=== PATIENT | female | born 1950 | race Caucasian/White ===

== ENCOUNTER → 2017-07-31 14:55 | Outpatient (CLI) | payer MEDICARE, OTHER, SELFPAY ==
[2017-07-31 15:51] LABS: Absolute Lymphocyte Count 1.14 X10^3/ul (0.83-4.51); Absolute Neutrophil Count 1.9 X10^3/uL (2.0-7.7); Basophil# 0.01 X10^3/uL; Basophil% 0.3 % (0-1); Eosinophil# 0.09 X10^3/uL; Eosinophils% 2.6 % (0-5); Hematocrit 37.8 % (37-47); Hemoglobin 11.8 g/dl (12.0-15.0); Immature Platelet Fraction 3.1 % (1.0-7.9); Lymphocyte # 1.14 X10^3/ul (4.0); Lymphocyte % 33.5 % (19-41); Mean Corp Hgb Conc 31.2 g/gl (32-36); Mean Corpuscular Hgb 26.2 pg (27.0-32.0); Mean Corpuscular Volume 83.8 fL (81-99); Mean Platelet Vol. 10.5 fl (6.2-12.0); Monocyte# 0.28 X10^3/uL; Monocyte% 8.2 % (0-10); Neutrophil # 1.88 X10^3/uL (2.7-7.7); Neutrophil % 55.4 % (47-70); Platelet Count 173 K/mm3 (150-450); RBC Distribution Width CV 14.1 % (11.6-14.6); RBC Distribution Width SD 43.4 fl (35.1-43.9); RET-HE 26.1 pg (30-35); Red Blood Count 4.51 M/mm3 (4.2-5.4); Reticulocyte Count 1.19 % (0.5-1.5); White Blood Count 3.4 K/mm3 (4.4-11.0)
[2017-07-31 15:57] LABS: POSITIVE COUNT NO; POSITIVE DIFFERENTIAL NO; POSITIVE MORPHOLOGY NO
[2017-07-31 16:16] LABS: Ferritin 13 ng/mL (8-252); Iron 48 ug/dL (50-170)
[2017-08-01 10:00] LABS: Vitamin B12 308 pg/mL (211-911)
== END ==
PROVIDERS: Family Provider Family Medicine; PCP Family Medicine; Visit Provider Family Medicine
DX: D64.9 Anemia, unspecified (principal)
CPT/HCPCS: 36415; 82607; 82728; 82746; 83540; 85025; 85045

== ENCOUNTER → 2017-12-01 08:52 | Outpatient (CLI) | payer MEDICARE, OTHER, SELFPAY ==
[2017-12-01 10:39] LABS: Erythrocyte Sedimentation Rate 24 mm/hr (0-30)
[2017-12-01 10:41] LABS: Absolute Lymphocyte Count 1.07 X10^3/ul (0.83-4.51); Absolute Neutrophil Count 2.1 X10^3/uL (2.0-7.7); Basophil# 0.02 X10^3/uL; Basophil% 0.6 % (0-1); Eosinophils% 2.8 % (0-5); Hematocrit 37.9 % (37-47); Hemoglobin 11.9 g/dl (12.0-15.0); Lymphocyte # 1.07 X10^3/ul (4.0); Lymphocyte % 29.7 % (19-41); Mean Corp Hgb Conc 31.4 g/gl (32-36); Mean Corpuscular Hgb 27.1 pg (27.0-32.0); Mean Corpuscular Volume 86.3 fL (81-99); Mean Platelet Vol. 10.8 fl (6.2-12.0); Monocyte# 0.29 X10^3/uL; Monocyte% 8.1 % (0-10); Neutrophil # 2.12 X10^3/uL (2.7-7.7); Neutrophil % 58.8 % (47-70); Platelet Count 199 K/mm3 (150-450); RBC Distribution Width CV 13.3 % (11.6-14.6); RBC Distribution Width SD 42.1 fl (35.1-43.9); Red Blood Count 4.39 M/mm3 (4.2-5.4); White Blood Count 3.6 K/mm3 (4.4-11.0)
[2017-12-01 10:47] LABS: Vitamin D,25 Hydroxy 20.8 ng/mL (29.95-100.01)
[2017-12-01 10:49] LABS: POSITIVE DIFFERENTIAL NO; POSITIVE MORPHOLOGY NO
[2017-12-01 11:06] LABS: ALB/GLOB Ratio 0.8 RATIO (0.9-2.4); AST(SGOT) 18 U/L (15-37); Alanine Aminotransfer ALT/SGPT 21 U/L (13-56); Albumin, Serum 3.2 g/dL (3.2-5.0); Alkaline Phosphatase 92 U/L (45-117); Anion Gap 12 (5-15); BUN 14 mg/dL (7-18); BUN/Creat Ratio 13.9 RATIO (10-20); Calcium,Total 8.9 mg/dL (8.5-10.1); Chloride 105 mmol/L (98-107); Creatinine, Serum 1.01 mg/dL (0.55-1.02); EST Glomerular Filtration Rate 58 mL/min (>60); Est Glom Filt Rate - Afr Amer 71 mL/min (>60); Glucose 89 mg/dL (74-106); Potassium 4.1 mmol/L (3.5-5.1); Protein, Total 7.2 g/dL (6.4-8.2); Sodium Level 143 mmol/L (136-145); Thyroid Stim Hormone (TSH) 2.22 uIU/mL (0.358-3.74)
== END ==
PROVIDERS: Family Provider Family Medicine; PCP Family Medicine; Visit Provider Family Medicine
DX: M06.9 Rheumatoid arthritis, unspecified (principal); Z13.29 Encounter for screening for other suspected endocrine disorder
CPT/HCPCS: 36415; 80053; 82306; 84443; 85025; 85652; 86431

== ENCOUNTER 2018-07-04 11:16 | Emergency (ER) | payer MEDICARE, OTHER, SELFPAY ==
[2018-07-04 11:17] VITALS: BP 161/84; PULSE 53; RESP 16; TEMP 36.8; O2SAT 99; BMI 34.0
--- NOTE | 2018-07-04 11:30 | RAD_ITS ---
STUDY: X-RAY CHEST REASON FOR EXAM: Female, 68 years old. Cough. TECHNIQUE: PA and lateral views of the chest. COMPARISON: PA and lateral chest x-ray March 31, 2017. FINDINGS: Focal, transverse oriented subsegmental atelectasis or scarring seen in the anterior right midlung. The lungs are otherwise clear and expanded. There is no demonstrated pleural abnormality. Normal size heart. Normal mediastinum and genaro. Normal visualized pulmonary arteries. There is stable atherosclerotic calcification of the aortic arch. There are stable multilevel degenerative changes of the visualized thoracic spine. 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 There is no demonstrated abnormality of the visualized soft tissue structures of the upper abdomen. RAD/Chest PA and Lateral IMPRESSION: Minor subsegmental atelectasis or scarring in the anterior right midlung. No pneumonic infiltrate or CHF. Electronically Signed: Eben Recio MD at 12:40 EDT , Service support ,
--- NOTE | 2018-07-04 11:30 | EKG12_ITS ---
Test Reason : COUGH Blood Pressure : / mmHG Vent. Rate : 051 BPM Atrial Rate : 051 BPM P-R Int : 138 ms QRS Dur : 084 ms QT Int : 448 ms P-R-T Axes : 050 060 058 degrees QTc Int : 412 ms Sinus bradycardia Otherwise normal ECG Confirmed by COSME BERRIOS, KAMILLE ([id number]), image editor GRACE COHN ([id number]) on 07/06/2018 11:24:28 AM Referred By: MISAEL Confirmed By:KAMILLE AGUIAR MD
--- NOTE | 2018-07-04 11:33 | ED.VISSUMM ---
- ER Visit Summary Date of Service: 07/04/18 Chief Complaint: Cough and shortness of breath History of Present Illness: The patient is a 68 F who was seen in urgent care 2 days ago. 5 days ago she had developed fever up to 104. She had some slight congestion so was given a course of Augmentin for sinus infection. Her fever has improved. Patient states she still has significant congestion, now worse in her chest with some chest heaviness. She has nonproductive cough. Physical Examination: Blood pressure is 161/84, temperature 98.2, heart rate 53, respiratory rate 16, pulse ox 99% on room air. Patient sitting upright in bed no acute distress. She speaking full sentences. Head neck examination was TMs to be clear bilaterally. Posterior pharynx is unremarkable. She does have bilateral anterior cervical lymphadenopathy. Heart is regular rate and rhythm. Lungs sounds are diminished throughout. She has end expiratory wheezes on the right. Abdomen is soft and nontender. Test Results: Two-view chest x-ray shows minor subsegmental atelectasis or scarring in the anterior right midlung. There is no evidence of acute infiltrate or CHF. EKG is sinus bradycardia 51 bpm. Emergency Department Course and Treatment: Patient received a cycle of aerosols along with p.o. prednisone. On repeat evaluation she does feel slightly improved. On repeat auscultation she does have improved air movement. Patient will continue her course of antibiotics. We will add Mucinex and steroids. She will continue her MDI at home. Treatment Plan: [] Disposition: Discharge Impression: 1. Bronchitis 2. COPD This note was generated with [employer] dictation software. It may contain incorrect words, spelling, and punctuation that were not noted in review of the chart prior to signing ED Disposition - Plan for ED Patient: Referrals: Jd Lozano MD [Primary Care Provider] -
[2018-07-04] MEDS: Albuterol 2.5 MG/3 ML VIAL.NEB. INHALATION ×2 (11:48)
[2018-07-04] MEDS: Ipratropium/Albuterol Sulfate 3 ML AMPUL.NEB INHALATION (11:48)
[2018-07-04 12:15] VITALS: PULSE 58; RESP 18
[2018-07-04] MEDS: predniSONE 20 MG Tablet 60 MG PO (12:23)
--- NOTE | 2018-07-04 13:03 | ED.DEP ---
ED Disposition - Plan for ED Patient: Disposition: Home or Assisted Living Instructions: ED Upper Resp Infec Abx Tx Prescriptions: Prednisone 10 mg PO UD #33 tablet Guaifenesin [Mucinex] 1,200 mg PO BID PRN #10 tbmp.12hr PRN Reason: Congestion Referrals: Jd Lozano MD [Primary Care Provider] - 1 Week
[2018-07-04 13:08] VITALS: PULSE 66; RESP 17; O2SAT 96
--- NOTE | 2018-07-04 13:08 | ED.RN ---
DISCHARGE INSTRUCTIONS GIVEN TO AND REVIEWED WITH PATIENT, PATIENT DENIES QUESTIONS OR CONCERNS AND VOICES UNDERSTANDING OF DISCHARGE INSTRUCTIONS. PT AMBULATES OUT OF ROOM WITHOUT DIFFICULTY.
== END 2018-07-04 13:09 | disposition home or self-care (01) ==
PROVIDERS: Emergency Provider Emergency Medicine; Family Provider Family Medicine; PCP Family Medicine
DX: J44.9 Chronic obstructive pulmonary disease, unspecified (principal); J20.9 Acute bronchitis, unspecified; I47.1 Supraventricular tachycardia; K21.9 Gastro-esophageal reflux disease without esophagitis; Z79.899 Other long term (current) drug therapy
CPT/HCPCS: 71046; 93005; 94640; 99283

== ENCOUNTER 2019-02-26 23:22 | Emergency (ER) | payer MEDICARE, OTHER, SELFPAY ==
[2018-10-27 09:34] VITALS: BMI 34.0
[2019-02-26 23:23] VITALS: BP 128/61; PULSE 67; RESP 24; TEMP 36.7; O2SAT 96; BMI 34.1
[2019-02-26 23:39] VITALS: TEMP 36.7; O2SAT 96
--- NOTE | 2019-02-26 23:44 | RAD_ITS ---
STUDY: X-RAY CHEST REASON FOR EXAM: Female, 69 years old. Cough getting worse with shortness of breath. TECHNIQUE: Single AP portable view of the chest. COMPARISON: 07/04/2018. FINDINGS: The lungs are clear and expanded. There is no demonstrated pleural abnormality. Normal size heart. Normal mediastinum and genaro. Normal visualized pulmonary arteries. There is atherosclerotic calcification of the aortic arch with tortuosity. There are diffuse degenerative changes of the visualized thoracic spine. There is degenerative osteoarthritis of the bilateral shoulders. There is no demonstrated abnormality of the visualized soft tissue structures of the upper abdomen. RAD/Chest 1 View (Portable) IMPRESSION: No acute cardiopulmonary disease. Electronically Signed: Shireen Neil MD at 0:29 EST , Service support ,
[2019-02-26 23:54] LABS: Absolute Lymphocyte Count 1.88 X10^3/uL (0.83-4.51); Absolute Neutrophil Count 3.5 X10^3/uL (2.0-7.7); Basophil# 0.05 X10^3/uL; Basophil% 0.8 % (0-1); Eosinophil# 0.15 X10^3/uL; Eosinophils% 2.5 % (0-5); Hematocrit 38.4 % (37-47); Hemoglobin 12.4 g/dL (12.0-15.0); Lymphocyte # 1.88 X10^3/ul (4.0); Lymphocyte % 31.2 % (19-41); Mean Corp Hgb Conc 32.3 g/dL (32-36); Mean Corpuscular Hgb 28.4 pg (27.0-32.0); Mean Corpuscular Volume 87.9 fL (81-99); Mean Platelet Vol. 10.9 fl (6.2-12.0); Monocyte# 0.42 X10^3/uL; NRBC Flagged by Analyzer 0 % (0-5); Neutrophil # 3.49 X10^3/uL (2.7-7.7); Platelet Count 232 K/mm3 (150-450); RBC Distribution Width CV 13.1 % (11.6-14.6); RBC Distribution Width SD 41.9 fl (35.1-43.9); Red Blood Count 4.37 M/mm3 (4.2-5.4)
[2019-02-27 00:02] LABS: Anion Gap 6 (5-15); BUN 17 mg/dL (7-18); BUN/Creat Ratio 17.1 RATIO (10-20); Calcium,Total 8.8 mg/dL (8.5-10.1); Chloride 108 mmol/L (98-107); EST Glomerular Filtration Rate 59 mL/min (>60); Est Glom Filt Rate - Afr Amer 72 mL/min (>60); Estimated Creatinine Clearance 57.05 ml/min; Glucose 122 mg/dL (74-106); Potassium 3.8 mmol/L (3.5-5.1); Sodium Level 141 mmol/L (136-145)
[2019-02-27 00:49] VITALS: O2SAT 92
[2019-02-27 00:50] VITALS: BP 140/106; PULSE 67; RESP 16; O2SAT 97
--- NOTE | 2019-02-27 00:50 | ED.DEP ---
ED Disposition - Plan for ED Patient: Instructions: BRONCHITIS, No Antibiotic (Adult) Prescriptions: Benzonatate [Tessalon Perle] 200 mg PO TID PRN PRN #20 capsule PRN Reason: Cough Referrals: Jd Lozano MD [Primary Care Provider] -
--- NOTE | 2019-02-27 00:52 | ED.DCSUM_ITS ---
- ER Visit Summary Date of Service: 02/27/19 Chief Complaint: Cough History of Present Illness: The patient is a 69 F presenting with cough, URI symptoms. She states this has been ongoing for the past 1.5 weeks. She initially went to urgent care and was advised this is likely viral. She followed up with her primary care physician on Friday. She was put on Augmentin for sinusitis. She states she had mild diarrhea which has improved. She states tonight she was coughing so hard she had posttussive emesis. She denies chest pain. Denies fever. Denies other complaints. Physical Examination: Vitals are stable. Patient is afebrile. Alert no acute distress. HEENT exam is unremarkable. Neck is supple. Lungs are clear and equal bilaterally. Heart is regular rate and rhythm. Abdomen is soft nontender nondistended. Extremities are unremarkable. Skin is warm and dry. No focal neurologic deficit. Remainder of exam is unremarkable. Emergency Department Course and Treatment: CBC, chemistries unremarkable. Infl uenza negative. Chest x-ray shows no acute cardiopulmonary disease. With ambulation her pulse ox remains 97% on room air. Patient is given prescription for Tessalon Perles. She is advised to follow-up with her primary care physician as scheduled. Advised return to ED for worsening complaints. Disposition: Discharge home Impression: Bronchitis This note was generated with [employer] dictation software. It may contain incorrect words, spelling, and punctuation that were not noted in review of the chart prior to signing ED Disposition - Plan for ED Patient: Instructions: BRONCHITIS, No Antibiotic (Adult) Prescriptions: Benzonatate [Tessalon Perle] 200 mg PO TID PRN PRN #20 cap PRN Reason: Cough Prescription Printed Referrals: Jd Lozano MD [Primary Care Provider] -
== END 2019-02-27 01:03 | disposition home or self-care (01) ==
LOC: ED 23:51
PROVIDERS: Emergency Provider Emergency Medicine; Family Provider Family Medicine; PCP Family Medicine
DX: J40 Bronchitis, not specified as acute or chronic (principal); M06.9 Rheumatoid arthritis, unspecified; K21.9 Gastro-esophageal reflux disease without esophagitis; Z87.891 Personal history of nicotine dependence; Z86.73 Personal history of transient ischemic attack (TIA), and cerebral infarction without residual deficits
CPT/HCPCS: 71045; 80048; 85025; 87804; 99283; A4216

== ENCOUNTER → 2019-10-06 | Outpatient (CLI) | payer MEDICARE, OTHER, SELFPAY ==
[2019-10-06 10:42] LABS: Absolute Lymphocyte Count 1.09 X10^3/uL (0.83-4.51); Absolute Neutrophil Count 2.5 X10^3/uL (2.0-7.7); Basophil# 0.03 X10^3/uL; Basophil% 0.7 % (0-1); Eosinophil# 0.08 X10^3/uL; Eosinophils% 1.9 % (0-5); Hematocrit 37.8 % (37-47); Hemoglobin 11.6 g/dL (12.0-15.0); Lymphocyte # 1.09 X10^3/ul (4.0); Lymphocyte % 26.1 % (19-41); Mean Corp Hgb Conc 30.7 g/dL (32-36); Mean Corpuscular Hgb 27.4 pg (27.0-32.0); Mean Corpuscular Volume 89.2 fL (81-99); Mean Platelet Vol. 10.8 fl (6.2-12.0); Monocyte# 0.43 X10^3/uL; Monocyte% 10.3 % (0-10); NRBC Flagged by Analyzer 0 % (0-5); Neutrophil # 2.53 X10^3/uL (2.7-7.7); Neutrophil % 60.8 % (47-70); Platelet Count 193 K/mm3 (150-450); RBC Distribution Width CV 13.2 % (11.6-14.6); RBC Distribution Width SD 42.7 fl (35.1-43.9); Red Blood Count 4.24 M/mm3 (4.2-5.4); White Blood Count 4.2 K/mm3 (4.4-11.0)
[2019-10-06 10:45] LABS: Erythrocyte Sedimentation Rate 13 mm/hr (0-30)
[2019-10-06 10:55] LABS: AST(SGOT) 19 U/L (15-37); Alanine Aminotransfer ALT/SGPT 21 U/L (13-56); Albumin, Serum 3.2 g/dL (3.2-5.0); BUN 14 mg/dL (7-18); CRP < 2.90 mg/L (0.0-3.0); Creatinine, Serum 0.82 mg/dL (0.55-1.02); EST Glomerular Filtration Rate 74 mL/min (>60); Est Glom Filt Rate - Afr Amer 89 mL/min (>60); Uric Acid 6.7 mg/dL (2.6-6.0)
[2019-10-08 00:46] LABS: ANTINUCLEAR ANTIBODIES DIRECT Negative (Negative)
[2019-10-08 04:13] LABS: CCP IgG Antibodies 7 units (0-19)
== END | disposition home or self-care (01) ==
LOC: MTLAB 09:00
PROVIDERS: PCP Family Medicine; Referring Provider Internal Medicine Rheumatology; Visit Provider Internal Medicine Rheumatology
DX: M06.00 Rheumatoid arthritis without rheumatoid factor, unspecified site (principal); M15.0 Primary generalized (osteo)arthritis
CPT/HCPCS: 36415; 82040; 82565; 84450; 84460; 84520; 84550; 85025; 85652; 86038; 86140; 86200; 86431

== ENCOUNTER 2019-10-14 08:30 | Outpatient (RCR) | payer MEDICARE, OTHER, SELFPAY ==
--- NOTE | 2019-09-14 10:15 | HP.PTEVAL ---
Patient's Visit Information KIKO QUINN is a 69 year old F referred to Physical Therapy by Dr. Jd Lozano MD with a diagnosis of L POST SHLD PAIN. Date of Evaluation: 09/14/19 Physical Therapist: Monika Olea PT, Cert MDT - Visit Plan Frequency: 2-3x /Week Duration: 4-6 Weeks Plan: NO TRACTION. LEFT SCAPULAR/CERVICAL REGION US AND STM. POSTURE CORRECTION/STRENGTHENING, INSTRUCTION IN APPROPRIATE BODY MECHANICS AND ACTIVITY MODIFICATIONS. MARTHA UE ROM, STRETCHING AND STRENGTHENING. HEP INSTRUCTION TOLERATED: REP RET IN SITTING. REP RET IN LYING. SCAP SQUEEZES. DEEP NECK FLEXOR LIFT. PRONE W'S. UE WALL SLIDES. PRONE ROWS. UE TBAND WALL WALKS. ANTERIOR/MIDDLE SCALENE STRETCH. UPPER TRAP STRETCH. LEVATOR SCAPULAE STRETCH. CHEST/PEC MAJOR AND MINOR STRETCH - Subjective Diagnosis: L POST SHLD PAIN, L AC JT TENDERNESS, H/O RA, NO TRAUMA. 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 GOING BACK FRIDAY FOR ONE DAY A WEEK TO SEE HOW IT GOES. LIKES TO KNIT. Disability: NO. Present symptoms: PAIN UNDER THE SHOULDER BLADE ON THE LEFT. PATIENT DENIES LEFT UE NUMBNESS AND TINGLING. Present since: STARTED ABOUT A WEEK AGO. Pain Scale: Worst - 6/10 Least - 0/10. Currently: 0/10. Commenced as a result of: WOKE UP WITH IT Friday09/05/19. Symptoms at onset: LEFT SHOULDER BLADE. AT ONSET THE PAIN WAS SO BAD IT TOOK HER BREATH AWAY. Worse: LYING ON LEFT SIDE. Better: CHANGE OF POSITION. Disturbed sleep: YES. Previous history/Previous treatment: UNREMARKABLE. This episode: UNREMARKABLE. Dizziness: NO. Tinnitis: NO. Nausea: NO. Shortness of Breath: NO. Difficulty Swollowing: NO. Gait: NORMAL. RA. USES CANE NEEDED. NO NEW CHANGES TO GAIT. Accidents: NO. Unexplained weight loss: NO. Imaging: NO. PMH/Recent major surgery: RA, IRREGULAR HEART BEAT, ACID REFLUX - Objective Sitting Posture/Standing Posture: POOR. FH, RS'S, INCREASED KYPHOSIS. Active Correction of posture: NE. Other Observations: INDEP GAIT INTO PT WITHOUT ANY ASSISTIVE DEVICES. PATIENT IS PLEASANT AND COOPERATIVE TO WORK WITH. Motor deficit: MARTHA UE'S GROSSLY 5/5 WITH MMT'ING EXCEPT MARTHA SCAPULAR MUSCULATURE 4-/5. RIGHT HANDED WITH MARTHA INSURANCE LOSS CONTROL SURVEYOR STRENGTH 25 LBS. Sensory deficit: MARTHA UE LIGHT TOUCH SENSATION INTACT AND SYMMETRICAL. ROM deficit: MARTHA UE'S WFL. Reflexes: NT. Dural Signs: NEGATIVE MARTHA UE'S. Cervical Mvmt Loss: Flex: NIL. Pro: NIL. Ext: MOD. Ret: ABHI. RSB: NIL. LSB: NIL. R Rot: NIL. L Rot: MIN. Postural strength: POOR. Palpation: NO ACUTE TENDERNESS WITH PALPATION OF MARTHA SHOULDER, UPPER BACK OR CERVICAL REGIONS TODAY BUT SHE REPORTS IT REALLY HURT WHEN DR. LOZANO PALPATED HER SHOULDER BLADE FRIDAY. OTHER: GENTLE SEATED CERVICAL DISTRACTION TESTING - NO EFFECT. 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 PLANS TO TRY TO RETURN TO WORK FRIDAY. TREATMENT: NEUROMUSCULAR REEDUCATION - RETRAINING OF MVMT AND POSTURE FOR SITTING, LYING AND STANDING ACTIVITIES. - Goals Goal 1:: DECREASE C/O LEFT SCAPULAR PAIN Goal Time Frame: 4-6 Weeks Goal 2:: IMPROVE SLEEP FUNCTION Goal Time Frame: 4-6 Weeks Goal 3:: INSTRUCT IN PROPHYLAXIS Goal Time Frame: 4-6 Weeks - Rehabilitation Potential Rehabilitation Potential: Good - Anticipated Interventions Patient/Client Instruction: Educate patient on: Condition, Plan of Care, Risk Factors, Benefits of Fitness Program For the Purpose of:: To improve self management Therapeutic Exercise to Include: Strength training, Body mechanics, Postural training, In an aquatic setting, Scapular Strength/Stabilization For the Purpose of:: To decrease pain, To increase ROM, To improve muscle performance and motor function, To increase tolerance to activity/condition/position, To improve ability of physical actions for home/community/work/leisure Manual Therapy Techniques to Include: Soft tissue mobilization For the Purpose of:: To decrease pain, To improve nutrient delivery to tissue Cryotherapy (ice pack, ice massage): Yes Thermo therapy (hot pack): Yes Ultrasound (thermal/non thermal): Yes For the Purpose of:: To decrease pain, To improve nutrient delivery to tissue Thank you for the opportunity to evaluate your patient. For Medicare and Medicare HMO plans, please review the plan of care and approve it. It will need to be FAXED BACK to us at [phone] for Medicare purposes. For Medicare only, by signing this I certify the plan of care. Please let me know if there are questions or concerns regarding this plan of care. Physician Signature: Date:
--- NOTE | 2019-10-14 08:59 | HP.PTDCSUM ---
It has been my pleasure to treat KIKO QUINN referred by Dr. Jd Lozano MD, with the diagnosis of L POST SHLD PAIN for a total of 9 visit(s). Discharge Date: 10/14/19 Please see the following information for a summary of their discharge status. Subjective: PATIENT REPORTS SHE IS STILL DOING GOOD. NO PAIN. DOING THE HOME EX'S BUT DOES NOT HAVE A PLACE TO LIE DOWN TO DO NEW EX'S GIVEN LAST VISIT. ABLE TO SLEEP ON LEFT SIDE NOW. % Improvement: 100 Objective/Function: PATIENT WAS SEEN TODAY FOR RE-ASSESSMENT OF PROGRESS TOWARD THE SET PT GOALS AND THE NEED FOR FURTHER PHYSICAL THERAPY VS READINESS FOR DISCHARGE. UPON EXAM TODAY ALL PT GOALS HAVE BEEN MET AND PATIENT IS INDEP WITH A HEP. MODIFICATIONS TAUGHT OF NEW EX'S WITH THEM BEING PERFORMED IN STANDING WITH YELLOW TBAND. Goal 1:: DECREASE C/O LEFT SCAPULAR PAIN Goal Progress: Goal Met Goal 2:: IMPROVE SLEEP FUNCTION Goal Progress: Goal Met Goal 3:: INSTRUCT IN PROPHYLAXIS Goal Progress: Goal Met Plan: D/C. PATIENT AGREEABLE. If there are questions or concerns regarding this patient's physical therapy, please feel free to call me at [phone]. Thank you for the referral of this patient. Sincerely, Monika Olea, PT, Cert MDT
== END 2019-10-14 19:00 | disposition home or self-care (01) ==
LOC: PT 08:30
PROVIDERS: PCP Family Medicine; Referring Provider Family Medicine; Visit Provider Family Medicine
DX: M25.512 Pain in left shoulder (principal); M06.9 Rheumatoid arthritis, unspecified
CPT/HCPCS: 97110; 97112; 97162; 97164; 97530

== ENCOUNTER → 2019-11-08 08:40 | Outpatient (CLI) | payer MEDICARE, OTHER, SELFPAY ==
[2019-11-02 09:58] VITALS: BMI 34.2
[2019-11-08 09:57] LABS: Absolute Neutrophil Count 4.2 X10^3/uL (2.0-7.7); Basophil# 0.04 X10^3/uL; Basophil% 0.7 % (0-1); Eosinophil# 0.07 X10^3/uL; Eosinophils% 1.2 % (0-5); Hematocrit 36.6 % (37-47); Hemoglobin 11.2 g/dL (12.0-15.0); Lymphocyte % 15.5 % (19-41); Mean Corp Hgb Conc 30.6 g/dL (32-36); Mean Corpuscular Hgb 27.3 pg (27.0-32.0); Mean Corpuscular Volume 89.1 fL (81-99); Mean Platelet Vol. 10.9 fl (6.2-12.0); Monocyte# 0.62 X10^3/uL; Monocyte% 10.7 % (0-10); NRBC Flagged by Analyzer 0 % (0-5); Neutrophil # 4.17 X10^3/uL (2.7-7.7); Neutrophil % 71.6 % (47-70); Platelet Count 195 K/mm3 (150-450); RBC Distribution Width CV 13.4 % (11.6-14.6); RBC Distribution Width SD 43.7 fl (35.1-43.9); Red Blood Count 4.11 M/mm3 (4.2-5.4); White Blood Count 5.8 K/mm3 (4.4-11.0)
[2019-11-08 10:25] LABS: ALB/GLOB Ratio 0.8 RATIO (0.9-2.4); AST(SGOT) 15 U/L (15-37); Alanine Aminotransfer ALT/SGPT 18 U/L (13-56); Albumin, Serum 3.2 g/dL (3.2-5.0); Alkaline Phosphatase 104 U/L (45-117); Anion Gap 3 (5-15); BUN 16 mg/dL (7-18); BUN/Creat Ratio 17.5 RATIO (10-20); Calcium,Total 8.9 mg/dL (8.5-10.1); Chloride 109 mmol/L (98-107); Creatinine, Serum 0.92 mg/dL (0.55-1.02); EST Glomerular Filtration Rate 65 mL/min (>60); Est Glom Filt Rate - Afr Amer 79 mL/min (>60); Glucose 92 mg/dL (74-106); Lipase 59 U/L (73-393); Potassium 3.9 mmol/L (3.5-5.1); Protein, Total 7.2 g/dL (6.4-8.2); Sodium Level 140 mmol/L (136-145)
== END ==
PROVIDERS: PCP Family Medicine; Referring Provider Family Medicine; Visit Provider Family Medicine
DX: R10.11 Right upper quadrant pain (principal)
CPT/HCPCS: 36415; 80053; 83690; 85025; 86140

== ENCOUNTER → 2019-11-10 10:36 | Outpatient (CLI) | payer MEDICARE, OTHER, SELFPAY ==
[2019-11-02 09:58] VITALS: BMI 34.2
--- NOTE | 2019-11-10 10:39 | US_ITS ---
We are attempting to reach an attending provider to discuss findings. An addendum with communication details will be sent when the communication is complete. STUDY: ABDOMINAL ULTRASOUND - RIGHT UPPER QUADRANT REASON FOR VISIT: Female, 69 years old right upper quadrant pain. TECHNIQUE: Ultrasound evaluation of the right upper quadrant was performed with real-time and static lofton-scale imaging. TECHNICAL QUALITY: Adequate. COMPARISON: None. FINDINGS: Liver: The liver measures 14.8 cm. There is normal echogenicity of the liver. The bile ducts are within normal limits. There is hepatic color flow. The direction of portal flow is hepatopetal. There is no demonstrated mass lesion. Gallbladder: Normal distended gallbladder. The gallbladder wall measures 3 mm. There is a positive sonographic Alvarado''s sign. There is no pericholecystic fluid. There are multiple echogenic structures within the gallbladder, consistent with multiple gallstones. Common Bile Duct (C.B.D.): The common bile duct measures 6 mm. No visualized filling defects. Pancreas: Normal size of the head, body and tail of the pancreas. There is normal echogenicity of the pancreas. There is no demonstrated pancreatic mass or cyst. Right Kidney: Normal size of the right kidney. The right kidney measures 10.4 cm. Normal renal cortex. The right cortex measures 1.4 cm. There is no demonstrated renal mass or cyst. There is no right hydronephrosis. US/Abdomen Limited IMPRESSION: 1. Gallstones with positive sonographic Alvarado''s sign. The findings suggest acute cholecystitis. 2. Otherwise normal right upper quadrant abdominal ultrasound. Electronically Signed: Dat Small DO at 16:28 EDT Tel [phone], Service support ,
== END ==
PROVIDERS: PCP Family Medicine; Referring Provider Family Medicine; Visit Provider Family Medicine
DX: R10.11 Right upper quadrant pain (principal)
CPT/HCPCS: 76705

== ENCOUNTER 2019-11-10 17:30 | Emergency (ER) | payer MEDICARE, OTHER, SELFPAY ==
[2019-11-02 09:58] VITALS: BMI 34.2
[2019-11-10 17:32] VITALS: BP 177/78; PULSE 60; RESP 16; TEMP 36.6; O2SAT 98; BMI 34.5
--- NOTE | 2019-11-10 17:56 | ED.VIS.GEN ---
History of Present Illness Chief Complaint: Abn Labs Detail of Chief Complaint: Abnormal ultrasound Onset: - - Patient with no GI symptoms or food intolerance Context: - - Unknown Quality: Denies any pain or food intolerance Location: Reported pain during ultrasound of right upper quadrant Current Severity: No symptoms Maximum Severity: Not applicable Worsened by: Not applicable Relieved by: Not applicable Associated Symptoms: None Narrative: Patient is an elderly woman with an outpatient ultrasound that revealed cholelithiasis. Radiologist put in the impression suspect acute cholecystitis because she had a sonographic Alvarado sign. Patient denies any intolerance to greasy or fried foods. She denies nausea or vomiting. She does have history of GERD. She denies cardiac respiratory symptoms. She denies fever chills. She denies dark-colored urine or turning yellow. Patient did have outpatient labs. White count and differential are normal. Liver enzymes and lipase are normal. Prior similar symptoms: No Recent Illness/Hospitalization: No - Past Medical History (1) Paroxysmal supraventricular tachycardia Status: Chronic Comment: RFA 03/2003 (2) GERD (gastroesophageal reflux disease) Status: Acute Past Medical History - Allergies and Home Meds Allergies/Adverse Reactions: Allergies doxycycline Adverse Reaction (Verified 11/10/19 17:32) PT UNSURE OF REACTION Primary Care Physician: Jd Lozano MD [Primary Care Provider] - Prior records reviewed: Yes Surgical History: - - Breast biopsy bilaterally, bilateral tubal ligation, left knee arthroscopic surgery, left foot surgery. Lives: Spouse/ Significant Other Smoking Status: Former smoker Alcohol: None Drugs: None Review of Systems General: Denies: Chills, Fever, Malaise, Subjective, Sweats ENT: Denies: Rhinorrhea, Sore throat Cardiovascular: Denies: Chest pain, Palpitations Respiratory: Denies: Dyspnea, Cough, Dyspnea on exertion Gastrointestinal: Denies: Abdominal pain, Nausea, Vomiting, Diarrhea, Melena, Hematochezia Genitourinary: Denies: Dysuria, Hematuria, Frequency Musculoskeletal: Denies: Myalgias, Arthralgias, Neck pain, Back pain, Swelling, Extremity Pain, -, - Skin: Denies: Rash, Wounds Hematologic: Denies: Easy bruising Allergy: Denies: Uticaria Physical Exam Vital Signs/Narrative: Vital Signs Temp Pulse Resp BP Pulse Ox 11/10/19 17:32 97.9 F 60 16 177/78 H 98 Inital Vital Signs reviewed: Yes General: Well nourished, Well developed, Obese, No Acute Distress Head: Normocephalic, Atraumatic Eyes: Perrl, EOMI. Negative for: Pale conjunctiva, Scleral icterus ENT: Moist mucous membranes, No rhinorrhea, TM's clear Neck: Supple, Nontender, No lymphadenopathy, No JVD Cardiovascular: Regular rate, Regular rhythm, No murmurs, Normal S1, Normal S2 Respiratory: No distress, CTA bilaterally, Chest nontender Abdomen: Soft, Nontender, Nondistended, Normal bowel sounds, No masses Back: Nontender, Normal Inspection Extremities: Nontender, No edema Skin: Normal color, No rash Neurological: Alert, Oriented x3, Cranial nerves II-XII grossly intact, Normal Strength, Normal Sensation Psychological: Normal affect, Normal Mood Diagnostic/Tx/Re-eval - Medical Decision Making Patient with evidence of cholelithiasis. There is no pericholecystic fluid. Laboratory values are normal. On my examination patient does not have clinical Alvarado sign. She denies intolerance to greasy or fried foods. Will refer patient to Dr. Mervin Lu for outpatient follow-up. The ultrasound report was read in its entire tear. In the body of the note there is no mention of acute cholecystitis. This conclusion was drawn because patient had a sonographic Alvarado sign. ED Disposition - Plan for ED Patient: Disposition: Home or Assisted Living Diagnosis: Cholelithiasis Instructions: Gallstones Referrals: Jd Lozano MD [Primary Care Provider] - Mervin Lu MD [STAFF PHYSICIAN] - 1-2 Weeks Additional Instructions: We will refer to Dr. Mrevin Lu who is on-call for general surgery.
== END 2019-11-10 18:47 | disposition home or self-care (01) ==
LOC: ED 18:11
PROVIDERS: Emergency Provider Emergency Medicine; PCP Family Medicine
DX: K80.20 Calculus of gallbladder without cholecystitis without obstruction (principal); E66.9 Obesity, unspecified; R10.11 Right upper quadrant pain; Z87.891 Personal history of nicotine dependence
CPT/HCPCS: 76705; 99282

== ENCOUNTER 2019-11-25 10:42 | Day surgery (SDC) | payer MEDICARE, OTHER, SELFPAY ==
[2019-11-16 15:02] VITALS: BMI 34.5
[2019-11-25 10:56] VITALS: BP 170/74; PULSE 59; RESP 16; TEMP 36.5; O2SAT 100
[2019-11-25] MEDS: Lidocaine Jelly 2% 20 ML Syringe (URO-JET) 20 APPLIC (11:20)
== END 2019-11-25 11:20 | disposition home or self-care (01) ==
LOC: EN 10:44
PROVIDERS: PCP Family Medicine; Referring Provider Surgery; Visit Provider Surgery
PROC: F00ZJWZ Instrumental Swallowing and Oral Function Assessment using Swallowing Equipment (ICD-10-PCS; CPT 43235; principal; 2019-11-25 10:55)
DX: K21.9 Gastro-esophageal reflux disease without esophagitis (principal); Z11.59 Encounter for screening for other viral diseases; K80.10 Calculus of gallbladder with chronic cholecystitis without obstruction; Z87.891 Personal history of nicotine dependence; J44.9 Chronic obstructive pulmonary disease, unspecified; D50.9 Iron deficiency anemia, unspecified; E66.9 Obesity, unspecified; Z79.899 Other long term (current) drug therapy
CPT/HCPCS: 91010; 87635; 94799; U0003

== ENCOUNTER → 2019-12-22 07:19 | Outpatient (CLI) | payer MEDICARE, OTHER, SELFPAY ==
[2019-11-16 15:02] VITALS: BMI 34.5
--- NOTE | 2019-12-22 07:22 | BI_ITS ---
MAMMOGRAPHY - BILATERAL SCREENING REASON FOR EXAM: Female, 69 years old. Routine annual screening examination. PERTINENT HISTORY: Mother with breast cancer. Remote right stereotactic and bilateral excisional breast biopsies. TECHNIQUE: Digital bilateral breast verito (3D mammographic acquisition) in the CC and MLO projections. 2-D mediolateral oblique (MLO) and craniocaudad (CC) views of both breasts were obtained. CAD: Full Field Digital Mammography with Computer Added Detection was performed. COMPARISON: Comparison is made with prior examination dated 01/26/2016 and 03/25/2013. FINDINGS: Breast Composition: There are scattered areas of fibroglandular density. There are no dominant masses or suspicious calcifications. Stable benign-appearing bilateral axillary lymph nodes. No other significant abnormalities are identified. There has been no significant change since the prior study. BI/SCREEN MAMM (CAD) W/VERITO BILAT IMPRESSION: Stable bilateral screening mammogram. Yearly follow-up mammogram recommended. (A) ASSESSMENT CATEGORY: BIRADS Category 2: Benign. A letter regarding these results will be sent to the patient by the facility within 30 days. Approximately 10% of breast cancers are not detected by mammography. A normal mammogram should not delay biopsy of a clinically suspicious abnormality. [id number] Electronically Signed: Craig Lindo, at 8:43 EDT , Service support ,
== END ==
PROVIDERS: PCP Family Medicine; Referring Provider Family Medicine; Visit Provider Family Medicine
DX: Z12.31 Encounter for screening mammogram for malignant neoplasm of breast (principal)
CPT/HCPCS: 77063; 77067

== ENCOUNTER → 2020-04-03 08:39 | Outpatient (CLI) | payer MEDICARE, OTHER, SELFPAY ==
[2019-11-16 15:02] VITALS: BMI 34.5
[2020-04-03 09:52] LABS: Absolute Lymphocyte Count 1.14 X10^3/uL (0.83-4.51); Absolute Neutrophil Count 1.9 X10^3/uL (2.0-7.7); Basophil# 0.04 X10^3/uL; Basophil% 1.1 % (0-1); Eosinophil# 0.09 X10^3/uL; Eosinophils% 2.6 % (0-5); Hematocrit 38.2 % (37-47); Hemoglobin 11.6 g/dL (12.0-15.0); Lymphocyte # 1.14 X10^3/ul (4.0); Lymphocyte % 32.5 % (19-41); Mean Corp Hgb Conc 30.4 g/dL (32-36); Mean Corpuscular Hgb 26.3 pg (27.0-32.0); Mean Corpuscular Volume 86.6 fL (81-99); Mean Platelet Vol. 10.9 fl (6.2-12.0); Monocyte% 8.5 % (0-10); NRBC Flagged by Analyzer 0 % (0-5); Neutrophil # 1.93 X10^3/uL (2.7-7.7); Platelet Count 205 K/mm3 (150-450); RBC Distribution Width CV 13.7 % (11.6-14.6); RBC Distribution Width SD 43.2 fl (35.1-43.9); Red Blood Count 4.41 M/mm3 (4.2-5.4); White Blood Count 3.5 K/mm3 (4.4-11.0)
[2020-04-03 10:09] LABS: Vitamin D,25 Hydroxy 14.5 ng/mL
[2020-04-03 10:43] LABS: ALB/GLOB Ratio 0.8 RATIO (0.9-2.4); AST(SGOT) 17 U/L (15-37); Alanine Aminotransfer ALT/SGPT 20 U/L (13-56); Albumin, Serum 3.1 g/dL (3.2-5.0); Alkaline Phosphatase 82 U/L (45-117); Anion Gap 6 (5-15); BUN 16 mg/dL (7-18); BUN/Creat Ratio 16.9 RATIO (10-20); CRP < 2.90 mg/L (0.0-3.0); Calcium,Total 8.9 mg/dL (8.5-10.1); Chloride 108 mmol/L (98-107); Creatinine, Serum 0.95 mg/dL (0.55-1.02); EST Glomerular Filtration Rate 62 mL/min (>60); Est Glom Filt Rate - Afr Amer 76 mL/min (>60); Globulin 3.7 g/dL (2.2-4.2); Glucose 92 mg/dL (74-106); Protein, Total 6.8 g/dL (6.4-8.2); Sodium Level 140 mmol/L (136-145)
== END ==
PROVIDERS: PCP Family Medicine; Referring Provider Family Medicine; Visit Provider Family Medicine
DX: M06.9 Rheumatoid arthritis, unspecified (principal); K21.9 Gastro-esophageal reflux disease without esophagitis; E55.9 Vitamin D deficiency, unspecified
CPT/HCPCS: 36415; 80053; 82306; 83970; 85025; 86140

== ENCOUNTER → 2020-05-24 17:52 | Outpatient (CLI) | payer MEDICARE, OTHER, SELFPAY ==
[2019-11-16 15:02] VITALS: BMI 34.5
== END ==
PROVIDERS: PCP Family Medicine; Referring Provider Family Medicine; Visit Provider Family Medicine
DX: Z20.822 Contact with and (suspected) exposure to COVID-19 (principal)
CPT/HCPCS: 87635; U0005; U0003

== ENCOUNTER → 2020-05-31 10:10 | Outpatient (CLI) | payer MEDICARE, OTHER, SELFPAY ==
[2019-11-16 15:02] VITALS: BMI 34.5
[2020-06-01 07:33] LABS: SARS-COV-2 TOTAL ABS Nonreactive (Nonreactive)
== END ==
PROVIDERS: Family Medicine; PCP Family Medicine; Visit Provider Family Medicine
DX: Z20.822 Contact with and (suspected) exposure to COVID-19 (principal)
CPT/HCPCS: 36415; 86769

== ENCOUNTER 2020-07-30 11:58 | Emergency (ER) | payer MEDICARE, OTHER, SELFPAY ==
[2019-11-16 15:02] VITALS: BMI 34.5
[2020-07-30 12:00] VITALS: BP 157/81; PULSE 57; RESP 16; TEMP 36.4; O2SAT 100; BMI 35.4
[2020-07-30] MEDS: fentaNYL 100 MCG/2 ML Ampul 50 MCG IM (12:43)
[2020-07-30] MEDS: Ondansetron ODT 4 MG Tablet PO (12:43)
--- NOTE | 2020-07-30 12:47 | RAD_ITS ---
STUDY: X-RAY - LEFT KNEE REASON FOR EXAM: Female, 70 years old patient with left-sided knee pain after injury. TECHNIQUE: 4 view(s) of the knee. COMPARISON: Radiographs of the left knee dated 11/20/2010. FINDINGS: There is demineralization of the visualized distal femur. Normal visualized proximal tibia and fibula. Normal proximal tibiofibular articulation. There is no demonstrated fracture. There is mild degenerative arthrosis of the medial femorotibial compartment. There is moderate degenerative arthrosis of the lateral femorotibial compartment with moderate joint space narrowing. There is mild degenerative arthrosis of the patellofemoral articulation. There is a moderate volume joint effusion. There is soft tissue swelling. RAD/Knee 4 or More Views IMPRESSION: Moderately severe degenerative arthropathy of left knee with moderate joint effusion and soft tissue swelling. Electronically Signed: Norma Landeros MD at 13:09 EDT , Service support ,
--- NOTE | 2020-07-30 13:42 | ED.VISSUMM ---
- ER Visit Summary Date of Service: 07/30/20 Chief Complaint: Left knee pain History of Present Illness: The patient is a [address] Jd Lozano. She reports that she has left knee pain that she saw Dr. Lozano for on July 19. She was placed on a Medrol Dosepak and finished that July 25. She reports that she had stopped her meloxicam during the Medrol Dosepak and started again yesterday. However, her pain is much worse today. Patient reports that constant throbbing pain is sharp with movement. Is 10 out of 10 at worst and 1 out of 10 currently. Worsened by movement. Unrelieved by her meloxicam. She denies any numbness or weakness. She does report she had similar symptoms previously. Review of systems: General: No fever, chills, cold sweats. Cardiovascular: No chest pain, palpitations. Respiratory: No cough, shortness of breath, dyspnea on exertion. Gastrointestinal: No abdominal pain, nausea, vomiting, diarrhea, melena, or hematochezia. Genitourinary: No dysuria, frequency, hematuria. Skin: No rash. Neuro: No headache, numbness, weakness. Physical Examination: Vitals: Stable. Afebrile. General: Well-nourished and well-developed. Head: Normocephalic atraumatic. Neck: Supple, no lymphadenopathy. No JVD. Nontender. Cardiovascular: Regular rate and rhythm. No murmurs. Respiratory: No respiratory distress. Clear to auscultation bilaterally. Abdominal: Soft, nontender, nondistended, normal bowel sounds. No guarding, rebound, or peritoneal signs. Back: Nontender. Extremities: Moderate tenderness palpation to the medial side of her knee. There is a mild joint effusion. However, there is no overlying erythema or warmth to suggest a septic joint. She has no pain with short arc movements. She has pain, but no ligamentous instability with anterior/posterior drawer and medial/lateral stress. She is neuro vas intact distal to this with 1+ dorsalis pedis pulse.. Skin: Normal color, no rash. Neurologic: Alert and oriented ?3. Cranial nerves II through XII are intact. Normal strength and sensation. Psych: Normal affect. Test Results: Clinical Impression(s) from Imaging Studies Knee X-Ray 07/30/20 12:47 IMPRESSION: Moderately severe degenerative arthropathy of left knee with moderate joint effusion and soft tissue swelling. Electronically Signed: Norma Landeros MD at 13:09 EDT , Service support , Emergency Department Course and Treatment: Patient given a dose of fentanyl IM and Zofran p.o. I had a prolonged discussion of the possibility of doing a therapeutic arthrocentesis. However, she does have a history of rheumatoid arthritis and is on Plaquenil. I do not think that this is the best course of action in the emergency department. Treatment Plan: Patient be discharged prescription for Percocet and senna. Instructed to follow-up with Dr. Alan Henderson or Dr. Byron Landeros, both of whom she is seen previously for knee problems in 3 to 5 days for another exam. Return to the emergency department for any worsening symptoms. Disposition: To home in improved and stable condition. Impression: One. Left knee pain. 2. Rheumatoid arthritis on Plaquenil. This note was generated with [employer] dictation software. It may contain incorrect words, spelling, and punctuation that were not noted in review of the chart prior to signing ED Disposition - Plan for ED Patient: Disposition: Home or Assisted Living Instructions: ED Knee Pain of Uncertain Cause Prescriptions: Oxycodone HCl/Acetaminophen [Percocet 5/325] 1 tablet PO Q6H PRN PRN 3 Days #12 tab PRN Reason: Pain Prescription Printed Sennosides [Senna] 8.6 mg PO QHS #10 tablet Prescription Printed Referrals: Haider Estrada DO [STAFF PHYSICIAN] - 3-5 Days
[2020-07-30] MEDS: oxyCODONE 5 MG Tablet PO (14:04)
[2020-07-30 14:12] VITALS: BP 148/78; PULSE 98; RESP 18; O2SAT 95
== END 2020-07-30 14:14 | disposition home or self-care (01) ==
LOC: ED 13:05
PROVIDERS: Emergency Provider Emergency Medicine; PCP Family Medicine
DX: M25.562 Pain in left knee (principal); M06.9 Rheumatoid arthritis, unspecified; Z79.899 Other long term (current) drug therapy
CPT/HCPCS: 73564; 96372; 99283

== ENCOUNTER → 2021-04-02 08:35 | Outpatient (CLI) | payer MEDICARE, OTHER, SELFPAY ==
[2021-04-02 10:08] LABS: Erythrocyte Sedimentation Rate 24 mm/hr (0-30)
[2021-04-02 10:10] LABS: Absolute Lymphocyte Count 0.88 X10^3/uL (0.83-4.51); Basophil# 0.04 X10^3/uL; Basophil% 1.2 % (0-1); Eosinophil# 0.09 X10^3/uL; Eosinophils% 2.7 % (0-5); Hematocrit 36.8 % (37-47); Hemoglobin 11.1 g/dL (12.0-15.0); Lymphocyte # 0.88 X10^3/ul (0.83-4.51); Lymphocyte % 26.6 % (19-41); Mean Corp Hgb Conc 30.2 g/dL (32-36); Mean Corpuscular Hgb 25.2 pg (27.0-32.0); Mean Corpuscular Volume 83.4 fL (81-99); Mean Platelet Vol. 11.5 fl (6.2-12.0); Monocyte# 0.33 X10^3/uL; NRBC Flagged by Analyzer 0 % (0-5); Neutrophil # 1.96 X10^3/uL (2.7-7.7); Neutrophil % 59.2 % (47-70); Platelet Count 217 K/mm3 (150-450); RBC Distribution Width CV 14.1 % (11.6-14.6); Red Blood Count 4.41 M/mm3 (4.2-5.4); White Blood Count 3.3 K/mm3 (4.4-11.0)
[2021-04-02 10:17] LABS: ALB/GLOB Ratio 0.7 RATIO (0.9-2.4); AST(SGOT) 21 U/L (15-37); Alanine Aminotransfer ALT/SGPT 19 U/L (13-56); Albumin, Serum 2.9 g/dL (3.2-5.0); Alkaline Phosphatase 90 U/L (45-117); Anion Gap 5 (5-15); BUN 16 mg/dL (7-18); BUN/Creat Ratio 16.7 RATIO (10-20); Calcium,Total 9.1 mg/dL (8.5-10.1); Chloride 109 mmol/L (98-107); Creatinine, Serum 0.96 mg/dL (0.55-1.02); EST Glomerular Filtration Rate 61 mL/min (>60); Est Glom Filt Rate - Afr Amer 74 mL/min (>60); Glucose 109 mg/dL (74-106); Potassium 3.6 mmol/L (3.5-5.1); Protein, Total 6.9 g/dL (6.4-8.2); Sodium Level 142 mmol/L (136-145); Uric Acid 5.4 mg/dL (2.6-6.0)
[2021-04-02 10:26] LABS: PTHIN 88.5 pg/mL (18.4-80.1)
== END ==
PROVIDERS: PCP Family Medicine; Visit Provider Family Medicine
DX: M06.9 Rheumatoid arthritis, unspecified (principal)
CPT/HCPCS: 36415; 80053; 83970; 84550; 85025; 85652; 86140

== ENCOUNTER 2021-05-29 15:30 | Outpatient (CLI) | payer MEDICARE, OTHER, SELFPAY ==
[2021-05-29 17:58] LABS: Absolute Lymphocyte Count 1.26 X10^3/uL (0.83-4.51); Absolute Neutrophil Count 4.1 X10^3/uL (2.0-7.7); Basophil# 0.05 X10^3/uL; Basophil% 0.8 % (0-1); Eosinophils% 3.1 % (0-5); Hematocrit 38.7 % (37-47); Hemoglobin 11.9 g/dL (12.0-15.0); Lymphocyte # 1.26 X10^3/ul (0.83-4.51); Lymphocyte % 19.4 % (19-41); Mean Corp Hgb Conc 30.7 g/dL (32-36); Mean Corpuscular Volume 84.7 fL (81-99); Mean Platelet Vol. 11.1 fl (6.2-12.0); Monocyte# 0.84 X10^3/uL; Monocyte% 12.9 % (0-10); NRBC Flagged by Analyzer 0 % (0-5); Neutrophil # 4.13 X10^3/uL (2.7-7.7); Neutrophil % 63.5 % (47-70); Platelet Count 268 K/mm3 (150-450); RBC Distribution Width CV 14.5 % (11.6-14.6); RBC Distribution Width SD 44.5 fl (35.1-43.9); Red Blood Count 4.57 M/mm3 (4.2-5.4); White Blood Count 6.5 K/mm3 (4.4-11.0)
[2021-05-29 18:18] LABS: ALB/GLOB Ratio 0.8 RATIO (0.9-2.4); AST(SGOT) 18 U/L (15-37); Alanine Aminotransfer ALT/SGPT 20 U/L (13-56); Albumin, Serum 3.1 g/dL (3.2-5.0); Alkaline Phosphatase 83 U/L (45-117); Anion Gap 4 (5-15); BUN 20 mg/dL (7-18); BUN/Creat Ratio 19.4 RATIO (10-20); Calcium,Total 9.1 mg/dL (8.5-10.1); Chloride 107 mmol/L (98-107); Creatinine, Serum 1.03 mg/dL (0.55-1.02); EST Glomerular Filtration Rate 56 mL/min (>60); Est Glom Filt Rate - Afr Amer 68 mL/min (>60); Globulin 4.1 g/dL (2.2-4.2); Glucose 97 mg/dL (74-106); Potassium 4.3 mmol/L (3.5-5.1); Protein, Total 7.2 g/dL (6.4-8.2); Sodium Level 138 mmol/L (136-145); Uric Acid 5.6 mg/dL (2.6-6.0)
== END 2021-05-29 23:59 | disposition home or self-care (01) ==
LOC: MFPLAB 15:33
PROVIDERS: PCP Family Medicine; Referring Provider Family Medicine; Visit Provider Family Medicine
DX: M06.9 Rheumatoid arthritis, unspecified (principal); M10.9 Gout, unspecified
CPT/HCPCS: 36415; 80053; 84550; 85025

== ENCOUNTER 2021-06-21 11:38 | Outpatient (CLI) | payer MEDICARE, OTHER, SELFPAY ==
--- NOTE | 2021-06-21 11:42 | RAD_ITS ---
EXAM: XR Chest, 2 Views CLINICAL INDICATION: 71 years old, Female; COUGH TECHNIQUE: Frontal and lateral views of the chest. This report was created using [employer] report generation technology. COMPARISON: XR Chest dated 02/26/2019 FINDINGS: Lungs and pleural spaces: Mild bibasilar infiltrates or atelectasis. No pneumothorax. No effusion. Heart: Unremarkable. Cardiac silhouette not enlarged. Mediastinum: Central airways and mediastinal contour are unremarkable. Bones/joints: Unremarkable. Soft tissues: Unremarkable. Vasculature: Calcified aorta. RAD/Chest PA and Lateral IMPRESSION: Mild bibasilar infiltrates or atelectasis. Electronically Signed: Andrew Hassan MD at 23:42 EST ,
== END 2021-06-21 23:59 | disposition home or self-care (01) ==
LOC: MTRAD 11:40
PROVIDERS: PCP Family Medicine; Referring Provider Nurse Practitioner Family; Visit Provider Nurse Practitioner Family
DX: R05.9 Cough, unspecified (principal)
CPT/HCPCS: 71046

== ENCOUNTER 2021-06-29 12:36 | Outpatient (CLI) | payer MEDICARE, OTHER, SELFPAY ==
--- NOTE | 2021-06-29 12:43 | RAD_ITS ---
STUDY: X-RAY CHEST REASON FOR EXAM: Female, 71 years old. COUGH PAIN prior bibasilar rales now with L posterior upper rales TECHNIQUE: XR Chest 2 Views COMPARISON: 06.21.21 FINDINGS: There is no demonstrated pleural abnormality. Normal size heart. Normal mediastinum and genaro. Normal visualized pulmonary arteries. There is atherosclerotic calcification of the aortic arch with tortuosity. There are diffuse degenerative changes of the visualized thoracic spine. There is degenerative osteoarthritis of the bilateral shoulders. There is no demonstrated abnormality of the visualized soft tissue structures of the upper abdomen. RAD/Chest PA and Lateral IMPRESSION: There are no acute findings. Electronically Signed: Tyler Peng MD at 16:57 EDT ,
== END 2021-06-29 23:59 | disposition home or self-care (01) ==
LOC: MTRAD 12:37
PROVIDERS: PCP Family Medicine; Referring Provider Family Medicine; Visit Provider Family Medicine
DX: J20.9 Acute bronchitis, unspecified (principal)
CPT/HCPCS: 71046

== ENCOUNTER 2021-07-04 09:06 | Outpatient (CLI) | payer MEDICARE, OTHER, SELFPAY | END 2021-07-04 23:59 | disposition home or self-care (01) | LOC: LABSPEC 09:16 | PROVIDERS: PCP Family Medicine; Referring Provider Family Medicine; Visit Provider Family Medicine | DX: R05.3 Chronic cough (principal) | CPT/HCPCS: 87015; 87070; 87077; 87116; 87186; 87205; 87206 ==

== ENCOUNTER 2021-07-05 09:11 | Outpatient (CLI) | payer MEDICARE, OTHER, SELFPAY | END 2021-07-05 23:59 | disposition home or self-care (01) | LOC: MFPLAB 09:12 | PROVIDERS: PCP Family Medicine; Referring Provider Family Medicine; Visit Provider Family Medicine | DX: J40 Bronchitis, not specified as acute or chronic (principal); M06.9 Rheumatoid arthritis, unspecified; R05.3 Chronic cough | CPT/HCPCS: 87015; 87070; 87116; 87205; 87206 ==

== ENCOUNTER 2021-07-06 10:29 | Outpatient (CLI) | payer MEDICARE, OTHER, SELFPAY | END 2021-07-06 23:59 | disposition home or self-care (01) | LOC: LABSPEC 10:30 | PROVIDERS: PCP Family Medicine; Referring Provider Family Medicine; Visit Provider Family Medicine | DX: J40 Bronchitis, not specified as acute or chronic (principal); M06.9 Rheumatoid arthritis, unspecified; R05.3 Chronic cough | CPT/HCPCS: 87015; 87070; 87116; 87205; 87206 ==

== ENCOUNTER 2021-07-11 06:45 | Outpatient (CLI) | payer MEDICARE, OTHER, SELFPAY ==
--- NOTE | 2021-07-11 06:46 | CT_ITS ---
EXAM: CT CHEST WITHOUT INTRAVENOUS CONTRAST CLINICAL INDICATION: chronic cough. initial improvement and now worsening wheezing TECHNIQUE: Helically acquired images were obtained of the chest without intravenous contrast. DLP: 585.91 mGy-cm and CTDI: 16.[address] exam was performed using one or more of the following dose reduction techniques: automated exposure control, adjustment of the mA and/or kV according to patient size, and/or use of iterative reconstruction technique. This report was created using [employer] report generation technology. COMPARISON: Chest radiographs of 06/29/2021. FINDINGS: LUNGS AND PLEURAL SPACES: Minimal biapical pleural scarring. No pleural effusion. At the right apex is a 5.5 x 3.2 mm ovoid circumscribed noncalcified nodule. No spiculated pulmonary mass lesions are identified. No patchy pneumonia. Minimal bilateral peribronchial cuffing is present indicating bronchial wall inflammation. HEART: Mild coronary artery calcification is present. Heart size is normal. No pericardial effusion. MEDIASTINUM: Small hiatal hernia is noted, measuring 3.3 cm in diameter. Normal-sized mediastinal lymph nodes are present. No mediastinal adenopathy is noted. Esophagus is unremarkable. THYROID: Unremarkable. No thyroid lesions. BONES/JOINTS: Mid to lower thoracic degenerative spurring. No acute fracture identified. No suspicious lytic or blastic abnormality. VASCULATURE: Thoracic aorta is mildly calcific and is normal in caliber. No aneurysm or intimal calcification displacement. INTRAPERITONEAL SPACE: Gallbladder is elongated measuring 9 x 3.5 cm in diameter. A large calcified stone is seen within the gallbladder neck, with additional tiny stones in the dependent portion of the gallbladder. No gallbladder wall thickening or pericholecystic stranding is noted. Visualized liver, spleen, adrenal glands and renal upper poles are unremarkable. Pancreas is atrophic/fatty. No pneumoperitoneum is noted. CT/Chest without Contrast IMPRESSION: Minimal peribronchial cuffing, consistent with bronchitis. No pneumonia. Small hiatal hernia. Cholelithiasis. 5.5 x 3.2 mm circumscribed noncalcified nodule in the right apex; current guidelines indicate that no follow-up is required for a low risk nodule of this small size, which most likely represents a noncalcified granuloma. Electronically Signed: Cabrera Barber MD at 8:15 EDT ,
== END 2021-07-11 23:59 | disposition home or self-care (01) ==
LOC: CT 06:45
PROVIDERS: PCP Family Medicine; Visit Provider Family Medicine
DX: R05.3 Chronic cough (principal); M06.9 Rheumatoid arthritis, unspecified; J40 Bronchitis, not specified as acute or chronic
CPT/HCPCS: 71250

== ENCOUNTER → 2021-10-19 | Outpatient (CLI) | payer MEDICARE, OTHER, SELFPAY ==
[2021-10-19 15:08] LABS: Absolute Lymphocyte Count 1.05 X10^3/uL (0.83-4.51); Absolute Neutrophil Count 3.5 X10^3/uL (2.0-7.7); Basophil# 0.03 X10^3/uL; Basophil% 0.6 % (0-1); Eosinophil# 0.05 X10^3/uL; Hematocrit 37.7 % (37-47); Hemoglobin 10.9 g/dL (12.0-15.0); Lymphocyte # 1.05 X10^3/ul (0.83-4.51); Lymphocyte % 20.8 % (19-41); Mean Corp Hgb Conc 28.9 g/dL (32-36); Mean Corpuscular Hgb 24.4 pg (27.0-32.0); Mean Corpuscular Volume 84.3 fL (81-99); Monocyte# 0.41 X10^3/uL; Monocyte% 8.1 % (0-10); NRBC Flagged by Analyzer 0 % (0-5); Neutrophil % 69.3 % (47-70); Platelet Count 217 K/mm3 (150-450); RBC Distribution Width CV 14.6 % (11.6-14.6); RBC Distribution Width SD 44.4 fl (35.1-43.9); Red Blood Count 4.47 M/mm3 (4.2-5.4); White Blood Count 5.1 K/mm3 (4.4-11.0)
[2021-10-19 15:21] LABS: Erythrocyte Sedimentation Rate 34 mm/hr (0-30)
[2021-10-19 16:14] LABS: Rheumatoid Factor > 600.0 IU/mL (<15); Uric Acid 5.3 mg/dL (2.6-6.0)
[2021-10-25 17:14] LABS: CCP IgG Antibodies 5 units (0-19)
== END | disposition home or self-care (01) ==
LOC: MFPLAB 11:42
PROVIDERS: PCP Family Medicine; Visit Provider Family Medicine
DX: M25.50 Pain in unspecified joint (principal); M06.9 Rheumatoid arthritis, unspecified
CPT/HCPCS: 36415; 84550; 85025; 85652; 86140; 86200; 86431

== ENCOUNTER → 2021-11-08 | Outpatient (CLI) | payer MEDICARE, OTHER, SELFPAY ==
--- NOTE | 2021-11-08 12:38 | BI_ITS ---
MAMMOGRAPHY - BILATERAL SCREENING REASON FOR EXAM: Female, 71 years old. Routine annual screening examination. PERTINENT HISTORY: Mother with breast cancer. Prior right stereotactic breast biopsy and bilateral excisional breast biopsies. TECHNIQUE: Digital bilateral breast verito (3D mammographic acquisition) in the CC and MLO projections. 2-D mediolateral oblique (MLO) and craniocaudad (CC) views of both breasts were obtained. CAD: Full Field Digital Mammography with Computer Added Detection was performed. COMPARISON: Comparison is made with prior study dated 12/22/2019 and 01/26/2016. FINDINGS: Breast Composition: There are scattered areas of fibroglandular density. There are no dominant masses or suspicious calcifications. Stable small benign appearing bilateral axillary lymph nodes. No other significant abnormalities are identified. There has been no significant change since the prior study. BI/SCRN MAMM (CAD)W/VERITO BILAT IMPRESSION: Stable bilateral screening mammogram. Yearly follow-up mammogram recommended. (A) ASSESSMENT CATEGORY: BIRADS Category 2: Benign. A letter regarding these results will be sent to the patient by the facility within 30 days. Approximately 10% of breast cancers are not detected by mammography. A normal mammogram should not delay biopsy of a clinically suspicious abnormality. [id number] Electronically Signed: Craig Lindo MD at 13:21 EDT ,
== END | disposition home or self-care (01) ==
LOC: OPBI 12:37
PROVIDERS: PCP Family Medicine; Visit Provider Family Medicine
DX: Z12.31 Encounter for screening mammogram for malignant neoplasm of breast (principal)
CPT/HCPCS: 77063; 77067

== ENCOUNTER → 2021-11-27 | Outpatient (CLI) | payer MEDICARE, OTHER, SELFPAY ==
--- NOTE | 2021-11-27 07:40 | ECHOD_ITS ---
Reason For Study: HTN Procedure This was a 2D Doppler, Color Flow transthoracic echocardiogram. Exam performed in department. Left Ventricle Normal LV size. Left ventricular systolic function is normal. The estimated ejection fraction is 60 %. Stage 3 diastolic dysfunction. No regional wall motion abnormalities noted. Right Ventricle Normal RV size. Normal systolic function. Atria Normal left atrium. Normal right atrium. Bubble contrast study negative for right to left interatrial shunt. Mitral Valve There is mild mitral annular calcification. Tricuspid Valve Normal tricuspid valve. Aortic Valve Normal aortic valve. Pulmonic Valve Normal pulmonic valve. Great Vessels Normal aortic root. The pulmonary artery is normal size. Normal inferior vena cava. Pericardium/Pleural No pericardial effusion. Medication 22 gauge I.V. with prn adaptor inserted into right arm. Performed a rapid injection of agitated mix of 9 cc saline and 1cc air to assess for atrial septal defect. MMode/2D Measurements & Calculations LVIDd: 5.4 cm IVSd: 0.82 cm Ao root diam: 3.4 cm LVIDs: 2.9 cm LVPWd: 0.80 cm FS: 47.0 % LAV(MOD-bp): 85.0 ml LVAd ap4: 30.0 cm2 SV(MOD-sp4): 62.0 ml LAV(MOD-bp) Indexed: 39.2 ml/m2 LVLd ap4: 7.9 cm LAV(MOD-sp2): 89.8 ml EDV(MOD-sp4): 91.3 ml LAV(MOD-sp4): 75.4 ml EDV(sp4-el): 96.7 ml LVAs ap4: 14.9 cm2 LVLs ap4: 6.2 cm ESV(MOD-sp4): 29.3 ml ESV(sp4-el): 30.1 ml EF(MOD-sp4): 67.9 % EF(sp4-el): 68.8 % SV(sp4-el): 66.5 ml LA A4 area: 23.6 cm2 LA dimension(2D): 4.2 cm RA A4 area: 23.9 cm2 Time Measurements MV dec time: 0.18 sec Doppler Measurements & Calculations MV E max ion: 114.5 cm/sec Lat Peak E' Ion: 13.4 cm/sec Med Peak E' Ion: 6.5 cm/sec MV A max ion: 39.2 cm/sec E/E' lat: 8.6 E/E' med: 17.6 MV E/A: 2.9 MV V2 max: 132.8 cm/sec MV dec slope: 637.0 cm/sec2 Ao V2 max: 175.4 cm/sec MV max P.1 mmHg Ao max P.3 mmHg MV V2 mean: 46.3 cm/sec Ao V2 mean: 109.0 cm/sec MV mean P.3 mmHg Ao mean P.6 mmHg MV V2 VTI: 40.9 cm Ao V2 VTI: 40.7 cm LV V1 max: 133.4 cm/sec MR max ion: 499.9 cm/sec PA V2 max: 117.2 cm/sec LV V1 max P.1 mmHg MR max P.0 mmHg LV V1 mean P.3 mmHg LV V1 mean: 84.6 cm/sec LV V1 VTI: 32.2 cm ECHO/Echo Complete Interpretation Summary Normal LV size. Left ventricular systolic function is normal. The estimated ejection fraction is 60 %. Bubble contrast study negative for right to left interatrial shunt. Stage 3 diastolic dysfunction. Ordering Physician: Mario Taveras Referring Physician: Jd Lozano MD Performed By: Tanika Alexander RCS
== END | disposition home or self-care (01) ==
LOC: CVS 07:39
PROVIDERS: PCP Family Medicine; Visit Provider Internal Medicine Cardiovascular Disease
DX: I10 Essential (primary) hypertension (principal); I47.1 Supraventricular tachycardia
CPT/HCPCS: 93306

== ENCOUNTER → 2022-01-01 | Outpatient (CLI) | payer MEDICARE, OTHER, SELFPAY ==
[2022-01-01 15:17] LABS: Absolute Lymphocyte Count 0.77 X10^3/uL (0.83-4.51); Absolute Neutrophil Count 5.4 X10^3/uL (2.0-7.7); Basophil# 0.02 X10^3/uL; Basophil% 0.3 % (0-1); Eosinophil# 0.04 X10^3/uL; Eosinophils% 0.6 % (0-5); Hematocrit 37.7 % (37-47); Hemoglobin 11.1 g/dL (12.0-15.0); Lymphocyte # 0.77 X10^3/ul (0.83-4.51); Lymphocyte % 11.5 % (19-41); Mean Corp Hgb Conc 29.4 g/dL (32-36); Mean Corpuscular Hgb 24.5 pg (27.0-32.0); Mean Corpuscular Volume 83.2 fL (81-99); Mean Platelet Vol. 11.2 fl (6.2-12.0); Monocyte# 0.44 X10^3/uL; Monocyte% 6.6 % (0-10); NRBC Flagged by Analyzer 0 % (0-5); Neutrophil # 5.38 X10^3/uL (2.7-7.7); Neutrophil % 80.6 % (47-70); Platelet Count 202 K/mm3 (150-450); RBC Distribution Width CV 15.9 % (11.6-14.6); RBC Distribution Width SD 48.2 fl (35.1-43.9); Red Blood Count 4.53 M/mm3 (4.2-5.4); White Blood Count 6.7 K/mm3 (4.4-11.0)
[2022-01-01 15:41] LABS: ALB/GLOB Ratio 0.8 RATIO (0.9-2.4); AST(SGOT) 17 U/L (15-37); Alanine Aminotransfer ALT/SGPT 21 U/L (13-56); Albumin, Serum 3.1 g/dL (3.2-5.0); Alkaline Phosphatase 74 U/L (45-117); Anion Gap 9 (5-15); BUN 16 mg/dL (7-18); BUN/Creat Ratio 15.2 RATIO (10-20); Calcium,Total 9.1 mg/dL (8.5-10.1); Chloride 105 mmol/L (98-107); Creatinine, Serum 1.05 mg/dL (0.55-1.02); EST Glomerular Filtration Rate 55 mL/min (>60); Est Glom Filt Rate - Afr Amer 67 mL/min (>60); Glucose 101 mg/dL (74-106); Potassium 3.8 mmol/L (3.5-5.1); Protein, Total 7.1 g/dL (6.4-8.2); Sodium Level 139 mmol/L (136-145)
[2022-01-02 08:48] LABS: Hepatitis B Surface Antibody Non-Reactive; Hepatitis B Surface Antigen Non-Reactive (Nonreactive); Hepatitis C Antibody Non-Reactive (Nonreactive)
[2022-01-04 14:09] LABS: QNTFERON TB Mitogen Value 7.96 IU/mL (.); QNTFERON TB Nil Value 0 IU/mL (.); QNTFERON TB1+ Ag Value 0.01 IU/mL (.); QNTFERON TB2+ Ag Value 0 IU/mL (.)
[2022-01-04 15:15] LABS: G6PD Quant Test 327 (127-427); QNTIFERON TB Positive Criteria Negative (Negative)
[2022-01-04 19:30] LABS: ANTINUCLEAR ANTIBODIES DIRECT Negative (Negative)
== END | disposition home or self-care (01) ==
LOC: MTLAB 11:36
PROVIDERS: PCP Family Medicine; Referring Provider Internal Medicine Rheumatology; Visit Provider Internal Medicine Rheumatology
DX: M05.79 Rheumatoid arthritis with rheumatoid factor of multiple sites without organ or systems involvement (principal); K21.9 Gastro-esophageal reflux disease without esophagitis; M47.897 Other spondylosis, lumbosacral region
CPT/HCPCS: 36415; 80053; 82955; 85025; 86038; 86480; 86706; 86803; 87340

== ENCOUNTER → 2022-02-26 | Outpatient (CLI) | payer MEDICARE, OTHER, SELFPAY ==
[2022-02-26 09:53] LABS: Absolute Lymphocyte Count 1.61 X10^3/uL (0.83-4.51); Absolute Neutrophil Count 2.3 X10^3/uL (2.0-7.7); Basophil# 0.04 X10^3/uL; Basophil% 0.9 % (0-1); Eosinophil# 0.04 X10^3/uL; Eosinophils% 0.9 % (0-5); Hemoglobin 11.3 g/dL (12.0-15.0); Lymphocyte # 1.61 X10^3/ul (0.83-4.51); Lymphocyte % 35.2 % (19-41); Mean Corp Hgb Conc 29.7 g/dL (32-36); Mean Corpuscular Hgb 25.4 pg (27.0-32.0); Mean Corpuscular Volume 85.4 fL (81-99); Mean Platelet Vol. 10.8 fl (6.2-12.0); Monocyte# 0.54 X10^3/uL; Monocyte% 11.8 % (0-10); NRBC Flagged by Analyzer 0 % (0-5); Neutrophil # 2.33 X10^3/uL (2.7-7.7); Neutrophil % 50.8 % (47-70); Platelet Count 239 K/mm3 (150-450); RBC Distribution Width CV 14.5 % (11.6-14.6); Red Blood Count 4.45 M/mm3 (4.2-5.4); White Blood Count 4.6 K/mm3 (4.4-11.0)
[2022-02-26 10:14] LABS: ALB/GLOB Ratio 0.8 RATIO (0.9-2.4); AST(SGOT) 17 U/L (15-37); Alanine Aminotransfer ALT/SGPT 20 U/L (13-56); Alkaline Phosphatase 55 U/L (45-117); Anion Gap 7 (5-15); BUN 16 mg/dL (7-18); BUN/Creat Ratio 16.9 RATIO (10-20); Calcium,Total 8.8 mg/dL (8.5-10.1); Chloride 107 mmol/L (98-107); Creatinine, Serum 0.94 mg/dL (0.55-1.02); EST Glomerular Filtration Rate 62 mL/min (>60); Est Glom Filt Rate - Afr Amer 75 mL/min (>60); Globulin 3.8 g/dL (2.2-4.2); Glucose 94 mg/dL (74-106); Magnesium 2.3 mg/dL (1.6-2.6); Phosphorus 2.9 mg/dL (2.5-4.9); Potassium 3.4 mmol/L (3.5-5.1); Protein, Total 6.8 g/dL (6.4-8.2); Sodium Level 140 mmol/L (136-145); Uric Acid 4.8 mg/dL (2.6-6.0)
[2022-02-26 10:21] LABS: PTHIN 71.9 pg/mL (18.4-80.1)
[2022-02-26 10:24] LABS: Vitamin D,25 Hydroxy 15.8 ng/mL
== END | disposition home or self-care (01) ==
LOC: MFPLAB 08:56
PROVIDERS: PCP Family Medicine; Referring Provider Family Medicine; Visit Provider Family Medicine
DX: N18.31 Chronic kidney disease, stage 3a (principal); M05.79 Rheumatoid arthritis with rheumatoid factor of multiple sites without organ or systems involvement; Z79.899 Other long term (current) drug therapy
CPT/HCPCS: 80053; 82306; 83735; 83970; 84100; 84550; 85025

== ENCOUNTER → 2022-04-22 | Outpatient (CLI) | payer MEDICARE, OTHER, SELFPAY ==
[2022-04-22 12:06] LABS: Absolute Lymphocyte Count 1.48 X10^3/uL (0.83-4.51); Absolute Neutrophil Count 2.9 X10^3/uL (2.0-7.7); Basophil# 0.03 X10^3/uL; Basophil% 0.6 % (0-1); Eosinophil# 0.07 X10^3/uL; Eosinophils% 1.4 % (0-5); Hematocrit 37.5 % (37-47); Hemoglobin 11.4 g/dL (12.0-15.0); Lymphocyte # 1.48 X10^3/ul (0.83-4.51); Mean Corp Hgb Conc 30.4 g/dL (32-36); Mean Corpuscular Hgb 25.7 pg (27.0-32.0); Mean Corpuscular Volume 84.5 fL (81-99); Mean Platelet Vol. 10.8 fl (6.2-12.0); Monocyte# 0.45 X10^3/uL; Monocyte% 9.1 % (0-10); NRBC Flagged by Analyzer 0 % (0-5); Neutrophil # 2.89 X10^3/uL (2.7-7.7); Neutrophil % 58.5 % (47-70); Platelet Count 238 K/mm3 (150-450); RBC Distribution Width CV 14.1 % (11.6-14.6); RBC Distribution Width SD 43.3 fl (35.1-43.9); Red Blood Count 4.44 M/mm3 (4.2-5.4); White Blood Count 4.9 K/mm3 (4.4-11.0)
[2022-04-22 12:57] LABS: AST(SGOT) 15 U/L (15-37); Alanine Aminotransfer ALT/SGPT 18 U/L (13-56); Albumin, Serum 3.3 g/dL (3.2-5.0); Alkaline Phosphatase 63 U/L (45-117); Anion Gap 7 (5-15); BUN 15 mg/dL (7-18); BUN/Creat Ratio 14.7 RATIO (10-20); Calcium,Total 9.1 mg/dL (8.5-10.1); Chloride 105 mmol/L (98-107); Creatinine, Serum 1.02 mg/dL (0.55-1.02); EST Glomerular Filtration Rate 57 mL/min (>60); Est Glom Filt Rate - Afr Amer 69 mL/min (>60); Globulin 3.3 g/dL (2.2-4.2); Glucose 96 mg/dL (74-106); Potassium 4.1 mmol/L (3.5-5.1); Protein, Total 6.6 g/dL (6.4-8.2); Sodium Level 140 mmol/L (136-145)
== END | disposition home or self-care (01) ==
PROVIDERS: PCP Family Medicine; Referring Provider Internal Medicine Rheumatology; Visit Provider Internal Medicine Rheumatology
DX: M05.79 Rheumatoid arthritis with rheumatoid factor of multiple sites without organ or systems involvement (principal); Z79.899 Other long term (current) drug therapy
CPT/HCPCS: 36415; 80053; 85025

== ENCOUNTER → 2022-06-04 | Outpatient (CLI) | payer MEDICARE, OTHER, SELFPAY ==
--- NOTE | 2022-06-04 09:56 | BD_ITS ---
STUDY: DUAL ENERGY X-RAY ABSORPTIOMETRY / DXA REASON FOR EXAM: Female, 72 years old. [id number] TECHNIQUE: Bone Mineral Density (BMD) measurements of lumbar spine and bilateral hips were obtained. COMPARISON: None. FINDINGS: Lumbar Spine (L1-L4): g/cm2 (0.784) / T-score (-2.7) / Z-score (-0.5) Findings are suggestive of osteoporosis with a high fracture risk. Left Femur Total: g/cm2 (0.818) / T-score (-1.0) / Z-score (0.5) Left Femoral Neck: g/cm2 (0.659) / T-score (-1.7) / Z-score (0.1) Right Femur Total: g/cm2 (0.855) / T-score (-0.7) / Z-score (0.8) Right Femoral Neck: g/cm2 (0.698) / T-score (-1.4) / Z-score (0.5) BD/Dexa Bone Density Study IMPRESSION: The patient is considered osteopenic as outlined below according to World Fernando Organization (WHO) criteria with a moderate fracture risk. Reference Information: The T-score is the number of standard deviations above or below the standard which is normal for young adults at their peak bone mineral density. The World Health Organization (WHO) interprets the T-scores as follows: Above -1 Normal bone density Between -1 and -2.5 Osteopenia Equal to / or below -2.5 Osteoporosis As a practical clinical guideline, osteopenia may be graded as follows: Mild -1 through -1.5 Moderate -1.6 through -2.0 Severe -2.1 through -2.4 The Z-score is the number of standard deviations above or below age-matched controls. A Z-score of less than -1.5 would be considered abnormal. References: 1. NIH Osteoporosis and Related Bone Diseases www osteo.org 2. International Society for Clinical Densitometry www iscd.org 3. National Osteoporosis Foundation www nof.org Electronically Signed: Craig Lindo MD at 9:24 EST ,
== END | disposition home or self-care (01) ==
LOC: OPBD 09:48
PROVIDERS: PCP Family Medicine; Visit Provider Nurse Practitioner Family
DX: Z13.820 Encounter for screening for osteoporosis (principal); M81.0 Age-related osteoporosis without current pathological fracture
CPT/HCPCS: 77080

== ENCOUNTER → 2022-06-12 | Outpatient (CLI) | payer MEDICARE, OTHER, SELFPAY ==
[2022-06-12 12:33] LABS: Absolute Lymphocyte Count 1.38 X10^3/uL (0.83-4.51); Absolute Neutrophil Count 2.9 X10^3/uL (2.0-7.7); Basophil# 0.04 X10^3/uL; Basophil% 0.8 % (0-1); Eosinophil# 0.03 X10^3/uL; Eosinophils% 0.6 % (0-5); Hematocrit 38.4 % (37-47); Hemoglobin 11.3 g/dL (12.0-15.0); Lymphocyte # 1.38 X10^3/ul (0.83-4.51); Lymphocyte % 28.5 % (19-41); Mean Corp Hgb Conc 29.4 g/dL (32-36); Mean Corpuscular Hgb 25.3 pg (27.0-32.0); Mean Corpuscular Volume 86.1 fL (81-99); Mean Platelet Vol. 11.4 fl (6.2-12.0); Monocyte# 0.53 X10^3/uL; Monocyte% 10.9 % (0-10); NRBC Flagged by Analyzer 0 % (0-5); Neutrophil # 2.85 X10^3/uL (2.7-7.7); Neutrophil % 58.8 % (47-70); Platelet Count 219 K/mm3 (150-450); RBC Distribution Width CV 14.6 % (11.6-14.6); RBC Distribution Width SD 45.8 fl (35.1-43.9); Red Blood Count 4.46 M/mm3 (4.2-5.4); White Blood Count 4.9 K/mm3 (4.4-11.0)
[2022-06-12 12:52] LABS: ALB/GLOB Ratio 0.8 RATIO (0.9-2.4); AST(SGOT) 15 U/L (15-37); Alanine Aminotransfer ALT/SGPT 14 U/L (13-56); Albumin, Serum 3.2 g/dL (3.2-5.0); Alkaline Phosphatase 67 U/L (45-117); Anion Gap 7 (5-15); BUN 16 mg/dL (7-18); BUN/Creat Ratio 16.8 RATIO (10-20); Calcium,Total 9.3 mg/dL (8.5-10.1); Chloride 110 mmol/L (98-107); Creatinine, Serum 0.95 mg/dL (0.55-1.02); EST Glomerular Filtration Rate 62 mL/min (>60); Est Glom Filt Rate - Afr Amer 75 mL/min (>60); Globulin 3.9 g/dL (2.2-4.2); Glucose 111 mg/dL (74-106); Potassium 3.8 mmol/L (3.5-5.1); Protein, Total 7.1 g/dL (6.4-8.2); Sodium Level 141 mmol/L (136-145)
== END | disposition home or self-care (01) ==
LOC: MTLAB 09:40
PROVIDERS: PCP Family Medicine; Referring Provider Internal Medicine Rheumatology; Visit Provider Internal Medicine Rheumatology
DX: M05.79 Rheumatoid arthritis with rheumatoid factor of multiple sites without organ or systems involvement (principal); I47.1 Supraventricular tachycardia; Z79.899 Other long term (current) drug therapy; K21.9 Gastro-esophageal reflux disease without esophagitis; M47.897 Other spondylosis, lumbosacral region; I10 Essential (primary) hypertension
CPT/HCPCS: 36415; 80053; 85025

== ENCOUNTER → 2022-08-22 | Outpatient (CLI) | payer MEDICARE, OTHER, SELFPAY ==
[2022-08-22 10:42] LABS: ALB/GLOB Ratio 0.8 RATIO (0.9-2.4); AST(SGOT) 12 U/L (15-37); Alanine Aminotransfer ALT/SGPT 16 U/L (13-56); Albumin, Serum 2.9 g/dL (3.2-5.0); Alkaline Phosphatase 67 U/L (45-117); Anion Gap 8 (5-15); BUN 17 mg/dL (7-18); BUN/Creat Ratio 20.9 RATIO (10-20); CRP 8.73 mg/L (0.0-3.0); Calcium,Total 8.7 mg/dL (8.5-10.1); Chloride 111 mmol/L (98-107); Creatinine, Serum 0.81 mg/dL (0.55-1.02); EST Glomerular Filtration Rate 74 mL/min (>60); Est Glom Filt Rate - Afr Amer 89 mL/min (>60); Globulin 3.8 g/dL (2.2-4.2); Glucose 92 mg/dL (74-106); Potassium 3.3 mmol/L (3.5-5.1); Protein, Total 6.7 g/dL (6.4-8.2); Sodium Level 144 mmol/L (136-145)
[2022-08-22 10:50] LABS: Erythrocyte Sedimentation Rate 25 mm/hr (0-30)
[2022-08-22 10:52] LABS: Absolute Lymphocyte Count 2.37 X10^3/uL (0.83-4.51); Absolute Neutrophil Count 3.6 X10^3/uL (2.0-7.7); Basophil# 0.03 X10^3/uL; Basophil% 0.5 % (0-1); Eosinophil# 0.02 X10^3/uL; Eosinophils% 0.3 % (0-5); Hematocrit 35.7 % (37-47); Hemoglobin 10.3 g/dL (12.0-15.0); Lymphocyte # 2.37 X10^3/ul (0.83-4.51); Lymphocyte % 35.7 % (19-41); Mean Corp Hgb Conc 28.9 g/dL (32-36); Mean Corpuscular Hgb 25.6 pg (27.0-32.0); Mean Corpuscular Volume 88.6 fL (81-99); Monocyte# 0.63 X10^3/uL; Monocyte% 9.5 % (0-10); NRBC Flagged by Analyzer 0 % (0-5); Neutrophil # 3.55 X10^3/uL (2.7-7.7); Neutrophil % 53.5 % (47-70); Platelet Count 233 K/mm3 (150-450); RBC Distribution Width CV 14.6 % (11.6-14.6); RBC Distribution Width SD 46.8 fl (35.1-43.9); Red Blood Count 4.03 M/mm3 (4.2-5.4); White Blood Count 6.6 K/mm3 (4.4-11.0)
[2022-08-22 17:44] LABS: Magnesium 2.1 mg/dL (1.6-2.6)
== END | disposition home or self-care (01) ==
PROVIDERS: PCP Family Medicine; Visit Provider Family Medicine
DX: M06.9 Rheumatoid arthritis, unspecified (principal)
CPT/HCPCS: 36415; 80053; 83735; 84550; 85025; 85652; 86140

== ENCOUNTER → 2022-09-05 | Outpatient (CLI) | payer MEDICARE, OTHER, SELFPAY ==
[2022-09-05 10:03] LABS: Absolute Lymphocyte Count 1.04 X10^3/uL (0.83-4.51); Absolute Neutrophil Count 2.4 X10^3/uL (2.0-7.7); Basophil# 0.03 X10^3/uL; Basophil% 0.8 % (0-1); Eosinophil# 0.03 X10^3/uL; Eosinophils% 0.8 % (0-5); Hematocrit 34.8 % (37-47); Hemoglobin 10.4 g/dL (12.0-15.0); Lymphocyte # 1.04 X10^3/ul (0.83-4.51); Lymphocyte % 26.1 % (19-41); Mean Corp Hgb Conc 29.9 g/dL (32-36); Monocyte# 0.46 X10^3/uL; Monocyte% 11.5 % (0-10); NRBC Flagged by Analyzer 0 % (0-5); Neutrophil # 2.42 X10^3/uL (2.7-7.7); Neutrophil % 60.5 % (47-70); Platelet Count 205 K/mm3 (150-450); RBC Distribution Width CV 14.6 % (11.6-14.6); RBC Distribution Width SD 46.7 fl (35.1-43.9)
[2022-09-05 10:27] LABS: ALB/GLOB Ratio 0.7 RATIO (0.9-2.4); AST(SGOT) 14 U/L (15-37); Alanine Aminotransfer ALT/SGPT 16 U/L (13-56); Albumin, Serum 2.9 g/dL (3.2-5.0); Alkaline Phosphatase 69 U/L (45-117); Anion Gap 6 (5-15); BUN 12 mg/dL (7-18); BUN/Creat Ratio 14.3 RATIO (10-20); Calcium,Total 9.1 mg/dL (8.5-10.1); Chloride 109 mmol/L (98-107); Creatinine, Serum 0.84 mg/dL (0.55-1.02); EST Glomerular Filtration Rate 71 mL/min (>60); Est Glom Filt Rate - Afr Amer 86 mL/min (>60); Globulin 3.9 g/dL (2.2-4.2); Glucose 109 mg/dL (74-106); Potassium 3.9 mmol/L (3.5-5.1); Protein, Total 6.8 g/dL (6.4-8.2); Sodium Level 141 mmol/L (136-145)
== END | disposition home or self-care (01) ==
LOC: MTLAB 09:00
PROVIDERS: PCP Family Medicine; Referring Provider Internal Medicine Rheumatology; Visit Provider Internal Medicine Rheumatology
DX: M05.70 Rheumatoid arthritis with rheumatoid factor of unspecified site without organ or systems involvement (principal); Z79.899 Other long term (current) drug therapy
CPT/HCPCS: 36415; 80053; 85025

== ENCOUNTER → 2022-10-03 | Outpatient (CLI) | payer MEDICARE, OTHER, SELFPAY ==
[2022-10-03 10:22] LABS: Absolute Lymphocyte Count 2.36 X10^3/uL (0.83-4.51); Absolute Neutrophil Count 3.2 X10^3/uL (2.0-7.7); Basophil# 0.02 X10^3/uL; Basophil% 0.3 % (0-1); Eosinophil# 0.02 X10^3/uL; Eosinophils% 0.3 % (0-5); Hematocrit 36.7 % (37-47); Lymphocyte # 2.36 X10^3/ul (0.83-4.51); Lymphocyte % 38.1 % (19-41); Mean Corpuscular Hgb 26.2 pg (27.0-32.0); Mean Corpuscular Volume 87.4 fL (81-99); Mean Platelet Vol. 9.6 fl (6.2-12.0); Monocyte# 0.54 X10^3/uL; Monocyte% 8.7 % (0-10); NRBC Flagged by Analyzer 0 % (0-5); Neutrophil # 3.22 X10^3/uL (2.7-7.7); Neutrophil % 52.1 % (47-70); POSITIVE MORPHOLOGY YES; Platelet Count 232 K/mm3 (150-450); RBC Distribution Width CV 15.6 % (11.6-14.6); RBC Distribution Width SD 47.7 fl (35.1-43.9); White Blood Count 6.2 K/mm3 (4.4-11.0)
[2022-10-03 10:24] LABS: Differential Indicated SCAN CRITERIA MET
[2022-10-03 10:48] LABS: ALB/GLOB Ratio 0.8 RATIO (0.9-2.4); AST(SGOT) 11 U/L (15-37); Alanine Aminotransfer ALT/SGPT 14 U/L (13-56); Alkaline Phosphatase 63 U/L (45-117); Anion Gap 8 (5-15); BUN 14 mg/dL (7-18); BUN/Creat Ratio 16.9 RATIO (10-20); Calcium,Total 9.2 mg/dL (8.5-10.1); Chloride 108 mmol/L (98-107); Creatinine, Serum 0.83 mg/dL (0.55-1.02); EST Glomerular Filtration Rate 72 mL/min (>60); Est Glom Filt Rate - Afr Amer 88 mL/min (>60); Globulin 3.9 g/dL (2.2-4.2); Glucose 88 mg/dL (74-106); Potassium 3.3 mmol/L (3.5-5.1); Protein, Total 6.9 g/dL (6.4-8.2); Sodium Level 141 mmol/L (136-145)
== END | disposition home or self-care (01) ==
LOC: MTLAB 08:59
PROVIDERS: PCP Family Medicine; Referring Provider Internal Medicine Rheumatology; Visit Provider Internal Medicine Rheumatology
DX: M05.70 Rheumatoid arthritis with rheumatoid factor of unspecified site without organ or systems involvement (principal); M18.0 Bilateral primary osteoarthritis of first carpometacarpal joints; Z79.899 Other long term (current) drug therapy
CPT/HCPCS: 36415; 80053; 85025

== ENCOUNTER → 2022-11-11 | Outpatient (CLI) | payer MEDICARE, OTHER, SELFPAY ==
--- NOTE | 2022-11-11 08:15 | BI_ITS ---
MAMMOGRAPHY - BILATERAL SCREENING REASON FOR EXAM: Female, 72 years old. Routine annual screening examination. PERTINENT HISTORY: Mother with breast cancer. Prior right stereotactic breast biopsy and bilateral excisional breast biopsies. TECHNIQUE: Digital bilateral breast verito (3D mammographic acquisition) in the CC and MLO projections. 2-D mediolateral oblique (MLO) and craniocaudad (CC) views of both breasts were obtained. CAD: Full Field Digital Mammography with Computer Added Detection was performed. COMPARISON: Comparison is made with prior study dated November 08, 2021 and December 22, 2019. FINDINGS: Breast Composition: There are scattered areas of fibroglandular density. There are no dominant masses or suspicious calcifications. Stable small benign-appearing bilateral axillary lymph nodes. No other significant abnormalities are identified. There has been no significant change since the prior study. BI/SCRN MAMM (CAD)W/VERITO BILAT IMPRESSION: Stable bilateral screening mammogram. Yearly follow-up mammogram recommended. (A) ASSESSMENT CATEGORY: BIRADS Category 2: Benign. A letter regarding these results will be sent to the patient by the facility within 30 days. Approximately 10% of breast cancers are not detected by mammography. A normal mammogram should not delay biopsy of a clinically suspicious abnormality. [id number] Electronically Signed: Craig Lindo MD at 9:58 EDT ,
== END | disposition home or self-care (01) ==
LOC: OPBI 08:14
PROVIDERS: PCP Family Medicine; Referring Provider Nurse Practitioner Family; Visit Provider Nurse Practitioner Family
DX: Z12.31 Encounter for screening mammogram for malignant neoplasm of breast (principal)
CPT/HCPCS: 77063; 77067

== ENCOUNTER → 2022-12-13 | Outpatient (CLI) | payer MEDICARE, OTHER, SELFPAY ==
[2022-12-13 10:07] LABS: Absolute Lymphocyte Count 1.17 X10^3/uL (0.83-4.51); Absolute Neutrophil Count 2.3 X10^3/uL (2.0-7.7); Basophil# 0.03 X10^3/uL; Basophil% 0.8 % (0-1); Eosinophil# 0.08 X10^3/uL; Hematocrit 38.8 % (37-47); Hemoglobin 11.5 g/dL (12.0-15.0); Lymphocyte # 1.17 X10^3/ul (0.83-4.51); Lymphocyte % 29.3 % (19-41); Mean Corp Hgb Conc 29.6 g/dL (32-36); Mean Corpuscular Hgb 26.7 pg (27.0-32.0); Mean Corpuscular Volume 90.2 fL (81-99); Mean Platelet Vol. 10.6 fl (6.2-12.0); Monocyte# 0.43 X10^3/uL; Monocyte% 10.8 % (0-10); NRBC Flagged by Analyzer 0 % (0-5); Neutrophil # 2.27 X10^3/uL (2.7-7.7); Neutrophil % 56.8 % (47-70); Platelet Count 199 K/mm3 (150-450); RBC Distribution Width CV 15.8 % (11.6-14.6); RBC Distribution Width SD 51.7 fl (35.1-43.9)
[2022-12-13 11:04] LABS: ALB/GLOB Ratio 0.9 RATIO (0.9-2.4); AST(SGOT) 15 U/L (15-37); Alanine Aminotransfer ALT/SGPT 15 U/L (13-56); Albumin, Serum 3.2 g/dL (3.2-5.0); Alkaline Phosphatase 71 U/L (45-117); Anion Gap 7 (5-15); BUN 9 mg/dL (7-18); BUN/Creat Ratio 9.7 RATIO (10-20); Chloride 108 mmol/L (98-107); Creatinine, Serum 0.92 mg/dL (0.55-1.02); EST Glomerular Filtration Rate 64 mL/min (>60); Est Glom Filt Rate - Afr Amer 77 mL/min (>60); Globulin 3.6 g/dL (2.2-4.2); Glucose 99 mg/dL (74-106); Potassium 3.7 mmol/L (3.5-5.1); Protein, Total 6.8 g/dL (6.4-8.2); Sodium Level 141 mmol/L (136-145)
== END | disposition home or self-care (01) ==
LOC: MTLAB 08:25
PROVIDERS: PCP Family Medicine; Referring Provider Internal Medicine Rheumatology; Visit Provider Internal Medicine Rheumatology
DX: M05.79 Rheumatoid arthritis with rheumatoid factor of multiple sites without organ or systems involvement (principal); Z79.899 Other long term (current) drug therapy
CPT/HCPCS: 36415; 80053; 85025

== ENCOUNTER → 2023-02-12 | Outpatient (CLI) | payer MEDICARE, OTHER, SELFPAY ==
[2023-02-12 12:49] LABS: Absolute Lymphocyte Count 0.93 X10^3/uL (0.83-4.51); Absolute Neutrophil Count 2.8 X10^3/uL (2.0-7.7); Basophil# 0.03 X10^3/uL; Basophil% 0.7 % (0-1); Eosinophil# 0.08 X10^3/uL; Eosinophils% 1.8 % (0-5); Hematocrit 37.2 % (37-47); Hemoglobin 10.9 g/dL (12.0-15.0); Lymphocyte # 0.93 X10^3/ul (0.83-4.51); Lymphocyte % 21.1 % (19-41); Mean Corp Hgb Conc 29.3 g/dL (32-36); Mean Corpuscular Volume 92.3 fL (81-99); Mean Platelet Vol. 11.3 fl (6.2-12.0); Monocyte# 0.51 X10^3/uL; Monocyte% 11.6 % (0-10); NRBC Flagged by Analyzer 0 % (0-5); Neutrophil # 2.83 X10^3/uL (2.7-7.7); Neutrophil % 64.3 % (47-70); Platelet Count 203 K/mm3 (150-450); RBC Distribution Width CV 15.5 % (11.6-14.6); RBC Distribution Width SD 51.5 fl (35.1-43.9); Red Blood Count 4.03 M/mm3 (4.2-5.4); White Blood Count 4.4 K/mm3 (4.4-11.0)
[2023-02-12 13:09] LABS: ALB/GLOB Ratio 0.9 RATIO (0.9-2.4); AST(SGOT) 18 U/L (15-37); Alanine Aminotransfer ALT/SGPT 19 U/L (13-56); Albumin, Serum 3.2 g/dL (3.2-5.0); Alkaline Phosphatase 73 U/L (45-117); Anion Gap 7 (5-15); BUN 14 mg/dL (7-18); BUN/Creat Ratio 14.8 RATIO (10-20); Calcium,Total 9.1 mg/dL (8.5-10.1); Chloride 109 mmol/L (98-107); Creatinine, Serum 0.95 mg/dL (0.55-1.02); EST Glomerular Filtration Rate 62 mL/min (>60); Est Glom Filt Rate - Afr Amer 75 mL/min (>60); Globulin 3.7 g/dL (2.2-4.2); Glucose 110 mg/dL (74-106); Potassium 3.9 mmol/L (3.5-5.1); Protein, Total 6.9 g/dL (6.4-8.2); Sodium Level 140 mmol/L (136-145)
== END | disposition home or self-care (01) ==
PROVIDERS: PCP Family Medicine; Referring Provider Internal Medicine Rheumatology; Visit Provider Internal Medicine Rheumatology
DX: M05.79 Rheumatoid arthritis with rheumatoid factor of multiple sites without organ or systems involvement (principal); M18.0 Bilateral primary osteoarthritis of first carpometacarpal joints; Z79.899 Other long term (current) drug therapy
CPT/HCPCS: 36415; 80053; 85025

== ENCOUNTER → 2023-04-21 | Outpatient (CLI) | payer MEDICARE, OTHER, SELFPAY ==
[2023-04-21 12:32] LABS: Absolute Lymphocyte Count 0.93 X10^3/uL (0.83-4.51); Absolute Neutrophil Count 5.1 X10^3/uL (2.0-7.7); Basophil# 0.03 X10^3/uL; Basophil% 0.4 % (0-1); Eosinophils% 1.4 % (0-5); Hematocrit 38.8 % (37-47); Hemoglobin 11.9 g/dL (12.0-15.0); Lymphocyte # 0.93 X10^3/ul (0.83-4.51); Lymphocyte % 13.4 % (19-41); Mean Corp Hgb Conc 30.7 g/dL (32-36); Mean Corpuscular Hgb 27.9 pg (27.0-32.0); Mean Corpuscular Volume 90.9 fL (81-99); Mean Platelet Vol. 10.9 fl (6.2-12.0); Monocyte# 0.75 X10^3/uL; Monocyte% 10.8 % (0-10); NRBC Flagged by Analyzer 0 % (0-5); Neutrophil # 5.11 X10^3/uL (2.7-7.7); Neutrophil % 73.7 % (47-70); Platelet Count 203 K/mm3 (150-450); RBC Distribution Width CV 15.5 % (11.6-14.6); RBC Distribution Width SD 49.5 fl (35.1-43.9); Red Blood Count 4.27 M/mm3 (4.2-5.4); White Blood Count 6.9 K/mm3 (4.4-11.0)
[2023-04-21 13:32] LABS: ALB/GLOB Ratio 0.8 RATIO (0.9-2.4); AST(SGOT) 16 U/L (15-37); Alanine Aminotransfer ALT/SGPT 19 U/L (13-56); Albumin, Serum 3.3 g/dL (3.2-5.0); Alkaline Phosphatase 79 U/L (45-117); Anion Gap 6 (5-15); BUN 15 mg/dL (7-18); Chloride 109 mmol/L (98-107); Creatinine, Serum 0.94 mg/dL (0.55-1.02); EST Glomerular Filtration Rate 63 mL/min (>60); Est Glom Filt Rate - Afr Amer 76 mL/min (>60); Glucose 104 mg/dL (74-106); Potassium 3.8 mmol/L (3.5-5.1); Protein, Total 7.3 g/dL (6.4-8.2); Sodium Level 139 mmol/L (136-145)
== END | disposition home or self-care (01) ==
LOC: MTLAB 09:47
PROVIDERS: PCP Family Medicine; Referring Provider Internal Medicine Rheumatology; Visit Provider Internal Medicine Rheumatology
DX: M05.79 Rheumatoid arthritis with rheumatoid factor of multiple sites without organ or systems involvement (principal); Z79.899 Other long term (current) drug therapy
CPT/HCPCS: 36415; 80053; 85025

== ENCOUNTER 2023-05-31 14:53 | Emergency (ER) | payer MEDICARE, OTHER, SELFPAY ==
[2023-05-31 14:54] VITALS: BP 162/75; PULSE 68; RESP 16; TEMP 35.8; O2SAT 100; BMI 35.9
--- NOTE | 2023-05-31 15:07 | RAD_ITS ---
STUDY: X-RAY - LEFT ANKLE REASON FOR EXAM: Female, 73 years old. injury TECHNIQUE: 3 view(s) of the ankle. COMPARISON: None. FINDINGS: Nondisplaced fracture through the base of the medial malleolus. Fracture through the distal neck of the fibula with mild lateral displacement. Mild shift of the talus laterally. Possible nondisplaced fracture of the posterior margin of the tibial metaphysis. Normal visualized talus and calcaneus. The visualized subtalar, talonavicular, calcaneocuboid and tarsal articulations are normal. The soft tissue structures are unremarkable. RAD/Ankle min 3 Views IMPRESSION: Fractures of the distal fibula and the medial malleolus with mild lateral displacement and shift of the talus. Electronically Signed: Rolando Castañeda MD at 15:57 EST ,
[2023-05-31] MEDS: HYDROcodone Bitartrate/Apap 5/325 Tablet PO (15:10)
--- NOTE | 2023-05-31 15:10 | RAD_ITS ---
STUDY: X-RAY - LEFT KNEE REASON FOR EXAM: Female, 73 years old. injury TECHNIQUE: 3 view(s) of the knee. COMPARISON: None. FINDINGS: Normal visualized distal femur. There is lateral tibial plateau fracture involving the articular surface which is mildly depressed. Otherwise normal visualized proximal tibia and fibula. Normal proximal tibiofibular articulation. There is mild degenerative arthrosis of the medial femorotibial compartment. There is mild degenerative arthrosis of the lateral femorotibial compartment. Normal patellofemoral articulation. There is a moderate volume joint effusion. The soft tissue structures are unremarkable. RAD/Knee 3 Views IMPRESSION: Lateral tibial plateau fracture involving the articular surface which is mildly depressed. Electronically Signed: Rolando Castañeda MD at 16:02 EST ,
--- NOTE | 2023-05-31 15:26 | EDS_ITS ---
HPI <TATIANA Beckett - Last Filed: 05/31/23 17:33> History of Present Illness Chief Complaint: Fall Narrative Narrative: Patient presenting today due to a fall that occurred this afternoon. She reports that she was mopping her floors when she accidentally slipped and twisted her left knee and injured her left ankle. She was unable to put much pressure onto her left lower extremity but was able to get herself up. She did not hit her head, there was no loss of consciousness, she denies any other injury. PFSH <TATIANA Beckett - Last Filed: 05/31/23 17:33> [facility] Medical History Cholelithiasis with chronic cholecystitis COPD (chronic obstructive pulmonary disease) GERD (gastroesophageal reflux disease) Iron deficiency anemia Obesity (BMI 30-39.9) Paroxysmal supraventricular tachycardia Transient ischemic attack Home Medications hydroxychloroquine 200 mg tablet 200 mg PO BIDCM 09/18/13 [History Last Taken 09/17/13 20:00] pantoprazole 40 mg tablet,delayed release 40 mg PO DAILY 02/26/19 [History Last Taken Unknown] famotidine 20 mg tablet 20 mg PO BID 11/08/21 [History Last Taken Unknown] blood pressure monitor #1 ea 11/08/22 [Rx Last Taken Unknown] folic acid 1 mg tablet 2 mg PO DAILY 11/08/22 [History Last Taken Unknown] leucovorin calcium 15 mg tablet 15 mg PO QWEEK 11/08/22 [History Last Taken Unknown] methotrexate (PF) 7.5 mg/0.15 mL subcutaneous auto-injector 7.5 mg subcut QWEEK 11/08/22 [History Last Taken Unknown] prednisone 2.5 mg tablet 2.5 mg PO DAILY 11/08/22 [History Last Taken Unknown] sulfasalazine 500 mg tablet 1 g PO BID 11/08/22 [History Last Taken Unknown] metoprolol tartrate 50 mg tablet See Rx Instructions .Route .COMPLEX #180 tabs 04/09/23 [Rx Last Taken Unknown] hydrocodone-acetaminophen 5-325mg 5mg-325mg 1 tab PO Q4H PRN PRN Pain 3 days #12 TABLETS 05/31/23 [Rx Last Taken Unknown] Allergy/AdvReac Type Severity Reaction Status Date / Time doxycycline AdvReac PT UNSURE Verified 11/08/22 08:36 OF REACTION Family History Mother Breast cancer Surgical History H/O tubal ligation History of breast lump removal History of foot surgery History of knee surgery History of radiofrequency ablation procedure for cardiac arrhythmia (03/2003) Social History Smoking Status: Former smoker ROS <TATIANA Beckett - Last Filed: 05/31/23 17:33> ROS ED Constitutional Constitutional ED: Denies chills or fever(s) Cardiovascular Cardiovascular: Denies chest pain Respiratory/Chest Respiratory/Chest: Denies cough or dyspnea Gastrointestinal Gastrointestinal: Denies abdominal pain, nausea or vomiting Genitourinary Genitourinary ED: Denies dysuria, hematuria or urinary urgency Musculoskeletal Musculoskeletal: Reports arthralgias; Denies back pain or neck pain Integumentary Denies rash Neurologic Neurologic: Denies paresthesias or weakness EXAM <TATIANA Beckett - Last Filed: 05/31/23 17:33> Physical Exam Const Vital Signs: 05/31/23 14:54 05/31/23 14:54 05/31/23 16:53 Temperature 96.5 F L Temperature Source Temporal Pulse Rate 68 60 Respiratory Rate 16 Blood Pressure 162/75 H 147/59 H Blood Pressure Mean 104 88 Pulse Ox 100 100 Oxygen Delivery Method Room Air Room Air Room Air 05/31/23 17:47 Temperature 98 F Temperature Source Pulse Rate 60 Respiratory Rate 16 Blood Pressure 141/59 H Blood Pressure Mean 86 Pulse Ox 95 Oxygen Delivery Method Positive well nourished, well developed and no apparent distress General Appearance ED: well developed HEENT Reports normocephalic and head/scalp atraumatic Mouth ED: Yes moist mucous membranes normal Eyes PERRL and EOMs intact bilaterally Neck full ROM and supple Chest Wall inspection of chest normal Resp normal respiratory effort and clear to auscultation bilaterally Cardio regular rate and regular rhythm GI soft to palpation, non-tender, non-distended and no masses Back/Spine normal ROM and normal to inspection Extremity Extremity Narrative: Swelling to the inferior aspect of the left knee, extensor mechanism intact. Tenderness and edema to both the left lateral and medial malleolus. Left DP pulse 2+, good capillary refill, sensation intact. Neuro oriented x3, CN's II-XII intact bilaterally, moves all extremities, no focal motor deficits and no sensory deficits noted Sensorium / Orientation: awake and alert Psych mental status grossly normal and thought process normal Skin no rashes or lesions noted and no wounds <Dr. Yazan Brito DO - Last Filed: 05/31/23 18:45> Physical Exam Const Vital Signs: 05/31/23 14:54 05/31/23 14:54 05/31/23 16:53 Temperature 96.5 F L Temperature Source Temporal Pulse Rate 68 60 Respiratory Rate 16 Blood Pressure 162/75 H 147/59 H Blood Pressure Mean 104 88 Pulse Ox 100 100 Oxygen Delivery Method Room Air Room Air Room Air 05/31/23 17:47 Temperature 98 F Temperature Source Pulse Rate 60 Respiratory Rate 16 Blood Pressure 141/59 H Blood Pressure Mean 86 Pulse Ox 95 Oxygen Delivery Method Extremity Extremity Narrative: Swelling to the inferior aspect of the left knee, extensor mechanism intact. Tenderness and edema to both the left lateral and medial malleolus. Left DP pulse 2+, good capillary refill, sensation intact. Neuro Neuro Narrative: Intact sensation L1-S1 dermatomal distributions. Intact 5/5 strength in hip flexion (T12-L3). Knee extension (L2-L4). Ankle dorsiflexion (L4-L5). Ankle plantar flexion (S1). Great toe extension (L5). 2+ patellar and Achilles DTRs. [facility] <TATIANA Beckett - Last Filed: 05/31/23 17:33> [facility] Narrative Medical decision making narrative: Patient presenting today due to a mechanical fall that occurred this afternoon. She reports pain to her left knee and ankle, worse in the ankle. She did not hit her head. X-ray of the left ankle and knee obtained to rule out fracture. Left ankle shows fractures of the distal fibula and medial malleolus. X-ray of the knee shows a fracture to the lateral tibial plateau. I did consult Dr. Mary who recommends splinting the left ankle and placing patient in a knee immobilizer, crutches, and following up in the office. I did discuss discharge with the patient and she does feel comfortable going home. She reports that she does have a rollator that she can use to get around with. She was given analgesia here and will be given a prescription for [place]. RICE instructions discussed she will be discharged in stable condition. She is comfortable with plan. Radiography X-Ray: Read by ED Physician and Read by Radiologist Diagnostic Testing: Clinical Impression(s) from Imaging Studies Ankle X-Ray 05/31/23 15:07 IMPRESSION: Fractures of the distal fibula and the medial malleolus with mild lateral displacement and shift of the talus. Electronically Signed: Rolando Castañeda MD at 15:57 EST , Knee X-Ray 05/31/23 15:10 IMPRESSION: Lateral tibial plateau fracture involving the articular surface which is mildly depressed. Electronically Signed: Rolando Castañeda MD at 16:02 EST , <Dr. Yazan Brito, DO - Last Filed: 05/31/23 18:45> [facility] Narrative Medical decision making narrative: Patient presenting today due to a mechanical fall that occurred this afternoon. She reports pain to her left knee and ankle, worse in the ankle. She did not hit her head. X-ray of the left ankle and knee obtained to rule out fracture. Left ankle shows fractures of the distal fibula and medial malleolus. X-ray of the knee shows a fracture to the lateral tibial plateau. I did consult Dr. Mary who recommends splinting the left ankle and placing patient in a knee immobilizer, crutches, and following up in the office. Patient was neurovascular tact prior to and after splinting. I did discuss discharge with the patient and she does feel comfortable going home. She reports that she does have a rollator that she can use to get around with. She was given analgesia here and will be given a prescription for [place]. RICE instructions discussed she will be discharged in stable condition. She is comfortable with plan. Radiography Diagnostic Testing: Clinical Impression(s) from Imaging Studies Ankle X-Ray 05/31/23 15:07 IMPRESSION: Fractures of the distal fibula and the medial malleolus with mild lateral displacement and shift of the talus. Electronically Signed: Rolando Castañeda MD at 15:57 EST , Knee X-Ray 05/31/23 15:10 IMPRESSION: Lateral tibial plateau fracture involving the articular surface which is mildly depressed. Electronically Signed: Rolando Castañeda MD at 16:02 EST , Procedures <TATIANA Beckett - Last Filed: 05/31/23 17:33> Lower Extremity Splints Lower Extremity Splint: Orthoglass and Knee Immobilizer Splint Fabrication: Pre-fabricated Location: Left Discharge Plan Triage Chief Complaint: Fall ED Midlevel Provider: Eveline Wilkinson ED Provider: Yazan Brito Dx/Rx/DC Orders Clinical Impression: Bimalleolar fracture of left ankle, Fall, Knee fracture, left Instructions: ED Ankle Fracture, ED Fracture, Knee Prescriptions: New hydrocodone-acetaminophen 5-325 mg tablet 1 tab PO Q4H PRN PRN (Reason: Pain) 3 Days Qty: 12 0RF No Action famotidine 20 mg tablet 20 mg PO BID sulfasalazine 500 mg tablet 1 g PO BID Rx Instructions: give with food (meal/snack) leucovorin calcium 15 mg tablet 15 mg PO QWEEK prednisone 2.5 mg tablet 2.5 mg PO DAILY folic acid 1 mg tablet 2 mg PO DAILY methotrexate (PF) 7.5 mg/0.15 mL auto-injector 7.5 mg subcut QWEEK (DME) blood pressure monitor Kit See Rx Instructions .Route Qty: 1 0RF Rx Instructions: As directed hydroxychloroquine 200 MG tablet 200 mg PO BIDCM Patient Comments: mental health pantoprazole 40 MG tablet,delayed release (DR/EC) 40 mg PO DAILY metoprolol tartrate 50 mg tablet See Rx Instructions .ROUTE .COMPLEX Qty: 180 3RF Dose Instruction: TAKE 1 TABLET TWICE A DAY Rx Instructions: TAKE 1 TABLET TWICE A DAY Primary Care Provider: Jd Lozano Referrals: Jd Lozano MD [Primary Care Provider] - Shamar Mary MD [Med Staff - Active Staff] - 5-7 Days Activity Restrictions/Additional Instructions: Ice your ankle for 15 to 20 minutes at a time several times a day for the next few days. Follow-up with orthopedics. Disposition Disposition: Home, Self Care Discharge Date/Time: 05/31/23 17:48
--- OUTSIDE RECORDS SUMMARY | 2023-05-31 15:57 | XMS RPT_ITS | CCD ---
Author Name Unknown Address [address] [place] [address] Organization [facility] Care Team Providers Care [place] Filler Name Role Phone Sarahy VALDIVIA, Nicole A Unavailable Unavailable Blake, Ellie Y Unavailable MD Nitin, Mario Crump Unavailable SKIP Mehta, Kelly Zhong Unavailable Unavailabhijit Weathers RN, Nicole A Unavailable Unavailable Sarahy VALDIVIA, Nicole A Unavailable Unavailable SKIP Mehta, Kelly Zhong Unavailable Unavailabl e Blake Ellie Y Unavailable Lozano, Ellie Y Unavailable Lozano, Ellie Y Unavailable Eric Lozano MD Primary Care Provider Eric Lozano MD Primary Care Provider Eric Lozano MD Primary Care Provider Eric Lozano MD Primary Care Provider [phone] ERIC LOZANO Primary Care Unavailable BLAKE, A Primary Care Unavailable MARS RUSSO Referring Unavailable BLAKE, A Primary Care Unavailable ALBERT HENDRICKS Attending Unavailable MARS RUSSO Referring Unavailable LOZANO, A Primary Care Unavailable ALBERT HENDRICKS Referring Unavailable LOZANO, A Primary Care Unavailable LOZANO, A Primary Care Unavailable LOZANO, A Primary Care Unavailable LOZANO, A Primary Care Unavailable LOZANO, A Primary Care Unavailable EVERTON MANCINI Referring Unavailable LOZANO, A Primary Care Unavailable Allergies Allergy Classification Reported Allergen(s) Allergy Type Date of Onset Reaction(s) Facility (13 sources) Doxycycline; Translations: [DOXYCYCLINE] Drug Allergy 2 Unknown [facility] (12 sources) environmental [Other] Propensity to adverse reactions 7 [facility] Work Phone: (11 sources) Amoxicillin / Clavulanate; Translations: [AMOXICILLIN-POT CLAVULANATE] Drug Allergy 6 GI Upset [facility] (1 source) OTHER; Translations: [OTHER] Propensity to adverse reactions (disorder) 7 [facility] Medications Current Medications Medication Drug Class(es) Dates Sig (Normalized) Sig (Original) amoxicillin 875 mg / clavulanate 125 mg oral tablet (1 source) Penicillin-class Antibacterial Start: 09-14-2021 End: 09-24-2021 take 1 tablet by mouth twice daily amoxicillin-clav ulanic acid (AUGMENTIN) 875-125 mg per tablet Take 1 tablet by mouth twice daily for 10 days. 20 tablet 0 09/14/2021 09/24/2021 Active Completed/Discontinued Medications Medication Drug Class(es) Dates Sig (Normalized) Sig (Original) acetaminophen 325 mg / HYDROcodone bitartrate 5 mg oral tablet (12 sources) Opioid Agonist Start: 10-16-2016 End: 10-16-2016 HYDROCODONE-ACETAM INOPHEN 5-325 MG TABS as directed HYDROCODONE-ACETAM INOPHEN [id number] Mario Taveras MD [id number] 200 actuat albuterol 0.09 mg/actuat metered dose inhaler (20 sources) beta2-Adrenergic Agonist Start: 09-14-2021 take 2 puff(s) by inhalation every six hours as needed for wheezing albuterol HFA (PROVENTIL HFA, VENTOLIN HFA) 90 mcg/actuation inhaler Inhale 2 Puffs as instructed every 6 hours as needed for wheezing/shortness of breath. 1 Each 0 09/14/2021 Active Problems Active Problems Problem Classification Problem Date Documented Date Episodic/Chronic Acquired foot deformities (12 sources) Acquired hallux malleus; Translations: [Other hammer toe(s) (acquired), unspecified foot] Onset: 05-26-2007 05-26-2007 Chronic Cardiac dysrhythmias (20 sources) Supraventricular tachycardia; Translations: [Paroxysmal supraventricular tachycardia] Onset: 10-29-2010 10-29-2010 Chronic Diseases of mouth; excluding dental (1 source) Finding of salivary apparatus; Translations: [Other diseases of salivary glands] Episodic Diseases of white blood cells (20 sources) Neutropenia; Translations: [Neutropenia] Onset: 11-22-2014 11-22-2014 Chronic Fracture of lower limb (4 sources) Closed fracture proximal phalanx, toe ; Translations: [Nondisplaced fracture of proximal phalanx of right lesser toe(s), initial encounter for closed fracture] Onset: 02-11-2023 01-29-2023 Episodic Immunizations and screening for infectious disease (1 source) Suspected disease caused by 2019-nCoV; Translations: [Suspected COVID-19 virus infection] Episodic Other injuries and conditions due to external causes (1 source) Injury of toe of right foot; Translations: [Unspecified injury of right foot, initial encounter] 01-29-2023 Episodic Other lower respiratory disease (3 sources) Cough; Translations: [Cough] Episodic Other lower respiratory disease (1 source) Lower respiratory tract infection; Translations: [Unspecified acute lower respiratory infection] 12-23-2022 Episodic Other nutritional; endocrine; and metabolic disorders (8 sources) Body mass index (BMI) 34.0-34.9, adult; Translations: [Body mass index (BMI) 34.0-34.9, adult] Onset: 10-16-2016 10-16-2016 Chronic Other upper respiratory disease (12 sources) Chronic rhinitis; Translations: [Chronic rhinitis] Onset: 06-22-2007 06-22-2007 Chronic Other upper respiratory infections (1 source) Chronic sinusitis; Translations: [Chronic sinusitis, unspecified] Chronic Other upper respiratory infections (1 source) Acute upper respiratory infection; Translations: [Acute upper respiratory infection, unspecified] Episodic Rheumatoid arthritis and related disease (12 sources) Rheumatoid arthritis, unspecified; Translations: [Rheumatoid arthritis] Onset: 07-22-2006 06-22-2007 Chronic Substance-related disorders (12 sources) Tobacco user; Translations: [Nicotine dependence, unspecified, uncomplicated] Onset: 06-22-2007 06-30-2007 Chronic Unclassified (5 sources) Preoperative cardiovascular examination ; Translations: [Encounter for preprocedural cardiovascular examination] Onset: 10-11-2016 10-11-2016 Unclassified (1 source) Acute cough; Translations: [Acute cough] Onset: 09-26-2022 Viral infection (1 source) Viral disease; Translations: [Viral infection, unspecified] Episodic Past or Other Problems Problem Classification Problem Date Documented Date Episodic/Chronic Cardiac dysrhythmias (12 sources) Palpitations; Translations: [Palpitations] Onset: 06-22-2007 06-22-2007 Episodic Deficiency and other anemia (20 sources) Anemia; Translations: [Iron deficiency anemia] Onset: 05-09-2014 Resolved: 10-16-2016 05-09-2014 Episodic Deficiency and other anemia (4 sources) Iron deficiency anemia; Translations: [Iron deficiency anemia, unspecified] Onset: 07-25-2015 07-25-2015 Episodic Fluid and electrolyte disorders (10 sources) Hypokalemia; Translations: [Hypokalemia] Onset: 10-29-2010 10-29-2010 Episodic Other circulatory disease (10 sources) Electrocardiogram abnormal; Translations: [Abnormal electrocardiogram [ECG] [EKG]] Onset: 10-29-2010 10-29-2010 Episodic Other connective tissue disease (12 sources) Calcaneal spur; Translations: [Calcaneal spur, unspecified foot] Onset: 07-22-2006 07-22-2006 Episodic Skin and subcutaneous tissue infections (12 sources) Disorder of nail; Translations: [Cellulitis of unspecified toe] Onset: 04-17-2007 04-17-2007 Episodic Unclassified (10 sources) Family history of malignant neoplasm of breast; Translations: [Family history of malignant neoplasm of breast] 05-09-2014 Episodic Unclassified (10 sources) Screening for malignant neoplasm of breast ; Translations: [Encounter for other screening for malignant neoplasm of breast] Onset: 01-22-2016 Resolved: 10-16-2016 01-22-2016 Results Test Name Value Interpretation Reference Range Facil ity Vital Signs Date Time Vital Sign Value Performing Clinician Facility 01-29-2023 12:21-0400 Body temperature 98.2 [degF] Mars Russo APRN.CNP Work Phone: [facility] 01-29-2023 12:21-0400 Body weight 103.15 kg Mars Russo APRN.CNP Work Phone: [facility] 01-29-2023 12:21-0400 Diastolic blood pressure 76 mm[Hg] Mars Karan GAMBLING DEALER.HYDROELECTRIC MACHINERY MECHANIC Work Phone: [facility] 01-29-2023 12:21-0400 Heart rate 66 /min Mars Karan GAMBLING DEALER.HYDROELECTRIC MACHINERY MECHANIC Work Phone: [facility] 01-29-2023 12:21-0400 Respiratory rate 16 /min Mars Karan GAMBLING DEALER.HYDROELECTRIC MACHINERY MECHANIC Work Phone: [facility] 01-29-2023 12:21-0400 SaO2% (BldA) [Mass fraction] 96 % Mars Karan GAMBLING DEALER.HYDROELECTRIC MACHINERY MECHANIC Work Phone: [facility] 01-29-2023 12:21-0400 Systolic blood pressure 122 mm[Hg] Mars Karan GAMBLING DEALER.HYDROELECTRIC MACHINERY MECHANIC Work Phone: [facility] 12-23-2022 10:38-0400 Body temperature 97.2 [degF] Mars Karan GAMBLING DEALER.HYDROELECTRIC MACHINERY MECHANIC Work Phone: [facility] 12-23-2022 10:38-0400 Body weight 102.6 kg Mars Karan GAMBLING DEALER.HYDROELECTRIC MACHINERY MECHANIC Work Phone: [facility] 12-23-2022 10:38-0400 Diastolic blood pressure 68 mm[Hg] Mars Karan GAMBLING DEALER.HYDROELECTRIC MACHINERY MECHANIC Work Phone: [facility] 12-23-2022 10:38-0400 Heart rate 85 /min Mars Karan GAMBLING DEALER.HYDROELECTRIC MACHINERY MECHANIC Work Phone: [facility] 12-23-2022 10:38-0400 Respiratory rate 21 /min Mars Karan GAMBLING DEALER.HYDROELECTRIC MACHINERY MECHANIC Work Phone: [facility] 12-23-2022 10:38-0400 SaO2% (BldA) [Mass fraction] 97 % Mars Karan GAMBLING DEALER.HYDROELECTRIC MACHINERY MECHANIC Work Phone: [facility] 12-23-2022 10:38-0400 Systolic blood pressure 150 mm[Hg] Mars Karan GAMBLING DEALER.HYDROELECTRIC MACHINERY MECHANIC Work Phone: [facility] 09-26-2022 08:50-0400 Body temperature 99.39 [degF] Everton [facility] GAMBLING DEALER.HYDROELECTRIC MACHINERY MECHANIC Work Phone: [facility] 09-26-2022 08:50-0400 Body weight 102.97 kg Everton Greene[facility] GAMBLING DEALER.HYDROELECTRIC MACHINERY MECHANIC Work Phone: [facility] 09-26-2022 08:50-0400 Diastolic blood pressure 88 mm[Hg] Everton [facility] GAMBLING DEALER.HYDROELECTRIC MACHINERY MECHANIC Work Phone: [facility] 09-26-2022 08:50-0400 Heart rate 76 /min Everton [facility] GAMBLING DEALER.HYDROELECTRIC MACHINERY MECHANIC Work Phone: [facility] 09-26-2022 08:50-0400 Respiratory rate 18 /min Everton Greeney[facility] GAMBLING DEALER.HYDROELECTRIC MACHINERY MECHANIC Work Phone: [facility] 09-26-2022 08:50-0400 SaO2% (BldA) [Mass fraction] 96 % Everton Greene[facility] GAMBLING DEALER.HYDROELECTRIC MACHINERY MECHANIC Work Phone: [facility] 09-26-2022 08:50-0400 Systolic blood pressure 134 mm[Hg] Everton [facility] GAMBLING DEALER.HYDROELECTRIC MACHINERY MECHANIC Work Phone: [facility] 08-15-2022 18:20-0400 Body temperature 98.1 [degF] Mars Karan GAMBLING DEALER.HYDROELECTRIC MACHINERY MECHANIC Work Phone: [facility] 08-15-2022 18:20-0400 Body weight 108.14 kg Mars Russo GAMBLING DEALER.HYDROELECTRIC MACHINERY MECHANIC Work Phone: [facility] 08-15-2022 18:20-0400 Diastolic blood pressure 74 mm[Hg] Mars Karan GAMBLING DEALER.HYDROELECTRIC MACHINERY MECHANIC Work Phone: [facility] 08-15-2022 18:20-0400 Heart rate 63 /min Mars Russo GAMBLING DEALER.HYDROELECTRIC MACHINERY MECHANIC Work Phone: [facility] 08-15-2022 18:20-0400 Respiratory rate 16 /min Mars Russo GAMBLING DEALER.HYDROELECTRIC MACHINERY MECHANIC Work Phone: [facility] 05-04-2023 18:20-0400 SaO2% (BldA) [Mass fraction] 97 % Mars Russo GAMBLING DEALER.HYDROELECTRIC MACHINERY MECHANIC Work Phone: [facility] 08-15-2022 18:20-0400 Systolic blood pressure 130 mm[Hg] Mars Russo GAMBLING DEALER.HYDROELECTRIC MACHINERY MECHANIC Work Phone: [facility] 04-13-2022 08:32-0500 Body temperature 98.49 [degF] Mars Russo GAMBLING DEALER.HYDROELECTRIC MACHINERY MECHANIC Work Phone: [facility] 04-13-2022 08:32-0500 Body weight 107.05 kg Mars Russo GAMBLING DEALER.HYDROELECTRIC MACHINERY MECHANIC Work Phone: [facility] 04-13-2022 08:32-0500 Diastolic blood pressure 68 mm[Hg] Mars Russo GAMBLING DEALER.HYDROELECTRIC MACHINERY MECHANIC Work Phone: [facility] 04-13-2022 08:32-0500 Heart rate 88 /min Mars Russo GAMBLING DEALER.HYDROELECTRIC MACHINERY MECHANIC Work Phone: [facility] 04-13-2022 08:32-0500 Respiratory rate 18 /min Mars Russo GAMBLING DEALER.HYDROELECTRIC MACHINERY MECHANIC Work Phone: [facility] 04-13-2022 08:32-0500 SaO2% (BldA) [Mass fraction] 99 % Mars Russo GAMBLING DEALER.HYDROELECTRIC MACHINERY MECHANIC Work Phone: [facility] 04-13-2022 08:32-0500 Systolic blood pressure 122 mm[Hg] Mars Russo GAMBLING DEALER.HYDROELECTRIC MACHINERY MECHANIC Work Phone: [facility] 03-14-2022 09:52-0500 Body temperature 100 [degF] Anny Roach GAMBLING DEALER.HYDROELECTRIC MACHINERY MECHANIC Work Phone: [facility] 03-14-2022 09:52-0500 Body weight 106.69 kg Anny Roach GAMBLING DEALER.HYDROELECTRIC MACHINERY MECHANIC Work Phone: [facility] 03-14-2022 09:52-0500 Diastolic blood pressure 86 mm[Hg] Anny Roach GAMBLING DEALER.HYDROELECTRIC MACHINERY MECHANIC Work Phone: [facility] 03-14-2022 09:52-0500 Heart rate 74 /min Anny Roach APRN.HYDROELECTRIC MACHINERY MECHANIC Work Phone: [facility] 03-14-2022 09:52-0500 Respiratory rate 18 /min Anny Roach APRN.HYDROELECTRIC MACHINERY MECHANIC Work Phone: [facility] 03-14-2022 09:52-0500 SaO2% (BldA) [Mass fraction] 97 % Anny Roach APRN.HYDROELECTRIC MACHINERY MECHANIC Work Phone: [facility] 03-14-2022 09:52-0500 Systolic blood pressure 142 mm[Hg] Anny Roach APRN.HYDROELECTRIC MACHINERY MECHANIC Work Phone: [facility] 09-14-2021 10:05-0400 Body temperature 99 [degF] Anny Roach APRN.HYDROELECTRIC MACHINERY MECHANIC Work Phone: [facility] 09-14-2021 10:05-0400 Body weight 107.78 kg Anny Roach APRN.HYDROELECTRIC MACHINERY MECHANIC Work Phone: [facility] 09-14-2021 10:05-0400 Diastolic blood pressure 94 mm[Hg] Anny Roach APRN.HYDROELECTRIC MACHINERY MECHANIC Work Phone: [facility] 09-14-2021 10:05-0400 Heart rate 85 /min Anny Roach APRN.HYDROELECTRIC MACHINERY MECHANIC Work Phone: [facility] 09-14-2021 10:05-0400 Respiratory rate 22 /min Anny Roach APRN.HYDROELECTRIC MACHINERY MECHANIC Work Phone: [facility] 09-14-2021 10:05-0400 SaO2% (BldA) [Mass fraction] 97 % Anny Roach APRN.HYDROELECTRIC MACHINERY MECHANIC Work Phone: [facility] 09-14-2021 10:05-0400 Systolic blood pressure 168 mm[Hg] Anny Roach APRN.HYDROELECTRIC MACHINERY MECHANIC Work Phone: [facility] 09-07-2021 10:22-0400 Body temperature 98.29 [degF] Anny Roach APRN.HYDROELECTRIC MACHINERY MECHANIC Work Phone: [facility] 09-07-2021 10:22-0400 Body weight 110.68 kg Anny Roach APRN.HYDROELECTRIC MACHINERY MECHANIC Work Phone: [facility] 09-07-2021 10:22-0400 Diastolic blood pressure 82 mm[Hg] Anny Roach APRN.HYDROELECTRIC MACHINERY MECHANIC Work Phone: [facility] 09-07-2021 10:22-0400 Heart rate 82 /min Anny Roach APRN.HYDROELECTRIC MACHINERY MECHANIC Work Phone: [facility] 09-07-2021 10:22-0400 Respiratory rate 24 /min Anny Roach APRN.HYDROELECTRIC MACHINERY MECHANIC Work Phone: [facility] 09-07-2021 10:22-0400 SaO2% (BldA) [Mass fraction] 93 % Anny Roach APRN.HYDROELECTRIC MACHINERY MECHANIC Work Phone: [facility] 09-07-2021 10:22-0400 Systolic blood pressure 152 mm[Hg] Anny Roach APRN.HYDROELECTRIC MACHINERY MECHANIC Work Phone: [facility] 10-16-2016 15:12-0400 Heart rate 48 /min [facility] Work Phone: 10-16-2016 14:46-0400 BMI (Body Mass Index) 34.85 kg/m2 [facility] Work Phone: 10-16-2016 14:46-0400 BP Diastolic 60 mm[Hg] [facility] Work Phone: 10-16-2016 14:46-0400 BP Systolic 122 mm[Hg] [facility] Work Phone: 10-16-2016 14:46-0400 Height 175.26 cm [facility] Work Phone: 10-16-2016 14:46-0400 Pulse (Heart Rate) 52 /min [facility] Work Phone: 10-16-2016 14:46-0400 Respiratory Rate 18 /min [facility] Work Phone: 10-16-2016 14:46-0400 Weight 107.05 kg Ellie Lozano [facility] Work Phone: 01-22-2016 10:56-0400 BMI (Body Mass Index) 36.5 kg/m2 Nicole Weathers RN [facility] Work Phone: 01-22-2016 10:56-0400 Body Temperature 98 [degF] Nicole Weathers RN [facility] Work Phone: 01-22-2016 10:56-0400 BP Diastolic 75 mm[Hg] Nicole Weathers RN [facility] Work Phone: 01-22-2016 10:56-0400 BP Systolic 131 mm[Hg] Nicole Weathers RN [facility] Work Phone: 01-22-2016 10:56-0400 BSA (Body Surface Area) 2.26 m2 Nicole Weathers RN [facility] Work Phone: 01-22-2016 10:56-0400 Height 175.26 cm Nicole Weathers RN [facility] Work Phone: 01-22-2016 10:56-0400 Pulse (Heart Rate) 68 /min Nicole Weathers RN [facility] Work Phone: 01-22-2016 10:56-0400 Pulse Oximetry 95 % Nicole Weathers RN [facility] Work Phone: 01-22-2016 10:56-0400 Respiratory Rate 18 /min Nicole Weathers RN [facility] Work Phone: 01-22-2016 10:56-0400 Weight 112.36 kg Nicole Weathers RN [facility] Work Phone: 01-22-2016 10:56-0400 Weight 112.13 kg Nicole Weathers RN [facility] Work Phone: 07-25-2015 11:17-0400 Body Temperature 98.01 [degF] Nicole Weathers RN [facility] Work Phone: 05-09-2014 13:39-0500 Height 175.26 cm Nicole Weathers RN [facility] Work Phone: Encounters Encounter Date Encounter Type Care Provider Facility Start: 02-25-2023 End: 02-25-2023 ambulatory ALBERT HENDRICKS Facility:[facility] Start: 02-25-2023 End: 02-25-2023 Subsequent hospital visit by physician [facility] Work Phone: Radiology Procedures Date Procedure Procedure Detail Performing Clinician Start: 01-29-2023 Radex toe minimum 2 views Mars Russo APRN.CNP Work Phone: Start: 10-16-2016 End: 10-16-2016 Dietary management education, guidance, and counseling Ellie Lozano Start: 10-11-2016 Preoperative cardiovascular examination Pre-op cardiovascular exam Kelly Mehta RN Start: 01-22-2016 End: 10-16-2016 Screening for malignant neoplasm of breast Screening for breast cancer Kelly Mehta RN Start: 10-23-2015 End: 10-23-2015 *CMP Complete Metabolic Panel Ana Hackett Work Phone: Start: 10-23-2015 End: 10-23-2015 Ferritin Perezstuart Zhong Alacarlita Work Phone: Start: 10-23-2015 End: 10-23-2015 Iron Ana Hackett Work Phone: Start: 10-23-2015 End: 10-23-2015 Iron binding capacity [Mass/volume] in Serum or Plasma Ana Hackett Work Phone: Start: 10-23-2015 End: 10-23-2015 Lactate dehydrogenase (LDH) Ana Zhong Alacarlita Work Phone: Start: 10-23-2015 End: 10-23-2015 Urate Ana Zhong Alacarlita Work Phone: Start: 06-27-2015 End: 06-27-2015 *CMP Complete Metabolic Panel Ana Hackett Work Phone: Start: 06-27-2015 End: 06-28-2015 Cobalamins (Vitamin B12) Ana Hackett Work Phone: Start: 06-27-2015 End: 06-27-2015 Ferritin Ana Hackett Work Phone: Start: 06-27-2015 End: 06-27-2015 Iron Ana Hackett Work Phone: Start: 06-27-2015 End: 06-27-2015 Iron binding capacity [Mass/volume] in Serum or Plasma Ana Hackett Work Phone: Start: 06-27-2015 End: 06-27-2015 Lactate dehydrogenase (LDH) Ana Hackett Work Phone: Start: 06-27-2015 End: 06-27-2015 Urate Ana Hackett Work Phone: Start: 01-03-2015 End: 01-03-2015 *CBC with Differential Ana Hackett Work Phone: Start: 11-15-2014 End: 11-16-2014 *CMP Complete Metabolic Panel Ana Hackett Work Phone: Start: 11-15-2014 End: 11-16-2014 Ferritin Ana Hackett Work Phone: Start: 11-15-2014 End: 11-16-2014 Lactate dehydrogenase (LDH) Ana Hackett Work Phone: Start: 11-15-2014 End: 11-16-2014 Urate Ana Hackett Work Phone: Start: 08-15-2014 End: 11-08-2014 *CBC with Differential Ana Hackett Work Phone: Start: 08-15-2014 End: 08-15-2014 *CMP Complete Metabolic Panel Ana Hackett Work Phone: Start: 08-15-2014 End: 11-08-2014 *MISC - Miscellaneous Lab Test #1 Ana Hackett Work Phone: Start: 08-15-2014 End: 08-16-2014 Cobalamins (Vitamin B12) Ana Hackett Work Phone: Start: 08-15-2014 End: 08-15-2014 Ferritin Ana Hackett Work Phone: Start: 08-15-2014 End: 08-18-2014 Haptoglobin Ana Hackett Work Phone: Start: 08-15-2014 End: 08-15-2014 Iron Ana Hackett Work Phone: Start: 08-15-2014 End: 08-15-2014 Iron binding capacity [Mass/volume] in Serum or Plasma Ana Hackett Work Phone: Start: 08-15-2014 End: 08-15-2014 Lactate dehydrogenase (LDH) Ana Hackett Work Phone: Start: 08-15-2014 End: 08-15-2014 Urate Ana Hackett Work Phone: Start: 06-29-2007 Mammography Anny Roach APRN.HYDROELECTRIC MACHINERY MECHANIC Work Phone: Start: 06-26-2007 Lipid 1996 panel - Serum or Plasma Mars Russo APRN.HYDROELECTRIC MACHINERY MECHANIC Work Phone: Plan of Treatment Date Care Activity Detail Author Start: 11-17-2024 Urine microalbumin profile DTaP,Tdap,Td Vaccine (2 - Td or Tdap) [facility] Start: 12-13-[address] [facility] Start: 09-26-2022 End: 10-10-2022 Influenza virus A and B RNA and SARS-CoV-2 (COVID-19) N gene panel - Respiratory specimen by JANA with probe detection [facility] Work Phone: Immunizations Immunization Date Immunization Notes Care Provider Fa cilistephan 03-01-2019 influenza virus vacc ine, unspecified formulation Mars Russo APRN.HYDROELECTRIC MACHINERY MECHANIC Work Phone: [facility] Payers Date Payer Category Payer Medicare MEDICARE MEDICAR E A AND B [id number] 2017-Present [phone] [address] [address] [place] [address] Medicare [id number] 2017 Medicare MEDICARE MEDICAR E A AND B [id number] 2017-Present [phone] [place] [address] Medicare [id number] 2017 Medicare [id number] 2017 Medicare [id number] 2017 Private Health Insurance HUMANA HUMANA MEDICARE SUPPLEMENT [id number] 2017-Present [phone] [address] [address] [place] [address] Indemnity [id number] 2017 Private Health Insurance HUMANA HUMANA MEDICARE SUPPLEMENT [id number] 2017-Present [phone] [address] [address] [place] [address] Indemnity [id number] Social History Date Type Detail Facility Tobacco smoking stat us MTIS Smokes tobacco daily [facility] End: 04-14-2012 History of tobacco use Cigarette Smoker [facility] Start: 09-07-2021 End: 02-11-2023 Alcohol intake Current non-drinker of alcohol (finding) [facility] Start: 1950 Sex Assigned At Not on file [facility] Start: 09-14-2021 End: 02-11-2023 Tobacco smoking status NHIS Ex-smoker [facility] Start: 09-14-2021 End: 02-11-2023 Cigarettes smoked current (pack per day) - Reported 1 [facility] Start: 09-14-2021 End: 02-11-2023 Tobacco use and exposure Smokeless tobacco non-user [facility] Start: 09-14-2021 End: 03-14-2022 Tobacco Comment d/c 2009 [facility] Start: 09-04-2021 End: 03-14-2022 Exposure to SARS-CoV-2 (event) Not sure [facility] Work Phone: End: 04-14-2012 History of tobacco use Current smoker [facility] Start: 12-23-2022 End: 02-11-2023 Tobacco use panel [facility] National Score (1-10 0), lower number is lower risk Not on file [facility] Clinical Notes 07-15-2007 to 02-25-2023 Shawna Florence RT(R) - 02/25/2023 9:40 AM ESTPatient InstructionsAlbert Hendricks - 02/11/2023 9:03 AM EDShanti Briones LPN - 02/11/2023 8:43 AM EDTPatient InstructionsPatient Instructions Note Date & Type Note Facility 02-25-2023 Note HNO ID: [id number] Author: Shawna Florence RT(R) Service: ? Author Type: Technologist Type: Progress Notes Filed: 02/25/2023 11:07 AM Note Text: Radiology Service Progress Note PATIENT NAME: Ariella Godfrey DATE OF SERVICE: February 25, 2023 TIME: 11:07 AM PATIENT IDENTITY VERIFICATION COMPLETED USING TWO (2) IDENTIFIERS: Name and Date of confirmed by patient verbally. FALL SCREENING: Has the patient had 2 falls in the last year or 1 fall with injury or currently using an Ambulatory Assistive Device (Walker, Cane, Wheelchair, Crutches, etc.)? No PATIENT GENDER DATA: Female. status: : No status: NO. PATIENT RELEVANT IMPLANT DATA REVIEWED: Not Applicable RADIOLOGY DEPARTMENT: General X-ray: Exam(s) Completed: Lower Extremity X-Ray(s): Toes, Right, 2ND DIGIT PERIPHERAL IV DATA: Not applicable SIGNED BY: RT Romario(Fabrice) February 25, 2023 11:07 AM [facility] 02-25-2023 History of Presen t illness Narrative Radiology Service Progress Note PATIENT NAME: Ariella Godfrey DATE OF SERVICE: February 25, 2023 TIME: 11:07 AM PATIENT IDENTITY VERIFICATION COMPLETED USING TWO (2) IDENTIFIERS: Name and Date of confirmed by patient verbally. FALL SCREENING: Has the patient had 2 falls in the last year or 1 fall with injury or currently using an Ambulatory Assistive Device (Walker, Cane, Wheelchair, Crutches, etc.)? No PATIENT GENDER DATA: Female. status: : No status: NO. PATIENT RELEVANT IMPLANT DATA REVIEWED: Not Applicable RADIOLOGY DEPARTMENT: General X-ray: Exam(s) Completed: Lower Extremity X-Ray(s): Toes, Right, 2ND DIGIT PERIPHERAL IV DATA: Not applicable SIGNED BY: RT Romario(R) February 25, 2023 11:07 AM documented in this encounter [facility] 02-11-2023 Note HNO ID: [id number] Author: Albert Hendricks Service: ? Author Type: Physician Type: Progress Notes Filed: 02/11/2023 9:12 AM Note Text: Consultation requested by Dr. Russo for an opinion regarding right 2nd toe fracture. My final recommendations will be communicated back to the requesting physician by way of shared Medical record or letter to requesting physician via US mail. Initial Podiatric Office Visit: Chief Complaint: This 73 year old female who presents with chief complaint:fracture of right 2nd toe HPI Patient presents to clinic for evaluation of right 2nd toe She broke her right 2nd toe 3 weeks ago when she stubbed her toe She states she waited a week to present to urgent care. She presented to urgent care because the toe was sollen She is wearing surgical shoe at home but when she is out and about, she wears sneakers She takes tylenol for the pain. PAIN EVALUATION 02/11/2023 0844 Pain Level: 6 Pain Location: Toe Description: Burning Duration Amount of Time: 3 Duration Units: Weeks Frequency: Continuous Intervention/Comfort measure: Reposition;Relaxation;Medicatio n No results found for: HBA1C PCP: Eric Lozano MD PAST MEDICAL HISTORY Diagnosis Date Esophageal reflux Mitral valve disorders(424.0) Other premature beats Rheumatoid arthritis(714.0) Current Outpatient Medications Medication Sig famotidine (PEPCID) 20 mg tablet potassium chloride in water 10 mEq/100 mL Inject 10 mEq intravenously one time only. pantoprazole sodium (PANTOPRAZOLE ORAL) Take by mouth. folic acid 1 mg tablet Take 1 mg by mouth two times a day. methotrexate, PF, 25 mg/mL soln Inject 1/2 milliliter(s) Subcutaneous once a week, single use vials, use and discard benzonatate (TESSALON PERLES) 100 mg capsule Take 1 capsule by mouth three times daily as needed for cough. sulfaSALAzine EC (AZULFIDINE EN) 500 mg EC tablet predniSONE (DELTASONE) 10 mg tablet 2.5 mg. albuterol HFA (PROVENTIL HFA, VENTOLIN HFA) 90 mcg/actuation inhaler Inhale 2 Puffs as instructed every 6 hours as needed for wheezing/shortness of breath. fexofenadine hcl(PILLO 180 MG TAB) Take one(1) tablet daily. BUDESONIDE 32 MCG/ACTUATION NASAL SPRAY once spray each nostril once daily prn LOPRESSOR 100 MG TAB Take one(1) tablet twice daily. PLAQUENIL 200 MG TAB Take one(1) tablet twice daily. No current facility-administered medications for this visit. ALLERGIES Allergen Reactions Amoxicillin-Pot Cla* GI Upset Doxycycline Unknown Makes her very ill when she takes it Environmental [Othe* perfumes, pollen, scent in detergent all cause rhinitis PAST SURGICAL HISTORY Procedure Laterality Date LIG/TRNSXJ FLP TUBE ABDL/VAG APPR UNI/BI 1976 Tubal ligation PAST SURGICAL HISTORY OF bilateral lumpectomies- benign PAST SURGICAL HISTORY OF 07/22/2007 Left plantar fascitomy and left 5th hammertoe correction FAMILY HISTORY Problem Relation Age of Onset Breast Cancer Mother None Father father unknown Social History Tobacco Use Smoking status: Former Packs/day: 1.00 Years: 30.00 Additional pack years: 0.00 Total pack years: 30.00 Types: Cigarettes Quit date: 2012 Years since quittin.8 Smokeless tobacco: Never Tobacco comments: d/c 2009 Substance Use Topics Alcohol use: No Drug use: No REVIEW OF SYSTEMS GENERAL: Negative for Malaise, significant weight loss, fever RESPIRATORY: Negative for cough, wheezing and shortness of breath CARDIOVASCULAR: Negative for chest pain, leg swelling and palpitations GI: Negative for abdominal discomfort, blood in stools or black stools and change in bowel habits : Negative for dysuria, frequency and incontinence MUSCULOSKELETAL: Negative for joint pain or swelling, back pain, and muscle pain. SKIN: Negative for lesions, rash, and itching. HEMATOLOGY/LYMPHOLOGY Negative for prolonged bleeding, bruising easily, and swollen nodes. ENDOCRINE: Negative for cold or heat intolerance, polyuria, polydipsia and goiter. NEURO: negative Physical Exam: Constitutional: Pt is a well developed 73 year old female who is alert, oriented and cooperative Eyes: Following during examination. No redness or drainage. Respiratory: RR normal and nonlabored. Even breathing. No evidence of distress or shortness of breath. Psychology: Patient is engaged during conversation. Normal affect and mood. Does not appear depressed or anxious during encounter. Vascular: Dorsalis pedis and posterior tibial pulses palpable as b/l Capillary Fill time < 5 seconds to digits 1-5 b/l Skin temperature warm to warm proximal to distal b/l Hair growth present to digits Neurological: intact light touch/epicritic sensation b/l intact protective sensation no significant neurological deficits Dermatological: Nails 1-5 b/l appear normal. Webspaces clean and dry 1-4 b/l. Skin appears well hydrated and supple. good color, t (more content not included)... [facility] 02-11-2023 Note HNO ID: [id number] Author: Shanti Lozano LPN Service: ? Author Type: LICENSED NURSE Type: Progress Notes Filed: 02/11/2023 9:12 AM Note Text: AMB ROOMING INTAKE FLOWSHEET DATA Pain Pain Level: 6 Pain Location: Toe Description: Burning Duration Amount of Time: 3 Duration Units: Weeks Frequency: Continuous Intervention/Comfort measure: Reposition, Relaxation, Medication Patient presents with: Right Foot - New, Pain, Fracture, Swelling Shanti Lozano LPN [facility] 02-11-2023 Instructions Albert Hendricks - 02/11/2023 9:08 AM EDT You have fracture of right 2nd toe. Continue with post-op shoe (surgical) or firm sole sneaker Repeat xrays in 2 weeks documented in this encounter [facility] 02-11-2023 History of Presen t illness Narrative Consultation requested by Dr. Russo for an opinion regarding right 2nd toe fracture. My final recommendations will be communicated back to the requesting physician by way of shared Medical record or letter to requesting physician via [place] mail. Initial Podiatric Office Visit: Chief Complaint: This 73 year old female who presents with chief complaint:fracture of right 2nd toe HPI Patient presents to clinic for evaluation of right 2nd toe She broke her right 2nd toe 3 weeks ago when she stubbed her toe She states she waited a week to present to urgent care. She presented to urgent care because the toe was sollen She is wearing surgical shoe at home but when she is out and about, she wears sneakers She takes tylenol for the pain. PAIN EVALUATION 02/11/2023 0844 Pain Level: 6 Pain Location: Toe Description: Burning Duration Amount of Time: 3 Duration Units: Weeks Frequency: Continuous Intervention/Comfort measure: Reposition;Relaxation;Medicatio n No results found for: HBA1C PCP: Eric Lozano MD PAST MEDICAL HISTORY Diagnosis Date Esophageal reflux Mitral valve disorders(424.0) Other premature beats Rheumatoid arthritis(714.0) Current Outpatient Medications Medication Sig famotidine (PEPCID) 20 mg tablet potassium chloride in water 10 mEq/100 mL Inject 10 mEq intravenously one time only. pantoprazole sodium (PANTOPRAZOLE ORAL) Take by mouth. folic acid 1 mg tablet Take 1 mg by mouth two times a day. methotrexate, PF, 25 mg/mL soln Inject 1/2 milliliter(s) Subcutaneous once a week, single use vials, use and discard benzonatate (TESSALON PERLES) 100 mg capsule Take 1 capsule by mouth three times daily as needed for cough. sulfaSALAzine EC (AZULFIDINE EN) 500 mg EC tablet predniSONE (DELTASONE) 10 mg tablet 2.5 mg. albuterol HFA (PROVENTIL HFA, VENTOLIN HFA) 90 mcg/actuation inhaler Inhale 2 Puffs as instructed every 6 hours as needed for wheezing/shortness of breath. fexofenadine hcl(PILLO 180 MG TAB) Take one(1) tablet daily. BUDESONIDE 32 MCG/ACTUATION NASAL SPRAY once spray each nostril once daily prn LOPRESSOR 100 MG TAB Take one(1) tablet twice daily. PLAQUENIL 200 MG TAB Take one(1) tablet twice daily. No current facility-administered medications for this visit. ALLERGIES Allergen Reactions Amoxicillin-Pot Cla* GI Upset Doxycycline Unknown Makes her very ill when she takes it Environmental [Othe* perfumes, pollen, scent in detergent all cause rhinitis PAST SURGICAL HISTORY Procedure Laterality Date LIG/TRNSXJ FLP TUBE ABDL/VAG APPR UNI/BI 1976 Tubal ligation PAST SURGICAL HISTORY OF bilateral lumpectomies- benign PAST SURGICAL HISTORY OF 07/22/2007 Left plantar fascitomy and left 5th hammertoe correction FAMILY HISTORY Problem Relation Age of Onset Breast Cancer Mother None Father father unknown Social History Tobacco Use Smoking status: Former Packs/day: 1.00 Years: 30.00 Additional pack years: 0.00 Total pack years: 30.00 Types: Cigarettes Quit date: 2012 Years since quittin. Smokeless tobacco: Never Tobacco comments: d/c 2009 Substance Use Topics Alcohol use: No Drug use: No REVIEW OF SYSTEMS GENERAL: Negative for Malaise, significant weight loss, fever RESPIRATORY: Negative for cough, wheezing and shortness of breath CARDIOVASCULAR: Negative for chest pain, leg swelling and palpitations GI: Negative for abdominal discomfort, blood in stools or black stools and change in bowel habits : Negative for dysuria, frequency and incontinence MUSCULOSKELETAL: Negative for joint pain or swelling, back pain, and muscle pain. SKIN: Negative for lesions, rash, and itching. HEMATOLOGY/LYMPHOLOGY Negative for prolonged bleeding, bruising easily, and swollen nodes. ENDOCRINE: Negative for cold or heat intolerance, polyuria, polydipsia and goiter. NEURO: negative Physical Exam: Constitutional: Pt is a well developed 73 year old female who is alert, oriented and cooperative Eyes: Following during examination. No redness or drainage. Respiratory: RR normal and nonlabored. Even breathing. No evidence of distress or shortness of breath. Psychology: Patient is engaged during conversation. Normal affect and mood. Does not appear depressed or anxious during encounter. Vascular: Dorsalis pedis and posterior tibial pulses palpable as b/l Capillary Fill time < 5 seconds to digits 1-5 b/l Skin temperature warm to warm proximal to distal b/l Hair growth present to digits Neurological: intact light touch/epicritic sensation b/l intact protective sensation no significant neurological deficits Dermatological: Nails 1-5 b/l appear normal. Webspaces clean and dry 1-4 b/l. Skin appears well hydrated and supple. good color, texture, turgor. No open lesions present. No callosities present. Musculoskeletal/Orthopaedic: Patient has pain to palpation of right 2nd toe Foot type is neutral structurally Right 2nd toe is swollen Radiographs: 3 views right foot reviewed February 11, 2023: I have personally reviewed and interpreted these XR myself: nondisplaced fracture of right 2nd toe proximal phalanx and compression fracture of dipj ASSESSMENT: (S92.615A) Closed nondisplaced fracture of proximal phalanx of lesser toe of right foot, initial encounter PLAN: 1. History and physical examination performed. 2. XR reviewed with patient and interpreted today 3. Discussed fracture of right 2nd toe. Continue with post-op shoe or firm sole sneaker 4. Repeat xrays in 2 weeks Albert Hendricks DPM Podiatry [address] [facility] [address] Dept: [phone] Dept AMB ROOMING INTAKE FLOWSHEET DATA Pain Pain Level: 6 Pain Location: Toe Description: Burning Duration Amount of Time: 3 Duration Units: Weeks Frequency: Continuous Intervention/Comfort measure: Reposition, Relaxation, Medication Patient presents with: Right Foot - New, Pain, Fracture, Swelling Shanti Lozano LPN \ documented in this encounter [facility] 01-29-2023 Note HNO ID: [id number] Author: Mars Russo APRN.HYDROELECTRIC MACHINERY MECHANIC Service: ? Author Type: Nurse Practitioner Type: Progress Notes Filed: 01/29/2023 1:19 PM Note Text: Subjective HPI HPI Ariella Godfrey is a 73 year old female who presents today for CC of right second toe pain after kicking door 1 week ago. Has tried pepe taping toe. Symptoms are worsened by nothing. Denies diabetes. .Patient presents with: Toe Pain (Toe): Right toe pain x1 week PAST MEDICAL HISTORY Diagnosis Date Esophageal reflux Mitral valve disorders(424.0) Other premature beats Rheumatoid arthritis(714.0) PAST SURGICAL HISTORY Procedure Laterality Date LIG/TRNSXJ FLP TUBE ABDL/VAG APPR UNI/BI 1976 Tubal ligation PAST SURGICAL HISTORY OF bilateral lumpectomies- benign PAST SURGICAL HISTORY OF 07/22/2007 Left plantar fascitomy and left 5th hammertoe correction ALLERGIES Amoxicillin-Pot Clavulanate, Doxycycline, and Environmental [Other] MEDICATIONS methotrexate, PF, 25 mg/mL soln Inject 1/2 milliliter(s) Subcutaneous once a week, single use vials, use and discard benzonatate (TESSALON PERLES) 100 mg capsule Take 1 capsule by mouth three times daily as needed for cough. sulfaSALAzine EC (AZULFIDINE EN) 500 mg EC tablet predniSONE (DELTASONE) 10 mg tablet TAKE 1 TABLET BY MOUTH EVERY DAY NEEDED. Take for 3 - 5 days with a flare. albuterol HFA (PROVENTIL HFA, VENTOLIN HFA) 90 mcg/actuation inhaler Inhale 2 Puffs as instructed every 6 hours as needed for wheezing/shortness of breath. fexofenadine hcl(PILLO 180 MG TAB) Take one(1) tablet daily. BUDESONIDE 32 MCG/ACTUATION NASAL SPRAY once spray each nostril once daily prn PRILOSEC 20 MG CAP Take one(1) capsule twice daily. LOPRESSOR 100 MG TAB Take one(1) tablet twice daily. PLAQUENIL 200 MG TAB Take one(1) tablet twice daily. FAMILY HISTORY Problem Relation Age of Onset Breast Cancer Mother None Father father unknown Social History Tobacco Use Smoking status: Former Packs/day: 1.00 Years: 30.00 Additional pack years: 0.00 Total pack years: 30.00 Types: Cigarettes Smokeless tobacco: Never Tobacco comments: d/c 2009 Substance Use Topics Alcohol use: No Drug use: No ROS Objective Blood pressure 122/76, pulse 66, temperature 36.8 ?C (98.2 ?F), resp. rate 16, weight 103.1 kg (227 lb 6.4 oz), SpO2 96 %. Physical Exam Constitutional: General: She is not in acute distress. Appearance: She is not toxic-appearing or diaphoretic. HENT: Head: Normocephalic and atraumatic. Pulmonary: Effort: Pulmonary effort is normal. No accessory muscle usage or respiratory distress. Musculoskeletal: Feet: Neurological: Mental Status: She is alert and oriented to person, place, and time. ASSESSMENT/PLAN: 1. Closed nondisplaced fracture of proximal phalanx of lesser toe of right foot, initial encounter - ICD9: 826.0, ICD10: S92.514A (primary diagnosis) Post op shoe provided Pain relief/otc Will schedule follow up with podiatry Follow up for worsening symptoms. - CONSULT TO PODIATRY 2. Toe injury, right, initial encounter - ICD9: 959.7, ICD10: S99.921A - XR TOE AP/LAT/OBL RIGHT IMPRESSION: Proximal and distal phalanx fractures in the second digit. Dictated by : MD Mars MUSTAFA APRN.HYDROELECTRIC MACHINERY MECHANIC [facility] 01-29-2023 Note HNO ID: [id number] Author: Sherice Ramos RT(R) Service: Radiology Author Type: Technologist Type: Progress Notes Filed: 01/29/2023 12:48 PM Note Text: Radiology Service Progress Note PATIENT NAME: Ariella Godfrey DATE OF SERVICE: January 29, 2023 TIME: 12:34 PM PATIENT IDENTITY VERIFICATION COMPLETED USING TWO (2) IDENTIFIERS: Name and Date of confirmed by patient verbally. FALL SCREENING: Has the patient had 2 falls in the last year or 1 fall with injury or currently using an Ambulatory Assistive Device (Walker, Cane, Wheelchair, Crutches, etc.)? No PATIENT GENDER DATA: Female. status: : No status: NO. PATIENT RELEVANT IMPLANT DATA REVIEWED: Not Applicable RADIOLOGY DEPARTMENT: General X-ray: Exam(s) Completed: Lower Extremity X-Ray(s): Toes, Right PERIPHERAL IV DATA: Not applicable SIGNED BY: RT Jesus(R) January 29, 2023 12:34 PM [facility] 01-29-2023 Instructions Mars Russo APRN.HYDROELECTRIC MACHINERY MECHANIC - 01/29/2023 1:12 PM EDT ASSESSMENT/PLAN: 1. Closed nondisplaced fracture of proximal phalanx of lesser toe of right foot, initial encounter - ICD9: 826.0, ICD10: S92.514A (primary diagnosis) Post op shoe provided Pain relief/otc Will schedule follow up with podiatry Follow up for worsening symptoms. - CONSULT TO PODIATRY documented in this encounter [facility] 01-29-2023 History of Presen t illness Narrative Images from the original note were not included. Subjective HPI HPI Ariella Godfrey is a 73 year old female who presents today for CC of right second toe pain after kicking door 1 week ago. Has tried pepe taping toe. Symptoms are worsened by nothing. Denies diabetes. .Patient presents with: Toe Pain (Toe): Right toe pain x1 week PAST MEDICAL HISTORY Diagnosis Date Esophageal reflux Mitral valve disorders(424.0) Other premature beats Rheumatoid arthritis(714.0) PAST SURGICAL HISTORY Procedure Laterality Date LIG/TRNSXJ FLP TUBE ABDL/VAG APPR UNI/BI 1976 Tubal ligation PAST SURGICAL HISTORY OF bilateral lumpectomies- benign PAST SURGICAL HISTORY OF 07/22/2007 Left plantar fascitomy and left 5th hammertoe correction ALLERGIES Amoxicillin-Pot Clavulanate, Doxycycline, and Environmental [Other] MEDICATIONS methotrexate, PF, 25 mg/mL soln Inject 1/2 milliliter(s) Subcutaneous once a week, single use vials, use and discard benzonatate (TESSALON PERLES) 100 mg capsule Take 1 capsule by mouth three times daily as needed for cough. sulfaSALAzine EC (AZULFIDINE EN) 500 mg EC tablet predniSONE (DELTASONE) 10 mg tablet TAKE 1 TABLET BY MOUTH EVERY DAY NEEDED. Take for 3 - 5 days with a flare. albuterol HFA (PROVENTIL HFA, VENTOLIN HFA) 90 mcg/actuation inhaler Inhale 2 Puffs as instructed every 6 hours as needed for wheezing/shortness of breath. fexofenadine hcl(PILLO 180 MG TAB) Take one(1) tablet daily. BUDESONIDE 32 MCG/ACTUATION NASAL SPRAY once spray each nostril once daily prn PRILOSEC 20 MG CAP Take one(1) capsule twice daily. LOPRESSOR 100 MG TAB Take one(1) tablet twice daily. PLAQUENIL 200 MG TAB Take one(1) tablet twice daily. FAMILY HISTORY Problem Relation Age of Onset Breast Cancer Mother None Father father unknown Social History Tobacco Use Smoking status: Former Packs/day: 1.00 Years: 30.00 Additional pack years: 0.00 Total pack years: 30.00 Types: Cigarettes Smokeless tobacco: Never Tobacco comments: d/c 2009 Substance Use Topics Alcohol use: No Drug use: No ROS Objective Blood pressure 122/76, pulse 66, temperature 36.8 C (98.2 F), resp. rate 16, weight 103.1 kg (227 lb 6.4 oz), SpO2 96 %. Physical Exam Constitutional: General: She is not in acute distress. Appearance: She is not toxic-appearing or diaphoretic. HENT: Head: Normocephalic and atraumatic. Pulmonary: Effort: Pulmonary effort is normal. No accessory muscle usage or respiratory distress. Musculoskeletal: Feet: Neurological: Mental Status: She is alert and oriented to person, place, and time. ASSESSMENT/PLAN: 1. Closed nondisplaced fracture of proximal phalanx of lesser toe of right foot, initial encounter - ICD9: 826.0, ICD10: S92.514A (primary diagnosis) Post op shoe provided Pain relief/otc Will schedule follow up with podiatry Follow up for worsening symptoms. - CONSULT TO PODIATRY 2. Toe injury, right, initial encounter - ICD9: 959.7, ICD10: S99.921A - XR TOE AP/LAT/OBL RIGHT IMPRESSION: Proximal and distal phalanx fractures in the second digit. Dictated by : MD Mars MUSTAFA APRN.HYDROELECTRIC MACHINERY MECHANIC documented in this encounter [facility] 12-23-2022 Note HNO ID: [id number] Author: Mars Russo APRN.JARED Service: ? Author Type: Nurse Practitioner Type: Progress Notes Filed: 12/23/2022 11:06 AM Note Text: Subjective HPI HPI Ariella Godfrey is a 72 year old female who presents today for CC of productive cough, congestion. This started 1 week ago. Has tried otc medication and inhalers for relief. Symptoms are worsened by nothing. Risk factors smoked for many years, reports hx of copd. .Patient presents with: Cough: X 1 week PAST MEDICAL HISTORY Diagnosis Date Esophageal reflux Mitral valve disorders(424.0) Other premature beats Rheumatoid arthritis(714.0) PAST SURGICAL HISTORY Procedure Laterality Date LIG/TRNSXJ FLP TUBE ABDL/VAG APPR UNI/BI 1976 Tubal ligation PAST SURGICAL HISTORY OF bilateral lumpectomies- benign PAST SURGICAL HISTORY OF 07/22/2007 Left plantar fascitomy and left 5th hammertoe correction ALLERGIES Amoxicillin-Pot Clavulanate, Doxycycline, and Environmental [Other] MEDICATIONS methotrexate, PF, 25 mg/mL soln Inject 1/2 milliliter(s) Subcutaneous once a week, single use vials, use and discard sulfaSALAzine EC (AZULFIDINE EN) 500 mg EC tablet predniSONE (DELTASONE) 10 mg tablet TAKE 1 TABLET BY MOUTH EVERY DAY NEEDED. Take for 3 - 5 days with a flare. albuterol HFA (PROVENTIL HFA, VENTOLIN HFA) 90 mcg/actuation inhaler Inhale 2 Puffs as instructed every 6 hours as needed for wheezing/shortness of breath. fexofenadine hcl(PILLO 180 MG TAB) Take one(1) tablet daily. BUDESONIDE 32 MCG/ACTUATION NASAL SPRAY once spray each nostril once daily prn PRILOSEC 20 MG CAP Take one(1) capsule twice daily. LOPRESSOR 100 MG TAB Take one(1) tablet twice daily. PLAQUENIL 200 MG TAB Take one(1) tablet twice daily. predniSONE (DELTASONE) 20 mg tablet Take 2 tablets by mouth once daily for 5 days. azithromycin (ZITHROMAX Z-FERDINAND) 250 mg tablet Take 2 tablets day one, then, 1 tablet daily until gone. benzonatate (TESSALON PERLES) 100 mg capsule Take 1 capsule by mouth three times daily as needed for cough. (Patient not taking: Reported on 12/23/2022) FAMILY HISTORY Problem Relation Age of Onset Breast Cancer Mother None Father father unknown Social History Tobacco Use Smoking status: Former Packs/day: 1.00 Years: 30.00 Additional pack years: 0.00 Total pack years: 30.00 Types: Cigarettes Smokeless tobacco: Never Tobacco comments: d/c 2009 Substance Use Topics Alcohol use: No Drug use: No Review of Systems Constitutional: Negative for fever. HENT: Positive for congestion. Negative for ear pain, nosebleeds and sore throat. Respiratory: Positive for cough and sputum production. Negative for shortness of breath and wheezing. Cardiovascular: Negative for chest pain. Musculoskeletal: Negative for neck pain. Skin: Negative for itching and rash. Objective Blood pressure 150/68, pulse 85, temperature 36.2 ?C (97.2 ?F), resp. rate 21, weight 102.6 kg (226 lb 3.2 oz), SpO2 97 %. Bp rechecked manual by provider 130/80. Physical Exam Constitutional: General: She is not in acute distress. Appearance: She is not toxic-appearing or diaphoretic. HENT: Head: Normocephalic and atraumatic. Cardiovascular: Rate and Rhythm: Normal rate and regular rhythm. Heart sounds: Normal heart sounds, S1 normal and S2 normal. Pulmonary: Effort: Pulmonary effort is normal. Breath sounds: Wheezing (scattered bilat) and rhonchi (scattered bilat) present. No decreased breath sounds or rales. Lymphadenopathy: Cervical: No cervical adenopathy. Right cervical: No superficial cervical adenopathy. Left cervical: No superficial cervical adenopathy. Neurological: Mental Status: She is alert and oriented to person, place, and time. Gait: Gait is intact. ASSESSMENT/PLAN: 1. Lower resp. tract infection - ICD9: 519.8, ICD10: J22 - Discussed supportive care, - Limit exposure to smoke and other inhaled irritants - Discussed possible red flags and when to seek medical attention - Follow up in 3-5 days or sooner if no better or worse -If you experience chest pain/shortness of breath go to ER Agrees to plan Declines avs - PREDNISONE 20 MG TABLET - AZITHROMYCIN 250 MG TABLET Mars Russo APRN.JARED [facility] 12-23-2022 History of Presen t illness Narrative Subjective HPI HPI Ariella Godfrey is a 72 year old female who presents today for CC of productive cough, congestion. This started 1 week ago. Has tried otc medication and inhalers for relief. Symptoms are worsened by nothing. Risk factors smoked for many years, reports hx of copd. .Patient presents with: Cough: X 1 week PAST MEDICAL HISTORY Diagnosis Date Esophageal reflux Mitral valve disorders(424.0) Other premature beats Rheumatoid arthritis(714.0) PAST SURGICAL HISTORY Procedure Laterality Date LIG/TRNSXJ FLP TUBE ABDL/VAG APPR UNI/BI 1976 Tubal ligation PAST SURGICAL HISTORY OF bilateral lumpectomies- benign PAST SURGICAL HISTORY OF 07/22/2007 Left plantar fascitomy and left 5th hammertoe correction ALLERGIES Amoxicillin-Pot Clavulanate, Doxycycline, and Environmental [Other] MEDICATIONS methotrexate, PF, 25 mg/mL soln Inject 1/2 milliliter(s) Subcutaneous once a week, single use vials, use and discard sulfaSALAzine EC (AZULFIDINE EN) 500 mg EC tablet predniSONE (DELTASONE) 10 mg tablet TAKE 1 TABLET BY MOUTH EVERY DAY NEEDED. Take for 3 - 5 days with a flare. albuterol HFA (PROVENTIL HFA, VENTOLIN HFA) 90 mcg/actuation inhaler Inhale 2 Puffs as instructed every 6 hours as needed for wheezing/shortness of breath. fexofenadine hcl(PILLO 180 MG TAB) Take one(1) tablet daily. BUDESONIDE 32 MCG/ACTUATION NASAL SPRAY once spray each nostril once daily prn PRILOSEC 20 MG CAP Take one(1) capsule twice daily. LOPRESSOR 100 MG TAB Take one(1) tablet twice daily. PLAQUENIL 200 MG TAB Take one(1) tablet twice daily. predniSONE (DELTASONE) 20 mg tablet Take 2 tablets by mouth once daily for 5 days. azithromycin (ZITHROMAX Z-FERDINAND) 250 mg tablet Take 2 tablets day one, then, 1 tablet daily until gone. benzonatate (TESSALON PERLES) 100 mg capsule Take 1 capsule by mouth three times daily as needed for cough. (Patient not taking: Reported on 12/23/2022) FAMILY HISTORY Problem Relation Age of Onset Breast Cancer Mother None Father father unknown Social History Tobacco Use Smoking status: Former Packs/day: 1.00 Years: 30.00 Additional pack years: 0.00 Total pack years: 30.00 Types: Cigarettes Smokeless tobacco: Never Tobacco comments: d/c 2009 Substance Use Topics Alcohol use: No Drug use: No Review of Systems Constitutional: Negative for fever. HENT: Positive for congestion. Negative for ear pain, nosebleeds and sore throat. Respiratory: Positive for cough and sputum production. Negative for shortness of breath and wheezing. Cardiovascular: Negative for chest pain. Musculoskeletal: Negative for neck pain. Skin: Negative for itching and rash. Objective Blood pressure 150/68, pulse 85, temperature 36.2 C (97.2 F), resp. rate 21, weight 102.6 kg (226 lb 3.2 oz), SpO2 97 %. Bp rechecked manual by provider 130/80. Physical Exam Constitutional: General: She is not in acute distress. Appearance: She is not toxic-appearing or diaphoretic. HENT: Head: Normocephalic and atraumatic. Cardiovascular: Rate and Rhythm: Normal rate and regular rhythm. Heart sounds: Normal heart sounds, S1 normal and S2 normal. Pulmonary: Effort: Pulmonary effort is normal. Breath sounds: Wheezing (scattered bilat) and rhonchi (scattered bilat) present. No decreased breath sounds or rales. Lymphadenopathy: Cervical: No cervical adenopathy. Right cervical: No superficial cervical adenopathy. Left cervical: No superficial cervical adenopathy. Neurological: Mental Status: She is alert and oriented to person, place, and time. Gait: Gait is intact. ASSESSMENT/PLAN: 1. Lower resp. tract infection - ICD9: 519.8, ICD10: J22 - Discussed supportive care, - Limit exposure to smoke and other inhaled irritants - Discussed possible red flags and when to seek medical attention - Follow up in 3-5 days or sooner if no better or worse -If you experience chest pain/shortness of breath go to ER Agrees to plan Declines avs - PREDNISONE 20 MG TABLET - AZITHROMYCIN 250 MG TABLET Mars Russo APRN.JARED documented in this encounter [facility] 09-26-2022 Miscellaneous Notes Pt was notified of the results. Pt verbalized understanding. Homa Bhat MA Negative for COVID and flu please notify thank you documented in this encounter [facility] 09-26-2022 Note HNO ID: [id number] Author: RT Ange(R) Service: ? Author Type: Technologist Type: Progress Notes Filed: 09/26/2022 9:25 AM Note Text: Radiology Service Progress Note PATIENT NAME: Ariella Godfrey DATE OF SERVICE: September 26, 2022 TIME: 9:25 AM PATIENT IDENTITY VERIFICATION COMPLETED USING TWO (2) IDENTIFIERS: Name and Date of confirmed by patient verbally. FALL SCREENING: Has the patient had 2 falls in the last year or 1 fall with injury or currently using an Ambulatory Assistive Device (Walker, Cane, Wheelchair, Crutches, etc.)? No PATIENT GENDER DATA: Female. status: : No status: NO. PATIENT RELEVANT IMPLANT DATA REVIEWED: Not Applicable RADIOLOGY DEPARTMENT: General X-ray: Exam(s) Completed: Chest X-Ray PERIPHERAL IV DATA: Not applicable SIGNED BY: RT Ange(R) September 26, 2022 9:25 AM [facility] 09-26-2022 Note HNO ID: [id number] Author: Everton Mancini APRN.JARED Service: ? Author Type: Nurse Practitioner Type: Progress Notes Filed: 09/26/2022 9:43 AM Note Text: Subjective HPI Nontoxic-appearing female presents urgent care chief complaint chest congestion cough headache nasal congestion fatigue low-grade temperature. Duration of symptoms 2 days. Associated symptoms listed above. No OTC medication use today. 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 Most bothersome symptom today is cough fatigue. Denies any high fever productive cough chest pain shortness of breath pleuritic pain hemoptysis nausea vomiting abdominal pain change in bowel or bladder habits. Past medical history prescription medication use and allergies reviewed. .Patient presents with: Cough: Pt reported chest congestion, fever, x2 days. PAST MEDICAL HISTORY Diagnosis Date Esophageal reflux Mitral valve disorders(424.0) Other premature beats Rheumatoid arthritis(714.0) PAST SURGICAL HISTORY Procedure Laterality Date LIG/TRNSXJ FLP TUBE ABDL/VAG APPR UNI/BI 1976 Tubal ligation PAST SURGICAL HISTORY OF bilateral lumpectomies- benign PAST SURGICAL HISTORY OF 07/22/2007 Left plantar fascitomy and left 5th hammertoe correction ALLERGIES Amoxicillin-Pot Clavulanate, Doxycycline, and Environmental [Other] MEDICATIONS methotrexate, PF, 25 mg/mL soln Inject 1/2 milliliter(s) Subcutaneous once a week, single use vials, use and discard sulfaSALAzine EC (AZULFIDINE EN) 500 mg EC tablet predniSONE (DELTASONE) 10 mg tablet TAKE 1 TABLET BY MOUTH EVERY DAY NEEDED. Take for 3 - 5 days with a flare. albuterol HFA (PROVENTIL HFA, VENTOLIN HFA) 90 mcg/actuation inhaler Inhale 2 Puffs as instructed every 6 hours as needed for wheezing/shortness of breath. fexofenadine hcl(PILLO 180 MG TAB) Take one(1) tablet daily. BUDESONIDE 32 MCG/ACTUATION NASAL SPRAY once spray each nostril once daily prn PRILOSEC 20 MG CAP Take one(1) capsule twice daily. LOPRESSOR 100 MG TAB Take one(1) tablet twice daily. PLAQUENIL 200 MG TAB Take one(1) tablet twice daily. benzonatate (TESSALON PERLES) 100 mg capsule Take 2 capsules by mouth three times daily as needed for cough. (Patient not taking: Reported on 09/26/2022) FAMILY HISTORY Problem Relation Age of Onset Breast Cancer Mother None Father father unknown Social History Tobacco Use Smoking status: Former Packs/day: 1.00 Years: 30.00 Pack years: 30.00 Types: Cigarettes Smokeless tobacco: Never Tobacco comments: d/c 2009 Substance Use Topics Alcohol use: No Drug use: No BP 134/88 Pulse 76 Temp 37.4 ?C (99.4 ?F) (Tympanic) Resp 18 Wt 103 kg (227 lb) SpO2 96% Review of Systems Constitutional: Positive for chills, fever and malaise/fatigue. HENT: Positive for congestion and sore throat. Negative for ear discharge, ear pain and sinus pain. Eyes: Negative for blurred vision, pain, discharge and redness. Respiratory: Positive for cough. Negative for hemoptysis, sputum production, shortness of breath, wheezing and stridor. Cardiovascular: Negative for chest pain. Gastrointestinal: Negative for abdominal pain, diarrhea, nausea and vomiting. Musculoskeletal: Positive for myalgias. Skin: Negative for itching and rash. Neurological: Positive for headaches. Negative for dizziness. Objective Physical Exam Constitutional: General: She is not in acute distress. Appearance: She is not diaphoretic. HENT: Head: Normocephalic. Nose: Congestion present. Mouth/Throat: Mouth: Mucous membranes are moist. Pharynx: Oropharynx is clear. No oropharyngeal exudate or posterior oropharyngeal erythema. Eyes: Conjunctiva/sclera: Conjunctivae normal. Pupils: Pupils are equal, round, and reactive to light. Cardiovascular: Rate and Rhythm: Normal rate and regular rhythm. Heart sounds: Normal heart sounds. Pulmonary: Effort: Pulmonary effort is normal. No tachypnea, accessory muscle usage or respiratory distress. Breath sounds: No stridor. Wheezing present. No rhonchi or rales. Abdominal: Palpations: Abdomen is soft. Tenderness: There is no abdominal tenderness. There is no guarding or rebound. Musculoskeletal: Cervical back: Normal range of motion and neck supple. No rigidity or tenderness. Lymphadenopathy: Cervical: No cervical adenopathy. Skin: General: Skin is warm and dry. Neurological: Mental Status: She is alert and oriented to person, place, and time. ASSESSMENT/PLAN: 1. Acute cough - ICD9: 786.2, ICD10: R05.1 (primary diagnosis) - XR CHEST 2V FRONTAL/LAT - COVID WITH FLUA+B, ROUTINE 2. Viral illness - ICD9: 079.99, ICD10: B34.9 - COVID WITH FLUA+B, ROUTINE 3. Suspected COVID-19 virus infection - ICD9: V01.79, ICD10: Z20.822 - COVID WITH FLUA+B, ROUTINE IMPRESSION: No acute radiographic abnormality. No evidence of pneumonia noted on x-rays (more content not included)... [facility] 09-26-2022 Instructions Everton Mancini APRN.[facility] - 09/26/2022 9:04 AM EDT How to Manage Common Symptoms Associated with COVID for Adults Fever- Fever is a temperature over 100.4 F and can occur when the body is fighting an infection. To help treat a fever: Drink plenty of fluids and stay well hydrated. Eat small amounts of easy to digest food. Rest. Your body needs rest to recover, but getting up and moving around the house frequently is a good idea. You should try to continue doing your normal daily activities (bathing, toileting, grooming, cooking), though you will probably feel tired, and need to rest often. Avoid any heavy activity or exercise, as this will increase your body temperature. Dress in light clothing and stay covered in a light sheet. Keep the room temperature cool. Take a slightly warm (not cold or cool) bath, or apply damp washcloths to the forehead and wrists. Cough- Cough is a common symptom associated with COVID and can be bothersome. To help treat a cough: Stay well hydrated. Try warm water or tea with lemon and/or honey to help soothe the cough. Use a humidifier to add moisture to the air. Try a product with menthol, like a cough drop or a rub for your chest such as Vicks, which can help reduce cough. Try cough drops. Avoid smoking and other strong odors or perfumes. Try breathing exercises to keep your lungs open and clear. Take a big deep breath through your nose and hold for 5 seconds before slowly releasing. Repeat frequently, while you are awake. Congestion- Runny nose or nasal congestion can occur with COVID. Treatment can help relieve symptoms: Try OTC nasal saline spray, or nasal saline rinse to relieve mucus congestion. Nasal strips can help keep nasal passages open, to increase airflow. Elevating your head with an extra pillow in bed can help reduce congestion. Using a humidifier can increase moisture in the air, and make breathing easier. Sore Throat- Another common symptom with COVID, can be managed at home by: Stay well hydrated. Gargle with salt water - mix teaspoon salt with 1 cup of warm water and gargle. This helps to loosen mucus in the back of the throat and may reduce discomfort. Try ice chips, popsicles or lozenges to soothe the throat. Nausea/Vomiting/Diarrhea- These are common symptoms, and staying hydrated is most important. If you are nauseous or vomiting, start with small sips of water every 10-15 minutes and increase as tolerated. You can try sucking an ice cube too. If tolerating, you can try pedialyte or Gatorade, or flat sprite or raciel-linda. Start slowly and increase as you are able to. Instead of meals, try smaller, more frequent snacks. Try eating bland foods like crackers, toast, rice, and applesauce. Avoid spicy, greasy or fried foods and dairy containing foods. Even if you aren't feeling hungry due to lack of smell or taste, it is important to try to take in some food when you are able. After drinking and eating, rest in an upright position for up to two hours as needed to help decrease nauseous feelings. Try closing your eyes, avoid moving and watching TV. Avoid strong odors that can make you feel more nauseated. When to seek emergency medical attention Look for emergency warning signs for COVID-19. If having any of these symptoms, seek emergency medical care immediately: Trouble breathing Persistent pain or pressure in the chest New confusion Inability to wake or stay awake Bluish lips or face *This list is not all possible symptoms. Please call your medical provider for any other symptoms that are severe or concerning to you. documented in this encounter [facility] 09-26-2022 History of Presen t illness Narrative Subjective HPI Nontoxic-appearing female presents urgent care chief complaint chest congestion cough headache nasal congestion fatigue low-grade temperature. Duration of symptoms 2 days. Associated symptoms listed above. No OTC medication use today. 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 Most bothersome symptom today is cough fatigue. Denies any high fever productive cough chest pain shortness of breath pleuritic pain hemoptysis nausea vomiting abdominal pain change in bowel or bladder habits. Past medical history prescription medication use and allergies reviewed. .Patient presents with: Cough: Pt reported chest congestion, fever, x2 days. PAST MEDICAL HISTORY Diagnosis Date Esophageal reflux Mitral valve disorders(424.0) Other premature beats Rheumatoid arthritis(714.0) PAST SURGICAL HISTORY Procedure Laterality Date LIG/TRNSXJ FLP TUBE ABDL/VAG APPR UNI/BI 1976 Tubal ligation PAST SURGICAL HISTORY OF bilateral lumpectomies- benign PAST SURGICAL HISTORY OF 07/22/2007 Left plantar fascitomy and left 5th hammertoe correction ALLERGIES Amoxicillin-Pot Clavulanate, Doxycycline, and Environmental [Other] MEDICATIONS methotrexate, PF, 25 mg/mL soln Inject 1/2 milliliter(s) Subcutaneous once a week, single use vials, use and discard sulfaSALAzine EC (AZULFIDINE EN) 500 mg EC tablet predniSONE (DELTASONE) 10 mg tablet TAKE 1 TABLET BY MOUTH EVERY DAY NEEDED. Take for 3 - 5 days with a flare. albuterol HFA (PROVENTIL HFA, VENTOLIN HFA) 90 mcg/actuation inhaler Inhale 2 Puffs as instructed every 6 hours as needed for wheezing/shortness of breath. fexofenadine hcl(PILLO 180 MG TAB) Take one(1) tablet daily. BUDESONIDE 32 MCG/ACTUATION NASAL SPRAY once spray each nostril once daily prn PRILOSEC 20 MG CAP Take one(1) capsule twice daily. LOPRESSOR 100 MG TAB Take one(1) tablet twice daily. PLAQUENIL 200 MG TAB Take one(1) tablet twice daily. benzonatate (TESSALON PERLES) 100 mg capsule Take 2 capsules by mouth three times daily as needed for cough. (Patient not taking: Reported on 09/26/2022) FAMILY HISTORY Problem Relation Age of Onset Breast Cancer Mother None Father father unknown Social History Tobacco Use Smoking status: Former Packs/day: 1.00 Years: 30.00 Pack years: 30.00 Types: Cigarettes Smokeless tobacco: Never Tobacco comments: d/c 2009 Substance Use Topics Alcohol use: No Drug use: No BP 134/88 Pulse 76 Temp 37.4 C (99.4 F) (Tympanic) Resp 18 Wt 103 kg (227 lb) SpO2 96% Review of Systems Constitutional: Positive for chills, fever and malaise/fatigue. HENT: Positive for congestion and sore throat. Negative for ear discharge, ear pain and sinus pain. Eyes: Negative for blurred vision, pain, discharge and redness. Respiratory: Positive for cough. Negative for hemoptysis, sputum production, shortness of breath, wheezing and stridor. Cardiovascular: Negative for chest pain. Gastrointestinal: Negative for abdominal pain, diarrhea, nausea and vomiting. Musculoskeletal: Positive for myalgias. Skin: Negative for itching and rash. Neurological: Positive for headaches. Negative for dizziness. Objective Physical Exam Constitutional: General: She is not in acute distress. Appearance: She is not diaphoretic. HENT: Head: Normocephalic. Nose: Congestion present. Mouth/Throat: Mouth: Mucous membranes are moist. Pharynx: Oropharynx is clear. No oropharyngeal exudate or posterior oropharyngeal erythema. Eyes: Conjunctiva/sclera: Conjunctivae normal. Pupils: Pupils are equal, round, and reactive to light. Cardiovascular: Rate and Rhythm: Normal rate and regular rhythm. Heart sounds: Normal heart sounds. Pulmonary: Effort: Pulmonary effort is normal. No tachypnea, accessory muscle usage or respiratory distress. Breath sounds: No stridor. Wheezing present. No rhonchi or rales. Abdominal: Palpations: Abdomen is soft. Tenderness: There is no abdominal tenderness. There is no guarding or rebound. Musculoskeletal: Cervical back: Normal range of motion and neck supple. No rigidity or tenderness. Lymphadenopathy: Cervical: No cervical adenopathy. Skin: General: Skin is warm and dry. Neurological: Mental Status: She is alert and oriented to person, place, and time. ASSESSMENT/PLAN: 1. Acute cough - ICD9: 786.2, ICD10: R05.1 (primary diagnosis) - XR CHEST 2V FRONTAL/LAT - COVID WITH FLUA+B, ROUTINE 2. Viral illness - ICD9: 079.99, ICD10: B34.9 - COVID WITH FLUA+B, ROUTINE 3. Suspected COVID-19 virus infection - ICD9: V01.79, ICD10: Z20.822 - COVID WITH FLUA+B, ROUTINE IMPRESSION: No acute radiographic abnormality. No evidence of pneumonia noted on x-rays. Treat as viral bronchitis. Prednisone burst provided. Patient will contact rheumatology to inform them of prednisone burst and if she needs to hold methotrexate during this illness. We will test for COVID-19 and influenza at today's visit. We discussed antiviral medications. Patient would like to discuss medications if positive. Red flags prompt reevaluation discussed. Follow-up with PCP 2 to 3 days reevaluation. Patient was educated on supportive therapies. Patient was instructed to immediately proceed to emergency room for any new, worsening, or symptoms lasting longer than anticipated. The patient's clinical presentation is otherwise unremarkable at this time. Based on exam and clinical finding, the patient is stable for discharge. Plan of care was discussed with patient. Patient verbalizes understanding and agrees to plan of care. This note was generated using [employer] software. It may contain errors in wording, punctuation, or spelling. Everton Mancini APRN.JARED documented in this encounter [facility] 08-15-2022 Note HNO ID: [id number] Author: Mars Russo APRN.JARED Service: ? Author Type: Nurse Practitioner Type: Progress Notes Filed: 08/15/2022 7:17 PM Note Text: Subjective HPI HPI Ariella Godfrey is a 72 year old female who presents today for CC of right jaw pain/swelling. This started 1 day ago. Has tried otc medication for relief. Symptoms are worsened by opening/closing jaw. Denies gum pain, wears dentures. Denies st, fever, ear pain. .Patient presents with: Pain: Pt reported (RT) jaw swelling, ear pain, x1 day. PAST MEDICAL HISTORY Diagnosis Date Esophageal reflux Mitral valve disorders(424.0) Other premature beats Rheumatoid arthritis(714.0) PAST SURGICAL HISTORY Procedure Laterality Date LIG/TRNSXJ FLP TUBE ABDL/VAG APPR UNI/BI 1976 Tubal ligation PAST SURGICAL HISTORY OF bilateral lumpectomies- benign PAST SURGICAL HISTORY OF 07/22/2007 Left plantar fascitomy and left 5th hammertoe correction ALLERGIES Amoxicillin-Pot Clavulanate, Doxycycline, and Environmental [Other] MEDICATIONS sulfaSALAzine EC (AZULFIDINE EN) 500 mg EC tablet predniSONE (DELTASONE) 10 mg tablet TAKE 1 TABLET BY MOUTH EVERY DAY NEEDED. Take for 3 - 5 days with a flare. albuterol HFA (PROVENTIL HFA, VENTOLIN HFA) 90 mcg/actuation inhaler Inhale 2 Puffs as instructed every 6 hours as needed for wheezing/shortness of breath. benzonatate (TESSALON PERLES) 100 mg capsule Take 2 capsules by mouth three times daily as needed for cough. fexofenadine hcl(PILLO 180 MG TAB) Take one(1) tablet daily. BUDESONIDE 32 MCG/ACTUATION NASAL SPRAY once spray each nostril once daily prn PRILOSEC 20 MG CAP Take one(1) capsule twice daily. LOPRESSOR 100 MG TAB Take one(1) tablet twice daily. PLAQUENIL 200 MG TAB Take one(1) tablet twice daily. cephALEXin (KEFLEX) 500 mg capsule Take 1 capsule by mouth three times daily for 7 days. predniSONE (DELTASONE) 20 mg tablet Take 2 tablets by mouth once daily for 5 days. FAMILY HISTORY Problem Relation Age of Onset Breast Cancer Mother None Father father unknown Social History Tobacco Use Smoking status: Former Packs/day: 1.00 Years: 30.00 Pack years: 30.00 Types: Cigarettes Smokeless tobacco: Never Tobacco comments: d/c 2009 Substance Use Topics Alcohol use: No Drug use: No ROS Objective Blood pressure 130/74, pulse 63, temperature 36.7 ?C (98.1 ?F), temperature source Tympanic, resp. rate 16, weight 108.1 kg (238 lb 6.4 oz), SpO2 97 %. Physical Exam Constitutional: General: She is not in acute distress. Appearance: She is not toxic-appearing or diaphoretic. HENT: Head: Normocephalic and atraumatic. Right Ear: Hearing, tympanic membrane, ear canal and external ear normal. Left Ear: Hearing, tympanic membrane, ear canal and external ear normal. Nose: Nose normal. Mouth/Throat: Pharynx: Uvula midline. No pharyngeal swelling, oropharyngeal exudate, posterior oropharyngeal erythema or uvula swelling. Eyes: General: Lids are normal. No scleral icterus. Right eye: No discharge. Left eye: No discharge. Conjunctiva/sclera: Conjunctivae normal. Pupils: Pupils are equal, round, and reactive to light. Neck: Trachea: Trachea normal. Cardiovascular: Rate and Rhythm: Normal rate and regular rhythm. Heart sounds: Normal heart sounds. Pulmonary: Effort: Pulmonary effort is normal. Breath sounds: Normal breath sounds. Musculoskeletal: Cervical back: Normal range of motion and neck supple. Lymphadenopathy: Cervical: No cervical adenopathy. Right cervical: No superficial cervical adenopathy. Left cervical: No superficial cervical adenopathy. Skin: Findings: No rash. Neurological: Mental Status: She is alert and oriented to person, place, and time. ASSESSMENT/PLAN: 1. 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 Subjective HPI HPI Ariella Godfrey is a 72 year old female who presents today for CC of right jaw pain/swelling. This started 1 day ago. Has tried otc medication for relief. Symptoms are worsened by opening/closing jaw. Denies gum pain, wears dentures. Denies st, fever, ear pain. .Patient presents with: Pain: Pt reported (RT) jaw swelling, ear pain, x1 day. PAST MEDICAL HISTORY Diagnosis Date Esophageal reflux Mitral valve disorders(424.0) Other premature beats Rheumatoid arthritis(714.0) PAST SURGICAL HISTORY Procedure Laterality Date LIG/TRNSXJ FLP TUBE ABDL/VAG APPR UNI/BI 1976 Tubal ligation PAST SURGICAL HISTORY OF bilateral lumpectomies- benign PAST SURGICAL HISTORY OF 07/22/2007 Left plantar fascitomy and left 5th hammertoe correction ALLERGIES Amoxicillin-Pot Clavulanate, Doxycycline, and Environmental [Other] MEDICATIONS sulfaSALAzine EC (AZULFIDINE EN) 500 mg EC tablet predniSONE (DELTASONE) 10 mg tablet TAKE 1 TABLET BY MOUTH EVERY DAY NEEDED. Take for 3 - 5 days with a flare. albuterol HFA (PROVENTIL HFA, VENTOLIN HFA) 90 mcg/actuation inhaler Inhale 2 Puffs as instructed every 6 hours as needed for wheezing/shortness of breath. benzonatate (TESSALON PERLES) 100 mg capsule Take 2 capsules by mouth three times daily as needed for cough. fexofenadine hcl(PILLO 180 MG TAB) Take one(1) tablet daily. BUDESONIDE 32 MCG/ACTUATION NASAL SPRAY once spray each nostril once daily prn PRILOSEC 20 MG CAP Take one(1) capsule twice daily. LOPRESSOR 100 MG TAB Take one(1) tablet twice daily. PLAQUENIL 200 MG TAB Take one(1) tablet twice daily. cephALEXin (KEFLEX) 500 mg capsule Take 1 capsule by mouth three times daily for 7 days. predniSONE (DELTASONE) 20 mg tablet Take 2 tablets by mouth once daily for 5 days. FAMILY HISTORY Problem Relation Age of Onset Breast Cancer Mother None Father father unknown Social History Tobacco Use Smoking status: Former Packs/day: 1.00 Years: 30.00 Pack years: 30.00 Types: Cigarettes Smokeless tobacco: Never Tobacco comments: d/c 2009 Substance Use Topics Alcohol use: No Drug use: No ROS Objective Blood pressure 130/74, pulse 63, temperature 36.7 C (98.1 F), temperature source Tympanic, resp. rate 16, weight 108.1 kg (238 lb 6.4 oz), SpO2 97 %. Physical Exam Constitutional: General: She is not in acute distress. Appearance: She is not toxic-appearing or diaphoretic. HENT: Head: Normocephalic and atraumatic. Right Ear: Hearing, tympanic membrane, ear canal and external ear normal. Left Ear: Hearing, tympanic membrane, ear canal and external ear normal. Nose: Nose normal. Mouth/Throat: Pharynx: Uvula midline. No pharyngeal swelling, oropharyngeal exudate, posterior oropharyngeal erythema or uvula swelling. Eyes: General: Lids are normal. No scleral icterus. Right eye: No discharge. Left eye: No discharge. Conjunctiva/sclera: Conjunctivae normal. Pupils: Pupils are equal, round, and reactive to light. Neck: Trachea: Trachea normal. Cardiovascular: Rate and Rhythm: Normal rate and regular rhythm. Heart sounds: Normal heart sounds. Pulmonary: Effort: Pulmonary effort is normal. Breath sounds: Normal breath sounds. Musculoskeletal: Cervical back: Normal range of motion and neck supple. Lymphadenopathy: Cervical: No cervical adenopathy. Right cervical: No superficial cervical adenopathy. Left cervical: No superficial cervical adenopathy. Skin: Findings: No rash. Neurological: Mental Status: She is alert and oriented to person, place, and time. ASSESSMENT/PLAN: 1. Pain in salivary gland region - ICD9: 527.8, ICD10: K11.8 Sialadentitis/parotitis vs tmj -use medication as prescribed -follow up if symptoms persist, worsen, change-with pcp next week - CEPHALEXIN 500 MG CAPSULE - PREDNISONE 20 MG TABLET Mars Russo APRN.JARED documented in this encounter [facility] 04-13-2022 Note HNO ID: [id number] Author: Mars Russo APRN.CNP Service: ? Author Type: Nurse Practitioner Type: Progress Notes Filed: 04/13/2022 8:56 AM Note Text: Subjective HPI HPI Ariella Godfrey is a 72 year old female who presents today for CC of cough, sinus pressure. This started 1 week ago/worsening past few days. Has tried otc medication for relief. Symptoms are worsened by nothing. Risk factors recent covid/improved then sick with this. Nonsmoker. Denies hx asthma/copd. .Patient presents with: Cough: productive, nasal congestion x 1 week PAST MEDICAL HISTORY Diagnosis Date Esophageal reflux Mitral valve disorders(424.0) Other premature beats Rheumatoid arthritis(714.0) PAST SURGICAL HISTORY Procedure Laterality Date LIG/TRNSXJ FLP TUBE ABDL/VAG APPR UNI/BI 1976 Tubal ligation PAST SURGICAL HISTORY OF bilateral lumpectomies- benign PAST SURGICAL HISTORY OF 07/22/2007 Left plantar fascitomy and left 5th hammertoe correction ALLERGIES Amoxicillin-Pot Clavulanate, Doxycycline, and Environmental [Other] MEDICATIONS predniSONE (DELTASONE) 10 mg tablet TAKE 1 TABLET BY MOUTH EVERY DAY NEEDED. Take for 3 - 5 days with a flare. albuterol HFA (PROVENTIL HFA, VENTOLIN HFA) 90 mcg/actuation inhaler Inhale 2 Puffs as instructed every 6 hours as needed for wheezing/shortness of breath. benzonatate (TESSALON PERLES) 100 mg capsule Take 2 capsules by mouth three times daily as needed for cough. fexofenadine hcl(PILLO 180 MG TAB) Take one(1) tablet daily. BUDESONIDE 32 MCG/ACTUATION NASAL SPRAY once spray each nostril once daily prn PRILOSEC 20 MG CAP Take one(1) capsule twice daily. LOPRESSOR 100 MG TAB Take one(1) tablet twice daily. PLAQUENIL 200 MG TAB Take one(1) tablet twice daily. azithromycin (ZITHROMAX Z-FERDINAND) 250 mg tablet Take 2 tablets day one, then, 1 tablet daily until gone. FAMILY HISTORY Problem Relation Age of Onset Breast Cancer Mother None Father father unknown Social History Tobacco Use Smoking status: Former Packs/day: 1.00 Years: 30.00 Pack years: 30.00 Types: Cigarettes Smokeless tobacco: Never Tobacco comments: d/c 2009 Substance Use Topics Alcohol use: No Drug use: No Review of Systems Constitutional: Negative for fever. HENT: Positive for congestion. Negative for ear discharge, ear pain, nosebleeds and sore throat. Respiratory: Positive for cough and sputum production. Negative for shortness of breath and wheezing. Cardiovascular: Negative for chest pain. Gastrointestinal: Negative for diarrhea and vomiting. Musculoskeletal: Negative for neck pain. Skin: Negative for itching and rash. Objective Blood pressure 122/68, pulse 88, temperature 36.9 ?C (98.5 ?F), resp. rate 18, weight 107 kg (236 lb), SpO2 99 %. Physical Exam Constitutional: General: She is not in acute distress. Appearance: She is not toxic-appearing or diaphoretic. HENT: Head: Normocephalic and atraumatic. Nose: Right Sinus: Maxillary sinus tenderness present. Left Sinus: Maxillary sinus tenderness present. Cardiovascular: Rate and Rhythm: Normal rate and regular rhythm. Heart sounds: Normal heart sounds, S1 normal and S2 normal. Pulmonary: Effort: Pulmonary effort is normal. Breath sounds: Normal breath sounds. No decreased breath sounds, wheezing, rhonchi or rales. Neurological: Mental Status: She is alert and oriented to person, place, and time. Gait: Gait is intact. ASSESSMENT/PLAN: 1. Sinobronchitis - ICD9: 473.9, 490, ICD10: J32.9, J40 - Will begin treatment with as per antibiotic as written, see orders - Supportive care with plenty of fluids, rest, and analgesia prn. - Follow up in 3-5 days if symptoms persist or worsen. --If you experience chest pain/shortness of breath go to ER - AZITHROMYCIN 250 MG TABLET Mars Russo APRN.JARED [facility] 04-13-2022 Instructions Mars Russo APRN.CNP - 04/13/2022 8:55 AM EST ASSESSMENT/PLAN: 1. Sinobronchitis - ICD9: 473.9, 490, ICD10: J32.9, J40 - Will begin treatment with as per antibiotic as written, see orders - Supportive care with plenty of fluids, rest, and analgesia prn. - Follow up in 3-5 days if symptoms persist or worsen. --If you experience chest pain/shortness of breath go to ER documented in this encounter [facility] 04-13-2022 History of Presen t illness Narrative Subjective HPI HPI Ariella Godfrey is a 72 year old female who presents today for CC of cough, sinus pressure. This started 1 week ago/worsening past few days. Has tried otc medication for relief. Symptoms are worsened by nothing. Risk factors recent covid/improved then sick with this. Nonsmoker. Denies hx asthma/copd. .Patient presents with: Cough: productive, nasal congestion x 1 week PAST MEDICAL HISTORY Diagnosis Date Esophageal reflux Mitral valve disorders(424.0) Other premature beats Rheumatoid arthritis(714.0) PAST SURGICAL HISTORY Procedure Laterality Date LIG/TRNSXJ FLP TUBE ABDL/VAG APPR UNI/BI 1976 Tubal ligation PAST SURGICAL HISTORY OF bilateral lumpectomies- benign PAST SURGICAL HISTORY OF 07/22/2007 Left plantar fascitomy and left 5th hammertoe correction ALLERGIES Amoxicillin-Pot Clavulanate, Doxycycline, and Environmental [Other] MEDICATIONS predniSONE (DELTASONE) 10 mg tablet TAKE 1 TABLET BY MOUTH EVERY DAY NEEDED. Take for 3 - 5 days with a flare. albuterol HFA (PROVENTIL HFA, VENTOLIN HFA) 90 mcg/actuation inhaler Inhale 2 Puffs as instructed every 6 hours as needed for wheezing/shortness of breath. benzonatate (TESSALON PERLES) 100 mg capsule Take 2 capsules by mouth three times daily as needed for cough. fexofenadine hcl(PILLO 180 MG TAB) Take one(1) tablet daily. BUDESONIDE 32 MCG/ACTUATION NASAL SPRAY once spray each nostril once daily prn PRILOSEC 20 MG CAP Take one(1) capsule twice daily. LOPRESSOR 100 MG TAB Take one(1) tablet twice daily. PLAQUENIL 200 MG TAB Take one(1) tablet twice daily. azithromycin (ZITHROMAX Z-FERDINAND) 250 mg tablet Take 2 tablets day one, then, 1 tablet daily until gone. FAMILY HISTORY Problem Relation Age of Onset Breast Cancer Mother None Father father unknown Social History Tobacco Use Smoking status: Former Packs/day: 1.00 Years: 30.00 Pack years: 30.00 Types: Cigarettes Smokeless tobacco: Never Tobacco comments: d/c 2009 Substance Use Topics Alcohol use: No Drug use: No Review of Systems Constitutional: Negative for fever. HENT: Positive for congestion. Negative for ear discharge, ear pain, nosebleeds and sore throat. Respiratory: Positive for cough and sputum production. Negative for shortness of breath and wheezing. Cardiovascular: Negative for chest pain. Gastrointestinal: Negative for diarrhea and vomiting. Musculoskeletal: Negative for neck pain. Skin: Negative for itching and rash. Objective Blood pressure 122/68, pulse 88, temperature 36.9 C (98.5 F), resp. rate 18, weight 107 kg (236 lb), SpO2 99 %. Physical Exam Constitutional: General: She is not in acute distress. Appearance: She is not toxic-appearing or diaphoretic. HENT: Head: Normocephalic and atraumatic. Nose: Right Sinus: Maxillary sinus tenderness present. Left Sinus: Maxillary sinus tenderness present. Cardiovascular: Rate and Rhythm: Normal rate and regular rhythm. Heart sounds: Normal heart sounds, S1 normal and S2 normal. Pulmonary: Effort: Pulmonary effort is normal. Breath sounds: Normal breath sounds. No decreased breath sounds, wheezing, rhonchi or rales. Neurological: Mental Status: She is alert and oriented to person, place, and time. Gait: Gait is intact. ASSESSMENT/PLAN: 1. Sinobronchitis - ICD9: 473.9, 490, ICD10: J32.9, J40 - Will begin treatment with as per antibiotic as written, see orders - Supportive care with plenty of fluids, rest, and analgesia prn. - Follow up in 3-5 days if symptoms persist or worsen. --If you experience chest pain/shortness of breath go to ER - AZITHROMYCIN 250 MG TABLET Mars Russo APRN.JARED documented in this encounter [facility] 03-15-2022 Miscellaneous Notes Patient notified of results and provider's instructions. Patient verbalizes understanding. Aide Acuna RN Please call and let patient know she was positive for COVID. She needs to quarantine for 5 days from first day of symptoms. On day 6 if feeling better and no fever may break quarantine but needs to wear a mask for another 5 days. She is in the window for oral antiviral treatment if she would like to follow-up with her PCP for this. This needs to be started within the first 5 days of symptoms. documented in this encounter [facility] 03-14-2022 Influenza virus A and B RNA and SARS-CoV-2 (COVID-19) N gene panel JANA+probe (Resp) COVID 19 RESULT: SARS-CoV-2 (Agent of COVID-19) Detected by RT-PCR or equivalent method. rodrigo [id number] ([place])_EUA This test was developed and its performance characteristics determined by [facility]'s [facility] [place]. This test has been authorized by FDA under an Emergency Use Authorization (EUA). This test has been validated in accordance with the FDA's Guidance Document Policy for Diagnostics Testing in Laboratories Certified to Perform High Complexity Testing under CLIA prior to Emergency use Authorization for Coronavirus Disease 2019 during the Public Health Emergency issued on June 12, 2019. Test performed by [facility], [facility] [place], [address] [place] [address]. INFLUENZA A PCR: Negative for Influenza A by RT-PCR INFLUENZA B PCR: Negative for Influenza B by RT-PCR [facility] documented as of this encounter (statuses as of 09/07/2021) [facility] History of Past illness Narrative* Problem Noted Date Resolved Date Abnormality of gait 07/15/2007 07/15/2007 documented as of this encounter (statuses as of 09/14/2021) [facility] History of Past illness Narrative* Problem Noted Date Resolved Date Abnormality of gait 07/15/2007 07/15/2007 documented as of this encounter (statuses as of 03/14/2022) [facility] History of Past illness Narrative* Problem Noted Date Resolved Date Abnormality of gait 07/15/2007 07/15/2007 documented as of this encounter (statuses as of 03/15/2022) [address]02-2008 History of Past illness Narrative* Problem Noted Date Resolved Date Abnormality of gait 07/15/2007 07/15/2007 documented as of this encounter (statuses as of 04/18/2022) [address]2008 History of Past illness Narrative* Problem Noted Date Resolved Date Abnormality of gait 07/15/2007 07/15/2007 documented as of this encounter (statuses as of 08/16/2022) [address] History of Past illness Narrative* Problem Noted Date Resolved Date Abnormality of gait 07/15/2007 07/15/2007 documented as of this encounter (statuses as of 09/26/2022) [address] History of Past illness Narrative* Problem Noted Date Resolved Date Abnormality of gait 07/15/2007 07/15/2007 documented as of this encounter (statuses as of 09/27/2022) [address] History of Past illness Narrative* Problem Noted Date Diagnosed Date Resolved Date Abnormality of gait 07/15/2007 07/15/19 08 documented as of this encounter (statuses as of 12/23/2022) [address]2008 History of Past illness Narrative* Problem Noted Date Diagnosed Date Resolved Date Abnormality of gait 07/15/2007 07/15/19 08 documented as of this encounter (statuses as of 01/29/2023) [address] History of Past illness Narrative* Problem Noted Date Diagnosed Date Resolved Date Abnormality of gait 07/15/2007 07/15/19 08 documented as of this encounter (statuses as of 02/11/2023) [address] History of Past illness Narrative* Problem Noted Date Diagnosed Date Resolved Date Abnormality of gait 07/15/2007 07/15/19 08 documented as of this encounter (statuses as of 02/26/2023) [facility]- [facility] Diagnosis URI, acute- Primary Acute upper respiratory infections of unspecified site [facility] Diagnosis Sinobronchitis- Primary Unspecified sinusitis (chronic) [facility] Diagnosis Pain in salivary gland region- Primary documented in this encounter [facility]* Diagnosis Acute cough- Primary Viral illness Unspecified viral infection, in conditions classified elsewhere and of unspecified site Suspected COVID-19 virus infection documented in this encounter [facility] note* Diagnosis Lower resp. tract infection- Primary Other diseases of respiratory system, not elsewhere classified documented in this encounter [facility] note* Diagnosis Closed nondisplaced fracture of proximal phalanx of lesser toe of right foot, initial encounter- Primary Toe injury, right, initial encounter documented in this encounter [facility] note* Diagnosis Closed nondisplaced fracture of proximal phalanx of lesser toe of right foot, initial encounter documented in this encounter [facility] note* Diagnosis Closed nondisplaced fracture of proximal phalanx of lesser toe of right foot, initial encounter documented in this encounter [facility] for referral (narrative)* Diagnostic Procedure Only (Routine) - Pending Review Specialty Diagnoses / Procedures Referred By Quentin guerrero Referred To Contact XR IMAGING Diagnoses Closed nondisplaced fracture of proximal phalanx of lesser toe of right foot, initial encounter Procedures XR TOE AP/LAT/OBL RIGHT RADEX TOE MINIMUM 2 VIEWS Albert Hendricks [address] [place] [address] [place] [address] Referral ID Status Reason Start Date Expiration Date Visits Requested Visits Authorized [id number] Pending Review Auto-Generat ed Referral 3 03/12/2024 1 1 [facility] for visit Narrative* Diagnostic Procedure Only (Routine) - Closed Specialty Diagnoses / Procedures Referred By Contac t Referred To Contact XR IMAGING Diagnoses Closed nondisplaced fracture of proximal phalanx of lesser toe of right foot, initial encounter Procedures XR TOE AP/LAT/OBL RIGHT RADEX TOE MINIMUM 2 VIEWS Albert Hendricks [address] [place] [address] [place] [address] Referral ID Status Reason Start Date Expiration Date V isits Requested Visits Authorized [id number] Closed Auto-Generate d Referral 02/11/2023 03/12/2024 1 1 [facility] Health Concerns Infection Onset Date Last Indicated Resolved Time COVID-19 Rule-Out 03/14/2022 03/14/2022 Infection Onset Date Last Indicated Resolved Time COVID-19 Confirmed 03/14/2022 03/14/2022 Infection Onset Date Last Indicated Resolved Time COVID-19 Rule-Out 09/26/2022 09/26/2022 Infection Onset Date Last Indicated Resolved Time COVID-19 Rule-Out 09/26/2022 09/26/2022 09/26/2022 6:36 PM EDT Reason for Referral Specialty Diagnoses / Procedures Referred By Quentin t Referred To Contact Podiatry Diagnoses Closed nondisplaced fracture of proximal phalanx of lesser toe of right foot, initial encounter Procedures CONSULT TO PODIATRY OFFICE/OUTPATIENT [facility] MDM 60-74 MINUTES Mars Russo APRN.HYDROELECTRIC MACHINERY MECHANIC [address] [place] [address] Referral ID Status Reason Start Date Expiration Date Visits Requested Visits Authorized [id number] Authorized PCP Requested Referral 3 01/29/2024 1 1 Specialty Diagnoses / Procedures Referred By Quentin guerrero Referred To Contact XR IMAGING Diagnoses Toe injury, right, initial encounter Procedures XR TOE AP/LAT/OBL RIGHT RADEX TOE MINIMUM 2 VIEWS Mars Russo APRN.HYDROELECTRIC MACHINERY MECHANIC [address] [place] [address] [place] [address] Referral ID Status Reason Start Date Expiration Date V isits Requested Visits Authorized [id number] Closed Auto-Generate d Referral 01/29/2023 02/28/2024 1 1 Summary Purpose Family History No Family History Records Found Advance Directives No Advanced Directives Records Found Additional Source Comments Source Comments (unrecognize d section and content) In the event this informatio n is protected by the Federal Confidentiality of Alcohol and Drug Abuse Patient Records regulations: The Federal rules restrict any use of the information to criminally investigate or prosecute any alcohol or drug abuse patient.[facility] the event this information is protected by the Federal Confidentiality of Alcohol and Drug Abuse Patient Records regulations: The Federal rules restrict any use of the information to criminally investigate or prosecute any alcohol or drug abuse patient.[facility] the event this information is protected by the Federal Confidentiality of Alcohol and Drug Abuse Patient Records regulations: The Federal rules restrict any use of the information to criminally investigate or prosecute any alcohol or drug abuse patient.[facility] the event this information is protected by the Federal Confidentiality of Alcohol and Drug Abuse Patient Records regulations: The Federal rules restrict any use of the information to criminally investigate or prosecute any alcohol or drug abuse patient.[facility] the event this information is protected by the Federal Confidentiality of Alcohol and Drug Abuse Patient Records regulations: The Federal rules restrict any use of the information to criminally investigate or prosecute any alcohol or drug abuse patient.[facility] the event this information is protected by the Federal Confidentiality of Alcohol and Drug Abuse Patient Records regulations: The Federal rules restrict any use of the information to criminally investigate or prosecute any alcohol or drug abuse patient.[facility] the event this information is protected by the Federal Confidentiality of Alcohol and Drug Abuse Patient Records regulations: The Federal rules restrict any use of the information to criminally investigate or prosecute any alcohol or drug abuse patient.[facility] the event this information is protected by the Federal Confidentiality of Alcohol and Drug Abuse Patient Records regulations: The Federal rules restrict any use of the information to criminally investigate or prosecute any alcohol or drug abuse patient.[facility] the event this information is protected by the Federal Confidentiality of Alcohol and Drug Abuse Patient Records regulations: The Federal rules restrict any use of the information to criminally investigate or prosecute any alcohol or drug abuse patient.[facility] the event this information is protected by the Federal Confidentiality of Alcohol and Drug Abuse Patient Records regulations: The Federal rules restrict any use of the information to criminally investigate or prosecute any alcohol or drug abuse patient.[facility] the event this information is protected by the Federal Confidentiality of Alcohol and Drug Abuse Patient Records regulations: The Federal rules restrict any use of the information to criminally investigate or prosecute any alcohol or drug abuse patient.[facility] the event this information is protected by the Federal Confidentiality of Alcohol and Drug Abuse Patient Records regulations: The Federal rules restrict any use of the information to criminally investigate or prosecute any alcohol or drug abuse patient.[facility] Reason for Visit (unrecogniz ed section and content) Reason Comments Cough Pt reported SOB w/ c oughing, denied chest pain, nasal congestion Reason Comments Nasal Congestion Chest congestion, fe zuleika, cough, x1 day. Reason Comments Results Reason Comments Cough productive, nasal co ngestion x 1 week Reason Comments Pain Pt reported (RT) jaw swelling, ear pain, x1 day. Reason Comments Cough Pt reported chest co ngestion, fever, x2 days. Reason Comments Cough X 1 week Reason Comments Toe Pain (Toe) Right toe pain x1 we ek Reason Comments New Pain Fracture Swelling Specialty Diagnoses / Procedures Referred By Quentin t Referred To Contact Podiatry Diagnoses Closed nondisplaced fracture of proximal phalanx of lesser toe of right foot, initial encounter Procedures CONSULT TO PODIATRY OFFICE/OUTPATIENT [facility] 60-74 MINUTES Mars Russo APRN.[employer]IC [address] [place] [address] Referral ID Status Reason Start Date Expiration Date V isits Requested Visits Authorized [id number] Closed PCP Requested Referral 01/29/2023 01/29/2024 1 1 Care Teams (unrecognized sec tion and content) [employer]isqueak Filler Relationship Specialty Start Date End Date Eric Lozano MD [address] [place] [address] [phone] PCP - General Family Practice 12/22/20 Antisqueak Filler Relationship Specialty Start Date End Date Eric Lozano MD [address] [place] [id number] PCP - General Family Medicine 12/22/20 Antisqueak Filler Relationship Specialty Start Date End Date Eric Lozano MD [address] [place] [id number] PCP - General Family Medicine 12/22/20 Antisqueak Filler Relationship Specialty Start Date End Date Eric Lozano MD [address] [place] [id number] PCP - General Family Medicine 12/22/20 Antisqueak Filler Relationship Specialty Start Date End Date Eric Lozano MD [address] [place] [id number] PCP - General Family Medicine 12/22/20 Antisqueak Filler Relationship Specialty Start Date End Date Eric Lozano MD [address] [facility] [place] [address] PCP - General Family Medicine 12/22/20 Antisqueak Filler Relationship Specialty Start Date End Date Eric Lozano MD [address] [place] [address] PCP - General Family Medicine 12/22/20 Antisqueak Filler Relationship Specialty Start Date End Date Eric Lozano MD [address] [place] [address] PCP - General Family Medicine 12/22/20 Antisqueak Filler Relationship Specialty Start Date End Date Eric Lozano MD [address] [place] [address] PCP - General Family Medicine 12/22/20 Antisqueak Filler Relationship Specialty Start Date End Date Eric Lozano MD [address] [facility] [place] [address] PCP - General Family Medicine 12/22/20 Antisqueak Filler Relationship Specialty Start Date End Date Eric Lozano MD [address] [place] [place] [address] PCP - General Family Medicine 12/22/20 INFORMATION SOURCE (unrecogn ized section and content) FOR RECORDS PERTAINING TO PATIENTS WHO ARE OR HAVE BEEN ENROLLED IN A CHEMICAL DEPENDENCY/SUBSTANCEABUSE PROGRAM, SOME INFORMATION MAY BE OMITTED. This clinical summary was aggregated from multiple sources. Caution should be exercised in using it in the provision of clinical care. This summary normalizes information from multiple sources, and as a consequence, information in this document may materially change the coding, format and clinical context of patient data. In addition, data may be omitted in some cases. CLINICAL DECISIONS SHOULD BE BASED ON THE PRIMARY CLINICAL RECORDS. [facility] [employer] [facility]. provides no warranty or guarantee of the accuracy or completeness of information in this document.
[2023-05-31 16:53] VITALS: BP 147/59; PULSE 60; O2SAT 100
[2023-05-31 17:47] VITALS: BP 141/59; PULSE 60; RESP 16; TEMP 36.6; O2SAT 95
== END 2023-05-31 17:48 | disposition home or self-care (01) ==
PROVIDERS: Emergency Provider Emergency Medicine; PCP Family Medicine; Visit Provider Emergency Medicine
DX: S82.842A Displaced bimalleolar fracture of left lower leg, initial encounter for closed fracture (principal); J44.9 Chronic obstructive pulmonary disease, unspecified; S82.002A Unspecified fracture of left patella, initial encounter for closed fracture; W19.XXXA Unspecified fall, initial encounter; Z87.891 Personal history of nicotine dependence
CPT/HCPCS: 29505; 73562; 73610; 99284

== ENCOUNTER → 2023-06-05 | Outpatient (CLI) | payer MEDICARE, OTHER, SELFPAY ==
--- NOTE | 2023-06-05 11:35 | CT_ITS ---
CT LEFT LOWER EXTREMITY WITH 3-D IMAGING CLINICAL INDICATION: Patient had a fall 3 days ago. TECHNIQUE: Axial CT images of the LEFT lower extremity was performed IV contrast material. Coronal and sagittal reformats were provided. RADIATION DOSAGE (If Supplied By Facility): CTDIvol = ( 15.35 ) mGy, DLP = ( 761.25 ) mGycm COMPARISON: No relevant prior comparison study available FINDINGS: Bones: Degenerative changes of the medial and lateral aspects of the knee joint with degenerative spur formation. There is evidence of a nondisplaced fracture of the lateral tibial plateau. There is evidence of a 1 mm depression of the lateral malleolus. Soft Tissues: Moderate to large size joint effusion. Soft tissue swelling. CT/Extremity Lower without Contra IMPRESSION: Nondisplaced fracture of the lateral tibial plateau with a 1 mm depression of the articular surface. Moderate to large sized joint effusion. Degenerative changes of the medial lateral compartments of knee joint. Electronically Signed: Craig Lindo MD at 12:35 EST ,
--- NOTE | 2023-06-05 11:36 | CT_ITS ---
CT LEFT LOWER EXTREMITY WITH 3-D IMAGING CLINICAL INDICATION: ANKLE FX following a fall. TECHNIQUE: Axial CT images of the LEFT lower extremity was performed without IV contrast material. Coronal and sagittal reformats as well as 3D reformats were provided. RADIATION DOSAGE (If Supplied By Facility): CTDIvol = ( 15.35 ) mGy, DLP = ( 761.25 ) mGycm COMPARISON: No relevant prior comparison study available FINDINGS: Bones: Nondisplaced avulsion fracture of the medial malleolus. Nondisplaced transverse fracture of the lateral malleolus. The ankle mortise is symmetrical. Avulsion fracture of the posterior tibial malleolus. Soft Tissues: Diffuse soft tissue swelling. CT/Extremity Lower without Contra IMPRESSION: Nondisplaced trimalleolar fracture with 2 soft tissue swelling. The ankle mortise is symmetrical. Electronically Signed: Craig Lindo MD at 12:39 EST ,
--- OUTSIDE RECORDS SUMMARY | 2023-06-05 12:04 | XMS RPT_ITS | CCD ---
Author Name Unknown Address [address] [place] [address] Organization [facility] Care Team Providers Care Senior Dot Net Developer Name Role Phone Sarahy VALDIVIA, Nicole A [...] Primary Care Unavailable MARS RUSSO Referring Unavailable LOZANO, A Primary Care Unavailable ALBERT HENDRICKS Attending [...] Doxycycline; Translations: [DOXYCYCLINE] Drug Allergy 2 Unknown [facility] (12 sources) environmental [Other] Propensity to adverse reactions 7 [facility] Work Phone: (11 sources) Amoxicillin / Clavulanate; Translations: [AMOXICILLIN-POT CLAVULANATE] Drug Allergy 6 GI Upset [facility] (1 source) OTHER; Translations: [OTHER] Propensity to adverse reactions (disorder) 7 [facility] Main [place] [facility] Medications Current Medications Medication Drug Class(es) [...] 5-325 MG TABS as directed HYDROCODONE-ACETAM INOPHEN [id number] Mario Taveras MD [id number] 200 actuat albuterol 0.09 mg/actuat metered dose [...] 98.2 [degF] Mars Russo APRN.CNP Work Phone: [facility] 01-29-2023 12:21-0400 Body weight 103.15 kg Mars Russo APRN.CNP Work Phone: [facility] 01-29-2023 12:21-0400 Diastolic blood pressure 76 mm[Hg] Mars Karan DONOR SUPPORT TECHNICIAN.ASSOCIATE MEDICAL DIRECTOR Work Phone: [facility] 01-29-2023 12:21-0400 Heart rate 66 /min Mars Karan DONOR SUPPORT TECHNICIAN.ASSOCIATE MEDICAL DIRECTOR Work Phone: [facility] 01-29-2023 12:21-0400 Respiratory rate 16 /min Mars Karan DONOR SUPPORT TECHNICIAN.ASSOCIATE MEDICAL DIRECTOR Work Phone: [facility] 01-29-2023 12:21-0400 SaO2% (BldA) [Mass fraction] 96 % Mars Karan DONOR SUPPORT TECHNICIAN.ASSOCIATE MEDICAL DIRECTOR Work Phone: [facility] 01-29-2023 12:21-0400 Systolic blood pressure 122 mm[Hg] Mars Karan DONOR SUPPORT TECHNICIAN.ASSOCIATE MEDICAL DIRECTOR Work Phone: [facility] 12-23-2022 10:38-0400 Body temperature 97.2 [degF] Mars Karan DONOR SUPPORT TECHNICIAN.ASSOCIATE MEDICAL DIRECTOR Work Phone: [facility] 12-23-2022 10:38-0400 Body weight 102.6 kg Mars Karan DONOR SUPPORT TECHNICIAN.ASSOCIATE MEDICAL DIRECTOR Work Phone: [facility] 12-23-2022 10:38-0400 Diastolic blood pressure 68 mm[Hg] Mars Karan DONOR SUPPORT TECHNICIAN.ASSOCIATE MEDICAL DIRECTOR Work Phone: [facility] 12-23-2022 10:38-0400 Heart rate 85 /min Mars Karan DONOR SUPPORT TECHNICIAN.ASSOCIATE MEDICAL DIRECTOR Work Phone: [facility] 12-23-2022 10:38-0400 Respiratory rate 21 /min Mars Karan DONOR SUPPORT TECHNICIAN.ASSOCIATE MEDICAL DIRECTOR Work Phone: [facility] 12-23-2022 10:38-0400 SaO2% (BldA) [Mass fraction] 97 % Mars Karan DONOR SUPPORT TECHNICIAN.ASSOCIATE MEDICAL DIRECTOR Work Phone: [facility] 12-23-2022 10:38-0400 Systolic blood pressure 150 mm[Hg] Mars Karan DONOR SUPPORT TECHNICIAN.ASSOCIATE MEDICAL DIRECTOR Work Phone: [facility] 09-26-2022 08:50-0400 Body temperature 99.39 [degF] [facility] DONOR SUPPORT TECHNICIAN.ASSOCIATE MEDICAL DIRECTOR Work Phone: [facility] 09-26-2022 08:50-0400 Body weight 102.97 kg [facility] DONOR SUPPORT TECHNICIAN.ASSOCIATE MEDICAL DIRECTOR Work Phone: [facility] 09-26-2022 08:50-0400 Diastolic blood pressure 88 mm[Hg] [facility] DONOR SUPPORT TECHNICIAN.ASSOCIATE MEDICAL DIRECTOR Work Phone: [facility] 09-26-2022 08:50-0400 Heart rate 76 /min [facility] DONOR SUPPORT TECHNICIAN.ASSOCIATE MEDICAL DIRECTOR Work Phone: [facility] 09-26-2022 08:50-0400 Respiratory rate 18 /min [facility] DONOR SUPPORT TECHNICIAN.ASSOCIATE MEDICAL DIRECTOR Work Phone: [facility] 09-26-2022 08:50-0400 SaO2% (BldA) [Mass fraction] 96 % [facility] DONOR SUPPORT TECHNICIAN.ASSOCIATE MEDICAL DIRECTOR Work Phone: [facility] 09-26-2022 08:50-0400 Systolic blood pressure 134 mm[Hg] [facility] DONOR SUPPORT TECHNICIAN.ASSOCIATE MEDICAL DIRECTOR Work Phone: [facility] 08-15-2022 18:20-0400 Body temperature 98.1 [degF] Mars Karan DONOR SUPPORT TECHNICIAN.ASSOCIATE MEDICAL DIRECTOR Work Phone: [facility] 08-15-2022 18:20-0400 Body weight 108.14 kg Mars Russo DONOR SUPPORT TECHNICIAN.ASSOCIATE MEDICAL DIRECTOR Work Phone: [facility] 08-15-2022 18:20-0400 Diastolic blood pressure 74 mm[Hg] Mars Karan DONOR SUPPORT TECHNICIAN.ASSOCIATE MEDICAL DIRECTOR Work Phone: [facility] 08-15-2022 18:20-0400 Heart rate 63 /min Mars Russo DONOR SUPPORT TECHNICIAN.ASSOCIATE MEDICAL DIRECTOR Work Phone: [facility] 08-15-2022 18:20-0400 Respiratory rate 16 /min Mars Russo DONOR SUPPORT TECHNICIAN.ASSOCIATE MEDICAL DIRECTOR Work Phone: [facility] 05-04-2023 18:20-0400 SaO2% (BldA) [Mass fraction] 97 % Mars Russo DONOR SUPPORT TECHNICIAN.ASSOCIATE MEDICAL DIRECTOR Work Phone: [facility] 08-15-2022 18:20-0400 Systolic blood pressure 130 mm[Hg] Mars Russo DONOR SUPPORT TECHNICIAN.ASSOCIATE MEDICAL DIRECTOR Work Phone: [facility] 04-13-2022 08:32-0500 Body temperature 98.49 [degF] Mars Russo DONOR SUPPORT TECHNICIAN.ASSOCIATE MEDICAL DIRECTOR Work Phone: [facility] 04-13-2022 08:32-0500 Body weight 107.05 kg Mars Russo DONOR SUPPORT TECHNICIAN.ASSOCIATE MEDICAL DIRECTOR Work Phone: [facility] 04-13-2022 08:32-0500 Diastolic blood pressure 68 mm[Hg] Mars Russo DONOR SUPPORT TECHNICIAN.ASSOCIATE MEDICAL DIRECTOR Work Phone: [facility] 04-13-2022 08:32-0500 Heart rate 88 /min Mars Russo DONOR SUPPORT TECHNICIAN.ASSOCIATE MEDICAL DIRECTOR Work Phone: [facility] 04-13-2022 08:32-0500 Respiratory rate 18 /min Mars Russo DONOR SUPPORT TECHNICIAN.ASSOCIATE MEDICAL DIRECTOR Work Phone: [facility] 04-13-2022 08:32-0500 SaO2% (BldA) [Mass fraction] 99 % Mars Russo DONOR SUPPORT TECHNICIAN.ASSOCIATE MEDICAL DIRECTOR Work Phone: [facility] 04-13-2022 08:32-0500 Systolic blood pressure 122 mm[Hg] Mars Russo DONOR SUPPORT TECHNICIAN.ASSOCIATE MEDICAL DIRECTOR Work Phone: [facility] 03-14-2022 09:52-0500 Body temperature 100 [degF] Anny Roach DONOR SUPPORT TECHNICIAN.ASSOCIATE MEDICAL DIRECTOR Work Phone: [facility] 03-14-2022 09:52-0500 Body weight 106.69 kg Anny Roach DONOR SUPPORT TECHNICIAN.ASSOCIATE MEDICAL DIRECTOR Work Phone: [facility] 03-14-2022 09:52-0500 Diastolic blood pressure 86 mm[Hg] Anny Roach DONOR SUPPORT TECHNICIAN.ASSOCIATE MEDICAL DIRECTOR Work Phone: [facility] 03-14-2022 09:52-0500 Heart rate 74 /min Anny Roach APRN.ASSOCIATE MEDICAL DIRECTOR Work Phone: [facility] 03-14-2022 09:52-0500 Respiratory rate 18 /min Anny Roach APRN.ASSOCIATE MEDICAL DIRECTOR Work Phone: [facility] 03-14-2022 09:52-0500 SaO2% (BldA) [Mass fraction] 97 % Anny Roach APRN.ASSOCIATE MEDICAL DIRECTOR Work Phone: [facility] 03-14-2022 09:52-0500 Systolic blood pressure 142 mm[Hg] Anny Roach APRN.ASSOCIATE MEDICAL DIRECTOR Work Phone: [facility] 09-14-2021 10:05-0400 Body temperature 99 [degF] Anny Roach APRN.ASSOCIATE MEDICAL DIRECTOR Work Phone: [facility] 09-14-2021 10:05-0400 Body weight 107.78 kg Anny Roach APRN.ASSOCIATE MEDICAL DIRECTOR Work Phone: [facility] 09-14-2021 10:05-0400 Diastolic blood pressure 94 mm[Hg] Anny Roach APRN.ASSOCIATE MEDICAL DIRECTOR Work Phone: [facility] 09-14-2021 10:05-0400 Heart rate 85 /min Anny Roach APRN.ASSOCIATE MEDICAL DIRECTOR Work Phone: [facility] 09-14-2021 10:05-0400 Respiratory rate 22 /min Anny Roach APRN.ASSOCIATE MEDICAL DIRECTOR Work Phone: [facility] 09-14-2021 10:05-0400 SaO2% (BldA) [Mass fraction] 97 % Anny Roach APRN.ASSOCIATE MEDICAL DIRECTOR Work Phone: [facility] 09-14-2021 10:05-0400 Systolic blood pressure 168 mm[Hg] Anny Roach APRN.ASSOCIATE MEDICAL DIRECTOR Work Phone: [facility] 09-07-2021 10:22-0400 Body temperature 98.29 [degF] Anny Roach APRN.ASSOCIATE MEDICAL DIRECTOR Work Phone: [facility] 09-07-2021 10:22-0400 Body weight 110.68 kg Anny Roach APRN.ASSOCIATE MEDICAL DIRECTOR Work Phone: [facility] 09-07-2021 10:22-0400 Diastolic blood pressure 82 mm[Hg] Anny Roach APRN.ASSOCIATE MEDICAL DIRECTOR Work Phone: [facility] 09-07-2021 10:22-0400 Heart rate 82 /min Anny Roach APRN.ASSOCIATE MEDICAL DIRECTOR Work Phone: [facility] 09-07-2021 10:22-0400 Respiratory rate 24 /min Anny Roach APRN.ASSOCIATE MEDICAL DIRECTOR Work Phone: [facility] 09-07-2021 10:22-0400 SaO2% (BldA) [Mass fraction] 93 % Anny Roach APRN.ASSOCIATE MEDICAL DIRECTOR Work Phone: [facility] 09-07-2021 10:22-0400 Systolic blood pressure 152 mm[Hg] Anny Roach APRN.ASSOCIATE MEDICAL DIRECTOR Work Phone: [facility] 10-16-2016 15:12-0400 Heart rate 48 /min [facility] Work Phone: 10-16-2016 14:46-0400 BMI (Body Mass Index) 34.85 kg/m2 [facility] Work Phone: 10-16-2016 14:46-0400 [...] Body Temperature 98 [degF] Nicole Weathers RN [facility] Work Phone: 01-22-2016 10:56-0400 BP Diastolic 75 mm[Hg] Nicole Weathers RN [facility] Work Phone: 01-22-2016 10:56-0400 BP Systolic 131 mm[Hg] Nicole Weathers RN [facility] Work Phone: 01-22-2016 10:56-0400 BSA (Body Surface Area) 2.26 m2 Nicole Weathers RN [facility] Work Phone: 01-22-2016 10:56-0400 Height 175.26 cm Nicole Weathers RN [facility] Work Phone: 01-22-2016 10:56-0400 Pulse (Heart Rate) 68 /min Nicole Weathers RN [facility] Work Phone: 01-22-2016 10:56-0400 Pulse Oximetry 95 % Nicole Weathers RN [facility] Work Phone: 01-22-2016 10:56-0400 Respiratory Rate 18 /min Nicole Weathers RN [facility] Work Phone: 01-22-2016 10:56-0400 Weight 112.36 kg Nicole Weathers RN [facility] Work Phone: 01-22-2016 10:56-0400 Weight 112.13 kg Nicole Weathers RN [facility] Work Phone: 07-25-2015 11:17-0400 Body Temperature 98.01 [degF] Nicole Weathers RN [facility] Work Phone: 05-09-2014 13:39-0500 Height 175.26 cm Nicole Weathers RN [facility] Work Phone: Encounters Encounter Date Encounter Type Care Provider Facility Start: 02-25-2023 End: 02-25-2023 ambulatory ALBERT HENDRICKS Facility:[facility] Start: 02-25-2023 End: 02-25-2023 Subsequent hospital visit by physician Xr [facility] Work Phone: Radiology Procedures Date Procedure [...] Work Phone: Start: 06-29-2007 Mammography Anny Roach APRN.ASSOCIATE MEDICAL DIRECTOR Work Phone: Start: 06-26-2007 Lipid 1996 panel - Serum or Plasma Mars Russo APRN.ASSOCIATE MEDICAL DIRECTOR Work Phone: Plan of Treatment Date Care Activity Detail Author Start: 11-17-2024 Urine microalbumin profile DTaP,Tdap,Td Vaccine (2 - Td or Tdap) [facility] Start: 12-13-2022 Influenza vaccination C [facility] Start: 09-26-2022 End: 10-10-2022 Influenza virus A and B RNA and SARS-CoV-2 (COVID-19) N gene panel - Respiratory specimen by JANA with probe detection [facility] Work Phone: Immunizations Immunization Date Immunization Notes Care Provider Fa cilistephan 03-01-2019 influenza virus vacc ine, unspecified formulation Mars Russo APRN.ASSOCIATE MEDICAL DIRECTOR Work Phone: [facility] Payers Date Payer Category Payer Medicare MEDICARE MEDICAR E A AND B [id number] 2017-Present [phone] [address] [address] [place] [address] Medicare [id number] 2017 Medicare MEDICARE MEDICAR E A AND B [id number] 2017-Present [phone] [place] [address] Medicare [id number] 2017 Medicare [id number] 2017 Medicare [id number] 2017 Private Health Insurance HUMANA HUMANA MEDICARE SUPPLEMENT [id number] 2017-Present [phone] [address] [address] [place] [address] Indemnity [id number] 2017 Private Health Insurance HUMANA HUMANA MEDICARE SUPPLEMENT [id number] 2017-Present [phone] [address] [address] [place] [address] Indemnity [id number] Social History Date Type Detail Facility Tobacco smoking stat us MOIS Smokes tobacco daily [facility] End: 04-14-2012 History of tobacco use Cigarette Smoker [facility] Start: 09-07-2021 End: 02-11-2023 Alcohol intake Current non-drinker of alcohol (finding) [facility] Start: 1950 Sex Assigned At Not on file C [facility] Start: 09-14-2021 End: 02-11-2023 Tobacco smoking status NHIS Ex-smoker [facility] Start: 09-14-2021 End: 02-11-2023 Cigarettes smoked current (pack per day) - Reported 1 [facility] Start: 09-14-2021 End: 02-11-2023 Tobacco use and exposure Smokeless tobacco non-user [facility] Start: 09-14-2021 End: 03-14-2022 Tobacco Comment d/c 2009 [facility] Start: 09-04-2021 End: 03-14-2022 Exposure to SARS-CoV-2 (event) Not sure [facility] Work Phone: End: 04-14-2012 History of tobacco use Current smoker [facility] Start: 12-23-2022 End: 02-11-2023 Tobacco use panel [facility] National Score (1-10 0), lower number is lower risk Not on file [facility] Clinical Notes 07-15-2007 to 02-25-2023 Shawna Florence RT(R) - 02/25/2023 9:40 AM ESTPatient InstructionsAblert Hendricks - 02/11/2023 9:03 AM EDShanti Briones LPN - 02/11/2023 8:43 AM EDTPatient InstructionsPatient Instructions Note Date & Type Note Facility 02-25-2023 Note HNO ID: [id number] Author: Shawna Florence RT(R) Service: ? Author [...] RT Romario(Fabrice) February 25, 2023 11:07 AM [facility] 02-25-2023 History of Presen t illness Narrative [...] 2023 11:07 AM documented in this encounter [facility] 02-11-2023 Note HNO ID: [id number] Author: Albert Hendricks Service: ? Author Type: [...] good color, t (more content not included)... [facility] 02-11-2023 Note HNO ID: [id number] Author: Shanti Lozano LPN Service: ? Author Type: LICENSED NURSE Type: Progress Notes Filed: 02/11/2023 9:12 AM Note Text: AMB ROOMING INTAKE FLOWSHEET DATA Pain Pain Level: 6 Pain Location: Toe Description: Burning Duration Amount of Time: 3 Duration Units: Weeks Frequency: Continuous Intervention/Comfort measure: Reposition, Relaxation, Medication Patient presents with: Right Foot - New, Pain, Fracture, Swelling Shanti Lozano LPN [facility] 02-11-2023 Instructions Albert Hendricks - 02/11/2023 9:08 AM EDT You have fracture of right 2nd toe. Continue with post-op shoe (surgical) or firm sole sneaker Repeat xrays in 2 weeks documented in this encounter [facility] 02-11-2023 History of Presen t illness Narrative [...] phalanx and compression fracture of dipj ASSESSMENT: (S92.546A) Closed nondisplaced fracture of proximal phalanx of lesser toe of right foot, initial encounter PLAN: 1. History and physical examination performed. 2. XR reviewed with patient and interpreted today 3. Discussed fracture of right 2nd toe. Continue with post-op shoe or firm sole sneaker 4. Repeat xrays in 2 weeks Albert Hendricks DPM Podiatry [address] [facility] [address] Dept: [phone] Dept AMB ROOMING INTAKE FLOWSHEET DATA Pain Pain Level: 6 Pain Location: Toe Description: Burning Duration Amount of Time: 3 Duration Units: Weeks Frequency: Continuous Intervention/Comfort measure: Reposition, Relaxation, Medication Patient presents with: Right Foot - New, Pain, Fracture, Swelling Shanti Lozano LPN \ documented in this encounter [facility] 01-29-2023 Note HNO ID: [id number] Author: Mars Russo APRN.ASSOCIATE MEDICAL DIRECTOR Service: ? Author Type: Nurse Practitioner Type: [...] digit. Dictated by : MD Mars MUSTAFA APRN.ASSOCIATE MEDICAL DIRECTOR [facility] 01-29-2023 Note HNO ID: [id number] Author: Sherice Ramos RT(R) Service: Radiology Author [...] RT Jesus(R) January 29, 2023 12:34 PM [facility] 01-29-2023 Instructions Mars Russo APRN.ASSOCIATE MEDICAL DIRECTOR - 01/29/2023 1:12 PM EDT ASSESSMENT/PLAN: 1. Closed nondisplaced fracture of proximal phalanx of lesser toe of right foot, initial encounter - ICD9: 826.0, ICD10: S92.514A (primary diagnosis) Post op shoe provided Pain relief/otc Will schedule follow up with podiatry Follow up for worsening symptoms. - CONSULT TO PODIATRY documented in this encounter [facility] 01-29-2023 History of Presen t illness Narrative [...] digit. Dictated by : MD Mars MUSTAFA APRN.ASSOCIATE MEDICAL DIRECTOR documented in this encounter [facility] 12-23-2022 Note HNO ID: [id number] Author: Mars Russo APRN.JARED Service: ? Author [...] AZITHROMYCIN 250 MG TABLET Mars Russo APRN.JARED [facility] 12-23-2022 History of Presen t illness Narrative [...] Mars Russo APRN.JARED documented in this encounter [facility] 09-26-2022 Miscellaneous Notes Pt was notified of the results. Pt verbalized understanding. Homa Bhat MA Negative for COVID and flu please notify thank you documented in this encounter [facility] 09-26-2022 Note HNO ID: [id number] Author: RT Ange(R) Service: ? Author Type: [...] RT Ange(R) September 26, 2022 9:25 AM [facility] 09-26-2022 Note HNO ID: [id number] Author: Everton Mancini APRN.JARED Service: ? Author [...] noted on x-rays (more content not included)... [facility] 09-26-2022 Instructions Everton Mancini APRN.[facility] - 09/26/2022 9:04 AM EDT How [...] concerning to you. documented in this encounter [facility] 09-26-2022 History of Presen t illness Narrative [...] of care. This note was generated using [employer] software. It may contain errors in wording, punctuation, or spelling. Everton Mancini APRN.JARED documented in this encounter [facility] 08-15-2022 Note HNO ID: [id number] Author: Mars Russo APRN.JARED Service: ? Author [...] - PREDNISONE 20 MG TABLET Mars Russo APRN.ASSOCIATE MEDICAL DIRECTOR [facility] 08-15-2022 History of Presen t illness Narrative [...] Mars Russo APRN.JARED documented in this encounter [facility] 04-13-2022 Note HNO ID: [id number] Author: Mars Russo APRN.CNP Service: ? Author [...] AZITHROMYCIN 250 MG TABLET Mars Russo APRN.JARED [facility] 04-13-2022 Instructions Mars Russo APRN.CNP - 04/13/2022 [...] go to ER documented in this encounter [facility] 04-13-2022 History of Presen t illness Narrative [...] Mars Russo APRN.JARED documented in this encounter [facility] 03-15-2022 Miscellaneous Notes Patient notified of results [...] days of symptoms. documented in this encounter [facility] 03-14-2022 Influenza virus A and B RNA and SARS-CoV-2 (COVID-19) N gene panel JANA+probe (Resp) COVID 19 RESULT: SARS-CoV-2 (Agent of COVID-19) Detected by RT-PCR or equivalent method. rodrigo [id number]_[employer] ([place])_EUA This test was developed and its performance characteristics determined by [facility]'s [facility] [place]. This test has been authorized by FDA under an Emergency Use Authorization (EUA). This test has been validated in accordance with the FDA's Guidance Document Policy for Diagnostics Testing in Laboratories Certified to Perform High Complexity Testing under CLIA prior to Emergency use Authorization for Coronavirus Disease 2019 during the Public Health Emergency issued on June 12, 2019. Test performed by [facility], [facility] [place], [address] [place] [address]. INFLUENZA A PCR: Negative for Influenza A by RT-PCR INFLUENZA B PCR: Negative for Influenza B by RT-PCR [facility] documented as of this encounter (statuses as of 09/07/2021) [facility] History of Past illness Narrative* Problem Noted Date Resolved Date Abnormality of gait 07/15/2007 07/15/2007 documented as of this encounter (statuses as of 09/14/2021) [facility] History of Past illness Narrative* Problem Noted Date Resolved Date Abnormality of gait 07/15/2007 07/15/2007 documented as of this encounter (statuses as of 03/14/2022) [facility] History of Past illness Narrative* Problem Noted Date Resolved Date Abnormality of gait 07/15/2007 07/15/2007 documented as of this encounter (statuses as of 03/15/2022) [address] History of Past illness Narrative* Problem Noted Date Resolved Date Abnormality of gait 07/15/2007 07/15/2007 documented as of this encounter (statuses as of 04/18/2022) [address] History of Past illness Narrative* Problem Noted Date Resolved Date Abnormality of gait 07/15/2007 07/15/2007 documented as of this encounter (statuses as of 08/16/2022) [address] History of Past illness Narrative* Problem Noted Date Resolved Date Abnormality of gait 07/15/2007 07/15/2007 documented as of this encounter (statuses as of 09/26/2022) [address] History of Past illness Narrative* Problem Noted Date Resolved Date Abnormality of gait 07/15/2007 07/15/2007 documented as of this encounter (statuses as of 09/27/2022) [address] History of Past illness Narrative* Problem Noted Date Diagnosed Date Resolved Date Abnormality of gait 07/15/2007 07/15/19 08 documented as of this encounter (statuses as of 12/23/2022) [address] History of Past illness Narrative* Problem Noted Date Diagnosed Date Resolved Date Abnormality of gait 07/15/2007 07/15/19 08 documented as of this encounter (statuses as of 01/29/2023) [address] History of Past illness Narrative* Problem Noted Date Diagnosed Date Resolved Date Abnormality of gait 07/15/2007 07/15/19 08 documented as of this encounter (statuses as of 02/11/2023) [address] History of Past illness Narrative* Problem Noted Date Diagnosed Date Resolved Date Abnormality of gait 07/15/2007 07/15/19 08 documented as of this encounter (statuses as of 02/26/2023) [facility]- [facility]- [facility] Diagnosis URI, acute- Primary Acute upper respiratory infections of unspecified site [facility] Diagnosis Sinobronchitis- Primary Unspecified sinusitis (chronic) [facility] Diagnosis Pain in salivary gland region- Primary documented in this encounter [facility]* Diagnosis Acute cough- Primary Viral illness Unspecified viral infection, in conditions classified elsewhere and of unspecified site Suspected COVID-19 virus infection documented in this encounter [facility] note* Diagnosis Lower resp. tract infection- Primary Other diseases of respiratory system, not elsewhere classified documented in this encounter [facility] note* Diagnosis Closed nondisplaced fracture of proximal phalanx of lesser toe of right foot, initial encounter- Primary Toe injury, right, initial encounter documented in this encounter [facility] note* Diagnosis Closed nondisplaced fracture of proximal phalanx of lesser toe of right foot, initial encounter documented in this encounter [facility] note* Diagnosis Closed nondisplaced fracture of proximal phalanx of lesser toe of right foot, initial encounter documented in this encounter [facility] for referral (narrative)* Diagnostic Procedure Only (Routine) - Pending Review Specialty Diagnoses / Procedures Referred By Quentin guerrero Referred To Contact XR IMAGING Diagnoses Closed nondisplaced fracture of proximal phalanx of lesser toe of right foot, initial encounter Procedures XR TOE AP/LAT/OBL RIGHT RADEX TOE MINIMUM 2 VIEWS Albert Hendricks [address] [place] [address] [id number] [id number] Referral ID Status Reason Start Date Expiration Date Visits Requested Visits Authorized [id number] Pending Review Auto-Generat ed Referral 3 03/12/2024 1 1 [facility] for visit Narrative* Diagnostic Procedure Only (Routine) - Closed Specialty Diagnoses / Procedures Referred By Contac t Referred To Contact XR IMAGING Diagnoses Closed nondisplaced fracture of proximal phalanx of lesser toe of right foot, initial encounter Procedures XR TOE AP/LAT/OBL RIGHT RADEX TOE MINIMUM 2 VIEWS Albert Hendricks [address] [place] [address] [place] [id number] Referral ID Status Reason Start Date Expiration Date V isits Requested Visits Authorized [id number] Closed Auto-Generate d Referral 02/11/2023 03/12/2024 1 1 [facility] Health Concerns Infection Onset Date Last Indicated [...] initial encounter Procedures CONSULT TO PODIATRY OFFICE/OUTPATIENT [facility] MDM 60-74 MINUTES Mars Russo APRN.ASSOCIATE MEDICAL DIRECTOR [address] [place] [address] Referral ID Status Reason Start Date Expiration Date Visits Requested Visits Authorized [id number] Authorized PCP Requested Referral 3 01/29/2024 1 1 Specialty Diagnoses / Procedures Referred By Quentin guerrero Referred To Contact XR IMAGING Diagnoses Toe injury, right, initial encounter Procedures XR TOE AP/LAT/OBL RIGHT RADEX TOE MINIMUM 2 VIEWS Mars Russo APRN.ASSOCIATE MEDICAL DIRECTOR [address] [place] [address] [place] [id number] Referral ID Status Reason Start Date Expiration Date V isits Requested Visits Authorized [id number] Closed Auto-Generate d Referral 01/29/2023 02/28/2024 1 [...] or prosecute any alcohol or drug abuse patient.[facility] the event this information is protected by the Federal Confidentiality of Alcohol and Drug Abuse Patient Records regulations: The Federal rules restrict any use of the information to criminally investigate or prosecute any alcohol or drug abuse patient.[facility] the event this information is protected by the Federal Confidentiality of Alcohol and Drug Abuse Patient Records regulations: The Federal rules restrict any use of the information to criminally investigate or prosecute any alcohol or drug abuse patient.[facility] the event this information is protected by the Federal Confidentiality of Alcohol and Drug Abuse Patient Records regulations: The Federal rules restrict any use of the information to criminally investigate or prosecute any alcohol or drug abuse patient.[facility] the event this information is protected by the Federal Confidentiality of Alcohol and Drug Abuse Patient Records regulations: The Federal rules restrict any use of the information to criminally investigate or prosecute any alcohol or drug abuse patient.[facility] the event this information is protected by the Federal Confidentiality of Alcohol and Drug Abuse Patient Records regulations: The Federal rules restrict any use of the information to criminally investigate or prosecute any alcohol or drug abuse patient.[facility] the event this information is protected by the Federal Confidentiality of Alcohol and Drug Abuse Patient Records regulations: The Federal rules restrict any use of the information to criminally investigate or prosecute any alcohol or drug abuse patient.[facility] the event this information is protected by the Federal Confidentiality of Alcohol and Drug Abuse Patient Records regulations: The Federal rules restrict any use of the information to criminally investigate or prosecute any alcohol or drug abuse patient.[facility] the event this information is protected by the Federal Confidentiality of Alcohol and Drug Abuse Patient Records regulations: The Federal rules restrict any use of the information to criminally investigate or prosecute any alcohol or drug abuse patient.[facility] the event this information is protected by the Federal Confidentiality of Alcohol and Drug Abuse Patient Records regulations: The Federal rules restrict any use of the information to criminally investigate or prosecute any alcohol or drug abuse patient.[facility] the event this information is protected by the Federal Confidentiality of Alcohol and Drug Abuse Patient Records regulations: The Federal rules restrict any use of the information to criminally investigate or prosecute any alcohol or drug abuse patient.[facility] System[facility] the event this information is protected by the Federal Confidentiality of Alcohol and Drug Abuse Patient Records regulations: The Federal rules restrict any use of the information to criminally investigate or prosecute any alcohol or drug abuse patient.[facility] Reason for Visit (unrecogniz ed section and [...] initial encounter Procedures CONSULT TO PODIATRY OFFICE/OUTPATIENT [facility] 60-74 MINUTES Mars Russo APRN.ASSOCIATE MEDICAL DIRECTOR [address] [place] [address] Referral ID Status Reason Start Date Expiration Date V isits Requested Visits Authorized [id number] Closed PCP Requested Referral 01/29/2023 01/29/2024 1 1 Care Teams (unrecognized sec tion and content) Senior Dot Net Developer Relationship Specialty Start Date End Date Eric Lozano MD [address] [place] [address] [phone] PCP - General Family Practice 12/22/20 Senior Dot Net Developer Relationship Specialty Start Date End Date Eric Lozano MD [address] [place] [id number] PCP - General Family Medicine 12/22/20 Senior Dot Net Developer Relationship Specialty Start Date End Date Eric Lozano MD [address] [place] [address] [id number] PCP - General Family Medicine 12/22/20 Senior Dot Net Developer Relationship Specialty Start Date End Date Eric Lozano MD [address] [place] [address] [id number] PCP - General Family Medicine 12/22/20 Senior Dot Net Developer Relationship Specialty Start Date End Date Eric Lozano MD [address] [place] [address] [id number] PCP - General Family Medicine 12/22/20 Senior Dot Net Developer Relationship Specialty Start Date End Date Eric Lozano MD [address] [facility] [place] [address] PCP - General Family Medicine 12/22/20 Senior Dot Net Developer Relationship Specialty Start Date End Date Eric Lozano MD [address] [place] [address] PCP - General Family Medicine 12/22/20 Senior Dot Net Developer Relationship Specialty Start Date End Date Eric Lozano MD [address] [place] [address] PCP - General Family Medicine 12/22/20 Senior Dot Net Developer Relationship Specialty Start Date End Date Eric Lozano MD [address] [place] [address] PCP - General Family Medicine 12/22/20 Senior Dot Net Developer Relationship Specialty Start Date End Date Eric Lozano MD [address] [facility] [place] [address] PCP - General Family Medicine 12/22/20 Senior Dot Net Developer Relationship Specialty Start Date End Date Eric Lozano MD [address] [facility] [place] [address] PCP - General Family Medicine 12/22/20 INFORMATION [...] BE BASED ON THE PRIMARY CLINICAL RECORDS. [facility] [employer] [facility]. provides no warranty or guarantee of the accuracy or completeness of information in this document.
== END | disposition home or self-care (01) ==
LOC: CT 11:33
PROVIDERS: PCP Family Medicine; Referring Provider Physician Assistant; Visit Provider Physician Assistant
DX: S82.125A Nondisplaced fracture of lateral condyle of left tibia, initial encounter for closed fracture (principal); S82.842A Displaced bimalleolar fracture of left lower leg, initial encounter for closed fracture
CPT/HCPCS: 73700

== ENCOUNTER 2023-07-28 11:36 | Inpatient (IN) | payer MEDICARE, OTHER, SELFPAY ==
[2023-07-28] VITALS (11 sets, daily range): BP systolic 107–126; BP diastolic 65–96; PULSE 69–113; RESP 16–24; TEMP 36–37.5; O2SAT 95–98; BMI 34.3; BMI 31.7
--- NOTE | 2023-07-28 11:54 | CT_ITS ---
STUDY: CTA CHEST REASON FOR EXAM: Female, 73 years old. Pulmonary embolus RADIATION DOSAGE (If Supplied By Facility): CTDIvol = ( 12.43 ) mGy, DLP = ( 467.45 ) mGycm TECHNIQUE: The examination was performed with the intravenous administration of IV 100mL Isovue-370. Post-processing of the angiographic images was performed, with multiplanar reformation and 3D reconstruction. Individualized dose optimization techniques were used for this CT. COMPARISON: None. FINDINGS: Multiple intraluminal filling defects seen in the distal portions of the left and right main pulmonary arteries as well as multiple branches involving the intermediate pulmonary arteries and smaller vessels in both lower lobes. This is in keeping with multiple pulmonary emboli. There is atherosclerotic calcification of the aortic arch with tortuosity. There is no demonstrated aortic dissection. Mild coronary artery calcification. Normal mediastinum. Normal hilar regions. Normal visualized trachea and bronchi. Stable 5.1 mm noncalcified nodule in the right lung apex. Hyperinflation. Mild degree of emphysematous changes. Normal pleura. Normal chest wall structures. There are degenerative changes of thoracic spine. Gallstones. Sludge is seen within the gallbladder lumen. Atrophy of the pancreas. Small hiatal hernia. CT/CTA Chest W/WO Contrast IMPRESSION: Diffuse bilateral emboli with thrombus in the distal portion of both the right and left main pulmonary arteries. Stable 5.1 mm well-defined nodule in the lateral right lung apex. Gallstone Electronically Signed: Craig Lindo MD at 13:15 EDT ,
--- NOTE | 2023-07-28 11:59 | ED.VIS.DYS ---
HPI History of Present Illness Chief Complaint: Shortness of Breath Informant: patient Onset/Context/Timing Onset: Yesterday Context: gradual Timing: Continuous Quality: Positive for Dyspnea on exertion Worsened by: Exertion Relieved by: - (Laying with a fan blowing on her) Associated Symptoms cough and sweats; Negative for rhinorrhea, post nasal drip, ear pain, fever, sore throat, chills, clear sputum, white sputum, yellow sputum or green sputum Chest Pain: Positive for Tightness Narrative Narrative: Patient presents with shortness of breath that has been getting worse since yesterday. Patient states it is gradually getting worse. Patient states it is constant. Patient states it is worse with any exertion. Patient states it is better when she is able to lay with a fan blowing on her. Patient admits to a mild cough. Patient admits to some tightness in her chest. Patient states it is over the substernal area. Patient states she did break out into a sweat. Patient also admits to some nausea and vomiting. Patient recently had a fracture of her left ankle. Patient did not have surgery for this but has been immobilized from this. PE Risk Factors: Positive for Recent immobilization; Negative for Cancer, Prior DVT or PE, Recent surgery or Recent travel [facility] Medical History Cholelithiasis with chronic cholecystitis COPD (chronic obstructive pulmonary disease) GERD (gastroesophageal reflux disease) Iron deficiency anemia Obesity (BMI 30-39.9) Paroxysmal supraventricular tachycardia Transient ischemic attack Home Medications hydroxychloroquine 200 mg tablet 200 mg PO BIDCM 09/18/13 [History Last Taken 09/17/13 20:00] pantoprazole 40 mg tablet,delayed release 40 mg PO DAILY 02/26/19 [History Last Taken 07/28/23] famotidine 20 mg tablet 20 mg PO BID 11/08/21 [History Last Taken 07/28/23] blood pressure monitor #1 ea 11/08/22 [Rx Last Taken Unknown] leucovorin calcium 15 mg tablet 15 mg PO QWEEK 11/08/22 [History Last Taken 07/24/23] prednisone 2.5 mg tablet 2.5 mg PO DAILY 11/08/22 [History Last Taken 07/28/23] metoprolol tartrate 50 mg tablet See Rx Instructions .Route .COMPLEX #180 tabs 04/09/23 [Rx Last Taken 07/28/23] methotrexate sodium 25 mg/mL injection solution 18.75 mg subcut QWEEK 07/28/23 [History Last Taken 07/23/23] sulfasalazine 500 mg tablet,delayed release 1,000 mg PO BID 07/28/23 [History Last Taken 07/28/23] tramadol 50 mg tablet 50 - 100 mg PO Q6H PRN PRN pain 07/28/23 [History Last Taken Unknown] Allergy/AdvReac Type Severity Reaction Status Date / Time doxycycline AdvReac PT UNSURE Verified 07/28/23 11:36 OF REACTION Family History Mother Breast cancer Surgical History H/O tubal ligation History of breast lump removal History of foot surgery History of knee surgery History of radiofrequency ablation procedure for cardiac arrhythmia (03/2003) Social History Smoking Status: Former smoker ROS ROS ED Constitutional Constitutional ED: Denies chills or fever(s) Eyes Eyes: Denies blurry vision or change in vision ENT ENT ED: Denies rhinorrhea or sore throat Cardiovascular Cardiovascular: Reports chest pain; Denies palpitations Respiratory/Chest Respiratory/Chest: Reports cough and dyspnea Gastrointestinal Gastrointestinal: Reports nausea and vomiting Genitourinary Genitourinary ED: Denies dysuria or hematuria Musculoskeletal Musculoskeletal: Denies back pain or neck pain Integumentary Denies abscess or rash Neurologic Neurologic: Denies headache(s) or weakness Allergic/Immunologic Allergic/Immunologic ED: Denies mouth swelling or urticaria EXAM Physical Exam Const Vital Signs: 07/28/23 11:37 07/28/23 11:55 07/28/23 12:36 Temperature 96.8 F L Temperature Source Temporal Pulse Rate 113 H Respiratory Rate 24 H Respiratory Effort Normal Non-Labored Respiratory Depth Normal Respiratory Pattern Normal Blood Pressure 107/96 H Blood Pressure Mean 99 Pulse Ox 97 95 Oxygen Delivery Method Room Air Room Air Room Air 07/28/23 13:36 Temperature 97.3 F L Temperature Source Oral Pulse Rate 77 Respiratory Rate 23 H Respiratory Effort Respiratory Depth Respiratory Pattern Blood Pressure 109/65 Blood Pressure Mean 79 Pulse Ox 98 Oxygen Delivery Method Room Air Positive well nourished, well developed and obese General Appearance ED: well developed and NAD Nutritional Appearance: obese HEENT Reports moist mucous membranes Neck supple and no JVD Resp normal respiratory effort and clear to auscultation bilaterally Cardio regular rhythm Rate: tachycardic GI non-tender and non-distended Palpation: soft Extremity Extremity Narrative: There is a long leg brace in place over the left lower extremity will Neuro oriented x3, CN's II-XII intact bilaterally and no sensory deficits noted Kelsey Coma Scale: document GCS findings Spontaneous Obeys Commands Oriented 15 Sensorium / Orientation: alert Motor Exam: strength 5/5 throughout Psych mental status grossly normal MDM MDM MDM Narrative Medical decision making narrative: Differential diagnosis includes pulmonary embolism, cardiac dysrhythmia, cardiac ischemia, electrolyte abnormality, pneumonia, pneumothorax, and viral illness. CTA of the chest will be obtained to assess for pulmonary embolism and pneumonia. CBC will be obtained to assess for leukocytosis and anemia. Basic metabolic profile will be obtained to assess for electrolyte abnormality and renal function. High-sensitivity troponin will be obtained to assess for cardiac ischemia. Lab Data Attestation: I reviewed the patient's lab results. Lab results narrative: CBC was reviewed and was within normal limits. Basic metabolic profile was reviewed. Creatinine was slightly elevated at 1.03. The remainder is within normal limits. High-sensitivity troponin was reviewed and was elevated at 1595. Labs: Laboratory Results - last 24 hr 07/28/23 12:10 WBC 9.6 RBC 4.40 Hgb 12.3 Hct 39.0 MCV 88.6 MCH 28.0 MCHC 31.5 L RDW Std Deviation 47.7 H RDW Coeff of Samson 14.9 H Plt Count 185 MPV 10.3 Immature Gran % (Auto) 0.600 Neut % (Auto) 77.4 H Lymph % (Auto) 13.0 L [place] % (Auto) 8.3 Eos % (Auto) 0.1 Baso % (Auto) 0.6 Absolute Neuts (auto) 7.4 Absolute Lymphs (auto) 1.24 Nucleated RBC % 0 Sodium 137 Potassium 4.0 Chloride 102 Carbon Dioxide 25.0 Anion Gap 10 BUN 13 Creatinine 1.03 H Estim Creat Clear Calc 62.75 Est GFR (MDRD) Af Amer 68 Est GFR (MDRD) Non-Af 56 L BUN/Creatinine Ratio 12.6 Glucose 140 H Calcium 9.4 Troponin I High Sens 1595 H* Radiography Diagnostic Testing: Clinical Impression(s) from Imaging Studies Chest CTA 07/28/23 11:54 IMPRESSION: Diffuse bilateral emboli with thrombus in the distal portion of both the right and left main pulmonary arteries. Stable 5.1 mm well-defined nodule in the lateral right lung apex. Gallstone Electronically Signed: Craig Lindo MD at 13:15 EDT , CTA of the chest was obtained. There are bilateral pulmonary emboli noted. There is no evidence of right heart strain. This was interpreted by the radiologist and was also independently reviewed by myself. EKG Initial EKG: Attestation: I personally reviewed and interpreted this EKG as follows: Interpretation: Sinus Rhythm (79) and Non-Specific ST Changes Comments: EKG was obtained. On my independent interpretation, it showed a normal sinus rhythm with a rate of 79. [place] interval, QRS interval, and QTc intervals were all normal. [place] was normal. There are nonspecific ST-T wave changes. Prior EKG tracings: available for review Prior: Unchanged (06/15/2019) Management Discussion w/another healthcare provider: Hospitalist Treatment and Re-Evaluation :: Patient was given aspirin here. Patient was advised of her findings. Patient was advised of the need for hospitalization. Case was discussed with the hospitalist. Patient was started on heparin drip. Patient will be admitted to the hospital. Patient understood and was agreeable with the plan. All questions were answered. Case was also discussed with Dr. Byron Landeros who is covering for Dr. Mary. He stated that there is no need to consult orthopedics while the patient is in the hospital. He will have the patient follow-up as an outpatient with Dr. Mary. Discharge Plan Dx/Rx/DC Orders Clinical Impression: Bilateral pulmonary embolism, Elevated troponin, Obesity (BMI 30-39.9) Disposition Disposition: Acute Care Hospital [facility]
--- NOTE | 2023-07-28 12:00 | EKG12_ITS ---
Test Reason : SOB Blood Pressure : / mmHG Vent. Rate : 079 BPM Atrial Rate : 079 BPM P-R Int : 146 ms QRS Dur : 086 ms QT Int : 396 ms P-R-T Axes : 027 074 062 degrees QTc Int : 454 ms Normal sinus rhythm Nonspecific ST abnormality Abnormal ECG Confirmed by COSME BERRIOS, KAMILLE ([id number]), newspaper editor KAIDEN CALIXTO ([id number]) on 07/29/2023 8:22:30 AM Referred By: Confirmed By:KAMILLE AGUIAR MD
[2023-07-28] MEDS: Aspirin 81 MG TAB.CHEW 324 MG PO (12:04)
[2023-07-28] MEDS: 0.9% Normal Saline (1000mL) 1,000 ML 1000 ML IV (12:10)
[2023-07-28 12:19] LABS: Absolute Lymphocyte Count 1.24 X10^3/uL (0.83-4.51); Absolute Neutrophil Count 7.4 X10^3/uL (2.0-7.7); Basophil# 0.06 X10^3/uL; Basophil% 0.6 % (0-1); Eosinophil# 0.01 X10^3/uL; Eosinophils% 0.1 % (0-5); Hemoglobin 12.3 g/dL (12.0-15.0); Lymphocyte # 1.24 X10^3/ul (0.83-4.51); Mean Corp Hgb Conc 31.5 g/dL (32-36); Mean Corpuscular Volume 88.6 fL (81-99); Mean Platelet Vol. 10.3 fl (6.2-12.0); Monocyte# 0.79 X10^3/uL; Monocyte% 8.3 % (0-10); NRBC Flagged by Analyzer 0 % (0-5); Neutrophil # 7.39 X10^3/uL (2.7-7.7); Neutrophil % 77.4 % (47-70); Platelet Count 185 K/mm3 (150-450); RBC Distribution Width CV 14.9 % (11.6-14.6); RBC Distribution Width SD 47.7 fl (35.1-43.9); White Blood Count 9.6 K/mm3 (4.4-11.0)
[2023-07-28 12:41] LABS: Anion Gap 10 (5-15); BUN 13 mg/dL (7-18); BUN/Creat Ratio 12.6 RATIO (10-20); Calcium,Total 9.4 mg/dL (8.5-10.1); Chloride 102 mmol/L (98-107); Creatinine, Serum 1.03 mg/dL (0.55-1.02); EST Glomerular Filtration Rate 56 mL/min (>60); Est Glom Filt Rate - Afr Amer 68 mL/min (>60); Estimated Creatinine Clearance 62.75 ml/min; Glucose 140 mg/dL (74-106); Sodium Level 137 mmol/L (136-145); Troponin-I HS 1595 pg/mL (3.0-54.0)
--- NOTE | 2023-07-28 13:43 | PCM.HP.STD ---
HPI - General General Date of Admission: 07/28/23 Date of Service: 07/28/23 Chief Complaint: Dyspnea, chest tightness. HPI Narrative The patient is a 73 y/o F w/ PMHx: Chart reported Hx Schizophrenia/Anxiety and Depression, Rheumatoid arthritis, HTN, COPD, GERD, Chronic anemia/Fe deficiency anemia, Hx TIA, Obesity, PSVT s/p RFA, Former tobacco use who presents to the [facility] ED on 07/28/23 with history of dyspnea, worse with exertion with associated cough and mild diaphoresis improved if she is resting and laying especially with a fan blowing on her which been worsening over the last 48 hours noted to be constant with also concurrent mild chest tightness primarily over the substernal area with nausea and occasional emesis however she does report recent left lower extremity ankle and knee fracture with no specific surgery but she has been immobilized prompting eventual ED evaluation. Workup in the ED included T96.8, heart rate 113, BP 107/96, respiratory rate 24, 97% on room air, CBC with WBC 9.6, human 12.3, platelets 185 without marked shift, BMP with BUN/creatinine 13/1.03, GFR 56, glucose 140, initial troponin 1595, CTPA with diffuse bilateral emboli with thrombus in the distal portion of both the right and left main pulmonary arteries, stable 5.1 mm well-defined nodule in the lateral right lung apex, gallstone present, EKG with sinus rhythm with no acute evidence of ischemia. In the ED patient ministered full-strength aspirin therapy 324 mg p.o. x 1 and normal saline at 1000 mL x 1 and started on heparin drip. [facility] Medical History (Updated 07/28/23 @ 18:[address] Sophia Wang MD) Anxiety and depression COPD (chronic obstructive pulmonary disease) Former smoker GERD (gastroesophageal reflux disease) Iron deficiency anemia Obesity (BMI 30-39.9) Paroxysmal supraventricular tachycardia Pulmonary embolism Rheumatoid arthritis Schizophrenia Transient ischemic attack Home Medications hydroxychloroquine 200 mg tablet 200 mg PO BIDCM 09/18/13 [History Last Taken 09/17/13 20:00] pantoprazole 40 mg tablet,delayed release 40 mg PO DAILY 02/26/19 [History Last Taken 07/28/23] famotidine 20 mg tablet 20 mg PO BID 11/08/21 [History Last Taken 07/28/23] blood pressure monitor #1 ea 11/08/22 [Rx Last Taken Unknown] leucovorin calcium 15 mg tablet 15 mg PO QWEEK counteract the methotrexate 11/08/22 [History Last Taken 07/24/23] prednisone 2.5 mg tablet 2.5 mg PO DAILY 11/08/22 [History Last Taken 07/28/23] metoprolol tartrate 50 mg tablet See Rx Instructions .Route .COMPLEX #180 tabs 04/09/23 [Rx Last Taken 07/28/23] methotrexate sodium 25 mg/mL injection solution 18.75 mg subcut QWEEK arthritis 07/28/23 [History Last Taken 07/23/23] sulfasalazine 500 mg tablet,delayed release 1,000 mg PO BID 07/28/23 [History Last Taken 07/28/23] tramadol 50 mg tablet 50 - 100 mg PO Q6H PRN PRN pain 07/28/23 [History Last Taken Unknown] Allergy/AdvReac Type Severity Reaction Status Date / Time doxycycline AdvReac PT UNSURE Verified 07/28/23 11:36 OF REACTION Family History Mother Breast cancer other (Patient does not know her paternal family history nor her father.) Surgical History H/O tubal ligation History of breast lump removal History of foot surgery History of knee surgery History of radiofrequency ablation procedure for cardiac arrhythmia (03/2003) Social History (Updated 07/28/23 @ 18:[address] Sophia Wang MD) household members: none Smoking Status: Former smoker how long ago did patient quit smoking: Quit 15 yrs prior, smoked 2 ppd since 22 yrs old until quit. alcohol intake: never substance use type: does not use ROS ROS Narrative Admission Review of Systems: CONSTITUTIONAL: No weight loss, fever, chills, + weakness or fatigue. HEENT: Eyes: No visual loss, blurred vision, double vision or yellow sclerae. Ears, Nose, Throat: No hearing loss, sneezing, congestion, runny nose or sore throat. SKIN: No rash or itching, lesions, wounds. CARDIOVASCULAR: + Chest tightness, discomfort primarily pleuritic worse with deep inspiratory effort. No palpitations, edema, orthopnea, syncopal events. RESPIRATORY: + Dyspnea with occasional cough not markedly productive. No wheezing, hemoptysis. GASTROINTESTINAL: + anorexia, nausea, vomiting. No diarrhea, abdominal pain, melena, BRBPR. GENITOURINARY: No dysuria, frequency, urgency or retention. NEUROLOGICAL: No headache, dizziness, syncope, paralysis, ataxia, numbness or tingling in the extremities, focal weakness, change in bowel or bladder control, seizure. MUSCULOSKELETAL: + muscle, back pain, joint pain or stiffness. HEMATOLOGIC: No anemia, bleeding or bruising. LYMPHATICS: No enlarged nodes. No history of splenectomy. PSYCHIATRIC: + Chart reported history of schizophrenia/anxiety and depression. ENDOCRINOLOGIC: No reports of sweating, cold or heat intolerance. No polyuria or polydipsia. ALLERGIES: No history of asthma, hives, eczema or rhinitis. Vital Signs Vital Signs Vital Signs: 07/28/23 11:37 07/28/23 11:55 Temperature 96.8 F L Temperature Source Temporal Pulse Rate 113 H Respiratory Rate 24 H Blood Pressure 107/96 H Blood Pressure Mean 99 Pulse Ox 97 95 Oxygen Delivery Method Room Air Room Air Weight Weight: 226 lb Body Mass Index (BMI) 34.3 Physical Exam Narrative Physical Examination: General: Awake, alert, oriented x 3 and cooperative, seated upright in the ED bed, fatigued otherwise no acute distress. Skin: Normal color, normal turgor, no icterus, no cyanosis. HEENT: AT/NC, EOMI, PERRLA, mildly dry MM, no carotid bruits or JVD noted. Lungs: Mildly diminished, mildly decreased effort with shallow breathing but not severe no evidence of any distress, no rales, ronchi or wheezing. Heart: Improved, regular rate and rhythm; no gallop, rub audible. Abdomen: Soft, obese, NTTP, ND, normal BS, no HSM. Extremities: No cyanosis, no clubbing, status post left lower extremity ankle as well as knee fracture and bracing with swelling evident. Neurological: Patient awake, alert, oriented as noted, cognitive function intact; pupils equally reactive to light and accommodation, cranial nerves II-XII grossly normal, moving all 4 extremities except expected limited left lower extremity movement given brace with recent fall with left knee/tibial plateau and ankle fracture, no focal deficits, strength moderately to severely globally decreased. Psychiatric: Affect appears fatigued otherwise normal, no acute evidence of depressive or anxiety feelings. Results Lab / Micro Data 07/28/23 12:10 07/28/23 12:10 Labs: Laboratory Results - last 24 hr 07/28/23 12:10: WBC 9.6, RBC 4.40, Hgb 12.3, Hct 39.0, MCV 88.6, MCH 28.0, MCHC 31.5 L, RDW Std Deviation 47.7 H, RDW Coeff of Samson 14.9 H, Plt Count 185, MPV 10.3, Immature Gran % (Auto) 0.600, Neut % (Auto) 77.4 H, Lymph % (Auto) 13.0 L, [place] % (Auto) 8.3, Eos % (Auto) 0.1, Baso % (Auto) 0.6, Absolute Neuts (auto) 7.4, Absolute Lymphs (auto) 1.24, Nucleated RBC % 0, Sodium 137, Potassium 4.0, Chloride 102, Carbon Dioxide 25.0, Anion Gap 10, BUN 13, Creatinine 1.03 H, Estim Creat Clear Calc 62.75, Est GFR (MDRD) Af Amer 68, Est GFR (MDRD) Non-Af 56 L, BUN/Creatinine Ratio 12.6, Glucose 140 H, Calcium 9.4, Troponin I High Sens 1595 H* Imaging Radiology Impression Chest CTA 07/28/23 11:54 IMPRESSION: Diffuse bilateral emboli with thrombus in the distal portion of both the right and left main pulmonary arteries. Stable 5.1 mm well-defined nodule in the lateral right lung apex. Gallstone Electronically Signed: Craig Lindo MD at 13:15 EDT , Assessment & Plan Assessment/Plan (1) Bilateral pulmonary embolism: PLAN: Plan The patient is a 73 y/o F w/ PMHx: Chart reported Hx Schizophrenia/Anxiety and Depression, Rheumatoid arthritis, HTN, COPD, GERD, Chronic anemia/Fe deficiency anemia, Hx TIA, Obesity, PSVT s/p RFA, Former tobacco use who presents to the [facility] ED on 07/28/23 with history of dyspnea, worse with exertion with associated cough and mild diaphoresis improved if she is resting and laying especially with a fan blowing on her which been worsening over the last 48 hours noted to be constant with also concurrent mild chest tightness primarily over the substernal area with nausea and occasional emesis however she does report recent left lower extremity ankle and knee fracture with no specific surgery but she has been immobilized prompting eventual ED evaluation. #1. Dyspnea, chest pain secondary to Acute Bilateral Pulmonary Embolism with Elevated Troponin (suspect secondary to Acute BL PE but notably elevated, demand associated): EKG without acute findings, CTPA with diffuse bilateral emboli with thrombus in the distal portion of both the right and left main pulmonary arteries, stable 5.1 mm well-defined nodule in the lateral right lung apex, gallstone present, troponin 1595. Recent significant immobilization with left ankle and knee fracture. Will admit to PCU, maintain on cardiac telemetry. Will obtain ECHO and BNP, continue to cycle cardiac enzymes given significant elevation. Will maintain on aspirin therapy, magnesium level requested, FLP in AM. Will continue therapeutic heparin pending troponin series and if further rises low threshold to involve cardiology to be cautious. If enzymes trend downward, may then consider oral NOAC transition if appropriate. #2. Recent mechanical fall with left lower extremity ankle and knee fracture: History of mechanical fall with unfortunately left ankle and left knee fracture, following with Dr. Mary, will continue nonweightbearing status, continue brace except at night when sleeping and encourage continued follow-up outpatient as previously arranged noted 08/21/2023. Dr. Mary has been updated about patient current presentation. #3. Chronic COPD: Will maintain on oxygen with wean as tolerated to room air if needed, continue ATC budesonide therapy, PRN albuterol, HOB, IS parameters. #4. Hypertension: Continue home regimen including metoprolol, PRN hydralazine. #5. Rheumatoid arthritis: We will continue patient home leucovorin, sulfasalazine, low-dose chronic prednisone as well as hydroxychloroquine home regimen. Patient is also on methotrexate injections. Encourage continued outpatient follow-up with rheumatology as previously arranged. #6. Chronic anemia/iron deficiency anemia: Admission hemoglobin 12.3, MCV 88.6, baseline hemoglobin primarily 10-11, will continue to trend, per current list not on iron supplementation but clarifying. #7. Obesity: Weight loss and lifestyle changes encouraged. #8. History of TIA: Will continue asa, HTN regimen, no on statin, FLP in AM as noted. #9. Former tobacco use: Encourage continued tobacco cessation. #10. GERD: Continue patient on PPI. #11. Chart reported history of schizophrenia/anxiety and depression: Patient is not on any psychiatric medications and reported no psychiatric history during initial assessments, will need to clarify further but very appropriate during evaluation. #12. DVT prophylaxis: Will continue heparin drip as noted. #13. CODE status: Patient HCPOA and living will not in place but she notes if she cannot make medical decisions her daughter Samantha would be her medical decision-maker. Discussed CODE status at length including difference between FULL code, DNR-CCA and DNR-CC status. Following discussions about the differences in these status, requested Full Code status. Advanced Care Planning Face to Face Time: 16 minutes. Charges/Coding Visit Charges Inpatient E&M: 01837 Init Hosp L3 Procedures Hospitalists Procedures: 60726 Advncd Care Plan 30 Min
[2023-07-28] MEDS: Heparin Injection (Vial) 5,000 UNIT/ML VIAL 7500 UNIT IV (14:55)
[2023-07-28] MEDS: HEPARIN/D5w 25,000 UNITS 25,000 UNITS/250 ML IV.SOLN. 14 UNITS CONT INF ×2 (14:55→16:06)
[2023-07-28 15:06] LABS: International Normalized Ratio 1.2; Prothrombin Time (Protime)PT. 14.9 SECONDS (11.7-14.9)
[2023-07-28 15:07] LABS: Partial Thromboplast Time 25.2 Seconds (24.1-36.2)
--- NOTE | 2023-07-28 15:25 | ECHOCS_ITS ---
Reason For Study: Dyspnea/SOB Procedure This was a 2D Doppler, Color Flow transthoracic echocardiogram. The study was technically difficult. Contrast injection was performed. Exam performed portable in patient room. Left Ventricle Normal LV size. D shaped septum in systole and diastole. Left ventricular systolic function is normal. The left ventricular ejection fraction is 55 %. Stage 1 diastolic dysfunction. No regional wall motion abnormalities noted. Right Ventricle Moderately dilated right ventricle. Mild global right ventricular systolic dysfunction. Atria Normal left atrium. Normal right atrium. Mitral Valve There is mild mitral annular calcification. Tricuspid Valve Normal tricuspid valve. Mild (1+) tricuspid valve insufficiency. Pulmonary artery systolic pressure is 44 mmHg. Aortic Valve Trisinus/trileaflet aortic valve. Pulmonic Valve The pulmonic valve is not well visualized. Great Vessels Normal aortic root. The pulmonary artery is normal size. Inferior vena cava collapse with respiration. Pericardium/Pleural No pericardial effusion. Medication Diluted definity 2ml given slow IV push to enhance endocardial definition. MMode/2D Measurements & Calculations LVIDd: 3.8 cm IVSd: 0.95 cm Ao root diam: 3.4 cm LVIDs: 2.5 cm LVPWd: 0.81 cm LA dimension: 3.3 cm RVDd: 4.5 cm FS: 32.7 % LAV(MOD-bp): 55.2 ml LA A4 area: 20.2 cm2 RA A4 area: 21.9 cm2 LAV(MOD-bp) Indexed: 25.6 ml/m2 LAV(MOD-sp2): 51.9 ml LAV(MOD-sp4): 55.3 ml TAPSE: 1.4 cm Time Measurements MV dec time: 0.19 sec Doppler Measurements & Calculations MV E max ion: 61.5 cm/sec Lat Peak E' Ion: 10.2 cm/sec Med Peak E' Ion: 6.1 cm/sec MV A max ion: 84.3 cm/sec E/E' lat: 6.0 E/E' med: 10.2 MV E/A: 0.73 MV V2 max: 100.1 cm/sec MV P1/2t max ion: 71.7 cm/sec Ao V2 max: 136.4 cm/sec MV max P.0 mmHg MV P1/2t: 66.9 msec Ao max P.5 mmHg MV V2 mean: 47.5 cm/sec MV dec slope: 314.0 cm/sec2 MV mean P.1 mmHg MVA(P1/2t): 3.3 cm2 MV V2 VTI: 20.1 cm LV V1 max: 119.8 cm/sec PA V2 max: 63.1 cm/sec TR max ion: 311.0 cm/sec LV V1 max P.7 mmHg TR max P.7 mmHg ECHO/Echo Complete W/ Contrast Interpretation Summary Normal LV size. Left ventricular systolic function is normal. D shaped septum in systole and diastole. The left ventricular ejection fraction is 55 %. Moderately dilated right ventricle. Stage 1 diastolic dysfunction. Pulmonary artery systolic pressure is 44 mmHg. Contrast injection was performed. Ordering Physician: oSphia Wang Referring Physician: Jd Lozano MD Performed By: Deon Rea RCS
[2023-07-28 15:35] LABS: Magnesium 2.1 mg/dL (1.6-2.6)
[2023-07-28 16:02] LABS: BNP,B-Type NATRIURETIC PEPTIDE 662.9 pg/mL (0-100)
[2023-07-28] MEDS: Hydroxychloroquine 200 MG Tablet PO (16:47)
[2023-07-28 17:09] LABS: Troponin-I HS 1480 pg/mL (3.0-54.0)
[2023-07-28 18:49] LABS: Troponin-I HS 1170 pg/mL (3.0-54.0)
[2023-07-28] MEDS: Budesonide Respules 0.5 MG/2 ML AMPUL.NEB. INHALATION (19:59)
[2023-07-28] MEDS: Metoprolol Tartrate 50 MG Tablet PO (20:41)
[2023-07-28] MEDS: sulfaSALAzine 500 MG Tablet 1000 MG PO (20:42)
[2023-07-28] MEDS: Famotidine 20 MG Tablet PO (20:42)
[2023-07-28] MEDS: Acetaminophen 325 MG Tablet 650 MG PO (23:06)
[2023-07-29] VITALS (9 sets, daily range): BP systolic 113–128; BP diastolic 61–77; PULSE 73–92; RESP 16–18; TEMP 36.6–36.8; O2SAT 94–99; BMI 32.6
[2023-07-29 06:31] LABS: Absolute Lymphocyte Count 1.34 X10^3/uL (0.83-4.51); Absolute Neutrophil Count 6.9 X10^3/uL (2.0-7.7); Basophil# 0.04 X10^3/uL; Basophil% 0.4 % (0-1); Eosinophil# 0.02 X10^3/uL; Eosinophils% 0.2 % (0-5); Hematocrit 37.6 % (37-47); Hemoglobin 11.3 g/dL (12.0-15.0); Lymphocyte # 1.34 X10^3/ul (0.83-4.51); Lymphocyte % 14.5 % (19-41); Mean Corp Hgb Conc 30.1 g/dL (32-36); Mean Corpuscular Volume 89.7 fL (81-99); Monocyte# 0.86 X10^3/uL; Monocyte% 9.3 % (0-10); NRBC Flagged by Analyzer 0 % (0-5); Neutrophil # 6.88 X10^3/uL (2.7-7.7); Neutrophil % 74.8 % (47-70); Platelet Count 183 K/mm3 (150-450); RBC Distribution Width SD 48.6 fl (35.1-43.9); Red Blood Count 4.19 M/mm3 (4.2-5.4); White Blood Count 9.2 K/mm3 (4.4-11.0)
[2023-07-29 07:00] LABS: ALB/GLOB Ratio 0.7 RATIO (0.9-2.4); AST(SGOT) 19 U/L (15-37); Alanine Aminotransfer ALT/SGPT 10 U/L (13-56); Albumin, Serum 2.8 g/dL (3.2-5.0); Alkaline Phosphatase 55 U/L (45-117); Anion Gap 8 (5-15); BUN 13 mg/dL (7-18); BUN/Creat Ratio 14.5 RATIO (10-20); Calcium,Total 8.8 mg/dL (8.5-10.1); Chloride 105 mmol/L (98-107); Cholesterol 161 mg/dL (200); EST Glomerular Filtration Rate 66 mL/min (>60); Est Glom Filt Rate - Afr Amer 80 mL/min (>60); Globulin 4.3 g/dL (2.2-4.2); Glucose 106 mg/dL (74-106); High Density Lipoprotein 57 mg/dL; Potassium 3.6 mmol/L (3.5-5.1); Protein, Total 7.1 g/dL (6.4-8.2); Sodium Level 136 mmol/L (136-145); Triglycerides 94 mg/dL; Very Low Density Lipoprotein 19 mg/dL (5-40)
[2023-07-29 07:07] LABS: Partial Thromboplast Time 48.7 Seconds (24.1-36.2)
[2023-07-29] MEDS: Budesonide Respules 0.5 MG/2 ML AMPUL.NEB. INHALATION ×2 (07:07→19:14)
[2023-07-29] MEDS: Heparin Injection (Vial) 5,000 UNIT/ML VIAL IV ×3 (07:37→22:20)
[2023-07-29] MEDS: 0.9% Saline Lock 10 ML Syringe IV ×2 (07:39→22:21)
--- NOTE | 2023-07-29 07:53 | VDLE_ITS ---
Reason For Study: Pulmonary Embolism RIGHT LEFT GSV is normal. GSV is normal. CFV is compressible, spontaneous, phasic, CFV is compressible, spontaneous, competent, competent and demonstrates normal and demonstrates pulsatile venous flow. augmentation. Acute deep vein thrombosis is noted in the FV is compressible, spontaneous, phasic, FV. It is dilated and NONCOMPRESSIBLE. competent and demonstrates normal Acute deep vein thrombosis is noted in the augmentation. POP V. It is dilated and NONCOMPRESSIBLE. POP V is compressible, spontaneous, phasic, Acute deep vein thrombosis is noted in the competent and demonstrates normal Gastrocnemius V. It is dilated and augmentation. NONCOMPRESSIBLE. T/P Trunk is compressible. Acute deep vein thrombosis is noted in the PTV is compressible. T/P Trunk. It is dilated and NONCOMPRESSIBLE. RT PerV is compressible. Acute deep vein thrombosis is noted in the Procedure PTV. It is dilated and NONCOMPRESSIBLE. This is a venous duplex using B-mode, color Acute deep vein thrombosis is noted in the flow and spectral Doppler. Per V. It is dilated and NONCOMPRESSIBLE. Exam performed portable in patient room. The exam was diagnostic. A preliminary report was called and/or faxed to [facility]. VL/Venous Duplex US - Wing Extrem Interpretation Summary Acute deep vein thrombosis is noted in the left femoral vein, popliteal vein, g astrocnemius vein, tibioperoneal trunk vein, posterior tibial vein, peroneal vein. Deep veins of the right lower extremity are patent and compressible segmentally . There is no evidence of right lower extremity deep vein thrombosis. The bilateral great sap henous veins appear patent and compressible segmentally. Ordering Physician: Dmitry Griggs Referring Physician: Jd Lozano MD Performed By: Garrick Lobo RVT
[2023-07-29] MEDS: predniSONE 5 MG Tablet 2.5 MG PO (09:41)
[2023-07-29] MEDS: Pantoprazole Sodium 40 MG Tablet PO (09:41)
[2023-07-29] MEDS: Metoprolol Tartrate 50 MG Tablet PO ×2 (09:41→20:44)
[2023-07-29] MEDS: Aspirin 81 MG TAB.CHEW PO (09:41)
[2023-07-29] MEDS: Famotidine 20 MG Tablet PO ×2 (09:41→20:44)
[2023-07-29] MEDS: sulfaSALAzine 500 MG Tablet 1000 MG PO ×2 (09:42→20:43)
[2023-07-29] MEDS: Acetaminophen 325 MG Tablet 650 MG PO ×3 (09:48→20:43)
[2023-07-29] MEDS: Ensure Plus High Protein 120 ML LIQUID PO (09:55)
--- NOTE | 2023-07-29 11:30 | CASEMGMT ---
RN?CM?NURSING TECH?CM?to room to meet with patient for initial transition planning/care coordination?assessment.?RN?CM?introduced self and role at [facility].? Pt voices understanding and consents to?assessment?at this time.? Pt resting in bed in no distress at this time.?Sister, Mara, @ bedside and pt agreeable to her being present during assessment. Pt is A/O at this time and answers all questions appropriately.?? Care providers, pharmacy, and demographics verified/updated at this time. PCP: Dr Lozano Specialists: Dr Taveras-cardiology, Dr Velasco- for RA, Dr Mary-ortho Preferred Pharmacy: [facility], [place] Insurance: [employer] Prescription Benefit:?yes. Pt to discharge home on an anti-coag and made aware she will be provided w/30-day free trial card @ discharge. LNOK: DaughterSamantha. Son, Mazin Living Arrangements: Lives w/grandson, his sig other (Paulina), and their 2 children in one-story home w/basement and ramp entrance. Pt is indep w/ADL's. Kanchan and Paulina do most of the home mgnt tasks since pt had recent injury/NWB to LLE. Transportation:?Family DME: ?States has the following DME:?crutches (does not use), rollator, LLE immobilizer, W/C available but does not use. ? Pt states no need for further DME at this time.? HHC/SNF: No hx of either. Pt states she has been going to [facility] for OP therapy and wishes to resume this @ discharge. Pt wishes to return home and states has no concerns with going home at time of discharge.??CM?to follow for home oxygen needs and any further discharge planning/needs.? Pt voices no further concerns/needs at this time.? Advised pt to ask for?CM?if any further questions/concerns/needs arise.? Voices understanding. PLAN:??Home. Pt to be provided w/30-day free trial card @ discharge for anti-coag. Osvaldo ALMAGUERN?RN?CM
[2023-07-29] MEDS: HEPARIN/D5w 25,000 UNITS 25,000 UNITS/250 ML IV.SOLN. 12 UNITS CONT INF (12:07)
[2023-07-29] MEDS: Hydroxychloroquine 200 MG Tablet PO ×2 (12:08→18:07)
--- NOTE | 2023-07-29 12:59 | CHAPLAIN ---
Type of Pastoral Visit _x__ Initial Visit ___ Follow-up Visit ___ On-call Visit ___ General Patient Visit ___ Spiritual Assessment ___ Family Conference ___ Bereavement ___ Rapid Response ___ Code Blue ___ Other (describe below) Pastoral Care Referral From _x__ Patient ___ Family ___ Nurse ___ Physician ___ Collar Stay Fuser Tender ___ Oil Distributor ___ Other (describe below) Sacrament/Intervention ___ Active listening ___ Anointing ___ Scientologist ___ Bereavement ___ Communion ___ [place] exploration ___ ___ Life review ___ Prayer ___ Reconciliation ___ Sacrament of Sick _x__ Supportive presence ___ Wedding ___ Other (describe below) Pastoral Comments patient reports that she is doing fine and just waiting for test results; pt expects to be discharged yet today; a family member or friend is with pt in the room; pt declines need of support
--- NOTE | 2023-07-29 13:22 | PN.HOSP_ITS ---
Reason for Visit Reason for Visit: Diagnoses Other pulmonary embolism without acute cor pulmonale (07/28/23) Objective Data Objective Data Vital Signs: Vital Signs Temp Pulse Resp BP Pulse Ox O2 Del Method 98.2 F 92 18 113/77 94 Room Air 07/29/23 09:32 07/29/23 09:41 07/29/23 09:32 07/29/23 09:41 07/29/23 09:32 07/29/23 09:32 Oxygen Delivery Method Room Air Weight: 97.5 kg Body Mass Index (BMI) 32.6 Intake & Output: Intake and Output for Last 24 Hours 07/27/23 07/28/23 07/29/23 23:59 23:59 23:59 Intake Total 1917.70 / 191.70 367.07 / 367.07 Balance 191.70 / 1916.70 367.07 / 367.07 Lab / Micro Data 07/29/23 05:40 07/29/23 05:40 Labs: Laboratory Results - last 24 hr 07/28/23 12:10: Magnesium 2.1, B-Natriuretic Peptide 662.9 H 07/28/23 14:30: PT 14.9, INR 1.2, APTT 25.2 07/28/23 16:01: Troponin I High Sens 1480 H* 07/28/23 18:17: Troponin I High Sens 1170 H* 07/28/23 20:13: APTT 174.0 H* 07/29/23 05:40: WBC 9.2, RBC 4.19 L, Hgb 11.3 L, Hct 37.6, MCV 89.7, MCH 27.0, MCHC 30.1 L, RDW Std Deviation 48.6 H, RDW Coeff of Samson 15.0 H, Plt Count 183, MPV 11.0, Immature Gran % (Auto) 0.800, Neut % (Auto) 74.8 H, Lymph % (Auto) 14.5 L, [place] % (Auto) 9.3, Eos % (Auto) 0.2, Baso % (Auto) 0.4, Absolute Neuts (auto) 6.9, Absolute Lymphs (auto) 1.34, Nucleated RBC % 0, APTT 48.7 H, Sodium 136, Potassium 3.6, Chloride 105, Carbon Dioxide 23.0, Anion Gap 8, BUN 13, Creatinine 0.90, Estim Creat Clear Calc 70.00, Est GFR (MDRD) Af Amer 80, Est GF R (MDRD) Non-Af 66, BUN/Creatinine Ratio 14.5, Glucose 106, Calcium 8.8, Total Bilirubin 0.40, AST 19, ALT 10 L, Alkaline Phosphatase 55, Total Protein 7.1, Albumin 2.8 L, Globulin 4.3 H, Albumin/Globulin Ratio 0.7 L, Triglycerides 94, Cholesterol 161, LDL Cholesterol 85, VLDL Cholesterol 19, HDL Cholesterol 57 Radiography Diagnostic Testing: Radiology Impression Chest CTA 07/28/23 11:54 IMPRESSION: Diffuse bilateral emboli with thrombus in the distal portion of both the right and left main pulmonary arteries. Stable 5.1 mm well-defined nodule in the lateral right lung apex. Gallstone Electronically Signed: Craig Lindo MD at 13:15 EDT ,
[2023-07-29 13:55] LABS: Partial Thromboplast Time 53.6 Seconds (24.1-36.2)
--- NOTE | 2023-07-29 15:13 | DS.PCM_ITS ---
Providers Date of Admission: 07/28/23 Primary Care Physician: Dr. Jd Lozano MD Reason For Visit: DYSPNEA, BL PE, ELEVATED TROP Diagnosis Discharge Diagnosis (1) Bilateral pulmonary embolism: Status: Acute Code(s): I26.99 - Other pulmonary embolism without acute cor pulmonale Medications at Discharge Home Medications hydroxychloroquine 200 mg tablet 200 mg PO BIDCM 09/18/13 pantoprazole 40 mg tablet,delayed release 40 mg PO DAILY 02/26/19 famotidine 20 mg tablet 20 mg PO BID 11/08/21 blood pressure monitor #1 ea 11/08/22 leucovorin calcium 15 mg tablet 15 mg PO QWEEK counteract the methotrexate 11/08/22 prednisone 2.5 mg tablet 2.5 mg PO DAILY 11/08/22 metoprolol tartrate 50 mg tablet See Rx Instructions .Route .COMPLEX #180 tabs 04/09/23 methotrexate sodium 25 mg/mL injection solution 18.75 mg subcut QWEEK arthritis 07/28/23 sulfasalazine 500 mg tablet,delayed release 1,000 mg PO BID 07/28/23 tramadol 50 mg tablet 50 - 100 mg PO Q6H PRN PRN pain 07/28/23 Weight / BMI Weight Weight: 97.5 kg Body Mass Index (BMI) 32.6 ABG / Lab / Microbiology Data 07/29/23 05:40 07/29/23 05:40 Laboratory: Laboratory Results - last 24 hr 07/28/23 12:10: Magnesium 2.1, B-Natriuretic Peptide 662.9 H 07/28/23 16:01: Troponin I High Sens 1480 H* 07/28/23 18:17: Troponin I High Sens 1170 H* 07/28/23 20:13: APTT 174.0 H* 07/29/23 05:40: WBC 9.2, RBC 4.19 L, Hgb 11.3 L, Hct 37.6, MCV 89.7, MCH 27.0, MCHC 30.1 L, RDW Std Deviation 48.6 H, RDW Coeff of Samson 15.0 H, Plt Count 183, MPV 11.0, Immature Gran % (Auto) 0.800, Neut % (Auto) 74.8 H, Lymph % (Auto) 14.5 L, [place] % (Auto) 9.3, Eos % (Auto) 0.2, Baso % (Auto) 0.4, Absolute Neuts (auto) 6.9, Absolute Lymphs (auto) 1.34, Nucleated RBC % 0, APTT 48.7 H, Sodium 136, Potassium 3.6, Chloride 105, Carbon Dioxide 23.0, Anion Gap 8, BUN 13, Creatinine 0.90, Estim Creat Clear Calc 70.00, Est GFR (MDRD) Af Amer 80, Est GF R (MDRD) Non-Af 66, BUN/Creatinine Ratio 14.5, Glucose 106, Calcium 8.8, Total Bilirubin 0.40, AST 19, ALT 10 L, Alkaline Phosphatase 55, Total Protein 7.1, Albumin 2.8 L, Globulin 4.3 H, Albumin/Globulin Ratio 0.7 L, Triglycerides 94, Cholesterol 161, LDL Cholesterol 85, VLDL Cholesterol 19, HDL Cholesterol 57 07/29/23 13:36: APTT 53.6 H Radiography Diagnostic Testing: Radiology Impression Echocardiogram 07/28/23 15:25 Interpretation Summary Normal LV size. Left ventricular systolic function is normal. D shaped septum in systole and diastole. The left ventricular ejection fraction is 55 %. Moderately dilated right ventricle. Stage 1 diastolic dysfunction. Pulmonary artery systolic pressure is 44 mmHg. Contrast injection was performed. Ordering Physician: Sophia Wang Referring Physician: Jd Lozano MD Performed By: Deon Rea RCS Discharge Plan Admission Admit Date/Time: 07/28/23 13:53 Attending Provider: Dmitry Griggs Primary Care Provider: Jd Lozano Consulting Providers: Sophia Wang Discharge Orders/Prescriptions Prescriptions: No Action famotidine 20 mg tablet 20 mg PO BID leucovorin calcium 15 mg tablet 15 mg PO QWEEK Rx Instructions: Pt takes every prednisone 2.5 mg tablet 2.5 mg PO DAILY (DME) blood pressure monitor Kit See Rx Instructions .Route Qty: 1 0RF Rx Instructions: As directed hydroxychloroquine 200 MG tablet 200 mg PO BIDCM Patient Comments: mental health pantoprazole 40 MG tablet,delayed release (DR/EC) 40 mg PO DAILY sulfasalazine 500 mg tablet,delayed release (DR/EC) 1,000 mg PO BID methotrexate sodium 25 mg/mL solution 18.75 mg subcut QWEEK Rx Instructions: Pt takes every Friday tramadol 50 mg tablet 50 - 100 mg PO Q6H PRN PRN (Reason: pain) metoprolol tartrate 50 mg tablet See Rx Instructions .ROUTE .COMPLEX Qty: 180 3RF Dose Instruction: TAKE 1 TABLET TWICE A DAY Rx Instructions: TAKE 1 TABLET TWICE A DAY Referrals / Follow Up: Jd Lozano MD [Primary Care Provider] -
--- NOTE | 2023-07-29 15:56 | PCM.PN.HOSP ---
Reason for Visit Reason for Visit: Diagnoses Other pulmonary embolism without acute cor pulmonale (07/28/23) Subjective Subjective Patient was admitted yesterday afternoon for bilateral PE suspected secondary to DVT from immobility after recent left ankle fracture. No acute events overnight. Seen at bedside this morning. She was sitting up comfortably in bed, conversing normally, in no acute distress. Breathing comfortably on room air at rest. Has large left leg brace in place. States that she has had the brace in place now for about 8 weeks, has had fairly minimal activity over that time frame. She had not gotten out of bed to work with therapy yet when I saw her this morning. She denied any chest pain or SOB at rest. Denied any fevers/chills. No other acute concerns. Saw patient this afternoon after TTE and LE duplex US results had returned. Patient unfortunately has a significant left leg clot burden from the femoral vein down most of the leg. She also has a moderately dilated RV, though EF is normal. She did some activity w/ therapy early this afternoon and did have SOB w/ exertion. She denies any left leg pain at rest. Was going to be seen by vascular surgery later this afternoon for further recs and she was in agreement with this. Objective Data Objective Data Vital Signs: Vital Signs Temp Pulse Resp BP Pulse Ox O2 Del Method O2 Flow Rate 97.9 F 73 16 113/73 95 Room Air 0 07/29/23 15:16 07/29/23 15:16 07/29/23 15:16 07/29/23 15:16 07/29/23 15:20 07/29/23 15:16 07/29/23 15:20 Oxygen Flow Rate (L/min) [ 0 AMBULATING on Room Air] Oxygen Flow Rate (L/min) [At 0 REST on Room Air] Oxygen Delivery Method Room Air Weight: 97.5 kg Body Mass Index (BMI) 32.6 Intake & Output: Intake and Output for Last 24 Hours 07/27/23 07/28/23 07/29/23 23:59 23:59 23:59 Intake Total 1916.70 / 1916.70 393.67 / 393.67 Balance 1916.70 / 1916.70 393.67 / 393.67 Lab / Micro Data 07/29/23 05:40 07/29/23 05:40 Labs: Laboratory Results - last 24 hr 07/28/23 12:10: B-Natriuretic Peptide 662.9 H 07/28/23 16:01: Troponin I High Sens 1480 H* 07/28/23 18:17: Troponin I High Sens 1170 H* 07/28/23 20:13: APTT 174.0 H* 07/29/23 05:40: WBC 9.2, RBC 4.19 L, Hgb 11.3 L, Hct 37.6, MCV 89.7, MCH 27.0, MCHC 30.1 L, RDW Std Deviation 48.6 H, RDW Coeff of Samson 15.0 H, Plt Count 183, MPV 11.0, Immature Gran % (Auto) 0.800, Neut % (Auto) 74.8 H, Lymph % (Auto) 14.5 L, [place] % (Auto) 9.3, Eos % (Auto) 0.2, Baso % (Auto) 0.4, Absolute Neuts (auto) 6.9, Absolute Lymphs (auto) 1.34, Nucleated RBC % 0, APTT 48.7 H, Sodium 136, Potassium 3.6, Chloride 105, Carbon Dioxide 23.0, Anion Gap 8, BUN 13, Creatinine 0.90, Estim Creat Clear Calc 70.00, Est GFR (MDRD) Af Amer 80, Est GFR (MDRD) Non-Af 66, BUN/Creatinine Ratio 14.5, Glucose 106, Calcium 8.8, Total Bilirubin 0.40, AST 19, ALT 10 L, Alkaline Phosphatase 55, Total Protein 7.1, Albumin 2.8 L, Globulin 4.3 H, Albumin/Globulin Ratio 0.7 L, Triglycerides 94, Cholesterol 161, LDL Cholesterol 85, VLDL Cholesterol 19, HDL Cholesterol 57 07/29/23 13:36: APTT 53.6 H Radiography Diagnostic Testing: Radiology Impression Echocardiogram 07/28/23 15:25 Interpretation Summary Normal LV size. Left ventricular systolic function is normal. D shaped septum in systole and diastole. The left ventricular ejection fraction is 55 %. Moderately dilated right ventricle. Stage 1 diastolic dysfunction. Pulmonary artery systolic pressure is 44 mmHg. Contrast injection was performed. Ordering Physician: Sophia Wang Referring Physician: Jd Lozano MD Performed By: Deon Rea RCS Venous Doppler Study 07/29/23 07:53 Interpretation Summary Acute deep vein thrombosis is noted in the left femoral vein, popliteal vein, gastrocnemius vein, tibioperoneal trunk vein, posterior tibial vein, peroneal vein. Deep veins of the right lower extremity are patent and compressible segmentally. There is no evidence of right lower extremity deep vein thrombosis. The bilateral great saphenous veins appear patent and compressible segmentally. Ordering Physician: Dmitry Griggs Referring Physician: Jd Lozano MD Performed By: Garrick Lobo, T Physical Exam Const alert, oriented x3 and no apparent distress Constitutional Narrative: Pleasant, obese, sitting up comfortably in bed, no acute distress. General Appearance: cooperative and comfortable HEENT normocephalic, head/scalp atraumatic, hearing grossly normal bilaterally, nasal mucous membranes and turbinates normal and moist oral mucous membranes Eyes PERRL, EOMs intact bilaterally and conjunctivae normal Neck full ROM Chest inspection of chest normal Resp normal respiratory effort, normal air movement, no use of accessory muscles and clear to auscultation bilaterally Cardio regular rate, regular rhythm, no murmurs and peripheral pulses 2+ throughout GI normal to inspection, nondistended, normoactive bowel sounds, soft to palpation, non-tender and non-distended Back/Spine normal ROM Extremity Extremity Narrative: Large left leg brace in place. No overt left leg abnormalities on gross visual exam, no significant swelling or erythema noted. Skin no rashes or lesions noted Neuro no focal motor deficits and no sensory deficits noted Speech: speech normal Psych mental status grossly normal Assessment & Plan Assessment/Plan (1) Acute deep vein thrombosis (DVT) of left lower extremity: (2) Bilateral pulmonary embolism: PLAN: Plan Patient is a 73 year old female who presented to [facility] on 07/28/2023 with shortness of breath on exertion. 1. Bilateral PE, intermediate risk; large acute LLE DVT Presented w/ worse IVORY. PE/DVT presumed secondary to immobility after recent ankle fracture as noted below. CTA chest diffuse b/l emboli w/ thrombus in distal portion of both right and left main pulmonary arteries. TTE 07/28 showed EF 55%, moderately dilated RV, mild global RV systolic dysfunction, PASP 44 mmHg. LE duplex US showed acute DVT from left femoral vein all the way down to posterior tibial and peroneal veins. Troponin elevated to 1500 on admit, negative delta on 2nd and 3rd troponins. Has been hemodynamically stable on RA at rest since admit. - Vascular surgery following. Cardiology and pulmonology also aware of patient case. Venous phase CTAP and IVC duplex ordered to evalaute if patient may be a candidate for catheter directed lysis (CDL) of PE while inpatient and for LE venogram w/ thrombectomy for DVT which would happen in outpatient setting. Appreciate further recs. Continue heparin drip for now. PT/OT/CM following. 2. Recent left ankle/knee fracture - Follows outpatient w/ Dr. Mary w/ Orthopedics. Occurred after mechanical fall on 05/31/23. Has been nonweightbearing since then, has large leg brace in place. Continue to wear brace during day, okay to remove at night. No ortho needs while inpatient, has next OP follow up visit on 08/20. Chronic medical conditions: - COPD: Stable. Not on home O2. Continue home inhalers. - HTN: Continue home lopressor. - RA: Stable. Continue home meds. - Chronic anemia: At baseline of 11-12, stable. - Obesity: BMI 32 on admit. Complicates hospital course, care and prognosis. - H/o TIA: Continue home aspirin. - Former tobacco use: Continued cessation encouraged. - GERD: Continue home PPI. DVT ppx: Heparin drip Code status: Full code, verified Expected disposition: TBD Total clinical time spent by myself addressing the patient's medical issues, reviewing all the data, and collaborating with patient's care team: 35 minutes. Charges/Coding Visit Charges Inpatient E&M: 51510 Subs Hosp L2
--- NOTE | 2023-07-29 17:09 | CT_ITS ---
INDICATION: concern for iliac/IVC thrombus -- Venous phase EXAMINATION: CT ABDOMEN AND PELVIS WITH CONTRAST - CT Abdomen And Pelvis W/ Contrast Injection TECHNIQUE: Helically acquired images were obtained of the abdomen and pelvis following IV contrast. A radiation dose optimization technique was used for this scan. IV Contrast dosage and agent: 100 cc [id number] Oral contrast: None. COMPARISON: CTA chest 07/28/2023 FINDINGS: LOWER CHEST: Lung bases are clear. Small hiatal hernia. LIVER: Homogeneous. No focal mass. GALLBLADDER AND BILIARY TREE: Calcified gallstones. No gallbladder distension or wall edema. No intra- or extrahepatic biliary ductal dilation. PANCREAS: No focal cystic or solid mass. SPLEEN: Normal size without focal cystic or solid mass. ADRENAL GLANDS: No nodules. KIDNEYS AND URETERS: Normal renal size and position. No hydronephrosis. PERITONEUM: No ascites or free air. BOWEL: Normal appendix. No stomach or bowel distension. No focal inflammatory change. LYMPH NODES: No enlarged mesenteric or retroperitoneal lymph nodes. VESSELS: Aorta is non-dilated. No gross filling defects in the common iliac veins or IVC, suboptimal enhancement. URINARY BLADDER: Unremarkable. REPRODUCTIVE ORGANS: No pelvic masses. ABDOMINAL WALL: No discrete abdominal or pelvic wall hernia. BONES: No acute or aggressive abnormality. CT/Abdomen/Pelvis WITH Contrast IMPRESSION: No acute findings in the abdomen or pelvis. Cholelithiasis. No gross filling defects in the IVC or iliac veins, overall suboptimal enhancement. Electronically Signed: Morgan Ya MD at 19:27 EDT ,
--- NOTE | 2023-07-29 17:09 | AAVD_ITS ---
Reason For Study: HX LLE DVT Inferior Vena Cava Proximal inferior vena cava measures 1.82 x 1.58 cm. in the cross-sectional axis. Proximal inferior vena cava measures 2.06 cm. in the longitudinal axis. Mid inferior vena cava measures 1.65 x 1.56 cm. in the cross-sectional axis. Mid inferior vena cava measures 1.70 cm. in the longitudinal axis. Distal inferior vena cava measures 1.42 x 1.49 cm. in the cross-sectional axis. Distal inferior vena cava measures 1.71 cm. in the longitudinal axis. The inferior vena cava has spontaneous, phasic flow throughout. Left Common Iliac Vein Left common iliac vein measures 0.97 x 1.07 cm. in the cross-sectional axis. Left common iliac vein measures 1.08 cm. in the longitudinal axis. The left common iliac vein has spontaneous, phasic flow throughout. Right Common Iliac Vein Right common iliac vein measures 0.90 x 0.86 cm. in the cross-sectional axis. Right common iliac vein measures 1.04 cm. in the longitudinal axis. The right common iliac vein has spontaneous, phasic flow throughout. Procedure Aorta IVC Iliac vasculature or bypass grafts 87804. The exam was diagnostic. Exam performed in department. VL/Abd Aortic/IVC Duplex scan Interpretation Summary Patent inferior vena cava and bilateral iliac veins with no evidence of thrombu s. Ordering Physician: Glenna Dave Referring Physician: Jd Lozano MD Performed By: Garrick Lobo RVT and Student
--- NOTE | 2023-07-29 17:15 | CON.PCM.SX_ITS ---
Assessment & Plan Assessment/Plan (1) Bilateral pulmonary embolism: (2) Acute deep vein thrombosis (DVT) of left lower extremity: PLAN: Plan With respect to PE, will discuss results and findings with pulmonary to evaluate for candidacy for CDL. With pulsatile flow in the L CFV, have concern for more proximal thrombus. Will obtain venous phase CT A/P and IVC duplex to evaluate. Pending these results, she may be a candidate for lower extremity venogram with thrombectomy which would be coordinated on an outpatient basis. She will have to be NPO prior to IVC duplex. HPI Consult Data Date of Consult: 07/29/23 HPI Narrative HPI Narrative: KIKO QUINN, is a 73 F who presents with bilateral PE and extensive LLE DVT. Yesterday, she became very SOB and felt some chest pressure which led her to present to the ER. She reports she had not noticed any significant increased swelling or pain in her LLE. Initial troponin was 1595, repeat 1170. BNP was 662.9. She was 95% on RA in the ER. Her pulse was 113. CTA revealed bilateral PE. She was initiated on heparin and admitted for further management. Echo today showed moderately dilated RV and pulmonary systolic pressure 44mmHg. Venous duplex today showed DVT up to the level of the femoral vein and pulsatile flow noted in the CFV. She did have a slip and fall which led to a L knee and ankle fracture in May. She has been in an immobilizer and NWB since then. She has at least 3 more weeks of NWB. She reports today she is feeling better than yesterday with less chest discomfort and no SOB at rest. She does still feel SOB with talking at length and with activity though it is a bit better than yesterday. As she is NWB, she has been sitting on her rollator and pushing herself with her R leg to get around. [facility] Medical History (Updated 07/29/23 @ 17:42 by TATIANA Saab) Anxiety and depression COPD (chronic obstructive pulmonary disease) Former smoker GERD (gastroesophageal reflux disease) Iron deficiency anemia Obesity (BMI 30-39.9) Paroxysmal supraventricular tachycardia Pulmonary embolism Rheumatoid arthritis Schizophrenia Transient ischemic attack Home Medications hydroxychloroquine 200 mg tablet 200 mg PO BIDCM 09/18/13 [History Last Taken 09/17/13 20:00] pantoprazole 40 mg tablet,delayed release 40 mg PO DAILY 02/26/19 [History Last Taken 07/28/23] famotidine 20 mg tablet 20 mg PO BID 11/08/21 [History Last Taken 07/28/23] blood pressure monitor #1 ea 11/08/22 [Rx Last Taken Unknown] leucovorin calcium 15 mg tablet 15 mg PO QWEEK counteract the methotrexate 11/08/22 [History Last Taken 07/24/23] prednisone 2.5 mg tablet 2.5 mg PO DAILY 11/08/22 [History Last Taken 07/28/23] metoprolol tartrate 50 mg tablet See Rx Instructions .Route .COMPLEX #180 tabs 04/09/23 [Rx Last Taken 07/28/23] methotrexate sodium 25 mg/mL injection solution 18.75 mg subcut QWEEK arthritis 07/28/23 [History Last Taken 07/23/23] sulfasalazine 500 mg tablet,delayed release 1,000 mg PO BID 07/28/23 [History Last Taken 07/28/23] tramadol 50 mg tablet 50 - 100 mg PO Q6H PRN PRN pain 07/28/23 [History Last Taken Unknown] Allergy/AdvReac Type Severity Reaction Status Date / Time doxycycline AdvReac PT UNSURE Verified 07/28/23 11:36 OF REACTION Family History Mother Breast cancer Family History other Surgical History H/O tubal ligation History of breast lump removal History of foot surgery History of knee surgery History of radiofrequency ablation procedure for cardiac arrhythmia (03/2003) Social History (Updated 07/28/23 @ 18:[address] Sophia Wang MD) household members: none Smoking Status: Former smoker how long ago did patient quit smoking: Quit 15 yrs prior, smoked 2 ppd since 22 yrs old until quit. alcohol intake: never substance use type: does not use Physical Exam Const alert and oriented x3 General Appearance: cooperative HEENT normocephalic and head/scalp atraumatic Eyes EOMs intact bilaterally General Eye: normal appearance of both eyes Neck General: normal visual inspection Resp no retractions and clear to auscultation bilaterally Resp Narrative: mild shortness of breath noted with conversation Cardio Rate: regular rate Rhythm: regular rhythm Extremity Extremity Narrative: LLE with immobilizer in place, mild edema. No erythema, warmth, excessive tenderness. Neuro CN's II-XII intact bilaterally Speech: speech normal Psych mental status grossly normal Appearance: grossly normal Attitude: calm and engaged Activity / Motor Behavior: appropriate eye contact Speech: normal speech Mood & Affect: euthymic mood Lab / Micro Data 07/29/23 05:40 07/29/23 05:40 Labs: Laboratory Results - last 24 hr 07/28/23 18:17: Troponin I High Sens 1170 H* 07/28/23 20:13: APTT 174.0 H* 07/29/23 05:40: WBC 9.2, RBC 4.19 L, Hgb 11.3 L, Hct 37.6, MCV 89.7, MCH 27.0, MCHC 30.1 L, RDW Std Deviation 48.6 H, RDW Coeff of Samson 15.0 H, Plt Count 183, MPV 11.0, Immature Gran % (Auto) 0.800, Neut % (Auto) 74.8 H, Lymph % (Auto) 14.5 L, [place] % (Auto) 9.3, Eos % (Auto) 0.2, Baso % (Auto) 0.4, Absolute Neuts (auto) 6.9, Absolute Lymphs (auto) 1.34, Nucleated RBC % 0, APTT 48.7 H, Sodium 136, Potassium 3.6, Chloride 105, Carbon Dioxide 23.0, Anion Gap 8, BUN 13, Creatinine 0.90, Estim Creat Clear Calc 70.00, Est GFR (MDRD) Af Amer 80, Est GFR (MDRD) Non-Af 66, BUN/Creatinine Ratio 14.5, Glucose 106, Calcium 8.8, Total Bilirubin 0.40, AST 19, ALT 10 L, Alkaline Phosphatase 55, Total Protein 7.1, Albumin 2.8 L, Globulin 4.3 H, Albumin/Globulin Ratio 0.7 L, Triglycerides 94, Cholesterol 161, LDL Cholesterol 85, VLDL Cholesterol 19, HDL Cholesterol 57 07/29/23 13:36: APTT 53.6 H Imaging Radiology Impression Echocardiogram 07/28/23 15:25 Interpretation Summary Normal LV size. Left ventricular systolic function is normal. D shaped septum in systole and diastole. The left ventricular ejection fraction is 55 %. Moderately dilated right ventricle. Stage 1 diastolic dysfunction. Pulmonary artery systolic pressure is 44 mmHg. Contrast injection was performed. Ordering Physician: Sophia Wang Referring Physician: Jd Lozano MD Performed By: Deon Rea RCS Venous Doppler Study 07/29/23 07:53 Interpretation Summary Acute deep vein thrombosis is noted in the left femoral vein, popliteal vein, gastrocnemius vein, tibioperoneal trunk vein, posterior tibial vein, peroneal vein. Deep veins of the right lower extremity are patent and compressible segmentally. There is no evidence of right lower extremity deep vein thrombosis. The bilateral great saphenous veins appear patent and compressible segmentally. Ordering Physician: Dmitry Griggs Referring Physician: Jd Lozano MD Performed By: Garrick Lobo RVT
[2023-07-29 20:52] LABS: Partial Thromboplast Time 38.4 Seconds (24.1-36.2)
[2023-07-30] VITALS (9 sets, daily range): BP systolic 116–143; BP diastolic 62–72; PULSE 74–87; RESP 14–18; TEMP 36.6–36.9; O2SAT 94–98; BMI 31.8
[2023-07-30 05:23] LABS: Partial Thromboplast Time 107.1 Seconds (24.1-36.2)
[2023-07-30] MEDS: Budesonide Respules 0.5 MG/2 ML AMPUL.NEB. INHALATION ×2 (06:55→19:15)
[2023-07-30] MEDS: HEPARIN/D5w 25,000 UNITS 25,000 UNITS/250 ML IV.SOLN. 12 UNITS CONT INF (08:00)
--- NOTE | 2023-07-30 08:12 | EX.PCM.CONCC ---
Assessment & Plan Assessment/Plan (1) Bilateral pulmonary embolism: (2) Acute deep vein thrombosis (DVT) of left lower extremity: PLAN: Plan RECOMMENDATIONS: 1. Continue heparin infusion, with plans to transition to oral anticoagulation regimen when feasible. 2. Ambulate patient as tolerated. IMPRESSIONS: 1. Bilateral pulmonary emboli Most likely provoked by recent immobility in the setting of ankle fracture. She has remained clinically stable on a heparin infusion. The patient is not hypoxemic, nor is she endorsing any significant dyspnea. At this time, I do not see an overt indication to proceed with pulmonary thrombectomy, given the patient's clinical stability. 2. Recent left ankle/knee fracture Continue outpatient orthopedic follow-up as scheduled. The patient will need to remain anticoagulated while she remains immobilized, for at least a period of 3 months. 3. History of COPD/rheumatoid arthritis/anemia/tobacco dependency, in remission/obesity Complicates care, management, recovery and prognosis. Continue home medications as indicated. This note was generated with [employer] dictation software. It may contain incorrect words, spelling, and punctuation that were not noted in checking the note before signing. HPI Consult Data Date of Consult: 07/30/23 HPI Narrative Reason for Consultation: Pulmonary emboli HPI Narrative: The patient is a 73-year-old female, with a history as outlined below, who presented to the emergency department on July 27 with shortness of breath. The patient has an apparent history of rheumatoid arthritis, COPD, anxiety and depression. The patient had no prior history of VTE. The patient did sustain a recent left lower extremity ankle and knee fracture resulting in immobilization. On presentation to the emergency department, the patient was noted to be afebrile and hemodynamically stable. She was mildly tachycardic tachypneic, but otherwise maintaining appropriate oxygen saturations on room air. The patient did have an elevated troponin at 1595 with a BNP of 662. CTA chest demonstrated bilateral pulmonary emboli. Subsequent lower extremity Doppler study demonstrated left-sided DVT. The patient surface echocardiogram demonstrated normal LV size and function with an ejection fraction of 55% and stage I diastolic dysfunction. The RV was moderately dilated with mild global RV systolic dysfunction and pulmonary artery systolic pressure of 44 mmHg. The patient was admitted to the hospital and placed on a heparin infusion. She was subsequently evaluated by vascular surgery for possible lower extremity thrombectomy. At the present time, the patient does not endorse any significant shortness of breath. She is not hypoxemic and is maintaining appropriate oxygen saturations on room air. [facility] Medical History (Updated 07/29/23 @ 17:42 by TATIANA Saab) Anxiety and depression COPD (chronic obstructive pulmonary disease) Former smoker GERD (gastroesophageal reflux disease) Iron deficiency anemia Obesity (BMI 30-39.9) Paroxysmal supraventricular tachycardia Pulmonary embolism Rheumatoid arthritis Schizophrenia Transient ischemic attack Home Medications hydroxychloroquine 200 mg tablet 200 mg PO BIDCM 09/18/13 [History Last Taken 09/17/13 20:00] pantoprazole 40 mg tablet,delayed release 40 mg PO DAILY 02/26/19 [History Last Taken 07/28/23] famotidine 20 mg tablet 20 mg PO BID 11/08/21 [History Last Taken 07/28/23] blood pressure monitor #1 ea 11/08/22 [Rx Last Taken Unknown] leucovorin calcium 15 mg tablet 15 mg PO QWEEK counteract the methotrexate 11/08/22 [History Last Taken 07/24/23] prednisone 2.5 mg tablet 2.5 mg PO DAILY 11/08/22 [History Last Taken 07/28/23] metoprolol tartrate 50 mg tablet See Rx Instructions .Route .COMPLEX #180 tabs 04/09/23 [Rx Last Taken 07/28/23] methotrexate sodium 25 mg/mL injection solution 18.75 mg subcut QWEEK arthritis 07/28/23 [History Last Taken 07/23/23] sulfasalazine 500 mg tablet,delayed release 1,000 mg PO BID 07/28/23 [History Last Taken 07/28/23] tramadol 50 mg tablet 50 - 100 mg PO Q6H PRN PRN pain 07/28/23 [History Last Taken Unknown] Allergy/AdvReac Type Severity Reaction Status Date / Time doxycycline AdvReac PT UNSURE Verified 07/28/23 11:36 OF REACTION Family History Mother Breast cancer Family History other Surgical History H/O tubal ligation History of breast lump removal History of foot surgery History of knee surgery History of radiofrequency ablation procedure for cardiac arrhythmia (03/2003) Social History (Updated 07/28/23 @ 18:[address] Sophia Wang MD) household members: none Smoking Status: Former smoker how long ago did patient quit smoking: Quit 15 yrs prior, smoked 2 ppd since 22 yrs old until quit. alcohol intake: never substance use type: does not use ROS ROS Narrative 10 systems were reviewed with pertinent positives as noted in the HPI above. Physical Exam Const alert and no apparent distress Constitutional Narrative: Obese. Resting comfortably in bed. General Appearance: cooperative HEENT normocephalic, head/scalp atraumatic and moist oral mucous membranes Eyes PERRL and EOMs intact bilaterally Neck supple General: trachea midline Chest inspection of chest normal Resp normal respiratory effort Auscultation: Negative for rales, rhonchi or wheezes Cardio regular rate and regular rhythm GI normal to inspection, nondistended, normoactive bowel sounds Extremity Extremity Narrative: Left lower extremity immobilizer brace in place General Extremity: Negative for clubbing Neuro CN's II-XII intact bilaterally, moves all extremities and no focal motor deficits Psych cooperative and affect normal Lab / Micro Data 07/29/23 05:40 07/29/23 05:40 Labs: Laboratory Results - last 24 hr 07/29/23 13:36: APTT 53.6 H 07/29/23 20:28: APTT 38.4 H 07/30/23 04:42: APTT 107.1 H* Imaging Radiology Impression Echocardiogram 07/28/23 15:25 Interpretation Summary Normal LV size. Left ventricular systolic function is normal. D shaped septum in systole and diastole. The left ventricular ejection fraction is 55 %. Moderately dilated right ventricle. Stage 1 diastolic dysfunction. Pulmonary artery systolic pressure is 44 mmHg. Contrast injection was performed. Ordering Physician: Sophia Wang Referring Physician: Jd Lozano MD Performed By: Deon Rea RCS Venous Doppler Study 07/29/23 07:53 Interpretation Summary Acute deep vein thrombosis is noted in the left femoral vein, popliteal vein, gastrocnemius vein, tibioperoneal trunk vein, posterior tibial vein, peroneal vein. Deep veins of the right lower extremity are patent and compressible segmentally. There is no evidence of right lower extremity deep vein thrombosis. The bilateral great saphenous veins appear patent and compressible segmentally. Ordering Physician: Dmitry Griggs Referring Physician: Jd Lozano MD Performed By: Garrick Lobo, T Abdomen/Pelvis CT 07/29/23 17:09 IMPRESSION: No acute findings in the abdomen or pelvis. Cholelithiasis. No gross filling defects in the IVC or iliac veins, overall suboptimal enhancement. Electronically Signed: Morgan Ya MD at 19:27 EDT , Charges/Coding Visit Charges Inpatient E&M: 99940 Init Hosp L3
[2023-07-30] MEDS: traMADol 50 MG Tablet 100 MG PO ×2 (09:15→21:35)
[2023-07-30] MEDS: guaiFENesin 10 ML UDC (200MG/10ML) 20 ML PO (09:16)
[2023-07-30] MEDS: Famotidine 20 MG Tablet PO ×2 (09:16→21:34)
[2023-07-30] MEDS: Pantoprazole Sodium 40 MG Tablet PO (09:16)
[2023-07-30] MEDS: Metoprolol Tartrate 50 MG Tablet PO ×2 (09:16→21:35)
[2023-07-30] MEDS: Hydroxychloroquine 200 MG Tablet PO ×2 (09:16→17:51)
[2023-07-30] MEDS: Aspirin 81 MG TAB.CHEW PO (09:17)
[2023-07-30] MEDS: predniSONE 5 MG Tablet 2.5 MG PO (09:17)
[2023-07-30] MEDS: sulfaSALAzine 500 MG Tablet 1000 MG PO ×2 (09:17→21:34)
[2023-07-30] MEDS: Ondansetron 4 MG/2 ML Vial IV (10:23)
[2023-07-30] MEDS: Acetaminophen 325 MG Tablet 650 MG PO ×2 (10:57→17:51)
[2023-07-30 13:35] LABS: Partial Thromboplast Time 51.6 Seconds (24.1-36.2)
--- NOTE | 2023-07-30 14:44 | PCM.PN.HOSP ---
Reason for Visit Reason for Visit: Diagnoses Other pulmonary embolism without acute cor pulmonale (07/28/23) Acute embolism and thrombosis of unspecified deep veins of left lower extremity (07/28/23) Subjective Subjective No acute events overnight. Patient seen at bedside this morning, family member present. Sitting up fairly comfortably in bed, conversing normally, in no acute distress. Appears similar to previous days. Patient had the abdominal aorta ultrasound study done this morning prior to our encounter, tolerated this without issue. However, patient did have episode of nausea with vomiting when trying to eat breakfast this morning. She denied feeling nauseous currently. Denies any recent nausea or vomiting prior to that episode. She otherwise feels similar today to previous days. Has not gotten out of bed yet with therapy today. No other acute concerns. Objective Data Objective Data Vital Signs: Vital Signs Temp Pulse Resp BP Pulse Ox O2 Del Method O2 Flow Rate 98.5 F 84 18 143/64 H 98 Room Air 0 07/30/23 07:57 07/30/23 09:16 07/30/23 07:57 07/30/23 09:16 07/30/23 07:57 07/30/23 07:57 07/29/23 15:20 Oxygen Flow Rate (L/min) [ 0 AMBULATING on Room Air] Oxygen Flow Rate (L/min) [At 0 REST on Room Air] Oxygen Delivery Method Room Air Weight: 94.9 kg Body Mass Index (BMI) 31.8 Intake & Output: Intake and Output for Last 24 Hours 07/28/23 07/29/23 07/30/23 23:59 23:59 23:59 Intake Total 1916.70 / 1916.70 2048.54 / 8.54 112.30 / 112.30 Output Total 100 / 100 0 / 0 Balance 1916.70 / 1916.70 1948.54 / 1948.54 112.30 / 112.30 Lab / Micro Data 07/29/23 05:40 07/29/23 05:40 Labs: Laboratory Results - last 24 hr 07/29/23 20:28: APTT 38.4 H 07/30/23 04:42: APTT 107.1 H* 07/30/23 13:12: APTT 51.6 H Radiography Diagnostic Testing: Radiology Impression Venous Doppler Study 07/29/23 07:53 Interpretation Summary Acute deep vein thrombosis is noted in the left femoral vein, popliteal vein, gastrocnemius vein, tibioperoneal trunk vein, posterior tibial vein, peroneal vein. Deep veins of the right lower extremity are patent and compressible segmentally. There is no evidence of right lower extremity deep vein thrombosis. The bilateral great saphenous veins appear patent and compressible segmentally. Ordering Physician: Dmitry Griggs Referring Physician: Jd Lozano MD Performed By: Garrick Lobo RVT Abdomen/Pelvis CT 07/29/23 17:09 IMPRESSION: No acute findings in the abdomen or pelvis. Cholelithiasis. No gross filling defects in the IVC or iliac veins, overall suboptimal enhancement. Electronically Signed: Morgan Ya MD at 19:27 EDT , Aorta Iliac Vascular Ultrasound 07/29/23 17:09 Interpretation Summary Patent inferior vena cava and bilateral iliac veins with no evidence of thrombus. Ordering Physician: Glenna Dave Referring Physician: Jd Lozano MD Performed By: Garrick Lobo RVT and Student Physical Exam Const alert, oriented x3 and no apparent distress Constitutional Narrative: Pleasant, obese, sitting up comfortably in bed, no acute distress. General Appearance: cooperative and comfortable HEENT normocephalic, head/scalp atraumatic, hearing grossly normal bilaterally, nasal mucous membranes and turbinates normal and moist oral mucous membranes Eyes PERRL, EOMs intact bilaterally and conjunctivae normal Neck full ROM Chest inspection of chest normal Resp normal respiratory effort, normal air movement, no use of accessory muscles and clear to auscultation bilaterally Cardio regular rate, regular rhythm, no murmurs and peripheral pulses 2+ throughout GI normal to inspection, nondistended, normoactive bowel sounds, soft to palpation, non-tender and non-distended Back/Spine normal ROM Extremity Extremity Narrative: Large left leg brace in place. No overt left leg abnormalities on gross visual exam, no significant swelling or erythema noted. Skin no rashes or lesions noted Neuro no focal motor deficits and no sensory deficits noted Speech: speech normal Psych mental status grossly normal Assessment & Plan Assessment/Plan (1) Acute deep vein thrombosis (DVT) of left lower extremity: (2) Bilateral pulmonary embolism: PLAN: Plan Patient is a 73 year old female who presented to [facility] on 07/28/2023 with shortness of breath on exertion. 1. Bilateral PE, intermediate risk; large acute LLE DVT Presented w/ worse IVORY. PE/DVT presumed secondary to immobility after recent ankle fracture as noted below. CTA chest diffuse b/l emboli w/ thrombus in distal portion of both right and left main pulmonary arteries. TTE 07/28 showed EF 55%, moderately dilated RV, mild global RV systolic dysfunction, PASP 44 mmHg. LE duplex US showed acute DVT from left femoral vein all the way down to posterior tibial and peroneal veins. Troponin elevated to 1500 on admit, negative delta on 2nd and 3rd troponins. Has been hemodynamically stable on RA at rest since admit. Venous phase CTAP on 07/28 with no gross filling defects in the IVC or iliac veins. Abdominal aorta ultrasound on 07/29 with patent IVC and bilateral iliac veins. ? Vascular surgery and pulmonology following. Patient will not need catheter directed lysis (CDL) of PE. Per vascular surgery, will see patient in the office shortly after discharge and potentially bring back in 2 to 3 weeks for possible venogram. Will transition to [facility] on evening of 07/29. Plan for O2 ambulatory test tomorrow morning to see if patient will need supplemental oxygen on discharge. Hopeful for discharge home tomorrow. PT/OT/CM following, likely no therapy needs on discharge. 2. Recent left ankle/knee fracture - Follows outpatient w/ Dr. Mary w/ Orthopedics. Occurred after mechanical fall on 05/31/23. Has been nonweightbearing since then, has large leg brace in place. Continue to wear brace during day, okay to remove at night. No ortho needs while inpatient, has next OP follow up visit on 08/20. Chronic medical conditions: - COPD: Stable. Not on home O2. Continue home inhalers. - HTN: Continue home lopressor. - RA: Stable. Continue home meds. - Chronic anemia: At baseline of 11-12, stable. - Obesity: BMI 32 on admit. Complicates hospital course, care and prognosis. - H/o TIA: Continue home aspirin. - Former tobacco use: Continued cessation encouraged. - GERD: Continue home PPI. DVT ppx: Eliquis Code status: Full code, verified Expected disposition: Home, 1 to 2 days Total clinical time spent by myself addressing the patient's medical issues, reviewing all the data, and collaborating with patient's care team: 35 minutes. Charges/Coding Visit Charges Inpatient E&M: 99899 Subs Hosp L2
--- NOTE | 2023-07-30 17:37 | PN.SURG_ITS ---
Subjective Subjective Patient is seen resting comfortably in bed with family member at bedside. She says her SOB is improving, it is much better than it was when she first arrived at the hospital. Her CT and and IVC duplex were both negative for evidence of more proximal thrombus. Objective Data Objective Data Vital Signs: Vital Signs Temp Pulse Resp BP Pulse Ox O2 Del Method O2 Flow Rate 98.5 F 83 16 119/72 98 Room Air 0 07/30/23 17:22 07/30/23 17:22 07/30/23 17:22 07/30/23 17:22 07/30/23 17:22 07/30/23 17:22 07/29/23 15:20 Oxygen Flow Rate (L/min) [ 0 AMBULATING on Room Air] Oxygen Flow Rate (L/min) [At 0 REST on Room Air] Oxygen Delivery Method Room Air Weight: 209 lb 3.499 oz Body Mass Index (BMI) 31.8 Intake & Output: Intake and Output for Last 24 Hours 07/28/23 07/29/23 07/30/23 23:59 23:59 23:59 Intake Total 1917.70 / 1917.70 2048.54 / 2048.54 112.30 / 112.30 Output Total 100 / 100 0 / 0 Balance 1917.70 / 1917.70 1948.54 / 1948.54 112.30 / 112.30 Lab / Micro Data 07/29/23 05:40 07/29/23 05:40 Labs: Laboratory Results - last 24 hr 07/29/23 20:28: APTT 38.4 H 07/30/23 04:42: APTT 107.1 H* 07/30/23 13:12: APTT 51.6 H Radiography Diagnostic Testing: Radiology Impression Abdomen/Pelvis CT 07/29/23 17:09 IMPRESSION: No acute findings in the abdomen or pelvis. Cholelithiasis. No gross filling defects in the IVC or iliac veins, overall suboptimal enhancement. Electronically Signed: Morgan Ya MD at 19:27 EDT , Aorta Iliac Vascular Ultrasound 07/29/23 17:09 Interpretation Summary Patent inferior vena cava and bilateral iliac veins with no evidence of thrombus. Ordering Physician: Glenna Dave Referring Physician: Jd Lozano MD Performed By: Garrick Lobo RVT and Student Physical Exam Const alert and oriented x3 General Appearance: cooperative HEENT normocephalic and head/scalp atraumatic Eyes EOMs intact bilaterally General Eye: normal appearance of both eyes Neck General: normal visual inspection Resp normal respiratory effort, no retractions and clear to auscultation bilaterally Cardio Rate: regular rate Rhythm: regular rhythm Extremity Extremity Narrative: LLE with immobilizer in place, mild edema. No erythema, warmth, excessive tenderness. Neuro CN's II-XII intact bilaterally Speech: speech normal Psych mental status grossly normal Appearance: grossly normal Attitude: calm and engaged Activity / Motor Behavior: appropriate eye contact Speech: normal speech Mood & Affect: euthymic mood Assessment & Plan Assessment/Plan (1) Bilateral pulmonary embolism: (2) Acute deep vein thrombosis (DVT) of left lower extremity: PLAN: Plan For PE, plan is to continue with anticoagulation alone as her symptoms continue to improve. She is transitioning to Eliquis this evening. Regarding her LLE DVT, will plan to repeat a venous duplex and have her f/u in the office as an outpatient in 1-2 weeks for ongoing management and potential ve nogram/thrombectomy if indicated.
[2023-07-30] MEDS: Heparin Injection (Vial) 5,000 UNIT/ML VIAL IV (17:53)
[2023-07-30] MEDS: APIXABAN 5 MG TABLET 10 MG PO (21:35)
[2023-07-30] MEDS: 0.9% Saline Lock 10 ML Syringe IV (22:04)
[2023-07-31 00:31] LABS: Partial Thromboplast Time 37.9 Seconds (24.1-36.2)
[2023-07-31] MEDS: Acetaminophen 325 MG Tablet 650 MG PO ×2 (03:14→08:51)
[2023-07-31 03:20] VITALS: BP 121/71; PULSE 75; RESP 18; TEMP 36.7; O2SAT 97
[2023-07-31 05:21] VITALS: BMI 32.1
[2023-07-31 07:18] VITALS: PULSE 75; RESP 15; O2SAT 98
[2023-07-31] MEDS: Budesonide Respules 0.5 MG/2 ML AMPUL.NEB. INHALATION (07:18)
[2023-07-31 08:27] LABS: Hematocrit 32.4 % (37-47); Hemoglobin 9.9 g/dL (12.0-15.0); Mean Corp Hgb Conc 30.6 g/dL (32-36); Mean Corpuscular Hgb 27.3 pg (27.0-32.0); Mean Corpuscular Volume 89.5 fL (81-99); Platelet Count 201 K/mm3 (150-450); RBC Distribution Width CV 14.8 % (11.6-14.6); RBC Distribution Width SD 47.8 fl (35.1-43.9); Red Blood Count 3.62 M/mm3 (4.2-5.4); White Blood Count 8.1 K/mm3 (4.4-11.0)
[2023-07-31 08:48] VITALS: BP 117/57; PULSE 76; RESP 16; TEMP 36.6; O2SAT 99
[2023-07-31] MEDS: Senna/Docusate Sodium 1 Tablet 2 TABLET PO (08:52)
[2023-07-31] MEDS: Pantoprazole Sodium 40 MG Tablet PO (08:55)
[2023-07-31] MEDS: Aspirin 81 MG TAB.CHEW PO (08:55)
[2023-07-31] MEDS: Hydroxychloroquine 200 MG Tablet PO (08:56)
[2023-07-31] MEDS: predniSONE 5 MG Tablet 2.5 MG PO (08:56)
[2023-07-31 09:08] LABS: Anion Gap 7 (5-15); BUN 13 mg/dL (7-18); BUN/Creat Ratio 17.5 RATIO (10-20); Calcium,Total 8.6 mg/dL (8.5-10.1); Chloride 105 mmol/L (98-107); Creatinine, Serum 0.74 mg/dL (0.55-1.02); EST Glomerular Filtration Rate 82 mL/min (>60); Est Glom Filt Rate - Afr Amer 99 mL/min (>60); Estimated Creatinine Clearance 78.06 ml/min; Glucose 95 mg/dL (74-106); Potassium 3.8 mmol/L (3.5-5.1); Sodium Level 134 mmol/L (136-145)
[2023-07-31 10:53] VITALS: BP 117/57; PULSE 77
[2023-07-31] MEDS: Famotidine 20 MG Tablet PO (10:53)
[2023-07-31] MEDS: sulfaSALAzine 500 MG Tablet 1000 MG PO (10:53)
[2023-07-31] MEDS: Metoprolol Tartrate 50 MG Tablet PO (10:53)
[2023-07-31] MEDS: APIXABAN 5 MG TABLET 10 MG PO (10:54)
[2023-07-31] MEDS: leucovorin 15 MG Tablet PO (10:54)
--- NOTE | 2023-07-31 11:12 | DCINST_ITS ---
Discharge Instructions Diet Discharge Diet: No restrictions Follow Up Care Test Results: Test results from this visit will be discussed in further detail at your follow- up appointment, if applicable. Discharge Plan Admission Admit Date/Time: 07/28/23 13:53 Primary Reason for Your Visit: shortness of breath, cough Attending Provider: Dmitry Griggs Primary Care Provider: Jd Lozano Consulting Providers: Sophia Wang; Jd Olmos Discharge Orders/Prescriptions Prescriptions: New Eliquis 5 mg tablet 5 mg PO BID 30 Days Qty: 72 0RF Rx Instructions: Please take 10 mg (2 tablets) twice daily for 6 days (through 08/05), then take 5 mg (1 tablet) twice daily going forward. Continued famotidine 20 mg tablet 20 mg PO BID leucovorin calcium 15 mg tablet 15 mg PO QWEEK Rx Instructions: Pt takes every prednisone 2.5 mg tablet 2.5 mg PO DAILY (DME) blood pressure monitor Kit See Rx Instructions .Route Qty: 1 0RF Rx Instructions: As directed hydroxychloroquine 200 MG tablet 200 mg PO BIDCM Patient Comments: mental health pantoprazole 40 MG tablet,delayed release (DR/EC) 40 mg PO DAILY sulfasalazine 500 mg tablet,delayed release (DR/EC) 1,000 mg PO BID methotrexate sodium 25 mg/mL solution 18.75 mg subcut QWEEK Rx Instructions: Pt takes every Friday tramadol 50 mg tablet 50 - 100 mg PO Q6H PRN PRN (Reason: pain) metoprolol tartrate 50 mg tablet See Rx Instructions .ROUTE .COMPLEX Qty: 180 3RF Dose Instruction: TAKE 1 TABLET TWICE A DAY Rx Instructions: TAKE 1 TABLET TWICE A DAY Referrals / Follow Up: Jd Lozano MD [Primary Care Provider] - Disposition Disposition (needs filled in before D/C Order can be placed): Home, Self Care
--- NOTE | 2023-07-31 11:15 | DS.PCM_ITS ---
Providers Date of Admission: 07/28/23 Date of Discharge: 07/31/23 Primary Care Physician: Dr. Jd Lozano MD Consultations 07/29/23 15:55 Consult: Vascular Surgery Routine Consulting Provider: Jd Olmos Reason for Consult: extensive DVT w/ PE, HD stable on room air at rest EMERGENT Consult: No Notified: Yes Date Notified: 07/29/23 Time Notified: 15:55 Method of Notification: Text 07/29/23 17:04 Consult: Integrated Circuits Inspector / Pulmonary Medicine Routine Consulting Provider: Intensivists/Pulmonary Med Reason for Consult: PE EMERGENT Consult: No Notified: Yes Date Notified: 07/29/23 Time Notified: 17:04 Method of Notification: Verbal Reason For Visit: DYSPNEA, BL PE, ELEVATED TROP Diagnosis Discharge Diagnosis (1) Bilateral pulmonary embolism: Status: Acute Code(s): I26.99 - Other pulmonary embolism without acute cor pulmonale (2) Acute deep vein thrombosis (DVT) of left lower extremity: Status: Acute Code(s): I82.402 - Acute embolism and thrombosis of unspecified deep veins of left lower extremity Medications at Discharge Home Medications hydroxychloroquine 200 mg tablet 200 mg PO BIDCM 09/18/13 pantoprazole 40 mg tablet,delayed release 40 mg PO DAILY 02/26/19 famotidine 20 mg tablet 20 mg PO BID 11/08/21 blood pressure monitor #1 ea 11/08/22 leucovorin calcium 15 mg tablet 15 mg PO QWEEK counteract the methotrexate 11/08/22 prednisone 2.5 mg tablet 2.5 mg PO DAILY 11/08/22 metoprolol tartrate 50 mg tablet See Rx Instructions .Route .COMPLEX #180 tabs 04/09/23 methotrexate sodium 25 mg/mL injection solution 18.75 mg subcut QWEEK arthritis 07/28/23 sulfasalazine 500 mg tablet,delayed release 1,000 mg PO BID 07/28/23 tramadol 50 mg tablet 50 - 100 mg PO Q6H PRN PRN pain 07/28/23 apixaban 5 mg tablet (Eliquis) 5 mg PO BID 30 days #72 tabs 07/31/23 Hospital Course Operations None Procedures EKG, Transthoracic echo and - (CTA chest, venous Doppler study, CT abdomen pelvis, aorta iliac vascular ultrasound, abdominal aorta ultrasound) Summary of Care Provided Minutes Spent on Discharge: 35 Hospital Course: Patient is a 73 year old female who presented to [facility] on 07/28/2023 with shortness of breath on exertion. Hospital course as noted below. Discharged home with no therapy needs in stable condition on 07/30. 1. Bilateral PE, intermediate risk; large acute LLE DVT Presented w/ worse IVORY. PE/DVT presumed secondary to immobility after recent ankle fracture as noted below. CTA chest diffuse b/l emboli w/ thrombus in distal portion of both right and left main pulmonary arteries. TTE 07/28 showed EF 55%, moderately dilated RV, mild global RV systolic dysfunction, PASP 44 mmHg. LE duplex US showed acute DVT from left femoral vein all the way down to posterior tibial and peroneal veins. Troponin elevated to 1500 on admit, negative delta on 2nd and 3rd troponins. Has been hemodynamically stable on RA at rest since admit. Venous phase CTAP on 07/28 with no gross filling defects in the IVC or iliac veins. Abdominal aorta ultrasound on 07/29 with patent IVC and bilateral iliac veins. ? Vascular surgery and pulmonology followed. Patient did not need catheter directed lysis (CDL) of PE. Per vascular surgery, will see patient in the office shortly after discharge and potentially bring back in 2 to 3 weeks for possible venogram. Treated with heparin drip initially, transitioned to Eliquis at DVT dosing on 07/29. Patient did not need oxygen on discharge. Discharged on Eliquis, will complete 7 days of Eliquis 10 mg twice daily 07/05 then transition to 5 mg twice daily going forward. Will need at least 3 months of anticoagulation therapy. PT/OT/CM followed, no therapy needs on discharge. 2. Recent left ankle/knee fracture - Follows outpatient w/ Dr. Mary w/ Orthopedics. Occurred after mechanical fall on 05/31/23. Has been nonweightbearing since then, has large leg brace in place. Continue to wear brace during day, okay to remove at night. No ortho needs while inpatient, has next OP follow up visit on 08/20. Chronic medical conditions: - COPD: Stable. Not on home O2. Continue home inhalers. - HTN: Continue home lopressor. - RA: Stable. Continue home meds. - Chronic anemia: At baseline of 11-12, stable. - Obesity: BMI 32 on admit. Complicated hospital course, care and prognosis. - H/o TIA: Continue home aspirin. - Former tobacco use: Continued cessation encouraged. - GERD: Continue home PPI. Total clinical time spent by myself addressing the patient's medical issues, reviewing all the data, and collaborating with patient's care team: 35 minutes. Physical Exam Const alert, oriented x3 and no apparent distress Constitutional Narrative: Pleasant, obese, sitting up comfortably in bed, no acute distress. General Appearance: cooperative and comfortable HEENT normocephalic, head/scalp atraumatic, hearing grossly normal bilaterally, nasal mucous membranes and turbinates normal and moist oral mucous membranes Eyes PERRL, EOMs intact bilaterally and conjunctivae normal Neck full ROM Chest inspection of chest normal Resp normal respiratory effort, normal air movement, no use of accessory muscles and clear to auscultation bilaterally Cardio regular rate, regular rhythm, no murmurs and peripheral pulses 2+ throughout GI normal to inspection, nondistended, normoactive bowel sounds, soft to palpation, non-tender and non-distended Back/Spine normal ROM Extremity Extremity Narrative: Large left leg brace in place. No overt left leg abnormalities on gross visual exam, no significant swelling or erythema noted. Skin no rashes or lesions noted Neuro no focal motor deficits and no sensory deficits noted Speech: speech normal Psych mental status grossly normal Weight / BMI Weight Weight: 95.8 kg Body Mass Index (BMI) 32.1 ABG / Lab / Microbiology Data 07/31/23 06:45 07/31/23 06:45 Laboratory: Laboratory Results - last 24 hr 07/30/23 13:12: APTT 51.6 H 07/30/23 23:59: APTT 37.9 H 07/31/23 06:45: WBC 8.1, RBC 3.62 L, Hgb 9.9 L, Hct 32.4 L, MCV 89.5, MCH 27.3, MCHC 30.6 L, RDW Std Deviation 47.8 H, RDW Coeff of Samson 14.8 H, Plt Count 201, MPV 11.0, Sodium 134 L, Potassium 3.8, Chloride 105, Carbon Dioxide 22.0, Anion Gap 7, BUN 13, Creatinine 0.74, Estim Creat Clear Calc 78.06, Est GFR (MDRD) Af Amer 99, Est GFR (MDRD) Non-Af 82, BUN/Creatinine Ratio 17.5, Glucose 95, Calcium 8.6 Radiography Diagnostic Testing: Radiology Impression Aorta Iliac Vascular Ultrasound 07/29/23 17:09 Interpretation Summary Patent inferior vena cava and bilateral iliac veins with no evidence of thrombus. Ordering Physician: Glenna Dave Referring Physician: Jd Lozano MD Performed By: Garrick Lobo RVT and Student D/C Instructions Discharge Diet: No restrictions Meaningful Use Info Meaningful Use Meaningful Use Diagnoses (Choose all that apply): None applicable Ischemic Stroke Statin Dosing Therapy Reference: STATIN DOSE THERAPY REFERENCE: * Patients > 75 years receive moderate or high dose statin therapy. * Patients 75 years or YOUNGER should receive HIGH intensity statin dose unless contraindicated. You will be required to document reason for non-treatment if statin daily dose does not meet guidelines. HIGH DOSE STATIN THERAPY DAILY Atorvastatin > than or = to 40 mg Rosuvastatin > than or = to 20 mg Amlodipine + Atorvastatin > than or = to 2.5/40 mg Ezetimibe + Simvastatin 10/80 mg Simvastatin 80mg Discharge Plan Admission Admit Date/Time: 07/28/23 13:53 Primary Reason for Your Visit: shortness of breath, cough Attending Provider: Dmitry Griggs Primary Care Provider: Jd Lozano Consulting Providers: Sophia Wang; Jd Olmos Discharge Orders/Prescriptions Prescriptions: New Eliquis 5 mg tablet 5 mg PO BID 30 Days Qty: 72 0RF Rx Instructions: Please take 10 mg (2 tablets) twice daily for 6 days (through 08/05), then take 5 mg (1 tablet) twice daily going forward. Continued famotidine 20 mg tablet 20 mg PO BID leucovorin calcium 15 mg tablet 15 mg PO QWEEK Rx Instructions: Pt takes every prednisone 2.5 mg tablet 2.5 mg PO DAILY (DME) blood pressure monitor Kit See Rx Instructions .Route Qty: 1 0RF Rx Instructions: As directed hydroxychloroquine 200 MG tablet 200 mg PO BIDCM Patient Comments: mental health pantoprazole 40 MG tablet,delayed release (DR/EC) 40 mg PO DAILY sulfasalazine 500 mg tablet,delayed release (DR/EC) 1,000 mg PO BID methotrexate sodium 25 mg/mL solution 18.75 mg subcut QWEEK Rx Instructions: Pt takes every Friday tramadol 50 mg tablet 50 - 100 mg PO Q6H PRN PRN (Reason: pain) metoprolol tartrate 50 mg tablet See Rx Instructions .ROUTE .COMPLEX Qty: 180 3RF Dose Instruction: TAKE 1 TABLET TWICE A DAY Rx Instructions: TAKE 1 TABLET TWICE A DAY Referrals / Follow Up: Jd Lozano MD [Primary Care Provider] - (Please call the office to schedule an appt. ) Disposition Disposition (needs filled in before D/C Order can be placed): Home, Self Care Charges/Coding Visit Charges Inpatient E&M: 84748 Disch Hosp >30min
--- NOTE | 2023-07-31 12:30 | CASEMGMT ---
Patient has order for discharge. Patient discharging on Eliquis, SKIP VIVAS called [facility] retail pharmacy to inquire about copay. Cost is $173.24 and Eliquis 30 free trial card applied. RN CM updated patient regarding copay and savings card applied. RN CM discuss needs at discharge. Patient denies needs or help at discharge. Patient denies needs or help at discharge.
--- NOTE | 2023-07-31 14:37 | PHA.DC_ITS ---
Pharmacy [facility] has performed discharge medication reconciliation and counseling for this patient. The patient's discharge medication list was reviewed for discrepancies and discrepancies were resolved. The patient was counseled on the following discharge medications and changes in medications for homegoing were reviewed. 1. ELIQUIS The Reason for Use, instructions for use, and potential side effects were reviewed for all new medications. The patient's questions regarding all of their medications were answered. The patient was able to verbally demonstrate an understanding of their discharge medications. Medications at Discharge Home Medications hydroxychloroquine 200 mg tablet 200 mg PO BIDCM 09/18/13 pantoprazole 40 mg tablet,delayed release 40 mg PO DAILY 02/26/19 famotidine 20 mg tablet 20 mg PO BID 11/08/21 blood pressure monitor #1 ea 11/08/22 leucovorin calcium 15 mg tablet 15 mg PO QWEEK counteract the methotrexate 11/08/22 prednisone 2.5 mg tablet 2.5 mg PO DAILY 11/08/22 metoprolol tartrate 50 mg tablet See Rx Instructions .Route .COMPLEX #180 tabs 04/09/23 methotrexate sodium 25 mg/mL injection solution 18.75 mg subcut QWEEK arthritis 07/28/23 sulfasalazine 500 mg tablet,delayed release 1,000 mg PO BID 07/28/23 tramadol 50 mg tablet 50 - 100 mg PO Q6H PRN PRN pain 07/28/23 apixaban 5 mg tablet (Eliquis) 5 mg PO BID 30 days #72 tabs 07/31/23
[2023-07-31 14:42] VITALS: BP 150/62; PULSE 84; RESP 12; TEMP 36.6; O2SAT 98
== END 2023-07-31 14:50 | disposition home or self-care (01) | DRG 175 ==
LOC: ED 13:42 → PCU 14:38
PROVIDERS: Admitting Provider Family Medicine; Emergency Provider Emergency Medicine; PCP Family Medicine; Visit Provider Hospitalist
DX: I26.09 Other pulmonary embolism with acute cor pulmonale (principal); I24.89 Other forms of acute ischemic heart disease; I82.412 Acute embolism and thrombosis of left femoral vein; I82.442 Acute embolism and thrombosis of left tibial vein; I82.452 Acute embolism and thrombosis of left peroneal vein; J44.9 Chronic obstructive pulmonary disease, unspecified; M06.9 Rheumatoid arthritis, unspecified; D50.9 Iron deficiency anemia, unspecified; I10 Essential (primary) hypertension; K21.9 Gastro-esophageal reflux disease without esophagitis; W19.XXXD Unspecified fall, subsequent encounter; E66.9 Obesity, unspecified; S82.002D Unspecified fracture of left patella, subsequent encounter for closed fracture with routine healing; S82.892D Other fracture of left lower leg, subsequent encounter for closed fracture with routine healing; Z79.899 Other long term (current) drug therapy; Z86.73 Personal history of transient ischemic attack (TIA), and cerebral infarction without residual deficits; Z87.891 Personal history of nicotine dependence; Z68.34 Body mass index [BMI] 34.0-34.9, adult
CPT/HCPCS: 36415; 71275; 74177; 80048; 80053; 80061; 83735; 83880; 84484; 85025; 85027; 85610; 85730; 93005; 93306; 93970; 93978; 94640; 94668; 97110; 97161; 97802; 99285; J7030; Q9957; Q9967; A4216; C8929; J2405

== ENCOUNTER → 2023-08-12 | Outpatient (CLI) | payer MEDICARE, OTHER, SELFPAY ==
--- NOTE | 2023-08-12 09:50 | VDLE_ITS ---
Reason For Study: LLE SWELLING Procedure LEFT This is a venous duplex using B-mode, color GSV is normal. flow and spectral Doppler. CFV is compressible, spontaneous, phasic, Exam performed in department. competent, and demonstrates normal The study was technically difficult. augmentation. A preliminary report was called and/or faxed FV, T/P TRUNK, POP V, ARE PARTIALLY to Glenna SIMPSON @ [phone]. COMPRESSIBLE. PTV/PERV NONCOPRESSIBLE & difficult to visualize. VL/Venous Duplex US, Unilateral Interpretation Summary Subacute deep vein thrombosis is noted in the left femoral vein, popliteal vein , tibioperoneal trunk vein. Acute deep vein thrombosis noted in the left posterior tibial vein, peroneal ve in. Poorly visualized. Ordering Physician: Glenna Dave Referring Physician: Jd Lozano Performed By: Melody Ridley, RDCS, RVT
== END | disposition home or self-care (01) ==
LOC: CVS 09:49
PROVIDERS: PCP Family Medicine; Referring Provider Physician Assistant; Visit Provider Physician Assistant
DX: I82.402 Acute embolism and thrombosis of unspecified deep veins of left lower extremity (principal); M79.89 Other specified soft tissue disorders
CPT/HCPCS: 93971

== ENCOUNTER → 2023-08-14 | Outpatient (CLI) | payer MEDICARE, OTHER, SELFPAY ==
[2023-08-14 13:45] LABS: Absolute Neutrophil Count 3.9 X10^3/uL (2.0-7.7); Basophil# 0.05 X10^3/uL; Eosinophil# 0.02 X10^3/uL; Eosinophils% 0.4 % (0-5); Hematocrit 37.5 % (37-47); Hemoglobin 11.3 g/dL (12.0-15.0); Lymphocyte % 13.5 % (19-41); Mean Corp Hgb Conc 30.1 g/dL (32-36); Mean Corpuscular Volume 89.5 fL (81-99); Mean Platelet Vol. 10.5 fl (6.2-12.0); Monocyte# 0.46 X10^3/uL; Monocyte% 8.9 % (0-10); NRBC Flagged by Analyzer 0 % (0-5); Neutrophil # 3.94 X10^3/uL (2.7-7.7); Platelet Count 285 K/mm3 (150-450); RBC Distribution Width SD 48.7 fl (35.1-43.9); Red Blood Count 4.19 M/mm3 (4.2-5.4); White Blood Count 5.2 K/mm3 (4.4-11.0)
[2023-08-14 14:11] LABS: ALB/GLOB Ratio 0.6 RATIO (0.9-2.4); AST(SGOT) 16 U/L (15-37); Alanine Aminotransfer ALT/SGPT 11 U/L (13-56); Albumin, Serum 2.8 g/dL (3.2-5.0); Alkaline Phosphatase 66 U/L (45-117); Anion Gap 5 (5-15); BUN 12 mg/dL (7-18); BUN/Creat Ratio 12.9 RATIO (10-20); Calcium,Total 9.5 mg/dL (8.5-10.1); Chloride 103 mmol/L (98-107); Creatinine, Serum 0.93 mg/dL (0.55-1.02); EST Glomerular Filtration Rate 63 mL/min (>60); Est Glom Filt Rate - Afr Amer 77 mL/min (>60); Globulin 4.6 g/dL (2.2-4.2); Glucose 105 mg/dL (74-106); Potassium 4.1 mmol/L (3.5-5.1); Protein, Total 7.4 g/dL (6.4-8.2); Sodium Level 134 mmol/L (136-145)
== END | disposition home or self-care (01) ==
LOC: LAB 12:16
PROVIDERS: PCP Family Medicine; Referring Provider Internal Medicine Rheumatology; Visit Provider Internal Medicine Rheumatology
DX: M05.79 Rheumatoid arthritis with rheumatoid factor of multiple sites without organ or systems involvement (principal); M18.0 Bilateral primary osteoarthritis of first carpometacarpal joints; M47.897 Other spondylosis, lumbosacral region; I47.10 Supraventricular tachycardia, unspecified; I10 Essential (primary) hypertension; K21.9 Gastro-esophageal reflux disease without esophagitis; Z79.899 Other long term (current) drug therapy
CPT/HCPCS: 36415; 80053; 85025

== ENCOUNTER 2023-09-06 09:11 | Emergency (ER) | payer MEDICARE, OTHER, SELFPAY ==
[2023-09-06 09:12] VITALS: BP 130/60; PULSE 60; RESP 18; TEMP 36.4; O2SAT 100
[2023-09-06 09:42] VITALS: O2SAT 95
--- NOTE | 2023-09-06 09:42 | EKG12_ITS ---
Test Reason : SOB Blood Pressure : / mmHG Vent. Rate : 059 BPM Atrial Rate : 059 BPM P-R Int : 160 ms QRS Dur : 074 ms QT Int : 380 ms P-R-T Axes : 046 056 030 degrees QTc Int : 376 ms Sinus bradycardia with Premature supraventricular complexes Nonspecific ST and T wave abnormality Abnormal ECG Confirmed by Haider Parson ([id number]), art editor KAIDEN CALIXTO ([id number]) on 09/08/2023 8:16:14 AM Referred By: Confirmed By:Haider Parson
--- NOTE | 2023-09-06 09:42 | CT_ITS ---
We are attempting to reach an attending provider to discuss findings. An addendum with communication details will be sent when the communication is complete. STUDY: CTA CHEST REASON FOR EXAM: Female, 73 years old. Right sided pleuritic CP with PE hx RADIATION DOSAGE (If Supplied By Facility): CTDIvol = ( 12.42 ) mGy, DLP = ( 416.30 ) mGycm TECHNIQUE: The examination was performed with the intravenous administration of IV 100mL Isovue-370. Post-processing of the angiographic images was performed, with multiplanar reformation and 3D reconstruction. Individualized dose optimization techniques were used for this CT. COMPARISON: July 28, 2023 FINDINGS: Normal enhancement of the main pulmonary artery and right and left pulmonary arteries. There are small defects involving third and fourth order branches of left pulmonary arteries consistent with pulmonary embolism. There is atherosclerotic calcification of the aortic arch with tortuosity. There is no demonstrated aortic dissection. There are calcifications of the coronary arteries. The right ventricle to the left ventricle ratio is 0.9. Normal mediastinum. Normal hilar regions. Normal visualized trachea and bronchi. The lungs are well expanded. There is stable 0.5 cm benign-appearing right upper lobe nodule. There is mild left upper lobe atelectasis. Normal pleura. Normal chest wall structures. There are degenerative changes of thoracic spine. There is increased kyphosis of the thoracic spine. There is a solitary gallstone. CT/CTA Chest W/WO Contrast IMPRESSION: Abnormal CTA chest examination, with left pulmonary embolism, improved compared to the prior exam. Electronically Signed: Bryan Tucker MD at 11:18 EDT ,
--- NOTE | 2023-09-06 09:43 | EDS_ITS ---
HPI History of Present Illness Chief Complaint: Shortness of Breath Detail of Chief Complaint: Right lung pain. Informant: patient Onset/Context/Timing Onset: Today and Yesterday Context: gradual Timing: Continuous Current Severity: Mild Maximum Severity: Mild Worsened by: other (Deep breathing.) Relieved by: Nothing Associated Symptoms Negative for cough Chest Pain: Positive for Sharp, Stabbing and - (Right-sided worse with deep breathing. 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 Was hospitalized in mid July here. She has been on Eliquis 5 mg twice daily. States last time today has had right-sided pleuritic chest pain. No significant shortness of breath. No hemoptysis. No leg swelling that is new. PE Risk Factors: Positive for Prior DVT or PE and Recent immobilization; Negative for Cancer, OCP + Smoking + > 35, Recent surgery or Recent travel Prior similar symptoms: Yes Recent Illness/Hospitalization: Yes [facility] Medical History Anxiety and depression Schizophrenia Rheumatoid arthritis Former smoker Pulmonary embolism Transient ischemic attack Paroxysmal supraventricular tachycardia Iron deficiency anemia Obesity (BMI 30-39.9) GERD (gastroesophageal reflux disease) COPD (chronic obstructive pulmonary disease) Home Medications ?Medication ?Instructions ?Recorded ?Last Taken ?Type hydroxychloroquine 200 mg tablet 200 mg PO BIDCM 09/18/13 09/17/13 20:00 History pantoprazole 40 mg tablet,delayed 40 mg PO DAILY 02/26/19 07/28/23 History release famotidine 20 mg tablet 20 mg PO BID 11/08/21 07/28/23 History blood pressure monitor #1 ea 11/08/22 Unknown Rx leucovorin calcium 15 mg tablet 15 mg PO QWEEK counteract the 11/08/22 07/24/23 History methotrexate prednisone 2.5 mg tablet 2.5 mg PO DAILY 11/08/22 07/28/23 History metoprolol tartrate 50 mg tablet See Rx Instructions .Route 04/09/23 07/28/23 Rx .COMPLEX #180 tabs methotrexate sodium 25 mg/mL 18.75 mg subcut QWEEK arthritis 07/28/23 07/23/23 History injection solution sulfasalazine 500 mg 1,000 mg PO BID 07/28/23 07/28/23 History tablet,delayed release tramadol 50 mg tablet 50 - 100 mg PO Q6H PRN PRN pain 07/28/23 Unknown History apixaban 5 mg tablet (Eliquis) 5 mg PO BID 30 days #60 tabs 08/12/23 Unknown Rx Allergy/AdvReac Type Severity Reaction Status Date / Time doxycycline AdvReac PT UNSURE Verified 09/06/23 09:14 OF REACTION Family History Mother Breast cancer Surgical History History of radiofrequency ablation procedure for cardiac arrhythmia (03/2003) H/O tubal ligation History of knee surgery History of breast lump removal History of foot surgery Social History household members: none Smoking Status: Former smoker how long ago did patient quit smoking: Quit 15 yrs prior, smoked 2 ppd since 22 yrs old until quit. alcohol intake: never substance use type: does not use ROS ROS ED ROS Narrative Right-sided chest pain. Worse with deep inspiration. Review of Systems ROS Unobtainable: Denies due to encephalopathy Constitutional Constitutional ED: Denies chills or fever(s) Eyes Eyes: Denies blurry vision ENT ENT ED: Denies ear pain Cardiovascular Cardiovascular: Reports chest pain; Denies palpitations Respiratory/Chest Respiratory/Chest: Denies cough Gastrointestinal Gastrointestinal: Denies abdominal pain Genitourinary Genitourinary ED: Denies dysuria or hematuria Musculoskeletal Musculoskeletal: Denies arthralgias Integumentary Denies abscess or Abrasions Neurologic Neurologic: Denies headache(s) Psychiatric Psychiatric: Denies anxiety or depression Endocrine Endocrinology: Denies cold intolerance Hematologic/Lymphatic Hematologic/Lymphatic: Denies easy bleeding, easy bruising or lymphadenopathy Allergic/Immunologic Allergic/Immunologic ED: Denies mouth swelling, tongue swelling, urticaria or other EXAM Physical Exam Narrative Exam Narrative: 73-year-old female no acute distress vital signs stable afebrile. Pulse ox 100% on room air no hypoxia. HEENT exam unremarkable. Neck nontender. No JVD. Lungs clear to auscultation bilaterally. Heart regular rhythm rate about 60 no murmur. Chest wall and ribs nontender. Abdomen soft nontender. Back nontender. Moving all 4 extremities. 5 of 5 umbrella finisher strength. Dorsi planta rflexion intact. Calves are nontender without edema or cords. Equal symmetrical radial pulses. Neurologically she is awake and alert no focal motor deficits. Const Vital Signs: 09/06/23 09:12 09/06/23 09:42 09/06/23 09:42 Temperature 97.6 F L Temperature Source Temporal Pulse Rate 60 Respiratory Rate 18 Respiratory Effort Normal Non-Labored Respiratory Depth Normal Respiratory Pattern Normal Blood Pressure 130/60 H Blood Pressure Mean 83 Pulse Ox 100 95 Oxygen Delivery Method Room Air Room Air Room Air 09/06/23 10:11 09/06/23 10:35 Temperature 97.8 F Temperature Source Temporal Pulse Rate 60 60 Respiratory Rate 14 21 H Respiratory Effort Respiratory Depth Respiratory Pattern Blood Pressure 134/68 H 134/68 H Blood Pressure Mean 90 90 Pulse Ox 100 100 Oxygen Delivery Method Room Air Positive well nourished and well developed; Negative for cachectic, contractures or unkempt General Appearance ED: well developed and NAD; Negative for unkempt, cachectic, contractures or pallor Nutritional Appearance: Negative for cachectic HEENT Reports moist mucous membranes; Denies dry mucous membranes atraumatic; Negative for trauma or tenderness Mouth ED: No dry mucous membranes Mouth: No dry mucous membranes Eyes PERRL and EOMs intact bilaterally General Eye ED: Negative for pale conjunctiva or scleral icterus Neck no lymphadenopathy, supple, no meningeal signs and no JVD General: Negative for tenderness Lymph Lymphatic: Negative for other Chest Wall Chest: Negative for other Resp normal respiratory effort and clear to auscultation bilaterally Effort and Inspection: Negative for pain with movement Auscultation: Negative for rales, rhonchi, wheezes or diminished lung sounds Cardio regular rate, regular rhythm, S1 normal heart sound, S2 normal heart sound and no murmurs Rate: Negative for bradycardia or tachycardic Rhythm: Negative for abnormal rhythm GI non-tender, non-distended and no masses Inspection: Negative for other Auscultation: normoactive bowel sounds Palpation: soft; Negative for tender, guarding or rebound tenderness present Back/Spine no CVA tenderness and normal to inspection General Back: Negative for CVA tenderness or tenderness Extremity normal to inspection General Extremety ED: Negative for edema or tenderness General Extremity: Negative for edema Neuro oriented x3 and CN's II-XII intact bilaterally Sensorium / Orientation: alert, oriented to person and oriented to time; Negative for orientation impaired, confused, lethargic or stuporous Motor Exam: strength 5/5 throughout Psych mental status grossly normal Appearance: Negative for unkempt Attitude: No agitated and No other Mood & Affect: Negative for depressed, anxious or tearful Thought Process: normal thought process Skin no wounds and skin turgor normal General Skin Exam: Negative for jaundice or pallor Lesions: no lesions Rashes: no rashes Trauma: Negative for abrasion or laceration MDM MDM MDM Narrative Medical decision making narrative: 73-year-old female prior history of DVT and PE 1 month ago brought on by leg fractures and immobilization. Currently on Eliquis. Today having right-sided pleuritic chest pain. CAT scan labs are pending. Not reproducible. I do not feel this is cardiac. Repeat exam patient doing well. We went over her test results and CAT scan results. She does have reproducible parasternal pain on the right this may be musculoskeletal. She be discharged home. Continue taking her Eliquis. Tylenol for pain. History & Record Review Discussion w/independent historian: Patient Additional record(s) reviewed:: Prior inpatient record, Prior outpatient record, Prior ED visit and Prior labs Lab Data Attestation: I reviewed the patient's lab results. Lab results narrative: CBC showed a white count of 7.5. H&H 11.1 and 37.2. Platelet count 248 consistent with prior. Electrolytes show gap 6. Normal BUN and creatinine. Glucose 111. CT of the chest per radiology shows left-sided clot but no new or changed right- sided clots. These most likely are residual clots from the prior on the left. Patient is already on Eliquis. She will be discharged home. Labs: Laboratory Results - last 24 hr 09/06/23 09:50 WBC 7.5 RBC 4.11 L Hgb 11.1 L Hct 37.2 MCV 90.5 MCH 27.0 MCHC 29.8 L RDW Std Deviation 51.8 H RDW Coeff of Samson 15.9 H Plt Count 248 MPV 9.9 Immature Gran % (Auto) 0.500 Neut % (Auto) 77.7 H Lymph % (Auto) 11.3 L Rapides % (Auto) 9.5 Eos % (Auto) 0.5 Baso % (Auto) 0.5 Absolute Neuts (auto) 5.8 Absolute Lymphs (auto) 0.85 Nucleated RBC % 0 Sodium 137 Potassium 4.6 Chloride 106 Carbon Dioxide 25.0 Anion Gap 6 BUN 11 Creatinine 0.96 Est GFR (MDRD) Af Amer 73 Est GFR (MDRD) Non-Af 61 BUN/Creatinine Ratio 11.4 Glucose 111 H Calcium 9.8 Radiography Diagnostic Testing: Clinical Impression(s) from Imaging Studies Chest CTA 09/06/23 09:42 IMPRESSION: Abnormal CTA chest examination, with left pulmonary embolism, improved compared to the prior exam. Electronically Signed: Bryan Tucker MD at 11:18 EDT , ADDENDUM: 09/06/23 1134 IMPRESSION: Abnormal CTA chest examination, with left pulmonary embolism, improved compared to the prior exam. N.B. : The above Results were Read Back by Bryan Tucker MD to Dale Durant MD, and understanding confirmed on 09/06/2023 11:27:30 (ET). Electronically Signed: Bryan Tucker MD at 11:18 EDT , Rhythm Strip Rhythm Strip: Sinus Rhythm Rate: 59 Ectopy: None EKG Initial EKG: Interpretation: Sinus Rhythm and No Acute Injury Pattern Comments: Normal sinus rhythm rate of 59 no acute signs of FL or ischemia. Discharge Plan Triage Chief Complaint: Shortness of Breath ED Provider: Dale Durant Dx/Rx/DC Orders Clinical Impression: Chest pain, Acute chest wall pain, Hx pulmonary embolism, Chronic anticoagulation Instructions: ED Chest Pain, Uncertain Cause Prescriptions: No Action famotidine 20 mg tablet 20 mg PO BID leucovorin calcium 15 mg tablet 15 mg PO QWEEK Rx Instructions: Pt takes every prednisone 2.5 mg tablet 2.5 mg PO DAILY (DME) blood pressure monitor Kit See Rx Instructions .Route Qty: 1 0RF Rx Instructions: As directed Eliquis 5 mg tablet 5 mg PO BID 30 Days Qty: 60 5RF hydroxychloroquine 200 MG tablet 200 mg PO BIDCM Patient Comments: mental health pantoprazole 40 MG tablet,delayed release (DR/EC) 40 mg PO DAILY sulfasalazine 500 mg tablet,delayed release (DR/EC) 1,000 mg PO BID methotrexate sodium 25 mg/mL solution 18.75 mg subcut QWEEK Rx Instructions: Pt takes every Friday tramadol 50 mg tablet 50 - 100 mg PO Q6H PRN PRN (Reason: pain) metoprolol tartrate 50 mg tablet See Rx Instructions .ROUTE .COMPLEX Qty: 180 3RF Dose Instruction: TAKE 1 TABLET TWICE A DAY Rx Instructions: TAKE 1 TABLET TWICE A DAY Primary Care Provider: Jd Lozano Referrals: Jd Lozano MD [Primary Care Provider] - As Needed Activity Restrictions/Additional Instructions: Tylenol for pain. Follow-up with your doctor as needed. This may be chest wall pain. Ice to your right chest wall. They saw old blood clots on the left but no new or changed on the right. Continue your anticoagulation medication as prescribed. Print Language: Yakut Disposition Disposition: Home, Self Care
[2023-09-06 10:04] LABS: Absolute Lymphocyte Count 0.85 X10^3/uL (0.83-4.51); Absolute Neutrophil Count 5.8 X10^3/uL (2.0-7.7); Basophil# 0.04 X10^3/uL; Basophil% 0.5 % (0-1); Eosinophil# 0.04 X10^3/uL; Eosinophils% 0.5 % (0-5); Hematocrit 37.2 % (37-47); Hemoglobin 11.1 g/dL (12.0-15.0); Lymphocyte # 0.85 X10^3/ul (0.83-4.51); Lymphocyte % 11.3 % (19-41); Mean Corp Hgb Conc 29.8 g/dL (32-36); Mean Corpuscular Volume 90.5 fL (81-99); Mean Platelet Vol. 9.9 fl (6.2-12.0); Monocyte# 0.71 X10^3/uL; Monocyte% 9.5 % (0-10); NRBC Flagged by Analyzer 0 % (0-5); Neutrophil # 5.83 X10^3/uL (2.7-7.7); Neutrophil % 77.7 % (47-70); Platelet Count 248 K/mm3 (150-450); RBC Distribution Width CV 15.9 % (11.6-14.6); RBC Distribution Width SD 51.8 fl (35.1-43.9); Red Blood Count 4.11 M/mm3 (4.2-5.4); White Blood Count 7.5 K/mm3 (4.4-11.0)
[2023-09-06 10:11] VITALS: BP 134/68; PULSE 60; RESP 14; O2SAT 100
[2023-09-06 10:11] LABS: Anion Gap 6 (5-15); BUN 11 mg/dL (7-18); BUN/Creat Ratio 11.4 RATIO (10-20); Calcium,Total 9.8 mg/dL (8.5-10.1); Chloride 106 mmol/L (98-107); Creatinine, Serum 0.96 mg/dL (0.55-1.02); EST Glomerular Filtration Rate 61 mL/min (>60); Est Glom Filt Rate - Afr Amer 73 mL/min (>60); Glucose 111 mg/dL (74-106); Potassium 4.6 mmol/L (3.5-5.1); Sodium Level 137 mmol/L (136-145)
[2023-09-06 10:35] VITALS: BP 134/68; PULSE 60; RESP 21; TEMP 36.6; O2SAT 100
[2023-09-06 11:58] VITALS: BP 136/74; PULSE 67; RESP 18; TEMP 36.6; O2SAT 100
== END 2023-09-06 11:59 | disposition home or self-care (01) ==
PROVIDERS: Emergency Provider Emergency Medicine; PCP Family Medicine; Visit Provider Emergency Medicine
DX: R07.89 Other chest pain (principal); J44.9 Chronic obstructive pulmonary disease, unspecified; Z86.711 Personal history of pulmonary embolism; Z79.01 Long term (current) use of anticoagulants; Z87.891 Personal history of nicotine dependence; Z86.718 Personal history of other venous thrombosis and embolism; Z86.73 Personal history of transient ischemic attack (TIA), and cerebral infarction without residual deficits
CPT/HCPCS: 71275; 80048; 85025; 93005; 99283; Q9967; A4216

== ENCOUNTER → 2023-10-27 | Outpatient (CLI) | payer MEDICARE, OTHER, SELFPAY ==
[2023-10-27 12:04] LABS: Absolute Lymphocyte Count 1.53 X10^3/uL (0.83-4.51); Absolute Neutrophil Count 3.3 X10^3/uL (2.0-7.7); Basophil# 0.06 X10^3/uL; Basophil% 1.1 % (0-1); Eosinophil# 0.06 X10^3/uL; Eosinophils% 1.1 % (0-5); Hematocrit 34.5 % (37-47); Hemoglobin 10.2 g/dL (12.0-15.0); Lymphocyte # 1.53 X10^3/ul (0.83-4.51); Lymphocyte % 27.9 % (19-41); Mean Corp Hgb Conc 29.6 g/dL (32-36); Mean Corpuscular Hgb 27.5 pg (27.0-32.0); Monocyte# 0.51 X10^3/uL; Monocyte% 9.3 % (0-10); NRBC Flagged by Analyzer 0 % (0-5); Neutrophil # 3.31 X10^3/uL (2.7-7.7); Neutrophil % 60.2 % (47-70); Platelet Count 265 K/mm3 (150-450); RBC Distribution Width CV 15.9 % (11.6-14.6); RBC Distribution Width SD 52.8 fl (35.1-43.9); Red Blood Count 3.71 M/mm3 (4.2-5.4); White Blood Count 5.5 K/mm3 (4.4-11.0)
[2023-10-27 12:29] LABS: Vitamin B12 261 pg/mL (211-911)
[2023-10-27 13:23] LABS: Ferritin 31 ng/mL (8-252); Free T3 2.6 pg/mL (2.18-3.98); T4 Free Direct 1.15 ng/dL (0.76-1.46); Thyroid Stim Hormone (TSH) 3.44 uIU/mL (0.358-3.74)
[2023-10-28 12:09] LABS: PROEL- Alpha-1 Globulin 0.3 g/dL (0.0-0.4); PROEL- Alpha-2 Globulin 0.9 g/dL (0.4-1.0); PROEL- Beta Globulin 0.9 g/dL (0.7-1.3); PROEL- Gamma Globulin 1.1 g/dL (0.4-1.8); PROEL- Globulin, Total 3.1 g/dL (2.2-3.9); PROEL- TOTAL PROTEIN 6.1 g/dL (6.0-8.5); PROEL-M-Spike Not Observed g/dL (Not Observed)
== END | disposition home or self-care (01) ==
LOC: MTLAB 09:05
PROVIDERS: PCP Family Medicine; Referring Provider Family Medicine; Visit Provider Family Medicine
DX: M06.9 Rheumatoid arthritis, unspecified (principal); D64.9 Anemia, unspecified; R63.4 Abnormal weight loss
CPT/HCPCS: 36415; 82607; 82728; 82746; 84165; 84439; 84443; 84481; 85025; 86140; 86431

== ENCOUNTER → 2023-11-12 | Outpatient (CLI) | payer MEDICARE, OTHER, SELFPAY ==
[2023-11-12 10:17] LABS: Absolute Lymphocyte Count 1.37 X10^3/uL (0.83-4.51); Basophil# 0.03 X10^3/uL; Basophil% 0.6 % (0-1); Eosinophil# 0.09 X10^3/uL; Eosinophils% 1.8 % (0-5); Hematocrit 34.2 % (37-47); Hemoglobin 10.2 g/dL (12.0-15.0); Lymphocyte # 1.37 X10^3/ul (0.83-4.51); Lymphocyte % 26.8 % (19-41); Mean Corp Hgb Conc 29.8 g/dL (32-36); Mean Corpuscular Hgb 27.3 pg (27.0-32.0); Mean Corpuscular Volume 91.4 fL (81-99); Mean Platelet Vol. 10.4 fl (6.2-12.0); Monocyte# 0.58 X10^3/uL; Monocyte% 11.3 % (0-10); NRBC Flagged by Analyzer 0 % (0-5); Neutrophil # 3.03 X10^3/uL (2.7-7.7); Neutrophil % 59.1 % (47-70); Platelet Count 255 K/mm3 (150-450); RBC Distribution Width CV 16.2 % (11.6-14.6); Red Blood Count 3.74 M/mm3 (4.2-5.4); White Blood Count 5.1 K/mm3 (4.4-11.0)
[2023-11-12 10:40] LABS: ALB/GLOB Ratio 0.7 RATIO (0.9-2.4); AST(SGOT) 15 U/L (15-37); Alanine Aminotransfer ALT/SGPT 14 U/L (13-56); Albumin, Serum 2.8 g/dL (3.2-5.0); Alkaline Phosphatase 75 U/L (45-117); Anion Gap 5 (5-15); BUN 14 mg/dL (7-18); BUN/Creat Ratio 16.8 RATIO (10-20); Calcium,Total 8.9 mg/dL (8.5-10.1); Chloride 110 mmol/L (98-107); Creatinine, Serum 0.83 mg/dL (0.55-1.02); EST Glomerular Filtration Rate 72 mL/min (>60); Est Glom Filt Rate - Afr Amer 87 mL/min (>60); Globulin 3.8 g/dL (2.2-4.2); Glucose 93 mg/dL (74-106); Potassium 3.9 mmol/L (3.5-5.1); Protein, Total 6.6 g/dL (6.4-8.2); Sodium Level 140 mmol/L (136-145)
== END | disposition home or self-care (01) ==
LOC: MTLAB 08:59
PROVIDERS: PCP Family Medicine; Referring Provider Internal Medicine Rheumatology; Visit Provider Internal Medicine Rheumatology
DX: M05.79 Rheumatoid arthritis with rheumatoid factor of multiple sites without organ or systems involvement (principal); M18.0 Bilateral primary osteoarthritis of first carpometacarpal joints; M47.897 Other spondylosis, lumbosacral region; I47.10 Supraventricular tachycardia, unspecified; I10 Essential (primary) hypertension; K21.9 Gastro-esophageal reflux disease without esophagitis; Z79.899 Other long term (current) drug therapy
CPT/HCPCS: 36415; 80053; 85025

== ENCOUNTER → 2023-11-18 | Outpatient (CLI) | payer MEDICARE, OTHER, SELFPAY ==
--- NOTE | 2023-11-18 13:47 | CT_ITS ---
STUDY: CT CHEST WITH CONTRAST REASON FOR EXAM: Female, 73 years old. New restrosternal nodule RADIATION DOSAGE (If Supplied By Facility): CTDIvol = ( 13.01 ) mGy, DLP = ( 483.80 ) mGycm TECHNIQUE: Transaxial imaging was performed following intravenous administration of IV 100mL Isovue-370. Individualized dose optimization techniques were used for this CT. COMPARISON: Comparison is made with prior examination dated July 11, 2021 and September 06, 2023.. FINDINGS: CHEST Stable small benign-appearing bilateral axillary lymph nodes. Stable apical scarring bilaterally. 4 mm noncalcified nodule in the right lung apex. This has decreased in size as compared to prior study. There is no demonstrated pleural abnormality. There are calcifications of the coronary arteries. There are small lymph nodes within the mediastinum, which are normal in size and morphology most compatible with reactive lymph hyperplasia. Normal hilar regions. Normal unenhanced pulmonary arteries. Normal aorta arch and descending thoracic aorta. There are multi-level degenerative changes of the thoracic spine. Small hiatal hernia. Gallstones. CT/Chest WITH Contrast IMPRESSION: Essentially stable examination. Electronically Signed: Craig Lindo MD at 13:26 EDT ,
== END | disposition home or self-care (01) ==
LOC: CT 13:46
PROVIDERS: PCP Family Medicine; Referring Provider Family Medicine; Visit Provider Family Medicine
DX: R93.89 Abnormal findings on diagnostic imaging of other specified body structures (principal)
CPT/HCPCS: 71260; Q9967

== ENCOUNTER → 2024-02-03 | Outpatient (CLI) | payer MEDICARE, OTHER, SELFPAY ==
[2024-02-03 10:03] LABS: Absolute Lymphocyte Count 1.05 X10^3/uL (0.83-4.51); Absolute Neutrophil Count 3.5 X10^3/uL (2.0-7.7); Basophil# 0.02 X10^3/uL; Basophil% 0.4 % (0-1); Eosinophil# 0.09 X10^3/uL; Eosinophils% 1.7 % (0-5); Hemoglobin 10.5 g/dL (12.0-15.0); Lymphocyte # 1.05 X10^3/ul (0.83-4.51); Mean Corpuscular Hgb 27.2 pg (27.0-32.0); Mean Corpuscular Volume 90.7 fL (81-99); Mean Platelet Vol. 10.4 fl (6.2-12.0); Monocyte# 0.54 X10^3/uL; Monocyte% 10.3 % (0-10); NRBC Flagged by Analyzer 0 % (0-5); Neutrophil # 3.54 X10^3/uL (2.7-7.7); Neutrophil % 67.4 % (47-70); Platelet Count 220 K/mm3 (150-450); RBC Distribution Width CV 15.4 % (11.6-14.6); RBC Distribution Width SD 50.1 fl (35.1-43.9); Red Blood Count 3.86 M/mm3 (4.2-5.4); White Blood Count 5.3 K/mm3 (4.4-11.0)
[2024-02-03 10:25] LABS: ALB/GLOB Ratio 0.8 RATIO (0.9-2.4); AST(SGOT) 16 U/L (15-37); Alanine Aminotransfer ALT/SGPT 12 U/L (13-56); Albumin, Serum 3.1 g/dL (3.2-5.0); Alkaline Phosphatase 83 U/L (45-117); Anion Gap 5 (5-15); BUN 13 mg/dL (7-18); BUN/Creat Ratio 15.6 RATIO (10-20); Calcium,Total 9.2 mg/dL (8.5-10.1); Chloride 110 mmol/L (98-107); Creatinine, Serum 0.84 mg/dL (0.55-1.02); EST Glomerular Filtration Rate 71 mL/min (>60); Est Glom Filt Rate - Afr Amer 86 mL/min (>60); Globulin 3.8 g/dL (2.2-4.2); Glucose 99 mg/dL (74-106); Potassium 3.8 mmol/L (3.5-5.1); Protein, Total 6.9 g/dL (6.4-8.2); Sodium Level 141 mmol/L (136-145)
== END | disposition home or self-care (01) ==
LOC: MTLAB 08:50
PROVIDERS: PCP Family Medicine; Referring Provider Internal Medicine Rheumatology; Visit Provider Internal Medicine Rheumatology
DX: M05.79 Rheumatoid arthritis with rheumatoid factor of multiple sites without organ or systems involvement (principal); M18.0 Bilateral primary osteoarthritis of first carpometacarpal joints; Z79.899 Other long term (current) drug therapy
CPT/HCPCS: 36415; 80053; 85025

== ENCOUNTER → 2024-02-06 | Outpatient (CLI) | payer MEDICARE, OTHER, SELFPAY ==
--- NOTE | 2024-02-06 09:48 | VDLE_ITS ---
Reason For Study: HX DVT RIGHT LEFT CFV is compressible, spontaneous, phasic, GSV is normal. competent and demonstrates normal CFV is compressible, spontaneous, phasic, augmentation. competent, and demonstrates normal Procedure augmentation. This is a venous duplex using B-mode, color FV is compressible, spontaneous, phasic, flow and spectral Doppler. competent and demonstrates normal Exam performed in department. augmentation. The exam was diagnostic. POP V is compressible, spontaneous, phasic, Compare to study from 08/12/2023. competent and demonstrates normal augmentation. T/P Trunk is compressible. PTV is compressible. LT PerV is compressible. VL/Venous Duplex US, Unilateral Interpretation Summary Deep veins of the left lower extremity are patent and compressible segmentally. There is no evidence of left lower extremity deep vein thrombosis. The left great saphenous vein yasmany ears patent and compressible segmentally. Ordering Physician: Glenna Dave Referring Physician: Jd Lozano MD Performed By: Garrick Lobo RVT
--- OUTSIDE RECORDS SUMMARY | 2024-02-06 10:12 | XMS RPT_ITS | CCD ---
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 Name Role Phone Sarahy RN, Nicole Hurd Unavailable Unavailable Aldair Lozanoia Y Unavailable MD Nitin, Mario S Unavailable SKIP Mehta, Kelly Zhong Unavailable Unavailabl ivan Weathers RN, Nicole Hurd Unavailable Unavailable Sarahy VALDIVIA, Nicole Hurd Unavailable Unavailable SKIP Mehta, Kelly Zhong Unavailable Unavailabl Ellie Gonzalez Y Unavailable Aldair Lozanoia Y Unavailable Maren Lozanoricia Y Unavailable Eric Lozano MD Primary Care Provider [phone] Eric Lozano MD Primary Care Provider Eric Lozano MD Primary Care Provider Eric Lozano MD Primary Care Provider Eric Lozano MD Primary Care Provider ERIC LOZANO Primary Care Unavailable YANDEL A Primary Care Unavailable MARS RUSSO Referring Unavailable YANDEL, A Primary Care Unavailable YANDEL, A Primary Care Unavailable KATHARINE VALENCIA Referring Unavailable YANDEL, A Primary Care Unavailable YANDEL A Primary Care Unavailable ALBERT HENDRICKS Referring Unavailable YANDEL, A Primary Care Unavailable MARS RUSSO Referring Unavailable ALBERT HENDRICKS Attending Unavailable Allergies Allergy Classification Reported Allergen(s) Allergy Type Date of Onset Reaction(s) Facility Amoxicillin / Clavulanate (1 source) Amoxicillin / Clavulanate Drug Allergy 6 GI Upset [facility] Doxycycline (1 source) Doxycycline Drug Allergy 2 Unknown [facility] (17 sources) Doxycycline; Translations: [DOXYCYCLINE] Drug Allergy 2 Unknown [facility] (12 sources) environmental [Other] Propensity to adverse reactions 7 [facility] Work Phone: (14 sources) Amoxicillin / Clavulanate; Translations: [AMOXICILLIN-POT CLAVULANATE] Drug Allergy 6 GI Upset [facility] (1 source) OTHER; Translations: [OTHER] Propensity to adverse reactions (disorder) 7 [facility] Repository Medications Current Medications Medication Drug Class(es) Dates Sig (Normalized) Sig (Original) [id number] actuat albuterol 0.09 mg/actuat metered dose inhaler (20 sources) beta2-Adrenergic Agonist Start: 10-13-2023 take 2 puff(s) by inhalation every four hours as needed for wheezing albuterol HFA (PROVENTIL HFA, VENTOLIN HFA) 90 mcg/actuation inhaler Inhale 2 Puffs as instructed every 4 hours as needed for wheezing/shortnes s of breath. 8 g 0 10/13/2023 Active Start: 09-14-2021 take 2 puff(s) by in halation every six hours as needed for wheezing albuterol HFA (PROVENTIL HFA, VENTOLIN HFA) 90 mcg/actuation inhaler Inhale 2 Puffs as instructed every 6 hours as needed for wheezing/shortness of breath. 1 Each 09/14/2021 Active Start: 10-16-2016 End: 10-16-2016 PROAIR HFA 108 (90 Base) MCG /ACT AERS as direceted ALBUTEROL SULFATE [id number] Mario Taveras MD Start: 10-16-2016 End: 10-16-2016 PROAIR HFA 108 (90 Base) MCG /ACT AERS as direceted ALBUTEROL SULFATE [id number] Mario Taveras MD Start: 10-16-2016 PROAIR HFA 108 (90 Base) MCG/ACT AERS as direceted ALBUTEROL SULFATE [id number] Kelly Mehta RN Comment on above: Inhale 2 Puffs as in structed every 6 hours as needed for wheezing/shortness of breath. amoxicillin 875 mg / clavulanate 125 mg oral tablet (1 source) Penicillin-class Antibacterial Start: End: take 1 tablet by mouth twice daily amoxicillin-clavula yvonne acid (AUGMENTIN) 875-125 mg per tablet Take 1 tablet by mouth twice daily for 10 days. 20 tablet 0 09/14/2021 09/24/2021 Active Comment on above: Take 1 tablet by [facility] twice daily for 10 days. apixaban 5 mg oral tablet (2 sources) Factor Xa Inhibitor Start: ELIQUIS 5 mg tab(s) 09/27/2023 Active azithromycin 250 mg oral tablet (3 sources) Macrolide Antimicrobial Start: End: azithromycin (ZITHROMAX Z-FERDINAND) 250 mg tablet Take 2 tablets day one, then, 1 tablet daily until gone. 6 tablet 0 10/13/2023 10/18/2023 Active Start: 12-23-2022 End: 12-28-2022 azithromycin (ZITHROMAX Z-PA K) 250 mg tablet Indications: Lower resp. tract infection Take 2 tablets day one, then, 1 tablet daily until gone. 6 tablet 0 12/23/2022 12/28/2022 Active Start: 04-13-2022 End: 04-18-2022 azithromycin (ZITHROMAX Z-PA K) 250 mg tablet Indications: Sinobronchitis Take 2 tablets day one, then, 1 tablet daily until gone. 6 tablet 0 04/13/2022 04/18/2022 Active Comment on above: Take 2 tablets day o ne, then, 1 tablet daily until gone. benzonatate 100 mg oral capsule (17 sources) Non-narcotic Antitussive Start: take 1 capsule by mouth every eight hours as needed benzonatate (TESSALON PERLES) 100 mg capsule Take 1 capsule by mouth three times daily as needed for cough. 12 capsule 09/26/2022 Active Start: 06-16-2021 End: 09-26-2022 take 2 capsules by mouth three times daily as needed for cough benzonatate (TESSALON PERLES) 100 mg capsule Indications: Sinobronchitis Take 2 capsules by mouth three times daily as needed for cough. 60 capsule 0 06/16/2021 09/26/2022 Discontinued (Course of therapy completed) Comment on above: Take 2 capsules by m outh three times daily as needed for cough. Take 1 capsule by mo ut three times daily as needed for cough. budesonide 0.032 mg/actuat metered dose nasal spray (18 sources) Corticosteroid Start: 03-20-2007 BUDESONIDE 32 MCG/ACTUATION NASAL SPRAY once spray each nostril once daily prn 0 03/20/2007 Active Start: 03-20-2007 BUDESONIDE 32 MCG/ACTUATION NASAL SPRAY once spray each nostril once daily prn 0 03/20/2007 Active Comment on above: once spray each nost ril once daily prn cephalexin 500 mg oral capsule (1 source) Cephalosporin Antibacterial Start: End: take 1 capsule by mouth three times daily cephALEXin (KEFLEX) 500 mg capsule Indications: Pain in salivary gland region Take 1 capsule by mouth three times daily for 7 days. 21 capsule 0 08/15/2022 08/22/2022 Active Comment on above: Take 1 capsule by mo [facility] three times daily for 7 days. famotidine 20 mg oral tablet (4 sources) Histamine-2 Receptor Antagonist Start: 023 famotidine (PEPCID) 20 mg tablet 01/27/2023 Active fexofenadine hydrochloride 180 mg oral tablet (18 sources) Histamine-1 Receptor Antagonist Start: fexofenadine hcl(PILLO 180 MG TAB) Take one(1) tablet daily. 0 03/20/2007 Active Comment on above: Take one(1) tablet d aily. folic acid 1 mg oral tablet (4 sources) take 1 tablet by mouth twice daily folic acid 1 mg tablet Take 1 mg by mouth two times a day. Active Comment on above: Take 1 mg by mouth t wo times a day. hydroxychloroquine sulfate 200 mg oral tablet (20 sources) Antirheumatic Agent Start: PLAQUENIL 200 MG TAB Take one(1) tablet twice daily. 0 07/22/2006 Active Comment on above: Take one(1) tablet t wice daily. Inhalational Spacing Device (2 sources) Start: 024 End: 024 Inhalational Spacing Device 1 Device one time only for 1 dose. 1 Each 0 10/13/2023 10/13/2023 Active Start: 09-14-2021 End: 09-14-2021 Inhalational Spacing Device 1 Device one time only for 1 dose. 1 Each 0 09/14/2021 09/14/2021 Active Comment on above: 1 Device one time on ly for 1 dose. 8 ml methotrexate 25 mg/ml injection (10 sources) Folate Analog Metabolic Inhibitor Start: 023 inject 0.5 mL by subcutaneous injection every week methotrexate, PF, 25 mg/mL soln Inject 1/2 milliliter(s) Subcutaneous once a week, single use vials, use and discard 09/10/2022 Active Comment on above: Inject 1/2 millilite r(s) Subcutaneous once a week, single use vials, use and discard metoprolol tartrate 100 mg oral tablet (20 sources) beta-Adrenergic Rigo Start: 007 End: 017 LOPRESSOR 100 MG TAB Take one(1) tablet twice daily. 0 07/22/2006 Active Comment on above: Take one(1) tablet t wice daily. pantoprazole (4 sources) Proton Pump Inhibitor pantoprazole sodium (PANTOPRAZOLE ORAL) Take by mouth. Active pantoprazole sod ium (PANTOPRAZOLE ORAL) Take by mouth. 0 Active Comment on above: Take by mouth. 100 ml potassium chloride 0.1 meq/ml injection (4 sources) potassium chlori de in water 10 mEq/100 mL Inject 10 mEq intravenously one time only. Active Comment on above: Inject 10 mEq intrav enously one time only. predniSONE 10 mg oral tablet (20 sources) Start: 10-13-2023 predniSONE (DELTASONE) 10 mg tablet Take 4 tabs daily for 3 days, then 2 tabs daily for 3 days, then 1 tab daily for 3 days with food. 21 tablet 0 10/13/2023 Active Start: 12-23-2022 End: 12-28-2022 take 2 tablets by mouth once daily predniSONE (DELTASONE) 20 mg tablet Indications: Lower resp. tract infection Take 2 tablets by mouth once daily for 5 days. 10 tablet 0 12/23/2022 12/28/2022 Active Start: 09-26-2022 End: 10-01-2022 take 4 tablets by mouth once daily predniSONE (DELTASONE) 10 mg tablet Take 4 tablets by mouth once daily for 5 days. 20 tablet 0 09/26/2022 10/01/2022 Active Start: 08-15-2022 End: 08-20-2022 take 2 tablets by mouth once daily predniSONE (DELTASONE) 20 mg tablet Indications: Pain in salivary gland region Take 2 tablets by mouth once daily for 5 days. 10 tablet 0 08/15/2022 08/20/2022 Active Start: 03-05-2022 predniSONE (DE LTASONE) 10 mg tablet 2.5 mg. 03/05/2022 Active Start: 03-05-2022 take 1 tablet by lilly once daily as needed predniSONE (DELTASONE) 10 mg tablet TAKE 1 TABLET BY MOUTH EVERY DAY NEEDED. Take for 3 - 5 days with a flare. 0 03/05/2022 Active Start: 09-14-2021 End: 09-19-2021 take 2 tablets by mouth once daily at mealtime predniSONE (DELTASONE) 20 mg tablet Take 2 tablets by mouth once daily for 5 days. Take daily with food. 10 tablet 0 09/14/2021 09/19/2021 Active Start: 05-30-2021 End: 09-14-2021 predniSONE (DELTASONE) 5 mg tablet TAKE 2 TABLETS TWICE DAILY for 4 days then take 2 tablets in the am and 1 tablet pm for 4 days then take 1 tablet TWICE DAILY for 4 days then TAKE 1 TABLET am and 1/2 tablet pm for 4 days then TAKE 1 TABLET am for 10 days then take 1/2 tablet am for 10 days 0 05/30/2021 09/14/2021 Discontinued Comment on above: TAKE 2 TABLETS TWICE DAILY for 4 days then take 2 tablets in the am and 1 tablet pm for 4 days then take 1 tablet TWICE DAILY for 4 days then TAKE 1 TABLET am and 1/2 tablet pm for 4 days then TAKE 1 TABLET am for 10 days then take 1/2 tablet am for 10 days Take 2 tablets by mo [facility] once daily for 5 days. Take daily with food. TAKE 1 TABLET BY LILLY EVERY DAY NEEDED. Take for 3 - 5 days with a flare. Take 2 tablets by mo [facility] once daily for 5 days. Take 4 tablets by [facility] once daily for 5 days. 2.5 mg. sulfaSALAzine 500 mg delayed release oral tablet (11 sources) Aminosalicylate Start: 06-19-2022 sulfaSALAzine EC (AZULFIDINE EN) 500 mg EC tablet 06/19/2022 Active Completed/Discontinued Medications Medication Drug Class(es) Dates Sig (Normalized) Sig (Original) acetaminophen 325 mg / HYDROcodone bitartrate 5 mg oral tablet (12 sources) Opioid Agonist Start: 10-16-2016 End: 10-16-2016 HYDROCODONE-ACETA MINOPHEN 5-325 MG TABS as directed HYDROCODONE-ACETA MINOPHEN [id number] Mario Taveras MD aspirin 81 mg delayed release oral tablet (20 sources) Nonsteroidal Anti-inflammatory Drug Start: 10-10-2016 End: 10-16-2016 take 1 tablet by mouth once daily ASPIRIN EC 81 MG TBEC One tablet by mouth daily ASPIRIN [id number] Nicole Weathers RN take 1 tablet by mouth once abraham y ASPIRIN 81 MG ORAL TABS One tablet by mouth daily ASPIRIN [id number] Vianey Reece LPN take 1 tablet by mouth once abraham y ASPIRIN 81 MG ORAL TABS One tablet by mouth daily ASPIRIN [id number] Vianey Reece LPN celecoxib 200 mg oral capsule (5 sources) Nonsteroidal Anti-inflammatory Drug Start: 10-16-2016 take 1 tablet by mouth once daily CELEBREX 200 MG CAPS One tablet by mouth daily CELECOXIB [id number] Mario Taveras MD cetirizine hydrochloride 10 mg oral tablet (20 sources) Histamine-1 Receptor Antagonist Start: 10-29-2010 End: 05-09-2014 take 1 tablet by mouth once daily ZYRTEC ALLERGY 10 MG TABS One tablet by mouth daily CETIRIZINE HCL [id number] Yara Narvaez ferrous gluconate (20 sources) End: 11-22-2014 take 1 tablet by mouth once daily IRON 240 (27 Fe) MG TABS One tablet by mouth daily FERROUS GLUCONATE [id number] Ana Hackett take 1 tablet by mouth once abraham y IRON 240 (27 Fe) MG TABS One tablet by mouth daily FERROUS GLUCONATE [id number] Vianey Reece LPN hydrOXYzine hydrochloride 25 mg oral tablet (5 sources) Antihistamine Start: 10-16-2016 HYDROXYZINE HC L 25 MG TABS (Atarax) As needed HYDROXYZINE HCL [id number] Mario Taveras MD ipratropium bromide 0.021 mg/actuat nasal spray (7 sources) Anticholinergic Start: 10-16-2016 IPRATROPIUM BR OMIDE 0.03 % SOLN Nasal spray as directed IPRATROPIUM BROMIDE [id number] Kelly Mehta RN LACTOBACILLUS CAPS (6 sources) Start: 10-16-2016 End: 10-16-2016 take 1 tablet by mouth once daily ACIDOPHILUS CAPS One tablet by mouth daily LACTOBACILLUS CAPS [id number] Mario Taveras MD Start: 10-16-2016 take 1 tablet by lilly th once daily ACIDOPHILUS CAPS One tablet by mouth daily LACTOBACILLUS CAPS [id number] Kelly Mehta RN LACTOBACILLUS CAPS (6 sources) Start: 10-16-2016 End: 10-16-2016 take 1 tablet by mouth once daily ACIDOPHILUS CAPS One tablet by mouth daily LACTOBACILLUS CAPS [id number] Mario Taveras MD Start: 10-16-2016 take 1 tablet by lilly th once daily ACIDOPHILUS CAPS One tablet by mouth daily LACTOBACILLUS CAPS [id number] Kelly Mehta RN LORazepam 0.5 mg oral tablet (20 sources) Benzodiazepine Start: 10-29-2010 End: 05-09-2014 take 1 tablet by mouth every six hours as needed LORAZEPAM 0.5 MG TABS 1 tablet by mouth Q6H as needed LORAZEPAM [id number] Yara Narvaez MOMETASONE FUROATE (20 sources) Corticosteroid Start: 10-29-2010 End: 05-09-2014 NASONEX 50 MCG/ACT SUSP Take as directed MOMETASONE FUROATE [id number] Vianey Reece LPN Start: 10-29-2010 End: 05-09-2014 NASONEX 50 MCG/ACT SUSP Take as directed MOMETASONE FUROATE [id number] Vianey Reece COOK RESTAURANT Start: 10-29-2010 NASONEX 50 MCG /ACT SUSP Take as directed MOMETASONE FUROATE [id number] Yara Narvaez omeprazole 20 mg delayed release oral capsule (20 sources) Proton Pump Inhibitor Start: 07-22-2006 End: 02-11-2023 PRILOSEC 20 MG CAP Take one(1) capsule twice daily. 0 07/22/2006 02/11/2023 Discontinued Comment on above: Take one(1) capsule twice daily. [id number] (16 sources) End: 10-16-2016 take 1 tablet by mouth once daily PRE- FORMULA TABS One tablet by mouth daily. [id number] Kelly Mehta RN take 1 tablet by mouth once abraham y PRE-CARSON FORMULA TABS One tablet by mouth daily. [id number] Sherice Gomez take 1 tablet by mouth once abraham y PRE- FORMULA TABS One tablet by mouth daily. [id number] Ana Hackett [id number] (11 sources) End: 10-16-2016 take 1 tablet by mouth once daily PRE- FORMULA TABS One tablet by mouth daily. [id number] Kelly Mehta RN take 1 tablet by mouth once abraham y PRE-CARSON FORMULA TABS One tablet by mouth daily. [id number] Sherice Gomez take 1 tablet by mouth once abraham y PRE-CARSON FORMULA TABS One tablet by mouth daily. [id number] Ana Hackett raNITIdine 300 mg oral capsule (15 sources) Histamine-2 Receptor Antagonist Start: 10-29-2010 End: 10-16-2016 take 1 tablet by mouth at bedtime RANITIDINE HCL 300 MG CAPS One tablet by mouth at bedtime RANITIDINE HCL [id number] Mario Taveras MD simvastatin 40 mg oral tablet (20 sources) HMG-CoA Reductase Inhibitor End: 11-22-2014 take 1 tablet by mouth once daily SIMVASTATIN 40 MG TABS One tablet by mouth daily SIMVASTATIN [id number] Ana Hackett traMADol hydrochloride 50 mg oral tablet (5 sources) Opioid Agonist Start: 10-16-2016 take 1 tablet by mouth twice daily as needed TRAMADOL HCL 50 MG TABS One tablet by mouth twice daily as needed TRAMADOL HCL [id number] Mario Taveras MD UMECLIDINIUM-VILANTE ROL (12 sources) Anticholinergic, beta2-Adrenergic Agonist Start: 10-16-2016 End: 10-16-2016 ANORO ELLIPTA 62.5-25 MCG/INH AEPB as direceted UMECLIDINIUM-HOLLAND NTEROL [id number] Mario Taveras MD Start: 10-16-2016 End: 10-16-2016 ANORO ELLIPTA 62.5-25 MCG/IN H AEPB as direceted UMECLIDINIUM-VILANTEROL [id number] Kelly Mehta RN Start: 10-16-2016 ANORO ELLIPTA 62.5-25 MCG/INH AEPB as direceted UMECLIDINIUM-VILANTEROL [id number] Kelly Mehta RN Problems Active Problems Problem Classification Problem Date Documented Date Episodic/Chronic Acquired foot deformities (18 sources) Acquired hallux malleus; Translations: [Other hammer toe(s) (acquired), unspecified foot] Onset: 05-26-2007 05-26-2007 Chronic Cardiac dysrhythmias (20 sources) Supraventricular tachycardia; Translations: [Paroxysmal supraventricular tachycardia] Onset: 10-29-2010 10-29-2010 Chronic Diseases of mouth; excluding dental (1 source) Finding of salivary apparatus; Translations: [Other diseases of salivary glands] Episodic Diseases of white blood cells (20 sources) Neutropenia; Translations: [Neutropenia] Onset: 11-22-2014 11-22-2014 Chronic Immunizations and screening for infectious disease (1 source) Suspected disease caused by 2019-nCoV; Translations: [Suspected COVID-19 virus infection] Episodic Other injuries and conditions due to external causes (1 source) Injury of toe of right foot; Translations: [Unspecified injury of right foot, initial encounter] 01-29-2023 Episodic Other injuries and conditions due to external causes (1 source) Injury of toe of left foot; Translations: [Unspecified injury of left foot, initial encounter] 05-18-2021 Episodic Other lower respiratory disease (6 sources) Cough; Translations: [Cough] Episodic Other lower respiratory disease (1 source) Lower respiratory tract infection; Translations: [Unspecified acute lower respiratory infection] 12-23-2022 Episodic Other nutritional; endocrine; and metabolic disorders (8 sources) Body mass index (BMI) 34.0-34.9, adult; Translations: [Body mass index (BMI) 34.0-34.9, adult] Onset: 10-16-2016 10-16-2016 Chronic Other upper respiratory disease (18 sources) Chronic rhinitis; Translations: [Chronic rhinitis] Onset: 06-22-2007 06-22-2007 Chronic Other upper respiratory infections (1 source) Chronic sinusitis; Translations: [Chronic sinusitis, unspecified] Chronic Other upper respiratory infections (3 sources) Acute upper respiratory infection; Translations: [Acute upper respiratory infection, unspecified] Episodic Rheumatoid arthritis and related disease (18 sources) Rheumatoid arthritis, unspecified; Translations: [Rheumatoid arthritis] Onset: 07-22-2006 06-22-2007 Chronic Substance-related disorders (18 sources) Tobacco user; Translations: [Nicotine dependence, unspecified, uncomplicated] Onset: 06-22-2007 06-30-2007 Chronic Unclassified (5 sources) Preoperative cardiovascular examination ; Translations: [Encounter for preprocedural cardiovascular examination] Onset: 10-11-2016 10-11-2016 Unclassified (1 source) Acute cough; Translations: [Acute cough] Onset: 10-13-2023 Viral infection (1 source) Viral disease; Translations: [Viral infection, unspecified] Episodic Past or Other Problems Problem Classification Problem Date Documented Date Episodic/Chronic Cardiac dysrhythmias (18 sources) Palpitations; Translations: [Palpitations] Onset: 06-22-2007 06-22-2007 Episodic Deficiency and other anemia (20 sources) Anemia; Translations: [Iron deficiency anemia] Onset: 05-09-2014 Resolved: 10-16-2016 05-09-2014 Episodic Deficiency and other anemia (4 sources) Iron deficiency anemia; Translations: [Iron deficiency anemia, unspecified] Onset: 07-25-2015 07-25-2015 Episodic Fluid and electrolyte disorders (10 sources) Hypokalemia; Translations: [Hypokalemia] Onset: 10-29-2010 10-29-2010 Episodic Fracture of lower limb (4 sources) Closed fracture proximal phalanx, toe ; Translations: [Nondisplaced fracture of proximal phalanx of right lesser toe(s), initial encounter for closed fracture] Onset: 02-25-2023 01-29-2023 Episodic Other circulatory disease (10 sources) Electrocardiogram abnormal; Translations: [Abnormal electrocardiogram [ECG] [EKG]] Onset: 10-29-2010 10-29-2010 Episodic Other connective tissue disease (18 sources) Calcaneal spur; Translations: [Calcaneal spur, unspecified foot] Onset: 07-22-2006 07-22-2006 Episodic Other nervous system disorders (6 sources) Abnormal gait; Translations: [Unspecified abnormalities of gait and mobility] Onset: 07-15-2007 Resolved: 07-15-2007 07-15-2007 Episodic Skin and subcutaneous tissue infections (18 sources) Disorder of nail; Translations: [Cellulitis of [...] Results Test Name Value Interpretation Reference Range Facility [facility] 10-13-2023 CNOV Office Visit (UCWSTR ) PATRIZIA GODFREY ([id number]) 1950 F Date Time Provider Department 10/13/23 9:15 AM KATHARINE VALENCIA During your visit today, we recorded the following information about you: Temperature Pulse Respiration Blood pressure 98.5 degrees 96/minute 20/minute 128/80 Weight 89.2 kg Katharine Valencia APRN.CNP 10/13/2023 10:11 AM Signed This note was created using [employer]. Subjective Ariella Godfrey is a 73 year old female. 73 year old female with PMH GERD, PE and DVT (one month ago and on Eliquis) presents for illness. Acute onset 3 days ago +cough +productive green sputum +chest congestion +nasal congestion Cough keeping her up at night. +fatigue Denies fever or chills. Denies eye, ear or nose throat She used an old inhaler Used Robitussin Former tobacco smoker, citing 12 hours ago States that her PE and DVT was approximately one month ago, citing she had a procedure on her knee. 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 Denies hemoptysis Denies dyspnea. Denies CP. The history is provided by the patient. No speech language assistant was used. Cough This is a new problem. The current episode started more than 2 days ago. The problem occurs constantly. The problem has been gradually worsening. The cough is Productive of sputum. There has been no fever. Associated symptoms include ear congestion, headaches, rhinorrhea, shortness of breath and wheezing. Pertinent negatives include no chest pain, no chills, no sweats, no weight loss, no ear pain, no sore throat, no myalgias and no eye redness. Treatments tried: see HPI. The treatment provided no relief. She is not a smoker (quit 12 years ago). Her past medical history does not include bronchitis, pneumonia, bronchiectasis, COPD, emphysema or asthma. PAST MEDICAL HISTORY Diagnosis Date Esophageal reflux Mitral valve disorders(424.0) Other premature beats Rheumatoid arthritis(714.0) PAST SURGICAL HISTORY Procedure Laterality Date LIG/TRNSXJ FLP TUBE ABDL/VAG APPR UNI/BI 1976 Tubal ligation PAST SURGICAL HISTORY OF bilateral lumpectomies- benign PAST SURGICAL HISTORY OF 07/22/2007 Left plantar fascitomy and left 5th hammertoe correction ALLERGIES Amoxicillin-Pot Clavulanate and Doxycycline MEDICATIONS ELIQUIS 5 mg tab(s) famotidine (PEPCID) 20 mg tablet potassium chloride [...] one, then, 1 tablet daily until gone. albuterol HFA (PROVENTIL HFA, VENTOLIN HFA) 90 mcg/actuation inhaler Inhale 2 Puffs as instructed every 4 hours as needed for wheezing/shortness of breath. Inhalational Spacing Device 1 Device one time only for 1 dose. predniSONE (DELTASONE) 10 mg tablet Take 4 tabs daily for 3 days, then 2 tabs daily for 3 days, then 1 tab daily for 3 days with food. benzonatate (TESSALON PERLES) 100 mg capsule Take 1 capsule by mouth three times daily as needed for cough. (Patient not taking: Reported on 10/13/2023) FAMILY HISTORY Problem Relation Age of Onset Breast Cancer Mother None Father father unknown Social History Tobacco Use Smoking status: Former Packs/day: 1.00 Years: 30.00 Additional pack years: 0.00 Total pack years: 30.00 Types: Cigarettes Quit date: 2012 Years since quittin.5 Smokeless tobacco: Never Tobacco comments: d/c 2009 Substance Use Topics Alcohol use: No Drug use: No Review of Systems Constitutional: Positive for fatigue. Negative for activity change, appetite change, chills and weight loss. HENT: Positive for congestion and rhinorrhea. Negative for ear pain and sore throat. Eyes: Negative for discharge, redness and itching. Respiratory: Positive for cough, shortness of breath and wheezing. Negative for apnea, choking and chest tightness. Cardiovascular: Negative for chest pain. Gastrointestinal: Negative for abdominal pain, diarrhea and vomiting. Musculoskeletal: Negative for back pain and my (more content not included)... Normal [facility] XR CHEST 2V FRONTAL/LATon XR CHEST 2V FRONTAL/LAT * * *Final Report* * * DATE OF EXAM: Oct 13 2023 9:46AM WOX 5291 - XR CHEST 2V FRONTAL/LAT / PROCEDURE REASON: Acute cough * * * * Physician Interpretation * * * * EXAMINATION: CHEST RADIOGRAPH (2 VIEW FRONTAL and LATERAL) CLINICAL HISTORY: Acute cough MQ: XC2_6 EXAM DATE/TIME: 10/13/2023 9:46 AM COMPARISON: Chest x-ray on 09/26/2022 RESULT: Lines, tubes, and devices: None. Lungs and pleura: Interval increase in size of nodular opacity in the inferior retrosternal space, seen on lateral view. No consolidation. No lung mass. No pleural effusion. No pneumothorax. Cardiomediastinal silhouette: Normal cardiomediastinal silhouette. Bones and soft tissues: The spine shows degenerative changes. IMPRESSION: Interval increase in size of nodular opacity in the inferior retrosternal space. A dedicated CT chest study may be obtained for further evaluation. Photograph Enlarger: LISA Transcribe Date/Time: Oct 13 2023 9:49A Dictated by : PATSY LEVY MD This examination was interpreted and the report reviewed and electronically signed by: PATSY LEVY MD on Oct 13 2023 9:51AM EST [id number] N Normal [facility] XR Chest PA and Lateralon IMPRESSION: Interval increase in size of nodular opacity in the inferior retrosternal space. A dedicated CT chest study may be obtained for further evaluation. Photograph Enlarger: LISA Transcribe Date/Time: Oct 13 2023 9:49A Dictated by : PATSY LEVY MD This examination was interpreted and the report reviewed and electronically signed by: PATSY LEVY MD on Oct 13 2023 9:51AM [facility] DIVISION OF RADIOLOGY * * *Final Report* * * DATE OF EXAM: Oct 13 2023 9:46AM WOX 5291 - XR CHEST 2V FRONTAL/LAT / PROCEDURE REASON: Acute cough * * * * Physician Interpretation * * * * EXAMINATION: CHEST RADIOGRAPH (2 VIEW FRONTAL & LATERAL) CLINICAL HISTORY: Acute cough MQ: XC2_6 EXAM DATE/TIME: 10/13/2023 9:46 AM COMPARISON: Chest x-ray on 09/26/2022 RESULT: Lines, tubes, and devices: None. Lungs and pleura: Interval increase in size of nodular opacity in the inferior retrosternal space, seen on lateral view. No consolidation. No lung mass. No pleural effusion. No pneumothorax. Cardiomediastinal silhouette: Normal cardiomediastinal silhouette. Bones and soft tissues: The spine shows degenerative changes. DIVISION OF RADIOLOGY Provider, [facility] - 10/13/2023 * * *Final Report* * * DATE OF EXAM: Oct 13 2023 9:46AM WOX 5291 - XR CHEST 2V FRONTAL/LAT / PROCEDURE REASON: Acute cough * * * * Physician Interpretation * * * * EXAMINATION: CHEST RADIOGRAPH (2 VIEW FRONTAL & LATERAL) CLINICAL HISTORY: Acute cough MQ: XC2_6 EXAM DATE/TIME: 10/13/2023 9:46 AM COMPARISON: Chest x-ray on 09/26/2022 RESULT: Lines, tubes, and devices: None. Lungs and pleura: Interval increase in size of nodular opacity in the inferior retrosternal space, seen on lateral view. No consolidation. No lung mass. No pleural effusion. No pneumothorax. Cardiomediastinal silhouette: Normal cardiomediastinal silhouette. Bones and soft tissues: The spine shows degenerative changes. IMPRESSION IMPRESSION: Interval increase in size of nodular opacity in the inferior retrosternal space. A dedicated CT chest study may be obtained for further evaluation. Photograph Enlarger: PSCB Transcribe Date/Time: Oct 13 2023 9:49A Dictated by : PATSY LEVY MD This examination was interpreted and the report reviewed and electronically signed by: PATSY LEVY MD on Oct 13 2023 9:51AM EST [facility] Radiology Study observation (narrative) [facility] XR Chest PA and LateralOrder ed By: Ccf Provider on 10-13-2023 [facility] XR TOE 3V AP/LAT/OBL RTon XR TOE 3V AP/LAT/OBL RT * * *Final Report* * * DATE OF EXAM: Feb 25 2023 10:11AM WRX 5269 - XR TOE 3V AP/LAT/OBL RT / PROCEDURE REASON: Closed nondisplaced fracture of proximal phalanx of lesser toe of right foot, in * * * * Physician Interpretation * * * * EXAMINATION: XR TOE 3V AP/LAT/OBL RT CLINICAL HISTORY: Follow-up right second toe fracture Technique: XR TOE 3V AP/LAT/OBL RT -- RIGHT with 3 views on 4 images Comparison: X-ray right toes 01/29/2023 RESULT: Unchanged alignment of an oblique fracture of the proximal phalanx of the right second toe. Callus formation is present. Again noted is an avulsion fracture along the dorsal base of the right second toe distal phalanx. No dislocation. Joint spaces are maintained. IMPRESSION: Unchanged alignment of a healing undisplaced fracture of the proximal phalanx of the right second toe. Again noted is an avulsion fracture of the dorsal base of the distal phalanx of the right second toe. Photograph Enlarger: PSCB Transcribe Date/Time: Feb 26 2023 4:54P Dictated by : VASQUEZ BESS MD This examination was interpreted and the report reviewed and electronically signed by: VASQUEZ BESS MD on Feb 26 2023 4:55PM EST [id number] N Normal [facility] CNOVon 02-11-2023 CNOV Office Visit (PODIWS ) KAIPATRIZIA ([id number]) 1950 F Date Time Provider Department 02/11/23 8:45 AM [facility]BERT [facility]ENDRIC[facility] During your visit today, we recorded the following information about you: Shanti Lozano LPN 02/11/2023 9:12 AM Signed AMB ROOMING INTAKE FLOWSHEET DATA Pain Pain Level: 6 Pain Location: Toe Description: Burning Duration Amount of Time: 3 Duration Units: Weeks Frequency: Continuous Intervention/Comfort measure: Reposition, Relaxation, Medication Patient presents with: Right Foot - New, Pain, Fracture, Swelling FUENTES Baker Matthew 02/11/2023 9:12 AM Signed Consultation requested by Dr. Russo for an [...] Duration Units: Weeks Frequency: Continuous Intervention/Comfort measure: Reposition;Relaxation ;Medication No results found for: HBA1C PCP: Eric [...] quittin.8 Smokeless tobacco: Never Tobacco comments: d/c 2010 Substance Use Topics Alcohol use: No Drug [...] or shortness of breath. Psychology: Patient is enga (more content not included)... Normal [facility] CNOVon 01-29-2023 CNOV Office Visit (UCWSTR ) PATRIZIA GODFREY Ivan ([id number]) 1950 F Date Time Provider Department 01/29/23 12:15 PM MARS RUSSO [facility] During your visit today, we recorded the following information about you: Temperature Pulse Respiration Blood pressure 98.2 degrees 66/minute 16/minute 122/76 Weight 103.1 kg Mars Russo APRN.CHIEF NURSING OFFICER 01/29/2023 1:19 PM Signed Subjective HPI HPI Ariella oGdfrey is a 73 year old female who [...] digit. Dictated by : MD Mars MUSTAFA APRN.CNP King, Jonathan, APRN.CNP 01/29/2023 1:12 PM Signed ASSESSMENT/PLAN: 1. Closed nondisplaced fracture of proximal phalanx of lesser toe of right foot, initial encounter - ICD9: 826.0, ICD10: S92.514A (primary diagnosis) Post op shoe provided Pain relief/otc Will schedule follow up with podiatry Follow up for worsening symptoms. - CONSULT TO PODIATRY Allergies As of Date: 01/29/2023 Noted Allergy Reaction AMOXICILLIN-POT CLAVULANATE 04/04/2016 8 - GI Upset DOXYCYCLINE 05/18/2021 16 - Unknown Comments: Makes her very ill when she takes it environmental [Other] 07/22/2006 Comments: perfumes, pollen, scent in detergent all cause rhinitis Date Reviewed: 01/29/2023 Reviewed by: Tmaia Gallego - Fully Assessed Reason for Visit: Toe Pain (Toe) [761] Cmt: Right toe pain x1 week Primary Visit Diagnosis:Closed nondisplaced fracture of proximal phalanx of lesser toe of right foot, initial encounter [S92.514A] Other Visit Diagnosis:Toe injury, right, initial encounter [S99.921A] Order(s):XR TOE AP/LAT/OBL RIGHT [[id number]] Order #: [id number]. #:[id number] CONSULT TO PODIATRY [9034] Order #: [id number]: 1 FUTURE Prescriptions as of 01/29/2023 - methotrexate, PF, 25 mg/mL soln Inject 1/2 milliliter(s) Subcutaneous once a week, single use vials, use and discard - benzonatat (more content not included)... Normal [facility] XR TOE 3V AP/LAT/OBL RTon XR TOE 3V AP/LAT/OBL RT * * *Final Report* * * DATE OF EXAM: Jan 29 2023 12:47PM WOX 5269 - XR TOE 3V AP/LAT/OBL RT / PROCEDURE REASON: Toe injury, right, initial encounter * * * * Physician Interpretation * * * * EXAM TITLE: XR TOE 3V AP/LAT/OBL RT EXAM DATE/TIME: 01/29/2023 12:47 PM COMPARISON: None CLINICAL INDICATION/HISTORY: Injury. TECHNIQUE: AP, lateral and oblique views of the second digit of the right foot are presented. FINDINGS: Nondisplaced oblique fracture seen in the proximal phalanx. Also noted is avulsion fracture along the dorsal aspect of the base of the distal phalanx, seen on lateral view. The joint spaces are well preserved. The mineralization of the bones is normal. There is soft tissue swelling. IMPRESSION: Proximal and distal phalanx fractures in the second digit. Photograph Enlarger: PSCB Transcribe Date/Time: Jan 29 2023 12:49P Dictated by : PATSY LEVY MD This examination was interpreted and the report reviewed and electronically signed by: PATSY LEVY MD on Jan 29 2023 12:53PM EST [id number] N Normal [facility] XR TOE AP/LAT/OBL RIGHTon [facility] XR Toes - right 3 Viewson IMPRESSION: Proximal and distal phalanx fractures in the second digit. Photograph Enlarger: ProBinder Transcribe Date/Time: Jan 29 2023 12:49P Dictated by : PATSY LEVY MD This examination was interpreted and the report reviewed and electronically signed by: PATSY LEVY MD on Jan 29 2023 12:53PM [facility] DIVISION OF RADIOLOGY * * *Final Report* * * DATE OF EXAM: Jan 29 2023 12:47PM WOX 5269 - XR TOE 3V AP/LAT/OBL RT / PROCEDURE REASON: Toe injury, right, initial encounter * * * * Physician Interpretation * * * * EXAM TITLE: XR TOE 3V AP/LAT/OBL RT EXAM DATE/TIME: 01/29/2023 12:47 PM COMPARISON: None CLINICAL INDICATION/HISTORY: Injury. TECHNIQUE: AP, lateral and oblique views of the second digit of the right foot are presented. FINDINGS: Nondisplaced oblique fracture seen in the proximal phalanx. Also noted is avulsion fracture along the dorsal aspect of the base of the distal phalanx, seen on lateral view. The joint spaces are well preserved. The mineralization of the bones is normal. There is soft tissue swelling. DIVISION OF RADIOLOGY Provider, Sh[facility] shukla [place] - 01/29/2023 * * *Final Report* * * DATE OF EXAM: Jan 29 2023 12:47PM WOX 5269 - XR TOE 3V AP/LAT/OBL RT / PROCEDURE REASON: Toe injury, right, initial encounter * * * * Physician Interpretation * * * * EXAM TITLE: XR TOE 3V AP/LAT/OBL RT EXAM DATE/TIME: 01/29/2023 12:47 PM COMPARISON: None CLINICAL INDICATION/HISTORY: Injury. TECHNIQUE: AP, lateral and oblique views of the second digit of the right foot are presented. FINDINGS: Nondisplaced oblique fracture seen in the proximal phalanx. Also noted is avulsion fracture along the dorsal aspect of the base of the distal phalanx, seen on lateral view. The joint spaces are well preserved. The mineralization of the bones is normal. There is soft tissue swelling. IMPRESSION IMPRESSION: Proximal and distal phalanx fractures in the second digit. Photograph Enlarger: PSCB Transcribe Date/Time: Jan 29 2023 12:49P Dictated by : PATSY LEVY MD This examination was interpreted and the report reviewed and electronically signed by: PATSY LEVY MD on Jan 29 2023 12:53PM EST [facility] Radiology Study observation (narrative) [facility] XR Toes - right 3 ViewsOrder ed By: Ccf Provider on 01-29-2023 [facility] CNOVon 12-23-2022 CNOV Office Visit (UCWSTR ) PATRIZIA GODFRYE ([id number]) 1950 F Date Time Provider Department 12/23/22 10:30 AM MARS RUSSO [facility] During your visit today, we recorded the following information about you: Temperature Pulse Respiration Blood pressure 97.2 degrees 85/minute 21/minute 150/68 Weight 102.6 kg Mars Russo APRN.JARED 12/23/2022 11:06 AM Signed Subjective HPI HPI Ariella Godfrey is a [...] - AZITHROMYCIN 250 MG TABLET Mars Russo APRN.CHIEF NURSING OFFICER Allergies As of Date: 12/23/2022 Noted Allergy Reaction AMOXICILLIN-POT CLAVULANATE 04/04/2016 8 - GI Upset DOXYCYCLINE 05/18/2021 16 - Unknown Comments: Makes her very ill when she takes it environmental [Other] 07/22/2006 Comments: perfumes, pollen, scent in detergent all cause rhinitis Date Reviewed: 12/23/2022 Reviewed by: Mars Russo APRN.CHIEF NURSING OFFICER - Fully Assessed (more content not included)... Normal [facility] XR CHEST 2V FRONTAL/LATon [facility] XR Chest PA and Lateralon IMPRESSION: No acute radiographic abnormality. Photograph Enlarger: PSCB Transcribe Date/Time: Sep 26 2022 9:28A Dictated by : VASQUEZ BESS MD This examination was interpreted and the report reviewed and electronically signed by: VASQUEZ BESS MD on Sep 26 2022 9:32AM [facility] DIVISION OF RADIOLOGY * * *Final Report* * * DATE OF EXAM: Sep 26 2022 9:23AM WOX 5291 - XR CHEST 2V FRONTAL/LAT / PROCEDURE REASON: Acute cough * * * * Physician Interpretation * * * * EXAMINATION: CHEST RADIOGRAPH (2 VIEW FRONTAL & LATERAL) CLINICAL HISTORY: Acute cough MQ: XC2_6 EXAM DATE/TIME: 09/26/2022 9:23 AM COMPARISON: Chest x-ray 12/22/2020 RESULT: Lines, tubes, and devices: None. Lungs and pleura: No consolidation. No lung mass. No pleural effusion. No pneumothorax. Cardiomediastinal silhouette: Normal cardiomediastinal silhouette. 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 DIVISION OF RADIOLOGY [facility] 09/26/2022 * * *Final Report* * * DATE OF EXAM: Sep 26 2022 9:23AM WOX 5291 - XR CHEST 2V FRONTAL/LAT / PROCEDURE REASON: Acute cough * * * * Physician Interpretation * * * * EXAMINATION: CHEST RADIOGRAPH (2 VIEW FRONTAL & LATERAL) CLINICAL HISTORY: Acute cough MQ: XC2_6 EXAM DATE/TIME: 09/26/2022 9:23 AM COMPARISON: Chest x-ray 12/22/2020 RESULT: Lines, tubes, and devices: None. Lungs and pleura: No consolidation. No lung mass. No pleural effusion. No pneumothorax. Cardiomediastinal silhouette: Normal cardiomediastinal silhouette. 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 IMPRESSION IMPRESSION: No acute radiographic abnormality. Photograph Enlarger: [facility] Transcribe Date/Time: Sep 26 2022 9:28A Dictated by : VASQUEZ BESS MD This examination was interpreted and the report reviewed and electronically signed by: VASQUEZ BESS MD on Sep 26 2022 9:32AM EST [facility] Radiology Study observation (narrative) [facility] XR Chest PA and LateralOrder ed By: Ccf Provider on 09-26-2022 [facility] XR Toes - left 3 Viewson IMPRESSION: No Acute Fracture. Photograph Enlarger: [facility] Transcribe Date/Time: May 18 2021 4:25P Dictated by : ZA YAN MD This examination was interpreted and the report reviewed and electronically signed by: ZA YAN MD on May 18 2021 4:26PM EST DIVISION OF RADIOLOGY * * *Final Report* * * DATE OF EXAM: May 18 2021 4:23PM WOX 5268 - XR TOE 3V AP/LAT/OBL LT / PROCEDURE REASON: Toe injury, left, initial encounter * * * * Physician Interpretation * * * * EXAMINATION: XR TOE 3V AP/LAT/OBL LT HISTORY: stubbed her left 2nd toe a week ago but did not bother her until yestereday, turned red and sore. Toe injury, left, initial encounter.. TECHNIQUE: XR TOE 3V AP/LAT/OBL LT Laterality: LEFT Number of different views (projections): 3 M: XB_1 COMPARISON: There are no prior studies for comparison. RESULT: 3 views of the left second toe show no acute osseous, articular or soft tissue abnormality. Joint spaces are preserved. No erosive or bony destructive changes. DIVISION OF RADIOLOGY Provider, [facility] José shukla [place] - 05/18/2021 * * *Final Report* * * DATE OF EXAM: May 18 2021 4:23PM WOX 5268 - XR TOE 3V AP/LAT/OBL LT / PROCEDURE REASON: Toe injury, left, initial encounter * * * * Physician Interpretation * * * * EXAMINATION: XR TOE 3V AP/LAT/OBL LT HISTORY: stubbed her left 2nd toe a week ago but did not bother her until yestereday, turned red and sore. Toe injury, left, initial encounter.. TECHNIQUE: XR TOE 3V AP/LAT/OBL LT Laterality: LEFT Number of different views (projections): 3 M: XB_1 COMPARISON: There are no prior studies for comparison. RESULT: 3 views of the left second toe show no acute osseous, articular or soft tissue abnormality. Joint spaces are preserved. No erosive or bony destructive changes. IMPRESSION IMPRESSION: No Acute Fracture. Photograph Enlarger: ProBinder Transcribe Date/Time: May 18 2021 4:25P Dictated by : ZA YAN MD This examination was interpreted and the report reviewed and electronically signed by: ZA YAN MD on May 18 2021 4:26PM [facility] Radiology Study observation (narrative) [facility] XR Toes - left 3 ViewsOrdere d By: Cc Provider on 05-18-2021 [facility] XR Chest PA and Lateralon IMPRESSION: No acute radiographic abnormality. Photograph Enlarger: ProBinder Transcribe Date/Time: Dec 22 2020 11:25A Dictated by : VASQUEZ BESS MD This examination was interpreted and the report reviewed and electronically signed by: VASQUEZ BESS MD on Dec 22 2020 11:27AM [facility] DIVISION OF RADIOLOGY * * *Final Report* * * DATE OF EXAM: Dec 22 2020 11:10AM WOX 5291 - XR CHEST 2V FRONTAL/LAT / PROCEDURE REASON: URI, acute * * * * Physician Interpretation * * * * EXAMINATION: CHEST RADIOGRAPH (2 VIEW FRONTAL & LATERAL) CLINICAL HISTORY: URI, acute MQ: XC2_6 EXAM DATE/TIME: 12/22/2020 11:10 AM COMPARISON: No relevant prior studies available. RESULT: Lines, tubes, and devices: None. Lungs and pleura: No consolidation. No lung mass. No pleural effusion. No pneumothorax. Cardiomediastinal silhouette: Normal cardiomediastinal silhouette. 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 RESULT: Lines, tubes, and devices: None. Lungs and pleura: No consolidation. No lung mass. No pleural effusion. No pneumothorax. Cardiomediastinal silhouette: Normal cardiomediastinal silhouette. 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 Left ventricular Ejection fraction 55 % Invalid Interpretation Code [employer] Work Phone: [phone] Office Visiton 10-16-2016 Dietary management education, guidance, and counseling (procedure) yes Invalid Interpretation Code [employer] Work Phone: [phone] Documentation of current medications (procedure) Done Invalid Interpretation Code [employer] Work Phone: [phone] Fall risk assessment No Invalid Interpretation Code [employer] Work Phone: [phone] Protein mass conc Done [employer] Work Phone: [phone] Replaced Document: Tam Love CG Observationson 10-16-2016 EKG QRS axis 37 deg [employer] Work Phone: [phone] electrocardiogram interpretation Marked sinus Bradycardia BORDERLINE RHYTHM Invalid Interpretation Code [employer] Work Phone: [phone] GE use only - for [employer] import when terms are not otherwise specified 419 ms Invalid Interpretation Code [employer] Work Phone: Interpretation Marked sinus Bradycardia BORDERLINE RHYTHM [employer] Work Phone: [phone] P [place] 46 deg [employer] Work Phone: [phone] P wave axis, electrocardiogram 46 deg Invalid Interpretation Code [employer] Work Phone: [phone] OR Interval 146 ms [employer] Work Phone: [phone] OR interval, electrocardiogram 146 ms Invalid Interpretation Code [employer] Work Phone: [phone] Pulse (Heart Rate) 48 /min Invalid Interpretation Code [employer] Work Phone: [phone] QRS axis, electrocardiogram 37 deg Invalid Interpretation Code [employer] Work Phone: [phone] QRS Duration 90 ms [employer] Work Phone: [phone] QRS duration, electrocardiogram 90 ms Invalid Interpretation Code [employer] Work Phone: [phone] QT Interval new path ms [employer] Work Phone: [phone] QT interval, electrocardiogram new path ms Invalid Interpretation Code [employer] Work Phone: [phone] QTc Olivares 419 ms [employer] Work Phone: [phone] T [place] 57 deg [employer] Work Phone: [phone] T wave axis, electrocardiogram 57 deg Invalid Interpretation Code [employer] Work Phone: [phone] 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 See lab report for original value. [employer] Work Phone: [phone] free Juncal/Lambda ratio 1.23 Invalid Interpretation Code 0.26-1.65 [employer] Work Phone: [phone] kappa free light chains 2.72 mg/dL High Units converted. See lab report for original value. [employer] Work Phone: [phone] 00 KAPPA/LAMBDA % 1.23 0.26-1.65 [employer] Work Phone: FR LAMBDA LT CH 2.215 mg/dL Units converted. See lab report for original value. [employer] Work Phone: [phone] free Lambda light chain 2.215 mg/dL Invalid Interpretation Code Units converted. See lab report for original value. [employer] Work Phone: [phone] Lab Report: Protein Electrop h, Son 01-24-2016 Globulin . Invalid Interpretation Code [employer] Work Phone: [phone] lab comments Comment Invalid Interpretation Code . [employer] Work Phone: [phone] M-SPIKE . [employer] Work Phone: [phone] NOTE: Comment . [employer] Work Phone: [phone] Protein mass conc Comment . [employer] Phone: [phone] serum protein electrophoresis, interpretation/commen t Comment Invalid Interpretation Code . [employer] Work Phone: [phone] Albumin 3.3 g/dL Invalid Interpretation Code 2.9-4.4 [employer] Phone: [phone] Albumin/Globulin Ratio 1.0 (?) Invalid Interpretation Code 0.7-1.7 [employer] Phone: [phone] ALPHA-1 GLOBUL 0.2 g/dL 0.0-0.4 [employer] Phone: [phone] ALPHA-2 GLOBUL 0.7 g/dL 0.4-1.0 [employer] Phone: [phone] BETA GLOBULIN 1.2 g/dL 0.7-1.3 [employer] Work Phone: [phone] GAMMA GLOBULIN 1.0 g/dL 0.4-1.8 [employer] Work Phone: [phone] Globulin 3.2 g/dL Invalid Interpretation Code 2.2-3.9 [employer] Phone: [phone] Globulin 1.0 g/dL Invalid Interpretation Code 0.4-1.8 [employer] Phone: [phone] Globulin 1.2 g/dL Invalid Interpretation Code 0.7-1.3 [employer] Work Phone: [phone] Globulin 0.7 g/dL Invalid Interpretation Code 0.4-1.0 [employer] Work Phone: [phone] Globulin 0.2 g/dL Invalid Interpretation Code 0.0-0.4 [employer] Work Phone: [phone] Globulin mass conc (S) 3.2 g/dL 2.2-3.9 [employer] Work Phone: [phone] Protein 6.5 g/dL Invalid Interpretation Code 6.0-8.5 [employer] Work Phone: [phone] Office Visit: 6 mo f/u (DEEPIKA/ neutropenia) PHQ9 Completeon 01-22-2016 Adolescent depression screening assessment Adolescent depression screening assessment Invalid Interpretation Code [employer] Phone: [phone] Adult depression screening assessment Adult depression screening assessment Invalid Interpretation Code [employer] Phone: [phone] Documentation of current medications (procedure) Done Invalid Interpretation Code [facility] Phone: [phone] PHQ-9 quick depression assessment panel [Reported.PHQ] Adult depression screening assessment [facility] Phone: [phone] Protein mass conc Done [facility] Phone: [phone] Tobacco smoking status NHIS Former smoker [employer] Work Phone: [phone] Tobacco use CPHS Former smoker Invalid Interpretation Code [facility] Phone: [phone] Lab Report: CBC W/Diff, Auto - EPLAB Onlyon 01-18-2016 Basophils/100 leukocytes 1.7 % High 0-1 [employer] Work Phone: [phone] Basophils/100 WBC (Bld) 1.7 % High 0-1 [employer] Work Phone: [phone] Eosinophils/100 leukocytes 2.0 % Invalid Interpretation Code 0-5 [employer] Work Phone: [phone] Eosinophils/100 WBC (Bld) 2.0 % 0-5 [facility] Phone: [phone] Erythrocytes (RBC) 4.39 10*6/uL Invalid Interpretation Code 4.2-5.4 [employer] Work Phone: [phone] Hematocrit (HCT) 39.7 % Invalid Interpretation Code 37-47 [facility] Work Phone: [phone] Hematocrit Volume Fraction (Bld) 39.7 % 37-47 [facility] Work Phone: [phone] Hemoglobin (HGB) 12.7 g/dL Invalid Interpretation Code 12.0-15.0 [facility] Work Phone: [phone] Lymphocytes/100 leukocytes 32.1 % Invalid Interpretation Code 19-41 [facility] Work Phone: [phone] Lymphocytes/100 WBC (Bld) 32.1 % 19-41 [facility] Work Phone: [phone] MCH 29.0 pg Invalid Interpretation Code 27.0-32.0 [facility] Work Phone: [phone] MCH Entitic mass (RBC) 29.0 pg 27.0-32.0 [facility] Work Phone: [phone] MCHC 32.0 g/dL Invalid Interpretation Code 32-36 [facility] Work Phone: [phone] MCHC mass conc (RBC) 32.0 g/dL 32-[address] [facility] Work Phone: [phone] MCV 90.4 fL Invalid Interpretation Code 81-99 [facility] Work Phone: [phone] MCV Entitic volume (RBC) 90.4 fL 81-99 [facility] Work Phone: [phone] Monocytes/100 leukocytes 10.2 % High 0-10 [facility] Work [phone] Monocytes/100 WBC (Bld) 10.2 % High 0-10 [facility] Work Phone: [phone] Neutrophils/100 leukocytes 54.0 % Invalid Interpretation Code 47-70 [facility] Work [phone] Neutrophils/100 WBC (Bld) 54.0 % 47-70 [facility] Work Phone: [phone] Platelets 150 10*3/mm3 Invalid Interpretation Code 150-450 [facility] Work Phone: [phone] Platelets #/vol (Bld) 150 10*3/mm3 150-450 [facility] Work Phone: [phone] RBC #/vol (Bld) 4.39 10*6/uL 4.2-5.4 [facility] Work Phone: [phone] WBC #/vol (Bld) 3.4 10*3/uL Low 4.4-11.0 [employer] Work Phone: [phone] WBC (Leukocytes) 3.4 10*3/uL Low 4.4-11.0 [facility] Work Phone: [phone] Erythrocyte distribution width Ratio (RBC) 12.3 % 11.6-14.6 [employer] Work Phone: [phone] Lymphocytes 1.08 X10 3/UL Invalid Interpretation Code 0.83-4.51 [employer] Work Phone: [phone] Lymphocytes #/vol (Bld) 1.08 X10 3/UL 0.83-4.51 [employer] Work Phone: [phone] neutrophil count, blood 1.8 X10 3/UL Low 2.0-7.7 [employer] Work Phone: [phone] Neutrophils #/vol (Bld) 1.8 X10 3/UL Low 2.0-7.7 [employer] Work Phone: [phone] Platelet mean volume Entitic volume (Bld) 7.9 fL 6.2-12.0 [employer] Work Phone: [phone] PMV by Daniel 7.9 fL Invalid Interpretation Code 6.2-12.0 [employer] Work Phone: [phone] RDW-CA 12.3 % Invalid Interpretation Code 11.6-14.6 [employer] Work Phone: [phone] Lab Report: [facility] 01-18-2016 Alanine aminotransferase (ALT) 26 U/L Invalid Interpretation Code 12-78 [employer] Work Phone: [phone] Albumin 3.2 g/dL Low 3.4-5.0 [employer] Work Phone: [phone] Albumin/Globulin Ratio 0.9 {ratio} Invalid Interpretation Code 0.9-2.4 [facility] Work Phone: [phone] Alkaline phosphatase (ALP) 81 U/L Invalid Interpretation Code 50-136 [facility] Work Phone: [phone] ALP enzyme act/vol (Bld) 81 U/L 50-136 [facility] Work Phone: [phone] Anion gap 5 mmol/L Invalid Interpretation Code 5-15 [facility] Work Phone: [phone] Anion gap molar conc 5 mmol/L 5-[address] [facility] Work Phone: [phone] Aspartate aminotransferase (AST) 22 U/L Invalid Interpretation Code 15-37 [facility] Work Phone: [phone] Bilirubin (total) 0.50 mg/dL Invalid Interpretation Code 0.20-1.00 [employer] Work Phone: [phone] BUN/Creatinine Ratio 10.9 RATIO Invalid Interpretation Code 10-20 [facility] Work Phone: [phone] Calcium 8.5 mg/dL Invalid Interpretation Code 8.5-10.1 [employer] Work Phone: [phone] Chloride 105 mmol/L Invalid Interpretation Code 98-107 [facility] Work Phone: [phone] CO2 30.0 mmol/L Invalid Interpretation Code 21.0-32.0 [employer] Work Phone: [phone] CO2 ppres (BldV) 30.0 mmol/L 21.0-32.0 [facility] Work Phone: [phone] Creatinine 1.01 mg/dL Invalid Interpretation Code 0.55-1.20 [employer] Work Phone: [phone] eGFR (non-black) 71 mL/min/{1.73_m2} Invalid Interpretation Code >60 [employer] Work Phone: [phone] eGFR (non-black) 59 mL/min/{1.73_m2} Low >60 [employer] Work Phone: [phone] EST GFR - AA 71 mL/min >60 [employer] Work Phone: [phone] Globulin 3.7 g/dL High 2.3-3.5 [employer] Work Phone: [phone] Globulin mass conc (S) 3.7 g/dL High 2.3-3.5 [employer] Work Phone: [phone] Glucose 109 mg/dL Invalid Interpretation Code 70-110 [employer] Work Phone: [phone] Glucose mass conc 109 mg/dL 70-110 [employer] Work Phone: [phone] Potassium 4.1 mmol/L Invalid Interpretation Code 3.5-5.1 [employer] Work Phone: [phone] Protein 6.9 g/dL Invalid Interpretation Code 6.4-8.2 [employer] Work Phone: [phone] Sodium 140 mmol/L Invalid Interpretation Code 136-145 [employer] Work Phone: [phone] Urea nitrogen 11 mg/dL Invalid Interpretation Code 7-18 [employer] Work Phone: [phone] Lab Report: Ferritinon 01-17 Ferritin 14 ng/mL Invalid Interpretation Code 8-252 [employer] Work Phone: [phone] Lab Report: Ironon 6 Iron 77 ug/dL Invalid Interpretation Code 50-170 [employer] Work Phone: [phone] Lab Report: Iron Binding Cap acity,Totalon 01-18-2016 iron binding capacity, total 439 ug/dL Invalid Interpretation Code 250-450 [employer] Work Phone: [phone] Lab Report: LDHon 01-18-2016 lactate dehydrogenase - serum 252 U/L High 84-246 [employer] Work Phone: [phone] LDH 252 U/L High 84-246 [employer] Work Phone: [phone]) Lab Report: Uric Acidon Urate 5.4 mg/dL Invalid Interpretation Code 2.6-6.0 [employer] Work Phone: [phone] Office Visiton 07-25-2015 Protein mass conc yes [employer] Work Phone: [phone] Smoking cessation education (procedure) yes Invalid Interpretation Code [employer] Work Phone: Lab Report: Vitamin B12on Cobalamin (Vitamin B12) mass conc 286 pg/mL 211-911 [employer] Work Phone: [phone] vitamin b12, serum 286 pg/mL Invalid Interpretation Code 911 [employer] Work Phone: [phone]) Lab Report: Folates, (Folic Acid)on 06-27-2015 Folate 6.40 ng/mL Invalid Interpretation Code 3.1-17.5 [employer] Work Phone: [phone] Lab Report: CBC W/Diff, Auto matedon 01-03-2015 Erythrocyte distribution width Ratio (RBC) 41.3 fL 35.1-43.9 [employer] Work Phone: [phone] Immature granulocytes #/vol (Bld) 0.000 % 0.0-0.9 [employer] Work Phone: [phone] immature granulocytes, percentage of total cells, blood 0.000 % Invalid Interpretation Code 0.0-0.9 [employer] Work Phone: [phone] red blood cell distribution width, size density 41.3 fL Invalid Interpretation Code 35.1-43.9 [employer] Work Phone: [phone]) Lab Report: CBC W/Diff, Auto - EPLAB Onlyon 11-15-2014 Absolute Neut 1.9 X10 3/UL Low 2.0-7.7 [employer] Work Phone: [phone] Absolute Neutrophil count 1.9 X10 3/UL Low 2.0-7.7 [employer] Work Phone: [phone] Lab Report: LDHon 11-15-2014 Lactate dehydrogenase (LDH) 205 U/L Invalid Interpretation Code 84-246 [employer] Work Phone: [phone]) Lab Report: Haptoglobinon Haptoglobin 108 mg/dL Invalid Interpretation Code 34-200 [employer] Work Phone: [phone] Lab Report: Juncal Lambda Lt Chn Ser. Mon.on 05-15-2014 GE use only - for LinkLogic import when terms are not otherwise specified . Invalid Interpretation Code [employer] Work Phone: [phone] K/L GRAPH . [facility] Work Phone: [phone] Replaced Document: (P) Eryth ropoietinon 05-14-2014 ERYTHROP [id number] 18.2 m[iU]/mL 2.6-18.5 [facility] Work Phone: [phone] erythropoietin, serum 18.2 m[iU]/mL Invalid Interpretation Code 2.6-18.5 [facility] Work Phone: [phone] Replaced Document: (P) EMILY + Protein Elect, Serumon 05-14-2014 IgG 990 mg/dL Invalid Interpretation Code 700-1600 [facility] Work Phone: [phone]) Lab Report: Bilirubin, Direc ton 05-10-2014 Bilirubin (direct) 0.09 mg/dL Invalid Interpretation Code 0.00-0.30 [facility] Work Phone: [phone] Lab Report: Retic Panelon Reticulocytes/100 erythrocytes 1.47 % Invalid Interpretation Code 0.5-1.5 [facility] Work Phone: [phone] Reticulocytes/100 RBC (Bld) 1.47 % 0.5-1.5 [facility] Work Phone: [phone]) Lab Report: Thyroid Stim Hor chauncey (TSH)on 05-10-2014 Thyroid stimulating hormone (TSH) 2.52 u[iU]/mL Invalid Interpretation Code 0.358-3.74 [facility] Work Phone: [phone]) Office Visit: 6 mo f/u (DEEPIKA/ neutropenia) PHQ9 Completeon 01-13-2014 Breast Mammogram screening Normal Bilateral Invalid Interpretation Code [facility] Work Phone: [phone]) Office Visit: 6 mo f/u (DEEPIKA/ neutropenia) PHQ9 Completeon 01-12-2013 Colonoscopy (procedure) Colonoscopy (procedure) Invalid Interpretation Code [facility] Work Phone: [phone] Protein mass conc Colonoscopy (procedure) [facility] Work Phone: [phone] Vital Signs Date Time Vital Sign Value Performing Clinician Facility 10-13-2023 09:21-0400 Body temperature 98.49 [degF] Katharine Valencia DIRECTOR OF GOLF.CHIEF NURSING OFFICER Work Phone: [facility] 10-13-2023 09:21-0400 Body weight 89.2 kg Katharine Valencia DIRECTOR OF GOLF.CHIEF NURSING OFFICER Work Phone: [facility] 10-13-2023 09:21-0400 Diastolic blood pressure 80 mm[Hg] Katharine Valencia DIRECTOR OF GOLF.CHIEF NURSING OFFICER Work Phone: [facility] 10-13-2023 09:21-0400 Heart rate 96 /min Katharine Valencia DIRECTOR OF GOLF.CHIEF NURSING OFFICER Work Phone: [facility] 10-13-2023 09:21-0400 Respiratory rate 20 /min Katharine Valencia DIRECTOR OF GOLF.CHIEF NURSING OFFICER Work Phone: [facility] 10-13-2023 09:21-0400 SaO2% (BldA) [Mass fraction] 99 % Katharine Valencia DIRECTOR OF GOLF.CHIEF NURSING OFFICER Work Phone: [facility] 10-13-2023 09:21-0400 Systolic blood pressure 128 mm[Hg] Katharine Valencia DIRECTOR OF GOLF.CHIEF NURSING OFFICER Work Phone: [facility] 01-29-2023 12:21-0400 Body temperature 98.2 [degF] Mars Karan DIRECTOR OF GOLF.CHIEF NURSING OFFICER Work Phone: [facility] 01-29-2023 12:21-0400 Body weight 103.15 kg Mars Karan DIRECTOR OF GOLF.CHIEF NURSING OFFICER Work Phone: [facility] 01-29-2023 12:21-0400 Diastolic blood pressure 76 mm[Hg] Mars Karan DIRECTOR OF GOLF.CHIEF NURSING OFFICER Work Phone: [facility] 01-29-2023 12:21-0400 Heart rate 66 /min Mars Karan DIRECTOR OF GOLF.CHIEF NURSING OFFICER Work Phone: [facility] 01-29-2023 12:21-0400 Respiratory rate 16 /min Mars Karan DIRECTOR OF GOLF.CHIEF NURSING OFFICER Work Phone: [facility] 01-29-2023 12:21-0400 SaO2% (BldA) [Mass fraction] 96 % Mars Karan DIRECTOR OF GOLF.CHIEF NURSING OFFICER Work Phone: [facility] 01-29-2023 12:21-0400 Systolic blood pressure 122 mm[Hg] Mars Karan DIRECTOR OF GOLF.CHIEF NURSING OFFICER Work Phone: [facility] 12-23-2022 10:38-0400 Body temperature 97.2 [degF] Marsluac Russo DIRECTOR OF GOLF.CHIEF NURSING OFFICER Work Phone: [facility] 12-23-2022 10:38-0400 Body weight 102.6 kg Mars Russo DIRECTOR OF GOLF.CHIEF NURSING OFFICER Work Phone: [facility] 12-23-2022 10:38-0400 Diastolic blood pressure 68 mm[Hg] Mars Karan DIRECTOR OF GOLF.CHIEF NURSING OFFICER Work Phone: [facility] 12-23-2022 10:38-0400 Heart rate 85 /min Mars Russo DIRECTOR OF GOLF.CHIEF NURSING OFFICER Work Phone: [facility] 12-23-2022 10:38-0400 Respiratory rate 21 /min Mars Russo DIRECTOR OF GOLF.CHIEF NURSING OFFICER Work Phone: [facility] 12-23-2022 10:38-0400 SaO2% (BldA) [Mass fraction] 97 % Mars Russo DIRECTOR OF GOLF.CHIEF NURSING OFFICER Work Phone: [facility] 12-23-2022 10:38-0400 Systolic blood pressure 150 mm[Hg] Mars Karan DIRECTOR OF GOLF.CHIEF NURSING OFFICER Work Phone: [facility] 09-26-2022 08:50-0400 Body temperature 99.39 [degF] Faisal Mancini DIRECTOR OF GOLF.CHIEF NURSING OFFICER Work Phone: [facility] 09-26-2022 08:50-0400 Body weight 102.97 kg Faisalflorencio Mancini DIRECTOR OF GOLF.CHIEF NURSING OFFICER Work Phone: [facility] 09-26-2022 08:50-0400 Diastolic blood pressure 88 mm[Hg] Faisal Viniciuslebury DIRECTOR OF GOLF.CHIEF NURSING OFFICER Work Phone: [facility] 09-26-2022 08:50-0400 Heart rate 76 /min Faisal Mancini DIRECTOR OF GOLF.CHIEF NURSING OFFICER Work Phone: [facility] 09-26-2022 08:50-0400 Respiratory rate 18 /min Faisal Pendlebury DIRECTOR OF GOLF.CHIEF NURSING OFFICER Work Phone: [facility] 09-26-2022 08:50-0400 SaO2% (BldA) [Mass fraction] 96 % Faisal Pendlebury DIRECTOR OF GOLF.CHIEF NURSING OFFICER Work Phone: [facility] 09-26-2022 08:50-0400 Systolic blood pressure 134 mm[Hg] Faisal Pendlebury DIRECTOR OF GOLF.CHIEF NURSING OFFICER Work Phone: [facility] 08-15-2022 18:20-0400 Body temperature 98.1 [degF] Mars Karan DIRECTOR OF GOLF.CHIEF NURSING OFFICER Work Phone: [facility] 08-15-2022 18:20-0400 Body weight 108.14 kg Marsluca Russo DIRECTOR OF GOLF.CHIEF NURSING OFFICER Work Phone: [facility] 08-15-2022 18:20-0400 Diastolic blood pressure 74 mm[Hg] Mars Karan DIRECTOR OF GOLF.CHIEF NURSING OFFICER Work Phone: [facility] 08-15-2022 18:20-0400 Heart rate 63 /min Mars Karan DIRECTOR OF GOLF.CHIEF NURSING OFFICER Work Phone: [facility] 08-15-2022 18:20-0400 Respiratory rate 16 /min Mars Karan DIRECTOR OF GOLF.CHIEF NURSING OFFICER Work Phone: [facility] 08-15-2022 18:20-0400 SaO2% (BldA) [Mass fraction] 97 % Mars Karan DIRECTOR OF GOLF.CHIEF NURSING OFFICER Work Phone: [facility] 08-15-2022 18:20-0400 Systolic blood pressure 130 mm[Hg] Mars Karan DIRECTOR OF GOLF.CHIEF NURSING OFFICER Work Phone: [facility] 04-13-2022 08:32-0500 Body temperature 98.49 [degF] Mars Karan DIRECTOR OF GOLF.CHIEF NURSING OFFICER Work Phone: [facility] 04-13-2022 08:32-0500 Body weight 107.05 kg Mars Karan DIRECTOR OF GOLF.CHIEF NURSING OFFICER Work Phone: [facility] 04-13-2022 08:32-0500 Diastolic blood pressure 68 mm[Hg] Mars Russo DIRECTOR OF GOLF.CHIEF NURSING OFFICER Work Phone: [facility] 04-13-2022 08:32-0500 Heart rate 88 /min Mars Russo DIRECTOR OF GOLF.CHIEF NURSING OFFICER Work Phone: [facility] 04-13-2022 08:32-0500 Respiratory rate 18 /min Mars Russo DIRECTOR OF GOLF.CHIEF NURSING OFFICER Work Phone: [facility] 04-13-2022 08:32-0500 SaO2% (BldA) [Mass fraction] 99 % Mars Russo APRN.CHIEF NURSING OFFICER Work Phone: [facility] 04-13-2022 08:32-0500 Systolic blood pressure 122 mm[Hg] Mars Russo DIRECTOR OF GOLF.CHIEF NURSING OFFICER Work Phone: [facility] 03-14-2022 09:52-0500 Body temperature 100 [degF] Anny Roach APRN.CHIEF NURSING OFFICER Work Phone: [facility] 03-14-2022 09:52-0500 Body weight 106.69 kg Anny Roach APRN.CHIEF NURSING OFFICER Work Phone: [facility] 03-14-2022 09:52-0500 Diastolic blood pressure 86 mm[Hg] Anny Roach APRN.CHIEF NURSING OFFICER Work Phone: [facility] 03-14-2022 09:52-0500 Heart rate 74 /min Anny Roach APRN.CHIEF NURSING OFFICER Work Phone: [facility] 03-14-2022 09:52-0500 Respiratory rate 18 /min Anny Roach APRN.CHIEF NURSING OFFICER Work Phone: [facility] 03-14-2022 09:52-0500 SaO2% (BldA) [Mass fraction] 97 % Anny Roach APRN.CHIEF NURSING OFFICER Work Phone: [facility] 03-14-2022 09:52-0500 Systolic blood pressure 142 mm[Hg] Anny Roach APRN.CHIEF NURSING OFFICER Work Phone: [facility] 09-14-2021 10:05-0400 Body temperature 99 [degF] Anny Roach APRN.CHIEF NURSING OFFICER Work Phone: [facility] 09-14-2021 10:05-0400 Body weight 107.78 kg Anny Roach APRN.CHIEF NURSING OFFICER Work Phone: [facility] 09-14-2021 10:05-0400 Diastolic blood pressure 94 mm[Hg] Anny Roach APRN.CHIEF NURSING OFFICER Work Phone: [facility] 09-14-2021 10:05-0400 Heart rate 85 /min Anny Roach APRN.CHIEF NURSING OFFICER Work Phone: [facility] 09-14-2021 10:05-0400 Respiratory rate 22 /min Anny Roach APRN.CHIEF NURSING OFFICER Work Phone: [facility] 09-14-2021 10:05-0400 SaO2% (BldA) [Mass fraction] 97 % Anny Roach APRN.CHIEF NURSING OFFICER Work Phone: [facility] 09-14-2021 10:05-0400 Systolic blood pressure 168 mm[Hg] Anny Roach APRN.CHIEF NURSING OFFICER Work Phone: [facility] 09-07-2021 10:22-0400 Body temperature 98.29 [degF] Anny Roach APRN.CHIEF NURSING OFFICER Work Phone: [facility] 09-07-2021 10:22-0400 Body weight 110.68 kg Anny Roach APRN.CHIEF NURSING OFFICER Work Phone: [facility] 09-07-2021 10:22-0400 Diastolic blood pressure 82 mm[Hg] Anny Roach APRN.CHIEF NURSING OFFICER Work Phone: [facility] 09-07-2021 10:22-0400 Heart rate 82 /min Anny Roach APRN.CHIEF NURSING OFFICER Work Phone: [facility] 09-07-2021 10:22-0400 Respiratory rate 24 /min Anny Roach APRN.CHIEF NURSING OFFICER Work Phone: [facility] 09-07-2021 10:22-0400 SaO2% (BldA) [Mass fraction] 93 % Anny Roach APRN.CHIEF NURSING OFFICER Work Phone: [facility] 09-07-2021 10:22-0400 Systolic blood pressure 152 mm[Hg] Anny Roach APRN.CHIEF NURSING OFFICER Work Phone: [facility] 10-16-2016 15:12-0400 Heart rate 48 /min [facility] Work Phone: 10-16-2016 14:46-0400 BMI (Body Mass Index) 34.85 kg/m2 [facility] Work Phone: 10-16-2016 14:46-0400 BP Diastolic 60 mm[Hg] Ellie Lozano [facility] Work Phone: 10-16-2016 14:46-0400 BP Systolic 122 mm[Hg] [facility] Work Phone: 10-16-2016 14:46-0400 Height 175.26 cm [facility] Work Phone: 10-16-2016 14:46-0400 Pulse (Heart Rate) 52 /min [facility] Work Phone: 10-16-2016 14:46-0400 Respiratory Rate 18 /min [facility] Work Phone: 10-16-2016 14:46-0400 Weight 107.05 kg [facility] Work Phone: 01-22-2016 10:56-0400 BMI (Body Mass Index) 36.5 kg/m2 [facility] Work Phone: 01-22-2016 10:56-0400 Body Temperature 98 [degF] Nicole Weathers RN [facility] Work Phone: 01-22-2016 10:56-0400 BP Diastolic 75 mm[Hg] Nicole Weathers RN [facility] Work Phone: 01-22-2016 10:56-0400 BP Systolic 131 mm[Hg] Nicole Weathers RN [facility] Work Phone: 01-22-2016 10:56-0400 BSA (Body Surface Area) 2.26 m2 Nicole Weathers RN [facility] Work Phone: 01-22-2016 10:56-0400 Height 175.26 cm Nicole Weathers RN [facility] Work Phone: 01-22-2016 10:56-0400 Pulse (Heart Rate) 68 /min Nicole Weathers RN [facility] Work Phone: 01-22-2016 10:56-0400 Pulse Oximetry 95 % Nicole Weathers RN [facility] Work Phone: 01-22-2016 10:56-0400 Respiratory Rate 18 /min Nicole Weathers RN [facility] Work Phone: 01-22-2016 10:56-0400 Weight 112.36 kg Nicole Weathers RN [facility] Work Phone: 01-22-2016 10:56-0400 Weight 112.13 kg Nicole Weathers RN [facility] Work Phone: 07-25-2015 11:17-0400 Body Temperature 98.01 [degF] Nicole Weathers RN [facility] Work Phone: 05-09-2014 13:39-0500 Height 175.26 cm Nicole Weathers RN [facility] Work Phone: Encounters Encounter Date Encounter Type Care Provider Facility Start: 10-13-2023 End: 10-13-2023 Subsequent hospital visit by physician Olamide [facility] Work Phone: Radiology Comment on above: Acute cough [R05.1] Start: 10-13-2023 End: 10-13-2023 ambulatory ERIC LOZANO Facility:[facility] Start: 10-13-2023 End: 10-13-2023 Patient encounter procedure Katharine Valencia DIRECTOR OF GOLF.CHIEF NURSING OFFICER Work Phone: [facility] Comment on above: Acute cough (Primary Dx); URI, acute Start: 02-25-2023 End: 02-25-2023 ambulatory [facility] Facility:[facility] Start: 02-25-2023 End: 02-25-2023 Subsequent hospital visit by physician Olamide [facility] Work Phone: Radiology Comment on above: Closed nondisplaced fracture of proximal phalanx of lesser toe of right foot, initial encounter [S92.514A] Start: 02-11-2023 End: 02-11-2023 ambulatory [facility] Facility:[facility] Start: 02-11-2023 End: 02-11-2023 Patient encounter procedure Albert Hendricks Work Phone: Podiatry Comment on above: Closed nondisplaced fracture of proximal phalanx of lesser toe of right foot, initial encounter Start: 01-29-2023 End: 01-29-2023 Subsequent hospital visit by physician Olamide [facility] Work Phone: Radiology Comment on above: Toe injury, right, i nitial encounter [S99.921A] Start: 01-29-2023 End: 01-29-2023 ambulatory [facility] Facility:[facility] Start: 01-29-2023 End: 01-29-2023 Patient encounter procedure Mars Russo APRN.CNP Work Phone: [facility] Comment on above: Closed nondisplaced fracture of proximal phalanx of lesser toe of right foot, initial encounter (Primary Dx); Toe injury, right, initial encounter Start: 12-23-2022 End: 12-23-2022 [facility] Facility:[facility] Start: 12-23-2022 End: 12-23-2022 Patient encounter procedure Mars Russo APRN.CNP Work Phone: [facility] Comment on above: Lower resp. tract in fection (Primary Dx) Start: 09-26-2022 Telephone encounter Anny Roach APRN.CNP Work Phone: [facility] Comment on above: Results Start: 09-26-2022 End: 09-26-2022 Subsequent hospital visit by physician Olamide [facility] Work Phone: Radiology Comment on above: Acute cough [R05.1] Start: 09-26-2022 End: 09-26-2022 Office outpatient visit 25 minutes Faisal Colvinaleksandar BAKER.CHIEF NURSING OFFICER Work Phone: [facility] Comment on above: Acute cough (Primary Dx); Viral illness; Suspected COVID-19 virus infection Start: 08-15-2022 End: 08-15-2022 Patient encounter procedure Mars Russo APRN.CHIEF NURSING OFFICER Work Phone: [facility] Comment on above: Pain in salivary gla nd region (Primary Dx) Start: 04-13-2022 End: 04-13-2022 Patient encounter procedure Mars Russo APRN.CHIEF NURSING OFFICER Work Phone: [facility] Comment on above: Sinobronchitis (Prim vickie Dx) Start: 03-15-2022 Telephone encounter Daria moe PA-C Work Phone: [facility] Comment on above: Results Start: 03-14-2022 End: 03-14-2022 Patient encounter procedure Anny Roach APRN.CHIEF NURSING OFFICER Work Phone: [facility] Comment on above: URI, acute (Primary Dx) Start: 09-14-2021 End: 09-14-2021 Patient encounter procedure Anny Roach APRN.CHIEF NURSING OFFICER Work Phone: [facility] Comment on above: Cough (Primary Dx) Start: 09-07-2021 End: 09-07-2021 Patient encounter procedure Anny Roach APRN.CHIEF NURSING OFFICER Work Phone: [facility] Comment on above: Cough (Primary Dx) Start: 05-18-2021 End: 05-18-2021 Subsequent hospital visit by physician Olamide [facility] Work Phone: Radiology Comment on above: Toe injury, left, in itial encounter [S99.922A] Start: 12-22-2020 End: 12-22-2020 Subsequent hospital visit by physician Xr [facility] Susie Work Phone: Radiology Comment on above: URI, acute [J06.9] Procedures Date Procedure Procedure Detail Performing Clinician Start: 10-13-2023 Radiologic exam chest 2 views Katharine Valencia DIRECTOR OF GOLF.CHIEF NURSING OFFICER Work Phone: Start: 01-29-2023 Radex toe minimum 2 views Mars Russo DIRECTOR OF GOLF.CHIEF NURSING OFFICER Work Phone: Start: 09-26-2022 Radiologic exam chest 2 views Faisalflorencio Mancini DIRECTOR OF GOLF.CHIEF NURSING OFFICER Work Phone: Start: 05-18-2021 Radex toe minimum 2 views Vianey Hyde DIRECTOR OF GOLF.CHIEF NURSING OFFICER Work Phone: Start: 12-22-2020 Radiologic exam chest 2 views Katharine Gerard DIRECTOR OF GOLF.CHIEF NURSING OFFICER Work Phone: Start: 10-16-2016 End: 10-16-2016 Dietary management education, guidance, and counseling Ellie Lozano Start: 10-11-2016 Preoperative cardiovascular examination Pre-op cardiovascular exam Kelly Mehta RN Start: 01-22-2016 End: 10-16-2016 Screening for malignant neoplasm of breast Screening for breast cancer Kelly Mehta RN Start: 10-23-2015 End: 10-23-2015 *CMP Complete Metabolic Panel Ana Hackett Work Phone: Start: 10-23-2015 End: 10-23-2015 Ferritin Ana Hackett Work Phone: Start: 10-23-2015 End: 10-23-2015 Iron Ana Zhong Alacarlita Work Phone: Start: 10-23-2015 End: 10-23-2015 Iron binding capacity [Mass/volume] in Serum or Plasma Ana Hackett Work Phone: Start: 10-23-2015 End: 10-23-2015 Lactate dehydrogenase (LDH) Ana Hackett Work Phone: Start: 10-23-2015 End: 10-23-2015 Urate Perezstuart Hackett Work Phone: Start: 06-27-2015 End: 06-27-2015 *CMP Complete Metabolic Panel Perez Carlita Alam Work Phone: Start: 06-27-2015 End: 06-28-2015 Cobalamins (Vitamin B12) Ana Zhong Alam Work Phone: Start: 06-27-2015 End: 06-27-2015 Ferritin Ana Zhong Alam Work Phone: Start: 06-27-2015 End: 06-27-2015 Iron Ana Zhong Alam Work Phone: Start: 06-27-2015 End: 06-27-2015 Iron binding capacity [Mass/volume] in Serum or Plasma Ana Zhong Alam Work Phone: Start: 06-27-2015 End: 06-27-2015 Lactate dehydrogenase (LDH) Ana Zhong Alam Work Phone: Start: 06-27-2015 End: 06-27-2015 Urate Ana Zhong Alam Work Phone: Start: 01-03-2015 End: 01-03-2015 *CBC with Differential Perez Carlita Alam Work Phone: Start: 11-15-2014 End: 11-16-2014 *CMP Complete Metabolic Panel Perez Carlita Alam Work Phone: Start: 11-15-2014 End: 11-16-2014 Ferritin Ana Zhong Alam Work Phone: Start: 11-15-2014 End: 11-16-2014 Lactate dehydrogenase (LDH) Ana Zhong Alam Work Phone: Start: 11-15-2014 End: 11-16-2014 Urate Perez Carlita Alam Work Phone: Start: 08-15-2014 End: 11-08-2014 *CBC with Differential Perez M Alam Work Phone: Start: 08-15-2014 End: 08-15-2014 *CMP Complete Metabolic Panel Perez M Alam Work Phone: Start: 08-15-2014 End: 11-08-2014 *MISC [...] Work Phone: Start: 06-29-2007 Mammography Anny Roach APRN.CHIEF NURSING OFFICER Work Phone: Start: 06-26-2007 Lipid 1996 panel - Serum or Plasma Mars Russo APRN.CHIEF NURSING OFFICER Work Phone: Plan of Treatment Date Care Activity Detail Author Start: 06-16-2025 Screening for malign ant neoplasm of colon [facility] Start: 11-17-2024 Urine microalbumin profile DTa P,Tdap,Td Vaccine (2 - Td or Tdap) [facility] Start: 12-14-2023 Influenza vaccination Influenza Vacc ine (#1) [facility] Start: 04-14-2023 Advance Directive Discussion Advance Directive Discussion [facility] Start: 04-14-2023 Behavioral Health Screening Behavioral Health Screening [facility] Start: 12-13-2022 Influenza vaccination [facility] Start: 09-26-2022 End: 10-10-2022 Influenza virus A and B RNA and SARS-CoV-2 (COVID-19) N gene panel - Respiratory specimen by JANA with probe detection [facility] Work Phone: Comment on above: Expected: 09/26/2022 , Expires: 10/10/2022 Start: 04-14-2022 ADVANCE DIRECTIVE DISCUSSION ADVANCE DIRECTIVE DISCUSSION [facility] Start: 04-14-2022 DEPRESSION ASSESSMENT DEPRESSION ASS ESSMENT [facility] Start: 03-14-2022 End: 03-28-2022 Influenza virus A and B RNA and SARS-CoV-2 (COVID-19) N gene panel - Respiratory specimen by JANA with probe detection [facility] Work Phone: Comment on above: Expected: 03/14/2022 , Expires: 03/28/2022 Start: 12-13-2021 Influenza vaccination C [facility] Start: 04-14-2021 ADVANCE DIRECTIVE DISCUSSION ADVANCE DIRECTIVE DISCUSSION [facility] Start: 04-14-2021 DEPRESSION ASSESSMENT DEPRESSION ASS ESSMENT [facility] Start: 05-08-2018 Pneumococcal Vaccine : 65+ (3 - PPSV23 or PCV20) Pneumococcal Vaccine: 65+ (3 - PPSV23 or PCV20) [facility] Start: 01-23-2018 Pneumococcal Vaccine : 65+ (3 of 3 - PPSV23 or PCV20) Pneumococcal Vaccine: 65+ (3 of 3 - PPSV23 or PCV20) [facility] Start: 10-10-2017 End: 10-10-2017 Appointment Appointment [facility] Work Phone: Start: 01-20-2017 BONE DENSITY BONE DENSITY [facility] Start: 01-20-2017 Bone Density Screening Bone Density Screening [facility] Start: 01-20-2017 Screening for osteoporosis Bone Dens ity Screening [facility] Start: 10-16-2016 End: 10-16-2016 Appointment Appointment [facility] Work Phone: Start: 10-16-2016 End: 10-31-2016 Echocardiography Echocardiogram (complete) [facility] Work Phone: Start: 10-16-2016 End: 10-16-2016 Follow Up Appt 1 year Follow Up Appt 1 year [facility] Work Phone: Start: 10-16-2016 End: 10-16-2016 MMM MMM [facility] Work Phone: Start: 07-15-2016 End: 01-22-2016 *CBC w/Diff - oncology ONLY *CBC w/Diff - oncology ONLY [facility] Work Phone: Start: 07-15-2016 End: 01-22-2016 *CMP Complete Metabolic Panel *CMP Complete Metabolic Panel [facility] Work Phone: Start: 07-15-2016 End: 01-22-2016 *MISC - Miscellaneous Lab Test #1 *MISC - Miscellaneous Lab Test #1 [facility] Work Phone: Start: 07-15-2016 End: 01-22-2016 Cobalamins (Vitamin B12) *B-12 [facility] Work Phone: Start: 07-15-2016 End: 01-22-2016 Ferritin *Ferritin [facility] Work Phone: Start: 07-15-2016 End: 01-22-2016 Iron and Iron binding capacity panel - Serum or Plasma *IBC Iron & Total Iron Binding Capacity [facility] Work Phone: Start: 04-22-2016 End: 01-22-2016 *CBC w/Diff - oncology ONLY *CBC w/Diff - oncology ONLY [facility] Work Phone: Start: 01-22-2016 End: 07-25-2015 *CBC with Differential *CBC with Differential [facility] Work Phone: Start: 01-22-2016 End: 07-25-2015 *CMP Complete Metabolic Panel *CMP Complete Metabolic Panel [facility] Work Phone: Start: 01-22-2016 End: 01-22-2016 Echo exam of abdomen US Abdomen, limited [facility] Work Phone: Start: 01-22-2016 End: 07-25-2015 Ferritin *Ferritin [facility] Work Phone: Start: 01-22-2016 End: 07-25-2015 Iron *Iron [employer] Work Phone: Start: 01-22-2016 End: 07-25-2015 Iron binding capacity [Mass/volume] in Serum or Plasma *TIBC [employer] Work Phone: Start: 01-22-2016 End: 07-25-2015 Lactate dehydrogenase (LDH) *LDH -LDH (Lactate Dehydrogenase) [facility] Work Phone: Start: 01-22-2016 End: 01-22-2016 Mammogram, both breasts Mammogram, Diagnostic, both breasts [facility] Work Phone: Start: 01-22-2016 End: 01-22-2016 Mammogram, screening Mammogram, Screening, both breasts [employer] Work Phone: Start: 01-22-2016 End: 07-25-2015 Urate *Uric Acid Blood [employer] Work Phone: Start: 10-23-2015 End: 07-25-2015 *CBC with Differential *CBC with Differential [employer] Work Phone: Start: 10-23-2015 End: 10-23-2015 *CMP Complete Metabolic Panel *CMP Complete Metabolic Panel [employer] Work Phone: Start: 10-23-2015 End: 10-23-2015 Ferritin *Ferritin [employer] Work Phone: Start: 10-23-2015 End: 10-23-2015 Iron *Iron [employer] Work Phone: Start: 10-23-2015 End: 10-23-2015 Iron binding capacity [Mass/volume] in Serum or Plasma *TIBC [employer] Work Phone: Start: 10-23-2015 End: 10-23-2015 Lactate dehydrogenase (LDH) *LDH -LDH (Lactate Dehydrogenase) [facility] Work Phone: Start: 10-23-2015 End: 10-23-2015 Urate *Uric Acid Blood [employer] Work Phone: Start: 06-27-2015 End: 03-28-2015 *CBC with Differential *CBC with Differential [facility] Work Phone: Start: 06-27-2015 End: 06-27-2015 *CMP Complete Metabolic Panel *CMP Complete Metabolic Panel [facility] Work Phone: Start: 06-27-2015 End: 06-28-2015 Cobalamins (Vitamin B12) *B-12 [facility] Work Phone: Start: 06-27-2015 End: 06-27-2015 Ferritin *Ferritin [facility] Work Phone: Start: 06-27-2015 End: 03-28-2015 Folate *FOLS Folates-Folic Acid, Serum [facility] Work Phone: Start: 06-27-2015 End: 06-27-2015 Iron *Iron [facility] Work Phone: Start: 06-27-2015 End: 06-27-2015 Iron binding capacity [Mass/volume] in Serum or Plasma *TIBC [facility] Work Phone: Start: 06-27-2015 End: 06-27-2015 Lactate dehydrogenase (LDH) *LDH -LDH (Lactate Dehydrogenase) [facility] Work Phone: Start: 06-27-2015 End: 06-27-2015 Urate *Uric Acid Blood [facility] Work Phone: Start: 03-28-2015 End: 11-22-2014 *CBC with Differential *CBC with Differential [facility] Work Phone: Start: 02-14-2015 End: 11-22-2014 *CBC with Differential *CBC with Differential [facility] Work Phone: Start: 01-03-2015 End: 01-03-2015 *CBC with Differential *CBC with Differential [facility] Work Phone: Start: 11-15-2014 End: 11-08-2014 *CBC with Differential *CBC with Differential [facility] Work Phone: Start: 11-15-2014 End: 11-16-2014 *CMP Complete Metabolic Panel *CMP Complete Metabolic Panel [facility] Work Phone: Start: 11-15-2014 End: 11-16-2014 Ferritin *Ferritin [facility] Work Phone: Start: 11-15-2014 End: 11-16-2014 Lactate dehydrogenase (LDH) *LDH -LDH (Lactate Dehydrogenase) [facility] Work Phone: Start: 11-15-2014 End: 11-16-2014 Urate *Uric Acid Blood [facility] Work Phone: Start: 08-15-2014 End: 11-08-2014 *CBC with Differential *CBC with Differential [facility] Work Phone: Start: 08-15-2014 End: 08-15-2014 *CMP Complete Metabolic Panel *CMP Complete Metabolic Panel [facility] Work Phone: Start: 08-15-2014 End: 11-08-2014 *MISC - Miscellaneous Lab Test #1 *MISC - Miscellaneous Lab Test #1 [facility] Work Phone: Start: 08-15-2014 End: 08-16-2014 Cobalamins (Vitamin B12) *B-12 [facility] Work Phone: Start: 08-15-2014 End: 08-15-2014 Ferritin *Ferritin [facility] Work Phone: Start: 08-15-2014 End: 08-18-2014 Haptoglobin *HAP Haptoglobin [facility] Work Phone: Start: 08-15-2014 End: 08-15-2014 Iron *Iron [facility] Work Phone: Start: 08-15-2014 End: 08-15-2014 Iron binding capacity [Mass/volume] in Serum or Plasma *TIBC [facility] Work Phone: Start: 08-15-2014 End: 08-15-2014 Lactate dehydrogenase (LDH) *LDH -LDH (Lactate Dehydrogenase) [facility] Work Phone: Start: 08-15-2014 End: 08-15-2014 Urate *Uric Acid Blood [facility] Work Phone: Start: 06-25-2012 Lipid 1996 panel - S mona or Plasma Lipid Screening [facility] Start: 06-25-2012 Lipid panel Lipid Screening [facility] Start: 06-25-2012 LIPID SCREEN LIPID SCREEN [facility] Start: 2012 RSV Vaccine (1 - 1-d ose 60+ series) RSV Vaccine (1 - 1-dose 60+ series) [facility] Start: 2012 RSV Vaccine (1 - Ris k 60-74 years 1-dose series) RSV Vaccine (1 - Risk 60-74 years 1-dose series) [facility] Start: 06-25-2010 DIABETES SCREEN DIABETES SCREEN [facility] Start: 06-25-2010 Diabetes Screening Diabetes Screenin g [facility] Start: 06-28-2008 Mammography [facility] Start: 06-28-2008 Screening for malign ant neoplasm of breast Mammogram Screening [facility] Start: 01-20-2002 Influenza vaccination LUNG CANCER [facility] Start: 01-20-2002 Screening for malign ant neoplasm of lung Lung Cancer Screening [facility] Start: 01-20-2002 SHINGRIX VACCINE (1 of 2) VILLAR GRIX VACCINE (1 of 2) [facility] Start: 01-20-1997 COLOGUARD (FIT-DNA) COLOGUARD (FIT-D NA) [facility] Start: 01-20-1997 Colonoscopy COLONOSCOPY [facility] Start: 01-20-1997 COLORECTAL CANCER SCREENING COLORECTAL CANCER SCREENING [facility] Start: 01-20-[address] COLONOGRAPHY [facility] Start: 01-20-1997 FECAL OCCULT BLOOD FECAL OCCULT BLOO D [facility] Start: 01-20-1997 Screening for malign ant neoplasm of colon [facility] Start: 01-20-1997 SIGMOIDOSCOPY SIGMOIDOSCOPY [facility] Start: 01-20-1971 SHINGRIX VACCINE (1 of 2) VILLAR GRIX VACCINE (1 of 2) [facility] Start: 01-20-1971 Urine microalbumin profile DTAP,TDAP ,TD (1 - Tdap) [facility] Start: 01-20-1970 Anxiety Screening Anxiety Screening [facility] Start: 01-20-1970 Depression Screening Depression Scre ening [facility] Start: 01-20-1970 HEPATITIS C SCREENING HEPATITIS C [facility] Start: 01-20-1970 Hepatitis C screening Hepatitis C Sc juan [facility] Start: 1964 Adult depression scr eening assessment DEPRESSION SCREENING [facility] Start: 01-20-1963 Screening for malign ant neoplasm of cervix Cervical Cancer Screening [facility] Start: 01-20-1958 PNEUMOCOCCAL: 65+ (1 - PCV) PNEUMOCOCCAL: 65+ (1 - PCV) [facility] Start: 01-20-1957 COVID-19 VACCINE (#1) COVID-19 VACCI NE (#1) [facility] Start: 1952 COVID-19 VACCINE (#1) COVID-19 VACCI NE (#1) [facility] End: 03-12-2024 XR TOE AP/LAT/OBL RIGHT XR TOE AP/LAT/OBL RIGHT Radiology Routine Closed nondisplaced fracture of proximal phalanx of lesser toe of right foot, initial encounter 1 Occurrences starting 02/11/2023 until 03/12/2024 [facility] Work Phone: Comment on above: 1 Occurrences starti ng 02/11/2023 until 03/12/2024 XR TOE AP/LAT/OBL RIGHT XR TOE A P/LAT/OBL RIGHT Radiology Routine Closed nondisplaced fracture of proximal phalanx of lesser toe of right foot, initial encounter 02/25/2023 10:13 AM EST [facility] Work Phone: [facility] Immunizations Immunization Date Immunization Notes Care Provider Kody padilla 03-01-2019 influenza virus vacc ine, unspecified formulation Mars Russo APRN.CNP Work Phone: [facility] Payers Date Payer Category Payer Medicare MEDICARE MEDICAR E A AND B [id number] 2017-Present [phone] [place] [address] Medicare [id number] 2017 Medicare MEDICARE MEDICAR E A AND B [id number] 2017-Present [phone] [place] [address] Medicare [id number] 2017 Private Health Insurance HUMANA HUMANA MEDICARE SUPPLEMENT [id number] 2017-Present [phone] [address] [address] [place] [address] Indemnity [id number] 2017 Private Health Insurance HUMANA HUMANA MEDICARE SUPPLEMENT [id number] 2017-Present [phone] [address] [address] [place] [address] Indemnity [id number] 2017 Medicare [id number] 2017 Medicare [id number] Social History Date Type Detail Facility Start: 12-22-2020 [facility] Start: 04-14-1982 End: 04-14-2012 History of tobacco use Cigarette Smoker [facility] Start: 12-22-2020 End: 09-07-2021 Alcohol intake Current non-drinker of alcohol (finding) [facility] Start: 1950 Sex Assigned At Not on file C [facility] Start: 09-14-2021 End: 03-14-2022 Tobacco smoking status [facility] Ex-smoker [facility] Start: 12-22-2020 End: 09-14-2021 Cigarettes smoked current (pack per day) - Reported 1 [facility] Start: 12-22-2020 End: 09-14-2021 Tobacco use and exposure Smokeless tobacco non-user [facility] Start: 09-14-2021 End: 03-14-2022 Tobacco Comment d/c 2009 [facility] Start: 11-22-2020 End: 03-14-2022 Exposure to SARS-CoV-2 (event) Not sure [facility] Work Phone: Start: 04-14-1982 End: 04-14-2012 History of tobacco use Current smoker [facility] Start: 12-22-2020 End: 12-23-2022 Tobacco use panel [facility] National Score (1-10 0), lower number is lower risk Not on file [facility] Clinical Notes 07-15-2007 to 10-13-2023 Beto Adams RT(R) - 10/13/2023 9:40 AM Katharine Dumas APRN.CHIEF NURSING OFFICER - 10/13/2023 9:32 AM Shawna Swenson RT(R) - 02/25/2023 9:40 AM ESTPatient InstructionsPatient Instructions Note Date & Type Note Facility 10-13-2023 History of Presen t illness Narrative Radiology Service Progress Note PATIENT NAME: Ariella Godfrey DATE OF SERVICE: October 13, 2023 TIME: 9:40 AM PATIENT IDENTITY VERIFICATION COMPLETED USING TWO (2) IDENTIFIERS: Name and Date of confirmed by patient verbally. FALL SCREENING: Has the patient had 2 falls in the last year or 1 fall with injury or currently using an Ambulatory Assistive Device (Walker, Cane, Wheelchair, Crutches, etc.)? No PATIENT GENDER DATA: Female. status: : No status: NO. PATIENT RELEVANT IMPLANT DATA REVIEWED: Yes PATIENT PRESENTS WITH AN IMPLANTABLE OR ATTACHED STATEMENT SERVICES REPRESENTATIVE: No RADIOLOGY DEPARTMENT: General X-ray: Exam(s) Completed: Chest X-Ray PERIPHERAL IV DATA: Not applicable SIGNED BY: RT Maximino(Fabrice) October 13, 2023 9:40 AM documented in this encounter [facility] 10-13-2023 Note HNO ID: [id number] Author: BETO ADAMS RT(R) Service: Radiology Author Type: Technologist Type: Progress Notes Filed: 10/13/2023 09:47 Note Text: Radiology Service Progress Note PATIENT NAME: Ariella Godfrey DATE OF SERVICE: October 13, 2023 TIME: 9:40 AM PATIENT IDENTITY VERIFICATION COMPLETED USING TWO (2) IDENTIFIERS: Name and Date of confirmed by patient verbally. FALL SCREENING: Has the patient had 2 falls in the last year or 1 fall with injury or currently using an Ambulatory Assistive Device (Walker, Cane, Wheelchair, Crutches, etc.)? No PATIENT GENDER DATA: Female. status: : No status: NO. PATIENT RELEVANT IMPLANT DATA REVIEWED: Yes PATIENT PRESENTS WITH AN IMPLANTABLE OR ATTACHED STATEMENT SERVICES REPRESENTATIVE: No RADIOLOGY DEPARTMENT: General X-ray: Exam(s) Completed: Chest X-Ray PERIPHERAL IV DATA: Not applicable SIGNED BY: RT Maximino(R) October 13, 2023 9:40 AM [facility] 10-13-2023 Note HNO ID: [id number] Author: KATHARINE VALENCIA APRN.CHIEF NURSING OFFICER Service: ? Author Type: Nurse Practitioner Type: Progress Notes Filed: 10/13/2023 10:11 Note Text: This note was created using [employer]. Subjective Ariella Godfrey is a 73 year old female. 73 year old female with PMH GERD, PE and DVT (one month ago and on Eliquis) presents for illness. Acute onset 3 days ago +cough +productive green sputum +chest congestion +nasal congestion Cough keeping her up at night. +fatigue Denies fever or chills. Denies eye, ear or nose throat She used an old inhaler Used Robitussin Former tobacco smoker, citing 12 hours ago States that her PE and DVT was approximately one month ago, citing she had a procedure on her knee. 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 Denies hemoptysis Denies dyspnea. Denies CP. The history is provided by the patient. No speech language assistant was used. Cough This is a new problem. The current episode started more than 2 days ago. The problem occurs constantly. The problem has been gradually worsening. The cough is Productive of sputum. There has been no fever. Associated symptoms include ear congestion, headaches, rhinorrhea, shortness of breath and wheezing. Pertinent negatives include no chest pain, no chills, no sweats, no weight loss, no ear pain, no sore throat, no myalgias and no eye redness. Treatments tried: see HPI. The treatment provided no relief. She is not a smoker (quit 12 years ago). Her past medical history does not include bronchitis, pneumonia, bronchiectasis, COPD, emphysema or asthma. PAST MEDICAL HISTORY Diagnosis Date Esophageal reflux Mitral valve disorders(424.0) Other premature beats Rheumatoid arthritis(714.0) PAST SURGICAL HISTORY Procedure Laterality Date LIG/TRNSXJ FLP TUBE ABDL/VAG APPR UNI/BI 1976 Tubal ligation PAST SURGICAL HISTORY OF bilateral lumpectomies- benign PAST SURGICAL HISTORY OF 07/22/2007 Left plantar fascitomy and left 5th hammertoe correction ALLERGIES Amoxicillin-Pot Clavulanate and Doxycycline MEDICATIONS ELIQUIS 5 mg tab(s) famotidine (PEPCID) 20 mg tablet potassium chloride [...] one, then, 1 tablet daily until gone. albuterol HFA (PROVENTIL HFA, VENTOLIN HFA) 90 mcg/actuation inhaler Inhale 2 Puffs as instructed every 4 hours as needed for wheezing/shortness of breath. Inhalational Spacing Device 1 Device one time only for 1 dose. predniSONE (DELTASONE) 10 mg tablet Take 4 tabs daily for 3 days, then 2 tabs daily for 3 days, then 1 tab daily for 3 days with food. benzonatate (TESSALON PERLES) 100 mg capsule Take 1 capsule by mouth three times daily as needed for cough. (Patient not taking: Reported on 10/13/2023) FAMILY HISTORY Problem Relation Age of Onset Breast Cancer Mother None Father father unknown Social History Tobacco Use Smoking status: Former Packs/day: 1.00 Years: 30.00 Additional pack years: 0.00 Total pack years: 30.00 Types: Cigarettes Quit date: 2012 Years since quittin.5 Smokeless tobacco: Never Tobacco comments: d/c 2009 Substance Use Topics Alcohol use: No Drug use: No Review of Systems Constitutional: Positive for fatigue. Negative for activity change, appetite change, chills and weight loss. HENT: Positive for congestion and rhinorrhea. Negative for ear pain and sore throat. Eyes: Negative for discharge, redness and itching. Respiratory: Positive for cough, shortness of breath and wheezing. Negative for apnea, choking and chest tightness. Cardiovascular: Negative for chest pain. Gastrointestinal: Negative for abdominal pain, diarrhea and vomiting. Musculoskeletal: Negative for back pain and myalgias. Skin: Negative for color change, pallor, rash and wound. Allergic/Immunologic: Negative for environmental allergies, food allergies and immunocompromised state. Neurological: Positive for headaches. Negative for dizziness, facial asymmetry, light-headedness and numbness. Hematol (more content not included)... [facility] 10-13-2023 History of Presen t illness Narrative This note was created using [employer]. Subjective Ariella Godfrey is a 73 year old female. 73 year old female with PMH GERD, PE and DVT (one month ago and on Eliquis) presents for illness. Acute onset 3 days ago +cough +productive green sputum +chest congestion +nasal congestion Cough keeping her up at night. +fatigue Denies fever or chills. Denies eye, ear or nose throat She used an old inhaler Used Robitussin Former tobacco smoker, citing 12 hours ago States that her PE and DVT was approximately one month ago, citing she had a procedure on her knee. 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 Denies hemoptysis Denies dyspnea. Denies CP. The history is provided by the patient. No speech language assistant was used. Cough This is a new problem. The current episode started more than 2 days ago. The problem occurs constantly. The problem has been gradually worsening. The cough is Productive of sputum. There has been no fever. Associated symptoms include ear congestion, headaches, rhinorrhea, shortness of breath and wheezing. Pertinent negatives include no chest pain, no chills, no sweats, no weight loss, no ear pain, no sore throat, no myalgias and no eye redness. Treatments tried: see HPI. The treatment provided no relief. She is not a smoker (quit 12 years ago). Her past medical history does not include bronchitis, pneumonia, bronchiectasis, COPD, emphysema or asthma. PAST MEDICAL HISTORY Diagnosis Date Esophageal reflux Mitral valve disorders(424.0) Other premature beats Rheumatoid arthritis(714.0) PAST SURGICAL HISTORY Procedure Laterality Date LIG/TRNSXJ FLP TUBE ABDL/VAG APPR UNI/BI 1976 Tubal ligation PAST SURGICAL HISTORY OF bilateral lumpectomies- benign PAST SURGICAL HISTORY OF 07/22/2007 Left plantar fascitomy and left 5th hammertoe correction ALLERGIES Amoxicillin-Pot Clavulanate and Doxycycline MEDICATIONS ELIQUIS 5 mg tab(s) famotidine (PEPCID) 20 mg tablet potassium chloride [...] one, then, 1 tablet daily until gone. albuterol HFA (PROVENTIL HFA, VENTOLIN HFA) 90 mcg/actuation inhaler Inhale 2 Puffs as instructed every 4 hours as needed for wheezing/shortness of breath. Inhalational Spacing Device 1 Device one time only for 1 dose. predniSONE (DELTASONE) 10 mg tablet Take 4 tabs daily for 3 days, then 2 tabs daily for 3 days, then 1 tab daily for 3 days with food. benzonatate (TESSALON PERLES) 100 mg capsule Take 1 capsule by mouth three times daily as needed for cough. (Patient not taking: Reported on 10/13/2023) FAMILY HISTORY Problem Relation Age of Onset Breast Cancer Mother None Father father unknown Social History Tobacco Use Smoking status: Former Packs/day: 1.00 Years: 30.00 Additional pack years: 0.00 Total pack years: 30.00 Types: Cigarettes Quit date: 2012 Years since quittin.5 Smokeless tobacco: Never Tobacco comments: d/c 2009 Substance Use Topics Alcohol use: No Drug use: No Review of Systems Constitutional: Positive for fatigue. Negative for activity change, appetite change, chills and weight loss. HENT: Positive for congestion and rhinorrhea. Negative for ear pain and sore throat. Eyes: Negative for discharge, redness and itching. Respiratory: Positive for cough, shortness of breath and wheezing. Negative for apnea, choking and chest tightness. Cardiovascular: Negative for chest pain. Gastrointestinal: Negative for abdominal pain, diarrhea and vomiting. Musculoskeletal: Negative for back pain and myalgias. Skin: Negative for color change, pallor, rash and wound. Allergic/Immunologic: Negative for environmental allergies, food allergies and immunocompromised state. Neurological: Positive for headaches. Negative for dizziness, facial asymmetry, light-headedness and numbness. Hematological: Negative for adenopathy. Does not bruise/bleed easily. Psychiatric/Behavioral: Negative for agitation and behavioral problems. Objective BP 128/80 Pulse 96 Temp 36.9 C (98.5 F) Resp 20 Wt 89.2 kg (196 lb 10.4 oz) SpO2 99% Physical Exam Vitals and nursing note reviewed. Constitutional: General: She is not in acute distress. Appearance: Normal appearance. She is normal weight. She is not ill-appearing, toxic-appearing or diaphoretic. Comments: Elderly appearing, but non toxic HENT: Head: Normocephalic and atraumatic. Right Ear: Ear canal and external ear normal. Left Ear: Ear canal and external ear normal. Nose: Congestion present. No rhinorrhea. Mouth/Throat: Mouth: Mucous membranes are moist. Pharynx: No oropharyngeal exudate or posterior oropharyngeal erythema. Eyes: General: Right eye: No discharge. Left eye: No discharge. Extraocular Movements: Extraocular movements intact. Conjunctiva/sclera: Conjunctivae normal. Pupils: Pupils are equal, round, and reactive to light. Cardiovascular: Rate and Rhythm: Normal rate and regular rhythm. Pulses: Normal pulses. Heart sounds: Normal heart sounds. No murmur heard. No friction rub. Pulmonary: Effort: Pulmonary effort is normal. No respiratory distress. Breath sounds: No stridor. Wheezing (exp wheezes noted bilateral upper anterior. No flail chest. No retractions.) present. No rhonchi or rales. Chest: Chest wall: No tenderness. Abdominal: General: Abdomen is flat. There is no distension. Palpations: Abdomen is soft. There is no mass. Tenderness: There is no abdominal tenderness. There is no right CVA tenderness, left CVA tenderness, guarding or rebound. Hernia: No hernia is present. Musculoskeletal: General: No swelling, tenderness, deformity or signs of injury. Normal range of motion. Cervical back: Normal range of motion and neck supple. No rigidity. Right lower leg: No edema. Left lower leg: No edema. Lymphadenopathy: Cervical: Cervical adenopathy present. Skin: General: Skin is warm and dry. Capillary Refill: Capillary refill takes less than 2 seconds. Coloration: Skin is not jaundiced or pale. Findings: No bruising, erythema, lesion or rash. Neurological: General: No focal deficit present. Mental Status: She is alert and oriented to person, place, and time. Cranial Nerves: No cranial nerve deficit. Sensory: No sensory deficit. Motor: No weakness. Coordination: Coordination normal. Gait: Gait normal. Psychiatric: Mood and Affect: Mood normal. Behavior: Behavior normal. Thought Content: Thought content normal. Judgment: Judgment normal. Assessment and Plan ASSESSMENT/PLAN: 1. Acute cough - ICD9: 786.2, ICD10: R05.1 (primary diagnosis) X 3 days - XR CHEST 2V FRONTAL/LAT-Interval increase in size of nodular opacity in the inferior retrosternal space. A dedicated CT chest study may be obtained for further evaluation. 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 Denies hemoptysis Denies dyspnea. Denies CP. Endorses history of being provided albuterol, But denies dx asthma or COPD ?? With history of tobacco usage RX Zithromax (allergy to PCN and Doxy) RX Prednisone taper RX Albuterol 2. URI, acute - ICD9: 465.9, ICD10: J06.9 - Symptomatic treatment with prn analgesia - Supportive care with fluids and rest - The patient may also use warm salt water gargles, throat lozenges and/or OTC throat spray as needed and nasal saline gtts and suction prn. - Follow up in 3-5 days if symptoms persist or sooner if worsening of symptoms Katharine Valencia APRN.CHIEF NURSING OFFICER documented in this encounter [facility] 02-25-2023 History of Presen t illness [...] RT Romario(Fabrice) February 25, 2023 11:07 AM documented in this encounter [facility] 02-25-2023 Note HNO ID: [id number] Author: Shawna Florence RT(R) Service: ? Author [...] RT Romario(R) February 25, 2023 11:07 AM [facility] 02-11-2023 Instructions Albert Hendricks - 02/11/2023 9:08 AM EDT You have fracture of right 2nd toe. Continue with post-op shoe (surgical) or firm sole sneaker Repeat xrays in 2 weeks documented in this encounter [facility] 02-11-2023 Note HNO ID: [id number] Author: Albert Hendricks Service: ? Author Type: [...] Duration Units: Weeks Frequency: Continuous Intervention/Comfort measure: Reposition;Relaxation;Medication No results found for: HBA1C PCP: Eric [...] quittin.8 Smokeless tobacco: Never Tobacco comments: d/c 2010 Substance Use Topics Alcohol use: No Drug [...] good color, t (more content not included)... [facility] 02-11-2023 History of Presen t illness Narrative [...] Duration Units: Weeks Frequency: Continuous Intervention/Comfort measure: Reposition;Relaxation;Medication No results found for: HBA1C PCP: Eric [...] phalanx and compression fracture of dipj ASSESSMENT: (S92.514A) Closed nondisplaced fracture of proximal phalanx of lesser toe of right foot, initial encounter PLAN: 1. History and physical examination performed. 2. XR reviewed with patient and interpreted today 3. Discussed fracture of right 2nd toe. Continue with post-op shoe or firm sole sneaker 4. Repeat xrays in 2 weeks Albert Hendricks DPM Podiatry [address] [facility] [address] Dept: [phone] Dept AMB ROOMING INTAKE FLOWSHEET DATA Pain Pain Level: 6 Pain Location: Toe Description: Burning Duration Amount of Time: 3 Duration Units: Weeks Frequency: Continuous Intervention/Comfort measure: Reposition, Relaxation, Medication Patient presents with: Right Foot - New, Pain, Fracture, Swelling Shanti Lozano LPN \ documented in this encounter [facility] 02-11-2023 Note HNO ID: [id number] Author: Shanti Lozano LPN Service: ? Author Type: LICENSED NURSE Type: Progress Notes Filed: 02/11/2023 9:12 AM Note Text: AMB ROOMING INTAKE FLOWSHEET DATA Pain Pain Level: 6 Pain Location: Toe Description: Burning Duration Amount of Time: 3 Duration Units: Weeks Frequency: Continuous Intervention/Comfort measure: Reposition, Relaxation, Medication Patient presents with: Right Foot - New, Pain, Fracture, Swelling Shanti Lozano LPN [facility] 01-29-2023 Instructions Mars Russo APRN.JARED - 01/29/2023 1:12 PM EDT ASSESSMENT/PLAN: 1. Closed nondisplaced fracture of proximal phalanx of lesser toe of right foot, initial encounter - ICD9: 826.0, ICD10: S92.514A (primary diagnosis) Post op shoe provided Pain relief/otc Will schedule follow up with podiatry Follow up for worsening symptoms. - CONSULT TO PODIATRY documented in this encounter [facility] 01-29-2023 Note HNO ID: [id number] Author: Mars Russo APRN.CNP Service: ? Author [...] digit. Dictated by : MD Mars MUSTAFA APRN.[facility] 01-29-2023 History of Presen t illness Narrative [...] digit. Dictated by : MD Mars MUSTAFA APRN.CHIEF NURSING OFFICER documented in this encounter [facility] 01-29-2023 History of Presen t illness Narrative Radiology [...] IV DATA: Not applicable SIGNED BY: RT Jesus(Fabrice) January 29, 2023 12:34 PM documented in this encounter [facility] 01-29-2023 Note HNO ID: [id number] Author: Sherice Ramos RT(R) Service: Radiology Author [...] PERIPHERAL IV DATA: Not applicable SIGNED BY: Sherice Ramos, RT(R) January 29, 2023 12:34 PM [facility] 12-23-2022 Note HNO ID: [id number] Author: Mars Russo APRN.CHIEF NURSING OFFICER Service: ? Author Type: Nurse Practitioner Type: [...] Cigarettes Smokeless tobacco: Never Tobacco comments: d/c 2010 Substance Use Topics Alcohol use: No Drug [...] - AZITHROMYCIN 250 MG TABLET Mars Russo APRN.CHIEF NURSING OFFICER [facility] 12-23-2022 History of Presen t illness Narrative [...] Mars Russo APRN.JARED documented in this encounter [facility] 09-26-2022 Miscellaneous Notes Pt was notified of the results. Pt verbalized understanding. Homa Bhat MA Negative for COVID and flu please notify thank you documented in this encounter [facility] 09-26-2022 Instructions Faisal Mancini APRN.CNP - 09/26/2022 9:04 AM EDT How to [...] concerning to you. documented in this encounter [facility] 09-26-2022 History of Presen t illness Narrative [...] of care. This note was generated using [email or web address] software. It may contain errors in wording, punctuation, or spelling. Faisal Mancini APRN.JARED documented in this encounter [facility] 08-15-2022 History of Presen t illness [...] Mars Russo APRN.JARED documented in this encounter [facility] 04-13-2022 Instructions Mars Russo APRN.CNP - [...] go to ER documented in this encounter [facility] 04-13-2022 History of Presen t illness Narrative [...] Mars Russo APRN.JARED documented in this encounter [facility] 03-15-2022 Miscellaneous Notes Patient notified of results [...] days of symptoms. documented in this encounter [facility] 03-14-2022 History of Presen t illness Narrative CC: Patient presents with: Nasal Congestion: Chest congestion, fever, cough, x1 day. HPI: Ariella Godfrey is a 72 year old female who presents to the office with complaint of chest congestion, cough, nonproductive, and fever for the past day. Symptoms are staying the same. Associated symptoms includes cough. Denies nausea, vomiting , and diarrhea. Treatments tried include nothing so far. with no relief of symptoms. Sick contacts: unknown. History of asthma, frequent episodes of bronchitis, chronic bronchitis, bronchiectasis or COPD: No Smoker: No Seasonal/environmental allergies: No The ROS is otherwise negative. The patient's pmh, medications, allergies, and past visits are reviewed. PHYSICAL EXAM: BP 142/86 Pulse 74 Temp 37.8 C (100 F) Resp 18 Wt 106.7 kg (235 lb 3.2 oz) SpO2 97% General appearance: alert, cooperative, pleasant, in no acute distress Head: Normocephalic Eyes: EOM's intact, conjunctiva pink and moist, no icterus, sclera white, non-injected Ears: Right ear: External ear/canal- Normal, TM - clear with good landmarks. Left ear: External ear/canal- Normal, TM - clear with good landmarks Oropharynx:moist without lesions, No erythema, exudates or tonsillar hypertrophy. Heart: Negative. RRR without obvious murmur, gallop, or rubs. No ectopy. Lungs: clear to auscultation, without rales or wheeze, good air exchange PAST MEDICAL HISTORY Diagnosis Date Esophageal reflux [...] Topics Alcohol use: No Drug use: No ASSESSMENT/PLAN: 1. URI, acute - ICD9: 465.9, ICD10: J06.9 - COVID WITH FLUA+B, ROUTINE Prescription instructions reviewed with patient as applicable. Potential red flag symptoms discussed with the patient. Reviewed appropriate action plan to take if red flag symptoms occur. Patient agreeable to treatment plan. Anny Roach APRN.JARED documented in this encounter [facility] 09-14-2021 History of Presen t illness Narrative CC: Patient presents with: Cough: Pt reported SOB w/ coughing, denied chest pain, nasal congestion HPI: Ariella Godfrey is a 71 year old female who presents to the office with complaint of chest congestion and cough, nonproductive for 10 days. Symptoms are worsening Associated symptoms includes cough. Denies fever, nausea, vomiting and diarrhea. Treatments tried include nothing so far. with no relief of symptoms. Sick contacts: unknown. History of asthma, frequent episodes of bronchitis, chronic bronchitis, bronchiectasis or COPD: No Smoker: No Seasonal/environmental allergies: No The ROS is otherwise negative. The patient's pmh, medications, allergies, and past visits are reviewed. PHYSICAL EXAM: BP 168/94 Pulse 85 Temp 37.2 C (99 F) Resp 22 Wt 107.8 kg (237 lb 9.6 oz) SpO2 97% General appearance: alert, cooperative, pleasant, in no acute distress Head: Normocephalic Eyes: EOM's intact, conjunctiva pink and moist, no icterus, sclera white, non-injected Heart: Negative. RRR without obvious murmur, gallop, or rubs. No ectopy. 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 amoxicillin-clavulanic acid (AUGMENTIN) 875-125 mg per tablet Take 1 tablet by mouth twice daily for 10 days. albuterol HFA (PROVENTIL HFA, VENTOLIN HFA) 90 mcg/actuation inhaler Inhale 2 Puffs as instructed every 6 hours as needed for wheezing/shortness of breath. Inhalational Spacing Device 1 Device one time only for 1 dose. predniSONE (DELTASONE) 20 mg tablet Take 2 tablets by mouth once daily for 5 days. Take daily with food. FAMILY HISTORY Problem Relation Age of Onset Breast Cancer Mother None Father father unknown Social History Tobacco Use Smoking status: Former Smoker Packs/day: 1.00 Years: 30.00 Pack years: 30.00 Types: Cigarettes Smokeless tobacco: Never Used Tobacco comment: d/c 2009 Substance Use Topics Alcohol use: No Drug use: No ASSESSMENT/PLAN: 1. Cough - ICD9: 786.2, ICD10: R05.9 Augmentin bid for 10 days, Albuterol PRN, prednisone daily for 5 days. Prescription instructions reviewed with patient as applicable. Potential red flag symptoms discussed with the patient. Reviewed appropriate action plan to take if red flag symptoms occur. Patient agreeable to treatment plan. Anny Roach APRN.JARED documented in this encounter [facility] 09-07-2021 History of Presen t illness Narrative CC: Patient presents with: Cough: wheezing, congestion x this AM said she woke up 2 hours ago sick. Denies viral swabs at this time. HPI: Ariella Godfrey is a 71 year old female who presents to the office with complaint of chest congestion, cough, nonproductive and wheezing since this morning. Symptoms are staying the same. Associated symptoms includes cough. Denies fever, nausea, vomiting and diarrhea. Treatments tried include nothing so far. with no relief of symptoms. Sick contacts: unknown. History of asthma, frequent episodes of bronchitis, chronic bronchitis, bronchiectasis or COPD: No Smoker: No Seasonal/environmental allergies: No The ROS is otherwise negative. The patient's pmh, medications, allergies, and past visits are reviewed. PHYSICAL EXAM: BP 152/82 Pulse 82 Temp 36.8 C (98.3 F) Resp 24 Wt 110.7 kg (244 lb) SpO2 93% General appearance: alert, cooperative, pleasant, in no acute distress Head: Normocephalic Eyes: EOM's intact, conjunctiva pink and moist, no icterus, sclera white, non-injected Heart: Negative. RRR without obvious murmur, gallop, or rubs. No ectopy. Lungs: clear to auscultation, without rales or wheeze, good air exchange PAST MEDICAL HISTORY Diagnosis Date Esophageal reflux Mitral valve disorders(424.0) Other premature beats Rheumatoid arthritis(714.0) PAST SURGICAL HISTORY Procedure Laterality Date LIG/TRNSXJ FLP TUBE ABDL/VAG APPR UNI/BI 1976 Tubal ligation PAST SURGICAL HISTORY OF bilateral lumpectomies- benign PAST SURGICAL HISTORY OF 07/22/2007 Left plantar fascitomy and left 5th hammertoe correction ALLERGIES Doxycycline and Environmental [Other] MEDICATIONS benzonatate (TESSALON PERLES) 100 mg capsule Take [...] Take one(1) tablet twice daily. predniSONE (DELTASONE) 5 mg tablet TAKE 2 TABLETS TWICE DAILY for 4 days then take 2 tablets in the am and 1 tablet pm for 4 days then take 1 tablet TWICE DAILY for 4 days then TAKE 1 TABLET am and 1/2 tablet pm for 4 days then TAKE 1 TABLET am for 10 days then take 1/2 tablet am for 10 days FAMILY HISTORY Problem Relation Age of Onset Breast Cancer Mother None Father father unknown Social History Tobacco Use Smoking status: Current Every Day Smoker Packs/day: 1.00 Years: 30.00 Pack years: 30.00 Types: Cigarettes Smokeless tobacco: Never Used Substance Use Topics Alcohol use: No Drug use: No ASSESSMENT/PLAN: 1. Cough - ICD9: 786.2, ICD10: R05.9 At this time instructed to use over the counter medication for supportive therapy. Follow up in 8-10 days if symptoms are worsening or sooner if she develops any shortness of breath. Potential red flag symptoms discussed with the patient. Reviewed appropriate action plan to take if red flag symptoms occur. Patient agreeable to treatment plan. Anny Roach APRN.JARED documented in this encounter [facility] 05-18-2021 History of Presen t illness Narrative Radiology Service Progress Note PATIENT NAME: Ariella Godfrey DATE OF SERVICE: May 18, 2021 TIME: 4:14 PM PATIENT IDENTITY VERIFICATION COMPLETED USING TWO [...] X-ray: Exam(s) Completed: Lower Extremity X-Ray(s): Toes, Left PERIPHERAL IV DATA: Not applicable SIGNED BY: RT Jesus(R) May 18, 2021 4:14 PM documented in this encounter [facility] 12-22-2020 History of Presen t illness Narrative Radiology Service Progress Note PATIENT NAME: Ariella Godfrey DATE OF SERVICE: December 22, 2020 TIME: 10:57 AM PATIENT IDENTITY VERIFICATION COMPLETED USING TWO [...] IV DATA: Not applicable SIGNED BY: RT Tino(R) December 22, 2020 10:57 AM documented in this encounter [facility] 07-15-2007 History of Past i llness Narrative Problem Noted Date Resolved Date Abnormality of gait 07/15/2007 07/15/2007 documented as of this encounter (statuses as of 09/07/2021) [facility] History of Past illness Narrative* Problem Noted Date Resolved Date Abnormality of gait 07/15/2007 07/15/2007 documented as of this encounter (statuses as of 09/14/2021) [facility] History of Past illness Narrative* Problem Noted Date Resolved Date Abnormality of gait 07/15/2007 07/15/2007 documented as of this encounter (statuses as of 03/14/2022) [facility] History of Past illness Narrative* Problem Noted Date Resolved Date Abnormality of gait 07/15/2007 07/15/2007 documented as of this encounter (statuses as of 03/15/2022) [facility] History of Past illness Narrative* Problem Noted Date Resolved Date Abnormality of gait 07/15/2007 07/15/2007 documented as of this encounter (statuses as of 04/18/2022) [facility] History of Past illness Narrative* Problem Noted Date Resolved Date Abnormality of gait 07/15/2007 07/15/2007 documented as of this encounter (statuses as of 08/16/2022) [facility] History of Past illness Narrative* Problem Noted Date Resolved Date Abnormality of gait 07/15/2007 07/15/2007 documented as of this encounter (statuses as of 09/26/2022) [facility] History of Past illness Narrative* Problem Noted Date Resolved Date Abnormality of gait 07/15/2007 07/15/2007 documented as of this encounter (statuses as of 09/27/2022) [facility] History of Past illness Narrative* Problem Noted Date Diagnosed Date Resolved Date Abnormality of gait 07/15/2007 07/15/19 08 documented as of this encounter (statuses as of 12/23/2022) [address]02-2008 History of Past illness Narrative* Problem Noted Date Diagnosed Date Resolved Date Abnormality of gait 07/15/2007 07/15/19 08 documented as of this encounter (statuses as of 01/29/2023) [address]-2008 History of Past illness Narrative* Problem Noted Date Diagnosed Date Resolved Date Abnormality of gait 07/15/2007 07/15/19 08 documented as of this encounter (statuses as of 02/11/2023) [facility] History of Past illness Narrative* Problem Noted Date Diagnosed Date Resolved Date Abnormality of gait 07/15/2007 07/15/19 08 documented as of this encounter (statuses as of 02/26/2023) [facility] note* Diagnosis Cough- Primary [facility] [place] [facility] Diagnosis Cough- Primary [facility] [place] [facility]* Diagnosis URI, acute- Primary Acute upper respiratory infections of unspecified site documented in this encounter [facility] note* Diagnosis Sinobronchitis- Primary Unspecified sinusitis (chronic) documented in this encounter [facility] note* Diagnosis Pain in salivary gland region- Primary documented in this encounter [facility] note* Diagnosis Acute cough- Primary Viral illness Unspecified viral infection, in conditions classified elsewhere and of unspecified site Suspected COVID-19 virus infection documented in this encounter [facility] note* Diagnosis Lower resp. tract infection- Primary Other diseases of respiratory system, not elsewhere classified documented in this encounter [facility] note* Diagnosis Closed nondisplaced fracture of proximal phalanx of lesser toe of right foot, initial encounter- Primary Toe injury, right, initial encounter documented in this encounter [facility] note* Diagnosis Closed nondisplaced fracture of proximal phalanx of lesser toe of right foot, initial encounter documented [facility] this [facility] [place] [facility]* Diagnosis Closed nondisplaced fracture of proximal phalanx of lesser toe of right foot, initial encounter documented in this encounter [facility] [place] [facility]* Diagnosis Acute cough- Primary URI, acute Acute upper respiratory infections of unspecified site Acute cough documented in this encounter [facility] note* Diagnosis Acute cough documented in this encounter [facility] [place] [facility]* Diagnosis Acute cough documented in this encounter [facility] [place] [facility]* Diagnosis Toe injury, left, initial encounter documented in this encounter [facility] [place] [facility]* Diagnosis URI, acute Acute upper respiratory infections of unspecified site documented in this encounter [facility] for referral (narrative)* Diagnostic Procedure Only (Routine) - Pending Review Specialty Diagnoses / Procedures Referred By Contac t Referred To Contact XR IMAGING Diagnoses Closed nondisplaced fracture of proximal phalanx of lesser toe of right foot, initial encounter Procedures XR TOE AP/LAT/OBL RIGHT RADEX TOE MINIMUM 2 VIEWS Albert Hendricks [address] [place] [address] [place] [address] Referral ID Status Reason Start Date Expiration Date Visits Requested Visits Authorized [id number] Pending Review Auto-Generat ed Referral 03/12/2024 1 1 [facility] for referral (narrative)* Diagnostic Procedure Only (Urgent) - Closed Specialty Diagnoses / Procedures Referred By Contac t Referred To Contact XR IMAGING Diagnoses Toe injury, left, initial encounter Procedures XR TOE AP/LAT/OBL LEFT RADEX TOE MINIMUM 2 VIEWS Vianey Chamberlain APRN.CHIEF NURSING OFFICER [address] [place] [address] [place] [address] Referral ID Status Reason Start Date Expiration Date V isits Requested Visits Authorized [id number] Closed Auto-Generate d Referral 05/18/2021 06/17/2022 1 1 [facility] for visit Narrative* Diagnostic Procedure Only (Routine) - Closed Specialty Diagnoses / Procedures Referred By Contac t Referred To Contact XR IMAGING Diagnoses Closed nondisplaced fracture of proximal phalanx of lesser toe of right foot, initial encounter Procedures XR TOE AP/LAT/OBL RIGHT RADEX TOE MINIMUM 2 VIEWS Albert Hendricks [address] [place] [address] [place] [address] Referral ID Status Reason Start Date Expiration Date V isits Requested Visits Authorized [id number] Closed Auto-Generate d Referral 02/11/2023 03/12/2024 1 1 [facility] for visit Narrative* Diagnostic Procedure Only (Urgent) - Closed Specialty Diagnoses / Procedures Referred By Contac t Referred To Contact XR IMAGING Diagnoses Toe injury, right, initial encounter Procedures XR TOE AP/LAT/OBL RIGHT RADEX TOE MINIMUM 2 VIEWS Mars Russo APRN.CHIEF NURSING OFFICER [address] [place] [address] [place] [address] Referral ID Status Reason Start Date Expiration Date V isits Requested Visits Authorized [id number] Closed Auto-Generate d Referral 01/29/2023 02/28/2024 1 [facility] Diagnostic Procedure Only (Urgent) - Closed Specialty Diagnoses / Procedures Referred By Contac t Referred To Contact XR IMAGING Diagnoses Toe injury, left, initial encounter Procedures XR TOE AP/LAT/OBL LEFT RADEX TOE MINIMUM 2 VIEWS Vianey Chamberlain, OLIVIA.CHIEF NURSING OFFICER [address] [place] [address] [place] [address] Referral ID Status Reason Start Date Expiration Date V isits Requested Visits Authorized [id number] Closed Auto-Generate d Referral 05/18/2021 06/17/2022 1 1 [facility] Concerns Infection Onset Date Last Indicated Resolved Time COVID-19 Rule-Out 03/14/2022 03/14/2022 Infection Onset Date Last Indicated Resolved Time COVID-19 Confirmed 03/14/2022 03/14/2022 Infection Onset Date Last Indicated Resolved Time COVID-19 Rule-Out 09/26/2022 09/26/2022 Infection Onset Date Last Indicated Resolved Time COVID-19 Rule-Out 09/26/2022 09/26/2022 09/26/2022 6:36 PM EDT Reason for Referral Specialty Diagnoses / Procedures Referred By Contac t Referred To Contact Podiatry Diagnoses Closed nondisplaced fracture of proximal phalanx of lesser toe of right foot, initial encounter Procedures CONSULT TO PODIATRY OFFICE/OUTPATIENT [facility] 60-74 MINUTES Mars Russo, OLIVIA.CHIEF NURSING OFFICER [address] [place] [address] Referral ID Status Reason Start Date Expiration Date Visits Requested Visits Authorized [id number] Authorized PCP Requested Referral 01/29/2024 1 1 Specialty Diagnoses / Procedures Referred By Contac t Referred To Contact XR IMAGING Diagnoses Toe injury, right, initial encounter Procedures XR TOE AP/LAT/OBL RIGHT RADEX TOE MINIMUM 2 VIEWS Mars Russo APRN.CHIEF NURSING OFFICER [address] [facility] [address] [place] [address] Referral ID Status Reason Start Date Expiration Date V isits Requested Visits Authorized [id number] Closed Auto-Generate d Referral 01/29/2023 02/28/2024 1 [...] or prosecute any alcohol or drug abuse patient.[facility] the event this information is protected by the Federal Confidentiality of Alcohol and Drug Abuse Patient Records regulations: The Federal rules restrict any use of the information to criminally investigate or prosecute any alcohol or drug abuse patient.[facility] the event this information is protected by the Federal Confidentiality of Alcohol and Drug Abuse Patient Records regulations: The Federal rules restrict any use of the information to criminally investigate or prosecute any alcohol or drug abuse patient.[facility] the event this information is protected by the Federal Confidentiality of Alcohol and Drug Abuse Patient Records regulations: The Federal rules restrict any use of the information to criminally investigate or prosecute any alcohol or drug abuse patient.[facility] the event this information is protected by the Federal Confidentiality of Alcohol and Drug Abuse Patient Records regulations: The Federal rules restrict any use of the information to criminally investigate or prosecute any alcohol or drug abuse patient.[facility] the event this information is protected by the Federal Confidentiality of Alcohol and Drug Abuse Patient Records regulations: The Federal rules restrict any use of the information to criminally investigate or prosecute any alcohol or drug abuse patient.[facility] the event this information is protected by the Federal Confidentiality of Alcohol and Drug Abuse Patient Records regulations: The Federal rules restrict any use of the information to criminally investigate or prosecute any alcohol or drug abuse patient.[facility] the event this information is protected by the Federal Confidentiality of Alcohol and Drug Abuse Patient Records regulations: The Federal rules restrict any use of the information to criminally investigate or prosecute any alcohol or drug abuse patient.[facility] the event this information is protected by the Federal Confidentiality of Alcohol and Drug Abuse Patient Records regulations: The Federal rules restrict any use of the information to criminally investigate or prosecute any alcohol or drug abuse patient.[facility] the event this information is protected by the Federal Confidentiality of Alcohol and Drug Abuse Patient Records regulations: The Federal rules restrict any use of the information to criminally investigate or prosecute any alcohol or drug abuse patient.[facility] the event this information is protected by the Federal Confidentiality of Alcohol and Drug Abuse Patient Records regulations: The Federal rules restrict any use of the information to criminally investigate or prosecute any alcohol or drug abuse patient.[facility] the event this information is protected by the Federal Confidentiality of Alcohol and Drug Abuse Patient Records regulations: The Federal rules restrict any use of the information to criminally investigate or prosecute any alcohol or drug abuse patient.[facility] the event this information is protected by the Federal Confidentiality of Alcohol and Drug Abuse Patient Records regulations: The Federal rules restrict any use of the information to criminally investigate or prosecute any alcohol or drug abuse patient.[facility] the event this information is protected by the Federal Confidentiality of Alcohol and Drug Abuse Patient Records regulations: The Federal rules restrict any use of the information to criminally investigate or prosecute any alcohol or drug abuse patient.[facility] the event this information is protected by the Federal Confidentiality of Alcohol and Drug Abuse Patient Records regulations: The Federal rules restrict any use of the information to criminally investigate or prosecute any alcohol or drug abuse patient.[facility] the event this information is protected by the Federal Confidentiality of Alcohol and Drug Abuse Patient Records regulations: The Federal rules restrict any use of the information to criminally investigate or prosecute any alcohol or drug abuse patient.[facility] the event this information is protected by the Federal Confidentiality of Alcohol and Drug Abuse Patient Records regulations: The Federal rules restrict any use of the information to criminally investigate or prosecute any alcohol or drug abuse patient.[facility] the event this information is protected by the Federal Confidentiality of Alcohol and Drug Abuse Patient Records regulations: The Federal rules restrict any use of the information to criminally investigate or prosecute any alcohol or drug abuse patient.[facility] Reason for Visit (unrecogniz ed section and content) Reason Comments Cough wheezing, congestion x this AM Reason Comments Cough Pt reported SOB w/ [...] Referred By Quentin guerrero Referred To Contact Podiatry Diagnoses Closed nondisplaced fracture of proximal phalanx of lesser toe of right foot, initial encounter Procedures CONSULT TO PODIATRY OFFICE/OUTPATIENT NEW HIGH MDM 60-74 MINUTES Mars Russo APRN.CHIEF NURSING OFFICER [address] [facility] [place] [address] Referral ID Status Reason Start Date Expiration Date V isits Requested Visits Authorized [id number] Closed PCP Requested Referral 01/29/2023 01/29/2024 1 1 Reason Comments Chest Congestion cough x 3 days Care Teams (unrecognized sec tion and content) Steam 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 Relationship Specialty Start Date End Date Eric Lozano MD [address] [place] [id number] PCP - General Family Practice 12/22/20 Steam Shovel Operator Relationship Specialty Start Date End Date Eric Lozano MD [address] [place] [address] [id number] PCP - General Family Practice 12/22/20 Steam Shovel Operator Relationship Specialty Start Date End Date Eric Lozano MD [address] [place] [address] [id number] PCP - General Family Medicine 12/22/20 Steam Shovel Operator Relationship Specialty Start Date End Date Eric Lozano MD [address], [place] [phone] PCP - General Family Medicine 12/22/20 Steam Shovel Operator Relationship Specialty Start Date End Date Eric Lozano MD [address] [place] [address] PCP - General Family Medicine 12/22/20 Steam Shovel Operator Relationship Specialty Start Date End Date Eric Lozano MD [address] [place] [address] PCP - General Family Medicine 12/22/20 Steam Shovel Operator Relationship Specialty Start Date End Date Eric Lozano MD [address] [place] [address] PCP - General Family Medicine 12/22/20 Steam Shovel Operator Relationship Specialty Start Date End Date Eric Lozano MD [address] [place] [address] PCP - General Family Medicine 12/22/20 Steam Shovel Operator Relationship Specialty Start Date End Date Eric Lozano MD [address] [place] [address] PCP - General Family Medicine 12/22/20 Steam Shovel Operator Relationship Specialty Start Date End Date Eric Lozano MD [address] [place] [address] PCP - General Family Medicine 12/22/20 Steam Shovel Operator Relationship Specialty Start Date End Date Eric Lozano MD [address] [place] [address] PCP - General Family Medicine 12/22/20 Steam Shovel Operator Relationship Specialty Start Date End Date Eric Lozano MD [address] [place] [address] PCP - General Family Medicine 12/22/20 Steam Shovel Operator Relationship Specialty Start Date End Date Eric Lozano MD [address] [place] [address] PCP - [facility] 12/22/20 Steam Shovel Operator Relationship Specialty Start Date End Date Eric Lozano MD [address] [place] [address] PCP - [facility] 12/22/20 Steam Shovel Operator Relationship Specialty Start Date End Date Eric Lozano MD [address] [place] [address] PCP - [facility] 12/22/20 Steam Shovel Operator Relationship Specialty Start Date End Date Eric Lozano MD [address] [place] [address] PCP - [facility] 12/22/20 Steam Shovel Operator Relationship Specialty Start Date End Date Eric Lozano MD [address] [facility] [address] PCP - [facility] 12/22/20 Steam Shovel Operator Relationship Specialty Start Date End Date Eric Lozano MD [address] [facility] [place] [place] [address] PCP - [facility] 12/22/20 INFORMATION SOURCE (unrecogn ized section and content) DATE CREATED AUTHOR 10/13/2023 [facility] FOR RECORDS PERTAINING TO PATIENTS WHO ARE [...] BE BASED ON THE PRIMARY CLINICAL RECORDS. [facility] provides no warranty or guarantee of the accuracy or completeness of information in this document.
== END | disposition home or self-care (01) ==
LOC: CVS 09:48
PROVIDERS: PCP Family Medicine; Referring Provider Physician Assistant; Visit Provider Physician Assistant
DX: M79.89 Other specified soft tissue disorders (principal)
CPT/HCPCS: 93971

== ENCOUNTER 2024-03-31 07:34 | Observation (INO) | payer MEDICARE, OTHER, SELFPAY ==
[2024-03-31] VITALS (15 sets, daily range): BP systolic 129–161; BP diastolic 54–117; PULSE 56–90; RESP 16–20; TEMP 36.6–37.1; O2SAT 91–100; BMI 31.1; BMI 30.4
--- NOTE | 2024-03-31 07:36 | ED.VIS.DYS ---
HPI History of Present Illness Chief Complaint: Cough PFSH PFS Medical History Anxiety and depression Schizophrenia Rheumatoid arthritis Former smoker Pulmonary embolism Transient ischemic attack Paroxysmal supraventricular tachycardia Iron deficiency anemia Obesity (BMI 30-39.9) GERD (gastroesophageal reflux disease) COPD (chronic obstructive pulmonary disease) Home Medications ?Medication ?Instructions ?Recorded ?Last Taken ?Type hydroxychloroquine 200 mg tablet 200 mg PO BIDCM 09/18/13 09/17/13 20:00 History pantoprazole 40 mg tablet,delayed 40 mg PO DAILY 02/26/19 07/28/23 History release famotidine 20 mg tablet 20 mg PO BID 11/08/21 07/28/23 History blood pressure monitor #1 ea 11/08/22 Unknown Rx leucovorin calcium 15 mg tablet 15 mg PO QWEEK counteract the 11/08/22 07/24/23 History methotrexate prednisone 2.5 mg tablet 2.5 mg PO DAILY 11/08/22 07/28/23 History metoprolol tartrate 50 mg tablet See Rx Instructions .Route 04/09/23 07/28/23 Rx .COMPLEX #180 tabs methotrexate sodium 25 mg/mL 18.75 mg subcut QWEEK arthritis 07/28/23 07/23/23 History injection solution sulfasalazine 500 mg 1,000 mg PO BID 07/28/23 07/28/23 History tablet,delayed release tramadol 50 mg tablet 50 - 100 mg PO Q6H PRN PRN pain 07/28/23 Unknown History mecobalamin (vitamin B12) 5,000 3,000 mcg PO QDAY 01/06/24 Unknown History mcg chewable tablet potassium citrate 10 mEq (1,080 10 meq PO BID 03/31/24 Unknown History mg) tablet,extended release Allergy/AdvReac Type Severity Reaction Status Date / Time doxycycline AdvReac PT UNSURE Verified 03/31/24 07:35 OF REACTION Family History Mother Breast cancer Surgical History History of radiofrequency ablation procedure for cardiac arrhythmia (03/2003) H/O tubal ligation History of knee surgery History of breast lump removal History of foot surgery Social History household members: none Smoking Status: Former smoker how long ago did patient quit smoking: Quit 15 yrs prior, smoked 2 ppd since 22 yrs old until quit. alcohol intake: never substance use type: does not use EXAM Physical Exam Const Vital Signs: 03/31/24 07:35 03/31/24 08:07 03/31/24 08:43 Temperature 98.5 F 98.1 F Temperature Source Oral Oral Pulse Rate 90 56 L Respiratory Rate 20 H 18 Respiratory Effort Normal Respiratory Depth Normal Respiratory Pattern Tachypnea Blood Pressure 146/117 H 141/54 H Blood Pressure Mean 126 83 Pulse Ox 100 99 Oxygen Delivery Method Room Air Room Air 03/31/24 09:00 03/31/24 10:00 Temperature 98.4 F 97.9 F Temperature Source Oral Oral Pulse Rate 57 L 64 Respiratory Rate 16 18 Respiratory Effort Respiratory Depth Respiratory Pattern Blood Pressure 134/81 H 129/69 H Blood Pressure Mean 98 89 Pulse Ox 91 Oxygen Delivery Method Room Air Room Air MDM MDM MDM Narrative Medical decision making narrative: HISTORY OF PRESENT ILLNESS: 74-year-old female presents with cough. Notes cough has been ongoing for last several days. No sick contacts and grandchildren. Is unsure of what her sick contacts were infected bite. States transient lightheadedness specifically with standing. Notes she is on prednisone and azithromycin. Denies bleeding diathesis. Denies vomiting or diarrhea. Denies chest pain or shortness of breath. Denies leg swelling. Denies focal numbness weakness or loss of sensation. REVIEW OF SYSTEMS: Pertinent positives: Cough, lightheadedness Pertinent negatives: Chest pain, shortness of breath PHYSICAL EXAM: Nursing triage notes reviewed, Vital signs reviewed Constitutional: please see mdm HENT: MMM Eyes: Pupils equal round and reactive to light, Extraocular muscles intact Neck: No stridor, no JVD, full neck ROM Lungs: Clear to auscultation, coarse breath sounds. No increased work of breathing, no conversational dyspnea, no accessory muscle use, no nasal flaring. No respiratory distress noted Heart: Regular rate and rhythm, No murmurs, No rubs and No gallops, 2+ distal pulses (radial, femoral, posterior tibial) in all extremities Abdomen: Soft, there is no tenderness, rigidity, rebound or guarding, no obvious peritoneal signs, no palpable pulsatile abdominal masses, no auscultated abdominal bruit : No CVAT Extremities: No edema Neuro: Alert and oriented x3, neuro exam at baseline, cranial nerves II through XII are intact. No pain with extraocular muscle movement. There is negative test of skew. 5 of 5 strength in upper and lower extremities in flexion extension. Intact sensation to light touch in upper and lower extremity dermatomes. No truncal or extremity ataxia. No dysdiadochokinesia. Normal gait. 2+ reflexes in upper and lower extremities. No meningeal signs. Negative Babinski. NIH of 0. Skin: No rash or lesions noted MEDICAL DECISION MAKING: Chief Complaint: Cough External records reviewed: Reviewed prior imaging of the chest from November. Factors affecting care: Schizophrenia, PE Social determinants of health: History mental health disorder History obtained from others: none Consults: internal medicine (Dr. Peace) MDM Narrative: The patient was hemodynamically stable, afebrile and nontoxic-appearing. Exam with coarse breath sounds. No obvious focal consolidation. No hypoxia, no fever. No increased work of breathing or conversational dyspnea noted. I considered the following differential diagnosis: Pneumonia, COVID, RSV, flu, anemia, dehydration, electrolyte disturbance, ACS, arrhythmia I considered posterior circulation CVA given complaint of dizziness the patient had no nystagmus, extremity, truncal ataxia, focal neurologic deficit. NIH was 0. Evalose patient for posterior circulation CVA at this time Initially treated the patient with Tessalon Perles to control cough as a broad lab and imaging workup was obtained to further elucidate etiology the patient complaints specifically ruling out the after mentioned life-limiting etiologies. Given report of lightheadedness I did obtain labs focused on diagnosing cardiopulmonary, metabolic or hematologic abnormalities. ALL IMAGES (IF OBTAINED) HAVE BEEN PERSONALLY REVIEWED AND INTERPRETED BY MYSELF. EKG with normal sinus rhythm rate of 63, normal axis, normal intervals, QTc 395, no STEMI, no signs of right heart strain CBC with no leukocytosis, noted mild anemia that is improved from baseline, no thrombocytopenia noted Chest x-ray was read, reviewed, and interpreted personally by myself showed no evidence of focal infiltrate or heart failure. Radiologist agrees my interpretation. High-sensitivity troponin is negative, no evidence of myocardial ischemia CMP with mild hypokalemia otherwise no significant electrolyte abnormalities, no signs of endorgan hypoperfusion or metabolic acidosis with a normal anion gap and bicarb respectively, no acute kidney injury. No sign of hepatobiliary pathology or obstruction COVID flu RSV were negative While ambulating the patient displayed significant hypoxia dropping down to 75%. Given exertional hypoxia I was concerned the patient is not safe to go home. She is admitted under Dr. Peace to [facility]. The patient and/or family, caregivers express understanding. The patient and/or family, caregivers agrees with the plan. Shared decision making: I will have a discussion with the patient and or visitors regarding risk/benefits of further testing or admission. They will be made aware of of the risk/benefits inherent in this decision they will be given the opportunity to voice understanding. Total critical care time today provided was at least 0 minutes. This excludes separately billable procedures. Critical care time (if documented) is secondary to the patient having high probability of clinically significant/life threatening deterioration in the patient's condition which required my urgent intervention. Impression: 1. Cough 2. Lightheadedness 3. Hypoxia 4. History of COPD Dispo: Discharge home This note was generated with [employer] dictation software. It may contain incorrect words, spelling, and punctuation that were not noted in review of the chart prior to signing. Lab Data Labs: Laboratory Results - last 24 hr 03/31/24 08:01 WBC 6.2 RBC 4.16 L Hgb 11.2 L Hct 36.1 L MCV 86.8 MCH 26.9 L MCHC 31.0 L RDW Std Deviation 48.0 H RDW Coeff of Samson 15.4 H Plt Count 272 MPV 10.2 Sodium 141 Potassium 3.2 L Chloride 110 H Carbon Dioxide 27.0 Anion Gap 4 L BUN 12 Creatinine 0.86 Estim Creat Clear Calc 70.56 Est GFR (MDRD) Af Amer 83 Est GFR (MDRD) Non-Af 69 BUN/Creatinine Ratio 13.9 Glucose 107 H Calcium 9.3 Total Bilirubin 0.20 AST 14 L ALT 14 Alkaline Phosphatase 81 Troponin I High Sens 14 Total Protein 7.6 Albumin 3.1 L Globulin 4.5 H Albumin/Globulin Ratio 0.7 L Radiography Diagnostic Testing: Clinical Impression(s) from Imaging Studies Chest X-Ray 03/31/24 08:10 IMPRESSION: Hyperinflation. Mild increased markings at the lung bases suggestive of linear scarring. Electronically Signed: Craig Lindo MD at 8:30 EST , Chest CTA 03/31/24 09:14 IMPRESSION: No evidence of pulmonary embolism. Hyperinflation and mild emphysematous changes. Solitary gallstone. Small hiatal hernia. Electronically Signed: Craig Lindo MD at 9:54 EST , Discharge Plan Disposition Disposition: Acute Care Hospital [facility] Discharge Date/Time: 03/31/24 11:00
--- NOTE | 2024-03-31 07:47 | EKG12_ITS ---
Test Reason : Blood Pressure : */* mmHG Vent. Rate : 63 BPM Atrial Rate : 63 BPM P-R Int : 176 ms QRS Dur : 84 ms QT Int : 386 ms P-R-T Axes : 43 76 63 degrees QTcB Int : 395 ms Sinus rhythm with Premature atrial complexes Nonspecific ST and T wave abnormality Abnormal ECG Confirmed by COSME BERRIOS, KAMILLE ([id number]), offline editor GRACE COHN ([id number]) on 04/01/2024 10:57:52 AM Referred By: Alisha Confirmed By: KAMILLE AGUIAR MD
[2024-03-31] MEDS: Benzonatate 100 MG Capsule PO (08:03)
[2024-03-31 08:09] LABS: Hematocrit 36.1 % (37-47); Hemoglobin 11.2 g/dL (12.0-15.0); Mean Corpuscular Hgb 26.9 pg (27.0-32.0); Mean Corpuscular Volume 86.8 fL (81-99); Mean Platelet Vol. 10.2 fl (6.2-12.0); Platelet Count 272 K/mm3 (150-450); RBC Distribution Width CV 15.4 % (11.6-14.6); Red Blood Count 4.16 M/mm3 (4.2-5.4); White Blood Count 6.2 K/mm3 (4.4-11.0)
--- NOTE | 2024-03-31 08:10 | RAD_ITS ---
STUDY: X-RAY CHEST REASON FOR EXAM: Female, 74 years old. Cough and dizziness. TECHNIQUE: PA and lateral views of the chest. COMPARISON: Comparison is made with prior study dated June 29, 2021. FINDINGS: Hyperinflation. Mild increase markings at the lung bases suggest some mild scarring. There is no demonstrated pleural abnormality. Normal size heart. Normal mediastinum and genaro. Normal visualized pulmonary arteries. There is atherosclerotic calcification of the aortic arch with tortuosity. There are degenerative changes of the visualized thoracic spine. Normal visualized ribs, clavicles, and shoulders. There is no demonstrated abnormality of the visualized soft tissue structures of the upper abdomen. RAD/Chest PA and Lateral IMPRESSION: Hyperinflation. Mild increased markings at the lung bases suggestive of linear scarring. Electronically Signed: Craig Lindo MD at 8:30 EST ,
[2024-03-31 08:30] LABS: ALB/GLOB Ratio 0.7 RATIO (0.9-2.4); AST(SGOT) 14 U/L (15-37); Alanine Aminotransfer ALT/SGPT 14 U/L (13-56); Albumin, Serum 3.1 g/dL (3.2-5.0); Alkaline Phosphatase 81 U/L (45-117); Anion Gap 4 (5-15); BUN 12 mg/dL (7-18); BUN/Creat Ratio 13.9 RATIO (10-20); Calcium,Total 9.3 mg/dL (8.5-10.1); Chloride 110 mmol/L (98-107); Creatinine, Serum 0.86 mg/dL (0.55-1.02); EST Glomerular Filtration Rate 69 mL/min (>60); Est Glom Filt Rate - Afr Amer 83 mL/min (>60); Estimated Creatinine Clearance 70.56 ml/min; Globulin 4.5 g/dL (2.2-4.2); Glucose 107 mg/dL (74-106); Potassium 3.2 mmol/L (3.5-5.1); Protein, Total 7.6 g/dL (6.4-8.2); Sodium Level 141 mmol/L (136-145); Troponin-I HS 14 pg/mL (3.0-54.0)
[2024-03-31] MEDS: Potassium Chloride Oral Soln 20 MEQ/15 ML UDC 40 MEQ PO (08:55)
--- NOTE | 2024-03-31 09:14 | CT_ITS ---
STUDY: CTA CHEST WITH CONTRAST REASON FOR EXAM: Female, 74 years old. Cough, hypoxia r/o PNA, PE RADIATION DOSAGE (If Supplied By Facility): CTDIvol = ( 11.22 ) mGy, DLP = ( 443.14 ) mGycm TECHNIQUE: The examination was performed with the intravenous administration of IV 100mL Isovue-370. Post-processing of the angiographic images was performed, with multiplanar reformation and 3D reconstruction. Individualized dose optimization techniques were used for this CT. COMPARISON: Comparison is made with prior study dated September 06, 2023. FINDINGS: CTA Chest Normal enhancement of the main pulmonary artery and right and left pulmonary arteries. Normal enhancement of the bilateral peripheral pulmonary arteries. There is no demonstrated pulmonary embolism. There is atherosclerotic calcification of the aortic arch with tortuosity. There is no demonstrated aortic dissection. There are calcifications of the coronary arteries. Normal mediastinum. Normal hilar regions. Normal visualized trachea and bronchi. The lungs are hyper expanded, with flattening of the hemidiaphragms. Mild degree of emphysematous changes. Normal pleura. Normal chest wall structures. There are degenerative changes of thoracic spine. Solitary gallstone. CT/CTA Chest W/WO Contrast IMPRESSION: No evidence of pulmonary embolism. Hyperinflation and mild emphysematous changes. Solitary gallstone. Small hiatal hernia. Electronically Signed: Craig Lindo MD at 9:54 EST ,
[2024-03-31] MEDS: Ipratropium/Albuterol Sulfate 3 ML AMPUL.NEB INHALATION ×4 (10:47→23:39)
[2024-03-31] MEDS: predniSONE 20 MG Tablet 40 MG PO (11:57)
--- NOTE | 2024-03-31 14:34 | PCM.HP.STD ---
HPI - General General Date of Admission: 03/31/24 Date of Service: 03/31/24 Chief Complaint: Shortness of breath HPI Narrative KIKO QUINN, is a 74 F who presents with shortness of breath. Over the past week, patient has been feeling more short of breath. Seen in urgent care and was started on azithromycin and prednisone but continued to get worse. States that when she exerts herself she feels dizzy and lightheaded and be ready to pass out. So she was not getting better she presented to the emergency room where she underwent a workup that was unremarkable. But when they walked her she drop her sats down into the 70s. X-ray was concerning for COPD but she has never been formally diagnosed with that. She is history of a remote smoking [facility] Medical History Anxiety and depression Schizophrenia Rheumatoid arthritis Former smoker Pulmonary embolism Transient ischemic attack Paroxysmal supraventricular tachycardia Iron deficiency anemia Obesity (BMI 30-39.9) GERD (gastroesophageal reflux disease) COPD (chronic obstructive pulmonary disease) Home Medications ?Medication ?Instructions ?Recorded ?Last Taken ?Type hydroxychloroquine 200 mg tablet 200 mg PO BIDCM 09/18/13 09/17/13 20:00 History pantoprazole 40 mg tablet,delayed 40 mg PO DAILY 02/26/19 07/28/23 History release famotidine 20 mg tablet 20 mg PO BID 11/08/21 07/28/23 History blood pressure monitor #1 ea 11/08/22 Unknown Rx leucovorin calcium 15 mg tablet 15 mg PO QWEEK counteract the 11/08/22 07/24/23 History methotrexate prednisone 2.5 mg tablet 2.5 mg PO DAILY 11/08/22 07/28/23 History metoprolol tartrate 50 mg tablet See Rx Instructions .Route 04/09/23 07/28/23 Rx .COMPLEX #180 tabs methotrexate sodium 25 mg/mL 18.75 mg subcut QWEEK arthritis 07/28/23 07/23/23 History injection solution sulfasalazine 500 mg 1,000 mg PO BID 07/28/23 07/28/23 History tablet,delayed release tramadol 50 mg tablet 50 - 100 mg PO Q6H PRN PRN pain 07/28/23 Unknown History mecobalamin (vitamin B12) 5,000 3,000 mcg PO QDAY 01/06/24 Unknown History mcg chewable tablet potassium citrate 10 mEq (1,080 10 meq PO BID 03/31/24 Unknown History mg) tablet,extended release Allergy/AdvReac Type Severity Reaction Status Date / Time doxycycline AdvReac PT UNSURE Verified 03/31/24 07:35 OF REACTION Family History Mother Breast cancer Surgical History History of radiofrequency ablation procedure for cardiac arrhythmia (03/2003) H/O tubal ligation History of knee surgery History of breast lump removal History of foot surgery Social History household members: none Smoking Status: Former smoker how long ago did patient quit smoking: Quit 15 yrs prior, smoked 2 ppd since 22 yrs old until quit. alcohol intake: never substance use type: does not use ROS ROS Narrative Has been coughing up some greenish type phlegm. No fever or chills. Sinus congestion. Sore throat. All review of systems were negative except as mentioned above in the history of present illness and the other review of systems. Vital Signs Vital Signs Vital Signs: 03/31/24 07:35 03/31/24 08:07 03/31/24 08:43 Temperature 36.9 C 36.7 C Temperature Source Oral Oral Pulse Rate 90 56 L Respiratory Rate 20 H 18 Respiratory Effort Normal Respiratory Depth Normal Respiratory Pattern Tachypnea Blood Pressure 146/117 H 141/54 H Blood Pressure Mean 126 83 Pulse Ox 100 99 Oxygen Delivery Method Room Air Room Air 03/31/24 09:00 03/31/24 10:00 03/31/24 10:50 Temperature 36.9 C 36.6 C Temperature Source Oral Oral Pulse Rate 57 L 64 64 Respiratory Rate 16 18 16 Respiratory Effort Respiratory Depth Respiratory Pattern Normal Blood Pressure 134/81 H 129/69 H Blood Pressure Mean 98 89 Pulse Ox 91 Oxygen Delivery Method Room Air Room Air 03/31/24 10:59 03/31/24 11:26 03/31/24 14:02 Temperature 36.6 C 36.7 C Temperature Source Oral Pulse Rate 69 56 L 69 Respiratory Rate 18 20 H 16 Respiratory Effort Respiratory Depth Respiratory Pattern Normal Blood Pressure 161/58 H 147/56 H Blood Pressure Mean 92 86 Pulse Ox 95 98 Oxygen Delivery Method Room Air 03/31/24 14:02 Temperature Temperature Source Pulse Rate Respiratory Rate Respiratory Effort Respiratory Depth Respiratory Pattern Blood Pressure Blood Pressure Mean Pulse Ox 98 Oxygen Delivery Method Room Air Weight Weight: 91 kg Body Mass Index (BMI) 30.4 Physical Exam Narrative - Physical Exam General: Alert, Oriented x3, Cooperative HEENT: Atraumatic, PERRLA, EOMI, Normocephalic Oral: Moist Mucosa, No Gingival or Mucosal Lesions/ Ulcerations Neck: Supple, No JVD, Negative Carotid Bruits Lungs: Bilateral wheezes. Cardiovascular: Regular rate, Normal S1, Normal S2, No murmurs Abdomen: Bowel Sounds Present, Soft, Non Tender, Non-Distended, No Hepato-splenomegaly Extremities: No clubbing, No cyanosis, No edema, Capillary Refill Less than 3 Seconds Skin: No rashes, No breakdown Musculoskeletal: No Tenderness to Palpation of Joints or Extremities Neurological: Neuro grossly intact. Moves all extremities Psych/Mental Status: Normal Affect, Appropriate Results Lab / Micro Data Attestation: I reviewed the patient's lab results. 03/31/24 08:01 03/31/24 08:01 Labs: Laboratory Results - last 24 hr 03/31/24 08:01: WBC 6.2, RBC 4.16 L, Hgb 11.2 L, Hct 36.1 L, MCV 86.8, MCH 26.9 L, MCHC 31.0 L, RDW Std Deviation 48.0 H, RDW Coeff of Samson 15.4 H, Plt Count 272, MPV 10.2, Sodium 141, Potassium 3.2 L, Chloride 110 H, Carbon Dioxide 27.0, Anion Gap 4 L, BUN 12, Creatinine 0.86, Estim Creat Clear Calc 70.56, Est GFR (MDRD) Af Amer 83, Est GFR (MDRD) Non-Af 69, BUN/Creatinine Ratio 13.9, Glucose 107 H, Calcium 9.3, Total Bilirubin 0.20, AST 14 L, ALT 14, Alkaline Phosphatase 81, Troponin I High Sens 14, Total Protein 7.6, Albumin 3.1 L, Globulin 4.5 H, Albumin/Globulin Ratio 0.7 L Micro: Microbiology 03/31/24 08:01 Mucosa - Nose SARS-CoV-2, Influenza & RSV (PCR) - Final Imaging Radiology Impression Chest X-Ray 03/31/24 08:10 IMPRESSION: Hyperinflation. Mild increased markings at the lung bases suggestive of linear scarring. Electronically Signed: Craig Lindo MD at 8:30 EST , Chest CTA 03/31/24 09:14 IMPRESSION: No evidence of pulmonary embolism. Hyperinflation and mild emphysematous changes. Solitary gallstone. Small hiatal hernia. Electronically Signed: Craig Lindo MD at 9:54 EST , Assessment & Plan Assessment/Plan (1) COPD exacerbation: PLAN: Suspected. Patient never been formally diagnosed with asthma nor COPD but does have a remote history of smoking. Patient does have hyperinflated airways on her chest x-ray. Will start her on prednisone as well as continue with bronchodilators. Check an oxygen evaluation in the morning. If patient does well then she can likely be discharged to home with or without oxygen. Other possibilities regards to her hypoxia could be possible rheumatoid lung disease. Do recommend pulmonary follow-up for evaluation of possible COPD but also to see if she has any other lung diseases. PLAN: Plan Rheumatoid arthritis: Hold methotrexate and leucovorin. CODE STATUS: Addressed with patient. Patient wishes to be full code. Charges/Coding Visit Charges Inpatient E&M: 16707 Init Hosp L2
[2024-03-31] MEDS: Hydroxychloroquine 200 MG Tablet PO (17:17)
[2024-03-31] MEDS: POTASSIUM CITRATE 10 MEQ TABLET.ER PO (17:18)
[2024-03-31] MEDS: sulfaSALAzine 500 MG Tablet 1000 MG PO (17:18)
[2024-03-31] MEDS: Metoprolol Tartrate 50 MG Tablet PO (21:23)
[2024-03-31] MEDS: Famotidine 20 MG Tablet PO (21:23)
[2024-04-01] VITALS (9 sets, daily range): BP systolic 126–140; BP diastolic 55–71; PULSE 66–89; RESP 15–20; TEMP 36.5–37; O2SAT 97–100
[2024-04-01] MEDS: Ipratropium/Albuterol Sulfate 3 ML AMPUL.NEB INHALATION ×4 (03:23→14:33)
[2024-04-01] MEDS: Hydroxychloroquine 200 MG Tablet PO (10:01)
[2024-04-01] MEDS: Pantoprazole Sodium 40 MG Tablet PO (10:01)
[2024-04-01] MEDS: Metoprolol Tartrate 50 MG Tablet PO (10:01)
[2024-04-01] MEDS: sulfaSALAzine 500 MG Tablet 1000 MG PO (10:01)
[2024-04-01] MEDS: predniSONE 20 MG Tablet 40 MG PO (10:02)
[2024-04-01] MEDS: Famotidine 20 MG Tablet PO (10:02)
[2024-04-01] MEDS: POTASSIUM CITRATE 10 MEQ TABLET.ER PO (10:02)
--- NOTE | 2024-04-01 11:52 | CASEMGMT ---
Met with patient to complete GIBSON form. GIBSON form explained to patient who voiced understanding and signed form. Original form placed in pt?s chart. Pt declined copy. Nicole Powers, Discharge Planning Asst
--- NOTE | 2024-04-01 14:30 | PCM.DC.SUM ---
Providers Date of Admission: 03/31/24 Primary Care Physician: Dr. Jd Lozano MD Reason For Visit: COPD EXACERBATION Diagnosis Discharge Diagnosis (1) COPD exacerbation: Status: Chronic Code(s): J44.1 - Chronic obstructive pulmonary disease with (acute) exacerbation Medications at Discharge Home Medications hydroxychloroquine 200 mg tablet 200 mg PO BIDCM 09/18/13 pantoprazole 40 mg tablet,delayed release 40 mg PO DAILY 02/26/19 famotidine 20 mg tablet 20 mg PO BID 11/08/21 blood pressure monitor #1 ea 11/08/22 leucovorin calcium 15 mg tablet 15 mg PO QWEEK counteract the methotrexate 11/08/22 prednisone 2.5 mg tablet 2.5 mg PO DAILY 11/08/22 metoprolol tartrate 50 mg tablet See Rx Instructions .Route .COMPLEX #180 tabs 04/09/23 methotrexate sodium 25 mg/mL injection solution 18.75 mg subcut QWEEK arthritis 07/28/23 sulfasalazine 500 mg tablet,delayed release 1,000 mg PO BID 07/28/23 tramadol 50 mg tablet 50 - 100 mg PO Q6H PRN PRN pain 07/28/23 mecobalamin (vitamin B12) 5,000 mcg chewable tablet 3,000 mcg PO QDAY 01/06/24 potassium citrate 10 mEq (1,080 mg) tablet,extended release 10 meq PO BID 03/31/24 prednisone 10 mg tablet 10 mg PO DAILY #30 tabs 04/01/24 Hospital Course Procedures EKG and - (Chest x-ray/CTA chest) Summary of Care Provided Minutes Spent on Discharge: 37 Hospital Course: Mrs. Godfrey is a 74-year-old white female who presented to the emergency department at [facility] on 03/31/2024 with a chief complaint of shortness of breath. Patient reported over the past week she has been having cough and feeling more short of breath. Initially she noticed it with exertion and became more at rest. She was seen in urgent care and started on azithromycin and prednisone but continue to get worse so she presented to the emergency department. She reported that she got lightheaded and dizzy with exertion and felt like she was ready to pass out. Since she was not improving on her prednisone and azithromycin she came in for further workup. Overall her workup was fairly unremarkable but when they ambulated her her sats dropped into the 70s on room air. The patient does report a history of smoking and quit 12 years ago. She has no formal diagnosis of COPD however. Vital signs on presentation showed a temperature of 36.9, heart rate 90, respiratory 20, blood pressure 146/117, pulse ox was 100% on room air at rest and 70% with exertion. EKG was sinus rhythm with PACs and nonspecific ST-T wave changes. CBC was overtly unremarkable other than chronic normocytic anemia that was stable compared to previous. She had no leukocytosis. Chemistry panel showed mild hypokalemia with potassium of 3.2 which was replaced but was otherwise unremarkable. Liver function was normal. Chest x-ray showed hyperinflation with mild increased markings at the bases suggestive of scarring. CTA of the chest was performed and showed hyperinflation with no evidence of PE, emphysematous changes, solitary gallstone and a small hiatal hernia. Upon my review of the CT it also appears that she has some bronchiectasis. COVID/flu/RSV was negative. The patient was admitted and placed on scheduled nebulizers, oral steroids and aggressive pulmonary toilet with I-S and Acapella. By the a.m. of 04/01/2024 she stated she was feeling much better. At rest on room air she was 97% and with ambulation she was 99% on room air. Her lung sounds have cleared and she was feeling well enough to go home. She will be sent home with a prednisone taper. She can discontinue the azithromycin as I suspect this is likely viral with no infiltrate being noted on her CT. She was able to be discharged home in stable condition with a prednisone taper on 04/01/2024. I have asked that she follow-up with pulmonary medicine and call to set up appointment at their availability. There is no urgency to this follow-up however she would benefit from outpatient PFTs when she is medically stable. I have also asked that she follow-up with her primary care physician in one week. Discharge diagnoses: Acute exacerbation of COPD-resolving Exertional hypoxia-resolved Chronic normocytic anemia Hypokalemia Rheumatoid arthritis GERD Chronic pain Physical Exam Const alert, oriented x3, no apparent distress, no limitations, healthy appearing and well nourished; Negative for average body habitus Constitutional Narrative: Well-appearing, older, white female, obese, sitting up in bed, watching television, appears comfortable, nontoxic General Appearance: cooperative, comfortable, well kempt and well developed Exam Limitations: no limitations Nutritional Appearance: obese HEENT normocephalic, head/scalp atraumatic, hearing grossly normal bilaterally and moist oral mucous membranes HEENT Narrative: Mallampati 2, no thrush, dentures in place Eyes EOMs intact bilaterally Eyes Narrative: No scleral icterus Neck no lymphadenopathy and supple Neck Narrative: Trachea midline, no thyroid enlargement Resp normal respiratory effort, no retractions, no use of accessory muscles and clear to auscultation bilaterally Resp Narrative: Diminished but clear Auscultation: rales, rhonchi and wheezes Cardio regular rate, regular rhythm, S1 normal heart sound, S2 normal heart sound, no murmurs, no rub, no gallops and no clicks GI normal to inspection, nondistended, normoactive bowel sounds, soft to palpation and non-tender Extremity no clubbing, cyanosis or edema Extremity Narrative: Pedal pulses are 2+ Skin skin turgor normal, no jaundice, no petechiae and no mottling Neuro oriented x3, moves all extremities and no focal motor deficits Speech: speech normal Psych affect normal Psych Narrative: Interacts appropriately, eye contact is good, very pleasant Weight / BMI Weight Weight: 91 kg Body Mass Index (BMI) 30.4 ABG / Lab / Microbiology Data 03/31/24 08:01 03/31/24 08:01 Microbiology: Microbiology 03/31/24 08:01 Mucosa - Nose SARS-CoV-2, Influenza & RSV (PCR) - Final D/C Instructions Discharge Diet: No restrictions Discharge Activity: Return to Normal Activity DC O2, CPAP, BIPAP Needs RN Home O2 Qualification: Home O2 Qualification: Is the patient on home oxygen No 04/01/24 11:38 Home O2 Qualification: AT REST 1- Pulse Ox at rest 97 04/01/24 11:38 Home O2 Qualification: WITH AMBULATION 1- Pulse Ox with ambulation 99 04/01/24 11:38 1- Oxygen Flow Rate with 0 04/01/24 11:38 ambulation Home O2 Discharge instructions: No Meaningful Use Info Meaningful Use Meaningful Use Diagnoses (Choose all that apply): None applicable Ischemic Stroke Statin Dosing Therapy Reference: STATIN DOSE THERAPY REFERENCE: * Patients > 75 years receive moderate or high dose statin therapy. * Patients 75 years or YOUNGER should receive HIGH intensity statin dose unless contraindicated. You will be required to document reason for non-treatment if statin daily dose does not meet guidelines. HIGH DOSE STATIN THERAPY DAILY Atorvastatin > than or = to 40 mg Rosuvastatin > than or = to 20 mg Amlodipine + Atorvastatin > than or = to 2.5/40 mg Ezetimibe + Simvastatin 10/80 mg Simvastatin 80mg Discharge Plan Admission Admit Date/Time: 03/31/24 10:32 Primary Reason for Your Visit: Shortness of breath Attending Provider: Sheri Lamb Primary Care Provider: Jd Lozano Consulting Providers: Jd Peace Instructions Additional Instructions / Restrictions: 1. Please complete your prednisone taper as prescribed and hold your home 2.5 mg prednisone dosing until your taper is completed then restart this dose. 2. Please continue to use your incentive spirometer and Acapella after discharge for about 7 days 3-5 times daily while you are awake 3. Please call Dr. Wheeler as noted below to set up an appointment to be seen as an outpatient for your lungs as I do suspect you may have some underlying lung disease and need some outpatient testing. There is no urgency to this. Discharge Orders/Prescriptions Prescriptions: New prednisone 10 mg tablet 10 mg PO DAILY Qty: 30 0RF Rx Instructions: 4 tablets x 3 days, 3 tablets x 3 days, 2 tablets x 3 days, 1 tablet x 3 days then stop Continued famotidine 20 mg tablet 20 mg PO BID leucovorin calcium 15 mg tablet 15 mg PO QWEEK Rx Instructions: Pt takes every (DME) blood pressure monitor Kit See Rx Instructions .Route Qty: 1 0RF Rx Instructions: As directed mecobalamin (vitamin B12) 5,000 mcg tablet,chewable 3,000 mcg PO QDAY Patient Comments: takes sometimes hydroxychloroquine 200 MG tablet 200 mg PO BIDCM Patient Comments: mental health pantoprazole 40 MG tablet,delayed release (DR/EC) 40 mg PO DAILY sulfasalazine 500 mg tablet,delayed release (DR/EC) 1,000 mg PO BID methotrexate sodium 25 mg/mL solution 18.75 mg subcut QWEEK Rx Instructions: Pt takes every Friday tramadol 50 mg tablet 50 - 100 mg PO Q6H PRN PRN (Reason: pain) potassium citrate 10 mEq (1,080 mg) tablet extended release 10 meq PO BID Patient Comments: takes sometimes metoprolol tartrate 50 mg tablet See Rx Instructions .ROUTE .COMPLEX Qty: 180 3RF Dose Instruction: TAKE 1 TABLET TWICE A DAY Rx Instructions: TAKE 1 TABLET TWICE A DAY Held prednisone 2.5 mg tablet 2.5 mg PO DAILY Hold Instructions: Restart once your prednisone taper is completed Referrals / Follow Up: Amanuel Wheeler DO [Med Staff - Active Staff] - See Referral Note (Call and set up an appointment to be seen at the physicians first availability) Jd Lozano MD [Primary Care Provider] - Within 2 Weeks Disposition Disposition (needs filled in before D/C Order can be placed): Home, Self Care Charges/Coding Visit Charges Inpatient E&M: 74688 Disch Hosp >30min
--- NOTE | 2024-04-01 15:30 | CASEMGMT ---
Patient has order for discharge. RN CM in to discuss needs at discharge. Patient did not qualify for home oxygen at discharge. Patient denies needs or help at discharge. Patient had no further questions or concerns.
== END 2024-04-01 14:34 | disposition home or self-care (01) ==
LOC: ED 07:54 → PCU 10:54
PROVIDERS: Emergency Provider Emergency Medicine; PCP Family Medicine; Visit Provider Internal Medicine
DX: J44.1 Chronic obstructive pulmonary disease with (acute) exacerbation (principal); M06.9 Rheumatoid arthritis, unspecified; F20.9 Schizophrenia, unspecified; J47.9 Bronchiectasis, uncomplicated; E87.6 Hypokalemia; Z79.52 Long term (current) use of systemic steroids; Z87.891 Personal history of nicotine dependence; G89.29 Other chronic pain; K21.9 Gastro-esophageal reflux disease without esophagitis; Z79.899 Other long term (current) drug therapy
CPT/HCPCS: 71046; 71275; 80053; 84484; 85027; 87631; 93005; 94640; 99221; 99252; 99285; Q9967; A4216; G0378; G0463

== ENCOUNTER → 2024-03-31 | Outpatient (CLI) | payer MEDICARE, OTHER, SELFPAY ==
--- NOTE | 2024-03-31 09:44 | CT_ITS ---
STUDY: LOW DOSE CT LUNG CANCER SCREENING REASON FOR EXAM: Female, 74 years old. SCREENING RADIATION DOSAGE (If Supplied By Facility): CTDIvol = ( 3.02 ) mGy, DLP = ( 101.94 ) mGycm TECHNIQUE: No contrast was administered. Low dose technique was utilized (average mAS-38 and kVp 120). 1.25 mm axial source images with a slice interval of 1.25-mm were reconstructed in lung windows. 2.5 mm axial source images with a slice interval of 2.5-mm were reconstructed in lung windows. 5.0 mm axial source images with a slice interval of 5.0-mm were reconstructed in soft tissue windows. COMPARISON: Comparison is made with prior study dated November 18, 2023. NODULES: Stable 4 mm noncalcified nodule in the right lung apex. Emphysema: Mild degree of emphysematous changes. Stable scarring in the upper lobes. Endobronchial lesion: Unremarkable Aorta: Atherosclerotic plaque formation of the aortic arch. CORONARY ARTERIES: Coronary artery calcification is seen. Heart: Unremarkable Pulmonary artery: Unremarkable Mediastinal nodes: Small mediastinal lymph nodes. Other chest and abdominal findings: CT/Low Dose CT Lung Screening IMPRESSION: Lung-RADS category 2 - Continue annual screening with LDCT in 12 months. IMPORTANT NOTES FOR USE: ACR Lung-RADS Version 1.1 Assessment Categories Release Date: 2018 Category: Coded 0-4 bases on nodule(s) with highest degree of suspicion. Negative screen is defined as categories 1 and 2; a positive screen is defined as categories 3 and 4. Category 3 and 4A nodules that are unchanged on interval CT should be coded as category 2, and individuals returned to screening in 12 months. Category 4X: Category 3 or 4 nodules with additional imaging findings that increase the suspicion of lung cancer, such as spiculation, GGN that doubles in size in 1 year, enlarged lymph notes, etc. Category Modifiers: S (significant finding unrelated to lung cancer) Electronically Signed: Craig Lindo MD at 15:15 EST ,
== END | disposition home or self-care (01) ==
PROVIDERS: PCP Family Medicine; Referring Provider Nurse Practitioner Family; Visit Provider Nurse Practitioner Family
DX: Z12.2 Encounter for screening for malignant neoplasm of respiratory organs (principal); F17.210 Nicotine dependence, cigarettes, uncomplicated
CPT/HCPCS: 71271

== ENCOUNTER → 2024-04-28 | Outpatient (CLI) | payer MEDICARE, OTHER, SELFPAY ==
[2024-04-28 10:07] LABS: Absolute Lymphocyte Count 1.38 X10^3/uL (0.83-4.51); Absolute Neutrophil Count 2.1 X10^3/uL (2.0-7.7); Basophil# 0.03 X10^3/uL; Basophil% 0.7 % (0-1); Eosinophil# 0.07 X10^3/uL; Eosinophils% 1.7 % (0-5); Hematocrit 37.4 % (37-47); Hemoglobin 11.2 g/dL (12.0-15.0); Lymphocyte # 1.38 X10^3/ul (0.83-4.51); Lymphocyte % 33.3 % (19-41); Mean Corp Hgb Conc 29.9 g/dL (32-36); Mean Corpuscular Hgb 26.5 pg (27.0-32.0); Mean Corpuscular Volume 88.4 fL (81-99); Mean Platelet Vol. 10.3 fl (6.2-12.0); Monocyte# 0.56 X10^3/uL; Monocyte% 13.5 % (0-10); NRBC Flagged by Analyzer 0 % (0-5); Neutrophil % 50.6 % (47-70); Platelet Count 219 K/mm3 (150-450); RBC Distribution Width CV 15.8 % (11.6-14.6); RBC Distribution Width SD 50.3 fl (35.1-43.9); Red Blood Count 4.23 M/mm3 (4.2-5.4); White Blood Count 4.2 K/mm3 (4.4-11.0)
[2024-04-28 10:48] LABS: ALB/GLOB Ratio 0.8 RATIO (0.9-2.4); AST(SGOT) 19 U/L (15-37); Alanine Aminotransfer ALT/SGPT 14 U/L (13-56); Albumin, Serum 3.2 g/dL (3.2-5.0); Alkaline Phosphatase 81 U/L (45-117); Anion Gap 6 (5-15); BUN 9 mg/dL (7-18); BUN/Creat Ratio 9.6 RATIO (10-20); Calcium,Total 9.9 mg/dL (8.5-10.1); Chloride 110 mmol/L (98-107); Creatinine, Serum 0.93 mg/dL (0.55-1.02); EST Glomerular Filtration Rate 63 mL/min (>60); Est Glom Filt Rate - Afr Amer 76 mL/min (>60); Globulin 3.8 g/dL (2.2-4.2); Glucose 107 mg/dL (74-106); Sodium Level 142 mmol/L (136-145)
== END | disposition home or self-care (01) ==
LOC: MTLAB 08:47
PROVIDERS: PCP Family Medicine; Referring Provider Internal Medicine Rheumatology; Visit Provider Internal Medicine Rheumatology
DX: M05.79 Rheumatoid arthritis with rheumatoid factor of multiple sites without organ or systems involvement (principal); Z79.899 Other long term (current) drug therapy
CPT/HCPCS: 36415; 80053; 85025

== ENCOUNTER 2024-06-28 09:05 | Emergency (ER) | payer MEDICARE, OTHER, SELFPAY ==
[2024-06-28 09:06] VITALS: BP 195/65; PULSE 61; RESP 15; TEMP 36.2; O2SAT 100; BMI 31.9
--- NOTE | 2024-06-28 09:18 | RAD_ITS ---
PROCEDURE: CHEST PA AND LATERAL (RADCXR), 06/28/2024 REASON FOR EXAM: COUGH TECHNIQUE: PA and lateral views of the chest were obtained. COMPARISON: 06/22/2024 FINDINGS: Heart: Unremarkable. Mediastinum: Atherosclerosis. Grossly Lungs/pleura: No focal consolidation. Similar mild chronic interstitial prominence, possibly technical and related to chest wall attenuation or perhaps related to mild emphysema. No effusion or visible pneumothorax. Known small nodule better seen previously. Bones: Suspect demineralization. Multilevel spondylosis.. Degenerative changes of the right shoulder. Lines and support devices: None. RAD/Chest PA and Lateral IMPRESSION: 1. Suspect mild emphysema without convincing or visible acute cardiopulmonary f indings. If unexplained symptoms persist, consider CT. 2. Additional description as above. Reading Location: [id number]
--- NOTE | 2024-06-28 09:49 | EKG12_ITS ---
Test Reason : GENERAL Blood Pressure : */* mmHG Vent. Rate : 54 BPM Atrial Rate : 54 BPM P-R Int : 158 ms QRS Dur : 82 ms QT Int : 406 ms P-R-T Axes : 18 65 23 degrees QTcB Int : 385 ms Sinus bradycardia with occasional Premature ventricular complexes Nonspecific ST and T wave abnormality Abnormal ECG Confirmed by COSME BERRIOS, KAMILLE ([id number]), rewrite editor KAIDEN CALIXTO ([id number]) on 06/29/2024 8:15:20 AM Referred By: Confirmed By: KAMILLE AGUIAR MD
[2024-06-28] MEDS: Ipratropium/Albuterol Sulfate 3 ML AMPUL.NEB INHALATION (10:01)
[2024-06-28 10:02] VITALS: PULSE 69; RESP 18
[2024-06-28 10:14] LABS: Absolute Lymphocyte Count 1.85 X10^3/uL (0.83-4.51); Absolute Neutrophil Count 7.1 X10^3/uL (2.0-7.7); Basophil# 0.06 X10^3/uL; Basophil% 0.6 % (0-1); Eosinophil# 0.07 X10^3/uL; Eosinophils% 0.7 % (0-5); Hemoglobin 10.8 g/dL (12.0-15.0); Lymphocyte # 1.85 X10^3/ul (0.83-4.51); Lymphocyte % 18.4 % (19-41); Mean Corpuscular Volume 86.7 fL (81-99); Mean Platelet Vol. 10.1 fl (6.2-12.0); Monocyte# 0.91 X10^3/uL; NRBC Flagged by Analyzer 0 % (0-5); Neutrophil # 7.11 X10^3/uL (2.7-7.7); Neutrophil % 70.5 % (47-70); Platelet Count 241 K/mm3 (150-450); RBC Distribution Width CV 15.9 % (11.6-14.6); RBC Distribution Width SD 50.1 fl (35.1-43.9); Red Blood Count 4.15 M/mm3 (4.2-5.4); White Blood Count 10.1 K/mm3 (4.4-11.0)
--- NOTE | 2024-06-28 10:40 | ED.VIS.DYS ---
HPI History of Present Illness Chief Complaint: Cold Sx Informant: patient Narrative Narrative: Patient 74-year-old female with history of COPD, proximal SVT and PE (after a leg injury) as well as arthritis on methotrexate and hydroxychloroquine presenting for continued cough and not feeling better. Patient states she was diagnosed with influenza A 1 week ago. She had a chest x-ray that time which was negative for pneumonia. She was prescribed promethazine and prednisone as well as cefdinir (has 1 day left). She notes 3 weeks ago she was at urgent care and diagnosed with a viral bronchitis and a week later was seen again for some type of sinus infection and placed on a course of Augmentin. She feels that yesterday her cough was little better and her sputum was clear but then today it turned back to green. She still feels short of breath. She is not sure if she is worsening or just not getting better. She is unsure if she has had fever. She came in for further evaluation. She denies any swelling of her legs. Denies any chest pain. States that she does have chest wall pain from all the coughing. Has an inhaler at home she does not find particularly helpful. Does not wear home O2. Continues to have nasal congestion. No other complaints or concerns reported at this time. [facility] Medical History Anxiety and depression Schizophrenia Rheumatoid arthritis Former smoker Pulmonary embolism Transient ischemic attack Paroxysmal supraventricular tachycardia Iron deficiency anemia Obesity (BMI 30-39.9) GERD (gastroesophageal reflux disease) COPD (chronic obstructive pulmonary disease) Home Medications ?Medication ?Instructions ?Recorded ?Last Taken ?Type hydroxychloroquine 200 mg tablet 200 mg PO BIDCM 09/18/13 09/17/13 20:00 History pantoprazole 40 mg tablet,delayed 40 mg PO DAILY 02/26/19 07/28/23 History release famotidine 20 mg tablet 20 mg PO BID 11/08/21 07/28/23 History blood pressure monitor #1 ea 11/08/22 Unknown Rx leucovorin calcium 15 mg tablet 15 mg PO QWEEK counteract the 11/08/22 07/24/23 History methotrexate prednisone 2.5 mg tablet 2.5 mg PO DAILY 11/08/22 07/28/23 History Held on 04/01/24. Instructions: Restart once your prednisone taper is completed methotrexate sodium 25 mg/mL 18.75 mg subcut QWEEK arthritis 07/28/23 07/23/23 History injection solution sulfasalazine 500 mg 1,000 mg PO BID 07/28/23 07/28/23 History tablet,delayed release tramadol 50 mg tablet 50 - 100 mg PO Q6H PRN PRN pain 07/28/23 Unknown History mecobalamin (vitamin B12) 5,000 3,000 mcg PO QDAY 01/06/24 Unknown History mcg chewable tablet potassium citrate 10 mEq (1,080 10 meq PO BID 03/31/24 Unknown History mg) tablet,extended release prednisone 10 mg tablet 10 mg PO DAILY #30 tabs 04/01/24 Unknown Rx metoprolol tartrate 50 mg tablet See Rx Instructions .Route 05/14/24 Unknown Rx .COMPLEX #180 tabs codeine 10 mg-guaifenesin 100 mg/5 5 ml PO Q6H PRN cough #118 mL 06/28/24 Unknown Rx mL oral liquid (Guaifenesin AC) Allergy/AdvReac Type Severity Reaction Status Date / Time doxycycline AdvReac PT UNSURE Verified 06/28/24 09:08 OF REACTION Family History Mother Breast cancer Surgical History History of radiofrequency ablation procedure for cardiac arrhythmia (03/2003) H/O tubal ligation History of knee surgery History of breast lump removal History of foot surgery Social History household members: none Smoking Status: Former smoker how long ago did patient quit smoking: Quit 15 yrs prior, smoked 2 ppd since 22 yrs old until quit. alcohol intake: never substance use type: does not use ROS ROS ED Constitutional Constitutional ED: Denies chills or fever(s) ENT ENT ED: Reports rhinorrhea and other Details: congestion ; Denies sore throat Cardiovascular Cardiovascular: Denies chest pain Respiratory/Chest Respiratory/Chest: Reports cough, dyspnea and sputum Gastrointestinal Gastrointestinal: Reports nausea; Denies abdominal pain or vomiting Musculoskeletal Musculoskeletal: Denies arthralgias or myalgias Neurologic Neurologic: Reports weakness Hematologic/Lymphatic Hematologic/Lymphatic: Denies easy bleeding or easy bruising EXAM Physical Exam Const Vital Signs: 06/28/24 09:06 06/28/24 09:26 06/28/24 10:02 Temperature 97.2 F L Temperature Source Temporal Pulse Rate 61 69 Respiratory Rate 15 18 Respiratory Effort Short of Breath Respiratory Pattern Normal Blood Pressure 195/65 H Blood Pressure Mean 108 Pulse Ox 100 Oxygen Delivery Method Room Air 06/28/24 11:05 Temperature Temperature Source Pulse Rate 58 L Respiratory Rate 19 H Respiratory Effort Respiratory Pattern Blood Pressure Blood Pressure Mean Pulse Ox 94 Oxygen Delivery Method Room Air Positive well nourished and well developed General Appearance ED: well developed and NAD; Negative for pallor HEENT Reports TM's clear and moist mucous membranes HEENT Narrative: Normal nasal mucosa, slight congestion present Tympanic Membrane ED: Yes TM's clear Eyes PERRL Neck supple and no JVD Resp normal respiratory effort Resp Narrative: Intermittent bronchial cough on exam Auscultation: wheezes expiratory wheezes (Right lower lobe) and diminished lung sounds bilateral lower Cardio regular rate, regular rhythm and no murmurs GI non-tender and non-distended Extremity normal to inspection General Extremety ED: Negative for edema or tenderness General Extremity: Negative for edema Neuro oriented x3 Sensorium / Orientation: alert Motor Exam: Negative for general weakness Psych mental status grossly normal Skin no wounds General Skin Exam: Negative for jaundice or pallor MDM MDM MDM Narrative Medical decision making narrative: Patient evaluated for ongoing cough and shortness of breath in the setting of influenza A. She is diagnosed last week. She is afebrile. She does have a bronchial cough but overall nontoxic/well-appearing. Vital sign significantly significant for hypertension. Chest x-ray obtained to ensure she is not developed secondary pneumonia or other acute process including normal thorax or pleural effusion. Chest x-ray viewed by myself as well as radiology does not show any acute process. She has a normal white blood cell count. Hemoglobin mildly low at 10.8 but this appears chronic for the patient. Is at her baseline. BMP shows mild hypokalemia with a potassium of 3.2. Will give a dose of potassium replacement emergency room. Patient is given a DuoNeb with improvement of her symptoms. She has improvement of her basiar breath sounds. Is ambulated and goes down to 93% but overall does well. Generally she requires admission from hypoxia standpoint. I suspect this is postviral bronchitis associate with her recent influenza. Given that she is already on antibiotics and steroids I do not think she requires further medicine for this. Will be given a prescription for Robitussin AC for further cough suppression and to help with her symptoms. Counseled to stop taking her promethazine (which was prescribed for cough) if she takes Robitussin AC. She has Tessalon Perles but does not feel like they are helpful. Is encouraged to follow-up with her primary care doctor to see if she can get a nebulizer for home prescription. Given return precautions. I counseled on the typical time course of cough associated with influenza/viral illness and bronchitis. Discharged home in stable condition. Lab Data Attestation: I reviewed the patient's lab results. Labs: Laboratory Results - last 24 hr 06/28/24 10:00 WBC 10.1 RBC 4.15 L Hgb 10.8 L Hct 36.0 L MCV 86.7 MCH 26.0 L MCHC 30.0 L RDW Std Deviation 50.1 H RDW Coeff of Samson 15.9 H Plt Count 241 MPV 10.1 Immature Gran % (Auto) 0.800 Neut % (Auto) 70.5 H Lymph % (Auto) 18.4 L [place] % (Auto) 9.0 Eos % (Auto) 0.7 Baso % (Auto) 0.6 Absolute Neuts (auto) 7.1 Absolute Lymphs (auto) 1.85 Nucleated RBC % 0 Sodium 143 Potassium 3.2 L Chloride 108 Carbon Dioxide 22.8 Anion Gap 12 BUN 8 Creatinine 0.81 Estim Creat Clear Calc 75.76 Est GFR (MDRD) Non-Af 77 BUN/Creatinine Ratio 9.6 L Glucose 98 Calcium 8.6 Radiography Chest X-Ray - ED: 2 View, Read by ED Physician, Read by Radiologist, No Acute Disease and Chronic Changes Diagnostic Testing: Clinical Impression(s) from Imaging Studies Chest X-Ray 06/28/24 09:18 IMPRESSION: 1. Suspect mild emphysema without convincing or visible acute cardiopulmonary findings. If unexplained symptoms persist, consider CT. 2. Additional description as above. Reading Location: [facility] Rhythm Strip Rhythm Strip: Sinus Rhythm Rate: 54 Ectopy: PVC(s) EKG Initial EKG: Attestation: I personally reviewed and interpreted this EKG as follows: Comments: Sinus bradycardia with occasional PVCs rate of 54 bpm Normal axis Normal intervals Nonspecific T wave changes no acute ischemic pattern Prior EKG tracings: available for review Prior: Unchanged Discharge Plan Triage Chief Complaint: Cold Sx ED Provider: Gladis Moralez Dx/Rx/DC Orders Clinical Impression: Influenza A, Hypokalemia, Cough Instructions: ED Influenza (Adult), ED Hypokalemia Prescriptions: New codeine-guaifenesin [Guaifenesin AC] 10-100 mg/5 mL liquid 5 ml PO Q6H PRN (Reason: cough) Qty: 118 0RF No Action famotidine 20 mg tablet 20 mg PO BID leucovorin calcium 15 mg tablet 15 mg PO QWEEK Rx Instructions: Pt takes every prednisone 2.5 mg tablet 2.5 mg PO DAILY (DME) blood pressure monitor Kit See Rx Instructions .Route Qty: 1 0RF Rx Instructions: As directed mecobalamin (vitamin B12) 5,000 mcg tablet,chewable 3,000 mcg PO QDAY Patient Comments: takes sometimes hydroxychloroquine 200 MG tablet 200 mg PO BIDCM Patient Comments: mental health pantoprazole 40 MG tablet,delayed release (DR/EC) 40 mg PO DAILY sulfasalazine 500 mg tablet,delayed release (DR/EC) 1,000 mg PO BID methotrexate sodium 25 mg/mL solution 18.75 mg subcut QWEEK Rx Instructions: Pt takes every Friday tramadol 50 mg tablet 50 - 100 mg PO Q6H PRN PRN (Reason: pain) potassium citrate 10 mEq (1,080 mg) tablet extended release 10 meq PO BID Patient Comments: takes sometimes prednisone 10 mg tablet 10 mg PO DAILY Qty: 30 0RF Rx Instructions: 4 tablets x 3 days, 3 tablets x 3 days, 2 tablets x 3 days, 1 tablet x 3 days then stop metoprolol tartrate 50 mg tablet See Rx Instructions .ROUTE .COMPLEX Qty: 180 3RF Dose Instruction: TAKE 1 TABLET TWICE A DAY Rx Instructions: TAKE 1 TABLET TWICE A DAY Primary Care Provider: Jd Lozano Referrals: Jd Lozano MD [Primary Care Provider] - Activity Restrictions/Additional Instructions: Your lab work is overall very reassuring. Your chest x-ray does not show an acute pneumonia. Please stop the promethazine cough medicine while taking the new prescribed cough medicine as this can cause dangerous sedation. Continue antibiotics and steroids. Your potassium was mildly low and you were given a potassium pill in the ER. Please follow-up with your primary care doctor. I suspect you are developing bronchitis associated with your recent influenza and likely will continue to cough for the next 2 weeks. Please discuss to the primary care doctor prescription for nebulizer. Continue to use your albuterol inhaler 1 to 2 puffs every 4-6 hours as needed for cough or chest tightness Print Language: Spanish
[2024-06-28 11:05] VITALS: PULSE 58; RESP 19; O2SAT 94
[2024-06-28 11:20] VITALS: O2SAT 93
[2024-06-28 11:27] LABS: Anion Gap 12 (5-15); Calcium,Total 8.6 mg/dL (7.6-11.0); Carbon Dioxide 22.8 mmol/L (21.0-32.0); Chloride 108 mmol/L (98-108); Creatinine, Serum 0.81 mg/dL (0.70-1.20); EST Glomerular Filtration Rate 77 (>60); Estimated Creatinine Clearance 75.76 ml/min (50-250); Glucose 98 mg/dL (70-99); Potassium 3.2 mmol/L (3.3-5.1); Sodium Level 143 mmol/L (133-145)
[2024-06-28 11:40] LABS: BUN 8 mg/dL (4-19); BUN/Creat Ratio 9.6 RATIO (10-20)
[2024-06-28] MEDS: Potassium Chloride Oral Tablet 20 MEQ PO (12:25)
== END 2024-06-28 12:43 | disposition home or self-care (01) ==
PROVIDERS: Emergency Provider Emergency Medicine; PCP Family Medicine; Visit Provider Emergency Medicine
DX: J10.1 Influenza due to other identified influenza virus with other respiratory manifestations (principal); J44.9 Chronic obstructive pulmonary disease, unspecified; E87.6 Hypokalemia; Z86.711 Personal history of pulmonary embolism; Z86.73 Personal history of transient ischemic attack (TIA), and cerebral infarction without residual deficits; Z87.891 Personal history of nicotine dependence
CPT/HCPCS: 71046; 80048; 85025; 93005; 94640; 99283; A4216

== ENCOUNTER → 2024-07-21 | Outpatient (CLI) | payer MEDICARE, OTHER, SELFPAY ==
[2024-07-21 10:24] LABS: Absolute Lymphocyte Count 1.92 X10^3/uL (0.83-4.51); Basophil# 0.04 X10^3/uL; Basophil% 0.7 % (0-1); Eosinophil# 0.09 X10^3/uL; Eosinophils% 1.6 % (0-5); Hemoglobin 10.9 g/dL (12.0-15.0); Lymphocyte # 1.92 X10^3/ul (0.83-4.51); Lymphocyte % 34.1 % (19-41); Mean Corp Hgb Conc 29.5 g/dL (32-36); Mean Corpuscular Volume 88.1 fL (81-99); Monocyte# 0.53 X10^3/uL; Monocyte% 9.4 % (0-10); NRBC Flagged by Analyzer 0 % (0-5); Neutrophil # 3.03 X10^3/uL (2.7-7.7); Neutrophil % 53.8 % (47-70); Platelet Count 266 K/mm3 (150-450); RBC Distribution Width CV 16.3 % (11.6-14.6); RBC Distribution Width SD 51.4 fl (35.1-43.9); White Blood Count 5.6 K/mm3 (4.4-11.0)
[2024-07-21 10:55] LABS: ALB/GLOB Ratio 1.1 RATIO (0.9-2.4); AST(SGOT) 20 U/L (<=31); Alanine Aminotransfer ALT/SGPT 13 U/L (<=34); Albumin, Serum 3.7 g/dL (3.4-4.8); Alkaline Phosphatase 88 U/L (35-104); Anion Gap 11 (5-15); BUN 13 mg/dL (4-19); BUN/Creat Ratio 14.2 RATIO (10-20); Calcium,Total 9.2 mg/dL (7.6-11.0); Carbon Dioxide 23.2 mmol/L (21.0-32.0); Chloride 107 mmol/L (98-108); EST Glomerular Filtration Rate 68 (>60); Globulin 3.4 g/dL (2.2-4.2); Glucose 117 mg/dL (70-99); Potassium 3.7 mmol/L (3.3-5.1); Protein, Total 7.1 g/dL (5.9-8.4); Sodium Level 141 mmol/L (133-145); Total Bilirubin 0.21 mg/dL (0.00-1.30)
== END | disposition home or self-care (01) ==
LOC: MTLAB 09:20
PROVIDERS: PCP Family Medicine; Referring Provider Internal Medicine Rheumatology; Visit Provider Internal Medicine Rheumatology
DX: M05.79 Rheumatoid arthritis with rheumatoid factor of multiple sites without organ or systems involvement (principal); Z79.899 Other long term (current) drug therapy
CPT/HCPCS: 36415; 80053; 85025

== ENCOUNTER → 2024-10-12 | Outpatient (CLI) | payer MEDICARE, OTHER, SELFPAY ==
[2024-10-12 15:53] LABS: Hematocrit 36.3 % (37-47); Hemoglobin 10.6 g/dL (12.0-15.0); Immature Granulocytes Count 0.030 X10^3/uL (0.0-0.0); Mean Corp Hgb Conc 29.2 g/dL (32-36); Mean Corpuscular Volume 86.6 fL (81-99); Mean Platelet Vol. 10.2 fl (6.2-12.0); NRBC Flagged by Analyzer 0 % (0-5); Platelet Count 294 K/mm3 (150-450); RBC Distribution Width CV 17.0 % (11.6-14.6); RBC Distribution Width SD 52.5 fl (35.1-43.9); Red Blood Count 4.19 M/mm3 (4.2-5.4); White Blood Count 7.1 K/mm3 (4.4-11.0)
[2024-10-12 16:48] LABS: AST(SGOT) 21 U/L (<=31); Alanine Aminotransfer ALT/SGPT 9 U/L (<=34); Albumin, Serum 3.9 g/dL (3.4-4.8); Alkaline Phosphatase 80 U/L (35-104); Anion Gap 12 (5-15); BUN 12 mg/dL (4-19); BUN/Creat Ratio 14.2 RATIO (10-20); Calcium,Total 9.5 mg/dL (7.6-11.0); Carbon Dioxide 21.7 mmol/L (21.0-32.0); Chloride 106 mmol/L (98-108); Globulin 3.3 g/dL (2.2-4.2); Glucose 124 mg/dL (70-99); Potassium 4.4 mmol/L (3.3-5.1)
--- OUTSIDE RECORDS SUMMARY | 2024-10-12 22:27 | XMS RPT_ITS | CCD ---
Author Organization [facility] CliniSyid Care Team Providers Care Technical Systems Architect Name Role Phone Sarahy VALDIVIA, Nicole Hurd Unavailable Unavailable Ellie Lozano Unavailable MD Nitin, Mario Crump Unavailable Janine, RN, Kelly Zhong Unavailable Unavailabhijit Weathers RN, Nicole Hurd Unavailable Unavailable Sarahy VALDIVIA, Nicole Hurd Unavailable Unavailable SKIP Mehta, Kelly Zhong Unavailable UnavailEllie Smith Unavailable Ellie Lozano Unavailable Ellie Lozano Unavailable Eric Lozano MD Primary Care Provider Dr. Eric Lozano Primary Care Provider Dr. Eric Lozano Referring Provider Dr. Mario Taveras Attending Provider Dr. Eric Lozano Primary Care Provider Dr. Eric Lozano Referring Provider Dr. Mario Taveras Attending Provider Eric Lozano MD Primary Care Provider Eric Lozano MD Primary Care Provider Dr. Eric Lozano Primary Care Provider Dr. Eric Lozano Referring Provider Kev CALDERON, AHSAN Rodriguez Attending Provider Eric Lozano MD Primary Care Provider Dr. Eric Lozano Primary Care Provider Dr. Eric Lozano Referring Provider Kev CALDERON, FORENSIC INVESTIGATORToanC Jennifer Attending Provider Dr. Eric Lzoano Primary Care Provider Dr. Eric Olmos Attending Provider Dr. Mario Taveras Attending Provider Dr. Eric West Emergency Provider Dr. Sophia Wang Admit Provider Dr. Sophia Wang Other Provider Dr. Dmitry Griggs Attending Provider Dr. Dmitry Griggs Other Provider Dr. Eric Olmos Other Provider Dr. Giovani Mesa Other Provider Dr. Donell Ray Other Provider Dr. Amanuel Wheeler Other Provider Dr. Cleveland Barr Other Provider Dr. Elian Garibay Other Provider Dr. Paulina Castellanos Other Provider Dr. Harmeet Murcia Other Provider Dr. Tana Aguilar Other Provider Dr. Lachelle Miller Other Provider Unavailable Dr. Ld Otero Other Provider Dr. Anurag Garrett Other Provider Dr. Keyshawn Moses Other Provider Dr. Jorje Cooley Other Provider Dr. Candelario Temple Other Provider Dr. Amanuel Wheeler Attending Provider Dr. Dmitry Griggs Referring Provider [phone] TATIANA Dave Referring Provider Dr. Eric Lozano Referring Provider [phone] TATIANA Dave Attending Provider Blake BERRIOS, Eric Hurd Primary Care Provider [phone] CLJAMEL, MIRA Referring Unavailable LOZANO, A Primary Care Unavailable LOZANO, A Primary Care Unavailable LOZANO, A Primary Care Unavailable ANNIE KATHARINE Referring Unavailable LOZANO, A Primary Care Unavailable LOZANO, A Primary Care Unavailable LOZANO, A Primary Care Unavailable Blake BERRIOS, Dr. Miles Primary Care Provider Stanley FORENSIC INVESTIGATOR-C, Yudy Attending Provider Stanley FORENSIC INVESTIGATOR-C, Yudy Referring Provider Dr. Yazan Brito DO Emergency Provider Nata GEORGE, Dr. Miles Admit Provider Nata GEORGE, Dr. Miles Other Provider Dr. Sheri Lamb DO Attending Provider Dr. Eric Peace DO Attending Provider Adonis GEORGE, Dr. Wade Other Provider Rod BERRIOS, Dr. Aly Attending Provider Rod BERRIOS, Dr. Aly Referring Provider Nitin BERRIOS, Dr. Martin Attending Provider Dr. Gladis Moralez DO Emergency Provider Dr. Gladis Moralez DO Attending Provider Jopperi, Consulting Unavailable Jopperi, Admitting Unavailable Lozano, Primary Care Unavailable Jopperi, Attending Unavailable Sheri Lamb Attending Unavailable Sheri Lamb Consulting Unavailable Sheeba Velasco Referring Unavailable Sheeba Velasco Attending Unavailable Lozano, Primary Care Unavailable Lozano, Primary Care Unavailable Lozano, Referring Unavailable Lozano, Attending Unavailable Stanley FORENSIC INVESTIGATOR, Yudy Attending Unavailable Loazno, Primary Care Unavailable Stanley FORENSIC INVESTIGATOR, Yudy Referring Unavailable Lozano, Primary Care Unavailable Glenna Dave Attending Unavailable Glenna Dave Referring Unavailable Amarilis, Attending Unavailable Lozano, Primary Care Unavailable Dave, Glenna Referring Unavailable Woodbine, Attending Unavailable Lozano, Primary Care Unavailable Dave, Glenna Referring Unavailable Vellanki, Sheeba Attending Unavailable Vellanki, Sheeba Referring Unavailable Lozano, Primary Care Unavailable Lozano, Primary Care Unavailable Dave, Glenna Referring Unavailable Dave, Glenna Attending Unavailable Vellanki, Sheeba Referring Unavailable Vellanki, Sheeba Attending Unavailable Lozano, Primary Care Unavailable Jopperi, Admitting Unavailable Lozano, Primary Care Unavailable Sheri Lamb Attending Unavailable Jopperi, Consulting Unavailable Stanley FORENSIC INVESTIGATOR, Yudy Attending Unavailable Lozano, Primary Care Unavailable Stanley FORENSIC INVESTIGATOR, Yudy Referring Unavailable Gladis Moralez Attending Unavailable Lozano, Primary Care Unavailable Lozano, Primary Care Unavailable Dale Durant Attending Unavailable Vellanki, Sheeba Attending Unavailable Vellanki, Sheeba Referring Unavailable Lozano, Primary Care Unavailable Lozano, Primary Care Unavailable Mario Taveras Attending Unavailable Lozano, Primary Care Unavailable Lozano, Referring Unavailable Lozano, Attending Unavailable Vellanki, Sheeba Attending Unavailable Vellanki, Sheeba Referring Unavailable Lozano, Primary Care Unavailable Lozano, Primary Care Unavailable Lozano, Referring Unavailable Dave, Glenna Attending Unavailable Lozano, Primary Care Unavailable Lozano, Referring Unavailable Dave, Glenna Attending Unavailable Lozano, Erci Primary Care Unavailable Nitin Mario Attending Unavailable Lozano, Primary Care Unavailable Lozano, Referring Unavailable Kev FORENSIC INVESTIGATOR, Jennifer Attending Unavailable Amarilis, Attending Unavailable Dmitry Griggs Referring Unavailable Lozano, Primary Care Unavailable Amarilis, Attending Unavailable Lozano, Primary Care Unavailable Dave, Glenna Referring Unavailable Allergies Allergy Classification Reported Allergen(s) Allergy Type Date of Onset Reaction(s) Facility Amoxicillin / Clavulanate (1 source) Amoxicillin / Clavulanate Drug Allergy 6 GI Upset [facility] Doxycycline (1 source) Doxycycline Drug Allergy 2 Unknown [facility] (20 sources) Doxycycline; Translations: [DOXYCYCLINE] Drug Allergy 1 Unknown [facility] (12 sources) environmental [Other] Propensity to adverse reactions 7 [facility] Work Phone: (17 sources) Amoxicillin / Clavulanate; Translations: [AMOXICILLIN-POT CLAVULANATE] Drug Allergy 6 GI Upset [facility] (1 source) OTHER; Translations: [OTHER] Propensity to adverse reactions (disorder) 7 [facility] Repository (1 source) Doxycycline Drug Allergy 5 [facility] Repository Medications Current Medications Medication Drug Class(es) Dates Sig (Normalized) Sig (Original) [id number] 200 actuat albuterol 0.09 mg/actuat metered dose inhaler (20 sources) beta2-Adrenergic Agonist Start: 03-29-2024 take 2 puff(s) by inhalation every four hours as needed for wheezing albuterol HFA (PROVENTIL HFA, VENTOLIN HFA) 90 mcg/actuation inhaler Indications: Bronchopneumonia Inhale 2 Puffs as instructed every 4 hours as needed for wheezing/shortness of breath. 1 Each 03/29/2024 Active Start: 10-13-2023 take 2 puff(s) by in halation every four hours as needed for wheezing albuterol HFA (PROVENTIL HFA, VENTOLIN HFA) 90 mcg/actuation inhaler Inhale 2 Puffs as instructed every 4 hours as needed for wheezing/shortness of breath. 8 g 10/13/2023 Active Start: 09-14-2021 take 2 puff(s) by in halation every six hours as needed for wheezing albuterol HFA (PROVENTIL HFA, VENTOLIN HFA) 90 mcg/actuation inhaler Inhale 2 Puffs as instructed every 6 hours as needed for wheezing/shortness of breath. 1 Each 09/14/2021 Active Start: 10-16-2016 End: 10-16-2016 PROAIR HFA 108 (90 Base) MCG /ACT AERS as direceted ALBUTEROL SULFATE [id number] Mario Taveras MD Start: 10-16-2016 End: 10-16-2016 PROAIR HFA 108 (90 Base) MCG /ACT AERS as direceted ALBUTEROL SULFATE [id number] Mario Taveras MD Start: 07-05-2017 PROAIR HFA 108 (90 Base) MCG/ACT AERS as direceted ALBUTEROL SULFATE [id number] Kelly Mehta RN Comment on above: Inhale 2 Puffs as in structed every 6 hours as needed for wheezing/shortness of breath. amoxicillin 875 mg / clavulanate 125 mg oral tablet (2 sources) Penicillin-class Antibacterial Start: 06-06-19 End: 06-14-19 take 1 tablet by mouth twice daily amoxicillin-clavu lanate potassium (AUGMENTIN) 875-125 mg per tablet Indications: Bacterial sinusitis Take 1 tablet by mouth two times a day for 7 days. 14 tablet 06/06/2024 06/13/2024 Active Start: 09-14-2021 End: 09-24-2021 take 1 tablet by mouth twice daily amoxicillin-clavulanic acid (AUGMENTIN) 875-125 mg per tablet Take 1 tablet by mouth twice daily for 10 days. 20 tablet 0 09/14/2021 09/24/2021 Active Comment on above: Take 1 tablet by [facility] twice daily for 10 days. azithromycin 250 mg oral tablet (6 sources) Macrolide Antimicrobial Start: 03-29-2024 azithromycin (ZITHROMAX Z-FERDINAND) 250 mg tablet Indications: Bronchopneumonia Take 2 tablets (500 mg) by mouth on day 1, then take 1 tablet (250 mg) by mouth for 4 days. 6 tablet 03/29/2024 Active Start: 10-13-2023 End: 10-18-2023 azithromycin (ZITHROMAX Z-PA K) 250 mg tablet Take 2 tablets day [...] ne, then, 1 tablet daily until gone. Blood Pressure Monitor (9 sources) Start: 11-08-2022 Blood Pressure Monitor Active 0 .Route 1 November 07, 2022 11:00pm As directed Start: 11-08-2022 Blood Pressure Monitor Active 0 .Route November 08, 2022 12:00am As directed Blood Pressure Monitor kit (2 sources) Start: 11-08-2022 Blood Pressure Monitor kit Active 0 .Route November 08, 2022 12:00am As directed budesonide 0.032 mg/actuat metered dose nasal spray (20 sources) Corticosteroid Start: 03-20-2007 BUDESONIDE 32 MCG/ACTUATION NASAL SPRAY once spray each nostril once daily prn 0 03/20/2007 Active Start: 03-20-2007 BUDESONIDE 32 MCG/ACTUATION NASAL SPRAY once spray each nostril once daily prn 0 03/20/2007 Active Comment on above: once spray each nost ril once daily prn cephalexin 500 mg oral capsule (1 source) Cephalosporin Antibacterial Start: 3 End: 3 take 1 capsule by mouth three times daily cephALEXin (KEFLEX) 500 mg capsule Indications: Pain in salivary gland region Take 1 capsule by mouth three times daily for 7 days. 21 capsule 0 08/15/2022 08/22/2022 Active Comment on above: Take 1 capsule by [facility] three times daily for 7 days. codeine phosphate 2 mg/ml / guaiFENesin 20 mg/ml oral solution (2 sources) Opioid Agonist Start: 5 take 1 mL by mouth every six hours as needed for cough Codeine-Guaifenesi n (Guaifenesin Ac) 10-100 mg/5 mL liquid Active 5 mL PO EVERY 6 HOURS as needed for cough 118 June 28, 2024 12:00am famotidine 20 mg oral tablet (20 sources) Histamine-2 Receptor Antagonist Start: 2 take 1 tablet by mouth twice daily Famotidine 20 mg tablet Active 20 mg PO TWICE A DAY November 08, 2021 12:00am Start: 11-02-2019 End: 11-16-2019 take 1 tablet by mouth twice daily as needed Famotidine 20 mg tablet Discontinued 20 mg PO TWICE A DAY as needed November 02, 2019 12:00am November 16, 2019 3:03pm fexofenadine hydrochloride 180 mg oral tablet (20 sources) Histamine-1 Receptor Antagonist Start: 03-20-2007 fexofenadine hcl(PILLO 180 MG TAB) Take one(1) tablet daily. 0 03/20/2007 Active Comment on above: Take one(1) tablet d aily. hydroxychloroquine sulfate 200 mg oral tablet (20 sources) Antirheumatic Agent Start: 07-22-2006 take 1 tablet by mouth twice daily at mealtime Hydroxychloroquine 200 MG tablet Active 200 mg PO TWICE DAILY WITH MEALS September 18, 2013 12:00am Comment on above: Take one(1) tablet t wice daily. Inhalational Spacing Device (2 sources) Start: 10-13-2023 End: 10-13-2023 Inhalational Spacing Device 1 Device one time only for 1 dose. 1 Each 0 10/13/2023 10/13/2023 Active Start: 09-14-2021 End: 09-14-2021 Inhalational Spacing Device 1 Device one time only for 1 dose. 1 Each 0 09/14/2021 09/14/2021 Active Comment on above: 1 Device one time on ly for 1 dose. leucovorin 15 mg oral tablet (11 sources) Folate Analog Start: 3 take 1 tablet by mouth every week Leucovorin Calcium 15 mg tablet Active 15 mg PO EVERY WEEK November 08, 2022 12:00am Pt takes every mecobalamin (2 sources) Start: 4 Mecobalamin (Vitamin B12) 5,000 mcg tablet,chewable Active 3000 ug PO daily January 06, 2024 12:00am methotrexate 25 mg/ml injectable solution (20 sources) Folate Analog Metabolic Inhibitor Start: 4 Methotrexate Sodium 25 mg/mL solution Active 18.75 mg SC EVERY WEEK July 28, 2023 12:00am Pt takes every Friday Start: 07-28-2023 Methotrexate S odium Active 18.75 MG SC EVERY WEEK July 28, 2023 12:00am Pt takes every Friday Start: 11-08-2022 End: 07-28-2023 Methotrexate (Pf) 7.5 mg/0.1 5 mL auto-injector Discontinued 7.5 mg SC EVERY WEEK November 08, 2022 12:00am July 28, 2023 11:42am Start: 09-10-2022 inject 0.5 mL by sub cutaneous injection every week methotrexate, PF, 25 mg/mL soln Inject 1/2 milliliter(s) Subcutaneous once a week, single use vials, use and discard 09/10/2022 Active Comment on above: Inject 1/2 millilite r(s) Subcutaneous once a week, single use vials, use and discard pantoprazole 40 mg delayed release oral tablet (20 sources) Proton Pump Inhibitor Start: 02-27-20 take 1 tablet by mouth once daily Pantoprazole 40 MG tablet,delayed release (DR/EC) Active 40 mg PO DAILY February 26, 2019 1:00am pantoprazole sod ium (PANTOPRAZOLE ORAL) Take by mouth. Active pantoprazole sod ium (PANTOPRAZOLE ORAL) Take by mouth. 0 Active Comment on above: Take by mouth. 100 ml potassium chloride 0.1 meq/ml injection (7 sources) potassium chlori de in water 10 mEq/100 mL Inject 10 mEq intravenously one time only. Active Comment on above: Inject 10 mEq intrav enously one time only. potassium citrate 10 meq extended release oral tablet (2 sources) Start: 4 take 1 tablet by mouth twice daily Potassium Citrate 10 mEq (1,080 mg) tablet extended release Active 10 meq PO TWICE A DAY March 31, 2024 1:00am predniSONE 20 mg oral tablet (20 sources) Start: 5 End: 5 take 1 tablet by mouth twice daily predniSONE (DELTASONE) 20 mg tablet Indications: Viral bronchitis Take 1 tablet by mouth two times a day for 5 days. 10 tablet 05/26/2024 05/31/2024 Active Start: 10-13-2023 End: 05-26-2024 Prednisone 10 mg tablet Acti ve 10 mg PO DAILY April 01, 2024 1:00am 4 tablets x 3 days, 3 tablets x 3 days, 2 tablets x 3 days, 1 tablet x 3 days then stop Start: 12-23-2022 End: 12-28-2022 take 2 tablets by mouth once daily predniSONE (DELTASONE) 20 mg tablet Indications: Lower resp. tract infection Take 2 tablets by mouth once daily for 5 days. 10 tablet 0 12/23/2022 12/28/2022 Active Start: 11-08-2022 take 1 tablet by [facility] once daily Prednisone 2.5 mg tablet Active 2.5 mg PO DAILY November 08, 2022 12:00am On Hold: Restart once your prednisone taper is completed Start: 09-26-2022 End: 10-01-2022 take 4 tablets [...] tablet 0 08/15/2022 08/20/2022 Active Start: 03-05-2022 End: 05-26-2024 predniSONE (DELTASONE) 10 mg tablet 2.5 mg. 03/05/2022 05/26/2024 Discontinued (Course of therapy completed) Start: 03-05-2022 take 1 tablet by [facility] once daily as needed predniSONE (DELTASONE) 10 [...] for 10 days 0 05/30/2021 09/14/2021 Discontinued Start: 07-04-2018 End: 10-27-2018 take 4 tablets by mouth once daily, then take 3 tablets by mouth once daily, then take 2 tablets by mouth once daily, then take 1 tablet by mouth once daily, then take 1 tablet by mouth every other day Prednisone 10 MG tablet Discontinued 10 mg PO DIRECTED July 04, 2018 12:00am October 27, 2018 11:04am Take 4 tablets daily for 3 days, then 3 daily for 3 days, then 2 daily for 3 days, then 1 a day for 3 days then 1 QOD for 3 doses. Comment on above: TAKE 2 TABLETS TWICE [...] for 10 days Take 2 tablets by [facility] once daily for 5 days. Take daily with food. TAKE 1 TABLET BY [facility] EVERY DAY NEEDED. Take for 3 - 5 days with a flare. Take 2 tablets by [facility] once daily for 5 days. Take 4 tablets by [facility] once daily for 5 days. 2.5 mg. sulfaSALAzine 500 mg delayed release oral tablet (20 sources) Aminosalicylate Start: take 2 tablets by mouth twice daily Sulfasalazine 500 mg tablet,delayed release (DR/EC) Active 1000 mg PO TWICE A DAY July 28, 2023 12:00am Start: 07-28-2023 take 1000 mg by [facility] twice daily Sulfasalazine Active 1000 MG PO TWICE A DAY July 28, 2023 12:00am Start: 11-08-2022 End: 07-28-2023 take 1 tablet by mouth twice daily at mealtime Sulfasalazine 500 mg tablet Discontinued 1 g PO TWICE A DAY November 08, 2022 12:00am July 28, 2023 11:42am give with food (meal/snack) Start: 11-08-2022 End: 07-28-2023 take 1 g by mouth twice daily at mealtime Sulfasalazine Discontinued 1 GM PO TWICE A DAY November 08, 2022 12:00am July 28, 2023 11:42am give with food (meal/snack) Start: 06-19-2022 sulfaSALAzine EC (AZULFIDINE EN) 500 mg EC tablet 06/19/2022 Active traMADol hydrochloride 50 mg oral tablet (11 sources) Opioid Agonist Start: 07-28-2023 take 50-100 mg by mouth every six hours as needed for pain Tramadol 50 mg tablet Active 50 - 100 mg PO EVERY 6 HOURS NEEDED as needed for pain July 28, 2023 12:00am Start: 10-16-2016 take 1 tablet by [facility] twice daily as needed TRAMADOL HCL 50 MG TABS One tablet by mouth twice daily as needed TRAMADOL HCL [id number] Mario Taveras MD Completed/Discontinued Medications Medication Drug Class(es) Dates Sig (Normalized) Sig (Original) acetaminophen 325 mg / HYDROcodone bitartrate 5 mg oral tablet (20 sources) Opioid Agonist Start: 05-31-2023 End: 07-28-2023 Hydrocodone-Acetami nophen 5-325 mg tablet Discontinued 1 {tbl} PO EVERY 4 HOURS NEEDED as needed for Pain 12 May 31, 2023 July 28, 2023 1:53pm Start: 05-31-2023 End: 07-28-2023 take 1 tablet by mouth every four hours as needed Hydrocodone-Acetaminophen Discontinued 1 TABLET PO EVERY 4 HOURS NEEDED 12 May 31, 2023 July 28, 2023 1:53pm Start: 10-16-2016 End: 10-16-2016 HYDROCODONE-ACETAMINOPHEN 5- 325 MG TABS as directed HYDROCODONE-ACETAMINOPHEN [id number] Mario Taveras MD acetaminophen 325 mg / oxyCODONE hydrochloride 5 mg oral tablet (20 sources) Opioid Agonist Start: 07-30-2020 End: 08-02-2020 Oxycodone-Acetaminophen 1 TABLET tablet Discontinued 1 {tbl} PO EVERY 6 HOURS NEEDED as needed for Pain 12 July 30, 2020 August 01, 2020 12:00am August 02, 2020 12:02am Start: 07-30-2020 End: 08-02-2020 take 1 tablet by mouth every six hours as needed Oxycodone-Acetaminophen Discontinued 1 TABLET PO EVERY 6 HOURS NEEDED 12 July 30, 2020 August 02, 2020 12:02am amLODIPine 5 mg oral tablet (20 sources) Dihydropyridine Calcium Channel Rigo Start: 10-27-2018 End: 10-27-2018 take 1 tablet by mouth once daily Amlodipine 5 mg tablet Discontinued 5 mg PO DAILY 90 October 27, 2018 12:00am October 27, 2018 11:25am apixaban 5 mg oral tablet (14 sources) Factor Xa Inhibitor Start: 08-12-2023 End: 03-31-2024 take 1 tablet by mouth twice daily Apixaban (Eliquis) 5 mg tablet Discontinued 5 mg PO TWICE A DAY 60 August 12, 2023 4:13pm March 31, 2024 9:57am Start: 07-31-2023 End: 08-12-2023 Apixaban (Eliquis) 5 mg tabl et Discontinued 5 mg PO TWICE A DAY 72 July 31, 2023 12:00am August 12, 2023 4:14pm Please take 10 mg (2 tablets) twice daily for 6 days (through 08/05), then take 5 mg (1 tablet) twice daily going forward. aspirin 81 mg delayed release oral tablet (20 sources) Nonsteroidal Anti-inflammatory Drug Start: 10-10-2016 End: 10-16-2016 take 1 tablet by mouth once daily ASPIRIN EC 81 MG TBEC One tablet by mouth daily ASPIRIN [id number] Nicole Weathers RN take 1 tablet by mouth once abraham y ASPIRIN 81 MG ORAL TABS One tablet by mouth daily ASPIRIN [id number] Vianey Chevy SAMPLE TAILOR take 1 tablet by mouth once abraham y ASPIRIN 81 MG ORAL TABS One tablet by mouth daily ASPIRIN [id number] Vianey Chevy SAMPLE TAILOR benzonatate 100 mg oral capsule (20 sources) Non-narcotic Antitussive Start: 09-26-2022 End: 06-02-2024 take 1 capsule by mouth every eight hours as needed benzonatate (TESSALON PERLES) 100 mg capsule Take 1 capsule by mouth three times daily as needed for cough. 12 capsule 09/26/2022 05/26/2024 Discontinued (Course of therapy completed) Start: 06-16-2021 End: 09-26-2022 take 2 capsules by mouth three times daily as needed for cough benzonatate (TESSALON PERLES) 100 mg capsule Indications: Sinobronchitis Take 2 capsules by mouth three times daily as needed for cough. 60 capsule 0 06/16/2021 09/26/2022 Discontinued (Course of therapy completed) Start: 02-27-2019 End: 11-02-2019 take 2 capsules by mouth three times daily as needed for cough Benzonatate 100 MG capsule Discontinued 200 mg PO 3 TIMES DAILY NEEDED as needed for Cough February 27, 2019 1:00am November 02, 2019 10:08am Start: 02-26-2019 End: 11-02-2019 take 200 mg by mouth three times daily as needed Benzonatate Discontinued 200 MG PO 3 TIMES DAILY NEEDED February 27, 2019 1:00am November 02, 2019 10:08am Start: 02-26-2019 End: 11-02-2019 Benzonatate 100 MG capsule Discontinued 1 NMA PO NEEDED as needed for Cough February 26, 2019 1:00am November 02, 2019 10:08am Start: 02-26-2019 End: 11-02-2019 Benzonatate Discontinued 1 C AP PO NEEDED February 26, 2019 1:00am November 02, 2019 10:08am Comment on above: Take 2 capsules by m [facility] three times daily as needed for cough. Take 1 capsule by mo [facility] three times daily as needed for cough. celecoxib 200 mg oral capsule (5 sources) Nonsteroidal Anti-inflammatory Drug Start: 10-17-19 17 take 1 tablet by mouth once daily CELEBREX 200 MG CAPS One tablet by mouth daily CELECOXIB [id number] Mario Taveras MD cetirizine hydrochloride 10 mg oral tablet (20 sources) Histamine-1 Receptor Antagonist Start: 10-30-19 11 End: 05-09-19 15 take 1 tablet by mouth once daily ZYRTEC ALLERGY 10 MG TABS One tablet by mouth daily CETIRIZINE HCL [id number] Yara Narvaez diclofenac sodium 75 mg delayed release oral tablet (20 sources) Nonsteroidal Anti-inflammatory Drug Start: 10-24-19 18 End: 10-28-19 19 take 1 tablet by mouth twice daily Diclofenac Sodium 75 mg tablet,delayed release (DR/EC) Discontinued 75 mg PO TWICE A DAY October 23, 2017 12:00am October 27, 2018 11:06am etodolac 400 mg oral tablet (20 sources) Nonsteroidal Anti-inflammatory Drug Start: 11-16-19 20 End: 07-28-20 22 take 1 tablet by mouth twice daily Etodolac 400 mg tablet Discontinued 400 mg PO TWICE A DAY November 16, 2019 12:00am November 08, 2021 9:15am ferrous gluconate (20 sources) End: 11-23-19 take 1 tablet by mouth once daily IRON 240 (27 Fe) MG TABS One tablet by mouth daily FERROUS GLUCONATE [id number] Ana Hackett take 1 tablet by mouth once abraham y IRON 240 (27 Fe) MG TABS One tablet by mouth daily FERROUS GLUCONATE [id number] Vianey Reece SAMPLE TAILOR folic acid 1 mg oral tablet (18 sources) Start: 11-08-2022 End: 07-28-2023 take 2 tablets by mouth once daily Folic Acid 1 mg tablet Discontinued 2 mg PO DAILY November 08, 2022 12:00am July 28, 2023 1:53pm Start: 11-08-2022 End: 07-28-2023 take 2 mg by mouth once daily Folic Acid Discontinued 2 MG PO DAILY November 08, 2022 12:00am July 28, 2023 1:53pm take 1 tablet by [facility] twice daily folic acid 1 mg tablet Take 1 mg by mouth two times a day. Active Comment on above: Take 1 mg by mouth t wo times a day. hydrOXYzine hydrochloride 25 mg oral tablet (20 sources) Antihistamine Start: 11-16-19 End: 11-09-19 take 1 tablet by mouth twice daily as needed Hydroxyzine Hcl 25 mg tablet Discontinued 25 mg PO TWICE A DAY as needed November 16, 2019 12:00am November 08, 2021 9:15am Start: 10-16-2016 HYDROXYZINE HC L 25 MG TABS (Atarax) As needed HYDROXYZINE HCL [id number] Mario Taveras MD ipratropium bromide 0.021 mg/actuat nasal spray (7 sources) Anticholinergic Start: 10-16-2016 IPRATROPIUM BR OMIDE 0.03 % SOLN Nasal spray as directed IPRATROPIUM BROMIDE [id number] Kelly Mehta RN LACTOBACILLUS CAPS (6 sources) Start: 10-16-2016 End: 10-16-2016 take 1 tablet by mouth once daily ACIDOPHILUS CAPS One tablet by mouth daily LACTOBACILLUS CAPS [id number] Mario Taveras MD Start: 10-16-2016 take 1 tablet by [facility] once daily ACIDOPHILUS CAPS One tablet by mouth daily LACTOBACILLUS CAPS [id number] Kelly Mehta RN LACTOBACILLUS CAPS (6 sources) Start: 10-16-2016 End: 10-16-2016 take 1 tablet by mouth once daily ACIDOPHILUS CAPS One tablet by mouth daily LACTOBACILLUS CAPS [id number] Mario Taveras MD Start: 10-16-2016 take 1 tablet by vent[place] th once daily ACIDOPHILUS CAPS One tablet by mouth daily LACTOBACILLUS CAPS [id number] Kelly Mehta RN levoFLOXacin 500 mg oral tablet (20 sources) Quinolone Antimicrobial Start: 06-04-2016 End: 10-23-2017 take 1 tablet by mouth once daily Levofloxacin 500 MG tablet Discontinued 500 mg PO DAILY June 04, 2016 1:00am October 23, 2017 9:57am LORazepam 0.5 mg oral tablet (20 sources) Benzodiazepine Start: 10-29-2010 End: 05-09-2014 take 1 tablet by mouth every six hours as needed LORAZEPAM 0.5 MG TABS 1 tablet by mouth Q6H as needed LORAZEPAM [id number] Yarajorge Narvaez metoprolol tartrate 50 mg oral tablet (20 sources) beta-Adrenergic Rigo Start: 05-02-2022 End: 05-14-2024 Metoprolol Tartrate 50 mg tablet Discontinued 0 .ROUTE .COMPLEX 180 April 05, 2024 11:14am May 14, 2024 4:39pm TAKE 1 TABLET TWICE A DAY Start: 11-02-2019 End: 11-08-2021 take 1 tablet by mouth twice daily Metoprolol Tartrate 50 mg tablet Discontinued 50 mg PO TWICE A DAY 180 December 19, 2020 11:36am November 08, 2021 9:14am Start: 10-27-2018 End: 11-02-2019 Metoprolol Tartrate 100 mg t ablet Discontinued 50 mg PO TWICE A DAY 90 October 27, 2018 11:26am November 02, 2019 10:04am Start: 10-27-2018 End: 11-02-2019 take 50 mg by mouth twice daily Metoprolol Tartrate Di scontinued 50 MG PO TWICE A DAY 90 October 27, 2018 11:26am November 02, 2019 10:04am Start: 07-22-2006 End: 10-27-2018 take 1 tablet by mouth twice daily Metoprolol Tartrate 100 MG tablet Discontinued 100 mg PO TWICE A DAY September 18, 2013 12:00am October 27, 2018 11:16am Comment on above: Take one(1) tablet t wice daily. miSOPROStol 0.1 mg oral tablet (20 sources) Prostaglandin E1 Analog Start: 11-16-19 End: 11-09-19 take 1 tablet by mouth twice daily Misoprostol 100 mcg tablet Discontinued 100 ug PO TWICE A DAY November 16, 2019 12:00am November 08, 2022 8:43am MOMETASONE FUROATE (20 sources) Corticosteroid Start: 10-30-19 11 End: 05-09-19 15 NASONEX 50 MCG/ACT SUSP Take as directed MOMETASONE FUROATE [id number] Vianey Urbane SAMPLE TAILOR Start: 10-29-2010 End: 05-09-2014 NASONEX 50 MCG/ACT SUSP Take as directed MOMETASONE FUROATE [id number] Vianey Luceroispie SAMPLE TAILOR Start: 10-29-2010 NASONEX 50 MCG /ACT SUSP Take as directed MOMETASONE FUROATE [id number] Yara Narvaez nabumetone 750 mg oral tablet (20 sources) Nonsteroidal Anti-inflammatory Drug Start: 11-02-2019 End: 11-16-2019 take 1 tablet by mouth twice daily Nabumetone 750 mg tablet Discontinued 750 mg PO TWICE A DAY November 02, 2019 12:00am November 16, 2019 3:04pm omeprazole 10 mg delayed release oral capsule (20 sources) Proton Pump Inhibitor Start: 09-18-2013 End: 10-23-2017 take 2 capsules by mouth twice daily Omeprazole 10 MG capsule Discontinued 20 mg PO TWICE A DAY September 18, 2013 12:00am October 23, 2017 9:57am Start: 09-18-2013 End: 10-23-2017 take 20 mg by mouth twice daily Omeprazole Discontinued 20 MG PO TWICE A DAY September 18, 2013 12:00am October 23, 2017 9:57am Start: 07-22-2006 End: 02-11-2023 PRILOSEC 20 MG CAP Take one( 1) capsule twice daily. 0 07/22/2006 02/11/2023 Discontinued Comment on above: Take one(1) capsule twice daily. [id number]-[id number]-FA (16 sources) End: 10-16-2016 take 1 tablet by mouth once daily PRE- FORMULA TABS One tablet by mouth daily. [id number] [id number] Kelly Mehta RN take 1 tablet by mouth once abraham y PRE-CARSON FORMULA TABS One tablet by mouth daily. [id number]-[id number]-KL-FA [id number] Marcelo Gomez take 1 tablet by mouth once abraham y PRE- FORMULA TABS One tablet by mouth daily. [id number]-FA [id number] Ana Hackett [id number]-[id number]-FD-FA (11 sources) End: 10-16-2016 take 1 tablet by mouth once daily PRE-CARSON FORMULA TABS One tablet by mouth daily. [id number] Kelly Mehta RN take 1 tablet by mouth once abraham y PRE- FORMULA TABS One tablet by mouth daily. BIGVAFAR-VJU-MH-FA [id number] Marcelo Gomez take 1 tablet by mouth once abraham y PRE-CARSON FORMULA TABS One tablet by mouth daily. [id number]-CVM-[id number]-FA [id number] Ana Hackett raNITIdine 150 mg oral tablet (20 sources) Histamine-2 Receptor Antagonist Start: 09-18-2013 End: 11-02-2019 take 2 tablets by mouth at bedtime Ranitidine Hcl 150 MG tablet Discontinued 300 mg PO AT BEDTIME September 18, 2013 12:00am November 02, 2019 10:04am Start: 09-18-2013 End: 11-02-2019 take 300 mg by mouth at bedtime Ranitidine Hcl Discont inued 300 MG PO AT BEDTIME September 18, 2013 12:00am November 02, 2019 10:04am Start: 09-18-2013 End: 11-02-2019 take 300 mg by mouth at bedtime Ranitidine Hcl Discont inued 300 MG PO AT BEDTIME September 17, 2013 11:00pm November 02, 2019 9:04am Start: 10-29-2010 End: 10-16-2016 take 1 tablet by mouth at bedtime RANITIDINE HCL 300 MG CAPS One tablet by mouth at bedtime RANITIDINE HCL [id number] Mario Taveras MD Sennosides (Senna) 8.6 MG tablet (20 sources) Start: 07-30-2020 End: 11-01-2020 take 1 tablet by mouth at bedtime Sennosides (Senna) 8.6 MG tablet Discontinued 8.6 MG PO AT BEDTIME July 30, 2020 1:43pm November 01, 2020 8:59am Start: 07-30-2020 End: 11-01-2020 take 1 tablet by mouth at bedtime Sennosides (Senna) 8.6 MG tablet Discontinued 8.6 mg PO AT BEDTIME July 30, 2020 12:00am November 01, 2020 8:59am Start: 07-30-2020 End: 11-01-2020 take 1 tablet by mouth at bedtime Sennosides (Senna) 8.6 MG tablet Discontinued 8.6 MG PO AT BEDTIME July 29, 2020 11:00pm November 01, 2020 7:59am Start: 07-30-2020 End: 11-01-2020 take 1 tablet by mouth at bedtime Sennosides (Senna) 8.6 MG tablet Discontinued 8.6 MG PO AT BEDTIME July 30, 2020 12:00am November 01, 2020 8:59am simvastatin 40 mg oral tablet (20 sources) HMG-CoA Reductase Inhibitor End: 11-22-2014 take 1 tablet by mouth once daily SIMVASTATIN 40 MG TABS One tablet by mouth daily SIMVASTATIN [id number] Ana Hackett UMECLIDINIUM-VILANT TRISTAN (12 sources) Anticholinergic, beta2-Adrenergic Agonist Start: 10-16-2016 End: 10-16-2016 ANORO ELLIPTA 62.5-25 MCG/INH AEPB as direceted UMECLIDINIUM-VILAN TEROL [id number] Mario Taveras MD Start: 10-16-2016 End: 10-16-2016 ANORO ELLIPTA 62.5-25 MCG/IN H AEPB as direceted UMECLIDINIUM-VILANTEROL [id number] Kelly Mehta RN Start: 10-16-2016 ANORO ELLIPTA 62.5-25 MCG/INH AEPB as direceted UMECLIDINIUM-VILANTEROL [id number] Kelly Mehta RN Problems Active Problems Problem Classification Problem Date Documented Date Episodic/Chronic Acquired foot deformities (20 sources) Acquired hallux malleus; Translations: [Other hammer toe(s) (acquired), unspecified foot] Onset: 05-26-2007 05-26-2007 Chronic Acute bronchitis (1 source) Viral bronchitis; Translations: [Acute bronchitis due to other specified organisms] 05-26-2024 Episodic Biliary tract disease (20 sources) Calculus of gallbladder with cholecystitis; Translations: [Calculus of gallbladder with chronic cholecystitis without obstruction] 11-07-2021 Episodic Cardiac dysrhythmias (20 sources) Supraventricular tachycardia; Translations: [Paroxysmal supraventricular tachycardia] Onset: 10-29-2010 10-29-2010 Chronic Comment on above: RFA 03/2003 Chronic obstructive pulmonary disease and bronchiectasis (6 sources) Acute exacerbation of chronic obstructive airways disease; Translations: [Chronic obstructive pulmonary disease with (acute) exacerbation] Onset: 04-01-2024 04-09-2024 Chronic Diseases of mouth; excluding dental (1 source) Finding of salivary apparatus; Translations: [Other diseases of salivary glands] Episodic Diseases of white blood cells (20 sources) Neutropenia; Translations: [Neutropenia] Onset: 11-22-2014 11-22-2014 Chronic E Codes: Fall (8 sources) Fall; Translations: [Unspecified fall, initial encounter] 05-31-2023 Episodic Esophageal disorders (20 sources) Gastroesophageal reflux disease; Translations: [Gastro-esophageal reflux disease without esophagitis] 11-07-2021 Chronic Essential hypertension (20 sources) Essential hypertension; Translations: [Essential (primary) hypertension] Chronic Fluid and electrolyte disorders (12 sources) Hypokalemia; Translations: [Hypokalemia] Onset: 10-29-2010 10-29-2010 Episodic Fracture of lower limb (3 sources) Closed fracture proximal phalanx, toe ; Translations: [Nondisplaced fracture of proximal phalanx of right lesser toe(s), initial encounter for closed fracture] 01-29-2023 Episodic Fracture of lower limb (14 sources) Bimalleolar fracture of ankle ; Translations: [Displaced bimalleolar fracture of left lower leg, initial encounter for closed fracture] 05-31-2023 Episodic Immunizations and screening for infectious disease (1 source) Suspected disease caused by 2019-nCoV; Translations: [Suspected COVID-19 virus infection] Episodic Influenza (2 sources) Influenza due to Influenza A virus; Translations: [Influenza due to other identified influenza virus with other respiratory manifestations] 06-28-2024 Episodic Nonspecific chest pain (4 sources) Chest wall pain; Translations: [Other chest pain] 09-14-2023 Episodic Other aftercare (2 sources) Long-term current use of anticoagulant; Translations: [detention (current) use of anticoagulants] 09-14-2023 Episodic Other injuries and conditions due to external causes (1 source) Injury of toe of right foot; Translations: [Unspecified injury of right foot, initial encounter] 01-29-2023 Episodic Other injuries and conditions due to external causes (1 source) Injury of toe of left foot; Translations: [Unspecified injury of left foot, initial encounter] 05-18-2021 Episodic Other injuries and conditions due to external causes (2 sources) Other, multiple and ill-defined fractures of lower limb, closed; Translations: [Fracture of left knee region] 06-08-2023 Episodic Other lower respiratory disease (8 sources) Cough; Translations: [Cough] Episodic Other lower respiratory disease (1 source) Lower respiratory tract infection; Translations: [Unspecified acute lower respiratory infection] 12-23-2022 Episodic Other lower respiratory disease (1 source) Cough; Translations: [Acute cough] 05-26-2024 Episodic Other lower respiratory disease (1 source) Shortness of breath; Translations: [Shortness of breath] Onset: 05-02-2024 Episodic Other nutritional; endocrine; and metabolic disorders (8 sources) Body mass index (BMI) 34.0-34.9, adult; Translations: [Body mass index (BMI) 34.0-34.9, adult] Onset: 10-16-2016 10-16-2016 Chronic Other nutritional; endocrine; and metabolic disorders (19 sources) Obesity; Translations: [Obesity, unspecified] 11-07-2021 Chronic Other nutritional; endocrine; and metabolic disorders (2 sources) Obesity, unspecified; Translations: [Obesity, unspecified] 07-28-2023 Chronic Other screening for suspected conditions (not mental disorders or infectious disease) (1 source) Abnormal findings on diagnostic imaging of other specified body structures; Translations: [Abnormal findings on diagnostic imaging of other specified body structures] Onset: 12-18-2023 Chronic Other upper respiratory disease (20 sources) Chronic rhinitis; Translations: [Chronic rhinitis] Onset: 06-22-2007 06-22-2007 Chronic Other upper respiratory infections (2 sources) Chronic sinusitis; Translations: [Chronic sinusitis, unspecified] Chronic Other upper respiratory infections (3 sources) Acute upper respiratory infection; Translations: [Acute upper respiratory infection, unspecified] Episodic Pneumonia (except that caused by tuberculosis or sexually transmitted disease) (20 sources) Pneumonia; Translations: [Pneumonia, unspecified organism] 06-05-2016 Episodic Pulmonary heart disease (14 sources) Pulmonary embolism; Translations: [Other pulmonary embolism without acute cor pulmonale] 07-28-2023 Episodic Rheumatoid arthritis and related disease (20 sources) Rheumatoid arthritis, unspecified; Translations: [Rheumatoid arthritis] Onset: 07-22-2006 06-22-2007 Chronic Substance-related disorders (20 sources) Tobacco user; Translations: [Nicotine dependence, unspecified, uncomplicated] Onset: 06-22-2007 06-30-2007 Chronic Unclassified (5 sources) Preoperative cardiovascular examination ; Translations: [Encounter for preprocedural cardiovascular examination] Onset: 10-11-2016 10-11-2016 Unclassified (1 source) Acute cough; Translations: [Acute cough] Onset: 10-13-2023 Unclassified (2 sources) Call and set up an appointment to be seen at the physicians first availability Unclassified (1 source) Cough, unspecified; Translations: [Cough, unspecified] Onset: 07-06-2024 Viral infection (1 source) Viral disease; Translations: [Viral infection, unspecified] Episodic Past or Other Problems Problem Classification Problem Date Documented Da te Episodic/Chronic Cardiac dysrhythmias (20 sources) Palpitations; Translations: [Palpitations] Onset: 8 06-22-2007 Episodic Deficiency and other anemia (20 sources) Anemia; Translations: [Iron deficiency anemia] Onset: 5 Resolved: 7 05-09-2014 Episodic Deficiency and other anemia (4 sources) Iron deficiency anemia; Translations: [Iron deficiency anemia, unspecified] Onset: 6 07-25-2015 Episodic Other circulatory disease (10 sources) Electrocardiogram abnormal; Translations: [Abnormal electrocardiogram [ECG] [EKG]] Onset: 1 10-29-2010 Episodic Other connective tissue disease (20 sources) Calcaneal spur; Translations: [Calcaneal spur, unspecified foot] Onset: 7 07-22-2006 Episodic Other connective tissue disease (1 source) Other specified soft tissue disorders; Translations: [Other specified soft tissue disorders] Onset: 4 Episodic Other nervous system disorders (9 sources) Abnormal gait; Translations: [Unspecified abnormalities of gait and mobility] Onset: 8 Resolved: 8 07-15-2007 Episodic Other screening for suspected conditions (not mental disorders or infectious disease) (12 sources) Raised cardiac enzyme or marker; Translations: [Other specified abnormal findings of blood chemistry] Onset: 4 07-28-2023 Episodic Phlebitis; thrombophlebitis and thromboembolism (11 sources) Acute deep vein thrombosis of lower limb; Translations: [Acute embolism and thrombosis of unspecified deep veins of left lower extremity] Onset: 4 07-29-2023 Episodic Screening and history of mental health and substance abuse codes (1 source) Personal history of nicotine dependence; Translations: [Personal history of nicotine dependence] Onset: 4 Episodic Skin and subcutaneous tissue infections (20 sources) Disorder of nail; Translations: [Cellulitis of unspecified toe] Onset: 8 04-17-2007 Episodic Unclassified (10 sources) Family history of malignant neoplasm of breast; Translations: [Family history of malignant neoplasm of breast] 05-09-2014 Episodic Unclassified (10 sources) Screening for malignant neoplasm of breast ; Translations: [Encounter for other screening for malignant neoplasm of breast] Onset: 6 Resolved: 7 01-22-2016 Results Test Name Value Interpretation Reference Range Facility Absolute neutrophil countOrd ered By: Sheeba Velasco on 07-21-2024 Neutrophils (Bld) [#/Vol] 3.0 10*3/uL 2.0-7.7 [facility] Anion gap in Serum or Plasma Ordered By: Sheeba Velasco on 07-21-2024 Anion gap [Moles/Vol] 11 mmol/L - [facility] BUN/creatinine ratioOrdered By: Sheebalucie Vleasco on 07-21-2024 Urea nitrogen/Creatinine [Mass ratio] 14.2 mg/mg - [facility] Basophil percentageOrdered B y: Sheeba Velasco on 07-21-2024 Basophils/100 WBC (Bld) 0.7 % 0-1 [facility] Bilirubin, totalOrdered By: Sheeba Velasco on 07-21-2024 Bilirubin [Mass/Vol] 0.21 mg/dL 0.00-1.30 [facility] CBC W/Diff, Automatedon Absolute Lymph 1.92 X10 3/uL Normal 0.83-4.51 [facility] Comment on above: Performed By: #### L 100.0500, L500.2500 #### [facility] [address] [place], [address] Absolute Neut 3.0 X10 3/uL Normal 2.0-7.7 [facility] Comment on above: Performed By: #### L 100.0500, L500.2500 #### [facility] [address] [place], [address] Basophils/100 WBC (Bld) 0.7 % Normal 0-1 [facility] Comment on above: Performed By: #### L 100.0500, L500.2500 #### [facility] [address] [place], [address] Eosinophils/100 WBC (Bld) 1.6 % Normal 0-5 [facility] Comment on above: Performed By: #### L 100.0500, L500.2500 #### [facility] [address] [place], [address] Erythrocyte distribution width (RBC) [Ratio] 16.3 % High 11.6-14.6 [facility] Comment on above: Performed By: #### L 100.0500, L500.2500 #### [facility] [address] [place], [address] Hematocrit (Bld) [Volume fraction] 37.0 % Normal 37-47 [facility] Comment on above: Performed By: #### L 100.0500, L500.2500 #### [facility] [address] [place], [address] Hemoglobin (Bld) [Mass/Vol] 10.9 g/dL Low 12.0-15.0 [facility] Comment on above: Performed By: #### L 100.0500, L500.2500 #### [facility] [address] [place], [address] IG% 0.400 Normal 0.0-0.9 [facility] Comment on above: Result Comment: IG% - Immature Granulocytes (promyelocytes, myelocytes and metamyelocytes) > 1% indicates that a LEFT SHIFT is Present. Performed By: #### L 100.0500, L500.2500 #### [facility] [address] [place], [address] Lymphocytes/100 WBC (Bld) 34.1 % Normal 19-41 [facility] Comment on above: Performed By: #### L 100.0500, L500.2500 #### [facility] [address] [place], [address] MCH (RBC) [Entitic mass] 26.0 pg Low 27.0-32.0 [facility] Comment on above: Performed By: #### L 100.0500, L500.2500 #### [facility] [address] [place], [address] MCHC (RBC) [Mass/Vol] 29.5 g/dL Low 32-36 [facility] Comment on above: Performed By: #### L 100.0500, L500.2500 #### [facility] [address] [place], [address] MCV (RBC) [Entitic vol] 88.1 fL Normal 81-99 [facility] Comment on above: Performed By: #### L 100.0500, L500.2500 #### [facility] [address] [place], [address] Monocytes/100 WBC (Bld) 9.4 % Normal 0-10 [facility] Comment on above: Performed By: #### L 100.0500, L500.2500 #### [facility] [address] [place], [address] Neutrophils/100 WBC (Bld) 53.8 % Normal 47-70 [facility] Comment on above: Performed By: #### L 100.0500, L500.2500 #### [facility] [address] [place], [address] Nucleated RBC (Bld) [#/Vol] 0 10*3/uL Normal 0-5 [facility] Comment on above: Performed By: #### L 100.0500, L500.2500 #### [facility] [address] [place], [address] Platelet mean volume (Bld) [Entitic vol] 10.0 fL Normal 6.2-12.0 [facility] Comment on above: Performed By: #### L 100.0500, L500.2500 #### [facility] [address] [place], [address] Platelets (Bld) [#/Vol] 266 10*3/uL Normal 150-450 [facility] Comment on above: Performed By: #### L 100.0500, L500.2500 #### [facility] [address] [place], [address] RBC (Bld) [#/Vol] 4.20 10*6/uL Normal 4.2-5.4 [facility] Comment on above: Performed By: #### L 100.0500, L500.2500 #### [facility] [address] [place], [address] RDW SD 51.4 fl High 35.1-43.9 [facility] Comment on above: Performed By: #### L 100.0500, L500.2500 #### [facility] [address] [place], [address] WBC (Bld) [#/Vol] 5.6 10*3/uL Normal 4.4-11.0 [facility] Comment on above: Performed By: #### L 100.0500, L500.2500 #### [facility] [address] [place], [address] Carbon dioxide, total [Moles /volume] in Central venous bloodOrdered By: Sheeba Velasco on 07-21-2024 CO2 [Moles/Vol] 23.2 mmol/L 21.0-32.0 [facility] Chloride assayOrdered By: Tatiana Velasco on 07-21-2024 Chloride [Moles/Vol] 107 mmol/L 98-108 [facility] Comprehensive Metabolic Prof ilon 07-21-2024 Albumin [Mass/Vol] 3.7 g/dL Normal 3.4-4.8 [facility] Comment on above: Performed By: #### L 100.0500, L500.2500 #### [facility] [address] [place], [address] Albumin/Globulin [Mass ratio] 1.1 {ratio} Normal 0.9-2.4 [facility] Comment on above: Performed By: #### L 100.0500, L500.2500 #### [facility] [address] [place], [address] ALK PHOS 88 U/L Normal 35-104 [facility] Comment on above: Performed By: #### L 100.0500, L500.2500 #### [facility] [address] [place], [address] ALT [Catalytic activity/Vol] 13 U/L Normal <=34 [facility] Comment on above: Performed By: #### L 100.0500, L500.2500 #### [facility] [address] [place], [address] AST [Catalytic activity/Vol] 20 U/L Normal <=31 [facility] Comment on above: Performed By: #### L 100.0500, L500.2500 #### [facility] [address] [place], [address] Bilirubin [Mass/Vol] 0.21 mg/dL Normal 0.00-1.30 [facility] Comment on above: Performed By: #### L 100.0500, L500.2500 #### [facility] [address] [place], [address] BUN/CRE 14.2 RATIO Normal 10-20 [facility] Comment on above: Performed By: #### L 100.0500, L500.2500 #### [facility] [address] [place], [address] Calcium [Mass/Vol] 9.2 mg/dL Normal 7.6-11.0 [facility] Comment on above: Performed By: #### L 100.0500, L500.2500 #### [facility] [address] [place], [address] Chloride [Moles/Vol] 107 mmol/L Normal 98-108 [facility] Comment on above: Performed By: #### L 100.0500, L500.2500 #### [facility] [address] [place], [address] CO2 [Moles/Vol] 23.2 mmol/L Normal 21.0-32.0 [facility] Comment on above: Performed By: #### L 100.0500, L500.2500 #### [facility] [address] [place], [address] Creatinine [Mass/Vol] 0.90 mg/dL Normal 0.70-1.20 [facility] Comment on above: Performed By: #### L 100.0500, L500.2500 #### [facility] [address] [place], [address] GAP 11 Normal 5-15 [facility] Comment on above: Performed By: #### L 100.0500, L500.2500 #### [facility] [address] [place], [address] GFR/1.73 sq M.predicted among non-blacks MDRD (S/P/Bld) [Vol rate/Area] 68 mL/min/{1.73_m2} Normal >60 [facility] Comment on above: Result Comment: mL/m in/1.73m2 CKD-EPI Creatinine Equation (2020) Performed By: #### L 100.0500, L500.2500 #### [facility] [address] [place], [address] Globulin (S) [Mass/Vol] 3.4 g/dL Normal 2.2-4.2 [facility] Comment on above: Performed By: #### L 100.0500, L500.2500 #### [facility] [address] [place], [address] Glucose [Mass/Vol] 117 mg/dL High 70-99 [facility] Comment on above: Performed By: #### L 100.0500, L500.2500 #### [facility] [address] [place], [address] Potassium [Moles/Vol] 3.7 mmol/L Normal 3.3-5.1 [facility] Comment on above: Performed By: #### L 100.0500, L500.2500 #### [facility] [facility] [address] [place], [address] Sodium [Moles/Vol] 141 mmol/L Normal 133-145 [facility] Comment on above: Performed By: #### L 100.0500, L500.2500 #### [facility] [address] [place], [address] T PROT 7.1 g/dL Normal 5.9-8.4 [facility] Comment on above: Performed By: #### L 100.0500, L500.2500 #### [facility] [address] [place], [address] Urea nitrogen [Mass/Vol] 13 mg/dL Normal 4-19 [facility] Comment on above: Performed By: #### L 100.0500, L500.2500 #### [facility] [address] [place], [address] Eosinophil percentageOrdered By: Sheeba Velasco on 07-21-2024 Eosinophils/100 WBC (Bld) 1.6 % 0-5 [facility] Erythrocyte distribution wid th (RBC) [Ratio]Ordered By: Sheeba Velasco on 07-21-2024 Erythrocyte distribution width (RBC) [Entitic vol] 51.4 fL High 35.1-43.9 [facility] Erythrocyte distribution wid th ratioOrdered By: Sheeba Velasco on 07-21-2024 Erythrocyte distribution width (RBC) [Ratio] 16.3 % High 11.6-14.6 [facility] GFR/1.73 sq M.predicted marian g non-blacks MDRD (S/P/Bld) [Vol rate/Area]Ordered By: Sheeba Velasco on 07-21-2024 Estimated GFR (MDRD) Non-Af Amer 68 >60 [facility] Comment on above: mL/min/1.73m2 CKD-EP I Creatinine Equation (2020) Hematocrit Auto (Bld) [Volum e fraction]Ordered By: Sheeba Velasco on 07-21-2024 Hematocrit (Bld) [Volume fraction] 37.0 % 37-47 [facility] Hemoglobin measurementOrdere d By: Sheeba Velasco on 07-21-2024 Hemoglobin (Bld) [Mass/Vol] 10.9 g/dL Low 12.0-15.0 [facility] Immature granulocytes/100 WB C Auto (Bld)Ordered By: Sheeba Velasco on 07-21-2024 Immature granulocytes/100 WBC (Bld) 0.400 % 0.0-0.9 [facility] Comment on above: IG% - Immature Granu locytes (promyelocytes, myelocytes and metamyelocytes) > 1% indicates that a LEFT SHIFT is Present. Laboratory - Chemistry and C hemistry - challengeOrdered By: Sheeba Velasco on 07-21-2024 AST [Catalytic activity/Vol] 20 U/L <32 [facility] Lymphocytes Auto (Unsp spec) [#/Vol]Ordered By: Sheeba Velasco on 07-21-2024 Lymphocytes (Bld) [#/Vol] 1.92 10*3/uL 0.83-4.51 [facility] Lymphocytes/100 WBC Auto (Un sp spec)Ordered By: Sheeba Velasco on 07-21-2024 Lymphocytes/100 WBC (Bld) 34.1 % 19-41 [facility] MCV (mean corpuscular volume ) determinationOrdered By: Sheeba Velasco on 07-21-2024 MCV (RBC) [Entitic vol] 88.1 fL 81-99 [facility] Mean corpuscular hemoglobin (MCH) determinationOrdered By: Sheeba Velasco on 07-21-2024 MCH (RBC) [Entitic mass] 26.0 pg Low 27.0-32.0 [facility] Mean corpuscular hemoglobin concentration (MCHC) determinationOrdered By: Sheeba Velasco on 07-21-2024 MCHC (RBC) [Mass/Vol] 29.5 g/dL Low 32-36 [facility] Mean platelet volume determi nationOrdered By: Sheeba Velasco on 07-21-2024 Platelet mean volume (Bld) [Entitic vol] 10.0 fL 6.2-12.0 [facility] Monocyte percentageOrdered B y: Sheeba Velasco on 07-21-2024 Monocytes/100 WBC (Bld) 9.4 % 0-10 [facility] Neutrophil percentageOrdered By: Sheeba Velasco on 07-21-2024 Neutrophils/100 WBC (Bld) 53.8 % 47-70 [facility] Nucleated red blood cell per centageOrdered By: Sheeba Velasco on 07-21-2024 Nucleated RBC/100 WBC (Bld) [Ratio] 0 % 0-5 [facility] Platelet countOrdered By: Tatiana Velasco on 07-21-2024 Platelets (Bld) [#/Vol] 266 10*3/uL 150-450 [facility] Potassium (Unsp spec) [Mass/ Vol]Ordered By: Sheeba Velasco on 07-21-2024 Potassium [Moles/Vol] 3.7 mmol/L 3.3-5.1 [facility] RBC Auto (Bld) [#/Vol]Ordere d By: Sheeba Velasco on 07-21-2024 RBC (Bld) [#/Vol] 4.20 10*6/uL 4.2-5.4 [facility] Serum creatinine measurement (mass/volume)Ordered By: Sheeba Velasco on 07-21-2024 Creatinine [Mass/Vol] 0.90 mg/dL 0.70-1.20 [facility] Serum globulin measurementOr dered By: Sheeba Velasco on 07-21-2024 Globulin (S) [Mass/Vol] 3.4 g/dL 2.2-4.2 [facility] Serum glucose measurement (m ass/volume)Ordered By: Sheeba Velasco on 07-21-2024 Glucose [Mass/Vol] 117 mg/dL High 70-99 [facility] Serum or plasma alanine cano otransferase (ALT) measurementOrdered By: Sheeba Velasco on 07-21-2024 ALT [Catalytic activity/Vol] 13 U/L <35 [facility] Serum or plasma albumin barbara urement (mass/volume)Ordered By: Sheeba Velasco on 07-21-2024 Albumin [Mass/Vol] 3.7 g/dL 3.4-4.8 [facility] Serum or plasma albumin/glob ulin mass ratioOrdered By: Sheeba Velasco on 07-21-2024 Albumin/Globulin [Mass ratio] 1.1 {ratio} 0.9-2.4 [facility] Serum or plasma alkaline paulino sphatase measurementOrdered By: Sheeba Velasco on 07-21-2024 ALP [Catalytic activity/Vol] 88 U/L 35-104 [facility] Serum or plasma calcium barbara urement (mass/volume)Ordered By: Sheeba Velasco on 07-21-2024 Calcium [Mass/Vol] 9.2 mg/dL 7.6-11.0 [facility] Serum or plasma urea nitroge n measurement (mass/volume)Ordered By: Sheeba Velasco on 07-21-2024 Urea nitrogen [Mass/Vol] 13 mg/dL 4-19 [facility] Sodium levelOrdered By: Darrell Velasco on 07-21-2024 Sodium [Moles/Vol] 141 mmol/L 133-145 [facility] Total proteinOrdered By: Josh Velasco on 07-21-2024 Protein [Mass/Vol] 7.1 g/dL 5.9-8.4 [facility] White blood cell (WBC) count Ordered By: Sheeba Velasco on 07-21-2024 WBC (Bld) [#/Vol] 5.6 10*3/uL 4.4-11.0 [facility] 12 Lead EKGon 06-28-2024 12 Lead EKG [facility] Cardiovascular Services [address] [place] [address] 12 Lead EKG 06/28/24 1011 MR#: [id number] Acct: [id number] Name: KIKO GODFREY Rep #: [id number] : 1950 74 From: Mario Taveras MD Attending Dr: Status: DEP ER Ordering Dr: Gladis Moralez DO Date: 06/28/24 Location: ED Sex: F C Admitted: Test Reason : GENERAL Blood Pressure : */* mmHG Vent. Rate : 54 BPM Atrial Rate : 54 BPM P-R Int : 158 ms QRS Dur : 82 ms QT Int : 406 ms P-R-T Axes : 18 65 23 degrees QTcB Int : 385 ms Sinus bradycardia with occasional Premature ventricular complexes Nonspecific ST and T wave abnormality Abnormal ECG Confirmed by MARIO TAVERAS MD ([id number]), editor book KAIDEN CALIXTO ([id number]) on 06/29/2024 8:15:20 AM Referred By: Confirmed By: MARIO TAVERAS MD 06/29/24 0815 Date Mario Taveras MD CC: Dr. Gladis Moralez DO; Dr. Eric Lozano MD Signed Normal [facility] Absolute neutrophil countOrd ered By: Gladis Moralez on 06-28-2024 Neutrophils (Bld) [#/Vol] 7.1 10*3/uL 2.0-7.7 [facility] Anion gap in Serum or Plasma Ordered By: Gladis Moralez on 06-28-2024 Anion gap [Moles/Vol] 12 mmol/L 5-15 [facility] Automated blood erythrocyte countOrdered By: Gladis Moralez on 06-28-2024 RBC (Bld) [#/Vol] 4.15 10*6/uL Low 4.2-5.4 [facility] Comment on above: Performed By: #### L 100.0500, L500.2500 #### [facility] [address] [place], [place] [address] [place], [address] Automated blood hematocrit ( percentage)Ordered By: Gladis Moralez on 06-28-2024 Hematocrit (Bld) [Volume fraction] 36.0 % Low 37-47 [facility] Comment on above: Performed By: #### L 100.0500, L500.2500 #### [facility] [address] [place], [address] Automated lymphocyte count a s percentage of total leukocytesOrdered By: Gladis Moralez on 06-28-2024 Lymphocytes/100 WBC (Bld) 18.4 % Low 19-41 [facility] Comment on above: Performed By: #### L 100.0500, L500.2500 #### [facility] [address] [place], [address] BUN/creatinine ratioOrdered By: Gladis Moralez on 06-28-2024 Urea nitrogen/Creatinine [Mass ratio] 9.6 mg/mg Low 10-20 [facility] Basic Metabolic Profile (BMP )on 06-28-2024 BUN/CRE 9.6 RATIO Low - [facility] Comment on above: Performed By: #### L 100.0500, L500.2500 #### [facility] [address] [place], [address] Basophil percentageOrdered B y: Gladis Moralez on 06-28-2024 Basophils/100 WBC (Bld) 0.6 % Normal 0-1 [facility] Comment on above: Performed By: #### L 100.0500, L500.2500 #### [facility] [address] [place], [address] CBC W/Diff, Automatedon 06-12 Absolute Lymph 1.85 X10 3/uL Normal 0.83-4.51 [facility] Comment on above: Performed By: #### L 100.0500, L500.2500 #### [facility] [address] [place], [address] Absolute Neut 7.1 X10 3/uL Normal 2.0-7.7 [facility] Comment on above: Performed By: #### L 100.0500, L500.2500 #### [facility] [address] [place], [address] IG% 0.800 Normal 0.0-0.9 [facility] Comment on above: Result Comment: IG% - Immature Granulocytes (promyelocytes, myelocytes and metamyelocytes) > 1% indicates that a LEFT SHIFT is Present. Performed By: #### L 100.0500, L500.2500 #### [facility] [address] [place], [address] Nucleated RBC (Bld) [#/Vol] 0 10*3/uL Normal 0-5 [facility] Comment on above: Performed By: #### L 100.0500, L500.2500 #### [facility] [address] [facility] [place], [address] RDW SD 50.1 fl High 35.1-43.9 [facility] Comment on above: Performed By: #### L 100.0500, L500.2500 #### [facility] [address] [place], [address] Carbon dioxide, total [Moles /volume] in Central venous bloodOrdered By: Gladis Moralez on 06-28-2024 CO2 [Moles/Vol] 22.8 mmol/L 21.0-32.0 [facility] Chest PA and Lateralon 06-28 Chest PA and Lateral [facility] Imaging Services [address] [place] [address] Chest PA and Lateral MR#: [id number] Acct: [id number] Name: KIKO GODFREY Rep #: [id number] : 1950 F 74 From: Mira Albert MD PCP: Dr. Eric Lozano MD Status: PRE ER Study: Chest PA and Lateral Date of Exam: 06/28/24 Exam# [id number] Ordering Dr: Gladis Moralez DO PROCEDURE: CHEST PA AND LATERAL (RADCXR), 06/28/2024 REASON FOR EXAM: COUGH TECHNIQUE: PA and lateral views of the chest were obtained. COMPARISON: 06/22/2024 FINDINGS: Heart: Unremarkable. Mediastinum: Atherosclerosis. Grossly Lungs/pleura: No focal consolidation. Similar mild chronic interstitial prominence, possibly technical and related to chest wall attenuation or perhaps related to mild emphysema. No effusion or visible pneumothorax. Known small nodule better seen previously. Bones: Suspect demineralization. Multilevel spondylosis.. Degenerative changes of the right shoulder. Lines and support devices: None. RAD/Chest PA and Lateral IMPRESSION: 1. Suspect mild emphysema without convincing or visible acute cardiopulmonary findings. If unexplained symptoms persist, consider CT. 2. Additional description as above. Reading Location: [id number] CC: Dr. Gladis Moralez DO; Dr. Eric Lozano MD Mid Level Developer: Signed Normal [facility] Chloride assayOrdered By: Ghanshyam Moralez on 06-28-2024 Chloride [Moles/Vol] 108 mmol/L 98-108 [facility] Emergency Department Summary on 06-28-2024 Emergency Department Summary [facility] Medical Records Department [address] [place] [id number] Emergency Department Summary 06/28/24 MR#: [id number] Acct: [id number] Name: KIKO GODFREY Rep #: [id number] : 1950 74 From: Gladis Moralez DO PCP: Dr. Eric Lozano MD Status:REG ER Location: ED HPI History of Present Illness Chief Complaint: Cold Sx Informant: patient Narrative Narrative: Patient 74-year-old female with history of COPD, proximal SVT and PE (after a leg injury) as well as arthritis on methotrexate and hydroxychloroquine presenting for continued cough and not feeling better. Patient states she was diagnosed with influenza A 1 week ago. She had a chest x-ray that time which was negative for pneumonia. She was prescribed promethazine and prednisone as well as cefdinir (has 1 day left). She notes 3 weeks ago she was at urgent care and diagnosed with a viral bronchitis and a week later was seen again for some type of sinus infection and placed on a course of Augmentin. She feels that yesterday her cough was little better and her sputum was clear but then today it turned back to green. She still feels short of breath. She is not sure if she is worsening or just not getting better. She is unsure if she has had fever. She came in for further evaluation. She denies any swelling of her legs. Denies any chest pain. States that she does have chest wall pain from all the coughing. Has an inhaler at home she does not find particularly helpful. Does not wear home O2. Continues to have nasal congestion. No other complaints or concerns reported at this time. [facility] Medical History Anxiety and depression Schizophrenia Rheumatoid arthritis Former smoker Pulmonary embolism Transient ischemic attack Paroxysmal supraventricular tachycardia Iron deficiency anemia Obesity (BMI 30-39.9) GERD (gastroesophageal reflux disease) COPD (chronic obstructive pulmonary disease) Home Medications ???Medication ???Instructions ???Recorded ???Last Taken ???Type hydroxychloroquine 200 mg tablet 200 mg PO BIDCM 09/18/13 09/17/13 20:00 History pantoprazole 40 mg tablet,delayed 40 mg PO DAILY 02/26/19 07/28/23 History release famotidine 20 mg tablet 20 mg PO BID 11/08/21 07/28/23 His tory blood pressure monitor #1 ea 11/08/22 Unknown Rx leucovorin calcium 15 mg tablet 15 mg PO QWEEK counteract the 10/1307/24/23 History methotrexate prednisone 2.5 mg tablet 2.5 mg PO DAILY 11/08/22 07/28/23 History Held on 04/01/24. Instructions: Restart once your prednisone taper is completed methotrexate sodium 25 mg/mL 18.75 mg subcut QWEEK arthritis 07/23/23 History injection solution sulfasalazine 500 mg 1,000 mg PO BID 07/28/23 07/28/23 History tablet,delayed release tramadol 50 mg tablet 50 - 100 mg PO Q6H PRN PRN pain Unknown History mecobalamin (vitamin B12) 5,000 3,000 mcg PO QDAY 01/06/24 Unknown History mcg chewable tablet potassium citrate 10 mEq (1,080 10 meq PO BID 03/31/24 Unknown His tory mg) tablet,extended release prednisone 10 mg tablet 10 mg PO DAILY #30 tabs 04/01/24 U nknown Rx metoprolol tartrate 50 mg tablet See Rx Instructions .Route 5 Unknown Rx .COMPLEX #180 tabs codeine 10 mg-guaifenesin 100 mg/5 5 ml PO Q6H PRN cough #118 mL Unknown Rx mL oral liquid (Guaifenesin AC) Allergy/AdvReac Type Severity Reaction Status Date / Time doxycycline AdvReac PT UNSURE Verified 06/28/24 09:08 OF REACTION Family History Mother Breast cancer Surgical History History of radiofrequency ablation procedure for cardiac arrhythmia (03/2003) H/O tubal ligation History of knee surgery History of breast lump removal History of foot surgery Social History household members: none Smoking Status: Former smoker how long ago did patient quit smoking: Quit 15 yrs prior, smoked 2 ppd since 22 yrs old until quit. alcohol intake: never substance use type: does not use ROS ROS ED Constitutional Constitutional ED: Denies chills or fever(s) ENT ENT ED: Reports rhinorrhea and other Details: congestion ; Denies sore throat Cardiovascular Cardiovascular: Denies chest pain Respiratory/Chest Respiratory/Chest: Reports cough, dyspnea and sputum Gastrointestinal Gastrointestinal: Reports nausea; Denies abdominal pain or vomiting Musculoskeletal Musculoskeletal: Denies arthralgias or myalgias Neurologic Neurologic: Reports weakness Hematologic/Lymphatic Hematologic/Lymphatic: Denies easy bleeding or easy bruising EXAM Physical Exam (more content not included)... Normal [facility] Eosinophil percentageOrdered By: Gladis Moralez on 06-28-2024 Eosinophils/100 WBC (Bld) 0.7 % Normal 0-5 [facility] Comment on above: Performed By: #### L 100.0500, L500.2500 #### [facility] [address] [place], [address] Erythrocyte distribution wid th ratioOrdered By: Gladis Moralez on 06-28-2024 Erythrocyte distribution width (RBC) [Ratio] 15.9 % High 11.6-14.6 [facility] Comment on above: Performed By: #### L 100.0500, L500.2500 #### [facility] [address] [place], [address] Erythrocyte distribution wid th standard deviationOrdered By: Gladis Moralez on 06-28-2024 Erythrocyte distribution width (RBC) [Entitic vol] 50.1 fL High 35.1-43.9 [facility] Estimation of creatinine jennifer aranceOrdered By: Gladis Moralez on 06-28-2024 Estimated Creatinine Clearance Calc 75.76 ml/min 50-250 [facility] GFR/1.73 sq M.predicted marian g non-blacks MDRD (S/P/Bld) [Vol rate/Area]Ordered By: Gladis Moralez on 06-28-2024 Estimated GFR (MDRD) Non-Af Amer 77 >60 [facility] Comment on above: mL/min/1.73m2 CKD-EP I Creatinine Equation (2020) Hemoglobin measurementOrdere d By: Gladis Moralez on 06-28-2024 Hemoglobin (Bld) [Mass/Vol] 10.8 g/dL Low 12.0-15.0 [facility] Comment on above: Performed By: #### L 100.0500, L500.2500 #### [facility] [address] [place], [address] Immature granulocytes/100 WB C Auto (Bld)Ordered By: Gladis Moralez on 06-28-2024 Immature granulocytes/100 WBC (Bld) 0.800 % 0.0-0.9 [facility] Comment on above: IG% - Immature Granu locytes (promyelocytes, myelocytes and metamyelocytes) > 1% indicates that a LEFT SHIFT is Present. Lymphocytes Auto (Unsp spec) [#/Vol]Ordered By: Gladis Moralez on 06-28-2024 Lymphocytes (Bld) [#/Vol] 1.85 10*3/uL 0.83-4.51 [facility] MCV (mean corpuscular volume ) determinationOrdered By: Gladis Moralez on 06-28-2024 MCV (RBC) [Entitic vol] 86.7 fL Normal 81-99 [facility] Comment on above: Performed By: #### L 100.0500, L500.2500 #### [facility] [address] [place], [address] Mean corpuscular hemoglobin (MCH) determinationOrdered By: Gladis Moralez on 06-28-2024 MCH (RBC) [Entitic mass] 26.0 pg Low 27.0-32.0 [facility] Comment on above: Performed By: #### L 100.0500, L500.2500 #### [facility] [address] [place], [address] Mean corpuscular hemoglobin concentration (MCHC) determinationOrdered By: Gladis Moralez on 06-28-2024 MCHC (RBC) [Mass/Vol] 30.0 g/dL Low 32-36 [facility] Comment on above: Performed By: #### L 100.0500, L500.2500 #### [facility] [address] [place], [address] Mean platelet volume determi nationOrdered By: Gladis Moralez on 06-28-2024 Platelet mean volume (Bld) [Entitic vol] 10.1 fL Normal 6.2-12.0 [facility] Comment on above: Performed By: #### L 100.0500, L500.2500 #### [facility] [address] [place], [address] Monocyte percentageOrdered B y: Gladis Moralez on 06-28-2024 Monocytes/100 WBC (Bld) 9.0 % Normal 0-10 [facility] Comment on above: Performed By: #### L 100.0500, L500.2500 #### [facility] [address] [place], [address] Neutrophil percentageOrdered By: Gladis Moralez on 06-28-2024 Neutrophils/100 WBC (Bld) 70.5 % High 47-70 [facility] Comment on above: Performed By: #### L 100.0500, L500.2500 #### [facility] [address] [place], [address] Nucleated red blood cell per centageOrdered By: Gladis Moralez on 06-28-2024 Nucleated RBC/100 WBC (Bld) [Ratio] 0 % 0-5 [facility] Platelet countOrdered By: Ghanshyam Moralez on 06-28-2024 Platelets (Bld) [#/Vol] 241 10*3/uL Normal 150-450 [facility] Comment on above: Performed By: #### L 100.0500, L500.2500 #### [facility] [address] [place], [address] Potassium (Unsp spec) [Mass/ Vol]Ordered By: Gladis Moralez on 06-28-2024 Potassium [Moles/Vol] 3.2 mmol/L Low 3.3-5.1 [facility] Serum creatinine measurement (mass/volume)Ordered By: Gladis Moralez on 06-28-2024 Creatinine [Mass/Vol] 0.81 mg/dL 0.70-1.20 [facility] Serum glucose measurement (m ass/volume)Ordered By: Gladis Moralez on 06-28-2024 Glucose [Mass/Vol] 98 mg/dL 70-99 [facility] Serum or plasma calcium barbara urement (mass/volume)Ordered By: Gladis Moralez on 06-28-2024 Calcium [Mass/Vol] 8.6 mg/dL 7.6-11.0 [facility] Serum or plasma urea nitroge n measurement (mass/volume)Ordered By: Gladis Moralez on 06-28-2024 Urea nitrogen [Mass/Vol] 8 mg/dL Normal 4-19 [facility] Comment on above: Performed By: #### L 100.0500, L500.2500 #### [facility] [address] [place], [address] Sodium levelOrdered By: Camilo Moralez on 06-28-2024 Sodium [Moles/Vol] 143 mmol/L 133-145 [facility] White blood cell (WBC) count Ordered By: Gladis Moralez on 06-28-2024 WBC (Bld) [#/Vol] 10.1 10*3/uL Normal 4.4-11.0 [facility] Comment on above: Performed By: #### L 100.0500, L500.2500 #### [facility] [address] [facility] [place], [address] Chest PA and Lateralon 06-22 Chest PA and Lateral [facility] Imaging Services [address] [place], [place] [address] Chest PA and Lateral MR#: [id number] Acct: [id number] Name: KIKO GODFREY Rep #: [id number] : 1950 F 74 From: Mira Antonio MD PCP: Dr. Eric Lozano MD Status: DEP AMB Study: Chest PA and Lateral Date of Exam: 06/22/24 Exam# [id number] Ordering Dr: Eric Lozano MD EXAM: XR Chest, 2 Views CLINICAL INDICATION: ONGOING COUGH TECHNIQUE: Frontal and lateral views of the chest. COMPARISON: No relevant prior studies available. FINDINGS: LUNGS AND PLEURAL SPACES: Hyperlucent lungs. Flattening of the diaphragm. No consolidation. No pneumothorax. HEART: Unremarkable. No cardiomegaly. MEDIASTINUM: Unremarkable. Normal mediastinal contour. BONES/JOINTS: Unremarkable. No acute fracture. RAD/Chest PA and Lateral IMPRESSION: Suggestion of COPD. Reading Location: [facility] CC: Dr. Eric Lozano MD Mid Level Developer: Signed Normal [facility] CNOVon 06-06-2024 CNOV Office Visit (UCWSTR ) -------- KIKO GODFREY ([id number]) 1950 F Date Time Provider Department 06/06/24 9:15 AM [facility]YNN [facility] During your visit today, we recorded the following information about you: Temperature Pulse Respiration Blood pressure 98 degrees 74/minute 20/minute 154/78 Weight 95.8 kg Lynn Braxton, CVICU NURSE.RECTIFICATION PRINTER 06/06/2024 9:19 AM Signed This note was created using [employer]. Subjective Kiko Godfrey is a 74 year old female. HPI Patient presents today for 2 weeks of sinus pain pressure, chest congestion, runny nose and rhinorrhea. Denies any recent fevers. She was seen here about 10 days ago and diagnosed with viral illness with a negative chest x-ray and has been using Tessalon Perles and other [id number] treatments with no relief of symptoms. She notes worsening of sinus pain and pressure. As above Review of Systems Objective BP 154/78 Pulse 74 Temp 36.7 ?C (98 ?F) Resp 20 Wt 95.8 kg (211 lb 3.2 oz) SpO2 98% Physical Exam Vitals and nursing note reviewed. Constitutional: General: She is not in acute distress. Appearance: Normal appearance. She is not ill-appearing. HENT: Head: Normocephalic. Mouth/Throat: Mouth: Mucous membranes are moist. Pharynx: No oropharyngeal exudate or posterior oropharyngeal erythema. Eyes: Conjunctiva/sclera: Conjunctivae normal. Cardiovascular: Rate and Rhythm: Normal rate and regular rhythm. Pulmonary: Effort: Pulmonary effort is normal. Breath sounds: Normal breath sounds. Comments: Frequent cough noted Musculoskeletal: General: Normal range of motion. Cervical back: Normal range of motion. Skin: General: Skin is warm and dry. Neurological: General: No focal deficit present. Mental Status: She is alert. Psychiatric: Mood and Affect: Mood normal. Behavior: Behavior normal. Assessment and Plan ASSESSMENT/PLAN: 1. Bacterial sinusitis - ICD9: 473.9, 041.9, ICD10: J32.9, B96.89 As patient previously had a negative chest x-ray and lung sounds are clear today with no ongoing fever my suspicion for pneumonia is low. Patient's main complaint seems to be pain and pressure in the sinuses over the last 2 weeks and as such she was started on Augmentin. Her allergy list does show an intolerance to Augmentin but she states that she has taken in the past with no difficulties. She will follow-up with PCP to ensure resolution of symptoms. - AMOXICILLIN 875 MG-POTASSIUM CLAVULANATE 125 MG TABLET Lynn Braxton APRN.RECTIFICATION PRINTER Allergies As of Date: 06/06/2024 Noted Allergy Reaction AMOXICILLIN-POT CLAVULANATE 04/04/2016 8 - GI Upset DOXYCYCLINE 05/18/2021 16 - Unknown Comments: Makes her very ill when she takes it Date Reviewed: 06/06/2024 Reviewed by: Homa Bhat MA - Fully Assessed Reason for Visit: Sinus Problem [99] Cmt: Chest congestion, cough, green mucus, SMALLS x 2 weeks Primary Visit Diagnosis:Bacterial sinusitis [J32.9, B96.89] Order(s):amoxicillin-cla vulanate potassium (AUGMENTIN) 875-125 mg per tabletTake 1 tablet by mouth two times a day for 7 days.Disp: 14 tabletRfl: 0 Prescriptions as of 06/06/2024 - amoxicillin-clavulanate potassium (AUGMENTIN) 875-125 mg per tablet Take 1 tablet by mouth two times a day for 7 days. - azithromycin (ZITHROMAX Z-FERDINAND) 250 mg tablet Take 2 tablets (500 mg) by mouth on day 1, then take 1 tablet (250 mg) by mouth for 4 days. - albuterol HFA (PROVENTIL HFA, VENTOLIN HFA) 90 mcg/actuation inhaler Inhale 2 Puffs as instructed every 4 hours as needed for wheezing/shortness of breath. - ELIQUIS 5 mg tab(s) - albuterol HFA (PROVENTIL HFA, VENTOLIN HFA) 90 mcg/actuation inhaler Inhale 2 Puffs as instructed every 4 hours as needed for wheezing/shortness of breath. - famotidine (PEPCID) 20 mg tablet - potassium chloride in water 10 mEq/100 mL Inject 10 mEq intravenously one time only. - pantoprazole sodium (PANTOPRAZOLE ORAL) Take by mouth. - folic acid 1 mg tablet Take 1 mg by mouth two times a day. - methotrexate, PF, 25 mg/mL soln Inject 1/2 milliliter(s) Subcutaneous once a week, single use vials, use and discard - sulfaSALAzine EC (AZULFIDINE EN) 500 mg EC tablet - albuterol HFA (PROVENTIL HFA, VENTOLIN HFA) 90 mcg/actuation inhaler Inhale 2 Puffs as instructed every 6 hours as needed for wheezing/shortness of breath. - fexofenadine hcl(PILLO 180 MG TAB) Take one(1) tablet daily. - BUDESONIDE 32 MCG/ACTUATION NASAL SPRAY once spray each nostril once daily prn - LOPRESSOR 100 MG TAB Take one(1) tablet twice daily. - PLAQUENIL 200 MG TAB Take one(1) tablet twice daily. Problem List As Of Date 06/06/2024 Noted Resolved RHEUMATOID ARTHRITIS [M06.9] 07/22/2006 CALCANEAL SPUR [M77.30] 07/22/2006 ONYCHIA OF TOE [L03.039] 04/17/2007 OTHER HAMMER TOE [M20.40] 05/26/2007 TOBACCO USE DISORDER [F17.200] 06/22/2007 CHRONIC (more content not included)... Normal [facility] CNOVon 05-26-2024 CNOV Office Visit (WSTR ) -------- KIKO GODFREY ([id number]) 1950 F Date Time Provider Department 05/26/24 10:30 AM [facility] During your visit today, we recorded the following information about you: Temperature Pulse Respiration Blood pressure 99.7 degrees 79/minute 20/minute 140/68 Weight 95.4 kg Mira Valencia PA-C 05/26/2024 11:42 AM Signed This note was created using [employer]UR[employer]. Subjective Kiko Godfrey is a 74 year old female. Patient is a 74-year-old female who complains of congestion and cough that she has been experiencing for the past 2 days. Patient reports no sinus pressure, ear pain or sore throat. Patient also denies fever, chills or myalgia. Patient has no history of asthma or COPD and does not smoke. Patient states that she did receive the influenza vaccine. Review of Systems HENT: Positive for congestion. Respiratory: Positive for cough. All other systems reviewed and are negative. Objective BP 140/68 Pulse 79 Temp 37.6 ?C (99.7 ?F) Resp 20 Wt 95.4 kg (210 lb 5.1 oz) SpO2 98% Physical Exam Vitals and nursing note reviewed. Constitutional: Appearance: Normal appearance. She is normal weight. HENT: Head: Normocephalic and atraumatic. Right Ear: Tympanic membrane, ear canal and external ear normal. Left Ear: Tympanic membrane, ear canal and external ear normal. Nose: Nose normal. Mouth/Throat: Mouth: Mucous membranes are moist. Pharynx: Oropharynx is clear. Eyes: Extraocular Movements: Extraocular movements intact. Conjunctiva/sclera: Conjunctivae normal. Pupils: Pupils are equal, round, and reactive to light. Cardiovascular: Rate and Rhythm: Normal rate and regular rhythm. Pulses: Normal pulses. Heart sounds: Normal heart sounds. Pulmonary: Effort: Pulmonary effort is normal. Breath sounds: Normal breath sounds. Musculoskeletal: Cervical back: Normal range of motion and neck supple. Skin: General: Skin is warm and dry. Capillary Refill: Capillary refill takes less than 2 seconds. Neurological: General: No focal deficit present. Mental Status: She is alert and oriented to person, place, and time. Psychiatric: Mood and Affect: Mood normal. Behavior: Behavior normal. Thought Content: Thought content normal. Judgment: Judgment normal. Assessment and Plan Physical exam findings as noted above. Chest x-ray is negative for acute findings as reported by the radiologist. Patient was provided with prescriptions for prednisone 20 mg and Tessalon 100 mg and supportive care instructions were discussed. Patient verbalizes excellent understanding of same. CLINICAL IMPRESSION: Viral Bronchitis ASSESSMENT/PLAN: 1. Acute cough - ICD9: 786.2, ICD10: R05.1 (primary diagnosis) - XR CHEST 2V FRONTAL/LAT 2. Viral bronchitis - ICD9: 466.0, ICD10: J20.8 - PREDNISONE 20 MG TABLET - BENZONATATE 100 MG CAPSULE Mira ANAY Valencia Allergies As of Date: 05/26/2024 Noted Allergy Reaction AMOXICILLIN-POT CLAVULANATE 04/04/2016 8 - GI Upset DOXYCYCLINE 05/18/2021 16 - Unknown Comments: Makes her very ill when she takes it Date Reviewed: 05/26/2024 Reviewed by: Homa Bhat MA - Fully Assessed Reason for Visit: Chest Congestion [236] Cmt: SMALLS, cough, lungs feel like they are on fire x 2 days Primary Visit Diagnosis:Acute cough [R05.1] Other Visit Diagnosis:Viral bronchitis [J20.8] Order(s):XR CHEST 2V FRONTAL/LAT [[id number]] Order #: [id number] #:[id number] predniSONE (DELTASONE) 20 mg tabletTake 1 tablet by mouth two times a day for 5 days.Disp: 10 tabletRfl: 0 benzonatate (TESSALON PERLE) 100 mg capsuleTake 1 capsule by mouth three times a day as needed for cough for up to 7 days.Disp: 21 capsuleRfl: 0 Prescriptions as of 05/26/2024 - predniSONE (DELTASONE) 20 mg tablet Take 1 tablet by mouth two times a day for 5 days. - benzonatate (TESSALON PERLE) 100 mg capsule Take 1 capsule by mouth three times a day as needed for cough for up to 7 days. - azithromycin (ZITHROMAX Z-FERDINAND) 250 mg tablet Take 2 tablets (500 mg) by mouth on day 1, then take 1 tablet (250 mg) by mouth for 4 days. - albuterol HFA (PROVENTIL HFA, VENTOLIN HFA) 90 mcg/actuation inhaler Inhale 2 Puffs as instructed every 4 hours as needed for wheezing/shortness of breath. - ELIQUIS 5 mg tab(s) - albuterol HFA (PROVENTIL HFA, VENTOLIN HFA) 90 mcg/actuation inhaler Inhale 2 Puffs as instructed every 4 hours as needed for wheezing/shortness of breath. - famotidine (PEPCID) 20 mg tablet - potassium chloride in water 10 mEq/100 mL Inject 10 mEq intravenously one time only. - pantoprazole sodium (PANTOPRAZOLE ORAL) Take by mouth. - folic acid 1 mg tablet Take 1 mg by mouth two times a day. - methotrexate, PF, 25 mg/mL soln Inject 1/2 milliliter(s) Subcutaneous once a week, single use vials, use and (more content not included)... Normal [facility] XR CHEST 2V FRONTAL/LATon XR CHEST 2V FRONTAL/LAT * * *Final Report* * * DATE OF EXAM: May 26 2024 10:25AM WOX 5291 - XR CHEST 2V FRONTAL/LAT / PROCEDURE REASON: Acute cough * * * * Physician Interpretation * * * * EXAMINATION: CHEST RADIOGRAPH (2 VIEW FRONTAL and LATERAL) CLINICAL HISTORY: Acute cough MQ: XC2_6 EXAM DATE/TIME: 05/26/2024 10:25 AM COMPARISON: Chest x-ray dated 10/13/2023 RESULT: Lines, tubes, and devices: None. Lungs and pleura: No consolidation. No lung mass. No pleural effusion. No pneumothorax. Cardiomediastinal silhouette: Stable cardiomediastinal silhouette. Bones and soft tissues: Degenerative changes are present within the thoracic spine. IMPRESSION: No acute radiographic abnormality. Mid Level Developer: LISA Transcribe Date/Time: May 26 2024 10:32A Dictated by : THEO MAN MD This examination was interpreted and the report reviewed and electronically signed by: THEO MAN MD on May 26 2024 10:32AM EST [id number] Normal [facility] XR Chest PA and Lateralon IMPRESSION: No acute radiographic abnormality. Mid Level Developer: LISA Transcribe Date/Time: May 26 2024 10:32A Dictated by : THEO MAN MD This examination was interpreted and the report reviewed and electronically signed by: THEO MAN MD on May 26 2024 10:32AM EST DIVISION OF RADIOLOGY * * *Final Report* * * DATE OF EXAM: May 26 2024 10:25AM WOX 5291 - XR CHEST 2V FRONTAL/LAT / PROCEDURE REASON: Acute cough * * * * Physician Interpretation * * * * EXAMINATION: CHEST RADIOGRAPH (2 VIEW FRONTAL & LATERAL) CLINICAL HISTORY: Acute cough MQ: XC2_6 EXAM DATE/TIME: 05/26/2024 10:25 AM COMPARISON: Chest x-ray dated 10/13/2023 RESULT: Lines, tubes, and devices: None. Lungs and pleura: No consolidation. No lung mass. No pleural effusion. No pneumothorax. Cardiomediastinal silhouette: Stable cardiomediastinal silhouette. Bones and soft tissues: Degenerative changes are present within the thoracic spine. DIVISION OF RADIOLOGY Provider, [facility] - 05/26/2024 * * *Final Report* * * DATE OF EXAM: May 26 2024 10:25AM WOX 5291 - XR CHEST 2V FRONTAL/LAT / PROCEDURE REASON: Acute cough * * * * Physician Interpretation * * * * EXAMINATION: CHEST RADIOGRAPH (2 VIEW FRONTAL & LATERAL) CLINICAL HISTORY: Acute cough MQ: XC2_6 EXAM DATE/TIME: 05/26/2024 10:25 AM COMPARISON: Chest x-ray dated 10/13/2023 RESULT: Lines, tubes, and devices: None. Lungs and pleura: No consolidation. No lung mass. No pleural effusion. No pneumothorax. Cardiomediastinal silhouette: Stable cardiomediastinal silhouette. Bones and soft tissues: Degenerative changes are present within the thoracic spine. IMPRESSION IMPRESSION: No acute radiographic abnormality. Mid Level Developer: [facility] Transcribe Date/Time: May 26 2024 10:32A Dictated by : THEO MAN MD This examination was interpreted and the report reviewed and electronically signed by: THEO MAN MD on May 26 2024 10:32AM EST [facility] Radiology Study observation (narrative) [facility] XR Chest PA and LateralOrder ed By: [facility] Provider on 05-26-2024 [facility] Absolute neutrophil countOrd ered By: Sheeba Velasco on 04-28-2024 Neutrophils (Bld) [#/Vol] 2.1 10*3/uL 2.0-7.7 [facility] Albumin to globulin ratioOrd ered By: Sheeba Velasco on 04-28-2024 Albumin/Globulin [Mass ratio] 0.8 {ratio} Low 0.9-2.4 [facility] Basophil percentageOrdered B y: Sheeba Velasco on 04-28-2024 Basophils/100 WBC (Bld) 0.7 % 0-1 [facility] Bilirubin, totalOrdered By: Sheeba Velasco on 04-28-2024 Bilirubin [Mass/Vol] 0.40 mg/dL 0.20-1.00 [facility] Comment on above: For patients on eltr ombopag therapy, use of Dimension [place] TBIL is not recommended. Blood urea nitrogen (BUN)/cr eatinine ratioOrdered By: Sheeba Velasco on 04-28-2024 Urea nitrogen/Creatinine [Mass ratio] 9.6 mg/mg Low 10-20 [facility] CBC W/Diff, Automatedon 04-14 Absolute Lymph 1.38 X10 3/uL Normal 0.83-4.51 [facility] Comment on above: Performed By: #### L 500.4050, L100.0100 #### [facility] [address] [place], [address] Absolute Neut 2.1 X10 3/uL Normal 2.0-7.7 [facility] Comment on above: Performed By: #### L 500.4050, L100.0100 #### [facility] [address] [place], [address] Basophils/100 WBC (Bld) 0.7 % Normal 0-1 [facility] Comment on above: Performed By: #### L 500.4050, L100.0100 #### [facility] [address] [place], [address] Eosinophils/100 WBC (Bld) 1.7 % Normal 0-5 [facility] Comment on above: Performed By: #### L 500.4050, L100.0100 #### [facility] [address] [place], [address] Erythrocyte distribution width (RBC) [Ratio] 15.8 % High 11.6-14.6 [facility] Comment on above: Performed By: #### L 500.4050, L100.0100 #### [facility] [address] [place], [address] Hematocrit (Bld) [Volume fraction] 37.4 % Normal 37-47 [facility] Comment on above: Performed By: #### L 500.4050, L100.0100 #### [facility] [address] [place], [address] Hemoglobin (Bld) [Mass/Vol] 11.2 g/dL Low 12.0-15.0 [facility] Comment on above: Performed By: #### L 500.4050, L100.0100 #### [facility] [address] [place], [address] IG% 0.200 Normal 0.0-0.9 [facility] Comment on above: Result Comment: IG% - Immature Granulocytes (promyelocytes, myelocytes and metamyelocytes) > 1% indicates that a LEFT SHIFT is Present. Performed By: #### L 500.4050, L100.0100 #### [facility] [address] [place], [address] Lymphocytes/100 WBC (Bld) 33.3 % Normal 19-41 [facility] Comment on above: Performed By: #### L 500.4050, L100.0100 #### [facility] [address] [place], [address] MCH (RBC) [Entitic mass] 26.5 pg Low 27.0-32.0 [facility] Comment on above: Performed By: #### L 500.4050, L100.0100 #### [facility] [address] [place], [address] MCHC (RBC) [Mass/Vol] 29.9 g/dL Low 32-36 [facility] Comment on above: Performed By: #### L 500.4050, L100.0100 #### [facility] [address] [place], [address] MCV (RBC) [Entitic vol] 88.4 fL Normal 81-99 [facility] Comment on above: Performed By: #### L 500.4050, L100.0100 #### [facility] [address] [place], [address] Monocytes/100 WBC (Bld) 13.5 % High 0-10 [facility] Comment on above: Performed By: #### L 500.4050, L100.0100 #### [facility] [address] [place], [address] Neutrophils/100 WBC (Bld) 50.6 % Normal 47-70 [facility] Comment on above: Performed By: #### L 500.4050, L100.0100 #### [facility] [address] [place], [address] Nucleated RBC (Bld) [#/Vol] 0 10*3/uL Normal 0-5 [facility] Comment on above: Performed By: #### L 500.4050, L100.0100 #### [facility] [address] [place], [address] Platelet mean volume (Bld) [Entitic vol] 10.3 fL Normal 6.2-12.0 [facility] Comment on above: Performed By: #### L 500.4050, L100.0100 #### [facility] [address] [place], [address] Platelets (Bld) [#/Vol] 219 10*3/uL Normal 150-450 [facility] Comment on above: Performed By: #### L 500.4050, L100.0100 #### [facility] [address] [place], [address] RBC (Bld) [#/Vol] 4.23 10*6/uL Normal 4.2-5.4 [facility] Comment on above: Performed By: #### L 500.4050, L100.0100 #### [facility] [address] [place], [address] RDW SD 50.3 fl High 35.1-43.9 [facility] Comment on above: Performed By: #### L 500.4050, L100.0100 #### [facility] [address] [place], [address] WBC (Bld) [#/Vol] 4.2 10*3/uL Low 4.4-11.0 [facility] Comment on above: Performed By: #### L 500.4050, L100.0100 #### [facility] [address] [place], [address] Carbon dioxide measurementOr dered By: Sheeba Velasco on 04-28-2024 CO2 [Moles/Vol] 26.0 mmol/L 21.0-32.0 [facility] Chloride measurementOrdered By: Sheeba Velasco on 04-28-2024 Chloride [Moles/Vol] 110 mmol/L High 98-107 [facility] Comprehensive Metabolic Prof ilon 04-28-2024 Albumin [Mass/Vol] 3.2 g/dL Normal 3.2-5.0 [facility] Comment on above: Performed By: #### L 500.4050, L100.0100 #### [facility] [address] [place], [address] Albumin/Globulin [Mass ratio] 0.8 {ratio} Low 0.9-2.4 [facility] Comment on above: Performed By: #### L 500.4050, L100.0100 #### [facility] [address] [place], [address] ALK P 81 U/L Normal 45-117 [facility] Comment on above: Performed By: #### L 500.4050, L100.0100 #### [facility] [address] [place], [address] ALT [Catalytic activity/Vol] 14 U/L Normal 13-56 [facility] Comment on above: Performed By: #### L 500.4050, L100.0100 #### [facility] [address] [place], [address] AST [Catalytic activity/Vol] 19 U/L Normal 15-37 [facility] Comment on above: Performed By: #### L 500.4050, L100.0100 #### [facility] [address] [place], [address] Bilirubin [Mass/Vol] 0.40 mg/dL Normal 0.20-1.00 [facility] Comment on above: Result Comment: For patients on eltrombopag therapy, use of Dimension [place] TBIL is not recommended. Performed By: #### L 500.4050, L100.0100 #### [facility] [address] [place], [address] BUN/CRE 9.6 RATIO Low 10-20 [facility] Comment on above: Performed By: #### L 500.4050, L100.0100 #### [facility] [address] [place], [address] CA,Total 9.9 mg/dL Normal 8.5-10.1 [facility] Comment on above: Performed By: #### L 500.4050, L100.0100 #### [facility] [address] [place], [address] Chloride [Moles/Vol] 110 mmol/L High 98-107 [facility] Comment on above: Performed By: #### L 500.4050, L100.0100 #### [facility] [address] [place], [address] CO2 [Moles/Vol] 26.0 mmol/L Normal 21.0-32.0 [facility] Comment on above: Performed By: #### L 500.4050, L100.0100 #### [facility] [address] [place], [address] Creatinine [Mass/Vol] 0.93 mg/dL Normal 0.55-1.02 [facility] Comment on above: Result Comment: The validity of the calculated GFR GFRAA in patients over 70 years has not been determined. Clinical correlation is essential. Performed By: #### L 500.4050, L100.0100 #### [facility] [address] [place], [address] EST GFR - AA 76 mL/min Normal >60 [facility] Comment on above: Result Comment: Afri can Mexican GFR Calc Performed By: #### L 500.4050, L100.0100 #### [facility] [address] [place], [address] GAP 6 Normal 5-15 [facility] Comment on above: Performed By: #### L 500.4050, L100.0100 #### [facility] [address] [place], [address] GFR/1.73 sq M.predicted among non-blacks MDRD (S/P/Bld) [Vol rate/Area] 63 mL/min/{1.73_m2} Normal >60 [facility] Comment on above: Result Comment: Non- GFR Calc Performed By: #### L 500.4050, L100.0100 #### [facility] [address] [place], [address] Globulin (S) [Mass/Vol] 3.8 g/dL Normal 2.2-4.2 [facility] Comment on above: Performed By: #### L 500.4050, L100.0100 #### [facility] [address] [place], [address] Glucose [Mass/Vol] 107 mg/dL High 74-106 [facility] Comment on above: Result Comment: Fast ing Glucose result from 100 to 125 mg/dL suggests IMPAIRED HOMEOSTASIS per A.D.A. criteria. Performed By: #### L 500.4050, L100.0100 #### [facility] [address] [place], [address] Potassium [Moles/Vol] 4.0 mmol/L Normal 3.5-5.1 [facility] Comment on above: Performed By: #### L 500.4050, L100.0100 #### [facility] [address] [place], [address] Sodium [Moles/Vol] 142 mmol/L Normal 136-145 [facility] Comment on above: Performed By: #### L 500.4050, L100.0100 #### [facility] [address] [place], [address] T PROT 7.0 g/dL Normal 6.4-8.2 [facility] Comment on above: Performed By: #### L 500.4050, L100.0100 #### [facility] [address] [place], [address] Urea nitrogen [Mass/Vol] 9 mg/dL Normal 7-18 [facility] Comment on above: Performed By: #### L 500.4050, L100.0100 #### [facility] [address] [place], [address] Eosinophil percentageOrdered By: Sheeba Velasco on 04-28-2024 Eosinophils/100 WBC (Bld) 1.7 % 0-5 [facility] Erythrocyte distribution wid th ratioOrdered By: Sheeba Velasco on 04-28-2024 Erythrocyte distribution width (RBC) [Ratio] 15.8 % High 11.6-14.6 [facility] Erythrocyte distribution wid th standard deviationOrdered By: Sheeba Velasco on 04-28-2024 Erythrocyte distribution width (RBC) [Entitic vol] 50.3 fL High 35.1-43.9 [facility] Estimated glomerular filtrat ion rate (GFR) AmericanOrdered By: Sheeba Velasco on 04-28-2024 Estimated GFR (MDRD) Amer 76 mL/min >60 [facility] Comment on above: GFR Calc Glomerular filtration rate ( GFR) estimationOrdered By: Sheeba Velasco on 04-28-2024 Estimated GFR (MDRD) Non-Af Amer 63 mL/min >60 [facility] Comment on above: Non- GFR Calc Glucose measurementOrdered B y: Sheeba Velasco on 04-28-2024 Glucose [Mass/Vol] 107 mg/dL High 74-106 [facility] Comment on above: Fasting Glucose resu lt from 100 to 125 mg/dL suggests IMPAIRED HOMEOSTASIS per A.D.A. criteria. Hematocrit Auto (Bld) [Volum e fraction]Ordered By: Sheeba Velasco on 04-28-2024 Hematocrit (Bld) [Volume fraction] 37.4 % 37-47 [facility] Hemoglobin measurementOrdere d By: Sheeba Velasco on 04-28-2024 Hemoglobin (Bld) [Mass/Vol] 11.2 g/dL Low 12.0-15.0 [facility] Immature granulocytes/100 WB C Auto (Bld)Ordered By: Sheeba Velasco on 04-28-2024 Immature granulocytes/100 WBC (Bld) 0.200 % 0.0-0.9 [facility] Comment on above: IG% - Immature Granu locytes (promyelocytes, myelocytes and metamyelocytes) > 1% indicates that a LEFT SHIFT is Present. Laboratory - Chemistry and C hemistry - challengeOrdered By: Sheeba Velasco on 04-28-2024 AST [Catalytic activity/Vol] 19 U/L 15- [facility] Lymphocytes Auto (Unsp spec) [#/Vol]Ordered By: Sheeba Velasco on 04-28-2024 Lymphocytes (Bld) [#/Vol] 1.38 10*3/uL 0.83-4.51 [facility] Lymphocytes/100 WBC Auto (Un sp spec)Ordered By: Sheeba Velasco on 04-28-2024 Lymphocytes/100 WBC (Bld) 33.3 % 19-41 [facility] MCV (mean corpuscular volume ) determinationOrdered By: Sheeba Velasco on 04-28-2024 MCV (RBC) [Entitic vol] 88.4 fL 81-99 [facility] Mean corpuscular hemoglobin (MCH) determinationOrdered By: Sheeba Velasco on 04-28-2024 MCH (RBC) [Entitic mass] 26.5 pg Low 27.0-32.0 [facility] Mean corpuscular hemoglobin concentration (MCHC) determinationOrdered By: Sheeba Velasco on 04-28-2024 MCHC (RBC) [Mass/Vol] 29.9 g/dL Low 32-36 [facility] Mean platelet volume determi nationOrdered By: Sheeba Velasco on 04-28-2024 Platelet mean volume (Bld) [Entitic vol] 10.3 fL 6.2-12.0 [facility] Monocyte percentageOrdered B y: Sheeba Velasco on 04-28-2024 Monocytes/100 WBC (Bld) 13.5 % High 0-10 [facility] Neutrophil percentageOrdered By: Sheeba Velasco on 04-28-2024 Neutrophils/100 WBC (Bld) 50.6 % 47-70 [facility] Nucleated red blood cell per centageOrdered By: Sheeba Velasco on 04-28-2024 Nucleated RBC/100 WBC (Bld) [Ratio] 0 % 0-5 [facility] Platelet countOrdered By: Tatiana Velasco on 04-28-2024 Platelets (Bld) [#/Vol] 219 10*3/uL 150-450 [facility] Potassium measurementOrdered By: Sheeba Velasco on 04-28-2024 Potassium [Moles/Vol] 4.0 mmol/L 3.5-5.1 [facility] RBC Auto (Bld) [#/Vol]Ordere d By: Sheeba Velasco on 04-28-2024 RBC (Bld) [#/Vol] 4.23 10*6/uL 4.2-5.4 [facility] Serum anion gap measurementO rdered By: Sheeba Velasco on 04-28-2024 Anion gap [Moles/Vol] 6 mmol/L 5-15 [facility] Serum globulin measurementOr dered By: Sheeba Velasco on 04-28-2024 Globulin (S) [Mass/Vol] 3.8 g/dL 2.2-4.2 [facility] Serum or plasma alanine cano otransferase (ALT) measurementOrdered By: Sheeba Velasco on 04-28-2024 ALT [Catalytic activity/Vol] 14 U/L 13-56 [facility] Serum or plasma albumin barbara urement (mass/volume)Ordered By: Sheeba Velasco on 04-28-2024 Albumin [Mass/Vol] 3.2 g/dL 3.2-5.0 [facility] Serum or plasma alkaline paulino sphatase measurementOrdered By: Sheeba Velasco on 04-28-2024 ALP [Catalytic activity/Vol] 81 U/L 45-117 [facility] Serum or plasma calcium barbara urement (mass/volume)Ordered By: Sheeba Velasco on 04-28-2024 Calcium [Mass/Vol] 9.9 mg/dL 8.5-10.1 [facility] Serum or plasma creatinine m easurement (mass/volume)Ordered By: Sheeba Velasco on 04-28-2024 Creatinine [Mass/Vol] 0.93 mg/dL 0.55-1.02 [facility] Comment on above: The validity of the calculated GFR & GFRAA in patients over 70 years has not been determined. Clinical correlation is essential. Serum or plasma urea nitroge n measurement (mass/volume)Ordered By: Sheeba Velasco on 04-28-2024 Urea nitrogen [Mass/Vol] 9 mg/dL 7-18 [facility] Sodium levelOrdered By: Darrell Velasco on 04-28-2024 Sodium [Moles/Vol] 142 mmol/L 136-145 [facility] Total proteinOrdered By: Josh Velasco on 04-28-2024 Protein [Mass/Vol] 7.0 g/dL 6.4-8.2 [facility] White blood cell (WBC) count Ordered By: Sheeba Velasco on 04-28-2024 WBC (Bld) [#/Vol] 4.2 10*3/uL Low 4.4-11.0 [facility] 12 Lead EKGon 03-31-2024 12 Lead EKG [facility] Cardiovascular Services [address] [place] [address] 12 Lead EKG 03/31/24 0801 MR#: [id number] Acct: [id number] Name: KIKO GODFREY Rep #: [id number] : 1950 74 From: Mario Taveras MD Attending Dr: Dr. Sheri Lamb DO Status: ADM I NO Ordering Dr: Yazan Brito DO Date: 03/31/24 Location: [facility] Sex: F C Admitted: 03/31/24 Test Reason : Blood Pressure : */* mmHG Vent. Rate : 63 BPM Atrial Rate : 63 BPM P-R Int : 176 ms QRS Dur : 84 ms QT Int : 386 ms P-R-T Axes : 43 76 63 degrees QTcB Int : 395 ms Sinus rhythm with Premature atrial complexes Nonspecific ST and T wave abnormality Abnormal ECG Confirmed by MARIO TAVERAS MD ([id number]), editor book KAY COHN ([id number]) on 04/01/2024 10:57:52 AM Referred By: Alisha Confirmed By: MARIO TAVERAS MD 04/01/24 105 Date Mario Taveras MD CC: Dr. Eric Lozano MD; Dr. Sheri Lamb DO; Dr. Yazan Brito DO Signed Normal [facility] Albumin to globulin ratioOrd ered By: Yazan Brito on 03-31-2024 Albumin/Globulin [Mass ratio] 0.7 {ratio} Low 0.9-2.4 [facility] Bilirubin, totalOrdered By: Yazan Brito on 03-31-2024 Bilirubin [Mass/Vol] 0.20 mg/dL 0.20-1.00 [facility] Comment on above: For patients on eltr ombopag therapy, use of Dimension [place] TBIL is not recommended. Blood urea nitrogen (BUN)/cr eatinine ratioOrdered By: Yazan Brito on 03-31-2024 Urea nitrogen/Creatinine [Mass ratio] 13.9 mg/mg 10-20 [facility] CBC-Complete Blood Cnt No Di ffon 03-31-2024 Erythrocyte distribution width (RBC) [Ratio] 15.4 % High 11.6-14.6 [facility] Comment on above: Performed By: #### L 500.4050, L100.0500, L501.4020 ####[facility] [address] [place], [address] Hematocrit (Bld) [Volume fraction] 36.1 % Low 37-47 [facility] Comment on above: Performed By: #### L 500.4050, L100.0500, L501.4020 ####[facility] [address] [place], [address] Hemoglobin (Bld) [Mass/Vol] 11.2 g/dL Low 12.0-15.0 [facility] Comment on above: Performed By: #### L 500.4050, L100.0500, L501.4020 ####[facility] [address] [place], [address] MCH (RBC) [Entitic mass] 26.9 pg Low 27.0-32.0 [facility] Comment on above: Performed By: #### L 500.4050, L100.0500, L501.4020 ####[facility] [address] [place], [address] MCHC (RBC) [Mass/Vol] 31.0 g/dL Low 32-36 [facility] Comment on above: Performed By: #### L 500.4050, L100.0500, L501.4020 ####[facility] [address] [place], [address] MCV (RBC) [Entitic vol] 86.8 fL Normal 81-99 [facility] Comment on above: Performed By: #### L 500.4050, L100.0500, L501.4020 ####[facility] [address] [place], [address] Platelet mean volume (Bld) [Entitic vol] 10.2 fL Normal 6.2-12.0 [facility] Comment on above: Performed By: #### L 500.4050, L100.0500, L501.4020 ####[facility] [address] [place], [address] Platelets (Bld) [#/Vol] 272 10*3/uL Normal 150-450 [facility] Comment on above: Performed By: #### L 500.4050, L100.0500, L501.4020 ####[facility] [address] [place], [address] RBC (Bld) [#/Vol] 4.16 10*6/uL Low 4.2-5.4 [facility] Comment on above: Performed By: #### L 500.4050, L100.0500, L501.4020 ####[facility] [address] [place], [address] RDW SD 48.0 fl High 35.1-43.9 [facility] Comment on above: Performed By: #### L 500.4050, L100.0500, L501.4020 ####[facility] [address] [place], [address] WBC (Bld) [#/Vol] 6.2 10*3/uL Normal 4.4-11.0 [facility] Comment on above: Performed By: #### L 500.4050, L100.0500, L501.4020 ####[facility] [address] [place], [address] CTA Chest W/WO Contraston CTA Chest W/WO Contrast [facility] Imaging Services [address] [place] [address] CTA Chest W/WO Contrast MR#: [id number] Acct: [id number] Name: KIKO GODFREY Rep #: [id number] : 1950 F 74 From: Craig sampson MD PCP: Dr. Eric Lozano MD Status: REG ER Study: CTA Chest W/WO Contrast Date of Exam: 03/31/24 Exam# [id number] Ordering Dr: Yazan Brito DO [id number] STUDY: CTA CHEST WITH CONTRAST REASON FOR EXAM: Female, 74 years old. Cough, hypoxia r/o PNA, PE RADIATION DOSAGE (If Supplied By Facility): CTDIvol = ( 11.22 ) mGy, DLP = ( 443.14 ) mGycm TECHNIQUE: The examination was performed with the intravenous administration of IV 100mL Isovue-370. Post-processing of the angiographic images was performed, with multiplanar reformation and 3D reconstruction. Individualized dose optimization techniques were used for this CT. COMPARISON: Comparison is made with prior study dated September 06, 2023. FINDINGS: CTA Chest Normal enhancement of the main pulmonary artery and right and left pulmonary arteries. Normal enhancement of the bilateral peripheral pulmonary arteries. There is no demonstrated pulmonary embolism. There is atherosclerotic calcification of the aortic arch with tortuosity. There is no demonstrated aortic dissection. There are calcifications of the coronary arteries. Normal mediastinum. Normal hilar regions. Normal visualized trachea and bronchi. The lungs are hyper expanded, with flattening of the hemidiaphragms. Mild degree of emphysematous changes. Normal pleura. Normal chest wall structures. There are degenerative changes of thoracic spine. Solitary gallstone. CT/CTA Chest W/WO Contrast IMPRESSION: No evidence of pulmonary embolism. Hyperinflation and mild emphysematous changes. Solitary gallstone. Small hiatal hernia. Electronically Signed: Craig Lindo MD at 9:54 EST , CC: Dr. Eric Lozano MD; Dr. Yazan Brito DO Mid Level Developer: Signed Normal [facility] Carbon dioxide measurementOr dered By: Yazan Brito on 03-31-2024 CO2 [Moles/Vol] 27.0 mmol/L 21.0-32.0 [facility] Chest PA and Lateralon 03-31 Chest PA and Lateral [facility] Imaging Services [address] [place], [place] [address] Chest PA and Lateral MR#: [id number] Acct: [id number] Name: KIKO GODFREY Rep #: [id number] : 1950 F 74 From: Craig sampson MD PCP: Dr. Eric Lozano MD Status: [facility] Study: Chest PA and Lateral Date of Exam: 03/31/24 Exam# [id number] Ordering Dr: Yazan Brito DO [id number] STUDY: X-RAY CHEST REASON FOR EXAM: Female, 74 years old. Cough and dizziness. TECHNIQUE: PA and lateral views of the chest. COMPARISON: Comparison is made with prior study dated June 29, 2021. FINDINGS: Hyperinflation. Mild increase markings at the lung bases suggest some mild scarring. There is no demonstrated pleural abnormality. Normal size heart. Normal mediastinum and genaro. Normal visualized pulmonary arteries. There is atherosclerotic calcification of the aortic arch with tortuosity. There are degenerative changes of the visualized thoracic spine. Normal visualized ribs, clavicles, and shoulders. There is no demonstrated abnormality of the visualized soft tissue structures of the upper abdomen. RAD/Chest PA and Lateral IMPRESSION: Hyperinflation. Mild increased markings at the lung bases suggestive of linear scarring. Electronically Signed: Craig Lindo MD at 8:30 EST , CC: Dr. Eric Lozano MD; Dr. Yazan Brito, DO Mid Level Developer: Signed Normal [facility] Chloride measurementOrdered By: Yazan Brito on 03-31-2024 Chloride [Moles/Vol] 110 mmol/L High 98-107 [facility] Comprehensive Metabolic Prof ilon 03-31-2024 Albumin [Mass/Vol] 3.1 g/dL Low 3.2-5.0 [facility] Comment on above: Order Comment: 'TROP ' Serial specimen #1, #2 or #3: 1 Performed By: #### L 500.4050, L100.0500, L501.4020 ####[facility] [address] [place], [address] Albumin/Globulin [Mass ratio] 0.7 {ratio} Low 0.9-2.4 [facility] Comment on above: Order Comment: 'TROP ' Serial specimen #1, #2 or #3: 1 Performed By: #### L 500.4050, L100.0500, L501.4020 ####[facility] [address] [place], [address] ALK P 81 U/L Normal 45-117 [facility] Comment on above: Order Comment: 'TROP ' Serial specimen #1, #2 or #3: 1 Performed By: #### L 500.4050, L100.0500, L501.4020 ####[facility] [address] [place], [address] ALT [Catalytic activity/Vol] 14 U/L Normal 13-56 [facility] Comment on above: Order Comment: 'TROP ' Serial specimen #1, #2 or #3: 1 Performed By: #### L 500.4050, L100.0500, L501.4020 ####[facility] [address] [place], [address] AST [Catalytic activity/Vol] 14 U/L Low 15-37 [facility] Comment on above: Order Comment: 'TROP ' Serial specimen #1, #2 or #3: 1 Performed By: #### L 500.4050, L100.0500, L501.4020 ####[facility] [address] [place], [address] Bilirubin [Mass/Vol] 0.20 mg/dL Normal 0.20-1.00 [facility] Comment on above: Order Comment: 'TROP ' Serial specimen #1, #2 or #3: 1 Result Comment: For patients on eltrombopag therapy, use of Dimension [place] TBIL is not recommended. Performed By: #### L 500.4050, L100.0500, L501.4020 ####[facility] [address] [place], [address] BUN/CRE 13.9 RATIO Normal 10-20 [facility] Comment on above: Order Comment: 'TROP ' Serial specimen #1, #2 or #3: 1 Performed By: #### L 500.4050, L100.0500, L501.4020 ####[facility] [address] [place], [address] CA,Total 9.3 mg/dL Normal 8.5-10.1 [facility] Comment on above: Order Comment: 'TROP ' Serial specimen #1, #2 or #3: 1 Performed By: #### L 500.4050, L100.0500, L501.4020 ####[facility] [address] [place], [address] Chloride [Moles/Vol] 110 mmol/L High 98-107 [facility] Comment on above: Order Comment: 'TROP ' Serial specimen #1, #2 or #3: 1 Performed By: #### L 500.4050, L100.0500, L501.4020 ####[facility] [address] [place], [address] CO2 [Moles/Vol] 27.0 mmol/L Normal 21.0-32.0 [facility] Comment on above: Order Comment: 'TROP ' Serial specimen #1, #2 or #3: 1 Performed By: #### L 500.4050, L100.0500, L501.4020 ####[facility] [address] [place], [address] Creatinine [Mass/Vol] 0.86 mg/dL Normal 0.55-1.02 [facility] Comment on above: Order Comment: 'TROP ' Serial specimen #1, #2 or #3: 1 Result Comment: The validity of the calculated GFR GFRAA in patients over 70 years has not been determined. Clinical correlation is essential. Performed By: #### L 500.4050, L100.0500, L501.4020 ####[facility] [address] [place], [address] ECRCL 70.56 ml/min Normal [facility] Comment on above: Order Comment: 'TROP ' Serial specimen #1, #2 or #3: 1 Performed By: #### L 500.4050, L100.0500, L501.4020 ####[facility] [address] [place], [address] EST GFR - AA 83 mL/min Normal >60 [facility] Comment on above: Order Comment: 'TROP ' Serial specimen #1, #2 or #3: 1 Result Comment: Afri can Mexican GFR Calc Performed By: #### L 500.4050, L100.0500, L501.4020 ####[facility] [address] [place], [address] GAP 4 Low 5-15 [facility] Comment on above: Order Comment: 'TROP ' Serial specimen #1, #2 or #3: 1 Performed By: #### L 500.4050, L100.0500, L501.4020 ####[facility] [address] [place], [address] GFR/1.73 sq M.predicted among non-blacks MDRD (S/P/Bld) [Vol rate/Area] 69 mL/min/{1.73_m2} Normal >60 [facility] Comment on above: Order Comment: 'TROP ' Serial specimen #1, #2 or #3: 1 Result Comment: Non- GFR Calc Performed By: #### L 500.4050, L100.0500, L501.4020 ####[facility] [address] [place], [address] Globulin (S) [Mass/Vol] 4.5 g/dL High 2.2-4.2 [facility] Comment on above: Order Comment: 'TROP ' Serial specimen #1, #2 or #3: 1 Performed By: #### L 500.4050, L100.0500, L501.4020 ####[facility] [address] [place], [address] Glucose [Mass/Vol] 107 mg/dL High 74-106 [facility] Comment on above: Order Comment: 'TROP ' Serial specimen #1, #2 or #3: 1 Result Comment: Fast ing Glucose result from 100 to 125 mg/dL suggests IMPAIRED HOMEOSTASIS per A.D.A. criteria. Performed By: #### L 500.4050, L100.0500, L501.4020 ####[facility] [address] [place], [address] Potassium [Moles/Vol] 3.2 mmol/L Low 3.5-5.1 [facility] Comment on above: Order Comment: 'TROP ' Serial specimen #1, #2 or #3: 1 Performed By: #### L 500.4050, L100.0500, L501.4020 ####[facility] [address] [place], [address] Sodium [Moles/Vol] 141 mmol/L Normal 136-145 [facility] Comment on above: Order Comment: 'TROP ' Serial specimen #1, #2 or #3: 1 Performed By: #### L 500.4050, L100.0500, L501.4020 ####[facility] [address] [place], [address] T PROT 7.6 g/dL Normal 6.4-8.2 [facility] Comment on above: Order Comment: 'TROP ' Serial specimen #1, #2 or #3: 1 Performed By: #### L 500.4050, L100.0500, L501.4020 ####[facility] [address] [place], [address] Urea nitrogen [Mass/Vol] 12 mg/dL Normal 7-18 [facility] Comment on above: Order Comment: 'TROP ' Serial specimen #1, #2 or #3: 1 Performed By: #### L 500.4050, L100.0500, L501.4020 ####[facility] [address] [place], [address] Emergency Department Summary on 03-31-2024 Emergency Department Summary [facility] Medical Records Department [address] [place] [address] Emergency Department Summary 03/31/24 MR#: [id number] Acct: [id number] Name: KIKO GODFREY Rep #: [id number] : 1950 74 From: Yazan Brito DO PCP: Dr. Eric Lozano MD Status:ADM EMILIANO Location: [address] History of Present Illness Chief Complaint: Cough PFSH PFS Medical History Anxiety and depression Schizophrenia Rheumatoid arthritis Former smoker Pulmonary embolism Transient ischemic attack Paroxysmal supraventricular tachycardia Iron deficiency anemia Obesity (BMI 30-39.9) GERD (gastroesophageal reflux disease) COPD (chronic obstructive pulmonary disease) Home Medications ???Medication ???Instructions ???Recorded ???Last Taken ???Type hydroxychloroquine 200 mg tablet 200 mg PO BIDCM 09/18/13 09/17/13 20:00 History pantoprazole 40 mg tablet,delayed 40 mg PO DAILY 02/26/19 07/28/23 History release famotidine 20 mg tablet 20 mg PO BID 11/08/21 07/28/23 History blood pressure monitor #1 ea 11/08/22 Unknown Rx leucovorin calcium 15 mg tablet 15 mg PO QWEEK counteract the 11/08/22 07/24/23 History methotrexate prednisone 2.5 mg tablet 2.5 mg PO DAILY 11/08/22 07/28/23 History metoprolol tartrate 50 mg tablet See Rx Instructions .Route 04/09/23 07/28/23 Rx .COMPLEX #180 tabs methotrexate sodium 25 mg/mL 18.75 mg subcut QWEEK arthritis 07/28/23 07/23/23 History injection solution sulfasalazine 500 mg 1,000 mg PO BID 07/28/23 07/28/23 History tablet,delayed release tramadol 50 mg tablet 50 - 100 mg PO Q6H PRN PRN pain 07/28/23 Unknown History mecobalamin (vitamin B12) 5,000 3,000 mcg PO QDAY 01/06/24 Unknown History mcg chewable tablet potassium citrate 10 mEq (1,080 10 meq PO BID 03/31/24 Unknown History mg) tablet,extended release Allergy/AdvReac Type Severity Reaction Status Date / Time doxycycline AdvReac PT UNSURE Verified 03/31/24 07:35 OF REACTION Family History Mother Breast cancer Surgical History History of radiofrequency ablation procedure for cardiac arrhythmia (03/2003) H/O tubal ligation History of knee surgery History of breast lump removal History of foot surgery Social History household members: none Smoking Status: Former smoker how long ago did patient quit smoking: Quit 15 yrs prior, smoked 2 ppd since 22 yrs old until quit. alcohol intake: never substance use type: does not use EXAM Physical Exam Const Vital Signs: 03/31/24 07:35 03/31/24 08:07 03/31/24 08:43 Temperature 98.5 F 98.1 F Temperature Source Oral Oral Pulse Rate 90 56 L Respiratory Rate 20 H 18 Respiratory Effort Normal Respiratory Depth Normal Respiratory Pattern Tachypnea Blood Pressure 146/117 H 141/54 H Blood Pressure Mean 126 83 Pulse Ox 100 99 Oxygen Delivery Method Room Air Room Air 03/31/24 09:00 03/31/24 10:00 Temperature 98.4 F 97.9 F Temperature Source Oral Oral Pulse Rate 57 L 64 Respiratory Rate 16 18 Respiratory Effort Respiratory Depth Respiratory Pattern Blood Pressure 134/81 H 129/69 H Blood Pressure Mean 98 89 Pulse Ox 91 Oxygen Delivery Method Room Air Room Air MDM MDM MDM Narrative Medical decision making narrative: HISTORY OF PRESENT ILLNESS: 74-year-old female presents with cough. Notes cough has been ongoing for last several days. No sick contacts and grandchildren. Is unsure of what her sick contacts were infected bite. States transient lightheadedness specifically with standing. Notes she is on prednisone and azithromycin. Denies bleeding diathesis. Denies vomiting or diarrhea. Denies chest pain or shortness of breath. Denies leg swelling. Denies focal numbness weakness or loss of sensation. REVIEW OF SYSTEMS: Pertinent positives: Cough, lightheadedness Pertinent negatives: Chest pain, shortness of breath PHYSICAL EXAM: Nursing triage notes reviewed, Vital signs reviewed Constitutional: please see mdm HENT: MMM Eyes: Pupils equal round and reactive to light, Extraocular muscles intact Neck: No stridor, no JVD, full neck ROM Lungs: Clear to auscultation, coarse breath sounds. No increased work of breathing, no conversational dyspnea, no accessory muscle use, no nasal flaring. No respiratory distress noted Heart: Regular rate and rhythm, No murmurs, No rubs and No gallops, 2+ distal pulses (radial, femoral, posterior tibial) in all extremities Abdomen: Soft, there is no tenderness, rigidity, rebound or guarding, no obvious peritoneal signs, (more content not included)... Normal [facility] Erythrocyte distribution wid th ratioOrdered By: Yazan Brito on 03-31-2024 Erythrocyte distribution width (RBC) [Ratio] 15.4 % High 11.6-14.6 [facility] Erythrocyte distribution wid th standard deviationOrdered By: Yazan Brito on 03-31-2024 Erythrocyte distribution width (RBC) [Entitic vol] 48.0 fL High 35.1-43.9 [facility] Estimated glomerular filtrat ion rate (GFR) AmericanOrdered By: Yazan Brito on 03-31-2024 Estimated GFR (MDRD) Amer 83 mL/min >60 [facility] Comment on above: GFR Calc Estimation of creatinine jennifer aranceOrdered By: Yazan Brito on 03-31-2024 Estimated Creatinine Clearance Calc 70.56 ml/min [facility] Glomerular filtration rate ( GFR) estimationOrdered By: Yazan Brito on 03-31-2024 Estimated GFR (MDRD) Non-Af Amer 69 mL/min >60 [facility] Comment on above: Non- GFR Calc Glucose measurementOrdered B y: Yazan Brito on 03-31-2024 Glucose [Mass/Vol] 107 mg/dL High 74-106 [facility] Comment on above: Fasting Glucose resu lt from 100 to 125 mg/dL suggests IMPAIRED HOMEOSTASIS per A.D.A. criteria. H AND P Exam - Hospitaliston 03-31-2024 H&P Exam - Hospitalist [facility] Medical Records Department [address] [place] [address] H P Exam - Hospitalist 03/31/24 1434 MR#: [id number] Acct: [id number] Name: KIKO GODFREY Rep #: [id number] : 1950 74 From: Eric Peace DO PCP: Dr. Eric Lozano MD Status:ADM EMILIANO Location: [place] [address] HPI - General General Date of Admission: 03/31/24 Date of Service: 03/31/24 Chief Complaint: Shortness of breath HPI Narrative KIKO GODFREY, is a 74 F who presents with shortness of breath. Over the past week, patient has been feeling more short of breath. Seen in urgent care and was started on azithromycin and prednisone but continued to get worse. States that when she exerts herself she feels dizzy and lightheaded and be ready to pass out. So she was not getting better she presented to the emergency room where she underwent a workup that was unremarkable. But when they walked her she drop her sats down into the 70s. X-ray was concerning for COPD but she has never been formally diagnosed with that. She is history of a remote smoking [facility] Medical History Anxiety and depression Schizophrenia Rheumatoid arthritis Former smoker Pulmonary embolism Transient ischemic attack Paroxysmal supraventricular tachycardia Iron deficiency anemia Obesity (BMI 30-39.9) GERD (gastroesophageal reflux disease) COPD (chronic obstructive pulmonary disease) Home Medications ???Medication ???Instructions ???Recorded ???Last Taken ???Type hydroxychloroquine 200 mg tablet 200 mg PO BIDCM 09/18/13 09/17/13 20:00 History pantoprazole 40 mg tablet,delayed 40 mg PO DAILY 02/26/19 07/28/23 History release famotidine 20 mg tablet 20 mg PO BID 11/08/21 07/28/23 History blood pressure monitor #1 ea 11/08/22 Unknown Rx leucovorin calcium 15 mg tablet 15 mg PO QWEEK counteract the 11/08/22 07/24/23 History methotrexate prednisone 2.5 mg tablet 2.5 mg PO DAILY 11/08/22 07/28/23 History metoprolol tartrate 50 mg tablet See Rx Instructions .Route 04/09/23 07/28/23 Rx .COMPLEX #180 tabs methotrexate sodium 25 mg/mL 18.75 mg subcut QWEEK arthritis 07/28/23 07/23/23 History injection solution sulfasalazine 500 mg 1,000 mg PO BID 07/28/23 07/28/23 History tablet,delayed release tramadol 50 mg tablet 50 - 100 mg PO Q6H PRN PRN pain 07/28/23 Unknown History mecobalamin (vitamin B12) 5,000 3,000 mcg PO QDAY 01/06/24 Unknown History mcg chewable tablet potassium citrate 10 mEq (1,080 10 meq PO BID 03/31/24 Unknown History mg) tablet,extended release Allergy/AdvReac Type Severity Reaction Status Date / Time doxycycline AdvReac PT UNSURE Verified 03/31/24 07:35 OF REACTION Family History Mother Breast cancer Surgical History History of radiofrequency ablation procedure for cardiac arrhythmia (03/2003) H/O tubal ligation History of knee surgery History of breast lump removal History of foot surgery Social History household members: none Smoking Status: Former smoker how long ago did patient quit smoking: Quit 15 yrs prior, smoked 2 ppd since 22 yrs old until quit. alcohol intake: never substance use type: does not use ROS ROS Narrative Has been coughing up some greenish type phlegm. No fever or chills. Sinus congestion. Sore throat. All review of systems were negative except as mentioned above in the history of present illness and the other review of systems. Vital Signs Vital Signs Vital Signs: 03/31/24 07:35 03/31/24 08:07 03/31/24 08:43 Temperature 36.9 C 36.7 C Temperature Source Oral Oral Pulse Rate 90 56 L Respiratory Rate 20 H 18 Respiratory Effort Normal Respiratory Depth Normal Respiratory Pattern Tachypnea Blood Pressure 146/117 H 141/54 H Blood Pressure Mean 126 83 Pulse Ox 100 99 Oxygen Delivery Method Room Air Room Air 03/31/24 09:00 03/31/24 10:00 03/31/24 10:50 Temperature 36.9 C 36.6 C Temperature Source Oral Oral Pulse Rate 57 L 64 64 Respiratory Rate 16 18 16 Respiratory Effort Respiratory Depth Respiratory Pattern Normal Blood Pressure 134/81 H 129/69 H Blood Pressure Mean 98 89 Pulse Ox 91 Oxygen Delivery Method Room Air Room Air 03/31/24 10:59 03/31/24 11:26 03/31/24 14:02 Temperature 36.6 C 36.7 C Temperature Source Oral Pulse Rate 69 56 L 69 Respiratory Rate 18 20 H 16 Respiratory Effort Respiratory Depth Respiratory Pattern Normal Blood Pressure 161/58 H 147/56 H Blood Pressure Mean 92 86 Pulse Ox 95 98 Oxygen Delivery Method Room Air 12/ (more content not included)... Normal [facility] Hematocrit Auto (Bld) [Volum e fraction]Ordered By: Yazan Brito on 03-31-2024 Hematocrit (Bld) [Volume fraction] 36.1 % Low 37-47 [facility] Hemoglobin measurementOrdere d By: Yazan Brito on 03-31-2024 Hemoglobin (Bld) [Mass/Vol] 11.2 g/dL Low 12.0-15.0 [facility] Influenza virus A and B and SARS-CoV-2 (COVID-19) and Respiratory syncytial virus RNAOrdered By: Yazan Brito on 03-31-2024 SARS-CoV-2 (COVID-19) RNA JANA+probe Ql (Unsp spec) [facility] L501.4020on 03-31-2024 TROPONIN-I HS 14 pg/mL Normal 3.0-54.0 [facility] Comment on above: Order Comment: 'TROP ' Serial specimen #1, #2 or #3: 1 Result Comment: Hugo velazco Note: New Test Units and Gender Specific Reference Ranges. For more information see Policy Stat Procedure [place] High Sensitivity Troponin (TNIH) and attachments. Performed By: #### L 500.4050, L100.0500, L501.4020 ####[facility] [id number] [facility] [place], [address] Laboratory - Chemistry and C hemistry - challengeOrdered By: Yazan Brito on 03-31-2024 AST [Catalytic activity/Vol] 14 U/L Low 15-37 [facility] Low Dose CT Lung Screeningon 03-31-[address] Lung Screening [facility] Services [address] [place] [address] Lung Screening MR#: [id number] Acct: [id number] Name: KIKO GODFREY Rep #: [id number] : 1950 F 74 From: Craig sampson MD PCP: Dr. Eric Lozano MD Status: [facility] Study: Low Dose CT Lung Screening Date of Exam: 03/31 Exam# [id number] Ordering Dr: Yudy Angel NP [employer] IN[employer]STIGATOR-C [id number] STUDY: LOW DOSE CT LUNG CANCER SCREENING REASON FOR EXAM: Female, 74 years old. SCREENING RADIATION DOSAGE (If Supplied By Facility): CTDIvol = ( 3.02 ) mGy, DLP = ( 101.94 ) mGycm TECHNIQUE: No contrast was administered. Low dose technique was utilized (average mAS-38 and kVp 120). 1.25 mm axial source images with a slice interval of 1.25-mm were reconstructed in lung windows. 2.5 mm axial source images with a slice interval of 2.5-mm were reconstructed in lung windows. 5.0 mm axial source images with a slice interval of 5.0-mm were reconstructed in soft tissue windows. COMPARISON: Comparison is made with prior study dated November 18, 2023. NODULES: Stable 4 mm noncalcified nodule in the right lung apex. Emphysema: Mild degree of emphysematous changes. Stable scarring in the upper lobes. Endobronchial lesion: Unremarkable Aorta: Atherosclerotic plaque formation of the aortic arch. CORONARY ARTERIES: Coronary artery calcification is seen. Heart: Unremarkable Pulmonary artery: Unremarkable Mediastinal nodes: Small mediastinal lymph nodes. Other chest and abdominal findings: CT/Low Dose CT Lung Screening IMPRESSION: Lung-RADS category 2 - Continue annual screening with LDCT in 12 months. IMPORTANT NOTES FOR USE: ACR Lung-RADS Version 1.1 Assessment Categories Release Date: 2018 Category: Coded 0-4 bases on nodule(s) with highest degree of suspicion. Negative screen is defined as categories 1 and 2; a positive screen is defined as categories 3 and 4. Category 3 and 4A nodules that are unchanged on interval CT should be coded as category 2, and individuals returned to screening in 12 months. Category 4X: Category 3 or 4 nodules with additional imaging findings that increase the suspicion of lung cancer, such as spiculation, GGN that doubles in size in 1 year, enlarged lymph notes, etc. Category Modifiers: S (significant finding unrelated to lung cancer) Electronically Signed: Craig Lindo MD at 15:15 EST , CC: AHSAN Angel; Dr. Eric Lozano MD Mid Level Developer: Signed Normal [facility] M100.678on 03-31-2024 M100.678 Pending SARS-CoV-2 (COVID 19) Negative INFLUENZA A Negative INFLUENZA B Negative RSV PCR Negative Normal [facility] Comment on above: Performed By: #### M 100.678 ####[facility] [id number] [place], [place], [id number] MCV (mean corpuscular volume ) determinationOrdered By: Yazan Brito on 03-31-2024 MCV (RBC) [Entitic vol] 86.8 fL 81-99 [facility] Mean corpuscular hemoglobin (MCH) determinationOrdered By: Yazan Brito on 03-31-2024 MCH (RBC) [Entitic mass] 26.9 pg Low 27.0-32.0 [facility] Mean corpuscular hemoglobin concentration (MCHC) determinationOrdered By: Yazan Brito on 03-31-2024 MCHC (RBC) [Mass/Vol] 31.0 g/dL Low 32-36 [facility] Mean platelet volume determi nationOrdered By: Yazan Brito on 03-31-2024 Platelet mean volume (Bld) [Entitic vol] 10.2 fL 6.2-12.0 [facility] Platelet countOrdered By: jaime Brito on 03-31-2024 Platelets (Bld) [#/Vol] 272 10*3/uL 150-450 [facility] Potassium measurementOrdered By: Yazan Brito on 03-31-2024 Potassium [Moles/Vol] 3.2 mmol/L Low 3.5-5.1 [facility] RBC Auto (Bld) [#/Vol]Ordere d By: Yazan Brito on 03-31-2024 RBC (Bld) [#/Vol] 4.16 10*6/uL Low 4.2-5.4 [facility] Serum anion gap measurementO rdered By: Yazan Brito on 03-31-2024 Anion gap [Moles/Vol] 4 mmol/L Low 5-15 [facility] Serum globulin measurementOr dered By: Yazan Brito on 03-31-2024 Globulin (S) [Mass/Vol] 4.5 g/dL High 2.2-4.2 [facility] Serum or plasma alanine cano otransferase (ALT) measurementOrdered By: Yazan Brito on 03-31-2024 ALT [Catalytic activity/Vol] 14 U/L 13-56 [facility] Serum or plasma albumin barbara urement (mass/volume)Ordered By: Yazan Brito on 03-31-2024 Albumin [Mass/Vol] 3.1 g/dL Low 3.2-5.0 [facility] Serum or plasma alkaline paulino sphatase measurementOrdered By: Yazan Brito on 03-31-2024 ALP [Catalytic activity/Vol] 81 U/L 45-117 [facility] Serum or plasma calcium barbara urement (mass/volume)Ordered By: Yazan Brito on 03-31-2024 Calcium [Mass/Vol] 9.3 mg/dL 8.5-10.1 [facility] Serum or plasma creatinine m easurement (mass/volume)Ordered By: Yazan Brito on 03-31-2024 Creatinine [Mass/Vol] 0.86 mg/dL 0.55-1.02 [facility] Comment on above: The validity of the calculated GFR & GFRAA in patients over 70 years has not been determined. Clinical correlation is essential. Serum or plasma urea nitroge n measurement (mass/volume)Ordered By: Yazan Brito on 03-31-2024 Urea nitrogen [Mass/Vol] 12 mg/dL 7-18 [facility] Sodium levelOrdered By: Mariano Brito on 03-31-2024 Sodium [Moles/Vol] 141 mmol/L 136-145 [facility] Total proteinOrdered By: Osmar Brito on 03-31-2024 Protein [Mass/Vol] 7.6 g/dL 6.4-8.2 [facility] Troponin IOrdered By: Yazan Brito on 03-31-2024 Troponin I High Sensitivity 14 pg/mL 3.0-54.0 [facility] Comment on above: Please Note: New Janay t Units and Gender Specific Reference Ranges. For more information see Policy Stat Procedure [place] High Sensitivity Troponin (TNIH) and attachments. White blood cell (WBC) count Ordered By: Yazan Brito on 03-31-2024 WBC (Bld) [#/Vol] 6.2 10*3/uL 4.4-11.0 [facility] CNOVon 03-29-2024 CNOV Office Visit (UCWSTR ) -------- KAIKIKO Love ([id number]) 1950 F Date Time Provider Department 03/29/24 2:30 PM MIRA VALENCIA WS During your visit today, we recorded the following information about you: Temperature Pulse Respiration Blood pressure 97.7 degrees 70/minute 16/minute 132/74 Weight 93.1 kg Mira Valencia PA-C 03/29/2024 2:33 PM Signed This note was created using Taste Filter. Subjective Kiko Godfrey is a 74 year old female. HPI Review of Systems Objective BP 132/74 Pulse 70 Temp 36.5 ?C (97.7 ?F) Resp 16 Wt 93.1 kg (205 lb 4 oz) SpO2 99% Physical Exam Assessment and Plan Mira Valencia PA-C 03/29/2024 2:33 PM Signed This note was created using Taste Filter. Subjective Kiko Godfrey is a 74 year old female. Patient is a 74-year-old female who complains of worsening loose, productive cough that she has been experiencing for the past 1 week. Patient reports mild congestion but denies sinus pressure, ear pain or sore throat. Patient has no history of asthma or COPD and does not smoke. Patient reports no fever, chills or myalgia. Review of Systems Respiratory: Positive for cough. All other systems reviewed and are negative. Objective BP 132/74 Pulse 70 Temp 36.5 ?C (97.7 ?F) Resp 16 Wt 93.1 kg (205 lb 4 oz) SpO2 99% Physical Exam Vitals and nursing note reviewed. Constitutional: Appearance: Normal appearance. She is normal weight. HENT: Head: Normocephalic and atraumatic. Right Ear: Tympanic membrane, ear canal and external ear normal. Left Ear: Tympanic membrane, ear canal and external ear normal. Nose: Nose normal. Mouth/Throat: Mouth: Mucous membranes are moist. Pharynx: Oropharynx is clear. Eyes: Extraocular Movements: Extraocular movements intact. Conjunctiva/sclera: Conjunctivae normal. Pupils: Pupils are equal, round, and reactive to light. Cardiovascular: Rate and Rhythm: Normal rate and regular rhythm. Pulses: Normal pulses. Heart sounds: Normal heart sounds. Pulmonary: Effort: Pulmonary effort is normal. Breath sounds: Wheezing and rhonchi present. Musculoskeletal: Cervical back: Normal range of motion and neck supple. Skin: General: Skin is warm and dry. Capillary Refill: Capillary refill takes less than 2 seconds. Neurological: General: No focal deficit present. Mental Status: She is alert and oriented to person, place, and time. Psychiatric: Mood and Affect: Mood normal. Behavior: Behavior normal. Thought Content: Thought content normal. Judgment: Judgment normal. Assessment and Plan Physical exam findings as noted above. Patient has allergies to both doxycycline and Augmentin. Patient was provided with prescriptions for Zithromax 250 mg, prednisone 20 mg and an albuterol MDI. Patient was very clearly instructed to report to an emergency department if she notes any acute worsening symptoms as laboratory testing and other interventions will be required. Additional supportive care was reviewed and the patient verbalizes excellent understanding of all instructions. CLINICAL IMPRESSION: Bronchopneumonia ASSESSMENT/PLAN: 1. Bronchopneumonia - ICD9: 485, ICD10: J18.0 - AZITHROMYCIN 250 MG TABLET - PREDNISONE 20 MG TABLET - ALBUTEROL SULFATE HFA 90 MCG/ACTUATION AEROSOL INHALER - INHALATIONAL SPACING DEVICE Mira Valencia PA-C Allergies As of Date: 03/29/2024 Noted Allergy Reaction AMOXICILLIN-POT CLAVULANATE 04/04/2016 8 - GI Upset DOXYCYCLINE 05/18/2021 16 - Unknown Comments: Makes her very ill when she takes it Date Reviewed: 03/29/2024 Reviewed by: Shawna Suggs MA - Fully Assessed Reason for Visit: Chest Congestion [236] Cmt: cough x 5 days Primary Visit Diagnosis:Bronchopneumon ia [J18.0] Order(s):azithromycin (ZITHROMAX Z-FERDINAND) 250 mg tabletTake 2 tablets (500 mg) by mouth on day 1, then take 1 tablet (250 mg) by mouth for 4 days.Disp: 6 tabletRfl: 0 predniSONE (DELTASONE) 20 mg tabletTake 1 tablet by mouth two times a day for 5 days.Disp: 10 tabletRfl: 0 albuterol HFA (PROVENTIL HFA, VENTOLIN HFA) 90 mcg/actuation inhalerInhale 2 Puffs as instructed every 4 hours as needed for wheezing/shortness of breath.Disp: 1 EachRfl: 0 Inhalational Spacing Device1 Device one time only for 1 dose.Disp: 1 EachRfl: 0 Prescriptions as of 03/29/2024 - azithromycin (ZITHROMAX Z-FERDINAND) 250 mg tablet Take 2 tablets (500 mg) by mouth on day 1, then take 1 tablet (250 mg) by mouth for 4 days. - predniSONE (DELTASONE) 20 mg tablet Take 1 tablet by mouth two times a day for 5 days. - albuterol HFA (PROVENTIL HFA, VENTOLIN HFA) 90 mcg/actuation inhaler Inhale 2 Puffs as instructed every 4 hours as needed for wheezing/shortness of breath. - Inhalational Spacing Device 1 Device one time only for 1 dose. - ELIQUIS 5 mg tab(s) - albuterol HFA (PROVENTIL HF (more content not included)... Normal [facility] Venous Duplex US, Unilateral on 02-06-2024 Venous Duplex US, Unilateral [facility] [address] [place] [address] Venous Duplex US, Unilateral 02/06/24 1017 MR#: [id number] Acct: [id number] Name: KIKO GODFREY Rep #: [id number] : 1950 74 From: Eric lOmos MD Attending Dr: TATIANA Saab Status: REG CLI Ordering Dr: Glenna Dave Date: 02/06/24 Location: [facility] Sex: F C Admitted: Reason For Study: HX DVT RIGHT LEFT CFV is compressible, spontaneous, phasic, GSV is normal. competent and demonstrates normal CFV is compressible, spontaneous, phasic, augmentation. competent, and demonstrates normal Procedure augmentation. This is a venous duplex using B-mode, color FV is compressible, spontaneous, phasic, flow and spectral Doppler. competent and demonstrates normal Exam performed in department. augmentation. The exam was diagnostic. POP V is compressible, spontaneous, phasic, Compare to study from 08/12/2023. competent and demonstrates normal augmentation. T/P Trunk is compressible. PTV is compressible. LT PerV is compressible. VL/Venous Duplex US, Unilateral Interpretation Summary Deep veins of the left lower extremity are patent and compressible segmentally. There is no evidence of left lower extremity deep vein thrombosis. The left great saphenous vein appears patent and compressible segmentally. Ordering Physician: Glenna Dave Referring Physician: Eric Lozano MD Performed By: Garrick Lobo, T 02/09/24 1302 Date Eric Olmos MD CC: TATIANA Saab; Dr. Eric Lozano MD Date Dictated: 02/06/24 1017 Date Transcribed: 02/09/24 1302 Mid Level Developer: Signed Normal [facility] CBC W/Diff, Automatedon 10-2 Absolute Lymph 1.05 X10 3/uL Normal 0.83-4.51 [facility] Comment on above: Performed By: #### L 300.4310 #### [facility] [address] [place], [address] Absolute Neut 3.5 X10 3/uL Normal 2.0-7.7 [facility] Comment on above: Performed By: #### L 300.4310 #### [facility] [address] [place], [address] Basophils/100 WBC (Bld) 0.4 % Normal 0-1 [facility] Comment on above: Performed By: #### L 300.4310 #### [facility] [address] [place], [address] Eosinophils/100 WBC (Bld) 1.7 % Normal 0-5 [facility] Comment on above: Performed By: #### L 300.4310 #### [facility] [address] [place], [address] Erythrocyte distribution width (RBC) [Ratio] 15.4 % High 11.6-14.6 [facility] Comment on above: Performed By: #### L 300.4310 #### [facility] [address] [place], [address] Hematocrit (Bld) [Volume fraction] 35.0 % Low 37-47 [facility] Comment on above: Performed By: #### L 300.4310 #### [facility] [address] [place], [address] Hemoglobin (Bld) [Mass/Vol] 10.5 g/dL Low 12.0-15.0 [facility] Comment on above: Performed By: #### L 300.4310 #### [facility] [address] [place], [address] IG% 0.200 Normal 0.0-0.9 [facility] Comment on above: Result Comment: IG% - Immature Granulocytes (promyelocytes, myelocytes and metamyelocytes) > 1% indicates that a LEFT SHIFT is Present. Performed By: #### L 300.4310 #### [facility] [address] [place], [address] Lymphocytes/100 WBC (Bld) 20.0 % Normal 19-41 [facility] Comment on above: Performed By: #### L 300.4310 #### [facility] [address] [place], [address] MCH (RBC) [Entitic mass] 27.2 pg Normal 27.0-32.0 [facility] Comment on above: Performed By: #### L 300.4310 #### [facility] [address] [place], [address] MCHC (RBC) [Mass/Vol] 30.0 g/dL Low 32-36 [facility] Comment on above: Performed By: #### L 300.4310 #### [facility] [address] [place], [address] MCV (RBC) [Entitic vol] 90.7 fL Normal 81-99 [facility] Comment on above: Performed By: #### L 300.4310 #### [facility] [address] [place], [address] Monocytes/100 WBC (Bld) 10.3 % High 0-10 [facility] Comment on above: Performed By: #### L 300.4310 #### [facility] [address] [place], [address] Neutrophils/100 WBC (Bld) 67.4 % Normal 47-70 [facility] Comment on above: Performed By: #### L 300.4310 #### [facility] [address] [place], [address] Nucleated RBC (Bld) [#/Vol] 0 10*3/uL Normal 0-5 [facility] Comment on above: Performed By: #### L 300.4310 #### [facility] [address] [place], [address] Platelet mean volume (Bld) [Entitic vol] 10.4 fL Normal 6.2-12.0 [facility] Comment on above: Performed By: #### L 300.4310 #### [facility] [address] [place], [address] Platelets (Bld) [#/Vol] 220 10*3/uL Normal 150-450 [facility] Comment on above: Performed By: #### L 300.4310 #### [facility] [address] [place], [address] RBC (Bld) [#/Vol] 3.86 10*6/uL Low 4.2-5.4 [facility] Comment on above: Performed By: #### L 300.4310 #### [facility] [address] [place], [address] RDW SD 50.1 fl High 35.1-43.9 [facility] Comment on above: Performed By: #### L 300.4310 #### [facility] [address] [place], [address] WBC (Bld) [#/Vol] 5.3 10*3/uL Normal 4.4-11.0 [facility] Comment on above: Performed By: #### L 300.4310 #### [facility] [address] [place], [address] Comprehensive Metabolic Prof ilon 02-03-2024 Albumin [Mass/Vol] 3.1 g/dL Low 3.2-5.0 [facility] Comment on above: Performed By: #### L 300.4310 #### [facility] [address] [place], [address] Albumin/Globulin [Mass ratio] 0.8 {ratio} Low 0.9-2.4 [facility] Comment on above: Performed By: #### L 300.4310 #### [facility] [address] [place], [address] ALK P 83 U/L Normal 45-117 [facility] Comment on above: Performed By: #### L 300.4310 #### [facility] [address] [place], [address] ALT [Catalytic activity/Vol] 12 U/L Low 13-56 [facility] Comment on above: Performed By: #### L 300.4310 #### [facility] [address] [place], [address] AST [Catalytic activity/Vol] 16 U/L Normal 15-37 [facility] Comment on above: Performed By: #### L 300.4310 #### [facility] [address] [place], [address] Bilirubin [Mass/Vol] 0.20 mg/dL Normal 0.20-1.00 [facility] Comment on above: Result Comment: For patients on eltrombopag therapy, use of Dimension [place] TBIL is not recommended. Performed By: #### L 300.4310 #### [facility] [address] [place], [address] BUN/CRE 15.6 RATIO Normal 10-20 [facility] Comment on above: Performed By: #### L 300.4310 #### [facility] [address] [place], [address] CA,Total 9.2 mg/dL Normal 8.5-10.1 [facility] Comment on above: Performed By: #### L 300.4310 #### [facility] [address] [place], [address] Chloride [Moles/Vol] 110 mmol/L High 98-107 [facility] Comment on above: Performed By: #### L 300.4310 #### [facility] [address] [place], [address] CO2 [Moles/Vol] 25.0 mmol/L Normal 21.0-32.0 [facility] Comment on above: Performed By: #### L 300.4310 #### [facility] [address] [place], [address] Creatinine [Mass/Vol] 0.84 mg/dL Normal 0.55-1.02 [facility] Comment on above: Result Comment: The validity of the calculated GFR GFRAA in patients over 70 years has not been determined. Clinical correlation is essential. Performed By: #### L 300.4310 #### [facility] [address] [place], [address] EST GFR - AA 86 mL/min Normal >60 [facility] Comment on above: Result Comment: Afri can Mexican GFR Calc Performed By: #### L 300.4310 #### [facility] Laboratory [address] [place], [address] GAP 5 Normal 5-15 [facility] Comment on above: Performed By: #### L 300.4310 #### [facility] Laboratory [address] [place], [address] GFR/1.73 sq M.predicted among non-blacks MDRD (S/P/Bld) [Vol rate/Area] 71 mL/min/{1.73_m2} Normal >60 [facility] Comment on above: Result Comment: Non- GFR Calc Performed By: #### L 300.4310 #### [facility] Laboratory [address] [place], [address] Globulin (S) [Mass/Vol] 3.8 g/dL Normal 2.2-4.2 [facility] Comment on above: Performed By: #### L 300.4310 #### [facility] Laboratory [address] [place], [address] Glucose [Mass/Vol] 99 mg/dL Normal 74-106 [facility] Comment on above: Performed By: #### L 300.4310 #### [facility] Laboratory [address] [place], [address] Potassium [Moles/Vol] 3.8 mmol/L Normal 3.5-5.1 [facility] Comment on above: Performed By: #### L 300.4310 #### [facility] Laboratory [address] [place], [address] Sodium [Moles/Vol] 141 mmol/L Normal 136-145 [facility] Comment on above: Performed By: #### L 300.4310 #### [facility] Laboratory [address] [place], [address] T PROT 6.9 g/dL Normal 6.4-8.2 [facility] Comment on above: Performed By: #### L 300.4310 #### [facility] Laboratory [address] [place], [address] Urea nitrogen [Mass/Vol] 13 mg/dL Normal 7-18 [facility] Comment on above: Performed By: #### L 300.4310 #### [facility] Laboratory [address] [place], [address] MR/BMSLuann 01-28-2024 MR/BMS.BVS [facility] [address] [place], [place] [address] OFFICE VISIT Date of Service: 01/28/24 MR#: [id number] Acct: [id number] Name: KIKO GODFREY Rep #: [id number] : 1950 Provider: TATIANA Saab Age/Sex: 74/F Location: [facility] Status: Signed Intake Vital Signs 08/12/23 10:29 01/06/24 08:47 01/28/24 09:58 Height 5 ft 8 in 5 ft 8 in Weight: 202 lb BP 166/75 H Blood Pressure Location Lt brachial Position Sitting Respiration 16 Pulse 67 Pulse Source Monitor Temp 98.6 F Temp Source Temporal Pulse Oximetry (%) 99 Oxygen Delivery Method room air Intake Visit Reasons: 6 M FU Is patient in pain?: Yes Allergies doxycycline Adverse Reaction (Verified 01/28/24 09:59) PT UNSURE OF REACTION Medications ???Medication ???Instructions ???Recorded ???Confirmed ???Type hydroxychloroquine 200 mg tablet 200 mg PO BIDCM 09/18/13 01/28/24 History pantoprazole 40 mg tablet,delayed 40 mg PO DAILY 02/26/19 01/28/24 History release famotidine 20 mg tablet 20 mg PO BID 11/08/21 01/28/24 History blood pressure monitor #1 ea 11/08/22 01/28/24 Rx leucovorin calcium 15 mg tablet 15 mg PO QWEEK counteract the 11/08/22 01/28/24 History methotrexate prednisone 2.5 mg tablet 2.5 mg PO DAILY 11/08/22 01/28/24 History metoprolol tartrate 50 mg tablet See Rx Instructions .Route 04/09/23 01/28/24 Rx .COMPLEX #180 tabs methotrexate sodium 25 mg/mL 18.75 mg subcut QWEEK arthritis 07/28/23 01/28/24 History injection solution sulfasalazine 500 mg 1,000 mg PO BID 07/28/23 01/28/24 History tablet,delayed release tramadol 50 mg tablet 50 - 100 mg PO Q6H PRN PRN pain 07/28/23 01/28/24 History apixaban 5 mg tablet (Eliquis) 5 mg PO BID 30 days #60 tabs 08/12/23 01/28/24 Rx mecobalamin (vitamin B12) 5,000 3,000 mcg PO QDAY 01/06/24 01/28/24 History mcg chewable tablet Is last menstrual period known: No Post menopausal: Yes Patient : No Have you fallen in the past year?: Yes PFSH Medical History Anxiety and depression Schizophrenia Rheumatoid arthritis Former smoker Pulmonary embolism Transient ischemic attack Paroxysmal supraventricular tachycardia Iron deficiency anemia Obesity (BMI 30-39.9) GERD (gastroesophageal reflux disease) COPD (chronic obstructive pulmonary disease) Surgical History History of radiofrequency ablation procedure for cardiac arrhythmia (03/2003) H/O tubal ligation History of knee surgery History of breast lump removal History of foot surgery Family History Mother Breast cancer Social History household members: none Smoking Status: Former smoker how long ago did patient quit smoking: Quit 15 yrs prior, smoked 2 ppd since 22 yrs old until quit. alcohol intake: never substance use type: does not use HPI HPI HPI: KIKO GODFREY, is a 74 F who presents to the office today for follow-up of DVT/PE. Recall that she was admitted to [facility] on 07/28/23 secondary to provoked bilateral PE's and extensive DVT up to the level of the L FV. She ultimately was not felt to require PE thrombectomy. DVT was provoked by slip and fall resulting to a L knee/ankle fracture in May for which she elected for nonsurgical management and was placed in a LLE immobilizer which remain in place until August 2023. No prior history of VTE. No known hypercoagulable disorder or family history of blood clots. Since her last office visit, she has been discharged from physical therapy and feels that she is back to near baseline activity. She feels that the swelling in her leg is improved though still with some persistent edema which she understands is likely secondary to her surgery and the postthrombotic effects. She has not had any new swelling, lower extremity pain, redness, warmth. She has been tolerating Eliquis without issue. She would like to get off of the Eliquis if possible. ROS General General: No weight change, appetite, fatigue, colon cancer, breast cancer or weakness HEENT HEENT: No difficulty swallowing, eye injury, eye surgery, swollen glands or hoarseness Endo Endocrine: No thyroid disease, diabetes mellitus, thyroid cancer, Hair loss, heat intolerance or cold intolerance Skin Skin: No rash or changing moles Musc Musculoskeletal: Yes rheumatoid arthritis; No back problems, arthritis, gout or joint pain Cardio Cardiovascular: No murmur, pacemaker, heart disease, atrial fibrillation, high blood pressure, heart attack, heart stent, palpitations, shortness of breat with exertion or chest pain Psych (more content not included)... Normal [facility] Cardiology Visit Reporton Cardiology Visit Report [facility] [address] [place] [address] OFFICE VISIT Date of Service: 01/06/24 MR#: [id number] Acct: [id number] Name: KIKO GODRFEY Rep #: [id number] : 1950 Provider: AHSAN cristina Age/Sex: 73/F Location: [facility] Status: Signed HPI HPI History of Present Illness Details: KIKO GODFREY, is a 73 F who presents to the office today for a cardiovascular outpatient follow-up. She has a history of mitral valve prolapse, supraventricular tachycardia- status post radiofrequency ablation in 2002, and hypertension. She had a bilateral PE in July of this year, and was placed on Eliquis 5mg twice daily. From a cardiac standpoint, the patient is doing well. She denies palpitations, chest pain, pressure or heaviness. She denies SOB, Orthopnea, and PND. She does not have bleeding issues; no blood in urine, stool or nosebleeds. She denies any decrease in energy level, myalgias, or claudication. She does not have edema, or sudden weight gain. She denies dizziness, lightheadedness, syncopal or near syncopal episodes, and headaches. Intake Vital Signs 09/06/23 09:12 01/06/24 08:47 01/06/24 08:47 Height 5 ft 8 in 5 ft 8 in 5 ft 8 in Weight: 200 lb BMI 30.4 BP 142/84 H Blood Pressure Location Lt brachial Position Sitting Respiration 18 Pulse 68 Pulse Source Monitor Pulse Oximetry (%) 99 Intake Visit Reasons: 1 Y FU Medicaid Collection Specialist Required: No Is patient in pain?: No Allergies doxycycline Adverse Reaction (Verified 01/06/24 09:01) PT UNSURE OF REACTION Medications ???Medication ???Instructions ???Recorded ???Confirmed ???Type hydroxychloroquine 200 mg tablet 200 mg PO BIDCM 09/18/13 01/06/24 History pantoprazole 40 mg tablet,delayed 40 mg PO DAILY 02/26/19 01/06/24 History release famotidine 20 mg tablet 20 mg PO BID 11/08/21 01/06/24 History blood pressure monitor #1 ea 11/08/22 01/06/24 Rx leucovorin calcium 15 mg tablet 15 mg PO QWEEK counteract the 11/08/22 01/06/24 History methotrexate prednisone 2.5 mg tablet 2.5 mg PO DAILY 11/08/22 01/06/24 History metoprolol tartrate 50 mg tablet See Rx Instructions .Route 04/09/23 01/06/24 Rx .COMPLEX #180 tabs methotrexate sodium 25 mg/mL 18.75 mg subcut QWEEK arthritis 07/28/23 01/06/24 History injection solution sulfasalazine 500 mg 1,000 mg PO BID 07/28/23 01/06/24 History tablet,delayed release tramadol 50 mg tablet 50 - 100 mg PO Q6H PRN PRN pain 07/28/23 01/06/24 History apixaban 5 mg tablet (Eliquis) 5 mg PO BID 30 days #60 tabs 08/12/23 01/06/24 Rx mecobalamin (vitamin B12) 5,000 3,000 mcg PO QDAY 01/06/24 01/06/24 History mcg chewable tablet Have you fallen in the past year?: Yes PFSH Medical History Anxiety and depression Schizophrenia Rheumatoid arthritis Former smoker Pulmonary embolism Transient ischemic attack Paroxysmal supraventricular tachycardia Iron deficiency anemia Obesity (BMI 30-39.9) GERD (gastroesophageal reflux disease) COPD (chronic obstructive pulmonary disease) Surgical History History of radiofrequency ablation procedure for cardiac arrhythmia (03/2003) H/O tubal ligation History of knee surgery History of breast lump removal History of foot surgery Family History Mother Breast cancer Social History household members: none Smoking Status: Former smoker how long ago did patient quit smoking: Quit 15 yrs prior, smoked 2 ppd since 22 yrs old until quit. alcohol intake: never substance use type: does not use ROS Const Const: Negative for fatigue, weakness, fever(s), headache(s), chills, frequent falls, weight gain or weight loss Eyes Eyes: Negative for blind spots, loss of peripheral vision, transient loss of vision, blurry vision, change in vision, double vision, floaters or tunnel vision ENT ENT: Negative for headache(s), dizziness, Nosebleed/epistaxis, balance problems or neck pain Cardio Chest Pain: No Palpitations: No Edema: None Muscle aches with walking: None Resp Respiratory: Negative for SOB with activity, SOB at rest or SOB orthopnea SOB lying down GI GI: Negative nausea, vomiting, heartburn, bloating, vomiting blood/hematemesis, bright, red blood in stools or black,tarry stools Musc Musc: Negative for muscle aches/ myalgia, muscle weakness, joint pain or balance problems Neuro Neuro: Negative for dizziness, lightheadedness, near syncope, syncope, orthostatic symptoms, frequent falls, headache(s), weakness, blurry vision or double vision [place] Hematologic/Lymphat (more content not included)... Normal [facility] Chest WITH Contraston 2023 Chest WITH Contrast [facility] Imaging Services [address] [place] [address] Chest WITH Contrast MR#: [id number] Acct: [id number] Name: KIKO GODFREY Rep #: [id number] : 1950 F 73 From: Craig sampson MD PCP: Dr. Eric Lozano MD Status: REG CLI Study: Chest WITH Contrast Date of Exam: 11/18/23 Exam# [id number] Ordering Dr: Eric Lozano MD [id number] STUDY: CT CHEST WITH CONTRAST REASON FOR EXAM: Female, 73 years old. New restrosternal nodule RADIATION DOSAGE (If Supplied By Facility): CTDIvol = ( 13.01 ) mGy, DLP = ( 483.80 ) mGycm TECHNIQUE: Transaxial imaging was performed following intravenous administration of IV 100mL Isovue-370. Individualized dose optimization techniques were used for this CT. COMPARISON: Comparison is made with prior examination dated July 11, 2021 and September 06, 2023.. FINDINGS: CHEST Stable small benign-appearing bilateral axillary lymph nodes. Stable apical scarring bilaterally. 4 mm noncalcified nodule in the right lung apex. This has decreased in size as compared to prior study. There is no demonstrated pleural abnormality. There are calcifications of the coronary arteries. There are small lymph nodes within the mediastinum, which are normal in size and morphology most compatible with reactive lymph hyperplasia. Normal hilar regions. Normal unenhanced pulmonary arteries. Normal aorta arch and descending thoracic aorta. There are multi-level degenerative changes of the thoracic spine. Small hiatal hernia. Gallstones. CT/Chest WITH Contrast IMPRESSION: Essentially stable examination. Electronically Signed: Craig Lindo MD at 13:26 EDT Reading Location ID and State: [facility] / [place] , Service support , CC: Dr. Eric Lozano MD Mid Level Developer: Signed Normal [facility] CBC W/Diff, Automatedon 07-3 Absolute Lymph 1.37 X10 3/uL Normal 0.83-4.51 [facility] Comment on above: Performed By: #### L 100.0500, L500.2500 #### [facility] Laboratory [address] [place], [address] Absolute Neut 3.0 X10 3/uL Normal 2.0-7.7 [facility] Comment on above: Performed By: #### L 100.0500, L500.2500 #### [facility] Laboratory [address] [place], [address] Basophils/100 WBC (Bld) 0.6 % Normal 0-1 [facility] Comment on above: Performed By: #### L 100.0500, L500.2500 #### [facility] Laboratory [address] [place], [address] Eosinophils/100 WBC (Bld) 1.8 % Normal 0-5 [facility] Comment on above: Performed By: #### L 100.0500, L500.2500 #### [facility] Laboratory [address] [place], [address] Erythrocyte distribution width (RBC) [Ratio] 16.2 % High 11.6-14.6 [facility] Comment on above: Performed By: #### L 100.0500, L500.2500 #### [facility] Laboratory [address] [place], [address] Hematocrit (Bld) [Volume fraction] 34.2 % Low 37-47 [facility] Comment on above: Performed By: #### L 100.0500, L500.2500 #### [facility] Laboratory [address] [place], [address] Hemoglobin (Bld) [Mass/Vol] 10.2 g/dL Low 12.0-15.0 [facility] Comment on above: Performed By: #### L 100.0500, L500.2500 #### [facility] Laboratory [address] [place], [address] IG% 0.400 Normal 0.0-0.9 [facility] Comment on above: Result Comment: IG% - Immature Granulocytes (promyelocytes, myelocytes and metamyelocytes) > 1% indicates that a LEFT SHIFT is Present. Performed By: #### L 100.0500, L500.2500 #### [facility] Laboratory [address] [place], [address] Lymphocytes/100 WBC (Bld) 26.8 % Normal 19-41 [facility] Comment on above: Performed By: #### L 100.0500, L500.2500 #### [facility] Laboratory [address] [place], [address] MCH (RBC) [Entitic mass] 27.3 pg Normal 27.0-32.0 [facility] Comment on above: Performed By: #### L 100.0500, L500.2500 #### [facility] Laboratory [address] [place], [address] MCHC (RBC) [Mass/Vol] 29.8 g/dL Low 32-36 [facility] Comment on above: Performed By: #### L 100.0500, L500.2500 #### [facility] Laboratory [address] [place], [address] MCV (RBC) [Entitic vol] 91.4 fL Normal 81-99 [facility] Comment on above: Performed By: #### L 100.0500, L500.2500 #### [facility] Laboratory [address] [place], [address] Monocytes/100 WBC (Bld) 11.3 % High 0-10 [facility] Comment on above: Performed By: #### L 100.0500, L500.2500 #### [facility] Laboratory [address] [place], [address] Neutrophils/100 WBC (Bld) 59.1 % Normal 47-70 [facility] Comment on above: Performed By: #### L 100.0500, L500.2500 #### [facility] Laboratory [address] [place], [address] Nucleated RBC (Bld) [#/Vol] 0 10*3/uL Normal 0-5 [facility] Comment on above: Performed By: #### L 100.0500, L500.2500 #### [facility] Laboratory [address] [place], [address] Platelet mean volume (Bld) [Entitic vol] 10.4 fL Normal 6.2-12.0 [facility] Comment on above: Performed By: #### L 100.0500, L500.2500 #### [facility] Laboratory [address] [place], [address] Platelets (Bld) [#/Vol] 255 10*3/uL Normal 150-450 [facility] Comment on above: Performed By: #### L 100.0500, L500.2500 #### [facility] Laboratory [address] [place], [address] RBC (Bld) [#/Vol] 3.74 10*6/uL Low 4.2-5.4 [facility] Comment on above: Performed By: #### L 100.0500, L500.2500 #### [facility] Laboratory [address] [place], [address] RDW SD 53.0 fl High 35.1-43.9 [facility] Comment on above: Performed By: #### L 100.0500, L500.2500 #### [facility] Laboratory [address] [place], [address] WBC (Bld) [#/Vol] 5.1 10*3/uL Normal 4.4-11.0 [facility] Comment on above: Performed By: #### L 100.0500, L500.2500 #### [facility] Laboratory [address] [place], [address] Comprehensive Metabolic [facility] 11-12-2023 Albumin [Mass/Vol] 2.8 g/dL Low 3.2-5.0 [facility] Comment on above: Performed By: #### L 100.0500, L500.2500 #### [facility] Laboratory [address] [place], [address] Albumin/Globulin [Mass ratio] 0.7 {ratio} Low 0.9-2.4 [facility] Comment on above: Performed By: #### L 100.0500, L500.2500 #### [facility] Laboratory [address] [place], [address] ALK P 75 U/L Normal 45-117 [facility] Comment on above: Performed By: #### L 100.0500, L500.2500 #### [facility] Laboratory [address] [place], [address] ALT [Catalytic activity/Vol] 14 U/L Normal 13-56 [facility] Comment on above: Performed By: #### L 100.0500, L500.2500 #### [facility] Laboratory [address] [place], [address] AST [Catalytic activity/Vol] 15 U/L Normal 15-37 [facility] Comment on above: Performed By: #### L 100.0500, L500.2500 #### [facility] [address] [place], [address] Bilirubin [Mass/Vol] 0.30 mg/dL Normal 0.20-1.00 [facility] Comment on above: Result Comment: For patients on eltrombopag therapy, use of Dimension [place] TBIL is not recommended. Performed By: #### L 100.0500, L500.2500 #### [facility] [address] [place], [address] BUN/CRE 16.8 RATIO Normal 10-20 [facility] Comment on above: Performed By: #### L 100.0500, L500.2500 #### [facility] Laboratory [address] [place], [address] CA,Total 8.9 mg/dL Normal 8.5-10.1 [facility] Comment on above: Performed By: #### L 100.0500, L500.2500 #### [facility] [address] [place], [address] Chloride [Moles/Vol] 110 mmol/L High 98-107 [facility] Comment on above: Performed By: #### L 100.0500, L500.2500 #### [facility] [address] [place], [address] CO2 [Moles/Vol] 25.0 mmol/L Normal 21.0-32.0 [facility] Comment on above: Performed By: #### L 100.0500, L500.2500 #### [facility] [address] [place], [address] Creatinine [Mass/Vol] 0.83 mg/dL Normal 0.55-1.02 [facility] Comment on above: Result Comment: The validity of the calculated GFR GFRAA in patients over 70 years has not been determined. Clinical correlation is essential. Performed By: #### L 100.0500, L500.2500 #### [facility] [address] [place], [address] EST GFR - AA 87 mL/min Normal >60 [facility] Comment on above: Result Comment: Afri can [place] GFR Calc Performed By: #### L 100.0500, L500.2500 #### [facility] [address] [place], [address] GAP 5 Normal 5-15 [facility] Comment on above: Performed By: #### L 100.0500, L500.2500 #### [facility] [address] [place], [address] GFR/1.73 sq M.predicted among non-blacks MDRD (S/P/Bld) [Vol rate/Area] 72 mL/min/{1.73_m2} Normal >60 [facility] Comment on above: Result Comment: Non- GFR Calc Performed By: #### L 100.0500, L500.2500 #### [facility] [address] [place], [address] Globulin (S) [Mass/Vol] 3.8 g/dL Normal 2.2-4.2 [facility] Comment on above: Performed By: #### L 100.0500, L500.2500 #### [facility] [address] [place], [address] Glucose [Mass/Vol] 93 mg/dL Normal 74-106 [facility] Comment on above: Performed By: #### L 100.0500, L500.2500 #### [facility] [address] [place], [address] Potassium [Moles/Vol] 3.9 mmol/L Normal 3.5-5.1 [facility] Comment on above: Performed By: #### L 100.0500, L500.2500 #### [facility] [address] [place], [address] Sodium [Moles/Vol] 140 mmol/L Normal 136-145 [facility] Comment on above: Performed By: #### L 100.0500, L500.2500 #### [facility] [address] [place], [address] T PROT 6.6 g/dL Normal 6.4-8.2 [facility] Comment on above: Performed By: #### L 100.0500, L500.2500 #### [facility] [address] [place], [address] Urea nitrogen [Mass/Vol] 14 mg/dL Normal 7-18 [facility] Comment on above: Performed By: #### L 100.0500, L500.2500 #### [facility] [address] [place], [address] Protein Electroph, Son 10-27 Albumin [Mass/Vol] 3.0 g/dL Normal 2.9-4.4 [facility] Comment on above: Performed By: #### L 300.4310 #### [facility] [address] [place], [address] Albumin/Globulin [Mass ratio] 1.0 {ratio} Normal 0.7-1.7 [facility] Comment on above: Performed By: #### L 300.4310 #### [facility] [address] [place], [address] ALPHA-1 GLOBUL 0.3 g/dL Normal 0.0-0.4 [facility] Comment on above: Performed By: #### L 300.4310 #### [facility] [address] [place], [address] ALPHA-2 GLOBUL 0.9 g/dL Normal 0.4-1.0 [facility] Comment on above: Performed By: #### L 300.4310 #### [facility] [address] [place], [address] BETA GLOBULIN 0.9 g/dL Normal 0.7-1.3 [facility] Comment on above: Performed By: #### L 300.4310 #### [facility] [address] [place], [address] GAMMA GLOBULIN 1.1 g/dL Normal 0.4-1.8 [facility] Comment on above: Performed By: #### L 300.4310 #### [facility] [address] [place], [address] Globulin (S) [Mass/Vol] 3.1 g/dL Normal 2.2-3.9 [facility] Comment on above: Performed By: #### L 300.4310 #### [facility] [address] [place], [address] INTERPRETATION Comment Normal . [facility] Comment on above: Result Comment: Prot ein electrophoresis scan will follow via computer, mail, or guest services director delivery. Performed By: #### L 300.4310 #### [facility] [address] [place], [address] M-SPIKE Not Observed Normal Not Observed [facility] Comment on above: Performed By: #### L 300.4310 #### [facility] [address] [place], [address] NOTE: Comment Normal . [facility] Comment on above: Result Comment: The SPE pattern appears unremarkable. Evidence of monoclonal protein is not apparent. Performed at: [address] [facility] [address] [id number] [employer] Sales Consultant: Wilfredo Apodaca PhD, Phone: [phone] Performed By: #### L 300.4310 #### [facility] [address] [place], [address] Protein [Mass/Vol] 6.1 g/dL Normal 6.0-8.5 [facility] Comment on above: Performed By: #### L 300.4310 #### [facility] [address] [place], [address] CBC W/Diff, Automatedon 07-1 5-2023 Absolute Lymph 1.53 X10 3/uL Normal 0.83-4.51 [facility] Comment on above: Performed By: #### L 300.4310 #### [facility] [address] [place], [address] Absolute Neut 3.3 X10 3/uL Normal 2.0-7.7 [facility] Comment on above: Performed By: #### L 300.4310 #### [facility] [address] [place], [address] Basophils/100 WBC (Bld) 1.1 % High 0-1 [facility] Comment on above: Performed By: #### L 300.4310 #### [facility] [address] [place], [address] Eosinophils/100 WBC (Bld) 1.1 % Normal 0-5 [facility] Comment on above: Performed By: #### L 300.4310 #### [facility] [address] [place], [address] Erythrocyte distribution width (RBC) [Ratio] 15.9 % High 11.6-14.6 [facility] Comment on above: Performed By: #### L 300.4310 #### [facility] [address] [place], [address] Hematocrit (Bld) [Volume fraction] 34.5 % Low 37-47 [facility] Comment on above: Performed By: #### L 300.4310 #### [facility] [address] [place], [address] Hemoglobin (Bld) [Mass/Vol] 10.2 g/dL Low 12.0-15.0 [facility] Comment on above: Performed By: #### L 300.4310 #### [facility] [address] [place], [address] IG% 0.400 Normal 0.0-0.9 [facility] Comment on above: Result Comment: IG% - Immature Granulocytes (promyelocytes, myelocytes and metamyelocytes) > 1% indicates that a LEFT SHIFT is Present. Performed By: #### L 300.4310 #### [facility] [address] [place], [address] Lymphocytes/100 WBC (Bld) 27.9 % Normal 19-41 [facility] Comment on above: Performed By: #### L 300.4310 #### [facility] [address] [place], [address] MCH (RBC) [Entitic mass] 27.5 pg Normal 27.0-32.0 [facility] Comment on above: Performed By: #### L 300.4310 #### [facility] [address] [place], [address] MCHC (RBC) [Mass/Vol] 29.6 g/dL Low 32-36 [facility] Comment on above: Performed By: #### L 300.4310 #### [facility] [address] [place], [address] MCV (RBC) [Entitic vol] 93.0 fL Normal 81-99 [facility] Comment on above: Performed By: #### L 300.4310 #### [facility] [address] [place], [address] Monocytes/100 WBC (Bld) 9.3 % Normal 0-10 [facility] Comment on above: Performed By: #### L 300.4310 #### [facility] [address] [place], [address] Neutrophils/100 WBC (Bld) 60.2 % Normal 47-70 [facility] Comment on above: Performed By: #### L 300.4310 #### [facility] [address] [place], [address] Nucleated RBC (Bld) [#/Vol] 0 10*3/uL Normal 0-5 [facility] Comment on above: Performed By: #### L 300.4310 #### [facility] [address] [place], [address] Platelet mean volume (Bld) [Entitic vol] 10.0 fL Normal 6.2-12.0 [facility] Comment on above: Performed By: #### L 300.4310 #### [facility] [address] [place], [address] Platelets (Bld) [#/Vol] 265 10*3/uL Normal 150-450 [facility] Comment on above: Performed By: #### L 300.4310 #### [facility] [address] [place], [address] RBC (Bld) [#/Vol] 3.71 10*6/uL Low 4.2-5.4 [facility] Comment on above: Performed By: #### L 300.4310 #### [facility] [address] [place], [address] RDW SD 52.8 fl High 35.1-43.9 [facility] Comment on above: Performed By: #### L 300.4310 #### [facility] [address] [place], [address] WBC (Bld) [#/Vol] 5.5 10*3/uL Normal 4.4-11.0 [facility] Comment on above: Performed By: #### L 300.4310 #### [facility] [address] [place], [address] CRPon 10-27-2023 C-REACTIVE PROT 11.60 mg/L High 0.0-3.0 [facility] Comment on above: Order Comment: UNKN Result Comment: C-Re active Protein (CRP) provides useful information for the diagnosis, therapy and monitoring of inflammatory processes and associated diseases. For the evaluation of Relative Risk for Cardiovascular Disease, a High Sensitivity CRP (HSCRP) should be ordered. Performed By: #### L 300.4310 #### [facility] [address] [place], [address] Ferritinon 10-27-2023 Ferritin [Mass/Vol] 31 ng/mL Normal 8-252 [facility] Comment on above: Order Comment: UNKN Performed By: #### L 300.4310 #### [facility] [address] [place], [address] Folates, (Folic Acid)on 10-12 FOLATES 37.70 ng/mL Normal 3.1-55.4 [facility] Comment on above: Order Comment: UNKN Performed By: #### L 300.4310 #### [facility] [address] [place], [address] Free T3on 10-27-2023 Free T3 [Mass/Vol] 2.6 pg/mL Normal 2.18-3.98 [facility] Comment on above: Order Comment: UNKN Performed By: #### L 300.4310 #### [facility] [address] [place], [address] Rheumatoid Factoron 10-27-19 24 RHEUMATOID FAC 328.0 IU/mL High <15 [facility] Comment on above: Order Comment: UNKN Performed By: #### L 300.4310 #### [facility] [address] [place], [address] T4 Free Directon 10-27-2023 T4 FREE DIRECT 1.15 ng/dL Normal 0.76-1.46 [facility] Comment on above: Order Comment: UNKN Performed By: #### L 300.4310 #### [facility] [address] [place], [place], [address] Thyroid Stim Hormone (TSH)on 10-27-2023 TSH 3.44 uIU/mL Normal 0.358-3.74 [facility] Comment on above: Order Comment: UNKN Performed By: #### L 300.4310 #### [facility] [address] [place], [address] Vitamin B12on 10-27-2023 Cobalamin (Vitamin B12) [Mass/Vol] 261 pg/mL Normal 211-911 [facility] Comment on above: Performed By: #### L 300.4310 #### [facility] [address] [place], [id number] CNOVon 10-13-2023 CNOV Office Visit (UCWSTR ) -------- KIKO GODFREY ([id number]) 1950 F Date Time Provider Department 10/13/23 9:15 AM [facility] During your visit today, we recorded the following information about you: Temperature Pulse Respiration Blood pressure 98.5 degrees 96/minute 20/minute 128/80 Weight 89.2 kg Katharine Valencia APRN.CNP 10/13/2023 10:11 AM Signed This note was created using NoteWriter. Subjective Kiko Godfrey is a 73 year old female. [...] history is provided by the patient. No multi disciplined language analyst was used. Cough This is a new [...] and my (more content not included)... Normal [facility] XR CHEST 2V FRONTAL/LATon XR CHEST 2V [...] study may be obtained for further evaluation. Mid Level Developer: LISA Transcribe Date/Time: Oct 13 2023 9:49A Dictated by : PATSY LEVY MD This examination was interpreted and the report reviewed and electronically signed by: PATSY LEVY MD on Oct 13 2023 9:51AM EST [id number] Normal [facility] XR Chest PA and Lateralon IMPRESSION: Interval increase in size of nodular opacity in the inferior retrosternal space. A dedicated CT chest study may be obtained for further evaluation. Mid Level Developer: [facility] Transcribe Date/Time: Oct 13 2023 9:49A Dictated by : PATSY LEVY MD This examination was interpreted and the report reviewed and electronically signed by: PATSY LEVY MD on Oct 13 2023 9:51AM [facility] DIVISION OF RADIOLOGY * * *Final [...] shows degenerative changes. DIVISION OF RADIOLOGY Provider, [facility] - 10/13/2023 * * *Final Report* [...] study may be obtained for further evaluation. Mid Level Developer: LISA Transcribe Date/Time: Oct 13 2023 9:49A Dictated by : PATSY LEVY MD This examination was interpreted and the report reviewed and electronically signed by: PATSY LEVY MD on Oct 13 2023 9:51AM EST [facility] Radiology Study observation (narrative) [facility] XR Chest PA and LateralOrder ed By: [facility] Provider on 10-13-2023 [facility] 12 Lead EKGon 09-06-2023 12 Lead EKG [facility] Cardiovascular Services [address] [place] [address] 12 Lead EKG 09/06/23 0950 MR#: [id number] Acct: [id number] Name: KIKO GODFREY Rep #: [id number] : 1950 73 From: Haider Parson MD Attending Dr: Status: DEP ER Ordering Dr: Dale Durant MD Date: 09/06/23 Location: ED Sex: F C Admitted: Test Reason : SOB Blood Pressure : / mmHG Vent. Rate : 059 BPM Atrial Rate : 059 BPM P-R Int : 160 ms QRS Dur : 074 ms QT Int : 380 ms P-R-T Axes : 046 056 030 degrees QTc Int : 376 ms Sinus bradycardia with Premature supraventricular complexes Nonspecific ST and T wave abnormality Abnormal ECG Confirmed by Haider Parson ([id number]), editor book KAIDEN CALIXTO ([id number]) on 09/08/2023 8:16:14 AM Referred By: Confirmed By:Haider Parson 09/08/23 0816 Date Haider Parson MD CC: Dr. Eric Lozano MD; Dr. Dale Durant MD Signed Normal [facility] Basic Metabolic Profile (BMP )on 09-06-2023 BUN/CRE 11.4 RATIO Normal 10-20 [facility] Comment on above: Performed By: #### L 100.0500, L500.2500 #### [facility] [address] [place], [address] CA,Total 9.8 mg/dL Normal 8.5-10.1 [facility] Comment on above: Performed By: #### L 100.0500, L500.2500 #### [facility] [address] [place], [address] Chloride [Moles/Vol] 106 mmol/L Normal 98-107 [facility] Comment on above: Performed By: #### L 100.0500, L500.2500 #### [facility] [address] [place], [address] CO2 [Moles/Vol] 25.0 mmol/L Normal 21.0-32.0 [facility] Comment on above: Performed By: #### L 100.0500, L500.2500 #### [facility] [address] [place], [address] Creatinine [Mass/Vol] 0.96 mg/dL Normal 0.55-1.02 [facility] Comment on above: Result Comment: The validity of the calculated GFR GFRAA in patients over 70 years has not been determined. Clinical correlation is essential. Performed By: #### L 100.0500, L500.2500 #### [facility] [address] [place], [address] EST GFR - AA 73 mL/min Normal >60 [facility] Comment on above: Result Comment: Afri can Mexican GFR Calc Performed By: #### L 100.0500, L500.2500 #### [facility] [address] [place], [address] GAP 6 Normal 5-15 [facility] Comment on above: Performed By: #### L 100.0500, L500.2500 #### [facility] [address] [place], [address] GFR/1.73 sq M.predicted among non-blacks MDRD (S/P/Bld) [Vol rate/Area] 61 mL/min/{1.73_m2} Normal >60 [facility] Comment on above: Result Comment: Non- GFR Calc Performed By: #### L 100.0500, L500.2500 #### [facility] [address] [place], [address] Glucose [Mass/Vol] 111 mg/dL High 74-106 [facility] Comment on above: Result Comment: Fast ing Glucose result from 100 to 125 mg/dL suggests IMPAIRED HOMEOSTASIS per A.D.A. criteria. Performed By: #### L 100.0500, L500.2500 #### [facility] [address] [place], [address] Potassium [Moles/Vol] 4.6 mmol/L Normal 3.5-5.1 [facility] Comment on above: Performed By: #### L 100.0500, L500.2500 #### [facility] [address] [place], [address] Sodium [Moles/Vol] 137 mmol/L Normal 136-145 [facility] Comment on above: Performed By: #### L 100.0500, L500.2500 #### [facility] [address] [place], [address] Urea nitrogen [Mass/Vol] 11 mg/dL Normal 7-18 [facility] Comment on above: Performed By: #### L 100.0500, L500.2500 #### [facility] [address] [place], [address] CBC W/Diff, Automatedon 05-2 -2023 Absolute Lymph 0.85 X10 3/uL Normal 0.83-4.51 [facility] Comment on above: Performed By: #### L 100.0500, L500.2500 #### [facility] [address] [place], [address] Absolute Neut 5.8 X10 3/uL Normal 2.0-7.7 [facility] Comment on above: Performed By: #### L 100.0500, L500.2500 #### [facility] [address] [place], [address] Basophils/100 WBC (Bld) 0.5 % Normal 0-1 [facility] Comment on above: Performed By: #### L 100.0500, L500.2500 #### [facility] [address] [place], [address] Eosinophils/100 WBC (Bld) 0.5 % Normal 0-5 [facility] Comment on above: Performed By: #### L 100.0500, L500.2500 #### [facility] [address] [place], [address] Erythrocyte distribution width (RBC) [Ratio] 15.9 % High 11.6-14.6 [facility] Comment on above: Performed By: #### L 100.0500, L500.2500 #### [facility] [address] [place], [address] Hematocrit (Bld) [Volume fraction] 37.2 % Normal 37-47 [facility] Comment on above: Performed By: #### L 100.0500, L500.2500 #### [facility] [address] [place], [address] Hemoglobin (Bld) [Mass/Vol] 11.1 g/dL Low 12.0-15.0 [facility] Comment on above: Performed By: #### L 100.0500, L500.2500 #### [facility] [address] [place], [address] IG% 0.500 Normal 0.0-0.9 [facility] Comment on above: Result Comment: IG% - Immature Granulocytes (promyelocytes, myelocytes and metamyelocytes) > 1% indicates that a LEFT SHIFT is Present. Performed By: #### L 100.0500, L500.2500 #### [facility] [address] [place], [address] Lymphocytes/100 WBC (Bld) 11.3 % Low 19-41 [facility] Comment on above: Performed By: #### L 100.0500, L500.2500 #### [facility] [address] [place], [address] MCH (RBC) [Entitic mass] 27.0 pg Normal 27.0-32.0 [facility] Comment on above: Performed By: #### L 100.0500, L500.2500 #### [facility] [address] [place], [address] MCHC (RBC) [Mass/Vol] 29.8 g/dL Low 32-36 [facility] Comment on above: Performed By: #### L 100.0500, L500.2500 #### [facility] [address] [place], [address] MCV (RBC) [Entitic vol] 90.5 fL Normal 81-99 [facility] Comment on above: Performed By: #### L 100.0500, L500.2500 #### [facility] [address] [place], [address] Monocytes/100 WBC (Bld) 9.5 % Normal 0-10 [facility] Comment on above: Performed By: #### L 100.0500, L500.2500 #### [facility] [address] [place], [address] Neutrophils/100 WBC (Bld) 77.7 % High 47-70 [facility] Comment on above: Performed By: #### L 100.0500, L500.2500 #### [facility] [address] [place], [address] Nucleated RBC (Bld) [#/Vol] 0 10*3/uL Normal 0-5 [facility] Comment on above: Performed By: #### L 100.0500, L500.2500 #### [facility] [address] [place], [address] Platelet mean volume (Bld) [Entitic vol] 9.9 fL Normal 6.2-12.0 [facility] Comment on above: Performed By: #### L 100.0500, L500.2500 #### [facility] [address] [place], [address] Platelets (Bld) [#/Vol] 248 10*3/uL Normal 150-450 [facility] Comment on above: Performed By: #### L 100.0500, L500.2500 #### [facility] [address] [place], [address] RBC (Bld) [#/Vol] 4.11 10*6/uL Low 4.2-5.4 [facility] Comment on above: Performed By: #### L 100.0500, L500.2500 #### [facility] [address] [place], [address] RDW SD 51.8 fl High 35.1-43.9 [facility] Comment on above: Performed By: #### L 100.0500, L500.2500 #### [facility] [address] [place], [address] WBC (Bld) [#/Vol] 7.5 10*3/uL Normal 4.4-11.0 [facility] Comment on above: Performed By: #### L 100.0500, L500.2500 #### [facility] [address] [place], [address] CTA Chest W/WO Contraston CTA Chest W/WO Contrast [facility] Imaging Services [address] [place] [address] CTA Chest W/WO Contrast MR#: [id number] Acct: [id number] Name: KIKO GODFREY Rep #: [id number] : 1950 F 73 From: Bryan Tucker MD PCP: Dr. Eric Lozano MD Status: REG ER Study: CTA Chest W/WO Contrast Date of Exam: 09/06/23 Exam# [id number] Ordering Dr: Dale Durant MD ADDENDUM by Dr. Bryan Tucker MD on 09/06/23 at 1118 [id number] STUDY: CTA CHEST REASON FOR EXAM: Female, 73 years old. Right sided pleuritic CP with PE hx RADIATION DOSAGE (If Supplied By Facility): CTDIvol = ( 12.42 ) mGy, DLP = ( 416.30 ) mGycm TECHNIQUE: The examination was performed with the intravenous administration of IV 100mL Isovue-370. Post-processing of the angiographic images was performed, with multiplanar reformation and 3D reconstruction. Individualized dose optimization techniques were used for this CT. COMPARISON: July 28, 2023 FINDINGS: Normal enhancement of the main pulmonary artery and right and left pulmonary arteries. There are small defects involving third and fourth order branches of left pulmonary arteries consistent with pulmonary embolism. There is atherosclerotic calcification of the aortic arch with tortuosity. There is no demonstrated aortic dissection. There are calcifications of the coronary arteries. The right ventricle to the left ventricle ratio is 0.9. Normal mediastinum. Normal hilar regions. Normal visualized trachea and bronchi. The lungs are well expanded. There is stable 0.5 cm benign-appearing right upper lobe nodule. There is mild left upper lobe atelectasis. Normal pleura. Normal chest wall structures. There are degenerative changes of thoracic spine. There is increased kyphosis of the thoracic spine. There is a solitary gallstone. 09/06/23 1118 Date cc: Dr. Eric Lozaon MD; Dr. Dale Durant MD * Signed ADDENDUM by Dr. Bryan Tucker MD on 09/06/[address]/CTA Chest W/WO Contrast IMPRESSION: Abnormal CTA chest examination, with left pulmonary embolism, improved compared to the prior exam. N.B. : The above Results were Read Back by Bryan Tucker MD to Dale Durant MD, and understanding confirmed on 09/06/2023 11:27:30 (ET). Electronically Signed: Bryan Tucker MD at 11:18 EDT , 09/06/23 1134 Date cc: Dr. Eric Lozano MD; Dr. Dale Durant MD * Signed We are attempting to reach an attending provider to discuss findings. An addendum with communication details will be sent when the communication is complete. [id number] STUDY: CTA CHEST REASON FOR EXAM: Female, 73 years old. Right sided pleuritic CP with PE hx RADIATION DOSAGE (If Supplied By Facility): CTDIvol = ( 12.42 ) mGy, DLP = ( 416.30 ) mGycm TECHNIQUE: The examination was performed with the intravenous administration of IV 100mL Isovue-370. Post-processing of the angiographic images was performed, with multiplanar reformation and 3D reconstruction. Individualized dose optimization techniques were used for this CT. COMPARISON: July 28, 2023 FINDINGS: Normal enhancement of the main pulmonary artery and right and left pulmonary arteries. There are small defects involving third and fourth order branches of left pulmonary arteries consistent with pulmonary embolism. There is atherosclerotic calcification of the aortic arch with tortuosity. There is no demonstrated aortic dissection. There are calcifications of the coronary arteries. The right ventricle to the left ventricle ratio is 0.9. Normal mediastinum. Normal hilar regions. Normal visualized trachea and bronchi. The lungs are well expanded. There is stable 0.5 cm benign-appearing right upper lobe nodule. There is mild left upper lobe atelectasis. Normal pleura. Normal chest wall structures. There are degenerative changes of thoracic spine. There is increased kyphosis of the thoracic spine. There is a solitary gallstone. CT/CTA Chest W/WO Contrast IMPRESSION: Abnormal CTA chest examination, with left pulmonary embolism, improved compared to the prior exam. Electronically Signed: Bryan Tucker MD at 11:18 EDT Reading Location ID and State: [address] [place] [address] , Service support , CC: Dr. Eric Lozano MD; Dr. Dale Durant MD Mid Level Developer: Signed Normal [facility] Emergency Department Summary on 09-06-2023 Emergency Department Summary [facility] Medical Records Department [address] [place] [address] Emergency Department Summary 09/06/23 MR#: [id number] Acct: [id number] Name: KIKO GODFREY Rep #: [id number] : 1950 73 From: Dale Durant MD PCP: Dr. Eric Lozano MD Status:REG ER Location: ED HPI History of Present Illness Chief Complaint: Shortness of Breath Detail of Chief Complaint: Right lung pain. Informant: patient Onset/Context/Timing Onset: Today and Yesterday Context: gradual Timing: Continuous Current Severity: Mild Maximum Severity: Mild Worsened by: other (Deep breathing.) Relieved by: Nothing Associated Symptoms Negative for cough Chest Pain: Positive for Sharp, Stabbing and - (Right-sided worse with deep breathing. 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 Was hospitalized in mid July here. She has been on Eliquis 5 mg twice daily. States last time today has had right-sided pleuritic chest pain. No significant shortness of breath. No hemoptysis. No leg swelling that is new. PE Risk Factors: Positive for Prior DVT or PE and Recent immobilization; Negative for Cancer, OCP + Smoking + > 35, Recent surgery or Recent travel Prior similar symptoms: Yes Recent Illness/Hospitalization: Yes PFSH PFSH Medical History Anxiety and depression Schizophrenia Rheumatoid arthritis Former smoker Pulmonary embolism Transient ischemic attack Paroxysmal supraventricular tachycardia Iron deficiency anemia Obesity (BMI 30-39.9) GERD (gastroesophageal reflux disease) COPD (chronic obstructive pulmonary disease) Home Medications ???Medication ???Instructions ???Recorded ???Last Taken ???Type hydroxychloroquine 200 mg tablet 200 mg PO BIDCM 09/18/13 09/17/13 20:00 History pantoprazole 40 mg tablet,delayed 40 mg PO DAILY 02/26/19 07/28/23 History release famotidine 20 mg tablet 20 mg PO BID 11/08/21 07/28/23 History blood pressure monitor #1 ea 11/08/22 Unknown Rx leucovorin calcium 15 mg tablet 15 mg PO QWEEK counteract the 11/08/22 07/24/23 History methotrexate prednisone 2.5 mg tablet 2.5 mg PO DAILY 11/08/22 07/28/23 History metoprolol tartrate 50 mg tablet See Rx Instructions .Route 04/09/23 07/28/23 Rx .COMPLEX #180 tabs methotrexate sodium 25 mg/mL 18.75 mg subcut QWEEK arthritis 07/28/23 07/23/23 History injection solution sulfasalazine 500 mg 1,000 mg PO BID 07/28/23 07/28/23 History tablet,delayed release tramadol 50 mg tablet 50 - 100 mg PO Q6H PRN PRN pain 07/28/23 Unknown History apixaban 5 mg tablet (Eliquis) 5 mg PO BID 30 days #60 tabs 08/12/23 Unknown Rx Allergy/AdvReac Type Severity Reaction Status Date / Time doxycycline AdvReac PT UNSURE Verified 09/06/23 09:14 OF REACTION Family History Mother Breast cancer Surgical History History of radiofrequency ablation procedure for cardiac arrhythmia (03/2003) H/O tubal ligation History of knee surgery History of breast lump removal History of foot surgery Social History household members: none Smoking Status: Former smoker how long ago did patient quit smoking: Quit 15 yrs prior, smoked 2 ppd since 22 yrs old until quit. alcohol intake: never substance use type: does not use ROS ROS ED ROS Narrative Right-sided chest pain. Worse with deep inspiration. Review of Systems ROS Unobtainable: Denies due to encephalopathy Constitutional Constitutional ED: Denies chills or fever(s) Eyes Eyes: Denies blurry vision ENT ENT ED: Denies ear pain Cardiovascular Cardiovascular: Reports chest pain; Denies palpitations Respiratory/Chest Respiratory/Chest: Denies cough Gastrointestinal Gastrointestinal: Denies abdominal pain Genitourinary Genitourinary ED: Denies dysuria or hematuria Musculoskeletal Musculoskeletal: Denies arthralgias Integumentary Denies abscess or Abrasions Neurologic Neurologic: Denies headache(s) Psychiatric Psychiatric: Denies anxiety or depression Endocrine Endocrinology: Denies cold intolerance Hematologic/Lymphatic Hematologic/Lymphatic: Denies easy bleeding, easy bruising or lymphadenopathy Allergic/Immunologic Allergic/Immunologic ED: Denies mouth swelling, tongue swelling, urticaria or other EXAM Physical Exam Narrative Exam Narrative: 73-year-old female no acute distress vital signs stable afebrile. Pulse ox 100% on room air no hypoxia. HEENT exam unremarkable. Neck nontender. No JVD. Lungs clear to auscultation bilaterally. Heart regular rhythm rate about 60 no murmur. Chest wall and ribs (more content not included)... Normal [facility] Absolute lymphocyte countOrd ered By: Sheeba Velasco on 08-14-2023 Lymphocytes Auto (Unsp spec) [#/Vol] 0.70 10*3/uL 0.83-4.51 [facility] Automated lymphocyte count a s percentage of total leukocytesOrdered By: Sheeba Velasco on 08-14-2023 Lymphocytes/100 WBC Auto (Unsp spec) 13.5 % 19-41 [facility] Basophil percentageOrdered B y: Sheeba Velasco on 08-14-2023 Basophils/100 WBC (Bld) 1.0 % 0-1 [facility] Bilirubin [Mass/Vol] 0.40 mg/dL 0.20-1.00 [facility] Comment on above: For patients on eltr ombopag therapy, use of Dimension [place] TBIL is not recommended. Chloride [Moles/Vol] 103 mmol/L 98-107 [facility] Eosinophils/100 WBC (Bld) 0.4 % 0-5 [facility] Glucose [Mass/Vol] 105 mg/dL 74-106 [facility] Comment on above: Fasting Glucose resu lt from 100 to 125 mg/dL suggests IMPAIRED HOMEOSTASIS per A.D.A. criteria. Hemoglobin (Bld) [Mass/Vol] 11.3 g/dL 12.0-15.0 [facility] Monocytes/100 WBC (Bld) 8.9 % 0-10 [facility] Neutrophils (Bld) [#/Vol] 3.9 10*3/uL 2.0-7.7 [facility] Neutrophils/100 WBC (Bld) 76.0 % 47-70 [facility] Potassium [Moles/Vol] 4.1 mmol/L 3.5-5.1 [facility] Protein [Mass/Vol] 7.4 g/dL 6.4-8.2 [facility] Sodium [Moles/Vol] 134 mmol/L 136-145 [facility] WBC (Bld) [#/Vol] 5.2 10*3/uL 4.4-11.0 [facility] CBC W/Diff, Automatedon 05-0 2-2023 Absolute Lymph 0.70 X10 3/uL Low 0.83-4.51 [facility] Comment on above: Performed By: #### L 100.0100, L500.4050 ####[facility] [address] [place], [address] Absolute Neut 3.9 X10 3/uL Normal 2.0-7.7 [facility] Comment on above: Performed By: #### L 100.0100, L500.4050 ####[facility] [address] [place], [address] Basophils/100 WBC (Bld) 1.0 % Normal 0-1 [facility] Comment on above: Performed By: #### L 100.0100, L500.4050 ####[facility] [address] [place], [address] Eosinophils/100 WBC (Bld) 0.4 % Normal 0-5 [facility] Comment on above: Performed By: #### L 100.0100, L500.4050 ####[facility] [address] [place], [address] Erythrocyte distribution width (RBC) [Ratio] 15.0 % High 11.6-14.6 [facility] Comment on above: Performed By: #### L 100.0100, L500.4050 ####[facility] [address] [place], [address] Hematocrit (Bld) [Volume fraction] 37.5 % Normal 37-47 [facility] Comment on above: Performed By: #### L 100.0100, L500.4050 ####[facility] [address] [place], [address] Hemoglobin (Bld) [Mass/Vol] 11.3 g/dL Low 12.0-15.0 [facility] Comment on above: Performed By: #### L 100.0100, L500.4050 ####[facility] [address] [place], [address] IG% 0.200 Normal 0.0-0.9 [facility] Comment on above: Result Comment: IG% - Immature Granulocytes (promyelocytes, myelocytes and metamyelocytes) > 1% indicates that a LEFT SHIFT is Present. Performed By: #### L 100.0100, L500.4050 ####[facility] [address] [place], [address] Lymphocytes/100 WBC (Bld) 13.5 % Low 19-41 [facility] Comment on above: Performed By: #### L 100.0100, L500.4050 ####[facility] [address] [place], [address] MCH (RBC) [Entitic mass] 27.0 pg Normal 27.0-32.0 [facility] Comment on above: Performed By: #### L 100.0100, L500.4050 ####[facility] [address] [place], [address] MCHC (RBC) [Mass/Vol] 30.1 g/dL Low 32-36 [facility] Comment on above: Performed By: #### L 100.0100, L500.4050 ####[facility] [address] [place], [address] MCV (RBC) [Entitic vol] 89.5 fL Normal 81-99 [facility] Comment on above: Performed By: #### L 100.0100, L500.4050 ####[facility] [address] [place], [address] Monocytes/100 WBC (Bld) 8.9 % Normal 0-10 [facility] Comment on above: Performed By: #### L 100.0100, L500.4050 ####[facility] [address] [place], [address] Neutrophils/100 WBC (Bld) 76.0 % High 47-70 [facility] Comment on above: Performed By: #### L 100.0100, L500.4050 ####[facility] [address] [place], [address] Nucleated RBC (Bld) [#/Vol] 0 10*3/uL Normal 0-5 [facility] Comment on above: Performed By: #### L 100.0100, L500.4050 ####[facility] [address] [place], [address] Platelet mean volume (Bld) [Entitic vol] 10.5 fL Normal 6.2-12.0 [facility] Comment on above: Performed By: #### L 100.0100, L500.4050 ####[facility] [address] [place], [address] Platelets (Bld) [#/Vol] 285 10*3/uL Normal 150-450 [facility] Comment on above: Performed By: #### L 100.0100, L500.4050 ####[facility] [address] [place], [address] RBC (Bld) [#/Vol] 4.19 10*6/uL Low 4.2-5.4 [facility] Comment on above: Performed By: #### L 100.0100, L500.4050 ####[facility] [address] [place], [address] RDW SD 48.7 fl High 35.1-43.9 [facility] Comment on above: Performed By: #### L 100.0100, L500.4050 ####[facility] [address] [place], [address] WBC (Bld) [#/Vol] 5.2 10*3/uL Normal 4.4-11.0 [facility] Comment on above: Performed By: #### L 100.0100, L500.4050 ####[facility] [address] [place], [address] Comprehensive Metabolic Prof [facility] 08-14-2023 Albumin [Mass/Vol] 2.8 g/dL Low 3.2-5.0 [facility] Comment on above: Performed By: #### L 100.0100, L500.4050 ####[facility] [address] [place], [address] Albumin/Globulin [Mass ratio] 0.6 {ratio} Low 0.9-2.4 [facility] Comment on above: Performed By: #### L 100.0100, L500.4050 ####[facility] [address] [place], [address] ALK P 66 U/L Normal 45-117 [facility] Comment on above: Performed By: #### L 100.0100, L500.4050 ####[facility] [address] [place], [address] ALT [Catalytic activity/Vol] 11 U/L Low 13-56 [facility] Comment on above: Performed By: #### L 100.0100, L500.4050 ####[facility] [address] [place], [address] AST [Catalytic activity/Vol] 16 U/L Normal 15-37 [facility] Comment on above: Performed By: #### L 100.0100, L500.4050 ####[facility] [address] [place], [address] Bilirubin [Mass/Vol] 0.40 mg/dL Normal 0.20-1.00 [facility] Comment on above: Result Comment: For patients on eltrombopag therapy, use of Dimension [place] TBIL is not recommended. Performed By: #### L 100.0100, L500.4050 ####[facility] [address] [place], [address] BUN/CRE 12.9 RATIO Normal 10-20 [facility] Comment on above: Performed By: #### L 100.0100, L500.4050 ####[facility] [address] [place], [address] CA,Total 9.5 mg/dL Normal 8.5-10.1 [facility] Comment on above: Performed By: #### L 100.0100, L500.4050 ####[facility] [address] [place], [address] Chloride [Moles/Vol] 103 mmol/L Normal 98-107 [facility] Comment on above: Performed By: #### L 100.0100, L500.4050 ####[facility] [address] [place], [address] CO2 [Moles/Vol] 26.0 mmol/L Normal 21.0-32.0 [facility] Comment on above: Performed By: #### L 100.0100, L500.4050 ####[facility] [address] [place], [address] Creatinine [Mass/Vol] 0.93 mg/dL Normal 0.55-1.02 [facility] Comment on above: Result Comment: The validity of the calculated GFR GFRAA in patients over 70 years has not been determined. Clinical correlation is essential. Performed By: #### L 100.0100, L500.4050 ####[facility] [address] [place], [address] EST GFR - AA 77 mL/min Normal >60 [facility] Comment on above: Result Comment: Afri can Mexican GFR Calc Performed By: #### L 100.0100, L500.4050 ####[facility] [address] [place], [address] GAP 5 Normal 5-15 [facility] Comment on above: Performed By: #### L 100.0100, L500.4050 ####[facility] [address] [place], [address] GFR/1.73 sq M.predicted among non-blacks MDRD (S/P/Bld) [Vol rate/Area] 63 mL/min/{1.73_m2} Normal >60 [facility] Comment on above: Result Comment: Non- GFR Calc Performed By: #### L 100.0100, L500.4050 ####[facility] [address] [place], [address] Globulin (S) [Mass/Vol] 4.6 g/dL High 2.2-4.2 [facility] Comment on above: Performed By: #### L 100.0100, L500.4050 ####[facility] [address] [place], [address] Glucose [Mass/Vol] 105 mg/dL Normal 74-106 [facility] Comment on above: Result Comment: Fast ing Glucose result from 100 to 125 mg/dL suggests IMPAIRED HOMEOSTASIS per A.D.A. criteria. Performed By: #### L 100.0100, L500.4050 ####[facility] [address] [place], [address] Potassium [Moles/Vol] 4.1 mmol/L Normal 3.5-5.1 [facility] Comment on above: Performed By: #### L 100.0100, L500.4050 ####[facility] [address] [place], [address] Sodium [Moles/Vol] 134 mmol/L Low 136-145 [facility] Comment on above: Performed By: #### L 100.0100, L500.4050 ####[facility] [address] [place], [address] T PROT 7.4 g/dL Normal 6.4-8.2 [facility] Comment on above: Performed By: #### L 100.0100, L500.4050 ####[facility] [address] [place], [address] Urea nitrogen [Mass/Vol] 12 mg/dL Normal 7-18 [facility] Comment on above: Performed By: #### L 100.0100, L500.4050 ####[facility] [address] [place], [address] Determination of erythrocyte mean corpuscular volume (MCV)Ordered By: Sheeba Velasco on 08-14-2023 MCV (RBC) [Entitic vol] 89.5 fL 81-99 [facility] Erythrocyte distribution wid th ratioOrdered By: Sheeba Velasco on 08-14-2023 Erythrocyte distribution width (RBC) [Ratio] 15.0 % 11.6-14.6 [facility] Erythrocyte distribution wid th standard deviationOrdered By: Sheeba Velasco on 08-14-2023 Erythrocyte distribution width (RBC) [Entitic vol] 48.7 fL 35.1-43.9 [facility] Hematocrit Auto (Bld) [Volum e fraction]Ordered By: Sheeba Velasco on 08-14-2023 Hematocrit (Bld) [Volume fraction] 37.5 % 37-47 [facility] Immature granulocytes/100 WB C Auto (Bld)Ordered By: [facility] Rod on 08-14-2023 Immature granulocytes/100 WBC (Bld) 0.200 % 0.0-0.9 [facility] Comment on above: IG% - Immature Granu locytes (promyelocytes, myelocytes and metamyelocytes) > 1% indicates that a LEFT SHIFT is Present. Laboratory - Chemistry and C hemistry - challengeOrdered By: Sheebalucie Velasco on 08-14-2023 Albumin/Globulin [Mass ratio] 0.6 {ratio} 0.9-2.4 [facility] ALP [Catalytic activity/Vol] 66 U/L 45-117 [facility] ALT [Catalytic activity/Vol] 11 U/L 13-56 [facility] CO2 [Moles/Vol] 26.0 mmol/L 21.0-32.0 [facility] Globulin (S) [Mass/Vol] 4.6 g/dL 2.2-4.2 [facility] Urea nitrogen/Creatinine [Mass ratio] 12.9 mg/mg 10-20 [facility] Laboratory - Hematology and Cell countsOrdered By: Sheebalucie Velasco on 08-14-2023 MCH (RBC) [Entitic mass] 27.0 pg 27.0-32.0 [facility] MCHC (RBC) [Mass/Vol] 30.1 g/dL 32-36 [facility] Nucleated RBC/100 WBC (Bld) [Ratio] 0 % 0-5 [facility] Platelet mean volume (Bld) [Entitic vol] 10.5 fL 6.2-12.0 [facility] Platelets (Bld) [#/Vol] 285 10*3/uL 150-450 [facility] No Panel InformationOrdered By: Sheeba Velasco on 08-14-2023 Estimated GFR (MDRD) Amer 77 mL/min >60 [facility] Comment on above: GFR Calc Estimated GFR (MDRD) Non-Af Amer 63 mL/min >60 [facility] Comment on above: Non- GFR Calc RBC Auto (Bld) [#/Vol]Ordere d By: Sheeba Velasco on 08-14-2023 RBC (Bld) [#/Vol] 4.19 10*6/uL 4.2-5.4 [facility] Serum or plasma calcium barbara urement (mass/volume)Ordered By: Sheeba Velasco on 08-14-2023 Calcium [Mass/Vol] 9.5 mg/dL 8.5-10.1 [facility] Serum or plasma creatinine m easurement (mass/volume)Ordered By: Sheeba Velasco on 08-14-2023 Creatinine [Mass/Vol] 0.93 mg/dL 0.55-1.02 [facility] Comment on above: The validity of the calculated GFR & GFRAA in patients over 70 years has not been determined. Clinical correlation is essential. Serum or plasma urea nitroge n measurement (mass/volume)Ordered By: Sheeba Velasco on 08-14-2023 Urea nitrogen [Mass/Vol] 12 mg/dL 7-18 [facility] Thin prep Papanicolaou smear with manual screeningOrdered By: Sheeba Velasco on 08-14-2023 Thin prep Papanicolaou smear with manual screening 2.8 g/dL 3.2-5.0 [facility] Thin prep Papanicolaou smear with manual screening 16 U/L 15-37 [facility] Thin prep Papanicolaou smear with manual screening 5 5-15 [facility] MR/Marisela 08-12-2023 /FRANNY [facility] [address] [place] [address] OFFICE VISIT Date of Service: 08/12/23 MR#: [id number] Acct: [id number] Name: KIKO GODFREY Rep #: [id number] : 1950 Provider: TATIANA Saab Age/Sex: 73/F Location: [facility] [place] Status: Signed Intake Vital Signs 07/29/23 14:37 08/12/23 10:29 Height 5 ft 8 in 5 ft 8 in BP 109/67 Blood Pressure Location Lt brachial Position Sitting Pulse 58 L Pulse Source Monitor Pulse Oximetry (%) 99 Oxygen Delivery Method room air Comment unable to obtain weight Intake Visit Reasons: F/U FROM TESTING Chief Complaint: LLE DVT Is patient in pain?: No Allergies doxycycline Adverse Reaction (Verified 08/12/23 10:31) PT UNSURE OF REACTION Medications hydroxychloroquine 200 mg tablet 200 mg PO BIDCM 09/18/13 [History Confirmed 08/12/23] pantoprazole 40 mg tablet,delayed release 40 mg PO DAILY 02/26/19 [History Confirmed 08/12/23] famotidine 20 mg tablet 20 mg PO BID 11/08/21 [History Confirmed 08/12/23] blood pressure monitor #1 ea 11/08/22 [Rx Confirmed 08/12/23] leucovorin calcium 15 mg tablet 15 mg PO QWEEK counteract the methotrexate 11/08/22 [History Confirmed 08/12/23] prednisone 2.5 mg tablet 2.5 mg PO DAILY 11/08/22 [History Confirmed 08/12/23] metoprolol tartrate 50 mg tablet See Rx Instructions .Route .COMPLEX #180 tabs 04/09/23 [Rx Confirmed 08/12/23] methotrexate sodium 25 mg/mL injection solution 18.75 mg subcut QWEEK arthritis 07/28/23 [History Confirmed 08/12/23] sulfasalazine 500 mg tablet,delayed release 1,000 mg PO BID 07/28/23 [History Confirmed 08/12/23] tramadol 50 mg tablet 50 - 100 mg PO Q6H PRN PRN pain 07/28/23 [History Confirmed 08/12/23] apixaban 5 mg tablet (Eliquis) 5 mg PO BID 30 days #60 tabs 08/12/23 [Rx Confirmed 08/12/23] PFSH Medical History Anxiety and depression COPD (chronic obstructive pulmonary disease) Former smoker GERD (gastroesophageal reflux disease) Iron deficiency anemia Obesity (BMI 30-39.9) Paroxysmal supraventricular tachycardia Pulmonary embolism Rheumatoid arthritis Schizophrenia Transient ischemic attack Surgical History H/O tubal ligation History of breast lump removal History of foot surgery History of knee surgery History of radiofrequency ablation procedure for cardiac arrhythmia (03/2003) Family History Mother Breast cancer Social History household members: none Smoking Status: Former smoker how long ago did patient quit smoking: Quit 15 yrs prior, smoked 2 ppd since 22 yrs old until quit. alcohol intake: never substance use type: does not use HPI HPI HPI: KIKO GODFREY, is a 73 F who presents to the office today for hospital follow up for LLE DVT, B/L PE. Recall that she was admitted to [facility] on 07/28/23 secondary to provoked bilateral PE's and extensive DVT up to the level of the L FV. She ultimately was not felt to require PE thrombectomy. She did have a repeat venous duplex today which showed stable/slightly improving DVT. She continues to take Eliquis as prescribed. She is not having any bloody stools, hematuria, epistaxis. She does still have some dyspnea with exertion. She does not have any significant pain in her LLE other than her usual secondary to her injury. She does not feel that she has any significant edema in her LLE. Recall that she'd had a slip and fall resulting to a L knee/ankle fracture in May for which she elected for nonsurgical management and was placed in a LLE immobilizer. This remains in place. She follows up with ortho next week and is hoping to get cleared to remove the immobilizer and progress with PT. ROS General General: No weight change, appetite, fatigue, colon cancer, breast cancer or weakness HEENT HEENT: No difficulty swallowing, eye injury, eye surgery, swollen glands or hoarseness Endo Endocrine: No thyroid disease, diabetes mellitus, thyroid cancer, Hair loss, heat intolerance or cold intolerance Skin Skin: No rash or changing moles Breast Breast: No left breast lump, right breast lump, nipple discharge, breast pain, abnormal mammogram, abnormal US or breast enlargement Musc Musculoskeletal: Yes rheumatoid arthritis; No back problems, arthritis, gout or joint pain Cardio Cardiovascular: No murmur, pacemaker, heart disease, atrial fibrillation, high blood pressure, heart attack, heart stent, palpitations, shortness of breat with exertion or chest pain Psych Psychiatric: No depression, anxiety or hearing voices Resp Respiratory: No shortness of breath, No sleep (more content not included)... Normal [facility] Venous Duplex US, Unilateral on 08-12-2023 Venous Duplex US, Unilateral [facility] [address] [place] [address] Venous Duplex US, Unilateral 08/12/23 1000 MR#: [id number] Acct: [id number] Name: KIKO GODFREY Rep #: [id number] : 1950 73 From: Eric Olmos MD Attending Dr: TATIANA Saab Status: REG CLI Ordering Dr: Glenna Dave Date: 08/12/23 Location: [facility] Sex: F C Admitted: Reason For Study: LLE SWELLING Procedure LEFT This is a venous duplex using B-mode, color GSV is normal. flow and spectral Doppler. CFV is compressible, spontaneous, phasic, Exam performed in department. competent, and demonstrates normal The study was technically difficult. augmentation. A preliminary report was called and/or faxed FV, T/P TRUNK, POP V, ARE PARTIALLY to Glenna SIMPSON @ [phone]. COMPRESSIBLE. PTV/PERV NONCOPRESSIBLE difficult to visualize. VL/Venous Duplex US, Unilateral Interpretation Summary Subacute deep vein thrombosis is noted in the left femoral vein, popliteal vein, tibioperoneal trunk vein. Acute deep vein thrombosis noted in the left posterior tibial vein, peroneal vein. Poorly visualized. Ordering Physician: Glenna Dave Referring Physician: Eric Lozano Performed By: Melody Ridley, RDCS, RVT 08/13/231715 Date Eric Olmos MD CC: TATIANA Saab; Dr. Eric Lozano MD Date Dictated: 08/12/23 1000 Date Transcribed: 08/13/231715 Mid Level Developer: Signed Normal [facility] Basic Metabolic Profile (BMP )on 07-31-2023 BUN/CRE 17.5 RATIO Normal 10-20 [facility] Comment on above: Performed By: #### L 100.0500, L500.2500 #### [facility] [address] [place], [address] CA,Total 8.6 mg/dL Normal 8.5-10.1 [facility] Comment on above: Performed By: #### L 100.0500, L500.2500 #### [facility] [address] [place], [address] Chloride [Moles/Vol] 105 mmol/L Normal 98-107 [facility] Comment on above: Performed By: #### L 100.0500, L500.2500 #### [facility] [address] [place], [address] CO2 [Moles/Vol] 22.0 mmol/L Normal 21.0-32.0 [facility] Comment on above: Performed By: #### L 100.0500, L500.2500 #### [facility] [address] [place], [address] Creatinine [Mass/Vol] 0.74 mg/dL Normal 0.55-1.02 [facility] Comment on above: Result Comment: The validity of the calculated GFR GFRAA in patients over 70 years has not been determined. Clinical correlation is essential. Performed By: #### L 100.0500, L500.2500 #### [facility] [address] [place], [address] ECRCL 78.06 ml/min Normal [facility] Comment on above: Performed By: #### L 100.0500, L500.2500 #### [facility] [facility] [address] [place], [address] EST GFR - AA 99 mL/min Normal >60 [facility] Comment on above: Result Comment: Afri can Mexican GFR Calc Performed By: #### L 100.0500, L500.2500 #### [facility] [address] [place], [address] GAP 7 Normal 5-15 [facility] Comment on above: Performed By: #### L 100.0500, L500.2500 #### [facility] [address] [place], [address] GFR/1.73 sq M.predicted among non-blacks MDRD (S/P/Bld) [Vol rate/Area] 82 mL/min/{1.73_m2} Normal >60 [facility] Comment on above: Result Comment: Non- GFR Calc Performed By: #### L 100.0500, L500.2500 #### [facility] [address] [place], [address] Glucose [Mass/Vol] 95 mg/dL Normal 74-106 [facility] Comment on above: Performed By: #### L 100.0500, L500.2500 #### [facility] [address] [place], [address] Potassium [Moles/Vol] 3.8 mmol/L Normal 3.5-5.1 [facility] Comment on above: Result Comment: Slig ht Hemolysis, Result may be falsely increased. Performed By: #### L 100.0500, L500.2500 #### [facility] [address] [place], [address] Sodium [Moles/Vol] 134 mmol/L Low 136-145 [facility] Comment on above: Performed By: #### L 100.0500, L500.2500 #### [facility] [address] [place], [address] Urea nitrogen [Mass/Vol] 13 mg/dL Normal 7-18 [facility] Comment on above: Performed By: #### L 100.0500, L500.2500 #### [facility] [address] [place], [address] Basophil percentageOrdered B y: Dmitry Indu on 07-31-2023 Chloride [Moles/Vol] 105 mmol/L 98-107 [facility] Glucose [Mass/Vol] 95 mg/dL 74-106 [facility] Hemoglobin (Bld) [Mass/Vol] 9.9 g/dL 12.0-15.0 [facility] Potassium [Moles/Vol] 3.8 mmol/L 3.5-5.1 [facility] Comment on above: Slight Hemolysis, Re sult may be falsely increased. Sodium [Moles/Vol] 134 mmol/L 136-145 [facility] WBC (Bld) [#/Vol] 8.1 10*3/uL 4.4-11.0 [facility] CBC-Complete Blood Cnt No Di ffon 07-31-2023 Erythrocyte distribution width (RBC) [Ratio] 14.8 % High 11.6-14.6 [facility] Comment on above: Performed By: #### L 100.0500, L500.2500 #### [facility] [address] [place], [address] Hematocrit (Bld) [Volume fraction] 32.4 % Low 37-47 [facility] Comment on above: Performed By: #### L 100.0500, L500.2500 #### [facility] [address] [place], [address] Hemoglobin (Bld) [Mass/Vol] 9.9 g/dL Low 12.0-15.0 [facility] Comment on above: Performed By: #### L 100.0500, L500.2500 #### [facility] [address] [place], [address] MCH (RBC) [Entitic mass] 27.3 pg Normal 27.0-32.0 [facility] Comment on above: Performed By: #### L 100.0500, L500.2500 #### [facility] [address] [place], [address] MCHC (RBC) [Mass/Vol] 30.6 g/dL Low 32-36 [facility] Comment on above: Performed By: #### L 100.0500, L500.2500 #### [facility] [address] [place], [address] MCV (RBC) [Entitic vol] 89.5 fL Normal 81-99 [facility] Comment on above: Performed By: #### L 100.0500, L500.2500 #### [facility] [address] [place], [address] Platelet mean volume (Bld) [Entitic vol] 11.0 fL Normal 6.2-12.0 [facility] Comment on above: Performed By: #### L 100.0500, L500.2500 #### [facility] [address] [place], [address] Platelets (Bld) [#/Vol] 201 10*3/uL Normal 150-450 [facility] Comment on above: Performed By: #### L 100.0500, L500.2500 #### [facility] [address] [place], [address] RBC (Bld) [#/Vol] 3.62 10*6/uL Low 4.2-5.4 [facility] Comment on above: Performed By: #### L 100.0500, L500.2500 #### [facility] [address] [place], [address] RDW SD 47.8 fl High 35.1-43.9 [facility] Comment on above: Performed By: #### L 100.0500, L500.2500 #### [facility] [address] [place], [address] WBC (Bld) [#/Vol] 8.1 10*3/uL Normal 4.4-11.0 [facility] Comment on above: Performed By: #### L 100.0500, L500.2500 #### [facility] [address] [place], [address] Determination of erythrocyte mean corpuscular volume (MCV)Ordered By: Dmitry Griggs on 07-31-2023 MCV (RBC) [Entitic vol] 89.5 fL 81-99 [facility] Discharge Instructionon 07-13 Discharge Instruction [facility] Medical Records Department [address] [place] [address] Instructions for Home/Discharge Instructions 07/31/23 1112 MR#: [id number] Acct: [id number] Name: KIKO GODFREY Rep #: [id number] : 1950 73 From: Dmitry Griggs DO PCP: Dr. Eric Lozano MD Status:ADM IN Discharge Instructions Diet Discharge Diet: No restrictions Follow Up Care Test Results: Test results from this visit will be discussed in further detail at your follow-up appointment, if applicable. Discharge Plan Admission Admit Date/Time: 07/28/23 13:53 Primary Reason for Your Visit: shortness of breath, cough Attending Provider: Dmitry Griggs Primary Care Provider: Eric Lozano Consulting Providers: Sophia Wang; Eric Olmos Discharge Orders/Prescriptions Prescriptions: New Eliquis 5 mg tablet 5 mg PO BID 30 Days Qty: 72 0RF Rx Instructions: Please take 10 mg (2 tablets) twice daily for 6 days (through 08/05), then take 5 mg (1 tablet) twice daily going forward. Continued famotidine 20 mg tablet 20 mg PO BID leucovorin calcium 15 mg tablet 15 mg PO QWEEK Rx Instructions: Pt takes every prednisone 2.5 mg tablet 2.5 mg PO DAILY (DME) blood pressure monitor Kit See Rx Instructions .Route Qty: 1 0RF Rx Instructions: As directed hydroxychloroquine 200 MG tablet 200 mg PO BIDCM Patient Comments: mental health pantoprazole 40 MG tablet,delayed release (DR/EC) 40 mg PO DAILY sulfasalazine 500 mg tablet,delayed release (DR/EC) 1,000 mg PO BID methotrexate sodium 25 mg/mL solution 18.75 mg subcut QWEEK Rx Instructions: Pt takes every Friday tramadol 50 mg tablet 50 - 100 mg PO Q6H PRN PRN (Reason: pain) metoprolol tartrate 50 mg tablet See Rx Instructions .ROUTE .COMPLEX Qty: 180 3RF Dose Instruction: TAKE 1 TABLET TWICE A DAY Rx Instructions: TAKE 1 TABLET TWICE A DAY Referrals / Follow Up: Eric Lozano MD [Primary Care Provider] - Disposition Disposition (needs filled in before D/C Order can be placed): Home, Self Care 07/31/23 1204 Dmitry Griggs DO CC: Dr. Sophia Wang MD; Dr. Eric Lozano MD; Dr. Eric Olmos MD Signed Normal [facility] Erythrocyte distribution wid th ratioOrdered By: Dmitry Griggs on 07-31-2023 Erythrocyte distribution width (RBC) [Ratio] 14.8 % 11.6-14.6 [facility] Erythrocyte distribution wid th standard deviationOrdered By: Dmitry Griggs on 07-31-2023 Erythrocyte distribution width (RBC) [Entitic vol] 47.8 fL 35.1-43.9 [facility] Hematocrit Auto (Bld) [Volum e fraction]Ordered By: Dmitry Griggs on 07-31-2023 Hematocrit (Bld) [Volume fraction] 32.4 % 37-47 [facility] - Chemistry and C hemistry - challengeOrdered By: Dmitry Griggs on 07-31-2023 CO2 [Moles/Vol] 22.0 mmol/L 21.0-32.0 [facility] Urea nitrogen/Creatinine [Mass ratio] 17.5 mg/mg 10-20 [facility] - Hematology and Cell countsOrdered By: Dmitry Griggs on 07-31-2023 MCH (RBC) [Entitic mass] 27.3 pg 27.0-32.0 [facility] MCHC (RBC) [Mass/Vol] 30.6 g/dL 32-36 [facility] Platelet mean volume (Bld) [Entitic vol] 11.0 fL 6.2-12.0 [facility] Platelets (Bld) [#/Vol] 201 10*3/uL 150-450 [facility] No Panel InformationOrdered By: Dmitry Griggs on 07-31-2023 Estimated Creatinine Clearance Calc 78.06 ml/min [facility] Estimated GFR (MDRD) Amer 99 mL/min >60 [facility] Comment on above: GFR Calc Estimated GFR (MDRD) Non-Af Amer 82 mL/min >60 [facility] Comment on above: Non- GFR Calc Partial Thromboplast Timeon 07-31-2023 aPTT Coag (Bld) [Time] 37.9 s High 24.1-36.2 [facility] Comment on above: Performed By: #### L 300.4310 ####[facility] [address] [place], [place], [id number] RBC Auto (Bld) [#/Vol]Ordere d By: Dmitry Griggs on 07-31-2023 RBC (Bld) [#/Vol] 3.62 10*6/uL 4.2-5.4 [facility] Serum or plasma calcium barbara urement (mass/volume)Ordered By: Dmitry Griggs on 07-31-2023 Calcium [Mass/Vol] 8.6 mg/dL 8.5-10.1 [facility] Serum or plasma creatinine m easurement (mass/volume)Ordered By: Dmitry Griggs on 07-31-2023 Creatinine [Mass/Vol] 0.74 mg/dL 0.55-1.02 [facility] Comment on above: The validity of the calculated GFR & GFRAA in patients over 70 years has not been determined. Clinical correlation is essential. Serum or plasma urea nitroge n measurement (mass/volume)Ordered By: Dmitry Griggs on 07-31-2023 Urea nitrogen [Mass/Vol] 13 mg/dL - [facility] Thin prep Papanicolaou smear with manual screeningOrdered By: Dmitry Griggs on 07-31-2023 Thin prep Papanicolaou smear with manual screening 7 - [facility] Activated partial thrombopla stin time (aPTT) in platelet poor plasma by coagulation aOrdered By: Dmitry Griggs on 07-30-2023 aPTT Coag (PPP) [Time] 37.9 s 24.1-36.2 [facility] Consultation - Intensiviston 07-30-2023 Consultation - Program Management Intern [facility] Medical Records Department [address] [place] [address] Consultation - Program Management Intern 07/30/23811 MR#: [id number] Acct: [id number] Name: KIKO GODFREY Rep #: [id number] : 1950 73 From: Amanuel Wheeler DO PCP: Dr. Eric Lozano MD Status:ADM IN Location: [place] [address] Assessment Plan Assessment/Plan (1) Bilateral pulmonary embolism: (2) Acute deep vein thrombosis (DVT) of left lower extremity: PLAN: Plan RECOMMENDATIONS: 1. Continue heparin infusion, with plans to transition to oral anticoagulation regimen when feasible. 2. Ambulate patient as tolerated. IMPRESSIONS: 1. Bilateral pulmonary emboli Most likely provoked by recent immobility in the setting of ankle fracture. She has remained clinically stable on a heparin infusion. The patient is not hypoxemic, nor is she endorsing any significant dyspnea. At this time, I do not see an overt indication to proceed with pulmonary th rombectomy, given the patient's clinical stability. 2. Recent left ankle/knee fracture Continue outpatient orthopedic follow-up as scheduled. The patient will need to remain anticoagulated while she remains immobilized, for at least a period of 3 months. 3. History of COPD/rheumatoid arthritis/anemia/tobacco dependency, in remission/obesity Complicates care, management, recovery and prognosis. Continue home medications as indicated. This note was generated with [employer] software. It may contain incorrect words, spelling, and punctuation that were not noted in checking the note before signing. HPI Consult Data Date of Consult: 07/30/23 HPI Narrative Reason for Consultation: Pulmonary emboli HPI Narrative: The patient is a 73-year-old female, with a history as outlined below, who presented to the emergency department on July 27 with shortness of breath. The patient has an apparent history of rheumatoid arthritis, COPD, anxiety and depression. The patient had no prior history of VTE. The patient did sustain a recent left lower extremity ankle and knee fracture resulting in immobilization. On presentation to the emergency department, the patient was noted to be afebrile and hemodynamically stable. She was mildly tachycardic tachypneic, but otherwise maintaining appropriate oxygen saturations on room air. The patient did have an elevated troponin at 1595 with a BNP of 662. CTA chest demonstrated bilateral pulmonary emboli. Subsequent lower extremity Doppler study demonstrated left-sided DVT. The patient surface echocardiogram demonstrated normal LV size and function with an ejection fraction of 55% and stage I diastolic dysfunction. The RV was moderately dilated with mild global RV systolic dysfunction and pulmonary artery systolic pressure of 44 mmHg. The patient was admitted to the hospital and placed on a heparin infusion. She was subsequently evaluated by vascular surgery for possible lower extremity thrombectomy. At the present time, the patient does not endorse any significant shortness of breath. She is not hypoxemic and is maintaining appropriate oxygen saturations on room air. [facility] Medical History (Updated 07/29/23 @ 17:42 by TATIANA Saab) Anxiety and depression COPD (chronic obstructive pulmonary disease) Former smoker GERD (gastroesophageal reflux disease) Iron deficiency anemia Obesity (BMI 30-39.9) Paroxysmal supraventricular tachycardia Pulmonary embolism Rheumatoid arthritis Schizophrenia Transient ischemic attack Home Medications hydroxychloroquine 200 mg tablet 200 mg PO BIDCM 09/18/13 [History Last Taken 09/17/13 20:00] pantoprazole 40 mg tablet,delayed release 40 mg PO DAILY 02/26/19 [History Last Taken 07/28/23] famotidine 20 mg tablet 20 mg PO BID 11/08/21 [History Last Taken 07/28/23] blood pressure monitor #1 ea 11/08/22 [Rx Last Taken Unknown] leucovorin calcium 15 mg tablet 15 mg PO QWEEK counteract the methotrexate 11/08/22 [History Last Taken 07/24/23] prednisone 2.5 mg tablet 2.5 mg PO DAILY 11/08/22 [History Last Taken 07/28/23] metoprolol tartrate 50 mg tablet See Rx Instructions .Route .COMPLEX #180 tabs 04/09/23 [Rx Last Taken 07/28/23] methotrexate sodium 25 mg/mL injection solution 18.75 mg subcut QWEEK arthritis 07/28/23 [History Last Taken 07/23/23] sulfasalazine 500 mg tablet,delayed release 1,000 mg PO BID 07/28/23 [History Last Taken 07/28/23] tramadol 50 mg tablet 50 - 100 mg PO Q6H PRN PRN pain 07/28/23 [History Last Taken Unknown] Allergy/AdvReac Type Severity Reaction Status Date / Time doxycycline AdvReac PT UNSURE Verified 07/28/23 11:36 OF REACTION Family History Mother Breast cancer Family History other Surgical History H/O tubal ligation History of breast (more content not included)... Normal [facility] Partial Thromboplast Timeon 07-30-2023 aPTT Coag (Bld) [Time] 51.6 s High 24.1-36.2 [facility] Comment on above: Performed By: #### L 100.0500, L500.2500 #### [facility] [address] [place], [address] aPTT Coag (Bld) [Time] 107.1 s Invalid Interpretation Code 24.1-36.2 [facility] Comment on above: Result Comment: CRIT ICAL VALUE VERIFIED. CALLED TO [employer] 07/30/23 0522 Kay Alas. RESULTS READ BACK BY SAME. Performed By: #### L [id number] ####[facility] [address] [place], [address] Abd Aortic/IVC Duplex scanon 07-29-2023 Abd Aortic/IVC Duplex scan [facility] [address] [place] [address] Abd Aortic/IVC Duplex scan 07/30/23 0801 MR#: [id number] Acct: [id number] Name: KIKO GODFREY #: [id number] : 1950 73 From: Eric Olmos MD Attending Dr: Dr. Dmitry Griggs, Status : ADM IN Ordering Dr: Glenna Dave Date: 07/29/23 Location: [facility] Sex: F C Admitted: 07/28/23 Reason For Study: HX LLE DVT Inferior Vena Cava Proximal inferior vena cava measures 1.82 x 1.58 cm. in the cross-sectional axis. Proximal inferior vena cava measures 2.06 cm. in the longitudinal axis. Mid inferior vena cava measures 1.65 x 1.56 cm. in the cross-sectional axis. Mid inferior vena cava measures 1.70 cm. in the longitudinal axis. Distal inferior vena cava measures 1.42 x 1.49 cm. in the cross-sectional axis. Distal inferior vena cava measures 1.71 cm. in the longitudinal axis. The inferior vena cava has spontaneous, phasic flow throughout. Left Common Iliac Vein Left common iliac vein measures 0.97 x 1.07 cm. in the cross-sectional axis. Left common iliac vein measures 1.08 cm. in the longitudinal axis. The left common iliac vein has spontaneous, phasic flow throughout. Right Common Iliac Vein Right common iliac vein measures 0.90 x 0.86 cm. in the cross-sectional axis. Right common iliac vein measures 1.04 cm. in the longitudinal axis. The right common iliac vein has spontaneous, phasic flow throughout. Procedure Aorta IVC Iliac vasculature or bypass grafts [address]. The exam was diagnostic. Exam performed in department. VL/Abd Aortic/IVC Duplex scan Interpretation Summary Patent inferior vena cava and bilateral iliac veins with no evidence of thrombus. Ordering Physician: Glenna Dave Referring Physician: Eric Lozano MD Performed By: Garrick Lobo RVT and Student 07/30/23 1227 Date Eric Olmos MD CC: TATIANA Saab; Dr. Dmitry Griggs DO; Dr. Eric Lozano MD Date Dictated: 07/30/23 08 Date Transcribed: 07/30/231226 Mid Level Developer: Signed Normal [facility] Abdomen/Pelvis WITH Contrast on 07-29-2023 Abdomen/Pelvis WITH Contrast [facility] Imaging Services [address] [place] [address] Abdomen/Pelvis WITH Contrast MR#: [id number] Acct: [id number] Name: KIKO GODFREY Rep #: [id number] : 1950 F 73 From: Morgan Ya MD PCP: Dr. Eric Lozano MD Status: DIS IN Study: Abdomen/Pelvis WITH Contrast Date of Exam: Exam# [id number] Ordering Dr: Glenna Dave [id number] INDICATION: concern for iliac/IVC thrombus -- Venous phase EXAMINATION: CT ABDOMEN AND PELVIS WITH CONTRAST - CT Abdomen And Pelvis W/ Contrast Injection TECHNIQUE: Helically acquired images were obtained of the abdomen and pelvis following IV contrast. A radiation dose optimization technique was used for this scan. IV Contrast dosage and agent: 100 cc [id number] Oral contrast: None. COMPARISON: CTA chest 07/28/2023 FINDINGS: LOWER CHEST: Lung bases are clear. Small hiatal hernia. LIVER: Homogeneous. No focal mass. GALLBLADDER AND BILIARY TREE: Calcified gallstones. No gallbladder distension or wall edema. No intra- or extrahepatic biliary ductal dilation. PANCREAS: No focal cystic or solid mass. SPLEEN: Normal size without focal cystic or solid mass. ADRENAL GLANDS: No nodules. KIDNEYS AND URETERS: Normal renal size and position. No hydronephrosis. PERITONEUM: No ascites or free air. BOWEL: Normal appendix. No stomach or bowel distension. No focal inflammatory change. LYMPH NODES: No enlarged mesenteric or retroperitoneal lymph nodes. VESSELS: Aorta is non-dilated. No gross filling defects in the common iliac veins or IVC, suboptimal enhancement. URINARY BLADDER: Unremarkable. REPRODUCTIVE ORGANS: No pelvic masses. ABDOMINAL WALL: No discrete abdominal or pelvic wall hernia. BONES: No acute or aggressive abnormality. CT/Abdomen/Pelvis WITH Contrast IMPRESSION: No acute findings in the abdomen or pelvis. Cholelithiasis. No gross filling defects in the IVC or iliac veins, overall suboptimal enhancement. Electronically Signed: Morgan Ya MD at 19:27 EDT , CC: TATIANA Saab; Dr. Eric Lozano MD Mid Level Developer: Signed Normal [facility] Absolute lymphocyte countOrd ered By: Sophia Wang on 07-29-2023 Lymphocytes Auto (Unsp spec) [#/Vol] 1.34 10*3/uL 0.83-4.51 [facility] Automated lymphocyte count a s percentage of total leukocytesOrdered By: White on 07-29-2023 Lymphocytes/100 WBC Auto (Unsp spec) 14.5 % 19-41 [facility] Basophil percentageOrdered B y: on 07-29-2023 Basophils/100 WBC (Bld) 0.4 % 0-1 [facility] Bilirubin [Mass/Vol] 0.40 mg/dL Normal 0.20-1.00 [facility] Comment on above: For patients on eltr ombopag therapy, use of Dimension [place] TBIL is not recommended. Result Comment: For patients on eltrombopag therapy, use of Dimension [place] TBIL is not recommended. Performed By: #### L 100.0500, L500.2500 #### [facility] [address] [place], [address] Cholesterol [Mass/Vol] 161 mg/dL Normal 200 [facility] Comment on above: <200 mg/dL Desirable 200-240 mg/dL Borderline >240 mg/dL High Risk Result Comment: <200 mg/dL Desirable 200-240 mg/dL Borderline >240 mg/dL High Risk Performed By: #### L 100.0500, L500.2500 #### [facility] [address] [place], [address] Eosinophils/100 WBC (Bld) 0.2 % 0-5 [facility] Monocytes/100 WBC (Bld) 9.3 % 0-10 [facility] Neutrophils (Bld) [#/Vol] 6.9 10*3/uL 2.0-7.7 [facility] Neutrophils/100 WBC (Bld) 74.8 % 47-70 [facility] Protein [Mass/Vol] 7.1 g/dL 6.4-8.2 [facility] Triglyceride [Mass/Vol] 94 mg/dL Normal [facility] Comment on above: The drugs N-Acetylcy steine and Metamizole may falsely depress this assay.Serum Triglycerides Reference Interval Normal <150 mg/dL Borderline high 150 - 199 mg/dL High 200 - 499 mg/dL Very High > or = 500 mg/dL Result Comment: The drugs N-Acetylcysteine and Metamizole may falsely depress this assay. Serum Triglycerides Reference Interval Normal <150 mg/dL Borderline high 150 - 199 mg/dL High 200 - 499 mg/dL Very High > or = 500 mg/dL Performed By: #### L 100.0500, L500.2500 #### [facility] [address] [place], [address] CBC W/Diff, Automatedon 07-13 Absolute Lymph 1.34 X10 3/uL Normal 0.83-4.51 [facility] Comment on above: Performed By: #### L 100.0500, L500.2500 #### [facility] [address] [place], [address] Absolute Neut 6.9 X10 3/uL Normal 2.0-7.7 [facility] Comment on above: Performed By: #### L 100.0500, L500.2500 #### [facility] [address] [place], [address] Basophils/100 WBC (Bld) 0.4 % Normal 0-1 [facility] Comment on above: Performed By: #### L 100.0500, L500.2500 #### [facility] [address] [place], [address] Eosinophils/100 WBC (Bld) 0.2 % Normal 0-5 [facility] Comment on above: Performed By: #### L 100.0500, L500.2500 #### [facility] [address] [place], [address] Erythrocyte distribution width (RBC) [Ratio] 15.0 % High 11.6-14.6 [facility] Comment on above: Performed By: #### L 100.0500, L500.2500 #### [facility] [address] [place], [address] Hematocrit (Bld) [Volume fraction] 37.6 % Normal 37-47 [facility] Comment on above: Performed By: #### L 100.0500, L500.2500 #### [facility] [address] [place], [address] Hemoglobin (Bld) [Mass/Vol] 11.3 g/dL Low 12.0-15.0 [facility] Comment on above: Performed By: #### L 100.0500, L500.2500 #### [facility] [address] [place], [address] IG% 0.800 Normal 0.0-0.9 [facility] Comment on above: Result Comment: IG% - Immature Granulocytes (promyelocytes, myelocytes and metamyelocytes) > 1% indicates that a LEFT SHIFT is Present. Performed By: #### L 100.0500, L500.2500 #### [facility] [address] [place], [address] Lymphocytes/100 WBC (Bld) 14.5 % Low 19-41 [facility] Comment on above: Performed By: #### L 100.0500, L500.2500 #### [facility] [address] [place], [address] MCH (RBC) [Entitic mass] 27.0 pg Normal 27.0-32.0 [facility] [facility] Comment on above: Performed By: #### L 100.0500, L500.2500 #### [facility] [address] [place], [address] MCHC (RBC) [Mass/Vol] 30.1 g/dL Low 32-36 [facility] Comment on above: Performed By: #### L 100.0500, L500.2500 #### [facility] [address] [place], [address] MCV (RBC) [Entitic vol] 89.7 fL Normal 81-99 [facility] Comment on above: Performed By: #### L 100.0500, L500.2500 #### [facility] [address] [place], [address] Monocytes/100 WBC (Bld) 9.3 % Normal 0-10 [facility] Comment on above: Performed By: #### L 100.0500, L500.2500 #### [facility] [address] [place], [address] Neutrophils/100 WBC (Bld) 74.8 % High 47-70 [facility] Comment on above: Performed By: #### L 100.0500, L500.2500 #### [facility] [address] [place], [address] Nucleated RBC (Bld) [#/Vol] 0 10*3/uL Normal 0-5 [facility] Comment on above: Performed By: #### L 100.0500, L500.2500 #### [facility] [address] [place], [address] Platelet mean volume (Bld) [Entitic vol] 11.0 fL Normal 6.2-12.0 [facility] Comment on above: Performed By: #### L 100.0500, L500.2500 #### [facility] [address] [place], [address] Platelets (Bld) [#/Vol] 183 10*3/uL Normal 150-450 [facility] Comment on above: Performed By: #### L 100.0500, L500.2500 #### [facility] [address] [place], [address] RBC (Bld) [#/Vol] 4.19 10*6/uL Low 4.2-5.4 [facility] Comment on above: Performed By: #### L 100.0500, L500.2500 #### [facility] [address] [place], [address] RDW SD 48.6 fl High 35.1-43.9 [facility] Comment on above: Performed By: #### L 100.0500, L500.2500 #### [facility] [address] [place], [address] WBC (Bld) [#/Vol] 9.2 10*3/uL Normal 4.4-11.0 [facility] Comment on above: Performed By: #### L 100.0500, L500.2500 #### [facility] [address] [place], [address] Comprehensive Metabolic Prof ilon 07-29-2023 Albumin [Mass/Vol] 2.8 g/dL Low 3.2-5.0 [facility] Comment on above: Performed By: #### L 100.0500, L500.2500 #### [facility] [address] [place], [address] ALK P 55 U/L Normal 45-117 [facility] Comment on above: Performed By: #### L 100.0500, L500.2500 #### [facility] [address] [place], [address] AST [Catalytic activity/Vol] 19 U/L Normal 15-37 [facility] Comment on above: Performed By: #### L 100.0500, L500.2500 #### [facility] [address] [place], [address] BUN/CRE 14.5 RATIO Normal 10-20 [facility] Comment on above: Performed By: #### L 100.0500, L500.2500 #### [facility] [address] [place], [address] CA,Total 8.8 mg/dL Normal 8.5-10.1 [facility] Comment on above: Performed By: #### L 100.0500, L500.2500 #### [facility] [address] [place], [address] Chloride [Moles/Vol] 105 mmol/L Normal 98-107 [facility] Comment on above: Performed By: #### L 100.0500, L500.2500 #### [facility] [address] [place], [address] CO2 [Moles/Vol] 23.0 mmol/L Normal 21.0-32.0 [facility] Comment on above: Performed By: #### L 100.0500, L500.2500 #### [facility] [address] [place], [address] Creatinine [Mass/Vol] 0.90 mg/dL Normal 0.55-1.02 [facility] Comment on above: Result Comment: The validity of the calculated GFR GFRAA in patients over 70 years has not been determined. Clinical correlation is essential. Performed By: #### L 100.0500, L500.2500 #### [place] [facility] [address] [place], [address] ECRCL 70.00 ml/min Normal [facility] Comment on above: Performed By: #### L 100.0500, L500.2500 #### [facility] [address] [place], [address] EST GFR - AA 80 mL/min Normal >60 [facility] Comment on above: Result Comment: Afri can Mexican GFR Calc Performed By: #### L 100.0500, L500.2500 #### [facility] [address] [place], [address] GAP 8 Normal 5-15 [facility] Comment on above: Performed By: #### L 100.0500, L500.2500 #### [facility] [address] [place], [address] GFR/1.73 sq M.predicted among non-blacks MDRD (S/P/Bld) [Vol rate/Area] 66 mL/min/{1.73_m2} Normal >60 [facility] Comment on above: Result Comment: Non- GFR Calc Performed By: #### L 100.0500, L500.2500 #### [facility] [address] [place], [address] Glucose [Mass/Vol] 106 mg/dL Normal 74-106 [facility] Comment on above: Result Comment: Fast ing Glucose result from 100 to 125 mg/dL suggests IMPAIRED HOMEOSTASIS per A.D.A. criteria. Performed By: #### L 100.0500, L500.2500 #### [facility] [address] [place], [address] Potassium [Moles/Vol] 3.6 mmol/L Normal 3.5-5.1 [facility] Comment on above: Performed By: #### L 100.0500, L500.2500 #### [facility] [address] [place], [address] Sodium [Moles/Vol] 136 mmol/L Normal 136-145 [facility] Comment on above: Performed By: #### L 100.0500, L500.2500 #### [facility] [address] [place], [address] T PROT 7.1 g/dL Normal 6.4-8.2 [facility] Comment on above: Performed By: #### L 100.0500, L500.2500 #### [facility] [address] [place], [address] Urea nitrogen [Mass/Vol] 13 mg/dL Normal 7-18 [facility] Comment on above: Performed By: #### L 100.0500, L500.2500 #### [facility] [address] [place], [address] Comprehensive Metabolic Prof ilOrdered By: Sophia Wang on 07-29-2023 Albumin/Globulin [Mass ratio] 0.7 {ratio} Low 0.9-2.4 [facility] Comment on above: Performed By: #### L 100.0500, L500.2500 #### [facility] [address] [place], [address] ALT [Catalytic activity/Vol] 10 U/L Low 13-56 [facility] Comment on above: Performed By: #### L 100.0500, L500.2500 #### [facility] [address] [place], [address] Globulin (S) [Mass/Vol] 4.3 g/dL High 2.2-4.2 [facility] Comment on above: Performed By: #### L 100.0500, L500.2500 #### [facility] [address] [place], [address] Consultation - Surgicalon Consultation - Surgical [facility] Medical Records Department [address] [place] [address] Consultation - Surgical 07/29/23 1715 MR#: [id number] Acct: [id number] Name: KIKO GODFREY Rep #: [id number] : 1950 73 From: Glenna SIMPSON PCP: Dr. 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 With pulsatile flow in the L CFV, have concern for more proximal thrombus. Will obtain venous phase CT A/P and IVC duplex to evaluate. Pending these results, she may be a candidate for lower extremity venogram with thrombectomy which would be coordinated on an outpatient basis. She will have to be NPO prior to IVC duplex. HPI Consult Data Date of Consult: 07/29/23 HPI Narrative HPI Narrative: KIKO GODFREY, is a 73 F who presents with bilateral PE and extensive LLE DVT. Yesterday, she became very SOB and felt some chest pressure which led her to present to the ER. She reports she had not noticed any significant increased swelling or pain in her LLE. Initial troponin was 1595, repeat 1170. BNP was 662.9. She was 95% on RA in the ER. Her pulse was 113. CTA revealed bilateral PE. She was initiated on heparin and admitted for further management. Echo today showed moderately dilated RV and pulmonary systolic pressure 44mmHg. Venous duplex today showed DVT up to the level of the femoral vein and pulsatile flow noted in the CFV. She did have a slip and fall which led to a L knee and ankle fracture in May. She has been in an immobilizer and NWB since then. She has at least 3 more weeks of NWB. She reports today she is feeling better than yesterday with less chest discomfort and no SOB at rest. She does still feel SOB with talking at length and with activity though it is a bit better than yesterday. As she is NWB, she has been sitting on her rollator and pushing herself with her R leg to get around. [facility] Medical History (Updated 07/29/23 @ 17:42 by TATIANA Saab) Anxiety and depression COPD (chronic obstructive pulmonary disease) Former smoker GERD (gastroesophageal reflux disease) Iron deficiency anemia Obesity (BMI 30-39.9) Paroxysmal supraventricular tachycardia Pulmonary embolism Rheumatoid arthritis Schizophrenia Transient ischemic attack Home Medications hydroxychloroquine 200 mg tablet 200 mg PO BIDCM 09/18/13 [History Last Taken 09/17/13 20:00] pantoprazole 40 mg tablet,delayed release 40 mg PO DAILY 02/26/19 [History Last Taken 07/28/23] famotidine 20 mg tablet 20 mg PO BID 11/08/21 [History Last Taken 07/28/23] blood pressure monitor #1 ea 11/08/22 [Rx Last Taken Unknown] leucovorin calcium 15 mg tablet 15 mg PO QWEEK counteract the methotrexate 11/08/22 [History Last Taken 07/24/23] prednisone 2.5 mg tablet 2.5 mg PO DAILY 11/08/22 [History Last Taken 07/28/23] metoprolol tartrate 50 mg tablet See Rx Instructions .Route .COMPLEX #180 tabs 04/09/23 [Rx Last Taken 07/28/23] methotrexate sodium 25 mg/mL injection solution 18.75 mg subcut QWEEK arthritis 07/28/23 [History Last Taken 07/23/23] sulfasalazine 500 mg tablet,delayed release 1,000 mg PO BID 07/28/23 [History Last Taken 07/28/23] tramadol 50 mg tablet 50 - 100 mg PO Q6H PRN PRN pain 07/28/23 [History Last Taken Unknown] Allergy/AdvReac Type Severity Reaction Status Date / Time doxycycline AdvReac PT UNSURE Verified 07/28/23 11:36 OF REACTION Family History Mother Breast cancer Family History other Surgical History H/O tubal ligation History of breast lump removal History of foot surgery History of knee surgery History of radiofrequency ablation procedure for cardiac arrhythmia (03/2003) Social History (Updated 07/28/23 @ 18:[address] Sophia Wang MD) household members: none Smoking Status: Former smoker how long ago did patient quit smoking: Quit 15 yrs prior, smoked 2 ppd since 22 yrs old until quit. alcohol intake: never substance use type: does not use Physical Exam Const alert and oriented x3 General Appearance: cooperative HEENT normocephalic and head/scalp atraumatic Eyes EOMs intact bilaterally General Eye: normal appearance of both eyes Neck General: normal visual inspection Resp no retractions and clear to auscultation bilaterally Resp Narrative: mild shortness of breath noted with conversation Cardio Rate: regular rate Rhythm: regular rhythm Extremity Extremity Narrative: LLE with immobilizer in place, mild edema. No erythema, warmth, excessive tenderness. Neuro (more content not included)... Normal [facility] Immature granulocytes/100 WB C Auto (Bld)Ordered By: Sophia Wang on 07-29-2023 Immature granulocytes/100 WBC (Bld) 0.800 % 0.0-0.9 [facility] Comment on above: IG% - Immature Granu locytes (promyelocytes, myelocytes and metamyelocytes) > 1% indicates that a LEFT SHIFT is Present. Laboratory - Chemistry and C hemistry - challengeOrdered By: Sophia Wang on 07-29-2023 ALP [Catalytic activity/Vol] 55 U/L 45-117 [facility] - Hematology and Cell countsOrdered By: Sophia Wang on 07-29-2023 Nucleated RBC/100 WBC (Bld) [Ratio] 0 % 0-5 [facility] Lipid Profileon 07-29-2023 Cholesterol in VLDL [Mass/Vol] 19 mg/dL Normal 5-40 [facility] Comment on above: Performed By: #### L 100.0500, L500.2500 #### [facility] [address] [place], [address] Lipid ProfileOrdered By: Shaun Wang on 07-29-2023 Cholesterol in HDL [Mass/Vol] 57 mg/dL Normal [facility] Comment on above: The drugs N-Acetylcy steine and Metamizole may falsely depress this assay. Reference Range HDL <40 mg/dL Low HDL Cholesterol HDL >or= 60 mg/dL High HDL Cholesterol Result Comment: The drugs N-Acetylcysteine and Metamizole may falsely depress this assay. Reference Range HDL <40 mg/dL Low HDL Cholesterol HDL >or= 60 mg/dL High HDL Cholesterol Performed By: #### L 100.0500, L500.2500 #### [facility] [address] [place], [address] Cholesterol in LDL [Mass/Vol] 85 mg/dL Normal 0-130 [facility] Comment on above: Performed By: #### L 100.0500, L500.2500 #### [facility] [address] [place], [address] No Panel InformationOrdered By: Sophia Wang on 07-29-2023 VLDL Cholesterol 19 mg/dL 5-40 [facility] Partial Thromboplast Timeon 07-29-2023 aPTT Coag (Bld) [Time] 38.4 s High 24.1-36.2 [facility] Comment on above: Performed By: #### L 100.0500, L500.2500 #### [facility] [address] [place], [address] aPTT Coag (Bld) [Time] 53.6 s High 24.1-36.2 [facility] Comment on above: Performed By: #### L 300.4310 #### [facility] [address] [place], [address] aPTT Coag (Bld) [Time] 48.7 s High 24.1-36.2 [facility] Comment on above: Performed By: #### L 300.4310 #### [facility] [address] [place], [address] Thin prep Papanicolaou smear with manual screeningOrdered By: Sophia Wang on 07-29-2023 Thin prep Papanicolaou smear with manual screening 2.8 g/dL 3.2-5.0 [facility] Thin prep Papanicolaou smear with manual screening 19 U/L 15-37 [facility] Venous Duplex US - Wing Extre mon 07-29-2023 Venous Duplex US - Wing Extrem [facility] [address] [place] [address] Venous Duplex US - Wing Extrem 07/29/23 0904 MR#: [id number] Acct: [id number] Name: KIKO GODFREY Rep #: [id number] : 1950 73 From: Eric Olmos MD Attending Dr: Dr. Dmitry Griggs, Status : ADM IN Ordering Dr: Dmitry Griggs DO Date: 07/29/23 Location: [facility] Sex: F C Admitted: 07/28/23 Reason For Study: Pulmonary Embolism RIGHT LEFT GSV is normal. GSV is normal. CFV is compressible, spontaneous, phasic, CFV is compressible, spontaneous, competent, competent and demonstrates normal and demonstrates pulsatile venous flow. augmentation. Acute deep vein thrombosis is noted in the FV is compressible, spontaneous, phasic, FV. It is dilated and NONCOMPRESSIBLE. competent and demonstrates normal Acute deep vein thrombosis is noted in the augmentation. POP V. It is dilated and NONCOMPRESSIBLE. POP V is compressible, spontaneous, phasic, Acute deep vein thrombosis is noted in the competent and demonstrates normal Gastrocnemius V. It is dilated and augmentation. NONCOMPRESSIBLE. T/P Trunk is compressible. Acute deep vein thrombosis is noted in the PTV is compressible. T/P Trunk. It is dilated and NONCOMPRESSIBLE. RT PerV is compressible. Acute deep vein thrombosis is noted in the Procedure PTV. It is dilated and NONCOMPRESSIBLE. This is a venous duplex using B-mode, color Acute deep vein thrombosis is noted in the flow and spectral Doppler. Per V. It is dilated and NONCOMPRESSIBLE. Exam performed portable in patient room. The exam was diagnostic. A preliminary report was called and/or faxed to [employer] [facility]. VL/Venous Duplex US - Wing Extrem Interpretation Summary Acute deep vein thrombosis is noted in the left femoral vein, popliteal vein, gastrocnemius vein, tibioperoneal trunk vein, posterior tibial vein, peroneal vein. Deep veins of the right lower extremity are patent and compressible segmentally. There is no evidence of right lower extremity deep vein thrombosis. The bilateral great saphenous veins appear patent and compressible segmentally. Ordering Physician: Dmitry Griggs Referring Physician: Eric Lozano MD Performed By: Garrick Lobo, RVT 07/29/231538 Date Eric Olmos MD CC: Dr. Dmitry Griggs DO; Dr. Eric Lozano MD Date Dictated: 07/29/23903 Date Transcribed: 07/29/231538 Mid Level Developer: Signed Normal [facility] Absolute lymphocyte countOrd ered By: Eric West on 07-28-2023 Lymphocytes Auto (Unsp spec) [#/Vol] 1.24 10*3/uL 0.83-4.51 [facility] Automated lymphocyte count a s percentage of total leukocytesOrdered By: Eric West on 07-28-2023 Lymphocytes/100 WBC Auto (Unsp spec) 13.0 % 19-41 [facility] Basophil percentageOrdered B y: Eric West on 07-28-2023 Basophils/100 WBC (Bld) 0.6 % 0-1 [facility] Chloride [Moles/Vol] 102 mmol/L 98-107 [facility] Eosinophils/100 WBC (Bld) 0.1 % 0-5 [facility] Glucose [Mass/Vol] 140 mg/dL 74-106 [facility] Comment on above: Fasting Glucose resu lt greater than or equal to 126 mg/dL suggests DIABETES MELLITUS per A.D.A. criteria. Hemoglobin (Bld) [Mass/Vol] 12.3 g/dL 12.0-15.0 [facility] Monocytes/100 WBC (Bld) 8.3 % 0-10 [facility] Neutrophils (Bld) [#/Vol] 7.4 10*3/uL 2.0-7.7 [facility] Neutrophils/100 WBC (Bld) 77.4 % 47-70 [facility] Potassium [Moles/Vol] 4.0 mmol/L 3.5-5.1 [facility] Comment on above: Slight Hemolysis, Re sult may be falsely increased. Sodium [Moles/Vol] 137 mmol/L 136-145 [facility] WBC (Bld) [#/Vol] 9.6 10*3/uL 4.4-11.0 [facility] Determination of erythrocyte mean corpuscular volume (MCV)Ordered By: Eric West on 07-28-2023 MCV (RBC) [Entitic vol] 88.6 fL 81-99 [facility] Erythrocyte distribution wid th ratioOrdered By: Eric West on 07-28-2023 Erythrocyte distribution width (RBC) [Ratio] 14.9 % 11.6-14.6 [facility] Erythrocyte distribution wid th standard deviationOrdered By: Eric West on 07-28-2023 Erythrocyte distribution width (RBC) [Entitic vol] 47.7 fL 35.1-43.9 [facility] Hematocrit Auto (Bld) [Volum e fraction]Ordered By: Eric West on 07-28-2023 Hematocrit (Bld) [Volume fraction] 39.0 % 37-47 [facility] Immature granulocytes/100 WB C Auto (Bld)Ordered By: Eric West on 07-28-2023 Immature granulocytes/100 WBC (Bld) 0.600 % 0.0-0.9 [facility] Comment on above: IG% - Immature Granu locytes (promyelocytes, myelocytes and metamyelocytes) > 1% indicates that a LEFT SHIFT is Present. Laboratory - Chemistry and C hemistry - challengeOrdered By: Eric West on 07-28-2023 CO2 [Moles/Vol] 25.0 mmol/L 21.0-32.0 [facility] Urea nitrogen/Creatinine [Mass ratio] 12.6 mg/mg 10-20 [facility] - Chemistry and C hemistry - challengeOrdered By: Sophia Wang on 07-28-2023 Magnesium [Mass/Vol] 2.1 mg/dL 1.6-2.6 [facility] Comment on above: Slight Hemolysis, Re sult may be falsely increased. Natriuretic peptide B (Bld) [Mass/Vol] 662.9 pg/mL 0-100 [facility] - CoagulationOrde red By: Eric West on 07-28-2023 INR Coag (Bld) [Relative time] 1.2 {INR} [facility] PT Coag (PPP) [Time] 14.9 s 11.7-14.9 [facility] - Hematology and Cell countsOrdered By: Eric West on 07-28-2023 MCH (RBC) [Entitic mass] 28.0 pg 27.0-32.0 [facility] MCHC (RBC) [Mass/Vol] 31.5 g/dL 32-36 [facility] Nucleated RBC/100 WBC (Bld) [Ratio] 0 % 0-5 [facility] Platelet mean volume (Bld) [Entitic vol] 10.3 fL 6.2-12.0 [facility] Platelets (Bld) [#/Vol] 185 10*3/uL 150-450 [facility] No Panel InformationOrdered By: Sophia Wang on 07-28-2023 Troponin I High Sensitivity 1170 pg/mL 3.0-54.0 [facility] Comment on above: Critical Result(s) C alled at: 18:47:52 07/28/2023 by: JIN JOINER. Results read back by same. Please Note: New Test Units and Gender Specific Reference Ranges. For more information see Policy Stat Procedure [place] High Sensitivity Troponin (TNIH) and attachments. No Panel InformationOrdered By: Eric West on 07-28-2023 Estimated Creatinine Clearance Calc 62.75 ml/min [facility] Estimated GFR (MDRD) Amer 68 mL/min >60 [facility] Comment on above: GFR Calc Estimated GFR (MDRD) Non-Af Amer 56 mL/min >60 [facility] Comment on above: Non- GFR Calc Troponin I High Sensitivity 1595 pg/mL 3.0-54.0 [facility] Comment on above: Critical Result(s) C alled at: 12:40:00 07/28/2023 by: Ha Grady to Shanell Manley. Results read back by same. Please Note: New Test Units and Gender Specific Reference Ranges. For more information see Policy Stat Procedure [place] High Sensitivity Troponin (TNIH) and attachments. Partial Thromboplast Timeon 07-28-2023 aPTT Coag (Bld) [Time] 174.0 s Invalid Interpretation Code 24.1-36.2 [facility] Comment on above: Result Comment: CRIT ICAL VALUE VERIFIED. CALLED TO NARDA WOODS RN PCU 07/28/232050 [place]. RESULTS READ BACK BY SAME . Performed By: #### L 300.4310 #### [facility] [address] [place], [address] RBC Auto (Bld) [#/Vol]Ordere d By: Eric West on 07-28-2023 RBC (Bld) [#/Vol] 4.40 10*6/uL 4.2-5.4 [facility] Serum or plasma calcium barbara urement (mass/volume)Ordered By: Eric West on 07-28-2023 Calcium [Mass/Vol] 9.4 mg/dL 8.5-10.1 [facility] Serum or plasma creatinine m easurement (mass/volume)Ordered By: Eric West on 07-28-2023 Creatinine [Mass/Vol] 1.03 mg/dL 0.55-1.02 [facility] Comment on above: The validity of the calculated GFR & GFRAA in patients over 70 years has not been determined. Clinical correlation is essential. Serum or plasma urea nitroge n measurement (mass/volume)Ordered By: Eric West on 07-28-2023 Urea nitrogen [Mass/Vol] 13 mg/dL 7-18 [facility] Thin prep Papanicolaou smear with manual screeningOrdered By: Eric West on 07-28-2023 Thin prep Papanicolaou smear with manual screening 10 - [facility] Absolute lymphocyte countOrd ered By: Sheeba Velasco on 04-21-2023 Lymphocytes Auto (Unsp spec) [#/Vol] 0.93 10*3/uL 0.83-4.51 [facility] Basophil percentageOrdered B y: Sheeba Velasco on 01-08-2024 Basophils/100 WBC (Bld) 0.4 % 0-1 [facility] Bilirubin [Mass/Vol] 0.30 mg/dL 0.20-1.00 [facility] Comment on above: For patients on eltr ombopag therapy, use of Dimension [place] TBIL is not recommended. Chloride [Moles/Vol] 109 mmol/L 98-107 [facility] Eosinophils/100 WBC (Bld) 1.4 % 0-5 [facility] Glucose [Mass/Vol] 104 mg/dL 74-106 [facility] Comment on above: Fasting Glucose resu lt from 100 to 125 mg/dL suggests IMPAIRED HOMEOSTASIS per A.D.A. criteria. Neutrophils (Bld) [#/Vol] 5.1 10*3/uL 2.0-7.7 [facility] Neutrophils/100 WBC (Bld) 73.7 % 47-70 [facility] Potassium [Moles/Vol] 3.8 mmol/L 3.5-5.1 [facility] Protein [Mass/Vol] 7.3 g/dL 6.4-8.2 [facility] Sodium [Moles/Vol] 139 mmol/L 136-145 [facility] WBC (Bld) [#/Vol] 6.9 10*3/uL 4.4-11.0 [facility] Blood erythrocytes count (nu mber/volume)Ordered By: Sheeba Velasco on 04-21-2023 RBC (Bld) [#/Vol] 4.27 10*6/uL 4.2-5.4 [facility] Blood hemoglobin measurement (mass/volume)Ordered By: Sheeba Velasco on 04-21-2023 Hemoglobin (Bld) [Mass/Vol] 11.9 g/dL 12.0-15.0 [facility] Blood lymphocytes/100 leukoc ytesOrdered By: Sheeba Velasco on 04-21-2023 Lymphocytes/100 WBC (Bld) 13.4 % 19-41 [facility] Blood monocytes/100 leukocyt esOrdered By: Sheeba Velasco on 04-21-2023 Monocytes/100 WBC (Bld) 10.8 % 0-10 [facility] Blood platelet mean volumeOr dered By: Sheeba Velasco on 04-21-2023 Platelet mean volume (Bld) [Entitic vol] 10.9 fL 6.2-12.0 [facility] Determination of erythrocyte mean corpuscular volume (MCV)Ordered By: Sheeba Velasco on 04-21-2023 MCV (RBC) [Entitic vol] 90.9 fL 81-99 [facility] Hematocrit Auto (Bld) [Volum e fraction]Ordered By: Sheebalucie Velasco on 04-21-2023 Hematocrit (Bld) [Volume fraction] 38.8 % 37-47 [facility] Laboratory - Chemistry and C hemistry - challengeOrdered By: [facility] Rod on 04-21-2023 ALP [Catalytic activity/Vol] 79 U/L 45-117 [facility] ALT [Catalytic activity/Vol] 19 U/L 13-56 [facility] CO2 [Moles/Vol] 24.0 mmol/L 21.0-32.0 [facility] Globulin (S) [Mass/Vol] 4.0 g/dL 2.2-4.2 [facility] Urea nitrogen/Creatinine [Mass ratio] 16.0 mg/mg 10-20 [facility] Laboratory - Hematology and Cell countsOrdered By: [facility] Rod on 04-21-2023 Erythrocyte distribution width (RBC) [Entitic vol] 49.5 fL 35.1-43.9 [facility] Erythrocyte distribution width (RBC) [Ratio] 15.5 % 11.6-14.6 [facility] Immature granulocytes/100 WBC (Bld) 0.300 % 0.0-0.9 [facility] Comment on above: IG% - Immature Granu locytes (promyelocytes, myelocytes and metamyelocytes) > 1% indicates that a LEFT SHIFT is Present. MCH (RBC) [Entitic mass] 27.9 pg 27.0-32.0 [facility] Nucleated RBC/100 WBC (Bld) [Ratio] 0 % 0-5 [facility] MCHC Auto (RBC) [Mass/Vol]Or dered By: Sheeba Velasco on 04-21-2023 MCHC (RBC) [Mass/Vol] 30.7 g/dL 32-36 [facility] No Panel InformationOrdered By: Sheebalucie Velasco on 04-21-2023 Estimated GFR (MDRD) Amer 76 mL/min >60 [facility] Comment on above: GFR Calc Estimated GFR (MDRD) Non-Af Amer 63 mL/min >60 [facility] Comment on above: Non- GFR Calc Platelets bldOrdered By: Josh Velasco on 04-21-2023 Platelets (Bld) [#/Vol] 203 10*3/uL 150-450 [facility] Serum or plasma albumin barbara urement (mass/volume)Ordered By: Sheeba Velasco on 04-21-2023 Albumin [Mass/Vol] 3.3 g/dL 3.2-5.0 [facility] Serum or plasma albumin/glob ulin mass ratioOrdered By: Sheeba Velasco on 04-21-2023 Albumin/Globulin [Mass ratio] 0.8 {ratio} 0.9-2.4 [facility] Serum or plasma calcium barbara urement (mass/volume)Ordered By: Sheeba Velasco on 04-21-2023 Calcium [Mass/Vol] 9.0 mg/dL 8.5-10.1 [facility] Serum or plasma creatinine m easurement (mass/volume)Ordered By: Sheeba Velasco on 04-21-2023 Creatinine [Mass/Vol] 0.94 mg/dL 0.55-1.02 [facility] Comment on above: The validity of the calculated GFR & GFRAA in patients over 70 years has not been determined. Clinical correlation is essential. Serum or plasma urea nitroge n measurement (mass/volume)Ordered By: Sheeba Velasco on 04-21-2023 Urea nitrogen [Mass/Vol] 15 mg/dL 7-18 [facility] Thin prep Papanicolaou smear with manual screeningOrdered By: Sheeba Velasco on 04-21-2023 Thin prep Papanicolaou smear with manual screening 16 U/L 15-37 [facility] Thin prep Papanicolaou smear with manual screening 6 5-15 [facility] Absolute lymphocyte countOrd ered By: Sheeba Velasco on 02-12-2023 Lymphocytes Auto (Unsp spec) [#/Vol] 0.93 10*3/uL 0.83-4.51 [facility] Basophil percentageOrdered B y: Sheeba Velasco on 02-12-2023 Basophils/100 WBC (Bld) 0.7 % 0-1 [facility] Bilirubin [Mass/Vol] 0.40 mg/dL 0.20-1.00 [facility] Comment on above: For patients on eltr ombopag therapy, use of Dimension [place] TBIL is not recommended. Chloride [Moles/Vol] 109 mmol/L 98-107 [facility] Eosinophils/100 WBC (Bld) 1.8 % 0-5 [facility] Glucose [Mass/Vol] 110 mg/dL 74-106 [facility] Comment on above: Fasting Glucose resu lt from 100 to 125 mg/dL suggests IMPAIRED HOMEOSTASIS per A.D.A. criteria. Neutrophils (Bld) [#/Vol] 2.8 10*3/uL 2.0-7.7 [facility] Neutrophils/100 WBC (Bld) 64.3 % 47-70 [facility] Potassium [Moles/Vol] 3.9 mmol/L 3.5-5.1 [facility] Protein [Mass/Vol] 6.9 g/dL 6.4-8.2 [facility] Sodium [Moles/Vol] 140 mmol/L 136-145 [facility] WBC (Bld) [#/Vol] 4.4 10*3/uL 4.4-11.0 [facility] Blood erythrocytes count (nu mber/volume)Ordered By: Sheeba Velasco on 02-12-2023 RBC (Bld) [#/Vol] 4.03 10*6/uL 4.2-5.4 [facility] Blood hemoglobin measurement (mass/volume)Ordered By: Sheeba Velasco on 02-12-2023 Hemoglobin (Bld) [Mass/Vol] 10.9 g/dL 12.0-15.0 [facility] Blood lymphocytes/100 leukoc ytesOrdered By: Sheeba Velasco on 02-12-2023 Lymphocytes/100 WBC (Bld) 21.1 % 19-41 [facility] Blood monocytes/100 leukocyt esOrdered By: hSeeba Velasco on 02-12-2023 Monocytes/100 WBC (Bld) 11.6 % 0-10 [facility] Blood platelet mean volumeOr dered By: Sheeba Velasco on 02-12-2023 Platelet mean volume (Bld) [Entitic vol] 11.3 fL 6.2-12.0 [facility] Determination of erythrocyte mean corpuscular volume (MCV)Ordered By: Sheeba Velasco on 02-12-2023 MCV (RBC) [Entitic vol] 92.3 fL 81-99 [facility] Hematocrit Auto (Bld) [Volum e fraction]Ordered By: Sheebalucie Velasco on 02-12-2023 Hematocrit (Bld) [Volume fraction] 37.2 % 37-47 [facility] Laboratory - Chemistry and C hemistry - challengeOrdered By: Sheebalucie Velasco on 02-12-2023 ALP [Catalytic activity/Vol] 73 U/L 45-117 [facility] ALT [Catalytic activity/Vol] 19 U/L 13-56 [facility] CO2 [Moles/Vol] 24.0 mmol/L 21.0-32.0 [facility] Globulin (S) [Mass/Vol] 3.7 g/dL 2.2-4.2 [facility] Urea nitrogen/Creatinine [Mass ratio] 14.8 mg/mg 10-20 [facility] Laboratory - Hematology and Cell countsOrdered By: [facility] Rod on 02-12-2023 Erythrocyte distribution width (RBC) [Entitic vol] 51.5 fL 35.1-43.9 [facility] Erythrocyte distribution width (RBC) [Ratio] 15.5 % 11.6-14.6 [facility] Immature granulocytes/100 WBC (Bld) 0.500 % 0.0-0.9 [facility] Comment on above: IG% - Immature Granu locytes (promyelocytes, myelocytes and metamyelocytes) > 1% indicates that a LEFT SHIFT is Present. MCH (RBC) [Entitic mass] 27.0 pg 27.0-32.0 [facility] Nucleated RBC/100 WBC (Bld) [Ratio] 0 % 0-5 [facility] MCHC Auto (RBC) [Mass/Vol]Or dered By: Sheebalucie Velasco on 02-12-2023 MCHC (RBC) [Mass/Vol] 29.3 g/dL 32-36 [facility] No Panel InformationOrdered By: Sheeba Velasco on 02-12-2023 Estimated GFR (MDRD) Amer 75 mL/min >60 [facility] Comment on above: GFR Calc Estimated GFR (MDRD) Non-Af Amer 62 mL/min >60 [facility] Comment on above: Non- GFR Calc Platelets bldOrdered By: Josh Velasco on 02-12-2023 Platelets (Bld) [#/Vol] 203 10*3/uL 150-450 [facility] Serum or plasma albumin barbara urement (mass/volume)Ordered By: Sheeba Velasco on 02-12-2023 Albumin [Mass/Vol] 3.2 g/dL 3.2-5.0 [facility] Serum or plasma albumin/glob ulin mass ratioOrdered By: Sheeba Velasco on 02-12-2023 Albumin/Globulin [Mass ratio] 0.9 {ratio} 0.9-2.4 [facility] Serum or plasma calcium barbara urement (mass/volume)Ordered By: Sheeba Velasco on 02-12-2023 Calcium [Mass/Vol] 9.1 mg/dL 8.5-10.1 [facility] Serum or plasma creatinine m easurement (mass/volume)Ordered By: Sheeba Velasco on 02-12-2023 Creatinine [Mass/Vol] 0.95 mg/dL 0.55-1.02 [facility] Comment on above: The validity of the calculated GFR & GFRAA in patients over 70 years has not been determined. Clinical correlation is essential. Serum or plasma urea nitroge n measurement (mass/volume)Ordered By: Sheeba Velasco on 02-12-2023 Urea nitrogen [Mass/Vol] 14 mg/dL 7-18 [facility] Thin prep Papanicolaou smear with manual screeningOrdered By: Sheeba Velasco on 02-12-2023 Thin prep Papanicolaou smear with manual screening 18 U/L 15-37 [facility] Thin prep Papanicolaou smear with manual screening 7 5-15 [facility] XR TOE AP/LAT/OBL RIGHTon [facility] XR Toes - right 3 Viewson IMPRESSION: Proximal and distal phalanx fractures in the second digit. Mid Level Developer: LISA Transcribe Date/Time: Jan 29 2023 12:49P Dictated by : PATSY LEVY MD This examination was interpreted and the report reviewed and electronically signed by: PATSY LEVY MD on Jan 29 2023 12:53PM [facility] DIVISION OF RADIOLOGY * * *Final [...] soft tissue swelling. DIVISION OF RADIOLOGY Provider, [facility] - 01/29/2023 * * *Final Report* * [...] distal phalanx fractures in the second digit. Mid Level Developer: LISA Transcribe Date/Time: Jan 29 2023 12:49P Dictated by : PATSY LEVY MD This examination was interpreted and the report reviewed and electronically signed by: PATSY LEVY MD on Jan 29 2023 12:53PM EST [facility] Radiology Study observation (narrative) [facility] XR Toes - right 3 ViewsOrder ed By: [facility] Provider on 01-29-2023 [facility] Absolute lymphocyte countOrd ered By: Sheeba Velasco on 12-13-2022 Lymphocytes Auto (Unsp spec) [#/Vol] 1.17 10*3/uL 0.83-4.51 [facility] Basophil percentageOrdered B y: Sheeba Velasco on 12-13-2022 Basophils/100 WBC (Bld) 0.8 % 0-1 [facility] Bilirubin [Mass/Vol] 0.30 mg/dL 0.20-1.00 [facility] Comment on above: For patients on eltr ombopag therapy, use of Dimension [place] TBIL is not recommended. Chloride [Moles/Vol] 108 mmol/L 98-107 [facility] Eosinophils/100 WBC (Bld) 2.0 % 0-5 [facility] Glucose [Mass/Vol] 99 mg/dL 74-106 [facility] Neutrophils (Bld) [#/Vol] 2.3 10*3/uL 2.0-7.7 [facility] Neutrophils/100 WBC (Bld) 56.8 % 47-70 [facility] Potassium [Moles/Vol] 3.7 mmol/L 3.5-5.1 [facility] Protein [Mass/Vol] 6.8 g/dL 6.4-8.2 [facility] Sodium [Moles/Vol] 141 mmol/L 136-145 [facility] WBC (Bld) [#/Vol] 4.0 10*3/uL 4.4-11.0 [facility] Blood erythrocytes count (nu mber/volume)Ordered By: Sheeba Velasco on 12-13-2022 RBC (Bld) [#/Vol] 4.30 10*6/uL 4.2-5.4 [facility] Blood hemoglobin measurement (mass/volume)Ordered By: Sheeba Velasco on 12-13-2022 Hemoglobin (Bld) [Mass/Vol] 11.5 g/dL 12.0-15.0 [facility] Blood lymphocytes/100 leukoc ytesOrdered By: Sheeba Velasco on 12-13-2022 Lymphocytes/100 WBC (Bld) 29.3 % 19-41 [facility] Blood monocytes/100 leukocyt esOrdered By: Sheeba Velasco on 12-13-2022 Monocytes/100 WBC (Bld) 10.8 % 0-10 [facility] Blood platelet mean volumeOr dered By: Sheeba Velasco on 12-13-2022 Platelet mean volume (Bld) [Entitic vol] 10.6 fL 6.2-12.0 [facility] Determination of erythrocyte mean corpuscular volume (MCV)Ordered By: Sheeba Velasco on 12-13-2022 MCV (RBC) [Entitic vol] 90.2 fL 81-99 [facility] Hematocrit Auto (Bld) [Volum e fraction]Ordered By: Sheeba Velasco on 12-13-2022 Hematocrit (Bld) [Volume fraction] 38.8 % 37-47 [facility] Laboratory - Chemistry and C hemistry - challengeOrdered By: Sheeba Velasco on 12-13-2022 ALP [Catalytic activity/Vol] 71 U/L 45-117 [facility] ALT [Catalytic activity/Vol] 15 U/L 13-56 [facility] CO2 [Moles/Vol] 26.0 mmol/L 21.0-32.0 [facility] Globulin (S) [Mass/Vol] 3.6 g/dL 2.2-4.2 [facility] Urea nitrogen/Creatinine [Mass ratio] 9.7 mg/mg 10-20 [facility] Laboratory - Hematology and Cell countsOrdered By: Sheeba Velasco on 12-13-2022 Erythrocyte distribution width (RBC) [Entitic vol] 51.7 fL 35.1-43.9 [facility] Erythrocyte distribution width (RBC) [Ratio] 15.8 % 11.6-14.6 [facility] Immature granulocytes/100 WBC (Bld) 0.300 % 0.0-0.9 [facility] Comment on above: IG% - Immature Granu locytes (promyelocytes, myelocytes and metamyelocytes) > 1% indicates that a LEFT SHIFT is Present. MCH (RBC) [Entitic mass] 26.7 pg 27.0-32.0 [facility] Nucleated RBC/100 WBC (Bld) [Ratio] 0 % 0-5 [facility] MCHC Auto (RBC) [Mass/Vol]Or dered By: Sheeba Velasco on 12-13-2022 MCHC (RBC) [Mass/Vol] 29.6 g/dL 32-36 [facility] No Panel InformationOrdered By: Sheeba Velasco on 12-13-2022 Estimated GFR (MDRD) Amer 77 mL/min >60 [facility] Comment on above: GFR Calc Estimated GFR (MDRD) Non-Af Amer 64 mL/min >60 [facility] Comment on above: Non- GFR Calc Platelets bldOrdered By: Josh Velasco on 12-13-2022 Platelets (Bld) [#/Vol] 199 10*3/uL 150-450 [facility] Serum or plasma albumin barbara urement (mass/volume)Ordered By: Sheeba Velasco on 12-13-2022 Albumin [Mass/Vol] 3.2 g/dL 3.2-5.0 [facility] Serum or plasma albumin/glob ulin mass ratioOrdered By: Sheeba Velasco on 12-13-2022 Albumin/Globulin [Mass ratio] 0.9 {ratio} 0.9-2.4 [facility] Serum or plasma calcium barbara urement (mass/volume)Ordered By: Sheeba Velasco on 12-13-2022 Calcium [Mass/Vol] 9.0 mg/dL 8.5-10.1 [facility] Serum or plasma creatinine m easurement (mass/volume)Ordered By: Sheeba Velasco on 12-13-2022 Creatinine [Mass/Vol] 0.92 mg/dL 0.55-1.02 [facility] Comment on above: The validity of the calculated GFR & GFRAA in patients over 70 years has not been determined. Clinical correlation is essential. Serum or plasma urea nitroge n measurement (mass/volume)Ordered By: Sheeba Velasco on 12-13-2022 Urea nitrogen [Mass/Vol] 9 mg/dL 7-18 [facility] Thin prep Papanicolaou smear with manual screeningOrdered By: Sheeba Velasco on 12-13-2022 Thin prep Papanicolaou smear with manual screening 15 U/L 15-37 [facility] Thin prep Papanicolaou smear with manual screening 7 5-15 [facility] Absolute lymphocyte countOrd ered By: Sheeba Velasco on 10-03-2022 Lymphocytes Auto (Unsp spec) [#/Vol] 2.36 10*3/uL 0.83-4.51 [facility] Basophil percentageOrdered B y: Sheeba Velasco on 10-03-2022 Basophils/100 WBC (Bld) 0.3 % 0-1 [facility] Bilirubin [Mass/Vol] 0.30 mg/dL 0.20-1.00 [facility] Comment on above: For patients on eltr ombopag therapy, use of Dimension [place] TBIL is not recommended. Chloride [Moles/Vol] 108 mmol/L 98-107 [facility] Eosinophils/100 WBC (Bld) 0.3 % 0-5 [facility] Glucose [Mass/Vol] 88 mg/dL 74-106 [facility] Neutrophils (Bld) [#/Vol] 3.2 10*3/uL 2.0-7.7 [facility] Neutrophils/100 WBC (Bld) 52.1 % 47-70 [facility] Potassium [Moles/Vol] 3.3 mmol/L 3.5-5.1 [facility] Protein [Mass/Vol] 6.9 g/dL 6.4-8.2 [facility] Sodium [Moles/Vol] 141 mmol/L 136-145 [facility] WBC (Bld) [#/Vol] 6.2 10*3/uL 4.4-11.0 [facility] Blood erythrocytes count (nu mber/volume)Ordered By: Sheeba Velasco on 10-03-2022 RBC (Bld) [#/Vol] 4.20 10*6/uL 4.2-5.4 [facility] Blood hemoglobin measurement (mass/volume)Ordered By: Sheeba Velasco on 10-03-2022 Hemoglobin (Bld) [Mass/Vol] 11.0 g/dL 12.0-15.0 [facility] Blood lymphocytes/100 leukoc ytesOrdered By: Sheeba Velasco on 10-03-2022 Lymphocytes/100 WBC (Bld) 38.1 % 19-41 [facility] Blood monocytes/100 leukocyt esOrdered By: Sheeba Velasco on 10-03-2022 Monocytes/100 WBC (Bld) 8.7 % 0-10 [facility] Blood platelet mean volumeOr dered By: Sheeba Velasco on 10-03-2022 Platelet mean volume (Bld) [Entitic vol] 9.6 fL 6.2-12.0 [facility] Determination of erythrocyte mean corpuscular volume (MCV)Ordered By: Sheeba Velasco on 10-03-2022 MCV (RBC) [Entitic vol] 87.4 fL 81-99 [facility] Hematocrit Auto (Bld) [Volum e fraction]Ordered By: Sheeba Velasco on 10-03-2022 Hematocrit (Bld) [Volume fraction] 36.7 % 37-47 [facility] Laboratory - Chemistry and C hemistry - challengeOrdered By: [facility] Rod on 10-03-2022 ALP [Catalytic activity/Vol] 63 U/L 45-117 [facility] ALT [Catalytic activity/Vol] 14 U/L 13-56 [facility] CO2 [Moles/Vol] 25.0 mmol/L 21.0-32.0 [facility] Globulin (S) [Mass/Vol] 3.9 g/dL 2.2-4.2 [facility] Urea nitrogen/Creatinine [Mass ratio] 16.9 mg/mg 10-20 [facility] Laboratory - Hematology and Cell countsOrdered By: Sheeba Velasco on 10-03-2022 Erythrocyte distribution width (RBC) [Entitic vol] 47.7 fL 35.1-43.9 [facility] Erythrocyte distribution width (RBC) [Ratio] 15.6 % 11.6-14.6 [facility] Immature granulocytes/100 WBC (Bld) 0.500 % 0.0-0.9 [facility] Comment on above: IG% - Immature Granu locytes (promyelocytes, myelocytes and metamyelocytes) > 1% indicates that a LEFT SHIFT is Present. MCH (RBC) [Entitic mass] 26.2 pg 27.0-32.0 [facility] Nucleated RBC/100 WBC (Bld) [Ratio] 0 % 0-5 [facility] MCHC Auto (RBC) [Mass/Vol]Or dered By: Sheeba Velasco on 10-03-2022 MCHC (RBC) [Mass/Vol] 30.0 g/dL 32-36 [facility] No Panel InformationOrdered By: Sheeba Velasco on 10-03-2022 Estimated GFR (MDRD) Amer 88 mL/min >60 [facility] Comment on above: GFR Calc Estimated GFR (MDRD) Non-Af Amer 72 mL/min >60 [facility] Comment on above: Non- GFR Calc Platelets bldOrdered By: Josh Velasco on 10-03-2022 Platelets (Bld) [#/Vol] 232 10*3/uL 150-450 [facility] Serum or plasma albumin barbara urement (mass/volume)Ordered By: Sheeba Velasco on 10-03-2022 Albumin [Mass/Vol] 3.0 g/dL 3.2-5.0 [facility] Serum or plasma albumin/glob ulin mass ratioOrdered By: Sheeba Velasco on 10-03-2022 Albumin/Globulin [Mass ratio] 0.8 {ratio} 0.9-2.4 [facility] Serum or plasma calcium barbara urement (mass/volume)Ordered By: Sheeba Velasco on 10-03-2022 Calcium [Mass/Vol] 9.2 mg/dL 8.5-10.1 [facility] Serum or plasma creatinine m easurement (mass/volume)Ordered By: Sheeba Velasco on 10-03-2022 Creatinine [Mass/Vol] 0.83 mg/dL 0.55-1.02 [facility] Comment on above: The validity of the calculated GFR & GFRAA in patients over 70 years has not been determined. Clinical correlation is essential. Serum or plasma urea nitroge n measurement (mass/volume)Ordered By: Sheeba Velasco on 10-03-2022 Urea nitrogen [Mass/Vol] 14 mg/dL 7-18 [facility] Thin prep Papanicolaou smear with manual screeningOrdered By: Sheeba Velasco on 10-03-2022 Thin prep Papanicolaou smear with manual screening 11 U/L 15-37 [facility] Thin prep Papanicolaou smear with manual screening 8 5-15 [facility] XR CHEST 2V FRONTAL/LATon [facility] XR Chest PA and Lateralon IMPRESSION: No acute radiographic abnormality. Mid Level Developer: LISA Transcribe Date/Time: Sep 26 2022 9:28A Dictated by : VASQUEZ BESS MD This examination was interpreted and the report reviewed and electronically signed by: VASQUEZ BESS MD on Sep 26 2022 9:32AM [facility] DIVISION OF RADIOLOGY * * *Final [...] the thoracic spine. DIVISION OF RADIOLOGY Provider, [facility] - 09/26/2022 * * *Final Report* * [...] spine. IMPRESSION IMPRESSION: No acute radiographic abnormality. Mid Level Developer: PSCB Transcribe Date/Time: Sep 26 2022 9:28A Dictated by : VASQUEZ BESS MD This examination was interpreted and the report reviewed and electronically signed by: VASQUEZ BESS MD on Sep 26 2022 9:32AM EST [facility] Radiology Study observation (narrative) [facility] XR Chest PA and LateralOrder ed By: [facility] Provider on 09-26-2022 [facility] Absolute lymphocyte countOrd ered By: Dr. Velasco on 09-05-2022 Lymphocytes Auto (Unsp spec) [#/Vol] 1.04 10*3/uL 0.83-4.51 [facility] Basophil percentageOrdered B y: Dr. Velasco on 09-05-2022 Basophils/100 WBC (Bld) 0.8 % 0-1 [facility] Bilirubin [Mass/Vol] 0.30 mg/dL 0.20-1.00 [facility] Comment on above: For patients on eltr ombopag therapy, use of Dimension [place] TBIL is not recommended. Chloride [Moles/Vol] 109 mmol/L 98-107 [facility] Eosinophils/100 WBC (Bld) 0.8 % 0-5 [facility] Glucose [Mass/Vol] 109 mg/dL 74-106 [facility] Comment on above: Fasting Glucose resu lt from 100 to 125 mg/dL suggests IMPAIRED HOMEOSTASIS per A.D.A. criteria. Neutrophils (Bld) [#/Vol] 2.4 10*3/uL 2.0-7.7 [facility] Neutrophils/100 WBC (Bld) 60.5 % 47-70 [facility] Potassium [Moles/Vol] 3.9 mmol/L 3.5-5.1 [facility] Protein [Mass/Vol] 6.8 g/dL 6.4-8.2 [facility] Sodium [Moles/Vol] 141 mmol/L 136-145 [facility] WBC (Bld) [#/Vol] 4.0 10*3/uL 4.4-11.0 [facility] Blood erythrocytes count (nu mber/volume)Ordered By: Dr. Velasco on 09-05-2022 RBC (Bld) [#/Vol] 4.00 10*6/uL 4.2-5.4 [facility] Blood hemoglobin measurement (mass/volume)Ordered By: Dr. Velasco on 09-05-2022 Hemoglobin (Bld) [Mass/Vol] 10.4 g/dL 12.0-15.0 [facility] Blood lymphocytes/100 leukoc ytesOrdered By: Dr. Velasco on 09-05-2022 Lymphocytes/100 WBC (Bld) 26.1 % 19-41 [facility] Blood monocytes/100 leukocyt esOrdered By: Dr. Velasco on 09-05-2022 Monocytes/100 WBC (Bld) 11.5 % 0-10 [facility] Blood platelet mean volumeOr dered By: Dr. Velasco on 09-05-2022 Platelet mean volume (Bld) [Entitic vol] 11.0 fL 6.2-12.0 [facility] Determination of erythrocyte mean corpuscular volume (MCV)Ordered By: Dr. Velasco on 09-05-2022 MCV (RBC) [Entitic vol] 87.0 fL 81-99 [facility] Hematocrit Auto (Bld) [Volum e fraction]Ordered By: Dr. Velasco on 09-05-2022 Hematocrit (Bld) [Volume fraction] 34.8 % 37-47 [facility] Laboratory - Chemistry and C hemistry - challengeOrdered By: Dr. Velasco on 09-05-2022 ALP [Catalytic activity/Vol] 69 U/L 45-117 [facility] ALT [Catalytic activity/Vol] 16 U/L 13-56 [facility] CO2 [Moles/Vol] 26.0 mmol/L 21.0-32.0 [facility] Globulin (S) [Mass/Vol] 3.9 g/dL 2.2-4.2 [facility] [facility] Urea nitrogen/Creatinine [Mass ratio] 14.3 mg/mg 10-20 [facility] Laboratory - Hematology and Cell countsOrdered By: Dr. Velasco on 09-05-2022 Erythrocyte distribution width (RBC) [Entitic vol] 46.7 fL 35.1-43.9 [facility] Erythrocyte distribution width (RBC) [Ratio] 14.6 % 11.6-14.6 [facility] Immature granulocytes/100 WBC (Bld) 0.300 % 0.0-0.9 [facility] Comment on above: IG% - Immature Granu locytes (promyelocytes, myelocytes and metamyelocytes) > 1% indicates that a LEFT SHIFT is Present. MCH (RBC) [Entitic mass] 26.0 pg 27.0-32.0 [facility] Nucleated RBC/100 WBC (Bld) [Ratio] 0 % 0-5 [facility] MCHC Auto (RBC) [Mass/Vol]Or dered By: Dr. Velasco on 09-05-2022 MCHC (RBC) [Mass/Vol] 29.9 g/dL 32-36 [facility] No Panel InformationOrdered By: Dr. Velasco on 09-05-2022 Estimated GFR (MDRD) Amer 86 mL/min >60 [facility] Comment on above: GFR Calc Estimated GFR (MDRD) Non-Af Amer 71 mL/min >60 [facility] Comment on above: Non- GFR Calc Platelets bldOrdered By: Dr. Velasco on 09-05-2022 Platelets (Bld) [#/Vol] 205 10*3/uL 150-450 [facility] Serum or plasma albumin barbara urement (mass/volume)Ordered By: Dr. Velasco on 09-05-2022 Albumin [Mass/Vol] 2.9 g/dL 3.2-5.0 [facility] Serum or plasma albumin/glob ulin mass ratioOrdered By: Dr. Velasco on 09-05-2022 Albumin/Globulin [Mass ratio] 0.7 {ratio} 0.9-2.4 [facility] Serum or plasma calcium barbara urement (mass/volume)Ordered By: Dr. Velasco on 09-05-2022 Calcium [Mass/Vol] 9.1 mg/dL 8.5-10.1 [facility] Serum or plasma creatinine m easurement (mass/volume)Ordered By: Dr. Velasco on 09-05-2022 Creatinine [Mass/Vol] 0.84 mg/dL 0.55-1.02 [facility] Comment on above: The validity of the calculated GFR & GFRAA in patients over 70 years has not been determined. Clinical correlation is essential. Serum or plasma urea nitroge n measurement (mass/volume)Ordered By: Dr. Velasco on 09-05-2022 Urea nitrogen [Mass/Vol] 12 mg/dL 7-18 [facility] Thin prep Papanicolaou smear with manual screeningOrdered By: Dr. Velasco on 09-05-2022 Thin prep Papanicolaou smear with manual screening 14 U/L 15-37 [facility] Thin prep Papanicolaou smear with manual screening 6 5-15 [facility] Absolute lymphocyte countOrd ered By: Dr. Lozano on 08-22-2022 Lymphocytes Auto (Unsp spec) [#/Vol] 2.37 10*3/uL 0.83-4.51 [facility] Basophil percentageOrdered B y: Dr. Lozano on 08-22-2022 Basophils/100 WBC (Bld) 0.5 % 0-1 [facility] Bilirubin [Mass/Vol] 0.30 mg/dL 0.20-1.00 [facility] Comment on above: For patients on eltr ombopag therapy, use of Dimension [place] TBIL is not recommended. Chloride [Moles/Vol] 111 mmol/L 98-107 [facility] Eosinophils/100 WBC (Bld) 0.3 % 0-5 [facility] Glucose [Mass/Vol] 92 mg/dL 74-106 [facility] Neutrophils (Bld) [#/Vol] 3.6 10*3/uL 2.0-7.7 [facility] Neutrophils/100 WBC (Bld) 53.5 % 47-70 [facility] Potassium [Moles/Vol] 3.3 mmol/L 3.5-5.1 [facility] Protein [Mass/Vol] 6.7 g/dL 6.4-8.2 [facility] Sodium [Moles/Vol] 144 mmol/L 136-145 [facility] WBC (Bld) [#/Vol] 6.6 10*3/uL 4.4-11.0 [facility] Blood erythrocytes count (nu mber/volume)Ordered By: Dr. Lozano on 08-22-2022 RBC (Bld) [#/Vol] 4.03 10*6/uL 4.2-5.4 [facility] Blood hemoglobin measurement (mass/volume)Ordered By: Dr. Lozano on 08-22-2022 Hemoglobin (Bld) [Mass/Vol] 10.3 g/dL 12.0-15.0 [facility] Blood lymphocytes/100 leukoc ytesOrdered By: Dr. Lozano on 08-22-2022 Lymphocytes/100 WBC (Bld) 35.7 % 19-41 [facility] Blood monocytes/100 leukocyt esOrdered By: Dr. Lozano on 08-22-2022 Monocytes/100 WBC (Bld) 9.5 % 0-10 [facility] Blood platelet mean volumeOr dered By: Dr. Lozano on 08-22-2022 Platelet mean volume (Bld) [Entitic vol] 11.0 fL 6.2-12.0 [facility] Determination of erythrocyte mean corpuscular volume (MCV)Ordered By: Dr. Lozano on 08-22-2022 MCV (RBC) [Entitic vol] 88.6 fL 81-99 [facility] Erythrocyte sedimentation ra teOrdered By: Dr. Lozano on 08-22-2022 ESR (Bld) [Velocity] 25 mm/h 0-30 [facility] Hematocrit Auto (Bld) [Volum e fraction]Ordered By: Dr. Lozano on 08-22-2022 Hematocrit (Bld) [Volume fraction] 35.7 % 37-47 [facility] Laboratory - Chemistry and C hemistry - challengeOrdered By: Dr. Lozano on 08-22-2022 ALP [Catalytic activity/Vol] 67 U/L 45-117 [facility] ALT [Catalytic activity/Vol] 16 U/L 13-56 [facility] CO2 [Moles/Vol] 25.0 mmol/L 21.0-32.0 [facility] Globulin (S) [Mass/Vol] 3.8 g/dL 2.2-4.2 [facility] Magnesium [Mass/Vol] 2.1 mg/dL 1.6-2.6 [facility] Urea nitrogen/Creatinine [Mass ratio] 20.9 mg/mg 10-20 [facility] Laboratory - Hematology and Cell countsOrdered By: Dr. Lozano on 08-22-2022 Erythrocyte distribution width (RBC) [Entitic vol] 46.8 fL 35.1-43.9 [facility] Erythrocyte distribution width (RBC) [Ratio] 14.6 % 11.6-14.6 [facility] Immature granulocytes/100 WBC (Bld) 0.500 % 0.0-0.9 [facility] Comment on above: IG% - Immature Granu locytes (promyelocytes, myelocytes and metamyelocytes) > 1% indicates that a LEFT SHIFT is Present. MCH (RBC) [Entitic mass] 25.6 pg 27.0-32.0 [facility] Nucleated RBC/100 WBC (Bld) [Ratio] 0 % 0-5 [facility] MCHC Auto (RBC) [Mass/Vol]Or dered By: Dr. Lozano on 08-22-2022 MCHC (RBC) [Mass/Vol] 28.9 g/dL 32-36 [facility] No Panel InformationOrdered By: Dr. Lozano on 08-22-2022 Estimated GFR (MDRD) Amer 89 mL/min >60 [facility] Comment on above: GFR Calc Estimated GFR (MDRD) Non-Af Amer 74 mL/min >60 [facility] Comment on above: Non- GFR Calc Platelets bldOrdered By: Dr. Lozano on 08-22-2022 Platelets (Bld) [#/Vol] 233 10*3/uL 150-450 [facility] Serum or plasma C reactive p rotein measurement (mass/volume)Ordered By: Dr. Lozano on 08-22-2022 CRP [Mass/Vol] 8.73 mg/L 0.0-3.0 [facility] Comment on above: C-Reactive Protein ( CRP) provides useful information for thediagnosis, therapy and monitoring of inflammatory processesand associated diseases. For the evaluation of Relative Riskfor Cardiovascular Disease, a High Sensitivity CRP (HSCRP)should be ordered. Serum or plasma albumin barbara urement (mass/volume)Ordered By: Dr. Lozano on 08-22-2022 Albumin [Mass/Vol] 2.9 g/dL 3.2-5.0 [facility] Serum or plasma albumin/glob ulin mass ratioOrdered By: Dr. Lozano on 08-22-2022 Albumin/Globulin [Mass ratio] 0.8 {ratio} 0.9-2.4 [facility] Serum or plasma calcium barbara urement (mass/volume)Ordered By: Dr. Lozano on 08-22-2022 Calcium [Mass/Vol] 8.7 mg/dL 8.5-10.1 [facility] Serum or plasma creatinine m easurement (mass/volume)Ordered By: Dr. Lozano on 08-22-2022 Creatinine [Mass/Vol] 0.81 mg/dL 0.55-1.02 [facility] Comment on above: The validity of the calculated GFR & GFRAA in patients over 70 years has not been determined. Clinical correlation is essential. Serum or plasma urea nitroge n measurement (mass/volume)Ordered By: Dr. Lozano on 08-22-2022 Urea nitrogen [Mass/Vol] 17 mg/dL 7-18 [facility] Serum or plasma uric acid me asurement (mass/volume)Ordered By: Dr. Lozano on 08-22-2022 Urate [Mass/Vol] 4.0 mg/dL 2.6-6.0 [facility] Comment on above: The drugs N-Acetylcy steine and Metamizole may falsely depress this assay. Thin prep Papanicolaou smear with manual screeningOrdered By: Dr. Lozano on 08-22-2022 Thin prep Papanicolaou smear with manual screening 12 U/L 15-37 [facility] Thin prep Papanicolaou smear with manual screening 8 5-15 [facility] Absolute lymphocyte countOrd ered By: Dr. Velasco on 06-12-2022 Lymphocytes Auto (Unsp spec) [#/Vol] 1.38 10*3/uL 0.83-4.51 [facility] Basophil percentageOrdered B y: Dr. Velasco on 06-12-2022 Basophils/100 WBC (Bld) 0.8 % 0-1 [facility] Bilirubin [Mass/Vol] 0.40 mg/dL 0.20-1.00 [facility] Comment on above: For patients on eltr ombopag therapy, use of Dimension [place] TBIL is not recommended. Chloride [Moles/Vol] 110 mmol/L 98-[address] [facility] Eosinophils/100 WBC (Bld) 0.6 % 0-5 [facility] Glucose [Mass/Vol] 111 mg/dL 74-106 [facility] Comment on above: Fasting Glucose resu lt from 100 to 125 mg/dL suggests IMPAIRED HOMEOSTASIS per A.D.A. criteria. Neutrophils (Bld) [#/Vol] 2.9 10*3/uL 2.0-7.7 [facility] Neutrophils/100 WBC (Bld) 58.8 % 47-70 [facility] Potassium [Moles/Vol] 3.8 mmol/L 3.5-5.1 [facility] Protein [Mass/Vol] 7.1 g/dL 6.4-8.2 [facility] Sodium [Moles/Vol] 141 mmol/L 136-145 [facility] WBC (Bld) [#/Vol] 4.9 10*3/uL 4.4-11.0 [facility] Blood erythrocytes count (nu mber/volume)Ordered By: Dr. Velasco on 06-12-2022 RBC (Bld) [#/Vol] 4.46 10*6/uL 4.2-5.4 [facility] Blood hemoglobin measurement (mass/volume)Ordered By: Dr. Velasco on 06-12-2022 Hemoglobin (Bld) [Mass/Vol] 11.3 g/dL 12.0-15.0 [facility] Blood lymphocytes/100 leukoc ytesOrdered By: Dr. Velasco on 06-12-2022 Lymphocytes/100 WBC (Bld) 28.5 % 19-41 [facility] Blood monocytes/100 leukocyt esOrdered By: Dr. Velasco on 06-12-2022 Monocytes/100 WBC (Bld) 10.9 % 0-10 [facility] Blood platelet mean volumeOr dered By: Dr. Velasco on 06-12-2022 Platelet mean volume (Bld) [Entitic vol] 11.4 fL 6.2-12.0 [facility] Determination of erythrocyte mean corpuscular volume (MCV)Ordered By: Dr. Velasco on 06-12-2022 MCV (RBC) [Entitic vol] 86.1 fL 81-99 [facility] Hematocrit Auto (Bld) [Volum e fraction]Ordered By: Dr. Velasco on 06-12-2022 Hematocrit (Bld) [Volume fraction] 38.4 % 37-47 [facility] Laboratory - Chemistry and C hemistry - challengeOrdered By: Dr. Velasoc on 06-12-2022 ALP [Catalytic activity/Vol] 67 U/L 45-117 [facility] ALT [Catalytic activity/Vol] 14 U/L 13-56 [facility] CO2 [Moles/Vol] 24.0 mmol/L 21.0-32.0 [facility] Globulin (S) [Mass/Vol] 3.9 g/dL 2.2-4.2 [facility] Urea nitrogen/Creatinine [Mass ratio] 16.8 mg/mg 10-20 [facility] Laboratory - Hematology and Cell countsOrdered By: Dr. Velasco on 06-12-2022 Erythrocyte distribution width (RBC) [Entitic vol] 45.8 fL 35.1-43.9 [facility] Erythrocyte distribution width (RBC) [Ratio] 14.6 % 11.6-14.6 [facility] Immature granulocytes/100 WBC (Bld) 0.400 % 0.0-0.9 [facility] Comment on above: IG% - Immature Granu locytes (promyelocytes, myelocytes and metamyelocytes) > 1% indicates that a LEFT SHIFT is Present. MCH (RBC) [Entitic mass] 25.3 pg 27.0-32.0 [facility] Nucleated RBC/100 WBC (Bld) [Ratio] 0 % 0-5 [facility] MCHC Auto (RBC) [Mass/Vol]Or dered By: Dr. Velasco on 06-12-2022 MCHC (RBC) [Mass/Vol] 29.4 g/dL 32-36 [facility] No Panel InformationOrdered By: Dr. Velasco on 06-12-2022 Estimated GFR (MDRD) Amer 75 mL/min >60 [facility] Comment on above: GFR Calc Estimated GFR (MDRD) Non-Af Amer 62 mL/min >60 [facility] Comment on above: Non- GFR Calc Platelets bldOrdered By: Dr. Velasco on 06-12-2022 Platelets (Bld) [#/Vol] 219 10*3/uL 150-450 [facility] Serum or plasma albumin barbara urement (mass/volume)Ordered By: Dr. Velasco on 06-12-2022 Albumin [Mass/Vol] 3.2 g/dL 3.2-5.0 [facility] Serum or plasma albumin/glob ulin mass ratioOrdered By: Dr. Velasco on 06-12-2022 Albumin/Globulin [Mass ratio] 0.8 {ratio} 0.9-2.4 [facility] Serum or plasma calcium barbara urement (mass/volume)Ordered By: Dr. Velasco on 06-12-2022 Calcium [Mass/Vol] 9.3 mg/dL 8.5-10.1 [facility] Serum or plasma creatinine m easurement (mass/volume)Ordered By: Dr. Velasco on 06-12-2022 Creatinine [Mass/Vol] 0.95 mg/dL 0.55-1.02 [facility] Comment on above: The validity of the calculated GFR & GFRAA in patients over 70 years has not been determined. Clinical correlation is essential. Serum or plasma urea nitroge n measurement (mass/volume)Ordered By: Dr. Velasco on 06-12-2022 Urea nitrogen [Mass/Vol] 16 mg/dL 7-18 [facility] Thin prep Papanicolaou smear with manual screeningOrdered By: Dr. Velasco on 06-12-2022 Thin prep Papanicolaou smear with manual screening 15 U/L 15-37 [facility] Thin prep Papanicolaou smear with manual screening 7 5-15 [facility] Absolute lymphocyte countOrd ered By: Dr. Velasco on 04-22-2022 Lymphocytes Auto (Unsp spec) [#/Vol] 1.48 10*3/uL 0.83-4.51 [facility] Basophil percentageOrdered B y: Dr. Velasco on 04-22-2022 Basophils/100 WBC (Bld) 0.6 % 0-1 [facility] Bilirubin [Mass/Vol] 0.40 mg/dL 0.20-1.00 [facility] Comment on above: For patients on eltr ombopag therapy, use of Dimension [place] TBIL is not recommended. Chloride [Moles/Vol] 105 mmol/L 98-107 [facility] Eosinophils/100 WBC (Bld) 1.4 % 0-5 [facility] Glucose [Mass/Vol] 96 mg/dL 74-106 [facility] Neutrophils (Bld) [#/Vol] 2.9 10*3/uL 2.0-7.7 [facility] Neutrophils/100 WBC (Bld) 58.5 % 47-70 [facility] Potassium [Moles/Vol] 4.1 mmol/L 3.5-5.1 [facility] Protein [Mass/Vol] 6.6 g/dL 6.4-8.2 [facility] Sodium [Moles/Vol] 140 mmol/L 136-145 [facility] WBC (Bld) [#/Vol] 4.9 10*3/uL 4.4-11.0 [facility] Blood erythrocytes count (nu mber/volume)Ordered By: Dr. Velasco on 04-22-2022 RBC (Bld) [#/Vol] 4.44 10*6/uL 4.2-5.4 [facility] Blood hemoglobin measurement (mass/volume)Ordered By: Dr. Velasco on 04-22-2022 Hemoglobin (Bld) [Mass/Vol] 11.4 g/dL 12.0-15.0 [facility] Blood lymphocytes/100 leukoc ytesOrdered By: Dr. Velasco on 04-22-2022 Lymphocytes/100 WBC (Bld) 30.0 % 19-41 [facility] Blood monocytes/100 leukocyt esOrdered By: Dr. Velasco on 04-22-2022 Monocytes/100 WBC (Bld) 9.1 % 0-10 [facility] Blood platelet mean volumeOr dered By: Dr. Velasco on 04-22-2022 Platelet mean volume (Bld) [Entitic vol] 10.8 fL 6.2-12.0 [facility] Determination of erythrocyte mean corpuscular volume (MCV)Ordered By: Dr. Velasco on 04-22-2022 MCV (RBC) [Entitic vol] 84.5 fL 81-99 [facility] Hematocrit Auto (Bld) [Volum e fraction]Ordered By: Dr. Velasco on 04-22-2022 Hematocrit (Bld) [Volume fraction] 37.5 % 37-47 [facility] Laboratory - Chemistry and C hemistry - challengeOrdered By: Dr. Velasco on 04-22-2022 ALP [Catalytic activity/Vol] 63 U/L 45-117 [facility] ALT [Catalytic activity/Vol] 18 U/L 13-56 [facility] CO2 [Moles/Vol] 28.0 mmol/L 21.0-32.0 [facility] Globulin (S) [Mass/Vol] 3.3 g/dL 2.2-4.2 [facility] Urea nitrogen/Creatinine [Mass ratio] 14.7 mg/mg 10-20 [facility] Laboratory - Hematology and Cell countsOrdered By: Dr. Velasco on 04-22-2022 Erythrocyte distribution width (RBC) [Entitic vol] 43.3 fL 35.1-43.9 [facility] Erythrocyte distribution width (RBC) [Ratio] 14.1 % 11.6-14.6 [facility] Immature granulocytes/100 WBC (Bld) 0.400 % 0.0-0.9 [facility] Comment on above: IG% - Immature Granu locytes (promyelocytes, myelocytes and metamyelocytes) > 1% indicates that a LEFT SHIFT is Present. MCH (RBC) [Entitic mass] 25.7 pg 27.0-32.0 [facility] Nucleated RBC/100 WBC (Bld) [Ratio] 0 % 0-5 [facility] MCHC Auto (RBC) [Mass/Vol]Or dered By: Dr. Velasco on 04-22-2022 MCHC (RBC) [Mass/Vol] 30.4 g/dL 32-36 [facility] No Panel InformationOrdered By: Dr. Velasco on 04-22-2022 Estimated GFR (MDRD) Amer 69 mL/min >60 [facility] Comment on above: GFR Calc Estimated GFR (MDRD) Non-Af Amer 57 mL/min >60 [facility] Comment on above: Non- GFR Calc Platelets bldOrdered By: Dr. Velasco on 04-22-2022 Platelets (Bld) [#/Vol] 238 10*3/uL 150-450 [facility] Serum or plasma albumin barbara urement (mass/volume)Ordered By: Dr. Velasco on 04-22-2022 Albumin [Mass/Vol] 3.3 g/dL 3.2-5.0 [facility] Serum or plasma albumin/glob ulin mass ratioOrdered By: Dr. Velasco on 04-22-2022 Albumin/Globulin [Mass ratio] 1.0 {ratio} 0.9-2.4 [facility] Serum or plasma calcium barbara urement (mass/volume)Ordered By: Dr. Velasco on 04-22-2022 Calcium [Mass/Vol] 9.1 mg/dL 8.5-10.1 [facility] Serum or plasma creatinine m easurement (mass/volume)Ordered By: Dr. Velasco on 04-22-2022 Creatinine [Mass/Vol] 1.02 mg/dL 0.55-1.02 [facility] Comment on above: The validity of the calculated GFR & GFRAA in patients over 70 years has not been determined. Clinical correlation is essential. Serum or plasma urea nitroge n measurement (mass/volume)Ordered By: Dr. Velasco on 04-22-2022 Urea nitrogen [Mass/Vol] 15 mg/dL 7-18 [facility] Thin prep Papanicolaou smear with manual screeningOrdered By: Dr. Velasco on 04-22-2022 Thin prep Papanicolaou smear with manual screening 15 U/L 15-37 [facility] Thin prep Papanicolaou smear with manual screening 7 5-15 [facility] Absolute lymphocyte countOrd ered By: Dr. Lozano on 02-26-2022 Lymphocytes Auto (Unsp spec) [#/Vol] 1.61 10*3/uL 0.83-4.51 [facility] Basophil percentageOrdered B y: Dr. Lozano on 02-26-2022 Basophil percentage 2.9 mg/dL 2.5-4.9 [facility] Basophils/100 WBC (Bld) 0.9 % 0-1 [facility] Bilirubin [Mass/Vol] 0.30 mg/dL 0.20-1.00 [facility] Comment on above: For patients on eltr ombopag therapy, use of Dimension [place] TBIL is not recommended. Chloride [Moles/Vol] 107 mmol/L 98-107 [facility] Eosinophils/100 WBC (Bld) 0.9 % 0-5 [facility] Glucose [Mass/Vol] 94 mg/dL 74-106 [facility] Neutrophils (Bld) [#/Vol] 2.3 10*3/uL 2.0-7.7 [facility] Neutrophils/100 WBC (Bld) 50.8 % 47-70 [facility] Potassium [Moles/Vol] 3.4 mmol/L 3.5-5.1 [facility] Protein [Mass/Vol] 6.8 g/dL 6.4-8.2 [facility] Sodium [Moles/Vol] 140 mmol/L 136-145 [facility] WBC (Bld) [#/Vol] 4.6 10*3/uL 4.4-11.0 [facility] Blood erythrocytes count (nu mber/volume)Ordered By: Dr. Lozano on 02-26-2022 RBC (Bld) [#/Vol] 4.45 10*6/uL 4.2-5.4 [facility] Blood hemoglobin measurement (mass/volume)Ordered By: Dr. Lozano on 02-26-2022 Hemoglobin (Bld) [Mass/Vol] 11.3 g/dL 12.0-15.0 [facility] Blood lymphocytes/100 leukoc ytesOrdered By: Dr. Lozano on 02-26-2022 Lymphocytes/100 WBC (Bld) 35.2 % 19-41 [facility] Blood monocytes/100 leukocyt esOrdered By: Dr. Lozano on 02-26-2022 Monocytes/100 WBC (Bld) 11.8 % 0-10 [facility] Blood platelet mean volumeOr dered By: Dr. Lozano on 02-26-2022 Platelet mean volume (Bld) [Entitic vol] 10.8 fL 6.2-12.0 [facility] Determination of erythrocyte mean corpuscular volume (MCV)Ordered By: Dr. Lozano on 02-26-2022 MCV (RBC) [Entitic vol] 85.4 fL 81-99 [facility] Hematocrit Auto (Bld) [Volum e fraction]Ordered By: Dr. Lozano on 02-26-2022 Hematocrit (Bld) [Volume fraction] 38.0 % 37-47 [facility] Laboratory - Chemistry and C hemistry - challengeOrdered By: Dr. Lozano on 02-26-2022 ALP [Catalytic activity/Vol] 55 U/L 45-117 [facility] ALT [Catalytic activity/Vol] 20 U/L 13-56 [facility] CO2 [Moles/Vol] 26.0 mmol/L 21.0-32.0 [facility] Globulin (S) [Mass/Vol] 3.8 g/dL 2.2-4.2 [facility] Magnesium [Mass/Vol] 2.3 mg/dL 1.6-2.6 [facility] Urea nitrogen/Creatinine [Mass ratio] 16.9 mg/mg 10-20 [facility] - Hematology and Cell countsOrdered By: Dr. Lozano on 02-26-2022 Erythrocyte distribution width (RBC) [Entitic vol] 45.0 fL 35.1-43.9 [facility] Erythrocyte distribution width (RBC) [Ratio] 14.5 % 11.6-14.6 [facility] Immature granulocytes/100 WBC (Bld) 0.400 % 0.0-0.9 [facility] Comment on above: IG% - Immature Granu locytes (promyelocytes, myelocytes and metamyelocytes) > 1% indicates that a LEFT SHIFT is Present. MCH (RBC) [Entitic mass] 25.4 pg 27.0-32.0 [facility] Nucleated RBC/100 WBC (Bld) [Ratio] 0 % 0-5 [facility] MCHC Auto (RBC) [Mass/Vol]Or dered By: Dr. Lozano on 02-26-2022 MCHC (RBC) [Mass/Vol] 29.7 g/dL 32-36 [facility] No Panel InformationOrdered By: Dr. Lozano on 02-26-2022 Estimated GFR (MDRD) Amer 75 mL/min >60 [facility] Comment on above: GFR Calc Estimated GFR (MDRD) Non-Af Amer 62 mL/min >60 [facility] Comment on above: Non- GFR Calc Parathyroid Hormone (Intact) 71.9 pg/mL 18.4-80.1 [facility] Vitamin D 25-Hydroxy 15.8 ng/mL [facility] Comment on above: Vitamin D 25(OH) Sta tus Range Deficiency <20 ng/mL (50nmol/L) Insufficiency 20 - 30 ng/mL (50 - 75 nmol/L) Sufficiency 30 - 100 ng/mL (75 - 250 nmol/L) Toxicity >100 ng/mL (>250 nmol/L) Platelets bldOrdered By: Dr. Lozano on 02-26-2022 Platelets (Bld) [#/Vol] 239 10*3/uL 150-450 [facility] Serum or plasma albumin barbara urement (mass/volume)Ordered By: Dr. Lozano on 02-26-2022 Albumin [Mass/Vol] 3.0 g/dL 3.2-5.0 [facility] Serum or plasma albumin/glob ulin mass ratioOrdered By: Dr. Lozano on 02-26-2022 Albumin/Globulin [Mass ratio] 0.8 {ratio} 0.9-2.4 [facility] Serum or plasma calcium barbara urement (mass/volume)Ordered By: Dr. Lozano on 02-26-2022 Calcium [Mass/Vol] 8.8 mg/dL 8.5-10.1 [facility] Serum or plasma creatinine m easurement (mass/volume)Ordered By: Dr. Lozano on 02-26-2022 Creatinine [Mass/Vol] 0.94 mg/dL 0.55-1.02 [facility] Comment on above: The validity of the calculated GFR & GFRAA in patients over 70 years has not been determined. Clinical correlation is essential. Serum or plasma urea nitroge n measurement (mass/volume)Ordered By: Dr. Lozano on 02-26-2022 Urea nitrogen [Mass/Vol] 16 mg/dL 7-18 [facility] Serum or plasma uric acid me asurement (mass/volume)Ordered By: Dr. Lozano on 02-26-2022 Urate [Mass/Vol] 4.8 mg/dL 2.6-6.0 [facility] Comment on above: The drugs N-Acetylcy steine and Metamizole may falsely depress this assay. Thin prep Papanicolaou smear with manual screeningOrdered By: Dr. Lozano on 02-26-2022 Thin prep Papanicolaou smear with manual screening 17 U/L 15-37 [facility] Thin prep Papanicolaou smear with manual screening 7 5-15 [facility] Absolute lymphocyte counton 01-01-2022 Lymphocytes Auto (Unsp spec) [#/Vol] 0.77 10*3/uL 0.83-4.51 [facility] Work Phone: Basophil percentageon 2021 Basophils/100 WBC (Bld) 0.3 % 0-1 [facility] Work Phone: Bilirubin [Mass/Vol] 0.40 mg/dL 0.20-1.00 [facility] Work Phone: Comment on above: For patients on eltr ombopag therapy, use of Dimension [place] TBIL is not recommended. Chloride [Moles/Vol] 105 mmol/L 98-107 [facility] Work Phone: Eosinophils/100 WBC (Bld) 0.6 % 0-5 [facility] Work Phone: Glucose [Mass/Vol] 101 mg/dL 74-106 [facility] Work Phone: Comment on above: Fasting Glucose resu lt from 100 to 125 mg/dL suggests IMPAIRED HOMEOSTASIS per A.D.A. criteria. Neutrophils (Bld) [#/Vol] 5.4 10*3/uL 2.0-7.7 [facility] Work Phone: Neutrophils/100 WBC (Bld) 80.6 % 47-70 [facility] Work Phone: Potassium [Moles/Vol] 3.8 mmol/L 3.5-5.1 [facility] Work Phone: Protein [Mass/Vol] 7.1 g/dL 6.4-8.2 [facility] Work Phone: Sodium [Moles/Vol] 139 mmol/L 136-145 [facility] Work Phone: WBC (Bld) [#/Vol] 6.7 10*3/uL 4.4-11.0 [facility] Work Phone: [phone] Blood erythrocytes count (nu mber/volume)on 01-01-2022 RBC (Bld) [#/Vol] 4.53 10*6/uL 4.2-5.4 [facility] Work Phone: [phone] RBC (Bld) [#/Vol] 4.60 10*6/uL 3.77-5.28 [facility] Work Phone: [phone] Blood hemoglobin measurement (mass/volume)on 01-01-2022 Hemoglobin (Bld) [Mass/Vol] 11.1 g/dL 12.0-15.0 [facility] Work Phone: Blood lymphocytes/100 leukoc yteson 01-01-2022 Lymphocytes/100 WBC (Bld) 11.5 % 19-41 [facility] Work Phone: Blood monocytes/100 leukocyt eson 01-01-2022 Monocytes/100 WBC (Bld) 6.6 % 0-10 [facility] Work Phone: Blood platelet mean volumeon 01-01-2022 Platelet mean volume (Bld) [Entitic vol] 11.2 fL 6.2-12.0 [facility] Work Phone: [phone] Determination of erythrocyte mean corpuscular volume (MCV)on 01-01-2022 MCV (RBC) [Entitic vol] 83.2 fL 81-99 [facility] Work Phone: Erythrocyte asuddnf-3-metspt ate dehydrogenase (enzymatic activity/mass)on 01-01-2022 G6PD (RBC) [Catalytic activity/Mass] 327 127-427 [facility] Work Phone: Comment on above: Result Units: U/10E1 2 RBCWhen decreased, G-6-PD, Quant. values are associated withacute hemolytic anemia when deficient individuals areexposed to oxidative stress, such as with certainmedications (e.g., primaquine), infection, or ingestion offava beans. Caution: In patients with acute hemolysis(e.g., abnormally low RBC values), testing for G-6-PD maybe falsely normal because older erythrocytes with a higherenzyme deficiency have been hemolyzed. Young erythrocytesand reticulocytes have normal or near-normal enzymeactivity. Normal values of G-6-PD may be measured forseveral weeks following a hemolytic event.Performed at: - [facility] [id number] Director: Wilfredo Apodaca PhD, Phone: [phone] at: [facility] [id number] Director: Lynn Terrell MD, Phone: [phone] Hematocrit Auto (Bld) [Volum e fraction]on 01-01-2022 Hematocrit (Bld) [Volume fraction] 37.7 % 37-47 [facility] Work Phone: [phone] Laboratory - Chemistry and C hemistry - challengeon 01-01-2022 ALP [Catalytic activity/Vol] 74 U/L 45-117 [facility] Work Phone: [phone] ALT [Catalytic activity/Vol] 21 U/L 13-56 [facility] Work Phone: [phone] CO2 [Moles/Vol] 25.0 mmol/L 21.0-32.0 [facility] Work Phone: [phone] Globulin (S) [Mass/Vol] 4.0 g/dL 2.2-4.2 [facility] Work Phone: [phone] Urea nitrogen/Creatinine [Mass ratio] 15.2 mg/mg 10-20 [facility] Work Phone: [phone] Laboratory - Hematology and Cell countson 01-01-2022 Erythrocyte distribution width (RBC) [Entitic vol] 48.2 fL 35.1-43.9 [facility] Work Phone: [phone] Erythrocyte distribution width (RBC) [Ratio] 15.9 % 11.6-14.6 [facility] Work Phone: [phone] Immature granulocytes/100 WBC (Bld) 0.400 % 0.0-0.9 [facility] Work Phone: Comment on above: IG% - Immature Granu locytes (promyelocytes, myelocytes and metamyelocytes) > 1% indicates that a LEFT SHIFT is Present. MCH (RBC) [Entitic mass] 24.5 pg 27.0-32.0 [facility] Work Phone: Nucleated RBC/100 WBC (Bld) [Ratio] 0 % 0-5 [facility] Work Phone: MCHC Auto (RBC) [Mass/Vol]on 01-01-2022 MCHC (RBC) [Mass/Vol] 29.4 g/dL 32-36 [facility] Work Phone: No Panel Informationon 01-01 Anti-Nuclear Antibody Screen Negative Negative [facility] Work Phone: Comment on above: Performed at: [place] [id number] Director: Wilfredo Apodaca PhD, Phone: [phone] Estimated GFR (MDRD) Amer 67 mL/min >60 [facility] Work Phone: Comment on above: GFR Calc Estimated GFR (MDRD) Non-Af Amer 55 mL/min >60 [facility] Work Phone: Comment on above: Non- GFR Calc Hepatitis B Surface Antigen Non-Reactive Nonreactive [facility] Work Phone: Hepatitis C Antibody Non-Reactive Nonreactive [facility] Work Phone: Comment on above: Non Reactive: < 0.8 Equivocal: >/= 0.8 to < 1.0 Reactive: >/= 1.0The CDC recommends that a reactive/equivocal HCV antibody result be followed up by the HCV Nucleic Acid Amplificationtest (634112) Platelets bldon 01-01-2022 Platelets (Bld) [#/Vol] 202 10*3/uL 150-450 [facility] Work Phone: Qualitative QuantiFERON-TB g old in tube teston 01-01-2022 M. tuberculosis tuberculin stim IFN-g Ql (Bld) 0.01 IU/mL . [facility] Work Phone: Serum hepatitis B virus surf damaris antibody IgG detectionon 01-01-2022 HBV surface IgG Ql (S) Non-Reactive [facility] Work Phone: Comment on above: Non Reactive: Incons istent with immunity less than <10 mIU/mL Reactive: Consistent with immunity greater than or equal to 10 mIU/mL Serum or plasma albumin barbara urement (mass/volume)on 01-01-2022 Albumin [Mass/Vol] 3.1 g/dL 3.2-5.0 [facility] Work Phone: Serum or plasma albumin/glob ulin mass ratioon 01-01-2022 Albumin/Globulin [Mass ratio] 0.8 {ratio} 0.9-2.4 [facility] Work Phone: Serum or plasma calcium barbara urement (mass/volume)on 01-01-2022 Calcium [Mass/Vol] 9.1 mg/dL 8.5-10.1 [facility] Work Phone: Serum or plasma creatinine m easurement (mass/volume)on 01-01-2022 Creatinine [Mass/Vol] 1.05 mg/dL 0.55-1.02 [facility] Work Phone: Comment on above: The validity of the calculated GFR & GFRAA in patients over 70 years has not been determined. Clinical correlation is essential. Serum or plasma urea nitroge n measurement (mass/volume)on 01-01-2022 Urea nitrogen [Mass/Vol] 16 mg/dL 7-18 [facility] Work Phone: Thin prep Papanicolaou smear with manual screeningon 01-01-2022 Thin prep Papanicolaou smear with manual screening 17 U/L 15-37 [facility] Work Phone: Thin prep Papanicolaou smear with manual screening 9 5-15 [facility] Work Phone: Thin prep Papanicolaou smear with manual screening Comment . [facility] Work Phone: Comment on above: QuantiFERON-TB Gold Plus is a qualitative indirect test forM tuberculosis infection (including disease) and isintended for use in conjunction with risk assessment,radiography, and other medical and diagnostic evaluations.The QuantiFERON-TB Gold Plus result is determined bysubtracting the Nil value from either TB antigen (Ag)value. The Mitogen tube serves as a control for the test. Thin prep Papanicolaou smear with manual screening 0 IU/mL . [facility] Work Phone: [phone] Thin prep Papanicolaou smear with manual screening 7.96 IU/mL . [facility] Work Phone: [phone] Thin prep Papanicolaou smear with manual screening Negative Negative [facility] Work Phone: [phone] Comment on above: No response to M tub erculosis antigens detected.Infection with M tuberculosis is unlikely, but high riskindividuals should be considered for additional testing(ATS/IDSA/CDC Clinical Practice Guidelines, 2017). Thereference range is an Antigen minus Nil result of <0.35IU/mL.The specimen received for QuantiFERON testing was incubatedby the ordering institution. Specific procedures outlinedin our Directory of Services and in the package insert forthe QuantiFERON Gold (In Tube) test must be followed toenable for proper stimulation of cells for the productionof interferon gamma. Chemiluminescence immunoassaymethodology Absolute lymphocyte counton 10-19-2021 Lymphocytes Auto (Unsp spec) [#/Vol] 1.05 10*3/uL 0.83-4.51 [facility] Work Phone: Basophil percentageon 2021 Basophils/100 WBC (Bld) 0.6 % 0-1 [facility] Work Phone: Eosinophils/100 WBC (Bld) 1.0 % 0-5 [facility] Work Phone: Neutrophils (Bld) [#/Vol] 3.5 10*3/uL 2.0-7.7 [facility] Work Phone: Neutrophils/100 WBC (Bld) 69.3 % 47-70 [facility] Work Phone: WBC (Bld) [#/Vol] 5.1 10*3/uL 4.4-11.0 [facility] Work Phone: Blood erythrocytes count (nu mber/volume)on 10-19-2021 RBC (Bld) [#/Vol] 4.47 10*6/uL 4.2-5.4 [facility] Work Phone: Blood hemoglobin measurement (mass/volume)on 10-19-2021 Hemoglobin (Bld) [Mass/Vol] 10.9 g/dL 12.0-15.0 [facility] Work Phone: Blood lymphocytes/100 leukoc yteson 10-19-2021 Lymphocytes/100 WBC (Bld) 20.8 % 19-41 [facility] Work Phone: Blood monocytes/100 leukocyt eson 10-19-2021 Monocytes/100 WBC (Bld) 8.1 % 0-10 [facility] Work Phone: Blood platelet mean volumeon 10-19-2021 Platelet mean volume (Bld) [Entitic vol] 11.0 fL 6.2-12.0 [facility] Work Phone: Determination of erythrocyte mean corpuscular volume (MCV)on 10-19-2021 MCV (RBC) [Entitic vol] 84.3 fL 81-99 [facility] Work Phone: Erythrocyte sedimentation ra rita 10-19-2021 ESR (Bld) [Velocity] 34 mm/h 0-30 [facility] Work Phone: Hematocrit Auto (Bld) [Volum e fraction]on 10-19-2021 Hematocrit (Bld) [Volume fraction] 37.7 % 37-47 [facility] Work Phone: Laboratory - Hematology and Cell countson 10-19-2021 Erythrocyte distribution width (RBC) [Entitic vol] 44.4 fL 35.1-43.9 [facility] Work Phone: Erythrocyte distribution width (RBC) [Ratio] 14.6 % 11.6-14.6 [facility] Work Phone: Immature granulocytes/100 WBC (Bld) 0.200 % 0.0-0.9 [facility] Work Phone: Comment on above: IG% - Immature Granu locytes (promyelocytes, myelocytes and metamyelocytes) > 1% indicates that a LEFT SHIFT is Present. MCH (RBC) [Entitic mass] 24.4 pg 27.0-32.0 [facility] Work Phone: Nucleated RBC/100 WBC (Bld) [Ratio] 0 % 0-5 [facility] Work Phone: MCHC Auto (RBC) [Mass/Vol]on 10-19-2021 MCHC (RBC) [Mass/Vol] 28.9 g/dL 32-36 [facility] Work Phone: Platelets bldon 10-19-2021 Platelets (Bld) [#/Vol] 217 10*3/uL 150-450 [facility] Work Phone: Serum cyclic citrullinated p eptide IgG antibody assay (units/volume)on 10-19-2021 Cyclic citrullinated peptide IgG Qn 5 units 0-19 [facility] Work Phone: Comment on above: Negative <20 Weak po sitive 20 - 39 Moderate positive 40 - 59 Strong positive >59Performed at: [facility] [id number] Director: Lynn eTrrell MD, Phone: [phone] Serum or plasma C reactive p rotein measurement (mass/volume)on 10-19-2021 CRP [Mass/Vol] 15.50 mg/L 0.0-3.0 [facility] Work Phone: Comment on above: C-Reactive Protein ( CRP) provides useful information for thediagnosis, therapy and monitoring of inflammatory processesand associated diseases. For the evaluation of Relative Riskfor Cardiovascular Disease, a High Sensitivity CRP (HSCRP)should be ordered. Serum or plasma uric acid me asurement (mass/volume)on 10-19-2021 Urate [Mass/Vol] 5.3 mg/dL 2.6-6.0 [facility] Work Phone: Comment on above: The drugs N-Acetylcy steine and Metamizole may falsely depress this assay. Serum rheumatoid factor dete ctionon 10-19-2021 Rheumatoid factor Ql (S) > 600.0 IU/mL <15 [facility] Work Phone: Bronchoalveolar lavage cultu re with Gram stainon 07-06-2021 Respiratory Culture Presumptive C albicans [facility] Work Phone: [phone] Gram stain for investigation of transfusion reactionon 07-06-2021 Microscopic observation Gram stain Nom (Unsp spec) [facility] Work Phone: [phone] Gram stain for investigation of transfusion reactionon 07-05-2021 Microscopic observation Gram stain Nom (Unsp spec) [facility] Work Phone: [phone] Bronchoalveolar lavage cultu re with Gram stainon 07-04-2021 Respiratory Culture Streptococcus pneumoniae [facility] Work Phone: [phone] Gram stain for investigation of transfusion reactionon 07-04-2021 Microscopic observation Gram stain Nom (Unsp spec) [facility] Work Phone: [phone] Absolute lymphocyte counton 05-29-2021 Lymphocytes Auto (Unsp spec) [#/Vol] 1.26 10*3/uL 0.83-4.51 [facility] Work Phone: [phone] Basophil percentageon 2021 Basophils/100 WBC (Bld) 0.8 % 0-1 [facility] Work Phone: [phone] Bilirubin [Mass/Vol] 0.40 mg/dL 0.20-1.00 [facility] Work Phone: [phone] Comment on above: For patients on eltr ombopag therapy, use of Dimension [place] TBIL is not recommended. Chloride [Moles/Vol] 107 mmol/L 98-107 [facility] Work Phone: Eosinophils/100 WBC (Bld) 3.1 % 0-5 [facility] Work Phone: [phone] Glucose [Mass/Vol] 97 mg/dL 74-106 [facility] Work Phone: [phone] Neutrophils (Bld) [#/Vol] 4.1 10*3/uL 2.0-7.7 [facility] Work Phone: Neutrophils/100 WBC (Bld) 63.5 % 47-70 [facility] Work Phone: Potassium [Moles/Vol] 4.3 mmol/L 3.5-5.1 [facility] Work Phone: Protein [Mass/Vol] 7.2 g/dL 6.4-8.2 [facility] Work Phone: Sodium [Moles/Vol] 138 mmol/L 136-145 [facility] Work Phone: WBC (Bld) [#/Vol] 6.5 10*3/uL 4.4-11.0 [facility] Work Phone: Blood erythrocytes count (nu mber/volume)on 05-29-2021 RBC (Bld) [#/Vol] 4.57 10*6/uL 4.2-5.4 [facility]: Blood hemoglobin measurement (mass/volume)on 05-29-2021 Hemoglobin (Bld) [Mass/Vol] 11.9 g/dL 12.0-15.0 [facility] Work Phone: Blood lymphocytes/100 leukoc yteson 05-29-2021 Lymphocytes/100 WBC (Bld) 19.4 % 19-41 [facility] Work Phone: Blood monocytes/100 leukocyt eson 05-29-2021 Monocytes/100 WBC (Bld) 12.9 % 0-10 [facility] Work Phone: Blood platelet mean volumeon 05-29-2021 Platelet mean volume (Bld) [Entitic vol] 11.1 fL 6.2-12.0 [facility] Work Phone: Determination of erythrocyte mean corpuscular volume (MCV)on 05-29-2021 MCV (RBC) [Entitic vol] 84.7 fL 81-99 [facility] Work Phone: Hematocrit Auto (Bld) [Volum e fraction]on 05-29-2021 Hematocrit (Bld) [Volume fraction] 38.7 % 37-47 [facility] Work Phone: [phone] Laboratory - Chemistry and C hemistry - challengeon 05-29-2021 ALP [Catalytic activity/Vol] 83 U/L 45-117 [facility] Work Phone: ALT [Catalytic activity/Vol] 20 U/L 13-56 [facility] Work Phone: CO2 [Moles/Vol] 27.0 mmol/L 21.0-32.0 [facility] Work Phone: [phone] Globulin (S) [Mass/Vol] 4.1 g/dL 2.2-4.2 [facility] Work Phone: [phone] Urea nitrogen/Creatinine [Mass ratio] 19.4 mg/mg 10-20 [facility] Work Phone: Laboratory - Hematology and Cell countson 05-29-2021 Erythrocyte distribution width (RBC) [Entitic vol] 44.5 fL 35.1-43.9 [facility] Work Phone: [phone] Erythrocyte distribution width (RBC) [Ratio] 14.5 % 11.6-14.6 [facility] Work Phone: [phone] Immature granulocytes/100 WBC (Bld) 0.300 % 0.0-0.9 [facility] Work Phone: [phone] Comment on above: IG% - Immature Granu locytes (promyelocytes, myelocytes and metamyelocytes) > 1% indicates that a LEFT SHIFT is Present. MCH (RBC) [Entitic mass] 26.0 pg 27.0-32.0 [facility] Work Phone: [phone] Nucleated RBC/100 WBC (Bld) [Ratio] 0 % 0-5 [facility] Work Phone: MCHC Auto (RBC) [Mass/Vol]on 05-29-2021 MCHC (RBC) [Mass/Vol] 30.7 g/dL 32-36 [facility]: [phone] No Panel Informationon 05-29 Estimated GFR (MDRD) Amer 68 mL/min >60 [facility] Work Phone: Comment on above: GFR Calc Estimated GFR (MDRD) Non-Af Amer 56 mL/min >60 [facility] Work Phone: Comment on above: Non- GFR Calc Platelets bldon 05-29-2021 Platelets (Bld) [#/Vol] 268 10*3/uL 150-450 [facility] Work Phone: Serum or plasma albumin barbara urement (mass/volume)on 05-29-2021 Albumin [Mass/Vol] 3.1 g/dL 3.2-5.0 [facility] Work Phone: Serum or plasma albumin/glob ulin mass ratioon 05-29-2021 Albumin/Globulin [Mass ratio] 0.8 {ratio} 0.9-2.4 [facility] Work Phone: Serum or plasma calcium barbara urement (mass/volume)on 05-29-2021 Calcium [Mass/Vol] 9.1 mg/dL 8.5-10.1 [facility] Work Phone: Serum or plasma creatinine m easurement (mass/volume)on 05-29-2021 Creatinine [Mass/Vol] 1.03 mg/dL 0.55-1.02 [facility] Work Phone: Comment on above: The validity of the calculated GFR & GFRAA in patients over 70 years has not been determined. Clinical correlation is essential. Serum or plasma urea nitroge n measurement (mass/volume)on 05-29-2021 Urea nitrogen [Mass/Vol] 20 mg/dL 7-18 [facility] Work Phone: Serum or plasma uric acid me asurement (mass/volume)on 05-29-2021 Urate [Mass/Vol] 5.6 mg/dL 2.6-6.0 [facility] Work Phone: Comment on above: The drugs N-Acetylcy steine and Metamizole may falsely depress this assay. Thin prep Papanicolaou smear with manual screeningon 05-29-2021 Thin prep Papanicolaou smear with manual screening 18 U/L 15-37 [facility] Work Phone: Thin prep Papanicolaou smear with manual screening 4 5-15 [facility] Work Phone: XR Toes - left 3 Viewson IMPRESSION: No Acute Fracture. Mid Level Developer: [email or web address] Transcribe Date/Time: May 18 2021 4:25P Dictated by : ZA YAN MD This examination was interpreted and the report reviewed and electronically signed by: ZA YAN MD on May 18 2021 4:26PM [facility] DIVISION OF RADIOLOGY * * *Final [...] bony destructive changes. DIVISION OF RADIOLOGY Provider, [facility] - 05/18/2021 * * *Final Report* * [...] destructive changes. IMPRESSION IMPRESSION: No Acute Fracture. Mid Level Developer: LISA Transcribe Date/Time: May 18 2021 4:25P Dictated by : ZA YAN MD This examination was interpreted and the report reviewed and electronically signed by: ZA YAN MD on May 18 2021 4:26PM EST [facility] Radiology Study observation (narrative) [facility] XR Toes - left 3 ViewsOrdere d By: [facility] Provider on 05-18-2021 [facility] Absolute lymphocyte counton 04-02-2021 Lymphocytes Auto (Unsp spec) [#/Vol] 0.88 10*3/uL 0.83-4.51 [facility] Work Phone: Basophil percentageon 2020 Bilirubin [Mass/Vol] 0.60 mg/dL 0.20-1.00 [facility] Work Phone: Comment on above: For patients on eltr ombopag therapy, use of Dimension [place] TBIL is not recommended. Chloride [Moles/Vol] 109 mmol/L 98-107 [facility] Work Phone: [phone] Eosinophils/100 WBC (Bld) 2.7 % 0-5 [facility] Work Phone: [phone] Glucose [Mass/Vol] 109 mg/dL 74-106 [facility] Work Phone: Comment on above: Fasting Glucose resu lt from 100 to 125 mg/dL suggests IMPAIRED HOMEOSTASIS per A.D.A. criteria.Please note revised GLUCOSE reference range effective 2017. Neutrophils (Bld) [#/Vol] 2.0 10*3/uL 2.0-7.7 [facility] Work Phone: [phone] Potassium [Moles/Vol] 3.6 mmol/L 3.5-5.1 [facility] Work Phone: Protein [Mass/Vol] 6.9 g/dL 6.4-8.2 [facility] Work Phone: Sodium [Moles/Vol] 142 mmol/L 136-145 [facility] Work Phone: WBC (Bld) [#/Vol] 3.3 10*3/uL 4.4-11.0 [facility] Work Phone: Blood erythrocytes count (nu mber/volume)on 04-02-2021 RBC (Bld) [#/Vol] 4.41 10*6/uL 4.2-5.4 [facility] Work Phone: Blood hemoglobin measurement (mass/volume)on 04-02-2021 Hemoglobin (Bld) [Mass/Vol] 11.1 g/dL 12.0-15.0 [facility] Work Phone: Blood lymphocytes/100 leukoc yteson 04-02-2021 Lymphocytes/100 WBC (Bld) 26.6 % 19-41 [facility] Work Phone: Blood monocytes/100 leukocyt eson 04-02-2021 Monocytes/100 WBC (Bld) 10.0 % 0-10 [facility] Work Phone: Blood platelet mean volumeon 04-02-2021 Platelet mean volume (Bld) [Entitic vol] 11.5 fL 6.2-12.0 [facility] Work Phone: Determination of erythrocyte mean corpuscular volume (MCV)on 04-02-2021 MCV (RBC) [Entitic vol] 83.4 fL 81-99 [facility] Work Phone: Erythrocyte sedimentation ra rita 04-02-2021 ESR (Bld) [Velocity] 24 mm/h 0-30 [facility] Work Phone: Hematocrit Auto (Bld) [Volum e fraction]on 04-02-2021 Hematocrit (Bld) [Volume fraction] 36.8 % 37-47 [facility] Work Phone: [phone] Laboratory - Chemistry and C hemistry - challengeon 04-02-2021 ALP [Catalytic activity/Vol] 90 U/L 45-117 [facility] Work Phone: ALT [Catalytic activity/Vol] 19 U/L 13-56 [facility] Work Phone: CO2 [Moles/Vol] 28.0 mmol/L 21.0-32.0 [facility] Work Phone: Globulin (S) [Mass/Vol] 4.0 g/dL 2.2-4.2 [facility] Work Phone: Urea nitrogen/Creatinine [Mass ratio] 16.7 mg/mg 10-20 [facility] Work Phone: Laboratory - Hematology and Cell countson 04-02-2021 Basophils/100 WBC (Unsp spec) 1.2 % 0-1 [facility] Work Phone: Erythrocyte distribution width (RBC) [Entitic vol] 43.0 fL 35.1-43.9 [facility] Work Phone: Erythrocyte distribution width (RBC) [Ratio] 14.1 % 11.6-14.6 [facility] Work Phone: Immature granulocytes/100 WBC (Bld) 0.300 % 0.0-0.9 [facility] Work Phone: Comment on above: IG% - Immature Granu locytes (promyelocytes, myelocytes and metamyelocytes) > 1% indicates that a LEFT SHIFT is Present. MCH (RBC) [Entitic mass] 25.2 pg 27.0-32.0 [facility] Work Phone: Neutrophils/100 WBC (Bld) 59.2 % 47-70 [facility] Work Phone: Nucleated RBC/100 WBC (Bld) [Ratio] 0 % 0-5 [facility] Work Phone: MCHC Auto (RBC) [Mass/Vol]on 04-02-2021 MCHC (RBC) [Mass/Vol] 30.2 g/dL 32-[facility] Work [facility]: No Panel Informationon 04-02 Estimated GFR (MDRD) Amer 74 mL/min >60 [facility] Work Phone: Comment on above: GFR Calc Estimated GFR (MDRD) Non-Af Amer 61 mL/min >60 [facility] Work Phone: Comment on above: Non- GFR Calc Parathyroid Hormone (Intact) 88.5 pg/mL 18.4-80.1 [facility] Work Phone: Platelets bldon 04-02-2021 Platelets (Bld) [#/Vol] 217 10*3/uL 150-450 [facility] Work Phone: Serum or plasma C reactive p rotein measurement (mass/volume)on 04-02-2021 CRP [Mass/Vol] 8.60 mg/L 0.0-3.0 [facility] Work Phone: Comment on above: C-Reactive Protein ( CRP) provides useful information for thediagnosis, therapy and monitoring of inflammatory processesand associated diseases. For the evaluation of Relative Riskfor Cardiovascular Disease, a High Sensitivity CRP (HSCRP)should be ordered. Serum or plasma albumin barbara urement (mass/volume)on 04-02-2021 Albumin [Mass/Vol] 2.9 g/dL 3.2-5.0 [facility] Work Phone: Serum or plasma albumin/glob ulin mass ratioon 04-02-2021 Albumin/Globulin [Mass ratio] 0.7 {ratio} 0.9-2.4 [facility] Work Phone: Serum or plasma calcium barbara urement (mass/volume)on 04-02-2021 Calcium [Mass/Vol] 9.1 mg/dL 8.5-10.1 [facility] Work Phone: Serum or plasma creatinine m easurement (mass/volume)on 04-02-2021 Creatinine [Mass/Vol] 0.96 mg/dL 0.55-1.02 [facility] Work Phone: Comment on above: The validity of the calculated GFR & GFRAA in patients over 70 years has not been determined. Clinical correlation is essential. Serum or plasma urea nitroge n measurement (mass/volume)on 04-02-2021 Urea nitrogen [Mass/Vol] 16 mg/dL 7-18 [facility] Work Phone: Serum or plasma uric acid me asurement (mass/volume)on 04-02-2021 Urate [Mass/Vol] 5.4 mg/dL 2.6-6.0 [facility] Work Phone: Comment on above: The drugs N-Acetylcy steine and Metamizole may falsely depress this assay. Thin prep Papanicolaou smear with manual screeningon 04-02-2021 Thin prep Papanicolaou smear with manual screening 21 U/L 15-37 [facility] Work Phone: Thin prep Papanicolaou smear with manual screening 5 5-15 [facility] Work Phone: XR Chest PA and Lateralon IMPRESSION: No acute radiographic abnormality. Mid Level Developer: LISA Transcribe Date/Time: Dec 22 2020 11:25A Dictated by : VASQUEZ BESS MD This examination was interpreted and the report reviewed and electronically signed by: VASQUEZ BESS MD on Dec 22 2020 11:27AM [facility] OF RADIOLOGY * * *Final [...] spine IMPRESSION IMPRESSION: No acute radiographic abnormality. 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 11-15-2016 Left ventricular Ejection fraction 55 % Invalid Interpretation Code [facility] Work Phone: Office Visiton 10-16-2016 Dietary management education, guidance, and counseling (procedure) yes Invalid Interpretation Code [employer] Work Phone: [phone] Documentation of current medications (procedure) Done Invalid Interpretation Code [facility] Work Phone: [phone] Fall risk assessment No Invalid Interpretation Code [facility] Work Phone: [phone] Protein mass conc Done [facility] Work Phone: [phone] Replaced Document: Tam Love CG Observationson 10-16-2016 EKG QRS axis 37 deg [employer] Work Phone: [phone] electrocardiogram interpretation Marked sinus Bradycardia BORDERLINE RHYTHM Invalid Interpretation Code [facility] Work Phone: [phone] GE use only - for Link[employer] import when terms are not otherwise specified 419 ms Invalid Interpretation Code [facility] Work Phone: Interpretation Marked sinus Bradyca rdia BORDERLINE RHYTHM [employer] Work Phone: P [place] 46 deg [employer] Work Phone: P wave axis, electrocardiogram 46 deg Invalid Interpretation Code [employer] Work Phone: [place] Interval 146 ms [employer] Work Phone: [place] interval, electrocardiogram 146 ms Invalid Interpretation Code [employer] Work Phone: Pulse (Heart Rate) 48 /min Invalid Interpretation Code [employer] Work Phone: QRS axis, electrocardiogram 37 deg Invalid Interpretation Code [employer] Work Phone: QRS Duration 90 ms [employer] Work Phone: QRS duration, electrocardiogram 90 ms Invalid Interpretation Code [employer] Work Phone: QT Interval new path ms [employer] Work Phone: QT interval, electrocardiogram new path ms Invalid Interpretation Code [employer] Work Phone: QTc Olivares 419 ms [employer] Work Phone: [phone] T Aspen 57 deg [employer] Work Phone: [phone] T wave axis, electrocardiogram 57 deg Invalid Interpretation Code [employer] Work Phone: [phone] Clinical Lists Update: Prelo displayer merchandise 10-10-2016 Left ventricular Ejection fraction 65 % Invalid Interpretation Code [employer] Work Phone: [phone] Lab Report: [place] Lambda Lig ht Chainson 01-24-2016 FR KAPPA LT CHN 2.72 mg/dL High Units converted. See lab report for original value. [employer] Work Phone: [phone] free [place]/Lambda ratio 1.23 Invalid Interpretation Code 0.26-1.65 [employer] Phone: [phone] kappa free light chains 2.72 mg/dL High Units converted. See lab report for original value. [employer] Work Phone: [phone] KAPPA/LAMBDA % 1.23 0.26-1.65 [employer] Work Phone: [phone] FR LAMBDA LT CH 2.215 mg/dL Units converted. See lab report for original value. [employer] Work Phone: [phone] free Lambda light chain 2.215 mg/dL Invalid Interpretation Code Units converted. See lab report for original value. [employer] Work Phone: [phone] Lab Report: Protein Electrop h, Son 01-24-2016 Globulin . Invalid Interpretation Code [employer] Work Phone: [phone] lab comments Comment Invalid Interpretation Code . [employer] Work Phone: [phone] M-SPIKE . [employer] Work Phone: [phone] NOTE: Comment . [employer] Work Phone: [phone] Protein mass conc Comment . [employer] Work Phone: [phone] serum protein electrophoresis, interpretation/comment Comment Invalid Interpretation Code . [employer] Work Phone: [phone] Albumin 3.3 g/dL Invalid Interpretation Code 2.9-4.4 [employer] Work Phone: [phone] Albumin/Globulin Ratio 1.0 (?) Invalid Interpretation Code 0.7-1.7 [employer] Work Phone: [phone] ALPHA-1 GLOBUL 0.2 g/dL 0.0-0.4 [employer] Work Phone: [phone] ALPHA-2 GLOBUL 0.7 g/dL 0.4-1.0 [employer] Work Phone: [phone] BETA GLOBULIN 1.2 g/dL 0.7-1.3 [employer] Work Phone: [phone] GAMMA GLOBULIN 1.0 g/dL 0.4-1.8 [employer] Work Phone: [phone] Globulin 3.2 g/dL Invalid Interpretation Code 2.2-3.9 [employer] Work Phone: [phone] Globulin 1.0 g/dL Invalid Interpretation Code 0.4-1.8 [employer] Work Phone: [phone] Globulin 1.2 g/dL Invalid Interpretation Code 0.7-1.3 [employer] Work Phone: [phone] Globulin 0.7 g/dL Invalid Interpretation Code 0.4-1.0 [facility] Work Phone: [phone] Globulin 0.2 g/dL Invalid Interpretation Code 0.0-0.4 [facility] Work Phone: [phone] Globulin mass conc (S) 3.2 g/dL 2.2-3.9 [facility] Work Phone: [phone] Protein 6.5 g/dL Invalid Interpretation Code 6.0-8.5 [facility] Work Phone: [phone] Office Visit: 6 mo f/u (DEEPIKA/ neutropenia) PHQ9 Completeon 01-22-2016 Adolescent depression screening assessment Adolescent depression screening assessment Invalid Interpretation Code [facility] Work Phone: [phone] Adult depression screening assessment Adult depression screening assessment Invalid Interpretation Code [facility] Work Phone: [phone] Documentation of current medications (procedure) Done Invalid Interpretation Code [facility] Work Phone: [phone] PHQ-9 quick depression assessment panel [Reported.PHQ] Adult depression screening assessment [facility] Work Phone: [phone] Protein mass conc Done [facility] Work Phone: [phone] Tobacco smoking status NHIS Former smoker [facility] Work Phone: [phone] Tobacco use CPHS Former smoker Invalid Interpretation Code [facility] Work Phone: [phone] Lab Report: CBC W/Diff, Auto - EPLAB Onlyon 01-18-2016 Basophils/100 leukocytes 1.7 % High 0-1 [facility] Work Phone: [phone] Basophils/100 WBC (Bld) 1.7 % High 0-1 [facility] Work Phone: [phone] Eosinophils/100 leukocytes 2.0 % Invalid Interpretation Code 0-5 [facility] Work Phone: [phone] Eosinophils/100 WBC (Bld) 2.0 % 0-5 [facility] Work Phone: [phone] Erythrocytes (RBC) 4.39 10*6/uL Invalid Interpretation Code 4.2-5.4 [facility] Work Phone: [phone] Hematocrit (HCT) 39.7 % Invalid Interpretation Code 37-47 [facility] Work Phone: [phone] Hematocrit Volume Fraction (Bld) 39.7 % 37-47 [facility] Work Phone: Hemoglobin (HGB) 12.7 g/dL Invalid Interpretation Code 12.0-15.0 [facility] Work Phone: Lymphocytes/100 leukocytes 32.1 % Invalid Interpretation Code 19-41 [facility] Work Phone: Lymphocytes/100 WBC (Bld) 32.1 % 19-41 [facility] Work Phone: MCH 29.0 pg Invalid Interpretation Code 27.0-32.0 [facility] Work Phone: MCH Entitic mass (RBC) 29.0 pg 27.0-32.0 [facility] Work Phone: MCHC 32.0 g/dL Invalid Interpretation Code 32-36 [facility] Work Phone: MCHC mass conc (RBC) 32.0 g/dL 32-[address] [facility] Work Phone: MCV 90.4 fL Invalid Interpretation Code 81-99 [facility] Work Phone: MCV Entitic volume (RBC) 90.4 fL 81-99 [facility] Work Phone: Monocytes/100 leukocytes 10.2 % High 0-10 [facility] Work Phone: Monocytes/100 WBC (Bld) 10.2 % High 0-10 [facility] Work Phone: Neutrophils/100 leukocytes 54.0 % Invalid Interpretation Code 47-70 [facility] Work Phone: Neutrophils/100 WBC (Bld) 54.0 % 47-70 [facility] Work Phone: Platelets 150 10*3/mm3 Invalid Interpretation Code 150-450 [facility] Work Phone: Platelets #/vol (Bld) 150 10*3/mm3 150-450 [facility] Work Phone: [phone] RBC #/vol (Bld) 4.39 10*6/uL 4.2-5.4 [facility] Work Phone: [phone] WBC #/vol (Bld) 3.4 10*3/uL Low 4.4-11.0 [facility] Work Phone: [phone] WBC (Leukocytes) 3.4 10*3/uL Low 4.4-11.0 [employer] Work Phone: [phone] Erythrocyte distribution width Ratio (RBC) 12.3 % 11.6-14.6 [employer] [facility] Work Phone: [phone] Lymphocytes 1.08 X10 3/UL Invalid Interpretation Code 0.83-4.51 [employer] Work [phone] Lymphocytes #/vol (Bld) 1.08 X10 3/UL 0.83-4.51 [employer] [facility] Work [phone] neutrophil count, blood 1.8 X10 3/UL Low 2.0-7.7 [employer] [facility] Work Phone: [phone] Neutrophils #/vol (Bld) 1.8 X10 3/UL Low 2.0-7.7 [facility] Work Phone: [phone] Platelet mean volume Entitic volume (Bld) 7.9 fL 6.2-12.0 [employer] [facility] Work Phone: [phone] PMV by Daniel 7.9 fL Invalid Interpretation Code 6.2-12.0 [facility] Work Phone: [phone] RDW-CA 12.3 % Invalid Interpretation Code 11.6-14.6 [employer] Work Phone: [phone] Lab Report: [facility] Profil 01-18-2016 Alanine aminotransferase (ALT) 26 U/L Invalid Interpretation Code 12-78 [employer] Work [phone] Albumin 3.2 g/dL Low 3.4-5.0 [employer] Work Phone: [phone] Albumin/Globulin Ratio 0.9 {ratio} Invalid Interpretation Code 0.9-2.4 [facility] Work Phone: [phone] Alkaline phosphatase (ALP) 81 U/L Invalid Interpretation Code 50-136 [facility] Work Phone: [phone] ALP enzyme act/vol (Bld) 81 U/L 50-136 [facility] Work Phone: [phone] Anion gap 5 mmol/L Invalid Interpretation Code 5-15 [facility] Work Phone: [phone] Anion gap molar conc 5 mmol/L 5-[address] [facility] Work Phone: [phone] Aspartate aminotransferase (AST) 22 U/L Invalid Interpretation Code 15-37 [facility] Work Phone: [phone] Bilirubin (total) 0.50 mg/dL Invalid Interpretation Code 0.20-1.00 [facility] Work Phone: [phone] BUN/Creatinine Ratio 10.9 RATIO Invalid Interpretation Code 10-20 [facility] Work Phone: [phone] Calcium 8.5 mg/dL Invalid Interpretation Code 8.5-10.1 [facility] Work Phone: [phone] Chloride 105 mmol/L Invalid Interpretation Code 98-107 [facility] Work Phone: [phone] CO2 30.0 mmol/L Invalid Interpretation Code 21.0-32.0 [facility] Work Phone: [phone] CO2 ppres (BldV) 30.0 mmol/L 21.0-32.0 [facility] Work Phone: [phone] Creatinine 1.01 mg/dL Invalid Interpretation Code 0.55-1.20 [facility] Work Phone: [phone] eGFR (non-black) 71 mL/min/{1.73_m2} Invalid Interpretation Code >60 [facility] Work Phone: [phone] eGFR (non-black) 59 mL/min/{1.73_m2} Low >60 [facility] Work Phone: [phone] EST GFR - AA 71 mL/min >60 [employer] Work Phone: [phone] Globulin 3.7 g/dL High 2.3-3.5 [facility] Work Phone: [phone] Globulin mass conc (S) 3.7 g/dL High 2.3-3.5 [facility] Work Phone: [phone] Glucose 109 mg/dL Invalid Interpretation Code 70-110 [facility] Work Phone: [phone] Glucose mass conc 109 mg/dL 70-110 [facility] Work Phone: [phone] Potassium 4.1 mmol/L Invalid Interpretation Code 3.5-5.1 [facility] Work Phone: [phone] Protein 6.9 g/dL Invalid Interpretation Code 6.4-8.2 [facility] Work Phone: [phone] Sodium 140 mmol/L Invalid Interpretation Code 136-145 [facility] Work Phone: [phone] Urea nitrogen 11 mg/dL Invalid Interpretation Code 7-18 [facility] Work Phone: [phone] Lab Report: Ferritinon 01-17 Ferritin 14 ng/mL Invalid Interpretation Code 8-252 [facility] Work Phone: [phone] Lab Report: Ironon 6 Iron 77 ug/dL Invalid Interpretation Code 50-170 [facility] Work Phone: [phone] Lab Report: Iron Binding Cap acity,Totalon 01-18-2016 iron binding capacity, total 439 ug/dL Invalid Interpretation Code 250-450 [facility] Work Phone: [phone] Lab Report: LDHon 01-18-2016 lactate dehydrogenase - serum 252 U/L High 84-246 [facility] Work Phone: [phone] LDH 252 U/L High 84-246 [facility] Work Phone: [phone] Lab Report: Uric Acidon Urate 5.4 mg/dL Invalid Interpretation Code 2.6-6.0 [facility] Work Phone: [phone] Office Visiton 07-25-2015 Protein mass conc yes [facility] Work Phone: [phone] Smoking cessation education (procedure) yes Invalid Interpretation Code [facility] Work Phone: [phone] Lab Report: Vitamin B12on Cobalamin (Vitamin B12) mass conc 286 pg/mL 211-911 [employer] [facility] Work Phone: [phone] vitamin b12, serum 286 pg/mL Invalid Interpretation Code 911 [employer] [facility] Work Phone: [phone] Lab Report: Folates, (Folic Acid)on 06-27-2015 Folate 6.40 ng/mL Invalid Interpretation Code 3.1-17.5 [facility] Work Phone: [phone] Lab Report: CBC W/Diff, Auto matedon 01-03-2015 Erythrocyte distribution width Ratio (RBC) 41.3 fL 35.1-43.9 [employer] [facility] Work Phone: [phone] Immature granulocytes #/vol (Bld) 0.000 % 0.0-0.9 [employer] [facility] Work Phone: [phone] immature granulocytes, percentage of total cells, blood 0.000 % Invalid Interpretation Code 0.0-0.9 [facility] Work Phone: [phone] red blood cell distribution width, size density 41.3 fL Invalid Interpretation Code 35.1-43.9 [facility] Work Phone: [phone] Lab Report: CBC W/Diff, Auto - EPLAB Onlyon 11-15-2014 Absolute Neut 1.9 X10 3/UL Low 2.0-7.7 [employer] [facility] Work Phone: [phone] Absolute Neutrophil count 1.9 X10 3/UL Low 2.0-7.7 [facility] Work Phone: [phone] Lab Report: LDHon 11-15-2014 Lactate dehydrogenase (LDH) 205 U/L Invalid Interpretation Code 84-246 [facility] Work Phone: [phone] Lab Report: Haptoglobinon Haptoglobin 108 mg/dL Invalid Interpretation Code 34-200 [employer] [facility] Work Phone: [phone] Lab Report: [place] Lambda Lt Chn Ser. Mon.on 05-15-2014 GE use only - for [employer] import when terms are not otherwise specified . Invalid Interpretation Code [employer] [facility] Work Phone: [phone] K/L GRAPH . [employer] Work Phone: Replaced Document: (P) Eryth ropoietinon 05-14-2014 ERYTHROP [id number] 18.2 m[iU]/mL 2.6-18.5 [facility] Work Phone: [phone] erythropoietin, serum 18.2 m[iU]/mL Invalid Interpretation Code 2.6-18.5 [facility] Work Phone: [phone] Replaced Document: (P) EMILY + Protein Elect, Serumon 05-14-2014 IgG 990 mg/dL Invalid Interpretation Code 700-1600 [facility] Work Phone: [phone] Lab Report: Bilirubin, Direc ton 05-10-2014 Bilirubin (direct) 0.09 mg/dL Invalid Interpretation Code 0.00-0.30 [facility] Work Phone: Lab Report: Retic Panelon Reticulocytes/100 erythrocytes 1.47 % Invalid Interpretation Code 0.5-1.5 [facility] Work Phone: [phone] Reticulocytes/100 RBC (Bld) 1.47 % 0.5-1.5 [facility] Work Phone: Lab Report: Thyroid Stim Hor chauncey (TSH)on 05-10-2014 Thyroid stimulating hormone (TSH) 2.52 u[iU]/mL Invalid Interpretation Code 0.358-3.74 [facility] Work Phone: Office Visit: 6 mo f/u (DEEPIKA/ neutropenia) PHQ9 Completeon 01-13-2014 Breast Mammogram screening Normal Bilateral Invalid Interpretation Code [facility] Work Phone: Office Visit: 6 mo f/u (DEEPIKA/ neutropenia) PHQ9 Completeon 01-12-2013 Colonoscopy (procedure) Colonoscopy (procedure) Invalid Interpretation Code [facility] Work Phone: [phone] Protein mass conc Colonoscopy (procedure) [facility] Work Phone: [phone] Vital Signs Date Time Vital Sign Value Performing Clinician Facility 06-28-2024 11:05-0400 Heart rate 58 /min Dr. Eric Lozano MD Work Phone: [facility] 06-28-2024 11:05-0400 Respiratory rate 19 /min Dr. Eric Lozano MD Work Phone: [facility] 06-28-2024 11:05-0400 SaO2% (BldA) [Mass fraction] 94 % Dr. Eric Lozano MD Work Phone: [facility] 06-28-2024 09:06-0400 Body height 172.[address] Eric Lozano MD Work Phone: [facility] 06-28-2024 09:06-0400 Body mass index (BMI) [Ratio] 31.9 kg/m2 Dr. Eric Lozano MD Work Phone: [facility] 06-28-2024 09:06-0400 Body temperature 97.2 [degF] Dr. Eric Lozano MD Work Phone: [facility] 06-28-2024 09:06-0400 Body weight 95.[address] Eric Lozano MD Work Phone: [facility] 06-28-2024 09:06-0400 Diastolic blood pressure 65 mm[Hg] Dr. Eric Lozano MD Work Phone: [facility] 06-28-2024 09:06-0400 Systolic blood pressure 195 mm[Hg] Dr. Erci Lozano MD Work Phone: [facility] 06-06-2024 09:08-0500 Body temperature 98.01 [degF] Lynn Moomaw CVICU NURSE.RECTIFICATION PRINTER Work Phone: [facility] 06-06-2024 09:08-0500 Body weight 95.8 kg Lynn Moomaw CVICU NURSE.RECTIFICATION PRINTER Work Phone: [facility] 06-06-2024 09:08-0500 Diastolic blood pressure 78 mm[Hg] Lynn Moomaw CVICU NURSE.RECTIFICATION PRINTER Work Phone: [facility] 06-06-2024 09:08-0500 Heart rate 74 /min Lynn Moomaw CVICU NURSE.RECTIFICATION PRINTER Work Phone: [facility] 06-06-2024 09:08-0500 Respiratory rate 20 /min Lynn Moomaw CVICU NURSE.RECTIFICATION PRINTER Work Phone: [facility] 06-06-2024 09:08-0500 SaO2% (BldA) [Mass fraction] 98 % Lynn Moomaw CVICU NURSE.RECTIFICATION PRINTER Work Phone: [facility] 06-06-2024 09:08-0500 Systolic blood pressure 154 mm[Hg] Lynn Moomaw CVICU NURSE.RECTIFICATION PRINTER Work Phone: [facility] 05-26-2024 10:06-0500 Body temperature 99.7 [degF] Mira Clutter PA-C Work Phone: [facility] 05-26-2024 10:06-0500 Body weight 95.4 kg Mira Clutter PA-C Work Phone: [facility] 05-26-2024 10:06-0500 Diastolic blood pressure 68 mm[Hg] Mira Clutter PA-C Work Phone: [facility] 05-26-2024 10:06-0500 Heart rate 79 /min Mira Clutter PA-C Work Phone: [facility] 05-26-2024 10:06-0500 Respiratory rate 20 /min Mira Clutter PA-C Work Phone: [facility] 05-26-2024 10:06-0500 SaO2% (BldA) [Mass fraction] 98 % Mira Clutter PA-C Work Phone: [facility] 05-26-2024 10:06-0500 Systolic blood pressure 140 mm[Hg] Mira Clutter PA-C Work Phone: [facility] 04-01-2024 15:06-0500 Body temperature 98.6 [degF] Dr. Eric Lozano MD Work Phone: [facility] 04-01-2024 15:06-0500 Diastolic blood pressure 55 mm[Hg] Dr. Eric Lozano MD Work Phone: [facility] 04-01-2024 15:06-0500 Heart rate 73 /min Dr. Eric Lozano MD Work Phone: [facility] 04-01-2024 15:06-0500 Respiratory rate 17 /min Dr. Eric Lozano MD Work Phone: [facility] 04-01-2024 15:06-0500 SaO2% (BldA) [Mass fraction] 98 % Dr. Eric Lozano MD Work Phone: [facility] 04-01-2024 15:06-0500 Systolic blood pressure 140 mm[Hg] Dr. Eric Lozano MD Work Phone: [facility] 03-31-2024 11:17-0500 Body mass index (BMI) [Ratio] 30.4 kg/m2 Dr. Eric Lozano MD Work Phone: [facility] 03-31-2024 11:17-0500 Body weight [address] Eric Lozano MD Work Phone: [facility] 10-13-2023 09:21-0400 Body temperature 98.49 [degF] Katharine Valencia CVICU NURSE.RECTIFICATION PRINTER Work Phone: [facility] 10-13-2023 09:21-0400 Body weight 89.2 kg Katharine Valencia CVICU NURSE.RECTIFICATION PRINTER Work Phone: [facility] 10-13-2023 09:21-0400 Diastolic blood pressure 80 mm[Hg] Katharine Valencia CVICU NURSE.RECTIFICATION PRINTER Work Phone: [facility] 10-13-2023 09:21-0400 Heart rate 96 /min Katharine Valencia CVICU NURSE.RECTIFICATION PRINTER Work Phone: [facility] 10-13-2023 09:21-0400 Respiratory rate 20 /min Katharine Valencia CVICU NURSE.RECTIFICATION PRINTER Work Phone: [facility] 10-13-2023 09:21-0400 SaO2% (BldA) [Mass fraction] 99 % Katharine Valencia CVICU NURSE.RECTIFICATION PRINTER Work Phone: [facility] 10-13-2023 09:21-0400 Systolic blood pressure 128 mm[Hg] Katharine Valencia NATHAN Work Phone: [facility] 08-12-2023 10:29-0400 Body height 172.[address] Eric Lozano Work Phone: [facility] 08-12-2023 10:29-0400 Diastolic blood pressure 67 mm[Hg] Dr. Eric Lozano Work Phone: [facility] 08-12-2023 10:29-0400 Heart rate 58 /min Dr. Eric Lozano Work Phone: [facility] 08-12-2023 10:29-0400 SaO2% (BldA) [Mass fraction] 99 % Dr. Eric Lozano Work Phone: [facility] 08-12-2023 10:29-0400 Systolic blood pressure 109 mm[Hg] Dr. Eric Lozano Work Phone: [facility] 07-31-2023 14:42-0400 Body temperature 98 [degF] Dr. Eric Lozano Work Phone: [facility] 07-31-2023 14:42-0400 Diastolic blood pressure 62 mm[Hg] Dr. Eric Lozano Work Phone: [facility] 07-31-2023 14:42-0400 Heart rate 84 /min Dr. Eric Lozano Work Phone: [facility] 07-31-2023 14:42-0400 Respiratory rate 12 /min Dr. Eric Lozano Work Phone: [facility] 07-31-2023 14:42-0400 SaO2% (BldA) [Mass fraction] 98 % Dr. Eric Lozano Work Phone: [facility] 07-31-2023 14:42-0400 Systolic blood pressure 150 mm[Hg] Dr. Eric Lozano Work Phone: [facility] 07-31-2023 05:21-0400 Body mass index (BMI) [Ratio] 32.1 kg/m2 Dr. Eric Lozano Work Phone: [facility] 07-31-2023 05:21-0400 Body weight 95.[address] Eric Lozano Work Phone: [facility] 07-30-2023 16:00-0400 Inhaled oxygen flow rate 0 L/min Dr. Eric Lozano Work Phone: [facility] 07-29-2023 14:37-0400 Body height 172.[address] Eric Lozano Work Phone: [facility] 07-28-2023 15:00-0400 Body temperature 97.3 [degF] [facility] 07-28-2023 15:00-0400 Diastolic blood pressure 78 mm[Hg] [facility] 07-28-2023 15:00-0400 Heart rate 76 /min [facility] 07-28-2023 15:00-0400 Respiratory rate 16 /min [facility] 07-28-2023 15:00-0400 SaO2% (BldA) [Mass fraction] 96 % [facility] 07-28-2023 15:00-0400 Systolic blood pressure 116 mm[Hg] [facility] 07-28-2023 11:37-0400 Body height 172.72 cm [facility] 07-28-2023 11:37-0400 Body mass index (BMI) [Ratio] 34.3 kg/m2 [facility] 07-28-2023 11:37-0400 Body weight 102.51 kg [facility] 05-31-2023 17:47-0500 Body temperature 98 [degF] [facility] 05-31-2023 17:47-0500 Diastolic blood pressure 59 mm[Hg] [facility] 05-31-2023 17:47-0500 Heart rate 60 /min [facility] 05-31-2023 17:47-0500 Respiratory rate 16 /min [facility] 05-31-2023 17:47-0500 SaO2% (BldA) [Mass fraction] 95 % [facility] 05-31-2023 17:47-0500 Systolic blood pressure 141 mm[Hg] [facility] 05-31-2023 14:54-0500 Body height 172.72 cm [facility] 05-31-2023 14:54-0500 Body mass index (BMI) [Ratio] 35.9 kg/m2 [facility] 05-31-2023 14:54-0500 Body weight 107.3 kg [facility] 01-29-2023 12:21-0400 Body temperature 98.2 [degF] Ronaldo Karan CVICU NURSE.RECTIFICATION PRINTER Work Phone: [facility] 01-29-2023 12:21-0400 Body weight 103.15 kg Ronaldo Karan CVICU NURSE.RECTIFICATION PRINTER Work Phone: [facility] 01-29-2023 12:21-0400 Diastolic blood pressure 76 mm[Hg] Ronaldo Karan CVICU NURSE.RECTIFICATION PRINTER Work Phone: [facility] 01-29-2023 12:21-0400 Heart rate 66 /min Ronaldo Karan CVICU NURSE.RECTIFICATION PRINTER Work Phone: [facility] 01-29-2023 12:21-0400 Respiratory rate 16 /min Ronaldo Karan CVICU NURSE.RECTIFICATION PRINTER Work Phone: [facility] 01-29-2023 12:21-0400 SaO2% (BldA) [Mass fraction] 96 % Ronaldo Karan CVICU NURSE.RECTIFICATION PRINTER Work Phone: [facility] 01-29-2023 12:21-0400 Systolic blood pressure 122 mm[Hg] Ronaldo Karan CVICU NURSE.RECTIFICATION PRINTER Work Phone: [facility] 12-23-2022 10:38-0400 Body temperature 97.2 [degF] Ronaldo Karan CVICU NURSE.RECTIFICATION PRINTER Work Phone: [facility] 12-23-2022 10:38-0400 Body weight 102.6 kg Ronaldo Karan CVICU NURSE.RECTIFICATION PRINTER Work Phone: [facility] 12-23-2022 10:38-0400 Diastolic blood pressure 68 mm[Hg] Ronaldo Karan CVICU NURSE.RECTIFICATION PRINTER Work Phone: [facility] 12-23-2022 10:38-0400 Heart rate 85 /min Ronaldo Russo CVICU NURSE.RECTIFICATION PRINTER Work Phone: [facility] 12-23-2022 10:38-0400 Respiratory rate 21 /min Ronaldo Russo CVICU NURSE.RECTIFICATION PRINTER Work Phone: [facility] 12-23-2022 10:38-0400 SaO2% (BldA) [Mass fraction] 97 % Ronaldo Russo CVICU NURSE.RECTIFICATION PRINTER Work Phone: [facility] 12-23-2022 10:38-0400 Systolic blood pressure 150 mm[Hg] Ronaldo Russo CVICU NURSE.RECTIFICATION PRINTER Work Phone: [facility] 11-08-2022 08:38-0400 Body height 175.[address] Eric Lozano Work Phone: [facility] 11-08-2022 08:38-0400 Body mass index (BMI) [Ratio] 33.3 kg/m2 Dr. Eric Lozano Work Phone: [facility] 11-08-2022 08:38-0400 Body weight 102.[address] Eric Lozano Work Phone: [facility] 11-08-2022 08:38-0400 Diastolic blood pressure 73 mm[Hg] Dr. Eric Lozano Work Phone: [facility] 11-08-2022 08:38-0400 Heart rate 56 /min Dr. Eric Lozano Work Phone: [facility] 11-08-2022 08:38-0400 Respiratory rate 16 /min Dr. Eric Lozano Work Phone: [facility] 11-08-2022 08:38-0400 SaO2% (BldA) [Mass fraction] 98 % Dr. Eric Lozano Work Phone: [facility] 11-08-2022 08:38-0400 Systolic blood pressure 152 mm[Hg] Dr. Eric Lozano Work Phone: [facility] 09-26-2022 08:50-0400 Body temperature 99.39 [degF] Faisal Addis CVICU NURSE.RECTIFICATION PRINTER Work Phone: [facility] 09-26-2022 08:50-0400 Body weight 102.97 kg Faisal Mancini CVICU NURSE.RECTIFICATION PRINTER Work Phone: [facility] 09-26-2022 08:50-0400 Diastolic blood pressure 88 mm[Hg] [facility] NURSE.RECTIFICATION PRINTER Work Phone: [facility] 09-26-2022 08:50-0400 Heart rate 76 /min [facility] CVICU NURSE.RECTIFICATION PRINTER Work Phone: [facility] 09-26-2022 08:50-0400 Respiratory rate 18 /min [facility] CVICU NURSE.RECTIFICATION PRINTER Work Phone: [facility] 09-26-2022 08:50-0400 SaO2% (BldA) [Mass fraction] 96 % [facility] CVICU NURSE.RECTIFICATION PRINTER Work Phone: [facility] 09-26-2022 08:50-0400 Systolic blood pressure 134 mm[Hg] [facility] CVICU NURSE.RECTIFICATION PRINTER Work Phone: [facility] 08-15-2022 18:20-0400 Body temperature 98.1 [degF] Ronaldo Russo CVICU NURSE.RECTIFICATION PRINTER Work Phone: [facility] 08-15-2022 18:20-0400 Body weight 108.14 kg Ronaldo Russo CVICU NURSE.RECTIFICATION PRINTER Work Phone: [facility] 08-15-2022 18:20-0400 Diastolic blood pressure 74 mm[Hg] Ronaldo Karan CVICU NURSE.RECTIFICATION PRINTER Work Phone: [facility] 08-15-2022 18:20-0400 Heart rate 63 /min Ronaldo Karan CVICU NURSE.RECTIFICATION PRINTER Work Phone: [facility] 08-15-2022 18:20-0400 Respiratory rate 16 /min Ronaldo Karan CVICU NURSE.RECTIFICATION PRINTER Work Phone: [facility] 08-15-2022 18:20-0400 SaO2% (BldA) [Mass fraction] 97 % Ronaldo Karan CVICU NURSE.RECTIFICATION PRINTER Work Phone: [facility] 08-15-2022 18:20-0400 Systolic blood pressure 130 mm[Hg] Ronaldo Karan CVICU NURSE.RECTIFICATION PRINTER Work Phone: [facility] 04-13-2022 08:32-0500 Body temperature 98.49 [degF] Ronaldo Karan CVICU NURSE.RECTIFICATION PRINTER Work Phone: [facility] 04-13-2022 08:32-0500 Body weight 107.05 kg Ronaldo Russo CVICU NURSE.RECTIFICATION PRINTER Work Phone: [facility] 04-13-2022 08:32-0500 Diastolic blood pressure 68 mm[Hg] Ronaldo Karan CVICU NURSE.RECTIFICATION PRINTER Work Phone: [facility] 04-13-2022 08:32-0500 Heart rate 88 /min Ronaldo Karan CVICU NURSE.RECTIFICATION PRINTER Work Phone: [facility] 04-13-2022 08:32-0500 Respiratory rate 18 /min Ronaldo Karan CVICU NURSE.RECTIFICATION PRINTER Work Phone: [facility] 04-13-2022 08:32-0500 SaO2% (BldA) [Mass fraction] 99 % Ronaldo Russo CVICU NURSE.RECTIFICATION PRINTER Work Phone: [facility] 04-13-2022 08:32-0500 Systolic blood pressure 122 mm[Hg] Ronaldo Russo CVICU NURSE.RECTIFICATION PRINTER Work Phone: [facility] 03-14-2022 09:52-0500 Body temperature 100 [degF] Anny Roach CVICU NURSE.RECTIFICATION PRINTER Work Phone: [facility] 03-14-2022 09:52-0500 Body weight 106.69 kg Anny Roach CVICU NURSE.RECTIFICATION PRINTER Work Phone: [facility] 03-14-2022 09:52-0500 Diastolic blood pressure 86 mm[Hg] Anny Roach CVICU NURSE.RECTIFICATION PRINTER Work Phone: [facility] 03-14-2022 09:52-0500 Heart rate 74 /min Anny Roach APRN.RECTIFICATION PRINTER Work Phone: [facility] 03-14-2022 09:52-0500 Respiratory rate 18 /min Anny Roach APRN.RECTIFICATION PRINTER Work Phone: [facility] 03-14-2022 09:52-0500 SaO2% (BldA) [Mass fraction] 97 % Anny Roach APRN.RECTIFICATION PRINTER Work Phone: [facility] 03-14-2022 09:52-0500 Systolic blood pressure 142 mm[Hg] Anny Roach APRN.RECTIFICATION PRINTER Work Phone: [facility] 11-08-2021 09:10-0400 Body height 175.[address] Eric Lozano Work Phone: [facility] Work Phone: 11-08-2021 09:10-0400 Body mass index (BMI) [Ratio] 34 kg/m2 Dr. Eric Lozano Work Phone: [facility] Work Phone: 11-08-2021 09:10-0400 Body weight 104.[address] Eric Lozano Work Phone: [facility] Work Phone: 11-08-2021 09:10-0400 Heart rate 56 /min Dr. Eric Lozano Work Phone: [facility] Work Phone: 11-08-2021 09:10-0400 Respiratory rate 16 /min Dr. Eric Lozano Work Phone: [facility] Work Phone: 11-08-2021 09:10-0400 SaO2% (BldA) [Mass fraction] 98 % Dr. Eric Lozano Work Phone: [facility] Work Phone: 09-14-2021 10:05-0400 Body temperature 99 [degF] Anny Roach APRN.RECTIFICATION PRINTER Work Phone: [facility] 09-14-2021 10:05-0400 Body weight 107.78 kg Anny Roach APRN.RECTIFICATION PRINTER Work Phone: [facility] 09-14-2021 10:05-0400 Diastolic blood pressure 94 mm[Hg] Anny Roach APRN.RECTIFICATION PRINTER Work Phone: [facility] 09-14-2021 10:05-0400 Heart rate 85 /min Anny Roach APRN.RECTIFICATION PRINTER Work Phone: [facility] 09-14-2021 10:05-0400 Respiratory rate 22 /min Anny Roach APRN.RECTIFICATION PRINTER Work Phone: [facility] 09-14-2021 10:05-0400 SaO2% (BldA) [Mass fraction] 97 % Anny Roach APRN.RECTIFICATION PRINTER Work Phone: [facility] 09-14-2021 10:05-0400 Systolic blood pressure 168 mm[Hg] Anny Roach APRN.RECTIFICATION PRINTER Work Phone: [facility] 09-07-2021 10:22-0400 Body temperature 98.29 [degF] Anny Roach APRN.RECTIFICATION PRINTER Work Phone: [facility] 09-07-2021 10:22-0400 Body weight 110.68 kg Anny Roach APRN.RECTIFICATION PRINTER Work Phone: [facility] 09-07-2021 10:22-0400 Diastolic blood pressure 82 mm[Hg] Anny Roach APRN.RECTIFICATION PRINTER Work Phone: [facility] 09-07-2021 10:22-0400 Heart rate 82 /min Anny Roach APRN.RECTIFICATION PRINTER Work Phone: [facility] 09-07-2021 10:22-0400 Respiratory rate 24 /min Anny Roach APRN.RECTIFICATION PRINTER Work Phone: [facility] 09-07-2021 10:22-0400 SaO2% (BldA) [Mass fraction] 93 % Anny Roach APRN.RECTIFICATION PRINTER Work Phone: [facility] 09-07-2021 10:22-0400 Systolic blood pressure 152 mm[Hg] Anny Roach APRN.RECTIFICATION PRINTER Work Phone: [facility] 10-16-2016 15:12-0400 Heart rate 48 /min Ellievielka Lozano [facility] Work Phone: 10-16-2016 14:46-0400 BMI (Body Mass Index) 34.85 kg/m2 [facility] Work Phone: 10-16-2016 14:46-0400 BP Diastolic 60 mm[Hg] Ellievielka [facility] Work Phone: 10-16-2016 14:46-0400 BP Systolic 122 mm[Hg] Ellievielka [facility] Work Phone: 10-16-2016 14:46-0400 Height 175.26 cm [facility] Work Phone: 10-16-2016 14:46-0400 Pulse (Heart Rate) 52 /min [facility] Work Phone: 10-16-2016 14:46-0400 Respiratory Rate 18 /min [facility] Work Phone: 10-16-2016 14:46-0400 Weight 107.05 kg Ellie [facility] Work Phone: 01-22-2016 10:56-0400 BMI (Body Mass Index) 36.5 kg/m2 Nicole [facility] Work Phone: 01-22-2016 10:56-0400 Body Temperature 98 [degF] Nicole Weathers RN [facility] Work Phone: 01-22-2016 10:56-0400 BP Diastolic 75 mm[Hg] Nicole Weathers RN [facility] Work Phone: 01-22-2016 10:56-0400 BP Systolic 131 mm[Hg] Nicole Weathers RN [facility] Work Phone: 01-22-2016 10:56-0400 BSA (Body Surface Area) 2.26 m2 Nicole Weathers RN [facility] Work Phone: 01-22-2016 10:56-0400 Height 175.26 cm Nicole Weathers RN [facility] Work Phone: 01-22-2016 10:56-0400 Pulse (Heart Rate) 68 /min Nicole Weathers RN [facility] Work Phone: 01-22-2016 10:56-0400 Pulse Oximetry 95 % Nicole Weathers RN [facility] Work Phone: 01-22-2016 10:56-0400 Respiratory Rate 18 /min Nicole Weathers RN [facility] Work Phone: 01-22-2016 10:56-0400 Weight 112.36 kg Nicole Weathers RN [facility] Work Phone: 01-22-2016 10:56-0400 Weight 112.13 kg Nicole Weathers RN [facility] Work Phone: 07-25-2015 11:17-0400 Body Temperature 98.01 [degF] Nicole Weathers RN [facility] Work Phone: 05-09-2014 13:39-0500 Height 175.26 cm Nicole Weathers RN [facility] Work Phone: Encounters Encounter Date Encounter Type Care Provider Facility Start: 07-21-2024 End: 07-21-[address] Eric Lozano MD Work Phone: [facility] Work Phone: Start: 07-21-2024 End: 07-21-[address] Sheeba Velasco MD -Laboratory, [place] Work Phone: Start: 07-21-2024 End: 07-21-2024 ambulatory Sheeba Velasco Facility:[facility] Start: 06-28-2024 End: 06-28-2024 Emergency department patient visit Dr. Eric Lozano MD Work Phone: -Emergency Department Work Phone: Start: 06-22-2024 End: 06-22-[address] Mario Taveras MD -[facility] Start: 06-22-2024 End: 06-22-2024 ambulatory Eric Lozano Facility:[facility] Start: 06-06-2024 End: 06-06-2024 ambulatory ERIC Hurd [place] Facility:[facility] Start: 06-06-2024 End: 06-06-2024 Patient encounter procedure Lynn Braxton RECTIFICATION PRINTER Work Phone: [facility] Comment on above: Bacterial sinusitis (Primary Dx) Start: 05-26-2024 End: 05-26-2024 Office outpatient visit 25 minutes Mira Valencia PA-C Work Phone: [facility] Comment on above: Acute cough (Primary Dx); Viral bronchitis Start: 05-26-2024 End: 05-26-2024 ambulatory ERIC LOZANO Facility:[facility] Start: 05-26-2024 End: 05-26-2024 Subsequent hospital visit by physician Xr [facility] Work Phone: Radiology Comment on above: Acute cough [R05.1] Start: 04-28-2024 End: 04-28-[address] Sheeba Velasco MD -Laboratory, [place] Work Phone: Start: 04-28-2024 End: 04-28-2024 ambulatory Sheeba Velasco Facility:[facility] Start: 04-01-2024 Non-patient / Non-visit Dr. Sheri Lamb DO [facility] Work Phone: Start: 04-01-2024 ambulatory Yudy Angel NP Facility :[facility] Start: 03-31-2024 Non-patient / Non-visit Dr. Eric delvalle DO [facility] Work Phone: Start: 03-31-2024 End: 04-01-2024 ambulatory Eric Peace Facility:[facility] Start: 03-31-2024 End: 04-01-2024 Evaluation and management of inpatient Dr. Sheri Lamb DO -Progressive Care Unit Work Phone: Start: 03-31-2024 End: 03-31-2024 Patient encounter procedure Yudy Angel FORENSIC INVESTIGATOR-C -Cat Scan, [facility] Work Phone: Start: 03-31-2024 End: 03-31-2024 ambulatory Yudy Angel NP Facility:[facility] Start: 03-29-2024 End: 03-29-2024 ambulatory ERIC LOZANO Facility:[facility] Start: 02-06-2024 ambulatory Eric Olmos Facility:[facility] Start: 02-06-2024 End: 02-06-2024 ambulatory Eric Lozano Facility:[facility] Start: 02-03-2024 End: 02-03-2024 [facility] Start: 01-28-2024 End: 01-28-2024 ambulatory Eric Lozano Facility:[facility] Start: 01-06-2024 End: 01-06-2024 ambulatory Eric Lozano Facility:[facility] Start: 11-18-2023 End: 11-18-2023 ambulatory Eric Lozano Facility:[facility] Start: 11-12-2023 End: 11-12-2023 ambulatory Sheeba Rod Facility:[facility] Start: 10-27-2023 End: 10-27-2023 ambulatory Eric Lozano Facility:[facility] Start: 10-13-2023 End: 10-13-2023 Subsequent hospital visit by physician Xr [facility] Work Phone: Radiology Comment on above: Acute cough [R05.1] Start: 10-13-2023 End: 10-13-2023 ambulatory ERIC LOZANO Facility:[facility] Start: 10-13-2023 End: 10-13-2023 Patient encounter procedure Katharine Valencia APRN.RECTIFICATION PRINTER Work Phone: [facility] Comment on above: Acute cough (Primary Dx); URI, acute Start: 09-06-2023 End: 09-06-2023 Emergency department patient visit Eric Lozano Facility:[facility] Start: 08-14-2023 End: 08-14-[address] Eric Lozano Work Phone: [facility] Work Phone: Start: 08-14-2023 End: 08-14-[address] Eric Lozano Work Phone: [facility]-Laboratory Work Phone: Start: 08-14-2023 End: 08-14-2023 ambulatory [facility] Facility:[facility] Start: 08-12-2023 Non-patient / Non-visit Dr. Arnoldo Lozano Work Phone: [facility] Start: 08-12-2023 End: 08-12-[address] Eric Lozano Work Phone: [facility] Work Phone: Start: 08-12-2023 End: 08-12-[address] Eric Lozano Work Phone: [facility] Work Phone: Start: 08-12-2023 End: 08-12-2023 ambulatory Eric Lozano Facility:[facility] Start: 07-31-2023 Non-patient / Non-visit Dr. Arnoldo Lozano Work Phone: [facility] Work Phone: Start: 07-30-2023 Non-patient / Non-visit Dr. Arnoldo Lozano Work Phone: [facility] Work Phone: Start: 07-30-2023 ambulatory Eric Olmos Facility:[facility] Start: 07-30-2023 Non-patient / Non-visit Dr. Arnoldo Lozano Work Phone: [facility] Start: 07-29-2023 Non-patient / Non-visit Dr. Arnoldo Lozano Work Phone: [facility] Work Phone: Start: 07-29-2023 ambulatory Eric Lozano Facility:[facility] Start: 07-29-2023 Non-patient / Non-visit Dr. Arnoldo Lozano Work Phone: [facility] Start: 07-29-2023 ambulatory Eric Olmos Facility:[facility] Start: 07-29-2023 Non-patient / Non-visit Dr. Arnoldo Lozano Work Phone: [facility] Start: 07-28-2023 End: 07-31-2023 Evaluation and management of inpatient [facility]-Progressive Care Unit Work Phone: Start: 06-05-2023 End: 06-05-2023 ambulatory [facility] Work Phone: Start: 06-05-2023 End: 06-05-2023 Patient encounter procedure [facility] Work Phone: Start: 05-31-2023 End: 05-31-2023 Emergency department patient visit [facility]-Emergency Department Work Phone: Start: 04-21-2023 End: 04-21-2023 ambulatory [facility] Work Phone: Start: 04-21-2023 End: 04-21-2023 Patient encounter procedure [facility] Work Phone: Start: 02-25-2023 End: 02-25-2023 Subsequent hospital visit by physician Xr [facility] Work Phone: Radiology Comment on above: Closed nondisplaced fracture of proximal phalanx of lesser toe of right foot, initial encounter [S92.514A] Start: 02-12-2023 End: 02-12-[address] Eric Lozano Work Phone: [facility] Work Phone: Start: 02-12-2023 End: 02-12-[address] Eric Lozano Work Phone: [facility] Work Phone: Start: 02-11-2023 End: 02-11-2023 Patient encounter procedure Marek Villaramparo Work Phone: Podiatry Comment on above: Closed nondisplaced fracture of proximal phalanx of lesser toe of right foot, initial encounter Start: 01-29-2023 End: 01-29-2023 Subsequent hospital visit by physician [facility] Work Phone: Radiology Comment on above: Toe injury, right, i nitial encounter [S99.921A] Start: 01-29-2023 End: 01-29-2023 Patient encounter procedure Ronaldo Russo APRN.RECTIFICATION PRINTER Work Phone: [facility] Comment on above: Closed nondisplaced fracture of proximal phalanx of lesser toe of right foot, initial encounter (Primary Dx); Toe injury, right, initial encounter Start: 12-23-2022 End: 12-23-2022 Patient encounter procedure Ronaldo Russo APRN.RECTIFICATION PRINTER Work Phone: [facility] Comment on above: Lower resp. tract in fection (Primary Dx) Start: 12-13-2022 End: 12-13-[address] Eric Lozano Work Phone: [facility] Work Phone: Start: 11-11-2022 End: 11-11-[address] Eirc Lozano Work Phone: [facility] Work Phone: Start: 11-11-2022 End: 11-11-[address] Eric Lozano Work Phone: [facility]-Outpatient Breast Imaging Work Phone: Start: 11-08-2022 End: 11-08-[address] Eric Lozano Work Phone: [facility] Work Phone: Start: 10-03-2022 End: 10-03-[address] Eric Lozano Work Phone: [facility] Work Phone: Start: 09-26-2022 Telephone encounter Anny Roach APRN.RECTIFICATION PRINTER Work Phone: [facility] Comment on above: Results Start: 09-26-2022 End: 09-26-2022 Subsequent hospital visit by physician [facility] Work Phone: Radiology Comment on above: Acute cough [R05.1] Start: 09-26-2022 End: 09-26-2022 Office outpatient visit 25 minutes Faisal Mancini APRN.RECTIFICATION PRINTER Work Phone: [facility] Comment on above: Acute cough (Primary Dx); Viral illness; Suspected COVID-19 virus infection Start: 09-05-2022 End: 09-05-2022 ambulatory [facility] Work Phone: Start: 09-05-2022 End: 09-05-2022 Patient encounter procedure [facility] Start: 08-22-2022 End: 08-22-2022 Patient encounter procedure [facility] Start: 08-15-2022 End: 08-15-2022 Patient encounter procedure Ronaldo Russo OLIVIA.RECTIFICATION PRINTER Work Phone: [facility] Comment on above: Pain in salivary gla nd region (Primary Dx) Start: 06-12-2022 End: 06-12-2022 ambulatory [facility] Work Phone: Start: 06-12-2022 End: 06-12-2022 Patient encounter procedure [facility] Start: 06-04-2022 End: 06-04-2022 ambulatory [facility] Work Phone: Start: 06-04-2022 End: 06-04-2022 Patient encounter procedure [facility]-Outpatient Bone Densitometry Start: 04-22-2022 End: 04-22-2022 ambulatory [facility] Work Phone: Start: 04-22-2022 End: 04-22-2022 Patient encounter procedure [facility] Start: 04-13-2022 End: 04-13-2022 Patient encounter procedure Ronaldo Russo CVICU NURSE.RECTIFICATION PRINTER Work Phone: [facility] Comment on above: Sinobronchitis (Prim vickie Dx) Start: 03-15-2022 Telephone encounter Daria moe PA-C Work Phone: [facility] Comment on above: Results Start: 03-14-2022 End: 03-14-2022 Patient encounter procedure Anny Roach CVICU NURSE.RECTIFICATION PRINTER Work Phone: [facility] Comment on above: URI, acute (Primary Dx) Start: 02-26-2022 End: 02-26-[address] Eric Lozano Work Phone: [facility] Work Phone: Start: 02-26-2022 End: 02-26-[address] Eric Lozano Work Phone: [facility] Start: 01-01-2022 End: 01-01-[address] Eric Lozano Work Phone: [facility] Work Phone: Start: 01-01-2022 End: 01-01-[address] Eric Lozano Work Phone: [facility] Start: 11-27-2021 Non-patient / Non-visit Dr. Arnoldo Lozano Work Phone: [facility] Start: 11-27-2021 End: 11-27-[address] Eric Lozano Work Phone: [facility]-Cardiovascula [facility] Services Start: 11-08-2021 End: 11-08-[address] Eric Lozano Work Phone: [facility]-Outpatient Breast Imaging Start: 11-08-2021 End: 11-08-[address] Eric Lozano Work Phone: [facility] Start: 10-19-2021 End: 10-19-2021 Patient encounter procedure [facility] Start: 09-14-2021 End: 09-14-2021 Patient encounter procedure Anny Roach APRN.RECTIFICATION PRINTER Work Phone: [facility] Comment on above: Cough (Primary Dx) Start: 09-07-2021 End: 09-07-2021 Patient encounter procedure Anny Roach APRN.RECTIFICATION PRINTER Work Phone: [facility] Comment on above: Cough (Primary Dx) Start: 07-11-2021 End: 07-11-2021 Patient encounter procedure [facility]-Cat Scan, [facility] Start: 07-06-2021 End: 07-06-2021 [facility] Start: 07-05-2021 End: 07-05-2021 [facility] Start: 07-04-2021 End: 07-04-2021 [facility] Start: 06-29-2021 End: 06-29-2021 [facility] Start: 06-21-2021 End: 06-21-2021 Patient encounter procedure [facility] Start: 05-29-2021 End: 05-29-2021 [facility] Start: 05-18-2021 End: 05-18-2021 Subsequent hospital visit by physician [facility] Work Phone: Radiology Comment on above: Toe injury, left, in itial encounter [S99.922A] Start: 04-02-2021 Patient encounter procedure [facility] Start: 12-22-2020 End: 12-22-2020 Subsequent hospital visit by physician [facility] Work Phone: Radiology Comment on above: URI, acute [J06.9] Procedures Date Procedure Procedure Detail Performing Clinician Start: 06-28-2024 X-ray of chest, PA and lateral views Dr. Eric Lozano MD Work Phone: Start: 06-22-2024 X-ray of chest, PA and lateral views Dr. Eric Lozano MD Work Phone: Start: 05-26-2024 Radiologic exam chest 2 views Mira Valencia PA-C Work Phone: Start: 03-31-2024 SARS-CoV-2, Influenza & RSV (PCR) Dr. Eric Lozano MD Work Phone: Start: 03-31-[address] Eric Lozano MD Work Phone: Start: 03-31-2024 CT angiography of chest with contrast Dr. Eric Lozano MD Work Phone: Start: 03-31-2024 X-ray of chest, PA and lateral views Dr. Eric Lozano MD Work Phone: Start: 10-13-2023 Radiologic exam chest 2 views Katharinereji Valencia CVICU NURSE.RECTIFICATION PRINTER Work Phone: Start: 07-29-2023 Computed tomography of abdomen and pelvis with contrast Dr. Eric Lozano Work Phone: Start: 07-28-2023 CT angiography of chest with contrast Start: 06-05-2023 End: 06-05-2023 MRI of lower extremity Start: 05-31-2023 Radiologic examination of knee Start: 05-31-2023 Radiography of ankle Start: 01-29-2023 Radex toe minimum 2 views Ronaldo Russo CVICU NURSE.RECTIFICATION PRINTER Work Phone: Start: 11-11-[address] Eric Lozano Work Phone: Start: 09-26-2022 Radiologic exam chest 2 views Faisal Mancini CVICU NURSE.RECTIFICATION PRINTER Work Phone: Start: 06-04-2022 Dual energy X-ray absorptiometry Start: 11-08-[address] Eric Lozano Work Phone: Start: 07-11-2021 CT of chest without contrast Start: 07-06-2021 Investigation of transfusion reaction Start: 07-06-2021 Respiratory microbial culture Start: 07-05-2021 Investigation of transfusion reaction Start: 07-05-2021 End: 07-05-2021 Respiratory microbial culture Start: 07-04-2021 Investigation of transfusion reaction Start: 07-04-2021 Respiratory microbial culture Start: 06-29-2021 Plain chest X-ray Start: 06-21-2021 Plain chest X-ray Start: 05-18-2021 Radex toe minimum 2 views Vianey Hyde CVICU NURSE.RECTIFICATION PRINTER Work Phone: Start: 12-22-2020 Radiologic exam chest 2 views Katharine Valencia CVICU NURSE.RECTIFICATION PRINTER Work Phone: Start: 10-16-2016 End: 10-16-2016 Dietary [...] Phone: Start: 10-23-2015 End: 10-23-2015 Urate Ana Hackett Work Phone: Start: 06-27-2015 End: [...] 01-03-2015 End: 01-03-2015 *CBC with Differential Perez Farheen Hackett Work Phone: Start: 11-15-2014 End: 11-16-2014 *CMP Complete Metabolic Panel Ana Hackett Work Phone: Start: 11-15-2014 End: 11-16-2014 Ferritin Ana Hackett Work Phone: Start: 11-15-2014 End: 11-16-2014 Lactate dehydrogenase (LDH) Ana Hackett Work Phone: Start: 11-15-2014 End: 11-16-2014 Urate Ana Hackett Work Phone: Start: 08-15-2014 End: 11-08-2014 *CBC with Differential Perez Farheen Alam Work Phone: Start: 08-15-2014 End: 08-15-2014 [...] Work Phone: Start: 06-29-2007 Mammography Anny Roach APRN.RECTIFICATION PRINTER Work Phone: Start: 06-26-2007 Lipid 1996 panel - Serum or Plasma Ronaldo Russo APRN.RECTIFICATION PRINTER Work Phone: Acid fast bacilli culture Cytopathology proced ure, preparation of smear, genital source Plan of Treatment Date Care Activity Detail Author Start: 06-16-2025 Screening for malign ant neoplasm of colon [facility] Start: 11-17-2024 Urine microalbumin profile DTa P,Tdap,Td Vaccine (2 - Td or Tdap) [facility] Start: 06-28-2024 [facility] Start: 04-14-2024 Advance Directive Discussion Advance Directive Discussion [facility] Start: 04-01-2024 Patient discharge [facility] Start: 03-31-2024 Following clinical p athway protocol [facility] Start: 03-31-2024 Ambulation without limitation [facility] Start: 03-31-2024 Assessment of risk o f venous thromboembolism [facility] Start: 03-31-2024 Insertion of cathete r into peripheral vein [facility] Start: 03-31-2024 Providing care accor ding to standard [facility] Start: 03-31-2024 [facility] Start: 03-31-2024 Admission procedure [facility] Start: 03-31-2024 Inhalation therapy procedure [facility] Start: 12-14-2023 Influenza vaccination Influenza Vacc ine (#1) [facility] Start: 07-31-2023 Patient discharge [facility] Start: 07-29-2023 Referral to vascular surgeon [facility] Start: 07-28-2023 Following clinical p athway protocol [facility] Start: 07-28-2023 Application of brace [facility] Start: 07-28-2023 Assessment of risk o f venous thromboembolism [facility] Start: 07-28-2023 Fall prevention [facility] Start: 07-28-2023 Inhalation therapy procedure [facility] Start: 07-28-2023 Insertion of cathete r into peripheral vein [facility] Start: 07-28-2023 Introduction of urin vickie catheter [facility] Start: 07-28-2023 Measuring intake and output [facility] Start: 07-28-2023 Oxygen therapy [facility] Start: 07-28-2023 Providing care accor ding to [facility] Start: 07-28-2023 Provision of activit y privileges [facility] Start: 07-28-2023 Referral to occupati onal therapist [facility] Start: 07-28-2023 Referral to service [facility] Start: 07-28-2023 Tobacco use cessatio n education [facility] Start: 07-28-2023 [facility] Start: 07-28-2023 Brain natriuretic pe ptide measurement [facility] Start: 07-28-2023 Verification routine [facility] Start: 07-28-2023 Partial thromboplast in time, activated [facility] Start: 07-28-2023 Prothrombin time [facility] Start: 07-28-2023 Hospital admission, emergency, from emergency room, medical nature [facility] Start: 07-28-2023 Admission procedure [facility] Start: 07-28-2023 End: 07-29-2023 [facility] Start: 07-28-2023 Patient referral to dietitian [facility] Start: 05-31-2023 [facility] Start: 05-31-2023 Application long leg splint thigh ankle/toes APPLICATION LONG LEG SPLINT [facility] Start: 04-14-2023 Advance Directive Discussion Advance Directive Discussion [facility] Start: 04-14-2023 Behavioral Health Screening Behavioral Health Screening [facility] Start: 12-13-2022 Influenza vaccination [facility] Start: 09-26-2022 End: 10-10-2022 Influenza virus A and B RNA and SARS-CoV-2 (COVID-19) N gene panel - Respiratory specimen by JANA with probe detection [facility] Work Phone: Comment on above: Expected: 09/26/2022 , Expires: 10/10/2022 Start: 04-14-2022 ADVANCE DIRECTIVE DISCUSSION ADVANCE DIRECTIVE DISCUSSION [facility] Start: 04-14-2022 DEPRESSION ASSESSMENT DEPRESSION ASS ESSMENT [facility] Start: 03-14-2022 End: 03-28-2022 Influenza virus A and B RNA and SARS-CoV-2 (COVID-19) N gene panel - Respiratory specimen by JANA with probe detection [facility] Work Phone: Comment on above: Expected: 03/14/2022 , Expires: 03/28/2022 Start: 12-13-2021 Influenza vaccination [facility] Start: 04-14-2021 ADVANCE DIRECTIVE DISCUSSION ADVANCE DIRECTIVE DISCUSSION [facility] Start: 04-14-2021 DEPRESSION ASSESSMENT DEPRESSION ASS ESSMENT [facility] Start: 05-08-2018 Pneumococcal Vaccine : 65+ (3 - PPSV23 or PCV20) Pneumococcal Vaccine: 65+ (3 - PPSV23 or PCV20) [facility] Start: 01-23-2018 Pneumococcal Vaccine : 50+ (3 of 3 - PPSV23, PCV20 or PCV21) Pneumococcal Vaccine: 50+ (3 of 3 - PPSV23, PCV20 or PCV21) [facility] Start: 01-23-2018 Pneumococcal Vaccine : 65+ (3 of 3 - PPSV23 or PCV20) Pneumococcal Vaccine: 65+ (3 of 3 - PPSV23 or PCV20) [facility] Start: 10-10-2017 End: 10-10-2017 Appointment Appointment [facility] Work Phone: Start: 01-20-2017 BONE DENSITY BONE DENSITY [facility] Start: 01-20-2017 Bone Density Screening Bone Density Screening [facility] Start: 01-20-2017 Screening for osteoporosis Bone Dens ity Screening [facility] Start: 10-16-2016 End: 10-16-2016 Appointment Appointment [facility] Work Phone: Start: 10-16-2016 End: 10-31-2016 Echocardiography Echocardiogram (complete) [facility] Work Phone: Start: 10-16-2016 End: 10-16-2016 Follow Up Appt 1 year Follow Up Appt 1 year [facility] Work Phone: Start: 10-16-2016 End: 10-16-2016 MMM MMM [facility] Work Phone: Start: 07-15-2016 End: 01-22-2016 *CBC w/Diff - oncology ONLY *CBC w/Diff - oncology ONLY [facility] Work Phone: Start: 07-15-2016 End: 01-22-2016 *CMP Complete Metabolic Panel *CMP Complete Metabolic Panel [facility] Work Phone: Start: 07-15-2016 End: 01-22-2016 *MISC - Miscellaneous Lab Test #1 *MISC - Miscellaneous Lab Test #1 [facility] Work Phone: Start: 07-15-2016 End: 01-22-2016 Cobalamins (Vitamin B12) *B-12 [facility] Work Phone: Start: 07-15-2016 End: 01-22-2016 Ferritin *Ferritin [facility] Work Phone: Start: 07-15-2016 End: 01-22-2016 Iron and Iron binding capacity panel - Serum or Plasma *IBC Iron & Total Iron Binding Capacity [facility] Work Phone: Start: 04-22-2016 End: 01-22-2016 *CBC w/Diff - oncology ONLY *CBC w/Diff - oncology ONLY [facility] Work Phone: Start: 01-22-2016 End: 07-25-2015 *CBC with Differential *CBC with Differential [facility] Work Phone: Start: 01-22-2016 End: 07-25-2015 *CMP Complete Metabolic Panel *CMP Complete Metabolic Panel [facility] Work Phone: Start: 01-22-2016 End: 01-22-2016 Echo exam of abdomen US Abdomen, limited [facility] Work Phone: Start: 01-22-2016 End: 07-25-2015 Ferritin *Ferritin [facility] Work Phone: Start: 01-22-2016 End: 07-25-2015 Iron *Iron [facility] Work Phone: Start: 01-22-2016 End: 07-25-2015 Iron binding capacity [Mass/volume] in Serum or Plasma *TIBC [facility] Work Phone: Start: 01-22-2016 End: 07-25-2015 Lactate dehydrogenase (LDH) *LDH -LDH (Lactate Dehydrogenase) [facility] Work Phone: Start: 01-22-2016 End: 01-22-2016 Mammogram, both breasts Mammogram, Diagnostic, both breasts [employer] [facility] Work Phone: Start: 01-22-2016 End: 01-22-2016 Mammogram, screening Mammogram, Screening, both breasts [facility] Work Phone: Start: 01-22-2016 End: 07-25-2015 Urate *Uric Acid Blood [facility] Work Phone: Start: 10-23-2015 End: 07-25-2015 *CBC with Differential *CBC with Differential [facility] Work Phone: Start: 10-23-2015 End: 10-23-2015 *CMP Complete Metabolic Panel *CMP Complete Metabolic Panel [employer] [facility] Work Phone: Start: 10-23-2015 End: 10-23-2015 Ferritin *Ferritin [facility] Work Phone: Start: 10-23-2015 End: 10-23-2015 Iron *Iron [facility] Work Phone: Start: 10-23-2015 End: 10-23-2015 Iron binding capacity [Mass/volume] in Serum or Plasma *TIBC [facility] Work Phone: Start: 10-23-2015 End: 10-23-2015 Lactate dehydrogenase (LDH) *LDH -LDH (Lactate Dehydrogenase) [facility] Work Phone: Start: 10-23-2015 End: 10-23-2015 Urate *Uric Acid Blood [facility] Work Phone: Start: 06-27-2015 End: 03-28-2015 *CBC with Differential *CBC with Differential [facility] Work Phone: Start: 06-27-2015 End: 06-27-2015 *CMP Complete Metabolic Panel *CMP Complete Metabolic Panel [facility] Work Phone: Start: 06-27-2015 End: 06-28-2015 Cobalamins (Vitamin B12) *B-12 [facility] Work Phone: Start: 06-27-2015 End: 06-27-2015 Ferritin *Ferritin [facility] Work Phone: Start: 06-27-2015 End: 03-28-2015 Folate *FOLS Folates-Folic Acid, Serum [facility] Work Phone: Start: 06-27-2015 End: 06-27-2015 Iron *Iron [facility] Work Phone: Start: 06-27-2015 End: 06-27-2015 Iron binding capacity [Mass/volume] in Serum or Plasma *TIBC [facility] Work Phone: Start: 06-27-2015 End: 06-27-2015 Lactate dehydrogenase (LDH) *LDH -LDH (Lactate Dehydrogenase) [facility] Work Phone: Start: 06-27-2015 End: 06-27-2015 Urate *Uric Acid Blood [facility] Work Phone: Start: 03-28-2015 End: 11-22-2014 *CBC with Differential *CBC with Differential [facility] Work Phone: Start: 02-14-2015 End: 11-22-2014 *CBC with Differential *CBC with Differential [facility] Work Phone: Start: 01-03-2015 End: 01-03-2015 *CBC with Differential *CBC with Differential [facility] Work Phone: Start: 11-15-2014 End: 11-08-2014 *CBC with Differential *CBC with Differential [facility] Work Phone: Start: 11-15-2014 End: 11-16-2014 *CMP Complete Metabolic Panel *CMP Complete Metabolic Panel [facility] Work Phone: Start: 11-15-2014 End: 11-16-2014 Ferritin *Ferritin [facility] Work Phone: Start: 11-15-2014 End: 11-16-2014 Lactate dehydrogenase (LDH) *LDH -LDH (Lactate Dehydrogenase) [facility] Work Phone: Start: 11-15-2014 End: 11-16-2014 Urate *Uric Acid Blood [facility] Work Phone: Start: 08-15-2014 End: 11-08-2014 *CBC with Differential *CBC with Differential [facility] Work Phone: Start: 08-15-2014 End: 08-15-2014 *CMP Complete Metabolic Panel *CMP Complete Metabolic Panel [facility] Work Phone: Start: 08-15-2014 End: 11-08-2014 *MISC - Miscellaneous Lab Test #1 *MISC - Miscellaneous Lab Test #1 [facility] Work Phone: Start: 08-15-2014 End: 08-16-2014 Cobalamins (Vitamin B12) *B-12 [facility] Work Phone: Start: 08-15-2014 End: 08-15-2014 Ferritin *Ferritin [facility] Work Phone: Start: 08-15-2014 End: 08-18-2014 Haptoglobin *HAP Haptoglobin [employer] [facility] Work Phone: Start: 08-15-2014 End: 08-15-2014 Iron *Iron [employer] Work Phone: Start: 08-15-2014 End: 08-15-2014 Iron binding capacity [Mass/volume] in Serum or Plasma *TIBC [employer] [facility] Work Phone: Start: 08-15-2014 End: 08-15-2014 Lactate dehydrogenase (LDH) *LDH -LDH (Lactate Dehydrogenase) [facility] Work Phone: Start: 08-15-2014 End: 08-15-2014 Urate *Uric Acid Blood [facility] Work Phone: Start: 06-25-2012 Lipid 1996 panel - S mona or Plasma Lipid Screening [facility] Start: 06-25-2012 Lipid panel Lipid Screening [facility] Start: 06-25-2012 LIPID SCREEN LIPID SCREEN [facility] Start: 2012 RSV Vaccine (1 - 1-d ose 60+ series) RSV Vaccine (1 - 1-dose 60+ series) [facility] Start: 2012 RSV Vaccine (1 - Ris k 60-74 years 1-dose series) RSV Vaccine (1 - Risk 60-74 years 1-dose series) [facility] Start: 06-25-2010 [facility]ABETES [facility]EN [facility] Start: 06-25-2010 Diabetes Screening Diabetes Screenin g [facility] Start: 06-28-2008 Mammography [facility] Start: 06-28-2008 Screening for malign ant neoplasm of breast Mammogram Screening [facility] Start: 01-20-2002 Influenza vaccination LUNG CANCER SC REENING [facility] Start: 01-20-2002 Screening for malign ant neoplasm of lung Lung Cancer Screening [facility] Start: 01-20-2002 SHINGRIX VACCINE (1 of 2) VILLAR GRIX VACCINE (1 of 2) [facility] Start: 01-20-1997 COLOGUARD (FIT-DNA) COLOGUARD (FIT-D NA) [facility] Start: 01-20-1997 Colonoscopy COLONOSCOPY [facility] Start: 01-20-1997 COLORECTAL CANCER SCREENING COLORECTAL CANCER SCREENING [facility] Start: 01-20-[address] COLONOGRAPHY [facility] Start: 01-20-1997 FECAL OCCULT BLOOD FECAL OCCULT BLOO D [facility] Start: 01-20-1997 Screening for malign ant neoplasm of colon [facility] Start: 01-20-1997 SIGMOIDOSCOPY SIGMOIDOSCOPY [facility] Start: 01-20-1971 SHINGRIX VACCINE (1 of 2) VILLAR GRIX VACCINE (1 of 2) [facility] Start: 01-20-1971 Urine microalbumin profile DTAP,TDAP ,TD (1 - Tdap) [facility] Start: 01-20-1970 Anxiety Screening Anxiety Screening [facility] Start: 01-20-1970 Depression Screening Depression Scre ening [facility] Start: 01-20-1970 HEPATITIS C SCREENING HEPATITIS C SC [facility] Start: 01-20-1970 Hepatitis C screening Hepatitis C Sc [facility] Start: 1964 Adult depression scr eening assessment DEPRESSION SCREENING [facility] Start: 01-20-1963 Screening for malign ant neoplasm of cervix Cervical Cancer Screening [facility] Start: 01-20-1958 PNEUMOCOCCAL: 65+ (1 - PCV) PNEUMOCOCCAL: 65+ (1 - PCV) [facility] Start: 01-20-1957 COVID-19 VACCINE (#1) COVID-19 VACCI NE (#1) [facility] Start: 1950 COVID-19 VACCINE (#1) COVID-19 VACCI NE (#1) [facility] Cyclic citrullinated peptide IgG Ab [Units/volume] in Serum or Plasma [facility] Work Phone: INR in Blood by Coagulation assay [facility] Magnesium [Mass/volu me] in Serum or Plasma [facility] Patient Education [facility] Work Phone: Patient referral [facility] Work Phone: [facility] Work Phone: End: 03-12-2024 XR TOE AP/LAT/OBL RIGHT XR TOE AP/LAT/OBL RIGHT Radiology Routine Closed nondisplaced fracture of proximal phalanx of lesser toe of right foot, initial encounter 1 Occurrences starting 02/11/2023 until 03/12/2024 [facility] Work Phone: Comment on above: 1 Occurrences starti ng 02/11/2023 until 03/12/2024 XR TOE AP/LAT/OBL RIGHT XR TOE A P/LAT/OBL RIGHT Radiology Routine Closed nondisplaced fracture of proximal phalanx of lesser toe of right foot, initial encounter 02/25/2023 10:13 AM EST [facility] Work Phone: [facility] Immunizations Immunization Date Immunization Notes Care Provider Kody padilla 03-01-2019 influenza, injectabl e, quadrivalent, contains preservative Mira Clutter PA-C Work Phone: [facility] 03-01-2019 influenza virus vacc ine, unspecified formulation Ronaldo Russo APRN.CNP Work Phone: [facility] 05-08-2017 pneumococcal conjuga te vaccine, 13 valent Mira Clutter PA-C Work Phone: [facility] 11-17-2014 tetanus toxoid, redu sidra diphtheria toxoid, and acellular pertussis vaccine, adsorbed Mira Clutter PA-C Work Phone: [facility] 04-14-2013 influenza, seasonal, injectable Mira Clutter PA-C Work Phone: [facility] 01-23-2013 pneumococcal polysaccharide vaccine, 23 valent Mira Clutter PA-C Work Phone: [facility] 01-23-2013 Pneumococcal Vaccine [facility] Work Phone: 01-23-2013 pneumococcal vaccine , unspecified formulation Dr. Eric Lozano Work Phone: [facility] Payers Date Payer Category Payer Self-pay [id number] 2017 Medicare MEDICARE MEDICAR E A AND B [id number] 2017-Present [phone] [place] [address] Medicare [id number] 2017 Medicare [id number] 2017 Private Health Insurance HUMANA HUMANA MEDICARE SUPPLEMENT [id number] 2017-Present [phone] [address] [address] [place] [address] Indemnity [id number] 2017 Private Health Insurance [id number] 2017 Medicare [id number] 2017 Private Health Insurance [id number] 2014 Unknown [id number] Unknown [id number] .2.462 Unknown [id number] 2.840.1.342180.3.579 .2.462 Unknown [id number] 2.840.1.517073.3.579 .2.462 Unknown [id number] 2.16840.1.851368.3.579 .2.462 Unknown [id number] 2.16.840.1.610916.3.579 .2.462 Unknown [id number] 2.16840.1.160240.3.579 .2.462 Unknown [id number] 2.16840.1.376761.3.579 .2.462 Unknown [id number] 2.840.1.557867.3.579 .2.462 Unknown [id number] 2.16.840.1.269160.3.579 .2.462 Unknown [id number] 2.16.840.1.230986.3.579 .2.462 Unknown [id number] 2.16.840.1.021016.3.579 .2.462 Unknown [id number] 2.16840.1.657615.3.579 .2.462 Unknown [id number] 2.840.1.476048.3.579 .2.462 Unknown [id number] 2.840.1.244206.3.579 .2.462 Unknown [id number] 2.840.1.608609.3.579 .2.462 Unknown [id number] 2.840.1.152067.3.579 .2.462 Unknown [id number] 2.840.1.750636.3.579 .2.462 Unknown [id number] 2.840.1.349710.3.579 .2.462 Unknown [id number] 2.840.1.338328.3.579 .2.462 Unknown [id number] 2.840.1.966006.3.579 .2.462 Unknown [id number] 2.840.1.559537.3.579 .2.462 Unknown [id number] 2.840.1.800244.3.579 .2.462 Unknown [id number] 2.840.1.774850.3.579 .2.462 Unknown [id number] 2.840.1.397593.3.579 .2.462 Unknown [id number] 2.840.1.503930.3.579 .2.462 Social History Date Type Detail Facility Start: 11-01-2020 End: 07-28-2023 Tobacco smoking status MDIS Unknown if ever smoked [facility] Start: 11-10-2019 None [facility] Start: 11-10-2019 Spouse/ Signif icant Other [facility] Start: 11-10-2019 Cigarettes [facility] Start: 1950 Sex Assigned At Female W [facility] [facility] Start: 12-22-2020 Tobacco smoking stat us MDIS Smokes tobacco daily [facility] Start: 04-14-1982 End: 04-14-2012 History of tobacco use Cigarette Smoker [facility] Start: 09-07-2021 End: 03-29-2024 Alcohol intake Current non-drinker of alcohol (finding) [facility] Start: 1950 Sex Assigned At Not on file [facility] Start: 09-14-2021 End: 06-28-2024 Tobacco smoking status NHIS Ex-smoker [facility] Start: 09-14-2021 End: 02-11-2023 Cigarettes smoked current (pack per day) - Reported 1 [facility] Start: 09-14-2021 End: 03-29-2024 Tobacco use and exposure Smokeless tobacco non-user [facility] Start: 09-14-2021 End: 03-14-2022 Tobacco Comment d/c 2009 [facility] Start: 11-22-2020 End: 03-14-2022 Exposure to SARS-CoV-2 (event) Not sure [facility] Work Phone: Start: 04-14-1982 End: 04-14-2012 History of tobacco use Current smoker [facility] Start: 12-23-2022 End: 02-11-2023 Tobacco use panel [facility] National Score (1-10 0), lower number is lower risk Not on file [facility] Start: 06-28-2024 End: 07-26-2024 Sex Female (finding) [facility] Goals Date Patient Goal Desired Activity /State Functional Status Date Assessment Result Facility 04-01-2024 Functional status Ambulates;Bathroom Priv ilege [facility] Work Phone: 07-31-2023 Functional status Bedside Commode [facility] Work Phone: 07-30-2023 Functional status Assistive Tosin meseret Standard Walker [facility] Work Phone: Mental Status Date Assessment Result Facility 06-28-2024 Cognitive function Level Of Cons ciousness Awake;Alert;Appropriate;Follow s Commands [facility] Work Phone: 04-01-2024 Cognitive function Voice/Name [facility] Work Phone: 07-31-2023 Cognitive function Voice/Name [facility] Work Phone: Clinical Notes 07-15-2007 to 06-28-2024 Lynn Braxton, CVICU NURSE.RECTIFICATION PRINTER - 06/06/2024 9:16 AM Mira Acevedo PA-Margo - 05/26/2024 11:38 AM Marcelo Valdes RT(R) - 05/26/2024 10:20 AM EST Note Date & Type Note Facility 06-28-2024 Discharge summary [facility] 06-28-2024 Radiology Diagnostic study note [facility] Imaging Services [address] [place], [place] [address] Chest PA and Lateral MR#: [id number] Acct: [id number] Name: KIKO GODFREY Rep #: [id number] : 1950 F 74 From: Erlinda Albert MD PCP: Dr. Eric Lozano MD Status: PRE ER Study:Chest PA and Lateral Date of Exam: 06/28/24 Exam# [id number] Ordering Dr: Margo Moralez DO PROCEDURE: CHEST PA AND LATERAL (RADCXR), 06/28/2024 REASON FOR EXAM: COUGH TECHNIQUE: PA and lateral views of the chest were obtained. COMPARISON: 06/22/2024 FINDINGS: Heart: Unremarkable. Mediastinum: Atherosclerosis. Grossly Lungs/pleura: No focal consolidation. Similar mild chronic interstitial prominence, possibly technical and related to chest wall attenuation or perhaps related to mild emphysema. No effusion or visible pneumothorax. Known small nodule better seen previously. Bones: Suspect demineralization. Multilevel spondylosis.. Degenerative changesof the right shoulder. Lines and support devices: None. RAD/Chest PA and Lateral IMPRESSION: 1. Suspect mild emphysema without convincing or visible acute cardiopulmonary findings. If unexplained symptoms persist, consider CT. 2. Additional description as above. Reading Location: [id number] CC: Dr. Gladis Moralez DO; Dr. Eric Lozano MD ~ Mid Level Developer: Signed [facility] 06-06-2024 Note HNO ID: [id number] Author: LYNN BRAXTON APRN.JARED Service: ? Author Type: Nurse Practitioner Type: Progress Notes Filed: 06/06/2024 09:19 Note Text: This note was created using Taste Filter. Subjective Kiko Godfrey is a 74 year old female. HPI Patient presents today for 2 weeks of sinus pain pressure, chest congestion, runny nose and rhinorrhea. Denies any recent fevers. She was seen here about 10 days ago and diagnosed with viral illness with a negative chest x-ray and has been using Tessalon Perles and other entx-qxl-[id number] treatments with no relief of symptoms. She notes worsening of sinus pain and pressure. As above Review of Systems Objective BP 154/78 Pulse 74 Temp 36.7 ?C (98 ?F) Resp 20 Wt 95.8 kg (211 lb 3.2 oz) SpO2 98% Physical Exam Vitals and nursing note reviewed. Constitutional: General: She is not in acute distress. Appearance: Normal appearance. She is not ill-appearing. HENT: Head: Normocephalic. Mouth/Throat: Mouth: Mucous membranes are moist. Pharynx: No oropharyngeal exudate or posterior oropharyngeal erythema. Eyes: Conjunctiva/sclera: Conjunctivae normal. Cardiovascular: Rate and Rhythm: Normal rate and regular rhythm. Pulmonary: Effort: Pulmonary effort is normal. Breath sounds: Normal breath sounds. Comments: Frequent cough noted Musculoskeletal: General: Normal range of motion. Cervical back: Normal range of motion. Skin: General: Skin is warm and dry. Neurological: General: No focal deficit present. Mental Status: She is alert. Psychiatric: Mood and Affect: Mood normal. Behavior: Behavior normal. Assessment and Plan ASSESSMENT/PLAN: 1. Bacterial sinusitis - ICD9: 473.9, 041.9, ICD10: J32.9, B96.89 As patient previously had a negative chest x-ray and lung sounds are clear today with no ongoing fever my suspicion for pneumonia is low. Patient's main complaint seems to be pain and pressure in the sinuses over the last 2 weeks and as such she was started on Augmentin. Her allergy list does show an intolerance to Augmentin but she states that she has taken in the past with no difficulties. She will follow-up with PCP to ensure resolution of symptoms. - AMOXICILLIN 875 MG-POTASSIUM CLAVULANATE 125 MG TABLET Lynn Braxton APRN.CNP [facility] 06-06-2024 History of Present illness Narrative This note was created using Taste Filter. Subjective Kiko Godfrey is a 74 year old female. HPI Patient presents today for 2 weeks of sinus pain pressure, chest congestion, runny nose and rhinorrhea. Denies any recent fevers. She was seen here about 10 days ago and diagnosed with viral illness with a negative chest x-ray and has been using Tessalon Perles and other lldc-aqn-wyzlion treatments with no relief of symptoms. She notes worsening of sinus pain and pressure. As above Review of Systems Objective BP 154/78 Pulse 74 Temp 36.7 C (98 F) Resp 20 Wt 95.8 kg (211 lb 3.2 oz) SpO2 98% Physical Exam Vitals and nursing note reviewed. Constitutional: General: She is not in acute distress. Appearance: Normal appearance. She is not ill-appearing. HENT: Head: Normocephalic. Mouth/Throat: Mouth: Mucous membranes are moist. Pharynx: No oropharyngeal exudate or posterior oropharyngeal erythema. Eyes: Conjunctiva/sclera: Conjunctivae normal. Cardiovascular: Rate and Rhythm: Normal rate and regular rhythm. Pulmonary: Effort: Pulmonary effort is normal. Breath sounds: Normal breath sounds. Comments: Frequent cough noted Musculoskeletal: General: Normal range of motion. Cervical back: Normal range of motion. Skin: General: Skin is warm and dry. Neurological: General: No focal deficit present. Mental Status: She is alert. Psychiatric: Mood and Affect: Mood normal. Behavior: Behavior normal. Assessment and Plan ASSESSMENT/PLAN: 1. Bacterial sinusitis - ICD9: 473.9, 041.9, ICD10: J32.9, B96.89 As patient previously had a negative chest x-ray and lung sounds are clear today with no ongoing fever my suspicion for pneumonia is low. Patient's main complaint seems to be pain and pressure in the sinuses over the last 2 weeks and as such she was started on Augmentin. Her allergy list does show an intolerance to Augmentin but she states that she has taken in the past with no difficulties. She will follow-up with PCP to ensure resolution of symptoms. - AMOXICILLIN 875 MG-POTASSIUM CLAVULANATE 125 MG TABLET Lynn Braxton APRN.JARED documented in this encounter [facility] 05-26-2024 Note HNO ID: [id number] Author: MIRA VALENCIA PA-C Service: ? Author Type: Physician Set Up Mechanic [employer] Type: Progress Notes Filed: 05/26/2024 11:42 Note Text: This note was created using Taste Filter. Subjective Kiko Godfrey is a 74 year old female. Patient is a 74-year-old female who complains of congestion and cough that she has been experiencing for the past 2 days. Patient reports no sinus pressure, ear pain or sore throat. Patient also denies fever, chills or myalgia. Patient has no history of asthma or COPD and does not smoke. Patient states that she did receive the influenza vaccine. Review of Systems HENT: Positive for congestion. Respiratory: Positive for cough. All other systems reviewed and are negative. Objective BP 140/68 Pulse 79 Temp 37.6 ?C (99.7 ?F) Resp 20 Wt 95.4 kg (210 lb 5.1 oz) SpO2 98% Physical Exam Vitals and nursing note reviewed. Constitutional: Appearance: Normal appearance. She is normal weight. HENT: Head: Normocephalic and atraumatic. Right Ear: Tympanic membrane, ear canal and external ear normal. Left Ear: Tympanic membrane, ear canal and external ear normal. Nose: Nose normal. Mouth/Throat: Mouth: Mucous membranes are moist. Pharynx: Oropharynx is clear. Eyes: Extraocular Movements: Extraocular movements intact. Conjunctiva/sclera: Conjunctivae normal. Pupils: Pupils are equal, round, and reactive to light. Cardiovascular: Rate and Rhythm: Normal rate and regular rhythm. Pulses: Normal pulses. Heart sounds: Normal heart sounds. Pulmonary: Effort: Pulmonary effort is normal. Breath sounds: Normal breath sounds. Musculoskeletal: Cervical back: Normal range of motion and neck supple. Skin: General: Skin is warm and dry. Capillary Refill: Capillary refill takes less than 2 seconds. Neurological: General: No focal deficit present. Mental Status: She is alert and oriented to person, place, and time. Psychiatric: Mood and Affect: Mood normal. Behavior: Behavior normal. Thought Content: Thought content normal. Judgment: Judgment normal. Assessment and Plan Physical exam findings as noted above. Chest x-ray is negative for acute findings as reported by the radiologist. Patient was provided with prescriptions for prednisone 20 mg and Tessalon 100 mg and supportive care instructions were discussed. Patient verbalizes excellent understanding of same. CLINICAL IMPRESSION: Viral Bronchitis ASSESSMENT/PLAN: 1. Acute cough - ICD9: 786.2, ICD10: R05.1 (primary diagnosis) - XR CHEST 2V FRONTAL/LAT 2. Viral bronchitis - ICD9: 466.0, ICD10: J20.8 - PREDNISONE 20 MG TABLET - BENZONATATE 100 MG CAPSULE Mira Valencia PA-C [facility] 05-26-2024 History of Present illness Narrative This note was created using Taste Filter. Subjective Kiko Godfrey is a 74 year old female. Patient is a 74-year-old female who complains of congestion and cough that she has been experiencing for the past 2 days. Patient reports no sinus pressure, ear pain or sore throat. Patient also denies fever, chills or myalgia. Patient has no history of asthma or COPD and does not smoke. Patient states that she did receive the influenza vaccine. Review of Systems HENT: Positive for congestion. Respiratory: Positive for cough. All other systems reviewed and are negative. Objective BP 140/68 Pulse 79 Temp 37.6 C (99.7 F) Resp 20 Wt 95.4 kg (210 lb 5.1 oz) SpO2 98% Physical Exam Vitals and nursing note reviewed. Constitutional: Appearance: Normal appearance. She is normal weight. HENT: Head: Normocephalic and atraumatic. Right Ear: Tympanic membrane, ear canal and external ear normal. Left Ear: Tympanic membrane, ear canal and external ear normal. Nose: Nose normal. Mouth/Throat: Mouth: Mucous membranes are moist. Pharynx: Oropharynx is clear. Eyes: Extraocular Movements: Extraocular movements intact. Conjunctiva/sclera: Conjunctivae normal. Pupils: Pupils are equal, round, and reactive to light. Cardiovascular: Rate and Rhythm: Normal rate and regular rhythm. Pulses: Normal pulses. Heart sounds: Normal heart sounds. Pulmonary: Effort: Pulmonary effort is normal. Breath sounds: Normal breath sounds. Musculoskeletal: Cervical back: Normal range of motion and neck supple. Skin: General: Skin is warm and dry. Capillary Refill: Capillary refill takes less than 2 seconds. Neurological: General: No focal deficit present. Mental Status: She is alert and oriented to person, place, and time. Psychiatric: Mood and Affect: Mood normal. Behavior: Behavior normal. Thought Content: Thought content normal. Judgment: Judgment normal. Assessment and Plan Physical exam findings as noted above. Chest x-ray is negative for acute findings as reported by the radiologist. Patient was provided with prescriptions for prednisone 20 mg and Tessalon 100 mg and supportive care instructions were discussed. Patient verbalizes excellent understanding of same. CLINICAL IMPRESSION: Viral Bronchitis ASSESSMENT/PLAN: 1. Acute cough - ICD9: 786.2, ICD10: R05.1 (primary diagnosis) - XR CHEST 2V FRONTAL/LAT 2. Viral bronchitis - ICD9: 466.0, ICD10: J20.8 - PREDNISONE 20 MG TABLET - BENZONATATE 100 MG CAPSULE Mira Valencia PA-C documented in this encounter [facility] 05-26-2024 History of Present illness Narrative Radiology Service Progress Note PATIENT NAME: Kiko Godfrey DATE OF SERVICE: May 26, 2024 TIME: 10:19 AM PATIENT IDENTITY VERIFICATION COMPLETED USING TWO (2) IDENTIFIERS: Name and Date of confirmed by patient verbally. FALL SCREENING: Has the patient had 2 falls in the last year or 1 fall with injury or currently using an Ambulatory Assistive Device (Walker, Cane, Wheelchair, Crutches, etc.)? No PATIENT GENDER DATA: Assigned female at . status: : No status: NO. PATIENT RELEVANT IMPLANT DATA REVIEWED: Not Applicable PATIENT PRESENTS WITH AN IMPLANTABLE OR ATTACHED SPINDLE MAKER: No RADIOLOGY DEPARTMENT: General X-ray: Exam(s) Completed: Chest X-Ray PERIPHERAL IV DATA: Not applicable SIGNED BY: RT Jesus(Fabrice) May 26, 2024 10:19 AM documented in this encounter [facility] 05-26-2024 Note HNO ID: [id number] Author: MARCELO OROPEZA RT(R) Service: Radiology Author Type: Technologist Type: Progress Notes Filed: 05/26/2024 10:25 Note Text: Radiology Service Progress Note PATIENT NAME: Kiko Godfrey DATE OF SERVICE: May 26, 2024 TIME: 10:19 AM PATIENT IDENTITY VERIFICATION COMPLETED USING TWO (2) IDENTIFIERS: Name and Date of confirmed by patient verbally. FALL SCREENING: Has the patient had 2 falls in the last year or 1 fall with injury or currently using an Ambulatory Assistive Device (Walker, Cane, Wheelchair, Crutches, etc.)? No PATIENT GENDER DATA: Assigned female at . status: : No status: NO. PATIENT RELEVANT IMPLANT DATA REVIEWED: Not Applicable PATIENT PRESENTS WITH AN IMPLANTABLE OR ATTACHED SPINDLE MAKER: No RADIOLOGY DEPARTMENT: General X-ray: Exam(s) Completed: Chest X-Ray PERIPHERAL IV DATA: Not applicable SIGNED BY: RT Jesus(Fabrice) May 26, 2024 10:19 AM [facility] 04-01-2024 Note [facility] Medical Records Department [address] [place] [id number] Discharge Summary 04/01/24 1430 MR#: [id number] Acct: [id number] Name: KIKO GODFREY Rep #: [id number] : 1950 74 From: Sheri Lamb DO PCP: Dr. Eric Lozano MD Status:ADM EMILIANO Location: [address] Date of Admission: 03/31/24 Primary Care Physician: Dr. Eric Lozano MD Reason For Visit: COPD EXACERBATION Diagnosis Discharge Diagnosis (1) COPD exacerbation: Status: Chronic Code(s): J44.1 - Chronic obstructive pulmonary disease with (acute) exacerbation Medications at Discharge Home Medications hydroxychloroquine 200 mg tablet 200 mg PO BIDCM 09/18/13 pantoprazole 40 mg tablet,delayed release 40 mg PO DAILY 02/26/19 famotidine 20 mg tablet 20 mg PO BID 11/08/21 blood pressure monitor #1 ea 11/08/22 leucovorin calcium 15 mg tablet 15 mg PO QWEEK counteract the methotrexate 11/08/22 prednisone 2.5 mg tablet 2.5 mg PO DAILY 11/08/22 metoprolol tartrate 50 mg tablet See Rx Instructions .Route .COMPLEX #180 tabs 04/09/23 methotrexate sodium 25 mg/mL injection solution 18.75 mg subcut QWEEK arthritis 07/28/23 sulfasalazine 500 mg tablet,delayed release 1,000 mg PO BID 07/28/23 tramadol 50 mg tablet 50 - 100 mg PO Q6H PRN PRN pain 07/28/23 mecobalamin (vitamin B12) 5,000 mcg chewable tablet 3,000 mcg PO QDAY 01/06/24 potassium citrate 10 mEq (1,080 mg) tablet,extended release 10 meq PO BID 03/31/24 prednisone 10 mg tablet 10 mg PO DAILY #30 tabs 04/01/24 Hospital Course Procedures EKG and - (Chest x-ray/CTA chest) Summary of Care Provided Minutes Spent on Discharge: 37 Hospital Course: Mrs. Godfrey is a 74-year-old white female who presented to the emergency department at [facility] on 03/31/2024 with a chief complaint of shortness of breath. Patient reported over the past week she has been having cough and feeling more short of breath. Initially she noticed it with exertion and became more at rest. She was seen in urgent care and started on azithromycin and prednisone but continue to get worse so she presented to the emergency department. She reported that she got lightheaded and dizzy with exertion and felt like she was ready to pass out. Since she was not improving on her prednisone and azithromycin she came in for further workup. Overall her workup was fairly unremarkable but when they ambulated her her sats dropped into the 70s on room air. The patient does report a history of smoking and quit 12 years ago. She has no formal diagnosis of COPD however. Vital signs on presentation showed a temperature of 36.9, heart rate 90, respiratory 20, blood pressure 146/117, pulse ox was 100% on room air at rest and 70% with exertion. EKG was sinus rhythm with PACs and nonspecific ST-T wave changes. CBC was overtly unremarkable other than chronic normocytic anemia that was stable compared to previous. She had no leukocytosis. Chemistry panel showed mild hypokalemia with potassium of 3.2 which was replaced but was otherwise unremarkable. Liver function was normal. Chest x-ray showed hyperinflation with mild increased markings at the bases suggestive of scarring. CTA of the chest was performed and showed hyperinflation with no evidence of PE, emphysematous changes, solitary gallstone and a small hiatal hernia. Upon my review of the CT it also appears that she has some bronchiectasis. COVID/flu/RSV was negative. The patient was admitted and placed on scheduled nebulizers, oral steroids and aggressive pulmonary toilet with I-S and Acapella. By the a.m. of 04/01/2024 she stated she was feeling much better. At rest on room air she was 97% and with ambulation she was 99% on room air. Her lung sounds have cleared and she was feeling well enough to go home. She will be sent home with a prednisone taper. She can discontinue the azithromycin as I suspect this is likely viral with no infiltrate being noted on her CT. She was able to be discharged home in stable condition with a prednisone taper on 04/01/2024. I have asked that she follow-up with pulmonary medicine and call to set up appointment at their availability. There is no urgency to this follow-up however she would benefit from outpatient PFTs when she is medically stable. I have also asked that she follow-up with her primary care physician in one week. Discharge diagnoses: Acute exacerbation of COPD-resolving Exertional hypoxia-resolved Chronic normocytic anemia Hypokalemia Rheumatoid arthritis GERD Chronic pain Physical Exam Const alert, oriented x3, no apparent distress, no limitations, healthy appearing and well nourished; Negative for average body habitus Constitutional Narrative: Well-appearing, older, white female, obese, sitting up in bed, watching television, appears comfortable, nontoxic General Appearance: cooperative, co (more content not included)... [facility] 03-31-2024 Evaluation note Diagnosis Onset Date Resolution COPD exacerbation resolved Priscilla lauren 2023 10:32am [facility] Work Phone: [phone]) 587-788312-16-2024 NoteHNO ID: [id number] Author: MIRA VALENCIA PA-C Service: ? Author Type: Physician Set Up Mechanic [employer] Type: Progress Notes Filed: 03/29/2024 14:33 Note Text: This note was created using App[employer]. Subjective Kiko Godfrey is a 74 year old female. Patient is a 74-year-old female who complains of worsening loose, productive cough that she has been experiencing for the past 1 week. Patient reports mild congestion but denies sinus pressure, ear pain or sore throat. Patient has no history of asthma or COPD and does not smoke. Patient reports no fever, chills or myalgia. Review of Systems Respiratory: Positive for cough. All other systems reviewed and are negative. Objective BP 132/74 Pulse 70 Temp 36.5 ?C (97.7 ?F) Resp 16 Wt 93.1 kg (205 lb 4 oz) SpO2 99% Physical Exam Vitals and nursing note reviewed. Constitutional: Appearance: Normal appearance. She is normal weight. HENT: Head: Normocephalic and atraumatic. Right Ear: Tympanic membrane, ear canal and external ear normal. Left Ear: Tympanic membrane, ear canal and external ear normal. Nose: Nose normal. Mouth/Throat: Mouth: Mucous membranes are moist. Pharynx: Oropharynx is clear. Eyes: Extraocular Movements: Extraocular movements intact. Conjunctiva/sclera: Conjunctivae normal. Pupils: Pupils are equal, round, and reactive to light. Cardiovascular: Rate and Rhythm: Normal rate and regular rhythm. Pulses: Normal pulses. Heart sounds: Normal heart sounds. Pulmonary: Effort: Pulmonary effort is normal. Breath sounds: Wheezing and rhonchi present. Musculoskeletal: Cervical back: Normal range of motion and neck supple. Skin: General: Skin is warm and dry. Capillary Refill: Capillary refill takes less than 2 seconds. Neurological: General: No focal deficit present. Mental Status: She is alert and oriented to person, place, and time. Psychiatric: Mood and Affect: Mood normal. Behavior: Behavior normal. Thought Content: Thought content normal. Judgment: Judgment normal. Assessment and Plan Physical exam findings as noted above. Patient has allergies to both doxycycline and Augmentin. Patient was provided with prescriptions for Zithromax 250 mg, prednisone 20 mg and an albuterol MDI. Patient was very clearly instructed to report to an emergency department if she notes any acute worsening symptoms as laboratory testing and other interventions will be required. Additional supportive care was reviewed and the patient verbalizes excellent understanding of all instructions. CLINICAL IMPRESSION: Bronchopneumonia ASSESSMENT/PLAN: 1. Bronchopneumonia - ICD9: 485, ICD10: J18.0 - AZITHROMYCIN 250 MG TABLET - PREDNISONE 20 MG TABLET - ALBUTEROL SULFATE HFA 90 MCG/ACTUATION AEROSOL INHALER - INHALATIONAL SPACING DEVICE [facility] NoteHNO ID: [id number] Author: MIRA VALENCIA PA-C Service: ? Author Type: Physician Set Up Mechanic [employer] Type: Progress Notes Filed: 03/29/2024 14:33 Note Text: This note was created using Taste Filter. Subjective Kiko Godfrey is a 74 year old female. HPI Review of Systems Objective BP 132/74 Pulse 70 Temp 36.5 ?C (97.7 ?F) Resp 16 Wt 93.1 kg (205 lb 4 oz) SpO2 99% [facility] History of Present illness Narrative* Beto Adams RT(R) - 10/13/2023 9:40 AM EDT Radiology Service Progress Note PATIENT NAME: Kiko Godfrey DATE OF SERVICE: October 13, 2023 TIME: 9:40 AM PATIENT IDENTITY VERIFICATION COMPLETED USING TWO (2) IDENTIFIERS: Name and Date of confirmedby patient verbally. FALL SCREENING: Has the patient had 2 falls in the last year or 1 fall with injury or currently using an Ambulatory Assistive Device (Walker, Cane, Wheelchair, Crutches, etc.)? No PATIENT GENDER DATA: Female. status: : No status: NO. PATIENT RELEVANT IMPLANT DATA REVIEWED: Yes PATIENT PRESENTS WITH AN IMPLANTABLE OR ATTACHED SPINDLE MAKER: No RADIOLOGY DEPARTMENT: General X-ray: Exam(s) Completed: Chest X-Ray PERIPHERAL IV DATA: Not applicable SIGNED BY: RT Maximino(R) October 13, 2023 9:40 AM [facility] NoteHNO ID: [id number] Author: BETO ADAMS RT(R) Service: Radiology Author Type: Technologist Type: Progress Notes Filed: 10/13/2023 09:47 Note Text: Radiology Service Progress Note PATIENT NAME: Kiko Godfrey DATE OF SERVICE: October 13, 2023 [...] PATIENT PRESENTS WITH AN IMPLANTABLE OR ATTACHED SPINDLE MAKER: No RADIOLOGY DEPARTMENT: General X-ray: Exam(s) Completed: Chest X-Ray PERIPHERAL IV DATA: Not applicable SIGNED BY: CASEY Stanton) October 13, 2023 9:40 [facility]07-01-2024 NoteHNO ID: [id number] Author: KATHARINE VALENCIA APRN.RECTIFICATION PRINTER Service: ? Author Type: Nurse Practitioner Type: Progress Notes Filed: 10/13/2023 10:11 Note Text: This note was created using KOTURAriter. Subjective Kiko Godfrey is a 73 year old female. [...] history is provided by the patient. No multi disciplined language analyst was used. Cough This is a new [...] quittin.5 Smokeless tobacco: Never Tobacco comments: d/c 2010 [...] light-headedness and numbness. Hematol (more content not included)...[facility]07-01-2024 History of Present illness Narrative* Katharine Valencia APRN.[facility] - 10/13/2023 9:32 AM EDT This note was created using KOTURAriter. Subjective Kiko Godfrey is a 73 year old female. [...] history is provided by the patient. No multi disciplined language analyst was used. Cough This is a new [...] quittin.5 Smokeless tobacco: Never Tobacco comments: d/c 2010 [...] noted bilateral upper anterior. No flail chest. Noretractions.) present. No rhonchi or rales. Chest: Chest [...] sooner if worsening of symptoms Katharine Valencia APRN.RECTIFICATION PRINTER [facility] Discharge summary Author Dmitry Grgigs [facility] July 31, 2023 12:04pm Note Date/Time July 31, 2023 11: 12am [facility] Medical Records Department [address] [place] [address] Instructions for Home/Discharge Instructions 07/31/23 1112 MR#: [id number] Acct: [id number] Name: KIKO GODFREY Rep #:[id number] : 1950 73 From: Dmitry virk DO PCP: Dr. Eric Lozano MD Status:ADM IN Discharge Instructions Diet Discharge Diet: No restrictions Follow Up Care Test Results: Test results from this visit will be discussed in further detail at your follow- up appointment, if applicable. Discharge Plan Admission Admit Date/Time: 07/28/23 13:53 Primary Reason for Your Visit: shortness of breath, cough Attending Provider: Dmitry Griggs Primary Care Provider: Eric Lozano Consulting Providers: Sophia Wang; Eric Olmos Discharge Orders/Prescriptions Prescriptions: New Eliquis 5 mg tablet 5 mg PO BID 30 Days Qty: 72 0RF Rx Instructions: Please take 10 mg (2 tablets) twice daily for 6 days (through 08/05), then take 5 mg (1 tablet) twice daily going forward. Continued famotidine 20 mg tablet 20 mg PO BID leucovorin calcium 15 mg tablet 15 mg PO QWEEK Rx Instructions: Pt takes every prednisone 2.5 mg tablet 2.5 mg PO DAILY (DME) blood pressure monitor Kit See Rx Instructions .Route Qty: 1 0RF Rx Instructions: As directed hydroxychloroquine 200 MG tablet 200 mg PO BIDCM Patient Comments: mental health pantoprazole 40 MG tablet,delayed release (DR/EC) 40 mg PO DAILY sulfasalazine 500 mg tablet,delayed release (DR/EC) 1,000 mg PO BID methotrexate sodium 25 mg/mL solution 18.75 mg subcut QWEEK Rx Instructions: Pt takes every Friday tramadol 50 mg tablet 50 - 100 mg PO Q6H PRN PRN (Reason: pain) metoprolol tartrate 50 mg tablet See Rx Instructions .ROUTE .COMPLEX Qty: 180 3RF Dose Instruction: TAKE 1 TABLET TWICE A DAY Rx Instructions: TAKE 1 TABLET TWICE A DAY Referrals / Follow Up: Eric Lozano MD [Primary Care Provider] - Disposition Disposition (needs filled in before D/C Order can be placed): Home, Self Care 07/31/23 1204<Electronically signed by Dmitry Griggs DO>Dmitry Griggs DO CC: Dr. Sophia Wang MD; Dr. Eric Lozano MD; Dr. Eric Olmos MD ~ Signed [facility] Work Phone: [phone]) 160-135104-18-2024 [facility] Medical Records Department [address] [place] [address] Discharge Summary 07/31/23 1115 MR#: [id number] Acct: [id number] Name: KIKO GODFREY Rep #: [id number] : 1950 73 From: Dmitry Griggs DO PCP: Dr. Eric Lozano MD Status:DIS IN Location: [place] [id number] Providers Date of Admission: 07/28/23 Date of Discharge: 07/31/23 Primary Care Physician: Dr. Eric Lozano MD Consultations 07/29/23 15:55 Consult: Vascular Surgery Routine Consulting Provider: Eric Olmos Reason for Consult: extensive DVT w/ PE, HD stable on room air at rest EMERGENT Consult: No MD Notified: Yes Date Notified: 07/29/23 Time Notified: 15:55 Method of Notification: Text 07/29/23 17:04 Consult: Program Management Intern / Pulmonary Medicine Routine Consulting Provider: Intensivists/Pulmonary Med Reason for Consult: PE EMERGENT Consult: No MD Notified: Yes Date Notified: 07/29/23 Time Notified: 17:04 Method of Notification: Verbal Reason For Visit: DYSPNEA, BL PE, ELEVATED TROP Diagnosis Discharge Diagnosis (1) Bilateral pulmonary embolism: Status: Acute Code(s): I26.99 - Other pulmonary embolism without acute cor pulmonale (2) Acute deep vein thrombosis (DVT) of left lower extremity: Status: Acute Code(s): I82.402 - Acute embolism and thrombosis of unspecified deep veins of left lower extremity Medications at Discharge Home Medications hydroxychloroquine 200 mg tablet 200 mg PO BIDCM 09/18/13 pantoprazole 40 mg tablet,delayed release 40 mg PO DAILY 02/26/19 famotidine 20 mg tablet 20 mg PO BID 11/08/21 blood pressure monitor #1 ea 11/08/22 leucovorin calcium 15 mg tablet 15 mg PO QWEEK counteract the methotrexate 11/08/22 prednisone 2.5 mg tablet 2.5 mg PO DAILY 11/08/22 metoprolol tartrate 50 mg tablet See Rx Instructions .Route .COMPLEX #180 tabs 12/27/23 methotrexate sodium 25 mg/mL injection solution 18.75 mg subcut QWEEK arthritis 07/28/23 sulfasalazine 500 mg tablet,delayed release 1,000 mg PO BID 07/28/23 tramadol 50 mg tablet 50 - 100 mg PO Q6H PRN PRN pain 07/28/23 apixaban 5 mg tablet (Eliquis) 5 mg PO BID 30 days #72 tabs 07/31/23 Hospital Course Operations None Procedures EKG, Transthoracic echo and - (CTA chest, venous Doppler study, CT abdomen pelvis, aorta iliac vascular ultrasound, abdominal aorta ultrasound) Summary of Care Provided Minutes Spent on Discharge: 35 Hospital Course: Patient is a 73 year old female who presented to [facility] on 07/28/2023 with shortness of breath on exertion. Hospital course as noted below. Discharged home with no therapy needs in stable condition on 07/30. 1. Bilateral PE, intermediate risk; large acute LLE DVT Presented w/ worse IVORY. PE/DVT presumed secondary to immobility after recent ankle fracture as noted below. CTA chest diffuse b/l emboli w/ thrombus in distal portion of both right and left main pulmonary arteries. TTE 07/28 showed EF 55%, moderately dilated RV, mild global RV systolic dysfunction, PASP 44 mmHg. LE duplex US showed acute DVT from left femoral vein all the way down to posterior tibial and peroneal veins. Troponin elevated to 1500 on admit, negative delta on 2nd and 3rd troponins. Has been hemodynamically stable on RA at rest since admit. Venous phase CTAP on 07/28 with no gross filling defects in the IVC or iliac veins. Abdominal aorta ultrasound on 07/29 with patent IVC and bilateral iliac veins. ??? Vascular surgery and pulmonology followed. Patient did not need catheter directed lysis (CDL) of PE. Per vascular surgery, will see patient in the office shortly after discharge and potentially bring back in 2 to 3 weeks for possible venogram. Treated with heparin drip initially, transitioned to Eliquis at DVT dosing on 07/29. Patient did not need oxygen on discharge. Discharged on Eliquis, will complete 7 days of Eliquis 10 mg twice daily 07/05 then transition to 5 mg twice daily going forward. Will need at least 3 months of anticoagulation therapy. PT/OT/CM followed, no therapy needs on discharge. 2. Recent left ankle/knee fracture - Follows outpatient w/ Dr. Mary w/ Orthopedics. Occurred after mechanical fall on 05/31/23. Has been nonweightbearing since then, has large leg brace in place. Continue to wear brace during day, okay to remove at night. No ortho needs while inpatient, has next OP follow up visit on 08/20. Chronic medical conditions: - COPD: Stable. Not on home O2. Continue home inhalers. - HTN: Continue home lopressor. - RA: Stable. Continue home meds. - Chronic anemia: At baseline of -12, stable. - Obesity: BMI 32 on admit. Complicated hospital course, care and prognosis. - H/o TIA: Continue home aspirin. - Former tobacco use: Continued cessation encouraged. - GERD: Continue home PPI. Total clinical time spent by myself addressing the patient's medical iss (more content not included)...[facility]04-17-2024 Progress note Author Dmitry Griggs [facility] July 30, 2023 4:10pm Note Date/Time July 30, 2023 2:4 5pm [facility] Medical Records Department [address] [place] [address] Progress Note - Hospitalist 07/30/23 1444 MR#: [id number] Acct: [id number] Name: KIKO GODFREY Rep #:[id number] : 1950 73 From: Dmitry Gordon arnoldo DO PCP: Dr. Eric Lozano MD Status:ADM IN Location: [place] [address] Reason for Visit Reason for Visit: Diagnoses Other pulmonary embolism without acute cor pulmonale (07/28/23) Acute embolism and thrombosis of unspecified deep veins of left lower extremity (07/28/23) Subjective Subjective No acute events overnight. Patient seen at bedside this morning, family member present. Sitting up fairly comfortably in bed, conversing normally, in no acutedistress. Appears similar to previous days. Patient had the abdominal aorta ultrasound study done this morning prior to our encounter, tolerated this without issue. However, patient did have episode of nausea with vomiting when trying to eat breakfast this morning. She denied feeling nauseous currently. Denies any recent nausea or vomiting prior to that episode. She otherwise feelssimilar today to previous days. Has not gotten out of bed yet with therapy today. No other acute concerns. Objective Data Objective Data Vital Signs: Vital Signs Temp Pulse Resp BP Pulse Ox O2 Del Method O2 Flow Rate 98.5 F 84 18 143/64 H 98 Room Air 0 07/30/23 07:57 07/30/23 09:16 07/30/23 07:57 07/30/23 09:16 07/30/23 07:57 07/30/23 07:57 07/29/23 15:20 Oxygen Flow Rate (L/min) [ 0 AMBULATING on Room Air] Oxygen Flow Rate (L/min) [At 0 REST on Room Air] Oxygen Delivery Method Room Air Weight: 94.9 kg Body Mass Index (BMI) 31.8 Intake & Output: Intake and Output for Last 24 Hours 07/28/23 07/29/23 07/30/23 23:59 23:59 23:59 Intake Total 1916.70 / 1916.70 2048.54 / 2048.54 112.30 / 112.30 Output Total 100 / 100 0 / 0 Balance 1916.70 / 1916.70 1948.54 / 194.54 112.30 / 112.30 Lab / Micro Data 07/29/23 05:40 07/29/23 05:40 Labs: Laboratory Results - last 24 hr 07/29/23 20:28: APTT 38.4 H 07/30/23 04:42: APTT 107.1 H* 07/30/23 13:12: APTT 51.6 H Radiography Diagnostic Testing: Radiology Impression Venous Doppler Study 07/29/23 07:53 Interpretation Summary Acute deep vein thrombosis is noted in the left femoral vein, popliteal vein, gastrocnemius vein, tibioperoneal trunk vein, posterior tibial vein, peroneal vein. Deep veins of the right lower extremity are patent and compressible segmentally.There is no evidence of right lower extremity deep vein thrombosis. The bilateral great saphenous veins appear patent and compressible segmentally. Ordering Physician: Dmitry Griggs Referring Physician: Eric Lozano MD Performed By: Garrick Lobo RVT Abdomen/Pelvis CT 07/29/23 17:09 IMPRESSION: No acute findings in the abdomen or pelvis. Cholelithiasis. No gross filling defects in the IVC or iliac veins, overall suboptimal enhancement. Electronically Signed: Morgan Ya MD at 19:27 EDT , Aorta Iliac Vascular Ultrasound 07/29/23 17:09 Interpretation Summary Patent inferior vena cava and bilateral iliac veins with no evidence of thrombus. Ordering Physician: Glenna Dave Referring Physician: Eric Lozano MD Performed By: Garrick Lobo RVT and Student Physical Exam Const alert, oriented x3 and no apparent distress Constitutional Narrative: Pleasant, obese, sitting up comfortably in bed, no acute distress. General Appearance: cooperative and comfortable HEENT normocephalic, head/scalp atraumatic, hearing grossly normal bilaterally, nasal mucous membranes and turbinates normal and moist oral mucous membranes Eyes PERRL, EOMs intact bilaterally and conjunctivae normal Neck full ROM Chest inspection of chest normal Resp normal respiratory effort, normal air movement, no use of accessory muscles and clear to auscultation bilaterally Cardio regular rate, regular rhythm, no murmurs and peripheral pulses 2+ throughout GI normal to inspection, nondistended, normoactive bowel sounds, soft to palpation,non-tender and non-distended Back/Spine normal ROM Extremity Extremity Narrative: Large left leg brace in place. No overt left leg abnormalities on gross visual exam, no significant swelling or erythema noted. Skin no rashes or lesions noted Neuro no focal motor deficits and no sensory deficits noted Speech: speech normal Psych mental status grossly normal Assessment & Plan Assessment/Plan (1) Acute deep vein thrombosis (DVT) of left lower extremity: (2) Bilateral pulmonary embolism: PLAN: Plan Patient is a 73 year old female who presented to [facility] on 07/28/2023 with shortness of breath on exertion. 1. Bilateral PE, intermediate risk; large acute LLE DVT Presented w/ worse IVORY. PE/DVT presumed secondary to immobility after recent ankle fracture as noted below. CTA chest diffuse b/l emboli w/ thrombus in distal portion of both right and left main pulmonary arteries. TTE 07/28 showed EF 55%, moderately dilated RV, mild global RV systolic dysfunction, PASP 44 mmHg. LE duplex US showed acute DVT from left femoral vein all the way down to posterior tibial and peroneal veins. Troponin elevated to 1500 on admit, negative delta on 2nd and 3rd troponins. Has been hemodynamically stable on RA at rest since admit. Venous phase CTAP on 07/28 with no gross filling defects inthe IVC or iliac veins. Abdominal aorta ultrasound on 07/29 with patent IVC and bilateral iliac veins. ? Vascular surgery and pulmonology following. Patient will not need catheter directed lysis (CDL) of PE. Per vascular surgery, will see patient in the office shortly after discharge and potentially bring back in 2 to 3 weeks for possible venogram. Will transition to [facility] on evening of 07/29. Plan for O2 ambulatory test tomorrow morning to see if patient will need supplemental oxygenon discharge. Hopeful for discharge home tomorrow. PT/OT/CM following, likely no therapy needs on discharge. 2. Recent left ankle/knee fracture - Follows outpatient w/ Dr. Mary w/ Orthopedics. Occurred after mechanical fall on 05/31/23. Has been nonweightbearing since then, has large leg brace in place. Continue to wear brace during day, okay to remove at night. No ortho needs while inpatient, has next OP follow up visit on 08/20. Chronic medical conditions: - COPD: Stable. Not on home O2. Continue home inhalers. - HTN: Continue home lopressor. - RA: Stable. Continue home meds. - Chronic anemia: At baseline of 11-12, stable. - Obesity: BMI 32 on admit. Complicates hospital course, care and prognosis. - H/o TIA: Continue home aspirin. - Former tobacco use: Continued cessation encouraged. - GERD: Continue home PPI. DVT ppx: Eliquis Code status: Full code, verified Expected disposition: Home, 1 to 2 days Total clinical time spent by myself addressing the patient's medical issues, reviewing all the data, and collaborating with patient's care team: 35 minutes. Charges/Coding Visit Charges Inpatient E&M: 21275 Subs Hosp L2 07/30/23 1610 <Electronically signed by Dmitry Griggs DO> Cosigner Signature (if applicable): CC: ~ Signed [facility] Work Phone: [phone]) 128-939404-17-2024 Consult note Author Amanuel Wheeler [facility] July 30, 2023 10:48am Note Date/Time July 30, 2023 8:1 4am [facility] Medical Records Department [address] [place], [place] [address] [address] Consultation - Program Management Intern 07/30/23811 MR#: [id number] Acct: [id number] Name: KIKO GODFREY Rep #:[id number] : 1950 73 From: Amanuel Wheeler DO PCP: Dr. Eric Lozano MD Status:ADM IN Location: [place] [address] Assessment & Plan Assessment/Plan (1) Bilateral pulmonary embolism: (2) Acute deep vein thrombosis (DVT) of left lower extremity: PLAN: Plan RECOMMENDATIONS: 1. Continue heparin infusion, with plans to transition to oral anticoagulation regimen when feasible. 2. Ambulate patient as tolerated. IMPRESSIONS: 1. Bilateral pulmonary emboli Most likely provoked by recent immobility in the setting of ankle fracture. Shehas remained clinically stable on a heparin infusion. The patient is not hypoxemic, nor is she endorsing any significant dyspnea. At this time, I do notsee an overt indication to proceed with pulmonary thrombectomy, given the patient's clinical stability. 2. Recent left ankle/knee fracture Continue outpatient orthopedic follow-up as scheduled. The patient will need toremain anticoagulated while she remains immobilized, for at least a period of 3 months. 3. History of COPD/rheumatoid arthritis/anemia/tobacco dependency, in remission/obesity Complicates care, management, recovery and prognosis. Continue home medicationsas indicated. This note was generated with Spectafy dictation software. It may contain incorrectwords, spelling, and punctuation that were not noted in checking the note beforesigning. HPI Consult Data Date of Consult: 07/30/23 HPI Narrative Reason for Consultation: Pulmonary emboli HPI Narrative: The patient is a 73-year-old female, with a history as outlined below, who presented to the emergency department on July 27 with shortness of breath. Thepatient has an apparent history of rheumatoid arthritis, COPD, anxiety and depression. The patient had no prior history of VTE. The patient did sustain arecent left lower extremity ankle and knee fracture resulting in immobilization. On presentation to the emergency department, the patient was noted to be afebrile and hemodynamically stable. She was mildly tachycardic tachypneic, butotherwise maintaining appropriate oxygen saturations on room air. The patient did have an elevated troponin at 1595 with a BNP of 662. CTA chest demonstratedbilateral pulmonary emboli. Subsequent lower extremity Doppler study demonstrated left- sided DVT. The patient surface echocardiogram demonstrated normal LV size and function with an ejection fraction of 55% and stage I diastolic dysfunction. The RV was moderately dilated with mild global RV systolic dysfunction and pulmonary artery systolic pressure of 44 mmHg. The patient was admitted to the hospital and placed on a heparin infusion. She was subsequently evaluated by vascular surgery for possible lower extremity thrombectomy. At the present time, the patient does not endorse any significantshortness of breath. She is not hypoxemic and is maintaining appropriate oxygensaturations on room air. [facility] Medical History (Updated 07/29/23 @ 17:42 by TATIANA Saab) Anxiety and depression COPD (chronic obstructive pulmonary disease) Former smoker GERD (gastroesophageal reflux disease) Iron deficiency anemia Obesity (BMI 30-39.9) Paroxysmal supraventricular tachycardia Pulmonary embolism Rheumatoid arthritis Schizophrenia Transient ischemic attack Home Medications hydroxychloroquine 200 mg tablet 200 mg PO BIDCM 09/18/13 [History Last Taken 09/17/13 20:00] pantoprazole 40 mg tablet,delayed release 40 mg PO DAILY 02/26/19 [History Last Taken 07/28/23] famotidine 20 mg tablet 20 mg PO BID 11/08/21 [History Last Taken 07/28/23] blood pressure monitor #1 ea 11/08/22 [Rx Last Taken Unknown] leucovorin calcium 15 mg tablet 15 mg PO QWEEK counteract the methotrexate 11/08/22 [History Last Taken 07/24/23] prednisone 2.5 mg tablet 2.5 mg PO DAILY 11/08/22 [History Last Taken 07/28/23] metoprolol tartrate 50 mg tablet See Rx Instructions .Route .COMPLEX #180 tabs 04/09/23 [Rx Last Taken 07/28/23] methotrexate sodium 25 mg/mL injection solution 18.75 mg subcut QWEEK arthritis 07/28/23 [History Last Taken 07/23/23] sulfasalazine 500 mg tablet,delayed release 1,000 mg PO BID 07/28/23 [History Last Taken 07/28/23] tramadol 50 mg tablet 50 - 100 mg PO Q6H PRN PRN pain 07/28/23 [History Last Taken Unknown] Allergy/AdvReac Type Severity Reaction Status Date / Time doxycycline AdvReac PT UNSURE Verified 07/28/23 11:36 OF REACTION Family History Mother Breast cancer Family History other Surgical History H/O tubal ligation History of breast lump removal History of foot surgery History of knee surgery History of radiofrequency ablation procedure for cardiac arrhythmia (03/2003) Social History (Updated 07/28/23 @ 18:[address] Sophia Wang MD) household members: none Smoking Status: Former smoker how long ago did patient quit smoking: Quit 15 yrs prior, smoked 2 ppd since 22yrs old until quit. alcohol intake: never substance use type: does not use ROS ROS Narrative 10 systems were reviewed with pertinent positives as noted in the HPI above. Physical Exam Const alert and no apparent distress Constitutional Narrative: Obese. Resting comfortably in bed. General Appearance: cooperative HEENT normocephalic, head/scalp atraumatic and moist oral mucous membranes Eyes PERRL and EOMs intact bilaterally Neck supple General: trachea midline Chest inspection of chest normal Resp normal respiratory effort Auscultation: Negative for rales, rhonchi or wheezes Cardio regular rate and regular rhythm GI normal to inspection, nondistended, normoactive bowel sounds Extremity Extremity Narrative: Left lower extremity immobilizer brace in place General Extremity: Negative for clubbing Neuro CN's II-XII intact bilaterally, moves all extremities and no focal motor deficits Psych cooperative and affect normal Lab / Micro Data 07/29/23 05:40 07/29/23 05:40 Labs: Laboratory Results - last 24 hr 07/29/23 13:36: APTT 53.6 H 07/29/23 20:28: APTT 38.4 H 07/30/23 04:42: APTT 107.1 H* Imaging Radiology Impression Echocardiogram 07/28/23 15:25 Interpretation Summary Normal LV size. Left ventricular systolic function is normal. D shaped septum in systole and diastole. The left ventricular ejection fraction is 55 %. Moderately dilated right ventricle. Stage 1 diastolic dysfunction. Pulmonary artery systolic pressure is 44 mmHg. Contrast injection was performed. Ordering Physician: Sophia Wang Referring Physician: Eric Lozano MD Performed By: Deon Rea RCS Venous Doppler Study 07/29/23 07:53 Interpretation Summary Acute deep vein thrombosis is noted in the left femoral vein, popliteal vein, gastrocnemius vein, tibioperoneal trunk vein, posterior tibial vein, peroneal vein. Deep veins of the right lower extremity are patent and compressible segmentally.There is no evidence of right lower extremity deep vein thrombosis. The bilateral great saphenous veins appear patent and compressible segmentally. Ordering Physician: Dmitry Griggs Referring Physician: Eric Lozano MD Performed By: Yamil, Garrick, RVT Abdomen/Pelvis CT 07/29/23 17:09 IMPRESSION: No acute findings in the abdomen or pelvis. Cholelithiasis. No gross filling defects in the IVC or iliac veins, overall suboptimal enhancement. Electronically Signed: Morgan Ya MD at 19:27 EDT Reading Location ID and State: [facility] / [place] Tel , Service support , Charges/Coding Visit Charges Inpatient E&M: 45493 Init Hosp L3 07/30/23 1048 <Electronically signed by Amanuel Wheeler DO> Cosigner Signature (if applicable): CC: Dr. Eric Lozano MD~ Signed [facility] Work Phone: [phone]) 579-960504-17-2024 Consult note Author Eric Olmos [facility] July 30, 2023 7:37am Note Date/Time July 29, 2023 5:2 3pm [facility] Medical Records Department [address] [place] [id number] Consultation - Surgical 07/29/23 1715 MR#: [id number] Acct: [id number] Name: KIKO GODFREY Rep #:[id number] : 1950 73 From: Glenna SIMPSON PCP: Dr. 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 With pulsatile flow in the L CFV, have concern for more proximal thrombus. Will obtain venous phase CT A/P and IVC duplex to evaluate. Pending these results, she may be a candidate for lower extremity venogram with thrombectomy which would be coordinated on an outpatient basis. She will have to be NPO prior to IVC duplex. HPI Consult Data Date of Consult: 07/29/23 HPI Narrative HPI Narrative: KIKO GODFREY, is a 73 F who presents with bilateral PE and extensive LLE DVT. Yesterday, she became very SOB and felt some chest pressure which led her to present to the ER. She reports she had not noticed any significant increased swelling or pain in her LLE. Initial troponin was 1595, repeat 1170. BNP was 662.9. She was 95% on RA in the ER. Her pulse was 113. CTA revealed bilateral PE. She was initiated on heparin and admitted for further management. Echo todayshowed moderately dilated RV and pulmonary systolic pressure 44mmHg. Venous duplex today showed DVT up to the level of the femoral vein and pulsatile flow noted in the CFV. She did have a slip and fall which led to a L knee and ankle fracture in May. She has been in an immobilizer and NWB since then. She has at least 3 more weeks of NWB. She reports today she is feeling better than yesterday with less chest discomfort and no SOB at rest. She does still feel SOB with talking at length and with activity though it is a bit better than yesterday. As she is NWB, she has been sitting on her rollator and pushing herself with her R leg to get around. [facility] Medical History (Updated 07/29/23 @ 17:42 by TATIANA Saab) Anxiety and depression COPD (chronic obstructive pulmonary disease) Former smoker GERD (gastroesophageal reflux disease) Iron deficiency anemia Obesity (BMI 30-39.9) Paroxysmal supraventricular tachycardia Pulmonary embolism Rheumatoid arthritis Schizophrenia Transient ischemic attack Home Medications hydroxychloroquine 200 mg tablet 200 mg PO BIDCM 09/18/13 [History Last Taken 09/17/13 20:00] pantoprazole 40 mg tablet,delayed release 40 mg PO DAILY 02/26/19 [History Last Taken 07/28/23] famotidine 20 mg tablet 20 mg PO BID 11/08/21 [History Last Taken 07/28/23] blood pressure monitor #1 ea 11/08/22 [Rx Last Taken Unknown] leucovorin calcium 15 mg tablet 15 mg PO QWEEK counteract the methotrexate 11/08/22 [History Last Taken 07/24/23] prednisone 2.5 mg tablet 2.5 mg PO DAILY 11/08/22 [History Last Taken 07/28/23] metoprolol tartrate 50 mg tablet See Rx Instructions .Route .COMPLEX #180 tabs 04/09/23 [Rx Last Taken 07/28/23] methotrexate sodium 25 mg/mL injection solution 18.75 mg subcut QWEEK arthritis 07/28/23 [History Last Taken 07/23/23] sulfasalazine 500 mg tablet,delayed release 1,000 mg PO BID 07/28/23 [History Last Taken 07/28/23] tramadol 50 mg tablet 50 - 100 mg PO Q6H PRN PRN pain 07/28/23 [History Last Taken Unknown] Allergy/AdvReac Type Severity Reaction Status Date / Time doxycycline AdvReac PT UNSURE Verified 07/28/23 11:36 OF REACTION Family History Mother Breast cancer Family History other Surgical History H/O tubal ligation History of breast lump removal History of foot surgery History of knee surgery History of radiofrequency ablation procedure for cardiac arrhythmia (03/2003) Social History (Updated 07/28/23 @ 18:[address] Sophia Wang MD) household members: none Smoking Status: Former smoker how long ago did patient quit smoking: Quit 15 yrs prior, smoked 2 ppd since 22yrs old until quit. alcohol intake: never substance use type: does not use Physical Exam Const alert and oriented x3 General Appearance: cooperative HEENT normocephalic and head/scalp atraumatic Eyes EOMs intact bilaterally General Eye: normal appearance of both eyes Neck General: normal visual inspection Resp no retractions and clear to auscultation bilaterally Resp Narrative: mild shortness of breath noted with conversation Cardio Rate: regular rate Rhythm: regular rhythm Extremity Extremity Narrative: LLE with immobilizer in place, mild edema. No erythema, warmth, excessive tenderness. Neuro CN's II-XII intact bilaterally Speech: speech normal Psych mental status grossly normal Appearance: grossly normal Attitude: calm and engaged Activity / Motor Behavior: appropriate eye contact Speech: normal speech Mood & Affect: euthymic mood Lab / Micro Data 07/29/23 05:40 07/29/23 05:40 Labs: Laboratory Results - last 24 hr 07/28/23 18:17: Troponin I High Sens 1170 H* 07/28/23 20:13: APTT 174.0 H* 07/29/23 05:40: WBC 9.2, RBC 4.19 L, Hgb 11.3 L, Hct 37.6, MCV 89.7, MCH 27.0, MCHC 30.1 L, RDW Std Deviation 48.6 H, RDW Coeff of Samson 15.0 H, Plt Count 183, MPV 11.0, Immature Gran % (Auto) 0.800, Neut % (Auto) 74.8 H, Lymph % (Auto) 14.5 L, [place] % (Auto) 9.3, Eos % (Auto) 0.2, Baso % (Auto) 0.4, Absolute Neuts (auto) 6.9, Absolute Lymphs (auto) 1.34, Nucleated RBC % 0, APTT 48.7 H, Sodium 136, Potassium 3.6, Chloride 105, Carbon Dioxide 23.0, Anion Gap 8, BUN 13, Creatinine 0.90, Estim Creat Clear Calc 70.00, Est GFR (MDRD) Af Amer 80, Est GFR (MDRD) Non-Af 66, BUN/Creatinine Ratio 14.5, Glucose 106, Calcium 8.8, TotalBilirubin 0.40, AST 19, ALT 10 L, Alkaline Phosphatase 55, Total Protein 7.1, Albumin 2.8 L, Globulin 4.3 H, Albumin/Globulin Ratio 0.7 L, Triglycerides 94, Cholesterol 161, LDL Cholesterol 85, VLDL Cholesterol 19, HDL Cholesterol 57 07/29/23 13:36: APTT 53.6 H Imaging Radiology Impression Echocardiogram 07/28/23 15:25 Interpretation Summary Normal LV size. Left ventricular systolic function is normal. D shaped septum in systole and diastole. The left ventricular ejection fraction is 55 %. Moderately dilated right ventricle. Stage 1 diastolic dysfunction. Pulmonary artery systolic pressure is 44 mmHg. Contrast injection was performed. Ordering Physician: Sophia Wang Referring Physician: Eric Lozano MD Performed By: Deon Rea RCS Venous Doppler Study 07/29/23 07:53 Interpretation Summary Acute deep vein thrombosis is noted in the left femoral vein, popliteal vein, gastrocnemius vein, tibioperoneal trunk vein, posterior tibial vein, peroneal vein. Deep veins of the right lower extremity are patent and compressible segmentally.There is no evidence of right lower extremity deep vein thrombosis. The bilateral great saphenous veins appear patent and compressible segmentally. Ordering Physician: Dmitry Griggs Referring Physician: Eric Lozano MD Performed By: Garrick Lobo, T 07/29/23 1750 <Electronically signed by Glenna SIMPSON> Cosigner Signature (if applicable): 07/30/23 0737 <Electronically signed by Eric Olmos MD> CC: Dr. Eric Lozano MD~ Signed [facility] Work Phone: [phone]) 964-594804-17-2024 Progress note Author Dmitry [facility] July 29, 2023 11:21pm Note Date/Time July 29, 2023 3:5 6pm [facility] Medical Records Department [address] [place] [id number] Progress Note - Hospitalist 07/29/23 1556 MR#: [id number] Acct: [id number] Name: KIKO GODFREY Rep #:[id number] : 1950 73 From: Dmitry virk DO PCP: Dr. Eric Lozano MD Status:ADM IN Location: [place] [address] 1 Reason for Visit Reason for Visit: Diagnoses Other pulmonary embolism without acute cor pulmonale (07/28/23) Subjective Subjective Patient was admitted yesterday afternoon for bilateral PE suspected secondary toDVT from immobility after recent left ankle fracture. No acute events overnight. Seen at bedside this morning. She was sitting up comfortably in bed, conversing normally, in no acute distress. Breathing comfortably on room air at rest. Has large left leg brace in place. States that she has had the brace in place now for about 8 weeks, has had fairly minimal activity over that time frame. She had not gotten out of bed to work with therapy yet when I saw her this morning. She denied any chest pain or SOB at rest. Denied any fevers/chills. No other acute concerns. Saw patient this afternoon after TTE and LE duplex US results had returned. Patient unfortunately has a significant left leg clot burden from the femoral vein down most of the leg. She also has a moderately dilated RV, though EF is normal. She did some activity w/ therapy early this afternoon and did have SOB w/ exertion. She denies any left leg pain at rest. Was going to be seen by vascular surgery later this afternoon for further recs and she was in agreement with this. Objective Data Objective Data Vital Signs: Vital Signs Temp Pulse Resp BP Pulse Ox O2 Del Method O2 Flow Rate 97.9 F 73 16 113/73 95 Room Air 0 07/29/23 15:16 07/29/23 15:16 07/29/23 15:16 07/29/23 15:16 07/29/23 15:20 07/29/23 15:16 07/29/23 15:20 Oxygen Flow Rate (L/min) [ 0 AMBULATING on Room Air] Oxygen Flow Rate (L/min) [At 0 REST on Room Air] Oxygen Delivery Method Room Air Weight: 97.5 kg Body Mass Index (BMI) 32.6 Intake & Output: Intake and Output for Last 24 Hours 07/27/23 07/28/23 07/29/23 23:59 23:59 23:59 Intake Total 1916.70 / 1917.70 393.67 / 393.67 Balance 1916.70 / 1916.70 393.67 / 393.67 Lab / Micro Data 07/29/23 05:40 07/29/23 05:40 Labs: Laboratory Results - last 24 hr 07/28/23 12:10: B-Natriuretic Peptide 662.9 H 07/28/23 16:01: Troponin I High Sens 1480 H* 07/28/23 18:17: Troponin I High Sens 1170 H* 07/28/23 20:13: APTT 174.0 H* 07/29/23 05:40: WBC 9.2, RBC 4.19 L, Hgb 11.3 L, Hct 37.6, MCV 89.7, MCH 27.0, MCHC 30.1 L, RDW Std Deviation 48.6 H, RDW Coeff of Samson 15.0 H, Plt Count 183, MPV 11.0, Immature Gran % (Auto) 0.800, Neut % (Auto) 74.8 H, Lymph % (Auto) 14.5 L, [place] % (Auto) 9.3, Eos % (Auto) 0.2, Baso % (Auto) 0.4, Absolute Neuts (auto) 6.9, Absolute Lymphs (auto) 1.34, Nucleated RBC % 0, APTT 48.7 H, Sodium 136, Potassium 3.6, Chloride 105, Carbon Dioxide 23.0, Anion Gap 8, BUN 13, Creatinine 0.90, Estim Creat Clear Calc 70.00, Est GFR (MDRD) Af Amer 80, Est GFR (MDRD) Non-Af 66, BUN/Creatinine Ratio 14.5, Glucose 106, Calcium 8.8, TotalBilirubin 0.40, AST 19, ALT 10 L, Alkaline Phosphatase 55, Total Protein 7.1, Albumin 2.8 L, Globulin 4.3 H, Albumin/Globulin Ratio 0.7 L, Triglycerides 94, Cholesterol 161, LDL Cholesterol 85, VLDL Cholesterol 19, HDL Cholesterol 57 07/29/23 13:36: APTT 53.6 H Radiography Diagnostic Testing: Radiology Impression Echocardiogram 07/28/23 15:25 Interpretation Summary Normal LV size. Left ventricular systolic function is normal. D shaped septum in systole and diastole. The left ventricular ejection fraction is 55 %. Moderately dilated right ventricle. Stage 1 diastolic dysfunction. Pulmonary artery systolic pressure is 44 mmHg. Contrast injection was performed. Ordering Physician: Sophia Wang Referring Physician: Eric Lozano MD Performed By: Deon Rea RCS Venous Doppler Study 07/29/23 07:53 Interpretation Summary Acute deep vein thrombosis is noted in the left femoral vein, popliteal vein, gastrocnemius vein, tibioperoneal trunk vein, posterior tibial vein, peroneal vein. Deep veins of the right lower extremity are patent and compressible segmentally.There is no evidence of right lower extremity deep vein thrombosis. The bilateral great saphenous veins appear patent and compressible segmentally. Ordering Physician: Dmitry Griggs Referring Physician: Eric Lozano MD Performed By: Garrick Lobo T Physical Exam Const alert, oriented x3 and no apparent distress Constitutional Narrative: Pleasant, obese, sitting up comfortably in bed, no acute distress. General Appearance: cooperative and comfortable HEENT normocephalic, head/scalp atraumatic, hearing grossly normal bilaterally, nasal mucous membranes and turbinates normal and moist oral mucous membranes Eyes PERRL, EOMs intact bilaterally and conjunctivae normal Neck full ROM Chest inspection of chest normal Resp normal respiratory effort, normal air movement, no use of accessory muscles and clear to auscultation bilaterally Cardio regular rate, regular rhythm, no murmurs and peripheral pulses 2+ throughout GI normal to inspection, nondistended, normoactive bowel sounds, soft to palpation,non-tender and non-distended Back/Spine normal ROM Extremity Extremity Narrative: Large left leg brace in place. No overt left leg abnormalities on gross visual exam, no significant swelling or erythema noted. Skin no rashes or lesions noted Neuro no focal motor deficits and no sensory deficits noted Speech: speech normal Psych mental status grossly normal Assessment & Plan Assessment/Plan (1) Acute deep vein thrombosis (DVT) of left lower extremity: (2) Bilateral pulmonary embolism: PLAN: Plan Patient is a 73 year old female who presented to [facility] on 07/28/2023 with shortness of breath on exertion. 1. Bilateral PE, intermediate risk; large acute LLE DVT Presented w/ worse IVORY. PE/DVT presumed secondary to immobility after recent ankle fracture as noted below. CTA chest diffuse b/l emboli w/ thrombus in distal portion of both right and left main pulmonary arteries. TTE 07/28 showed EF 55%, moderately dilated RV, mild global RV systolic dysfunction, PASP 44 mmHg. LE duplex US showed acute DVT from left femoral vein all the way down to posterior tibial and peroneal veins. Troponin elevated to 1500 on admit, negative delta on 2nd and 3rd troponins. Has been hemodynamically stable on RA at rest since admit. - Vascular surgery following. Cardiology and pulmonology also aware of patient case. Venous phase CTAP and IVC duplex ordered to evalaute if patient may be a candidate for catheter directed lysis (CDL) of PE while inpatient and for LE venogram w/ thrombectomy for DVT which would happen in outpatient setting. Appreciate further recs. Continue heparin drip for now. PT/OT/CM following. 2. Recent left ankle/knee fracture - Follows outpatient w/ Dr. Mary w/ Orthopedics. Occurred after mechanical fall on 05/31/23. Has been nonweightbearing since then, has large leg brace in place. Continue to wear brace during day, okay to remove at night. No ortho needs while inpatient, has next OP follow up visit on 08/20. Chronic medical conditions: - COPD: Stable. Not on home O2. Continue home inhalers. - HTN: Continue home lopressor. - RA: Stable. Continue home meds. - Chronic anemia: At baseline of 11-12, stable. - Obesity: BMI 32 on admit. Complicates hospital course, care and prognosis. - H/o TIA: Continue home aspirin. - Former tobacco use: Continued cessation encouraged. - GERD: Continue home PPI. DVT ppx: Heparin drip Code status: Full code, verified Expected disposition: TBD Total clinical time spent by myself addressing the patient's medical issues, reviewing all the data, and collaborating with patient's care team: 35 minutes. Charges/Coding Visit Charges Inpatient E&M: 36021 Subs Hosp L2 07/29/23 9061 <Electronically signed by Dmitry Mosteller DO> Cosigner Signature (if applicable): CC: ~ Signed [facility] Work Phone: 1(524) 294-967104-15-2024 History and physical note Author Sophia Wang [facility] July 28, 2023 6:19pm Note Date/Time July 28, 2023 1:4 3pm [facility] Medical Records Department [address] [place] [address] H&P Exam - Hospitalist 07/28/23 1343 MR#: [id number] Acct: [id number] Name: KIKO GODFREY Rep #:[id number] : 1950 73 From: Sophia Wang MD PCP: Dr. Eric Lozano MD Status:ADM IN Location: [address] 1 HPI - General General Date of Admission: 07/28/23 Date of Service: 07/28/23 Chief Complaint: Dyspnea, chest tightness. HPI Narrative The patient is a 73 y/o F w/ PMHx: Chart reported Hx Schizophrenia/Anxiety and Depression, Rheumatoid arthritis, HTN, COPD, GERD, Chronic anemia/Fe deficiency anemia, Hx TIA, Obesity, PSVT s/p RFA, Former tobacco use who presents to the [facility] ED on 07/28/23 with history of dyspnea, worse with exertion with associated cough and mild diaphoresis improved if she is resting and laying especially witha fan blowing on her which been worsening over the last 48 hours noted to be constant with also concurrent mild chest tightness primarily over the substernalarea with nausea and occasional emesis however she does report recent left lowerextremity ankle and knee fracture with no specific surgery but she has been immobilized prompting eventual ED evaluation. Workup in the ED included T96.8, heart rate 113, BP 107/96, respiratory rate 24, 97% on room air, CBC with WBC 9.6, human 12.3, platelets 185 without marked shift, BMP with BUN/creatinine 13/1.03, GFR 56, glucose 140, initial troponin 1595, CTPA with diffuse bilateralemboli with thrombus in the distal portion of both the right and left main pulmonary arteries, stable 5.1 mm well-defined nodule in the lateral right lung apex, gallstone present, EKG with sinus rhythm with no acute evidence of ischemia. In the ED patient ministered full-strength aspirin therapy 324 mg p.o. x 1 and normal saline at 1000 mL x 1 and started on heparin drip. [facility] Medical History (Updated 07/28/23 @ 18:[address] Sophia Wang MD) Anxiety and depression COPD (chronic obstructive pulmonary disease) Former smoker GERD (gastroesophageal reflux disease) Iron deficiency anemia Obesity (BMI 30-39.9) Paroxysmal supraventricular tachycardia Pulmonary embolism Rheumatoid arthritis Schizophrenia Transient ischemic attack Home Medications hydroxychloroquine 200 mg tablet 200 mg PO BIDCM 09/18/13 [History Last Taken 09/17/13 20:00] pantoprazole 40 mg tablet,delayed release 40 mg PO DAILY 02/26/19 [History Last Taken 07/28/23] famotidine 20 mg tablet 20 mg PO BID 11/08/21 [History Last Taken 07/28/23] blood pressure monitor #1 ea 11/08/22 [Rx Last Taken Unknown] leucovorin calcium 15 mg tablet 15 mg PO QWEEK counteract the methotrexate 11/08/22 [History Last Taken 07/24/23] prednisone 2.5 mg tablet 2.5 mg PO DAILY 11/08/22 [History Last Taken 07/28/23] metoprolol tartrate 50 mg tablet See Rx Instructions .Route .COMPLEX #180 tabs 04/09/23 [Rx Last Taken 07/28/23] methotrexate sodium 25 mg/mL injection solution 18.75 mg subcut QWEEK arthritis 07/28/23 [History Last Taken 07/23/23] sulfasalazine 500 mg tablet,delayed release 1,000 mg PO BID 07/28/23 [History Last Taken 07/28/23] tramadol 50 mg tablet 50 - 100 mg PO Q6H PRN PRN pain 07/28/23 [History Last Taken Unknown] Allergy/AdvReac Type Severity Reaction Status Date / Time doxycycline AdvReac PT UNSURE Verified 07/28/23 11:36 OF REACTION Family History Mother Breast cancer other (Patient does not know her paternal family history nor her father.) Surgical History H/O tubal ligation History of breast lump removal History of foot surgery History of knee surgery History of radiofrequency ablation procedure for cardiac arrhythmia (03/2003) Social History (Updated 07/28/23 @ 18:[address] Sophia Wang MD) household members: none Smoking Status: Former smoker how long ago did patient quit smoking: Quit 15 yrs prior, smoked 2 ppd since 22yrs old until quit. alcohol intake: never substance use type: does not use ROS ROS Narrative Admission Review of Systems: CONSTITUTIONAL: No weight loss, fever, chills, + weakness or fatigue. HEENT: Eyes: No visual loss, blurred vision, double vision or yellow sclerae. Ears, Nose, Throat: No hearing loss, sneezing, congestion, runny nose or sore throat. SKIN: No rash or itching, lesions, wounds. CARDIOVASCULAR: + Chest tightness, discomfort primarily pleuritic worse with deep inspiratory effort. No palpitations, edema, orthopnea, syncopal events. RESPIRATORY: + Dyspnea with occasional cough not markedly productive. No wheezing, hemoptysis. GASTROINTESTINAL: + anorexia, nausea, vomiting. No diarrhea, abdominal pain, melena, BRBPR. GENITOURINARY: No dysuria, frequency, urgency or retention. NEUROLOGICAL: No headache, dizziness, syncope, paralysis, ataxia, numbness or tingling in the extremities, focal weakness, change in bowel or bladder control,seizure. MUSCULOSKELETAL: + muscle, back pain, joint pain or stiffness. HEMATOLOGIC: No anemia, bleeding or bruising. LYMPHATICS: No enlarged nodes. No history of splenectomy. PSYCHIATRIC: + Chart reported history of schizophrenia/anxiety and depression. ENDOCRINOLOGIC: No reports of sweating, cold or heat intolerance. No polyuria orpolydipsia. ALLERGIES: No history of asthma, hives, eczema or rhinitis. Vital Signs Vital Signs Vital Signs: 07/28/23 11:37 07/28/23 11:55 Temperature 96.8 F L Temperature Source Temporal Pulse Rate 113 H Respiratory Rate 24 H Blood Pressure 107/96 H Blood Pressure Mean 99 Pulse Ox 97 95 Oxygen Delivery Method Room Air Room Air Weight Weight: 226 lb Body Mass Index (BMI) 34.3 Physical Exam Narrative Physical Examination: General: Awake, alert, oriented x 3 and cooperative, seated upright in the ED bed, fatigued otherwise no acute distress. Skin: Normal color, normal turgor, no icterus, no cyanosis. HEENT: AT/NC, EOMI, PERRLA, mildly dry MM, no carotid bruits or JVD noted. Lungs: Mildly diminished, mildly decreased effort with shallow breathing but notsevere no evidence of any distress, no rales, ronchi or wheezing. Heart: Improved, regular rate and rhythm; no gallop, rub audible. Abdomen: Soft, obese, NTTP, ND, normal BS, no HSM. Extremities: No cyanosis, no clubbing, status post left lower extremity ankle aswell as knee fracture and bracing with swelling evident. Neurological: Patient awake, alert, oriented as noted, cognitive function intact; pupils equally reactive to light and accommodation, cranial nerves II-XII grossly normal, moving all 4 extremities except expected limited left lower extremity movement given brace with recent fall with left knee/tibial plateau and ankle fracture, no focal deficits, strength moderately to severely globally decreased. Psychiatric: Affect appears fatigued otherwise normal, no acute evidence of depressive or anxiety feelings. Results Lab / Micro Data 07/28/23 12:10 07/28/23 12:10 Labs: Laboratory Results - last 24 hr 07/28/23 12:10: WBC 9.6, RBC 4.40, Hgb 12.3, Hct 39.0, MCV 88.6, MCH 28.0, MCHC 31.5 L, RDW Std Deviation 47.7 H, RDW Coeff of Samson 14.9 H, Plt Count 185, MPV 10.3, Immature Gran % (Auto) 0.600, Neut % (Auto) 77.4 H, Lymph % (Auto) 13.0 L,[place] % (Auto) 8.3, Eos % (Auto) 0.1, Baso % (Auto) 0.6, Absolute Neuts (auto) 7.4, Absolute Lymphs (auto) 1.24, Nucleated RBC % 0, Sodium 137, Potassium 4.0, Chloride 102, Carbon Dioxide 25.0, Anion Gap 10, BUN 13, Creatinine 1.03 H, Estim Creat Clear Calc 62.75, Est GFR (MDRD) Af Amer 68, Est GFR (MDRD) Non-Af 56 L, BUN/Creatinine Ratio 12.6, Glucose 140 H, Calcium 9.4, Troponin I High Sens 1595 H* Imaging Radiology Impression Chest CTA 07/28/23 11:54 IMPRESSION: Diffuse bilateral emboli with thrombus in the distal portion of both the right and left main pulmonary arteries. Stable 5.1 mm well-defined nodule in the lateral right lung apex. Gallstone Electronically Signed: Craig Lindo MD at 13:15 EDT , Assessment & Plan Assessment/Plan (1) Bilateral pulmonary embolism: PLAN: Plan The patient is a 73 y/o F w/ PMHx: Chart reported Hx Schizophrenia/Anxiety and Depression, Rheumatoid arthritis, HTN, COPD, GERD, Chronic anemia/Fe deficiency anemia, Hx TIA, Obesity, PSVT s/p RFA, Former tobacco use who presents to the [facility] ED on 07/28/23 with history of dyspnea, worse with exertion with associated cough and mild diaphoresis improved if she is resting and laying especially witha fan blowing on her which been worsening over the last 48 hours noted to be constant with also concurrent mild chest tightness primarily over the substernalarea with nausea and occasional emesis however she does report recent left lowerextremity ankle and knee fracture with no specific surgery but she has been immobilized prompting eventual ED evaluation. #1. Dyspnea, chest pain secondary to Acute Bilateral Pulmonary Embolism with Elevated Troponin (suspect secondary to Acute BL PE but notably elevated, demandassociated): EKG without acute findings, CTPA with diffuse bilateral emboli withthrombus in the distal portion of both the right and left main pulmonary arteries, stable 5.1 mm well-defined nodule in the lateral right lung apex, gallstone present, troponin 1595. Recent significant immobilization with left ankle and knee fracture. Will admit to PCU, maintain on cardiac telemetry. Willobtain ECHO and BNP, continue to cycle cardiac enzymes given significant elevation. Will maintain on aspirin therapy, magnesium level requested, FLP in AM. Will continue therapeutic heparin pending troponin series and if further rises low threshold to involve cardiology to be cautious. If enzymes trend downward, may then consider oral NOAC transition if appropriate. #2. Recent mechanical fall with left lower extremity ankle and knee fracture: History of mechanical fall with unfortunately left ankle and left knee fracture,following with Dr. Mary, will continue nonweightbearing status, continue braceexcept at night when sleeping and encourage continued follow-up outpatient as previously arranged noted 08/21/2023. Dr. Mary has been updated about patient current presentation. #3. Chronic COPD: Will maintain on oxygen with wean as tolerated to room air ifneeded, continue ATC budesonide therapy, PRN albuterol, HOB, IS parameters. #4. Hypertension: Continue home regimen including metoprolol, PRN hydralazine. #5. Rheumatoid arthritis: We will continue patient home leucovorin, sulfasalazine, low-dose chronic prednisone as well as hydroxychloroquine home regimen. Patient is also on methotrexate injections. Encourage continued outpatient follow-up with rheumatology as previously arranged. #6. Chronic anemia/iron deficiency anemia: Admission hemoglobin 12.3, MCV 88.6,baseline hemoglobin primarily 10-11, will continue to trend, per current list not on iron supplementation but clarifying. #7. Obesity: Weight loss and lifestyle changes encouraged. #8. History of TIA: Will continue asa, HTN regimen, no on statin, FLP in AM as noted. #9. Former tobacco use: Encourage continued tobacco cessation. #10. GERD: Continue patient on PPI. #11. Chart reported history of schizophrenia/anxiety and depression: Patient isnot on any psychiatric medications and reported no psychiatric history during initial assessments, will need to clarify further but very appropriate during evaluation. #12. DVT prophylaxis: Will continue heparin drip as noted. #13. CODE status: Patient HCPOA and living will not in place but she notes if she cannot make medical decisions her daughter Samantha would be her medical decision-maker. Discussed CODE status at length including difference between FULL code, DNR-CCA and DNR-CC status. Following discussions about the differences in these status, requested Full Code status. Advanced Care Planning [place] Face Time: 16 minutes. Charges/Coding Visit Charges Inpatient E&M: 67598 Init Hosp L3 Procedures Hospitalists Procedures: 50605 Advncd Care Plan 30 Min 07/28/231818 <Electronically signed by Sophia Wang MD> Cosigner Signature (if applicable): CC: Dr. Sophia Wang MD; Dr. Eric Lozano MD~ Signed [facility] Work Phone: 1(256) 272-626804-15-2024 Discharge summary Author Eric West [facility] July 28, 2023 3:51pm Note Date/Time July 28, 2023 11: 59am [facility] Medical Records Department [address] [place] [address] Emergency Department Summary 07/28/23 MR#: [id number] Acct: [id number] Name: KIKO GODFREY Rep #:[id number] : 1950 73 From: Eric Chavez PCP: Dr. Eric Lozano MD Status:ADM IN Location: [address] History of Present Illness Chief Complaint: Shortness of Breath Informant: patient Onset/Context/Timing Onset: Yesterday Context: gradual Timing: Continuous Quality: Positive for Dyspnea on exertion Worsened by: Exertion Relieved by: - (Laying with a fan blowing on her) Associated Symptoms cough and sweats; Negative for rhinorrhea, post nasal drip, ear pain, fever, sore throat, chills, clear sputum, white sputum, yellow sputum or green sputum Chest Pain: Positive for Tightness Narrative Narrative: Patient presents with shortness of breath that has been getting worse since yesterday. Patient states it is gradually getting worse. Patient states it is constant. Patient states it is worse with any exertion. Patient states it is better when she is able to lay with a fan blowing on her. Patient admits to a mild cough. Patient admits to some tightness in her chest. Patient states it is over the substernal area. Patient states she did break out into a sweat. Patient also admits to some nausea and vomiting. Patient recently had a fracture of her left ankle. Patient did not have surgery for this but has been immobilized from this. PE Risk Factors: Positive for Recent immobilization; Negative for Cancer, Prior DVT or PE, Recent surgery or Recent travel [facility] Medical History Cholelithiasis with chronic cholecystitis COPD (chronic obstructive pulmonary disease) GERD (gastroesophageal reflux disease) Iron deficiency anemia Obesity (BMI 30-39.9) Paroxysmal supraventricular tachycardia Transient ischemic attack Home Medications hydroxychloroquine 200 mg tablet 200 mg PO BIDCM 09/18/13 [History Last Taken 09/17/13 20:00] pantoprazole 40 mg tablet,delayed release 40 mg PO DAILY 02/26/19 [History Last Taken 07/28/23] famotidine 20 mg tablet 20 mg PO BID 11/08/21 [History Last Taken 07/28/23] blood pressure monitor #1 ea 11/08/22 [Rx Last Taken Unknown] leucovorin calcium 15 mg tablet 15 mg PO QWEEK 11/08/22 [History Last Taken 07/24/23] prednisone 2.5 mg tablet 2.5 mg PO DAILY 11/08/22 [History Last Taken 07/28/23] metoprolol tartrate 50 mg tablet See Rx Instructions .Route .COMPLEX #180 tabs 04/09/23 [Rx Last Taken 07/28/23] methotrexate sodium 25 mg/mL injection solution 18.75 mg subcut QWEEK 07/28/23 [History Last Taken 07/23/23] sulfasalazine 500 mg tablet,delayed release 1,000 mg PO BID 07/28/23 [History Last Taken 07/28/23] tramadol 50 mg tablet 50 - 100 mg PO Q6H PRN PRN pain 07/28/23 [History Last Taken Unknown] Allergy/AdvReac Type Severity Reaction Status Date / Time doxycycline AdvReac PT UNSURE Verified 07/28/23 11:36 OF REACTION Family History Mother Breast cancer Surgical History H/O tubal ligation History of breast lump removal History of foot surgery History of knee surgery History of radiofrequency ablation procedure for cardiac arrhythmia (03/2003) Social History Smoking Status: Former smoker ROS ROS ED Constitutional Constitutional ED: Denies chills or fever(s) Eyes Eyes: Denies blurry vision or change in vision ENT ENT ED: Denies rhinorrhea or sore throat Cardiovascular Cardiovascular: Reports chest pain; Denies palpitations Respiratory/Chest Respiratory/Chest: Reports cough and dyspnea Gastrointestinal Gastrointestinal: Reports nausea and vomiting Genitourinary Genitourinary ED: Denies dysuria or hematuria Musculoskeletal Musculoskeletal: Denies back pain or neck pain Integumentary Denies abscess or rash Neurologic Neurologic: Denies headache(s) or weakness Allergic/Immunologic Allergic/Immunologic ED: Denies mouth swelling or urticaria EXAM Physical Exam Const Vital Signs: 07/28/23 11:37 07/28/23 11:55 07/28/23 12:36 Temperature 96.8 F L Temperature Source Temporal Pulse Rate 113 H Respiratory Rate 24 H Respiratory Effort Normal Non-Labored Respiratory Depth Normal Respiratory Pattern Normal Blood Pressure 107/96 H Blood Pressure Mean 99 Pulse Ox 97 95 Oxygen Delivery Method Room Air Room Air Room Air 07/28/23 13:36 Temperature 97.3 F L Temperature Source Oral Pulse Rate 77 Respiratory Rate 23 H Respiratory Effort Respiratory Depth Respiratory Pattern Blood Pressure 109/65 Blood Pressure Mean 79 Pulse Ox 98 Oxygen Delivery Method Room Air Positive well nourished, well developed and obese General Appearance ED: well developed and NAD Nutritional Appearance: obese HEENT Reports moist mucous membranes Neck supple and no JVD Resp normal respiratory effort and clear to auscultation bilaterally Cardio regular rhythm Rate: tachycardic GI non-tender and non-distended Palpation: soft Extremity Extremity Narrative: There is a long leg brace in place over the left lower extremity will Neuro oriented x3, CN's II-XII intact bilaterally and no sensory deficits noted Kelsey Coma Scale: document GCS findings Spontaneous Obeys Commands Oriented 15 Sensorium / Orientation: alert Motor Exam: strength 5/5 throughout Psych mental status grossly normal MDM MDM MDM Narrative Medical decision making narrative: Differential diagnosis includes pulmonary embolism, cardiac dysrhythmia, cardiacischemia, electrolyte abnormality, pneumonia, pneumothorax, and viral illness. CTA of the chest will be obtained to assess for pulmonary embolism and pneumonia. CBC will be obtained to assess for leukocytosis and anemia. Basic metabolic profile will be obtained to assess for electrolyte abnormality and renal function. High-sensitivity troponin will be obtained to assess for cardiac ischemia. Lab Data Attestation: I reviewed the patient's lab results. Lab results narrative: CBC was reviewed and was within normal limits. Basic metabolic profile was reviewed. Creatinine was slightly elevated at 1.03. The remainder is within normal limits. High-sensitivity troponin was reviewed and was elevated at 1595. Labs: Laboratory Results - last 24 hr 07/28/23 12:10 WBC 9.6 RBC 4.40 Hgb 12.3 Hct 39.0 MCV 88.6 MCH 28.0 MCHC 31.5 L RDW Std Deviation 47.7 H RDW Coeff of Samson 14.9 H Plt Count 185 MPV 10.3 Immature Gran % (Auto) 0.600 Neut % (Auto) 77.4 H Lymph % (Auto) 13.0 L [place] % (Auto) 8.3 Eos % (Auto) 0.1 Baso % (Auto) 0.6 Absolute Neuts (auto) 7.4 Absolute Lymphs (auto) 1.24 Nucleated RBC % 0 Sodium 137 Potassium 4.0 Chloride 102 Carbon Dioxide 25.0 Anion Gap 10 BUN 13 Creatinine 1.03 H Estim Creat Clear Calc 62.75 Est GFR (MDRD) Af Amer 68 Est GFR (MDRD) Non-Af 56 L BUN/Creatinine Ratio 12.6 Glucose 140 H Calcium 9.4 Troponin I High Sens 1595 H* Radiography Diagnostic Testing: Clinical Impression(s) from Imaging Studies Chest CTA 07/28/23 11:54 IMPRESSION: Diffuse bilateral emboli with thrombus in the distal portion of both the right and left main pulmonary arteries. Stable 5.1 mm well-defined nodule in the lateral right lung apex. Gallstone Electronically Signed: Craig Lindo MD at 13:15 EDT , CTA of the chest was obtained. There are bilateral pulmonary emboli noted. There is no evidence of right heart strain. This was interpreted by the radiologist and was also independently reviewed by myself. EKG Initial EKG: Attestation: I personally reviewed and interpreted this EKG as follows: Interpretation: Sinus Rhythm (79) and Non-Specific ST Changes Comments: EKG was obtained. On my independent interpretation, it showed anormal sinus rhythm with a rate of 79. [place] interval, QRS interval, and QTc intervals were all normal. [place] was normal. There are nonspecific ST-T wave changes. Prior EKG tracings: available for review Prior: Unchanged (06/15/2019) Management Discussion w/another healthcare provider: Hospitalist Treatment and Re-Evaluation :: Patient was given aspirin here. Patient was advised of her findings. Patient was advised of the need for hospitalization. Case was discussed with the hospitalist. Patient was started on heparin drip. Patient will be admitted to the hospital. Patient understood and was agreeable with the plan. All questions were answered. Case was also discussed with Dr. Byron Landeros who is covering for Dr. Mary. He stated that there is no need to consult orthopedics while the patient is in the hospital. He will have the patient follow-up as an outpatient with Dr. Mary. Discharge Plan Dx/Rx/DC Orders Clinical Impression: Bilateral pulmonary embolism, Elevated troponin, Obesity (BMI 30-39.9) Disposition Disposition: Acute Care Hospital [facility] What to do if you have Problems For any increased pain, shortness of breath, bleeding, nausea or vomiting, chestpain, or any unexpected problems, contact your Primary Care Provider. Call [facility] ([phone]) or report to the closest Emergency Room. Call 911 if necessary. 07/28/23 1551 <Electronically signed by Eric West DO> Cosigner Signature (if applicable): CC: Dr. Eric Lozano MD ~ Signed [facility] Work Phone: 1(226) 504-656302-17-2024 Hospital Discharge instructions Additional Instructions Ice your ankle for 15 to 20 minutes at a time several times a day for the next few days. Follow-up with orthopedics.[facility] Work Phone: 1(589) 249-119011-14-2023 History of Present illness Narrative* Shawna Florence RT(R) - 02/25/2023 9:40 AM EST Radiology Service Progress Note PATIENT NAME: Kiko Godfrey DATE OF SERVICE: February 25, 2023 TIME: 11:07 AM PATIENT IDENTITY VERIFICATION COMPLETED USING TWO (2) IDENTIFIERS: Name and Date of confirmedby patient verbally. FALL SCREENING: Has the patient had 2 falls in the last year or 1 fall with injury or currently using an Ambulatory Assistive Device (Walker, Cane, Wheelchair, Crutches, etc.)? No PATIENT GENDER DATA: Female. status: : No status: NO. PATIENT RELEVANT IMPLANT DATA REVIEWED: Not Applicable RADIOLOGY DEPARTMENT: General X-ray: Exam(s) Completed: Lower Extremity X- Ray(s): Toes, Right, 2ND DIGIT PERIPHERAL IV DATA: Not applicable SIGNED BY: RT Romario(R) February 25, 2023 11:07 AM documented [facility] Instructions* Patient Instructions* Marek Chauhan - 02/11/2023 9:08 AM EDT You have fracture of right 2nd toe. Continue with post-op shoe (surgical) or firm sole sneaker Repeat xrays in 2 weeks documented in this encounterM[facility]10-31-2023 History of Present illness Narrative* Marek Chauhan - 02/11/2023 9:03 AM EDT Consultation requested by Dr. Russo for an [...] right 2nd toe proximal phalanx and compression fractureof dipj ASSESSMENT: (S92.839F) Closed nondisplaced fracture of proximal phalanx of lesser toe of right foot, initial encounter PLAN: 1. History and physical examination performed. 2. XR reviewed with patient and interpreted today 3. Discussed fracture of right 2nd toe. Continue with post-op shoe or firm sole sneaker 4. Repeat xrays in 2 weeks Marek Chauhan DPM Podiatry [address] [facility] [address] Dept: [phone] Dept * Shanti Lozano LPN - 02/11/2023 8:43 AM EDT AMB ROOMING INTAKE FLOWSHEET DATA Pain Pain Level: 6 Pain Location: Toe Description: Burning Duration Amount of Time: 3 Duration Units: Weeks Frequency: Continuous Intervention/Comfort measure: Reposition, Relaxation, Medication Patient presents with: Right Foot - New, Pain, Fracture, Swelling Shanti Lozano LPN \ documented in this encounterM[facility]10-18-2023 Instructions* Patient Instructions* Ronaldo Russo APRN.CNP - 01/29/2023 1:12 PM EDT ASSESSMENT/PLAN: 1. Closed nondisplaced fracture of proximal phalanx of lesser toe of right foot, initial encounter - ICD9: 826.0, ICD10: S92.514A (primary diagnosis) Post op shoe provided Pain relief/otc Will schedule follow up with podiatry Follow up for worsening symptoms. - CONSULT TO PODIATRY documented in this encounterMarietta [facility]10-18-2023 History of Present illness Narrative* Ronaldo Russo APRN.CNP - 01/29/2023 1:11 PM EDT Images from the original note were not included. Subjective HPI HPI Kiko Godfrey is a 73 year old female [...] DAY NEEDED. Take for 3 - 5 dayswith a flare. albuterol HFA (PROVENTIL HFA, VENTOLIN [...] the second digit. Dictated by : MD Ronaldo MUSTAFA APRN.RECTIFICATION PRINTER documented in this encounterMarietta [facility]10-18-2023 History of Present illness Narrative* Marcelo Oropeza RT(R) - 01/29/2023 12:40 PM EDT Radiology Service Progress Note PATIENT NAME: Kiko Godfrey DATE OF SERVICE: January 29, 2023 TIME: 12:34 PM PATIENT IDENTITY VERIFICATION COMPLETED USING TWO (2) IDENTIFIERS: Name and Date of confirmedby patient verbally. FALL SCREENING: Has the patient had 2 falls in the last year or 1 fall with injury or currently using an Ambulatory Assistive Device (Walker, Cane, Wheelchair, Crutches, etc.)? No PATIENT GENDER DATA: Female. status: : No status: NO. PATIENT RELEVANT IMPLANT DATA REVIEWED: Not Applicable RADIOLOGY DEPARTMENT: General X-ray: Exam(s) Completed: Lower Extremity X- Ray(s): Toes, Right PERIPHERAL IV DATA: Not applicable SIGNED BY: RT Jesus(R) January 29, 2023 12:34 PM documented in this encounterMari[facility]09-11-2023 History of Present illness Narrative* Ronaldo Russo APRN.CNP - 12/23/2022 11:04 AM EDT Subjective HPI HPI Kiko Godfrey is a 72 year old female who presents today for CC of productive cough,congestion. This started 1 week ago. Has tried otc medication and inhalers for relief. Symptoms areworsened by nothing. Risk factors smoked for many [...] DAY NEEDED. Take for 3 - 5 dayswith a flare. albuterol HFA (PROVENTIL HFA, VENTOLIN [...] MG TABLET - AZITHROMYCIN 250 MG TABLET Ronaldo Russo APRN.JARED documented in this encounterMarietta [facility]06-15-2023 Miscellaneous Notes* Telephone Encounter - Homa Bhat MA - 09/26/2022 7:54 PM EDT Pt was notified of the results. Pt verbalized understanding. Homa Bhat MA * Telephone Encounter - Anny Roach APRN.CNP - 09/26/2022 6:40 PM EDT Negative for COVID and flu please notify thank you documented in this encounterMarietta [facility]06-15-2023 Instructions* Patient Instructions* Faisal Mancini APRN.RECTIFICATION PRINTER - 09/26/2022 9:04 AM EDT How to Manage Common Symptoms Associated with COVID for Adults Fever- Fever is a temperature over 100.4 F and can occur when the body is fighting an infection. Tohelp treat a fever: Drink plenty of fluids [...] your chest such as Vicks, which can helpreduce cough. Try cough drops. Avoid smoking and other strong odors or perfumes. Try breathing exercises to keep your lungs open and clear. Take a big deep breath through your noseand hold for 5 seconds before slowly releasing. [...] of water every 10-15 minutes and increase astolerated. You can try sucking an ice cube [...] or concerning to you. documented in this encounterMarietta [facility]06-15-2023 History of Present illness Narrative* Faisal Mancini APRN.CNP - 09/26/2022 8:55 AM EDT Subjective HPI Nontoxic-appearing female presents urgent care [...] DAY NEEDED. Take for 3 - 5 dayswith a flare. albuterol HFA (PROVENTIL HFA, VENTOLIN [...] anticipated. The patient's clinical presentation is otherwise unremarkableat this time. Based on exam and clinical finding, the patient is stable for discharge. Plan of carewas discussed with patient. Patient verbalizes understanding and agrees to plan of care. This note was generated using Spectafy software. It may contain errors in wording, punctuation, or spelling. Faisal Mancini APRN.JARED documented in this encounterMarietta [facility] Hospital05-04-2023 History of Present illness Narrative* Ronaldo Russo APRN.CNP - 08/15/2022 7:13 PM EDT Images from the original note were not included. Subjective HPI HPI Kiko Godfrey is a 72 year old female [...] DAY NEEDED. Take for 3 - 5 dayswith a flare. albuterol HFA (PROVENTIL HFA, VENTOLIN [...] MG CAPSULE - PREDNISONE 20 MG TABLET Ronaldo Russo APRN.CNP documented in this encounterMarietta [facility]12-31-2022 Instructions* Patient Instructions* Ronaldo Russo APRN.CNP - 04/13/2022 8:55 AM EST [...] breath go to ER documented in this encounterMarietta [facility]12-31-2022 History of Present illness Narrative* Ronaldo Russo APRN.CNP - 04/13/2022 8:46 AM EST Subjective HPI HPI Kiko Godfrey is a 72 year old female who presents today for CC of cough, sinus pressure. This started 1 week ago/worsening past few days. Has tried otc medication for relief. Symptomsare worsened by nothing. Risk factors recent covid/improved [...] DAY NEEDED. Take for 3 - 5 dayswith a flare. albuterol HFA (PROVENTIL HFA, VENTOLIN [...] to ER - AZITHROMYCIN 250 MG TABLET Ronaldo Russo APRN.JARED documented in this encounterMari[facility]12-02-2022 Miscellaneous Notes* Telephone Encounter - Aide Acuna RN - 03/15/2022 1:43 PM EST Patient notified of results and provider's instructions. Patient verbalizes understanding. Aide Acuna RN * Telephone Encounter - Daria Ingram PA-C - 03/15/2022 1:03 PM EST Please call and let patient know she [...] 5 days of symptoms. documented in this encounterMarietta [facility]12-01-2022 History of Present illness Narrative* Anny Roach APRN.[facility] - 03/14/2022 9:59 AM EST CC: Patient presents with: Nasal Congestion: Chest congestion, fever, cough, x1 day. HPI: Kiko Godfrey is a 72 year old female who presents to the office with complaint of chestcongestion, cough, nonproductive, and fever for the past [...] DAY NEEDED. Take for 3 - 5 dayswith a flare. albuterol HFA (PROVENTIL HFA, VENTOLIN [...] plan. Anny Roach APRN.JARED documented in this encounterMarietta [facility]06-03-2022 History of Present illness Narrative* Anny Roach APRN.CNP - 09/14/2021 10:12 AM EDT CC: Patient presents with: Cough: Pt reported SOB w/ coughing, denied chest pain, nasal congestion HPI: Kiko Godfrey is a 71 year old female who presents to the office with complaint of chestcongestion and cough, nonproductive for 10 days. Symptoms [...] Patient agreeable to treatment plan. Anny Roach APRN.CNP documented in this encounterMarietta [facility] Hospital05-27-2022 History of Present illness Narrative* Anny Roach APRN.CNP - 09/07/2021 10:28 AM EDT CC: Patient presents with: Cough: wheezing, congestion x this AM said she woke up 2 hours ago sick. Denies viral swabs at this time. HPI: Kiko Godfrey is a 71 year old female who presents to the office with complaint of chestcongestion, cough, nonproductive and wheezing since this morning. [...] 4 days then take 2 tablets in theam and 1 tablet pm for 4 days [...] plan. Anny Roach APRN.JARED documented in this encounterMarietta [facility] Hospital02-04-2022 History of Present illness Narrative* Marcelo Oropeza RT(R) - 05/18/2021 4:20 PM EST Radiology Service Progress Note PATIENT NAME: Kiko Godfrey DATE OF SERVICE: May 18, 2021 TIME: 4:14 PM PATIENT IDENTITY VERIFICATION COMPLETED USING TWO (2) IDENTIFIERS: Name and Date of confirmedby patient verbally. FALL SCREENING: Has the patient had 2 falls in the last year or 1 fall with injury or currently using an Ambulatory Assistive Device (Walker, Cane, Wheelchair, Crutches, etc.)? No PATIENT GENDER DATA: Female. status: : No status: NO. PATIENT RELEVANT IMPLANT DATA REVIEWED: Not Applicable RADIOLOGY DEPARTMENT: General X-ray: Exam(s) Completed: Lower Extremity X- Ray(s): Toes, Left PERIPHERAL IV DATA: Not applicable SIGNED BY: RT Jesus(R) May 18, 2021 4:14 PM documented in this encounterMarietta [facility] Hospital09-10-2021 History of Present illness Narrative* Shawna Laird RT(R) - 12/22/2020 10:40 AM EDT Radiology Service Progress Note PATIENT NAME: Kiko Godfrey DATE OF SERVICE: December 22, 2020 TIME: 10:57 AM PATIENT IDENTITY VERIFICATION COMPLETED USING TWO (2) IDENTIFIERS: Name and Date of confirmedby patient verbally. FALL SCREENING: Has the patient [...] 22, 2020 10:57 AM documented in this encounterMarietta [facility]04-02-2008 History of Past illness Narrative* Problem Noted Date Resolved Date Abnormality of gait 07/15/2007 07/15/2007 documented as of this encounter (statuses as of 09/07/2021) [address] History of Past illness Narrative* Problem Noted Date Resolved Date Abnormality of gait 07/15/2007 07/15/2007 documented as of this encounter (statuses as of 09/14/2021) [address]02[address] History of Past illness Narrative* Problem Noted Date Resolved Date Abnormality of gait 07/15/2007 07/15/2007 documented as of this encounter (statuses as of 03/14/2022) [address] History of Past illness Narrative* Problem Noted Date Resolved Date Abnormality of gait 07/15/2007 07/15/2007 documented as of this encounter (statuses as of 03/15/2022) [address] History of Past illness Narrative* Problem Noted Date Resolved Date Abnormality of gait 07/15/2007 07/15/2007 documented as of this encounter (statuses as of 04/18/2022) [address] History of Past illness Narrative* Problem Noted Date Resolved Date Abnormality of gait 07/15/2007 07/15/2007 documented as of this encounter (statuses as of 08/16/2022) [address] History of Past illness Narrative* Problem Noted Date Resolved Date Abnormality of gait 07/15/2007 07/15/2007 documented as of this encounter (statuses as of 09/26/2022) [address] History of Past illness Narrative* Problem Noted Date Resolved Date Abnormality of gait 07/15/2007 07/15/2007 documented as of this encounter (statuses as of 09/27/2022) [address] History of Past illness Narrative* Problem Noted Date Diagnosed Date Resolved Date Abnormality of gait 07/15/2007 07/15/19 08 documented as of this encounter (statuses as of 12/23/2022) [address] History of Past illness Narrative* Problem Noted Date Diagnosed Date Resolved Date Abnormality of gait 07/15/2007 07/15/19 08 documented as of this encounter (statuses as of 01/29/2023) [address] History of Past illness Narrative* Problem Noted Date Diagnosed Date Resolved Date Abnormality of gait 07/15/2007 07/15/19 08 documented as of this encounter (statuses as of 02/11/2023) [facility] History of Past illness Narrative* Problem Noted Date Diagnosed Date Resolved Date Abnormality of gait 07/15/2007 07/15/19 08 documented as of this encounter (statuses as of 02/26/2023) [facility] Elise Eisenberg [facility] July 31, 2023 2:37pm Note Date/Time July 31, 2023 2:3 7pm [facility] Medical Records Department [address] [place] [address] Counseling Note - Pharmacy 07/31/23 1437 MR#: [id number] Acct: [id number] Name: KIKO GODFREY Rep #:[id number] : 1950 73 From: Elise Eisenberg PCP: Dr. Eric Lozano MD Status:ADM IN Y Location: [place] [address] Pharmacy [facility] Service has performed discharge medication reconciliation and counseling for this patient. The patient's discharge medication list was reviewed for discrepancies and discrepancies were resolved. The patient was counseled on the following discharge medications and changes in medications for homegoing were reviewed. 1. ELIQUIS The Reason for Use, instructions for use, and potential side effects were reviewed for all new medications. The patient's questions regarding all of their medications were answered. The patient was able to verbally demonstrate an understanding of their dischargemedications. Medications at Discharge Home Medications hydroxychloroquine 200 mg tablet 200 mg PO BIDCM 09/18/13 pantoprazole 40 mg tablet,delayed release 40 mg PO DAILY 02/26/19 famotidine 20 mg tablet 20 mg PO BID 11/08/21 blood pressure monitor #1 ea 11/08/22 leucovorin calcium 15 mg tablet 15 mg PO QWEEK counteract the methotrexate 11/08/22 prednisone 2.5 mg tablet 2.5 mg PO DAILY 11/08/22 metoprolol tartrate 50 mg tablet See Rx Instructions .Route .COMPLEX #180 tabs 04/09/23 methotrexate sodium 25 mg/mL injection solution 18.75 mg subcut QWEEK arthritis 07/28/23 sulfasalazine 500 mg tablet,delayed release 1,000 mg PO BID 07/28/23 tramadol 50 mg tablet 50 - 100 mg PO Q6H PRN PRN pain 07/28/23 apixaban 5 mg tablet (Eliquis) 5 mg PO BID 30 days #72 tabs 07/31/23 07/31/23 1437 <Electronically signed by Elise Eisenberg > Date _ Elise Eisenberg Cosigner Signature (if applicable): Date CC: ~ Signed [facility] Work Phone: Discharge summary Author [facility] Note Date/Time June 28, 2024 12: 38pm [facility] Medical Records Department [address] [place] [address] Emergency Department Summary 06/28/24 MR#: [id number] Acct: [id number] Name: KIKO GODFREY Rep #:[id number] : 1950 74 From: Gladis Chavez PCP: Dr. Eric Lozano MD Status:[facility] ER Location: ED HPI History of Present Illness Chief Complaint: Cold Sx Informant: patient Narrative Narrative: Patient 74-year-old female with history of COPD, proximal SVT and PE (after a leg injury) as well as arthritis on methotrexate and hydroxychloroquine presenting for continued cough and not feeling better. Patient states she was diagnosed with influenza A 1 week ago. She had a chest x-ray that time which was negative for pneumonia. She was prescribed promethazine and prednisone as well as cefdinir (has 1 day left). She notes 3 weeks ago she was at urgent careand diagnosed with a viral bronchitis and a week later was seen again for some type of sinus infection and placed on a course of Augmentin. She feels that yesterday her cough was little better and her sputum was clear but then today itturned back to green. She still feels short of breath. She is not sure if she is worsening or just not getting better. She is unsure if she has had fever. She came in for further evaluation. She denies any swelling of her legs. Denies any chest pain. States that she does have chest wall pain from all the coughing. Has an inhaler at home she does not find particularly helpful. Does not wear home O2. Continues to have nasal congestion. No other complaints or concerns reported at this time. [facility] Medical History Anxiety and depression Schizophrenia Rheumatoid arthritis Former smoker Pulmonary embolism Transient ischemic attack Paroxysmal supraventricular tachycardia Iron deficiency anemia Obesity (BMI 30-39.9) GERD (gastroesophageal reflux disease) COPD (chronic obstructive pulmonary disease) Home Medications ?Medication ?Instructions ?Recorded ?Last Taken ?Type hydroxychloroquine 200 mg tablet 200 mg PO BIDCM 09/1809/17/13 20:00 History pantoprazole 40 mg tablet,delayed 40 mg PO DAILY 02/2607/28/23 History release famotidine 20 mg tablet 20 mg PO BID 11/08/21 History blood pressure monitor #1 ea 11/08/22 Unknown Rx leucovorin calcium 15 mg tablet 15 mg PO QWEEK counter act the 11/08/22 07/24/23 History methotrexate prednisone 2.5 mg tablet 2.5 mg PO DAILY 11/08/22 History Held on 04/01/24. Instructions: Restart once your prednisone taper is completed methotrexate sodium 25 mg/mL 18.75 mg subcut QWEEK art hritis 07/28/23 07/23/23 History injection solution sulfasalazine 500 mg 1,000 mg PO BID 07/28/23 History tablet,delayed release tramadol 50 mg tablet 50 - 100 mg PO Q6H PRN PRN p ain 07/28/23 Unknown History mecobalamin (vitamin B12) 5,000 3,000 mcg PO QDAY 12/14 08/05 Unknown History mcg chewable tablet potassium citrate 10 mEq (1,080 10 meq PO BID 03/31/24 Unknown History mg) tablet,extended release prednisone 10 mg tablet 10 mg PO DAILY #30 tabs 03/14 01/05 Unknown Rx metoprolol tartrate 50 mg tablet See Rx Instructions . Route 05/14/24 Unknown Rx .COMPLEX #180 tabs codeine 10 mg-guaifenesin 100 mg/5 5 ml PO Q6H PRN cou gh #118 mL 06/28/24 Unknown Rx mL oral liquid (Guaifenesin AC) Allergy/AdvReac Type Severity Reaction Status Date / Time doxycycline AdvReac PT UNSURE Verified 06/28/24 09:08 OF REACTION Family History Mother Breast cancer Surgical History History of radiofrequency ablation procedure for cardiac arrhythmia (03/2003) H/O tubal ligation History of knee surgery History of breast lump removal History of foot surgery Social History household members: none Smoking Status: Former smoker how long ago did patient quit smoking: Quit 15 yrs prior, smoked 2 ppd since 22yrs old until quit. alcohol intake: never substance use type: does not use ROS ROS ED Constitutional Constitutional ED: Denies chills or fever(s) ENT ENT ED: Reports rhinorrhea and other Details: congestion ; Denies sore throat Cardiovascular Cardiovascular: Denies chest pain Respiratory/Chest Respiratory/Chest: Reports cough, dyspnea and sputum Gastrointestinal Gastrointestinal: Reports nausea; Denies abdominal pain or vomiting Musculoskeletal Musculoskeletal: Denies arthralgias or myalgias Neurologic Neurologic: Reports weakness Hematologic/Lymphatic Hematologic/Lymphatic: Denies easy bleeding or easy bruising EXAM Physical Exam Const Vital Signs: 06/28/24 09:06 06/28/24 09:26 06/28/24 10:02 Temperature 97.2 F L Temperature Source Temporal Pulse Rate 61 69 Respiratory Rate 15 18 Respiratory Effort Short of Breath Respiratory Pattern Normal Blood Pressure 195/65 H Blood Pressure Mean 108 Pulse Ox 100 Oxygen Delivery Method Room Air 06/28/24 11:05 Temperature Temperature Source Pulse Rate 58 L Respiratory Rate 19 H Respiratory Effort Respiratory Pattern Blood Pressure Blood Pressure Mean Pulse Ox 94 Oxygen Delivery Method Room Air Positive well nourished and well developed General Appearance ED: well developed and NAD; Negative for pallor HEENT Reports TM's clear and moist mucous membranes HEENT Narrative: Normal nasal mucosa, slight congestion present Tympanic Membrane ED: Yes TM's clear Eyes PERRL Neck supple and no JVD Resp normal respiratory effort Resp Narrative: Intermittent bronchial cough on exam Auscultation: wheezes expiratory wheezes (Right lower lobe) and diminished lung sounds bilateral lower Cardio regular rate, regular rhythm and no murmurs GI non-tender and non-distended Extremity normal to inspection General Extremety ED: Negative for edema or tenderness General Extremity: Negative for edema Neuro oriented x3 Sensorium / Orientation: alert Motor Exam: Negative for general weakness Psych mental status grossly normal Skin no wounds General Skin Exam: Negative for jaundice or pallor MDM MDM MDM Narrative Medical decision making narrative: Patient evaluated for ongoing cough and shortness of breath in the setting of influenza A. She is diagnosed last week. She is afebrile. She does have a bronchial cough but overall nontoxic/well-appearing. Vital sign significantly significant for hypertension. Chest x-ray obtained to ensure she is not developed secondary pneumonia or otheracute process including normal thorax or pleural effusion. Chest x-ray viewed by myself as well as radiology does not show any acute process. She has a normal white blood cell count. Hemoglobin mildly low at 10.8 but thisappears chronic for the patient. Is at her baseline. BMP shows mild hypokalemia with a potassium of 3.2. Will give a dose of potassium replacement emergency room. Patient is given a DuoNeb with improvement of her symptoms. She has improvement of her basiar breath sounds. Is ambulated and goes down to 93% but overall does well. Generally she requires admission from hypoxia standpoint. I suspect this is postviral bronchitis associate with her recent influenza. Given that she is already on antibiotics and steroids I do not thinkshe requires further medicine for this. Will be given a prescription for Robitussin AC for further cough suppression and to help with her symptoms. Counseled to stop taking her promethazine (which was prescribed for cough) if she takes Robitussin AC. She has Tessalon Perles but does not feel like they are helpful. Is encouraged to follow-up with her primary care doctor to see if she can get a nebulizer for home prescription. Given return precautions. I counseled on the typical time course of cough associated with influenza/viral illness and bronchitis. Discharged home in stable condition. Lab Data Attestation: I reviewed the patient's lab results. Labs: Laboratory Results - last 24 hr 06/28/24 10:00 WBC 10.1 RBC 4.15 L Hgb 10.8 L Hct 36.0 L MCV 86.7 MCH 26.0 L MCHC 30.0 L RDW Std Deviation 50.1 H RDW Coeff of Samson 15.9 H Plt Count 241 MPV 10.1 Immature Gran % (Auto) 0.800 Neut % (Auto) 70.5 H Lymph % (Auto) 18.4 L [place] % (Auto) 9.0 Eos % (Auto) 0.7 Baso % (Auto) 0.6 Absolute Neuts (auto) 7.1 Absolute Lymphs (auto) 1.85 Nucleated RBC % 0 Sodium 143 Potassium 3.2 L Chloride 108 Carbon Dioxide 22.8 Anion Gap 12 BUN 8 Creatinine 0.81 Estim Creat Clear Calc 75.76 Est GFR (MDRD) Non-Af 77 BUN/Creatinine Ratio 9.6 L Glucose 98 Calcium 8.6 Radiography Chest X-Ray - ED: 2 View, Read by ED Physician, Read by Radiologist, No Acute Disease and Chronic Changes Diagnostic Testing: Clinical Impression(s) from Imaging Studies Chest X-Ray 06/28/24 09:18 IMPRESSION: 1. Suspect mild emphysema without convincing or visible acute cardiopulmonary findings. If unexplained symptoms persist, consider CT. 2. Additional description as above. Reading Location: [facility] Rhythm Strip Rhythm Strip: Sinus Rhythm Rate: 54 Ectopy: PVC(s) EKG Initial EKG: Attestation: I personally reviewed and interpreted this EKG as follows: Comments: Sinus bradycardia with occasional PVCs rate of 54 bpm Normal axis Normal intervals Nonspecific T wave changes no acute ischemic pattern Prior EKG tracings: available for review Prior: Unchanged Discharge Plan Triage Chief Complaint: Cold Sx ED Provider: Gladis Moralez Dx/Rx/DC Orders Clinical Impression: Influenza A, Hypokalemia, Cough Instructions: ED Influenza (Adult), ED Hypokalemia Prescriptions: New codeine-guaifenesin [Guaifenesin AC] 10-100 mg/5 mL liquid 5 ml PO Q6H PRN (Reason: cough) Qty: 118 0RF No Action famotidine 20 mg tablet 20 mg PO BID leucovorin calcium 15 mg tablet 15 mg PO QWEEK Rx Instructions: Pt takes every prednisone 2.5 mg tablet 2.5 mg PO DAILY (DME) blood pressure monitor Kit See Rx Instructions .Route Qty: 1 0RF Rx Instructions: As directed mecobalamin (vitamin B12) 5,000 mcg tablet,chewable 3,000 mcg PO QDAY Patient Comments: takes sometimes hydroxychloroquine 200 MG tablet 200 mg PO BIDCM Patient Comments: mental health pantoprazole 40 MG tablet,delayed release (DR/EC) 40 mg PO DAILY sulfasalazine 500 mg tablet,delayed release (DR/EC) 1,000 mg PO BID methotrexate sodium 25 mg/mL solution 18.75 mg subcut QWEEK Rx Instructions: Pt takes every Friday tramadol 50 mg tablet 50 - 100 mg PO Q6H PRN PRN (Reason: pain) potassium citrate 10 mEq (1,080 mg) tablet extended release 10 meq PO BID Patient Comments: takes sometimes prednisone 10 mg tablet 10 mg PO DAILY Qty: 30 0RF Rx Instructions: 4 tablets x 3 days, 3 tablets x 3 days, 2 tablets x 3 days, 1 tablet x 3 daysthen stop metoprolol tartrate 50 mg tablet See Rx Instructions .ROUTE .COMPLEX Qty: 180 3RF Dose Instruction: TAKE 1 TABLET TWICE A DAY Rx Instructions: TAKE 1 TABLET TWICE A DAY Primary Care Provider: Eric Lozano Referrals: Eric Lozano MD [Primary Care Provider] - Activity Restrictions/Additional Instructions: Your lab work is overall very reassuring. Your chest x-ray does not show an acute pneumonia. Please stop the promethazine cough medicine while taking the new prescribed cough medicine as this can cause dangerous sedation. Continue antibiotics and steroids. Your potassium was mildly low and you were given a potassium pill in the ER. Please follow-up with your primary care doctor. I suspect you are developing bronchitis associated with your recent influenza and likely will continue to cough for the next 2 weeks. Please discuss to the primary care doctor prescription for nebulizer. Continue to use your albuterol inhaler 1 to 2 puffs every 4-6 hours as needed for cough or chest tightness Print Language: Romanian What to do if you have Problems For any increased pain, shortness of breath, bleeding, nausea or vomiting, chestpain, or any unexpected problems, contact your Primary Care Provider. Call [employer] [facility] ([phone]) or report to the closest Emergency Room. Call 911 if necessary. 06/28/24 1238 <Electronically signed by Gladis Moralez DO> Cosigner Signature (if applicable): CC: Dr. Eric Lozano MD ~ Signed [facility] Work Phone: Evaluation noteNo assessment information available [facility] Work Phone: Evaluation note* Diagnosis Cough- Primary documented in this encounter [facility] note* Diagnosis Cough- Primary documented in this encounter [facility] note* Diagnosis Onset Date Resolution Status Essential hypertension chron ic Paroxysmal supraventricular tachycardia chronic [facility] Work Phone: Evaluation note* Diagnosis URI, acute- Primary Acute upper respiratory infections of unspecified site documented in this encounter [facility] note* Diagnosis Sinobronchitis- Primary Unspecified sinusitis (chronic) documented in this encounter [facility] note* Diagnosis Pain in salivary gland region- Primary [facility]* Diagnosis Acute cough- Primary Viral illness Unspecified viral infection, in conditions classified elsewhere and of unspecified site Suspected COVID-19 virus infection documented in this encounter [facility] note* Diagnosis Lower resp. tract infection- Primary Other diseases of respiratory system, not elsewhere classified [facility]* Diagnosis Closed nondisplaced fracture of proximal phalanx of lesser toe of right foot, initial encounter- Primary Toe injury, right, initial encounter documented [facility]* Diagnosis Closed nondisplaced fracture of proximal phalanx of lesser toe of right foot, initial encounter [facility]* Diagnosis Closed nondisplaced fracture of proximal phalanx of lesser toe of right foot, initial encounter documented in this encounter [facility] note* Diagnosis Onset Date Resolution Status Bilateral pulmonary embolism acute Elevated troponin acute Obesity (BMI 30-39.9) chroni c [facility] Work Phone: Evaluation note* Diagnosis Onset Date Resolution Status Acute deep vein thrombosis ( DVT) of left lower extremity acute Bilateral pulmonary embolism acute Elevated troponin acute [facility] (BMI 30-39.9) [facility] Work Phone: Evaluation note* Diagnosis Onset Date Resolution Status Acute deep vein thrombosis ( DVT) of left lower extremity acute Bilateral pulmonary embolism acute Elevated troponin resolved Acute deep vein thrombosis ( DVT) of left lower extremity acute Bilateral pulmonary embolism acute [facility] Work Phone: Evaluation note* Diagnosis Acute cough- Primary URI, acute Acute upper respiratory infections of unspecified site Acute cough documented in this encounter [facility] note* Diagnosis Acute cough documented in this encounter [facility] note* Diagnosis Acute cough documented in this encounter [facility] note* Diagnosis Toe injury, left, initial encounter documented in this encounter [facility] note* Diagnosis URI, acute Acute upper respiratory infections of unspecified site documented in this encounter [facility] note* Diagnosis Acute cough- Primary Viral bronchitis Acute bronchitis documented in this encounter [facility] note* Diagnosis Bacterial sinusitis- Primary Unspecified sinusitis (chronic) documented in this encounter [facility] Discharge instructions Additional Instructions Your lab work is overall very reassuring. Your chest x-ray does not show an acute pneumonia. Please stop the promethazine cough medicine while taking the new prescribed cough medicine as this can cause dangerous sedation. Continue antibiotics and steroids. Your potassium was mildly low and you were given a potassium pill in the ER. Please follow-up with your primary care doctor. I suspect you are developing bronchitis associated with your recent influenza and likely will continue to cough for the next 2 weeks. Please discuss to the primary care doctor prescription for nebulizer. Continue to use your albuterol inhaler 1 to 2 puffs every 4-6 hours as needed [facility] Work Phone: Reason for referral (narrative)* Diagnostic Procedure Only (Routine) - Pending Review Specialty Diagnoses / Procedures Referred By Quentin guerrero Referred To Contact XR IMAGING Diagnoses Closed nondisplaced fracture of proximal phalanx of lesser toe of right foot, initial encounter Procedures XR TOE AP/LAT/OBL RIGHT RADEX TOE MINIMUM [address] [place] [address] [place] [address] Referral ID Status Reason Start Date Expiration Date Visits Requested Visits Authorized [id number] Pending Review Auto-Generat ed Referral 03/12/2024 1 1 [facility] for referral (narrative)* Diagnostic Procedure Only (Urgent) - Closed Specialty Diagnoses / Procedures Referred By Contac t Referred To Contact XR IMAGING Diagnoses Toe injury, left, initial encounter Procedures XR TOE AP/LAT/OBL LEFT RADEX TOE MINIMUM 2 VIEWS Vianey Chamberlain, CVICU NURSE.RECTIFICATION PRINTER [address] [place] [address] [place] [address] Referral ID Status Reason Start Date Expiration Date V isits Requested Visits Authorized [id number] Closed Auto-Generate d Referral 05/18/2021 06/17/2022 1 1 [facility] for visit Narrative* Diagnostic Procedure Only (Routine) - Closed Specialty Diagnoses / Procedures Referred By Contac t Referred To Contact XR IMAGING Diagnoses Closed nondisplaced fracture of proximal phalanx of lesser toe of right foot, initial encounter Procedures XR TOE AP/LAT/OBL RIGHT RADEX TOE MINIMUM 2 VIEWS Marek Chauhan [address] [place] [address] [place] [address] Referral ID Status Reason Start Date Expiration Date V isits Requested Visits Authorized [id number] Closed Auto-Generate d Referral 02/11/2023 03/12/2024 1 1 [facility] for visit Narrative* Diagnostic Procedure Only (Urgent) - Closed Specialty Diagnoses / Procedures Referred By Contac t Referred To Contact XR IMAGING Diagnoses Toe injury, right, initial encounter Procedures XR TOE AP/LAT/OBL RIGHT RADEX TOE MINIMUM 2 VIEWS Ronaldo Russo CVICU NURSE.RECTIFICATION PRINTER [address] [place] [address] [place] [address] Referral ID Status Reason Start Date Expiration Date V isits Requested Visits Authorized [id number] Closed Auto-Generate d Referral 01/29/2023 02/28/2024 1 1 [facility] Diagnostic Procedure Only (Urgent) - Closed Specialty Diagnoses / Procedures Referred By Contac t Referred To Contact XR IMAGING Diagnoses Toe injury, left, initial encounter Procedures XR TOE AP/LAT/OBL LEFT RADEX TOE MINIMUM 2 VIEWS Vianey Chamberlain, OLIVIA.RECTIFICATION PRINTER [address] [place] [address] [place] [address] Referral ID Status Reason Start Date Expiration Date V isits Requested Visits Authorized [id number] Closed Auto-Generate d Referral 05/18/2021 06/17/2022 1 1 [facility] Advance Directives No Advanced Directives Records Found Advance Directive Response Recorded Date/ Time Advance Directives No September 18 4:04pm Living Will No July 30, 2020 12:06pm Power of Punch Card Operator No July 30 12:06pm Advance Directive Response Recorded Date/ Time Advance Directives No September 18 3:04pm Living Will No July 30, 2020 11:06am Power of Punch Card Operator No July 30 11:06am Advance Directive Response Recorded Date/ Time Advance Directives No September 18 3:04pm Living Will No May 31 2:54pm Power of Punch Card Operator No May 31, 2023 2:54pm Advance Directive Response Recorded Date/ Time Advance Directives No September 18 4:04pm Living Will No July 28, 2023 11:36am Power of Punch Card Operator No July 27 11:36am Advance Directive Response Recorded Date/ Time Advance Directives No September 18 4:04pm Living Will No July 28, 2023 3:29pm Power of Punch Card Operator No July 27 3:29pm Advance Directive Response Recorded Date/ Time Advance Directives No June 22 8:29am Living Will No March 31 12:17pm Power of Punch Card Operator No March 31, 2024 12:17pm Living Will Yes June 28, 2024 9:25am Power of Punch Card Operator Yes June 28 9:25am Name of Medical Power of Punch Card Operator ? June 28, 2024 9:25am Advance Directive Response Recorded Date/ Time Advance Directives No June 22, 025 8:29am Living Will No March 31 12:17pm Do you have a Healthcare Power of Punch Card Operator? No March 31, 2024 12:17pm Living Will Yes June 28, 2024 9:25am Do you have a Healthcare Power of Punch Card Operator? Yes June 28, 2024 9:25am Name of Medical Power of Punch Card Operator ? June 28, 2024 9:25am Chief Complaint and Reason for Visit Chief Complaint COUGH Chief Complaint 1 Y FU SCREENING Reason for Visit Essential hypertensi on Paroxysmal supraventricular tachycardia Chief Complaint 1 Y FU SCREENING HYPERTENSION Reason for Visit Essential hypertensi on Paroxysmal supraventricular tachycardia Chief Complaint 1 Y FU SCREENING HYPERTENSION PAIN- COPY PCP Reason for Visit Essential hypertensi on Paroxysmal supraventricular tachycardia Chief Complaint OSTEO Chief Complaint OSTEO PAIN- COPY PCP Chief Complaint PAIN- COPY PCP PAIN- COPY PCP 1 Y FU SCREENING Reason for Visit Essential hypertensi on Paroxysmal supraventricular tachycardia Chief Complaint 1 Y FU SCREENING PAIN- COPY PCP Reason for Visit Essential hypertensi on Paroxysmal supraventricular tachycardia Chief Complaint fall Chief Complaint fall LEFT ANKLE AND KNEE INJURY Chief Complaint fall LEFT ANKLE AND KNEE INJURY DYSPNEA, BL PE, ELEVATED TROP Reason for Visit Bilateral pulmonary embolism Elevated troponin Obesity (BMI 30-39.9) Chief Complaint fall LEFT ANKLE AND KNEE INJURY DYSPNEA, BL PE, ELEVATED TROP DYSPNEA, BL PE, ELEVATED TROP DYSPNEA, BL PE, ELEVATED TROP DYSPNEA, BL PE, ELEVATED TROP Reason for Visit Acute deep vein thro mbosis (DVT) of left lower extremity Bilateral pulmonary embolism Elevated troponin Obesity (BMI 30-39.9) Chief Complaint fall LEFT ANKLE AND KNEE INJURY DYSPNEA, BL PE, ELEVATED TROP DYSPNEA, BL PE, ELEVATED TROP DYSPNEA, BL PE, ELEVATED TROP DYSPNEA, BL PE, ELEVATED TROP DYSPNEA, BL PE, ELEVATED TROP SOFT TISSUE DISORDERS F/U FROM TESTING Reason for Visit Acute deep vein thro mbosis (DVT) of left lower extremity Bilateral pulmonary embolism Elevated troponin Acute deep vein thrombosis (DVT) of left lower extremity Bilateral pulmonary embolism Chief Complaint Admit Date HX NICOTINE DEPENDENCE March 31 9:40am COPD EXACERBATION March 31, 2024 10:32am COPD EXACERBATION March 31, 2024 2:34pm COPD EXACERBATION April 01, 2024 2:30pm S/O- PAIN- COPY PCP April 28, 2024 8 :45am XRAY June 22, 2024 8:2 9am FLU A June 28, 2024 9:0 5am Reason for Visit Admit Date COPD exacerbation March 31, 2024 10:32am Health Concerns Infection Onset Date Last Indicated [...] initial encounter Procedures CONSULT TO PODIATRY OFFICE/OUTPATIENT [facility] 60-74 MINUTES Ronaldo Russo APRN.RECTIFICATION PRINTER [address] [place] [address] Referral ID Status Reason Start Date Expiration Date Visits Requested Visits Authorized [id number] Authorized PCP Requested Referral 01/29/2024 1 1 Specialty Diagnoses / Procedures Referred By Contac t Referred To Contact XR IMAGING Diagnoses Toe injury, right, initial encounter Procedures XR TOE AP/LAT/OBL RIGHT RADEX TOE MINIMUM 2 VIEWS Ronaldo Russo APRN.RECTIFICATION PRINTER [address] [place] [address] [place] [address] Referral ID Status Reason Start Date Expiration Date V isits Requested Visits Authorized [id number] Closed Auto-Generate d Referral 01/29/2023 02/28/2024 1 1 Summary Purpose Family History No Family History Records Found Additional Source Comments Goals (unrecognized section and content) Goals may be documented in a n alternate sectionGoals may be documented in an alternate sectionGoals may be documented in an alternate sectionGoals may be documented in an alternate sectionGoals may be documented in an alternate sectionGoals may be documented in an alternate sectionGoals may be documented in an alternate sectionGoals may be documented in an alternate sectionGoals may be documented in an alternate sectionGoals may be documented in an alternate sectionGoals may be documented in an alternate sectionGoals may be documented in an alternate sectionGoals may be documented in an alternate sectionGoals may be documented in an alternate sectionGoals may be documented in an alternate sectionGoals may be documented in an alternate sectionGoals may be documented in an alternate section Source Comments (unrecognize d section and content) In the event this informatio n is protected by the Federal Confidentiality of Alcohol and Drug Abuse Patient Records regulations: The Federal rules restrict any use of the information to criminally investigate or prosecute any alcohol or drug abuse patient.[facility] the event this information is protected by the Federal Confidentiality of Alcohol and Drug Abuse Patient Records regulations: The Federal rules restrict any use of the information to criminally investigate or prosecute any alcohol or drug abuse patient.[facility] the event this information is protected by the Federal Confidentiality of Alcohol and Drug Abuse Patient Records regulations: The Federal rules restrict any use of the information to criminally investigate or prosecute any alcohol or drug abuse patient.[facility] the event this information is protected by the Federal Confidentiality of Alcohol and Drug Abuse Patient Records regulations: The Federal rules restrict any use of the information to criminally investigate or prosecute any alcohol or drug abuse patient.[facility] the event this information is protected by the Federal Confidentiality of Alcohol and Drug Abuse Patient Records regulations: The Federal rules restrict any use of the information to criminally investigate or prosecute any alcohol or drug abuse patient.[facility] the event this information is protected by the Federal Confidentiality of Alcohol and Drug Abuse Patient Records regulations: The Federal rules restrict any use of the information to criminally investigate or prosecute any alcohol or drug abuse patient.[facility] the event this information is protected by the Federal Confidentiality of Alcohol and Drug Abuse Patient Records regulations: The Federal rules restrict any use of the information to criminally investigate or prosecute any alcohol or drug abuse patient.[facility] the event this information is protected by the Federal Confidentiality of Alcohol and Drug Abuse Patient Records regulations: The Federal rules restrict any use of the information to criminally investigate or prosecute any alcohol or drug abuse patient.[facility] the event this information is protected by the Federal Confidentiality of Alcohol and Drug Abuse Patient Records regulations: The Federal rules restrict any use of the information to criminally investigate or prosecute any alcohol or drug abuse patient.[facility] the event this information is protected by the Federal Confidentiality of Alcohol and Drug Abuse Patient Records regulations: The Federal rules restrict any use of the information to criminally investigate or prosecute any alcohol or drug abuse patient.[facility] the event this information is protected by the Federal Confidentiality of Alcohol and Drug Abuse Patient Records regulations: The Federal rules restrict any use of the information to criminally investigate or prosecute any alcohol or drug abuse patient.[facility] the event this information is protected by the Federal Confidentiality of Alcohol and Drug Abuse Patient Records regulations: The Federal rules restrict any use of the information to criminally investigate or prosecute any alcohol or drug abuse patient.[facility] the event this information is protected by the Federal Confidentiality of Alcohol and Drug Abuse Patient Records regulations: The Federal rules restrict any use of the information to criminally investigate or prosecute any alcohol or drug abuse patient.[facility] the event this information is protected by the Federal Confidentiality of Alcohol and Drug Abuse Patient Records regulations: The Federal rules restrict any use of the information to criminally investigate or prosecute any alcohol or drug abuse patient.[facility] HospitalIn the event this information is protected by the Federal Confidentiality of Alcohol and Drug Abuse Patient Records regulations: The Federal rules restrict any use of the information to criminally investigate or prosecute any alcohol or drug abuse patient.[facility] HospitalIn the event this information is protected by the Federal Confidentiality of Alcohol and Drug Abuse Patient Records regulations: The Federal rules restrict any use of the information to criminally investigate or prosecute any alcohol or drug abuse patient.[facility] HospitalIn the event this information is protected by the Federal Confidentiality of Alcohol and Drug Abuse Patient Records regulations: The Federal rules restrict any use of the information to criminally investigate or prosecute any alcohol or drug abuse patient.[facility] HospitalIn the event this information is protected by the Federal Confidentiality of Alcohol and Drug Abuse Patient Records regulations: The Federal rules restrict any use of the information to criminally investigate or prosecute any alcohol or drug abuse patient.[facility] HospitalIn the event this information is protected by the Federal Confidentiality of Alcohol and Drug Abuse Patient Records regulations: The Federal rules restrict any use of the information to criminally investigate or prosecute any alcohol or drug abuse patient.[facility] HospitalIn the event this information is protected by the Federal Confidentiality of Alcohol and Drug Abuse Patient Records regulations: The Federal rules restrict any use of the information to criminally investigate or prosecute any alcohol or drug abuse patient.[facility] HospitalIn the event this information is protected by the Federal Confidentiality of Alcohol and Drug Abuse Patient Records regulations: The Federal rules restrict any use of the information to criminally investigate or prosecute any alcohol or drug abuse patient.[facility] Reason for Visit (unrecogniz ed section [...] Swelling Specialty Diagnoses / Procedures Referred By Contac t Referred To Contact Podiatry Diagnoses Closed nondisplaced fracture of proximal phalanx of lesser toe of right foot, initial encounter Procedures CONSULT TO PODIATRY OFFICE/OUTPATIENT [facility] 60-74 MINUTES Ronaldo Russo APRN.RECTIFICATION PRINTER [address] [place] [address] Referral ID Status Reason Start Date Expiration Date V isits Requested Visits Authorized [id number] Closed PCP Requested Referral 01/29/2023 01/29/2024 1 1 Reason Comments Chest Congestion cough x 3 days Reason Comments Chest Congestion SMALLS, cough, lungs fee l like they are on fire x 2 days Reason Comments Sinus Problem Chest congestion, co ugh, green mucus, SMALLS x 2 weeks Care Teams (unrecognized sec tion and content) Technical Systems Architect Relationship Specialty Start Date End Date Eric Lozano MD [address] [place] [id number] PCP - General Family Practice 12/22/20 Technical Systems Architect Relationship Specialty Start Date End Date Eric Lozano MD [address] [place] [id number] PCP - General Family Practice 12/22/20 Technical Systems Architect Relationship Specialty Start Date End Date Eric Lozano MD [address] [place] [id number] PCP - General Family Medicine 12/22/20 Technical Systems Architect Relationship Specialty Start Date End Date Eric Lozano MD [address] [place] [id number] PCP - General Family Medicine 12/22/20 Technical Systems Architect Relationship Specialty Start Date End Date Eric Lozano MD [address] [place] [id number] PCP - General Family Medicine 12/22/20 Team Status: Active Member Role Status Dates Dr. Eric Lozano MD Family Provider Active Dr. Eric Lozano MD Primary Care Provider Active Team Status: Inactive Member Role Status Dates Dr. Eric Lozano MD Primary Care Provide r, Attending Provider, Referring Provider Active Dr. Sheeba Velasco MD Other Provider Active Team Status: Inactive Member Role Status Dates Dr. Eric Lozano MD Primary Care Provider Active Dr. Sheeba Velasco MD Attending Provider, Referring Provider Active Team Status: Inactive Member Role Status Dates Dr. Eric Lozano MD Primary Care Provider Active Yudy Angel FORENSIC INVESTIGATOR, FORENSIC INVESTIGATOR-C Attending Provider Active Technical Systems Architect Relationship Specialty Start Date End Date Eric Lozano MD [address] [place] [address] PCP - General Family Medicine 12/22/20 Technical Systems Architect Relationship Specialty Start Date End Date Eric Lozano MD [address] [facility] [place], [place] [id number] [phone] PCP - General Family Medicine 12/22/20 Technical Systems Architect Relationship Specialty Start Date End Date Eric Lozano MD [address] [place] [address] PCP - General Family Medicine 12/22/20 Team Status: Inactive Member Role Status Dates Dr. Eric Lozano MD Primary Care Provider, Attending P rovider Active Dr. Sheeba Velasco MD Other Provider Active Team Status: Inactive Member Role Status Dates Dr. Eric Lozano MD Primary Care Provider, Referring P rovider Active Jennifer Angulo FORENSIC INVESTIGATOR, FORENSIC INVESTIGATOR-C Attending Provider Active Team Status: Inactive Member Role Status Dates Dr. Eric Lozano MD Primary Care Provider Active Yudy Angel FORENSIC INVESTIGATOR, FORENSIC INVESTIGATOR-C Attending Provider, Referring Pro vider Active Technical Systems Architect Relationship Specialty Start Date End Date Eric Lozano MD [address] [place] [address] PCP - General Family Medicine 12/22/20 Technical Systems Architect Relationship Specialty Start Date End Date Eric Lozano MD [address] [place] [address] PCP - General Family Medicine 12/22/20 Technical Systems Architect Relationship Specialty Start Date End Date Eric Lozano MD [address] [place] [address] PCP - General Family Medicine 12/22/20 Technical Systems Architect Relationship Specialty Start Date End Date Eric Lozano MD [address] [place] [address] PCP - General Family Medicine 12/22/20 Team Status: Inactive Member Role Status Dates Dr. Eric Lozano MD Primary Care Provider Active Dr. Yazan Brito DO Emergency Provider Active Team Status: Inactive Member Role Status Dates Dr. Eric Lozano MD Primary Care Provider Active Joseluis SIMPSON PA-C Attending Provider, Referring Pr ottoniel Active Team Status: Inactive Member Role Status Dates Dr. Eric Lozano MD Primary Care Provider Active Dr. Yazan Brito DO Attending Provider, Emergency P rogillder Active Team Status: Active Member Role Status Dates Dr. Eric Lozano MD Primary Care Provider Active Dr. Eric West DO Emergency Provider Active Dr. Sophia Wang MD Admit Provider, Attending Prov ider Active Team Status: Active Member Role Status Dates Dr. Eric Lozano MD Primary Care Provider Active Dr. Mario Taveras MD Attending Provider Active Team Status: Active Member Role Status Dates Dr. Eric Lozano MD Primary Care Provider Active Dr. Eric Olmos MD Attending Provider Active Team Status: Active Member Role Status Dates Dr. Eric Lozano MD Primary Care Provider Active Dr. Eric West DO Emergency Provider Active Dr. Sophia Wang MD Admit Provider, Other Provider Active Dr. Dmitry Griggs , Attending Provider, Other Provider Active Dr. Eric Olmos MD Other Provider Active Dr. Giovani Mesa MD Other Provider Active Dr. Donell Ray MD Other Provider Active Dr. Amanuel Wheeler , DO Other Provider Active Dr. Cleveland Barr MD Other Provider Active Dr. Elian Garibay MD Other Provider Active Dr. Paulina Castellanos MD Other Provider Active Dr. Harmeet Murcia MD Other Provider Active Dr. Tana Aguilar MD Other Provider Active Dr. Lachelle Miller MD Other Provider Active Dr. Ld Otero MD Other Provider Active Dr. Anurag Garrett MD Other Provider Active Dr. Keyshawn Moses MD Other Provider Active Dr. Jorje Cooley MD Other Provider Active Dr. Candelario Temple MD Other Provider Active Team Status: Active Member Role Status Dates Dr. Eric Lozano MD Primary Care Provider Active Dr. Eric West , DO Emergency Provider Active Dr. Sophia Wang MD Admit Provider, Other Provider Active Dr. Dmitry Griggs , DO Other Provider Active Dr. Eric Olmos MD Other Provider Active Dr. Giovani Mesa MD Other Provider Active Dr. Donell Ray MD Other Provider Active Dr. Amanuel Wheeler , DO Attending Provider, Other Provide r Active Dr. Cleveland Barr MD Other Provider Active Dr. Elian Garibay MD Other Provider Active Dr. Paulina Castellanos MD Other Provider Active Dr. Harmeet Murcia MD Other Provider Active Dr. Tana Aguilar MD Other Provider Active Dr. Lachelle Miller MD Other Provider Active Dr. Ld Otero MD Other Provider Active Dr. Anurag Garrett MD Other Provider Active Dr. Keyshawn Moses MD Other Provider Active Dr. Jorje Cooley MD Other Provider Active Dr. Candelario Temple MD Other Provider Active Team Status: Inactive Member Role Status Dates Dr. Eric Lozano MD Primary Care Provider Active Dr. Eric West , DO Emergency Provider Active Dr. Sophia Wang MD Admit Provider, Other Provider Active Dr. Dmitry Griggs , DO Attending Provider Active Dr. Eric Olmos MD Other Provider Active Team Status: Active Member Role Status Dates Dr. Eric Lozano MD Primary Care Provider Active Dr. Eric Olmos MD Attending Provider Active Dr. Dmitry Griggs , DO Referring Provider Active Team Status: Active Member Role Status Dates Dr. Eric Lozano MD Primary Care Provider Active Dr. Eric West , DO Emergency Provider Active Dr. Sophia Wang MD Admit Provider, Other Provider Active Dr. Dmitry Griggs , DO Referring Provider, Other Provider Active Dr. Eric Olmos MD Other Provider Active Dr. Giovani Mesa MD Other Provider Active Dr. Donell Ray MD Other Provider Active Dr. Amanuel Wheeler , DO Attending Provider, Other Provide r Active Dr. Cleveland Barr MD Other Provider Active Dr. Elian Garibay MD Other Provider Active Dr. Paulina Castellanos MD Other Provider Active Dr. Harmeet Murcia MD Other Provider Active Dr. Tana Aguilar MD Other Provider Active Dr. Lachelle Miller MD Other Provider Active Dr. Ld Otero MD Other Provider Active Dr. Anurag Garrett MD Other Provider Active Dr. Keyshawn Moses MD Other Provider Active Dr. Jorje Cooley MD Other Provider Active Dr. Candelario Temple MD Other Provider Active Team Status: Active Member Role Status Dates Dr. Eric Lozano MD Primary Care Provider Active Dr. Eric Olmos MD Attending Provider Active TATIANA Saab Referring Provider Active Team Status: Active Member Role Status Dates Dr. Eric Lozano MD Primary Care Provider Active Dr. Eric West , Emergency Provider Active Dr. Sophia Wang MD Admit Provider, Other Provider Active Dr. Dmitry Griggs , Attending Provider, Other Provider Active Dr. Eric Olmos MD Other Provider Active Team Status: Inactive Member Role Status Dates Dr. Eric Lozano MD Primary Care Provider, Referring P santiago Active TATIANA Saab Attending Provider Active Team Status: Active Member Role Status Dates Dr. Eric Lozano MD Primary Care Provider Active Dr. Sheeba Velasco MD Attending Provider, Referring Provider Active Team Status: Inactive Member Role Status Dates Dr. Eric Lozano MD Primary Care Provider Active TATIANA Saab Attending Provider, Referring Provid er Active Technical Systems Architect Relationship Specialty Start Date End Date Eric Lozano MD [address] [place] [address] PCP - General Family Medicine 12/22/20 Technical Systems Architect Relationship Specialty Start Date End Date Eric Lozano MD [address] [facility] [place] [address] PCP - General Family Medicine 12/22/20 Technical Systems Architect Relationship Specialty Start Date End Date Eric Lozano MD [address] [facility] [place] [address] PCP - General Family Medicine 12/22/20 Technical Systems Architect Relationship Specialty Start Date End Date Eric Lozano MD [address] [place] [address] PCP - General Family Medicine 12/22/20 Technical Systems Architect Relationship Specialty Start Date End Date Eric Lozano MD [address] [place] [address] PCP - General Family Medicine 12/22/20 Technical Systems Architect Relationship Specialty Start Date End Date Eric Lozano MD [address] [place] [address] PCP - General Family Medicine 12/22/20 Technical Systems Architect Relationship Specialty Start Date End Date Eric Lozano MD [address] [place] [address] PCP - General Family Medicine 12/22/20 Technical Systems Architect Relationship Specialty Start Date End Date Eric Lozano MD [address] [place] [address] PCP - General Family Medicine 12/22/20 Technical Systems Architect Relationship Specialty Start Date End Date Eric Lozano MD [address] [place] [address] PCP - General Family Medicine 12/22/20 Team Status: Active Member Role Status Dates Dr. Eric Lozano MD Primary Care Provider Active Team Status: Inactive Member Role Status Dates Dr. Eric Lozano MD Primary Care Provider Active Start: March 31, 2024 End: March 31, 2024 Yudy Angel FORENSIC INVESTIGATOR, FORENSIC INVESTIGATOR-C Attending Provider Active S tart: March 31, 2024 End: March 31, 2024 Yudy Angel FORENSIC INVESTIGATOR, FORENSIC INVESTIGATOR-C Referring Provider Active S tart: March 31, 2024 End: March 31, 2024 Team Status: Inactive Member Role Status Dates Dr. Eric Lozano MD Primary Care Provider Active Start: March 31, 2024 End: April 01, 2024 Dr. Yazan Brito DO Emergency Provider Active Start: March 31, 2024 End: April 01, 2024 Dr. Eric Peace DO Admit Provider Active Star t: March 31, 2024 End: April 01, 2024 Dr. Eric Peace DO Other Provider Active Star t: March 31, 2024 End: April 01, 2024 Dr. Sheri Lamb DO Attending Provider Active S tart: March 31, 2024 End: April 01, 2024 Team Status: Active Member Role Status Dates Dr. Eric Lozano MD Primary Care Provider Active Start: March 31, 2024 Dr. Yazan Brito DO Emergency Provider Active Start: March 31, 2024 Dr. Eric Peace DO Admit Provider Active Star t: March 31, 2024 Dr. Eric Peace DO Attending Provider Active Start: March 31, 2024 Dr. Eric Peace DO Other Provider Active Star t: March 31, 2024 Team Status: Active Member Role Status Dates Dr. Eric Lozano MD Primary Care Provider Active Start: April 01, 2024 Dr. Yazan Brito DO Emergency Provider Active Start: April 01, 2024 Dr. Eric Peace DO Admit Provider Active Star t: April 01, 2024 Dr. Eric Peace DO Other Provider Active Star t: April 01, 2024 Dr. Sheri Lamb DO Attending Provider Active S tart: April 01, 2024 Dr. Sheri Lamb DO Other Provider Active Start : April 01, 2024 Team Status: Inactive Member Role Status Dates Dr. Eric Lozano MD Primary Care Provider Active Start: April 28, 2024 End: April 28, 2024 Dr. Sheeba Velasco MD Attending Provider Active Start: April 28, 2024 End: April 28, 2024 Dr. Sheeba Velasco MD Referring Provider Active Start: April 28, 2024 End: April 28, 2024 Team Status: Inactive Member Role Status Dates Dr. Eric Lozano MD Primary Care Provider Active Start: June 22, 2024 End: June 22, 2024 Dr. Mario Taveras MD Attending Provider Active S tart: June 22, 2024 End: June 22, 2024 Team Status: Inactive Member Role Status Dates Dr. Eric Lozano MD Primary Care Provider Active Start: June 28, 2024 End: June 28, 2024 Dr. Gladis Moralez DO Emergency Provider Active Start: June 28, 2024 End: June 28, 2024 Team Status: Inactive Member Role Status Dates Dr. Eric Lozano MD Primary Care Provider Active Start: June 28, 2024 End: June 28, 2024 Dr. Gladis Moralez DO Attending Provider Active Start: June 28, 2024 End: June 28, 2024 Dr. Gladis Moralez DO Emergency Provider Active Start: June 28, 2024 End: June 28, 2024 Team Status: Inactive Member Role Status Dates Dr. Eric Lozano MD Primary Care Provider Active Start: July 21, 2024 End: July 21, 2024 Dr. Sheeba Velasco MD Attending Provider Active Start: July 21, 2024 End: July 21, 2024 Dr. Sheeba Velasco MD Referring Provider Active Start: July 21, 2024 End: July 21, 2024 INFORMATION SOURCE (unrecogn ized section and content) DATE CREATED AUTHOR 06/07/2024 [facility] DATE CREATED AUTHOR AUTHOR'S ORGANIZ ATION 07/27/2024 [facility] FOR RECORDS PERTAINING TO PATIENTS WHO ARE [...] BE BASED ON THE PRIMARY CLINICAL RECORDS. [employer] provides no warranty or guarantee of the accuracy or completeness of information in this document.
== END | disposition home or self-care (01) ==
LOC: MTLAB 12:59
PROVIDERS: PCP Family Medicine; Referring Provider Internal Medicine Rheumatology; Visit Provider Internal Medicine Rheumatology
DX: M05.70 Rheumatoid arthritis with rheumatoid factor of unspecified site without organ or systems involvement (principal); Z79.899 Other long term (current) drug therapy
CPT/HCPCS: 36415; 80053; 85025

== ENCOUNTER → 2024-10-19 | Outpatient (CLI) | payer MEDICARE, OTHER, SELFPAY ==
[2024-10-22 04:07] LABS: QNTFERON TB Mitogen Value > 10.00 IU/mL (.); QNTFERON TB Nil Value 0.04 IU/mL (.); QNTFERON TB1+ Ag Value 0.07 IU/mL (.); QNTFERON TB2+ Ag Value 0.06 IU/mL (.); QNTIFERON TB Positive Criteria Negative (Negative)
== END | disposition home or self-care (01) ==
LOC: MTLAB 11:06
PROVIDERS: PCP Family Medicine; Referring Provider Internal Medicine Rheumatology; Visit Provider Internal Medicine Rheumatology
DX: M05.70 Rheumatoid arthritis with rheumatoid factor of unspecified site without organ or systems involvement (principal); Z79.899 Other long term (current) drug therapy
CPT/HCPCS: 36415; 86480

== ENCOUNTER → 2024-12-23 | Outpatient (CLI) | payer MEDICARE, OTHER, SELFPAY ==
--- NOTE | 2024-12-23 11:45 | BI_ITS ---
EXAM: SCRN MAMM (CAD)W/VERITO BILAT DATE: 12/23/2024 CLINICAL HISTORY: F, Age 74 y/o , ROUTINE Mother with breast cancer. Prior right stereotactic breast biopsy and bilateral excisional breast biopsies. TECHNIQUE: Procedure Code: [id number] Modality: MG Procedure: SCRN MAMM (CAD)W/VERITO BILAT COMPARISON: Prior exam(s) dated November 11, 2022.. FINDINGS: TISSUE DENSITY: There are scattered areas of fibroglandular density. Bilateral Breast Mammographic Findings: No significant masses, calcifications or other abnormalities are identified. Stable fat containing axillary lymph nodes. No suspicious masses, areas of developing architectural distortion, or suspicious calcifications. There has been no significant interval change. BI/SCRN MAMM (CAD)W/VERITO BILAT IMPRESSION: Stable bilateral screening mammogram. OVERALL FINAL ASSESSMENT BI-RADS 2: BENIGN RECOMMENDATION: Routine annual follow-up in 1 Year A letter with findings and recommendations will be mailed to the patient. Reading Location: [place]
== END | disposition home or self-care (01) ==
LOC: OPBI 11:45
PROVIDERS: PCP Family Medicine; Referring Provider Family Medicine; Visit Provider Family Medicine
DX: Z12.31 Encounter for screening mammogram for malignant neoplasm of breast (principal)
CPT/HCPCS: 77063; 77067

== ENCOUNTER → 2025-01-04 | Outpatient (CLI) | payer MEDICARE, OTHER, SELFPAY ==
[2025-01-04 10:54] LABS: Hematocrit 38.2 % (37-47); Hemoglobin 11.7 g/dL (12.0-15.0); Immature Granulocytes Count 0.010 X10^3/uL (0.0-0.0); Mean Corp Hgb Conc 30.6 g/dL (32-36); Mean Corpuscular Volume 87.6 fL (81-99); Mean Platelet Vol. 10.4 fl (6.2-12.0); NRBC Flagged by Analyzer 0 % (0-5); Platelet Count 236 K/mm3 (150-450); RBC Distribution Width CV 17.6 % (11.6-14.6); RBC Distribution Width SD 54.9 fl (35.1-43.9); Red Blood Count 4.36 M/mm3 (4.2-5.4); White Blood Count 4.5 K/mm3 (4.4-11.0)
[2025-01-04 11:31] LABS: BUN 11 mg/dL (4-19); Glucose 111 mg/dL (70-99)
[2025-01-04 11:32] LABS: AST(SGOT) 24 U/L (<=31); Alanine Aminotransfer ALT/SGPT 8 U/L (<=34); Albumin, Serum 4.0 g/dL (3.4-4.8); Alkaline Phosphatase 69 U/L (35-104); Anion Gap 11 (5-15); BUN/Creat Ratio 11.5 RATIO (10-20); Calcium,Total 9.2 mg/dL (7.6-11.0); Carbon Dioxide 22.2 mmol/L (21.0-32.0); Chloride 108 mmol/L (98-108); Globulin 3.1 g/dL (2.2-4.2); Potassium 3.7 mmol/L (3.3-5.1)
== END | disposition home or self-care (01) ==
LOC: LAB 09:56
PROVIDERS: PCP Family Medicine; Referring Provider Internal Medicine Rheumatology; Visit Provider Internal Medicine Rheumatology
DX: M05.70 Rheumatoid arthritis with rheumatoid factor of unspecified site without organ or systems involvement (principal); Z79.899 Other long term (current) drug therapy
CPT/HCPCS: 36415; 80053; 85025

== ENCOUNTER → 2025-02-15 | Outpatient (CLI) | payer MEDICARE, OTHER, SELFPAY | END | disposition home or self-care (01) | LOC: CVS 12:47 | PROVIDERS: PCP Family Medicine; Referring Provider Physician Assistant Medical; Visit Provider Physician Assistant Medical | DX: I51.7 Cardiomegaly (principal) | CPT/HCPCS: 93306 ==

== ENCOUNTER → 2025-03-01 | Outpatient (CLI) | payer MEDICARE, OTHER, SELFPAY | END | disposition home or self-care (01) | LOC: PSN 11:51 | PROVIDERS: PCP Family Medicine; Referring Provider Physician Assistant Medical; Visit Provider Physician Assistant Medical | DX: I48.0 Paroxysmal atrial fibrillation (principal) | CPT/HCPCS: 93225; 93226 ==

== ENCOUNTER → 2025-03-07 | Outpatient (CLI) | payer MEDICARE, OTHER, SELFPAY ==
--- OUTSIDE RECORDS SUMMARY | 2025-03-07 06:49 | XMS RPT_ITS | CCD ---
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 Eric Lozano Primary Care Provider Dr. Eric Lozano Referring Provider [phone] Kev [employer], [employer] Jennifer Attending Provider Dr. Eric Lozano Primary Care Provider Dr. Eric Olmos Attending Provider Dr. Mario Taveras Attending Provider Dr. Eric West Emergency Provider Dr. Sophia Wang Admit Provider Dr. Sophia Wang Other Provider Dr. Dmitry Griggs Attending Provider Dr. Dmitry Griggs Other Provider Dr. Eric Olmos Other Provider Dr. Giovani Mesa Other Provider [phone] Donell Ray Other Provider Dr. Amanuel Wheeler Other Provider Dr. Cleveland Barr Other Provider Dr. Elian Garibay Other Provider Dr. Paulina Castellanos Other Provider Dr. Harmeet Murcia Other Provider Dr. Tana Aguilar Other Provider Dr. Lachelle Miller Other Provider Unavailable Dr. Ld Otero Other Provider Dr. Anuarg Garrett Other Provider Dr. Keyshawn Moses Other Provider Dr. Jorje Cooley Other Provider Dr. Candelario Temple Other Provider Dr. Amanuel Wheeler Attending Provider Dr. Dmitry Griggs Referring Provider TATIANA Dave Referring Provider Dr. Eric Lozano Referring Provider TATIANA Dave Attending Provider Eric Lozano MD Primary Care Provider Blake BERRIOS, Dr. Miles Primary Care Provider Stanley [employer], Yudy Attending Provider Stanley [employer], Yudy Referring Provider Alisha GEORGE, Dr. Hand Emergency Provider Nata GEORGE, Dr. Miles Admit Provider Nata GEORGE, Dr. Miles Other Provider Adonis GEORGE, Dr. Wade Attending Provider Nata GEORGE, Dr. Miles Attending Provider Adonis GEORGE, Dr. Wade Other Provider Rod BERRIOS, Dr. Aly Attending Provider Rod BERRIOS, Dr. Aly Referring Provider Nitin BERRIOS, Dr. Martin Attending Provider Dr. Gladis Moralez DO Emergency Provider Naomy GEORGE, Dr. Griffith Attending Provider Blake BERRIOS, Dr. Miles Primary Care Provider Rod BERRIOS, Dr. Aly Attending Provider Rod BERRIOS, Dr. Aly Referring Provider Blake BERRIOS, Dr. Miles Primary Care Provider Blake BERRIOS, Dr. Miles Primary Care Physician Rod BERRIOS, Dr. Aly Attending Physician Rod BERRIOS, Dr. Aly Referring Provider Blake BERRIOS, Dr. Miles Attending Physician Blake BERRIOS, Dr. Miles Referring Provider Bear SIMPSON, Beatrice Zhong Attending Physician LOZANO, A Primary Care Unavailable FAISAL MANCINI Attending Unavailable FAISAL MANCINI Referring Unavailable LOZANO, A Primary Care Unavailable LOZANO, A Primary Care Unavailable LOZANO, A Primary Care Unavailable LOZANO, A Primary Care Unavailable MIRA VALENCIA Referring Unavailable LOZANO, A Primary Care Unavailable Vellanki, Sheeba Attending Unavailable Vellanki, Sheeba Referring Unavailable Lozano, Primary Care Unavailable Lozano, Referring Unavailable Lozano, Attending Unavailable Lozano, Primary Care Unavailable Jopperi, Consulting Unavailable Jopperi, Admitting Unavailable Sheri Lamb Attending Unavailable Lozano, Primary Care Unavailable Adonis, Sheri Consulting Unavailable Jopperi, Attending Unavailable Lozano, Referring Unavailable Beatrice Bond Attending Unavail able Lozano, Primary Care Unavailable Lozano, Primary Care Unavailable Lozano, Referring Unavailable Beatrice Bond Attending Unavail able Mario Taveras Attending Unavailable Lozano, Primary Care Unavailable Vellanki, Sheeba Attending Unavailable Vellanki, Sheeba Referring Unavailable Lozano, Primary Care Unavailable Lozano, Primary Care Unavailable Beatrice Bnod Referring Unavail able eBatrice Bond Attending Unavail able Gladis Moralez Attending Unavailable Lozano, Primary Care Unavailable Lozano, Primary Care Unavailable Stanley [employer], Yudy Referring Unavailable Stanley [employer], Yudy Attending Unavailable Lozano, Primary Care Unavailable Jopperi, Consulting Unavailable Jopperi, Admitting Unavailable Sheri Lamb Attending Unavailable Vellanki, Sheeba Referring Unavailable Vellanki, Sheeba Attending Unavailable Lozano, Primary Care Unavailable Vellanki, Sheeba Referring Unavailable Vellanki, Sheeba Attending Unavailable Lozano, Primary Care Unavailable Vellanki, Sheeba Attending Unavailable Vellanki, Sheeba Referring Unavailable Lozano, Primary Care Unavailable Lozano, Primary Care Unavailable Stanley [employer], Yudy Referring Unavailable Stanley [employer], Yudy Attending Unavailable Allergies Allergy Classification Reported Allergen(s) Allergy Type Date of Onset Reaction(s) Facility Amoxicillin / Clavulanate (1 source) Amoxicillin / Clavulanate Drug Allergy [address] [facility] Doxycycline (1 source) Doxycycline Drug Allergy [address] [facility] (20 sources) Doxycycline; Translations: [DOXYCYCLINE] Drug Allergy [address] [facility] (12 sources) environmental [Other] Propensity to adverse reactions 7 [facility] Work Phone: (17 sources) Amoxicillin / Clavulanate; Translations: [AMOXICILLIN-POT CLAVULANATE] Drug Allergy [address] [facility] (1 source) Doxycycline Drug Allergy 5 [facility] Medications Current Medications Medication Drug Class(es) Dates Sig (Normalized) Sig (Original) [id number] 200 actuat albuterol 0.09 mg/actuat metered dose [...] MCG /ACT AERS as direceted ALBUTEROL SULFATE [id number] Mario Taveras MD Start: 10-16-2016 End: 10-16-2016 PROAIR HFA 108 (90 Base) MCG /ACT AERS as direceted ALBUTEROL SULFATE [id number] Mario Taveras MD Start: 10-16-2016 PROAIR HFA 108 (90 Base) MCG/ACT AERS as direceted ALBUTEROL SULFATE [id number] Kelly Mehta RN Comment on above: Inhale [...] Comment on above: Take 1 tablet by [facility] twice daily for 10 days. azithromycin 250 [...] Pressure Monitor Active 0 .Route 1 November 08, 2022 12:00am As directed Blood Pressure Monitor kit (6 sources) Start: 11-08-2022 Blood Pressure Monitor kit Active 0 .Route 1 0 November 08, 2022 12:00am HTN As directed Start: 11-08-2022 Blood Pressure Monitor kit Active 0 .Route 1 November 08, 2022 12:00am As directed budesonide [...] Comment on above: Take 1 capsule by [facility] three times daily for 7 days. famotidine 20 mg oral tablet (20 sources) Histamine-2 Receptor Antagonist Start: 2 take 1 tablet by mouth twice daily Start: 11-02-2019 End: 11-16-2019 take 1 tablet [...] tablet by mouth twice daily at mealtime Comment on above: Take one(1) tablet t [...] 1 dose. leucovorin 15 mg oral tablet (15 sources) Folate Analog Start: 11-08-2022 take 1 tablet by mouth every week mecobalamin (6 sources) Start: 01-06-2024 Start: 01-06-2024 Mecobalamin (V itamin B12) 5,000 mcg tablet,chewable Active 3000 ug PO daily January 06, 2024 12:00am methotrexate 25 mg/ml inject able solution (20 sources) Folate Analog Metabolic Inhibitor Start: 01-04-2025 Start: 07-28-2023 End: 01-04-2025 Methotrexate Sodium 25 mg/mL solution Discontinued 18.75 mg SC EVERY WEEK July 28, 2023 12:00am January 04, 2025 9:31am arthritis Pt takes every Friday Start: 07-28-2023 Methotrexate [...] tablet (20 sources) Proton Pump Inhibitor Start: 02-26-2019 take 1 tablet by mouth once daily pantoprazole sod ium (PANTOPRAZOLE ORAL) Take by mouth. Active pantoprazole sod ium (PANTOPRAZOLE ORAL) Take by mouth. 0 Active Comment on above: Take by mouth. 100 ml potassium chloride 0.1 meq/ml injection (7 sources) potassium chlori de in water 10 mEq/100 mL Inject 10 mEq intravenously one time only. Active Comment on above: Inject 10 mEq intrav enously one time only. predniSONE 20 mg oral tablet (20 sources) Start: End: take 1 tablet by mouth twice daily predniSONE (DELTASONE) 20 mg tablet Indications: Viral bronchitis Take 1 tablet by mouth two times a day for 5 days. 10 tablet 05/26/2024 05/31/2024 Active Start: 10-13-2023 End: 05-26-2024 Start: 12-23-2022 End: 12-28-2022 take 2 tablets by mouth once daily predniSONE (DELTASONE) 20 mg tablet Indications: Lower resp. tract infection Take 2 tablets by mouth once daily for 5 days. 10 tablet 0 12/23/2022 12/28/2022 Active Start: 11-08-2022 take 1 tablet by [facility] once daily Start: 09-26-2022 End: 10-01-2022 take 4 tablets [...] completed) Start: 03-05-2022 take 1 tablet by lilly [...] MG tablet Discontinued 10 mg PO DIRECTED 33 0 July 04, 2018 12:00am October 27, 2018 [...] 10 days Take 2 tablets by mo ut once daily for 5 days. Take daily with food. TAKE 1 TABLET BY LILLY EVERY DAY NEEDED. Take for 3 - 5 days with a flare. Take 2 tablets by mo ut once daily for 5 days. Take 4 tablets by mo ut once daily for 5 days. 2.5 mg. sulfaSALAzine 500 mg delayed release oral tablet (20 sources) Aminosalicylate Start: 07-28-2023 take 2 tablets by mouth twice daily Start: 07-28-2023 take 1000 mg by mout twice daily Sulfasalazine Active 1000 MG PO [...] Active traMADol hydrochloride 50 mg oral tablet (15 sources) Opioid Agonist Start: 07-28-2023 take 50-100 mg by mouth every six hours as needed for pain Start: 10-16-2016 take 1 tablet by [facility] twice daily as needed TRAMADOL HCL 50 MG TABS One tablet by mouth twice daily as needed TRAMADOL HCL [id number] Mario Taveras MD Completed/Discontinued Medications Medication Drug Class(es) Dates Sig (Normalized) Sig (Original) acetaminophen 325 mg / HYDROcodone bitartrate 5 mg oral tablet (20 sources) Opioid Agonist Start: 05-31-2023 End: 07-28-2023 Hydrocodone-Acetami nophen 5-325 mg tablet Discontinued 1 {tbl} PO EVERY 4 HOURS NEEDED as needed for Pain 12 3 0 May 31, 2023 July 28, 2023 1:53pm Fracture of ankle Other fracture of unspecified lower leg, initial encounter for closed fracture Start: 05-31-2023 End: 07-28-2023 take 1 tablet by mouth every four hours as needed Hydrocodone-Acetaminophen Discontinued 1 TABLET PO EVERY 4 HOURS NEEDED 12 3 May 31, 2023 July 28, 2023 1:53pm Start: 10-16-2016 End: 10-16-2016 HYDROCODONE-ACETAMINOPHEN 5- 325 MG TABS as directed HYDROCODONE-ACETAMINOPHEN [id number] Mario Taveras MD acetaminophen 325 mg / oxyCODONE hydrochloride 5 mg oral tablet (20 sources) Opioid Agonist Start: 07-30-2020 End: 08-02-2020 Oxycodone-Acetaminophen 1 TABLET tablet Discontinued 1 {tbl} PO EVERY 6 HOURS NEEDED as needed for Pain 12 3 0 July 30, 2020 August 01, 2020 12:00am August 02, 2020 12:02am Knee pain Pain in unspecified knee Start: 07-30-2020 End: 08-02-2020 take 1 tablet by mouth every six hours as needed Oxycodone-Acetaminophen Discontinued 1 TABLET PO EVERY 6 HOURS NEEDED 12 3 July 30, 2020 August 02, 2020 12:02am amLODIPine 5 mg oral tablet (20 sources) Dihydropyridine Calcium Channel Rigo Start: 10-27-2018 End: 10-27-2018 take 1 tablet by mouth once daily Amlodipine 5 mg tablet Discontinued 5 mg PO DAILY 90 6 October 27, 2018 12:00am October 27, 2018 11:25am apixaban 5 mg oral tablet (20 sources) Factor Xa Inhibitor Start: 08-12-2023 End: 03-31-2024 take 1 tablet by mouth twice daily Apixaban (Eliquis) 5 mg tablet Discontinued 5 mg PO TWICE A DAY 60 30 5 August 12, 2023 4:13pm March 31, 2024 9:57am Start: 07-31-2023 End: 08-12-2023 Apixaban (Eliquis) 5 mg tabl et Discontinued 5 mg PO TWICE A DAY 72 30 0 July 31, 2023 12:00am August 12, 2023 [...] TBEC One tablet by mouth daily ASPIRIN [id number] Nicole Weathers RN take 1 tablet by mouth once abraham y ASPIRIN 81 MG ORAL TABS One tablet by mouth daily ASPIRIN [id number] Vianey Lujanpie MUSICAL ENGINEER take 1 tablet by mouth once abraham y ASPIRIN 81 MG ORAL TABS One tablet by mouth daily ASPIRIN [id number] Vianey Lujanpie MUSICAL ENGINEER benzonatate 100 mg oral capsule (20 sources) [...] TIMES DAILY NEEDED as needed for Cough 20 0 February 27, 2019 1:00am November 02, 2019 [...] for cough. Take 1 capsule by mo uth three times daily as needed for cough. celecoxib 200 mg oral capsule (5 sources) Nonsteroidal Anti-inflammatory Drug Start: 10-17-19 17 take 1 tablet by mouth once daily CELEBREX 200 MG CAPS One tablet by mouth daily CELECOXIB [id number] Mario Taveras MD cetirizine hydrochloride 10 mg oral tablet (20 sources) Histamine-1 Receptor Antagonist Start: 10-30-19 11 End: 05-09-19 15 take 1 tablet by mouth once daily ZYRTEC ALLERGY 10 MG TABS One tablet by mouth daily CETIRIZINE HCL [id number] Yara Narvaez codeine phosphate 2 mg/ml / guaiFENesin 20 mg/ml oral solution (6 sources) Opioid Agonist Start: 06-29-19 End: 01-05-20 25 take 1 mL by mouth every six hours as needed for cough Codeine-Guaifenesin (Guaifenesin Ac) 10-100 mg/5 mL liquid Discontinued 5 mL PO EVERY 6 HOURS as needed for cough 118 0 June 28, 2024 12:00am January 04, 2025 9:29am Cough Influenza due to influenza virus, type A, human Cough, unspecified diclofenac sodium 75 mg delayed release oral tablet (20 sources) Nonsteroidal Anti-inflammatory Drug Start: 10-24-19 18 End: 10-28-19 19 take 1 tablet by mouth twice daily Diclofenac Sodium 75 mg tablet,delayed release (DR/EC) Discontinued 75 mg PO TWICE A DAY October 23, 2017 12:00am October 27, 2018 11:06am etodolac 400 mg oral tablet (20 sources) Nonsteroidal Anti-inflammatory Drug Start: 11-16-19 End: 11-09-19 22 take 1 tablet by mouth twice daily Etodolac 400 mg tablet Discontinued 400 mg PO TWICE A DAY November 16, 2019 12:00am November 08, 2021 9:15am ferrous gluconate (20 sources) End: 11-23-19 15 take 1 tablet by mouth once daily IRON 240 (27 Fe) MG TABS One tablet by mouth daily FERROUS GLUCONATE [id number] Ana Hackett take 1 tablet by mouth once abraham y IRON 240 (27 Fe) MG TABS One tablet by mouth daily FERROUS GLUCONATE [id number] Vianey Reece LPN folic acid 1 mg oral tablet (20 sources) Start: 11-08-2022 End: 07-28-2023 take 2 tablets by mouth once daily Folic Acid 1 mg tablet Discontinued 2 mg PO DAILY November 08, 2022 12:00am July 28, 2023 1:53pm Start: 11-08-2022 End: 07-28-2023 take 2 mg by mouth once daily Folic Acid Discontinued 2 MG PO DAILY November 08, 2022 12:00am July 28, 2023 1:53pm take 1 tablet by lilly th twice daily folic acid 1 mg [...] MG TABS (Atarax) As needed HYDROXYZINE HCL [id number] Mario Taveras MD ipratropium bromide 0.021 mg/actuat nasal spray (7 sources) Anticholinergic Start: 10-16-2016 IPRATROPIUM BR OMIDE 0.03 % SOLN Nasal spray as directed IPRATROPIUM BROMIDE [id number] Kelly Mehta RN LACTOBACILLUS CAPS (6 sources) Start: 10-16-2016 End: 10-16-2016 take 1 tablet by mouth once daily ACIDOPHILUS CAPS One tablet by mouth daily LACTOBACILLUS CAPS [id number] Mario Taveras MD Start: 10-16-2016 take 1 tablet by lilly th once daily ACIDOPHILUS CAPS One tablet by mouth daily LACTOBACILLUS CAPS [id number] Kelly Mehta RN LACTOBACILLUS CAPS (6 sources) Start: 10-16-2016 End: 10-16-2016 take 1 tablet by mouth once daily ACIDOPHILUS CAPS One tablet by mouth daily LACTOBACILLUS CAPS [id number] Mario Taveras MD Start: 10-16-2016 take 1 tablet by lilly th once daily ACIDOPHILUS CAPS One tablet by mouth daily LACTOBACILLUS CAPS [id number] Kelly Mehta RN levoFLOXacin 500 mg oral tablet (20 sources) Quinolone Antimicrobial Start: 06-04-2016 End: 10-23-2017 take 1 tablet by mouth once daily Levofloxacin 500 MG tablet Discontinued 500 mg PO DAILY 6 0 June 04, 2016 1:00am October 23, 2017 9:57am LORazepam 0.5 mg oral tablet (20 sources) Benzodiazepine Start: 10-29-2010 End: 05-09-2014 take 1 tablet by mouth every six hours as needed LORAZEPAM 0.5 MG TABS 1 tablet by mouth Q6H as needed LORAZEPAM [id number] Yara Narvaez metoprolol tartrate 50 mg oral tablet (20 sources) beta-Adrenergic Rigo Start: 05-02-2022 End: 05-14-2024 Metoprolol Tartrate 50 mg tablet Discontinued 0 .ROUTE .COMPLEX 180 3 April 05, 2024 11:14am May 14, 2024 4:39pm TAKE 1 TABLET TWICE A DAY Start: 11-02-2019 End: 11-08-2021 take 1 tablet by mouth twice daily Metoprolol Tartrate 50 mg tablet Discontinued 50 mg PO TWICE A DAY 180 4 December 19, 2020 11:36am November 08, 2021 9:14am Start: 10-27-2018 End: 11-02-2019 Metoprolol Tartrate 100 mg t ablet Discontinued 50 mg PO TWICE A DAY 90 3 October 27, 2018 11:26am November 02, 2019 [...] MOMETASONE FUROATE (20 sources) Corticosteroid Start: 10-30-19 End: 05-09-19 NASONEX 50 MCG/ACT SUSP Take as directed MOMETASONE FUROATE [id number] Vianeyadrienne Reece LPN Start: 10-29-2010 End: 05-09-2014 NASONEX 50 MCG/ACT SUSP Take as directed MOMETASONE FUROATE [id number] Vianey Chevy MUSICAL ENGINEER Start: 10-29-2010 NASONEX 50 MCG /ACT SUSP Take as directed MOMETASONE FUROATE [id number] Yara M Narvaez nabumetone 750 mg oral tablet (20 [...] on above: Take one(1) capsule twice daily. potassium citrate 10 meq extended release oral tablet (6 sources) Start: 03-31-2024 End: 01-04-2025 take 1 tablet by mouth twice daily Potassium Citrate 10 mEq (1,080 mg) tablet extended release Discontinued 10 meq PO TWICE A DAY March 31, 2024 1:00am January 04, 2025 9:29am [id number] (16 sources) End: 10-16-2016 take 1 tablet by mouth once daily PRE-CARSON FORMULA TABS One tablet by mouth daily. [id number] Kelly Mehta RN take 1 tablet by mouth once abraham y PRE- FORMULA TABS One tablet by mouth daily. [id number] Marcelo Gomez take 1 tablet by mouth once abraahm y PRE- FORMULA TABS One tablet by mouth daily. [id number] Ana Hackett [id number] (11 sources) End: 10-16-2016 take 1 tablet by mouth once daily PRE- FORMULA TABS One tablet by mouth daily. [id number] Kelly Mehta RN take 1 tablet by mouth once abraham y PRE- FORMULA TABS One tablet by mouth daily. [id number] Marcelo Gomez take 1 tablet by mouth once abraham y PRE- FORMULA TABS One tablet by mouth daily. [id number] Ana Hackett raNITIdine 150 mg oral tablet [...] tablet by mouth at bedtime RANITIDINE HCL [id number] Mario Taveras MD Sennosides (Senna) 8.6 MG [...] TABS One tablet by mouth daily SIMVASTATIN [id number] Ana Hackett UMECLIDINIUM-VILANT TRISTAN (12 sources) Anticholinergic, beta2-Adrenergic Agonist Start: 10-16-2016 End: 10-16-2016 ANORO ELLIPTA 62.5-25 MCG/INH AEPB as direceted UMECLIDINIUM-VILAN TEROL [id number] Mario Taveras MD Start: 10-16-2016 End: 10-16-2016 ANORO ELLIPTA 62.5-25 MCG/IN H AEPB as direceted UMECLIDINIUM-VILANTEROL [id number] Kelly Mehta RN Start: 10-16-2016 ANORO ELLIPTA 62.5-25 MCG/INH AEPB as direceted UMECLIDINIUM-VILANTEROL [id number] Kelly Mehta RN Problems Active Problems Problem Classification Problem Date Documented Da te Episodic/Chronic Acquired foot deformities (20 sources) Acquired hallux malleus; Translations: [Other hammer toe(s) (acquired), unspecified foot] Onset: 8 05-26-2007 Chronic Acute bronchitis (1 source) Viral bronchitis; Translations: [Acute bronchitis due to other specified organisms] 05-26-2024 Episodic Biliary tract disease (20 sources) Calculus of gallbladder with cholecystitis; Translations: [Calculus of gallbladder with chronic cholecystitis without obstruction] 11-07-2021 Episodic Cardiac dysrhythmias (20 sources) Supraventricular tachycardia; Translations: [Paroxysmal supraventricular tachycardia] Onset: 1 10-29-2010 Chronic Comment on above: RFA 03/2003 Chronic obstructive pulmonary disease and bronchiectasis (10 sources) Acute exacerbation of chronic obstructive airways disease; Translations: [Chronic obstructive pulmonary disease with (acute) exacerbation] Onset: 4 04-09-2024 Chronic Diseases of mouth; excluding dental (1 source) Finding of salivary apparatus; Translations: [Other diseases of salivary glands] Episodic Diseases of white blood cells (20 sources) Neutropenia; Translations: [Neutropenia] Onset: 5 11-22-2014 Chronic E Codes: Fall (12 sources) Fall; Translations: [Unspecified fall, initial encounter] 05-31-2023 Episodic Esophageal disorders (20 sources) Gastroesophageal reflux disease; Translations: [Gastro-esophageal reflux disease without esophagitis] 11-07-2021 Chronic Essential hypertension (20 sources) Essential hypertension; Translations: [Essential (primary) hypertension] Chronic Fluid and electrolyte disorders (16 sources) Hypokalemia; Translations: [Hypokalemia] Onset: 1 10-29-2010 Episodic Fracture of lower limb (3 sources) Closed fracture proximal phalanx, toe ; Translations: [Nondisplaced fracture of proximal phalanx of right lesser toe(s), initial encounter for closed fracture] 01-29-2023 Episodic Fracture of lower limb (18 sources) Bimalleolar fracture of ankle ; Translations: [Displaced bimalleolar fracture of left lower leg, initial encounter for closed fracture] 05-31-2023 Episodic Immunizations and screening for infectious disease (1 source) Suspected disease caused by 2019-nCoV; Translations: [Suspected COVID-19 virus infection] Episodic Influenza (6 sources) Influenza due to Influenza A virus; Translations: [Influenza due to other identified influenza virus with other respiratory manifestations] 06-28-2024 Episodic Nonspecific chest pain (12 sources) Chest wall pain; Translations: [Other chest pain] 09-14-2023 Episodic Other aftercare (6 sources) Long-term current use of anticoagulant; Translations: [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 anticoagulants] 09-14-2023 Episodic Other and ill-defined heart disease (4 sources) Right cardiac ventricular dilatation; Translations: [Cardiomegaly] 01-04-2025 Chronic Other and ill-defined heart disease (1 source) Cardiomegaly; Translations: [Cardiomegaly] Onset: Chronic Other injuries and conditions due to external causes (1 source) Injury of toe of right foot; Translations: [Unspecified injury of right foot, initial encounter] 01-29-2023 Episodic Other injuries and conditions due to external causes (1 source) Injury of toe of left foot; Translations: [Unspecified injury of left foot, initial encounter] 05-18-2021 Episodic Other injuries and conditions due to external causes (6 sources) Other, multiple and ill-defined fractures of lower limb, closed; Translations: [Fracture of left knee region] 06-08-2023 Episodic Other lower respiratory disease (12 sources) Cough; Translations: [Cough] Episodic Other lower respiratory disease (1 source) Lower respiratory tract infection; Translations: [Unspecified acute lower respiratory infection] 09-11-2023 Episodic Other lower respiratory disease (1 source) Cough; Translations: [Acute cough] 05-26-2024 Episodic Other nutritional; endocrine; and metabolic disorders (8 sources) Body mass index (BMI) 34.0-34.9, adult; Translations: [Body mass index (BMI) 34.0-34.9, adult] Onset: 7 10-16-2016 Chronic Other nutritional; endocrine; and metabolic disorders (20 sources) Obesity; Translations: [Obesity, unspecified] 11-07-2021 Chronic Other nutritional; endocrine; and metabolic disorders (2 sources) Obesity, unspecified; Translations: [Obesity, unspecified] 07-28-2023 Chronic Other screening for suspected conditions (not mental disorders or infectious disease) (17 sources) Raised cardiac enzyme or marker; Translations: [Other specified abnormal findings of blood chemistry] Onset: 4 07-28-2023 Episodic Other upper respiratory disease (20 sources) Chronic rhinitis; Translations: [Chronic rhinitis] Onset: 8 06-22-2007 Chronic Other upper respiratory infections (2 sources) Chronic sinusitis; Translations: [Chronic sinusitis, unspecified] Chronic Other upper respiratory infections (3 sources) Acute upper respiratory infection; Translations: [Acute upper respiratory infection, unspecified] Episodic Phlebitis; thrombophlebitis and thromboembolism (14 sources) Acute deep vein thrombosis of lower limb; Translations: [Acute embolism and thrombosis of unspecified deep veins of left lower extremity] 07-29-2023 Episodic Pneumonia (except that caused by tuberculosis or sexually transmitted disease) (20 sources) Pneumonia; Translations: [Pneumonia, unspecified organism] 06-05-2016 Episodic Pulmonary heart disease (20 sources) Pulmonary embolism; Translations: [Other pulmonary embolism without acute cor pulmonale] 07-28-2023 Episodic Rheumatoid arthritis and related disease (20 sources) Rheumatoid arthritis, unspecified; Translations: [Rheumatoid arthritis] Onset: 7 06-22-2007 Chronic Substance-related disorders (20 sources) Tobacco user; Translations: [Nicotine dependence, unspecified, uncomplicated] Onset: 8 06-30-2007 Chronic Unclassified (5 sources) Preoperative cardiovascular examination ; Translations: [Encounter for preprocedural cardiovascular examination] Onset: 7 10-11-2016 Unclassified (2 sources) Call and set up an appointment to be seen at the physicians first availability Unclassified (1 source) Acute cough; Translations: [Acute cough] Onset: 5 Unclassified (1 source) Cough, unspecified; Translations: [Cough, unspecified] Onset: 5 Viral infection (1 source) Viral disease; Translations: [Viral infection, unspecified] Episodic Past or Other Problems Problem Classification Problem Date Documented Date Episodic/Chronic Cardiac dysrhythmias (20 sources) Palpitations; Translations: [Palpitations] Onset: 06-22-2007 06-22-2007 Episodic Deficiency and other anemia (20 sources) Anemia; Translations: [Iron deficiency anemia] Onset: 05-09-2014 Resolved: 10-16-2016 05-09-2014 Episodic Deficiency and other anemia (4 sources) Iron deficiency anemia; Translations: [Iron deficiency anemia, unspecified] Onset: 07-25-2015 07-25-2015 Episodic Other circulatory disease (10 sources) Electrocardiogram abnormal; Translations: [Abnormal electrocardiogram [ECG] [EKG]] Onset: 10-29-2010 10-29-2010 Episodic Other connective tissue disease (20 sources) Calcaneal spur; Translations: [Calcaneal spur, unspecified foot] Onset: 07-22-2006 07-22-2006 Episodic Other lower respiratory disease (1 source) Shortness of breath; Translations: [Shortness of breath] Onset: 05-02-2024 Episodic Other nervous system disorders (9 sources) Abnormal gait; Translations: [Unspecified abnormalities of gait and mobility] Onset: 07-15-2007 Resolved: 07-15-2007 07-15-2007 Episodic Screening and history of mental health and substance abuse codes (1 source) Personal history of nicotine dependence; Translations: [Personal history of nicotine dependence] Onset: 04-09-2024 Episodic Skin and subcutaneous tissue infections (20 [...] Test Name Value Interpretation Reference Range Facility [facility] 01-09-2025 CNOV Office Visit (WOUCA) -------- KIKO GODFREY ([id number]) 1950 F Date Time Provider Department 01/09/25 10:30 AM FAISAL MANCINI During your visit today, we recorded the following information about you: Temperature Pulse Respiration Blood pressure 98 degrees 64/minute 20/minute 146/82 Weight 94.8 kg Faisal Mancini APRN.[employer] 01/09/2025 12:31 PM Signed [facility] Subjective Kiko Ramirezbethanieamarjit is a 74 year old female. Patient presents with: Cough: Chest congestion, Shortness of Breath x 6 days HPI Nontoxic-appearing 74-year-old female presents urgent care chief complaint cough chest congestion. Duration of symptoms 6 days. Associated symptoms cough chest congestion sinus pressure. OTC medications without symptom relief. Sick contacts grandchildren. Seen by PCP diagnosed with allergies per denies any chest pain shortness of breath or hemoptysis. No fevers. Past medical history prescription medications allergies reviewed Review of Systems Constitutional: Negative for chills, diaphoresis, fatigue and fever. HENT: Positive for rhinorrhea. Negative for congestion, drooling, ear discharge, ear pain, sinus pressure, sinus pain, sneezing, sore throat and trouble swallowing. Eyes: Negative for pain, discharge, redness, itching and visual disturbance. Respiratory: Positive for cough. Negative for chest tightness, shortness of breath and wheezing. Cardiovascular: Negative for chest pain. Gastrointestinal: Negative for abdominal distention, abdominal pain, blood in stool, constipation, diarrhea, nausea and vomiting. Genitourinary: Negative for difficulty urinating and dysuria. Musculoskeletal: Negative for arthralgias, joint swelling, neck pain and neck stiffness. Skin: Negative for rash. Neurological: Negative for dizziness, weakness, numbness and headaches. Objective BP 146/82 Pulse 64 Temp 36.7 ?C (98 ?F) Resp 20 Wt 94.8 kg (208 lb 15.9 oz) SpO2 99% Physical Exam Constitutional: Appearance: Normal appearance. HENT: Head: Normocephalic. Jaw: No trismus, tenderness, swelling or pain on movement. Nose: No congestion. Mouth/Throat: Mouth: Mucous membranes are moist. Pharynx: Oropharynx is clear. Uvula midline. No oropharyngeal exudate or posterior oropharyngeal erythema. Eyes: Conjunctiva/sclera: Conjunctivae normal. Cardiovascular: Rate and Rhythm: Normal rate. Pulmonary: Effort: Pulmonary effort is normal. Breath sounds: Wheezing and rhonchi present. No rales. Abdominal: Palpations: Abdomen is soft. Tenderness: There is no abdominal tenderness. There is no guarding or rebound. Musculoskeletal: General: Normal range of motion. Cervical back: Normal range of motion and neck supple. No edema, erythema or rigidity. No pain with movement. Normal range of motion. Lymphadenopathy: Cervical: No cervical adenopathy. Skin: General: Skin is warm. Findings: No rash. Neurological: General: No focal deficit present. Mental Status: She is alert and oriented to person, place, and time. Mental status is at baseline. {ASSESSMENT/PLAN: 1. Acute cough - ICD9: 786.2, ICD10: R05.1 (primary diagnosis) - XR CHEST 2V FRONTAL/LAT 2. Sinobronchitis - ICD9: 473.9, 490, ICD10: J32.9, J40 No acute findings noted on imaging. Treat as sinobronchitis. Placed on prednisone and cefdinir. Patient was educated on supportive therapies. Patient will follow up with primary care provider 2 to 3 days for reevaluation patient was instructed to immediately proceed to emergency room for any new, worsening, or symptoms lasting longer than anticipated. The patient's clinical presentation is otherwise unremarkable at this time. Based on exam and clinical finding, the patient is stable for discharge. Plan of care was discussed with patient. Patient verbalizes understanding and agrees to plan of care. This note was generated using [employer] software. It may contain errors in wording, punctuation, or spelling. Faisal Mancini APRN.[employer] History and Record Review Clinical information obtained from an independent historian. History obtained from or confirmed by: parent. External record(s) reviewed: prior outpatient record. Disposition The patient was discharged. Procedures Allergies As of Date: 01/09/2025 Noted Allergy Reaction AMOXICILLIN-POT CLAVULANATE 04/04/2016 8 - GI Upset DOXYCYCLINE 05/18/2021 16 - Unknown Comments: Makes her very ill when she takes it Date Reviewed: 01/09/2025 Reviewed by: Faisal Mancini APRN.[employer] - Fully Assessed Reason for Visit: Cough [28] Cmt: Chest congestion, Shortness of Breath x 6 days Primary Visit Diagnosis:Acute cough [R05.1] Other Visit Diagnosis:Sinobronchitis [J32.9, J40] Order(s):XR CHEST 2V FRONTAL/LAT [1196377] Order #: [id number] FUTURE predniSONE (DELTASONE) 20 mg tabletTake 2 tablets (more content not included)... [facility] ZACKARY Tele[facility] ([facility]OU[facility]) -------- KIKO GODFREY ([id number]) 1950 F Date Time Provider Department 01/09/25 FAISAL MANCINI During your visit today, we recorded the following information about you: Faisal Mancini APRN.CNP 01/09/2025 12:30 PM Signed Please inform patient x-ray is negative. Antibiotic and steroid sent to pharmacy. Faisal Mancini APRN.Ayla Bonilla MA 01/09/2025 1:41 PM Signed Patient notified. Ayla Luevano MA Allergies As of Date: 01/09/2025 Noted Allergy Reaction AMOXICILLIN-POT CLAVULANATE 04/04/2016 8 - GI Upset DOXYCYCLINE 05/18/2021 16 - Unknown Comments: Makes her very ill when she takes it Date Reviewed: 01/09/2025 Reviewed by: [place], Faisal, DRYLAND FARMER.[employer] - Fully Assessed Prescriptions as of 01/09/2025 - azelastine 0.1% nasal spray USE 1-2 sprays every 12 hours to reduce allergy reaction (antihistamine) and reduce risk of getting covid (binds to ACE2 receptor) - fluticasone (FLONASE) 50 mcg/actuation nasal spray USE 2 SPRAYS IN EACH NOSTRIL ONCE A DAY TO REDUCE FOR ALLERGY /IRRITANT DRAINAGE AND REDUCE SWELLING - Ipratropium Archie (ATROVENT) 21 mcg (0.03 %) nasal spray USE 1 TO 2 SPRAYS IN each nostril every 6 hours as needed to dry nose and reduce cough, runny nose - predniSONE (DELTASONE) 20 mg tablet Take 2 tablets by mouth once daily for 5 days. - cefdinir (OMNICEF) 300 mg capsule Take 1 capsule by mouth two times a day for [...] twice daily. Problem List As Of Date 01/09/2025 Noted Resolved RHEUMATOID ARTHRITIS [M06.9] 07/22/2006 CALCANEAL SPUR [M77.30] 07/22/2006 ONYCHIA OF TOE [L03.039] 04/17/2007 OTHER HAMMER TOE [M20.40] 05/26/2007 TOBACCO USE DISORDER [F17.200] 06/22/2007 CHRONIC RHINITIS [J31.0] 06/22/2007 PALPITATIONS [R00.2] 06/22/2007 ABNORMALITY OF GAIT [R26.9] 07/15/2007 07/15/2007 Encounter Status:Closed by AYLA LUEVANO on 01/09/25 Normal [facility] XR CHEST 2V FRONTAL/LATon XR CHEST 2V FRONTAL/LAT * * *Final Report* * * DATE OF EXAM: Jan 09 2025 10:57AM WOX [id number] - XR CHEST 2V FRONTAL/LAT / PROCEDURE REASON: Acute cough * * * * Physician Interpretation * * * * EXAMINATION: CHEST RADIOGRAPH (2 VIEW FRONTAL and LATERAL) CLINICAL HISTORY: Acute cough MQ: [id number]_6 EXAM DATE/TIME: 01/09/2025 10:57 AM COMPARISON: Chest radiograph 05/26/2024 prior RESULT: Lines, tubes, and devices: None. Lungs and pleura: No consolidation. No lung mass. No pleural effusion. No pneumothorax. Cardiomediastinal silhouette: Normal cardiomediastinal silhouette. Atherosclerotic calcifications of the aortic arch. Bones and soft tissues: Mild thoracic spondylosis. IMPRESSION: No acute radiographic abnormality. 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[employer]: [employer] Transcribe Date/Time: Jan 09 2025 11:40A Dictated by : DANI MALIN MD This examination was interpreted and the report reviewed and electronically signed by: DANI MALIN MD on Jan 09 2025 11:41AM EST [id number] Normal [facility] Absolute lymphocyte countOrd ered By: Sheeba Velasco on 01-04-2025 Lymphocytes Auto (Unsp spec) [#/Vol] 1.39 10*3/uL 0.83-4.51 [facility] Absolute neutrophil countOrd ered By: Sheeba Velasco on 01-04-2025 Neutrophils (Bld) [#/Vol] 2.3 10*3/uL 2.0-7.7 [facility] Anion gap in Serum or Plasma Ordered By: Sheeba Velasco on 01-04-2025 Anion gap [Moles/Vol] 11 mmol/L 5- [facility] Automated lymphocyte count a s percentage of total leukocytesOrdered By: Sheebalucie Velasco on 01-04-2025 Lymphocytes/100 WBC Auto (Unsp spec) 31.1 % - [facility] BUN/creatinine ratioOrdered By: [facility] Rod on 01-04-2025 Urea nitrogen/Creatinine [Mass ratio] 11.5 mg/mg 10- [facility] Basophil percentageOrdered B y: Sheeba Velasco on 01-04-2025 Basophils/100 WBC (Bld) 0.9 % 0-1 [facility] Bilirubin, totalOrdered By: Sheebalucie Velasco on 01-04-2025 Bilirubin [Mass/Vol] 0.32 mg/dL 0.00-1.30 [facility] CBC W/Diff, Automatedon 12-14 Absolute Lymph 1.39 X10 3/uL Normal 0.83-4.51 [facility] Comment on above: Performed By: #### L 100.0100, L500.4050 #### [facility] [address] [place], [address] Absolute Neut 2.3 X10 3/uL Normal 2.0-7.7 [facility] Comment on above: Performed By: #### L 100.0100, L500.4050 #### [facility] [address] [place], [address] Basophils/100 WBC (Bld) 0.9 % Normal 0-1 [facility] Comment on above: Performed By: #### L 100.0100, L500.4050 #### [facility] [address] [place], [address] Eosinophils/100 WBC (Bld) 3.1 % Normal 0-5 [facility] Comment on above: Performed By: #### L 100.0100, L500.4050 #### [facility] [address] [place], [address] Erythrocyte distribution width (RBC) [Ratio] 17.6 % High 11.6-14.6 [facility] Comment on above: Performed By: #### L 100.0100, L500.4050 #### [facility] [address] [place], [address] Hematocrit (Bld) [Volume fraction] 38.2 % Normal 37-47 [facility] Comment on above: Performed By: #### L 100.0100, L500.4050 #### [facility] [address] [place], [address] Hemoglobin (Bld) [Mass/Vol] 11.7 g/dL Low 12.0-15.0 [facility] Comment on above: Performed By: #### L 100.0100, L500.4050 #### [facility] [address] [place], [address] IG% 0.200 Normal 0.0-0.9 [facility] Comment on above: Result Comment: IG% - Immature Granulocytes (promyelocytes, myelocytes and metamyelocytes) > 1% indicates that a LEFT SHIFT is Present. Performed By: #### L 100.0100, L500.4050 #### [facility] [address] [place], [address] Lymphocytes/100 WBC (Bld) 31.1 % Normal 19-41 [facility] Comment on above: Performed By: #### L 100.0100, L500.4050 #### [facility] [address] [place], [address] MCH (RBC) [Entitic mass] 26.8 pg Low 27.0-32.0 [facility] Comment on above: Performed By: #### L 100.0100, L500.4050 #### [facility] [address] [place], [address] MCHC (RBC) [Mass/Vol] 30.6 g/dL Low 32-36 [facility] Comment on above: Performed By: #### L 100.0100, L500.4050 #### [facility] [address] [place], [address] MCV (RBC) [Entitic vol] 87.6 fL Normal 81-99 [facility] Comment on above: Performed By: #### L 100.0100, L500.4050 #### [facility] [address] [place], [address] Monocytes/100 WBC (Bld) 13.2 % High 0-10 [facility] Comment on above: Performed By: #### L 100.0100, L500.4050 #### [facility] [address] [place], [address] Neutrophils/100 WBC (Bld) 51.5 % Normal 47-70 [facility] Comment on above: Performed By: #### L 100.0100, L500.4050 #### [facility] [address] [place], [address] Nucleated RBC (Bld) [#/Vol] 0 10*3/uL Normal 0-5 [facility] Comment on above: Performed By: #### L 100.0100, L500.4050 #### [facility] [address] [place], [address] Platelet mean volume (Bld) [Entitic vol] 10.4 fL Normal 6.2-12.0 [facility] Comment on above: Performed By: #### L 100.0100, L500.4050 #### [facility] [address] [place], [address] Platelets (Bld) [#/Vol] 236 10*3/uL Normal 150-450 [facility] Comment on above: Performed By: #### L 100.0100, L500.4050 #### [facility] [address] [place], [address] RBC (Bld) [#/Vol] 4.36 10*6/uL Normal 4.2-5.4 [facility] Comment on above: Performed By: #### L 100.0100, L500.4050 #### [facility] [address] [place], [address] RDW SD 54.9 fl High 35.1-43.9 [facility] Comment on above: Performed By: #### L 100.0100, L500.4050 #### [facility] [address] [place], [address] WBC (Bld) [#/Vol] 4.5 10*3/uL Normal 4.4-11.0 [facility] Comment on above: Performed By: #### L 100.0100, L500.4050 #### [facility] [address] [place], [address] Carbon dioxide, total [Moles /volume] in Central venous bloodOrdered By: Sheeba Velasco on 01-04-2025 CO2 [Moles/Vol] 22.2 mmol/L 21.0-32.0 [facility] Card[facility] Visit Reporton Cardiology Visit Report [facility] [address] [place] [place] [address] OFFICE VISIT Date of Service: 01/04/25 MR#: [id number] Acct: [id number] Name: KIKO GODFREY Rep #: [id number] : 1950 Provider: TATIANA Ga Age/Sex: 74/F [place] [facility] [place] Status: Signed HPI HPI History of Present Illness Details: KIKO GODFREY, is a 74 F who presents to the office today for a cardiovascular outpatient follow-up. She has a history of mitral valve prolapse, supraventricular tachycardia- status post radiofrequency ablation in 2002, and hypertension. She had a bilateral PE in July of 2023, and was placed on Eliquis 5mg twice daily. PE was from a broken leg. From a cardiac standpoint, patient is doing well. She does not have any chest discomfort/heaviness/tig htness. She does not have any worsening symptoms of shortness of breath. She does not have any orthopnea. She denies PND. She does not have any symptoms of congestive heart failure. She does not have any palpitations that she is aware of. She does not have any lightheadedness or dizziness. She does not have any near-syncope or syncope. She does not have any lower extremity edema. She does not have any symptoms of claudication. 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 by: Self Is patient in pain?: No Allergies doxycycline Adverse Reaction (Verified 01/04/25 09:27) PT UNSURE OF REACTION Medications ???Medication ???Instructions ???Recorded ???Confirmed ???Type hydroxychloroquine 200 mg tablet 200 mg PO BIDCM 09/18/13 01/04/25 History pantoprazole 40 mg tablet,delayed 40 mg PO DAILY 02/26/19 01/04/25 History release famotidine 20 mg tablet 20 mg PO BID 11/08/21 01/04/25 His tory blood pressure monitor #1 ea 11/08/22 01/28/24 Rx leucovorin calcium 15 mg tablet 15 mg PO QWEEK counteract the 10/1301/04/25 History methotrexate prednisone 2.5 mg tablet 2.5 mg PO DAILY 11/08/22 01/04/25 History Held on 04/01/24. Instructions: Restart once your prednisone taper is completed sulfasalazine 500 mg 1,000 mg PO BID 07/28/23 01/04/25 History tablet,delayed release tramadol 50 mg tablet 50 - 100 mg PO Q6H PRN PRN pain 01/04/25 History mecobalamin (vitamin B12) 5,000 3,000 mcg PO QDAY 01/06/24 5 History mcg chewable tablet prednisone 10 mg tablet 10 mg PO DAILY #30 tabs 04/01/24 0 01/04/25 Rx metoprolol tartrate 50 mg tablet See Rx Instructions .Route 5 01/04/25 Rx .COMPLEX #180 tabs methotrexate sodium 25 mg/mL 7.5 mg subcut QWEEK arthritis 12/1401/04/25 History injection solution Have you fallen in the past year?: No PFSH Medical History Anxiety and depression Schizophrenia [...] not use ROS Const Const: Negative for fatigue or weakness ENT ENT: Positive for dizziness (positional); Negative for balance problems Cardio Chest Pain: No Palpitations: No Edema: None Muscle aches with walking: None Resp Respiratory: Negative for SOB with activity, SOB at rest or SOB orthopnea SOB lying down GI GI: Positive for heartburn; Negative nausea or vomiting Musc Musc: Negative for muscle weakness or balance problems Neuro Neuro: Positive for dizziness (positional); Negative for lightheadedness, near syncope, syncope or weakness Endo Endo: Negative for fatigue Cardiology Exam Const Appearance: cooperative and no acute distress Nutritional Appearance: average body habitus and obese O (more content not included)... Normal [facility] Chloride assayOrdered By: Tatiana Velasco on 01-04-2025 Chloride [Moles/Vol] 108 mmol/L 98-108 [facility] Comprehensive Metabolic Prof ilon 01-04-2025 Albumin [Mass/Vol] 4.0 g/dL Normal 3.4-4.8 [facility] Comment on above: Performed By: #### L 100.0100, L500.4050 ####[facility] [address] [place], [address] Albumin/Globulin [Mass ratio] 1.3 {ratio} Normal 0.9-2.4 [facility] Comment on above: Performed By: #### L 100.0100, L500.4050 ####[facility] [address] [place], [address] ALK PHOS 69 U/L Normal 35-104 [facility] Comment on above: Performed By: #### L 100.0100, L500.4050 ####[facility] [address] [place], [address] ALT [Catalytic activity/Vol] 8 U/L Normal <=34 [facility] Comment on above: Performed By: #### L 100.0100, L500.4050 ####[facility] [address] [place], [address] AST [Catalytic activity/Vol] 24 U/L Normal <=31 [facility] Comment on above: Performed By: #### L 100.0100, L500.4050 ####[facility] [address] [place], [address] Bilirubin [Mass/Vol] 0.32 mg/dL Normal 0.00-1.30 [facility] Comment on above: Performed By: #### L 100.0100, L500.4050 ####[facility] [address] [place], [address] BUN/CRE 11.5 RATIO Normal 10-20 [facility] Comment on above: Performed By: #### L 100.0100, L500.4050 ####[facility] [address] [place], [address] Calcium [Mass/Vol] 9.2 mg/dL Normal 7.6-11.0 [facility] Comment on above: Performed By: #### L 100.0100, L500.4050 ####[facility] [address] [place], [address] Chloride [Moles/Vol] 108 mmol/L Normal 98-108 [facility] Comment on above: Performed By: #### L 100.0100, L500.4050 ####[facility] [address] [place], [address] CO2 [Moles/Vol] 22.2 mmol/L Normal 21.0-32.0 [facility] Comment on above: Performed By: #### L 100.0100, L500.4050 ####[facility] [address] [place], [address] GAP 11 Normal 5-15 [facility] Comment on above: Performed By: #### L 100.0100, L500.4050 ####[facility] [address] [place], [address] GFR/1.73 sq M.predicted among non-blacks MDRD (S/P/Bld) [Vol rate/Area] 61 mL/min/{1.73_m2} Normal >60 [facility] Comment on above: Result Comment: mL/m in/1.73m2 CKD-EPI Creatinine Equation (2020) Performed By: #### L 100.0100, L500.4050 ####[facility] [address] [place], [address] Globulin (S) [Mass/Vol] 3.1 g/dL Normal 2.2-4.2 [facility] Comment on above: Performed By: #### L 100.0100, L500.4050 ####[facility] [address] [place], [address] Potassium [Moles/Vol] 3.7 mmol/L Normal 3.3-5.1 [facility] Comment on above: Performed By: #### L 100.0100, L500.4050 ####[facility] [address] [place], [address] Sodium [Moles/Vol] 142 mmol/L Normal 133-145 [facility] Comment on above: Performed By: #### L 100.0100, L500.4050 ####[facility] [address] [place], [address] T PROT 7.1 g/dL Normal 5.9-8.4 [facility] Comment on above: Performed By: #### L 100.0100, L500.4050 ####[facility] [address] [place], [address] Creatinine [Mass/Vol] 0.98 mg/dL Normal 0.70-1.20 [facility] Comment on above: Performed By: #### L 100.0100, L500.4050 ####[facility] [address] [place], [address] Glucose [Mass/Vol] 111 mg/dL High 70-99 [facility] Comment on above: Performed By: #### L 100.0100, L500.4050 ####[facility] [address] [place], [place], [address] Urea nitrogen [Mass/Vol] 11 mg/dL Normal 4-19 [facility] Comment on above: Performed By: #### L 100.0100, L500.4050 ####[facility] [address] [facility] [place], [place], [id number] Eosinophil percentageOrdered By: Sheeba Velasco on 01-04-2025 Eosinophils/100 WBC (Bld) 3.1 % 0-5 [facility] Erythrocyte distribution wid th ratioOrdered By: [facility] on 01-04-2025 Erythrocyte distribution width (RBC) [Ratio] 17.6 % High 11.6-14.6 [facility] Erythrocyte distribution wid th standard deviationOrdered By: [facility] Rod on 01-04-2025 Erythrocyte distribution width (RBC) [Ratio] 54.9 fl High 35.1-43.9 [facility] Glomerular filtration rate ( GFR) estimation/1.73 sq m using serum, plasma, or whole bOrdered By: Sheebalucie Velasco on 01-04-2025 GFR/1.73 sq M.predicted among non-blacks MDRD (S/P/Bld) [Vol rate/Area] 61 mL/min/{1.73_m2} >60 [facility] Comment on above: mL/min/1.73m2 CKD-EP I Creatinine Equation (2020) Hematocrit Auto (Bld) [Volum e fraction]Ordered By: [facility] Rod on 01-04-2025 Hematocrit (Bld) [Volume fraction] 38.2 % 37-47 [facility] Hemoglobin measurementOrdere d By: Sheeba Velasco on 01-04-2025 Hemoglobin (Bld) [Mass/Vol] 11.7 g/dL Low 12.0-15.0 [facility] Immature granulocytes/100 WB C Auto (Bld)Ordered By: Sheeba Velasco on 01-04-2025 Immature granulocytes/100 WBC (Bld) 0.200 % 0.0-0.9 [facility] Comment on above: IG% - Immature Granu locytes (promyelocytes, myelocytes and metamyelocytes) > 1% indicates that a LEFT SHIFT is Present. Laboratory - Chemistry and C hemistry - challengeOrdered By: Sheeba Velasco on 01-04-2025 AST [Catalytic activity/Vol] 24 U/L <32 [facility] MCV (mean corpuscular volume ) determinationOrdered By: Sheeba Velasco on 01-04-2025 MCV (RBC) [Entitic vol] 87.6 fL 81-99 [facility] Mean corpuscular hemoglobin (MCH) determinationOrdered By: Sheeba Velasco on 01-04-2025 MCH (RBC) [Entitic mass] 26.8 pg Low 27.0-32.0 [facility] Mean corpuscular hemoglobin concentration (MCHC) determinationOrdered By: Sheeba Velasco on 01-04-2025 MCHC (RBC) [Mass/Vol] 30.6 g/dL Low 32-36 [facility] Mean platelet volume determi nationOrdered By: Sheeba Velasco on 01-04-2025 Platelet mean volume (Bld) [Entitic vol] 10.4 fL 6.2-12.0 [facility] Monocyte percentageOrdered B y: Sheeba Velasco on 01-04-2025 Monocytes/100 WBC (Bld) 13.2 % High 0-10 [facility] Neutrophil percentageOrdered By: Sheeba Velasco on 01-04-2025 Neutrophils/100 WBC (Bld) 51.5 % 47-70 [facility] Nucleated red blood cell per centageOrdered By: Sheeba Velasco on 01-04-2025 Nucleated RBC/100 WBC (Bld) [Ratio] 0 % 0-5 [facility] Platelet countOrdered By: Tatiana Velasco on 01-04-2025 Platelets (Bld) [#/Vol] 236 10*3/uL 150-450 [facility] Potassium measurement (mass/ volume)Ordered By: Sheeba Velasco on 01-04-2025 Potassium (Unsp spec) [Mass/Vol] 3.7 mmol/L 3.3-5.1 [facility] RBC Auto (Bld) [#/Vol]Ordere d By: Sheeba Velasco on 01-04-2025 RBC (Bld) [#/Vol] 4.36 10*6/uL 4.2-5.4 [facility] Serum creatinine measurement (mass/volume)Ordered By: Sheeba Velasco on 01-04-2025 Creatinine [Mass/Vol] 0.98 mg/dL 0.70-1.20 [facility] Serum globulin measurementOr dered By: Sheeba Velasco on 01-04-2025 Globulin (S) [Mass/Vol] 3.1 g/dL 2.2-4.2 [facility] Serum glucose measurement (m ass/volume)Ordered By: Sheeba Velasco on 01-04-2025 Glucose [Mass/Vol] 111 mg/dL High 70-99 [facility] Serum or plasma alanine cano otransferase (ALT) measurementOrdered By: Sheeba Velasco on 01-04-2025 ALT [Catalytic activity/Vol] 8 U/L <35 [facility] Serum or plasma albumin barbara urement (mass/volume)Ordered By: Sheeba Velasco on 01-04-2025 Albumin [Mass/Vol] 4.0 g/dL 3.4-4.8 [facility] Serum or plasma albumin/glob ulin mass ratioOrdered By: Sheeba Velasco on 01-04-2025 Albumin/Globulin [Mass ratio] 1.3 {ratio} 0.9-2.4 [facility] Serum or plasma alkaline paulino sphatase measurementOrdered By: Sheeba Velasco on 01-04-2025 ALP [Catalytic activity/Vol] 69 U/L 35-104 [facility] Serum or plasma calcium barbara urement (mass/volume)Ordered By: Sheeba Velasco on 01-04-2025 Calcium [Mass/Vol] 9.2 mg/dL 7.6-11.0 [facility] Serum or plasma urea nitroge n measurement (mass/volume)Ordered By: Sheeba Velasco on 01-04-2025 Urea nitrogen [Mass/Vol] 11 mg/dL 4-19 [facility] Sodium levelOrdered By: Darrell Velasco on 01-04-2025 Sodium [Moles/Vol] 142 mmol/L 133-145 [facility] Total proteinOrdered By: Josh Velasco on 01-04-2025 Protein [Mass/Vol] 7.1 g/dL 5.9-8.4 [facility] White blood cell (WBC) count Ordered By: Sheeba Velasco on 01-04-2025 WBC (Bld) [#/Vol] 4.5 10*3/uL 4.4-11.0 [facility] Breast imaging reportOrdered By: Craig Lindo on 12-23-2024 Study report [facility] Imaging Services [address] [place] [address] SCRN MAMM (CAD)W/VERITO BILAT MR#: [id number] Acct: [id number] Name: KIKO GODFREY Rep #: [id number] : 1950 F 74 From: Art Lindo MD PCP: Dr. Eric Lozano MD Status: [facility] Study:SCRN MAMM (CAD)W/VERITO BILAT Date of Exa m: 12/23/24 Exam# [id number] Ordering Dr: Arnoldo Lozano MD EXAM: SCRN MAMM (CAD)W/VERITO BILAT DATE: 12/23/2024 CLINICAL HISTORY: F, Age 74 y/o , ROUTINE Mother with breast cancer. Prior right stereotactic breast biopsy and bilateralexcisional breast biopsies. TECHNIQUE: Procedure Code: BISMWCADBTOM Modality: MG Procedure: SCRN MAMM (CAD)W/VERITO BILAT COMPARISON: Prior exam(s) dated November 11, 2022.. FINDINGS: TISSUE DENSITY: There are scattered areas of fibroglandular density. Bilateral Breast Mammographic Findings: No significant masses, calcifications or other abnormalities are identified. Stable fat containing axillary lymph nodes. No suspicious masses, areas of developing architectural distortion, or suspicious calcifications. There has been no significant interval change. BI/SCRN MAMM (CAD)W/VERITO BILAT IMPRESSION: Stable bilateral screening mammogram. OVERALL FINAL ASSESSMENT BI-RADS 2: BENIGN RECOMMENDATION: Routine annual follow-up in 1 Year A letter with findings and recommendations will be mailed to the patient. Reading Location: [id number] CC: Dr. Eric Lozano MD ~ 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[employer]: Signed [facility] SCRN MAMM (CAD)W/VERITO BILATo n 12-23-2024 SCRN MAMM (CAD)W/VERITO BILAT [facility] Imaging Services [address] [place] [address] SCRN MAMM (CAD)W/VERITO BILAT MR#: [id number] Acct: [id number] Name: KIKO GODFREY Rep #: [id number] : 1950 F 74 From: Craig sampson MD PCP: Dr. Eric Lozano MD Status: [facility] Study: SCRN MAMM (CAD)W/VERITO BILAT Date of Exam: 12/13 05/08 Exam# [id number] Ordering Dr: Eric Lozano MD EXAM: SCRN MAMM (CAD)W/VERITO BILAT DATE: 12/23/2024 CLINICAL HISTORY: F, Age 74 y/o , ROUTINE Mother with breast cancer. Prior right stereotactic breast biopsy and bilateral excisional breast biopsies. TECHNIQUE: Procedure Code: BISMWCADBTOM Modality: MG Procedure: SCRN MAMM (CAD)W/VERITO BILAT COMPARISON: Prior exam(s) dated November 11, 2022.. FINDINGS: TISSUE DENSITY: There are scattered areas of fibroglandular density. Bilateral Breast Mammographic Findings: No significant masses, calcifications or other abnormalities are identified. Stable fat containing axillary lymph nodes. No suspicious masses, areas of developing architectural distortion, or suspicious calcifications. There has been no significant interval change. BI/SCRN MAMM (CAD)W/VERITO BILAT IMPRESSION: Stable bilateral screening mammogram. OVERALL FINAL ASSESSMENT BI-RADS 2: BENIGN RECOMMENDATION: Routine annual follow-up in 1 Year A letter with findings and recommendations will be mailed to the patient. Reading Location: [id number] CC: Dr. Eric Lozano MD 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Household Appliances: Signed Normal [facility] Quantiferon TB-Gold+on 10-22 QFT MITOGEN EJANNIE > 10.00 Normal . [facility] Comment on above: Performed By: #### L 3400.8000 ####[facility] [address] [place], [address] QFT NIL VALUE 0.04 IU/mL Normal . [facility] Comment on above: Performed By: #### L 3400.8000 ####[facility] [address] [place], [address] QFT TB GOLD+ Comment Normal . [facility] Comment on above: Result Comment: Venkatesh tiFERON-TB Gold Plus is a qualitative indirect test for M tuberculosis infection (including disease) and is intended for use in conjunction with risk assessment, radiography, and other medical and diagnostic evaluations. The QuantiFERON-TB Gold Plus result is determined by subtracting the Nil value from either TB antigen (Ag) value. The Mitogen tube serves as a control for the test. Performed By: #### L 3400.8000 ####[facility] [address] [facility] [place], [address] QFT TB POS CRIT Negative Normal Negative [facility] Comment on above: Result Comment: No r esponse to M tuberculosis antigens detected. Infection with M tuberculosis is unlikely, but high risk individuals should be considered for additional testing (ATS/IDSA/CDC Clinical Practice Guidelines, 2017). The reference range is an Antigen minus Nil result of <0.35 IU/mL. The specimen received for QuantiFERON testing was incubated by the ordering institution. Specific procedures outlined in our Directory of Services and in the package insert for the QuantiFERON Gold (In Tube) test must be followed to enable for proper stimulation of cells for the production of interferon gamma. Chemiluminescence immunoassay methodology Performed at: [facility] [address] [id number] Real Estate Operations Manager: Wilfredo Apodaca PhD, Phone: [phone] Performed By: #### L 3400.8000 ####[facility] [address] [place], [address] QFT TB1+ AG JEANNIE 0.07 IU/mL Normal . [facility] Comment on above: Performed By: #### L 3400.8000 ####[facility] [address] [place], [place], [id number] QFT TB2+ AG JENANIE 0.06 IU/mL Normal . [facility] Comment on above: Performed By: #### L 3400.8000 ####[facility] [address] [place], [address] Qualitative QuantiFERON-TB g old in tube testOrdered By: Sheeba Velasco on 10-19-2024 M. tuberculosis tuberculin stim IFN-g Ql (Bld) 0.07 IU/mL . [facility] Absolute lymphocyte countOrd ered By: Sheeba Velasco on 10-12-2024 Lymphocytes Auto (Unsp spec) [#/Vol] 0.81 10*3/uL Low 0.83-4.51 [facility] Absolute neutrophil countOrd ered By: [facility] [place] Rod on 10-12-2024 Neutrophils (Bld) [#/Vol] 5.8 10*3/uL 2.0-7.7 [facility] Anion gap in Serum or Plasma Ordered By: Sheeba Velasco on 10-12-2024 Anion gap [Moles/Vol] 12 mmol/L 5-15 [facility] Automated blood erythrocyte countOrdered By: Sheeba Velasco on 10-12-2024 RBC (Bld) [#/Vol] 4.19 10*6/uL Low 4.2-5.4 [facility] Comment on above: Performed By: #### L 500.4050, L100.0100 #### [facility] [address] [place], [address] Automated blood hematocrit ( percentage)Ordered By: Sheeba Velasco on 10-12-2024 Hematocrit (Bld) [Volume fraction] 36.3 % Low 37-47 [facility] Comment on above: Performed By: #### L 500.4050, L100.0100 #### [facility] [address] [place], [address] Automated lymphocyte count a s percentage of total leukocytesOrdered By: Sheeba Velasco on 10-12-2024 Lymphocytes/100 WBC Auto (Unsp spec) 11.4 % Low 19-41 [facility] BUN/creatinine ratioOrdered By: Sheeba Rod on 10-12-2024 Urea nitrogen/Creatinine [Mass ratio] 14.2 mg/mg 10-20 [facility] Basophil percentageOrdered B y: Sheeba Rod on 10-12-2024 Basophils/100 WBC (Bld) 0.6 % Normal 0-1 [facility] Comment on above: Performed By: #### L 500.4050, L100.0100 #### [facility] [address] [place], [address] Bilirubin, totalOrdered By: Sheebalucie Velasco on 10-12-2024 Bilirubin [Mass/Vol] 0.28 mg/dL Normal 0.00-1.30 [facility] Comment on above: Performed By: #### L 500.4050, L100.0100 #### [facility] [address] [place], [address] CBC W/Diff, Automatedon 07-0 -2024 Absolute Lymph 0.81 X10 3/uL Low 0.83-4.51 [facility] Comment on above: Performed By: #### L 500.4050, L100.0100 #### [facility] [address] [place], [address] Absolute Neut 5.8 X10 3/uL Normal 2.0-7.7 [facility] Comment on above: Performed By: #### L 500.4050, L100.0100 #### [facility] [address] [place], [address] IG% 0.400 Normal 0.0-0.9 [facility] Comment on above: Result Comment: IG% - Immature Granulocytes (promyelocytes, myelocytes and metamyelocytes) > 1% indicates that a LEFT SHIFT is Present. Performed By: #### L 500.4050, L100.0100 #### [facility] [address] [place], [address] Lymphocytes/100 WBC (Bld) 11.4 % Low 19-41 [facility] Comment on above: Performed By: #### L 500.4050, L100.0100 #### [facility] [address] [place], [address] Nucleated RBC (Bld) [#/Vol] 0 10*3/uL Normal 0-5 [facility] Comment on above: Performed By: #### L 500.4050, L100.0100 #### [facility] [address] [place], [address] RDW SD 52.5 fl High 35.1-43.9 [facility] Comment on above: Performed By: #### L 500.4050, L100.0100 #### [facility] [address] [place], [address] Carbon dioxide, total [Moles /volume] in Central venous bloodOrdered By: Sheeba Velasco on 10-12-2024 CO2 [Moles/Vol] 21.7 mmol/L Normal 21.0-32.0 [facility] Comment on above: Performed By: #### L 500.4050, L100.0100 #### [facility] [address] [place], [address] Chloride assayOrdered By: Tatiana Velasco on 10-12-2024 Chloride [Moles/Vol] 106 mmol/L Normal 98-108 [facility] Comment on above: Performed By: #### L 500.4050, L100.0100 #### [facility] [address] [place], [address] Comprehensive Metabolic Prof ilon 10-12-2024 ALK PHOS 80 U/L Normal 35-104 [facility] Comment on above: Performed By: #### L 500.4050, L100.0100 #### [facility] [address] [place], [address] BUN/CRE 14.2 RATIO Normal 10-20 [facility] Comment on above: Performed By: #### L 500.4050, L100.0100 #### [facility] [address] [place], [address] GAP 12 Normal 5-15 [facility] Comment on above: Performed By: #### L 500.4050, L100.0100 #### [facility] [address] [place], [address] Potassium [Moles/Vol] 4.4 mmol/L Normal 3.3-5.1 [facility] Comment on above: Performed By: #### L 500.4050, L100.0100 #### [facility] [address] [place], [address] T PROT 7.2 g/dL Normal 5.9-8.4 [facility] Comment on above: Performed By: #### L 500.4050, L100.0100 #### [facility] [address] [place], [address] Comprehensive Metabolic Prof ilOrdered By: Sheeba Velasco on 10-12-2024 AST [Catalytic activity/Vol] 21 U/L Normal <=31 [facility] Comment on above: Performed By: #### L 500.4050, L100.0100 #### [facility] [address] [place], [address] Eosinophil percentageOrdered By: Sheeba Velasco on 10-12-2024 Eosinophils/100 WBC (Bld) 0.1 % Normal 0-5 [facility] Comment on above: Performed By: #### L 500.4050, L100.0100 #### [facility] [address] [place], [address] Erythrocyte distribution wid th ratioOrdered By: Sheeba Velasco on 10-12-2024 Erythrocyte distribution width (RBC) [Ratio] 17.0 % High 11.6-14.6 [facility] Comment on above: Performed By: #### L 500.4050, L100.0100 #### [facility] [address] [place], [address] Erythrocyte distribution wid th standard deviationOrdered By: Sheeba Velasco on 10-12-2024 Erythrocyte distribution width (RBC) [Ratio] 52.5 fl High 35.1-43.9 [facility] Glomerular filtration rate ( GFR) estimation/1.73 sq m using serum, plasma, or whole bOrdered By: Sheeba Velasco on 10-12-2024 GFR/1.73 sq M.predicted among non-blacks MDRD (S/P/Bld) [Vol rate/Area] 70 mL/min/{1.73_m2} Normal >60 [facility] Comment on above: mL/min/1.73m2 CKD-EP I Creatinine Equation (2020) Result Comment: mL/m in/1.73m2 CKD-EPI Creatinine Equation (2020) Performed By: #### L 500.4050, L100.0100 #### [facility] [address] [place], [address] Hemoglobin measurementOrdere d By: Sheeba Velasco on 10-12-2024 Hemoglobin (Bld) [Mass/Vol] 10.6 g/dL Low 12.0-15.0 [facility] Comment on above: Performed By: #### L 500.4050, L100.0100 #### [facility] [address] [place], [address] Immature granulocytes/100 WB C Auto (Bld)Ordered By: Sheeba Velasco on 10-12-2024 Immature granulocytes/100 WBC (Bld) 0.400 % 0.0-0.9 [facility] Comment on above: IG% - Immature Granu locytes (promyelocytes, myelocytes and metamyelocytes) > 1% indicates that a LEFT SHIFT is Present. MCV (mean corpuscular volume ) determinationOrdered By: Sheeba Velasco on 10-12-2024 MCV (RBC) [Entitic vol] 86.6 fL Normal 81-99 [facility] Comment on above: Performed By: #### L 500.4050, L100.0100 #### [facility] [address] [place], [address] Mean corpuscular hemoglobin (MCH) determinationOrdered By: Sheeba Velasco on 10-12-2024 MCH (RBC) [Entitic mass] 25.3 pg Low 27.0-32.0 [facility] Comment on above: Performed By: #### L 500.4050, L100.0100 #### [facility] [address] [place], [address] Mean corpuscular hemoglobin concentration (MCHC) determinationOrdered By: Sheeba Velasco on 10-12-2024 MCHC (RBC) [Mass/Vol] 29.2 g/dL Low 32-36 [facility] Comment on above: Performed By: #### L 500.4050, L100.0100 #### [facility] [address] [place], [address] Mean platelet volume determi nationOrdered By: Sheeba Velasco on 10-12-2024 Platelet mean volume (Bld) [Entitic vol] 10.2 fL Normal 6.2-12.0 [facility] Comment on above: Performed By: #### L 500.4050, L100.0100 #### [facility] [address] [place], [address] Monocyte percentageOrdered B y: Sheeba Velasco on 10-12-2024 Monocytes/100 WBC (Bld) 6.7 % Normal 0-10 [facility] Comment on above: Performed By: #### L 500.4050, L100.0100 #### [facility] [address] [place], [address] Neutrophil percentageOrdered By: Sheeba Velasco on 10-12-2024 Neutrophils/100 WBC (Bld) 80.8 % High 47-70 [facility] Comment on above: Performed By: #### L 500.4050, L100.0100 #### [facility] [address] [place], [address] Nucleated red blood cell per centageOrdered By: Sheeba Velasco on 10-12-2024 Nucleated RBC/100 WBC (Bld) [Ratio] 0 % 0-5 [facility] Platelet countOrdered By: Tatiana Velasco on 10-12-2024 Platelets (Bld) [#/Vol] 294 10*3/uL Normal 150-450 [facility] Comment on above: Performed By: #### L 500.4050, L100.0100 #### [facility] [address] [place], [address] Potassium measurement (mass/ volume)Ordered By: Sheeba Velasco on 10-12-2024 Potassium (Unsp spec) [Mass/Vol] 4.4 mmol/L 3.3-5.1 [facility] Serum creatinine measurement (mass/volume)Ordered By: Sheeba Velasco on 10-12-2024 Creatinine [Mass/Vol] 0.88 mg/dL Normal 0.70-1.20 [facility] Comment on above: Performed By: #### L 500.4050, L100.0100 #### [facility] [address] [place], [address] Serum globulin measurementOr dered By: Sheeba Velasco on 10-12-2024 Globulin (S) [Mass/Vol] 3.3 g/dL Normal 2.2-4.2 [facility] Comment on above: Performed By: #### L 500.4050, L100.0100 #### [facility] [address] [place], [address] Serum glucose measurement (m ass/volume)Ordered By: Sheeba Velasco on 10-12-2024 Glucose [Mass/Vol] 124 mg/dL High 70-99 [facility] Comment on above: Performed By: #### L 500.4050, L100.0100 #### [facility] [address] [place], [address] Serum or plasma alanine cano otransferase (ALT) measurementOrdered By: Sheeba Velasco on 10-12-2024 ALT [Catalytic activity/Vol] 9 U/L Normal <=34 [facility] Comment on above: Performed By: #### L 500.4050, L100.0100 #### [facility] [address] [place], [address] Serum or plasma albumin barbara urement (mass/volume)Ordered By: Sheeba Velasco on 10-12-2024 Albumin [Mass/Vol] 3.9 g/dL Normal 3.4-4.8 [facility] Comment on above: Performed By: #### L 500.4050, L100.0100 #### [facility] [address] [place], [address] Serum or plasma albumin/glob ulin mass ratioOrdered By: Sheeba Velasco on 10-12-2024 Albumin/Globulin [Mass ratio] 1.2 {ratio} Normal 0.9-2.4 [facility] Comment on above: Performed By: #### L 500.4050, L100.0100 #### [facility] [address] [place], [address] Serum or plasma alkaline paulino sphatase measurementOrdered By: Sheeba Velasco on 10-12-2024 ALP [Catalytic activity/Vol] 80 U/L 35-104 [facility] Serum or plasma calcium barbara urement (mass/volume)Ordered By: Sheeba Velasco on 10-12-2024 Calcium [Mass/Vol] 9.5 mg/dL Normal 7.6-11.0 [facility] Comment on above: Performed By: #### L 500.4050, L100.0100 #### [facility] [address] [place], [address] Serum or plasma urea nitroge n measurement (mass/volume)Ordered By: Sheeba Velasco on 10-12-2024 Urea nitrogen [Mass/Vol] 12 mg/dL Normal 4-19 [facility] Comment on above: Performed By: #### L 500.4050, L100.0100 #### [facility] [address] [place], [address] Sodium levelOrdered By: Darrell Velasco on 10-12-2024 Sodium [Moles/Vol] 140 mmol/L Normal 133-145 [facility] Comment on above: Performed By: #### L 500.4050, L100.0100 #### [facility] [address] [place], [address] Total proteinOrdered By: Josh Velasco on 10-12-2024 Protein [Mass/Vol] 7.2 g/dL 5.9-8.4 [facility] White blood cell (WBC) count Ordered By: Sheeba Velasco on 10-12-2024 WBC (Bld) [#/Vol] 7.1 10*3/uL Normal 4.4-11.0 [facility] Comment on above: Performed By: #### L 500.4050, L100.0100 #### [facility] [address] [place], [address] Absolute lymphocyte countOrd ered By: Sheeba Velasco on 07-21-2024 Lymphocytes Auto (Unsp spec) [#/Vol] 1.92 10*3/uL 0.83-4.51 [facility] Absolute neutrophil countOrd ered By: Sheeba Velasco on 07-21-2024 Neutrophils (Bld) [#/Vol] 3.0 10*3/uL 2.0-7.7 [facility] Anion gap in Serum or Plasma Ordered By: Sheeba Velasco on 07-21-2024 Anion gap [Moles/Vol] 11 mmol/L 5-15 [facility] Automated lymphocyte count a s percentage of total leukocytesOrdered By: Sheeba Velasco on 07-21-2024 Lymphocytes/100 WBC Auto (Unsp spec) 34.1 % 19-41 [facility] BUN/creatinine ratioOrdered By: Sheebalucie Velasco on 07-21-2024 Urea nitrogen/Creatinine [Mass ratio] 14.2 mg/mg 10-20 [facility] Basophil percentageOrdered B y: Sheeba Velasco on 07-21-2024 Basophils/100 WBC (Bld) 0.7 % 0-1 [facility] Bilirubin, totalOrdered By: Sheebalucie Velasco on 07-21-2024 Bilirubin [Mass/Vol] 0.21 mg/dL 0.00-1.30 [facility] CBC W/Diff, Automatedon Absolute Lymph 1.92 X10 3/uL Normal 0.83-4.51 [facility] Comment on above: Performed By: #### L 100.0100, L500.4050 ####[facility] [address] [place], [address] Absolute Neut 3.0 X10 3/uL Normal 2.0-7.7 [facility] Comment on above: Performed By: #### L 100.0100, L500.4050 ####[facility] [address] [place], [address] Basophils/100 WBC (Bld) 0.7 % Normal 0-1 [facility] Comment on above: Performed By: #### L 100.0100, L500.4050 ####[facility] [address] [place], [address] Eosinophils/100 WBC (Bld) 1.6 % Normal 0-5 [facility] Comment on above: Performed By: #### L 100.0100, L500.4050 ####[facility] [address] [place], [address] Erythrocyte distribution width (RBC) [Ratio] 16.3 % High 11.6-14.6 [facility] Comment on above: Performed By: #### L 100.0100, L500.4050 ####[facility] [address] [place], [address] Hematocrit (Bld) [Volume fraction] 37.0 % Normal 37-47 [facility] Comment on above: Performed By: #### L 100.0100, L500.4050 ####[facility] [address] [place], [address] Hemoglobin (Bld) [Mass/Vol] 10.9 g/dL Low 12.0-15.0 [facility] Comment on above: Performed By: #### L 100.0100, L500.4050 ####[facility] [address] [place], [address] IG% 0.400 Normal 0.0-0.9 [facility] Comment on above: Result Comment: IG% - Immature Granulocytes (promyelocytes, myelocytes and metamyelocytes) > 1% indicates that a LEFT SHIFT is Present. Performed By: #### L 100.0100, L500.4050 ####[facility] [address] [place], [address] Lymphocytes/100 WBC (Bld) 34.1 % Normal 19-41 [facility] Comment on above: Performed By: #### L 100.0100, L500.4050 ####[facility] [address] [place], [address] MCH (RBC) [Entitic mass] 26.0 pg Low 27.0-32.0 [facility] Comment on above: Performed By: #### L 100.0100, L500.4050 ####[facility] [address] [place], [address] MCHC (RBC) [Mass/Vol] 29.5 g/dL Low 32-36 [facility] Comment on above: Performed By: #### L 100.0100, L500.4050 ####[facility] [address] [place], [address] MCV (RBC) [Entitic vol] 88.1 fL Normal 81-99 [facility] Comment on above: Performed By: #### L 100.0100, L500.4050 ####[facility] [address] [place], [address] Monocytes/100 WBC (Bld) 9.4 % Normal 0-10 [facility] Comment on above: Performed By: #### L 100.0100, L500.4050 ####[facility] [address] [place], [address] Neutrophils/100 WBC (Bld) 53.8 % Normal 47-70 [facility] Comment on above: Performed By: #### L 100.0100, L500.4050 ####[facility] [address] [place], [address] Nucleated RBC (Bld) [#/Vol] 0 10*3/uL Normal 0-5 [facility] Comment on above: Performed By: #### L 100.0100, L500.4050 ####[facility] [address] [place], [address] Platelet mean volume (Bld) [Entitic vol] 10.0 fL Normal 6.2-12.0 [facility] Comment on above: Performed By: #### L 100.0100, L500.4050 ####[facility] [address] [place], [address] Platelets (Bld) [#/Vol] 266 10*3/uL Normal 150-450 [facility] Comment on above: Performed By: #### L 100.0100, L500.4050 ####[facility] [address] [place], [address] RBC (Bld) [#/Vol] 4.20 10*6/uL Normal 4.2-5.4 [facility] Comment on above: Performed By: #### L 100.0100, L500.4050 ####[facility] [address] [place], [address] RDW SD 51.4 fl High 35.1-43.9 [facility] Comment on above: Performed By: #### L 100.0100, L500.4050 ####[facility] [address] [place], [address] WBC (Bld) [#/Vol] 5.6 10*3/uL Normal 4.4-11.0 [facility] Comment on above: Performed By: #### L 100.0100, L500.4050 ####[facility] [address] [place], [address] Carbon dioxide, total [Moles /volume] in Central venous bloodOrdered By: Sheeba Velasco on 07-21-2024 CO2 [Moles/Vol] 23.2 mmol/L 21.0-32.0 [facility] Chloride assayOrdered By: Tatiana Velasco on 07-21-2024 Chloride [Moles/Vol] 107 mmol/L 98-108 [facility] Comprehensive Metabolic Prof ilon 07-21-2024 Albumin [Mass/Vol] 3.7 g/dL Normal 3.4-4.8 [facility] Comment on above: Performed By: #### L 100.0100, L500.4050 ####[facility] [address] [place], [address] Albumin/Globulin [Mass ratio] 1.1 {ratio} Normal 0.9-2.4 [facility] Comment on above: Performed By: #### L 100.0100, L500.4050 ####[facility] [address] [place], [address] ALK PHOS 88 U/L Normal 35-104 [facility] Comment on above: Performed By: #### L 100.0100, L500.4050 ####[facility] [address] [place], [address] ALT [Catalytic activity/Vol] 13 U/L Normal <=34 [facility] Comment on above: Performed By: #### L 100.0100, L500.4050 ####[facility] [address] [place], [address] AST [Catalytic activity/Vol] 20 U/L Normal <=31 [facility] Comment on above: Performed By: #### L 100.0100, L500.4050 ####[facility] [address] [place], [address] Bilirubin [Mass/Vol] 0.21 mg/dL Normal 0.00-1.30 [facility] Comment on above: Performed By: #### L 100.0100, L500.4050 ####[facility] [address] [place], [address] BUN/CRE 14.2 RATIO Normal 10-20 [facility] Comment on above: Performed By: #### L 100.0100, L500.4050 ####[facility] [address] [place], [address] Calcium [Mass/Vol] 9.2 mg/dL Normal 7.6-11.0 [facility] Comment on above: Performed By: #### L 100.0100, L500.4050 ####[facility] [address] [place], [address] Chloride [Moles/Vol] 107 mmol/L Normal 98-108 [facility] Comment on above: Performed By: #### L 100.0100, L500.4050 ####[facility] [address] [place], [address] CO2 [Moles/Vol] 23.2 mmol/L Normal 21.0-32.0 [facility] Comment on above: Performed By: #### L 100.0100, L500.4050 ####[facility] [address] [place], [address] Creatinine [Mass/Vol] 0.90 mg/dL Normal 0.70-1.20 [facility] Comment on above: Performed By: #### L 100.0100, L500.4050 ####[facility] [address] [place], [address] GAP 11 Normal 5-15 [facility] Comment on above: Performed By: #### L 100.0100, L500.4050 ####[facility] [address] [place], [address] GFR/1.73 sq M.predicted among non-blacks MDRD (S/P/Bld) [Vol rate/Area] 68 mL/min/{1.73_m2} Normal >60 [facility] Comment on above: Result Comment: mL/m in/1.73m2 CKD-EPI Creatinine Equation (2020) Performed By: #### L 100.0100, L500.4050 ####[facility] [address] [place], [address] Globulin (S) [Mass/Vol] 3.4 g/dL Normal 2.2-4.2 [facility] Comment on above: Performed By: #### L 100.0100, L500.4050 ####[facility] [address] [place], [address] Glucose [Mass/Vol] 117 mg/dL High 70-99 [facility] Comment on above: Performed By: #### L 100.0100, L500.4050 ####[facility] [address] [place], [address] Potassium [Moles/Vol] 3.7 mmol/L Normal 3.3-5.1 [facility] Comment on above: Performed By: #### L 100.0100, L500.4050 ####[facility] [address] [place], [address] Sodium [Moles/Vol] 141 mmol/L Normal 133-145 [facility] Comment on above: Performed By: #### L 100.0100, L500.4050 ####[facility] [address] [place], [address] T PROT 7.1 g/dL Normal 5.9-8.4 [facility] Comment on above: Performed By: #### L 100.0100, L500.4050 ####[facility] [address] [place], [address] Urea nitrogen [Mass/Vol] 13 mg/dL Normal 4-19 [facility] Comment on above: Performed By: #### L 100.0100, L500.4050 ####[facility] [address] [place], [address] Eosinophil percentageOrdered By: Sheeba Velasco on 07-21-2024 Eosinophils/100 WBC (Bld) 1.6 % 0-5 [facility] Erythrocyte distribution wid th (RBC) [Ratio]Ordered By: Sheeba Velasco on 07-21-2024 Erythrocyte distribution width (RBC) [Entitic vol] 51.4 fL High 35.1-43.9 [facility] Erythrocyte distribution wid th ratioOrdered By: Sheeba Velasco on 07-21-2024 Erythrocyte distribution width (RBC) [Ratio] 16.3 % High 11.6-14.6 [facility] Erythrocyte distribution wid th standard deviationOrdered By: Sheeba Velasco on 07-21-2024 Erythrocyte distribution width (RBC) [Ratio] 51.4 fl High 35.1-43.9 [facility] GFR/1.73 sq M.predicted marian g non-blacks MDRD (S/P/Bld) [Vol rate/Area]Ordered By: Sheeba Velasco on 07-21-2024 Estimated GFR (MDRD) Non-Af Amer 68 >60 [facility] Comment on above: mL/min/1.73m2 CKD-EP I Creatinine Equation (2020) Glomerular filtration rate ( GFR) estimation/1.73 sq m using serum, plasma, or whole bOrdered By: Sheeba Velasco on 07-21-2024 GFR/1.73 sq M.predicted among non-blacks MDRD (S/P/Bld) [Vol rate/Area] 68 mL/min/{1.73_m2} >60 [facility] Comment on above: mL/min/1.73m2 CKD-EP I Creatinine Equation (2020) Hematocrit Auto (Bld) [Volum e fraction]Ordered By: Sheeba Velasco on 07-21-2024 Hematocrit (Bld) [Volume fraction] 37.0 % 37-47 [facility] Hemoglobin measurementOrdere d By: Sheeba Velasco on 07-21-2024 Hemoglobin (Bld) [Mass/Vol] 10.9 g/dL Low 12.0-15.0 [facility] Immature granulocytes/100 WB C Auto (Bld)Ordered By: Sheeba Velasco on 07-21-2024 Immature granulocytes/100 WBC (Bld) 0.400 % 0.0-0.9 [facility] Comment on above: IG% - Immature Granu locytes (promyelocytes, myelocytes and metamyelocytes) > 1% indicates that a LEFT SHIFT is Present. Laboratory - Chemistry and C hemistry - challengeOrdered By: Sheeba Velasco on 07-21-2024 AST [Catalytic activity/Vol] 20 U/L <32 [facility] Lymphocytes Auto (Unsp spec) [#/Vol]Ordered By: Sheeba Velasco on 07-21-2024 Lymphocytes (Bld) [#/Vol] 1.92 10*3/uL 0.83-4.51 [facility] Lymphocytes/100 WBC Auto (Un sp spec)Ordered By: Sheeba Velasco on 07-21-2024 Lymphocytes/100 WBC (Bld) 34.1 % 19-41 [facility] MCV (mean corpuscular volume ) determinationOrdered By: Sheeba Velasco on 07-21-2024 MCV (RBC) [Entitic vol] 88.1 fL 81-99 [facility] Mean corpuscular hemoglobin (MCH) determinationOrdered By: Sheeba Velasco on 07-21-2024 MCH (RBC) [Entitic mass] 26.0 pg Low 27.0-32.0 [facility] Mean corpuscular hemoglobin concentration (MCHC) determinationOrdered By: Sheeba Velasco on 07-21-2024 MCHC (RBC) [Mass/Vol] 29.5 g/dL Low 32-36 [facility] Mean platelet volume determi nationOrdered By: Sheeba Velasco on 07-21-2024 Platelet mean volume (Bld) [Entitic vol] 10.0 fL 6.2-12.0 [facility] Monocyte percentageOrdered B y: Sheeba Velasco on 07-21-2024 Monocytes/100 WBC (Bld) 9.4 % 0-10 [facility] Neutrophil percentageOrdered By: Sheeba Velasco on 07-21-2024 Neutrophils/100 WBC (Bld) 53.8 % 47-70 [facility] Nucleated red blood cell per centageOrdered By: Sheeba Velasco on 07-21-2024 Nucleated RBC/100 WBC (Bld) [Ratio] 0 % 0-5 [facility] Platelet countOrdered By: Tatiana Velasco on 07-21-2024 Platelets (Bld) [#/Vol] 266 10*3/uL 150-450 [facility] Potassium (Unsp spec) [Mass/ Vol]Ordered By: Sheeba Velasco on 07-21-2024 Potassium [Moles/Vol] 3.7 mmol/L 3.3-5.1 [facility] Potassium measurement (mass/ volume)Ordered By: hSeeba Velasco on 07-21-2024 Potassium (Unsp spec) [Mass/Vol] 3.7 mmol/L 3.3-5.1 [facility] RBC Auto (Bld) [#/Vol]Ordere d By: Sheeba Velasco on 07-21-2024 RBC (Bld) [#/Vol] 4.20 10*6/uL 4.2-5.4 [facility] Serum creatinine measurement (mass/volume)Ordered By: Sheeba Velasco on 07-21-2024 Creatinine [Mass/Vol] 0.90 mg/dL 0.70-1.20 [facility] Serum globulin measurementOr dered By: Sheeba Velasco on 07-21-2024 Globulin (S) [Mass/Vol] 3.4 g/dL 2.2-4.2 [facility] Serum glucose measurement (m ass/volume)Ordered By: Sheeba Velasco on 07-21-2024 Glucose [Mass/Vol] 117 mg/dL High 70-99 [facility] Serum or plasma alanine cano otransferase (ALT) measurementOrdered By: Sheeba Velasco on 07-21-2024 ALT [Catalytic activity/Vol] 13 U/L <35 [facility] Serum or plasma albumin barbara urement (mass/volume)Ordered By: Sheeba Velasco on 07-21-2024 Albumin [Mass/Vol] 3.7 g/dL 3.4-4.8 [facility] Serum or plasma albumin/glob ulin mass ratioOrdered By: Sheeba Velasco on 07-21-2024 Albumin/Globulin [Mass ratio] 1.1 {ratio} 0.9-2.4 [facility] Serum or plasma alkaline paulino sphatase measurementOrdered By: Sheeba Velasco on 07-21-2024 ALP [Catalytic activity/Vol] 88 U/L 35-104 [facility] Serum or plasma calcium barbara urement (mass/volume)Ordered By: Sheeba Velasco on 07-21-2024 Calcium [Mass/Vol] 9.2 mg/dL 7.6-11.0 [facility] Serum or plasma urea nitroge n measurement (mass/volume)Ordered By: Sheeba Velasco on 07-21-2024 Urea nitrogen [Mass/Vol] 13 mg/dL 4-19 [facility] Sodium levelOrdered By: Darrell Velasco on 07-21-2024 Sodium [Moles/Vol] 141 mmol/L 133-145 [facility] Total proteinOrdered By: Josh Velasco on 07-21-2024 Protein [Mass/Vol] 7.1 g/dL 5.9-8.4 [facility] White blood cell (WBC) count Ordered By: Sheeba Velasco on 07-21-2024 WBC (Bld) [#/Vol] 5.6 10*3/uL 4.4-11.0 [facility] 12 Lead EKGon 06-28-2024 12 Lead EKG [facility] Cardiovascular Services [address] [place] [address] 12 Lead EKG 06/28/24 1011 MR#: [id number] Acct: [id number] Name: KIKO GODFREY Rep #: [id number] : 1950 74 From: Mario Taveras MD [...] Abnormal ECG Confirmed by MARIO TAVERAS MD ([id number]), video editor KAIDEN CALIXTO ([id number]) on 06/29/2024 8:15:20 AM Referred By: Confirmed By: MARIO TAVERAS MD 06/29/24 0815 Date Mario Taveras MD CC: Dr. Gladis Moralez DO; Dr. Eric Lozano MD Signed Normal [facility] Absolute lymphocyte countOrd ered By: Gladis Moralez on 06-28-2024 Lymphocytes Auto (Unsp spec) [#/Vol] 1.85 10*3/uL 0.83-4.51 [facility] Absolute neutrophil countOrd ered By: Gladis Moralez on 06-28-2024 Neutrophils (Bld) [#/Vol] 7.1 10*3/uL 2.0-7.7 [facility] Anion gap in Serum or Plasma Ordered By: Gladis Moralez on 06-28-2024 Anion gap [Moles/Vol] 12 mmol/L 5-15 [facility] Automated blood erythrocyte countOrdered By: Gladis Moralez on 06-28-2024 RBC (Bld) [#/Vol] 4.15 10*6/uL Low 4.2-5.4 [facility] Comment on above: Performed By: #### L 100.0100, L500.2500 ####[facility] [address] [place], [address] Automated blood hematocrit ( percentage)Ordered By: Gladis Moralez on 06-28-2024 Hematocrit (Bld) [Volume fraction] 36.0 % Low 37-47 [facility] Comment on above: Performed By: #### L 100.0100, L500.2500 ####[facility] [address] [place], [address] Automated lymphocyte count a s percentage of total leukocytesOrdered By: Gladis Moralez on 06-28-2024 Lymphocytes/100 WBC (Bld) 18.4 % Low [facility] Comment on above: Performed By: #### L 100.0100, L500.2500 ####[facility] [address] [place], [address] Lymphocytes/100 WBC Auto (Unsp spec) 18.4 % Low [facility] BUN/creatinine ratioOrdered By: Gladis Moralez on 06-28-2024 Urea nitrogen/Creatinine [Mass ratio] 9.6 mg/mg Low 10- [facility] Basic Metabolic Profile (BMP )on 06-28-2024 BUN/CRE 9.6 RATIO Low 01-31 [facility] Comment on above: Performed By: #### L 100.0100, L500.2500 ####[facility] [address] [place], [address] Basophil percentageOrdered B y: Gladis Moralez on 06-28-2024 Basophils/100 WBC (Bld) 0.6 % Normal 0-1 [facility] Comment on above: Performed By: #### L 100.0100, L500.2500 ####[facility] [address] [place], [address] CBC W/Diff, Automatedon 06-12 Absolute Lymph 1.85 X10 3/uL Normal 0.83-4.51 [facility] Comment on above: Performed By: #### L 100.0100, L500.2500 ####[facility] [address] [place], [address] Absolute Neut 7.1 X10 3/uL Normal 2.0-7.7 [facility] Comment on above: Performed By: #### L 100.0100, L500.2500 ####[facility] [address] [place], [address] IG% 0.800 Normal 0.0-0.9 [facility] Comment on above: Result Comment: IG% - Immature Granulocytes (promyelocytes, myelocytes and metamyelocytes) > 1% indicates that a LEFT SHIFT is Present. Performed By: #### L 100.0100, L500.2500 ####[facility] [address] [place], [address] Nucleated RBC (Bld) [#/Vol] 0 10*3/uL Normal 0-5 [facility] Comment on above: Performed By: #### L 100.0100, L500.2500 ####[facility] [address] [place], [address] RDW SD 50.1 fl High 35.1-43.9 [facility] Comment on above: Performed By: #### L 100.0100, L500.2500 ####[facility] [address] [place], [address] Carbon dioxide, total [Moles /volume] in Central venous bloodOrdered By: Gladis Moralez on 06-28-2024 CO2 [Moles/Vol] 22.8 mmol/L 21.0-32.0 [facility] Chest PA and Lateralon 06-28 Chest PA and Lateral [facility] Imaging Services [address] [place] [place] [address] Chest PA and Lateral MR#: [id number] Acct: [id number] Name: KIKO GODFREY Rep #: [id number] : 1950 F 74 From: Mira Albert MD PCP: Dr. Eric Lozano MD Status: PRE ER Study: Chest PA and Lateral Date of Exam: 06/28/24 Exam# [id number] Ordering Dr: Gladis Moralez DO PROCEDURE: CHEST [...] 2. Additional description as above. Reading Location: [facility] CC: Dr. Gladis Moralez DO; Dr. 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 [facility] Medical History Anxiety and depression Schizophrenia Rheumatoid [...] Physical Exam (more content not included)... Normal [facility] Eosinophil percentageOrdered By: Gladis Moralez on 06-28-2024 Eosinophils/100 WBC (Bld) 0.7 % Normal 0-5 [facility] Comment on above: Performed By: #### L 100.0100, L500.2500 ####[facility] [address] [place], [place], [address] Erythrocyte distribution wid th ratioOrdered By: Gladis Moralez on 06-28-2024 Erythrocyte distribution width (RBC) [Ratio] 15.9 % High 11.6-14.6 [facility] Comment on above: Performed By: #### L 100.0100, L500.2500 ####[facility] [address] [place], [place], [address] Erythrocyte distribution wid th standard deviationOrdered By: Gladis Moralez on 06-28-2024 Erythrocyte distribution width (RBC) [Entitic vol] 50.1 fL High 35.1-43.9 [facility] Erythrocyte distribution width (RBC) [Ratio] 50.1 fl High 35.1-43.9 [facility] Estimation of creatinine jennifer aranceOrdered By: Gladis Moralez on 06-28-2024 Estimated Creatinine Clearance Calc 75.76 ml/min 50-250 [facility] GFR/1.73 sq M.predicted marian g non-blacks MDRD (S/P/Bld) [Vol rate/Area]Ordered By: Gladis Moralez on 06-28-2024 Estimated GFR (MDRD) Non-Af Amer 77 >60 [facility] Comment on above: mL/min/1.73m2 CKD-EP I Creatinine Equation (2020) Glomerular filtration rate ( GFR) estimation/1.73 sq m using serum, plasma, or whole bOrdered By: Gladis Moralez on 06-28-2024 GFR/1.73 sq M.predicted among non-blacks MDRD (S/P/Bld) [Vol rate/Area] 77 mL/min/{1.73_m2} >60 [facility] Comment on above: mL/min/1.73m2 CKD-EP I Creatinine Equation (2020) Hemoglobin measurementOrdere d By: Gladis Moralez on 06-28-2024 Hemoglobin (Bld) [Mass/Vol] 10.8 g/dL Low 12.0-15.0 [facility] Comment on above: Performed By: #### L 100.0100, L500.2500 ####[facility] [address] [facility] [place], [place], [address] Immature granulocytes/100 WB C Auto (Bld)Ordered By: Gladis Moralez on 06-28-2024 Immature granulocytes/100 WBC (Bld) 0.800 % 0.0-0.9 [facility] Comment on above: IG% - Immature Granu locytes (promyelocytes, myelocytes and metamyelocytes) > 1% indicates that a LEFT SHIFT is Present. Lymphocytes Auto (Unsp spec) [#/Vol]Ordered By: Gladis Moralez on 06-28-2024 Lymphocytes (Bld) [#/Vol] 1.85 10*3/uL 0.83-4.51 [facility] MCV (mean corpuscular volume ) determinationOrdered By: Gladis Moralez on 06-28-2024 MCV (RBC) [Entitic vol] 86.7 fL Normal 81-99 [facility] Comment on above: Performed By: #### L 100.0100, L500.2500 ####[facility] [address] [facility] [place], [address] Mean corpuscular hemoglobin (MCH) determinationOrdered By: Gladis Moralez on 06-28-2024 MCH (RBC) [Entitic mass] 26.0 pg Low 27.0-32.0 [facility] Comment on above: Performed By: #### L 100.0100, L500.2500 ####[facility] [address] [place], [address] Mean corpuscular hemoglobin concentration (MCHC) determinationOrdered By: Gladis Moralez on 06-28-2024 MCHC (RBC) [Mass/Vol] 30.0 g/dL Low 32-36 [facility] Comment on above: Performed By: #### L 100.0100, L500.2500 ####[facility] [address] [place], [address] Mean platelet volume determi nationOrdered By: Gladis Moralez on 06-28-2024 Platelet mean volume (Bld) [Entitic vol] 10.1 fL Normal 6.2-12.0 [facility] Comment on above: Performed By: #### L 100.0100, L500.2500 ####[facility] [address] [place], [address] Monocyte percentageOrdered B y: Gladis Moralez on 06-28-2024 Monocytes/100 WBC (Bld) 9.0 % Normal 0-10 [facility] Comment on above: Performed By: #### L 100.0100, L500.2500 ####[facility] [address] [place], [address] Neutrophil percentageOrdered By: Gladis Moralez on 06-28-2024 Neutrophils/100 WBC (Bld) 70.5 % High 47-70 [facility] Comment on above: Performed By: #### L 100.0100, L500.2500 ####[facility] [address] [place], [address] Nucleated red blood cell per centageOrdered By: Gladis Moralez on 06-28-2024 Nucleated RBC/100 WBC (Bld) [Ratio] 0 % 0-5 [facility] Platelet countOrdered By: Ghanshyam Moralez on 06-28-2024 Platelets (Bld) [#/Vol] 241 10*3/uL Normal 150-450 [facility] Comment on above: Performed By: #### L 100.0100, L500.2500 ####[facility] [address] [place], [address] Potassium (Unsp spec) [Mass/ Vol]Ordered By: Gladis Moralez on 06-28-2024 Potassium [Moles/Vol] 3.2 mmol/L Low 3.3-5.1 [facility] Potassium measurement (mass/ volume)Ordered By: Gladis Moralez on 06-28-2024 Potassium (Unsp spec) [Mass/Vol] 3.2 mmol/L Low 3.3-5.1 [facility] Serum creatinine measurement (mass/volume)Ordered By: Gladis Moralez on 06-28-2024 Creatinine [Mass/Vol] 0.81 mg/dL 0.70-1.20 [facility] Serum glucose measurement (m ass/volume)Ordered By: Gladis Moralez on 06-28-2024 Glucose [Mass/Vol] 98 mg/dL 70-99 [facility] Serum or plasma calcium barbara urement (mass/volume)Ordered By: Gladis Moralez on 06-28-2024 Calcium [Mass/Vol] 8.6 mg/dL 7.6-11.0 [facility] Serum or plasma urea nitroge n measurement (mass/volume)Ordered By: Gladis Moralez on 06-28-2024 Urea nitrogen [Mass/Vol] 8 mg/dL Normal 4-19 [facility] Comment on above: Performed By: #### L 100.0100, L500.2500 ####[facility] [address] [place], [address] Sodium levelOrdered By: Camilo Moralez on 06-28-2024 Sodium [Moles/Vol] 143 mmol/L 133-145 [facility] White blood cell (WBC) count Ordered By: Gladis Moralez on 06-28-2024 WBC (Bld) [#/Vol] 10.1 10*3/uL Normal 4.4-11.0 [facility] Comment on above: Performed By: #### L 100.0100, L500.2500 ####[facility] [address] [place], [address] Chest PA and Lateralon 06-22 Chest PA and Lateral [facility] Imaging Services [address] [place] [address] Chest PA and Lateral MR#: [id number] Acct: [id number] Name: KIKO GODFREY Rep #: [id number] : 1950 F 74 From: Mira Antonio MD PCP: Dr. Eric Lozano MD Status: DEP AMB Study: Chest PA and Lateral Date of Exam: 06/22/24 Exam# [id number] Ordering Dr: Eric Lozano MD EXAM: XR [...] Lateral IMPRESSION: Suggestion of COPD. Reading [facility] CC: Dr. 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 Subjective Kiko Godfrey is a 74 year old female. HPI Patient presents today for 2 weeks of sinus pain pressure, chest congestion, runny nose and rhinorrhea. Denies any recent fevers. She was seen here about 10 days ago and diagnosed with viral illness with a negative chest x-ray and has been using Tessalon Perles and other qbbj-ous-egdazts treatments with no relief of symptoms. She [...] 875 MG-POTASSIUM CLAVULANATE 125 MG TABLET Lynn JabaridebrabenjaOLIVIA.[employer] Allergies As of Date: 06/06/2024 Noted Allergy [...] 06/22/2007 CHRONIC (more content not included)... Normal [facility] CNOVon 05-26-2024 CNOV Office Visit (UCWSTR ) -------- KIKO GODFREY ([id number]) 1950 F Date Time Provider Department 05/26/24 10:30 AM MIRA VALENCIA [facility] During your visit today, we recorded the following information about you: Temperature Pulse Respiration Blood pressure 99.7 degrees 79/minute 20/minute 140/68 Weight 95.4 kg Mira Valencia PA-C 05/26/2024 11:42 AM Signed This note was created using [employer]. Subjective Kiko Love Hayleydebra is a 74 year old female. Patient [...] Diagnosis:Viral bronchitis [J20.8] Order(s):XR CHEST 2V FRONTAL/LAT [8801108] Order #: [id number]. #:[id number] predniSONE (DELTASONE) 20 mg tabletTake 1 [...] use and (more content not included)... Normal [facility] XR CHEST 2V FRONTAL/LATon XR CHEST 2V [...] thoracic spine. IMPRESSION: No acute radiographic abnormality. 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[employer]: LISA Transcribe Date/Time: May 26 2024 10:32A Dictated by : THEO MAN MD This examination was interpreted and the report reviewed and electronically signed by: THEO MAN MD on May 26 2024 10:32AM EST [id number] Normal [facility] XR Chest PA and Lateralon IMPRESSION: No acute radiographic abnormality. 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 DIVISION OF RADIOLOGY Provider, Shine shukla Parthenon - 05/26/2024 * * *Final Report* * [...] spine. IMPRESSION IMPRESSION: No acute radiographic abnormality. 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House[employer] Appl[employer]: [facility] Transcribe Date/Time: May 26 2024 10:32A Dictated by : THEO MAN MD This examination was interpreted and the report reviewed and electronically signed by: THEO MAN MD on May 26 2024 10:32AM EST [facility] Radiology Study observation (narrative) [facility] XR Chest PA and LateralOrder ed By: [facility]cf Provider on 05-26-2024 [facility] Absolute neutrophil countOrd ered By: Sheeba Velasco on 04-28-2024 Neutrophils (Bld) [#/Vol] 2.1 10*3/uL 2.0-7.7 [facility] Albumin to globulin ratioOrd ered By: Sheeba Velasco on 04-28-2024 Albumin/Globulin [Mass ratio] 0.8 {ratio} Low 0.9-2.4 [facility] Basophil percentageOrdered B y: Sheeba Velasco on 04-28-2024 Basophils/100 WBC (Bld) 0.7 % 0-1 [facility] Bilirubin, totalOrdered By: Sheeba Velasco on 04-28-2024 Bilirubin [Mass/Vol] 0.40 mg/dL 0.20-1.00 [facility] Comment on above: For patients on eltr ombopag therapy, use of Dimension [place] TBIL is not recommended. Blood urea nitrogen (BUN)/cr eatinine ratioOrdered By: Sheeba Velasco on 04-28-2024 Urea nitrogen/Creatinine [Mass ratio] 9.6 mg/mg Low 10-20 [facility] CBC W/Diff, Automatedon 04-14 Absolute Lymph 1.38 X10 3/uL Normal 0.83-4.51 [facility] Comment on above: Performed By: #### L 500.4050, L100.0100 #### [facility] [address] [place], [address] Absolute Neut 2.1 X10 3/uL Normal 2.0-7.7 [facility] Comment on above: Performed By: #### L 500.4050, L100.0100 #### [facility] [address] [place], [address] Basophils/100 WBC (Bld) 0.7 % Normal 0-1 [facility] Comment on above: Performed By: #### L 500.4050, L100.0100 #### [facility] [address] [place], [address] Eosinophils/100 WBC (Bld) 1.7 % Normal 0-5 [facility] Comment on above: Performed By: #### L 500.4050, L100.0100 #### [facility] [address] [place], [address] Erythrocyte distribution width (RBC) [Ratio] 15.8 % High 11.6-14.6 [facility] Comment on above: Performed By: #### L 500.4050, L100.0100 #### [facility] [address] [place], [address] Hematocrit (Bld) [Volume fraction] 37.4 % Normal 37-47 [facility] Comment on above: Performed By: #### L 500.4050, L100.0100 #### [facility] [address] [place], [address] Hemoglobin (Bld) [Mass/Vol] 11.2 g/dL Low 12.0-15.0 [facility] Comment on above: Performed By: #### L 500.4050, L100.0100 #### [facility] [address] [place], [address] IG% 0.200 Normal 0.0-0.9 [facility] Comment on above: Result Comment: IG% - Immature Granulocytes (promyelocytes, myelocytes and metamyelocytes) > 1% indicates that a LEFT SHIFT is Present. Performed By: #### L 500.4050, L100.0100 #### [facility] [address] [place], [address] Lymphocytes/100 WBC (Bld) 33.3 % Normal 19-41 [facility] Comment on above: Performed By: #### L 500.4050, L100.0100 #### [facility] [address] [place], [address] MCH (RBC) [Entitic mass] 26.5 pg Low 27.0-32.0 [facility] Comment on above: Performed By: #### L 500.4050, L100.0100 #### [facility] [address] [place], [address] MCHC (RBC) [Mass/Vol] 29.9 g/dL Low 32-36 [facility] Comment on above: Performed By: #### L 500.4050, L100.0100 #### [facility] [address] [place], [address] MCV (RBC) [Entitic vol] 88.4 fL Normal 81-99 [facility] Comment on above: Performed By: #### L 500.4050, L100.0100 #### [facility] [address] [place], [address] Monocytes/100 WBC (Bld) 13.5 % High 0-10 [facility] Comment on above: Performed By: #### L 500.4050, L100.0100 #### [facility] [address] [place], [address] Neutrophils/100 WBC (Bld) 50.6 % Normal 47-70 [facility] Comment on above: Performed By: #### L 500.4050, L100.0100 #### [facility] [address] [place], [address] Nucleated RBC (Bld) [#/Vol] 0 10*3/uL Normal 0-5 [facility] Comment on above: Performed By: #### L 500.4050, L100.0100 #### [facility] [address] [place], [address] Platelet mean volume (Bld) [Entitic vol] 10.3 fL Normal 6.2-12.0 [facility] Comment on above: Performed By: #### L 500.4050, L100.0100 #### [facility] [address] [place], [address] Platelets (Bld) [#/Vol] 219 10*3/uL Normal 150-450 [facility] Comment on above: Performed By: #### L 500.4050, L100.0100 #### [facility] [address] [place], [address] RBC (Bld) [#/Vol] 4.23 10*6/uL Normal 4.2-5.4 [facility] Comment on above: Performed By: #### L 500.4050, L100.0100 #### [facility] [address] [place], [address] RDW SD 50.3 fl High 35.1-43.9 [facility] Comment on above: Performed By: #### L 500.4050, L100.0100 #### [facility] [address] [place], [address] WBC (Bld) [#/Vol] 4.2 10*3/uL Low 4.4-11.0 [facility] Comment on above: Performed By: #### L 500.4050, L100.0100 #### [facility] [address] [place], [address] Carbon dioxide measurementOr dered By: Sheeba Velasco on 04-28-2024 CO2 [Moles/Vol] 26.0 mmol/L 21.0-32.0 [facility] Chloride measurementOrdered By: Sheeba Velasco on 04-28-2024 Chloride [Moles/Vol] 110 mmol/L High 98-107 [facility] Comprehensive Metabolic Prof ilon 04-28-2024 Albumin [Mass/Vol] 3.2 g/dL Normal 3.2-5.0 [facility] Comment on above: Performed By: #### L 500.4050, L100.0100 #### [facility] [address] [place], [address] Albumin/Globulin [Mass ratio] 0.8 {ratio} Low 0.9-2.4 [facility] Comment on above: Performed By: #### L 500.4050, L100.0100 #### [facility] [address] [place], [address] ALK P 81 U/L Normal 45-117 [facility] Comment on above: Performed By: #### L 500.4050, L100.0100 #### [facility] [address] [place], [address] ALT [Catalytic activity/Vol] 14 U/L Normal 13-56 [facility] Comment on above: Performed By: #### L 500.4050, L100.0100 #### [facility] [address] [place], [address] AST [Catalytic activity/Vol] 19 U/L Normal 15-37 [facility] Comment on above: Performed By: #### L 500.4050, L100.0100 #### [facility] [address] [place], [address] Bilirubin [Mass/Vol] 0.40 mg/dL Normal 0.20-1.00 [facility] Comment on above: Result Comment: For patients on eltrombopag therapy, use of Dimension [place] TBIL is not recommended. Performed By: #### L 500.4050, L100.0100 #### [facility] [address] [place], [address] BUN/CRE 9.6 RATIO Low 10-20 [facility] Comment on above: Performed By: #### L 500.4050, L100.0100 #### [facility] [address] [place], [address] CA,Total 9.9 mg/dL Normal 8.5-10.1 [facility] Comment on above: Performed By: #### L 500.4050, L100.0100 #### [facility] [address] [place], [address] Chloride [Moles/Vol] 110 mmol/L High 98-107 [facility] Comment on above: Performed By: #### L 500.4050, L100.0100 #### [facility] [address] [place], [address] CO2 [Moles/Vol] 26.0 mmol/L Normal 21.0-32.0 [facility] Comment on above: Performed By: #### L 500.4050, L100.0100 #### [facility] [address] [place], [address] Creatinine [Mass/Vol] 0.93 mg/dL Normal 0.55-1.02 [facility] Comment on above: Result Comment: The validity of the calculated GFR GFRAA in patients over 70 years has not been determined. Clinical correlation is essential. Performed By: #### L 500.4050, L100.0100 #### [facility] [address] [place], [address] EST GFR - AA 76 mL/min Normal >60 [facility] Comment on above: Result Comment: Afri can Salvadorean GFR Calc Performed By: #### L 500.4050, L100.0100 #### [facility] [address] [place], [address] GAP 6 Normal 5-15 [facility] Comment on above: Performed By: #### L 500.4050, L100.0100 #### [facility] [address] [place], [address] GFR/1.73 sq M.predicted among non-blacks MDRD (S/P/Bld) [Vol rate/Area] 63 mL/min/{1.73_m2} Normal >60 [facility] Comment on above: Result Comment: Non- GFR Calc Performed By: #### L 500.4050, L100.0100 #### [facility] [address] [place], [address] Globulin (S) [Mass/Vol] 3.8 g/dL Normal 2.2-4.2 [facility] Comment on above: Performed By: #### L 500.4050, L100.0100 #### [facility] [address] [place], [address] Glucose [Mass/Vol] 107 mg/dL High 74-106 [facility] Comment on above: Result Comment: Fast ing Glucose result from 100 to 125 mg/dL suggests IMPAIRED HOMEOSTASIS per A.D.A. criteria. Performed By: #### L 500.4050, L100.0100 #### [facility] [address] [place], [address] Potassium [Moles/Vol] 4.0 mmol/L Normal 3.5-5.1 [facility] Comment on above: Performed By: #### L 500.4050, L100.0100 #### [facility] [address] [place], [address] Sodium [Moles/Vol] 142 mmol/L Normal 136-145 [facility] Comment on above: Performed By: #### L 500.4050, L100.0100 #### [facility] [address] [place], [address] T PROT 7.0 g/dL Normal 6.4-8.2 [facility] Comment on above: Performed By: #### L 500.4050, L100.0100 #### [facility] [address] [place], [address] Urea nitrogen [Mass/Vol] 9 mg/dL Normal 7-18 [facility] Comment on above: Performed By: #### L 500.4050, L100.0100 #### [facility] [address] [place], [address] Eosinophil percentageOrdered By: Sheeba Velasco on 04-28-2024 Eosinophils/100 WBC (Bld) 1.7 % 0-5 [facility] Erythrocyte distribution wid th ratioOrdered By: Sheeba Velasco on 04-28-2024 Erythrocyte distribution width (RBC) [Ratio] 15.8 % High 11.6-14.6 [facility] Erythrocyte distribution wid th standard deviationOrdered By: Sheeba Velasco on 04-28-2024 Erythrocyte distribution width (RBC) [Entitic vol] 50.3 fL High 35.1-43.9 [facility] Estimated glomerular filtrat ion rate (GFR) AmericanOrdered By: Sheeba Velasco on 04-28-2024 Estimated GFR (MDRD) Amer 76 mL/min >60 [facility] Comment on above: GFR Calc Glomerular filtration rate ( GFR) estimationOrdered By: Sheeba Velasco on 04-28-2024 Estimated GFR (MDRD) Non-Af Amer 63 mL/min >60 [facility] Comment on above: Non- GFR Calc Glucose measurementOrdered B y: Sheeba Velasco on 04-28-2024 Glucose [Mass/Vol] 107 mg/dL High 74-106 [facility] Comment on above: Fasting Glucose resu lt from 100 to 125 mg/dL suggests IMPAIRED HOMEOSTASIS per A.D.A. criteria. Hematocrit Auto (Bld) [Volum e fraction]Ordered By: Sheebalucie Velasco on 04-28-2024 Hematocrit (Bld) [Volume fraction] 37.4 % 37-47 [facility] Hemoglobin measurementOrdere d By: Sheeba Velasco on 04-28-2024 Hemoglobin (Bld) [Mass/Vol] 11.2 g/dL Low 12.0-15.0 [facility] Immature granulocytes/100 WB C Auto (Bld)Ordered By: Sheeba Velasco on 04-28-2024 Immature granulocytes/100 WBC (Bld) 0.200 % 0.0-0.9 [facility] Comment on above: IG% - Immature Granu locytes (promyelocytes, myelocytes and metamyelocytes) > 1% indicates that a LEFT SHIFT is Present. Laboratory - Chemistry and C hemistry - challengeOrdered By: Sheeba Velasco on 04-28-2024 AST [Catalytic activity/Vol] 19 U/L 15-37 [facility] Lymphocytes Auto (Unsp spec) [#/Vol]Ordered By: Sheeba Velasco on 04-28-2024 Lymphocytes (Bld) [#/Vol] 1.38 10*3/uL 0.83-4.51 [facility] Lymphocytes/100 WBC Auto (Un sp spec)Ordered By: Sheeba Velasco on 04-28-2024 Lymphocytes/100 WBC (Bld) 33.3 % 19-41 [facility] MCV (mean corpuscular volume ) determinationOrdered By: Sheebalucie Velasco on 04-28-2024 MCV (RBC) [Entitic vol] 88.4 fL 81-99 [facility] Mean corpuscular hemoglobin (MCH) determinationOrdered By: Sheeba Velasco on 04-28-2024 MCH (RBC) [Entitic mass] 26.5 pg Low 27.0-32.0 [facility] Mean corpuscular hemoglobin concentration (MCHC) determinationOrdered By: Sheeba Velasco on 04-28-2024 MCHC (RBC) [Mass/Vol] 29.9 g/dL Low 32-36 [facility] Mean platelet volume determi nationOrdered By: Sheeba Velasco on 04-28-2024 Platelet mean volume (Bld) [Entitic vol] 10.3 fL 6.2-12.0 [facility] Monocyte percentageOrdered B y: Sheeba Velasco on 04-28-2024 Monocytes/100 WBC (Bld) 13.5 % High 0-10 [facility] Neutrophil percentageOrdered By: Sheeba Velasco on 04-28-2024 Neutrophils/100 WBC (Bld) 50.6 % 47-70 [facility] Nucleated red blood cell per centageOrdered By: Sheeba Velasco on 04-28-2024 Nucleated RBC/100 WBC (Bld) [Ratio] 0 % 0-5 [facility] Platelet countOrdered By: Tatiana Velasco on 04-28-2024 Platelets (Bld) [#/Vol] 219 10*3/uL 150-450 [facility] Potassium measurementOrdered By: Sheeba Velasoc on 04-28-2024 Potassium [Moles/Vol] 4.0 mmol/L 3.5-5.1 [facility] RBC Auto (Bld) [#/Vol]Ordere d By: Sheeba Velasco on 04-28-2024 RBC (Bld) [#/Vol] 4.23 10*6/uL 4.2-5.4 [facility] Serum anion gap measurementO rdered By: Sheeba Velasco on 04-28-2024 Anion gap [Moles/Vol] 6 mmol/L - [facility] Serum globulin measurementOr dered By: Sheeba Velasco on 04-28-2024 Globulin (S) [Mass/Vol] 3.8 g/dL 2.2-4.2 [facility] Serum or plasma alanine cano otransferase (ALT) measurementOrdered By: Sheeba Velasco on 04-28-2024 ALT [Catalytic activity/Vol] 14 U/L 13-56 [facility] Serum or plasma albumin barbara urement (mass/volume)Ordered By: Sheeba Velasco on 04-28-2024 Albumin [Mass/Vol] 3.2 g/dL 3.2-5.0 [facility] Serum or plasma alkaline paulino sphatase measurementOrdered By: Sheeba Velasco on 04-28-2024 ALP [Catalytic activity/Vol] 81 U/L 45-117 [facility] Serum or plasma calcium barbara urement (mass/volume)Ordered By: Sheeba Velasco on 04-28-2024 Calcium [Mass/Vol] 9.9 mg/dL 8.5-10.1 [facility] Serum or plasma creatinine m easurement (mass/volume)Ordered By: Sheeba Velasco on 04-28-2024 Creatinine [Mass/Vol] 0.93 mg/dL 0.55-1.02 [facility] Comment on above: The validity of the calculated GFR & GFRAA in patients over 70 years has not been determined. Clinical correlation is essential. Serum or plasma urea nitroge n measurement (mass/volume)Ordered By: Sheeba Velasco on 04-28-2024 Urea nitrogen [Mass/Vol] 9 mg/dL 7-18 [facility] Sodium levelOrdered By: Darrell Velasco on 04-28-2024 Sodium [Moles/Vol] 142 mmol/L 136-145 [facility] Total proteinOrdered By: Josh Velasco on 04-28-2024 Protein [Mass/Vol] 7.0 g/dL 6.4-8.2 [facility] White blood cell (WBC) count Ordered By: Sheeba Velasco on 04-28-2024 WBC (Bld) [#/Vol] 4.2 10*3/uL Low 4.4-11.0 [facility] 12 Lead EKGon 03-31-2024 12 Lead EKG [facility] Services [address] [place] [address] 12 Lead EKG 03/31/24 0801 MR#: [id number] Acct: [id number] Name: KIKO GODFREY Rep #: [id number] : 1950 74 From: Mario Taveras MD Attending Dr: Dr. Sheri Lamb DO Status: ADM I NO Ordering Dr: Yazan Brito DO Date: 03/31/24 Location: [facility] Sex: F C Admitted: 03/31/24 Test Reason [...] T wave abnormality Abnormal ECG Confirmed by NITIN BERRIOS, MARIO ([id number]), video editor GRACE COHN ([id number]) on 04/01/2024 10:57:52 AM Referred By: Alisha Confirmed By: MARIO TAVERAS MD 04/01/24 1057 Date Mario Taveras MD CC: Dr. Eric Lozano MD; Dr. Sheri Lamb DO; Dr. Yazan Brito DO Signed Normal [facility] Albumin to globulin ratioOrd ered By: Yazan Brito on 03-31-2024 Albumin/Globulin [Mass ratio] 0.7 {ratio} Low 0.9-2.4 [facility] Bilirubin, totalOrdered By: Yazan Brito on 03-31-2024 Bilirubin [Mass/Vol] 0.20 mg/dL 0.20-1.00 [facility] Comment on above: For patients on eltr ombopag therapy, use of Dimension [place] TBIL is not recommended. Blood urea nitrogen (BUN)/cr eatinine ratioOrdered By: Yazan Brito on 03-31-2024 Urea nitrogen/Creatinine [Mass ratio] 13.9 mg/mg 10-20 [facility] CBC-Complete Blood Cnt No Di ffon 03-31-2024 Erythrocyte distribution width (RBC) [Ratio] 15.4 % High 11.6-14.6 [facility] Comment on above: Performed By: #### L 100.0500, L500.4050, L501.4020 ####[facility] [address] [place], [address] Hematocrit (Bld) [Volume fraction] 36.1 % Low 37-47 [facility] Comment on above: Performed By: #### L 100.0500, L500.4050, L501.4020 ####[facility] [address] [place], [address] Hemoglobin (Bld) [Mass/Vol] 11.2 g/dL Low 12.0-15.0 [facility] Comment on above: Performed By: #### L 100.0500, L500.4050, L501.4020 ####[facility] [address], [address] MCH (RBC) [Entitic mass] 26.9 pg Low 27.0-32.0 [facility] Comment on above: Performed By: #### L 100.0500, L500.4050, L501.4020 ####[facility] [address] [place], [address] MCHC (RBC) [Mass/Vol] 31.0 g/dL Low 32-36 [facility] Comment on above: Performed By: #### L 100.0500, L500.4050, L501.4020 ####[facility] [address] [place], [address] MCV (RBC) [Entitic vol] 86.8 fL Normal 81-99 [facility] Comment on above: Performed By: #### L 100.0500, L500.4050, L501.4020 ####[facility] [address], [address] Platelet mean volume (Bld) [Entitic vol] 10.2 fL Normal 6.2-12.0 [facility] Comment on above: Performed By: #### L 100.0500, L500.4050, L501.4020 ####[facility] [address] [place], [address] Platelets (Bld) [#/Vol] 272 10*3/uL Normal 150-450 [facility] Comment on above: Performed By: #### L 100.0500, L500.4050, L501.4020 ####[facility] [address] [place], [address] RBC (Bld) [#/Vol] 4.16 10*6/uL Low 4.2-5.4 [facility] Comment on above: Performed By: #### L 100.0500, L500.4050, L501.4020 ####[facility] [address] [place], [address] RDW SD 48.0 fl High 35.1-43.9 [facility] Comment on above: Performed By: #### L 100.0500, L500.4050, L501.4020 ####[facility] [address] [place], [address] WBC (Bld) [#/Vol] 6.2 10*3/uL Normal 4.4-11.0 [facility] Comment on above: Performed By: #### L 100.0500, L500.4050, L501.4020 ####[facility] [address] [place], [address] CTA Chest W/WO Contraston CTA Chest W/WO Contrast [facility] Imaging Services [address] [place] [address] CTA Chest W/WO Contrast MR#: [id number] Acct: [id number] Name: LEATHAMARYANAJOEYPATRIZIA RODRIGUEZS Rep #: [id number] : 1950 F 74 From: Craig sampson MD PCP: Dr. Eric Lozano MD Status: REG ER Study: CTA Chest W/WO Contrast Date of Exam: 03/31/24 Exam# [id number] Ordering Dr: Yazan Brito DO [id number] STUDY: CTA CHEST WITH CONTRAST REASON FOR [...] Eric Lozano MD; Dr. Yazan Brito DO 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: Signed Normal [facility] Carbon dioxide measurementOr dered By: Yazan Brito on 03-31-2024 CO2 [Moles/Vol] 27.0 mmol/L 21.0-32.0 [facility] Chest PA and Lateralon 03-31 Chest PA and Lateral [facility] Imaging Services [address] [place] [address] Chest PA and Lateral MR#: [id number] Acct: [id number] Name: KIKO GODFERY Rep #: [id number] : 1950 F 74 From: Craig sampson MD PCP: Dr. Eric Lozano MD Status: [facility] Study: Chest PA and Lateral Date of Exam: 03/31/24 Exam# [id number] Ordering Dr: Yazan Brito DO [id number] STUDY: X-RAY CHEST REASON FOR EXAM: Female, [...] Eric Lozano MD; Dr. Yazan Brito DO 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: Signed Normal [facility] Chloride measurementOrdered By: Yazan Brito on 03-31-2024 Chloride [Moles/Vol] 110 mmol/L High 98-107 [facility] Comprehensive Metabolic Prof ilon 03-31-2024 Albumin [Mass/Vol] 3.1 g/dL Low 3.2-5.0 [facility] Comment on above: Order Comment: 'TROP ' Serial specimen #1, #2 or #3: 1 Performed By: #### L 100.0500, L500.4050, L501.4020 ####[facility] [address] [place], [address] Albumin/Globulin [Mass ratio] 0.7 {ratio} Low 0.9-2.4 [facility] Comment on above: Order Comment: 'TROP ' Serial specimen #1, #2 or #3: 1 Performed By: #### L 100.0500, L500.4050, L501.4020 ####[facility] [address] [place], [address] ALK P 81 U/L Normal 45-117 [facility] Comment on above: Order Comment: 'TROP ' Serial specimen #1, #2 or #3: 1 Performed By: #### L 100.0500, L500.4050, L501.4020 ####[facility] [address] [place], [address] ALT [Catalytic activity/Vol] 14 U/L Normal 13-56 [facility] Comment on above: Order Comment: 'TROP ' Serial specimen #1, #2 or #3: 1 Performed By: #### L 100.0500, L500.4050, L501.4020 ####[facility] [address] [place], [address] AST [Catalytic activity/Vol] 14 U/L Low 15-37 [facility] Comment on above: Order Comment: 'TROP ' Serial specimen #1, #2 or #3: 1 Performed By: #### L 100.0500, L500.4050, L501.4020 ####[facility] [address] [place], [address] Bilirubin [Mass/Vol] 0.20 mg/dL Normal 0.20-1.00 [facility] Comment on above: Order Comment: 'TROP ' Serial specimen #1, #2 or #3: 1 Result Comment: For patients on eltrombopag therapy, use of Dimension [place] TBIL is not recommended. Performed By: #### L 100.0500, L500.4050, L501.4020 ####[facility] [address] [place], [address] BUN/CRE 13.9 RATIO Normal 10-20 [facility] Comment on above: Order Comment: 'TROP ' Serial specimen #1, #2 or #3: 1 Performed By: #### L 100.0500, L500.4050, L501.4020 ####[facility] [address] [place], [address] CA,Total 9.3 mg/dL Normal 8.5-10.1 [facility] Comment on above: Order Comment: 'TROP ' Serial specimen #1, #2 or #3: 1 Performed By: #### L 100.0500, L500.4050, L501.4020 ####[facility] [address] [place], [address] Chloride [Moles/Vol] 110 mmol/L High 98-107 [facility] Comment on above: Order Comment: 'TROP ' Serial specimen #1, #2 or #3: 1 Performed By: #### L 100.0500, L500.4050, L501.4020 ####[facility] [address] [place], [address] CO2 [Moles/Vol] 27.0 mmol/L Normal 21.0-32.0 [facility] Comment on above: Order Comment: 'TROP ' Serial specimen #1, #2 or #3: 1 Performed By: #### L 100.0500, L500.4050, L501.4020 ####[facility] [address] [place], [address] Creatinine [Mass/Vol] 0.86 mg/dL Normal 0.55-1.02 [facility] Comment on above: Order Comment: 'TROP ' Serial specimen #1, #2 or #3: 1 Result Comment: The validity of the calculated GFR GFRAA in patients over 70 years has not been determined. Clinical correlation is essential. Performed By: #### L 100.0500, L500.4050, L501.4020 ####[facility] [address] [place], [address] ECRCL 70.56 ml/min Normal [facility] Comment on above: Order Comment: 'TROP ' Serial specimen #1, #2 or #3: 1 Performed By: #### L 100.0500, L500.4050, L501.4020 ####[facility] [address] [place], [address] EST GFR - AA 83 mL/min Normal >60 [facility] Comment on above: Order Comment: 'TROP ' Serial specimen #1, #2 or #3: 1 Result Comment: Afri can Salvadorean GFR Calc Performed By: #### L 100.0500, L500.4050, L501.4020 ####[facility] [address] [place], [address] GAP 4 Low 5-15 [facility] Comment on above: Order Comment: 'TROP ' Serial specimen #1, #2 or #3: 1 Performed By: #### L 100.0500, L500.4050, L501.4020 ####[facility] [address] [place], [address] GFR/1.73 sq M.predicted among non-blacks MDRD (S/P/Bld) [Vol rate/Area] 69 mL/min/{1.73_m2} Normal >60 [facility] Comment on above: Order Comment: 'TROP ' Serial specimen #1, #2 or #3: 1 Result Comment: Non- GFR Calc Performed By: #### L 100.0500, L500.4050, L501.4020 ####[facility] [address] [place], [address] Globulin (S) [Mass/Vol] 4.5 g/dL High 2.2-4.2 [facility] Comment on above: Order Comment: 'TROP ' Serial specimen #1, #2 or #3: 1 Performed By: #### L 100.0500, L500.4050, L501.4020 ####[facility] [address] [place], [address] Glucose [Mass/Vol] 107 mg/dL High 74-106 [facility] Comment on above: Order Comment: 'TROP ' Serial specimen #1, #2 or #3: 1 Result Comment: Fast ing Glucose result from 100 to 125 mg/dL suggests IMPAIRED HOMEOSTASIS per A.D.A. criteria. Performed By: #### L 100.0500, L500.4050, L501.4020 ####[facility] [address] [place], [address] Potassium [Moles/Vol] 3.2 mmol/L Low 3.5-5.1 [facility] Comment on above: Order Comment: 'TROP ' Serial specimen #1, #2 or #3: 1 Performed By: #### L 100.0500, L500.4050, L501.4020 ####[facility] [address] [place], [place], [id number] Sodium [Moles/Vol] 141 mmol/L Normal 136-145 [facility] Comment on above: Order Comment: 'TROP ' Serial specimen #1, #2 or #3: 1 Performed By: #### L 100.0500, L500.4050, L501.4020 ####[facility] [address] [place], [address] T PROT 7.6 g/dL Normal 6.4-8.2 [facility] Comment on above: Order Comment: 'TROP ' Serial specimen #1, #2 or #3: 1 Performed By: #### L 100.0500, L500.4050, L501.4020 ####[facility] [address] [place], [address] Urea nitrogen [Mass/Vol] 12 mg/dL Normal 7-18 [facility] Comment on above: Order Comment: 'TROP ' Serial specimen #1, #2 or #3: 1 Performed By: #### L 100.0500, L500.4050, L501.4020 ####[facility] [address] [place], [place], [id number] Emergency Department Summary on 03-31-2024 Emergency Department Summary [facility] Medical Records Department [address] [place] [address] Emergency Department Summary 03/31/24 MR#: [id number] Acct: [id number] Name: KIKO GODFREY Rep #: [id number] : 1950 74 From: Yazan Brito DO PCP: Dr. Eric Lozano MD Status:ADM EMILIANO Location: [address] History of Present Illness Chief Complaint: [...] peritoneal signs, (more content not included)... Normal [facility] Erythrocyte distribution wid th ratioOrdered By: Yazan Brito on 03-31-2024 Erythrocyte distribution width (RBC) [Ratio] 15.4 % High 11.6-14.6 [facility] Erythrocyte distribution wid th standard deviationOrdered By: Yazan Brito on 03-31-2024 Erythrocyte distribution width (RBC) [Entitic vol] 48.0 fL High 35.1-43.9 [facility] Estimated glomerular filtrat ion rate (GFR) AmericanOrdered By: Yazan Brito on 03-31-2024 Estimated GFR (MDRD) Amer 83 mL/min >60 [facility] Comment on above: GFR Calc Estimation of creatinine jennifer aranceOrdered By: Yazan Brito on 03-31-2024 Estimated Creatinine Clearance Calc 70.56 ml/min [facility] Glomerular filtration rate ( GFR) estimationOrdered By: Yazan Brito on 03-31-2024 Estimated GFR (MDRD) Non-Af Amer 69 mL/min >60 [facility] Comment on above: Non- GFR Calc Glucose measurementOrdered B y: Yazan Brito on 03-31-2024 Glucose [Mass/Vol] 107 mg/dL High 74-106 [facility] Comment on above: Fasting Glucose resu lt from 100 to 125 mg/dL suggests IMPAIRED HOMEOSTASIS per A.D.A. criteria. H AND P Exam - Hospitaliston 03-31-2024 H&P Exam - Hospitalist [facility] Medical Records Department [address] [place] [id number] H P Exam - Hospitalist 03/31/24 1434 MR#: [id number] Acct: [id number] Name: KIKO GODFREY Rep #: [id number] : 1950 74 From: Eric Peace DO PCP: Dr. Eric Lozano MD Status:ADM EMILIANO Location: [place] [address] HPI - General General Date of Admission: [...] She is history of a remote smoking [facility] Medical History Anxiety and depression Schizophrenia Rheumatoid [...] Air 12/ (more content not included)... Normal [facility] Hematocrit Auto (Bld) [Volum e fraction]Ordered By: Yazan Brito on 03-31-2024 Hematocrit (Bld) [Volume fraction] 36.1 % Low 37-47 [facility] Hemoglobin measurementOrdere d By: Yazan Brito on 03-31-2024 Hemoglobin (Bld) [Mass/Vol] 11.2 g/dL Low 12.0-15.0 [facility] Influenza virus A and B and SARS-CoV-2 (COVID-19) and Respiratory syncytial virus RNAOrdered By: Yazan Brito on 03-31-2024 SARS-CoV-2 (COVID-19) RNA JANA+probe Ql (Unsp spec) [facility] L501.4020on 03-31-2024 TROPONIN-I HS 14 pg/mL Normal 3.0-54.0 [facility] Comment on above: Order Comment: 'TROP ' Serial specimen #1, #2 or #3: 1 Result Comment: Plea se Note: New Test Units and Gender Specific Reference Ranges. For more information see Policy Stat Procedure [place] High Sensitivity Troponin (TNIH) and attachments. Performed By: #### L 100.0500, L500.4050, L501.4020 ####[facility] [address] [facility] [place], [place], [id number] Laboratory - Chemistry and C hemistry - challengeOrdered By: Yazan Brito on 03-31-2024 AST [Catalytic activity/Vol] 14 U/L Low 15-[address] [facility] [address] Lung Screeningon 03-31-[address] Lung Screening [facility] Imaging Services [address] [place], [place] [address] Low Dose CT Lung Screening MR#: [id number] Acct: [id number] Name: KIKO GODFREY Rep #: [id number] : 1950 F 74 From: Craig sampson MD PCP: Dr. Eric Lozano MD Status: [facility] Study: Low Dose CT Lung Screening Date of Exam: 03/31 Exam# [id number] Ordering Dr: Yudy Angel [employer] [id number] STUDY: LOW DOSE CT LUNG CANCER SCREENING [...] CC: AHSAN Angel; Dr. Eric Lozano MD 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Household Appliances: Signed [facility] M100.678on 03-31-2024 M100.678 Pending SARS-CoV-2 (COVID 19) Negative INFLUENZA A Negative INFLUENZA B Negative RSV PCR Negative Normal [facility] Comment on above: Performed By: #### M 100.141 ####[facility] [address] [place], [address] MCV (mean corpuscular volume ) determinationOrdered By: Yazan Brito on 03-31-2024 MCV (RBC) [Entitic vol] 86.8 fL 81-99 [facility] Mean corpuscular hemoglobin (MCH) determinationOrdered By: Yazan Brito on 03-31-2024 MCH (RBC) [Entitic mass] 26.9 pg Low 27.0-32.0 [facility] Mean corpuscular hemoglobin concentration (MCHC) determinationOrdered By: Yazan Brito on 03-31-2024 MCHC (RBC) [Mass/Vol] 31.0 g/dL Low 32-36 [facility] Mean platelet volume determi nationOrdered By: Yazan Brito on 03-31-2024 Platelet mean volume (Bld) [Entitic vol] 10.2 fL 6.2-12.0 [facility] Platelet countOrdered By: Lalitha Brito on 03-31-2024 Platelets (Bld) [#/Vol] 272 10*3/uL 150-450 [facility] Potassium measurementOrdered By: Yazan Brito on 03-31-2024 Potassium [Moles/Vol] 3.2 mmol/L Low 3.5-5.1 [facility] RBC Auto (Bld) [#/Vol]Ordere d By: Yazan Brito on 03-31-2024 RBC (Bld) [#/Vol] 4.16 10*6/uL Low 4.2-5.4 [facility] Serum anion gap measurementO rdered By: Yazan Brito on 03-31-2024 Anion gap [Moles/Vol] 4 mmol/L Low 5-15 [facility] Serum globulin measurementOr dered By: Yazan Brito on 03-31-2024 Globulin (S) [Mass/Vol] 4.5 g/dL High 2.2-4.2 [facility] Serum or plasma alanine cano otransferase (ALT) measurementOrdered By: Yazan Brito on 03-31-2024 ALT [Catalytic activity/Vol] 14 U/L 13-56 [facility] Serum or plasma albumin barbara urement (mass/volume)Ordered By: Yazan Brito on 03-31-2024 Albumin [Mass/Vol] 3.1 g/dL Low 3.2-5.0 [facility] Serum or plasma alkaline paluino sphatase measurementOrdered By: Yazan Brito on 03-31-2024 ALP [Catalytic activity/Vol] 81 U/L 45-117 [facility] Serum or plasma calcium barbara urement (mass/volume)Ordered By: Yazan Brito on 03-31-2024 Calcium [Mass/Vol] 9.3 mg/dL 8.5-10.1 [facility] Serum or plasma creatinine m easurement (mass/volume)Ordered By: Yazan Brito on 03-31-2024 Creatinine [Mass/Vol] 0.86 mg/dL 0.55-1.02 [facility] Comment on above: The validity of the calculated GFR & GFRAA in patients over 70 years has not been determined. Clinical correlation is essential. Serum or plasma urea nitroge n measurement (mass/volume)Ordered By: Yazan Brito on 03-31-2024 Urea nitrogen [Mass/Vol] 12 mg/dL 7-18 [facility] Sodium levelOrdered By: Mariano Brito on 03-31-2024 Sodium [Moles/Vol] 141 mmol/L 136-145 [facility] Total proteinOrdered By: Osmar Brito on 03-31-2024 Protein [Mass/Vol] 7.6 g/dL 6.4-8.2 [facility] Troponin IOrdered By: Yazan Brito on 03-31-2024 Troponin I High Sensitivity 14 pg/mL 3.0-54.0 [facility] Comment on above: Please Note: New Janay t Units and Gender Specific Reference Ranges. For more information see Policy Stat Procedure [place] High Sensitivity Troponin (TNIH) and attachments. White blood cell (WBC) count Ordered By: Yazan Brito on 03-31-2024 WBC (Bld) [#/Vol] 6.2 10*3/uL 4.4-11.0 [facility] 03-29-2024 CNOV Office Visit (UCWSTR ) -------- KIKO GODFREY ([id number]) 1950 F Date Time Provider Department 03/29/24 2:30 PM MIRA VALENCIA [facility] During your visit today, we recorded the following information about you: Temperature Pulse Respiration Blood pressure 97.7 degrees 70/minute 16/minute 132/74 Weight 93.1 kg Mira Valencia PA-C 03/29/2024 2:33 PM Signed This note was created using [employer]. Subjective Kiko Ramirezbethanieamarjit is a 74 year old female. HPI Review of Systems Objective BP 132/74 Pulse 70 Temp 36.5 ?C (97.7 ?F) Resp 16 Wt 93.1 kg (205 lb 4 oz) SpO2 99% Physical Exam Assessment and Plan Mira Valencia PA-C 03/29/2024 2:33 PM Signed This note was created using [employer]. Subjective Kiko Godfrey is a 74 year [...] (PROVENTIL HF (more content not included)... Normal [facility] XR Chest PA and Lateralon IMPRESSION: Interval increase in size of nodular opacity in the inferior retrosternal space. A dedicated CT chest study may be obtained for further evaluation. 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 DIVISION OF RADIOLOGY Provider, [facility] - 10/13/2023 * * *Final Report* * [...] study may be obtained for further evaluation. 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 Radiology Study observation (narrative) [facility] XR Chest PA and LateralOrder ed By: [facility] Provider on 10-13-2023 [facility] Absolute lymphocyte countOrd ered By: Sheeba Velasco on 08-14-2023 Lymphocytes Auto (Unsp spec) [#/Vol] 0.70 10*3/uL 0.83-4.51 [facility] Automated lymphocyte count a s percentage of total leukocytesOrdered By: Sheeba Velasco on 08-14-2023 Lymphocytes/100 WBC Auto (Unsp spec) 13.5 % 19-41 [facility] Basophil percentageOrdered B y: Sheeba Velasco on 08-14-2023 Basophils/100 WBC (Bld) 1.0 % 0-1 [facility] Bilirubin [Mass/Vol] 0.40 mg/dL 0.20-1.00 [facility] Comment on above: For patients on eltr ombopag therapy, use of Dimension [place] TBIL is not recommended. Chloride [Moles/Vol] 103 mmol/L 98-107 [facility] Eosinophils/100 WBC (Bld) 0.4 % 0-5 [facility] Glucose [Mass/Vol] 105 mg/dL 74-106 [facility] Comment on above: Fasting Glucose resu lt from 100 to 125 mg/dL suggests IMPAIRED HOMEOSTASIS per A.D.A. criteria. Hemoglobin (Bld) [Mass/Vol] 11.3 g/dL 12.0-15.0 [facility] Monocytes/100 WBC (Bld) 8.9 % 0-10 [facility] Neutrophils (Bld) [#/Vol] 3.9 10*3/uL 2.0-7.7 [facility] Neutrophils/100 WBC (Bld) 76.0 % 47-70 [facility] Potassium [Moles/Vol] 4.1 mmol/L 3.5-5.1 [facility] Protein [Mass/Vol] 7.4 g/dL 6.4-8.2 [facility] Sodium [Moles/Vol] 134 mmol/L 136-145 [facility] WBC (Bld) [#/Vol] 5.2 10*3/uL 4.4-11.0 [facility] Determination of erythrocyte mean corpuscular volume (MCV)Ordered By: Sheeba Velasco on 08-14-2023 MCV (RBC) [Entitic vol] 89.5 fL 81-99 [facility] Erythrocyte distribution wid th ratioOrdered By: Sheeba Velasco on 08-14-2023 Erythrocyte distribution width (RBC) [Ratio] 15.0 % 11.6-14.6 [facility] Erythrocyte distribution wid th standard deviationOrdered By: Sheeba Velasco on 08-14-2023 Erythrocyte distribution width (RBC) [Entitic vol] 48.7 fL 35.1-43.9 [facility] Hematocrit Auto (Bld) [Volum e fraction]Ordered By: Sheeba Velasco on 08-14-2023 Hematocrit (Bld) [Volume fraction] 37.5 % 37-47 [facility] Immature granulocytes/100 WB C Auto (Bld)Ordered By: Sheeba Velasco on 08-14-2023 Immature granulocytes/100 WBC (Bld) 0.200 % 0.0-0.9 [facility] Comment on above: IG% - Immature Granu locytes (promyelocytes, myelocytes and metamyelocytes) > 1% indicates that a LEFT SHIFT is Present. Laboratory - Chemistry and C hemistry - challengeOrdered By: Sheeba Velasco on 08-14-2023 Albumin/Globulin [Mass ratio] 0.6 {ratio} 0.9-2.4 [facility] ALP [Catalytic activity/Vol] 66 U/L 45-117 [facility] ALT [Catalytic activity/Vol] 11 U/L 13-56 [facility] CO2 [Moles/Vol] 26.0 mmol/L 21.0-32.0 [facility] Globulin (S) [Mass/Vol] 4.6 g/dL 2.2-4.2 [facility] Urea nitrogen/Creatinine [Mass ratio] 12.9 mg/mg 10-20 [facility] Laboratory - Hematology and Cell countsOrdered By: Sheeba Velasco on 08-14-2023 MCH (RBC) [Entitic mass] 27.0 pg 27.0-32.0 [facility] MCHC (RBC) [Mass/Vol] 30.1 g/dL 32-36 [facility] Nucleated RBC/100 WBC (Bld) [Ratio] 0 % 0-5 [facility] Platelet mean volume (Bld) [Entitic vol] 10.5 fL 6.2-12.0 [facility] Platelets (Bld) [#/Vol] 285 10*3/uL 150-450 [facility] No Panel InformationOrdered By: Sheeba Velasco on 08-14-2023 Estimated GFR (MDRD) Amer 77 mL/min >60 [facility] Comment on above: GFR Calc Estimated GFR (MDRD) Non-Af Amer 63 mL/min >60 [facility] Comment on above: Non- GFR Calc RBC Auto (Bld) [#/Vol]Ordere d By: Sheeba Velasco on 08-14-2023 RBC (Bld) [#/Vol] 4.19 10*6/uL 4.2-5.4 [facility] Serum or plasma calcium barbara urement (mass/volume)Ordered By: Sheeba Velasco on 08-14-2023 Calcium [Mass/Vol] 9.5 mg/dL 8.5-10.1 [facility] Serum or plasma creatinine m easurement (mass/volume)Ordered By: Sheeba Velasco on 08-14-2023 Creatinine [Mass/Vol] 0.93 mg/dL 0.55-1.02 [facility] Comment on above: The validity of the calculated GFR & GFRAA in patients over 70 years has not been determined. Clinical correlation is essential. Serum or plasma urea nitroge n measurement (mass/volume)Ordered By: Sheeba Velasco on 08-14-2023 Urea nitrogen [Mass/Vol] 12 mg/dL 7-18 [facility] Thin prep Papanicolaou smear with manual screeningOrdered By: Sheeba Velasco on 08-14-2023 Thin prep Papanicolaou smear with manual screening 2.8 g/dL 3.2-5.0 [facility] Thin prep Papanicolaou smear with manual screening 16 U/L 15-37 [facility] Thin prep Papanicolaou smear with manual screening 5 5-15 [facility] Basophil percentageOrdered B y: Dmitry Griggs on 07-31-2023 Chloride [Moles/Vol] 105 mmol/L 98-107 [facility] Glucose [Mass/Vol] 95 mg/dL 74-106 [facility] Hemoglobin (Bld) [Mass/Vol] 9.9 g/dL 12.0-15.0 [facility] Potassium [Moles/Vol] 3.8 mmol/L 3.5-5.1 [facility] Comment on above: Slight Hemolysis, Re sult may be falsely increased. Sodium [Moles/Vol] 134 mmol/L 136-145 [facility] WBC (Bld) [#/Vol] 8.1 10*3/uL 4.4-11.0 [facility] Determination of erythrocyte mean corpuscular volume (MCV)Ordered By: Dmitry Griggs on 07-31-2023 MCV (RBC) [Entitic vol] 89.5 fL 81-99 [facility] Erythrocyte distribution wid th ratioOrdered By: Dmitry Griggs on 07-31-2023 Erythrocyte distribution width (RBC) [Ratio] 14.8 % 11.6-14.6 [facility] Erythrocyte distribution wid th standard deviationOrdered By: Dmitry Griggs on 07-31-2023 Erythrocyte distribution width (RBC) [Entitic vol] 47.8 fL 35.1-43.9 [facility] Hematocrit Auto (Bld) [Volum e fraction]Ordered By: Dmitry Griggs on 07-31-2023 Hematocrit (Bld) [Volume fraction] 32.4 % 37-47 [facility] Laboratory - Chemistry and C hemistry - challengeOrdered By: Dmitry Griggs on 07-31-2023 CO2 [Moles/Vol] 22.0 mmol/L 21.0-32.0 [facility] Urea nitrogen/Creatinine [Mass ratio] 17.5 mg/mg 10-20 [facility] Laboratory - Hematology and Cell countsOrdered By: Dmitry Griggs on 07-31-2023 MCH (RBC) [Entitic mass] 27.3 pg 27.0-32.0 [facility] MCHC (RBC) [Mass/Vol] 30.6 g/dL 32-36 [facility] Platelet mean volume (Bld) [Entitic vol] 11.0 fL 6.2-12.0 [facility] Platelets (Bld) [#/Vol] 201 10*3/uL 150-450 [facility] No Panel InformationOrdered By: Dmitry Griggs on 07-31-2023 Estimated Creatinine Clearance Calc 78.06 ml/min [facility] Estimated GFR (MDRD) Amer 99 mL/min >60 [facility] Comment on above: GFR Calc Estimated GFR (MDRD) Non-Af Amer 82 mL/min >60 [facility] Comment on above: Non- GFR Calc RBC Auto (Bld) [#/Vol]Ordere d By: Dmitry Griggs on 07-31-2023 RBC (Bld) [#/Vol] 3.62 10*6/uL 4.2-5.4 [facility] Serum or plasma calcium barbara urement (mass/volume)Ordered By: Dmitry Griggs on 07-31-2023 Calcium [Mass/Vol] 8.6 mg/dL 8.5-10.1 [facility] Serum or plasma creatinine m easurement (mass/volume)Ordered By: Dmitry Griggs on 07-31-2023 Creatinine [Mass/Vol] 0.74 mg/dL 0.55-1.02 [facility] Comment on above: The validity of the calculated GFR & GFRAA in patients over 70 years has not been determined. Clinical correlation is essential. Serum or plasma urea nitroge n measurement (mass/volume)Ordered By: Dmitry Griggs on 07-31-2023 Urea nitrogen [Mass/Vol] 13 mg/dL 7-18 [facility] Thin prep Papanicolaou smear with manual screeningOrdered By: Dmitry Griggs on 07-31-2023 Thin prep Papanicolaou smear with manual screening 7 5-15 [facility] Activated partial thrombopla stin time (aPTT) in platelet poor plasma by coagulation aOrdered By: Dmitry Griggs on 07-30-2023 aPTT Coag (PPP) [Time] 37.9 s 24.1-36.2 [facility] Absolute lymphocyte countOrd ered By: Kathleen on 07-29-2023 Lymphocytes Auto (Unsp spec) [#/Vol] 1.34 10*3/uL 0.83-4.51 [facility] Automated lymphocyte count a s percentage of total leukocytesOrdered By: White on 07-29-2023 Lymphocytes/100 WBC Auto (Unsp spec) 14.5 % 19-41 [facility] Basophil percentageOrdered B y: on 07-29-2023 Basophils/100 WBC (Bld) 0.4 % 0-1 [facility] Bilirubin [Mass/Vol] 0.40 mg/dL 0.20-1.00 [facility] Comment on above: For patients on eltr ombopag therapy, use of Dimension [place] TBIL is not recommended. Cholesterol [Mass/Vol] 161 mg/dL <200 [facility] Comment on above: <200 mg/dL Desirable 200-240 mg/dL Borderline >240 mg/dL High Risk Eosinophils/100 WBC (Bld) 0.2 % 0-5 [facility] Monocytes/100 WBC (Bld) 9.3 % 0-10 [facility] Neutrophils (Bld) [#/Vol] 6.9 10*3/uL 2.0-7.7 [facility] Neutrophils/100 WBC (Bld) 74.8 % 47-70 [facility] Protein [Mass/Vol] 7.1 g/dL 6.4-8.2 [facility] Triglyceride [Mass/Vol] 94 mg/dL <199 [facility] Comment on above: The drugs N-Acetylcy steine and Metamizole may falsely depress this assay.Serum Triglycerides Reference Interval Normal <150 mg/dL Borderline high 150 - 199 mg/dL High 200 - 499 mg/dL Very High > or = 500 mg/dL Immature granulocytes/100 WB C Auto (Bld)Ordered By: Sophia Wang on 07-29-2023 Immature granulocytes/100 WBC (Bld) 0.800 % 0.0-0.9 [facility] Comment on above: IG% - Immature Granu locytes (promyelocytes, myelocytes and metamyelocytes) > 1% indicates that a LEFT SHIFT is Present. Laboratory - Chemistry and C hemistry - challengeOrdered By: Sophia Wang on 07-29-2023 Albumin/Globulin [Mass ratio] 0.7 {ratio} 0.9-2.4 [facility] ALP [Catalytic activity/Vol] 55 U/L 45-117 [facility] ALT [Catalytic activity/Vol] 10 U/L 13-56 [facility] Cholesterol in HDL [Mass/Vol] 57 mg/dL >40 [facility] Comment on above: The drugs N-Acetylcy steine and Metamizole may falsely depress this assay. Reference Range HDL <40 mg/dL Low HDL Cholesterol HDL >or= 60 mg/dL High HDL Cholesterol Cholesterol in LDL [Mass/Vol] 85 mg/dL 0-130 [facility] Globulin (S) [Mass/Vol] 4.3 g/dL 2.2-4.2 [facility] Laboratory - Hematology and Cell countsOrdered By: Sophia Wang on 07-29-2023 Nucleated RBC/100 WBC (Bld) [Ratio] 0 % 0-5 [facility] No Panel InformationOrdered By: Sophia Wang on 07-29-2023 VLDL Cholesterol 19 mg/dL 5-40 [facility] Thin prep Papanicolaou smear with manual screeningOrdered By: [facility] Kathleen on 07-29-2023 Thin prep Papanicolaou smear with manual screening 2.8 g/dL 3.2-5.0 [facility] Thin prep Papanicolaou smear with manual screening 19 U/L 15-37 [facility] Absolute lymphocyte countOrd ered By: Eric Grandaabdiaziz on 07-28-2023 Lymphocytes Auto (Unsp spec) [#/Vol] 1.24 10*3/uL 0.83-4.51 [facility] Automated lymphocyte count a s percentage of total leukocytesOrdered By: Eric West on 07-28-2023 Lymphocytes/100 WBC Auto (Unsp spec) 13.0 % 19-41 [facility] Basophil percentageOrdered B y: gold West on 07-28-2023 Basophils/100 WBC (Bld) 0.6 % 0-1 [facility] Chloride [Moles/Vol] 102 mmol/L 98-107 [facility] Eosinophils/100 WBC (Bld) 0.1 % 0-5 [facility] Glucose [Mass/Vol] 140 mg/dL 74-106 [facility] Comment on above: Fasting Glucose resu lt greater than or equal to 126 mg/dL suggests DIABETES MELLITUS per A.D.A. criteria. Hemoglobin (Bld) [Mass/Vol] 12.3 g/dL 12.0-15.0 [facility] Monocytes/100 WBC (Bld) 8.3 % 0-10 [facility] Neutrophils (Bld) [#/Vol] 7.4 10*3/uL 2.0-7.7 [facility] Neutrophils/100 WBC (Bld) 77.4 % 47-70 [facility] Potassium [Moles/Vol] 4.0 mmol/L 3.5-5.1 [facility] Comment on above: Slight Hemolysis, Re sult may be falsely increased. Sodium [Moles/Vol] 137 mmol/L 136-145 [facility] WBC (Bld) [#/Vol] 9.6 10*3/uL 4.4-11.0 [facility] Determination of erythrocyte mean corpuscular volume (MCV)Ordered By: Eric West on 07-28-2023 MCV (RBC) [Entitic vol] 88.6 fL 81-99 [facility] Erythrocyte distribution wid th ratioOrdered By: Eric West on 07-28-2023 Erythrocyte distribution width (RBC) [Ratio] 14.9 % 11.6-14.6 [facility] Erythrocyte distribution wid th standard deviationOrdered By: Eric West on 07-28-2023 Erythrocyte distribution width (RBC) [Entitic vol] 47.7 fL 35.1-43.9 [facility] Hematocrit Auto (Bld) [Volum e fraction]Ordered By: Eric West on 07-28-2023 Hematocrit (Bld) [Volume fraction] 39.0 % 37-47 [facility] Immature granulocytes/100 WB C Auto (Bld)Ordered By: Eric West on 07-28-2023 Immature granulocytes/100 WBC (Bld) 0.600 % 0.0-0.9 [facility] Comment on above: IG% - Immature Granu locytes (promyelocytes, myelocytes and metamyelocytes) > 1% indicates that a LEFT SHIFT is Present. Laboratory - Chemistry and C hemistry - challengeOrdered By: Eric West on 07-28-2023 CO2 [Moles/Vol] 25.0 mmol/L 21.0-32.0 [facility] Urea nitrogen/Creatinine [Mass ratio] 12.6 mg/mg 10-20 [facility] Laboratory - Chemistry and C hemistry - challengeOrdered By: Sophia Wang on 07-28-2023 Magnesium [Mass/Vol] 2.1 mg/dL 1.6-2.6 [facility] Comment on above: Slight Hemolysis, Re sult may be falsely increased. Natriuretic peptide B (Bld) [Mass/Vol] 662.9 pg/mL 0-100 [facility] Laboratory - CoagulationOrde red By: Eric West on 07-28-2023 INR Coag (Bld) [Relative time] 1.2 {INR} [facility] PT Coag (PPP) [Time] 14.9 s 11.7-14.9 [facility] Laboratory - Hematology and Cell countsOrdered By: Eric West on 07-28-2023 MCH (RBC) [Entitic mass] 28.0 pg 27.0-32.0 [facility] MCHC (RBC) [Mass/Vol] 31.5 g/dL 32-36 [facility] Nucleated RBC/100 WBC (Bld) [Ratio] 0 % 0-5 [facility] Platelet mean volume (Bld) [Entitic vol] 10.3 fL 6.2-12.0 [facility] Platelets (Bld) [#/Vol] 185 10*3/uL 150-450 [facility] No Panel InformationOrdered By: Sophia Wang on 07-28-2023 Troponin I High Sensitivity 1170 pg/mL 3.0-54.0 [facility] Comment on above: Critical Result(s) C alled at: 18:47:52 07/28/2023 by: JIN BROWN TO RHYS. Results read back by same. Please Note: New Test Units and Gender Specific Reference Ranges. For more information see Policy Stat Procedure [place] High Sensitivity Troponin (TNIH) and attachments. No Panel InformationOrdered By: Eric West on 07-28-2023 Estimated Creatinine Clearance Calc 62.75 ml/min [facility] Estimated GFR (MDRD) Amer 68 mL/min >60 [facility] Comment on above: GFR Calc Estimated GFR (MDRD) Non-Af Amer 56 mL/min >60 [facility] Comment on above: Non- GFR Calc Troponin I High Sensitivity 1595 pg/mL 3.0-54.0 [facility] Comment on above: Critical Result(s) C alled at: 12:40:00 07/28/2023 by: Ha Grady to Shanell Manley. Results read back by same. Please Note: New Test Units and Gender Specific Reference Ranges. For more information see Policy Stat Procedure [place] High Sensitivity Troponin (TNIH) and attachments. RBC Auto (Bld) [#/Vol]Ordere d By: Eric West on 07-28-2023 RBC (Bld) [#/Vol] 4.40 10*6/uL 4.2-5.4 [facility] Serum or plasma calcium barbara urement (mass/volume)Ordered By: Eric West on 07-28-2023 Calcium [Mass/Vol] 9.4 mg/dL 8.5-10.1 [facility] Serum or plasma creatinine m easurement (mass/volume)Ordered By: Eric West on 07-28-2023 Creatinine [Mass/Vol] 1.03 mg/dL 0.55-1.02 [facility] Comment on above: The validity of the calculated GFR & GFRAA in patients over 70 years has not been determined. Clinical correlation is essential. Serum or plasma urea nitroge n measurement (mass/volume)Ordered By: Eric West on 07-28-2023 Urea nitrogen [Mass/Vol] 13 mg/dL 7-18 [facility] Thin prep Papanicolaou smear with manual screeningOrdered By: Eric West on 07-28-2023 Thin prep Papanicolaou smear with manual screening 10 - [facility] Absolute lymphocyte countOrd ered By: Sheeba Velasco on 04-21-2023 Lymphocytes Auto (Unsp spec) [#/Vol] 0.93 10*3/uL 0.83-4.51 [facility] Basophil percentageOrdered B y: Sheeba Velasco on 04-21-2023 Basophils/100 WBC (Bld) 0.4 % 0-1 [facility] Bilirubin [Mass/Vol] 0.30 mg/dL 0.20-1.00 [facility] Comment on above: For patients on eltr ombopag therapy, use of Dimension [place] TBIL is not recommended. Chloride [Moles/Vol] 109 mmol/L 98-107 [facility] Eosinophils/100 WBC (Bld) 1.4 % 0-5 [facility] Glucose [Mass/Vol] 104 mg/dL 74-106 [facility] Comment on above: Fasting Glucose resu lt from 100 to 125 mg/dL suggests IMPAIRED HOMEOSTASIS per A.D.A. criteria. Neutrophils (Bld) [#/Vol] 5.1 10*3/uL 2.0-7.7 [facility] Neutrophils/100 WBC (Bld) 73.7 % 47-70 [facility] Potassium [Moles/Vol] 3.8 mmol/L 3.5-5.1 [facility] Protein [Mass/Vol] 7.3 g/dL 6.4-8.2 [facility] Sodium [Moles/Vol] 139 mmol/L 136-145 [facility] WBC (Bld) [#/Vol] 6.9 10*3/uL 4.4-11.0 [facility] Blood erythrocytes count (nu mber/volume)Ordered By: Sheeba Velasco on 04-21-2023 RBC (Bld) [#/Vol] 4.27 10*6/uL 4.2-5.4 [facility] Blood hemoglobin measurement (mass/volume)Ordered By: Sheeba Velasco on 04-21-2023 Hemoglobin (Bld) [Mass/Vol] 11.9 g/dL 12.0-15.0 [facility] Blood lymphocytes/100 leukoc ytesOrdered By: Sheeba Velasco on 04-21-2023 Lymphocytes/100 WBC (Bld) 13.4 % 19-41 [facility] Blood monocytes/100 leukocyt esOrdered By: Sheeba Velasco on 04-21-2023 Monocytes/100 WBC (Bld) 10.8 % 0-10 [facility] Blood platelet mean volumeOr dered By: Sheeba Velasco on 04-21-2023 Platelet mean volume (Bld) [Entitic vol] 10.9 fL 6.2-12.0 [facility] Determination of erythrocyte mean corpuscular volume (MCV)Ordered By: Sheeba Velasco on 04-21-2023 MCV (RBC) [Entitic vol] 90.9 fL 81-99 [facility] Hematocrit Auto (Bld) [Volum e fraction]Ordered By: Sheeba Velasco on 04-21-2023 Hematocrit (Bld) [Volume fraction] 38.8 % 37-47 [facility] Laboratory - Chemistry and C hemistry - challengeOrdered By: Sheeba Velasco on 04-21-2023 ALP [Catalytic activity/Vol] 79 U/L 45-117 [facility] ALT [Catalytic activity/Vol] 19 U/L 13-56 [facility] CO2 [Moles/Vol] 24.0 mmol/L 21.0-32.0 [facility] Globulin (S) [Mass/Vol] 4.0 g/dL 2.2-4.2 [facility] Urea nitrogen/Creatinine [Mass ratio] 16.0 mg/mg 10-20 [facility] Laboratory - Hematology and Cell countsOrdered By: Sheeba Velasco on 04-21-2023 Erythrocyte distribution width (RBC) [Entitic vol] 49.5 fL 35.1-43.9 [facility] Erythrocyte distribution width (RBC) [Ratio] 15.5 % 11.6-14.6 [facility] Immature granulocytes/100 WBC (Bld) 0.300 % 0.0-0.9 [facility] Comment on above: IG% - Immature Granu locytes (promyelocytes, myelocytes and metamyelocytes) > 1% indicates that a LEFT SHIFT is Present. MCH (RBC) [Entitic mass] 27.9 pg 27.0-32.0 [facility] Nucleated RBC/100 WBC (Bld) [Ratio] 0 % 0-5 [facility] MCHC Auto (RBC) [Mass/Vol]Or dered By: Sheeba Velasco on 04-21-2023 MCHC (RBC) [Mass/Vol] 30.7 g/dL 32-36 [facility] No Panel InformationOrdered By: Sheeba Velasco on 04-21-2023 Estimated GFR (MDRD) Amer 76 mL/min >60 [facility] Comment on above: GFR Calc Estimated GFR (MDRD) Non-Af Amer 63 mL/min >60 [facility] Comment on above: Non- GFR Calc Platelets bldOrdered By: Josh Velasco on 04-21-2023 Platelets (Bld) [#/Vol] 203 10*3/uL 150-450 [facility] Serum or plasma albumin barbara urement (mass/volume)Ordered By: Sheeba Velasco on 04-21-2023 Albumin [Mass/Vol] 3.3 g/dL 3.2-5.0 [facility] Serum or plasma albumin/glob ulin mass ratioOrdered By: Sheeba Velasco on 04-21-2023 Albumin/Globulin [Mass ratio] 0.8 {ratio} 0.9-2.4 [facility] Serum or plasma calcium barbara urement (mass/volume)Ordered By: Sheeba Velasco on 04-21-2023 Calcium [Mass/Vol] 9.0 mg/dL 8.5-10.1 [facility] Serum or plasma creatinine m easurement (mass/volume)Ordered By: Sheeba Velasco on 04-21-2023 Creatinine [Mass/Vol] 0.94 mg/dL 0.55-1.02 [facility] Comment on above: The validity of the calculated GFR & GFRAA in patients over 70 years has not been determined. Clinical correlation is essential. Serum or plasma urea nitroge n measurement (mass/volume)Ordered By: Sheeba Velasco on 04-21-2023 Urea nitrogen [Mass/Vol] 15 mg/dL 7-18 [facility] Thin prep Papanicolaou smear with manual screeningOrdered By: Sheeba Velasco on 04-21-2023 Thin prep Papanicolaou smear with manual screening 16 U/L 15-37 [facility] Thin prep Papanicolaou smear with manual screening 6 5-15 [facility] Absolute lymphocyte countOrd ered By: Sheeba Velasco on 02-12-2023 Lymphocytes Auto (Unsp spec) [#/Vol] 0.93 10*3/uL 0.83-4.51 [facility] Basophil percentageOrdered B y: Sheeba Velasco on 02-12-2023 Basophils/100 WBC (Bld) 0.7 % 0-1 [facility] Bilirubin [Mass/Vol] 0.40 mg/dL 0.20-1.00 [facility] Comment on above: For patients on eltr ombopag therapy, use of Dimension [place] TBIL is not recommended. Chloride [Moles/Vol] 109 mmol/L 98-107 [facility] Eosinophils/100 WBC (Bld) 1.8 % 0-5 [facility] Glucose [Mass/Vol] 110 mg/dL 74-106 [facility] Comment on above: Fasting Glucose resu lt from 100 to 125 mg/dL suggests IMPAIRED HOMEOSTASIS per A.D.A. criteria. Neutrophils (Bld) [#/Vol] 2.8 10*3/uL 2.0-7.7 [facility] Neutrophils/100 WBC (Bld) 64.3 % 47-70 [facility] Potassium [Moles/Vol] 3.9 mmol/L 3.5-5.1 [facility] Protein [Mass/Vol] 6.9 g/dL 6.4-8.2 [facility] Sodium [Moles/Vol] 140 mmol/L 136-145 [facility] WBC (Bld) [#/Vol] 4.4 10*3/uL 4.4-11.0 [facility] Blood erythrocytes count (nu mber/volume)Ordered By: Sheeba Velasco on 02-12-2023 RBC (Bld) [#/Vol] 4.03 10*6/uL 4.2-5.4 [facility] Blood hemoglobin measurement (mass/volume)Ordered By: Sheeba Velasco on 02-12-2023 Hemoglobin (Bld) [Mass/Vol] 10.9 g/dL 12.0-15.0 [facility] Blood lymphocytes/100 leukoc ytesOrdered By: Sheeba Velasco on 02-12-2023 Lymphocytes/100 WBC (Bld) 21.1 % 19-41 [facility] Blood monocytes/100 leukocyt esOrdered By: Sheeba Velasco on 02-12-2023 Monocytes/100 WBC (Bld) 11.6 % 0-10 [facility] Blood platelet mean volumeOr dered By: Sheeba Velasco on 02-12-2023 Platelet mean volume (Bld) [Entitic vol] 11.3 fL 6.2-12.0 [facility] Determination of erythrocyte mean corpuscular volume (MCV)Ordered By: Sheeba Velasco on 02-12-2023 MCV (RBC) [Entitic vol] 92.3 fL 81-99 [facility] Hematocrit Auto (Bld) [Volum e fraction]Ordered By: Sheeba Velasco on 02-12-2023 Hematocrit (Bld) [Volume fraction] 37.2 % 37-47 [facility] Laboratory - Chemistry and C hemistry - challengeOrdered By: Sheeba Velasco on 02-12-2023 ALP [Catalytic activity/Vol] 73 U/L 45-117 [facility] ALT [Catalytic activity/Vol] 19 U/L 13-56 [facility] CO2 [Moles/Vol] 24.0 mmol/L 21.0-32.0 [facility] Globulin (S) [Mass/Vol] 3.7 g/dL 2.2-4.2 [facility] Urea nitrogen/Creatinine [Mass ratio] 14.8 mg/mg 10-20 [facility] Laboratory - Hematology and Cell countsOrdered By: Sheeba Velasco on 02-12-2023 Erythrocyte distribution width (RBC) [Entitic vol] 51.5 fL 35.1-43.9 [facility] Erythrocyte distribution width (RBC) [Ratio] 15.5 % 11.6-14.6 [facility] Immature granulocytes/100 WBC (Bld) 0.500 % 0.0-0.9 [facility] Comment on above: IG% - Immature Granu locytes (promyelocytes, myelocytes and metamyelocytes) > 1% indicates that a LEFT SHIFT is Present. MCH (RBC) [Entitic mass] 27.0 pg 27.0-32.0 [facility] Nucleated RBC/100 WBC (Bld) [Ratio] 0 % 0-5 [facility] MCHC Auto (RBC) [Mass/Vol]Or dered By: Sheeba Velasco on 02-12-2023 MCHC (RBC) [Mass/Vol] 29.3 g/dL 32-36 [facility] No Panel InformationOrdered By: Sheeba Velasco on 02-12-2023 Estimated GFR (MDRD) Amer 75 mL/min >60 [facility] Comment on above: GFR Calc Estimated GFR (MDRD) Non-Af Amer 62 mL/min >60 [facility] Comment on above: Non- GFR Calc Platelets bldOrdered By: Josh Velasco on 02-12-2023 Platelets (Bld) [#/Vol] 203 10*3/uL 150-450 [facility] Serum or plasma albumin barbara urement (mass/volume)Ordered By: Sheeba Velasco on 02-12-2023 Albumin [Mass/Vol] 3.2 g/dL 3.2-5.0 [facility] Serum or plasma albumin/glob ulin mass ratioOrdered By: Sheeba Velasco on 02-12-2023 Albumin/Globulin [Mass ratio] 0.9 {ratio} 0.9-2.4 [facility] Serum or plasma calcium barbara urement (mass/volume)Ordered By: Sheeba Velasco on 02-12-2023 Calcium [Mass/Vol] 9.1 mg/dL 8.5-10.1 [facility] Serum or plasma creatinine m easurement (mass/volume)Ordered By: Sheeba Velasco on 02-12-2023 Creatinine [Mass/Vol] 0.95 mg/dL 0.55-1.02 [facility] Comment on above: The validity of the calculated GFR & GFRAA in patients over 70 years has not been determined. Clinical correlation is essential. Serum or plasma urea nitroge n measurement (mass/volume)Ordered By: Sheeba Velasco on 02-12-2023 Urea nitrogen [Mass/Vol] 14 mg/dL 7-18 [facility] Thin prep Papanicolaou smear with manual screeningOrdered By: Sheeba Velasco on 02-12-2023 Thin prep Papanicolaou smear with manual screening 18 U/L 15-37 [facility] Thin prep Papanicolaou smear with manual screening 7 5-15 [facility] XR TOE AP/LAT/OBL RIGHTon [facility] XR Toes - right 3 Viewson IMPRESSION: Proximal and distal phalanx fractures in the second digit. 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: LISA Transcribe Date/Time: Jan 29 2023 12:49P Dictated by : PATSY LEVY MD This examination was interpreted and the report reviewed and electronically signed by: PATSY LEVY MD on Jan 29 2023 12:53PM [facility] DIVISION OF RADIOLOGY * * [...] tissue swelling. DIVISION [facility] RADIOLOGY [facility] * * *Final Report* * [...] distal phalanx fractures in the second digit. 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: LISA Transcribe Date/Time: Jan 29 2023 12:49P Dictated by : PATSY LEVY MD This examination was interpreted and the report reviewed and electronically signed by: PATSY LEVY MD on Jan 29 2023 12:53PM EST [facility] Radiology Study observation (narrative) [facility] XR Toes - right 3 ViewsOrder ed By: [facility] Provider on 01-29-2023 [facility] Absolute lymphocyte countOrd ered By: Sheeba Velasco on 12-13-2022 Lymphocytes Auto (Unsp spec) [#/Vol] 1.17 10*3/uL 0.83-4.51 [facility] Basophil percentageOrdered B y: Sheeba Velasco on 12-13-2022 Basophils/100 WBC (Bld) 0.8 % 0-1 [facility] Bilirubin [Mass/Vol] 0.30 mg/dL 0.20-1.00 [facility] Comment on above: For patients on eltr ombopag therapy, use of Dimension [place] TBIL is not recommended. Chloride [Moles/Vol] 108 mmol/L 98-107 [facility] Eosinophils/100 WBC (Bld) 2.0 % 0-5 [facility] Glucose [Mass/Vol] 99 mg/dL 74-106 [facility] Neutrophils (Bld) [#/Vol] 2.3 10*3/uL 2.0-7.7 [facility] Neutrophils/100 WBC (Bld) 56.8 % 47-70 [facility] Potassium [Moles/Vol] 3.7 mmol/L 3.5-5.1 [facility] Protein [Mass/Vol] 6.8 g/dL 6.4-8.2 [facility] Sodium [Moles/Vol] 141 mmol/L 136-145 [facility] WBC (Bld) [#/Vol] 4.0 10*3/uL 4.4-11.0 [facility] Blood erythrocytes count (nu mber/volume)Ordered By: Sheeba Velasco on 12-13-2022 RBC (Bld) [#/Vol] 4.30 10*6/uL 4.2-5.4 [facility] Blood hemoglobin measurement (mass/volume)Ordered By: Sheeba Velasco on 12-13-2022 Hemoglobin (Bld) [Mass/Vol] 11.5 g/dL 12.0-15.0 [facility] Blood lymphocytes/100 leukoc ytesOrdered By: Sheeba Velasco on 12-13-2022 Lymphocytes/100 WBC (Bld) 29.3 % 19-41 [facility] Blood monocytes/100 leukocyt esOrdered By: Sheeba Velasco on 12-13-2022 Monocytes/100 WBC (Bld) 10.8 % 0-10 [facility] Blood platelet mean volumeOr dered By: Sheeba Velasco on 12-13-2022 Platelet mean volume (Bld) [Entitic vol] 10.6 fL 6.2-12.0 [facility] Determination of erythrocyte mean corpuscular volume (MCV)Ordered By: Sheeba Velasco on 09-01-2023 MCV (RBC) [Entitic vol] 90.2 fL 81-99 [facility] Hematocrit Auto (Bld) [Volum e fraction]Ordered By: Sheeba Velasco on 12-13-2022 Hematocrit (Bld) [Volume fraction] 38.8 % 37-47 [facility] Laboratory - Chemistry and C hemistry - challengeOrdered By: Sheeba Velasco on 12-13-2022 ALP [Catalytic activity/Vol] 71 U/L 45-117 [facility] ALT [Catalytic activity/Vol] 15 U/L 13-56 [facility] CO2 [Moles/Vol] 26.0 mmol/L 21.0-32.0 [facility] Globulin (S) [Mass/Vol] 3.6 g/dL 2.2-4.2 [facility] Urea nitrogen/Creatinine [Mass ratio] 9.7 mg/mg 10-20 [facility] Laboratory - Hematology and Cell countsOrdered By: Sheeba Velasco on 12-13-2022 Erythrocyte distribution width (RBC) [Entitic vol] 51.7 fL 35.1-43.9 [facility] Erythrocyte distribution width (RBC) [Ratio] 15.8 % 11.6-14.6 [facility] Immature granulocytes/100 WBC (Bld) 0.300 % 0.0-0.9 [facility] Comment on above: IG% - Immature Granu locytes (promyelocytes, myelocytes and metamyelocytes) > 1% indicates that a LEFT SHIFT is Present. MCH (RBC) [Entitic mass] 26.7 pg 27.0-32.0 [facility] Nucleated RBC/100 WBC (Bld) [Ratio] 0 % 0-5 [facility] MCHC Auto (RBC) [Mass/Vol]Or dered By: Sheeba Velasco on 12-13-2022 MCHC (RBC) [Mass/Vol] 29.6 g/dL 32-36 [facility] No Panel InformationOrdered By: Sheeba Velasco on 12-13-2022 Estimated GFR (MDRD) Amer 77 mL/min >60 [facility] Comment on above: GFR Calc Estimated GFR (MDRD) Non-Af Amer 64 mL/min >60 [facility] Comment on above: Non- GFR Calc Platelets bldOrdered By: Josh Velasco on 12-13-2022 Platelets (Bld) [#/Vol] 199 10*3/uL 150-450 [facility] Serum or plasma albumin barbara urement (mass/volume)Ordered By: Sheeba Velasco on 12-13-2022 Albumin [Mass/Vol] 3.2 g/dL 3.2-5.0 [facility] Serum or plasma albumin/glob ulin mass ratioOrdered By: Sheeba Velasco on 12-13-2022 Albumin/Globulin [Mass ratio] 0.9 {ratio} 0.9-2.4 [facility] Serum or plasma calcium barbara urement (mass/volume)Ordered By: Sheeba Velasco on 12-13-2022 Calcium [Mass/Vol] 9.0 mg/dL 8.5-10.1 [facility] Serum or plasma creatinine m easurement (mass/volume)Ordered By: Sheeba Velasco on 12-13-2022 Creatinine [Mass/Vol] 0.92 mg/dL 0.55-1.02 [facility] Comment on above: The validity of the calculated GFR & GFRAA in patients over 70 years has not been determined. Clinical correlation is essential. Serum or plasma urea nitroge n measurement (mass/volume)Ordered By: Sheeba Velasco on 12-13-2022 Urea nitrogen [Mass/Vol] 9 mg/dL 7-18 [facility] Thin prep Papanicolaou smear with manual screeningOrdered By: Sheeba Velasco on 12-13-2022 Thin prep Papanicolaou smear with manual screening 15 U/L 15-37 [facility] Thin prep Papanicolaou smear with manual screening 7 5-15 [facility] Absolute lymphocyte countOrd ered By: Sheeba Velasco on 10-03-2022 Lymphocytes Auto (Unsp spec) [#/Vol] 2.36 10*3/uL 0.83-4.51 [facility] Basophil percentageOrdered B y: Sheeba Velasco on 10-03-2022 Basophils/100 WBC (Bld) 0.3 % 0-1 [facility] Bilirubin [Mass/Vol] 0.30 mg/dL 0.20-1.00 [facility] Comment on above: For patients on eltr ombopag therapy, use of Dimension [place] TBIL is not recommended. Chloride [Moles/Vol] 108 mmol/L 98-107 [facility] Eosinophils/100 WBC (Bld) 0.3 % 0-5 [facility] Glucose [Mass/Vol] 88 mg/dL 74-106 [facility] Neutrophils (Bld) [#/Vol] 3.2 10*3/uL 2.0-7.7 [facility] Neutrophils/100 WBC (Bld) 52.1 % 47-70 [facility] Potassium [Moles/Vol] 3.3 mmol/L 3.5-5.1 [facility] Protein [Mass/Vol] 6.9 g/dL 6.4-8.2 [facility] Sodium [Moles/Vol] 141 mmol/L 136-145 [facility] WBC (Bld) [#/Vol] 6.2 10*3/uL 4.4-11.0 [facility] Blood erythrocytes count (nu mber/volume)Ordered By: Sheeba Velasco on 10-03-2022 RBC (Bld) [#/Vol] 4.20 10*6/uL 4.2-5.4 [facility] Blood hemoglobin measurement (mass/volume)Ordered By: Sheeba Velasco on 10-03-2022 Hemoglobin (Bld) [Mass/Vol] 11.0 g/dL 12.0-15.0 [facility] Blood lymphocytes/100 leukoc ytesOrdered By: Sheeba Velasco on 10-03-2022 Lymphocytes/100 WBC (Bld) 38.1 % 19-41 [facility] Blood monocytes/100 leukocyt esOrdered By: Sheeba Velasco on 10-03-2022 Monocytes/100 WBC (Bld) 8.7 % 0-10 [facility] Blood platelet mean volumeOr dered By: Sheeba Velasco on 10-03-2022 Platelet mean volume (Bld) [Entitic vol] 9.6 fL 6.2-12.0 [facility] Determination of erythrocyte mean corpuscular volume (MCV)Ordered By: Sheeba Velasco on 10-03-2022 MCV (RBC) [Entitic vol] 87.4 fL 81-99 [facility] Hematocrit Auto (Bld) [Volum e fraction]Ordered By: Sheeba Velasco on 10-03-2022 Hematocrit (Bld) [Volume fraction] 36.7 % 37-47 [facility] Laboratory - Chemistry and C hemistry - challengeOrdered By: Sheeba Velasco on 10-03-2022 ALP [Catalytic activity/Vol] 63 U/L 45-117 [facility] ALT [Catalytic activity/Vol] 14 U/L 13-56 [facility] CO2 [Moles/Vol] 25.0 mmol/L 21.0-32.0 [facility] Globulin (S) [Mass/Vol] 3.9 g/dL 2.2-4.2 [facility] Urea nitrogen/Creatinine [Mass ratio] 16.9 mg/mg 10-20 [facility] Laboratory - Hematology and Cell countsOrdered By: Sheeba Velasco on 10-03-2022 Erythrocyte distribution width (RBC) [Entitic vol] 47.7 fL 35.1-43.9 [facility] Erythrocyte distribution width (RBC) [Ratio] 15.6 % 11.6-14.6 [facility] Immature granulocytes/100 WBC (Bld) 0.500 % 0.0-0.9 [facility] Comment on above: IG% - Immature Granu locytes (promyelocytes, myelocytes and metamyelocytes) > 1% indicates that a LEFT SHIFT is Present. MCH (RBC) [Entitic mass] 26.2 pg 27.0-32.0 [facility] Nucleated RBC/100 WBC (Bld) [Ratio] 0 % 0-5 [facility] MCHC Auto (RBC) [Mass/Vol]Or dered By: Sheeba Velasco on 10-03-2022 MCHC (RBC) [Mass/Vol] 30.0 g/dL 32-36 [facility] No Panel InformationOrdered By: Sheeba Velasco on 10-03-2022 Estimated GFR (MDRD) Amer 88 mL/min >60 [facility] Comment on above: GFR Calc Estimated GFR (MDRD) Non-Af Amer 72 mL/min >60 [facility] Comment on above: Non- GFR Calc Platelets bldOrdered By: Josh Velasco on 10-03-2022 Platelets (Bld) [#/Vol] 232 10*3/uL 150-450 [facility] Serum or plasma albumin barbara urement (mass/volume)Ordered By: Sheeba Velasco on 10-03-2022 Albumin [Mass/Vol] 3.0 g/dL 3.2-5.0 [facility] Serum or plasma albumin/glob ulin mass ratioOrdered By: Sheeba Velasco on 10-03-2022 Albumin/Globulin [Mass ratio] 0.8 {ratio} 0.9-2.4 [facility] Serum or plasma calcium barbara urement (mass/volume)Ordered By: Sheeba Velasco on 10-03-2022 Calcium [Mass/Vol] 9.2 mg/dL 8.5-10.1 [facility] Serum or plasma creatinine m easurement (mass/volume)Ordered By: Sheeba Velasco on 10-03-2022 Creatinine [Mass/Vol] 0.83 mg/dL 0.55-1.02 [facility] Comment on above: The validity of the calculated GFR & GFRAA in patients over 70 years has not been determined. Clinical correlation is essential. Serum or plasma urea nitroge n measurement (mass/volume)Ordered By: Sheeba Velasco on 10-03-2022 Urea nitrogen [Mass/Vol] 14 mg/dL 7-18 [facility] Thin prep Papanicolaou smear with manual screeningOrdered By: Sheeba Velasco on 10-03-2022 Thin prep Papanicolaou smear with manual screening 11 U/L 15-37 [facility] Thin prep Papanicolaou smear with manual screening 8 5-15 [facility] XR CHEST 2V FRONTAL/LATon [facility] XR Chest PA and Lateralon IMPRESSION: No acute radiographic abnormality. 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: [employer] Transcribe Date/Time: Sep 26 2022 9:28A Dictated by : VASQUEZ BESS MD This examination was interpreted and the report reviewed and electronically signed by: VASQUEZ BESS MD on Sep 26 2022 9:32AM [facility] DIVISION OF RADIOLOGY * * [...] the thoracic spine. DIVISION OF RADIOLOGY Provider, [facility] - 09/26/2022 * * *Final [...] spine. IMPRESSION IMPRESSION: No acute radiographic abnormality. 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: [employer] Transcribe Date/Time: Sep 26 2022 9:28A Dictated by : VASQUEZ BESS MD This examination was interpreted and the report reviewed and electronically signed by: VASQUEZ BESS MD on Sep 26 2022 9:32AM EST [facility] Radiology Study observation (narrative) [facility] XR Chest PA and LateralOrder ed By: [facility] Provider on 09-26-2022 [facility] Absolute lymphocyte countOrd ered By: Dr. Velasco on 09-05-2022 Lymphocytes Auto (Unsp spec) [#/Vol] 1.04 10*3/uL 0.83-4.51 [facility] Basophil percentageOrdered B y: Dr. Velasco on 09-05-2022 Basophils/100 WBC (Bld) 0.8 % 0-1 [facility] Bilirubin [Mass/Vol] 0.30 mg/dL 0.20-1.00 [facility] Comment on above: For patients on eltr ombopag therapy, use of Dimension [place] TBIL is not recommended. Chloride [Moles/Vol] 109 mmol/L 98-107 [facility] Eosinophils/100 WBC (Bld) 0.8 % 0-5 [facility] Glucose [Mass/Vol] 109 mg/dL 74-106 [facility] Comment on above: Fasting Glucose resu lt from 100 to 125 mg/dL suggests IMPAIRED HOMEOSTASIS per A.D.A. criteria. Neutrophils (Bld) [#/Vol] 2.4 10*3/uL 2.0-7.7 [facility] Neutrophils/100 WBC (Bld) 60.5 % 47-70 [facility] Potassium [Moles/Vol] 3.9 mmol/L 3.5-5.1 [facility] Protein [Mass/Vol] 6.8 g/dL 6.4-8.2 [facility] Sodium [Moles/Vol] 141 mmol/L 136-145 [facility] WBC (Bld) [#/Vol] 4.0 10*3/uL 4.4-11.0 [facility] Blood erythrocytes count (nu mber/volume)Ordered By: Dr. Velasco on 09-05-2022 RBC (Bld) [#/Vol] 4.00 10*6/uL 4.2-5.4 [facility] Blood hemoglobin measurement (mass/volume)Ordered By: Dr. Velasco on 09-05-2022 Hemoglobin (Bld) [Mass/Vol] 10.4 g/dL 12.0-15.0 [facility] Blood lymphocytes/100 leukoc ytesOrdered By: Dr. Velasco on 09-05-2022 Lymphocytes/100 WBC (Bld) 26.1 % 19-41 [facility] Blood monocytes/100 leukocyt esOrdered By: Dr. Velasco on 09-05-2022 Monocytes/100 WBC (Bld) 11.5 % 0-10 [facility] Blood platelet mean volumeOr dered By: Dr. Velasco on 09-05-2022 Platelet mean volume (Bld) [Entitic vol] 11.0 fL 6.2-12.0 [facility] Determination of erythrocyte mean corpuscular volume (MCV)Ordered By: Dr. Velasco on 09-05-2022 MCV (RBC) [Entitic vol] 87.0 fL 81-99 [facility] Hematocrit Auto (Bld) [Volum e fraction]Ordered By: Dr. Velasco on 09-05-2022 Hematocrit (Bld) [Volume fraction] 34.8 % 37-47 [facility] Laboratory - Chemistry and C hemistry - challengeOrdered By: Dr. Velasco on 09-05-2022 ALP [Catalytic activity/Vol] 69 U/L 45-117 [facility] ALT [Catalytic activity/Vol] 16 U/L 13-56 [facility] CO2 [Moles/Vol] 26.0 mmol/L 21.0-32.0 [facility] Globulin (S) [Mass/Vol] 3.9 g/dL 2.2-4.2 [facility] Urea nitrogen/Creatinine [Mass ratio] 14.3 mg/mg 10-20 [facility] Laboratory - Hematology and Cell countsOrdered By: Dr. Velasco on 09-05-2022 Erythrocyte distribution width (RBC) [Entitic vol] 46.7 fL 35.1-43.9 [facility] Erythrocyte distribution width (RBC) [Ratio] 14.6 % 11.6-14.6 [facility] Immature granulocytes/100 WBC (Bld) 0.300 % 0.0-0.9 [facility] Comment on above: IG% - Immature Granu locytes (promyelocytes, myelocytes and metamyelocytes) > 1% indicates that a LEFT SHIFT is Present. MCH (RBC) [Entitic mass] 26.0 pg 27.0-32.0 [facility] Nucleated RBC/100 WBC (Bld) [Ratio] 0 % 0-5 [facility] MCHC Auto (RBC) [Mass/Vol]Or dered By: Dr. Velasco on 09-05-2022 MCHC (RBC) [Mass/Vol] 29.9 g/dL 32-36 [facility] No Panel InformationOrdered By: Dr. Velasco on 09-05-2022 Estimated GFR (MDRD) Amer 86 mL/min >60 [facility] Comment on above: GFR Calc Estimated GFR (MDRD) Non-Af Amer 71 mL/min >60 [facility] Comment on above: Non- GFR Calc Platelets bldOrdered By: Dr. Velasco on 09-05-2022 Platelets (Bld) [#/Vol] 205 10*3/uL 150-450 [facility] Serum or plasma albumin barbara urement (mass/volume)Ordered By: Dr. Velasco on 09-05-2022 Albumin [Mass/Vol] 2.9 g/dL 3.2-5.0 [facility] Serum or plasma albumin/glob ulin mass ratioOrdered By: Dr. Velasco on 09-05-2022 Albumin/Globulin [Mass ratio] 0.7 {ratio} 0.9-2.4 [facility] Serum or plasma calcium barbara urement (mass/volume)Ordered By: Dr. Velasco on 09-05-2022 Calcium [Mass/Vol] 9.1 mg/dL 8.5-10.1 [facility] Serum or plasma creatinine m easurement (mass/volume)Ordered By: Dr. Velasco on 09-05-2022 Creatinine [Mass/Vol] 0.84 mg/dL 0.55-1.02 [facility] Comment on above: The validity of the calculated GFR & GFRAA in patients over 70 years has not been determined. Clinical correlation is essential. Serum or plasma urea nitroge n measurement (mass/volume)Ordered By: Dr. Velasco on 09-05-2022 Urea nitrogen [Mass/Vol] 12 mg/dL 7-18 [facility] Thin prep Papanicolaou smear with manual screeningOrdered By: Dr. Velasco on 09-05-2022 Thin prep Papanicolaou smear with manual screening 14 U/L 15-37 [facility] Thin prep Papanicolaou smear with manual screening 6 5-15 [facility] Absolute lymphocyte countOrd ered By: Dr. Lozano on 08-22-2022 Lymphocytes Auto (Unsp spec) [#/Vol] 2.37 10*3/uL 0.83-4.51 [facility] Basophil percentageOrdered B y: Dr. Lozano on 08-22-2022 Basophils/100 WBC (Bld) 0.5 % 0-1 [facility] Bilirubin [Mass/Vol] 0.30 mg/dL 0.20-1.00 [facility] Comment on above: For patients on eltr ombopag therapy, use of Dimension [place] TBIL is not recommended. Chloride [Moles/Vol] 111 mmol/L 98-107 [facility] Eosinophils/100 WBC (Bld) 0.3 % 0-5 [facility] Glucose [Mass/Vol] 92 mg/dL 74-106 [facility] Neutrophils (Bld) [#/Vol] 3.6 10*3/uL 2.0-7.7 [facility] Neutrophils/100 WBC (Bld) 53.5 % 47-70 [facility] Potassium [Moles/Vol] 3.3 mmol/L 3.5-5.1 [facility] Protein [Mass/Vol] 6.7 g/dL 6.4-8.2 [facility] Sodium [Moles/Vol] 144 mmol/L 136-145 [facility] WBC (Bld) [#/Vol] 6.6 10*3/uL 4.4-11.0 [facility] Blood erythrocytes count (nu mber/volume)Ordered By: Dr. Lozano on 08-22-2022 RBC (Bld) [#/Vol] 4.03 10*6/uL 4.2-5.4 [facility] Blood hemoglobin measurement (mass/volume)Ordered By: Dr. Lozano on 08-22-2022 Hemoglobin (Bld) [Mass/Vol] 10.3 g/dL 12.0-15.0 [facility] Blood lymphocytes/100 leukoc ytesOrdered By: Dr. Lozano on 08-22-2022 Lymphocytes/100 WBC (Bld) 35.7 % 19-41 [facility] Blood monocytes/100 leukocyt esOrdered By: Dr. Lozano on 08-22-2022 Monocytes/100 WBC (Bld) 9.5 % 0-10 [facility] Blood platelet mean volumeOr dered By: Dr. Lozano on 08-22-2022 Platelet mean volume (Bld) [Entitic vol] 11.0 fL 6.2-12.0 [facility] Determination of erythrocyte mean corpuscular volume (MCV)Ordered By: Dr. Lozano on 08-22-2022 MCV (RBC) [Entitic vol] 88.6 fL 81-99 [facility] Erythrocyte sedimentation ra teOrdered By: Dr. Lozano on 08-22-2022 ESR (Bld) [Velocity] 25 mm/h 0-30 [facility] Hematocrit Auto (Bld) [Volum e fraction]Ordered By: Dr. Lozano on 08-22-2022 Hematocrit (Bld) [Volume fraction] 35.7 % 37-47 [facility] Laboratory - Chemistry and C hemistry - challengeOrdered By: Dr. Lozano on 08-22-2022 ALP [Catalytic activity/Vol] 67 U/L 45-117 [facility] ALT [Catalytic activity/Vol] 16 U/L 13-56 [facility] CO2 [Moles/Vol] 25.0 mmol/L 21.0-32.0 [facility] Globulin (S) [Mass/Vol] 3.8 g/dL 2.2-4.2 [facility] Magnesium [Mass/Vol] 2.1 mg/dL 1.6-2.6 [facility] Urea nitrogen/Creatinine [Mass ratio] 20.9 mg/mg 10-20 [facility] Laboratory - Hematology and Cell countsOrdered By: Dr. Lozano on 08-22-2022 Erythrocyte distribution width (RBC) [Entitic vol] 46.8 fL 35.1-43.9 [facility] Erythrocyte distribution width (RBC) [Ratio] 14.6 % 11.6-14.6 [facility] Immature granulocytes/100 WBC (Bld) 0.500 % 0.0-0.9 [facility] Comment on above: IG% - Immature Granu locytes (promyelocytes, myelocytes and metamyelocytes) > 1% indicates that a LEFT SHIFT is Present. MCH (RBC) [Entitic mass] 25.6 pg 27.0-32.0 [facility] Nucleated RBC/100 WBC (Bld) [Ratio] 0 % 0-5 [facility] MCHC Auto (RBC) [Mass/Vol]Or dered By: Dr. Lozano on 08-22-2022 MCHC (RBC) [Mass/Vol] 28.9 g/dL 32-36 [facility] No Panel InformationOrdered By: Dr. Lozano on 08-22-2022 Estimated GFR (MDRD) Amer 89 mL/min >60 [facility] Comment on above: GFR Calc Estimated GFR (MDRD) Non-Af Amer 74 mL/min >60 [facility] Comment on above: Non- GFR Calc Platelets bldOrdered By: Dr. Lozano on 08-22-2022 Platelets (Bld) [#/Vol] 233 10*3/uL 150-450 [facility] Serum or plasma C reactive p rotein measurement (mass/volume)Ordered By: Dr. Lozano on 08-22-2022 CRP [Mass/Vol] 8.73 mg/L 0.0-3.0 [facility] Comment on above: C-Reactive Protein ( CRP) provides useful information for thediagnosis, therapy and monitoring of inflammatory processesand associated diseases. For the evaluation of Relative Riskfor Cardiovascular Disease, a High Sensitivity CRP (HSCRP)should be ordered. Serum or plasma albumin barbara urement (mass/volume)Ordered By: Dr. Lozano on 08-22-2022 Albumin [Mass/Vol] 2.9 g/dL 3.2-5.0 [facility] Serum or plasma albumin/glob ulin mass ratioOrdered By: Dr. Lozano on 08-22-2022 Albumin/Globulin [Mass ratio] 0.8 {ratio} 0.9-2.4 [facility] Serum or plasma calcium barbara urement (mass/volume)Ordered By: Dr. Lozano on 08-22-2022 Calcium [Mass/Vol] 8.7 mg/dL 8.5-10.1 [facility] Serum or plasma creatinine m easurement (mass/volume)Ordered By: Dr. Lozano on 08-22-2022 Creatinine [Mass/Vol] 0.81 mg/dL 0.55-1.02 [facility] Comment on above: The validity of the calculated GFR & GFRAA in patients over 70 years has not been determined. Clinical correlation is essential. Serum or plasma urea nitroge n measurement (mass/volume)Ordered By: Dr. Lozano on 08-22-2022 Urea nitrogen [Mass/Vol] 17 mg/dL 7-18 [facility] Serum or plasma uric acid me asurement (mass/volume)Ordered By: Dr. Lozano on 08-22-2022 Urate [Mass/Vol] 4.0 mg/dL 2.6-6.0 [facility] Comment on above: The drugs N-Acetylcy steine and Metamizole may falsely depress this assay. Thin prep Papanicolaou smear with manual screeningOrdered By: Dr. Lozano on 08-22-2022 Thin prep Papanicolaou smear with manual screening 12 U/L 15-37 [facility] Thin prep Papanicolaou smear with manual screening 8 5-15 [facility] Absolute lymphocyte countOrd ered By: Dr. Velasco on 06-12-2022 Lymphocytes Auto (Unsp spec) [#/Vol] 1.38 10*3/uL 0.83-4.51 [facility] Basophil percentageOrdered B y: Dr. Velasco on 06-12-2022 Basophils/100 WBC (Bld) 0.8 % 0-1 [facility] Bilirubin [Mass/Vol] 0.40 mg/dL 0.20-1.00 [facility] Comment on above: For patients on eltr ombopag therapy, use of Dimension [place] TBIL is not recommended. Chloride [Moles/Vol] 110 mmol/L 98-107 [facility] Eosinophils/100 WBC (Bld) 0.6 % 0-5 [facility] Glucose [Mass/Vol] 111 mg/dL 74-106 [facility] Comment on above: Fasting Glucose resu lt from 100 to 125 mg/dL suggests IMPAIRED HOMEOSTASIS per A.D.A. criteria. Neutrophils (Bld) [#/Vol] 2.9 10*3/uL 2.0-7.7 [facility] Neutrophils/100 WBC (Bld) 58.8 % 47-70 [facility] Potassium [Moles/Vol] 3.8 mmol/L 3.5-5.1 [facility] Protein [Mass/Vol] 7.1 g/dL 6.4-8.2 [facility] Sodium [Moles/Vol] 141 mmol/L 136-145 [facility] WBC (Bld) [#/Vol] 4.9 10*3/uL 4.4-11.0 [facility] Blood erythrocytes count (nu mber/volume)Ordered By: Dr. Velasco on 06-12-2022 RBC (Bld) [#/Vol] 4.46 10*6/uL 4.2-5.4 [facility] Blood hemoglobin measurement (mass/volume)Ordered By: Dr. Velasco on 06-12-2022 Hemoglobin (Bld) [Mass/Vol] 11.3 g/dL 12.0-15.0 [facility] Blood lymphocytes/100 leukoc ytesOrdered By: Dr. Velasco on 06-12-2022 Lymphocytes/100 WBC (Bld) 28.5 % 19-41 [facility] Blood monocytes/100 leukocyt esOrdered By: Dr. Velasco on 06-12-2022 Monocytes/100 WBC (Bld) 10.9 % 0-10 [facility] Blood platelet mean volumeOr dered By: Dr. Velasco on 06-12-2022 Platelet mean volume (Bld) [Entitic vol] 11.4 fL 6.2-12.0 [facility] Determination of erythrocyte mean corpuscular volume (MCV)Ordered By: Dr. Velasco on 06-12-2022 MCV (RBC) [Entitic vol] 86.1 fL 81-99 [facility] Hematocrit Auto (Bld) [Volum e fraction]Ordered By: Dr. Velasco on 06-12-2022 Hematocrit (Bld) [Volume fraction] 38.4 % 37-47 [facility] Laboratory - Chemistry and C hemistry - challengeOrdered By: Dr. Velasco on 06-12-2022 ALP [Catalytic activity/Vol] 67 U/L 45-117 [facility] ALT [Catalytic activity/Vol] 14 U/L 13-56 [facility] CO2 [Moles/Vol] 24.0 mmol/L 21.0-32.0 [facility] Globulin (S) [Mass/Vol] 3.9 g/dL 2.2-4.2 [facility] Urea nitrogen/Creatinine [Mass ratio] 16.8 mg/mg 10-20 [facility] - Hematology and Cell countsOrdered By: Dr. Velasco on 06-12-2022 Erythrocyte distribution width (RBC) [Entitic vol] 45.8 fL 35.1-43.9 [facility] Erythrocyte distribution width (RBC) [Ratio] 14.6 % 11.6-14.6 [facility] Immature granulocytes/100 WBC (Bld) 0.400 % 0.0-0.9 [facility] Comment on above: IG% - Immature Granu locytes (promyelocytes, myelocytes and metamyelocytes) > 1% indicates that a LEFT SHIFT is Present. MCH (RBC) [Entitic mass] 25.3 pg 27.0-32.0 [facility] Nucleated RBC/100 WBC (Bld) [Ratio] 0 % 0-5 [facility] MCHC Auto (RBC) [Mass/Vol]Or dered By: Dr. Velasco on 06-12-2022 MCHC (RBC) [Mass/Vol] 29.4 g/dL 32-36 [facility] No Panel InformationOrdered By: Dr. Velasco on 06-12-2022 Estimated GFR (MDRD) Amer 75 mL/min >60 [facility] Comment on above: GFR Calc Estimated GFR (MDRD) Non-Af Amer 62 mL/min >60 [facility] Comment on above: Non- GFR Calc Platelets bldOrdered By: Dr. Velasco on 06-12-2022 Platelets (Bld) [#/Vol] 219 10*3/uL 150-450 [facility] Serum or plasma albumin barbara urement (mass/volume)Ordered By: Dr. Velasco on 06-12-2022 Albumin [Mass/Vol] 3.2 g/dL 3.2-5.0 [facility] Serum or plasma albumin/glob ulin mass ratioOrdered By: Dr. Velasco on 06-12-2022 Albumin/Globulin [Mass ratio] 0.8 {ratio} 0.9-2.4 [facility] Serum or plasma calcium barbara urement (mass/volume)Ordered By: Dr. Velasco on 06-12-2022 Calcium [Mass/Vol] 9.3 mg/dL 8.5-10.1 [facility] Serum or plasma creatinine m easurement (mass/volume)Ordered By: Dr. Velasco on 06-12-2022 Creatinine [Mass/Vol] 0.95 mg/dL 0.55-1.02 [facility] Comment on above: The validity of the calculated GFR & GFRAA in patients over 70 years has not been determined. Clinical correlation is essential. Serum or plasma urea nitroge n measurement (mass/volume)Ordered By: Dr. Velasco on 06-12-2022 Urea nitrogen [Mass/Vol] 16 mg/dL 7-18 [facility] Thin prep Papanicolaou smear with manual screeningOrdered By: Dr. Velasco on 06-12-2022 Thin prep Papanicolaou smear with manual screening 15 U/L 15-37 [facility] Thin prep Papanicolaou smear with manual screening 7 5-15 [facility] Absolute lymphocyte countOrd ered By: Dr. Velasco on 04-22-2022 Lymphocytes Auto (Unsp spec) [#/Vol] 1.48 10*3/uL 0.83-4.51 [facility] Basophil percentageOrdered B y: Dr. Velasco on 04-22-2022 Basophils/100 WBC (Bld) 0.6 % 0-1 [facility] Bilirubin [Mass/Vol] 0.40 mg/dL 0.20-1.00 [facility] Comment on above: For patients on eltr ombopag therapy, use of Dimension [place] TBIL is not recommended. Chloride [Moles/Vol] 105 mmol/L 98-107 [facility] Eosinophils/100 WBC (Bld) 1.4 % 0-5 [facility] Glucose [Mass/Vol] 96 mg/dL 74-106 [facility] Neutrophils (Bld) [#/Vol] 2.9 10*3/uL 2.0-7.7 [facility] Neutrophils/100 WBC (Bld) 58.5 % 47-70 [facility] Potassium [Moles/Vol] 4.1 mmol/L 3.5-5.1 [facility] Protein [Mass/Vol] 6.6 g/dL 6.4-8.2 [facility] Sodium [Moles/Vol] 140 mmol/L 136-145 [facility] WBC (Bld) [#/Vol] 4.9 10*3/uL 4.4-11.0 [facility] Blood erythrocytes count (nu mber/volume)Ordered By: Dr. Velasco on 04-22-2022 RBC (Bld) [#/Vol] 4.44 10*6/uL 4.2-5.4 [facility] Blood hemoglobin measurement (mass/volume)Ordered By: Dr. Velasco on 04-22-2022 Hemoglobin (Bld) [Mass/Vol] 11.4 g/dL 12.0-15.0 [facility] Blood lymphocytes/100 leukoc ytesOrdered By: Dr. Velasco on 04-22-2022 Lymphocytes/100 WBC (Bld) 30.0 % 19-41 [facility] Blood monocytes/100 leukocyt esOrdered By: Dr. Velasco on 04-22-2022 Monocytes/100 WBC (Bld) 9.1 % 0-10 [facility] Blood platelet mean volumeOr dered By: Dr. Velasco on 04-22-2022 Platelet mean volume (Bld) [Entitic vol] 10.8 fL 6.2-12.0 [facility] Determination of erythrocyte mean corpuscular volume (MCV)Ordered By: Dr. Velasco on 04-22-2022 MCV (RBC) [Entitic vol] 84.5 fL 81-99 [facility] Hematocrit Auto (Bld) [Volum e fraction]Ordered By: Dr. Velasco on 04-22-2022 Hematocrit (Bld) [Volume fraction] 37.5 % 37-47 [facility] Laboratory - Chemistry and C hemistry - challengeOrdered By: Dr. Velasco on 04-22-2022 ALP [Catalytic activity/Vol] 63 U/L 45-117 [facility] ALT [Catalytic activity/Vol] 18 U/L 13-56 [facility] CO2 [Moles/Vol] 28.0 mmol/L 21.0-32.0 [facility] Globulin (S) [Mass/Vol] 3.3 g/dL 2.2-4.2 [facility] Urea nitrogen/Creatinine [Mass ratio] 14.7 mg/mg 10-20 [facility] - Hematology and Cell countsOrdered By: Dr. Velasco on 04-22-2022 Erythrocyte distribution width (RBC) [Entitic vol] 43.3 fL 35.1-43.9 [facility] Erythrocyte distribution width (RBC) [Ratio] 14.1 % 11.6-14.6 [facility] Immature granulocytes/100 WBC (Bld) 0.400 % 0.0-0.9 [facility] Comment on above: IG% - Immature Granu locytes (promyelocytes, myelocytes and metamyelocytes) > 1% indicates that a LEFT SHIFT is Present. MCH (RBC) [Entitic mass] 25.7 pg 27.0-32.0 [facility] Nucleated RBC/100 WBC (Bld) [Ratio] 0 % 0-5 [facility] MCHC Auto (RBC) [Mass/Vol]Or dered By: Dr. Velasco on 04-22-2022 MCHC (RBC) [Mass/Vol] 30.4 g/dL 32-36 [facility] No Panel InformationOrdered By: Dr. Velasco on 04-22-2022 Estimated GFR (MDRD) Amer 69 mL/min >60 [facility] Comment on above: GFR Calc Estimated GFR (MDRD) Non-Af Amer 57 mL/min >60 [facility] Comment on above: Non- GFR Calc Platelets bldOrdered By: Dr. Velasco on 04-22-2022 Platelets (Bld) [#/Vol] 238 10*3/uL 150-450 [facility] Serum or plasma albumin barbara urement (mass/volume)Ordered By: Dr. Velasco on 04-22-2022 Albumin [Mass/Vol] 3.3 g/dL 3.2-5.0 [facility] Serum or plasma albumin/glob ulin mass ratioOrdered By: Dr. Velasco on 04-22-2022 Albumin/Globulin [Mass ratio] 1.0 {ratio} 0.9-2.4 [facility] Serum or plasma calcium barbara urement (mass/volume)Ordered By: Dr. Velasco on 04-22-2022 Calcium [Mass/Vol] 9.1 mg/dL 8.5-10.1 [facility] Serum or plasma creatinine m easurement (mass/volume)Ordered By: Dr. Velasco on 04-22-2022 Creatinine [Mass/Vol] 1.02 mg/dL 0.55-1.02 [facility] Comment on above: The validity of the calculated GFR & GFRAA in patients over 70 years has not been determined. Clinical correlation is essential. Serum or plasma urea nitroge n measurement (mass/volume)Ordered By: Dr. Velasco on 04-22-2022 Urea nitrogen [Mass/Vol] 15 mg/dL 7-18 [facility] Thin prep Papanicolaou smear with manual screeningOrdered By: Dr. Velasco on 04-22-2022 Thin prep Papanicolaou smear with manual screening 15 U/L 15-37 [facility] Thin prep Papanicolaou smear with manual screening 7 5-15 [facility] Absolute lymphocyte countOrd ered By: Dr. Lozano on 02-26-2022 Lymphocytes Auto (Unsp spec) [#/Vol] 1.61 10*3/uL 0.83-4.51 [facility] Basophil percentageOrdered B y: Dr. Lozano on 02-26-2022 Basophil percentage 2.9 mg/dL 2.5-4.9 [facility] Basophils/100 WBC (Bld) 0.9 % 0-1 [facility] Bilirubin [Mass/Vol] 0.30 mg/dL 0.20-1.00 [facility] Comment on above: For patients on eltr ombopag therapy, use of Dimension [place] TBIL is not recommended. Chloride [Moles/Vol] 107 mmol/L 98-107 [facility] Eosinophils/100 WBC (Bld) 0.9 % 0-5 [facility] Glucose [Mass/Vol] 94 mg/dL 74-106 [facility] Neutrophils (Bld) [#/Vol] 2.3 10*3/uL 2.0-7.7 [facility] Neutrophils/100 WBC (Bld) 50.8 % 47-70 [facility] Potassium [Moles/Vol] 3.4 mmol/L 3.5-5.1 [facility] Protein [Mass/Vol] 6.8 g/dL 6.4-8.2 [facility] Sodium [Moles/Vol] 140 mmol/L 136-145 [facility] WBC (Bld) [#/Vol] 4.6 10*3/uL 4.4-11.0 [facility] Blood erythrocytes count (nu mber/volume)Ordered By: Dr. Lozano on 02-26-2022 RBC (Bld) [#/Vol] 4.45 10*6/uL 4.2-5.4 [facility] Blood hemoglobin measurement (mass/volume)Ordered By: Dr. Lozano on 02-26-2022 Hemoglobin (Bld) [Mass/Vol] 11.3 g/dL 12.0-15.0 [facility] Blood lymphocytes/100 leukoc ytesOrdered By: Dr. Lozano on 02-26-2022 Lymphocytes/100 WBC (Bld) 35.2 % 19-41 [facility] Blood monocytes/100 leukocyt esOrdered By: Dr. Lozano on 02-26-2022 Monocytes/100 WBC (Bld) 11.8 % 0-10 [facility] Blood platelet mean volumeOr dered By: Dr. Lozano on 02-26-2022 Platelet mean volume (Bld) [Entitic vol] 10.8 fL 6.2-12.0 [facility] Determination of erythrocyte mean corpuscular volume (MCV)Ordered By: Dr. Lozano on 02-26-2022 MCV (RBC) [Entitic vol] 85.4 fL 81-99 [facility] Hematocrit Auto (Bld) [Volum e fraction]Ordered By: Dr. Lozano on 02-26-2022 Hematocrit (Bld) [Volume fraction] 38.0 % 37-47 [facility] - Chemistry and C hemistry - challengeOrdered By: Dr. Lozano on 02-26-2022 ALP [Catalytic activity/Vol] 55 U/L 45-117 [facility] ALT [Catalytic activity/Vol] 20 U/L 13-56 [facility] CO2 [Moles/Vol] 26.0 mmol/L 21.0-32.0 [facility] Globulin (S) [Mass/Vol] 3.8 g/dL 2.2-4.2 [facility] Magnesium [Mass/Vol] 2.3 mg/dL 1.6-2.6 [facility] Urea nitrogen/Creatinine [Mass ratio] 16.9 mg/mg 10-20 [facility] - Hematology and Cell countsOrdered By: Dr. Lozano on 02-26-2022 Erythrocyte distribution width (RBC) [Entitic vol] 45.0 fL 35.1-43.9 [facility] Erythrocyte distribution width (RBC) [Ratio] 14.5 % 11.6-14.6 [facility] Immature granulocytes/100 WBC (Bld) 0.400 % 0.0-0.9 [facility] Comment on above: IG% - Immature Granu locytes (promyelocytes, myelocytes and metamyelocytes) > 1% indicates that a LEFT SHIFT is Present. MCH (RBC) [Entitic mass] 25.4 pg 27.0-32.0 [facility] Nucleated RBC/100 WBC (Bld) [Ratio] 0 % 0-5 [facility] MCHC Auto (RBC) [Mass/Vol]Or dered By: Dr. Lozano on 02-26-2022 MCHC (RBC) [Mass/Vol] 29.7 g/dL 32-36 [facility] No Panel InformationOrdered By: Dr. Lozano on 02-26-2022 Estimated GFR (MDRD) Amer 75 mL/min >60 [facility] Comment on above: GFR Calc Estimated GFR (MDRD) Non-Af Amer 62 mL/min >60 [facility] Comment on above: Non- GFR Calc Parathyroid Hormone (Intact) 71.9 pg/mL 18.4-80.1 [facility] Vitamin D 25-Hydroxy 15.8 ng/mL [facility] Comment on above: Vitamin D 25(OH) Sta tus Range Deficiency <20 ng/mL (50nmol/L) Insufficiency 20 - 30 ng/mL (50 - 75 nmol/L) Sufficiency 30 - 100 ng/mL (75 - 250 nmol/L) Toxicity >100 ng/mL (>250 nmol/L) Platelets bldOrdered By: Dr. Lozano on 02-26-2022 Platelets (Bld) [#/Vol] 239 10*3/uL 150-450 [facility] Serum or plasma albumin barbara urement (mass/volume)Ordered By: Dr. Lozano on 02-26-2022 Albumin [Mass/Vol] 3.0 g/dL 3.2-5.0 [facility] Serum or plasma albumin/glob ulin mass ratioOrdered By: Dr. Lozano on 02-26-2022 Albumin/Globulin [Mass ratio] 0.8 {ratio} 0.9-2.4 [facility] Serum or plasma calcium barbara urement (mass/volume)Ordered By: Dr. Lozano on 02-26-2022 Calcium [Mass/Vol] 8.8 mg/dL 8.5-10.1 [facility] Serum or plasma creatinine m easurement (mass/volume)Ordered By: Dr. Lozano on 02-26-2022 Creatinine [Mass/Vol] 0.94 mg/dL 0.55-1.02 [facility] Comment on above: The validity of the calculated GFR & GFRAA in patients over 70 years has not been determined. Clinical correlation is essential. Serum or plasma urea nitroge n measurement (mass/volume)Ordered By: Dr. Lozano on 02-26-2022 Urea nitrogen [Mass/Vol] 16 mg/dL 7-18 [facility] Serum or plasma uric acid me asurement (mass/volume)Ordered By: Dr. Lozano on 02-26-2022 Urate [Mass/Vol] 4.8 mg/dL 2.6-6.0 [facility] Comment on above: The drugs N-Acetylcy steine and Metamizole may falsely depress this assay. Thin prep Papanicolaou smear with manual screeningOrdered By: Dr. Lozano on 02-26-2022 Thin prep Papanicolaou smear with manual screening 17 U/L 15-37 [facility] Thin prep Papanicolaou smear with manual screening 7 5-15 [facility] Absolute lymphocyte counton 01-01-2022 Lymphocytes Auto (Unsp spec) [#/Vol] 0.77 10*3/uL 0.83-4.51 [facility] Work Phone: Basophil percentageon 2021 Basophils/100 WBC (Bld) 0.3 % 0-1 [facility] Work Phone: Bilirubin [Mass/Vol] 0.40 mg/dL 0.20-1.00 [facility] Work Phone: Comment on above: For patients on eltr ombopag therapy, use of Dimension [place] TBIL is not recommended. Chloride [Moles/Vol] 105 mmol/L 98-107 [facility]: Eosinophils/100 WBC (Bld) 0.6 % 0-5 [facility] Work Phone: Glucose [Mass/Vol] 101 mg/dL 74-106 [facility] Work Phone: Comment on above: Fasting Glucose resu lt from 100 to 125 mg/dL suggests IMPAIRED HOMEOSTASIS per A.D.A. criteria. Neutrophils (Bld) [#/Vol] 5.4 10*3/uL 2.0-7.7 [facility] Work Phone: Neutrophils/100 WBC (Bld) 80.6 % 47-70 [facility] Work Phone: Potassium [Moles/Vol] 3.8 mmol/L 3.5-5.1 [facility] Work Phone: Protein [Mass/Vol] 7.1 g/dL 6.4-8.2 [facility] Work Phone: Sodium [Moles/Vol] 139 mmol/L 136-145 [facility] Work Phone: WBC (Bld) [#/Vol] 6.7 10*3/uL 4.4-11.0 [facility] Work Phone: Blood erythrocytes count (nu mber/volume)on 01-01-2022 RBC (Bld) [#/Vol] 4.53 10*6/uL 4.2-5.4 [facility] Work Phone: RBC (Bld) [#/Vol] 4.60 10*6/uL 3.77-5.28 [facility] Work Phone: Blood hemoglobin measurement (mass/volume)on 01-01-2022 Hemoglobin (Bld) [Mass/Vol] 11.1 g/dL 12.0-15.0 [facility] Work Phone: Blood lymphocytes/100 leukoc yteson 01-01-2022 Lymphocytes/100 WBC (Bld) 11.5 % 19-41 [facility] Work Phone: Blood monocytes/100 leukocyt eson 01-01-2022 Monocytes/100 WBC (Bld) 6.6 % 0-10 [facility] Work Phone: Blood platelet mean volumeon 01-01-2022 Platelet mean volume (Bld) [Entitic vol] 11.2 fL 6.2-12.0 [facility] Work Phone: Determination of erythrocyte mean corpuscular volume (MCV)on 01-01-2022 MCV (RBC) [Entitic vol] 83.2 fL 81-99 [facility] Work Phone: Erythrocyte [id number] ate dehydrogenase (enzymatic activity/mass)on 01-01-2022 G6PD (RBC) [Catalytic activity/Mass] 327 127-427 [facility] Work Phone: Comment on above: Result Units: [...] weeks following a hemolytic event.Performed at: - [address] [id number] Director: Wilfredo Apodaca PhD, Phone: [phone] at: [facility] [address] [id number] Director: Lynn Terrell MD, Phone: [phone] Hematocrit Auto (Bld) [Volum e fraction]on 01-01-2022 Hematocrit (Bld) [Volume fraction] 37.7 % 37-47 [facility] Work Phone: Laboratory - Chemistry and C hemistry - challengeon 01-01-2022 ALP [Catalytic activity/Vol] 74 U/L 45-117 [facility] Work Phone: ALT [Catalytic activity/Vol] 21 U/L 13-56 [facility] Work Phone: [phone] CO2 [Moles/Vol] 25.0 mmol/L 21.0-32.0 [facility] Work Phone: [phone] Globulin (S) [Mass/Vol] 4.0 g/dL 2.2-4.2 [facility] Work Phone: [phone] Urea nitrogen/Creatinine [Mass ratio] 15.2 mg/mg 10-20 [facility] Work Phone: [phone] Laboratory - Hematology and Cell countson 01-01-2022 Erythrocyte distribution width (RBC) [Entitic vol] 48.2 fL 35.1-43.9 [facility] Work Phone: [phone] Erythrocyte distribution width (RBC) [Ratio] 15.9 % 11.6-14.6 [facility] Work Phone: [phone] Immature granulocytes/100 WBC (Bld) 0.400 % 0.0-0.9 [facility] Work Phone: Comment on above: IG% - Immature Granu locytes (promyelocytes, myelocytes and metamyelocytes) > 1% indicates that a LEFT SHIFT is Present. MCH (RBC) [Entitic mass] 24.5 pg 27.0-32.0 [facility] Work Phone: [phone] Nucleated RBC/100 WBC (Bld) [Ratio] 0 % 0-5 [facility] Work Phone: [phone] MCHC Auto (RBC) [Mass/Vol]on 01-01-2022 MCHC (RBC) [Mass/Vol] 29.4 g/dL 32-36 [facility] Work Phone: [phone] Panel Informationon 01-01 Anti-Nuclear Antibody Screen Negative Negative [facility] Work Phone: Comment on above: Performed at: [place] [id number] Director: Wilfredo Apodaca PhD, Phone: [phone] Estimated GFR (MDRD) Amer 67 mL/min >60 [facility] Work Phone: Comment on above: GFR Calc Estimated GFR (MDRD) Non-Af Amer 55 mL/min >60 [facility] Work Phone: Comment on above: Non- GFR Calc Hepatitis B Surface Antigen Non-Reactive Nonreactive [facility] Work Phone: Hepatitis C Antibody Non-Reactive Nonreactive [facility] Work Phone: Comment on above: Non Reactive: < 0.8 Equivocal: >/= 0.8 to < 1.0 Reactive: >/= 1.0The [facility] recommends that a reactive/equivocal HCV antibody result be followed up by the HCV Nucleic Acid Amplificationtest (702379) Platelets bldon 01-01-2022 Platelets (Bld) [#/Vol] 202 10*3/uL 150-450 [facility] Work Phone: Qualitative QuantiFERON-TB g old in tube teston 01-01-2022 M. tuberculosis tuberculin stim IFN-g Ql (Bld) 0.01 IU/mL . [facility] Work Phone: Serum hepatitis B virus surf damaris antibody IgG detectionon 01-01-2022 HBV surface IgG Ql (S) Non-Reactive [facility] Work Phone: Comment on above: Non Reactive: Incons istent with immunity less than <10 mIU/mL Reactive: Consistent with immunity greater than or equal to 10 mIU/mL Serum or plasma albumin barbara urement (mass/volume)on 01-01-2022 Albumin [Mass/Vol] 3.1 g/dL 3.2-5.0 [facility] Work Phone: Serum or plasma albumin/glob ulin mass ratioon 01-01-2022 Albumin/Globulin [Mass ratio] 0.8 {ratio} 0.9-2.4 [facility] Work Phone: Serum or plasma calcium barbara urement (mass/volume)on 01-01-2022 Calcium [Mass/Vol] 9.1 mg/dL 8.5-10.1 [facility] Work Phone: Serum or plasma creatinine m easurement (mass/volume)on 01-01-2022 Creatinine [Mass/Vol] 1.05 mg/dL 0.55-1.02 [facility] Work Phone: Comment on above: The validity of the calculated GFR & GFRAA in patients over 70 years has not been determined. Clinical correlation is essential. Serum or plasma urea nitroge n measurement (mass/volume)on 01-01-2022 Urea nitrogen [Mass/Vol] 16 mg/dL 7-18 [facility] Work Phone: Thin prep Papanicolaou smear with manual screeningon 01-01-2022 Thin prep Papanicolaou smear with manual screening 17 U/L 15-37 [facility] Work Phone: Thin prep Papanicolaou smear with manual screening 9 5-15 [facility] Work Phone: Thin prep Papanicolaou smear with manual screening Comment . [facility] Work Phone: Comment on above: QuantiFERON-TB Gold [...] smear with manual screening 0 IU/mL . [facility] Work Phone: Thin prep Papanicolaou smear with manual screening 7.96 IU/mL . [facility] Work Phone: Thin prep Papanicolaou smear with manual screening Negative Negative [facility] Work Phone: Comment on above: No response to M [...] Auto (Unsp spec) [#/Vol] 1.05 10*3/uL 0.83-4.51 [facility] Work Phone: Basophil percentageon 2021 Basophils/100 WBC (Bld) 0.6 % 0-1 [facility] Work Phone: Eosinophils/100 WBC (Bld) 1.0 % 0-5 [facility] Work Phone: Neutrophils (Bld) [#/Vol] 3.5 10*3/uL 2.0-7.7 [facility] Work Phone: Neutrophils/100 WBC (Bld) 69.3 % 47-70 [facility] Work Phone: WBC (Bld) [#/Vol] 5.1 10*3/uL 4.4-11.0 [facility] Work Phone: Blood erythrocytes count (nu mber/volume)on 10-19-2021 RBC (Bld) [#/Vol] 4.47 10*6/uL 4.2-5.4 [facility] Work Phone: Blood hemoglobin measurement (mass/volume)on 10-19-2021 Hemoglobin (Bld) [Mass/Vol] 10.9 g/dL 12.0-15.0 [facility] Work Phone: Blood lymphocytes/100 leukoc yteson 10-19-2021 Lymphocytes/100 WBC (Bld) 20.8 % 19-41 [facility] Work Phone: Blood monocytes/100 leukocyt eson 10-19-2021 Monocytes/100 WBC (Bld) 8.1 % 0-10 [facility] Work Phone: Blood platelet mean volumeon 10-19-2021 Platelet mean volume (Bld) [Entitic vol] 11.0 fL 6.2-12.0 [facility] Work Phone: Determination of erythrocyte mean corpuscular volume (MCV)on 10-19-2021 MCV (RBC) [Entitic vol] 84.3 fL 81-99 [facility] Work Phone: Erythrocyte sedimentation ra rita 10-19-2021 ESR (Bld) [Velocity] 34 mm/h 0-30 [facility] Work Phone: Hematocrit Auto (Bld) [Volum e fraction]on 10-19-2021 Hematocrit (Bld) [Volume fraction] 37.7 % 37-47 [facility] Work Phone: Laboratory - Hematology and Cell countson 10-19-2021 Erythrocyte distribution width (RBC) [Entitic vol] 44.4 fL 35.1-43.9 [facility] Work Phone: Erythrocyte distribution width (RBC) [Ratio] 14.6 % 11.6-14.6 [facility] Work Phone: Immature granulocytes/100 WBC (Bld) 0.200 % 0.0-0.9 [facility] Work Phone: Comment on above: IG% - Immature Granu locytes (promyelocytes, myelocytes and metamyelocytes) > 1% indicates that a LEFT SHIFT is Present. MCH (RBC) [Entitic mass] 24.4 pg 27.0-32.0 [facility] Work Phone: Nucleated RBC/100 WBC (Bld) [Ratio] 0 % 0-5 [facility] Work Phone: MCHC Auto (RBC) [Mass/Vol]on 10-19-2021 MCHC (RBC) [Mass/Vol] 28.9 g/dL 32-36 [facility] Work Phone: Platelets bldon 10-19-2021 Platelets (Bld) [#/Vol] 217 10*3/uL 150-450 [facility] Work Phone: Serum cyclic citrullinated p eptide IgG antibody assay (units/volume)on 10-19-2021 Cyclic citrullinated peptide IgG Qn 5 units 0-19 [facility] Work Phone: Comment on above: Negative <20 Weak po sitive 20 - 39 Moderate positive 40 - 59 Strong positive >59Performed at: - [facility] [id number] Director: Lynn Terrell MD, Phone: [phone] Serum or plasma C reactive p rotein measurement (mass/volume)on 10-19-2021 CRP [Mass/Vol] 15.50 mg/L 0.0-3.0 [facility] Work Phone: Comment on above: C-Reactive Protein ( CRP) provides useful information for thediagnosis, therapy and monitoring of inflammatory processesand associated diseases. For the evaluation of Relative Riskfor Cardiovascular Disease, a High Sensitivity CRP (HSCRP)should be ordered. Serum or plasma uric acid me asurement (mass/volume)on 10-19-2021 Urate [Mass/Vol] 5.3 mg/dL 2.6-6.0 [facility] Work Phone: Comment on above: The drugs N-Acetylcy steine and Metamizole may falsely depress this assay. Serum rheumatoid factor dete ctionon 10-19-2021 Rheumatoid factor Ql (S) > 600.0 IU/mL <15 [facility] Work Phone: Bronchoalveolar lavage cultu re with Gram stainon 07-06-2021 Respiratory Culture Presumptive C albicans [facility] Work Phone: Gram stain for investigation of transfusion reactionon 07-06-2021 Microscopic observation Gram stain Nom (Unsp spec) [facility] Work Phone: Gram stain for investigation of transfusion reactionon 07-05-2021 Microscopic observation Gram stain Nom (Unsp spec) [facility] Work Phone: Bronchoalveolar lavage cultu re with Gram stainon 07-04-2021 Respiratory Culture Streptococcus pneumoniae [facility] Work Phone: [phone] Gram stain for investigation of transfusion reactionon 07-04-2021 Microscopic observation Gram stain Nom (Unsp spec) [facility] Work Phone: Absolute lymphocyte counton 05-29-2021 Lymphocytes Auto (Unsp spec) [#/Vol] 1.26 10*3/uL 0.83-4.51 [facility] Work Phone: Basophil percentageon 2021 Basophils/100 WBC (Bld) 0.8 % 0-1 [facility] Work Phone: Bilirubin [Mass/Vol] 0.40 mg/dL 0.20-1.00 [facility] Work Phone: Comment on above: For patients on eltr ombopag therapy, use of Dimension [place] TBIL is not recommended. Chloride [Moles/Vol] 107 mmol/L 98-107 [facility] Work Phone: Eosinophils/100 WBC (Bld) 3.1 % 0-5 [facility] Work Phone: Glucose [Mass/Vol] 97 mg/dL 74-106 [facility] Work Phone: Neutrophils (Bld) [#/Vol] 4.1 10*3/uL 2.0-7.7 [facility] Work Phone: Neutrophils/100 WBC (Bld) 63.5 % 47-70 [facility] Work Phone: Potassium [Moles/Vol] 4.3 mmol/L 3.5-5.1 [facility] Work Phone: Protein [Mass/Vol] 7.2 g/dL 6.4-8.2 [facility] Work Phone: Sodium [Moles/Vol] 138 mmol/L 136-145 [facility] Work Phone: WBC (Bld) [#/Vol] 6.5 10*3/uL 4.4-11.0 [facility] Work Phone: Blood erythrocytes count (nu mber/volume)on 05-29-2021 RBC (Bld) [#/Vol] 4.57 10*6/uL 4.2-5.4 [facility] Work Phone: Blood hemoglobin measurement (mass/volume)on 05-29-2021 Hemoglobin (Bld) [Mass/Vol] 11.9 g/dL 12.0-15.0 [facility] Work Phone: Blood lymphocytes/100 leukoc yteson 05-29-2021 Lymphocytes/100 WBC (Bld) 19.4 % 19-41 [facility] Work Phone: Blood monocytes/100 leukocyt eson 05-29-2021 Monocytes/100 WBC (Bld) 12.9 % 0-10 [facility] Work Phone: Blood platelet mean volumeon 05-29-2021 Platelet mean volume (Bld) [Entitic vol] 11.1 fL 6.2-12.0 [facility] Work Phone: [phone] Determination of erythrocyte mean corpuscular volume (MCV)on 05-29-2021 MCV (RBC) [Entitic vol] 84.7 fL 81-99 [facility] Work Phone: Hematocrit Auto (Bld) [Volum e fraction]on 05-29-2021 Hematocrit (Bld) [Volume fraction] 38.7 % 37-47 [facility] Work Phone: [phone] Laboratory - Chemistry and C hemistry - challengeon 05-29-2021 ALP [Catalytic activity/Vol] 83 U/L 45-117 [facility] Work Phone: ALT [Catalytic activity/Vol] 20 U/L 13-56 [facility] Work Phone: CO2 [Moles/Vol] 27.0 mmol/L 21.0-32.0 [facility] Work Phone: Globulin (S) [Mass/Vol] 4.1 g/dL 2.2-4.2 [facility] Work Phone: Urea nitrogen/Creatinine [Mass ratio] 19.4 mg/mg 10-20 [facility] Work Phone: Laboratory - Hematology and Cell countson 05-29-2021 Erythrocyte distribution width (RBC) [Entitic vol] 44.5 fL 35.1-43.9 [facility] Work Phone: Erythrocyte distribution width (RBC) [Ratio] 14.5 % 11.6-14.6 [facility] Work Phone: Immature granulocytes/100 WBC (Bld) 0.300 % 0.0-0.9 [facility] Work Phone: Comment on above: IG% - Immature Granu locytes (promyelocytes, myelocytes and metamyelocytes) > 1% indicates that a LEFT SHIFT is Present. MCH (RBC) [Entitic mass] 26.0 pg 27.0-32.0 [facility] Work Phone: Nucleated RBC/100 WBC (Bld) [Ratio] 0 % 0-5 [facility] Work Phone: MCHC Auto (RBC) [Mass/Vol]on 05-29-2021 MCHC (RBC) [Mass/Vol] 30.7 g/dL 32-36 [facility] Work Phone: No Panel Informationon 05-29 Estimated GFR (MDRD) Amer 68 mL/min >60 [facility] Work Phone: Comment on above: GFR Calc Estimated GFR (MDRD) Non-Af Amer 56 mL/min >60 [facility] Work Phone: Comment on above: Non- GFR Calc Platelets bldon 05-29-2021 Platelets (Bld) [#/Vol] 268 10*3/uL 150-450 [facility] Work Phone: Serum or plasma albumin barbara urement (mass/volume)on 05-29-2021 Albumin [Mass/Vol] 3.1 g/dL 3.2-5.0 [facility] Work Phone: Serum or plasma albumin/glob ulin mass ratioon 05-29-2021 Albumin/Globulin [Mass ratio] 0.8 {ratio} 0.9-2.4 [facility] Work Phone: Serum or plasma calcium barbara urement (mass/volume)on 05-29-2021 Calcium [Mass/Vol] 9.1 mg/dL 8.5-10.1 [facility] Work Phone: Serum or plasma creatinine m easurement (mass/volume)on 05-29-2021 Creatinine [Mass/Vol] 1.03 mg/dL 0.55-1.02 [facility] Work Phone: Comment on above: The validity of the calculated GFR & GFRAA in patients over 70 years has not been determined. Clinical correlation is essential. Serum or plasma urea nitroge n measurement (mass/volume)on 05-29-2021 Urea nitrogen [Mass/Vol] 20 mg/dL 7-18 [facility] Work Phone: Serum or plasma uric acid me asurement (mass/volume)on 05-29-2021 Urate [Mass/Vol] 5.6 mg/dL 2.6-6.0 [facility] Work Phone: Comment on above: The drugs N-Acetylcy steine and Metamizole may falsely depress this assay. Thin prep Papanicolaou smear with manual screeningon 05-29-2021 Thin prep Papanicolaou smear with manual screening 18 U/L 15-37 [facility] Work Phone: Thin prep Papanicolaou smear with manual screening 4 5-15 [facility] Work Phone: XR Toes - left 3 Viewson IMPRESSION: No Acute Fracture. 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: [employer] Transcribe Date/Time: May 18 2021 4:25P Dictated by : ZA YAN MD This examination was interpreted and the report reviewed and electronically signed by: ZA YAN MD on May 18 2021 4:26PM [facility] DIVISION OF RADIOLOGY * * [...] bony destructive changes. DIVISION OF RADIOLOGY [facility] * * *Final Report* * [...] destructive changes. IMPRESSION IMPRESSION: No Acute Fracture. 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[employer]: [employer] Transcribe Date/Time: May 18 2021 4:25P Dictated by : ZA YAN MD This examination was interpreted and the report reviewed and electronically signed by: ZA YAN MD on May 18 2021 4:26PM EST [facility] Radiology Study observation (narrative) [facility] XR Toes - left 3 ViewsOrdere d By: [facility] Provider on 05-18-2021 [facility] Absolute lymphocyte counton 04-02-2021 Lymphocytes Auto (Unsp spec) [#/Vol] 0.88 10*3/uL 0.83-4.51 [facility] Work Phone: [phone] Basophil percentageon 2020 Bilirubin [Mass/Vol] 0.60 mg/dL 0.20-1.00 [facility] Work Phone: [phone] Comment on above: For patients on eltr ombopag therapy, use of Dimension [place] TBIL is not recommended. Chloride [Moles/Vol] 109 mmol/L 98-107 [facility] Work Phone: [phone] Eosinophils/100 WBC (Bld) 2.7 % 0-5 [facility] Work Phone: [phone] Glucose [Mass/Vol] 109 mg/dL 74-106 [facility] Work Phone: [phone] Comment on above: Fasting Glucose resu lt from 100 to 125 mg/dL suggests IMPAIRED HOMEOSTASIS per A.D.A. criteria.Please note revised GLUCOSE reference range effective 2017. Neutrophils (Bld) [#/Vol] 2.0 10*3/uL 2.0-7.7 [facility] Work Phone: [phone] Potassium [Moles/Vol] 3.6 mmol/L 3.5-5.1 [facility] Work Phone: [phone] Protein [Mass/Vol] 6.9 g/dL 6.4-8.2 [facility] Work Phone: [phone] Sodium [Moles/Vol] 142 mmol/L 136-145 [facility] Work Phone: [phone] WBC (Bld) [#/Vol] 3.3 10*3/uL 4.4-11.0 [facility] Work Phone: [phone] Blood erythrocytes count (nu mber/volume)on 04-02-2021 RBC (Bld) [#/Vol] 4.41 10*6/uL 4.2-5.4 [facility] Work Phone: [phone] Blood hemoglobin measurement (mass/volume)on 04-02-2021 Hemoglobin (Bld) [Mass/Vol] 11.1 g/dL 12.0-15.0 [facility] Work Phone: Blood lymphocytes/100 leukoc yteson 04-02-2021 Lymphocytes/100 WBC (Bld) 26.6 % 19-41 [facility] Work Phone: Blood monocytes/100 leukocyt eson 04-02-2021 Monocytes/100 WBC (Bld) 10.0 % 0-10 [facility] Work Phone: Blood platelet mean volumeon 04-02-2021 Platelet mean volume (Bld) [Entitic vol] 11.5 fL 6.2-12.0 [facility] Work Phone: Determination of erythrocyte mean corpuscular volume (MCV)on 04-02-2021 MCV (RBC) [Entitic vol] 83.4 fL 81-99 [facility] Work Phone: Erythrocyte sedimentation ra rita 04-02-2021 ESR (Bld) [Velocity] 24 mm/h 0-30 [facility] Work Phone: Hematocrit Auto (Bld) [Volum e fraction]on 04-02-2021 Hematocrit (Bld) [Volume fraction] 36.8 % 37-47 [facility] Work Phone: [phone] Laboratory - Chemistry and C hemistry - challengeon 04-02-2021 ALP [Catalytic activity/Vol] 90 U/L 45-117 [facility] Work Phone: ALT [Catalytic activity/Vol] 19 U/L 13-56 [facility] Work Phone: CO2 [Moles/Vol] 28.0 mmol/L 21.0-32.0 [facility] Work Phone: Globulin (S) [Mass/Vol] 4.0 g/dL 2.2-4.2 [facility] Work Phone: Urea nitrogen/Creatinine [Mass ratio] 16.7 mg/mg 10-20 [facility] Work [phone] Laboratory - Hematology and Cell countson 12-20-2021 Basophils/100 WBC (Unsp spec) 1.2 % 0-1 [facility] Work Phone: [phone] Erythrocyte distribution width (RBC) [Entitic vol] 43.0 fL 35.1-43.9 [facility] Work Phone: [phone] Erythrocyte distribution width (RBC) [Ratio] 14.1 % 11.6-14.6 [facility] Work Phone: [phone] Immature granulocytes/100 WBC (Bld) 0.300 % 0.0-0.9 [facility] Work Phone: Comment on above: IG% - Immature Granu locytes (promyelocytes, myelocytes and metamyelocytes) > 1% indicates that a LEFT SHIFT is Present. MCH (RBC) [Entitic mass] 25.2 pg 27.0-32.0 [facility] Work Phone: [phone] Neutrophils/100 WBC (Bld) 59.2 % 47-70 [facility] Work Phone: [phone] Nucleated RBC/100 WBC (Bld) [Ratio] 0 % 0-5 [facility] Work Phone: [phone] MCHC Auto (RBC) [Mass/Vol]on 04-02-2021 MCHC (RBC) [Mass/Vol] 30.2 g/dL 32-36 [facility] Work Phone: No Panel Informationon 04-02 Estimated GFR (MDRD) Amer 74 mL/min >60 [facility] Work Phone: Comment on above: GFR Calc Estimated GFR (MDRD) Non-Af Amer 61 mL/min >60 [facility] Work Phone: Comment on above: Non- GFR Calc Parathyroid Hormone (Intact) 88.5 pg/mL 18.4-80.1 [facility] Work Phone: Platelets bldon 04-02-2021 Platelets (Bld) [#/Vol] 217 10*3/uL 150-450 [facility] Work Phone: Serum or plasma C reactive p rotein measurement (mass/volume)on 04-02-2021 CRP [Mass/Vol] 8.60 mg/L 0.0-3.0 [facility] Work Phone: Comment on above: C-Reactive Protein ( CRP) provides useful information for thediagnosis, therapy and monitoring of inflammatory processesand associated diseases. For the evaluation of Relative Riskfor Cardiovascular Disease, a High Sensitivity CRP (HSCRP)should be ordered. Serum or plasma albumin barbara urement (mass/volume)on 04-02-2021 Albumin [Mass/Vol] 2.9 g/dL 3.2-5.0 [facility] Work Phone: Serum or plasma albumin/glob ulin mass ratioon 04-02-2021 Albumin/Globulin [Mass ratio] 0.7 {ratio} 0.9-2.4 [facility] Work Phone: Serum or plasma calcium barbara urement (mass/volume)on 04-02-2021 Calcium [Mass/Vol] 9.1 mg/dL 8.5-10.1 [facility] Work Phone: Serum or plasma creatinine m easurement (mass/volume)on 04-02-2021 Creatinine [Mass/Vol] 0.96 mg/dL 0.55-1.02 [facility] Work Phone: Comment on above: The validity of the calculated GFR & GFRAA in patients over 70 years has not been determined. Clinical correlation is essential. Serum or plasma urea nitroge n measurement (mass/volume)on 04-02-2021 Urea nitrogen [Mass/Vol] 16 mg/dL 7-18 [facility] Work Phone: Serum or plasma uric acid me asurement (mass/volume)on 04-02-2021 Urate [Mass/Vol] 5.4 mg/dL 2.6-6.0 [facility] Work Phone: Comment on above: The drugs N-Acetylcy steine and Metamizole may falsely depress this assay. Thin prep Papanicolaou smear with manual screeningon 04-02-2021 Thin prep Papanicolaou smear with manual screening 21 U/L 15-37 [facility] Work Phone: Thin prep Papanicolaou smear with manual screening 5 5-15 [facility] Work Phone: XR Chest PA and Lateralon IMPRESSION: No acute radiographic abnormality. 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 Radiology Study observation (narrative) [facility] XR Chest PA and LateralOrder ed By: [facility] Provider on 12-22-2020 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 Left ventricular Ejection fraction 55 % Invalid Interpretation Code [employer] [facility] Work Phone: [phone] Office Visiton 10-16-2016 Dietary management education, guidance, and counseling (procedure) yes Invalid Interpretation Code [employer] [facility] Work Phone: [phone] Documentation of current medications (procedure) Done Invalid Interpretation Code [employer] [facility] Work Phone: [phone] Fall risk assessment No Invalid Interpretation Code [employer] [facility] Work Phone: [phone] Protein mass conc Done [employer] Work Phone: [phone] Replaced Document: Tam Love CG Observationson 10-16-2016 EKG QRS axis 37 deg [employer] [facility] Work Phone: [phone] electrocardiogram interpretation Marked sinus Bradycardia BORDERLINE RHYTHM Invalid Interpretation Code [employer] Work Phone: [phone] GE use only - for [employer] import when terms are not otherwise specified 419 ms Invalid Interpretation Code [employer] [facility] Work Phone: [phone] Interpretation Marked sinus Bradyca rdia BORDERLINE RHYTHM [employer] Work Phone: [phone] P [place] 46 deg [employer] [facility] Work Phone: [phone] P wave axis, electrocardiogram 46 deg Invalid Interpretation Code [employer] [facility] Work Phone: [place] Interval 146 ms [place] [facility] Work Phone: [phone] [place] interval, electrocardiogram 146 ms Invalid Interpretation Code [employer] [facility] Work Phone: [phone] Pulse (Heart Rate) 48 /min Invalid Interpretation Code [place] [facility] Work Phone: [phone] QRS axis, electrocardiogram 37 deg Invalid Interpretation Code [place] [facility] Work Phone: [phone] QRS Duration 90 ms [facility] Work Phone: [phone] QRS duration, electrocardiogram 90 ms Invalid Interpretation Code [employer] Work Phone: [phone] QT Interval new path ms [employer] Work Phone: [phone] QT interval, electrocardiogram new path ms Invalid Interpretation Code [employer] Work Phone: [phone] QTc Olivares 419 ms [employer] Work Phone: [phone] T [place] 57 deg [employer] Work Phone: [phone] T wave axis, electrocardiogram 57 deg Invalid Interpretation Code [employer] Work Phone: [phone] 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 See lab report for original value. [employer] Work Phone: [phone] free Innovation/Lambda ratio 1.23 Invalid Interpretation Code 0.26-1.65 [employer] Work Phone: [phone] kappa free light chains 2.72 mg/dL High Units converted. See lab report for original value. [employer] Work Phone: [phone] KAPPA/LAMBDA % 1.23 0.26-1.65 [employer] Work Phone: [phone] FR LAMBDA LT CH 2.215 mg/dL Units converted. See lab report for original value. [employer] Work Phone: [phone] free Lambda light chain 2.215 mg/dL Invalid Interpretation Code Units converted. See lab report for original value. [employer] Work Phone: [phone] Lab Report: Protein Electrop h, Son 01-24-2016 Globulin . Invalid Interpretation Code [employer] Work Phone: [phone] lab comments Comment Invalid Interpretation Code . [employer] Work Phone: [phone] M-SPIKE . [employer] Work Phone: [phone] NOTE: Comment . [employer] Work Phone: [phone] Protein mass conc Comment . [employer] Work Phone: [phone] serum protein electrophoresis, interpretation/comment Comment Invalid Interpretation Code . [facility] Work Phone: [phone] Albumin 3.3 g/dL Invalid Interpretation Code 2.9-4.4 [place] [facility] Work Phone: [phone] Albumin/Globulin Ratio 1.0 (?) Invalid Interpretation Code 0.7-1.7 [employer] Work Phone: [phone] ALPHA-1 GLOBUL 0.2 g/dL 0.0-0.4 [facility] Work Phone: [phone] ALPHA-2 GLOBUL 0.7 g/dL 0.4-1.0 [employer] Work Phone: [phone] BETA GLOBULIN 1.2 g/dL 0.7-1.3 [employer] Work Phone: [phone] GAMMA GLOBULIN 1.0 g/dL 0.4-1.8 [employer] Work Phone: [phone] Globulin 3.2 g/dL Invalid Interpretation Code 2.2-3.9 [employer] Work Phone: [phone] Globulin 1.0 g/dL Invalid Interpretation Code 0.4-1.8 [employer] Work Phone: [phone] Globulin 1.2 g/dL Invalid Interpretation Code 0.7-1.3 [employer] Work Phone: [phone] Globulin 0.7 g/dL Invalid Interpretation Code 0.4-1.0 [employer] Work Phone: [phone] Globulin 0.2 g/dL Invalid Interpretation Code 0.0-0.4 [employer] Work Phone: [phone] Globulin mass conc (S) 3.2 g/dL 2.2-3.9 [facility] Work Phone: [phone] Protein 6.5 g/dL Invalid Interpretation Code 6.0-8.5 [facility] Work Phone: [phone] Office Visit: 6 mo f/u (DEEPIKA/ neutropenia) PHQ9 Completeon 01-22-2016 Adolescent depression screening assessment Adolescent depression screening assessment Invalid Interpretation Code [facility] Work Phone: [phone] Adult depression screening assessment Adult depression screening assessment Invalid Interpretation Code [employer] Work Phone: [phone] Documentation of current medications (procedure) Done Invalid Interpretation Code [employer] Work Phone: [phone] PHQ-9 quick depression assessment panel [Reported.PHQ] Adult depression screening assessment [employer] Work Phone: [phone] Protein mass conc Done [facility] Work Phone: [phone] Tobacco smoking status NHIS Former smoker [employer] Work Phone: [phone] Tobacco use CP Former smoker Invalid Interpretation Code [employer] Work Phone: [phone] Lab Report: CBC W/Diff, Auto - EPLAB Onlyon 01-18-2016 Basophils/100 leukocytes 1.7 % High 0-1 [employer] Work Phone: [phone] Basophils/100 WBC (Bld) 1.7 % High 0-1 [employer] Work Phone: Eosinophils/100 leukocytes 2.0 % Invalid Interpretation Code 0-5 [employer] Work Phone: Eosinophils/100 WBC (Bld) 2.0 % 0-5 [employer] Work Phone: [phone] Erythrocytes (RBC) 4.39 10*6/uL Invalid Interpretation Code 4.2-5.4 [employer] Work Phone: [phone] Hematocrit (HCT) 39.7 % Invalid Interpretation Code 37-47 [employer] Work Phone: [phone] Hematocrit Volume Fraction (Bld) 39.7 % 37-47 [employer] Work Phone: [phone] Hemoglobin (HGB) 12.7 g/dL Invalid Interpretation Code 12.0-15.0 [employer] Work Phone: Lymphocytes/100 leukocytes 32.1 % Invalid Interpretation Code 19-41 [employer] Work Phone: [phone] Lymphocytes/100 WBC (Bld) 32.1 % 19-41 [employer] Work Phone: MCH 29.0 pg Invalid Interpretation Code 27.0-32.0 [employer] Work Phone: MCH Entitic mass (RBC) 29.0 pg 27.0-32.0 [facility] Work Phone: MCHC 32.0 g/dL Invalid Interpretation Code 32-36 [facility] Work Phone: MCHC mass conc (RBC) 32.0 g/dL 32-[address] [facility] Work Phone: MCV 90.4 fL Invalid Interpretation Code 81-99 [facility] Work Phone: MCV Entitic volume (RBC) 90.4 fL 81-99 [facility] Work Phone: Monocytes/100 leukocytes 10.2 % High 0-10 [facility] Work Phone: Monocytes/100 WBC (Bld) 10.2 % High 0-10 [facility] Work Phone: Neutrophils/100 leukocytes 54.0 % Invalid Interpretation Code 47-70 [facility] Work Phone: Neutrophils/100 WBC (Bld) 54.0 % 47-70 [facility] Work Phone: Platelets 150 10*3/mm3 Invalid Interpretation Code 150-450 [facility] Work Phone: Platelets #/vol (Bld) 150 10*3/mm3 150-450 [facility] Work Phone: RBC #/vol (Bld) 4.39 10*6/uL 4.2-5.4 [facility] Work Phone: WBC #/vol (Bld) 3.4 10*3/uL Low 4.4-11.0 [facility] Work Phone: WBC (Leukocytes) 3.4 10*3/uL Low 4.4-11.0 [facility] Work Phone: Erythrocyte distribution width Ratio (RBC) 12.3 % 11.6-14.6 [facility] Work Phone: Lymphocytes 1.08 X10 3/UL Invalid Interpretation Code 0.83-4.51 [facility] Work Phone: Lymphocytes #/vol (Bld) 1.08 X10 3/UL 0.83-4.51 [facility] Work Phone: [phone] neutrophil count, blood 1.8 X10 3/UL Low 2.0-7.7 [facility] Work Phone: [phone] Neutrophils #/vol (Bld) 1.8 X10 3/UL Low 2.0-7.7 [facility] Work Phone: [phone] Platelet mean volume Entitic volume (Bld) 7.9 fL 6.2-12.0 [facility] Work Phone: [phone] PMV by Daniel 7.9 fL Invalid Interpretation Code 6.2-12.0 [facility] Work Phone: [phone] RDW-CA 12.3 % Invalid Interpretation Code 11.6-14.6 [facility] Work Phone: [phone] Lab Report: [facility] 01-18-2016 Alanine aminotransferase (ALT) 26 U/L Invalid Interpretation Code 12-78 [facility] Work Phone: [phone] Albumin 3.2 g/dL Low 3.4-5.0 [facility] Work Phone: [phone] Albumin/Globulin Ratio 0.9 {ratio} Invalid Interpretation Code 0.9-2.4 [facility] Work Phone: [phone] Alkaline phosphatase (ALP) 81 U/L Invalid Interpretation Code 50-136 [facility] Work Phone: [phone] ALP enzyme act/vol (Bld) 81 U/L 50-136 [facility] Work Phone: [phone] Anion gap 5 mmol/L Invalid Interpretation Code 5-15 [facility] Work Phone: [phone] Anion gap molar conc 5 mmol/L 5-[address] [facility] Work Phone: [phone] Aspartate aminotransferase (AST) 22 U/L Invalid Interpretation Code 15-37 [facility] Work Phone: [phone] Bilirubin (total) 0.50 mg/dL Invalid Interpretation Code 0.20-1.00 [facility] Work Phone: [phone] BUN/Creatinine Ratio 10.9 RATIO Invalid Interpretation Code 10-20 [employer] Work Phone: [phone] Calcium 8.5 mg/dL Invalid Interpretation Code 8.5-10.1 [employer] Work Phone: [phone] Chloride 105 mmol/L Invalid Interpretation Code 98-107 [employer] Work Phone: [phone] CO2 30.0 mmol/L Invalid Interpretation Code 21.0-32.0 [employer] Work Phone: [phone] CO2 ppres (BldV) 30.0 mmol/L 21.0-32.0 [employer] Work Phone: [phone] Creatinine 1.01 mg/dL Invalid Interpretation Code 0.55-1.20 [employer] Work Phone: [phone] eGFR (non-black) 71 mL/min/{1.73_m2} Invalid Interpretation Code >60 [employer] Work Phone: [phone] eGFR (non-black) 59 mL/min/{1.73_m2} Low >60 [employer] Work Phone: [phone] EST GFR - AA 71 mL/min >60 [employer] Work Phone: [phone] Globulin 3.7 g/dL High 2.3-3.5 [employer] Work Phone: [phone] Globulin mass conc (S) 3.7 g/dL High 2.3-3.5 [facility] [employer] Work Phone: [phone] Glucose 109 mg/dL Invalid Interpretation Code 70-110 [facility] Work Phone: [phone] Glucose mass conc 109 mg/dL 70-110 [employer] Work Phone: [phone] Potassium 4.1 mmol/L Invalid Interpretation Code 3.5-5.1 [employer] Work Phone: [phone] Protein 6.9 g/dL Invalid Interpretation Code 6.4-8.2 [employer] Work Phone: [phone] Sodium 140 mmol/L Invalid Interpretation Code 136-145 [employer] Work Phone: [phone] Urea nitrogen 11 mg/dL Invalid Interpretation Code 7-18 [employer] Work Phone: [phone] Lab Report: Ferritinon 01-17 Ferritin 14 ng/mL Invalid Interpretation Code 8-252 [employer] Work Phone: [phone] Lab Report: Ironon 6 Iron 77 ug/dL Invalid Interpretation Code 50-170 [employer] Work Phone: [phone] Lab Report: Iron Binding Cap acity,Totalon 01-18-2016 iron binding capacity, total 439 ug/dL Invalid Interpretation Code 250-450 [employer] Work Phone: [phone] Lab Report: LDHon 01-18-2016 lactate dehydrogenase - serum 252 U/L High 84-246 [employer] Work Phone: [phone] LDH 252 U/L High 84-246 [employer] Work Phone: [phone] Lab Report: Uric Acidon Urate 5.4 mg/dL Invalid Interpretation Code 2.6-6.0 [employer] Work Phone: Office Visiton 07-25-2015 Protein mass conc yes [employer] Work Phone: Smoking cessation education (procedure) yes Invalid Interpretation Code [employer] Work Phone: [phone] Lab Report: Vitamin B12on Cobalamin (Vitamin B12) mass conc 286 pg/mL 211-911 [employer] Work Phone: [phone] vitamin b12, serum 286 pg/mL Invalid Interpretation Code 911 [employer] Work Phone: [phone] Lab Report: Folates, (Folic Acid)on 06-27-2015 Folate 6.40 ng/mL Invalid Interpretation Code 3.1-17.5 [employer] Work Phone: Lab Report: CBC W/Diff, Auto matedon 01-03-2015 Erythrocyte distribution width Ratio (RBC) 41.3 fL 35.1-43.9 [employer] Work Phone: Immature granulocytes #/vol (Bld) 0.000 % 0.0-0.9 [employer] Work Phone: [phone] immature granulocytes, percentage of total cells, blood 0.000 % Invalid Interpretation Code 0.0-0.9 [facility] [employer] Work Phone: [phone] red blood cell distribution width, size density 41.3 fL Invalid Interpretation Code 35.1-43.9 [facility] [employer] Work Phone: [phone] Lab Report: CBC W/Diff, Auto - EPLAB Onlyon 11-15-2014 Absolute Neut 1.9 X10 3/UL Low 2.0-7.7 [employer] Work Phone: [phone] Absolute Neutrophil count 1.9 X10 3/UL Low 2.0-7.7 [facility] [employer] Work Phone: [phone] Lab Report: LDHon 11-15-2014 Lactate dehydrogenase (LDH) 205 U/L Invalid Interpretation Code 84-246 [facility] Work Phone: [phone] Lab Report: Haptoglobinon Haptoglobin 108 mg/dL Invalid Interpretation Code 34-200 [employer] [facility] [employer] Work Phone: [phone] Lab Report: [employer]ambda Lt Chn Ser. Mon.on 05-15-2014 GE use only - for [employer] import when terms are not otherwise specified . Invalid Interpretation Code [facility] Work Phone: [phone] K/L GRAPH . [facility] [employer] Work Phone: [phone] Replaced Document: (P) Eryth ropoietinon 05-14-2014 ERYTHROP [id number] 18.2 m[iU]/mL 2.6-18.5 [facility] Work Phone: [phone] erythropoietin, serum 18.2 m[iU]/mL Invalid Interpretation Code 2.6-18.5 [facility] [employer] Work Phone: [phone] Replaced Document: (P) EMILY + Protein Elect, Serumon 05-14-2014 IgG 990 mg/dL Invalid Interpretation Code 700-1600 [facility] [employer] Work Phone: [phone] Lab Report: Bilirubin, Direc ton 05-10-2014 Bilirubin (direct) 0.09 mg/dL Invalid Interpretation Code 0.00-0.30 [employer] [facility] [employer] Work Phone: Lab Report: Retic Panelon Reticulocytes/100 erythrocytes 1.47 % Invalid Interpretation Code 0.5-1.5 [facility] [employer] Work Phone: Reticulocytes/100 RBC (Bld) 1.47 % 0.5-1.5 [facility] Work Phone: Lab Report: Thyroid Stim Hor chauncey (TSH)on 05-10-2014 Thyroid stimulating hormone (TSH) 2.52 u[iU]/mL Invalid Interpretation Code 0.358-3.74 [facility] Work Phone: Office Visit: 6 mo f/u (DEEPIKA/ neutropenia) PHQ9 Completeon 01-13-2014 Breast Mammogram screening Normal Bilateral Invalid Interpretation Code [facility] Work Phone: Office Visit: 6 mo f/u (DEEPIKA/ neutropenia) PHQ9 Completeon 01-12-2013 Colonoscopy (procedure) Colonoscopy (procedure) Invalid Interpretation Code [facility] Work Phone: [phone] Protein mass conc Colonoscopy (procedure) [facility] Work Phone: Vital Signs Date Time Vital Sign Value Performing Clinician Facility 01-04-2025 09:27-0400 Body height 172.[address] Eric Lozano MD Work Phone: [facility] 01-04-2025 09:27-0400 Body mass index (BMI) [Ratio] 31.6 kg/m2 Dr. Eric Lozano MD Work Phone: [facility] 01-04-2025 09:27-0400 Body weight 94.[address] Eric Lozano MD Work Phone: [facility] 01-04-2025 09:27-0400 Diastolic blood pressure 83 mm[Hg] Dr. Eric Lozano MD Work Phone: [facility] 01-04-2025 09:27-0400 Heart rate 72 /min Dr. Eric Lozano MD Work Phone: [facility] 01-04-2025 09:27-0400 Respiratory rate 18 /min Dr. Eric Lozano MD Work Phone: [phone] [place] [address] 01-04-2025 09:27-0400 SaO2% (BldA) [Mass fraction] 98 % Dr. Eric Lozano MD Work Phone: [phone] [place] [address] 01-04-2025 09:27-0400 Systolic blood pressure 125 mm[Hg] Dr. Eric Lozano MD Work Phone: [phone])970-573204 [place] [address] 06-28-2024 11:05-0400 Heart rate 58 /min Dr. Eric Lozano MD Work Phone: [phone] [place] [address] 06-28-2024 11:05-0400 Respiratory rate 19 /min Dr. Eric Lozano MD Work Phone: [phone] [place] [address] 06-28-2024 11:05-0400 SaO2% (BldA) [Mass fraction] 94 % Dr. Eric Lozano MD Work Phone: [phone])232-094604 [place] [address] 06-28-2024 09:06-0400 Body height 172.[address] Eric Lozano MD Work Phone: [phone] [place] [address] 06-28-2024 09:06-0400 Body mass index (BMI) [Ratio] 31.9 kg/m2 Dr. Eric Lozano MD Work Phone: [phone])760-025304 [place] [address] 06-28-2024 09:06-0400 Body temperature 97.2 [degF] Dr. Eric Lozano MD Work Phone: [phone])[phone] [place] [address] 06-28-2024 09:06-0400 Body weight 95.[address] Eric Lozano MD Work Phone: [phone] [place] [address] 06-28-2024 09:06-0400 Diastolic blood pressure 65 mm[Hg] Dr. Eric Lozano MD Work Phone: 0([phone])445-687604 [place] [address] 06-28-2024 09:06-0400 Systolic blood pressure 195 mm[Hg] Dr. Eric Lozano MD Work Phone: [phone])259-545304 [place] [address] 06-06-2024 09:08-0500 Body temperature 98.01 [degF] Lynn Moomaw [employer] Work Phone: [facility] 06-06-2024 09:08-0500 Body weight 95.8 kg Lynn Moomaw [employer] Work Phone: [facility] 06-06-2024 09:08-0500 Diastolic blood pressure 78 mm[Hg] Lynn Moomaw [employer] Work Phone: [facility] 06-06-2024 09:08-0500 Heart rate 74 /min Lynn Moomaw [employer] Work Phone: [facility] 06-06-2024 09:08-0500 Respiratory rate 20 /min Lynn Moomaw [employer] Work Phone: [facility] 06-06-2024 09:08-0500 SaO2% (BldA) [Mass fraction] 98 % Lynn Moomaw [employer] Work Phone: [facility] 06-06-2024 09:08-0500 Systolic blood pressure 154 mm[Hg] Lynn Moomaw [employer] Work Phone: [facility] 05-26-2024 10:06-0500 Body temperature 99.7 [degF] Mira Clutter PA-C Work Phone: [facility] 05-26-2024 10:06-0500 Body weight 95.4 kg Mira Clutter PA-C Work Phone: [facility] 05-26-2024 10:06-0500 Diastolic blood pressure 68 mm[Hg] Mira Clutter PA-C Work Phone: [facility] 05-26-2024 10:06-0500 Heart rate 79 /min Mira Clutter PA-C Work Phone: [facility] 05-26-2024 10:06-0500 Respiratory rate 20 /min Mira Clutter PA-C Work Phone: [facility] 05-26-2024 10:06-0500 SaO2% (BldA) [Mass fraction] 98 % Mira Clutter PA-C Work Phone: [facility] 05-26-2024 10:06-0500 Systolic blood pressure 140 mm[Hg] Mira Valencia PA-C Work Phone: [facility] 04-01-2024 15:06-0500 Body temperature 98.6 [degF] Dr. Eric Lozano MD Work Phone: [facility] 04-01-2024 15:06-0500 Diastolic blood pressure 55 mm[Hg] Dr. Eric Lozano MD Work Phone: [facility] 04-01-2024 15:06-0500 Heart rate 73 /min Dr. Eric Lozano MD Work Phone: [facility] 04-01-2024 15:06-0500 Respiratory rate 17 /min Dr. Eric Lozano MD Work Phone: [facility] 04-01-2024 15:06-0500 SaO2% (BldA) [Mass fraction] 98 % Dr. Eric Lozano MD Work Phone: [facility] 04-01-2024 15:06-0500 Systolic blood pressure 140 mm[Hg] Dr. Eric Lozano MD Work Phone: [facility] 03-31-2024 11:17-0500 Body mass index (BMI) [Ratio] 30.4 kg/m2 Dr. Eric Lozano MD Work Phone: [facility] 03-31-2024 11:17-0500 Body weight [address] Eric Lozano MD Work Phone: [facility] 10-13-2023 09:21-0400 Body temperature 98.49 [degF] Katharine Gee [employer] Work Phone: [facility] 10-13-2023 09:21-0400 Body weight 89.2 kg Katharine Gee [employer] Work Phone: [facility] 10-13-2023 09:21-0400 Diastolic blood pressure 80 mm[Hg] Katharine Gee [employer] Work Phone: [facility] 10-13-2023 09:21-0400 Heart rate 96 /min Katharine Gee [employer] Work Phone: [facility] 10-13-2023 09:21-0400 Respiratory rate 20 /min Katharine Gee [employer] Work Phone: [facility] 10-13-2023 09:21-0400 SaO2% (BldA) [Mass fraction] 99 % Katharine Gee [employer] MARKETING Work Phone: [facility] 10-13-2023 09:21-0400 Systolic blood pressure 128 mm[Hg] Aktharine Gee [employer]YLAND FARMER.VP OF DIGITAL MARKETING Work Phone: [facility] 08-12-2023 10:29-0400 Body height 172.[address] Eric Lozano Work Phone: [facility] 08-12-2023 10:29-0400 Diastolic blood pressure 67 mm[Hg] Dr. Eric Lozano Work Phone: [facility] 08-12-2023 10:29-0400 Heart rate 58 /min Dr. Eric Lozano Work Phone: [facility] 08-12-2023 10:29-0400 SaO2% (BldA) [Mass fraction] 99 % Dr. Eric Lozano Work Phone: [facility] 08-12-2023 10:29-0400 Systolic blood pressure 109 mm[Hg] Dr. Eric Lozano Work Phone: [facility] 07-31-2023 14:42-0400 Body temperature 98 [degF] Dr. Eric Lozano Work Phone: [facility] 07-31-2023 14:42-0400 Diastolic blood pressure 62 mm[Hg] Dr. Eric Lozano Work Phone: [facility] 07-31-2023 14:42-0400 Heart rate 84 /min Dr. Eric Lozano Work Phone: [facility] 07-31-2023 14:42-0400 Respiratory rate 12 /min Dr. Eric Lozano Work Phone: [facility] 07-31-2023 14:42-0400 SaO2% (BldA) [Mass fraction] 98 % Dr. Eric Lozano Work Phone: [facility] 07-31-2023 14:42-0400 Systolic blood pressure 150 mm[Hg] Dr. Eric Lozano Work Phone: [facility] 07-31-2023 05:21-0400 Body mass index (BMI) [Ratio] 32.1 kg/m2 Dr. Eric Lozano Work Phone: [facility] 07-31-2023 05:21-0400 Body weight 95.[address] Eric Lozano Work Phone: [facility] 07-30-2023 16:00-0400 Inhaled oxygen flow rate 0 L/min Dr. Eric Lozano Work Phone: [facility] 07-29-2023 14:37-0400 Body height 172.[address] Eric Lozano Work Phone: [facility] 07-28-2023 15:00-0400 Body temperature 97.3 [degF] [facility] 07-28-2023 15:00-0400 Diastolic blood pressure 78 mm[Hg] [facility] 07-28-2023 15:00-0400 Heart rate 76 /min [facility] [place] 07-28-2023 15:00-0400 Respiratory rate 16 /min [facility] 07-28-2023 15:00-0400 SaO2% (BldA) [Mass fraction] 96 % [facility] 07-28-2023 15:00-0400 Systolic blood pressure 116 mm[Hg] [facility] 07-28-2023 11:37-0400 Body height 172.72 cm [facility] 07-28-2023 11:37-0400 Body mass index (BMI) [Ratio] 34.3 kg/m2 [facility] 07-28-2023 11:37-0400 Body weight 102.51 kg [facility] [place] 05-31-2023 17:47-0500 Body temperature 98 [degF] [facility] 05-31-2023 17:47-0500 Diastolic blood pressure 59 mm[Hg] [facility] 05-31-2023 17:47-0500 Heart rate 60 /min [facility] [place] 05-31-2023 17:47-0500 Respiratory rate 16 /min [facility] 05-31-2023 17:47-0500 SaO2% (BldA) [Mass fraction] 95 % [facility] 05-31-2023 17:47-0500 Systolic blood pressure 141 mm[Hg] [facility] 05-31-2023 14:54-0500 Body height 172.72 cm [facility] 05-31-2023 14:54-0500 Body mass index (BMI) [Ratio] 35.9 kg/m2 [facility] 05-31-2023 14:54-0500 Body weight 107.3 kg [facility] 01-29-2023 12:21-0400 Body temperature 98.2 [degF] Ronaldo Karan [employer]LAND FARMER.VP OF DIGITAL MARKETING Work Phone: [facility] 01-29-2023 12:21-0400 Body weight 103.15 kg Ronaldo Karan [employer]LAND F[employer]ER.VP OF D[employer]ITAL MARKETING Work Phone: [facility] 01-29-2023 12:21-0400 Diastolic blood pressure 76 mm[Hg] Ronaldo Karan [employer]YLAND FARMER.VP OF DIGITAL MARKETING Work Phone: [facility] 01-29-2023 12:21-0400 Heart rate 66 /min Ronaldo Karan [employer]LAND FARMER.VP OF DIGITAL MARKETING Work Phone: [facility] 01-29-2023 12:21-0400 Respiratory rate 16 /min Ronaldo Karan [employer]LAND FARMER.VP OF D[employer]ITAL MARKETING Work Phone: [facility] 01-29-2023 12:21-0400 SaO2% (BldA) [Mass fraction] 96 % Ronaldo Karan [employer]LAND F[employer]ER.VP OF DIGITAL MARKETING Work Phone: [facility] 01-29-2023 12:21-0400 Systolic blood pressure 122 mm[Hg] Ronaldo Karan [employer]YLAND FARMER.VP OF D[employer]ITAL MARKETING Work Phone: [facility] 12-23-2022 10:38-0400 Body temperature 97.2 [degF] Ronaldo Russo [employer]LAND FARMER.VP OF DIGITAL MARKETING Work Phone: [facility] 12-23-2022 10:38-0400 Body weight 102.6 kg Ronaldo Russo [employer]YLAND FARMER.VP OF DIGITAL MARKETING Work Phone: [facility] 12-23-2022 10:38-0400 Diastolic blood pressure 68 mm[Hg] Ronaldo Russo [employer]YLAND FARMER.VP OF DIGITAL MARKETING Work Phone: [facility] 12-23-2022 10:38-0400 Heart rate 85 /min Ronaldo Russo [employer]YLAND FARMER.VP OF DIGITAL MARKETING Work Phone: [facility] 12-23-2022 10:38-0400 Respiratory rate 21 /min Ronaldo Russo [employer]YLAND FARMER.VP OF D[employer]ITAL MARKETING Work Phone: [facility] 12-23-2022 10:38-0400 SaO2% (BldA) [Mass fraction] 97 % Ronaldo Russo [employer]LAND FARMER.VP OF DIGITAL MARKETING Work Phone: [facility] 12-23-2022 10:38-0400 Systolic blood pressure 150 mm[Hg] Ronaldo Russo [employer]YLAND FARMER.VP OF DIGITAL MARKETING Work Phone: [facility] 11-08-2022 08:38-0400 Body height 175.[address] Eric Lozano Work Phone: [facility] 11-08-2022 08:38-0400 Body mass index (BMI) [Ratio] 33.3 kg/m2 Dr. Eric Lozano Work Phone: [facility] 11-08-2022 08:38-0400 Body weight 102.[address] Eric Lozano Work Phone: [facility] 11-08-2022 08:38-0400 Diastolic blood pressure 73 mm[Hg] Dr. Eric Lozano Work Phone: [facility] 11-08-2022 08:38-0400 Heart rate 56 /min Dr. Eric Lozano Work Phone: [facility] 11-08-2022 08:38-0400 Respiratory rate 16 /min Dr. Eric Lozano Work Phone: [facility] 11-08-2022 08:38-0400 SaO2% (BldA) [Mass fraction] 98 % Dr. Eric Lozano Work Phone: [facility] 11-08-2022 08:38-0400 Systolic blood pressure 152 mm[Hg] Dr. Eric Lozano Work Phone: [facility] 09-26-2022 08:50-0400 Body temperature 99.39 [degF] Faisal Mancini [employer]LAND FARMER.VP OF DIGITAL MARKETING Work Phone: [facility] 09-26-2022 08:50-0400 Body weight 102.97 kg Faisal Mancini [employer]LAND FARMER.VP OF DIGITAL MARKETING Work Phone: [facility] 09-26-2022 08:50-0400 Diastolic blood pressure 88 mm[Hg] Faisal Mancini [employer]YLAND FARMER.VP OF DIGITAL MARKETING Work Phone: [facility] 09-26-2022 08:50-0400 Heart rate 76 /min Faisal Mancini [employer]YLAND FARMER.VP OF D[employer]ITAL MARKETING Work Phone: [facility] 09-26-2022 08:50-0400 Respiratory rate 18 /min Faisal Mancini [employer]LAND FARMER.VP OF D[employer]ITAL MARKETING Work Phone: [facility] 09-26-2022 08:50-0400 SaO2% (BldA) [Mass fraction] 96 % Faisal Mancini [employer]LAND FARMER.VP OF DIGITAL MARKETING Work Phone: [facility] 09-26-2022 08:50-0400 Systolic blood pressure 134 mm[Hg] Faisal Mancini [employer]LAND FARMER.VP OF DIGITAL MARKETING Work Phone: [facility] 08-15-2022 18:20-0400 Body temperature 98.1 [degF] Ronaldo Russo [employer]LAND FARMER.VP OF D[employer]ITAL MARKETING Work Phone: [facility] 08-15-2022 18:20-0400 Body weight 108.14 kg Ronaldo Karan [employer]LAND FARMER.VP OF D[employer]ITAL MARKETING Work Phone: [facility] 08-15-2022 18:20-0400 Diastolic blood pressure 74 mm[Hg] Ronaldo Karan [employer]YLAND FARMER.VP OF D[employer]ITAL MARKETING Work Phone: [facility] 08-15-2022 18:20-0400 Heart rate 63 /min Ronaldo Karan [employer]YLAND FARMER.VP OF D[employer]ITAL MARKETING Work Phone: [facility] 08-15-2022 18:20-0400 Respiratory rate 16 /min Ronaldo Karan [employer]LAND FARMER.VP OF [employer]ITAL MARKETING Work Phone: [facility] 08-15-2022 18:20-0400 SaO2% (BldA) [Mass fraction] 97 % Ronaldo Karan [employer]LAND FARMER.VP OF D[employer]ITAL MARKETING Work Phone: [facility] 08-15-2022 18:20-0400 Systolic blood pressure 130 mm[Hg] Ronaldo Karan [employer]LAND FARMER.VP OF [employer]ITAL MARKETING Work Phone: [facility] 04-13-2022 08:32-0500 Body temperature 98.49 [degF] Ronaldo Karan [employer]YLAND FARMER.VP OF D[employer]ITAL MARKETING Work Phone: [facility] 04-13-2022 08:32-0500 Body weight 107.05 kg Ronaldo Karan [employer]LAND FARMER.VP OF [employer]ITAL MARKETING Work Phone: [facility] 04-13-2022 08:32-0500 Diastolic blood pressure 68 mm[Hg] Ronaldo Akran [employer]YLAND FARMER.VP OF D[employer]ITAL MARKETING Work Phone: [facility] 04-13-2022 08:32-0500 Heart rate 88 /min Ronaldo Karan [employer]YLAND FARMER.VP OF D[employer]ITAL MARKETING Work Phone: [facility] 04-13-2022 08:32-0500 Respiratory rate 18 /min Ronaldo Karan [employer]YLAND FARMER.VP OF D[employer]ITAL MARKETING Work Phone: [facility] 04-13-2022 08:32-0500 SaO2% (BldA) [Mass fraction] 99 % Ronaldo Karan [employer]LAND FARMER.VP OF DIGITAL MARKETING Work Phone: [facility] 04-13-2022 08:32-0500 Systolic blood pressure 122 mm[Hg] Ronaldo Karan [employer]LAND FARMER.VP OF D[employer]ITAL MARKETING Work Phone: [facility] 03-14-2022 09:52-0500 Body temperature 100 [degF] Anny Roach APRN.VP OF DIGITAL MARKETING Work Phone: [facility] 03-14-2022 09:52-0500 Body weight 106.69 kg Anny Roach APRN.VP OF DIGITAL MARKETING Work Phone: [facility] 03-14-2022 09:52-0500 Diastolic blood pressure 86 mm[Hg] Anny Roach APRN.VP OF DIGITAL MARKETING Work Phone: [facility] 03-14-2022 09:52-0500 Heart rate 74 /min Anny Roach APRN.VP OF DIGITAL MARKETING Work Phone: [facility] 03-14-2022 09:52-0500 Respiratory rate 18 /min Anny Roach APRN.VP OF DIGITAL MARKETING Work Phone: [facility] 03-14-2022 09:52-0500 SaO2% (BldA) [Mass fraction] 97 % Anny Roach APRN.VP OF DIGITAL MARKETING Work Phone: [facility] 03-14-2022 09:52-0500 Systolic blood pressure 142 mm[Hg] Anny Roach APRN.VP OF DIGITAL MARKETING Work Phone: [facility] 11-08-2021 09:10-0400 Body height 175.[address] Eric Lozano Work Phone: [facility] Work Phone: 11-08-2021 09:10-0400 Body mass index (BMI) [Ratio] 34 kg/m2 Dr. Eric Lozano Work Phone: [facility] Work Phone: 11-08-2021 09:10-0400 Body weight 104.[address] Eric Lozano Work Phone: [facility] Work Phone: 11-08-2021 09:10-0400 Heart rate 56 /min Dr. Eric Lozano Work Phone: [facility] Work Phone: 11-08-2021 09:10-0400 Respiratory rate 16 /min Dr. Eric Lozano Work Phone: [facility] Work Phone: 11-08-2021 09:10-0400 SaO2% (BldA) [Mass fraction] 98 % Dr. Eric Lozano Work Phone: [facility] Work Phone: 09-14-2021 10:05-0400 Body temperature 99 [degF] Anny Roach APRN.VP OF DIGITAL MARKETING Work Phone: [facility] 09-14-2021 10:05-0400 Body weight 107.78 kg Anny Roach APRN.VP OF DIGITAL MARKETING Work Phone: [facility] 09-14-2021 10:05-0400 Diastolic blood pressure 94 mm[Hg] Anny Roach APRN.VP OF DIGITAL MARKETING Work Phone: [facility] 09-14-2021 10:05-0400 Heart rate 85 /min Anny Roach APRN.VP OF D[employer]ITAL MARKETING Work Phone: [facility] 09-14-2021 10:05-0400 Respiratory rate 22 /min Anny Roach APRN.VP OF D[employer]ITAL MARKETING Work Phone: [facility] 09-14-2021 10:05-0400 SaO2% (BldA) [Mass fraction] 97 % Anny Roach APRN.VP OF DIGITAL MARKETING Work Phone: [facility] 09-14-2021 10:05-0400 Systolic blood pressure 168 mm[Hg] Anny Roach APRN.VP OF DIGITAL MARKETING Work Phone: [facility] 09-07-2021 10:22-0400 Body temperature 98.29 [degF] Anny Roach APRN.VP OF D[employer]ITAL MARKETING Work Phone: [facility] 09-07-2021 10:22-0400 Body weight 110.68 kg Anny Raoch APRN.VP OF DIGITAL MARKETING Work Phone: [facility] 09-07-2021 10:22-0400 Diastolic blood pressure 82 mm[Hg] Anny Roach APRN.VP OF DIGITAL MARKETING Work Phone: [facility] 09-07-2021 10:22-0400 Heart rate 82 /min Anny Roach APRN.VP OF D[employer]ITAL MARKETING Work Phone: [facility] 09-07-2021 10:22-0400 Respiratory rate 24 /min Anny Roach APRN.VP OF D[employer]ITAL MARKETING Work Phone: [facility] 09-07-2021 10:22-0400 SaO2% (BldA) [Mass fraction] 93 % Anny Roach APRN.VP OF DIGITAL MARKETING Work Phone: [facility] 09-07-2021 10:22-0400 Systolic blood pressure 152 mm[Hg] Anny Roach APRN.VP OF DIGITAL MARKETING Work Phone: [facility] 10-16-2016 15:12-0400 Heart rate 48 /min [facility] Work Phone: 10-16-2016 14:46-0400 BMI (Body Mass Index) 34.85 kg/m2 [facility] Work Phone: 10-16-2016 14:46-0400 BP Diastolic 60 mm[Hg] [facility] Work Phone: 10-16-2016 14:46-0400 BP Systolic 122 mm[Hg] [facility] Work Phone: 10-16-2016 14:46-0400 Height 175.26 cm [facility] Work Phone: 10-16-2016 14:46-0400 Pulse (Heart Rate) 52 /min [facility] Work Phone: 10-16-2016 14:46-0400 Respiratory Rate 18 /min [facility] Work Phone: 10-16-2016 14:46-0400 Weight 107.05 kg [facility] Work Phone: 01-22-2016 10:56-0400 BMI (Body Mass Index) 36.5 kg/m2 Nicole Weathers RN [facility] Work Phone: 01-22-2016 10:56-0400 Body Temperature 98 [degF] Nicole Weathers RN [facility] Work Phone: 01-22-2016 10:56-0400 BP Diastolic 75 mm[Hg] Nicole Weathers RN [facility] Work Phone: 01-22-2016 10:56-0400 BP Systolic 131 mm[Hg] Nicole Weathers RN [facility] Work Phone: 01-22-2016 10:56-0400 BSA (Body Surface Area) 2.26 m2 Nicole Weathers RN [facility] Work Phone: 01-22-2016 10:56-0400 Height 175.26 cm Nicole Weathers RN [facility] Work Phone: 01-22-2016 10:56-0400 Pulse (Heart Rate) 68 /min Nicole Weathers RN [facility] Work Phone: 01-22-2016 10:56-0400 Pulse Oximetry 95 % Nicole Weathers RN [facility] Work Phone: 01-22-2016 10:56-0400 Respiratory Rate 18 /min Nicole Weathers RN [facility] Work Phone: 01-22-2016 10:56-0400 Weight 112.36 kg Nicole Weathers RN [facility] Work Phone: 01-22-2016 10:56-0400 Weight 112.13 kg Nicole Weathers RN [facility] Work Phone: 07-25-2015 11:17-0400 Body Temperature 98.01 [degF] Nicole Weathers RN [facility] Work Phone: 05-09-2014 13:39-0500 Height 175.26 cm Nicole Weathers RN [facility] Work Phone: Encounters Encounter Date Encounter Type Care Provider Facility Start: 02-16-2025 End: 02-16-2025 ambulatory Eric Lozano [facility] Start: 02-15-2025 End: 02-15-2025 ambulatory Eric Lozano Facility:[facility] Start: 01-09-2025 End: 01-09-2025 ambulatory ERIC LOZANO Facility:[facility] Start: 01-04-2025 End: 01-04-[address] Sheeba Velasco MD -Laboratory Work Phone: Start: 01-04-2025 End: 01-04-[address] Eric Lozano MD Work Phone: -[facility] Start: 01-04-2025 End: 01-04-2025 ambulatory [facility] Facility:[facility] Start: 12-23-2024 End: 12-23-[address] Eric Lozano MD Work Phone: -Outpatient Breast Imaging Start: 12-23-2024 End: 12-23-[address] Eric Lozano MD -Outpatient Breast Imaging Work Phone: Start: 12-23-2024 End: 12-23-2024 ambulatory Eric Lozano Facility:[facility] Start: 10-19-2024 End: 10-19-[address] Eric Lozano MD Work Phone: -Laboratory [place] Start: 10-19-2024 End: 10-19-[address] Sheeba Velasco MD -Laboratory [place] Work Phone: Start: 10-19-2024 End: 10-19-2024 ambulatory [facility] Facility:[facility] Start: 10-12-2024 End: 10-12-[address] Eric Lozano MD Work Phone: -Laboratory [place] Start: 10-12-2024 End: 10-12-[address] Sheeba Velasco MD -Laboratory [place] Work Phone: Start: 10-12-2024 End: 10-12-2024 ambulatory [facility] Facility:[facility] Start: 07-21-2024 End: 07-21-[address] Eric Lozano MD Work Phone: [facility] Work Phone: Start: 07-21-2024 End: 07-21-[address] Sheeba Velasco MD -Laboratory, [place] Work Phone: Start: 07-21-2024 End: 07-21-2024 ambulatory Sheeba Velasco Facility:[facility] Start: 06-28-2024 End: 06-28-2024 Emergency department patient visit Dr. Eric Lozano MD Work Phone: -Emergency Department Work Phone: Start: 06-22-2024 End: 06-22-[address] Mario Taveras MD -[facility] Start: 06-22-2024 End: 06-22-2024 ambulatory Mario Taveras [facility] Start: 06-06-2024 End: 06-06-2024 ambulatory ERIC LOZANO Facility:[facility] Start: 06-06-2024 End: 06-06-2024 Patient encounter procedure Lynn Braxton APRN.CNP Work Phone: [facility] Comment on above: Bacterial sinusitis (Primary Dx) Start: 05-26-2024 End: 05-26-2024 Office outpatient visit 25 minutes Mira Valencia PA-C Work Phone: [facility] Comment on above: Acute cough (Primary Dx); Viral bronchitis Start: 05-26-2024 End: 05-26-2024 ambulatory ERIC LOZANO Facility:[facility] Start: 05-26-2024 End: 05-26-2024 Subsequent hospital visit by physician [facility] Work Phone: Radiology Comment on above: Acute cough [R05.1] Start: 04-28-2024 End: 04-28-[address] Sheeba Velasco MD -Laboratory, [place] Work Phone: Start: 04-28-2024 End: 04-28-2024 ambulatory Sheeba Velasco Facility:[facility] Start: 04-01-2024 Non-patient / Non-visit Dr. Sheri Lamb [facility] Work Phone: Start: 04-01-2024 ambulatory Eric Lozano Facility:[facility] Start: 03-31-2024 Non-patient / Non-visit Dr. Eric delvalle [facility] Work Phone: Start: 03-31-2024 End: 04-01-2024 ambulatory Eric Lozano Facility:[facility] Start: 03-31-2024 End: 04-01-2024 Evaluation and management of inpatient Dr. Sheri Lamb DO [facility] Work Phone: Start: 03-31-2024 End: 03-31-2024 Patient encounter procedure Yudy Angel [employer] -Cat Scan, [facility] Work Phone: Start: 03-31-2024 End: 03-31-2024 ambulatory Eric Lozano Facility:[facility] Start: 03-29-2024 End: 03-29-2024 ambulatory Vickey LOZANO Facility:[facility] Start: 10-13-2023 End: 10-13-2023 Subsequent hospital visit by physician Olamide [facility] Work Phone: Radiology Comment on above: Acute cough [R05.1] Start: 10-13-2023 End: 10-13-2023 Patient encounter procedure Katharine Gee APRN.VP OF [employer] MARKETING Work Phone: [facility] Comment on above: Acute cough (Primary Dx); URI, acute Start: 08-14-2023 End: 08-14-[address] Eric Lozano Work Phone: [facility] Work Phone: Start: 08-14-2023 End: 08-14-[address] Eric Lozano Work Phone: [facility]-Laboratory Work Phone: Start: 08-12-2023 Non-patient / Non-visit Dr. Arnoldo Lozano Work Phone: [facility] Start: 08-12-2023 End: 08-12-[address] Eric Lozano Work Phone: [facility] Work Phone: Start: 08-12-2023 End: 08-12-[address] Eric Lozano Work Phone: [facility] Work Phone: Start: 07-31-2023 Non-patient / Non-visit Dr. Arnoldo Lozano Work Phone: [facility] Work Phone: Start: 07-30-2023 Non-patient / Non-visit Dr. Arnoldo Lozano Work Phone: [facility] Work Phone: Start: 07-30-2023 Non-patient / Non-visit Dr. Arnoldo Lozano Work Phone: [facility] Start: 07-29-2023 Non-patient / Non-visit Dr. Arnoldo Lozano Work Phone: [facility] Work Phone: Start: 07-29-2023 Non-patient / Non-visit Dr. Arnoldo Lozano Work Phone: [facility] Start: 07-29-2023 Non-patient / Non-visit Dr. Arnoldo Lozano Work Phone: [facility] Start: 07-28-2023 End: 07-31-2023 Evaluation and management of inpatient [facility] Work Phone: Start: 06-05-2023 End: 06-05-2023 ambulatory [facility] Work Phone: Start: 06-05-2023 End: 06-05-2023 Patient encounter procedure [facility]-Cat Scan, [facility] Work Phone: Start: 05-31-2023 End: 05-31-2023 Emergency department patient visit [facility] Work Phone: Start: 04-21-2023 End: 04-21-2023 ambulatory [facility] Work Phone: Start: 04-21-2023 End: 04-21-2023 Patient encounter procedure [facility] Work Phone: Start: 02-25-2023 End: 02-25-2023 Subsequent hospital visit by physician X[facility] Work Phone: Radiology Comment on above: Closed nondisplaced fracture of proximal phalanx of lesser toe of right foot, initial encounter [S92.514A] Start: 02-12-2023 End: 02-12-[address] Eric Lozano Work Phone: [facility] Work Phone: Start: 02-12-2023 End: 02-12-[address] Eric Lozano Work Phone: [facility] Work Phone: Start: 02-11-2023 End: 02-11-2023 Patient encounter procedure Marek Chauhan Work Phone: Podiatry Comment on above: Closed nondisplaced fracture of proximal phalanx of lesser toe of right foot, initial encounter Start: 01-29-2023 End: 01-29-2023 Subsequent hospital visit by physician Xr [facility] Work Phone: Radiology Comment on above: Toe injury, right, i nitial encounter [S99.921A] Start: 01-29-2023 End: 01-29-2023 Patient encounter procedure Ronaldo Russo APRN.CNP Work Phone: [facility] Comment on above: Closed nondisplaced fracture of proximal phalanx of lesser toe of right foot, initial encounter (Primary Dx); Toe injury, right, initial encounter Start: 12-23-2022 End: 12-23-2022 Patient encounter procedure Ronaldo Russo APRN.[employer] Work Phone: [facility] Comment on above: Lower resp. tract in fection (Primary Dx) Start: 12-13-2022 End: 12-13-[address] Eric Lozano Work Phone: [facility] Work Phone: Start: 11-11-2022 End: 11-11-[address] Eric Lozano Work Phone: [facility] Work Phone: Start: 11-11-2022 End: 11-11-[address] Eric Lozano Work Phone: [facility] Work Phone: Start: 11-08-2022 End: 11-08-[address] Eric Lozano Work Phone: [facility] Work Phone: Start: 10-03-2022 End: 10-03-[address] Eric Lozano Work Phone: [facility] Work Phone: Start: 09-26-2022 Telephone encounter Anny Roach APRN.[employer] OF [employer] Work Phone: [facility] Comment on above: Results Start: 09-26-2022 End: 09-26-2022 Subsequent hospital visit by physician X[facility] Work Phone: Radiology Comment on above: Acute cough [R05.1] Start: 09-26-2022 End: 09-26-2022 Office outpatient visit 25 minutes Faisal Mancini APRN.[employer] OF [employer] Work Phone: [facility] Comment on above: Acute cough (Primary Dx); Viral illness; Suspected COVID-19 virus infection Start: 09-05-2022 End: 09-05-2022 ambulatory [facility] Work Phone: Start: 09-05-2022 End: 09-05-2022 Patient encounter procedure [facility] Start: 08-22-2022 End: 08-22-2022 Patient encounter procedure [facility] Start: 08-15-2022 End: 08-15-2022 Patient encounter procedure Ronaldo Russo APRN.[employer] OF [employer] Work Phone: [facility] Comment on above: Pain in salivary gla nd region (Primary Dx) Start: 06-12-2022 End: 06-12-2022 ambulatory [facility] Work Phone: Start: 06-12-2022 End: 06-12-2022 Patient encounter procedure [facility] Start: 06-04-2022 End: 06-04-2022 ambulatory [facility] Work Phone: Start: 06-04-2022 End: 06-04-2022 Patient encounter procedure [facility] D[facility] Start: 04-22-2022 End: 04-22-2022 ambulatory [facility] Work Phone: Start: 04-22-2022 End: 04-22-2022 Patient encounter procedure [facility] Start: 04-13-2022 End: 04-13-2022 Patient encounter procedure Ronaldo Russo APRN.VP OF DIGITAL MARKETING Work Phone: [facility] Comment on above: Sinobronchitis (Prim vickie Dx) Start: 03-15-2022 Telephone encounter Daria moe PA-C Work Phone: [facility] Comment on above: Results Start: 03-14-2022 End: 03-14-2022 Patient encounter procedure Anny Roach APRN.VP OF [employer] MARKETING Work Phone: [facility] Comment on above: URI, acute (Primary Dx) Start: 02-26-2022 End: 02-26-[address] Eric Lozano Work Phone: [facility] Work Phone: Start: 02-26-2022 End: 02-26-[address] Eric Lozano Work Phone: [facility] Start: 01-01-2022 End: 01-01-[address] Eric Lozano Work Phone: [facility] Work Phone: Start: 01-01-2022 End: 01-01-[address] Eric Lozano Work Phone: [facility] Start: 11-27-2021 Non-patient / Non-visit Dr. Arnoldo Lozano Work Phone: [facility] Start: 11-27-2021 End: 11-27-[address] Eric Lozano Work Phone: [facility] Start: 11-08-2021 End: 11-08-[address] Eric Lozano Work Phone: [facility] Start: 11-08-2021 End: 11-08-[address] Eric Lozano Work Phone: [facility] Start: 10-19-2021 End: 10-19-2021 Patient encounter procedure [facility] Start: 09-14-2021 End: 09-14-2021 Patient encounter procedure Anny Roach APRN.VP OF [employer] MARKETING Work Phone: [facility] Comment on above: Cough (Primary Dx) Start: 09-07-2021 End: 09-07-2021 Patient encounter procedure Anny Roach APRN.VP OF D[employer] MARKETING Work Phone: [facility] Comment on above: Cough (Primary Dx) Start: 07-11-2021 End: 07-11-2021 Patient encounter procedure [facility] Start: 07-06-2021 End: 07-06-2021 [facility] Start: 07-05-2021 End: 07-05-2021 [facility] Start: 07-04-2021 End: 07-04-2021 [facility] Start: 06-29-2021 End: 06-29-2021 [facility] Start: 06-21-2021 End: 06-21-2021 Patient encounter procedure [facility] Start: 05-29-2021 End: 05-29-2021 [facility] encounter [facility] Start: 05-18-2021 End: 05-18-2021 Subsequent hospital visit by physician [facility] Work Phone: Radiology Comment on above: Toe injury, left, in itial encounter [S99.922A] Start: 04-02-2021 Patient encounter procedure [facility] Start: 12-22-2020 End: 12-22-2020 Subsequent hospital visit by physician [facility] Work Phone: Radiology Comment on above: URI, acute [J06.9] Procedures Date Procedure Procedure Detail Performing Clinician Start: 12-23-[address] Eric Lozano MD Work Phone: Start: 10-19-2024 In-vitro immunologic test Dr. Eric Lozano MD Work Phone: Comment on above: QuantiFERON-TB Gold Plus is a qualitativ e indirect test forM tuberculosis infection (including disease) and isintended for use in conjunction with risk assessment,radiography, and other medical and diagnostic evaluations.The QuantiFERON-TB Gold Plus result is determined bysubtracting the Nil value from either TB antigen (Ag)value. The Mitogen tube serves as a control for the test. No response to M tub erculosis antigens [...] cells for the productionof interferon gamma. Chemiluminescence immunoassaymethodologyPerformed at: [address] [id number] Director: Wilfredo Apodaca PhD, Phone: [phone] Start: 06-28-[address] Eric Lozano MD Work Phone: Start: 06-28-2024 X-ray of chest, PA and lateral views Dr. Eric Lozano MD Work Phone: Start: 06-22-2024 X-ray of chest, PA and lateral views Dr. Eric Lozano MD Work Phone: Start: 05-26-2024 Radiologic exam chest 2 views Mira calles PA-C Work Phone: Start: 03-31-2024 SARS-CoV-2, Influenza & RSV (PCR) Dr. Arnoldo Lozano MD Work Phone: Start: 03-31-[address] Eric Lozano MD Work Phone: Start: 03-31-2024 CT angiography of chest with contrast Dr Judit Lozano MD Work Phone: Start: 03-31-2024 X-ray of chest, PA and lateral views Dr. Eric Lozano MD Work Phone: Start: 10-13-2023 Radiologic exam chest 2 views Katharine osullivan [employer]YLAND FARMER.VP OF DIGITAL MARKETING Work Phone: Start: 07-29-2023 Computed tomography of abdomen and pelvis with contrast Dr. Eric Lozano Work Phone: Start: 07-28-2023 CT angiography of chest with contrast Start: 06-05-2023 End: 06-05-2023 MRI of lower extremity Start: 05-31-2023 Radiologic examination of knee Start: 05-31-2023 Radiography of ankle Start: 01-29-2023 Radex toe minimum 2 views Ronaldoluca Russo [employer]ER.VP OF [employer]ITAL MARKETING Work Phone: Start: 11-11-[address] Eric Lozano Work Phone: Start: 09-26-2022 Radiologic exam chest 2 views Faisal Addis [employer] F[employer]ER.VP OF D[employer]ITAL MARKETING Work Phone: Start: 06-04-2022 Dual energy X-ray [...] 05-18-2021 Radex toe minimum 2 views Vianey Chamberlain [employer]ER.VP OF D[employer]ITAL MARKETING Work Phone: Start: 12-22-2020 Radiologic exam chest 2 views Katharine osullivan [employer] F[employer].VP OF [employer] MARKETING Work Phone: Start: 10-16-2016 End: 10-16-2016 Dietary [...] 10-23-2015 End: 10-23-2015 Lactate dehydrogenase (LDH) Ana cabrales Work Phone: Start: 10-23-2015 End: 10-23-2015 Urate [...] 06-27-2015 End: 06-27-2015 Lactate dehydrogenase (LDH) Ana Hurd cabrales Work Phone: Start: 06-27-2015 End: 06-27-2015 Urate Ana Hackett Work Phone: Start: 01-03-2015 End: 01-03-2015 *CBC with Differential Ana Hackett Work Phone: Start: 11-15-2014 End: 11-16-2014 *CMP Complete Metabolic Panel Ana Hackett Work Phone: Start: 11-15-2014 End: 11-16-2014 Ferritin Ana Hackett Work Phone: Start: 11-15-2014 End: 11-16-2014 Lactate dehydrogenase (LDH) Ana cabrales Work Phone: Start: 11-15-2014 End: 11-16-2014 Urate Ana Hackett Work Phone: Start: 08-15-2014 End: 11-08-2014 *CBC with Differential Ana Hackett Work Phone: Start: 08-15-2014 End: 08-15-2014 *CMP Complete Metabolic Panel Ana Hackett Work Phone: Start: 08-15-2014 End: 11-08-2014 *MISC - Miscellaneous Lab Test #1 Shelia Hackett Work Phone: Start: 08-15-2014 End: 08-16-2014 [...] 08-15-2014 End: 08-15-2014 Lactate dehydrogenase (LDH) Ana cabrales Work Phone: Start: 08-15-2014 End: 08-15-2014 Urate Ana Hcakett Work Phone: Start: 06-29-2007 Mammography Anny Roach [employer].VP OF [employer]ITAL MARKETING Work Phone: Start: 06-26-2007 Lipid 1996 panel - Serum or Plasma Sun Russo APRN.VP OF DIGITAL MARKETING Work Phone: Acid fast bacilli culture Cytopathology proced ure, preparation of smear, genital source Plan of Treatment Date Care Activity Detail Author Start: 06-16-2025 Screening for malign ant neoplasm of colon [facility] Start: 11-17-2024 Urine microalbumin profile DTa P,Tdap,Td Vaccine (2 - Td or Tdap) [facility] Start: 06-28-2024 [facility] Start: 04-14-2024 Advance Directive Discussion Advance Directive Discussion [facility] Start: 04-01-2024 Patient discharge [facility] Start: 03-31-2024 Following clinical p athway protocol [facility] Start: 03-31-2024 Ambulation without limitation [facility] Start: 03-31-2024 Assessment of risk o f venous thromboembolism [facility] Start: 03-31-2024 Insertion of cathete r into peripheral vein [facility] Start: 03-31-2024 Providing care accor ding to [facility] Start: 03-31-2024 [facility] Start: 03-31-2024 Admission procedure [facility] Start: 03-31-2024 Inhalation therapy procedure [facility] Start: 12-14-2023 Influenza vaccination Influenza Vacc ine (#1) [facility] Start: 07-31-2023 Patient discharge [facility] Start: 07-29-2023 Referral to vascular surgeon [facility] Start: 07-28-2023 Following clinical p athway protocol [facility] Start: 07-28-2023 Application of brace [facility] Start: 07-28-2023 Assessment of risk o f venous thromboembolism [facility] Start: 07-28-2023 Fall prevention [facility] Start: 07-28-2023 Inhalation therapy procedure [facility] Start: 07-28-2023 Insertion of cathete r into peripheral vein [facility] Start: 07-28-2023 Introduction of urin vickie catheter [facility] Start: 07-28-2023 Measuring intake and output [facility] Start: 07-28-2023 Oxygen therapy [facility] Start: 07-28-2023 Providing care accor ding to [facility] Start: 07-28-2023 Provision of activit y privileges [facility] Start: 07-28-2023 Referral to occupati onal therapist [facility] Start: 07-28-2023 Referral to service [facility] Start: 07-28-2023 Tobacco use cessatio n education [facility] Start: 07-28-2023 [facility] Start: 07-28-2023 Brain natriuretic pe ptide measurement [facility] Start: 07-28-2023 Verification routine [facility] Start: 07-28-2023 Partial thromboplast in time, activated [facility] Start: 07-28-2023 Prothrombin time [facility] Start: 07-28-2023 Hospital admission, emergency, from emergency room, medical nature [facility] Start: 07-28-2023 Admission procedure [facility] Start: 07-28-2023 End: 07-29-2023 [facility] Start: 07-28-2023 Patient referral to dietitian [facility] Start: 05-31-2023 [facility] Start: 05-31-2023 Application long leg splint thigh ankle/toes APPLICATION LONG LEG SPLINT [facility] Start: 04-14-2023 Advance Directive Discussion Advance Directive Discussion [facility] Start: 04-14-2023 Behavioral Health Screening Behavioral Health Screening [facility] Start: 12-13-2022 Influenza vaccination [facility] Start: 09-26-2022 End: 10-10-2022 Influenza virus A and B RNA and SARS-CoV-2 (COVID-19) N gene panel - Respiratory specimen by JANA with probe detection [facility] Work Phone: Comment on above: Expected: 09/26/2022 , Expires: 10/10/2022 Start: 04-14-2022 ADVANCE DIRECTIVE DISCUSSION ADVANCE DIRECTIVE DISCUSSION [facility] Start: 04-14-2022 DEPRESSION ASSESSMENT DEPRESSION ASS ESSMENT [facility] Start: 03-14-2022 End: 03-28-2022 Influenza virus A and B RNA and SARS-CoV-2 (COVID-19) N gene panel - Respiratory specimen by JANA with probe detection [facility] Work Phone: Comment on above: Expected: 03/14/2022 , Expires: 03/28/2022 Start: 12-13-2021 Influenza vaccination C [facility] Start: 04-14-2021 ADVANCE DIRECTIVE DISCUSSION ADVANCE DIRECTIVE DISCUSSION [facility] Start: 04-14-2021 DEPRESSION ASSESSMENT DEPRESSION ASS ESSMENT [facility] Start: 05-08-2018 Pneumococcal Vaccine : 65+ (3 - PPSV23 or PCV20) Pneumococcal Vaccine: 65+ (3 - PPSV23 or PCV20) [facility] Start: 01-23-2018 Pneumococcal Vaccine : 50+ (3 of 3 - PPSV23, PCV20 or PCV21) Pneumococcal Vaccine: 50+ (3 of 3 - PPSV23, PCV20 or PCV21) [facility] Start: 01-23-2018 Pneumococcal Vaccine : 65+ (3 of 3 - PPSV23 or PCV20) Pneumococcal Vaccine: 65+ (3 of 3 - PPSV23 or PCV20) [facility] Start: 10-10-2017 End: 10-10-2017 Appointment Appointment [facility] Work Phone: Start: 01-20-[address] [facility] Start: 01-20-2017 Bone Density Screening Bone Density Screening [facility] Start: 01-20-2017 Screening for osteoporosis Bone Dens ity Screening [facility] Start: 10-16-2016 End: 10-16-2016 Appointment Appointment [facility] Work Phone: Start: 10-16-2016 End: 10-31-2016 Echocardiography Echocardiogram (complete) [facility] Work Phone: Start: 10-16-2016 End: 10-16-2016 Follow Up Appt 1 year Follow Up Appt 1 year [facility] Work Phone: Start: 10-16-2016 End: 10-16-2016 MMM MMM [facility] Work Phone: Start: 07-15-2016 [...] 07-15-2016 End: 01-22-2016 Cobalamins (Vitamin B12) *B-12 [employer] [facility] [employer] Work Phone: Start: 07-15-2016 End: 01-22-2016 Ferritin *Ferritin [employer] Work Phone: Start: 07-15-2016 End: 01-22-2016 Iron and Iron binding capacity panel - Serum or Plasma *IBC Iron & Total Iron Binding Capacity [employer] Work Phone: Start: 04-22-2016 End: 01-22-2016 *CBC w/Diff - oncology ONLY *CBC w/Diff - oncology ONLY [employer] Work Phone: Start: 01-22-2016 End: 07-25-2015 *CBC with Differential *CBC with Differential [employer] Work Phone: Start: 01-22-2016 End: 07-25-2015 *CMP Complete Metabolic Panel *CMP Complete Metabolic Panel [employer] Work Phone: Start: 01-22-2016 End: 01-22-2016 Echo exam of abdomen US Abdomen, limited [employer] Work Phone: Start: 01-22-2016 End: 07-25-2015 Ferritin *Ferritin [employer] Work Phone: Start: 01-22-2016 End: 07-25-2015 Iron *Iron [employer] Work Phone: Start: 01-22-2016 End: 07-25-2015 Iron binding capacity [Mass/volume] in Serum or Plasma *TIBC [employer] Work Phone: Start: 01-22-2016 End: 07-25-2015 Lactate dehydrogenase (LDH) *LDH -LDH (Lactate Dehydrogenase) [employer] Work Phone: Start: 01-22-2016 End: 01-22-2016 Mammogram, both breasts Mammogram, Diagnostic, both breasts [employer] Work Phone: Start: 01-22-2016 End: 01-22-2016 Mammogram, screening Mammogram, Screening, both breasts [employer] Work Phone: Start: 01-22-2016 End: 07-25-2015 Urate *Uric Acid Blood [employer] Work Phone: Start: 10-23-2015 End: 07-25-2015 *CBC with Differential *CBC with Differential [employer] Work Phone: Start: 10-23-2015 End: 10-23-2015 *CMP Complete Metabolic Panel *CMP Complete Metabolic Panel [employer] Work Phone: Start: 10-23-2015 End: 10-23-2015 Ferritin *Ferritin [employer] Work Phone: Start: 10-23-2015 End: 10-23-2015 Iron *Iron [employer] Work Phone: Start: 10-23-2015 End: 10-23-2015 Iron binding capacity [Mass/volume] in Serum or Plasma *TIBC [employer] Work Phone: Start: 10-23-2015 End: 10-23-2015 Lactate dehydrogenase (LDH) *LDH -LDH (Lactate Dehydrogenase) [employer] Work Phone: Start: 10-23-2015 End: 10-23-2015 Urate *Uric Acid Blood [employer] Work Phone: Start: 06-27-2015 End: 03-28-2015 *CBC with Differential *CBC with Differential [employer] [facility] Work Phone: Start: 06-27-2015 End: 06-27-2015 *CMP Complete Metabolic Panel *CMP Complete Metabolic Panel [employer] Work Phone: Start: 06-27-2015 End: 06-28-2015 Cobalamins (Vitamin B12) *B-12 [employer] [facility] [employer] Work Phone: Start: 06-27-2015 End: 06-27-2015 Ferritin *Ferritin [employer] Work Phone: Start: 06-27-2015 End: 03-28-2015 Folate *FOLS Folates-Folic Acid, Serum [facility] Work Phone: Start: 06-27-2015 End: 06-27-2015 Iron *Iron [facility] Work Phone: Start: 06-27-2015 End: 06-27-2015 Iron binding capacity [Mass/volume] in Serum or Plasma *TIBC [facility] Work Phone: Start: 06-27-2015 End: 06-27-2015 Lactate dehydrogenase (LDH) *LDH -LDH (Lactate Dehydrogenase) [facility] Work Phone: Start: 06-27-2015 End: 06-27-2015 Urate *Uric Acid Blood [facility] Work Phone: Start: 03-28-2015 End: 11-22-2014 *CBC with Differential *CBC with Differential [facility] Work Phone: Start: 02-14-2015 End: 11-22-2014 *CBC with Differential *CBC with Differential [facility] Work Phone: Start: 01-03-2015 End: 01-03-2015 *CBC with Differential *CBC with Differential [facility] Work Phone: Start: 11-15-2014 End: 11-08-2014 *CBC with Differential *CBC with Differential [facility] Work Phone: Start: 11-15-2014 End: 11-16-2014 *CMP Complete Metabolic Panel *CMP Complete Metabolic Panel [facility] Work Phone: Start: 11-15-2014 End: 11-16-2014 Ferritin *Ferritin [facility] Work Phone: Start: 11-15-2014 End: 11-16-2014 Lactate dehydrogenase (LDH) *LDH -LDH (Lactate Dehydrogenase) [facility] Work Phone: Start: 11-15-2014 End: 11-16-2014 Urate *Uric Acid Blood [facility] Work Phone: Start: 08-15-2014 End: 11-08-2014 *CBC with Differential *CBC with Differential [facility] Work Phone: Start: 08-15-2014 End: 08-15-2014 *CMP Complete Metabolic Panel *CMP Complete Metabolic Panel [facility] Work Phone: Start: 08-15-2014 End: 11-08-2014 *MISC - Miscellaneous Lab Test #1 *MISC - Miscellaneous Lab Test #1 [facility] Work Phone: Start: 08-15-2014 End: 08-16-2014 Cobalamins (Vitamin B12) *B-12 [facility] [facility] [employer] Work Phone: Start: 08-15-2014 End: 08-15-2014 Ferritin *Ferritin [facility] Work Phone: Start: 08-15-2014 End: 08-18-2014 Haptoglobin *HAP Haptoglobin [facility] Work Phone: Start: 08-15-2014 End: 08-15-2014 Iron *Iron [facility] Work Phone: Start: 08-15-2014 End: 08-15-2014 Iron binding capacity [Mass/volume] in Serum or Plasma *TIBC [facility] Work Phone: Start: 08-15-2014 End: 08-15-2014 Lactate dehydrogenase (LDH) *LDH -LDH (Lactate Dehydrogenase) [facility] Work Phone: Start: 08-15-2014 End: 08-15-2014 Urate *Uric Acid Blood [facility] Work Phone: Start: 06-25-2012 Lipid 1996 panel - S mona or Plasma Lipid Screening [facility] Start: 06-25-2012 Lipid panel Lipid Screening [facility] Start: 06-25-2012 L[address] SCREEN LIPID SCREEN [facility] Start: 2012 RSV Vaccine (1 - 1-d ose 60+ series) RSV Vaccine (1 - 1-dose 60+ series) [facility] Start: 2012 RSV Vaccine (1 - Ris k 60-74 years 1-dose series) RSV Vaccine (1 - Risk 60-74 years 1-dose series) [facility] Start: 06-25-2010 DIABETES SCREEN DIABETES SCREEN [facility] Start: 06-25-2010 Diabetes Screening Diabetes Screenin g [facility] Start: 06-28-[address] [facility] Start: 06-28-2008 Screening for malign ant neoplasm of breast Mammogram Screening [facility] Start: 01-20-2002 Influenza vaccination LUNG CANCER SC [facility] Start: 01-20-2002 Screening for malign ant neoplasm of lung Lung Cancer Screening [facility] Start: 01-20-2002 SHINGRIX VACCINE (1 of 2) VILLAR GRIX VACCINE (1 of 2) [facility] Start: 01-20-1997 COLOGUARD (FIT-DNA) COLOGUARD (FIT-D NA) [facility] Start: 01-20-[address] [facility] Start: 01-20-1997 COLORECTAL CANCER SCREENING COLORECTAL CANCER SCREENING [facility] Start: 01-20-[address] COLONOGRAPHY [facility] Start: 01-20-1997 FECAL OCCULT BLOOD FECAL OCCULT BLOO D [facility] Start: 01-20-1997 Screening for malign ant neoplasm of colon [facility] Start: 01-20-1997 SIGMOIDOSCOPY SIGMOIDOSCOPY [facility] Start: 01-20-1971 SHINGRIX VACCINE (1 of 2) VILLAR GRIX VACCINE (1 of 2) [facility] Start: 01-20-1971 Urine microalbumin profile DTAP,TDAP ,TD (1 - Tdap) [facility] Start: 01-20-1970 Anxiety Screening Anxiety Screening [facility] Start: 01-20-1970 Depression Screening Depression Scre ening [facility] Start: 01-20-1970 HEPATITIS C SCREENING HEPATITIS C [facility] Start: 01-20-1970 Hepatitis C screening Hepatitis C [facility] Start: 1964 Adult depression scr ning assessment DEPRESSION SCREENING [facility] Start: 01-20-1963 Screening for malign ant neoplasm of cervix Cervical Cancer Screening [facility] Start: 01-20-1958 PNEUMOCOCCAL: 65+ (1 - PCV) PNEUMOCOCCAL: 65+ (1 - PCV) [facility] Start: 01-20-1957 COVID-19 VACCINE (#1) COVID-19 VACCI NE (#1) [facility] Start: 1952 COVID-19 VACCINE (#1) COVID-19 VACCI NE (#1) [facility] Cyclic citrullinated peptide IgG Ab [Units/volume] in Serum or Plasma [facility] Work Phone: INR in Blood by Coagulation assay [facility] Magnesium [Mass/volu me] in Serum or Plasma [facility] Patient Education [facility] Work Phone: Patient referral [facility] Work Phone: [facility] Work Phone: [facility] End: 03-12-2024 XR TOE AP/LAT/OBL RIGHT XR TOE AP/LAT/OBL RIGHT Radiology Routine Closed nondisplaced fracture of proximal phalanx of lesser toe of right foot, initial encounter 1 Occurrences starting 02/11/2023 until 03/12/2024 [facility] Work Phone: Comment on above: 1 Occurrences starti ng 02/11/2023 until 03/12/2024 XR TOE AP/LAT/OBL RIGHT XR TOE A P/LAT/OBL RIGHT Radiology Routine Closed nondisplaced fracture of proximal phalanx of lesser toe of right foot, initial encounter 02/25/2023 10:13 AM EST [facility] Work Phone: [facility] Immunizations Immunization Date Immunization Notes Care Provider Kody padilla 03-01-2019 influenza, injectabl e, quadrivalent, contains preservative Mira Valencia PA-C Work Phone: [facility] 03-01-2019 influenza virus vacc ine, unspecified formulation Ronaldo Russo APRN.CNP Work Phone: [facility] 05-08-2017 pneumococcal conjuga te vaccine, 13 valent Mira SIMPSON-Margo Work Phone: [facility] 11-17-2014 tetanus toxoid, redu sidra diphtheria toxoid, and acellular pertussis vaccine, adsorbed Mira SIMPSON-Margo Work Phone: [facility] 04-14-2013 influenza, seasonal, injectable Mira SIMPSON-Margo Work Phone: [facility] 01-23-2013 pneumococcal polysaccharide vaccine, 23 valent Mira SIMPSON-Margo Work Phone: [facility] 01-23-2013 Pneumococcal Vaccine [facility] Work Phone: 01-23-2013 pneumococcal vaccine , unspecified formulation Dr. Eric Lozano Work Phone: [facility] Payers Date Payer Category Payer Self-pay [id number] 2017 Medicare MEDICARE MEDICAR E A AND B [id number] 2017-Present [phone] [address] [address] [place] [address] Medicare [id number] 2017 Medicare [id number] 2017 Private Health Insurance HUMANA HUMANA MEDICARE SUPPLEMENT [id number] 2017-Present [phone] [address] [address] [place] [address] Indemnity [id number] 2017 Private Health Insurance [id number] 2017 Medicare [id number] 2017 Private Health Insurance [id number] 2014 Unknown [id number] Unknown [id number] .[id number] Unknown [id number] .2.462 Unknown [id number] [id number] .2.462 Unknown [id number] [id number] .2.462 Unknown [id number] 2.16.840.1.274650.3.579 .2.462 Unknown [id number] 2.16.840.1.568382.3.579 .2.462 Unknown [id number] 2.16.840.1.002955.3.579 .2.462 Unknown [id number] 2.16.840.1.918980.3.579 .2.462 Unknown [id number] 2.16.840.1.892305.3.579 .2.462 Unknown [id number] 2.16.840.1.390994.3.579 .2.462 Unknown [id number] 2.16.840.1.345311.3.579 .2.462 Unknown [id number] 2.16.840.1.226974.3.579 .2.462 Unknown [id number] 2.16.840.1.562642.3.579 .2.462 Unknown [id number] 2.16.840.1.387753.3.579 .2.462 Unknown [id number] 2.16.840.1.395462.3.579 .2.462 Unknown [id number] .2.462 Social History Date Type Detail Facility Start: 11-01-2020 End: 07-28-2023 Tobacco smoking status NVIS Unknown if ever smoked [facility] Start: 11-10-2019 None [facility] Start: 11-10-2019 Spouse/ Signif icant Other [facility] Start: 11-10-2019 Cigarettes [facility] Start: 1950 Sex Assigned At Female [facility] Start: 12-22-2020 [facility] Start: 04-14-1982 End: 04-14-2012 History of tobacco use Cigarette Smoker [facility] Start: 09-07-2021 End: 03-29-2024 Alcohol intake Current non-drinker of alcohol (finding) [facility] Start: 1950 Sex Assigned At Not on file [facility] Start: 09-14-2021 End: 06-28-2024 Tobacco smoking status [facility]IS Ex-smoker [facility] Start: 09-14-2021 End: 02-11-2023 Cigarettes smoked current (pack per day) - Reported 1 [facility] Start: 09-14-2021 End: 03-29-2024 Tobacco use and exposure Smokeless tobacco non-user [facility] Start: 09-14-2021 End: 03-14-2022 Tobacco Comment d/c 2009 [facility] Start: 11-22-2020 End: 03-14-2022 Exposure to SARS-CoV-2 (event) Not sure [facility] Work Phone: Start: 04-14-1982 End: 04-14-2012 History of tobacco use Current smoker [facility] Start: 12-23-2022 End: 02-11-2023 Tobacco use panel [facility] National Score (1-10 0), lower number is lower risk Not on file [facility] Start: 06-28-2024 End: 07-26-2024 Sex Female (finding) [facility] Goals Date Patient Goal Desired Activity /State Functional Status Date Assessment Result Facility 04-01-2024 Functional status Ambulates;Bathroom Priv ilege [facility] Work Phone: 07-31-2023 Functional status Bedside Commode [facility] Work Phone: 07-30-2023 Functional status Assistive Tosin meseret Standard Walker [facility] Work Phone: Mental Status Date Assessment Result Facility 06-28-2024 Cognitive function Level Of Cons ciousness Awake;Alert;Appropriate;Follow s Commands [facility] Work Phone: 04-01-2024 Cognitive function Voice/Name [facility] Work Phone: 07-31-2023 Cognitive function Voice/Name [facility] Work Phone: Clinical Notes 07-15-2007 to 01-09-2025 Note Date & Type Note Facility 01-09-2025 Note HNO ID: [id number] Author: KELSEA HUERTA RT(R) Service: ? Author Type: Technologist Type: Progress Notes Filed: 01/09/2025 10:57 Note Text: Radiology Service Progress Note PATIENT NAME: Kiko Godfrey DATE OF SERVICE: January 09, 2025 TIME: 10:52 AM PATIENT IDENTITY VERIFICATION COMPLETED USING TWO (2) IDENTIFIERS: Name and Date of confirmed by patient verbally. FALL SCREENING: Has the patient had 2 falls in the last year or 1 fall with injury or currently using an Ambulatory Assistive Device (Walker, Cane, Wheelchair, Crutches, etc.)? No PATIENT GENDER DATA: Assigned female at . status: : No status: N/A PATIENT RELEVANT IMPLANT DATA REVIEWED: Not Applicable PATIENT PRESENTS WITH AN IMPLANTABLE OR ATTACHED MORTGAGE BRANCH MANAGER: No RADIOLOGY DEPARTMENT: General X-ray: Exam(s) Completed: Chest X-Ray PERIPHERAL IV DATA: Not applicable SIGNED BY: RT Vilma(R) January 09, 2025 10:52 AM [facility] 01-09-2025 Note HNO ID: [id number] Author: FAISAL MANCINI APRN.VP OF D[employer]ITAL [employer]ET[employer] Service: ? Author Type: Nurse Practitioner Type: Progress Notes Filed: 01/09/2025 12:31 Note Text: URGENT CARE SUSIE Subjective Kiko Godfrey is a 74 year old female. Patient presents with: Cough: Chest congestion, Shortness of Breath x 6 days HPI Nontoxic-appearing 74-year-old female presents urgent care chief complaint cough chest congestion. Duration of symptoms 6 days. Associated symptoms cough chest congestion sinus pressure. OTC medications without symptom relief. Sick contacts grandchildren. Seen by PCP diagnosed with allergies per denies any chest pain shortness of breath or hemoptysis. No fevers. Past medical history prescription medications allergies reviewed Review of Systems Constitutional: Negative for chills, diaphoresis, fatigue and fever. HENT: Positive for rhinorrhea. Negative for congestion, drooling, ear discharge, ear pain, sinus pressure, sinus pain, sneezing, sore throat and trouble swallowing. Eyes: Negative for pain, discharge, redness, itching and visual disturbance. Respiratory: Positive for cough. Negative for chest tightness, shortness of breath and wheezing. Cardiovascular: Negative for chest pain. Gastrointestinal: Negative for abdominal distention, abdominal pain, blood in stool, constipation, diarrhea, nausea and vomiting. Genitourinary: Negative for difficulty urinating and dysuria. Musculoskeletal: Negative for arthralgias, joint swelling, neck pain and neck stiffness. Skin: Negative for rash. Neurological: Negative for dizziness, weakness, numbness and headaches. Objective BP 146/82 Pulse 64 Temp 36.7 ?C (98 ?F) Resp 20 Wt 94.8 kg (208 lb 15.9 oz) SpO2 99% Physical Exam Constitutional: Appearance: Normal appearance. HENT: Head: Normocephalic. Jaw: No trismus, tenderness, swelling or pain on movement. Nose: No congestion. Mouth/Throat: Mouth: Mucous membranes are moist. Pharynx: Oropharynx is clear. Uvula midline. No oropharyngeal exudate or posterior oropharyngeal erythema. Eyes: Conjunctiva/sclera: Conjunctivae normal. Cardiovascular: Rate and Rhythm: Normal rate. Pulmonary: Effort: Pulmonary effort is normal. Breath sounds: Wheezing and rhonchi present. No rales. Abdominal: Palpations: Abdomen is soft. Tenderness: There is no abdominal tenderness. There is no guarding or rebound. Musculoskeletal: General: Normal range of motion. Cervical back: Normal range of motion and neck supple. No edema, erythema or rigidity. No pain with movement. Normal range of motion. Lymphadenopathy: Cervical: No cervical adenopathy. Skin: General: Skin is warm. Findings: No rash. Neurological: General: No focal deficit present. Mental Status: She is alert and oriented to person, place, and time. Mental status is at baseline. {ASSESSMENT/PLAN: 1. Acute cough - ICD9: 786.2, ICD10: R05.1 (primary diagnosis) - XR CHEST 2V FRONTAL/LAT 2. Sinobronchitis - ICD9: 473.9, 490, ICD10: J32.9, J40 No acute findings noted on imaging. Treat as sinobronchitis. Placed on prednisone and cefdinir. Patient was educated on supportive therapies. Patient will follow up with primary care provider 2 to 3 days for reevaluation patient was instructed to immediately proceed to emergency room for any new, worsening, or symptoms lasting longer than anticipated. The patient's clinical presentation is otherwise unremarkable at this time. Based on exam and clinical finding, the patient is stable for discharge. Plan of care was discussed with patient. Patient verbalizes understanding and agrees to plan of care. This note was generated using [employer] software. It may contain errors in wording, punctuation, or spelling. Faisal Mancini APRN.VP OF D[employer]ITAL MARKET[employer] History and Record Review Clinical information obtained from an independent historian. History obtained from or confirmed by: parent. External record(s) reviewed: prior outpatient record. Disposition The patient was discharged. Procedures [facility] 01-04-2025 Evaluation note Diagnosis Onset Date Resolution Right ventricular dilation, secondary acute January 042024 9:18am Essential hypertension chronic Se ptember 2024 9:18am Paroxysmal supraventricular tachycardia chronic January 04, 2025 9:18am [facility] Work Phone: [phone]) 848-482609-23-2025 Progress [facility] [address] [place] [address] OFFICE VISIT Date of Service: 01/04/25 MR#: [id number] Acct: [id number] Name: KIKO GODFREY Rep #: [id number] : 1950 Provider: TATIANA Araujo Age/Sex: 74/F [place] [facility] Status: Signed HPI HPI History of Present Illness Details: KIKO GODFREY, is a 74 F who presents to the office today for a cardiovascular outpatient follow-up. She has a history of mitral valve prolapse, supraventricular tachycardia- status post radiofrequency ablation in 2002, and hypertension. She had a bilateral PE in July of 2023, and was placed on Eliquis 5mg twice daily. PE was from a broken leg. From a cardiac standpoint, patient is doing well. She does not have any chest discomfort/heaviness/tightness. She does not have any worsening symptoms of shortness of breath. She does not have any orthopnea. She denies PND. She does not have any symptoms of congestive heart failure. She does not have any palpitations that she is aware of. She does not have any lightheadedness or dizziness. She does not have any near-syncope or syncope. She does not have any lower extremity edema. She does not have any symptoms of claudication. 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 by: Self Is patient in pain?: No Allergies doxycycline Adverse Reaction (Verified 01/04/25 09:27) PT UNSURE OF REACTION Medications ?Medication ?Instructions ?Recorded ?Confirmed ?Type hydroxychloroquine 200 mg tablet 200 mg PO BIDCM 09/1801/04/25 History pantoprazole 40 mg tablet,delayed 40 mg PO DAILY 02/2601/04/25 History release famotidine 20 mg tablet 20 mg PO BID 11/08/21 History blood pressure monitor #1 ea 11/08/22 01/28/24 Rx leucovorin calcium 15 mg tablet 15 mg PO QWEEK counter act the 11/08/22 01/04/25 History methotrexate prednisone 2.5 mg tablet 2.5 mg PO DAILY 11/08/22 History Held on 04/01/24. Instructions: Restart once your prednisone taper is completed sulfasalazine 500 mg 1,000 mg PO BID 07/28/23 History tablet,delayed release tramadol 50 mg tablet 50 - 100 mg PO Q6H PRN PRN p ain 07/28/23 01/04/25 History mecobalamin (vitamin B12) 5,000 3,000 mcg PO QDAY 12/1401/04/25 History mcg chewable tablet prednisone 10 mg tablet 10 mg PO DAILY #30 tabs 03/1401/04/25 Rx metoprolol tartrate 50 mg tablet See Rx Instructions . Route 05/14/24 01/04/25 Rx .COMPLEX #180 tabs methotrexate sodium 25 mg/mL 7.5 mg subcut QWEEK arthr itis 01/04/25 01/04/25 History injection solution Have you fallen in the past year?: No PFSH Medical History Anxiety and depression Schizophrenia [...] not use ROS Const Const: Negative for fatigue or weakness ENT ENT: Positive for dizziness (positional); Negative for balance problems Cardio Chest Pain: No Palpitations: No Edema: None Muscle aches with walking: None Resp Respiratory: Negative for SOB with activity, SOB at rest or SOB orthopnea\\SOB lying down GI GI: Positive for heartburn; Negative nausea or vomiting Musc Musc: Negative for muscle weakness or balance problems Neuro Neuro: Positive for dizziness (positional); Negative for lightheadedness, near syncope, syncope or weakness Endo Endo: Negative for fatigue Cardiology Exam Const Appearance: cooperative and no acute distress Nutritional Appearance: average body habitus and obese Orientation: alert and oriented x3 Head Head: normal to inspection Ears: hearing grossly normal bilaterally Nose: external nose normal Face and Sinus: face symmetric Eyes General: appearance normal, both eyes and all related structures Eyelids: eyelids normal Conjunctivae: conjunctivae normal Pupils: PERRL and pupil size EOM: EOM intact bilaterally Neck Neck: normal visual inspection Carotids: Negative bruit Chest Chest inspection: normal inspection of the chest and normal respiratory effort Auscultation: Bilateral: Clear to Auscultation Cardio Palpation: normal PMI Rate: regular rate Rhythm: regular rhythm Heart sounds: S1 normal and S2 normal; Negative rub, gallop or murmur GI GI: normal to inspection, soft and obese Neuro General: patient alert, patient oriented x3 and CN's II-XI intact bilaterally Skin Skin: no rashes or lesions noted Extremities Pulses: Normal: Right Posterior Tibial Pulse, Left Posterior Tibial Pulse, RightRadial Pulse and Left Radial Pulse Lower Extremity Edema: None: Bilateral Psych Psychological: normal affect Supplemental Info Supplemental Information Echocardiogram 07/28/2023: Interpretation Summary Normal LV size. Left ventricular systolic function is normal. D shaped septum in systole and diastole. The left ventricular ejection fraction is 55 %. Moderately dilated right ventricle. Stage 1 diastolic dysfunction. Pulmonary artery systolic pressure is 44 mmHg. Contrast injection was performed. Echocardiogram 11/27/2021: Interpretation Summary Normal LV size. Left ventricular systolic function is normal. The estimated ejection fraction is 60 %. Bubble contrast study negative for right to left interatrial shunt. Stage 3 diastolic dysfunction. ECHOCARDIOGRAM 11/14/2016 Interpretation Summary Normal LV size. Left ventricular systolic function is normal. The estimated ejection fraction is 55 %. Structurally normal valves. ECHOCARDIOGRAM 09/18/2013 Interpretation Summary Left ventricular systolic function is normal. The estimated ejection fraction is 60 %. The left atrium is mildly enlarged. Mild (1+) mitral valve insufficiency. Trivial tricuspid valve insufficiency. Trivial pulmonic valve insufficiency. Right ventricular systolic pressure estimated to be 26 mmHg. Bubble contrast study negative for right to left interatrial shunt. No obvious intracardiac mass lesion / thrombus identified. Labs: LDL Cholesterol, (0-130) 85 mg/dL HDL Cholesterol, (40-) 57 mg/dL Cholesterol, (200) 161 mg/dL Triglycerides, (-199) 94 mg/dL Diagnostics: Electrocardiogram Echocardiogram Chest X-Ray Chest CTA Abdomen Ultrasound Abdomen/Pelvis CT Venous Doppler Study Past Visits: Cardiology Visit Today Assessment and Plan Assessment and Plan (1) Essential hypertension: Status: Chronic Plan: Patient has a history of hypertension. Blood pressure is controlled on her current dose of metoprolol. Will not make any adjustments. (2) Paroxysmal supraventricular tachycardia: Status: Chronic Comment: RFA 03/2003 Plan: Patient has a history of paroxysmal supraventricular tachycardia, status post RFA in 2002. She denies any recent symptoms or events. She will continue with her current medical therapy, along with monitoring for any concerning symptoms. (3) Right ventricular dilation, secondary: Status: Acute Plan: With her right ventricular dilatation would like to repeat an echocardiogram to evaluate further findings. Orders: Orders Echo Complete Today I51.7 - Cardiomegaly Plan Details Additional Comments: Patient will follow-up in 12 months, or sooner if needed. Thank you for allowing me to participate in the care of your patient. Please don't hesitate to callif any issues arise. This note was generated using a voice recognition system and there may be incorrect words, spelling, or punctuation that were not noted when reviewing theoffice note prior to saving. Portions of this documentation were copied and pasted from previous office visitnotes to provide a cohesive continuity of the history. The note has been reviewed, edited, and updated, as necessary. Follow Up: 1 Year (HIM CLERK) Coding Level of Care Code Off vis,est,level 4 Diagnoses Essential hypertension I10 Paroxysmal supraventricular tachycardia I47.1 Right ventricular dilation, secondary I51.7 Coding Level of Care Code Off vis,est,level 4 Diagnoses Essential hypertension I10 Paroxysmal supraventricular tachycardia I47.1 Right ventricular dilation, secondary I51.7 Clinical Quality Measures Falls Risk Screening/Assistive Devices Have you fallen in the past year?: No 01/04/25 0952 Jenna SIMPSON> Date _ Beatrice SIMPSON Cosigner Signature: Date (if applicable) CC: Dr. Eric Lozano MD ~ [facility]03-17-2025 Discharge summary [facility] Medical Records Department [address] [place] [address] Emergency Department Summary 06/28/24 MR#: [id number] Acct: [id number] Name: KIKO GODFREY Rep #:[id number] : 1950 74 From: Gladis Chavez PCP: Dr. Eric Lozano MD Status:[facility] ER Location: ED HPI History [...] prescribed promethazine and prednisone as well as cefdinir(has 1 day left). She notes 3 weeks ago she was at urgent careand diagnosed with a viral bronchitisand a week later was seen again for some type of sinus infection and placed on a course of Augmentin. She feels that yesterday her cough was little better and her sputum was clear but then today itturned back to green. She still feels short of breath. She is not sure if she is worsening or just notgetting better. She is unsure if she has [...] complaints or concerns reported at this time. [facility] Medical History Anxiety and depression Schizophrenia Rheumatoid [...] on antibiotics and steroids I do not thinkbreanna requires further medicine for this. Will be given a prescription for Robitussin AC for further cough suppression and to help with her symptoms. Counseled to stop taking her promethazine(which was prescribed for cough) if she takes Robitussin AC. She has Tessalon Perles but does not feel like they are helpful. Is encouraged to follow-up with her primary care doctor to see if she canget a nebulizer for home prescription. Given return [...] 70.5 H Lymph % (Auto) 18.4 L Lipscomb % (Auto) 9.0 Eos % (Auto) 0.7 [...] 2. Additional description as above. Reading Location: [facility] Rhythm Strip Rhythm Strip: Sinus Rhythm Rate: [...] x-ray does not show an acute pneumonia. Pleasestop the promethazine cough medicine while taking the new prescribed cough medicine as this can cause dangerous sedation. Continue antibiotics and steroids. Your potassium was mildly low and you weregiven a potassium pill in the ER. Please follow-up with your primary care doctor. I suspect you aredeveloping bronchitis associated with your recent influenza and likely will continue to cough for the next 2 weeks. Please discuss to the primary care doctor prescription for nebulizer. Continue to use your albuterol inhaler 1 to 2 puffs every 4-6 hours as needed for cough or chest tightness Print Language: Danish What to do if you have Problems For any increased pain, shortness of breath, bleeding, nausea or vomiting, chestpain, or any unexpected problems, contact your Primary Care Provider. Call [facility] ([phone]) or report tothe closest Emergency Room. Call 911 if necessary. 06/28/24 1238 Cosigner Signature (if applicable): CC: Dr. Eric Lozano MD ~ Signed [facility]03-17-2025 Radiology Diagnostic study note [facility] Imaging Services [address] [place] [address] Chest PA and Lateral MR#: [id number] Acct: [id number] Name: KIKO GODFREY Rep #: [id number] : 1950 F 74 From: Erlinda Albert MD PCP: Dr. Eric Lozano MD Status: PRE ER Study:Chest PA and Lateral Date of Exam: 06/28/24 Exam# [id number] Ordering Dr: Margo Moralez DO PROCEDURE: CHEST [...] 2. Additional description as above. Reading Location: [id number] CC: Dr. Gladis Moralez DO; Dr. 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 Author Type: Nurse Practitioner Type: Progress Notes Filed: 06/06/2024 09:19 Note Text: This note was created using [employer]. Subjective Kiko Godfrey is a 74 year old female. HPI Patient presents today for 2 weeks of sinus pain pressure, chest congestion, runny nose and rhinorrhea. Denies any recent fevers. She was seen here about 10 days ago and diagnosed with viral illness with a negative chest x-ray and has been using Tessalon Perles and other [id number] treatments with no relief of symptoms. She [...] MG-POTASSIUM CLAVULANATE 125 MG TABLET Lynn Braxton APRN.[facility]ED[facility] History of Present illness Narrative* Lynn Braxton APRN.JARED - 06/06/2024 9:16 AM EST This note was created using [employer]. Subjective Kiko Godfrey is a 74 year old female. HPI Patient presents today for 2 weeks of sinus pain pressure, chest congestion, runny nose and rhinorrhea. Denies any recent fevers. She was seen here about 10 days ago and diagnosed with viral illness with a negative chest x-ray and has been using Tessalon Perles and other [id number]-[id number] treatmentswith no relief of symptoms. She notes worsening [...] seems to be pain and pressure in thesinuses over the last 2 weeks and as such she was started on Augmentin. Her allergy list does show an intolerance to Augmentin but she states that she has taken in the past with no difficulties. She will follow-up with PCP to ensure resolution of symptoms. - AMOXICILLIN 875 MG-POTASSIUM CLAVULANATE 125 MG TABLET Lynn Braxton APRN.JARED documented in [facility]25 NoteHNO ID: [id number] Author: MIRA VALENCIA PA-C Service: ? Author Type: Physician Geophysical Manager Type: Progress Notes Filed: 05/26/2024 11:42 Note Text: This note was created using [employer]. Subjective Kiko Godfrey is a 74 year [...] MG TABLET - BENZONATATE 100 MG CAPSULE [facility]ATIANA [facility]02-12-2025 History of Present illness Narrative* Mira Valencia PA-C - 05/26/2024 11:38 AM EST This note was created using [employer]. Subjective Kiko Godfrey is a 74 year [...] CAPSULE Mira Valencia PA-C documented in this encounterSt. [facility] History of Present illness Narrative* Marcelo Oropeza RT(R) - 05/26/2024 10:20 AM EST Radiology Service Progress Note PATIENT [...] Assigned female at . status: : No status:NO. PATIENT RELEVANT IMPLANT DATA REVIEWED: Not Applicable PATIENT PRESENTS WITH AN IMPLANTABLE OR ATTACHED MORTGAGE BRANCH MANAGER: No RADIOLOGY DEPARTMENT: General X-ray: Exam(s) Completed: Chest X-Ray PERIPHERAL IV DATA: Not applicable SIGNED BY: RT Jesus(Fabrice) May 26, 2024 10:19 AM documented in this encounterSt. [facility]02-[facility]-2025 NoteHNO ID: [id number] Author: MARCELO OROPEZA RT(R) Service: Radiology Author [...] PATIENT PRESENTS WITH AN IMPLANTABLE OR ATTACHED MORTGAGE BRANCH MANAGER: No RADIOLOGY DEPARTMENT: General X-ray: Exam(s) Completed: Chest X-Ray PERIPHERAL IV DATA: Not applicable SIGNED BY: RT Jesus(Fabrice) May 26, 2024 10:19 [facility]12-19-2024 [facility] Medical Records Department [address] [place] [address] Discharge Summary 04/01/24 1430 MR#: [id number] Acct: [id number] Name: KIKO GODFREY Rep #: [id number] : 1950 74 From: Sheri Lamb DO PCP: Dr. Eric Lozano MD Status:ADM EMILIANO Location: [place] [address] Providers Date of Admission: 03/31/24 Primary Care Physician: [...] who presented to the emergency department at [facility] on 03/31/2024 with a chief complaint of [...] General Appearance: cooperative, co (more content not included)...[facility]12-18-2024 Evaluation note* Diagnosis Onset Date Resolution Status Admit Date COPD exacerbation resolved Priscilla lauren 2023 10:32am [facility] Work Phone: 1(285) 277-514012-16-2024 NoteHNO ID: [id number] Author: MIRA VALENCIA PA-C Service: ? Author Type: Physician Geophysical Manager Type: Progress Notes Filed: 03/29/2024 14:33 Note Text: This note was created using [employer]. Subjective Kiko Godfrey is a 74 year [...] AEROSOL INHALER - INHALATIONAL SPACING DEVICE [facility]24 NoteHNO ID: [id number] Author: MIRA VALENCIA PA-C Service: ? Author Type: Physician Geophysical Manager Type: Progress Notes Filed: 03/29/2024 14:33 Note Text: This note was created using [employer]. Subjective Kiko Godfrey is a 74 year old female. HPI Review of Systems Objective BP 132/74 Pulse 70 Temp 36.5 ?C (97.7 ?F) Resp 16 Wt 93.1 kg (205 lb 4 oz) SpO2 99% Physical Exam Assessment and PlanChildren[facility] History of Present illness Narrative* Mihaela Adams, RT(R) - 10/13/2023 9:40 AM EDT Radiology [...] PATIENT PRESENTS WITH AN IMPLANTABLE OR ATTACHED MORTGAGE BRANCH MANAGER: No RADIOLOGY DEPARTMENT: General X-ray: Exam(s) Completed: Chest X-Ray PERIPHERAL IV DATA: Not applicable SIGNED BY: RT Maximino(R) October 13, 2023 9:40 AM documented in this encounterSt. [facility] Hospital07-[facility]-2024 History of Present illness Narrative* Katharine Gee APRN.VP OF DIGITAL MARKETING - 10/13/2023 9:32 AM EDT This note was created using [employer]. Subjective Kiko Godfrey is a 73 year [...] history is provided by the patient. No interpreter deaf was used. Cough This is a new [...] or sooner if worsening of symptoms Katharine Gee APRN.VP OF DIGITAL MARKETING documented in this encounterSt. [facility] Discharge summary Author Dmitry Griggs [facility] July 31, 2023 12:04pm Note Date/Time July 31, 2023 11: 12am [facility] Medical Records Department [address] [facility] [place] [address] Instructions for Home/Discharge Instructions 07/31/23 1112 MR#: [id number] Acct: [id number] Name: KIKO GODFREY Rep #:[id number] : 1950 73 From: Dmitry Gordon arnoldo GEORGE PCP: Dr. Eric Lozano MD Status:ADM IN [...] MD; Dr. Eric Olmos MD ~ Signed [facility] Work Phone: 1(415) 125-941304-17-2024 Progress note Author [facility] July 30, 2023 4:10pm Note Date/Time July 30, 2023 2:4 5pm [facility] Medical Records Department [address] [place] [address] Progress Note - Hospitalist 07/30/23 1444 MR#: [id number] Acct: [id number] Name: KIKO GODFREY Rep #:[id number] : 1950 73 From: Dmitry virk DO PCP: Dr. Eric Lozano MD Status:ADM IN Location: [place] [address] Reason for Visit Reason for Visit: Diagnoses [...] Intake Total 1916.70 / 1916.70 2048.54 / 2047.54 112.30 / 112.30 Output Total 100 / 100 0 / 0 Balance 191.70 / 191.70 1948.54 / 8.54 112.30 / 112.30 Lab / Micro Data [...] 73 year old female who presented to [facility] on 07/28/2023 with shortness of breath on [...] weeks for possible venogram. Will transition to [facility] on evening of 07/29. Plan for O2 [...] 35 minutes. Charges/Coding Visit Charges Inpatient E&M: 94293 Subs Hosp L2 07/30/23 1610 <Electronically signed by Dmitry Griggs DO> Cosigner Signature (if applicable): CC: ~ Signed [facility] Work Phone: 1(896) 312-519504-17-2024 Consult note Author Amanuel Wheeler [facility] July 30, 2023 10:48am Note Date/Time July 30, 2023 8:1 4am [facility] Medical Records Department [address] [place] [id number] Consultation - Cinder Pit Worker 07/30/23 0812 MR#: [id number] Acct: [id number] Name: KIKO GODFREY Rep #:[id number] : 1950 73 From: Amanuel Wheeler DO PCP: Dr. Eric Lozano MD Status:ADM IN Location: [place] [address] Assessment & Plan Assessment/Plan (1) Bilateral pulmonary embolism: (2) Acute deep vein thrombosis (DVT) of left lower extremity: PLAN: Plan RECOMMENDATIONS: 1. Continue heparin infusion, with plans to transition to oral anticoagulation regimen when feasible. 2. Ambulate patient as tolerated. IMPRESSIONS: 1. Bilateral pulmonary emboli Most likely provoked by recent immobility in the setting of ankle fracture. Mos remained clinically stable on a heparin infusion. [...] medicationsas indicated. This note was generated with [employer] dictation software. It may contain incorrectwords, spelling, [...] is maintaining appropriate oxygensaturations on room air. [facility] Medical History (Updated 07/29/23 @ 17:42 by [...] Lozano MD Performed By: Garrick Lobo, RVT Abdomen/Pelvis CT 07/29/23 17:09 IMPRESSION: No acute findings in the abdomen or pelvis. Cholelithiasis. No gross filling defects in the IVC or iliac veins, overall suboptimal enhancement. Electronically Signed: Morgan Ya MD at 19:27 EDT , Charges/Coding Visit Charges Inpatient E&M: 06052 Init Hosp L3 07/30/23 1048 <Electronically signed by Amanuel Wheeler DO> Cosigner Signature (if applicable): CC: Dr. Eric Lozano MD~ Signed [facility] Work Phone: 1(205) 972-828804-17-2024 Consult note Author Eric Olmos [facility] July 30, 2023 7:37am Note Date/Time July 29, 2023 5:2 3pm [facility] Medical Records Department [address] [place] [id number] Consultation - Surgical 07/29/23 1715 MR#: [id number] Acct: [id number] Name: KIKO GODFREY Rep #:[id number] : 1950 73 From: Glenna SIMPSON PCP: Dr. Eric Lozano MD Status:ADM IN Location: [facility] [id number] Assessment & Plan Assessment/Plan (1) Bilateral pulmonary [...] with her R leg to get around. [facility] Medical History (Updated 07/29/23 @ 17:42 by [...] 74.8 H, Lymph % (Auto) 14.5 L, Lipscomb % (Auto) 9.3, Eos % (Auto) 0.2, [...] MD> CC: Dr. Eric Lozano MD~ Signed [facility] Work Phone: 1(464) 592-586604-17-2024 Progress note Author Dmitry [facility] July 29, 2023 11:21pm Note Date/Time July 29, 2023 3:5 6pm [facility] Medical Records Department [address] [place] [address] Progress Note - Hospitalist 07/29/23 1556 MR#: [id number] Acct: [id number] Name: KIKO GODFREY Rep #:[id number] : 1950 73 From: Dmitry Gordon arnoldo PCP: Dr. Eric Lozano MD Status:ADM IN Location: [place] [address] Reason for Visit Reason for Visit: Diagnoses [...] 07/28/23 07/29/23 23:59 23:59 23:59 Intake Total 7.70 / 1917.70 393.67 / 393.67 Balance 1916.70 [...] 74.8 H, Lymph % (Auto) 14.5 L, Lipscomb % (Auto) 9.3, Eos % (Auto) 0.2, [...] Eric Lozano MD Performed By: Deon Rea [facility] Venous Doppler Study 07/29/23 07:53 Interpretation Summary [...] Lozano MD Performed By: Garrick Lobo RVT Physical Exam Const alert, oriented x3 and [...] 73 year old female who presented to [facility] on 07/28/2023 with shortness of breath on [...] 35 minutes. Charges/Coding Visit Charges Inpatient E&M: 55644 Subs Hosp L2 07/29/23 2321 <Electronically signed by Dmitry Griggs DO> Cosigner Signature (if applicable): CC: ~ Signed [facility] Work Phone: 1(258) 765-891304-15-2024 History and physical note Author Sophia Wang [facility] July 28, 2023 6:19pm Note Date/Time July 28, 2023 1:4 3pm [facility] Medical Records Department [address] [place] [address] H&P Exam - Hospitalist 07/28/23 1343 MR#: [id number] Acct: [id number] Name: KIKO GODFREY Rep #:[id number] : 1950 73 From: Sophia Wang MD PCP: Dr. Eric Lozano MD Status:ADM IN Location: [place] [address] HPI - General General Date of Admission: 07/28/23 Date of Service: 07/28/23 Chief Complaint: Dyspnea, chest tightness. HPI Narrative The patient is a 73 y/o F w/ PMHx: Chart reported Hx Schizophrenia/Anxiety and Depression, Rheumatoid arthritis, HTN, COPD, GERD, Chronic anemia/Fe deficiency anemia, Hx TIA, Obesity, PSVT s/p RFA, Former tobacco use who presents to the [facility] ED on 07/28/23 with history of dyspnea, [...] x 1 and started on heparin drip. [facility] Medical History (Updated 07/28/23 @ 18:13 by [...] (Auto) 77.4 H, Lymph % (Auto) 13.0 L,Lipscomb % (Auto) 8.3, Eos % (Auto) 0.1, [...] Former tobacco use who presents to the [facility] ED on 07/28/23 with history of dyspnea, [...] 16 minutes. Charges/Coding Visit Charges Inpatient E&M: 69343 Init Hosp L3 Procedures Hospitalists Procedures: 35085 Advncd Care Plan 30 Min 07/28/23 9771 <Electronically signed by Sophia Wang MD> Cosigner Signature (if applicable): CC: Dr. Sophia Wang MD; Dr. Eric Lozano MD~ Signed [facility] Work Phone: 1(453) 554-699404-15-2024 Discharge summary Author Eric West [facility] July 28, 2023 3:51pm Note Date/Time July 28, 2023 11: 59am [facility] Medical Records Department [address] [place] [address] Emergency Department Summary 07/28/23 MR#: [id number] Acct: [id number] Name: KIKO GODFREY Rep #:[id number] : 1950 73 From: Eric Chavez PCP: Dr. Eric Lozano MD Status:ADM IN Location: [place] [address] HPI History of Present Illness Chief Complaint: [...] or PE, Recent surgery or Recent travel [facility] Medical History Cholelithiasis with chronic cholecystitis COPD [...] 77.4 H Lymph % (Auto) 13.0 L Lipscomb % (Auto) 8.3 Eos % (Auto) 0.1 [...] sinus rhythm with a rate of 79. [place] interval, QRS interval, and QTc intervals were all normal. [place] was normal. There are nonspecific ST-T wave changes. Prior EKG tracings: available for review Prior: Unchanged (06/15/2019) Management Discussion w/another healthcare provider: Hospitalist Treatment and Re-Evaluation :: Patient was given aspirin here. Patient was advised of her findings. Patient was advised of the need for hospitalization. Case was discussed with the hospitalist. Patient was started on heparin ip. Patient will be admitted to the hospital. [...] (BMI 30-39.9) Disposition Disposition: Acute Care Hospital [facility] What to do if you have Problems For any increased pain, shortness of breath, bleeding, nausea or vomiting, chestpain, or any unexpected problems, contact your Primary Care Provider. Call [facility] Registry ([phone]) or report to the closest Emergency Room. Call 911 if necessary. 07/28/23 2698 <Electronically signed by Eric West DO> Cosigner Signature (if applicable): CC: Dr. Eric Lozano MD ~ Signed [facility] Work Phone: 1(592) 459-760802-17-2024 Hospital Discharge instructions Additional Instructions Ice your ankle for 15 to 20 minutes at a time several times a day for the next few days. Follow-up with orthopedics.[facility] Work Phone: 1(560) 352-611911-14-2023 History of Present illness Narrative* Shawna Florence, RT(R) - 02/25/2023 9:40 AM EST Radiology [...] 25, 2023 11:07 AM documented in this encounterSt. [facility]10-31-2023 Instructions* Patient Instructions* Marek Chauhan - 02/11/2023 9:08 AM EDT You have fracture of right 2nd toe. Continue with post-op shoe (surgical) or firm sole sneaker Repeat xrays in 2 weeks documented in this encounterSt. [facility] Hospital10-31-2023 History of Present illness Narrative* Marek [...] Intervention/Comfort measure: Reposition;Relaxation;Medication No results found for: "HBA1C" PCP: Eric Lozano MD PAST MEDICAL HISTORY [...] proximal phalanx and compression fractureof dipj ASSESSMENT: (S92.608U) Closed nondisplaced fracture of proximal phalanx of lesser toe of right foot, initial encounter PLAN: 1. History and physical examination performed. 2. XR reviewed with patient and interpreted today 3. Discussed fracture of right 2nd toe. Continue with post-op shoe or firm sole sneaker 4. Repeat xrays in 2 weeks Marek Chauhan DPM Podiatry [address] [facility] [address] Dept: [phone] Dept * Shanti Lozano LPN - 02/11/2023 8:43 AM EDT AMB ROOMING INTAKE FLOWSHEET DATA Pain Pain Level: 6 Pain Location: Toe Description: Burning Duration Amount of Time: 3 Duration Units: Weeks Frequency: Continuous Intervention/Comfort measure: Reposition, Relaxation, Medication Patient presents with: Right Foot - New, Pain, Fracture, Swelling Shanti Lozano LPN \\ documented in this encounterSt. [facility] Hospital10-18-2023 Instructions* Patient Instructions* Ronaldo Russo APRN.CNP - 01/29/2023 1:12 PM EDT ASSESSMENT/PLAN: 1. Closed nondisplaced fracture of proximal phalanx of lesser toe of right foot, initial encounter - ICD9: 826.0, ICD10: S92.514A (primary diagnosis) Post op shoe provided Pain relief/otc Will schedule follow up with podiatry Follow up for worsening symptoms. - CONSULT TO PODIATRY documented in this encounterSt. Vincent Hospital10-18-2023 History of Present illness Narrative* Ronaldo [...] digit. Dictated by : MD Ronaldo MUSTAFA APRN.VP OF DIGITAL MARKETING documented in this encounterSt. Vincent Hospital10-18-2023 History of Present illness Narrative* Marcelo [...] 29, 2023 12:34 PM documented in this encounterSt. Vincent Hospital09-11-2023 History of Present illness Narrative* Ronaldo [...] TABLET Ronaldo Russo APRN.JARED documented in this encounterSt. [facility] Hospital06-15-2023 Miscellaneous Notes* Telephone Encounter - Homa Bhat MA - 09/26/2022 7:54 PM EDT Pt was notified of the results. Pt verbalized understanding. Homa Bhat MA * Telephone Encounter - Anny Roach APRN.CNP - 09/26/2022 6:40 PM EDT Negative for COVID and flu please notify thank you documented in this encounterSt. Vincent Hospital06-15-2023 Instructions* Patient Instructions* Faisal Mancini APRN.JARED - 09/26/2022 9:04 AM EDT How to [...] or concerning to you. documented in this encounterSt. Vincent Hospital06-15-2023 History of Present illness Narrative* Faisal [...] of care. This note was generated using [employer] software. It may contain errors in wording, punctuation, or spelling. Faisal Mancini APRN.JARED documented in this encounterSt. Vincent Hospital05-04-2023 History of Present illness Narrative* Ronaldo Russo APRN.JARED - 08/15/2022 7:13 PM EDT Images from [...] TABLET Ronaldo Russo APRN.CNP documented in this encounterSt. Vincent Hospital12-31-2022 Instructions* Patient Instructions* Ronaldo Russo APRN.CNP [...] breath go to ER documented in this encounterSt. Vincent Hospital12-31-2022 History of Present illness Narrative* Ronaldo [...] - AZITHROMYCIN 250 MG TABLET Ronaldo Russo APRN.VP OF [employer] MARKETING documented in this encounterSt. Vincent Hospital12-02-2022 Miscellaneous Notes* Telephone Encounter - Aide [...] 5 days of symptoms. documented in this encounterSt. Vincent Hospital12-01-2022 History of Present illness Narrative* Anny Roach APRN.VP OF [employer]ET[employer] - 03/14/2022 9:59 AM EST CC: Patient [...] plan. Anny Roach APRN.JARED documented in this encounterSt. Vincent Hospital06-03-2022 History of Present illness Narrative* Anny [...] plan. Anny Roach APRN.JARED documented in this encounterSt. Vincent Hospital05-27-2022 History of Present illness Narrative* Anny [...] plan. Anny Roach APRN.JARED documented in this encounterSt. Vincent Hospital02-04-2022 History of Present illness Narrative* Marcelo [...] 18, 2021 4:14 PM documented in this encounterSt. Vincent Hospital09-10-2021 History of Present illness Narrative* Shawna [...] IV DATA: Not applicable SIGNED BY: RT Tino(Fabrice) December 22, 2020 10:57 AM documented in this encounter[address] History of Past illness Narrative* Problem Noted Date Resolved Date Abnormality of gait 07/15/2007 07/15/2007 documented as of this encounter (statuses as of 09/07/2021) [address] History of Past illness Narrative* Problem Noted Date Resolved Date Abnormality of gait 07/15/2007 07/15/2007 documented as of this encounter (statuses as of 09/14/2021) [address] History of Past illness Narrative* Problem Noted Date Resolved Date Abnormality of gait 07/15/2007 07/15/2007 documented as of this encounter (statuses as of 03/14/2022) [address] History of Past illness Narrative* Problem Noted Date Resolved Date Abnormality of gait 07/15/2007 07/15/2007 documented as of this encounter (statuses as of 03/15/2022) [address] History of Past illness Narrative* Problem Noted Date Resolved Date Abnormality of gait 07/15/2007 07/15/2007 documented as of this encounter (statuses as of 04/18/2022) [address] History of Past illness Narrative* Problem Noted Date Resolved Date Abnormality of gait 07/15/2007 07/15/2007 documented as of this encounter (statuses as of 08/16/2022) [address] History of Past illness Narrative* Problem Noted Date Resolved Date Abnormality of gait 07/15/2007 07/15/2007 documented as of this encounter (statuses as of 09/26/2022) [address] History of Past illness Narrative* Problem Noted Date Resolved Date Abnormality of gait 07/15/2007 07/15/2007 documented as of this encounter (statuses as of 09/27/2022) [address] History of Past illness Narrative* Problem Noted Date Diagnosed Date Resolved Date Abnormality of gait 07/15/2007 07/15/19 08 documented as of this encounter (statuses as of 12/23/2022) [address] History of Past illness Narrative* Problem Noted Date Diagnosed Date Resolved Date Abnormality of gait 07/15/2007 07/15/19 08 documented as of this encounter (statuses as of 01/29/2023) [facility] Narrative* Problem Noted Date Diagnosed Date Resolved Date Abnormality of gait 07/15/2007 07/15/19 08 documented as of this encounter (statuses as of 02/11/2023) [facility] Narrative* Problem Noted Date Diagnosed Date Resolved Date Abnormality of gait 07/15/2007 07/15/19 08 documented as of this encounter (statuses as of 02/26/2023) [facility] HospitalConsult note Author Elise Eisenberg [facility] July 31, 2023 2:37pm Note Date/Time July 31, 2023 2:3 7pm [facility] Medical Records Department [address] [place] [address] Counseling Note - Pharmacy 07/31/23 1437 MR#: [id number] Acct: [id number] Name: KIKO GODFREY Rep #:[id number] : 1950 73 From: Elise Eisenberg PCP: Dr. Eric Lozano MD Status:ADM IN Y Location: [place] [id number] has performed discharge medication reconciliation [...] Signature (if applicable): Date CC: ~ Signed [facility] Work Phone: Discharge summary Author Gladis [facility] Note Date/Time June 28, 2024 12: 38pm [facility] Medical Records Department [address] [place] [address] Emergency Department Summary 06/28/24 MR#: [id number] Acct: [id number] Name: KIKO GODFREY Rep #:[id number] : 1950 74 From: Gladis Chavez PCP: Dr. Eric Lozano MD Status:[facility] ER Location: ED HPI History [...] complaints or concerns reported at this time. [facility] Medical History Anxiety and depression Schizophrenia Rheumatoid [...] 70.5 H Lymph % (Auto) 18.4 L Lipscomb % (Auto) 9.0 Eos % (Auto) 0.7 [...] 2. Additional description as above. Reading Location: [facility] Rhythm Strip Rhythm Strip: Sinus Rhythm Rate: [...] for cough or chest tightness Print Language: Danish What to do if you have Problems For any increased pain, shortness of breath, bleeding, nausea or vomiting, chestpain, or any unexpected problems, contact your Primary Care Provider. Call [facility] ([phone]) or report to the closest Emergency Room. Call 911 if necessary. 06/28/24 1238 <Electronically signed by Gladis Moralez DO> Cosigner Signature (if applicable): CC: Dr. Eric Lozano MD ~ Signed [facility] Work Phone: Evaluation noteNo assessment information available [facility] Work Phone: Evaluation note* Diagnosis Cough- Primary [facility] Diagnosis Cough- Primary [facility]* Diagnosis Onset Date Resolution Status Essential hypertension chron ic Paroxysmal supraventricular tachycardia chronic [facility] Work Phone: Evaluation note* Diagnosis URI, acute- Primary Acute upper respiratory infections of unspecified site [facility]* Diagnosis Sinobronchitis- Primary Unspecified sinusitis (chronic) [facility] Diagnosis Pain in salivary gland region- Primary [facility]* Diagnosis Acute cough- Primary Viral illness Unspecified viral infection, in conditions classified elsewhere and of unspecified site Suspected COVID-19 virus infection [facility]* Diagnosis Lower resp. tract infection- Primary Other diseases of respiratory system, not elsewhere classified [facility] this [facility]* Diagnosis Closed nondisplaced fracture of proximal phalanx of lesser toe of right foot, initial encounter- Primary Toe injury, right, initial encounter [facility]* Diagnosis Closed nondisplaced fracture of proximal phalanx of lesser toe of right foot, initial encounter [facility]* Diagnosis Closed nondisplaced fracture of proximal phalanx of lesser toe of right foot, initial encounter [facility]* Diagnosis Onset Date Resolution Status Bilateral pulmonary embolism acute Elevated troponin acute Obesity (BMI 30-39.9) chroni c [facility] Work Phone: Evaluation note* Diagnosis Onset Date Resolution Status Acute deep vein thrombosis ( DVT) of left lower extremity acute Bilateral pulmonary embolism acute Elevated troponin acute Obesity (BMI 30-39.9) chroni c [facility] Work Phone: Evaluation note* Diagnosis Onset Date Resolution Status Acute deep vein thrombosis ( DVT) of left lower extremity acute Bilateral pulmonary embolism acute Elevated troponin resolved Acute deep vein thrombosis ( DVT) of left lower extremity acute Bilateral pulmonary embolism acute [facility] Work Phone: Evaluation note* Diagnosis Acute cough- Primary URI, acute Acute upper respiratory infections of unspecified site Acute cough [facility]* Diagnosis Acute cough [facility]* Diagnosis Acute cough [facility]* Diagnosis Toe injury, left, initial encounter [facility]* Diagnosis URI, acute Acute upper respiratory infections of unspecified site [facility]* Diagnosis Acute cough- Primary Viral bronchitis Acute bronchitis [facility]* Diagnosis Bacterial sinusitis- Primary Unspecified sinusitis (chronic) [facility]* Diagnosis Onset Date Resolution Status Admit Date Right ventricular dilation, secondary acute January 04, 2025 9:18am Essential hypertension chronic Se pt2024 9:18am Paroxysmal supraventricular tachycardia chronic January 04, 2025 9:18am [facility] Work Phone: Hospital Discharge instructions Additional Instructions Your lab work [...] hours as [facility] for [facility] or [facility] Work [facility]: Progress note Author Beatrice Sifuentes [facility] Note Date/Time January 04, 2025 9:46am [facility] [address] [place] [address] OFFICE VISIT Date of Service: 01/04/25 MR#: [id number] Acct: [id number] Name: KIKO GODFREY Rep #: [id number] : 1950 Provider: TATIANA Araujo Age/Sex: 74/F [place] [facility] Status: Signed HPI HPI History of Present Illness Details: KIKO GODFREY, is a 74 F who presents to the office today for a cardiovascular outpatient follow-up. She has a history of mitral valve prolapse, supraventricular tachycardia- status post radiofrequency ablation in 2002, and hypertension. She had a bilateral PE in July of 2023, and was placed on Eliquis 5mg twice daily. PE was from a broken leg. From a cardiac standpoint, patient is doing well. She does not have any chest discomfort/heaviness/tightness. She does not have any worsening symptoms of shortness of breath. She does not have any orthopnea. She denies PND. She does not have any symptoms of congestive heart failure. She does not have any palpitations that she is aware of. She does not have any lightheadedness or dizziness. She does not have any near-syncope or syncope. She does not have any lower extremity edema. She does not have any symptoms of claudication. 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 by: Self Is patient in pain?: No Allergies doxycycline Adverse Reaction (Verified 01/04/25 09:27) PT UNSURE OF REACTION Medications ?Medication ?Instructions ?Recorded ?Confirmed ?Type hydroxychloroquine 200 mg tablet 200 mg PO BIDCM 09/1801/04/25 History pantoprazole 40 mg tablet,delayed 40 mg PO DAILY 02/2601/04/25 History release famotidine 20 mg tablet 20 mg PO BID 11/08/21 History blood pressure monitor #1 ea 11/08/22 01/28/24 Rx leucovorin calcium 15 mg tablet 15 mg PO QWEEK counter act the 11/08/22 01/04/25 History methotrexate prednisone 2.5 mg tablet 2.5 mg PO DAILY 11/08/22 History Held on 04/01/24. Instructions: Restart once your prednisone taper is completed sulfasalazine 500 mg 1,000 mg PO BID 07/28/23 History tablet,delayed release tramadol 50 mg tablet 50 - 100 mg PO Q6H PRN PRN p ain 07/28/23 01/04/25 History mecobalamin (vitamin B12) 5,000 3,000 mcg PO QDAY 12/1401/04/25 History mcg chewable tablet prednisone 10 mg tablet 10 mg PO DAILY #30 tabs 03/1401/04/25 Rx metoprolol tartrate 50 mg tablet See Rx Instructions . Route 05/14/24 01/04/25 Rx .COMPLEX #180 tabs methotrexate sodium 25 mg/mL 7.5 mg subcut QWEEK arthr itis 01/04/25 01/04/25 History injection solution Have you fallen in the past year?: No PFSH Medical History Anxiety and depression Schizophrenia [...] not use ROS Const Const: Negative for fatigue or weakness ENT ENT: Positive for dizziness (positional); Negative for balance problems Cardio Chest Pain: No Palpitations: No Edema: None Muscle aches with walking: None Resp Respiratory: Negative for SOB with activity, SOB at rest or SOB orthopnea\\SOB lying down GI GI: Positive for heartburn; Negative nausea or vomiting Musc Musc: Negative for muscle weakness or balance problems Neuro Neuro: Positive for dizziness (positional); Negative for lightheadedness, near syncope, syncope or weakness Endo Endo: Negative for fatigue Cardiology Exam Const Appearance: cooperative and no acute distress Nutritional Appearance: average body habitus and obese Orientation: alert and oriented x3 Head Head: normal to inspection Ears: hearing grossly normal bilaterally Nose: external nose normal Face and Sinus: face symmetric Eyes General: appearance normal, both eyes and all related structures Eyelids: eyelids normal Conjunctivae: conjunctivae normal Pupils: PERRL and pupil size EOM: EOM intact bilaterally Neck Neck: normal visual inspection Carotids: Negative bruit Chest Chest inspection: normal inspection of the chest and normal respiratory effort Auscultation: Bilateral: Clear to Auscultation Cardio Palpation: normal PMI Rate: regular rate Rhythm: regular rhythm Heart sounds: S1 normal and S2 normal; Negative rub, gallop or murmur GI GI: normal to inspection, soft and obese Neuro General: patient alert, patient oriented x3 and CN's II-XI intact bilaterally Skin Skin: no rashes or lesions noted Extremities Pulses: Normal: Right Posterior Tibial Pulse, Left Posterior Tibial Pulse, RightRadial Pulse and Left Radial Pulse Lower Extremity Edema: None: Bilateral Psych Psychological: normal affect Supplemental Info Supplemental Information Echocardiogram 07/28/2023: Interpretation Summary Normal LV size. Left ventricular systolic function is normal. D shaped septum in systole and diastole. The left ventricular ejection fraction is 55 %. Moderately dilated right ventricle. Stage 1 diastolic dysfunction. Pulmonary artery systolic pressure is 44 mmHg. Contrast injection was performed. Echocardiogram 11/27/2021: Interpretation Summary Normal LV size. Left ventricular systolic function is normal. The estimated ejection fraction is 60 %. Bubble contrast study negative for right to left interatrial shunt. Stage 3 diastolic dysfunction. ECHOCARDIOGRAM 11/14/2016 Interpretation Summary Normal LV size. Left ventricular systolic function is normal. The estimated ejection fraction is 55 %. Structurally normal valves. ECHOCARDIOGRAM 09/18/2013 Interpretation Summary Left ventricular systolic function is normal. The estimated ejection fraction is 60 %. The left atrium is mildly enlarged. Mild (1+) mitral valve insufficiency. Trivial tricuspid valve insufficiency. Trivial pulmonic valve insufficiency. Right ventricular systolic pressure estimated to be 26 mmHg. Bubble contrast study negative for right to left interatrial shunt. No obvious intracardiac mass lesion / thrombus identified. Labs: LDL Cholesterol, (0-130) 85 mg/dL HDL Cholesterol, (40-) 57 mg/dL Cholesterol, (200) 161 mg/dL Triglycerides, (-199) 94 mg/dL Diagnostics: Electrocardiogram Echocardiogram Chest X-Ray Chest CTA Abdomen Ultrasound Abdomen/Pelvis CT Venous Doppler Study Past Visits: Cardiology Visit Today Assessment and Plan Assessment and Plan (1) Essential hypertension: Status: Chronic Plan: Patient has a history of hypertension. Blood pressure is controlled on her current dose of metoprolol. Will not make any adjustments. (2) Paroxysmal supraventricular tachycardia: Status: Chronic Comment: RFA 03/2003 Plan: Patient has a history of paroxysmal supraventricular tachycardia, status post RFA in 2002. She denies any recent symptoms or events. She will continue with her current medical therapy, along with monitoring for any concerning symptoms. (3) Right ventricular dilation, secondary: Status: Acute Plan: With her right ventricular dilatation would like to repeat an echocardiogram to evaluate further findings. Orders: Orders Echo Complete Today I51.7 - Cardiomegaly Plan Details Additional Comments: Patient will follow-up in 12 months, or sooner if needed. Thank you for allowing me to participate in the care of your patient. Please don't hesitate to call if any issues arise. This note was generated using a voice recognition system and there may be incorrect words, spelling, or punctuation that were not noted when reviewing theoffice note prior to saving. Portions of this documentation were copied and pasted from previous office visitnotes to provide a cohesive continuity of the history. The note has been reviewed, edited, and updated, as necessary. Follow Up: 1 Year (HIM CLERK) Coding Level of Care Code Off vis,est,level 4 Diagnoses Essential hypertension I10 Paroxysmal supraventricular tachycardia I47.1 Right ventricular dilation, secondary I51.7 Coding Level of Care Code Off vis,est,level 4 Diagnoses Essential hypertension I10 Paroxysmal supraventricular tachycardia I47.1 Right ventricular dilation, secondary I51.7 Clinical Quality Measures Falls Risk Screening/Assistive Devices Have you fallen in the past year?: No 01/04/25 0952 <Electronically signed by Beatrice Nelson> Date _ Beatrice SIMPSON Cosigner Signature: Date (if applicable) CC: Dr. Eric Lozano MD ~ [employer] Work Phone: [facility] [employer] for referral (narrative)* Diagnostic Procedure Only (Routine) - Pending Review Specialty Diagnoses / Procedures Referred By Contac t Referred To Contact XR IMAGING Diagnoses Closed nondisplaced fracture of proximal phalanx of lesser toe of right foot, initial encounter Procedures XR TOE AP/LAT/OBL RIGHT RADEX TOE MINIMUM 2 VIEWS Marek Chauhan [address] [place] [address] [place] [address] Referral ID Status Reason Start Date Expiration Date Visits Requested Visits Authorized [id number] Pending Review Auto-Generat ed Referral 3 03/12/2024 1 1 [facility] for referral (narrative)* Diagnostic Procedure Only (Urgent) - Closed Specialty Diagnoses / Procedures Referred By Contac t Referred To Contact XR IMAGING Diagnoses Toe injury, left, initial encounter Procedures XR TOE AP/LAT/OBL LEFT RADEX TOE MINIMUM 2 VIEWS Vianey Chamberlain APRN.[employer] [address] [place] [address] [place] [address] Referral ID Status Reason Start Date Expiration Date V isits Requested Visits Authorized [id number] Closed Auto-Generate d Referral 05/18/2021 06/17/2022 1 1 [facility] for referral (narrative)No reason for referral [facility] Work Phone: Reason for visit Narrative* Diagnostic Procedure Only (Routine) - Closed Specialty Diagnoses / Procedures Referred By Contac t Referred To Contact XR IMAGING Diagnoses Closed nondisplaced fracture of proximal phalanx of lesser toe of right foot, initial encounter Procedures XR TOE AP/LAT/OBL RIGHT RADEX TOE MINIMUM 2 VIEWS Marek Chauhan [address] [place] [address] [place] [address] Referral ID Status Reason Start Date Expiration Date V isits Requested Visits Authorized [id number] Closed Auto-Generate d Referral 02/11/2023 03/12/2024 1 1 [facility] for visit Narrative* Diagnostic Procedure Only (Urgent) - Closed Specialty Diagnoses / Procedures Referred By Contac t Referred To Contact XR IMAGING Diagnoses Toe injury, right, initial encounter Procedures XR TOE AP/LAT/OBL RIGHT RADEX TOE MINIMUM 2 VIEWS Ronaldo Russo APRN.[employer] [address] [place] [address] [place] [address] Referral ID Status Reason Start Date Expiration Date V isits Requested Visits Authorized [id number] Closed Auto-Generate d Referral 01/29/2023 02/28/2024 1 1 [facility] for visit Narrative* Diagnostic Procedure Only (Urgent) - Closed Specialty Diagnoses / Procedures Referred By Contac t Referred To Contact XR IMAGING Diagnoses Toe injury, left, initial encounter Procedures XR TOE AP/LAT/OBL LEFT RADEX TOE MINIMUM 2 VIEWS Vianey Chamberlain APRN.[employer] [address] [place] [address] [place] [address] Referral ID Status Reason Start Date Expiration Date V isits Requested Visits Authorized [id number] Closed Auto-Generate d Referral 05/18/2021 06/17/[address] [facility] Advance Directives No Advanced Directives Records Found Advance Directive Response Recorded Date/ Time Advance Directives No September 18 4 4:04pm Living Will No July 30, 2020 12:06pm Power of Jewelry Designer No July 30 12:06pm Advance Directive Response Recorded Date/ Time Advance Directives No September 18 3:04pm Living Will No July 30, 2020 11:06am Power of Jewelry Designer No July 30 11:06am Advance Directive Response Recorded Date/ Time Advance Directives No September 18 3:04pm Living Will No May 31 2:54pm Power of Jewelry Designer No May 31, 2023 2:54pm Advance Directive Response Recorded Date/ Time Advance Directives No September 18 4:04pm Living Will No July 28, 2023 11:36am Power of Jewelry Designer No July 27 11:36am Advance Directive Response Recorded Date/ Time Advance Directives No September 18 4:04pm Living Will No July 28, 2023 3:29pm Power of Jewelry Designer No July 27 3:29pm Advance Directive Response Recorded Date/ Time Advance Directives No June 22 8:29am Living Will No March 31 12:17pm Power of Jewelry Designer No March 31, 2024 12:17pm Living Will Yes June 28, 2024 9:25am Power of Jewelry Designer Yes June 28 9:25am Name of Medical Power of Jewelry Designer ? June 28, 2024 9:25am Advance Directive Response Recorded Date/ Time Advance Directives No June 22 8:29am Living Will No March 31 12:17pm Do you have a Healthcare Power of Jewelry Designer? No March 31, 2024 12:17pm Living Will Yes June 28, 2024 9:25am Do you have a Healthcare Power of Jewelry Designer? Yes June 28, 2024 9:25am Name of Medical Power of Jewelry Designer ? June 28, 2024 9:25am Advance Directive Response Recorded Date/ Time Advance Directives No June 22 8:29am Living Will Yes June 28, 2024 9:25am Do you have a Healthcare Power of Jewelry Designer? Yes June 28, 2024 9:25am Name of Medical Power of Jewelry Designer ? June 28, 2024 9:25am Advance Directive Response Recorded Date/ Time Living Will Yes June 28, 2024 9:25am Do you have a Healthcare Power of Jewelry Designer? Yes June 28, 2024 9:25am Name of Medical Power of Jewelry Designer ? June 28, 2024 9:25am Advance Directives No June 22 8:29am Advance Directive Response Recorded Date/ Time Living Will No September 06, 2023 9 :42am Do you have a Healthcare Power of Jewelry Designer? No September 06, 2023 9:42am Advance Directives No June 22 8:29am Chief Complaint and Reason for Visit Chief [...] Date COPD exacerbation March 31, 2024 10:32am Chief Complaint Admit Date XRAY June 22, 2024 8:2 9am FLU A June 28, 2024 9:0 5am S/O- PAIN- COPY PCP October 12, 2024 12:57 pm Chief Complaint Admit Date FLU A June 28, 2024 9:0 5am S/O- PAIN- COPY PCP October 12, 2024 12:57 pm PAIN- COPY PCP October 19, 2024 11:05 am Chief Complaint Admit Date S/O- PAIN- COPY PCP October 12, 2024 12:57 pm PAIN- COPY PCP October 19, 2024 11:05 am SCREENING December 23, 2024 11:44am 1 Y FU January 04, 2025 9:18am Reason for Visit Admit Date Right ventricular dilation, secondary Se ptember 2024 9:18am Essential hypertension January 04, 025 9:18am Paroxysmal supraventricular tachycardia January 04, 2025 9:18am Health Concerns Infection Onset Date Last Indicated [...] initial encounter Procedures CONSULT TO PODIATRY OFFICE/OUTPATIENT [facility] 60-74 MINUTES Ronaldo Russo APRN.[employer] [address] [place] [address] Referral ID Status Reason Start Date Expiration Date Visits Requested Visits Authorized [id number] Authorized PCP Requested Referral 3 01/29/2024 1 1 Specialty Diagnoses / Procedures Referred By Quentin t Referred To Contact XR IMAGING Diagnoses Toe injury, right, initial encounter Procedures XR TOE AP/LAT/OBL RIGHT RADEX TOE MINIMUM 2 VIEWS Ronaldo Russo APRN.[employer] [address] [place] [address] [place] [address] Referral ID Status Reason Start Date Expiration Date V isits Requested Visits Authorized [id number] Closed Auto-Generate d Referral 01/29/2023 02/28/2024 1 [...] or prosecute any alcohol or drug abuse patient.[facility] the event this information is protected by the Federal Confidentiality of Alcohol and Drug Abuse Patient Records regulations: The Federal rules restrict any use of the information to criminally investigate or prosecute any alcohol or drug abuse patient.[facility] the event this information is protected by the Federal Confidentiality of Alcohol and Drug Abuse Patient Records regulations: The Federal rules restrict any use of the information to criminally investigate or prosecute any alcohol or drug abuse patient.[facility] the event this information is protected by the Federal Confidentiality of Alcohol and Drug Abuse Patient Records regulations: The Federal rules restrict any use of the information to criminally investigate or prosecute any alcohol or drug abuse patient.[facility] the event this information is protected by the Federal Confidentiality of Alcohol and Drug Abuse Patient Records regulations: The Federal rules restrict any use of the information to criminally investigate or prosecute any alcohol or drug abuse patient.[facility] the event this information is protected by the Federal Confidentiality of Alcohol and Drug Abuse Patient Records regulations: The Federal rules restrict any use of the information to criminally investigate or prosecute any alcohol or drug abuse patient.[facility] the event this information is protected by the Federal Confidentiality of Alcohol and Drug Abuse Patient Records regulations: The Federal rules restrict any use of the information to criminally investigate or prosecute any alcohol or drug abuse patient.[facility] the event this information is protected by the Federal Confidentiality of Alcohol and Drug Abuse Patient Records regulations: The Federal rules restrict any use of the information to criminally investigate or prosecute any alcohol or drug abuse patient.[facility] the event this information is protected by the Federal Confidentiality of Alcohol and Drug Abuse Patient Records regulations: The Federal rules restrict any use of the information to criminally investigate or prosecute any alcohol or drug abuse patient.[facility] the event this information is protected by the Federal Confidentiality of Alcohol and Drug Abuse Patient Records regulations: The Federal rules restrict any use of the information to criminally investigate or prosecute any alcohol or drug abuse patient.[facility] the event this information is protected by the Federal Confidentiality of Alcohol and Drug Abuse Patient Records regulations: The Federal rules restrict any use of the information to criminally investigate or prosecute any alcohol or drug abuse patient.[facility] the event this information is protected by the Federal Confidentiality of Alcohol and Drug Abuse Patient Records regulations: The Federal rules restrict any use of the information to criminally investigate or prosecute any alcohol or drug abuse patient.[facility] the event this information is protected by the Federal Confidentiality of Alcohol and Drug Abuse Patient Records regulations: The Federal rules restrict any use of the information to criminally investigate or prosecute any alcohol or drug abuse patient.[facility] the event this information is protected by the Federal Confidentiality of Alcohol and Drug Abuse Patient Records regulations: The Federal rules restrict any use of the information to criminally investigate or prosecute any alcohol or drug abuse patient.[facility] the event this information is protected by the Federal Confidentiality of Alcohol and Drug Abuse Patient Records regulations: The Federal rules restrict any use of the information to criminally investigate or prosecute any alcohol or drug abuse patient.[facility] the event this information is protected by the Federal Confidentiality of Alcohol and Drug Abuse Patient Records regulations: The Federal rules restrict any use of the information to criminally investigate or prosecute any alcohol or drug abuse patient.[facility] the event this information is protected by the Federal Confidentiality of Alcohol and Drug Abuse Patient Records regulations: The Federal rules restrict any use of the information to criminally investigate or prosecute any alcohol or drug abuse patient.[facility]In the event this information is protected by the Federal Confidentiality of Alcohol and Drug Abuse Patient Records regulations: The Federal rules restrict any use of the information to criminally investigate or prosecute any alcohol or drug abuse patient.[facility] the event this information is protected by the Federal Confidentiality of Alcohol and Drug Abuse Patient Records regulations: The Federal rules restrict any use of the information to criminally investigate or prosecute any alcohol or drug abuse patient.[facility] the event this information is protected by the Federal Confidentiality of Alcohol and Drug Abuse Patient Records regulations: The Federal rules restrict any use of the information to criminally investigate or prosecute any alcohol or drug abuse patient.[facility] the event this information is protected by the Federal Confidentiality of Alcohol and Drug Abuse Patient Records regulations: The Federal rules restrict any use of the information to criminally investigate or prosecute any alcohol or drug abuse patient.[facility] Reason for Visit (unrecogniz ed section [...] initial encounter Procedures CONSULT TO PODIATRY OFFICE/OUTPATIENT [facility] HIGH MDM 60-74 MINUTES Ronaldo Russo APRN.[employer] [address] [place] [address] Referral ID Status Reason Start Date Expiration Date V isits Requested Visits Authorized [id number] Closed PCP Requested Referral 01/29/2023 01/29/2024 1 1 Reason Comments Chest Congestion cough x 3 days Reason Comments Chest Congestion SMALLS, cough, lungs fee l like they are on fire x 2 days Reason Comments Sinus Problem Chest congestion, co ugh, green mucus, SMALLS x 2 weeks Care Teams (unrecognized sec tion and content) [employer] Back Tender Relationship Specialty Start Date End Date Eric Lozano MD [address] [place] [address] PCP - General Family Practice 12/22/20 Drying Machine Back Tender Relationship Specialty Start Date End Date Eric Lozano MD [address] [facility] [place] [address] PCP - General Family Practice 12/22/20 Drying Machine Back Tender Relationship Specialty Start Date End Date Eric Lozano MD [address] [facility] [place] [address] PCP - General Family Medicine 12/22/20 Drying Machine Back Tender Relationship Specialty Start Date End Date Eric Lozano MD [address] [place] [address] [place] [address] PCP - General Family Medicine 12/22/20 Drying Machine Back Tender Relationship Specialty Start Date End Date Eric Lozano MD [address] [facility] [place] [address] PCP - General Family Medicine 12/22/20 Team Status: Active Member Role Status Dates Dr. Eric Lozaon MD Family Provider Active Dr. Eric Lozano [...] MD Primary Care Provider Active Yudy Angel [employer] Attending Provider Active Drying Machine Back Tender Relationship Specialty Start Date End Date Eric Lozano MD [address] [facility] [place] [address] PCP - General Family Medicine 12/22/20 Drying Machine Back Tender Relationship Specialty Start Date End Date Eric Lozano MD [address] [place] [address] [place] [address] PCP - General Family Medicine 12/22/20 Drying Machine Back Tender Relationship Specialty Start Date End Date Eric Lozano MD [address] [place] [address] [place] [address] PCP - General Family Medicine 12/22/20 Team Status: Inactive Member Role Status Dates Dr. Eric Lozano MD Primary Care Provider, Attending P rovider Active Dr. Sheeba Velasco MD Other Provider Active Team Status: Inactive Member Role Status Dates Dr. Eric Lozano MD Primary Care Provider, Referring P rovider Active Jennifer Angulo [employer] Attending Provider Active Team Status: Inactive Member Role Status Dates Dr. Eric Lozano MD Primary Care Provider Active Yudy Angel [employer] Attending Provider, Referring Pro vider Active [employer] Back Tender Relationship Specialty Start Date End Date Eric Lozano MD [address] [place], [place] [address] PCP - General Family Medicine 12/22/20 Drying Machine Back Tender Relationship Specialty Start Date End Date Eric Lozano MD [address] [place], [place] [address] PCP - General Family Medicine 12/22/20 Drying Machine Back Tender Relationship Specialty Start Date End Date Eric Lozano MD [address] [place] [address] PCP - General Family Medicine 12/22/20 Drying Machine Back Tender Relationship Specialty Start Date End Date Eric Lozano MD [address] [place] [address] PCP - General Family Medicine 12/22/20 Team Status: Inactive Member Role Status Dates Dr. Eric Lozano MD Primary Care Provider Active Dr. Yazan Brito DO Emergency Provider Active Team Status: Inactive Member Role Status Dates Dr. Eric Lozano MD Primary Care Provider Active Joseluis SIMPSON, PA-C Attending Provider, Referring Pr ovider Active Team Status: Inactive Member Role Status Dates Dr. Eric Lozano MD Primary Care Provider Active Dr. Yazan Brito DO Attending Provider, Emergency P rovider Active Team Status: Active Member Role Status [...] Active Dr. Dmitry Griggs , DO Attending Provider, Other Provider Active Dr. Eric Olmos MD Other Provider Active Dr. Giovani Mesa MD Other Provider Active Dr. Donell Ray MD Other Provider Active Dr. Amanuel Wheeler , Other Provider Active Dr. Cleveland Barr MD [...] Attending Provider Active Dr. Dmitry Griggs , Referring Provider Active Team Status: Active Member Role Status Dates Dr. Eric Lozano MD Primary Care Provider Active Dr. Eric West DO Emergency Provider Active Dr. Sophia Wang MD Admit Provider, Other Provider Active Dr. Dmitry Griggs , Referring Provider, Other Provider Active Dr. Eric Olmos MD Other Provider Active Dr. Giovani Mesa MD Other Provider Active Dr. Donell Ray MD Other Provider Active Dr. Amanuel Wheeler , Attending Provider, Other Provide r Active Dr. [...] Provider, Other Provider Active Dr. Dmitry Griggs DO Attending Provider, Other Provider Active Dr. Eric [...] Saab Attending Provider, Referring Provid er Active [employer] T[employer] Relationship Specialty Start Date End Date Eric Lozano MD [address] [facility] [place] [address] PCP - General Family Medicine 12/22/20 [employer] Relationship Specialty Start Date End Date Eric Lozano MD [address] [facility] [place] [address] PCP - General Family Medicine 12/22/20 [employer] Relationship Specialty Start Date End Date Eric Lozano MD [address] [facility] [place] [address] PCP - General Family Medicine 12/22/20 [employer] T[employer] Relationship Specialty Start Date End Date Eric Lozano MD [address] [facility] [place] [address] PCP - General Family Medicine 12/22/20 [employer] Relationship Specialty Start Date End Date Eric Lozano MD [address] [facility] [place] [address] PCP - General Family Medicine 12/22/20 [employer] T[employer] Relationship Specialty Start Date End Date Eric Lozano MD [address] [place] [address] PCP - General Family Medicine 12/22/20 [employer] Relationship Specialty Start Date End Date Eric Lozano MD [address] [place], [place] [id number] PCP - General Family Medicine 12/22/20 [employer] Relationship Specialty Start Date End Date Eric Lozano MD [address] [place], [place] [id number] PCP - General Family Medicine 12/22/20 [employer] Relationship Specialty Start Date End Date Eric Lozano MD [address] [place], [place] [address] PCP - General Family Medicine 12/22/20 Team Status: Active Member Role Status Dates Dr. Eric Lozano MD Primary Care Provider Active Team Status: Inactive Member Role Status Dates Dr. Eric Lozano MD Primary Care Provider Active Start: March 31, 2024 End: March 31, 2024 Yudy Angel [employer] Attending Provider Active S tart: March 31, 2024 End: March 31, 2024 Yudy Angel [employer] Referring Provider Active S tart: March 31, [...] July 21, 2024 End: July 21, 2024 Team Status: Active Member Role/Relationship Status Dates Dr. Eric Lozano MD Primary Care Provider Active Team Status: Inactive Member Role/Relationship Status Dates Dr. Eric Lozano MD Primary Care Provider Active Start: June 22, 2024 End: June 22, 2024 Dr. Mario Taveras MD Attending Provider Active S tart: June 22, 2024 End: June 22, 2024 Team Status: Inactive Member Role/Relationship Status Dates Dr. Eric Lozano MD Primary Care Provider Active Start: June 28, 2024 End: June 28, 2024 Dr. Gladis Moralez DO Attending Provider Active Start: June 28, 2024 End: June 28, 2024 Dr. Gladis Moralez DO Emergency Provider Active Start: June 28, 2024 End: June 28, 2024 Team Status: Inactive Member Role/Relationship Status Dates Dr. Eric Lzoano MD Primary Care Provider Active Start: July 21, 2024 End: July 21, 2024 Dr. Sheeba Velasco MD Attending Provider Active Start: July 21, 2024 End: July 21, 2024 Dr. Sheeba Velasco MD Referring Provider Active Start: July 21, 2024 End: July 21, 2024 Team Status: Inactive Member Role/Relationship Status Dates Dr. Eric Lozano MD Primary Care Provider Active Start: October 12, 2024 End: October 12, 2024 Dr. Sheeba Velasco MD Attending Provider Active Start: October 12, 2024 End: October 12, 2024 Dr. Sheeba Velasco MD Referring Provider Active Start: October 12, 2024 End: October 12, 2024 Team Status: Inactive Member Role/Relationship Status Dates Dr. Eric Lozano MD Primary Care Provider Active Start: June 28, 2024 End: June 28, 2024 Dr. Gladis Moralez DO Attending Provider Active Start: June 28, 2024 End: June 28, 2024 Dr. Gladis Moralez DO Emergency Provider Active Start: June 28, 2024 End: June 28, 2024 Team Status: Inactive Member Role/Relationship Status Dates Dr. Eric Lozano MD Primary Care Provider Active Start: July 21, 2024 End: July 21, 2024 Dr. Sheeba Velasco MD Attending Provider Active Start: July 21, 2024 End: July 21, 2024 Dr. Sheeba Velasco MD Referring Provider Active Start: July 21, 2024 End: July 21, 2024 Team Status: Inactive Member Role/Relationship Status Dates Dr. Eric Lozano MD Primary Care Provider Active Start: October 12, 2024 End: October 12, 2024 Dr. Sheeba Velasco MD Attending Provider Active Start: October 12, 2024 End: October 12, 2024 Dr. Sheeba Velasco MD Referring Provider Active Start: October 12, 2024 End: October 12, 2024 Team Status: Inactive Member Role/Relationship Status Dates Dr. Eric Lozano MD Primary Care Provider Active Start: October 19, 2024 End: October 19, 2024 Dr. Sheeba Velasco MD Attending Provider Active Start: October 19, 2024 End: October 19, 2024 Dr. Sheeba Velasco MD Referring Provider Active Start: October 19, 2024 End: October 19, 2024 Team Status: Active Member Role/Relationship Status Dates Dr. Eric Lozano MD Primary care physician Active Team Status: Inactive Member Role/Relationship Status Dates Dr. Eric Lozano MD Primary care physician Active Start: October 12, 2024 End: October 12, 2024 Dr. Sheeba Velasco MD Attending physician Active Start: October 12, 2024 End: October 12, 2024 Dr. Sheeba Velasco MD Referring Provider Active Start: October 12, 2024 End: October 12, 2024 Team Status: Inactive Member Role/Relationship Status Dates Dr. Eric Lozano MD Primary care physician Active Start: October 19, 2024 End: October 19, 2024 Dr. Sheeba Velasco MD Attending physician Active Start: October 19, 2024 End: October 19, 2024 Dr. Sheeba Velasco MD Referring Provider Active Start: October 19, 2024 End: October 19, 2024 Team Status: Inactive Member Role/Relationship Status Dates Dr. Eric Lozano MD Primary care physician Active Start: December 23, 2024 End: December 23, 2024 Dr. Eric Lozano MD Attending physician Active S tart: December 23, 2024 End: December 23, 2024 Dr. Eric Lozano MD Referring Provider Active St art: December 23, 2024 End: December 23, 2024 Team Status: Inactive Member Role/Relationship Status Dates Dr. Eric Lozano MD Primary care physician Active Start: January 04, 2025 End: January 04, 2025 Dr. Eric Lozano MD Referring Provider Active St art: January 04, 2025 End: January 04, 2025 Beatrice SIMPSON, PA Attending physician Active Start: January 04, 2025 End: January 04, 2025 Team Status: Active Member Role/Relationship Status Dates Dr. Eric Lozano MD Primary care physician Active Start: January 04, 2025 Dr. Sheeba Velasco MD Attending physician Active Start: January 04, 2025 Dr. Sheeba Velasco MD Referring Provider Active Start: January 04, 2025 INFORMATION SOURCE (unrecogn ized section and content) DATE CREATED AUTHOR 01/15/2025 [facility] DATE CREATED AUTHOR AUTHOR'S ORGANIZ ATION 02/22/2025 [facility] [place] FOR RECORDS PERTAINING TO PATIENTS WHO ARE [...] BE BASED ON THE PRIMARY CLINICAL RECORDS. [employer] provides no warranty or guarantee of the accuracy or completeness of information in this document.
--- NOTE | 2025-03-07 18:49 | STRESSREP ---
Stress Test Report Pharmacologic myocardial perfusion stress test. 75-year-old lady with a history of A-fib. Resting EKG demonstrates atrial fibrillation with a rate of 69 bpm. Resting blood pressure is 118/78 mmHg. 0.4 mg of regadenoson was infused per usual protocol followed by rapid intravenous saline flush injection. Continuous EKG monitoring was performed. The maximum heart rate was 92 bpm which was 62% of max impacted heart rate the maximum workload was 1 metabolic equivalent. At rest there were no ST or T wave changes noted to suggest ischemia and at peak infusion nonspecific ST changes were noted which did not meet the criteria for ischemia. No clinical angina is noted. The final blood pressure was 140/70 mmHg. Myocardial perfusion protocol. 14.5 mCi of technetium 99m sestamibi was injected at rest. 0.4 mg of regadenoson was infused per usual protocol. At peak infusion 44.7 mCi of technetium 99m sestamibi was injected stress images were obtained stress and rest images were reconstructed and compared in the short axis vertical long and horizontal long axis. Gated images were also obtained. Perfusion SPECT analysis: Review of the stress images demonstrate normal uptake of tracer noted in all areas of the myocardium. The resting images similar demonstrated normal uptake of tracer noted in all areas of the myocardium. No areas of reversibility are noted to suggest ischemia and no previous infarct is noted. Gated SPECT analysis: The gated ejection fraction is 79%. Conclusion: Normal pharmacologic myocardial perfusion stress test. Normal ejection fraction.
== END | disposition home or self-care (01) ==
LOC: CVS 06:46
PROVIDERS: PCP Family Medicine; Referring Provider Physician Assistant Medical; Visit Provider Physician Assistant Medical
DX: R94.31 Abnormal electrocardiogram [ECG] [EKG] (principal); I48.91 Unspecified atrial fibrillation
CPT/HCPCS: 78452; 93017; A9500; A4216; J2785

== ENCOUNTER → 2025-03-30 | Outpatient (CLI) | payer MEDICARE, OTHER, SELFPAY ==
[2025-03-30 10:36] LABS: Hematocrit 37.8 % (37-47); Hemoglobin 11.2 g/dL (12.0-15.0); Immature Granulocytes Count 0.020 X10^3/uL (0.0-0.0); Mean Corp Hgb Conc 29.6 g/dL (32-36); Mean Corpuscular Volume 89.2 fL (81-99); Mean Platelet Vol. 10.9 fl (6.2-12.0); NRBC Flagged by Analyzer 0 % (0-5); Platelet Count 258 K/mm3 (150-450); RBC Distribution Width CV 17.5 % (11.6-14.6); RBC Distribution Width SD 54.9 fl (35.1-43.9); Red Blood Count 4.24 M/mm3 (4.2-5.4); White Blood Count 4.0 K/mm3 (4.4-11.0)
[2025-03-30 11:17] LABS: AST(SGOT) 22 U/L (<=31); Alanine Aminotransfer ALT/SGPT 9 U/L (<=34); Albumin, Serum 3.9 g/dL (3.4-4.8); Alkaline Phosphatase 70 U/L (35-104); Anion Gap 11 (5-15); BUN 9 mg/dL (4-19); BUN/Creat Ratio 10.2 RATIO (10-20); Calcium,Total 9.5 mg/dL (7.6-11.0); Carbon Dioxide 23.9 mmol/L (21.0-32.0); Chloride 107 mmol/L (98-108); Globulin 3.3 g/dL (2.2-4.2); Glucose 105 mg/dL (70-99); Potassium 4.0 mmol/L (3.3-5.1)
== END | disposition home or self-care (01) ==
LOC: LAB 09:51
PROVIDERS: PCP Family Medicine; Referring Provider Internal Medicine Rheumatology; Visit Provider Internal Medicine Rheumatology
DX: M05.79 Rheumatoid arthritis with rheumatoid factor of multiple sites without organ or systems involvement (principal); Z79.899 Other long term (current) drug therapy
CPT/HCPCS: 36415; 80053; 85025

== ENCOUNTER 2025-03-31 06:42 | Day surgery (SDC) | payer MEDICARE, OTHER, SELFPAY ==
--- NOTE | 2025-03-23 09:20 | RAD_ITS ---
PROCEDURE: CHEST PA AND LATERAL 03/23/2025 REASON FOR EXAM: PROCEDURE TECHNIQUE: Procedure Code: RADCXR Modality: DX Procedure: CHEST PA AND LATERAL COMPARISON: 06/28/2024 FINDINGS: Hardware: NONE Heart: The heart size is normal. Mediastinum: The mediastinal contour is unremarkable. Lungs: The lungs are clear. Bones: The bones are unremarkable. RAD/Chest PA and Lateral IMPRESSION: NO ACUTE FINDINGS. Reading Location: [facility]
[2025-03-23 10:04] LABS: Anion Gap 10 (5-15); BUN 10 mg/dL (4-19); BUN/Creat Ratio 11.6 RATIO (10-20); Calcium,Total 9.3 mg/dL (7.6-11.0); Carbon Dioxide 23.6 mmol/L (21.0-32.0); Chloride 108 mmol/L (98-108); Glucose 116 mg/dL (70-99); Potassium 3.8 mmol/L (3.3-5.1)
[2025-03-30 07:57] VITALS: BMI 31.9
--- OUTSIDE RECORDS SUMMARY | 2025-03-31 06:48 | XMS RPT_ITS | CCD ---
Author Organization [facility] Care Team Providers Care Magazine Filler Name Role Phone Sarahy RN, Nicole Hurd [...] Provider Dr. Eric Lozano Referring Provider Kev CALDEORN, AHSAN Rodriguez Attending Provider Eric Lozano MD Primary Care Provider [phone] Eric Lozano Primary Care Provider Dr. Eric Lozano Referring Provider Kev MAINTAINER CENTRAL OFFICE, MAINTAINER CENTRAL OFFICE-C Jennifer Attending Provider Dr. Eric Lozano Primary Care Provider Dr. Eric Olmos Attending Provider Dr. Mario Taveras Attending Provider Dr. Eric West Emergency Provider Dr. Sophia Wang Admit Provider Dr. Sophia Wang Other Provider Dr. Dmitry Griggs Attending Provider Dr. Dmitry Griggs Other Provider Dr. Eric Olmos Other Provider Dr. Giovani Mesa Other Provider [phone] Donell Ray Other Provider Dr. Amanuel [...] BERRIOS, Dr. Miles Primary Care Provider Stanley MAINTAINER CENTRAL OFFICE-C, Yudy Attending Provider Stanley MAINTAINER CENTRAL OFFICE-C, Yudy Referring Provider Alisha GEORGE, Dr. Hand [...] Unavailable LOZANO, A Primary Care Unavailable LOZANO, ERCI A Primary Care Unavailable LOZANO, A Primary Care Unavailable MIRA VALENCIA Referring Unavailable LOZANO, A Primary Care Unavailable Vellanki, Sheeba Attending Unavailable Vellanki, Sheeba Referring Unavailable Lozano, Primary Care Unavailable Lozano, Referring Unavailable Lozano, Attending Unavailable Lozano, Primary Care Unavailable Jopperi, Consulting Unavailable Jopperi, Admitting Unavailable Sheri Lamb Attending Unavailable Lozano, Primary Care Unavailable Adonis, Shrei Consulting Unavailable Jopperi, Attending Unavailable Lozano, Referring Unavailable Beatrice Bond Attending Unavail able Lozano, Primary Care Unavailable Lozano, Primary Care Unavailable Lozano, Referring Unavailable Beatrice Bond Attending Unavail able Mario Taveras Attending Unavailable Lozano, Primary Care Unavailable Vellanki, Sheeba Attending Unavailable Vellanki, Sheeba Referring Unavailable Lozano, Primary Care Unavailable Lozano, Primary Care Unavailable Beatrice Bond Referring Unavail able Beatrice Bond Attending Unavail able Gladis Moralez Attending Unavailable Lozano, Primary Care Unavailable Lozano, Primary Care Unavailable Stanley MAINTAINER CENTRAL OFFICE, Yudy Referring Unavailable Stanley MAINTAINER CENTRAL OFFICE, Yudy Attending Unavailable Lozano, Primary Care Unavailable Jopperi, Consulting Unavailable Jopperi, Admitting Unavailable Sheri Lamb Attending Unavailable Vellanki, Sheeba Referring Unavailable Vellanki, Sheeba Attending Unavailable Lozano, Primary Care Unavailable Vellanki, Sheeba Referring Unavailable Vellanki, Sheeba Attending Unavailable Lozano, Primary Care Unavailable Vellanki, Sheeba Attending Unavailable Vellanki, Sheeba Referring Unavailable Lozano, Primary Care Unavailable Lozano, Primary Care Unavailable Stanley MAINTAINER CENTRAL OFFICE, Yudy Referring Unavailable Stanley MAINTAINER CENTRAL OFFICE, Yudy Attending Unavailable Allergies Allergy Classification Reported Allergen(s) Allergy Type Date of Onset Reaction(s) Facility Amoxicillin / Clavulanate (1 source) Amoxicillin / Clavulanate Drug Allergy 6 GI Upset [facility] Doxycycline (1 source) Doxycycline Drug Allergy 2 Unknown [facility] (20 sources) Doxycycline; Translations: [DOXYCYCLINE] Drug Allergy 1 Unknown [facility] (12 sources) environmental [Other] Propensity to adverse reactions 7 [facility] Work Phone: (17 sources) Amoxicillin / Clavulanate; Translations: [AMOXICILLIN-POT CLAVULANATE] Drug Allergy 6 GI Upset [facility] (1 source) Doxycycline Drug Allergy 5 [facility] Medications Current Medications Medication Drug Class(es) Dates Sig (Normalized) Sig (Original) [id number] actuat albuterol 0.09 mg/actuat metered dose [...] MCG /ACT AERS as direceted ALBUTEROL SULFATE [id number] Mario Taveras MD Start: 10-16-2016 End: 10-16-2016 PROAIR HFA 108 (90 Base) MCG /ACT AERS as direceted ALBUTEROL SULFATE [id number] Mario Taveras MD Start: 10-16-2016 PROAIR HFA 108 (90 Base) MCG/ACT AERS as direceted ALBUTEROL SULFATE [id number] Kelly Mehta RN Comment on above: Inhale [...] Comment on above: Take 1 tablet by [facility] twice daily for 10 days. azithromycin [...] Comment on above: Take 1 capsule by [facility] three times daily for 7 days. famotidine [...] Active Start: 11-08-2022 take 1 tablet by [facility] once daily Start: 09-26-2022 End: 10-01-2022 take [...] completed) Start: 03-05-2022 take 1 tablet by lilyl once daily as needed predniSONE (DELTASONE) 10 [...] pain Start: 10-16-2016 take 1 tablet by [facility] twice daily as needed TRAMADOL HCL 50 MG TABS One tablet by mouth twice daily as needed TRAMADOL HCL [id number] Mario Taveras MD Completed/Discontinued Medications Medication Drug [...] 5- 325 MG TABS as directed HYDROCODONE-ACETAMINOPHEN [id number] Mario Taveras MD acetaminophen 325 mg / [...] TBEC One tablet by mouth daily ASPIRIN 48056281212 Nciole Weathers RN take 1 tablet by mouth once abraham y ASPIRIN 81 MG ORAL TABS One tablet by mouth daily ASPIRIN 68944325718 Vianey Lujanpie COMMUNICATIONS ADVISOR take 1 tablet by mouth once abraham y ASPIRIN 81 MG ORAL TABS One tablet by mouth daily ASPIRIN 15881391558 Vianey Lujanpie COMMUNICATIONS ADVISOR benzonatate 100 mg oral capsule (20 sources) [...] CAPS One tablet by mouth daily CELECOXIB [id number] Mario Taveras MD cetirizine hydrochloride 10 mg oral tablet (20 sources) Histamine-1 Receptor Antagonist Start: 10-30-19 11 End: 05-09-19 15 take 1 tablet by mouth once daily ZYRTEC ALLERGY 10 MG TABS One tablet by mouth daily CETIRIZINE HCL 15862200143 Yara Narvaez codeine phosphate 2 mg/ml / [...] One tablet by mouth daily FERROUS GLUCONATE 06687813754 Ana Hackett take 1 tablet by mouth once abraham y IRON 240 (27 Fe) MG TABS One tablet by mouth daily FERROUS GLUCONATE 74709663308 Vianey Reece LPN folic acid 1 mg [...] MG TABS (Atarax) As needed HYDROXYZINE HCL 34288075432 Mario Taveras MD ipratropium bromide 0.021 mg/actuat nasal spray (7 sources) Anticholinergic Start: 10-16-2016 IPRATROPIUM BR OMIDE 0.03 % SOLN Nasal spray as directed IPRATROPIUM BROMIDE 16597694089 Kelly Mehta RN LACTOBACILLUS CAPS (6 sources) Start: 10-16-2016 End: 10-16-2016 take 1 tablet by mouth once daily ACIDOPHILUS CAPS One tablet by mouth daily LACTOBACILLUS CAPS 71707974394 Mario Taveras MD Start: 10-16-2016 take 1 tablet by lilly th once daily ACIDOPHILUS CAPS One tablet by mouth daily LACTOBACILLUS CAPS 17967864835 Kelly Mehta RN LACTOBACILLUS CAPS (6 sources) Start: 10-16-2016 End: 10-16-2016 take 1 tablet by mouth once daily ACIDOPHILUS CAPS One tablet by mouth daily LACTOBACILLUS CAPS 85413965138 Mario Tavears MD Start: 10-16-2016 take 1 tablet by lilly th once daily ACIDOPHILUS CAPS One tablet by mouth daily LACTOBACILLUS CAPS 83217091306 Kelly Mehta RN levoFLOXacin 500 mg oral [...] tablet by mouth Q6H as needed LORAZEPAM 80288543292 Yara Narvaez metoprolol tartrate 50 mg oral [...] MCG/ACT SUSP Take as directed MOMETASONE FUROATE 02734573796 Vianeyadrienne Reece LPN Start: 10-29-2010 End: 05-09-2014 NASONEX 50 MCG/ACT SUSP Take as directed MOMETASONE FUROATE 63588088024 Vianey Chevy COMMUNICATIONS ADVISOR Start: 10-29-2010 NASONEX 50 MCG /ACT SUSP Take as directed MOMETASONE FUROATE 29291452121 Yara M Narvaez nabumetone 750 mg oral [...] 31, 2024 1:00am January 04, 2025 9:29am [id number]-[id number]-FA (16 sources) End: 10-16-2016 take 1 tablet by mouth once daily PRE-CARSON FORMULA TABS One tablet by mouth daily. [id number]-DGB-AF-FA [id number] Kelly Mehta RN take 1 tablet by mouth once abraham y PRE- FORMULA TABS One tablet by mouth daily. [id number]-RFB-AM-FA [id number] Marcelo Gomez take 1 tablet by mouth once abraham y PRE- FORMULA TABS One tablet by mouth daily. [id number]-VZS-[id number]-FA [id number] Ana Hackett [id number]-ULQ-MP-FA (11 sources) End: 10-16-2016 take 1 tablet by mouth once daily PRE- FORMULA TABS One tablet by mouth daily. [id number]-[id number]-FA-FA [id number] Kelly Mehta RN take 1 tablet by mouth once abraham y PRE- FORMULA TABS One tablet by mouth daily. [id number]-HSF-PB-FA [id number] Marcelo Gomez take 1 tablet by mouth once abraham y PRE- FORMULA TABS One tablet by mouth daily. KMUREDPT-IEC-MB-FA [id number] Ana Hackett raNITIdine 150 mg oral tablet [...] tablet by mouth at bedtime RANITIDINE HCL 02690625781 Mario Taveras MD Sennosides (Senna) 8.6 MG [...] TABS One tablet by mouth daily SIMVASTATIN 79806062643 Ana Hackett UMECLIDINIUM-VILANT TRISTAN (12 sources) Anticholinergic, beta2-Adrenergic Agonist Start: 10-16-2016 End: 10-16-2016 ANORO ELLIPTA 62.5-25 MCG/INH AEPB as direceted UMECLIDINIUM-VILAN TEROL 25588230899 Mario Taveras MD Start: 10-16-2016 End: 10-16-2016 ANORO ELLIPTA 62.5-25 MCG/IN H AEPB as direceted UMECLIDINIUM-VILANTEROL [id number] Kelly Mehta RN Start: 10-16-2016 ANORO ELLIPTA 62.5-25 MCG/INH AEPB as direceted UMECLIDINIUM-VILANTEROL [id number] Kelly Mehta RN Problems Active Problems Problem [...] sources) Long-term current use of anticoagulant; 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 This note was generated using [employer] software. It may contain errors in wording, punctuation, or spelling. Faisal Mancini APRN.BLOOD BANK CREDIT CLERK History and Record Review Clinical information obtained [...] Date Reviewed: 01/09/2025 Reviewed by: Faisal Mancini APRN.BLOOD BANK CREDIT CLERK - Fully Assessed Reason for Visit: Cough [28] Cmt: Chest congestion, Shortness of Breath x 6 days Primary Visit Diagnosis:Acute cough [R05.1] Other Visit Diagnosis:Sinobronchitis [J32.9, J40] Order(s):XR CHEST 2V FRONTAL/LAT [7612783] Order #: [id number] FUTURE predniSONE (DELTASONE) 20 mg tabletTake 2 tablets (more content not included)... [facility] Z[facility] ([facility]) -------- KIKO GODFREY ([id number]) 1950 F Date Time Provider Department 01/09/25 [...] Date Reviewed: 01/09/2025 Reviewed by: Pendlebury, Faisal, DOBBY LOOM FIXER.BLOOD BANK CREDIT CLERK - Fully Assessed Prescriptions as of 01/09/2025 - azelastine 0.1% nasal spray USE 1-2 sprays every 12 hours to reduce allergy reaction (antihistamine) and reduce risk of getting covid (binds to ACE2 receptor) - fluticasone (FLONASE) 50 mcg/actuation nasal spray USE 2 SPRAYS IN EACH NOSTRIL ONCE A DAY TO REDUCE FOR ALLERGY /IRRITANT DRAINAGE AND REDUCE SWELLING - Ipratropium [place] (ATROVENT) 21 mcg (0.03 %) nasal spray [...] Status:Closed by AYLA LUEVANO on 01/09/25 Normal [facility] XR CHEST 2V FRONTAL/LATon XR CHEST 2V [...] thoracic spondylosis. IMPRESSION: No acute radiographic abnormality. Wildlife Conservationist: PSCB Transcribe Date/Time: Jan 09 2025 11:40A Dictated by : DANI MALIN MD This examination was interpreted and the report reviewed and electronically signed by: DANI MALIN MD on Jan 09 2025 11:41AM EST [id number] Normal [facility] Absolute lymphocyte countOrd ered By: Sheeba Velasco on 01-04-2025 Lymphocytes Auto (Unsp spec) [#/Vol] 1.39 10*3/uL 0.83-4.51 [facility] Absolute neutrophil countOrd ered By: Sheeba Velasco on 01-04-2025 Neutrophils (Bld) [#/Vol] 2.3 10*3/uL 2.0-7.7 [facility] Anion gap in Serum or Plasma Ordered By: Sheeba Velasco on 01-04-2025 Anion gap [Moles/Vol] 11 mmol/L 5- [facility] Automated lymphocyte count a s percentage of total leukocytesOrdered By: Sheebalucie Velasco on 01-04-2025 Lymphocytes/100 WBC Auto (Unsp spec) 31.1 % - [facility] BUN/creatinine ratioOrdered By: [facility] Rod on 01-04-2025 Urea nitrogen/Creatinine [Mass ratio] 11.5 mg/mg 10- [facility] Basophil percentageOrdered B y: Sheeba Velasco on 01-04-2025 Basophils/100 WBC (Bld) 0.9 % 0-1 [facility] Bilirubin, totalOrdered By: Sheebalucie Velasco on 01-04-2025 Bilirubin [Mass/Vol] 0.32 mg/dL 0.00-1.30 [facility] CBC W/Diff, Automatedon 12-14 Absolute Lymph 1.39 X10 3/uL Normal 0.83-4.51 [facility] Comment on above: Performed By: #### L 100.0100, L500.4050 #### [facility] [address] [place], [address] Absolute Neut 2.3 X10 3/uL Normal 2.0-7.7 [facility] Comment on above: Performed By: #### L 100.0100, L500.4050 #### [facility] [address] [place], [address] Basophils/100 WBC (Bld) 0.9 % Normal 0-1 [facility] Comment on above: Performed By: #### L 100.0100, L500.4050 #### [facility] [address], [address] Eosinophils/100 WBC (Bld) 3.1 % Normal 0-5 [facility] Comment on above: Performed By: #### L 100.0100, L500.4050 #### [facility] [address] [place], [address] Erythrocyte distribution width (RBC) [Ratio] 17.6 % High 11.6-14.6 [facility] Comment on above: Performed By: #### L 100.0100, L500.4050 #### [facility] [address] [place], [address] Hematocrit (Bld) [Volume fraction] 38.2 % Normal 37-47 [facility] Comment on above: Performed By: #### L 100.0100, L500.4050 #### [facility] [address] [place], [address] Hemoglobin (Bld) [Mass/Vol] 11.7 g/dL Low 12.0-15.0 [facility] Comment on above: Performed By: #### L 100.0100, L500.4050 #### [facility] [address] [place], [address] IG% 0.200 Normal 0.0-0.9 [facility] Comment on above: Result Comment: IG% - Immature Granulocytes (promyelocytes, myelocytes and metamyelocytes) > 1% indicates that a LEFT SHIFT is Present. Performed By: #### L 100.0100, L500.4050 #### [facility] [address] [place], [address] Lymphocytes/100 WBC (Bld) 31.1 % Normal 19-41 [facility] Comment on above: Performed By: #### L 100.0100, L500.4050 #### [facility] [address] [place], [address] MCH (RBC) [Entitic mass] 26.8 pg Low 27.0-32.0 [facility] Comment on above: Performed By: #### L 100.0100, L500.4050 #### [facility] [address] [place], [address] MCHC (RBC) [Mass/Vol] 30.6 g/dL Low 32-36 [facility] Comment on above: Performed By: #### L 100.0100, L500.4050 #### [facility] [address] [place], [address] MCV (RBC) [Entitic vol] 87.6 fL Normal 81-99 [facility] Comment on above: Performed By: #### L 100.0100, L500.4050 #### [facility] [address] [place], [address] Monocytes/100 WBC (Bld) 13.2 % High 0-10 [facility] Comment on above: Performed By: #### L 100.0100, L500.4050 #### [facility] [address] [place], [address] Neutrophils/100 WBC (Bld) 51.5 % Normal 47-70 [facility] Comment on above: Performed By: #### L 100.0100, L500.4050 #### [facility] [address] [place], [address] Nucleated RBC (Bld) [#/Vol] 0 10*3/uL Normal 0-5 [facility] Comment on above: Performed By: #### L 100.0100, L500.4050 #### [facility] [address] [place], [address] Platelet mean volume (Bld) [Entitic vol] 10.4 fL Normal 6.2-12.0 [facility] Comment on above: Performed By: #### L 100.0100, L500.4050 #### [facility] [address] [place], [address] Platelets (Bld) [#/Vol] 236 10*3/uL Normal 150-450 [facility] Comment on above: Performed By: #### L 100.0100, L500.4050 #### [facility] [address] [place], [address] RBC (Bld) [#/Vol] 4.36 10*6/uL Normal 4.2-5.4 [facility] Comment on above: Performed By: #### L 100.0100, L500.4050 #### [facility] [address] [place], [address] RDW SD 54.9 fl High 35.1-43.9 [facility] Comment on above: Performed By: #### L 100.0100, L500.4050 #### [facility] [address] [place], [address] WBC (Bld) [#/Vol] 4.5 10*3/uL Normal 4.4-11.0 [facility] Comment on above: Performed By: #### L 100.0100, L500.4050 #### [facility] [address] [place], [address] Carbon dioxide, total [Moles /volume] in Central venous bloodOrdered By: Sheeba Velasco on 01-04-2025 CO2 [Moles/Vol] 22.2 mmol/L 21.0-32.0 [facility] Cardiology Visit Reporton Cardiology Visit Report [facility] 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 Normal [facility] Chloride assayOrdered By: Tatiana Velasco on 01-04-2025 Chloride [Moles/Vol] 108 mmol/L 98-108 [facility] Comprehensive Metabolic Prof ilon 01-04-2025 Albumin [Mass/Vol] 4.0 g/dL Normal 3.4-4.8 [facility] Comment on above: Performed By: #### L 100.0100, L500.4050 ####[facility] [address] [place], [address] Albumin/Globulin [Mass ratio] 1.3 {ratio} Normal 0.9-2.4 [facility] Comment on above: Performed By: #### L 100.0100, L500.4050 ####[facility] [address] [place], [address] ALK PHOS 69 U/L Normal 35-104 [facility] Comment on above: Performed By: #### L 100.0100, L500.4050 ####[facility] [address] [place], [address] ALT [Catalytic activity/Vol] 8 U/L Normal <=34 [facility] Comment on above: Performed By: #### L 100.0100, L500.4050 ####[facility] [address] [place], [address] AST [Catalytic activity/Vol] 24 U/L Normal <=31 [facility] Comment on above: Performed By: #### L 100.0100, L500.4050 ####[facility] [address] [place], [address] Bilirubin [Mass/Vol] 0.32 mg/dL Normal 0.00-1.30 [facility] Comment on above: Performed By: #### L 100.0100, L500.4050 ####[facility] [address] [place], [address] BUN/CRE 11.5 RATIO Normal 10-20 [facility] Comment on above: Performed By: #### L 100.0100, L500.4050 ####[facility] [address] [place], [address] Calcium [Mass/Vol] 9.2 mg/dL Normal 7.6-11.0 [facility] Comment on above: Performed By: #### L 100.0100, L500.4050 ####[facility] [address] [place], [address] Chloride [Moles/Vol] 108 mmol/L Normal 98-108 [facility] Comment on above: Performed By: #### L 100.0100, L500.4050 ####[facility] [address] [place], [address] CO2 [Moles/Vol] 22.2 mmol/L Normal 21.0-32.0 [facility] Comment on above: Performed By: #### L 100.0100, L500.4050 ####[facility] [address] [place], [address] GAP 11 Normal 5-15 [facility] Comment on above: Performed By: #### L 100.0100, L500.4050 ####[facility] [address] [place], [address] GFR/1.73 sq M.predicted among non-blacks MDRD (S/P/Bld) [Vol rate/Area] 61 mL/min/{1.73_m2} Normal >60 [facility] Comment on above: Result Comment: mL/m in/1.73m2 CKD-EPI Creatinine Equation (2020) Performed By: #### L 100.0100, L500.4050 ####[facility] [address] [place], [address] Globulin (S) [Mass/Vol] 3.1 g/dL Normal 2.2-4.2 [facility] Comment on above: Performed By: #### L 100.0100, L500.4050 ####[facility] [address] [place], [address] Potassium [Moles/Vol] 3.7 mmol/L Normal 3.3-5.1 [facility] Comment on above: Performed By: #### L 100.0100, L500.4050 ####[facility] [address] [place], [address] Sodium [Moles/Vol] 142 mmol/L Normal 133-145 [facility] Comment on above: Performed By: #### L 100.0100, L500.4050 ####[facility] [address] [place], [address] T PROT 7.1 g/dL Normal 5.9-8.4 [facility] Comment on above: Performed By: #### L 100.0100, L500.4050 ####[facility] [address] [place], [address] Creatinine [Mass/Vol] 0.98 mg/dL Normal 0.70-1.20 [facility] Comment on above: Performed By: #### L 100.0100, L500.4050 ####[facility] [address] [place], [address] Glucose [Mass/Vol] 111 mg/dL High 70-99 [facility] Comment on above: Performed By: #### L 100.0100, L500.4050 ####[facility] [address] [place], [place], [address] Urea nitrogen [Mass/Vol] 11 mg/dL Normal 4-19 [facility] Comment on above: Performed By: #### L 100.0100, L500.4050 ####[facility] [address] [facility] [place], [place], [address] Eosinophil percentageOrdered By: Sheeba Velasco on 01-04-2025 Eosinophils/100 WBC (Bld) 3.1 % 0-5 [facility] Erythrocyte distribution wid th ratioOrdered By: [facility] on 01-04-2025 Erythrocyte distribution width (RBC) [Ratio] 17.6 % High 11.6-14.6 [facility] Erythrocyte distribution wid th standard deviationOrdered By: [facility] Rod on 01-04-2025 Erythrocyte distribution width (RBC) [Ratio] 54.9 fl High 35.1-43.9 [facility] Glomerular filtration rate ( GFR) estimation/1.73 sq m using serum, plasma, or whole bOrdered By: Sheebalucie Velasco on 01-04-2025 GFR/1.73 sq M.predicted among non-blacks MDRD (S/P/Bld) [Vol rate/Area] 61 mL/min/{1.73_m2} >60 [facility] Comment on above: mL/min/1.73m2 CKD-EP I Creatinine Equation (2020) Hematocrit Auto (Bld) [Volum e fraction]Ordered By: [facility] Rod on 01-04-2025 Hematocrit (Bld) [Volume fraction] 38.2 % 37-47 [facility] Hemoglobin measurementOrdere d By: Sheeba Velasco on 01-04-2025 Hemoglobin (Bld) [Mass/Vol] 11.7 g/dL Low 12.0-15.0 [facility] Immature granulocytes/100 WB C Auto (Bld)Ordered By: Sheeba Velasco on 01-04-2025 Immature granulocytes/100 WBC (Bld) 0.200 % 0.0-0.9 [facility] Comment on above: IG% - Immature Granu locytes (promyelocytes, myelocytes and metamyelocytes) > 1% indicates that a LEFT SHIFT is Present. Laboratory - Chemistry and C hemistry - challengeOrdered By: Sheeba Velasco on 01-04-2025 AST [Catalytic activity/Vol] 24 U/L <32 [facility] MCV (mean corpuscular volume ) determinationOrdered By: Sheeba Velasco on 01-04-2025 MCV (RBC) [Entitic vol] 87.6 fL 81-99 [facility] Mean corpuscular hemoglobin (MCH) determinationOrdered By: Sheeba Velasco on 01-04-2025 MCH (RBC) [Entitic mass] 26.8 pg Low 27.0-32.0 [facility] Mean corpuscular hemoglobin concentration (MCHC) determinationOrdered By: Sheeba Velasco on 01-04-2025 MCHC (RBC) [Mass/Vol] 30.6 g/dL Low 32-36 [facility] Mean platelet volume determi nationOrdered By: Sheeba Velasco on 01-04-2025 Platelet mean volume (Bld) [Entitic vol] 10.4 fL 6.2-12.0 [facility] Monocyte percentageOrdered B y: Sheeba Velasco on 01-04-2025 Monocytes/100 WBC (Bld) 13.2 % High 0-10 [facility] Neutrophil percentageOrdered By: Sheeba Velasco on 01-04-2025 Neutrophils/100 WBC (Bld) 51.5 % 47-70 [facility] Nucleated red blood cell per centageOrdered By: Sheeba Velasco on 01-04-2025 Nucleated RBC/100 WBC (Bld) [Ratio] 0 % 0-5 [facility] Platelet countOrdered By: Tatiana Velasco on 01-04-2025 Platelets (Bld) [#/Vol] 236 10*3/uL 150-450 [facility] Potassium measurement (mass/ volume)Ordered By: Sheeba Velasco on 01-04-2025 Potassium (Unsp spec) [Mass/Vol] 3.7 mmol/L 3.3-5.1 [facility] RBC Auto (Bld) [#/Vol]Ordere d By: Sheeba Velasco on 01-04-2025 RBC (Bld) [#/Vol] 4.36 10*6/uL 4.2-5.4 [facility] Serum creatinine measurement (mass/volume)Ordered By: Sheeba Velasco on 01-04-2025 Creatinine [Mass/Vol] 0.98 mg/dL 0.70-1.20 [facility] Serum globulin measurementOr dered By: Sheeba Velasco on 01-04-2025 Globulin (S) [Mass/Vol] 3.1 g/dL 2.2-4.2 [facility] Serum glucose measurement (m ass/volume)Ordered By: Sheeba Velasco on 01-04-2025 Glucose [Mass/Vol] 111 mg/dL High 70-99 [facility] Serum or plasma alanine cano otransferase (ALT) measurementOrdered By: Sheeba Velasco on 01-04-2025 ALT [Catalytic activity/Vol] 8 U/L <35 [facility] Serum or plasma albumin barbara urement (mass/volume)Ordered By: Sheeba Velasco on 01-04-2025 Albumin [Mass/Vol] 4.0 g/dL 3.4-4.8 [facility] Serum or plasma albumin/glob ulin mass ratioOrdered By: Sheeba Velasco on 01-04-2025 Albumin/Globulin [Mass ratio] 1.3 {ratio} 0.9-2.4 [facility] Serum or plasma alkaline paulino sphatase measurementOrdered By: Sheeba Velasco on 01-04-2025 ALP [Catalytic activity/Vol] 69 U/L 35-104 [facility] Serum or plasma calcium barbara urement (mass/volume)Ordered By: Sheeba Velasco on 01-04-2025 Calcium [Mass/Vol] 9.2 mg/dL 7.6-11.0 [facility] Serum or plasma urea nitroge n measurement (mass/volume)Ordered By: Sheeba Velasco on 01-04-2025 Urea nitrogen [Mass/Vol] 11 mg/dL 4-19 [facility] Sodium levelOrdered By: Darrell Velasco on 01-04-2025 Sodium [Moles/Vol] 142 mmol/L 133-145 [facility] Total proteinOrdered By: Josh Velasco on 01-04-2025 Protein [Mass/Vol] 7.1 g/dL 5.9-8.4 [facility] White blood cell (WBC) count Ordered By: Sheeba Velasco on 01-04-2025 WBC (Bld) [#/Vol] 4.5 10*3/uL 4.4-11.0 [facility] Breast imaging reportOrdered By: Craig Lindo on 12-23-2024 Study report [facility] Imaging Services [address] [place] [address] SCRN MAMM (CAD)W/VERITO BILAT MR#: [id number] Acct: [id number] Name: KIKO GODFREY Rep #: [id number] : 1950 F 74 From: Art Lindo MD PCP: Dr. Eric Lozano MD Status: [facility] Study:SCRN MAMM (CAD)W/VERITO BILAT Date of Exa m: 12/23/24 Exam# [id number] Ordering Dr: Arnoldo Lozano MD EXAM: SCRN [...] be mailed to the patient. Reading Location: [id number] CC: Dr. Eric Lozano MD ~ Wildlife Conservationist: Signed [facility] SCRN MAMM (CAD)W/VERITO BILATo n 12-23-2024 SCRN MAMM (CAD)W/VERTIO BILAT [facility] Imaging Services [address] [place] [address] SCRN MAMM (CAD)W/VERITO BILAT MR#: [id number] Acct: [id number] Name: KIKO GODFREY Rep #: [id number] : 1950 F 74 From: Craig sampson MD PCP: Dr. Eric Lozano MD Status: [facility] Study: SCRN MAMM (CAD)W/VERITO BILAT Date of Exam: 12/13 05/08 Exam# [id number] Ordering Dr: Eric Lozano MD EXAM: SCRN [...] be mailed to the patient. Reading Location: [id number] CC: Dr. Eric Lozano MD Wildlife Conservationist: Signed Normal [facility] Quantiferon TB-Gold+on 10-22 QFT MITOGEN JEANNIE > 10.00 Normal . [facility] Comment on above: Performed By: #### L 3400.8000 ####[facility] [address] [place], [address] QFT NIL VALUE 0.04 IU/mL Normal . [facility] Comment on above: Performed By: #### L 3400.8000 ####[facility] [address] [place], [address] QFT TB GOLD+ Comment Normal . [facility] Comment on above: Result Comment: Venkatesh tiFERON-TB [...] the test. Performed By: #### L 3400.8000 ####[facility] [address] [facility] [place], [address] QFT TB POS CRIT Negative Normal Negative [facility] Comment on above: Result Comment: No r [...] interferon gamma. Chemiluminescence immunoassay methodology Performed at: [facility] [employer] [id number] Weld Fitter: Wilfredo Apodaca PhD, Phone: [phone] Performed By: #### L 3400.8000 ####[facility] [address] [place], [address] QFT TB1+ AG JEANNIE 0.07 IU/mL Normal . [facility] Comment on above: Performed By: #### L 3400.8000 ####[facility] [address] [place], [place], [id number] QFT TB2+ AG JEANNIE 0.06 IU/mL Normal . [facility] Comment on above: Performed By: #### L 3400.8000 ####[facility] [address] [place], [address] Qualitative QuantiFERON-TB g old in tube testOrdered By: Sheeba Velasco on 10-19-2024 M. tuberculosis tuberculin stim IFN-g Ql (Bld) 0.07 IU/mL . [facility] Absolute lymphocyte countOrd ered By: Sheeba Velasco on 10-12-2024 Lymphocytes Auto (Unsp spec) [#/Vol] 0.81 10*3/uL Low 0.83-4.51 [facility] Absolute neutrophil countOrd ered By: [facility] Rod on 10-12-2024 Neutrophils (Bld) [#/Vol] 5.8 10*3/uL 2.0-7.7 [facility] Anion gap in Serum or Plasma Ordered By: Sheeba Velasco on 10-12-2024 Anion gap [Moles/Vol] 12 mmol/L 5-15 [facility] Automated blood erythrocyte countOrdered By: Sheeba Velasco on 10-12-2024 RBC (Bld) [#/Vol] 4.19 10*6/uL Low 4.2-5.4 [facility] Comment on above: Performed By: #### L 500.4050, L100.0100 #### [facility] [address] [place], [address] Automated blood hematocrit ( percentage)Ordered By: Sheeba Velasco on 10-12-2024 Hematocrit (Bld) [Volume fraction] 36.3 % Low 37-47 [facility] Comment on above: Performed By: #### L 500.4050, L100.0100 #### [facility] [address] [place], [address] Automated lymphocyte count a s percentage of total leukocytesOrdered By: Sheeba Velasco on 10-12-2024 Lymphocytes/100 WBC Auto (Unsp spec) 11.4 % Low 19-41 [facility] BUN/creatinine ratioOrdered By: Sheeba Rod on 10-12-2024 Urea nitrogen/Creatinine [Mass ratio] 14.2 mg/mg 10-20 [facility] Basophil percentageOrdered B y: Sheeba Rod on 10-12-2024 Basophils/100 WBC (Bld) 0.6 % Normal 0-1 [facility] Comment on above: Performed By: #### L 500.4050, L100.0100 #### [facility] [address] [place], [address] Bilirubin, totalOrdered By: Sheebalucie Velasco on 10-12-2024 Bilirubin [Mass/Vol] 0.28 mg/dL Normal 0.00-1.30 [facility] Comment on above: Performed By: #### L 500.4050, L100.0100 #### [facility] [address] [place], [address] CBC W/Diff, Automatedon 07-0 -2024 Absolute Lymph 0.81 X10 3/uL Low 0.83-4.51 [facility] Comment on above: Performed By: #### L 500.4050, L100.0100 #### [facility] [address] [place], [address] Absolute Neut 5.8 X10 3/uL Normal 2.0-7.7 [facility] Comment on above: Performed By: #### L 500.4050, L100.0100 #### [facility] [address] [place], [address] IG% 0.400 Normal 0.0-0.9 [facility] Comment on above: Result Comment: IG% - Immature Granulocytes (promyelocytes, myelocytes and metamyelocytes) > 1% indicates that a LEFT SHIFT is Present. Performed By: #### L 500.4050, L100.0100 #### [facility] [address] [place], [address] Lymphocytes/100 WBC (Bld) 11.4 % Low 19-41 [facility] Comment on above: Performed By: #### L 500.4050, L100.0100 #### [facility] [address] [place], [address] Nucleated RBC (Bld) [#/Vol] 0 10*3/uL Normal 0-5 [facility] Comment on above: Performed By: #### L 500.4050, L100.0100 #### [facility] [address] [place], [address] RDW SD 52.5 fl High 35.1-43.9 [facility] Comment on above: Performed By: #### L 500.4050, L100.0100 #### [facility] [address] [place], [address] Carbon dioxide, total [Moles /volume] in Central venous bloodOrdered By: Sheeba Velasco on 10-12-2024 CO2 [Moles/Vol] 21.7 mmol/L Normal 21.0-32.0 [facility] Comment on above: Performed By: #### L 500.4050, L100.0100 #### [facility] [address] [place], [address] Chloride assayOrdered By: Tatiana Velasco on 10-12-2024 Chloride [Moles/Vol] 106 mmol/L Normal 98-108 [facility] Comment on above: Performed By: #### L 500.4050, L100.0100 #### [facility] [address] [place], [address] Comprehensive Metabolic Prof ilon 10-12-2024 ALK PHOS 80 U/L Normal 35-104 [facility] Comment on above: Performed By: #### L 500.4050, L100.0100 #### [facility] [address] [place], [address] BUN/CRE 14.2 RATIO Normal 10-20 [facility] Comment on above: Performed By: #### L 500.4050, L100.0100 #### [facility] [address] [place], [address] GAP 12 Normal 5-15 [facility] Comment on above: Performed By: #### L 500.4050, L100.0100 #### [facility] [address] [place], [address] Potassium [Moles/Vol] 4.4 mmol/L Normal 3.3-5.1 [facility] Comment on above: Performed By: #### L 500.4050, L100.0100 #### [facility] [address] [place], [address] T PROT 7.2 g/dL Normal 5.9-8.4 [facility] Comment on above: Performed By: #### L 500.4050, L100.0100 #### [facility] [address] [place], [address] Comprehensive Metabolic Prof ilOrdered By: Sheeba Velasco on 10-12-2024 AST [Catalytic activity/Vol] 21 U/L Normal <=31 [facility] Comment on above: Performed By: #### L 500.4050, L100.0100 #### [facility] [address] [place], [address] Eosinophil percentageOrdered By: Sheeba Velasco on 10-12-2024 Eosinophils/100 WBC (Bld) 0.1 % Normal 0-5 [facility] Comment on above: Performed By: #### L 500.4050, L100.0100 #### [facility] [address] [place], [address] Erythrocyte distribution wid th ratioOrdered By: Sheeba Velasco on 10-12-2024 Erythrocyte distribution width (RBC) [Ratio] 17.0 % High 11.6-14.6 [facility] Comment on above: Performed By: #### L 500.4050, L100.0100 #### [facility] [address] [place], [address] Erythrocyte distribution wid th standard deviationOrdered By: Sheeba Velasco on 10-12-2024 Erythrocyte distribution width (RBC) [Ratio] 52.5 fl High 35.1-43.9 [facility] Glomerular filtration rate ( GFR) estimation/1.73 sq m using serum, plasma, or whole bOrdered By: Sheeba Velasco on 10-12-2024 GFR/1.73 sq M.predicted among non-blacks MDRD (S/P/Bld) [Vol rate/Area] 70 mL/min/{1.73_m2} Normal >60 [facility] Comment on above: mL/min/1.73m2 CKD-EP I Creatinine Equation (2020) Result Comment: mL/m in/1.73m2 CKD-EPI Creatinine Equation (2020) Performed By: #### L 500.4050, L100.0100 #### [facility] [address] [place], [address] Hemoglobin measurementOrdere d By: Sheeba Velasco on 10-12-2024 Hemoglobin (Bld) [Mass/Vol] 10.6 g/dL Low 12.0-15.0 [facility] Comment on above: Performed By: #### L 500.4050, L100.0100 #### [facility] [address] [place], [address] Immature granulocytes/100 WB C Auto (Bld)Ordered By: Sheeba Velasco on 10-12-2024 Immature granulocytes/100 WBC (Bld) 0.400 % 0.0-0.9 [facility] Comment on above: IG% - Immature Granu locytes (promyelocytes, myelocytes and metamyelocytes) > 1% indicates that a LEFT SHIFT is Present. MCV (mean corpuscular volume ) determinationOrdered By: Sheeba Velasco on 10-12-2024 MCV (RBC) [Entitic vol] 86.6 fL Normal 81-99 [facility] Comment on above: Performed By: #### L 500.4050, L100.0100 #### [facility] [address] [place], [address] Mean corpuscular hemoglobin (MCH) determinationOrdered By: Sheeba Velasco on 10-12-2024 MCH (RBC) [Entitic mass] 25.3 pg Low 27.0-32.0 [facility] Comment on above: Performed By: #### L 500.4050, L100.0100 #### [facility] [address] [place], [address] Mean corpuscular hemoglobin concentration (MCHC) determinationOrdered By: Sheeba Velasco on 10-12-2024 MCHC (RBC) [Mass/Vol] 29.2 g/dL Low 32-36 [facility] Comment on above: Performed By: #### L 500.4050, L100.0100 #### [facility] [address] [place], [address] Mean platelet volume determi nationOrdered By: Sheeba Velasco on 10-12-2024 Platelet mean volume (Bld) [Entitic vol] 10.2 fL Normal 6.2-12.0 [facility] Comment on above: Performed By: #### L 500.4050, L100.0100 #### [facility] [address] [place], [address] Monocyte percentageOrdered B y: Sheeba Velasco on 10-12-2024 Monocytes/100 WBC (Bld) 6.7 % Normal 0-10 [facility] Comment on above: Performed By: #### L 500.4050, L100.0100 #### [facility] [address] [place], [address] Neutrophil percentageOrdered By: Sheeba Velasco on 10-12-2024 Neutrophils/100 WBC (Bld) 80.8 % High 47-70 [facility] Comment on above: Performed By: #### L 500.4050, L100.0100 #### [facility] [address] [place], [address] Nucleated red blood cell per centageOrdered By: Sheeba Velasco on 10-12-2024 Nucleated RBC/100 WBC (Bld) [Ratio] 0 % 0-5 [facility] Platelet countOrdered By: Tatiana Velasco on 10-12-2024 Platelets (Bld) [#/Vol] 294 10*3/uL Normal 150-450 [facility] Comment on above: Performed By: #### L 500.4050, L100.0100 #### [facility] [address] [place], [address] Potassium measurement (mass/ volume)Ordered By: Sheeba Velasco on 10-12-2024 Potassium (Unsp spec) [Mass/Vol] 4.4 mmol/L 3.3-5.1 [facility] Serum creatinine measurement (mass/volume)Ordered By: Sheeba Velasco on 10-12-2024 Creatinine [Mass/Vol] 0.88 mg/dL Normal 0.70-1.20 [facility] Comment on above: Performed By: #### L 500.4050, L100.0100 #### [facility] [address] [place], [address] Serum globulin measurementOr dered By: Sheeba Velasco on 10-12-2024 Globulin (S) [Mass/Vol] 3.3 g/dL Normal 2.2-4.2 [facility] Comment on above: Performed By: #### L 500.4050, L100.0100 #### [facility] [address] [place], [address] Serum glucose measurement (m ass/volume)Ordered By: Sheeba Velasco on 10-12-2024 Glucose [Mass/Vol] 124 mg/dL High 70-99 [facility] Comment on above: Performed By: #### L 500.4050, L100.0100 #### [facility] [address] [place], [address] Serum or plasma alanine cano otransferase (ALT) measurementOrdered By: Sheeba Velasco on 10-12-2024 ALT [Catalytic activity/Vol] 9 U/L Normal <=34 [facility] Comment on above: Performed By: #### L 500.4050, L100.0100 #### [facility] [address] [place], [address] Serum or plasma albumin barbara urement (mass/volume)Ordered By: Sheeba Velasco on 10-12-2024 Albumin [Mass/Vol] 3.9 g/dL Normal 3.4-4.8 [facility] Comment on above: Performed By: #### L 500.4050, L100.0100 #### [facility] [address] [place], [address] Serum or plasma albumin/glob ulin mass ratioOrdered By: Sheeba Velasco on 10-12-2024 Albumin/Globulin [Mass ratio] 1.2 {ratio} Normal 0.9-2.4 [facility] Comment on above: Performed By: #### L 500.4050, L100.0100 #### [facility] [address] [place], [address] Serum or plasma alkaline paulino sphatase measurementOrdered By: Sheeba Velasco on 10-12-2024 ALP [Catalytic activity/Vol] 80 U/L 35-104 [facility] Serum or plasma calcium barbara urement (mass/volume)Ordered By: Sheeba Velasco on 10-12-2024 Calcium [Mass/Vol] 9.5 mg/dL Normal 7.6-11.0 [facility] Comment on above: Performed By: #### L 500.4050, L100.0100 #### [facility] [address] [place], [address] Serum or plasma urea nitroge n measurement (mass/volume)Ordered By: Sheeba Velasco on 10-12-2024 Urea nitrogen [Mass/Vol] 12 mg/dL Normal 4-19 [facility] Comment on above: Performed By: #### L 500.4050, L100.0100 #### [facility] [address] [place], [address] Sodium levelOrdered By: Darrell Velasco on 10-12-2024 Sodium [Moles/Vol] 140 mmol/L Normal 133-145 [facility] Comment on above: Performed By: #### L 500.4050, L100.0100 #### [facility] [address] [place], [address] Total proteinOrdered By: Josh Velasco on 10-12-2024 Protein [Mass/Vol] 7.2 g/dL 5.9-8.4 [facility] White blood cell (WBC) count Ordered By: Sheeba Velasco on 10-12-2024 WBC (Bld) [#/Vol] 7.1 10*3/uL Normal 4.4-11.0 [facility] Comment on above: Performed By: #### L 500.4050, L100.0100 #### [facility] [address] [place], [address] Absolute lymphocyte countOrd ered By: Sheeba Velasco on 07-21-2024 Lymphocytes Auto (Unsp spec) [#/Vol] 1.92 10*3/uL 0.83-4.51 [facility] Absolute neutrophil countOrd ered By: Sheeba Velasco on 07-21-2024 Neutrophils (Bld) [#/Vol] 3.0 10*3/uL 2.0-7.7 [facility] Anion gap in Serum or Plasma Ordered By: Sheeba Velasco on 07-21-2024 Anion gap [Moles/Vol] 11 mmol/L 5-15 [facility] Automated lymphocyte count a s percentage of total leukocytesOrdered By: Sheeba Velasco on 07-21-2024 Lymphocytes/100 WBC Auto (Unsp spec) 34.1 % 19-41 [facility] BUN/creatinine ratioOrdered By: Sheebalucie Velasco on 07-21-2024 Urea nitrogen/Creatinine [Mass ratio] 14.2 mg/mg 10-20 [facility] Basophil percentageOrdered B y: Sheeba Velasco on 07-21-2024 Basophils/100 WBC (Bld) 0.7 % 0-1 [facility] Bilirubin, totalOrdered By: Sheebalucie Velasco on 07-21-2024 Bilirubin [Mass/Vol] 0.21 mg/dL 0.00-1.30 [facility] CBC W/Diff, Automatedon Absolute Lymph 1.92 X10 3/uL Normal 0.83-4.51 [facility] Comment on above: Performed By: #### L 100.0100, L500.4050 ####[facility] [address] [place], [address] Absolute Neut 3.0 X10 3/uL Normal 2.0-7.7 [facility] Comment on above: Performed By: #### L 100.0100, L500.4050 ####[facility] [address] [place], [address] Basophils/100 WBC (Bld) 0.7 % Normal 0-1 [facility] Comment on above: Performed By: #### L 100.0100, L500.4050 ####[facility] [address] [place], [address] Eosinophils/100 WBC (Bld) 1.6 % Normal 0-5 [facility] Comment on above: Performed By: #### L 100.0100, L500.4050 ####[facility] [address] [place], [address] Erythrocyte distribution width (RBC) [Ratio] 16.3 % High 11.6-14.6 [facility] Comment on above: Performed By: #### L 100.0100, L500.4050 ####[facility] [address] [place], [address] Hematocrit (Bld) [Volume fraction] 37.0 % Normal 37-47 [facility] Comment on above: Performed By: #### L 100.0100, L500.4050 ####[facility] [address] [place], [address] Hemoglobin (Bld) [Mass/Vol] 10.9 g/dL Low 12.0-15.0 [facility] Comment on above: Performed By: #### L 100.0100, L500.4050 ####[facility] [address] [place], [address] IG% 0.400 Normal 0.0-0.9 [facility] Comment on above: Result Comment: IG% - Immature Granulocytes (promyelocytes, myelocytes and metamyelocytes) > 1% indicates that a LEFT SHIFT is Present. Performed By: #### L 100.0100, L500.4050 ####[facility] [address] [place], [address] Lymphocytes/100 WBC (Bld) 34.1 % Normal 19-41 [facility] Comment on above: Performed By: #### L 100.0100, L500.4050 ####[facility] [address] [place], [address] MCH (RBC) [Entitic mass] 26.0 pg Low 27.0-32.0 [facility] Comment on above: Performed By: #### L 100.0100, L500.4050 ####[facility] [address] [place], [address] MCHC (RBC) [Mass/Vol] 29.5 g/dL Low 32-36 [facility] Comment on above: Performed By: #### L 100.0100, L500.4050 ####[facility] [address] [place], [address] MCV (RBC) [Entitic vol] 88.1 fL Normal 81-99 [facility] Comment on above: Performed By: #### L 100.0100, L500.4050 ####[facility] [address] [place], [address] Monocytes/100 WBC (Bld) 9.4 % Normal 0-10 [facility] Comment on above: Performed By: #### L 100.0100, L500.4050 ####[facility] [address] [place], [address] Neutrophils/100 WBC (Bld) 53.8 % Normal 47-70 [facility] Comment on above: Performed By: #### L 100.0100, L500.4050 ####[facility] [address] [place], [address] Nucleated RBC (Bld) [#/Vol] 0 10*3/uL Normal 0-5 [facility] Comment on above: Performed By: #### L 100.0100, L500.4050 ####[facility] [address] [place], [address] Platelet mean volume (Bld) [Entitic vol] 10.0 fL Normal 6.2-12.0 [facility] Comment on above: Performed By: #### L 100.0100, L500.4050 ####[facility] [address] [place], [address] Platelets (Bld) [#/Vol] 266 10*3/uL Normal 150-450 [facility] Comment on above: Performed By: #### L 100.0100, L500.4050 ####[facility] [address] [place], [address] RBC (Bld) [#/Vol] 4.20 10*6/uL Normal 4.2-5.4 [facility] Comment on above: Performed By: #### L 100.0100, L500.4050 ####[facility] [address] [place], [address] RDW SD 51.4 fl High 35.1-43.9 [facility] Comment on above: Performed By: #### L 100.0100, L500.4050 ####[facility] [address] [place], [address] WBC (Bld) [#/Vol] 5.6 10*3/uL Normal 4.4-11.0 [facility] Comment on above: Performed By: #### L 100.0100, L500.4050 ####[facility] [address] [place], [address] Carbon dioxide, total [Moles /volume] in Central venous bloodOrdered By: Sheeba Velasco on 07-21-2024 CO2 [Moles/Vol] 23.2 mmol/L 21.0-32.0 [facility] Chloride assayOrdered By: Tatiana Velasco on 07-21-2024 Chloride [Moles/Vol] 107 mmol/L 98-108 [facility] Comprehensive Metabolic Prof ilon 07-21-2024 Albumin [Mass/Vol] 3.7 g/dL Normal 3.4-4.8 [facility] Comment on above: Performed By: #### L 100.0100, L500.4050 ####[facility] [address] [place], [address] Albumin/Globulin [Mass ratio] 1.1 {ratio} Normal 0.9-2.4 [facility] Comment on above: Performed By: #### L 100.0100, L500.4050 ####[facility] [address] [place], [address] ALK PHOS 88 U/L Normal 35-104 [facility] Comment on above: Performed By: #### L 100.0100, L500.4050 ####[facility] [address] [place], [address] ALT [Catalytic activity/Vol] 13 U/L Normal <=34 [facility] Comment on above: Performed By: #### L 100.0100, L500.4050 ####[facility] [address] [place], [address] AST [Catalytic activity/Vol] 20 U/L Normal <=31 [facility] Comment on above: Performed By: #### L 100.0100, L500.4050 ####[facility] [address] [place], [address] Bilirubin [Mass/Vol] 0.21 mg/dL Normal 0.00-1.30 [facility] Comment on above: Performed By: #### L 100.0100, L500.4050 ####[facility] [address] [place], [address] BUN/CRE 14.2 RATIO Normal 10-20 [facility] Comment on above: Performed By: #### L 100.0100, L500.4050 ####[facility] [address] [place], [address] Calcium [Mass/Vol] 9.2 mg/dL Normal 7.6-11.0 [facility] Comment on above: Performed By: #### L 100.0100, L500.4050 ####[facility] [address] [place], [address] Chloride [Moles/Vol] 107 mmol/L Normal 98-108 [facility] Comment on above: Performed By: #### L 100.0100, L500.4050 ####[facility] [address] [place], [address] CO2 [Moles/Vol] 23.2 mmol/L Normal 21.0-32.0 [facility] Comment on above: Performed By: #### L 100.0100, L500.4050 ####[facility] [address] [place], [address] Creatinine [Mass/Vol] 0.90 mg/dL Normal 0.70-1.20 [facility] Comment on above: Performed By: #### L 100.0100, L500.4050 ####[facility] [address] [place], [address] GAP 11 Normal 5-15 [facility] Comment on above: Performed By: #### L 100.0100, L500.4050 ####[facility] [address] [place], [address] GFR/1.73 sq M.predicted among non-blacks MDRD (S/P/Bld) [Vol rate/Area] 68 mL/min/{1.73_m2} Normal >60 [facility] Comment on above: Result Comment: mL/m in/1.73m2 CKD-EPI Creatinine Equation (2020) Performed By: #### L 100.0100, L500.4050 ####[facility] [address] [place], [address] Globulin (S) [Mass/Vol] 3.4 g/dL Normal 2.2-4.2 [facility] Comment on above: Performed By: #### L 100.0100, L500.4050 ####[facility] [address] [place], [address] Glucose [Mass/Vol] 117 mg/dL High 70-99 [facility] Comment on above: Performed By: #### L 100.0100, L500.4050 ####[facility] [address] [place], [address] Potassium [Moles/Vol] 3.7 mmol/L Normal 3.3-5.1 [facility] Comment on above: Performed By: #### L 100.0100, L500.4050 ####[facility] [address] [place], [address] Sodium [Moles/Vol] 141 mmol/L Normal 133-145 [facility] Comment on above: Performed By: #### L 100.0100, L500.4050 ####[facility] [address] [place], [address] T PROT 7.1 g/dL Normal 5.9-8.4 [facility] Comment on above: Performed By: #### L 100.0100, L500.4050 ####[facility] [address] [place], [address] Urea nitrogen [Mass/Vol] 13 mg/dL Normal 4-19 [facility] Comment on above: Performed By: #### L 100.0100, L500.4050 ####[facility] [address] [place], [address] Eosinophil percentageOrdered By: Sheeba Velasco on 07-21-2024 Eosinophils/100 WBC (Bld) 1.6 % 0-5 [facility] Erythrocyte distribution wid th (RBC) [Ratio]Ordered By: Sheeba Velasco on 07-21-2024 Erythrocyte distribution width (RBC) [Entitic vol] 51.4 fL High 35.1-43.9 [facility] Erythrocyte distribution wid th ratioOrdered By: Sheeba Velasco on 07-21-2024 Erythrocyte distribution width (RBC) [Ratio] 16.3 % High 11.6-14.6 [facility] Erythrocyte distribution wid th standard deviationOrdered By: Sheeba eVlasco on 07-21-2024 Erythrocyte distribution width (RBC) [Ratio] 51.4 fl High 35.1-43.9 [facility] GFR/1.73 sq M.predicted marian g non-blacks MDRD (S/P/Bld) [Vol rate/Area]Ordered By: Sheeba Velasco on 07-21-2024 Estimated GFR (MDRD) Non-Af Amer 68 >60 [facility] Comment on above: mL/min/1.73m2 CKD-EP I Creatinine Equation (2020) Glomerular filtration rate ( GFR) estimation/1.73 sq m using serum, plasma, or whole bOrdered By: Sheeba Velasco on 07-21-2024 GFR/1.73 sq M.predicted among non-blacks MDRD (S/P/Bld) [Vol rate/Area] 68 mL/min/{1.73_m2} >60 [facility] Comment on above: mL/min/1.73m2 CKD-EP I Creatinine Equation (2020) Hematocrit Auto (Bld) [Volum e fraction]Ordered By: Sheeba Velasco on 07-21-2024 Hematocrit (Bld) [Volume fraction] 37.0 % 37-47 [facility] Hemoglobin measurementOrdere d By: Sheeba Velasco on 07-21-2024 Hemoglobin (Bld) [Mass/Vol] 10.9 g/dL Low 12.0-15.0 [facility] Immature granulocytes/100 WB C Auto (Bld)Ordered By: Sheeba Velasco on 07-21-2024 Immature granulocytes/100 WBC (Bld) 0.400 % 0.0-0.9 [facility] Comment on above: IG% - Immature Granu locytes (promyelocytes, myelocytes and metamyelocytes) > 1% indicates that a LEFT SHIFT is Present. Laboratory - Chemistry and C hemistry - challengeOrdered By: Sheeba Velasco on 07-21-2024 AST [Catalytic activity/Vol] 20 U/L <32 [facility] Lymphocytes Auto (Unsp spec) [#/Vol]Ordered By: Sheeba Velasco on 07-21-2024 Lymphocytes (Bld) [#/Vol] 1.92 10*3/uL 0.83-4.51 [facility] Lymphocytes/100 WBC Auto (Un sp spec)Ordered By: Sheeba Velasco on 07-21-2024 Lymphocytes/100 WBC (Bld) 34.1 % 19-41 [facility] MCV (mean corpuscular volume ) determinationOrdered By: Sheeba Velasco on 07-21-2024 MCV (RBC) [Entitic vol] 88.1 fL 81-99 [facility] Mean corpuscular hemoglobin (MCH) determinationOrdered By: Sheeba Velasco on 07-21-2024 MCH (RBC) [Entitic mass] 26.0 pg Low 27.0-32.0 [facility] Mean corpuscular hemoglobin concentration (MCHC) determinationOrdered By: Sheeba Velasco on 07-21-2024 MCHC (RBC) [Mass/Vol] 29.5 g/dL Low 32-36 [facility] Mean platelet volume determi nationOrdered By: Sheeba Velasco on 07-21-2024 Platelet mean volume (Bld) [Entitic vol] 10.0 fL 6.2-12.0 [facility] Monocyte percentageOrdered B y: Sheeba Velasco on 07-21-2024 Monocytes/100 WBC (Bld) 9.4 % 0-10 [facility] Neutrophil percentageOrdered By: Sheeba Velasco on 07-21-2024 Neutrophils/100 WBC (Bld) 53.8 % 47-70 [facility] Nucleated red blood cell per centageOrdered By: Sheeba Velasco on 07-21-2024 Nucleated RBC/100 WBC (Bld) [Ratio] 0 % 0-5 [facility] Platelet countOrdered By: Tatiana Velasco on 07-21-2024 Platelets (Bld) [#/Vol] 266 10*3/uL 150-450 [facility] Potassium (Unsp spec) [Mass/ Vol]Ordered By: Sheeba Velasco on 07-21-2024 Potassium [Moles/Vol] 3.7 mmol/L 3.3-5.1 [facility] Potassium measurement (mass/ volume)Ordered By: Sheeba Velasco on 07-21-2024 Potassium (Unsp spec) [Mass/Vol] 3.7 mmol/L 3.3-5.1 [facility] RBC Auto (Bld) [#/Vol]Ordere d By: Sheeba Velasco on 07-21-2024 RBC (Bld) [#/Vol] 4.20 10*6/uL 4.2-5.4 [facility] Serum creatinine measurement (mass/volume)Ordered By: Sheeba Velasco on 07-21-2024 Creatinine [Mass/Vol] 0.90 mg/dL 0.70-1.20 [facility] Serum globulin measurementOr dered By: Sheeba Velasco on 07-21-2024 Globulin (S) [Mass/Vol] 3.4 g/dL 2.2-4.2 [facility] Serum glucose measurement (m ass/volume)Ordered By: Sheeba Velasco on 07-21-2024 Glucose [Mass/Vol] 117 mg/dL High 70-99 [facility] Serum or plasma alanine cano otransferase (ALT) measurementOrdered By: Sheeba Velasco on 07-21-2024 ALT [Catalytic activity/Vol] 13 U/L <35 [facility] Serum or plasma albumin barbara urement (mass/volume)Ordered By: Sheeba Velasco on 07-21-2024 Albumin [Mass/Vol] 3.7 g/dL 3.4-4.8 [facility] Serum or plasma albumin/glob ulin mass ratioOrdered By: Sheeba Velasco on 07-21-2024 Albumin/Globulin [Mass ratio] 1.1 {ratio} 0.9-2.4 [facility] Serum or plasma alkaline paulino sphatase measurementOrdered By: Sheeba Velasco on 07-21-2024 ALP [Catalytic activity/Vol] 88 U/L 35-104 [facility] Serum or plasma calcium barbara urement (mass/volume)Ordered By: Sheeba Velasco on 07-21-2024 Calcium [Mass/Vol] 9.2 mg/dL 7.6-11.0 [facility] Serum or plasma urea nitroge n measurement (mass/volume)Ordered By: Sheeba Velasco on 07-21-2024 Urea nitrogen [Mass/Vol] 13 mg/dL 4-19 [facility] Sodium levelOrdered By: Darrell Velasco on 07-21-2024 Sodium [Moles/Vol] 141 mmol/L 133-145 [facility] Total proteinOrdered By: Josh Velasco on 07-21-2024 Protein [Mass/Vol] 7.1 g/dL 5.9-8.4 [facility] White blood cell (WBC) count Ordered By: Sheeba Velasco on 07-21-2024 WBC (Bld) [#/Vol] 5.6 10*3/uL 4.4-11.0 [facility] 12 Lead EKGon 06-28-2024 12 Lead EKG [facility] Cardiovascular Services [address] [place] [address] 12 Lead EKG 06/28/24 1011 MR#: [id number] Acct: [id number] Name: KIKO GODFREY Rep #: [id number] : 1950 74 From: Mario Taveras MD [...] ECG Confirmed by MARIO TAVERAS MD ([id number]), editorial intern KAIDEN CALIXTO ([id number]) on 06/29/2024 8:15:20 AM Referred By: Confirmed By: MARIO TAVERAS MD 06/29/24 0815 Date Mario Taveras MD CC: Dr. Gladis Moralez DO; Dr. Eric Lozano MD Signed [facility] Absolute lymphocyte countOrd ered By: Gladis Moralez on 06-28-2024 Lymphocytes Auto (Unsp spec) [#/Vol] 1.85 10*3/uL 0.83-4.51 [facility] Absolute neutrophil countOrd ered By: Gladis Moralez on 06-28-2024 Neutrophils (Bld) [#/Vol] 7.1 10*3/uL 2.0-7.7 [facility] Anion gap in Serum or Plasma Ordered By: Gladis Moralez on 06-28-2024 Anion gap [Moles/Vol] 12 mmol/L 5-15 [facility] Automated blood erythrocyte countOrdered By: Gladis Moralez on 06-28-2024 RBC (Bld) [#/Vol] 4.15 10*6/uL Low 4.2-5.4 [facility] Comment on above: Performed By: #### L 100.0100, L500.2500 ####[facility] [address] [place], [address] Automated blood hematocrit ( percentage)Ordered By: Gladis Moralez on 06-28-2024 Hematocrit (Bld) [Volume fraction] 36.0 % Low 37-47 [facility] Comment on above: Performed By: #### L 100.0100, L500.2500 ####[facility] [address] [place], [address] Automated lymphocyte count a s percentage of total leukocytesOrdered By: Gladis Moralez on 06-28-2024 Lymphocytes/100 WBC (Bld) 18.4 % Low [facility] Comment on above: Performed By: #### L 100.0100, L500.2500 ####[facility] [address] [place], [address] Lymphocytes/100 WBC Auto (Unsp spec) 18.4 % Low [facility] BUN/creatinine ratioOrdered By: Gladis Moralez on 06-28-2024 Urea nitrogen/Creatinine [Mass ratio] 9.6 mg/mg Low 10- [facility] Basic Metabolic Profile (BMP )on 06-28-2024 BUN/CRE 9.6 RATIO Low 01-31 [facility] Comment on above: Performed By: #### L 100.0100, L500.2500 ####[facility] [address] [place], [address] Basophil percentageOrdered B y: Gladis Moralez on 06-28-2024 Basophils/100 WBC (Bld) 0.6 % Normal 0-1 [facility] Comment on above: Performed By: #### L 100.0100, L500.2500 ####[facility] [address] [place], [address] CBC W/Diff, Automatedon 06-12 Absolute Lymph 1.85 X10 3/uL Normal 0.83-4.51 [facility] Comment on above: Performed By: #### L 100.0100, L500.2500 ####[facility] [address] [place], [address] Absolute Neut 7.1 X10 3/uL Normal 2.0-7.7 [facility] Comment on above: Performed By: #### L 100.0100, L500.2500 ####[facility] [address] [place], [address] IG% 0.800 Normal 0.0-0.9 [facility] Comment on above: Result Comment: IG% - Immature Granulocytes (promyelocytes, myelocytes and metamyelocytes) > 1% indicates that a LEFT SHIFT is Present. Performed By: #### L 100.0100, L500.2500 ####[facility] [address] [place], [address] Nucleated RBC (Bld) [#/Vol] 0 10*3/uL Normal 0-5 [facility] Comment on above: Performed By: #### L 100.0100, L500.2500 ####[facility] [address] [place], [address] RDW SD 50.1 fl High 35.1-43.9 [facility] Comment on above: Performed By: #### L 100.0100, L500.2500 ####[facility] [address] [place], [address] Carbon dioxide, total [Moles /volume] in Central venous bloodOrdered By: Gladis Moralez on 06-28-2024 CO2 [Moles/Vol] 22.8 mmol/L 21.0-32.0 [facility] Chest PA and Lateralon 06-28 Chest PA and Lateral [facility] Imaging Services [address] [facility] [place] [address] Chest PA and Lateral MR#: [id number] Acct: [id number] Name: KIKO GODFREY Rep #: [id number] : 1950 F 74 From: Mira Albert MD PCP: Dr. Eric Lozano MD Status: PRE ER Study: Chest PA and Lateral Date of Exam: 06/28/24 Exam# [id number] Ordering Dr: Gladis Moralez DO PROCEDURE: CHEST [...] 2. Additional description as above. Reading Location: [facility] CC: Dr. Gladis Moralez DO; Dr. Eric Lozano MD Wildlife Conservationist: Signed [facility] Chloride assayOrdered By: Ghanshyam Moralez on 06-28-2024 Chloride [Moles/Vol] 108 mmol/L 98-108 [facility] Emergency Department Summary on 06-28-2024 Emergency Department Summary [facility] Medical Records Department [address] [facility] [place] [address] Emergency Department Summary 06/28/24 MR#: [id number] Acct: [id number] Name: KIKO GODFREY Rep #: [id number] : 1950 74 From: Gladis Moralez DO [...] complaints or concerns reported at this time. [facility] Medical History Anxiety and depression Schizophrenia Rheumatoid [...] Physical Exam (more content not included)... [facility] Eosinophil percentageOrdered By: Gladis Moralez on 06-28-2024 Eosinophils/100 WBC (Bld) 0.7 % Normal 0-5 [facility] Comment on above: Performed By: #### L 100.0100, L500.2500 ####[facility] [address] [place], [place], [address] Erythrocyte distribution wid th ratioOrdered By: Gladis Moralez on 06-28-2024 Erythrocyte distribution width (RBC) [Ratio] 15.9 % High 11.6-14.6 [facility] Comment on above: Performed By: #### L 100.0100, L500.2500 ####[facility] [address] [place], [place], [address] Erythrocyte distribution wid th standard deviationOrdered By: Gladis Moralez on 06-28-2024 Erythrocyte distribution width (RBC) [Entitic vol] 50.1 fL High 35.1-43.9 [facility] Erythrocyte distribution width (RBC) [Ratio] 50.1 fl High 35.1-43.9 [facility] Estimation of creatinine jennifer aranceOrdered By: Gladis Moralez on 06-28-2024 Estimated Creatinine Clearance Calc 75.76 ml/min 50-250 [facility] GFR/1.73 sq M.predicted marian g non-blacks MDRD (S/P/Bld) [Vol rate/Area]Ordered By: Gladis Moralez on 06-28-2024 Estimated GFR (MDRD) Non-Af Amer 77 >60 [facility] Comment on above: mL/min/1.73m2 CKD-EP I Creatinine Equation (2020) Glomerular filtration rate ( GFR) estimation/1.73 sq m using serum, plasma, or whole bOrdered By: Gladis Moralez on 06-28-2024 GFR/1.73 sq M.predicted among non-blacks MDRD (S/P/Bld) [Vol rate/Area] 77 mL/min/{1.73_m2} >60 [facility] Comment on above: mL/min/1.73m2 CKD-EP I Creatinine Equation (2020) Hemoglobin measurementOrdere d By: Gladis Moralez on 06-28-2024 Hemoglobin (Bld) [Mass/Vol] 10.8 g/dL Low 12.0-15.0 [facility] Comment on above: Performed By: #### L 100.0100, L500.2500 ####[facility] [address] [facility] [place], [place], [address] Immature granulocytes/100 WB C Auto (Bld)Ordered By: Gladis Moralez on 06-28-2024 Immature granulocytes/100 WBC (Bld) 0.800 % 0.0-0.9 [facility] Comment on above: IG% - Immature Granu locytes (promyelocytes, myelocytes and metamyelocytes) > 1% indicates that a LEFT SHIFT is Present. Lymphocytes Auto (Unsp spec) [#/Vol]Ordered By: Gladis Moralez on 06-28-2024 Lymphocytes (Bld) [#/Vol] 1.85 10*3/uL 0.83-4.51 [facility] MCV (mean corpuscular volume ) determinationOrdered By: Gladis Moralez on 06-28-2024 MCV (RBC) [Entitic vol] 86.7 fL Normal 81-99 [facility] Comment on above: Performed By: #### L 100.0100, L500.2500 ####[facility] [address] [facility] [place], [address] Mean corpuscular hemoglobin (MCH) determinationOrdered By: Gladis Moralez on 06-28-2024 MCH (RBC) [Entitic mass] 26.0 pg Low 27.0-32.0 [facility] Comment on above: Performed By: #### L 100.0100, L500.2500 ####[facility] [address] [place], [address] Mean corpuscular hemoglobin concentration (MCHC) determinationOrdered By: Gladis Moralez on 06-28-2024 MCHC (RBC) [Mass/Vol] 30.0 g/dL Low 32-36 [facility] Comment on above: Performed By: #### L 100.0100, L500.2500 ####[facility] [address] [place], [address] Mean platelet volume determi nationOrdered By: Gladis Moralez on 06-28-2024 Platelet mean volume (Bld) [Entitic vol] 10.1 fL Normal 6.2-12.0 [facility] Comment on above: Performed By: #### L 100.0100, L500.2500 ####[facility] [address] [place], [address] Monocyte percentageOrdered B y: Gladis Moralez on 06-28-2024 Monocytes/100 WBC (Bld) 9.0 % Normal 0-10 [facility] Comment on above: Performed By: #### L 100.0100, L500.2500 ####[facility] [address] [place], [address] Neutrophil percentageOrdered By: Gladis Moralez on 06-28-2024 Neutrophils/100 WBC (Bld) 70.5 % High 47-70 [facility] Comment on above: Performed By: #### L 100.0100, L500.2500 ####[facility] [address] [place], [address] Nucleated red blood cell per centageOrdered By: Gladis Moralez on 06-28-2024 Nucleated RBC/100 WBC (Bld) [Ratio] 0 % 0-5 [facility] Platelet countOrdered By: Ghanshyam Moralez on 06-28-2024 Platelets (Bld) [#/Vol] 241 10*3/uL Normal 150-450 [facility] Comment on above: Performed By: #### L 100.0100, L500.2500 ####[facility] [address] [place], [address] Potassium (Unsp spec) [Mass/ Vol]Ordered By: Gladis Moralez on 06-28-2024 Potassium [Moles/Vol] 3.2 mmol/L Low 3.3-5.1 [facility] Potassium measurement (mass/ volume)Ordered By: Gladis Moralez on 06-28-2024 Potassium (Unsp spec) [Mass/Vol] 3.2 mmol/L Low 3.3-5.1 [facility] Serum creatinine measurement (mass/volume)Ordered By: Gladis Moralez on 06-28-2024 Creatinine [Mass/Vol] 0.81 mg/dL 0.70-1.20 [facility] Serum glucose measurement (m ass/volume)Ordered By: Gladis Moralez on 06-28-2024 Glucose [Mass/Vol] 98 mg/dL 70-99 [facility] Serum or plasma calcium barbara urement (mass/volume)Ordered By: Gladis Moralez on 06-28-2024 Calcium [Mass/Vol] 8.6 mg/dL 7.6-11.0 [facility] Serum or plasma urea nitroge n measurement (mass/volume)Ordered By: Gladis Moralez on 06-28-2024 Urea nitrogen [Mass/Vol] 8 mg/dL Normal 4-19 [facility] Comment on above: Performed By: #### L 100.0100, L500.2500 ####[facility] [address] [place], [address] Sodium levelOrdered By: Camilo Moralez on 06-28-2024 Sodium [Moles/Vol] 143 mmol/L 133-145 [facility] White blood cell (WBC) count Ordered By: Gladis Moralez on 06-28-2024 WBC (Bld) [#/Vol] 10.1 10*3/uL Normal 4.4-11.0 [facility] Comment on above: Performed By: #### L 100.0100, L500.2500 ####[facility] [address] [place], [address] Chest PA and Lateralon 06-22 Chest PA and Lateral [facility] Imaging Services [address] [place] [address] Chest PA and Lateral MR#: [id number] Acct: [id number] Name: KIKO GODFREY Rep #: [id number] : 1950 F 74 From: Mira Antonio MD PCP: Dr. Eric Lozano MD Status: DEP AMB Study: Chest PA and Lateral Date of Exam: 06/22/24 Exam# [id number] Ordering Dr: Eric Lozano MD EXAM: XR [...] Lateral IMPRESSION: Suggestion of COPD. [facility] CC: Dr. Eric Lozano MD Wildlife Conservationist: Signed [facility] CNOVon 06-06-2024 CNOV Office Visit (UCWSTR ) -------- KAIKIKO Ivan ([id number]) 1950 F Date Time Provider Department 06/06/24 9:15 AM LYNN BRAXTON WSTR During your visit today, we recorded the following information about you: Temperature Pulse Respiration Blood pressure 98 degrees 74/minute 20/minute 154/78 Weight 95.8 kg Lynn Braxton APRLORI 06/06/2024 9:19 AM Signed This note was created using [employer]. Subjective Kiko Godfrey is a 74 year old female. HPI Patient presents today for 2 weeks of sinus pain pressure, chest congestion, runny nose and rhinorrhea. Denies any recent fevers. She was seen here about 10 days ago and diagnosed with viral illness with a negative chest x-ray and has been using Tessalon Perles and other ddrm-juu-tpexfpn treatments with no relief of symptoms. She [...] 875 MG-POTASSIUM CLAVULANATE 125 MG TABLET Lynn JabaridebrabenjaOLIVIA.BLOOD BANK CREDIT CLERK Allergies As of Date: 06/06/2024 Noted Allergy [...] 06/22/2007 CHRONIC (more content not included)... Normal [facility] CNOVon 05-26-2024 CNOV Office Visit (UCWSTR ) -------- KIKO GODFREY ([id number]) 1950 F Date Time Provider Department 05/26/24 10:30 AM MIRA VALENCIA [facility] During your visit today, we recorded the following information about you: Temperature Pulse Respiration Blood pressure 99.7 degrees 79/minute 20/minute 140/68 Weight 95.4 kg Mira Valencia PA-C 05/26/2024 11:42 AM Signed This note was created using [employer]. Subjective Kiko Love Hayleydebra is a 74 [...] Diagnosis:Viral bronchitis [J20.8] Order(s):XR CHEST 2V FRONTAL/LAT [8654426] Order #: [id number]. #:[id number] predniSONE (DELTASONE) 20 mg tabletTake 1 [...] use and (more content not included)... Normal [facility] XR CHEST 2V FRONTAL/LATon XR CHEST 2V [...] thoracic spine. IMPRESSION: No acute radiographic abnormality. Wildlife Conservationist: LISA Transcribe Date/Time: May 26 2024 10:32A Dictated by : THEO MAN MD This examination was interpreted and the report reviewed and electronically signed by: THEO MAN MD on May 26 2024 10:32AM EST [id number] Normal [facility] XR Chest PA and Lateralon IMPRESSION: No acute radiographic abnormality. Wildlife Conservationist: [facility] Transcribe Date/Time: May 26 2024 10:32A [...] spine. DIVISION OF RADIOLOGY Provider, Shine shukla [place] - 05/26/2024 * * *Final Report* * [...] spine. IMPRESSION IMPRESSION: No acute radiographic abnormality. Wildlife Conservationist: [facility] Transcribe Date/Time: May 26 2024 10:32A Dictated by : THEO MAN MD This examination was interpreted and the report reviewed and electronically signed by: THEO MAN MD on May 26 2024 10:32AM EST [facility] Radiology Study observation (narrative) [facility] XR Chest PA and LateralOrder ed By: [facility] Provider on 05-26-2024 [facility] Absolute neutrophil countOrd ered By: Sheeba Velasco on 04-28-2024 Neutrophils (Bld) [#/Vol] 2.1 10*3/uL 2.0-7.7 [facility] Albumin to globulin ratioOrd ered By: Sheeba Vealsco on 04-28-2024 Albumin/Globulin [Mass ratio] 0.8 {ratio} Low 0.9-2.4 [facility] Basophil percentageOrdered B y: Sheeba Velasco on 04-28-2024 Basophils/100 WBC (Bld) 0.7 % 0-1 [facility] Bilirubin, totalOrdered By: Sheeba Velasco on 04-28-2024 Bilirubin [Mass/Vol] 0.40 mg/dL 0.20-1.00 [facility] Comment on above: For patients on eltr ombopag therapy, use of Dimension [place] TBIL is not recommended. Blood urea nitrogen (BUN)/cr eatinine ratioOrdered By: Sheeba Velasco on 04-28-2024 Urea nitrogen/Creatinine [Mass ratio] 9.6 mg/mg Low 10-20 [facility] CBC W/Diff, Automatedon 04-14 Absolute Lymph 1.38 X10 3/uL Normal 0.83-4.51 [facility] Comment on above: Performed By: #### L 500.4050, L100.0100 #### [facility] [address] [place], [address] Absolute Neut 2.1 X10 3/uL Normal 2.0-7.7 [facility] Comment on above: Performed By: #### L 500.4050, L100.0100 #### [facility] [address] [place], [address] Basophils/100 WBC (Bld) 0.7 % Normal 0-1 [facility] Comment on above: Performed By: #### L 500.4050, L100.0100 #### [facility] [address] [place], [address] Eosinophils/100 WBC (Bld) 1.7 % Normal 0-5 [facility] Comment on above: Performed By: #### L 500.4050, L100.0100 #### [facility] [address] [place], [address] Erythrocyte distribution width (RBC) [Ratio] 15.8 % High 11.6-14.6 [facility] Comment on above: Performed By: #### L 500.4050, L100.0100 #### [facility] [address] [place], [address] Hematocrit (Bld) [Volume fraction] 37.4 % Normal 37-47 [facility] Comment on above: Performed By: #### L 500.4050, L100.0100 #### [facility] [address] [place], [address] Hemoglobin (Bld) [Mass/Vol] 11.2 g/dL Low 12.0-15.0 [facility] Comment on above: Performed By: #### L 500.4050, L100.0100 #### [facility] [address] [place], [address] IG% 0.200 Normal 0.0-0.9 [facility] Comment on above: Result Comment: IG% - Immature Granulocytes (promyelocytes, myelocytes and metamyelocytes) > 1% indicates that a LEFT SHIFT is Present. Performed By: #### L 500.4050, L100.0100 #### [facility] [address] [place], [address] Lymphocytes/100 WBC (Bld) 33.3 % Normal 19-41 [facility] Comment on above: Performed By: #### L 500.4050, L100.0100 #### [facility] [address] [place], [address] MCH (RBC) [Entitic mass] 26.5 pg Low 27.0-32.0 [facility] Comment on above: Performed By: #### L 500.4050, L100.0100 #### [facility] [address] [place], [address] MCHC (RBC) [Mass/Vol] 29.9 g/dL Low 32-36 [facility] Comment on above: Performed By: #### L 500.4050, L100.0100 #### [facility] [address] [place], [address] MCV (RBC) [Entitic vol] 88.4 fL Normal 81-99 [facility] Comment on above: Performed By: #### L 500.4050, L100.0100 #### [facility] [address] [place], [address] Monocytes/100 WBC (Bld) 13.5 % High 0-10 [facility] Comment on above: Performed By: #### L 500.4050, L100.0100 #### [facility] [address] [place], [address] Neutrophils/100 WBC (Bld) 50.6 % Normal 47-70 [facility] Comment on above: Performed By: #### L 500.4050, L100.0100 #### [facility] [address] [place], [address] Nucleated RBC (Bld) [#/Vol] 0 10*3/uL Normal 0-5 [facility] Comment on above: Performed By: #### L 500.4050, L100.0100 #### [facility] [address] [place], [address] Platelet mean volume (Bld) [Entitic vol] 10.3 fL Normal 6.2-12.0 [facility] Comment on above: Performed By: #### L 500.4050, L100.0100 #### [facility] [address] [place], [address] Platelets (Bld) [#/Vol] 219 10*3/uL Normal 150-450 [facility] Comment on above: Performed By: #### L 500.4050, L100.0100 #### [facility] [address] [place], [address] RBC (Bld) [#/Vol] 4.23 10*6/uL Normal 4.2-5.4 [facility] Comment on above: Performed By: #### L 500.4050, L100.0100 #### [facility] [address] [place], [address] RDW SD 50.3 fl High 35.1-43.9 [facility] Comment on above: Performed By: #### L 500.4050, L100.0100 #### [facility] [address] [place], [address] WBC (Bld) [#/Vol] 4.2 10*3/uL Low 4.4-11.0 [facility] Comment on above: Performed By: #### L 500.4050, L100.0100 #### [facility] [address] [place], [address] Carbon dioxide measurementOr dered By: Sheeba Velasco on 04-28-2024 CO2 [Moles/Vol] 26.0 mmol/L 21.0-32.0 [facility] Chloride measurementOrdered By: Sheeba Velasco on 04-28-2024 Chloride [Moles/Vol] 110 mmol/L High 98-107 [facility] Comprehensive Metabolic Prof ilon 04-28-2024 Albumin [Mass/Vol] 3.2 g/dL Normal 3.2-5.0 [facility] Comment on above: Performed By: #### L 500.4050, L100.0100 #### [facility] [address] [place], [address] Albumin/Globulin [Mass ratio] 0.8 {ratio} Low 0.9-2.4 [facility] Comment on above: Performed By: #### L 500.4050, L100.0100 #### [facility] [address] [place], [address] ALK P 81 U/L Normal 45-117 [facility] Comment on above: Performed By: #### L 500.4050, L100.0100 #### [facility] [address] [place], [address] ALT [Catalytic activity/Vol] 14 U/L Normal 13-56 [facility] Comment on above: Performed By: #### L 500.4050, L100.0100 #### [facility] [address] [place], [address] AST [Catalytic activity/Vol] 19 U/L Normal 15-37 [facility] Comment on above: Performed By: #### L 500.4050, L100.0100 #### [facility] [address] [place], [address] Bilirubin [Mass/Vol] 0.40 mg/dL Normal 0.20-1.00 [facility] Comment on above: Result Comment: For patients on eltrombopag therapy, use of Dimension [place] TBIL is not recommended. Performed By: #### L 500.4050, L100.0100 #### [facility] [address] [place], [address] BUN/CRE 9.6 RATIO Low 10-20 [facility] Comment on above: Performed By: #### L 500.4050, L100.0100 #### [facility] [address] [place], [address] CA,Total 9.9 mg/dL Normal 8.5-10.1 [facility] Comment on above: Performed By: #### L 500.4050, L100.0100 #### [facility] [address] [place], [address] Chloride [Moles/Vol] 110 mmol/L High 98-107 [facility] Comment on above: Performed By: #### L 500.4050, L100.0100 #### [facility] [address] [place], [address] CO2 [Moles/Vol] 26.0 mmol/L Normal 21.0-32.0 [facility] Comment on above: Performed By: #### L 500.4050, L100.0100 #### [facility] [address] [place], [address] Creatinine [Mass/Vol] 0.93 mg/dL Normal 0.55-1.02 [facility] Comment on above: Result Comment: The validity of the calculated GFR GFRAA in patients over 70 years has not been determined. Clinical correlation is essential. Performed By: #### L 500.4050, L100.0100 #### [facility] [address] [place], [address] EST GFR - AA 76 mL/min Normal >60 [facility] Comment on above: Result Comment: Afri can Somali GFR Calc Performed By: #### L 500.4050, L100.0100 #### [facility] [address] [place], [address] GAP 6 Normal 5-15 [facility] Comment on above: Performed By: #### L 500.4050, L100.0100 #### [facility] [address] [place], [address] GFR/1.73 sq M.predicted among non-blacks MDRD (S/P/Bld) [Vol rate/Area] 63 mL/min/{1.73_m2} Normal >60 [facility] Comment on above: Result Comment: Non- GFR Calc Performed By: #### L 500.4050, L100.0100 #### [facility] [address] [place], [address] Globulin (S) [Mass/Vol] 3.8 g/dL Normal 2.2-4.2 [facility] Comment on above: Performed By: #### L 500.4050, L100.0100 #### [facility] [address] [place], [address] Glucose [Mass/Vol] 107 mg/dL High 74-106 [facility] Comment on above: Result Comment: Fast ing Glucose result from 100 to 125 mg/dL suggests IMPAIRED HOMEOSTASIS per A.D.A. criteria. Performed By: #### L 500.4050, L100.0100 #### [facility] [address] [place], [address] Potassium [Moles/Vol] 4.0 mmol/L Normal 3.5-5.1 [facility] Comment on above: Performed By: #### L 500.4050, L100.0100 #### [facility] [address] [place], [address] Sodium [Moles/Vol] 142 mmol/L Normal 136-145 [facility] Comment on above: Performed By: #### L 500.4050, L100.0100 #### [facility] [address] [place], [address] T PROT 7.0 g/dL Normal 6.4-8.2 [facility] Comment on above: Performed By: #### L 500.4050, L100.0100 #### [facility] [address] [place], [address] Urea nitrogen [Mass/Vol] 9 mg/dL Normal 7-18 [facility] Comment on above: Performed By: #### L 500.4050, L100.0100 #### [facility] [address] [place], [address] Eosinophil percentageOrdered By: Sheeba Velasco on 04-28-2024 Eosinophils/100 WBC (Bld) 1.7 % 0-5 [facility] Erythrocyte distribution wid th ratioOrdered By: Sheeba Velasco on 04-28-2024 Erythrocyte distribution width (RBC) [Ratio] 15.8 % High 11.6-14.6 [facility] Erythrocyte distribution wid th standard deviationOrdered By: Sheeba Velasco on 04-28-2024 Erythrocyte distribution width (RBC) [Entitic vol] 50.3 fL High 35.1-43.9 [facility] Estimated glomerular filtrat ion rate (GFR) AmericanOrdered By: Sheeba Velasco on 04-28-2024 Estimated GFR (MDRD) Amer 76 mL/min >60 [facility] Comment on above: GFR Calc Glomerular filtration rate ( GFR) estimationOrdered By: Sheeba Velasco on 04-28-2024 Estimated GFR (MDRD) Non-Af Amer 63 mL/min >60 [facility] Comment on above: Non- GFR Calc Glucose measurementOrdered B y: Sheeba Velasco on 04-28-2024 Glucose [Mass/Vol] 107 mg/dL High 74-106 [facility] Comment on above: Fasting Glucose resu lt from 100 to 125 mg/dL suggests IMPAIRED HOMEOSTASIS per A.D.A. criteria. Hematocrit Auto (Bld) [Volum e fraction]Ordered By: Sheebalucie Velasco on 04-28-2024 Hematocrit (Bld) [Volume fraction] 37.4 % 37-47 [facility] Hemoglobin measurementOrdere d By: Sheeba Velasco on 04-28-2024 Hemoglobin (Bld) [Mass/Vol] 11.2 g/dL Low 12.0-15.0 [facility] Immature granulocytes/100 WB C Auto (Bld)Ordered By: Sheeba Velasco on 04-28-2024 Immature granulocytes/100 WBC (Bld) 0.200 % 0.0-0.9 [facility] Comment on above: IG% - Immature Granu locytes (promyelocytes, myelocytes and metamyelocytes) > 1% indicates that a LEFT SHIFT is Present. Laboratory - Chemistry and C hemistry - challengeOrdered By: Sheeba Velasco on 04-28-2024 AST [Catalytic activity/Vol] 19 U/L 15-37 [facility] Lymphocytes Auto (Unsp spec) [#/Vol]Ordered By: Sheeba Velasco on 04-28-2024 Lymphocytes (Bld) [#/Vol] 1.38 10*3/uL 0.83-4.51 [facility] Lymphocytes/100 WBC Auto (Un sp spec)Ordered By: Sheeba Velasco on 04-28-2024 Lymphocytes/100 WBC (Bld) 33.3 % 19-41 [facility] MCV (mean corpuscular volume ) determinationOrdered By: Sheebalucie Velasco on 04-28-2024 MCV (RBC) [Entitic vol] 88.4 fL 81-99 [facility] Mean corpuscular hemoglobin (MCH) determinationOrdered By: Sheeba Velasco on 04-28-2024 MCH (RBC) [Entitic mass] 26.5 pg Low 27.0-32.0 [facility] Mean corpuscular hemoglobin concentration (MCHC) determinationOrdered By: Sheeba Velasco on 04-28-2024 MCHC (RBC) [Mass/Vol] 29.9 g/dL Low 32-36 [facility] Mean platelet volume determi nationOrdered By: Sheeba Velasco on 04-28-2024 Platelet mean volume (Bld) [Entitic vol] 10.3 fL 6.2-12.0 [facility] Monocyte percentageOrdered B y: Shebea Velasco on 04-28-2024 Monocytes/100 WBC (Bld) 13.5 % High 0-10 [facility] Neutrophil percentageOrdered By: Sheeba Velasco on 04-28-2024 Neutrophils/100 WBC (Bld) 50.6 % 47-70 [facility] Nucleated red blood cell per centageOrdered By: Sheeba Velasco on 04-28-2024 Nucleated RBC/100 WBC (Bld) [Ratio] 0 % 0-5 [facility] Platelet countOrdered By: Tatiana Velasco on 04-28-2024 Platelets (Bld) [#/Vol] 219 10*3/uL 150-450 [facility] Potassium measurementOrdered By: Sheeba Velasco on 04-28-2024 Potassium [Moles/Vol] 4.0 mmol/L 3.5-5.1 [facility] RBC Auto (Bld) [#/Vol]Ordere d By: Sheeba Velasco on 04-28-2024 RBC (Bld) [#/Vol] 4.23 10*6/uL 4.2-5.4 [facility] Serum anion gap measurementO rdered By: Sheeba Velasco on 04-28-2024 Anion gap [Moles/Vol] 6 mmol/L - [facility] Serum globulin measurementOr dered By: Sheeba Velasco on 04-28-2024 Globulin (S) [Mass/Vol] 3.8 g/dL 2.2-4.2 [facility] Serum or plasma alanine cano otransferase (ALT) measurementOrdered By: Sheeba Velasco on 04-28-2024 ALT [Catalytic activity/Vol] 14 U/L 13-56 [facility] Serum or plasma albumin barbara urement (mass/volume)Ordered By: Sheeba Velasco on 04-28-2024 Albumin [Mass/Vol] 3.2 g/dL 3.2-5.0 [facility] Serum or plasma alkaline paulino sphatase measurementOrdered By: Sheeba Velasco on 04-28-2024 ALP [Catalytic activity/Vol] 81 U/L 45-117 [facility] Serum or plasma calcium barbara urement (mass/volume)Ordered By: Sheeba Velasco on 04-28-2024 Calcium [Mass/Vol] 9.9 mg/dL 8.5-10.1 [facility] Serum or plasma creatinine m easurement (mass/volume)Ordered By: Sheeba Velasco on 04-28-2024 Creatinine [Mass/Vol] 0.93 mg/dL 0.55-1.02 [facility] Comment on above: The validity of the calculated GFR & GFRAA in patients over 70 years has not been determined. Clinical correlation is essential. Serum or plasma urea nitroge n measurement (mass/volume)Ordered By: Sheeba Velasco on 04-28-2024 Urea nitrogen [Mass/Vol] 9 mg/dL 7-18 [facility] Sodium levelOrdered By: Darrell Velasco on 04-28-2024 Sodium [Moles/Vol] 142 mmol/L 136-145 [facility] Total proteinOrdered By: Josh Velasco on 04-28-2024 Protein [Mass/Vol] 7.0 g/dL 6.4-8.2 [facility] White blood cell (WBC) count Ordered By: Sheeba Velasco on 04-28-2024 WBC (Bld) [#/Vol] 4.2 10*3/uL Low 4.4-11.0 [facility] 12 Lead EKGon 03-31-2024 12 Lead EKG [facility] [address] [place] [address] 12 Lead EKG 03/31/24 0801 MR#: [id number] Acct: [id number] Name: KIKO GODFREY Rep #: [id number] : 1950 74 From: Mario Taveras MD Attending Dr: Dr. Sheri Lamb DO Status: ADM I NO Ordering Dr: Yazan Brito DO Date: 03/31/24 Location: [facility] Sex: F C Admitted: 03/31/24 Test Reason [...] Abnormal ECG Confirmed by NITIN BERRIOS, MARIO ([id number]), editorial intern GRACE COHN ([id number]) on 04/01/2024 10:57:52 AM Referred By: Alisha Confirmed By: MARIO TAVERAS MD 04/01/24 1057 Date Mario Taveras MD CC: Dr. Eric Lozano MD; Dr. Sheri Lamb DO; Dr. Yazan Brito DO Signed [facility] Albumin to globulin ratioOrd ered By: Yazan Brito on 03-31-2024 Albumin/Globulin [Mass ratio] 0.7 {ratio} Low 0.9-2.4 [facility] Bilirubin, totalOrdered By: Yazan Brito on 03-31-2024 Bilirubin [Mass/Vol] 0.20 mg/dL 0.20-1.00 [facility] Comment on above: For patients on eltr ombopag therapy, use of Dimension [place] TBIL is not recommended. Blood urea nitrogen (BUN)/cr eatinine ratioOrdered By: Yazan Brito on 03-31-2024 Urea nitrogen/Creatinine [Mass ratio] 13.9 mg/mg 10-20 [facility] CBC-Complete Blood Cnt No Di ffon 03-31-2024 Erythrocyte distribution width (RBC) [Ratio] 15.4 % High 11.6-14.6 [facility] Comment on above: Performed By: #### L 100.0500, L500.4050, L501.4020 ####[facility] [address] [place], [address] Hematocrit (Bld) [Volume fraction] 36.1 % Low 37-47 [facility] Comment on above: Performed By: #### L 100.0500, L500.4050, L501.4020 ####[facility] [address] [place], [address] Hemoglobin (Bld) [Mass/Vol] 11.2 g/dL Low 12.0-15.0 [facility] Comment on above: Performed By: #### L 100.0500, L500.4050, L501.4020 ####[facility] [address] [place], [address] MCH (RBC) [Entitic mass] 26.9 pg Low 27.0-32.0 [facility] Comment on above: Performed By: #### L 100.0500, L500.4050, L501.4020 ####[facility] [address] [place], [address] MCHC (RBC) [Mass/Vol] 31.0 g/dL Low 32-36 [facility] Comment on above: Performed By: #### L 100.0500, L500.4050, L501.4020 ####[facility] [address] [place], [address] MCV (RBC) [Entitic vol] 86.8 fL Normal 81-99 [facility] Comment on above: Performed By: #### L 100.0500, L500.4050, L501.4020 ####[facility] [address] [place], [address] Platelet mean volume (Bld) [Entitic vol] 10.2 fL Normal 6.2-12.0 [facility] Comment on above: Performed By: #### L 100.0500, L500.4050, L501.4020 ####[facility] [address] [place], [address] Platelets (Bld) [#/Vol] 272 10*3/uL Normal 150-450 [facility] Comment on above: Performed By: #### L 100.0500, L500.4050, L501.4020 ####[facility] [address] [place], [address] RBC (Bld) [#/Vol] 4.16 10*6/uL Low 4.2-5.4 [facility] Comment on above: Performed By: #### L 100.0500, L500.4050, L501.4020 ####[facility] [address] [place], [address] RDW SD 48.0 fl High 35.1-43.9 [facility] Comment on above: Performed By: #### L 100.0500, L500.4050, L501.4020 ####[facility] [address] [place], [address] WBC (Bld) [#/Vol] 6.2 10*3/uL Normal 4.4-11.0 [facility] Comment on above: Performed By: #### L 100.0500, L500.4050, L501.4020 ####[facility] [address] [place], [address] CTA Chest W/WO Contraston CTA Chest W/WO Contrast [facility] Imaging Services [address] [place] [address] CTA Chest W/WO Contrast MR#: [id number] Acct: [id number] Name: LEATHAMARYANAJOEYPATRIZIA RODRIGUEZS Rep #: [id number] : 1950 F 74 From: Craig sampson MD PCP: Dr. Eric Lozano MD Status: REG ER Study: CTA Chest W/WO Contrast Date of Exam: 03/31/24 Exam# [id number] Ordering Dr: Yazan Brito DO [id number] STUDY: CTA CHEST WITH CONTRAST REASON FOR [...] Eric Lozano MD; Dr. Yazan Brito DO Wildlife Conservationist: Signed [facility] Carbon dioxide measurementOr dered By: Yazan Brito on 03-31-2024 CO2 [Moles/Vol] 27.0 mmol/L 21.0-32.0 [facility] Chest PA and Lateralon 03-31 Chest PA and Lateral [facility] Imaging Services [address] [place] [address] Chest PA and Lateral MR#: [id number] Acct: [id number] Name: KIKO GODFREY Rep #: [id number] : 1950 F 74 From: Craig sampson MD PCP: Dr. Eric Lozano MD Status: [facility] Study: Chest PA and Lateral Date of Exam: 03/31/24 Exam# [id number] Ordering Dr: Yazan Brito DO [id number] STUDY: X-RAY CHEST REASON FOR EXAM: Female, [...] Eric Lozano MD; Dr. Yazan Brito DO Wildlife Conservationist: Signed [facility] Chloride measurementOrdered By: Yazan Brito on 03-31-2024 Chloride [Moles/Vol] 110 mmol/L High 98-107 [facility] Comprehensive Metabolic Prof ilon 03-31-2024 Albumin [Mass/Vol] 3.1 g/dL Low 3.2-5.0 [facility] Comment on above: Order Comment: 'TROP ' Serial specimen #1, #2 or #3: 1 Performed By: #### L 100.0500, L500.4050, L501.4020 ####[facility] [address] [place], [address] Albumin/Globulin [Mass ratio] 0.7 {ratio} Low 0.9-2.4 [facility] Comment on above: Order Comment: 'TROP ' Serial specimen #1, #2 or #3: 1 Performed By: #### L 100.0500, L500.4050, L501.4020 ####[facility] [address] [place], [address] ALK P 81 U/L Normal 45-117 [facility] Comment on above: Order Comment: 'TROP ' Serial specimen #1, #2 or #3: 1 Performed By: #### L 100.0500, L500.4050, L501.4020 ####[facility] [address] [place], [address] ALT [Catalytic activity/Vol] 14 U/L Normal 13-56 [facility] Comment on above: Order Comment: 'TROP ' Serial specimen #1, #2 or #3: 1 Performed By: #### L 100.0500, L500.4050, L501.4020 ####[facility] [address] [place], [address] AST [Catalytic activity/Vol] 14 U/L Low 15-37 [facility] Comment on above: Order Comment: 'TROP ' Serial specimen #1, #2 or #3: 1 Performed By: #### L 100.0500, L500.4050, L501.4020 ####[facility] [address] [place], [address] Bilirubin [Mass/Vol] 0.20 mg/dL Normal 0.20-1.00 [facility] Comment on above: Order Comment: 'TROP ' Serial specimen #1, #2 or #3: 1 Result Comment: For patients on eltrombopag therapy, use of Dimension [place] TBIL is not recommended. Performed By: #### L 100.0500, L500.4050, L501.4020 ####[facility] [address] [place], [address] BUN/CRE 13.9 RATIO Normal 10-20 [facility] Comment on above: Order Comment: 'TROP ' Serial specimen #1, #2 or #3: 1 Performed By: #### L 100.0500, L500.4050, L501.4020 ####[facility] [address] [place], [address] CA,Total 9.3 mg/dL Normal 8.5-10.1 [facility] Comment on above: Order Comment: 'TROP ' Serial specimen #1, #2 or #3: 1 Performed By: #### L 100.0500, L500.4050, L501.4020 ####[facility] [address] [place], [address] Chloride [Moles/Vol] 110 mmol/L High 98-107 [facility] Comment on above: Order Comment: 'TROP ' Serial specimen #1, #2 or #3: 1 Performed By: #### L 100.0500, L500.4050, L501.4020 ####[facility] [address] [place], [address] CO2 [Moles/Vol] 27.0 mmol/L Normal 21.0-32.0 [facility] Comment on above: Order Comment: 'TROP ' Serial specimen #1, #2 or #3: 1 Performed By: #### L 100.0500, L500.4050, L501.4020 ####[facility] [address] [place], [address] Creatinine [Mass/Vol] 0.86 mg/dL Normal 0.55-1.02 [facility] Comment on above: Order Comment: 'TROP ' Serial specimen #1, #2 or #3: 1 Result Comment: The validity of the calculated GFR GFRAA in patients over 70 years has not been determined. Clinical correlation is essential. Performed By: #### L 100.0500, L500.4050, L501.4020 ####[facility] [address] [place], [address] ECRCL 70.56 ml/min [facility] Comment on above: Order Comment: 'TROP ' Serial specimen #1, #2 or #3: 1 Performed By: #### L 100.0500, L500.4050, L501.4020 ####[facility] [address] [place], [address] EST GFR - AA 83 mL/min Normal >60 [facility] Comment on above: Order Comment: 'TROP ' Serial specimen #1, #2 or #3: 1 Result Comment: Afri can Somali GFR Calc Performed By: #### L 100.0500, L500.4050, L501.4020 ####[facility] [address] [place], [address] GAP 4 Low 5-15 [facility] Comment on above: Order Comment: 'TROP ' Serial specimen #1, #2 or #3: 1 Performed By: #### L 100.0500, L500.4050, L501.4020 ####[facility] [address] [place], [address] GFR/1.73 sq M.predicted among non-blacks MDRD (S/P/Bld) [Vol rate/Area] 69 mL/min/{1.73_m2} Normal >60 [facility] Comment on above: Order Comment: 'TROP ' Serial specimen #1, #2 or #3: 1 Result Comment: Non- GFR Calc Performed By: #### L 100.0500, L500.4050, L501.4020 ####[facility] [address] [place], [address] Globulin (S) [Mass/Vol] 4.5 g/dL High 2.2-4.2 [facility] Comment on above: Order Comment: 'TROP ' Serial specimen #1, #2 or #3: 1 Performed By: #### L 100.0500, L500.4050, L501.4020 ####[facility] [address] [place], [address] Glucose [Mass/Vol] 107 mg/dL High 74-106 [facility] Comment on above: Order Comment: 'TROP ' Serial specimen #1, #2 or #3: 1 Result Comment: Fast ing Glucose result from 100 to 125 mg/dL suggests IMPAIRED HOMEOSTASIS per A.D.A. criteria. Performed By: #### L 100.0500, L500.4050, L501.4020 ####[facility] [address] [place], [address] Potassium [Moles/Vol] 3.2 mmol/L Low 3.5-5.1 [facility] Comment on above: Order Comment: 'TROP ' Serial specimen #1, #2 or #3: 1 Performed By: #### L 100.0500, L500.4050, L501.4020 ####[facility] [address] [place], [place], [address] Sodium [Moles/Vol] 141 mmol/L Normal 136-145 [facility] Comment on above: Order Comment: 'TROP ' Serial specimen #1, #2 or #3: 1 Performed By: #### L 100.0500, L500.4050, L501.4020 ####[facility] [address] [place], [address] T PROT 7.6 g/dL Normal 6.4-8.2 [facility] Comment on above: Order Comment: 'TROP ' Serial specimen #1, #2 or #3: 1 Performed By: #### L 100.0500, L500.4050, L501.4020 ####[facility] [address] [place], [address] Urea nitrogen [Mass/Vol] 12 mg/dL Normal 7-18 [facility] Comment on above: Order Comment: 'TROP ' Serial specimen #1, #2 or #3: 1 Performed By: #### L 100.0500, L500.4050, L501.4020 ####[facility] [address] [place], [place], [address] Emergency Department Summary on 03-31-2024 Emergency Department Summary [facility] Medical Records Department [address] [place] [address] Emergency Department Summary 03/31/24 MR#: [id number] Acct: [id number] Name: KIKO GODFREY Rep #: [id number] : 1950 74 From: Yazan Brito DO PCP: Dr. Eric Lozano MD Status:ADM EMILIANO Location: [address] History of Present Illness Chief Complaint: [...] peritoneal signs, (more content not included)... [facility] Erythrocyte distribution wid th ratioOrdered By: Yazan Brito on 03-31-2024 Erythrocyte distribution width (RBC) [Ratio] 15.4 % High 11.6-14.6 [facility] Erythrocyte distribution wid th standard deviationOrdered By: Yazan Brito on 03-31-2024 Erythrocyte distribution width (RBC) [Entitic vol] 48.0 fL High 35.1-43.9 [facility] Estimated glomerular filtrat ion rate (GFR) AmericanOrdered By: Yazan Brito on 03-31-2024 Estimated GFR (MDRD) Amer 83 mL/min >60 [facility] Comment on above: GFR Calc Estimation of creatinine jennifre aranceOrdered By: Yazan Brito on 03-31-2024 Estimated Creatinine Clearance Calc 70.56 ml/min [facility] Glomerular filtration rate ( GFR) estimationOrdered By: Yazan Brito on 03-31-2024 Estimated GFR (MDRD) Non-Af Amer 69 mL/min >60 [facility] Comment on above: Non- GFR Calc Glucose measurementOrdered B y: Yazan Brito on 03-31-2024 Glucose [Mass/Vol] 107 mg/dL High 74-106 [facility] Comment on above: Fasting Glucose resu lt from 100 to 125 mg/dL suggests IMPAIRED HOMEOSTASIS per A.D.A. criteria. H AND P Exam - [facility] 03-31-2024 H&P Exam - Hospitalist [facility] Medical Records Department [address] [place] [address] H P Exam - Hospitalist 03/31/24 1434 MR#: [id number] Acct: [id number] Name: KIKO GODFREY Rep #: [id number] : 1950 74 From: Eric Peace DO PCP: Dr. Eric Lozano MD Status:ADM EMILIANO Location: [place] [address] HPI - General General Date of Admission: [...] She is history of a remote smoking [facility] Medical History Anxiety and depression Schizophrenia [...] Air 12/ (more content not included)... [facility] Hematocrit Auto (Bld) [Volum e fraction]Ordered By: Yazan Brito on 03-31-2024 Hematocrit (Bld) [Volume fraction] 36.1 % Low 37-47 [facility] Hemoglobin measurementOrdere d By: Yazan Brito on 03-31-2024 Hemoglobin (Bld) [Mass/Vol] 11.2 g/dL Low 12.0-15.0 [facility] Influenza virus A and B and SARS-CoV-2 (COVID-19) and Respiratory syncytial virus RNAOrdered By: Yazan Brito on 03-31-2024 SARS-CoV-2 (COVID-19) RNA JANA+probe Ql (Unsp spec) [facility] L501.4020on 03-31-2024 TROPONIN-I HS 14 pg/mL Normal 3.0-54.0 [facility] Comment on above: Order Comment: 'TROP ' Serial specimen #1, #2 or #3: 1 Result Comment: Plea se Note: New Test Units and Gender Specific Reference Ranges. For more information see Policy Stat Procedure [place] High Sensitivity Troponin (TNIH) and attachments. Performed By: #### L 100.0500, L500.4050, L501.4020 ####[facility] [id number] [facility] [place]. [place], [place], [id number] Laboratory - Chemistry and C hemistry - challengeOrdered By: Yazan Brito on 03-31-2024 AST [Catalytic activity/Vol] 14 U/L Low 15-[address] [facility] [address] Lung Screeningon 03-31-[address] Lung Screening [facility] [address] [place], [place] [id number] Low Dose CT Lung Screening MR#: [id number] Acct: [id number] Name: KIKO GODFREY Rep #: [id number] : 1950 F 74 From: Craig sampson MD PCP: Dr. Eric Lozano MD Status: [facility] Study: Low Dose CT Lung Screening Date of Exam: 03/31 Exam# [id number] Ordering Dr: Yudy Angel MAINTAINER CENTRAL OFFICE MAINTAINER CENTRAL OFFICE-C [id number] STUDY: LOW DOSE CT LUNG CANCER SCREENING [...] CC: AHSAN Angel; Dr. Eric Lozano MD Wildlife Conservationist: Signed [facility] M100.678on 03-31-2024 M100.678 Pending SARS-CoV-2 (COVID 19) Negative INFLUENZA A Negative INFLUENZA B Negative RSV PCR Negative Normal [facility] Comment on above: Performed By: #### M 100.210 ####[facility] [id number] [place], [address] MCV (mean corpuscular volume ) determinationOrdered By: Yazan Brito on 03-31-2024 MCV (RBC) [Entitic vol] 86.8 fL 81-99 [facility] Mean corpuscular hemoglobin (MCH) determinationOrdered By: Yazan Brito on 03-31-2024 MCH (RBC) [Entitic mass] 26.9 pg Low 27.0-32.0 [facility] Mean corpuscular hemoglobin concentration (MCHC) determinationOrdered By: Yazan Brito on 03-31-2024 MCHC (RBC) [Mass/Vol] 31.0 g/dL Low 32-36 [facility] Mean platelet volume determi nationOrdered By: Yazan Brito on 03-31-2024 Platelet mean volume (Bld) [Entitic vol] 10.2 fL 6.2-12.0 [facility] Platelet countOrdered By: Lalitha Brito on 03-31-2024 Platelets (Bld) [#/Vol] 272 10*3/uL 150-450 [facility] Potassium measurementOrdered By: Yazan Brito on 03-31-2024 Potassium [Moles/Vol] 3.2 mmol/L Low 3.5-5.1 [facility] RBC Auto (Bld) [#/Vol]Ordere d By: Yazan Brito on 03-31-2024 RBC (Bld) [#/Vol] 4.16 10*6/uL Low 4.2-5.4 [facility] Serum anion gap measurementO rdered By: Yazan Brito on 03-31-2024 Anion gap [Moles/Vol] 4 mmol/L Low 5-15 [facility] Serum globulin measurementOr dered By: Yazan Brito on 03-31-2024 Globulin (S) [Mass/Vol] 4.5 g/dL High 2.2-4.2 [facility] Serum or plasma alanine cano otransferase (ALT) measurementOrdered By: Yazan Brito on 03-31-2024 ALT [Catalytic activity/Vol] 14 U/L 13-56 [facility] Serum or plasma albumin barbara urement (mass/volume)Ordered By: Yazan Brito on 03-31-2024 Albumin [Mass/Vol] 3.1 g/dL Low 3.2-5.0 [facility] Serum or plasma alkaline paulino sphatase measurementOrdered By: Yazan Brito on 03-31-2024 ALP [Catalytic activity/Vol] 81 U/L 45-117 [facility] Serum or plasma calcium barbara urement (mass/volume)Ordered By: Yazan Brito on 03-31-2024 Calcium [Mass/Vol] 9.3 mg/dL 8.5-10.1 [facility] Serum or plasma creatinine m easurement (mass/volume)Ordered By: Yazan Brito on 03-31-2024 Creatinine [Mass/Vol] 0.86 mg/dL 0.55-1.02 [facility] Comment on above: The validity of the calculated GFR & GFRAA in patients over 70 years has not been determined. Clinical correlation is essential. Serum or plasma urea nitroge n measurement (mass/volume)Ordered By: Yazan Brito on 03-31-2024 Urea nitrogen [Mass/Vol] 12 mg/dL 7-18 [facility] Sodium levelOrdered By: Mariano Brito on 03-31-2024 Sodium [Moles/Vol] 141 mmol/L 136-145 [facility] Total proteinOrdered By: Osmar Brito on 03-31-2024 Protein [Mass/Vol] 7.6 g/dL 6.4-8.2 [facility] Troponin IOrdered By: Yazan Brito on 03-31-2024 Troponin I High Sensitivity 14 pg/mL 3.0-54.0 [facility] Comment on above: Please Note: New Janay t Units and Gender Specific Reference Ranges. For more information see Policy Stat Procedure [place] High Sensitivity Troponin (TNIH) and attachments. White blood cell (WBC) count Ordered By: Yazan Brito on 03-31-2024 WBC (Bld) [#/Vol] 6.2 10*3/uL 4.4-11.0 [facility] 03-29-2024 CNOV Office Visit (UCWSTR ) -------- KIKO GODFREY ([id number]) 1950 F Date Time Provider Department 03/29/24 2:30 PM MIRA [facility] During your visit today, we recorded the following information about you: Temperature Pulse Respiration Blood pressure 97.7 degrees 70/minute 16/minute 132/74 Weight 93.1 kg Mira Valencia PA-C 03/29/2024 2:33 PM Signed This note was created using [employer]. Subjective Kiko Ramirezbethanieamarjit is a 74 year old female. HPI Review of Systems Objective BP 132/74 Pulse 70 Temp 36.5 ?C (97.7 ?F) Resp 16 Wt 93.1 kg (205 lb 4 oz) SpO2 99% Physical Exam Assessment and Plan Mira Valencia PA-C 03/29/2024 2:33 PM Signed This note was created using [employer]. Subjective Kiko Godfrey is a 74 year [...] (PROVENTIL HF (more content not included)... Normal [facility] XR Chest PA and Lateralon IMPRESSION: Interval increase in size of nodular opacity in the inferior retrosternal space. A dedicated CT chest study may be obtained for further evaluation. Wildlife Conservationist[facility] Transcribe Date/Time: Oct 13 2023 9:49A Dictated by : PATSY LEVY MD This examination was interpreted and the report reviewed and electronically signed by: PATSY LEVY MD on Oct 13 2023 9:51AM [facility] DIVISION OF RADIOLOGY * * *Final Report* [...] degenerative changes. DIVISION OF RADIOLOGY Provider, [facility] - 10/13/2023 * * *Final [...] study may be obtained for further evaluation. Wildlife Conservationist[facility] Transcribe Date/Time: Oct 13 2023 9:49A Dictated by : PATSY LEVY MD This examination was interpreted and the report reviewed and electronically signed by: PATSY LEVY MD on Oct 13 2023 9:51AM EST [facility] Radiology Study observation (narrative) [facility] XR Chest PA and LateralOrder ed By: [facility] Provider on 10-13-2023 [facility] Absolute lymphocyte countOrd ered By: Sheeba Velasco on 08-14-2023 Lymphocytes Auto (Unsp spec) [#/Vol] 0.70 10*3/uL 0.83-4.51 [facility] Automated lymphocyte count a s percentage of total leukocytesOrdered By: Sheeba Velasco on 08-14-2023 Lymphocytes/100 WBC Auto (Unsp spec) 13.5 % 19-41 [facility] Basophil percentageOrdered B y: Sheeba Velasco on 08-14-2023 Basophils/100 WBC (Bld) 1.0 % 0-1 [facility] Bilirubin [Mass/Vol] 0.40 mg/dL 0.20-1.00 [facility] Comment on above: For patients on eltr ombopag therapy, use of Dimension [place] TBIL is not recommended. Chloride [Moles/Vol] 103 mmol/L 98-107 [facility] Eosinophils/100 WBC (Bld) 0.4 % 0-5 [facility] Glucose [Mass/Vol] 105 mg/dL 74-106 [facility] Comment on above: Fasting Glucose resu lt from 100 to 125 mg/dL suggests IMPAIRED HOMEOSTASIS per A.D.A. criteria. Hemoglobin (Bld) [Mass/Vol] 11.3 g/dL 12.0-15.0 [facility] Monocytes/100 WBC (Bld) 8.9 % 0-10 [facility] Neutrophils (Bld) [#/Vol] 3.9 10*3/uL 2.0-7.7 [facility] Neutrophils/100 WBC (Bld) 76.0 % 47-70 [facility] Potassium [Moles/Vol] 4.1 mmol/L 3.5-5.1 [facility] Protein [Mass/Vol] 7.4 g/dL 6.4-8.2 [facility] Sodium [Moles/Vol] 134 mmol/L 136-145 [facility] WBC (Bld) [#/Vol] 5.2 10*3/uL 4.4-11.0 [facility] Determination of erythrocyte mean corpuscular volume (MCV)Ordered By: Sheeba Velasco on 08-14-2023 MCV (RBC) [Entitic vol] 89.5 fL 81-99 [facility] Erythrocyte distribution wid th ratioOrdered By: Sheeba Velasco on 08-14-2023 Erythrocyte distribution width (RBC) [Ratio] 15.0 % 11.6-14.6 [facility] Erythrocyte distribution wid th standard deviationOrdered By: Sheeba Velasco on 08-14-2023 Erythrocyte distribution width (RBC) [Entitic vol] 48.7 fL 35.1-43.9 [facility] Hematocrit Auto (Bld) [Volum e fraction]Ordered By: Sheeba Velasco on 08-14-2023 Hematocrit (Bld) [Volume fraction] 37.5 % 37-47 [facility] Immature granulocytes/100 WB C Auto (Bld)Ordered By: Sheeba Velasco on 08-14-2023 Immature granulocytes/100 WBC (Bld) 0.200 % 0.0-0.9 [facility] Comment on above: IG% - Immature Granu locytes (promyelocytes, myelocytes and metamyelocytes) > 1% indicates that a LEFT SHIFT is Present. Laboratory - Chemistry and C hemistry - challengeOrdered By: Sheeba Velasco on 08-14-2023 Albumin/Globulin [Mass ratio] 0.6 {ratio} 0.9-2.4 [facility] ALP [Catalytic activity/Vol] 66 U/L 45-117 [facility] ALT [Catalytic activity/Vol] 11 U/L 13-56 [facility] CO2 [Moles/Vol] 26.0 mmol/L 21.0-32.0 [facility] Globulin (S) [Mass/Vol] 4.6 g/dL 2.2-4.2 [facility] Urea nitrogen/Creatinine [Mass ratio] 12.9 mg/mg 10-20 [facility] Laboratory - Hematology and Cell countsOrdered By: Sheeba Velasco on 08-14-2023 MCH (RBC) [Entitic mass] 27.0 pg 27.0-32.0 [facility] MCHC (RBC) [Mass/Vol] 30.1 g/dL 32-36 [facility] Nucleated RBC/100 WBC (Bld) [Ratio] 0 % 0-5 [facility] Platelet mean volume (Bld) [Entitic vol] 10.5 fL 6.2-12.0 [facility] Platelets (Bld) [#/Vol] 285 10*3/uL 150-450 [facility] No Panel InformationOrdered By: Sheeba Velasco on 08-14-2023 Estimated GFR (MDRD) Amer 77 mL/min >60 [facility] Comment on above: GFR Calc Estimated GFR (MDRD) Non-Af Amer 63 mL/min >60 [facility] Comment on above: Non- GFR Calc RBC Auto (Bld) [#/Vol]Ordere d By: Sheeba Velasco on 08-14-2023 RBC (Bld) [#/Vol] 4.19 10*6/uL 4.2-5.4 [facility] Serum or plasma calcium barbara urement (mass/volume)Ordered By: Sheeba Velasco on 08-14-2023 Calcium [Mass/Vol] 9.5 mg/dL 8.5-10.1 [facility] Serum or plasma creatinine m easurement (mass/volume)Ordered By: Sheeba Velasco on 08-14-2023 Creatinine [Mass/Vol] 0.93 mg/dL 0.55-1.02 [facility] Comment on above: The validity of the calculated GFR & GFRAA in patients over 70 years has not been determined. Clinical correlation is essential. Serum or plasma urea nitroge n measurement (mass/volume)Ordered By: Sheeba Velasco on 08-14-2023 Urea nitrogen [Mass/Vol] 12 mg/dL 7-18 [facility] Thin prep Papanicolaou smear with manual screeningOrdered By: Sheeba Velasco on 08-14-2023 Thin prep Papanicolaou smear with manual screening 2.8 g/dL 3.2-5.0 [facility] Thin prep Papanicolaou smear with manual screening 16 U/L 15-37 [facility] Thin prep Papanicolaou smear with manual screening 5 5-15 [facility] Basophil percentageOrdered B y: Dmitry Griggs on 07-31-2023 Chloride [Moles/Vol] 105 mmol/L 98-107 [facility] Glucose [Mass/Vol] 95 mg/dL 74-106 [facility] Hemoglobin (Bld) [Mass/Vol] 9.9 g/dL 12.0-15.0 [facility] Potassium [Moles/Vol] 3.8 mmol/L 3.5-5.1 [facility] Comment on above: Slight Hemolysis, Re sult may be falsely increased. Sodium [Moles/Vol] 134 mmol/L 136-145 [facility] WBC (Bld) [#/Vol] 8.1 10*3/uL 4.4-11.0 [facility] Determination of erythrocyte mean corpuscular volume (MCV)Ordered By: Dmitry rGiggs on 07-31-2023 MCV (RBC) [Entitic vol] 89.5 fL 81-99 [facility] Erythrocyte distribution wid th ratioOrdered By: Dmitry Griggs on 07-31-2023 Erythrocyte distribution width (RBC) [Ratio] 14.8 % 11.6-14.6 [facility] Erythrocyte distribution wid th standard deviationOrdered By: Dmitry Griggs on 07-31-2023 Erythrocyte distribution width (RBC) [Entitic vol] 47.8 fL 35.1-43.9 [facility] Hematocrit Auto (Bld) [Volum e fraction]Ordered By: Dmitry Griggs on 07-31-2023 Hematocrit (Bld) [Volume fraction] 32.4 % 37-47 [facility] Laboratory - Chemistry and C hemistry - challengeOrdered By: Dmitry Griggs on 07-31-2023 CO2 [Moles/Vol] 22.0 mmol/L 21.0-32.0 [facility] Urea nitrogen/Creatinine [Mass ratio] 17.5 mg/mg 10-20 [facility] Laboratory - Hematology and Cell countsOrdered By: Dmitry Griggs on 07-31-2023 MCH (RBC) [Entitic mass] 27.3 pg 27.0-32.0 [facility] MCHC (RBC) [Mass/Vol] 30.6 g/dL 32-36 [facility] Platelet mean volume (Bld) [Entitic vol] 11.0 fL 6.2-12.0 [facility] Platelets (Bld) [#/Vol] 201 10*3/uL 150-450 [facility] No Panel InformationOrdered By: Dmitry Griggs on 07-31-2023 Estimated Creatinine Clearance Calc 78.06 ml/min [facility] Estimated GFR (MDRD) Amer 99 mL/min >60 [facility] Comment on above: GFR Calc Estimated GFR (MDRD) Non-Af Amer 82 mL/min >60 [facility] Comment on above: Non- GFR Calc RBC Auto (Bld) [#/Vol]Ordere d By: Dmitry Griggs on 07-31-2023 RBC (Bld) [#/Vol] 3.62 10*6/uL 4.2-5.4 [facility] Serum or plasma calcium barbara urement (mass/volume)Ordered By: Dmitry Griggs on 07-31-2023 Calcium [Mass/Vol] 8.6 mg/dL 8.5-10.1 [facility] Serum or plasma creatinine m easurement (mass/volume)Ordered By: Dmitry Griggs on 07-31-2023 Creatinine [Mass/Vol] 0.74 mg/dL 0.55-1.02 [facility] Comment on above: The validity of the calculated GFR & GFRAA in patients over 70 years has not been determined. Clinical correlation is essential. Serum or plasma urea nitroge n measurement (mass/volume)Ordered By: Dmitry Griggs on 07-31-2023 Urea nitrogen [Mass/Vol] 13 mg/dL 7-18 [facility] Thin prep Papanicolaou smear with manual screeningOrdered By: Dmitry Griggs on 07-31-2023 Thin prep Papanicolaou smear with manual screening 7 5-15 [facility] Activated partial thrombopla stin time (aPTT) in platelet poor plasma by coagulation aOrdered By: Dmitry Griggs on 07-30-2023 aPTT Coag (PPP) [Time] 37.9 s 24.1-36.2 [facility] Absolute lymphocyte countOrd ered By: Kathleen on 07-29-2023 Lymphocytes Auto (Unsp spec) [#/Vol] 1.34 10*3/uL 0.83-4.51 [facility] Automated lymphocyte count a s percentage of total leukocytesOrdered By: White on 07-29-2023 Lymphocytes/100 WBC Auto (Unsp spec) 14.5 % 19-41 [facility] Basophil percentageOrdered B y: on 07-29-2023 Basophils/100 WBC (Bld) 0.4 % 0-1 [facility] Bilirubin [Mass/Vol] 0.40 mg/dL 0.20-1.00 [facility] Comment on above: For patients on eltr ombopag therapy, use of Dimension [place] TBIL is not recommended. Cholesterol [Mass/Vol] 161 mg/dL <200 [facility] Comment on above: <200 mg/dL Desirable 200-240 mg/dL Borderline >240 mg/dL High Risk Eosinophils/100 WBC (Bld) 0.2 % 0-5 [facility] Monocytes/100 WBC (Bld) 9.3 % 0-10 [facility] Neutrophils (Bld) [#/Vol] 6.9 10*3/uL 2.0-7.7 [facility] Neutrophils/100 WBC (Bld) 74.8 % 47-70 [facility] Protein [Mass/Vol] 7.1 g/dL 6.4-8.2 [facility] Triglyceride [Mass/Vol] 94 mg/dL <199 [facility] Comment on above: The drugs N-Acetylcy steine and Metamizole may falsely depress this assay.Serum Triglycerides Reference Interval Normal <150 mg/dL Borderline high 150 - 199 mg/dL High 200 - 499 mg/dL Very High > or = 500 mg/dL Immature granulocytes/100 WB C Auto (Bld)Ordered By: Sophia Wang on 07-29-2023 Immature granulocytes/100 WBC (Bld) 0.800 % 0.0-0.9 [facility] Comment on above: IG% - Immature Granu locytes (promyelocytes, myelocytes and metamyelocytes) > 1% indicates that a LEFT SHIFT is Present. Laboratory - Chemistry and C hemistry - challengeOrdered By: Sophia Wang on 07-29-2023 Albumin/Globulin [Mass ratio] 0.7 {ratio} 0.9-2.4 [facility] ALP [Catalytic activity/Vol] 55 U/L 45-117 [facility] ALT [Catalytic activity/Vol] 10 U/L 13-56 [facility] Cholesterol in HDL [Mass/Vol] 57 mg/dL >40 [facility] Comment on above: The drugs N-Acetylcy steine and Metamizole may falsely depress this assay. Reference Range HDL <40 mg/dL Low HDL Cholesterol HDL >or= 60 mg/dL High HDL Cholesterol Cholesterol in LDL [Mass/Vol] 85 mg/dL 0-130 [facility] Globulin (S) [Mass/Vol] 4.3 g/dL 2.2-4.2 [facility] Laboratory - Hematology and Cell countsOrdered By: Sophia Wang on 07-29-2023 Nucleated RBC/100 WBC (Bld) [Ratio] 0 % 0-5 [facility] No Panel InformationOrdered By: Sophia Wagn on 07-29-2023 VLDL Cholesterol 19 mg/dL 5-40 [facility] Thin prep Papanicolaou smear with manual screeningOrdered By: [facility] Kathleen on 07-29-2023 Thin prep Papanicolaou smear with manual screening 2.8 g/dL 3.2-5.0 [facility] Thin prep Papanicolaou smear with manual screening 19 U/L 15-37 [facility] Absolute lymphocyte countOrd ered By: Eric Grandaabdiaziz on 07-28-2023 Lymphocytes Auto (Unsp spec) [#/Vol] 1.24 10*3/uL 0.83-4.51 [facility] Automated lymphocyte count a s percentage of total leukocytesOrdered By: Eric West on 07-28-2023 Lymphocytes/100 WBC Auto (Unsp spec) 13.0 % 19-41 [facility] Basophil percentageOrdered B y: gold West on 07-28-2023 Basophils/100 WBC (Bld) 0.6 % 0-1 [facility] Chloride [Moles/Vol] 102 mmol/L 98-107 [facility] Eosinophils/100 WBC (Bld) 0.1 % 0-5 [facility] Glucose [Mass/Vol] 140 mg/dL 74-106 [facility] Comment on above: Fasting Glucose resu lt greater than or equal to 126 mg/dL suggests DIABETES MELLITUS per A.D.A. criteria. Hemoglobin (Bld) [Mass/Vol] 12.3 g/dL 12.0-15.0 [facility] Monocytes/100 WBC (Bld) 8.3 % 0-10 [facility] Neutrophils (Bld) [#/Vol] 7.4 10*3/uL 2.0-7.7 [facility] Neutrophils/100 WBC (Bld) 77.4 % 47-70 [facility] Potassium [Moles/Vol] 4.0 mmol/L 3.5-5.1 [facility] Comment on above: Slight Hemolysis, Re sult may be falsely increased. Sodium [Moles/Vol] 137 mmol/L 136-145 [facility] WBC (Bld) [#/Vol] 9.6 10*3/uL 4.4-11.0 [facility] Determination of erythrocyte mean corpuscular volume (MCV)Ordered By: Eric West on 07-28-2023 MCV (RBC) [Entitic vol] 88.6 fL 81-99 [facility] Erythrocyte distribution wid th ratioOrdered By: Eric West on 07-28-2023 Erythrocyte distribution width (RBC) [Ratio] 14.9 % 11.6-14.6 [facility] Erythrocyte distribution wid th standard deviationOrdered By: Eric West on 07-28-2023 Erythrocyte distribution width (RBC) [Entitic vol] 47.7 fL 35.1-43.9 [facility] Hematocrit Auto (Bld) [Volum e fraction]Ordered By: Eric West on 07-28-2023 Hematocrit (Bld) [Volume fraction] 39.0 % 37-47 [facility] Immature granulocytes/100 WB C Auto (Bld)Ordered By: Eric West on 07-28-2023 Immature granulocytes/100 WBC (Bld) 0.600 % 0.0-0.9 [facility] Comment on above: IG% - Immature Granu locytes (promyelocytes, myelocytes and metamyelocytes) > 1% indicates that a LEFT SHIFT is Present. Laboratory - Chemistry and C hemistry - challengeOrdered By: Eric West on 07-28-2023 CO2 [Moles/Vol] 25.0 mmol/L 21.0-32.0 [facility] Urea nitrogen/Creatinine [Mass ratio] 12.6 mg/mg 10-20 [facility] Laboratory - Chemistry and C hemistry - challengeOrdered By: Sophia Wang on 07-28-2023 Magnesium [Mass/Vol] 2.1 mg/dL 1.6-2.6 [facility] Comment on above: Slight Hemolysis, Re sult may be falsely increased. Natriuretic peptide B (Bld) [Mass/Vol] 662.9 pg/mL 0-100 [facility] Laboratory - CoagulationOrde red By: Eric West on 07-28-2023 INR Coag (Bld) [Relative time] 1.2 {INR} [facility] PT Coag (PPP) [Time] 14.9 s 11.7-14.9 [facility] Laboratory - Hematology and Cell countsOrdered By: Eric West on 07-28-2023 MCH (RBC) [Entitic mass] 28.0 pg 27.0-32.0 [facility] MCHC (RBC) [Mass/Vol] 31.5 g/dL 32-36 [facility] Nucleated RBC/100 WBC (Bld) [Ratio] 0 % 0-5 [facility] Platelet mean volume (Bld) [Entitic vol] 10.3 fL 6.2-12.0 [facility] Platelets (Bld) [#/Vol] 185 10*3/uL 150-450 [facility] No Panel InformationOrdered By: Sophia Wang on 07-28-2023 Troponin I High Sensitivity 1170 pg/mL 3.0-54.0 [facility] Comment on above: Critical Result(s) C alled at: 18:47:52 07/28/2023 by: JIN BROWN TO RHYS. Results read back by same. Please Note: New Test Units and Gender Specific Reference Ranges. For more information see Policy Stat Procedure [place] High Sensitivity Troponin (TNIH) and attachments. No Panel InformationOrdered By: Eric West on 07-28-2023 Estimated Creatinine Clearance Calc 62.75 ml/min [facility] Estimated GFR (MDRD) Amer 68 mL/min >60 [facility] Comment on above: GFR Calc Estimated GFR (MDRD) Non-Af Amer 56 mL/min >60 [facility] Comment on above: Non- GFR Calc Troponin I High Sensitivity 1595 pg/mL 3.0-54.0 [facility] Comment on above: Critical Result(s) C alled at: 12:40:00 07/28/2023 by: Ha Grady to Shanell Manley. Results read back by same. Please Note: New Test Units and Gender Specific Reference Ranges. For more information see Policy Stat Procedure [place] High Sensitivity Troponin (TNIH) and attachments. RBC Auto (Bld) [#/Vol]Ordere d By: Eric West on 07-28-2023 RBC (Bld) [#/Vol] 4.40 10*6/uL 4.2-5.4 [facility] Serum or plasma calcium barbara urement (mass/volume)Ordered By: Eric West on 07-28-2023 Calcium [Mass/Vol] 9.4 mg/dL 8.5-10.1 [facility] Serum or plasma creatinine m easurement (mass/volume)Ordered By: Eric West on 07-28-2023 Creatinine [Mass/Vol] 1.03 mg/dL 0.55-1.02 [facility] Comment on above: The validity of the calculated GFR & GFRAA in patients over 70 years has not been determined. Clinical correlation is essential. Serum or plasma urea nitroge n measurement (mass/volume)Ordered By: Eric West on 07-28-2023 Urea nitrogen [Mass/Vol] 13 mg/dL 7-18 [facility] Thin prep Papanicolaou smear with manual screeningOrdered By: Eric West on 07-28-2023 Thin prep Papanicolaou smear with manual screening 10 - [facility] Absolute lymphocyte countOrd ered By: Sheeba Velasco on 04-21-2023 Lymphocytes Auto (Unsp spec) [#/Vol] 0.93 10*3/uL 0.83-4.51 [facility] Basophil percentageOrdered B y: Sheeba Velasco on 04-21-2023 Basophils/100 WBC (Bld) 0.4 % 0-1 [facility] Bilirubin [Mass/Vol] 0.30 mg/dL 0.20-1.00 [facility] Comment on above: For patients on eltr ombopag therapy, use of Dimension [place] TBIL is not recommended. Chloride [Moles/Vol] 109 mmol/L 98-107 [facility] Eosinophils/100 WBC (Bld) 1.4 % 0-5 [facility] Glucose [Mass/Vol] 104 mg/dL 74-106 [facility] Comment on above: Fasting Glucose resu lt from 100 to 125 mg/dL suggests IMPAIRED HOMEOSTASIS per A.D.A. criteria. Neutrophils (Bld) [#/Vol] 5.1 10*3/uL 2.0-7.7 [facility] Neutrophils/100 WBC (Bld) 73.7 % 47-70 [facility] Potassium [Moles/Vol] 3.8 mmol/L 3.5-5.1 [facility] Protein [Mass/Vol] 7.3 g/dL 6.4-8.2 [facility] Sodium [Moles/Vol] 139 mmol/L 136-145 [facility] WBC (Bld) [#/Vol] 6.9 10*3/uL 4.4-11.0 [facility] Blood erythrocytes count (nu mber/volume)Ordered By: Sheeba Velasco on 04-21-2023 RBC (Bld) [#/Vol] 4.27 10*6/uL 4.2-5.4 [facility] Blood hemoglobin measurement (mass/volume)Ordered By: Sheeba Velasco on 04-21-2023 Hemoglobin (Bld) [Mass/Vol] 11.9 g/dL 12.0-15.0 [facility] Blood lymphocytes/100 leukoc ytesOrdered By: Sheeba Velasco on 04-21-2023 Lymphocytes/100 WBC (Bld) 13.4 % 19-41 [facility] Blood monocytes/100 leukocyt esOrdered By: Sheeba Velasco on 04-21-2023 Monocytes/100 WBC (Bld) 10.8 % 0-10 [facility] Blood platelet mean volumeOr dered By: Sheeba Velasco on 04-21-2023 Platelet mean volume (Bld) [Entitic vol] 10.9 fL 6.2-12.0 [facility] Determination of erythrocyte mean corpuscular volume (MCV)Ordered By: Sheeba Velasco on 04-21-2023 MCV (RBC) [Entitic vol] 90.9 fL 81-99 [facility] Hematocrit Auto (Bld) [Volum e fraction]Ordered By: Sheeba Velasco on 04-21-2023 Hematocrit (Bld) [Volume fraction] 38.8 % 37-47 [facility] - Chemistry and C hemistry - challengeOrdered By: Sheeba Velasco on 04-21-2023 ALP [Catalytic activity/Vol] 79 U/L 45-117 [facility] ALT [Catalytic activity/Vol] 19 U/L 13-56 [facility] CO2 [Moles/Vol] 24.0 mmol/L 21.0-32.0 [facility] Globulin (S) [Mass/Vol] 4.0 g/dL 2.2-4.2 [facility] Urea nitrogen/Creatinine [Mass ratio] 16.0 mg/mg 10-20 [facility] - Hematology and Cell countsOrdered By: Sheeba Velasco on 04-21-2023 Erythrocyte distribution width (RBC) [Entitic vol] 49.5 fL 35.1-43.9 [facility] Erythrocyte distribution width (RBC) [Ratio] 15.5 % 11.6-14.6 [facility] Immature granulocytes/100 WBC (Bld) 0.300 % 0.0-0.9 [facility] Comment on above: IG% - Immature Granu locytes (promyelocytes, myelocytes and metamyelocytes) > 1% indicates that a LEFT SHIFT is Present. MCH (RBC) [Entitic mass] 27.9 pg 27.0-32.0 [facility] Nucleated RBC/100 WBC (Bld) [Ratio] 0 % 0-5 [facility] MCHC Auto (RBC) [Mass/Vol]Or dered By: Sheeba Velasco on 04-21-2023 MCHC (RBC) [Mass/Vol] 30.7 g/dL 32-36 [facility] No Panel InformationOrdered By: Sheeba Velasco on 04-21-2023 Estimated GFR (MDRD) Amer 76 mL/min >60 [facility] Comment on above: GFR Calc Estimated GFR (MDRD) Non-Af Amer 63 mL/min >60 [facility] Comment on above: Non- GFR Calc Platelets bldOrdered By: Josh Velasco on 04-21-2023 Platelets (Bld) [#/Vol] 203 10*3/uL 150-450 [facility] Serum or plasma albumin barbara urement (mass/volume)Ordered By: Sheeba Velasco on 04-21-2023 Albumin [Mass/Vol] 3.3 g/dL 3.2-5.0 [facility] Serum or plasma albumin/glob ulin mass ratioOrdered By: Sheeba Velasco on 04-21-2023 Albumin/Globulin [Mass ratio] 0.8 {ratio} 0.9-2.4 [facility] Serum or plasma calcium barbara urement (mass/volume)Ordered By: Sheeba Velasco on 04-21-2023 Calcium [Mass/Vol] 9.0 mg/dL 8.5-10.1 [facility] Serum or plasma creatinine m easurement (mass/volume)Ordered By: Sheeba Velasco on 04-21-2023 Creatinine [Mass/Vol] 0.94 mg/dL 0.55-1.02 [facility] Comment on above: The validity of the calculated GFR & GFRAA in patients over 70 years has not been determined. Clinical correlation is essential. Serum or plasma urea nitroge n measurement (mass/volume)Ordered By: Sheeba Velasco on 04-21-2023 Urea nitrogen [Mass/Vol] 15 mg/dL 7-18 [facility] Thin prep Papanicolaou smear with manual screeningOrdered By: Sheeba Velasco on 04-21-2023 Thin prep Papanicolaou smear with manual screening 16 U/L 15-37 [facility] Thin prep Papanicolaou smear with manual screening 6 5-15 [facility] Absolute lymphocyte countOrd ered By: Sheeba Velasco on 02-12-2023 Lymphocytes Auto (Unsp spec) [#/Vol] 0.93 10*3/uL 0.83-4.51 [facility] Basophil percentageOrdered B y: Sheeba Velasco on 02-12-2023 Basophils/100 WBC (Bld) 0.7 % 0-1 [facility] Bilirubin [Mass/Vol] 0.40 mg/dL 0.20-1.00 [facility] Comment on above: For patients on eltr ombopag therapy, use of Dimension [place] TBIL is not recommended. Chloride [Moles/Vol] 109 mmol/L 98-107 [facility] Eosinophils/100 WBC (Bld) 1.8 % 0-5 [facility] Glucose [Mass/Vol] 110 mg/dL 74-106 [facility] Comment on above: Fasting Glucose resu lt from 100 to 125 mg/dL suggests IMPAIRED HOMEOSTASIS per A.D.A. criteria. Neutrophils (Bld) [#/Vol] 2.8 10*3/uL 2.0-7.7 [facility] Neutrophils/100 WBC (Bld) 64.3 % 47-70 [facility] Potassium [Moles/Vol] 3.9 mmol/L 3.5-5.1 [facility] Protein [Mass/Vol] 6.9 g/dL 6.4-8.2 [facility] Sodium [Moles/Vol] 140 mmol/L 136-145 [facility] WBC (Bld) [#/Vol] 4.4 10*3/uL 4.4-11.0 [facility] Blood erythrocytes count (nu mber/volume)Ordered By: Sheeba Velasco on 02-12-2023 RBC (Bld) [#/Vol] 4.03 10*6/uL 4.2-5.4 [facility] Blood hemoglobin measurement (mass/volume)Ordered By: Sheeba Velasco on 02-12-2023 Hemoglobin (Bld) [Mass/Vol] 10.9 g/dL 12.0-15.0 [facility] Blood lymphocytes/100 leukoc ytesOrdered By: Sheeba Velasco on 02-12-2023 Lymphocytes/100 WBC (Bld) 21.1 % 19-41 [facility] Blood monocytes/100 leukocyt esOrdered By: Sheeba Velasco on 02-12-2023 Monocytes/100 WBC (Bld) 11.6 % 0-10 [facility] Blood platelet mean volumeOr dered By: Sheeba Velasco on 02-12-2023 Platelet mean volume (Bld) [Entitic vol] 11.3 fL 6.2-12.0 [facility] Determination of erythrocyte mean corpuscular volume (MCV)Ordered By: Sheeba Velasco on 02-12-2023 MCV (RBC) [Entitic vol] 92.3 fL 81-99 [facility] Hematocrit Auto (Bld) [Volum e fraction]Ordered By: Sheeba Velasco on 02-12-2023 Hematocrit (Bld) [Volume fraction] 37.2 % 37-47 [facility] - Chemistry and C hemistry - challengeOrdered By: Sheeba Velasco on 02-12-2023 ALP [Catalytic activity/Vol] 73 U/L 45-117 [facility] ALT [Catalytic activity/Vol] 19 U/L 13-56 [facility] CO2 [Moles/Vol] 24.0 mmol/L 21.0-32.0 [facility] Globulin (S) [Mass/Vol] 3.7 g/dL 2.2-4.2 [facility] Urea nitrogen/Creatinine [Mass ratio] 14.8 mg/mg 10-20 [facility] - Hematology and Cell countsOrdered By: Sheeba Velasco on 02-12-2023 Erythrocyte distribution width (RBC) [Entitic vol] 51.5 fL 35.1-43.9 [facility] Erythrocyte distribution width (RBC) [Ratio] 15.5 % 11.6-14.6 [facility] Immature granulocytes/100 WBC (Bld) 0.500 % 0.0-0.9 [facility] Comment on above: IG% - Immature Granu locytes (promyelocytes, myelocytes and metamyelocytes) > 1% indicates that a LEFT SHIFT is Present. MCH (RBC) [Entitic mass] 27.0 pg 27.0-32.0 [facility] Nucleated RBC/100 WBC (Bld) [Ratio] 0 % 0-5 [facility] MCHC Auto (RBC) [Mass/Vol]Or dered By: Sheeba Velasco on 02-12-2023 MCHC (RBC) [Mass/Vol] 29.3 g/dL 32-36 [facility] No Panel InformationOrdered By: Sheeba Velasco on 02-12-2023 Estimated GFR (MDRD) Amer 75 mL/min >60 [facility] Comment on above: GFR Calc Estimated GFR (MDRD) Non-Af Amer 62 mL/min >60 [facility] Comment on above: Non- GFR Calc Platelets bldOrdered By: Josh Velasco on 02-12-2023 Platelets (Bld) [#/Vol] 203 10*3/uL 150-450 [facility] Serum or plasma albumin barbara urement (mass/volume)Ordered By: Sheeba Velasco on 02-12-2023 Albumin [Mass/Vol] 3.2 g/dL 3.2-5.0 [facility] Serum or plasma albumin/glob ulin mass ratioOrdered By: Sheeba Velasco on 02-12-2023 Albumin/Globulin [Mass ratio] 0.9 {ratio} 0.9-2.4 [facility] Serum or plasma calcium barbara urement (mass/volume)Ordered By: Sheeba Velasco on 02-12-2023 Calcium [Mass/Vol] 9.1 mg/dL 8.5-10.1 [facility] Serum or plasma creatinine m easurement (mass/volume)Ordered By: Sheeba Velasco on 02-12-2023 Creatinine [Mass/Vol] 0.95 mg/dL 0.55-1.02 [facility] Comment on above: The validity of the calculated GFR & GFRAA in patients over 70 years has not been determined. Clinical correlation is essential. Serum or plasma urea nitroge n measurement (mass/volume)Ordered By: Sheeba Velasco on 02-12-2023 Urea nitrogen [Mass/Vol] 14 mg/dL 7-18 [facility] Thin prep Papanicolaou smear with manual screeningOrdered By: Sheeba Velasco on 02-12-2023 Thin prep Papanicolaou smear with manual screening 18 U/L 15-37 [facility] Thin prep Papanicolaou smear with manual screening 7 5-15 [facility] XR TOE AP/LAT/OBL RIGHTon [facility] XR Toes - right 3 Viewson IMPRESSION: Proximal and distal phalanx fractures in the second digit. Wildlife Conservationist: LISA Transcribe Date/Time: Jan 29 2023 12:49P Dictated by : PATSY LEVY MD This examination was interpreted and the report reviewed and electronically signed by: PATSY LEVY MD on Jan 29 2023 12:53PM [facility] DIVISION OF RADIOLOGY * * *Final Report* [...] tissue swelling. [facility] * * *Final Report* [...] distal phalanx fractures in the second digit. Wildlife Conservationist: LISA Transcribe Date/Time: Jan 29 2023 12:49P Dictated by : PATSY LEVY MD This examination was interpreted and the report reviewed and electronically signed by: PATSY LEVY MD on Jan 29 2023 12:53PM EST [facility] Radiology Study observation (narrative) [facility] XR Toes - right 3 ViewsOrder ed By: [facility] Provider on 01-29-2023 [facility] Absolute lymphocyte countOrd ered By: Sheeba Velasco on 12-13-2022 Lymphocytes Auto (Unsp spec) [#/Vol] 1.17 10*3/uL 0.83-4.51 [facility] Basophil percentageOrdered B y: Sheeba Velasco on 12-13-2022 Basophils/100 WBC (Bld) 0.8 % 0-1 [facility] Bilirubin [Mass/Vol] 0.30 mg/dL 0.20-1.00 [facility] Comment on above: For patients on eltr ombopag therapy, use of Dimension [place] TBIL is not recommended. Chloride [Moles/Vol] 108 mmol/L 98-107 [facility] Eosinophils/100 WBC (Bld) 2.0 % 0-5 [facility] Glucose [Mass/Vol] 99 mg/dL 74-106 [facility] Neutrophils (Bld) [#/Vol] 2.3 10*3/uL 2.0-7.7 [facility] Neutrophils/100 WBC (Bld) 56.8 % 47-70 [facility] Potassium [Moles/Vol] 3.7 mmol/L 3.5-5.1 [facility] Protein [Mass/Vol] 6.8 g/dL 6.4-8.2 [facility] Sodium [Moles/Vol] 141 mmol/L 136-145 [facility] WBC (Bld) [#/Vol] 4.0 10*3/uL 4.4-11.0 [facility] Blood erythrocytes count (nu mber/volume)Ordered By: Sheeba Velasco on 12-13-2022 RBC (Bld) [#/Vol] 4.30 10*6/uL 4.2-5.4 [facility] Blood hemoglobin measurement (mass/volume)Ordered By: Sheeba Velasco on 12-13-2022 Hemoglobin (Bld) [Mass/Vol] 11.5 g/dL 12.0-15.0 [facility] Blood lymphocytes/100 leukoc ytesOrdered By: Sheeba Velasco on 12-13-2022 Lymphocytes/100 WBC (Bld) 29.3 % 19-41 [facility] Blood monocytes/100 leukocyt esOrdered By: Sheeba Velasco on 12-13-2022 Monocytes/100 WBC (Bld) 10.8 % 0-10 [facility] Blood platelet mean volumeOr dered By: Sheeba Velasco on 12-13-2022 Platelet mean volume (Bld) [Entitic vol] 10.6 fL 6.2-12.0 [facility] Determination of erythrocyte mean corpuscular volume (MCV)Ordered By: Sheeba Velasco on 09-01-2023 MCV (RBC) [Entitic vol] 90.2 fL 81-99 [facility] Hematocrit Auto (Bld) [Volum e fraction]Ordered By: Sheeba Velasco on 12-13-2022 Hematocrit (Bld) [Volume fraction] 38.8 % 37-47 [facility] - Chemistry and C hemistry - challengeOrdered By: Sheeba Velasco on 12-13-2022 ALP [Catalytic activity/Vol] 71 U/L 45-117 [facility] ALT [Catalytic activity/Vol] 15 U/L 13-56 [facility] CO2 [Moles/Vol] 26.0 mmol/L 21.0-32.0 [facility] Globulin (S) [Mass/Vol] 3.6 g/dL 2.2-4.2 [facility] Urea nitrogen/Creatinine [Mass ratio] 9.7 mg/mg 10-20 [facility] - Hematology and Cell countsOrdered By: Sheeba Velasco on 12-13-2022 Erythrocyte distribution width (RBC) [Entitic vol] 51.7 fL 35.1-43.9 [facility] Erythrocyte distribution width (RBC) [Ratio] 15.8 % 11.6-14.6 [facility] Immature granulocytes/100 WBC (Bld) 0.300 % 0.0-0.9 [facility] Comment on above: IG% - Immature Granu locytes (promyelocytes, myelocytes and metamyelocytes) > 1% indicates that a LEFT SHIFT is Present. MCH (RBC) [Entitic mass] 26.7 pg 27.0-32.0 [facility] Nucleated RBC/100 WBC (Bld) [Ratio] 0 % 0-5 [facility] MCHC Auto (RBC) [Mass/Vol]Or dered By: Sheeba Velasco on 12-13-2022 MCHC (RBC) [Mass/Vol] 29.6 g/dL 32-36 [facility] No Panel InformationOrdered By: Sheeba Velasco on 12-13-2022 Estimated GFR (MDRD) Amer 77 mL/min >60 [facility] Comment on above: GFR Calc Estimated GFR (MDRD) Non-Af Amer 64 mL/min >60 [facility] Comment on above: Non- GFR Calc Platelets bldOrdered By: Josh Velasco on 12-13-2022 Platelets (Bld) [#/Vol] 199 10*3/uL 150-450 [facility] Serum or plasma albumin barbara urement (mass/volume)Ordered By: Sheeba Velasco on 12-13-2022 Albumin [Mass/Vol] 3.2 g/dL 3.2-5.0 [facility] Serum or plasma albumin/glob ulin mass ratioOrdered By: Sheeba Velasco on 12-13-2022 Albumin/Globulin [Mass ratio] 0.9 {ratio} 0.9-2.4 [facility] Serum or plasma calcium barbara urement (mass/volume)Ordered By: Sheeba Velasco on 12-13-2022 Calcium [Mass/Vol] 9.0 mg/dL 8.5-10.1 [facility] Serum or plasma creatinine m easurement (mass/volume)Ordered By: Sheeba Velasco on 12-13-2022 Creatinine [Mass/Vol] 0.92 mg/dL 0.55-1.02 [facility] Comment on above: The validity of the calculated GFR & GFRAA in patients over 70 years has not been determined. Clinical correlation is essential. Serum or plasma urea nitroge n measurement (mass/volume)Ordered By: Sheeba Velasco on 12-13-2022 Urea nitrogen [Mass/Vol] 9 mg/dL 7-18 [facility] Thin prep Papanicolaou smear with manual screeningOrdered By: Sheeba Velasco on 12-13-2022 Thin prep Papanicolaou smear with manual screening 15 U/L 15-37 [facility] Thin prep Papanicolaou smear with manual screening 7 5-15 [facility] Absolute lymphocyte countOrd ered By: Sheeba Velasco on 10-03-2022 Lymphocytes Auto (Unsp spec) [#/Vol] 2.36 10*3/uL 0.83-4.51 [facility] Basophil percentageOrdered B y: Sheeba Velasco on 10-03-2022 Basophils/100 WBC (Bld) 0.3 % 0-1 [facility] Bilirubin [Mass/Vol] 0.30 mg/dL 0.20-1.00 [facility] Comment on above: For patients on eltr ombopag therapy, use of Dimension [place] TBIL is not recommended. Chloride [Moles/Vol] 108 mmol/L 98-107 [facility] Eosinophils/100 WBC (Bld) 0.3 % 0-5 [facility] Glucose [Mass/Vol] 88 mg/dL 74-106 [facility] Neutrophils (Bld) [#/Vol] 3.2 10*3/uL 2.0-7.7 [facility] Neutrophils/100 WBC (Bld) 52.1 % 47-70 [facility] Potassium [Moles/Vol] 3.3 mmol/L 3.5-5.1 [facility] Protein [Mass/Vol] 6.9 g/dL 6.4-8.2 [facility] Sodium [Moles/Vol] 141 mmol/L 136-145 [facility] WBC (Bld) [#/Vol] 6.2 10*3/uL 4.4-11.0 [facility] Blood erythrocytes count (nu mber/volume)Ordered By: Sheeba Velasco on 10-03-2022 RBC (Bld) [#/Vol] 4.20 10*6/uL 4.2-5.4 [facility] Blood hemoglobin measurement (mass/volume)Ordered By: Sheeba Velasco on 10-03-2022 Hemoglobin (Bld) [Mass/Vol] 11.0 g/dL 12.0-15.0 [facility] Blood lymphocytes/100 leukoc ytesOrdered By: Sheeba Velasco on 10-03-2022 Lymphocytes/100 WBC (Bld) 38.1 % 19-41 [facility] Blood monocytes/100 leukocyt esOrdered By: Sheeba Velasco on 10-03-2022 Monocytes/100 WBC (Bld) 8.7 % 0-10 [facility] Blood platelet mean volumeOr dered By: Sheeba Velasco on 10-03-2022 Platelet mean volume (Bld) [Entitic vol] 9.6 fL 6.2-12.0 [facility] Determination of erythrocyte mean corpuscular volume (MCV)Ordered By: Sheeba Velasco on 10-03-2022 MCV (RBC) [Entitic vol] 87.4 fL 81-99 [facility] Hematocrit Auto (Bld) [Volum e fraction]Ordered By: Sheeba Velasco on 10-03-2022 Hematocrit (Bld) [Volume fraction] 36.7 % 37-47 [facility] - Chemistry and C hemistry - challengeOrdered By: Sheeba Velasco on 10-03-2022 ALP [Catalytic activity/Vol] 63 U/L 45-117 [facility] ALT [Catalytic activity/Vol] 14 U/L 13-56 [facility] CO2 [Moles/Vol] 25.0 mmol/L 21.0-32.0 [facility] Globulin (S) [Mass/Vol] 3.9 g/dL 2.2-4.2 [facility] Urea nitrogen/Creatinine [Mass ratio] 16.9 mg/mg 10-20 [facility] - Hematology and Cell countsOrdered By: Sheeba Velasco on 10-03-2022 Erythrocyte distribution width (RBC) [Entitic vol] 47.7 fL 35.1-43.9 [facility] Erythrocyte distribution width (RBC) [Ratio] 15.6 % 11.6-14.6 [facility] Immature granulocytes/100 WBC (Bld) 0.500 % 0.0-0.9 [facility] Comment on above: IG% - Immature Granu locytes (promyelocytes, myelocytes and metamyelocytes) > 1% indicates that a LEFT SHIFT is Present. MCH (RBC) [Entitic mass] 26.2 pg 27.0-32.0 [facility] Nucleated RBC/100 WBC (Bld) [Ratio] 0 % 0-5 [facility] MCHC Auto (RBC) [Mass/Vol]Or dered By: Sheeba Velasco on 10-03-2022 MCHC (RBC) [Mass/Vol] 30.0 g/dL 32-36 [facility] No Panel InformationOrdered By: Sheeba Velasco on 10-03-2022 Estimated GFR (MDRD) Amer 88 mL/min >60 [facility] Comment on above: GFR Calc Estimated GFR (MDRD) Non-Af Amer 72 mL/min >60 [facility] Comment on above: Non- GFR Calc Platelets bldOrdered By: Josh Velasco on 10-03-2022 Platelets (Bld) [#/Vol] 232 10*3/uL 150-450 [facility] Serum or plasma albumin barbara urement (mass/volume)Ordered By: Sheeba Velasco on 10-03-2022 Albumin [Mass/Vol] 3.0 g/dL 3.2-5.0 [facility] Serum or plasma albumin/glob ulin mass ratioOrdered By: Sheeba Velasco on 10-03-2022 Albumin/Globulin [Mass ratio] 0.8 {ratio} 0.9-2.4 [facility] Serum or plasma calcium barbara urement (mass/volume)Ordered By: Sheeba Velasco on 10-03-2022 Calcium [Mass/Vol] 9.2 mg/dL 8.5-10.1 [facility] Serum or plasma creatinine m easurement (mass/volume)Ordered By: Sheeba Velasco on 10-03-2022 Creatinine [Mass/Vol] 0.83 mg/dL 0.55-1.02 [facility] Comment on above: The validity of the calculated GFR & GFRAA in patients over 70 years has not been determined. Clinical correlation is essential. Serum or plasma urea nitroge n measurement (mass/volume)Ordered By: Sheeba Velasco on 10-03-2022 Urea nitrogen [Mass/Vol] 14 mg/dL 7-18 [facility] Thin prep Papanicolaou smear with manual screeningOrdered By: Sheeba Velasco on 10-03-2022 Thin prep Papanicolaou smear with manual screening 11 U/L 15-37 [facility] Thin prep Papanicolaou smear with manual screening 8 5-15 [facility] XR CHEST 2V FRONTAL/LATon [facility] XR Chest PA and Lateralon IMPRESSION: No acute radiographic abnormality. Wildlife Conservationist: PSCB Transcribe Date/Time: Sep 26 2022 9:28A Dictated by : VASQUEZ BESS MD This examination was interpreted and the report reviewed and electronically signed by: VASQUEZ BESS MD on Sep 26 2022 9:32AM [facility] [place] DIVISION OF RADIOLOGY * * *Final Report* [...] the thoracic spine. DIVISION OF RADIOLOGY Provider, [facility] - 09/26/2022 * * *Final Report* * [...] spine. IMPRESSION IMPRESSION: No acute radiographic abnormality. Wildlife Conservationist: PSCB Transcribe Date/Time: Sep 26 2022 9:28A Dictated by : VASQUEZ BESS MD This examination was interpreted and the report reviewed and electronically signed by: VASQUEZ BESS MD on Sep 26 2022 9:32AM EST [facility] Radiology Study observation (narrative) [facility] XR Chest PA and LateralOrder ed By: [facility] Provider on 09-26-2022 [facility] Absolute lymphocyte countOrd ered By: Dr. Velasco on 09-05-2022 Lymphocytes Auto (Unsp spec) [#/Vol] 1.04 10*3/uL 0.83-4.51 [facility] Basophil percentageOrdered B y: Dr. Velasco on 09-05-2022 Basophils/100 WBC (Bld) 0.8 % 0-1 [facility] Bilirubin [Mass/Vol] 0.30 mg/dL 0.20-1.00 [facility] Comment on above: For patients on eltr ombopag therapy, use of Dimension [place] TBIL is not recommended. Chloride [Moles/Vol] 109 mmol/L 98-107 [facility] Eosinophils/100 WBC (Bld) 0.8 % 0-5 [facility] Glucose [Mass/Vol] 109 mg/dL 74-106 [facility] Comment on above: Fasting Glucose resu lt from 100 to 125 mg/dL suggests IMPAIRED HOMEOSTASIS per A.D.A. criteria. Neutrophils (Bld) [#/Vol] 2.4 10*3/uL 2.0-7.7 [facility] Neutrophils/100 WBC (Bld) 60.5 % 47-70 [facility] Potassium [Moles/Vol] 3.9 mmol/L 3.5-5.1 [facility] Protein [Mass/Vol] 6.8 g/dL 6.4-8.2 [facility] Sodium [Moles/Vol] 141 mmol/L 136-145 [facility] WBC (Bld) [#/Vol] 4.0 10*3/uL 4.4-11.0 [facility] Blood erythrocytes count (nu mber/volume)Ordered By: Dr. Velasco on 09-05-2022 RBC (Bld) [#/Vol] 4.00 10*6/uL 4.2-5.4 [facility] Blood hemoglobin measurement (mass/volume)Ordered By: Dr. Velasco on 09-05-2022 Hemoglobin (Bld) [Mass/Vol] 10.4 g/dL 12.0-15.0 [facility] Blood lymphocytes/100 leukoc ytesOrdered By: Dr. Velasco on 09-05-2022 Lymphocytes/100 WBC (Bld) 26.1 % 19-41 [facility] Blood monocytes/100 leukocyt esOrdered By: Dr. Velasco on 09-05-2022 Monocytes/100 WBC (Bld) 11.5 % 0-10 [facility] Blood platelet mean volumeOr dered By: Dr. Velasco on 09-05-2022 Platelet mean volume (Bld) [Entitic vol] 11.0 fL 6.2-12.0 [facility] Determination of erythrocyte mean corpuscular volume (MCV)Ordered By: Dr. Velasco on 09-05-2022 MCV (RBC) [Entitic vol] 87.0 fL 81-99 [facility] Hematocrit Auto (Bld) [Volum e fraction]Ordered By: Dr. Velasco on 09-05-2022 Hematocrit (Bld) [Volume fraction] 34.8 % 37-47 [facility] - Chemistry and C hemistry - challengeOrdered By: Dr. Velasco on 09-05-2022 ALP [Catalytic activity/Vol] 69 U/L 45-117 [facility] ALT [Catalytic activity/Vol] 16 U/L 13-56 [facility] CO2 [Moles/Vol] 26.0 mmol/L 21.0-32.0 [facility] Globulin (S) [Mass/Vol] 3.9 g/dL 2.2-4.2 [facility] Urea nitrogen/Creatinine [Mass ratio] 14.3 mg/mg 10-20 [facility] - Hematology and Cell countsOrdered By: Dr. Velasco on 09-05-2022 Erythrocyte distribution width (RBC) [Entitic vol] 46.7 fL 35.1-43.9 [facility] Erythrocyte distribution width (RBC) [Ratio] 14.6 % 11.6-14.6 [facility] Immature granulocytes/100 WBC (Bld) 0.300 % 0.0-0.9 [facility] Comment on above: IG% - Immature Granu locytes (promyelocytes, myelocytes and metamyelocytes) > 1% indicates that a LEFT SHIFT is Present. MCH (RBC) [Entitic mass] 26.0 pg 27.0-32.0 [facility] Nucleated RBC/100 WBC (Bld) [Ratio] 0 % 0-5 [facility] MCHC Auto (RBC) [Mass/Vol]Or dered By: Dr. Velasco on 09-05-2022 MCHC (RBC) [Mass/Vol] 29.9 g/dL 32-36 [facility] No Panel InformationOrdered By: Dr. Velasco on 09-05-2022 Estimated GFR (MDRD) Amer 86 mL/min >60 [facility] Comment on above: GFR Calc Estimated GFR (MDRD) Non-Af Amer 71 mL/min >60 [facility] Comment on above: Non- GFR Calc Platelets bldOrdered By: Dr. Velasco on 09-05-2022 Platelets (Bld) [#/Vol] 205 10*3/uL 150-450 [facility] Serum or plasma albumin barbara urement (mass/volume)Ordered By: Dr. Velasco on 09-05-2022 Albumin [Mass/Vol] 2.9 g/dL 3.2-5.0 [facility] Serum or plasma albumin/glob ulin mass ratioOrdered By: Dr. Velasco on 09-05-2022 Albumin/Globulin [Mass ratio] 0.7 {ratio} 0.9-2.4 [facility] Serum or plasma calcium barbara urement (mass/volume)Ordered By: Dr. Velasco on 09-05-2022 Calcium [Mass/Vol] 9.1 mg/dL 8.5-10.1 [facility] Serum or plasma creatinine m easurement (mass/volume)Ordered By: Dr. Velasco on 09-05-2022 Creatinine [Mass/Vol] 0.84 mg/dL 0.55-1.02 [facility] Comment on above: The validity of the calculated GFR & GFRAA in patients over 70 years has not been determined. Clinical correlation is essential. Serum or plasma urea nitroge n measurement (mass/volume)Ordered By: Dr. Velasco on 09-05-2022 Urea nitrogen [Mass/Vol] 12 mg/dL 7-18 [facility] Thin prep Papanicolaou smear with manual screeningOrdered By: Dr. Velasco on 09-05-2022 Thin prep Papanicolaou smear with manual screening 14 U/L 15-37 [facility] Thin prep Papanicolaou smear with manual screening 6 5-15 [facility] Absolute lymphocyte countOrd ered By: Dr. Lozano on 08-22-2022 Lymphocytes Auto (Unsp spec) [#/Vol] 2.37 10*3/uL 0.83-4.51 [facility] Basophil percentageOrdered B y: Dr. Lozano on 08-22-2022 Basophils/100 WBC (Bld) 0.5 % 0-1 [facility] Bilirubin [Mass/Vol] 0.30 mg/dL 0.20-1.00 [facility] Comment on above: For patients on eltr ombopag therapy, use of Dimension [place] TBIL is not recommended. Chloride [Moles/Vol] 111 mmol/L 98-107 [facility] Eosinophils/100 WBC (Bld) 0.3 % 0-5 [facility] Glucose [Mass/Vol] 92 mg/dL 74-106 [facility] Neutrophils (Bld) [#/Vol] 3.6 10*3/uL 2.0-7.7 [facility] Neutrophils/100 WBC (Bld) 53.5 % 47-70 [facility] Potassium [Moles/Vol] 3.3 mmol/L 3.5-5.1 [facility] Protein [Mass/Vol] 6.7 g/dL 6.4-8.2 [facility] Sodium [Moles/Vol] 144 mmol/L 136-145 [facility] WBC (Bld) [#/Vol] 6.6 10*3/uL 4.4-11.0 [facility] Blood erythrocytes count (nu mber/volume)Ordered By: Dr. Lozano on 08-22-2022 RBC (Bld) [#/Vol] 4.03 10*6/uL 4.2-5.4 [facility] Blood hemoglobin measurement (mass/volume)Ordered By: Dr. Lozano on 08-22-2022 Hemoglobin (Bld) [Mass/Vol] 10.3 g/dL 12.0-15.0 [facility] Blood lymphocytes/100 leukoc ytesOrdered By: Dr. Lozano on 08-22-2022 Lymphocytes/100 WBC (Bld) 35.7 % 19-41 [facility] Blood monocytes/100 leukocyt esOrdered By: Dr. Lozano on 08-22-2022 Monocytes/100 WBC (Bld) 9.5 % 0-10 [facility] Blood platelet mean volumeOr dered By: Dr. Lozano on 08-22-2022 Platelet mean volume (Bld) [Entitic vol] 11.0 fL 6.2-12.0 [facility] Determination of erythrocyte mean corpuscular volume (MCV)Ordered By: Dr. Lozano on 08-22-2022 MCV (RBC) [Entitic vol] 88.6 fL 81-99 [facility] Erythrocyte sedimentation ra teOrdered By: Dr. Lozano on 08-22-2022 ESR (Bld) [Velocity] 25 mm/h 0-30 [facility] Hematocrit Auto (Bld) [Volum e fraction]Ordered By: Dr. Lozano on 08-22-2022 Hematocrit (Bld) [Volume fraction] 35.7 % 37-47 [facility] Laboratory - Chemistry and C hemistry - challengeOrdered By: Dr. Lozano on 08-22-2022 ALP [Catalytic activity/Vol] 67 U/L 45-117 [facility] ALT [Catalytic activity/Vol] 16 U/L 13-56 [facility] CO2 [Moles/Vol] 25.0 mmol/L 21.0-32.0 [facility] Globulin (S) [Mass/Vol] 3.8 g/dL 2.2-4.2 [facility] Magnesium [Mass/Vol] 2.1 mg/dL 1.6-2.6 [facility] Urea nitrogen/Creatinine [Mass ratio] 20.9 mg/mg 10-20 [facility] Laboratory - Hematology and Cell countsOrdered By: Dr. Lozano on 08-22-2022 Erythrocyte distribution width (RBC) [Entitic vol] 46.8 fL 35.1-43.9 [facility] Erythrocyte distribution width (RBC) [Ratio] 14.6 % 11.6-14.6 [facility] Immature granulocytes/100 WBC (Bld) 0.500 % 0.0-0.9 [facility] Comment on above: IG% - Immature Granu locytes (promyelocytes, myelocytes and metamyelocytes) > 1% indicates that a LEFT SHIFT is Present. MCH (RBC) [Entitic mass] 25.6 pg 27.0-32.0 [facility] Nucleated RBC/100 WBC (Bld) [Ratio] 0 % 0-5 [facility] MCHC Auto (RBC) [Mass/Vol]Or dered By: Dr. Lozano on 08-22-2022 MCHC (RBC) [Mass/Vol] 28.9 g/dL 32-36 [facility] No Panel InformationOrdered By: Dr. Lozano on 08-22-2022 Estimated GFR (MDRD) Amer 89 mL/min >60 [facility] Comment on above: GFR Calc Estimated GFR (MDRD) Non-Af Amer 74 mL/min >60 [facility] Comment on above: Non- GFR Calc Platelets bldOrdered By: Dr. Lozano on 08-22-2022 Platelets (Bld) [#/Vol] 233 10*3/uL 150-450 [facility] Serum or plasma C reactive p rotein measurement (mass/volume)Ordered By: Dr. Lozano on 08-22-2022 CRP [Mass/Vol] 8.73 mg/L 0.0-3.0 [facility] Comment on above: C-Reactive Protein ( CRP) provides useful information for thediagnosis, therapy and monitoring of inflammatory processesand associated diseases. For the evaluation of Relative Riskfor Cardiovascular Disease, a High Sensitivity CRP (HSCRP)should be ordered. Serum or plasma albumin barbara urement (mass/volume)Ordered By: Dr. Lozano on 08-22-2022 Albumin [Mass/Vol] 2.9 g/dL 3.2-5.0 [facility] Serum or plasma albumin/glob ulin mass ratioOrdered By: Dr. Lozano on 08-22-2022 Albumin/Globulin [Mass ratio] 0.8 {ratio} 0.9-2.4 [facility] Serum or plasma calcium barbara urement (mass/volume)Ordered By: Dr. Lozano on 08-22-2022 Calcium [Mass/Vol] 8.7 mg/dL 8.5-10.1 [facility] Serum or plasma creatinine m easurement (mass/volume)Ordered By: Dr. Lozano on 08-22-2022 Creatinine [Mass/Vol] 0.81 mg/dL 0.55-1.02 [facility] Comment on above: The validity of the calculated GFR & GFRAA in patients over 70 years has not been determined. Clinical correlation is essential. Serum or plasma urea nitroge n measurement (mass/volume)Ordered By: Dr. Lozano on 08-22-2022 Urea nitrogen [Mass/Vol] 17 mg/dL 7-18 [facility] Serum or plasma uric acid me asurement (mass/volume)Ordered By: Dr. Lozano on 08-22-2022 Urate [Mass/Vol] 4.0 mg/dL 2.6-6.0 [facility] Comment on above: The drugs N-Acetylcy steine and Metamizole may falsely depress this assay. Thin prep Papanicolaou smear with manual screeningOrdered By: Dr. Lozano on 08-22-2022 Thin prep Papanicolaou smear with manual screening 12 U/L 15-37 [facility] Thin prep Papanicolaou smear with manual screening 8 5-15 [facility] Absolute lymphocyte countOrd ered By: Dr. Velasco on 06-12-2022 Lymphocytes Auto (Unsp spec) [#/Vol] 1.38 10*3/uL 0.83-4.51 [facility] Basophil percentageOrdered B y: Dr. Velasco on 06-12-2022 Basophils/100 WBC (Bld) 0.8 % 0-1 [facility] Bilirubin [Mass/Vol] 0.40 mg/dL 0.20-1.00 [facility] Comment on above: For patients on eltr ombopag therapy, use of Dimension [place] TBIL is not recommended. Chloride [Moles/Vol] 110 mmol/L 98-107 [facility] Eosinophils/100 WBC (Bld) 0.6 % 0-5 [facility] Glucose [Mass/Vol] 111 mg/dL 74-106 [facility] Comment on above: Fasting Glucose resu lt from 100 to 125 mg/dL suggests IMPAIRED HOMEOSTASIS per A.D.A. criteria. Neutrophils (Bld) [#/Vol] 2.9 10*3/uL 2.0-7.7 [facility] Neutrophils/100 WBC (Bld) 58.8 % 47-70 [facility] Potassium [Moles/Vol] 3.8 mmol/L 3.5-5.1 [facility] Protein [Mass/Vol] 7.1 g/dL 6.4-8.2 [facility] Sodium [Moles/Vol] 141 mmol/L 136-145 [facility] WBC (Bld) [#/Vol] 4.9 10*3/uL 4.4-11.0 [facility] Blood erythrocytes count (nu mber/volume)Ordered By: Dr. Velasco on 06-12-2022 RBC (Bld) [#/Vol] 4.46 10*6/uL 4.2-5.4 [facility] Blood hemoglobin measurement (mass/volume)Ordered By: Dr. Velasco on 06-12-2022 Hemoglobin (Bld) [Mass/Vol] 11.3 g/dL 12.0-15.0 [facility] Blood lymphocytes/100 leukoc ytesOrdered By: Dr. Velasco on 06-12-2022 Lymphocytes/100 WBC (Bld) 28.5 % 19-41 [facility] Blood monocytes/100 leukocyt esOrdered By: Dr. Velasco on 06-12-2022 Monocytes/100 WBC (Bld) 10.9 % 0-10 [facility] Blood platelet mean volumeOr dered By: Dr. Velasco on 06-12-2022 Platelet mean volume (Bld) [Entitic vol] 11.4 fL 6.2-12.0 [facility] Determination of erythrocyte mean corpuscular volume (MCV)Ordered By: Dr. Velasco on 06-12-2022 MCV (RBC) [Entitic vol] 86.1 fL 81-99 [facility] Hematocrit Auto (Bld) [Volum e fraction]Ordered By: Dr. Velasco on 06-12-2022 Hematocrit (Bld) [Volume fraction] 38.4 % 37-47 [facility] - Chemistry and C hemistry - challengeOrdered By: Dr. Velasco on 06-12-2022 ALP [Catalytic activity/Vol] 67 U/L 45-117 [facility] ALT [Catalytic activity/Vol] 14 U/L 13-56 [facility] CO2 [Moles/Vol] 24.0 mmol/L 21.0-32.0 [facility] Globulin (S) [Mass/Vol] 3.9 g/dL 2.2-4.2 [facility] Urea nitrogen/Creatinine [Mass ratio] 16.8 mg/mg 10-20 [facility] - Hematology and Cell countsOrdered By: Dr. Velasco on 06-12-2022 Erythrocyte distribution width (RBC) [Entitic vol] 45.8 fL 35.1-43.9 [facility] Erythrocyte distribution width (RBC) [Ratio] 14.6 % 11.6-14.6 [facility] Immature granulocytes/100 WBC (Bld) 0.400 % 0.0-0.9 [facility] Comment on above: IG% - Immature Granu locytes (promyelocytes, myelocytes and metamyelocytes) > 1% indicates that a LEFT SHIFT is Present. MCH (RBC) [Entitic mass] 25.3 pg 27.0-32.0 [facility] Nucleated RBC/100 WBC (Bld) [Ratio] 0 % 0-5 [facility] MCHC Auto (RBC) [Mass/Vol]Or dered By: Dr. Velasco on 06-12-2022 MCHC (RBC) [Mass/Vol] 29.4 g/dL 32-36 [facility] No Panel InformationOrdered By: Dr. Velasco on 06-12-2022 Estimated GFR (MDRD) Amer 75 mL/min >60 [facility] Comment on above: GFR Calc Estimated GFR (MDRD) Non-Af Amer 62 mL/min >60 [facility] Comment on above: Non- GFR Calc Platelets bldOrdered By: Dr. Velasco on 06-12-2022 Platelets (Bld) [#/Vol] 219 10*3/uL 150-450 [facility] Serum or plasma albumin barbara urement (mass/volume)Ordered By: Dr. Velasco on 06-12-2022 Albumin [Mass/Vol] 3.2 g/dL 3.2-5.0 [facility] Serum or plasma albumin/glob ulin mass ratioOrdered By: Dr. Velasco on 06-12-2022 Albumin/Globulin [Mass ratio] 0.8 {ratio} 0.9-2.4 [facility] Serum or plasma calcium barbara urement (mass/volume)Ordered By: Dr. Velasco on 06-12-2022 Calcium [Mass/Vol] 9.3 mg/dL 8.5-10.1 [facility] Serum or plasma creatinine m easurement (mass/volume)Ordered By: Dr. Velasco on 06-12-2022 Creatinine [Mass/Vol] 0.95 mg/dL 0.55-1.02 [facility] Comment on above: The validity of the calculated GFR & GFRAA in patients over 70 years has not been determined. Clinical correlation is essential. Serum or plasma urea nitroge n measurement (mass/volume)Ordered By: Dr. Velasco on 06-12-2022 Urea nitrogen [Mass/Vol] 16 mg/dL 7-18 [facility] Thin prep Papanicolaou smear with manual screeningOrdered By: Dr. Velasco on 06-12-2022 Thin prep Papanicolaou smear with manual screening 15 U/L 15-37 [facility] Thin prep Papanicolaou smear with manual screening 7 5-15 [facility] Absolute lymphocyte countOrd ered By: Dr. Velasco on 04-22-2022 Lymphocytes Auto (Unsp spec) [#/Vol] 1.48 10*3/uL 0.83-4.51 [facility] Basophil percentageOrdered B y: Dr. Velasco on 04-22-2022 Basophils/100 WBC (Bld) 0.6 % 0-1 [facility] Bilirubin [Mass/Vol] 0.40 mg/dL 0.20-1.00 [facility] Comment on above: For patients on eltr ombopag therapy, use of Dimension [place] TBIL is not recommended. Chloride [Moles/Vol] 105 mmol/L 98-107 [facility] Eosinophils/100 WBC (Bld) 1.4 % 0-5 [facility] Glucose [Mass/Vol] 96 mg/dL 74-106 [facility] Neutrophils (Bld) [#/Vol] 2.9 10*3/uL 2.0-7.7 [facility] Neutrophils/100 WBC (Bld) 58.5 % 47-70 [facility] Potassium [Moles/Vol] 4.1 mmol/L 3.5-5.1 [facility] Protein [Mass/Vol] 6.6 g/dL 6.4-8.2 [facility] Sodium [Moles/Vol] 140 mmol/L 136-145 [facility] WBC (Bld) [#/Vol] 4.9 10*3/uL 4.4-11.0 [facility] Blood erythrocytes count (nu mber/volume)Ordered By: Dr. Velasco on 04-22-2022 RBC (Bld) [#/Vol] 4.44 10*6/uL 4.2-5.4 [facility] Blood hemoglobin measurement (mass/volume)Ordered By: Dr. Velasco on 04-22-2022 Hemoglobin (Bld) [Mass/Vol] 11.4 g/dL 12.0-15.0 [facility] Blood lymphocytes/100 leukoc ytesOrdered By: Dr. Velasco on 04-22-2022 Lymphocytes/100 WBC (Bld) 30.0 % 19-41 [facility] Blood monocytes/100 leukocyt esOrdered By: Dr. Velasco on 04-22-2022 Monocytes/100 WBC (Bld) 9.1 % 0-10 [facility] Blood platelet mean volumeOr dered By: Dr. Velasco on 04-22-2022 Platelet mean volume (Bld) [Entitic vol] 10.8 fL 6.2-12.0 [facility] Determination of erythrocyte mean corpuscular volume (MCV)Ordered By: Dr. Velasco on 04-22-2022 MCV (RBC) [Entitic vol] 84.5 fL 81-99 [facility] Hematocrit Auto (Bld) [Volum e fraction]Ordered By: Dr. Velasco on 04-22-2022 Hematocrit (Bld) [Volume fraction] 37.5 % 37-47 [facility] - Chemistry and C hemistry - challengeOrdered By: Dr. Velasco on 04-22-2022 ALP [Catalytic activity/Vol] 63 U/L 45-117 [facility] ALT [Catalytic activity/Vol] 18 U/L 13-56 [facility] CO2 [Moles/Vol] 28.0 mmol/L 21.0-32.0 [facility] Globulin (S) [Mass/Vol] 3.3 g/dL 2.2-4.2 [facility] Urea nitrogen/Creatinine [Mass ratio] 14.7 mg/mg 10-20 [facility] - Hematology and Cell countsOrdered By: Dr. Velasco on 04-22-2022 Erythrocyte distribution width (RBC) [Entitic vol] 43.3 fL 35.1-43.9 [facility] Erythrocyte distribution width (RBC) [Ratio] 14.1 % 11.6-14.6 [facility] Immature granulocytes/100 WBC (Bld) 0.400 % 0.0-0.9 [facility] Comment on above: IG% - Immature Granu locytes (promyelocytes, myelocytes and metamyelocytes) > 1% indicates that a LEFT SHIFT is Present. MCH (RBC) [Entitic mass] 25.7 pg 27.0-32.0 [facility] Nucleated RBC/100 WBC (Bld) [Ratio] 0 % 0-5 [facility] MCHC Auto (RBC) [Mass/Vol]Or dered By: Dr. Velasco on 04-22-2022 MCHC (RBC) [Mass/Vol] 30.4 g/dL 32-36 [facility] No Panel InformationOrdered By: Dr. Velasco on 04-22-2022 Estimated GFR (MDRD) Amer 69 mL/min >60 [facility] Comment on above: GFR Calc Estimated GFR (MDRD) Non-Af Amer 57 mL/min >60 [facility] Comment on above: Non- GFR Calc Platelets bldOrdered By: Dr. Velasco on 04-22-2022 Platelets (Bld) [#/Vol] 238 10*3/uL 150-450 [facility] Serum or plasma albumin barbara urement (mass/volume)Ordered By: Dr. Velasco on 04-22-2022 Albumin [Mass/Vol] 3.3 g/dL 3.2-5.0 [facility] Serum or plasma albumin/glob ulin mass ratioOrdered By: Dr. Velasco on 04-22-2022 Albumin/Globulin [Mass ratio] 1.0 {ratio} 0.9-2.4 [facility] Serum or plasma calcium barbara urement (mass/volume)Ordered By: Dr. Velasco on 04-22-2022 Calcium [Mass/Vol] 9.1 mg/dL 8.5-10.1 [facility] Serum or plasma creatinine m easurement (mass/volume)Ordered By: Dr. Velasco on 04-22-2022 Creatinine [Mass/Vol] 1.02 mg/dL 0.55-1.02 [facility] Comment on above: The validity of the calculated GFR & GFRAA in patients over 70 years has not been determined. Clinical correlation is essential. Serum or plasma urea nitroge n measurement (mass/volume)Ordered By: Dr. Velasco on 04-22-2022 Urea nitrogen [Mass/Vol] 15 mg/dL 7-18 [facility] Thin prep Papanicolaou smear with manual screeningOrdered By: Dr. Velasco on 04-22-2022 Thin prep Papanicolaou smear with manual screening 15 U/L 15-37 [facility] Thin prep Papanicolaou smear with manual screening 7 5-15 [facility] Absolute lymphocyte countOrd ered By: Dr. Lozano on 02-26-2022 Lymphocytes Auto (Unsp spec) [#/Vol] 1.61 10*3/uL 0.83-4.51 [facility] Basophil percentageOrdered B y: Dr. Lozano on 02-26-2022 Basophil percentage 2.9 mg/dL 2.5-4.9 [facility] Basophils/100 WBC (Bld) 0.9 % 0-1 [facility] Bilirubin [Mass/Vol] 0.30 mg/dL 0.20-1.00 [facility] Comment on above: For patients on eltr ombopag therapy, use of Dimension [place] TBIL is not recommended. Chloride [Moles/Vol] 107 mmol/L 98-107 [facility] Eosinophils/100 WBC (Bld) 0.9 % 0-5 [facility] Glucose [Mass/Vol] 94 mg/dL 74-106 [facility] Neutrophils (Bld) [#/Vol] 2.3 10*3/uL 2.0-7.7 [facility] Neutrophils/100 WBC (Bld) 50.8 % 47-70 [facility] Potassium [Moles/Vol] 3.4 mmol/L 3.5-5.1 [facility] Protein [Mass/Vol] 6.8 g/dL 6.4-8.2 [facility] Sodium [Moles/Vol] 140 mmol/L 136-145 [facility] WBC (Bld) [#/Vol] 4.6 10*3/uL 4.4-11.0 [facility] Blood erythrocytes count (nu mber/volume)Ordered By: Dr. Lozano on 02-26-2022 RBC (Bld) [#/Vol] 4.45 10*6/uL 4.2-5.4 [facility] Blood hemoglobin measurement (mass/volume)Ordered By: Dr. Lozano on 02-26-2022 Hemoglobin (Bld) [Mass/Vol] 11.3 g/dL 12.0-15.0 [facility] Blood lymphocytes/100 leukoc ytesOrdered By: Dr. Lozano on 02-26-2022 Lymphocytes/100 WBC (Bld) 35.2 % 19-41 [facility] Blood monocytes/100 leukocyt esOrdered By: Dr. Lozano on 02-26-2022 Monocytes/100 WBC (Bld) 11.8 % 0-10 [facility] Blood platelet mean volumeOr dered By: Dr. Lozano on 02-26-2022 Platelet mean volume (Bld) [Entitic vol] 10.8 fL 6.2-12.0 [facility] Determination of erythrocyte mean corpuscular volume (MCV)Ordered By: Dr. Lozano on 02-26-2022 MCV (RBC) [Entitic vol] 85.4 fL 81-99 [facility] Hematocrit Auto (Bld) [Volum e fraction]Ordered By: Dr. Lozano on 02-26-2022 Hematocrit (Bld) [Volume fraction] 38.0 % 37-47 [facility] - Chemistry and C hemistry - challengeOrdered By: Dr. Lozano on 02-26-2022 ALP [Catalytic activity/Vol] 55 U/L 45-117 [facility] ALT [Catalytic activity/Vol] 20 U/L 13-56 [facility] CO2 [Moles/Vol] 26.0 mmol/L 21.0-32.0 [facility] Globulin (S) [Mass/Vol] 3.8 g/dL 2.2-4.2 [facility] Magnesium [Mass/Vol] 2.3 mg/dL 1.6-2.6 [facility] Urea nitrogen/Creatinine [Mass ratio] 16.9 mg/mg 10-20 [facility] - Hematology and Cell countsOrdered By: Dr. Lozano on 02-26-2022 Erythrocyte distribution width (RBC) [Entitic vol] 45.0 fL 35.1-43.9 [facility] Erythrocyte distribution width (RBC) [Ratio] 14.5 % 11.6-14.6 [facility] Immature granulocytes/100 WBC (Bld) 0.400 % 0.0-0.9 [facility] Comment on above: IG% - Immature Granu locytes (promyelocytes, myelocytes and metamyelocytes) > 1% indicates that a LEFT SHIFT is Present. MCH (RBC) [Entitic mass] 25.4 pg 27.0-32.0 [facility] Nucleated RBC/100 WBC (Bld) [Ratio] 0 % 0-5 [facility] MCHC Auto (RBC) [Mass/Vol]Or dered By: Dr. Lozano on 02-26-2022 MCHC (RBC) [Mass/Vol] 29.7 g/dL 32-36 [facility] No Panel InformationOrdered By: Dr. Lozano on 02-26-2022 Estimated GFR (MDRD) Amer 75 mL/min >60 [facility] Comment on above: GFR Calc Estimated GFR (MDRD) Non-Af Amer 62 mL/min >60 [facility] Comment on above: Non- GFR Calc Parathyroid Hormone (Intact) 71.9 pg/mL 18.4-80.1 [facility] Vitamin D 25-Hydroxy 15.8 ng/mL [facility] Comment on above: Vitamin D 25(OH) Sta tus Range Deficiency <20 ng/mL (50nmol/L) Insufficiency 20 - 30 ng/mL (50 - 75 nmol/L) Sufficiency 30 - 100 ng/mL (75 - 250 nmol/L) Toxicity >100 ng/mL (>250 nmol/L) Platelets bldOrdered By: Dr. Lozano on 02-26-2022 Platelets (Bld) [#/Vol] 239 10*3/uL 150-450 [facility] Serum or plasma albumin barbara urement (mass/volume)Ordered By: Dr. Lozano on 02-26-2022 Albumin [Mass/Vol] 3.0 g/dL 3.2-5.0 [facility] Serum or plasma albumin/glob ulin mass ratioOrdered By: Dr. Lozano on 02-26-2022 Albumin/Globulin [Mass ratio] 0.8 {ratio} 0.9-2.4 [facility] Serum or plasma calcium barbara urement (mass/volume)Ordered By: Dr. Lozano on 02-26-2022 Calcium [Mass/Vol] 8.8 mg/dL 8.5-10.1 [facility] Serum or plasma creatinine m easurement (mass/volume)Ordered By: Dr. Lozano on 02-26-2022 Creatinine [Mass/Vol] 0.94 mg/dL 0.55-1.02 [facility] Comment on above: The validity of the calculated GFR & GFRAA in patients over 70 years has not been determined. Clinical correlation is essential. Serum or plasma urea nitroge n measurement (mass/volume)Ordered By: Dr. Lozano on 02-26-2022 Urea nitrogen [Mass/Vol] 16 mg/dL 7-18 [facility] Serum or plasma uric acid me asurement (mass/volume)Ordered By: Dr. Lozano on 02-26-2022 Urate [Mass/Vol] 4.8 mg/dL 2.6-6.0 [facility] Comment on above: The drugs N-Acetylcy steine and Metamizole may falsely depress this assay. Thin prep Papanicolaou smear with manual screeningOrdered By: Dr. Lozano on 02-26-2022 Thin prep Papanicolaou smear with manual screening 17 U/L 15-37 [facility] Thin prep Papanicolaou smear with manual screening 7 5-15 [facility] Absolute lymphocyte counton 01-01-2022 Lymphocytes Auto (Unsp spec) [#/Vol] 0.77 10*3/uL 0.83-4.51 [facility] Work Phone: Basophil percentageon 2021 Basophils/100 WBC (Bld) 0.3 % 0-1 [facility] Work Phone: Bilirubin [Mass/Vol] 0.40 mg/dL 0.20-1.00 [facility] Work Phone: Comment on above: For patients on eltr ombopag therapy, use of Dimension [place] TBIL is not recommended. Chloride [Moles/Vol] 105 mmol/L 98-107 [facility] Work Phone: Eosinophils/100 WBC (Bld) 0.6 % 0-5 [facility] Work Phone: Glucose [Mass/Vol] 101 mg/dL 74-106 [facility] Work Phone: Comment on above: Fasting Glucose resu lt from 100 to 125 mg/dL suggests IMPAIRED HOMEOSTASIS per A.D.A. criteria. Neutrophils (Bld) [#/Vol] 5.4 10*3/uL 2.0-7.7 [facility] Work Phone: Neutrophils/100 WBC (Bld) 80.6 % 47-70 [facility] Work Phone: Potassium [Moles/Vol] 3.8 mmol/L 3.5-5.1 [facility] Work Phone: Protein [Mass/Vol] 7.1 g/dL 6.4-8.2 [facility] Work Phone: Sodium [Moles/Vol] 139 mmol/L 136-145 [facility] Work Phone: WBC (Bld) [#/Vol] 6.7 10*3/uL 4.4-11.0 [facility] Work Phone: Blood erythrocytes count (nu mber/volume)on 01-01-2022 RBC (Bld) [#/Vol] 4.53 10*6/uL 4.2-5.4 [facility] Work Phone: RBC (Bld) [#/Vol] 4.60 10*6/uL 3.77-5.28 [facility] Work Phone: Blood hemoglobin measurement (mass/volume)on 01-01-2022 Hemoglobin (Bld) [Mass/Vol] 11.1 g/dL 12.0-15.0 [facility] Work Phone: Blood lymphocytes/100 leukoc yteson 01-01-2022 Lymphocytes/100 WBC (Bld) 11.5 % 19-41 [facility] Work Phone: Blood monocytes/100 leukocyt eson 01-01-2022 Monocytes/100 WBC (Bld) 6.6 % 0-10 [facility] Work Phone: Blood platelet mean volumeon 01-01-2022 Platelet mean volume (Bld) [Entitic vol] 11.2 fL 6.2-12.0 [facility] Work Phone: Determination of erythrocyte mean corpuscular volume (MCV)on 01-01-2022 MCV (RBC) [Entitic vol] 83.2 fL 81-99 [facility] Work Phone: Erythrocyte bazcyym-7-gzgils ate dehydrogenase (enzymatic activity/mass)on 01-01-2022 G6PD (RBC) [Catalytic activity/Mass] 327 127-427 [facility] Work Phone: Comment on above: Result [...] weeks following a hemolytic event.Performed at: - [address] [id number] Director: Wilfredo Apodaca PhD, Phone: [phone] at: [facility] [address] [id number] Director: Lynn Terrell MD, Phone: [phone] Hematocrit Auto (Bld) [Volum e fraction]on 01-01-2022 Hematocrit (Bld) [Volume fraction] 37.7 % 37-47 [facility] Work Phone: Laboratory - Chemistry and C hemistry - challengeon 01-01-2022 ALP [Catalytic activity/Vol] 74 U/L 45-117 [facility] Work Phone: ALT [Catalytic activity/Vol] 21 U/L 13-56 [facility] Work Phone: [phone] CO2 [Moles/Vol] 25.0 mmol/L 21.0-32.0 [facility] Work Phone: [phone] Globulin (S) [Mass/Vol] 4.0 g/dL 2.2-4.2 [facility] Work Phone: [phone] Urea nitrogen/Creatinine [Mass ratio] 15.2 mg/mg 10-20 [facility] Work Phone: [phone] Laboratory - Hematology and Cell countson 01-01-2022 Erythrocyte distribution width (RBC) [Entitic vol] 48.2 fL 35.1-43.9 [facility] Work Phone: [phone] Erythrocyte distribution width (RBC) [Ratio] 15.9 % 11.6-14.6 [facility] Work Phone: [phone] Immature granulocytes/100 WBC (Bld) 0.400 % 0.0-0.9 [facility] Work Phone: Comment on above: IG% - Immature Granu locytes (promyelocytes, myelocytes and metamyelocytes) > 1% indicates that a LEFT SHIFT is Present. MCH (RBC) [Entitic mass] 24.5 pg 27.0-32.0 [facility] Work Phone: [phone] Nucleated RBC/100 WBC (Bld) [Ratio] 0 % 0-5 [facility] Work Phone: [phone] MCHC Auto (RBC) [Mass/Vol]on 01-01-2022 MCHC (RBC) [Mass/Vol] 29.4 g/dL 32-36 [facility] Work Phone: [phone] No Panel Informationon 01-01 Anti-Nuclear Antibody Screen Negative Negative [facility] Work Phone: Comment on above: Performed at: [place] [id number] Director: Wilfredo Apodaca PhD, Phone: [phone] Estimated GFR (MDRD) Amer 67 mL/min >60 [facility] Work Phone: Comment on above: GFR Calc Estimated GFR (MDRD) Non-Af Amer 55 mL/min >60 [facility] Work Phone: Comment on above: Non- GFR Calc Hepatitis B Surface Antigen Non-Reactive Nonreactive [facility] Work Phone: Hepatitis C Antibody Non-Reactive Nonreactive [facility] Work Phone: Comment on above: Non Reactive: < 0.8 Equivocal: >/= 0.8 to < 1.0 Reactive: >/= 1.0The [facility] recommends that a reactive/equivocal HCV antibody result be followed up by the HCV Nucleic Acid Amplificationtest (875304) Platelets bldon 01-01-2022 Platelets (Bld) [#/Vol] 202 10*3/uL 150-450 [facility] Work Phone: Qualitative QuantiFERON-TB g old in tube teston 01-01-2022 M. tuberculosis tuberculin stim IFN-g Ql (Bld) 0.01 IU/mL . [facility] Work Phone: Serum hepatitis B virus surf damaris antibody IgG detectionon 01-01-2022 HBV surface IgG Ql (S) Non-Reactive [facility] Work Phone: Comment on above: Non Reactive: Incons istent with immunity less than <10 mIU/mL Reactive: Consistent with immunity greater than or equal to 10 mIU/mL Serum or plasma albumin barbara urement (mass/volume)on 01-01-2022 Albumin [Mass/Vol] 3.1 g/dL 3.2-5.0 [facility] Work Phone: Serum or plasma albumin/glob ulin mass ratioon 01-01-2022 Albumin/Globulin [Mass ratio] 0.8 {ratio} 0.9-2.4 [facility] Work Phone: Serum or plasma calcium barbara urement (mass/volume)on 01-01-2022 Calcium [Mass/Vol] 9.1 mg/dL 8.5-10.1 Located Within [facility] Work Phone: Serum or plasma creatinine m easurement (mass/volume)on 01-01-2022 Creatinine [Mass/Vol] 1.05 mg/dL 0.55-1.02 [facility] Work Phone: Comment on above: The validity of the calculated GFR & GFRAA in patients over 70 years has not been determined. Clinical correlation is essential. Serum or plasma urea nitroge n measurement (mass/volume)on 01-01-2022 Urea nitrogen [Mass/Vol] 16 mg/dL 7-18 [facility] Work Phone: Thin prep Papanicolaou smear with manual screeningon 01-01-2022 Thin prep Papanicolaou smear with manual screening 17 U/L 15-37 [facility] Work Phone: Thin prep Papanicolaou smear with manual screening 9 5-15 [facility] Work Phone: Thin prep Papanicolaou smear with manual screening Comment . [facility] Work Phone: Comment on above: QuantiFERON-TB [...] smear with manual screening 0 IU/mL . [facility] Work Phone: Thin prep Papanicolaou smear with manual screening 7.96 IU/mL . [facility] Work Phone: Thin prep Papanicolaou smear with manual screening Negative Negative [facility] Work Phone: Comment on above: No response [...] Auto (Unsp spec) [#/Vol] 1.05 10*3/uL 0.83-4.51 [facility] Work Phone: Basophil percentageon 2021 Basophils/100 WBC (Bld) 0.6 % 0-1 [facility] Work Phone: Eosinophils/100 WBC (Bld) 1.0 % 0-5 [facility] Work Phone: Neutrophils (Bld) [#/Vol] 3.5 10*3/uL 2.0-7.7 [facility] Work Phone: Neutrophils/100 WBC (Bld) 69.3 % 47-70 [facility] Work Phone: WBC (Bld) [#/Vol] 5.1 10*3/uL 4.4-11.0 [facility] Work Phone: Blood erythrocytes count (nu mber/volume)on 10-19-2021 RBC (Bld) [#/Vol] 4.47 10*6/uL 4.2-5.4 [facility] Work Phone: Blood hemoglobin measurement (mass/volume)on 10-19-2021 Hemoglobin (Bld) [Mass/Vol] 10.9 g/dL 12.0-15.0 [facility] Work Phone: Blood lymphocytes/100 leukoc yteson 10-19-2021 Lymphocytes/100 WBC (Bld) 20.8 % 19-41 [facility] Work Phone: Blood monocytes/100 leukocyt eson 10-19-2021 Monocytes/100 WBC (Bld) 8.1 % 0-10 [facility] Work Phone: Blood platelet mean volumeon 10-19-2021 Platelet mean volume (Bld) [Entitic vol] 11.0 fL 6.2-12.0 [facility] Work Phone: Determination of erythrocyte mean corpuscular volume (MCV)on 10-19-2021 MCV (RBC) [Entitic vol] 84.3 fL 81-99 [facility] Work Phone: Erythrocyte sedimentation ra rita 10-19-2021 ESR (Bld) [Velocity] 34 mm/h 0-30 [facility] Work Phone: Hematocrit Auto (Bld) [Volum e fraction]on 10-19-2021 Hematocrit (Bld) [Volume fraction] 37.7 % 37-47 [facility] Work Phone: Laboratory - Hematology and Cell countson 10-19-2021 Erythrocyte distribution width (RBC) [Entitic vol] 44.4 fL 35.1-43.9 [facility] Work Phone: Erythrocyte distribution width (RBC) [Ratio] 14.6 % 11.6-14.6 [facility] Work Phone: Immature granulocytes/100 WBC (Bld) 0.200 % 0.0-0.9 [facility] Work Phone: Comment on above: IG% - Immature Granu locytes (promyelocytes, myelocytes and metamyelocytes) > 1% indicates that a LEFT SHIFT is Present. MCH (RBC) [Entitic mass] 24.4 pg 27.0-32.0 [facility] Work Phone: Nucleated RBC/100 WBC (Bld) [Ratio] 0 % 0-5 [facility] Work Phone: MCHC Auto (RBC) [Mass/Vol]on 10-19-2021 MCHC (RBC) [Mass/Vol] 28.9 g/dL 32-36 [facility] Work Phone: Platelets bldon 10-19-2021 Platelets (Bld) [#/Vol] 217 10*3/uL 150-450 [facility] Work Phone: Serum cyclic citrullinated p eptide IgG antibody assay (units/volume)on 10-19-2021 Cyclic citrullinated peptide IgG Qn 5 units 0-19 [facility] Work Phone: Comment on above: Negative <20 Weak po sitive 20 - 39 Moderate positive 40 - 59 Strong positive >59Performed at: - [facility] [id number] Director: Lynn Terrell MD, Phone: [phone] Serum or plasma C reactive p rotein measurement (mass/volume)on 10-19-2021 CRP [Mass/Vol] 15.50 mg/L 0.0-3.0 [facility] Work Phone: Comment on above: C-Reactive Protein ( CRP) provides useful information for thediagnosis, therapy and monitoring of inflammatory processesand associated diseases. For the evaluation of Relative Riskfor Cardiovascular Disease, a High Sensitivity CRP (HSCRP)should be ordered. Serum or plasma uric acid me asurement (mass/volume)on 10-19-2021 Urate [Mass/Vol] 5.3 mg/dL 2.6-6.0 [facility] Work Phone: Comment on above: The drugs N-Acetylcy steine and Metamizole may falsely depress this assay. Serum rheumatoid factor dete ctionon 10-19-2021 Rheumatoid factor Ql (S) > 600.0 IU/mL <15 [facility] Work Phone: Bronchoalveolar lavage cultu re with Gram stainon 07-06-2021 Respiratory Culture Presumptive C albicans [facility] Work Phone: Gram stain for investigation of transfusion reactionon 07-06-2021 Microscopic observation Gram stain Nom (Unsp spec) [facility] Work Phone: Gram stain for investigation of transfusion reactionon 07-05-2021 Microscopic observation Gram stain Nom (Unsp spec) [facility] Work Phone: Bronchoalveolar lavage cultu re with Gram stainon 07-04-2021 Respiratory Culture Streptococcus pneumoniae [facility] Work Phone: [phone] Gram stain for investigation of transfusion reactionon 07-04-2021 Microscopic observation Gram stain Nom (Unsp spec) [facility] Work Phone: Absolute lymphocyte counton 05-29-2021 Lymphocytes Auto (Unsp spec) [#/Vol] 1.26 10*3/uL 0.83-4.51 [facility] Work Phone: Basophil percentageon 2021 Basophils/100 WBC (Bld) 0.8 % 0-1 [facility] Work Phone: Bilirubin [Mass/Vol] 0.40 mg/dL 0.20-1.00 [facility] Work Phone: Comment on above: For patients on eltr ombopag therapy, use of Dimension [place] TBIL is not recommended. Chloride [Moles/Vol] 107 mmol/L 98-107 [facility] Work Phone: Eosinophils/100 WBC (Bld) 3.1 % 0-5 [facility] Work Phone: Glucose [Mass/Vol] 97 mg/dL 74-106 [facility] Work Phone: Neutrophils (Bld) [#/Vol] 4.1 10*3/uL 2.0-7.7 [facility] Work Phone: Neutrophils/100 WBC (Bld) 63.5 % 47-70 [facility] Work Phone: Potassium [Moles/Vol] 4.3 mmol/L 3.5-5.1 [facility] Work Phone: Protein [Mass/Vol] 7.2 g/dL 6.4-8.2 [facility] Work Phone: Sodium [Moles/Vol] 138 mmol/L 136-145 [facility] Work Phone: WBC (Bld) [#/Vol] 6.5 10*3/uL 4.4-11.0 [facility] Work Phone: Blood erythrocytes count (nu mber/volume)on 05-29-2021 RBC (Bld) [#/Vol] 4.57 10*6/uL 4.2-5.4 [facility] Work Phone: Blood hemoglobin measurement (mass/volume)on 05-29-2021 Hemoglobin (Bld) [Mass/Vol] 11.9 g/dL 12.0-15.0 [facility] Work Phone: Blood lymphocytes/100 leukoc yteson 05-29-2021 Lymphocytes/100 WBC (Bld) 19.4 % 19-41 [facility] Work Phone: Blood monocytes/100 leukocyt eson 05-29-2021 Monocytes/100 WBC (Bld) 12.9 % 0-10 [facility] Work Phone: Blood platelet mean volumeon 05-29-2021 Platelet mean volume (Bld) [Entitic vol] 11.1 fL 6.2-12.0 [facility] Work Phone: [phone] Determination of erythrocyte mean corpuscular volume (MCV)on 05-29-2021 MCV (RBC) [Entitic vol] 84.7 fL 81-99 [facility] Work Phone: Hematocrit Auto (Bld) [Volum e fraction]on 05-29-2021 Hematocrit (Bld) [Volume fraction] 38.7 % 37-47 [facility] Work Phone: [phone] Laboratory - Chemistry and C hemistry - challengeon 05-29-2021 ALP [Catalytic activity/Vol] 83 U/L 45-117 [facility] Work Phone: ALT [Catalytic activity/Vol] 20 U/L 13-56 [facility] Work Phone: CO2 [Moles/Vol] 27.0 mmol/L 21.0-32.0 [facility] Work Phone: Globulin (S) [Mass/Vol] 4.1 g/dL 2.2-4.2 [facility] Work Phone: Urea nitrogen/Creatinine [Mass ratio] 19.4 mg/mg 10-20 [facility] Work Phone: Laboratory - Hematology and Cell countson 05-29-2021 Erythrocyte distribution width (RBC) [Entitic vol] 44.5 fL 35.1-43.9 [facility] Work Phone: Erythrocyte distribution width (RBC) [Ratio] 14.5 % 11.6-14.6 [facility] Work Phone: Immature granulocytes/100 WBC (Bld) 0.300 % 0.0-0.9 [facility] Work Phone: Comment on above: IG% - Immature Granu locytes (promyelocytes, myelocytes and metamyelocytes) > 1% indicates that a LEFT SHIFT is Present. MCH (RBC) [Entitic mass] 26.0 pg 27.0-32.0 [facility] Work Phone: Nucleated RBC/100 WBC (Bld) [Ratio] 0 % 0-5 [facility] Work Phone: MCHC Auto (RBC) [Mass/Vol]on 05-29-2021 MCHC (RBC) [Mass/Vol] 30.7 g/dL 32-36 [facility] Work Phone: No Panel Informationon 05-29 Estimated GFR (MDRD) Amer 68 mL/min >60 [facility] Work Phone: Comment on above: GFR Calc Estimated GFR (MDRD) Non-Af Amer 56 mL/min >60 [facility] Work Phone: Comment on above: Non- GFR Calc Platelets bldon 05-29-2021 Platelets (Bld) [#/Vol] 268 10*3/uL 150-450 [facility] Work Phone: Serum or plasma albumin barbara urement (mass/volume)on 05-29-2021 Albumin [Mass/Vol] 3.1 g/dL 3.2-5.0 [facility] Work Phone: Serum or plasma albumin/glob ulin mass ratioon 05-29-2021 Albumin/Globulin [Mass ratio] 0.8 {ratio} 0.9-2.4 [facility] Work Phone: Serum or plasma calcium barbara urement (mass/volume)on 05-29-2021 Calcium [Mass/Vol] 9.1 mg/dL 8.5-10.1 Located [facility] Work Phone: Serum or plasma creatinine m easurement (mass/volume)on 05-29-2021 Creatinine [Mass/Vol] 1.03 mg/dL 0.55-1.02 [facility] Work Phone: Comment on above: The validity of the calculated GFR & GFRAA in patients over 70 years has not been determined. Clinical correlation is essential. Serum or plasma urea nitroge n measurement (mass/volume)on 05-29-2021 Urea nitrogen [Mass/Vol] 20 mg/dL 7-18 [facility] Work Phone: Serum or plasma uric acid me asurement (mass/volume)on 05-29-2021 Urate [Mass/Vol] 5.6 mg/dL 2.6-6.0 [facility] Work Phone: Comment on above: The drugs N-Acetylcy steine and Metamizole may falsely depress this assay. Thin prep Papanicolaou smear with manual screeningon 05-29-2021 Thin prep Papanicolaou smear with manual screening 18 U/L 15-37 [facility] Work Phone: Thin prep Papanicolaou smear with manual screening 4 5-15 [facility] Work Phone: XR Toes - left 3 Viewson IMPRESSION: No Acute Fracture. Wildlife Conservationist: PSCB Transcribe Date/Time: May 18 2021 4:25P Dictated by : ZA YAN MD This examination was interpreted and the report reviewed and electronically signed by: ZA YAN MD on May 18 2021 4:26PM [facility] DIVISION OF RADIOLOGY * * *Final Report* [...] DIVISION [facility] RADIOLOGY [facility] * * *Final Report* [...] destructive changes. IMPRESSION IMPRESSION: No Acute Fracture. Wildlife Conservationist: PSCB Transcribe Date/Time: May 18 2021 4:25P Dictated by : ZA YAN MD This examination was interpreted and the report reviewed and electronically signed by: ZA YAN MD on May 18 2021 4:26PM EST [facility] Radiology Study observation (narrative) [facility] XR Toes - left 3 ViewsOrdere d By: [facility] Provider on 05-18-2021 [facility] Absolute lymphocyte counton 04-02-2021 Lymphocytes Auto (Unsp spec) [#/Vol] 0.88 10*3/uL 0.83-4.51 [facility] Work Phone: [phone] Basophil percentageon 2020 Bilirubin [Mass/Vol] 0.60 mg/dL 0.20-1.00 [facility] Work Phone: [phone] Comment on above: For patients on eltr ombopag therapy, use of Dimension [place] TBIL is not recommended. Chloride [Moles/Vol] 109 mmol/L 98-107 [facility] Work Phone: [phone] Eosinophils/100 WBC (Bld) 2.7 % 0-5 [facility] Work Phone: [phone] Glucose [Mass/Vol] 109 mg/dL 74-106 [facility] Work Phone: [phone] Comment on above: Fasting Glucose resu lt from 100 to 125 mg/dL suggests IMPAIRED HOMEOSTASIS per A.D.A. criteria.Please note revised GLUCOSE reference range effective 2017. Neutrophils (Bld) [#/Vol] 2.0 10*3/uL 2.0-7.7 [facility] Work Phone: [phone] Potassium [Moles/Vol] 3.6 mmol/L 3.5-5.1 [facility] Work Phone: [phone] Protein [Mass/Vol] 6.9 g/dL 6.4-8.2 [facility] Work Phone: [phone] Sodium [Moles/Vol] 142 mmol/L 136-145 [facility] Work Phone: [phone] WBC (Bld) [#/Vol] 3.3 10*3/uL 4.4-11.0 [facility] Work Phone: [phone] Blood erythrocytes count (nu mber/volume)on 04-02-2021 RBC (Bld) [#/Vol] 4.41 10*6/uL 4.2-5.4 [facility] Work Phone: [phone] Blood hemoglobin measurement (mass/volume)on 04-02-2021 Hemoglobin (Bld) [Mass/Vol] 11.1 g/dL 12.0-15.0 [facility] Work Phone: Blood lymphocytes/100 leukoc yteson 04-02-2021 Lymphocytes/100 WBC (Bld) 26.6 % 19-41 [facility] Work Phone: Blood monocytes/100 leukocyt eson 04-02-2021 Monocytes/100 WBC (Bld) 10.0 % 0-10 [facility] Work Phone: Blood platelet mean volumeon 04-02-2021 Platelet mean volume (Bld) [Entitic vol] 11.5 fL 6.2-12.0 [facility] Work Phone: Determination of erythrocyte mean corpuscular volume (MCV)on 04-02-2021 MCV (RBC) [Entitic vol] 83.4 fL 81-99 [facility] Work Phone: Erythrocyte sedimentation ra rita 04-02-2021 ESR (Bld) [Velocity] 24 mm/h 0-30 [facility] Work Phone: Hematocrit Auto (Bld) [Volum e fraction]on 04-02-2021 Hematocrit (Bld) [Volume fraction] 36.8 % 37-47 [facility] Work Phone: [phone] Laboratory - Chemistry and C hemistry - challengeon 04-02-2021 ALP [Catalytic activity/Vol] 90 U/L 45-117 [facility] Work Phone: ALT [Catalytic activity/Vol] 19 U/L 13-56 [facility] Work Phone: CO2 [Moles/Vol] 28.0 mmol/L 21.0-32.0 [facility] Work Phone: Globulin (S) [Mass/Vol] 4.0 g/dL 2.2-4.2 [facility] Work Phone: Urea nitrogen/Creatinine [Mass ratio] 16.7 mg/mg 10-20 [facility] Work Phone: [phone] Laboratory - Hematology and Cell countson 12-20-2021 Basophils/100 WBC (Unsp spec) 1.2 % 0-1 [facility] Work Phone: [phone] Erythrocyte distribution width (RBC) [Entitic vol] 43.0 fL 35.1-43.9 [facility] Work Phone: [phone] Erythrocyte distribution width (RBC) [Ratio] 14.1 % 11.6-14.6 [facility] Work Phone: [phone] Immature granulocytes/100 WBC (Bld) 0.300 % 0.0-0.9 [facility] Work Phone: Comment on above: IG% - Immature Granu locytes (promyelocytes, myelocytes and metamyelocytes) > 1% indicates that a LEFT SHIFT is Present. MCH (RBC) [Entitic mass] 25.2 pg 27.0-32.0 [facility] Work Phone: [phone] Neutrophils/100 WBC (Bld) 59.2 % 47-70 [facility] Work Phone: [phone] Nucleated RBC/100 WBC (Bld) [Ratio] 0 % 0-5 [facility] Work Phone: [phone] MCHC Auto (RBC) [Mass/Vol]on 04-02-2021 MCHC (RBC) [Mass/Vol] 30.2 g/dL 32-36 [facility] Work Phone: No Panel Informationon 04-02 Estimated GFR (MDRD) Amer 74 mL/min >60 [facility] Work Phone: Comment on above: GFR Calc Estimated GFR (MDRD) Non-Af Amer 61 mL/min >60 [facility] Work Phone: Comment on above: Non- GFR Calc Parathyroid Hormone (Intact) 88.5 pg/mL 18.4-80.1 [facility] Work Phone: Platelets bldon 04-02-2021 Platelets (Bld) [#/Vol] 217 10*3/uL 150-450 [facility] Work Phone: Serum or plasma C reactive p rotein measurement (mass/volume)on 04-02-2021 CRP [Mass/Vol] 8.60 mg/L 0.0-3.0 [facility] Work Phone: Comment on above: C-Reactive Protein ( CRP) provides useful information for thediagnosis, therapy and monitoring of inflammatory processesand associated diseases. For the evaluation of Relative Riskfor Cardiovascular Disease, a High Sensitivity CRP (HSCRP)should be ordered. Serum or plasma albumin barbara urement (mass/volume)on 04-02-2021 Albumin [Mass/Vol] 2.9 g/dL 3.2-5.0 [facility] Work Phone: Serum or plasma albumin/glob ulin mass ratioon 04-02-2021 Albumin/Globulin [Mass ratio] 0.7 {ratio} 0.9-2.4 [facility] Work Phone: Serum or plasma calcium barbara urement (mass/volume)on 04-02-2021 Calcium [Mass/Vol] 9.1 mg/dL 8.5-10.1 [facility] Work Phone: Serum or plasma creatinine m easurement (mass/volume)on 04-02-2021 Creatinine [Mass/Vol] 0.96 mg/dL 0.55-1.02 [facility] Work Phone: Comment on above: The validity of the calculated GFR & GFRAA in patients over 70 years has not been determined. Clinical correlation is essential. Serum or plasma urea nitroge n measurement (mass/volume)on 04-02-2021 Urea nitrogen [Mass/Vol] 16 mg/dL 7-18 [facility] Work Phone: Serum or plasma uric acid me asurement (mass/volume)on 04-02-2021 Urate [Mass/Vol] 5.4 mg/dL 2.6-6.0 [facility] Work Phone: Comment on above: The drugs N-Acetylcy steine and Metamizole may falsely depress this assay. Thin prep Papanicolaou smear with manual screeningon 04-02-2021 Thin prep Papanicolaou smear with manual screening 21 U/L 15-37 [facility] Work Phone: Thin prep Papanicolaou smear with manual screening 5 5-[facility]: XR Chest PA and Lateralon IMPRESSION: No acute radiographic abnormality. Wildlife Conservationist: LISA Transcribe Date/Time: Dec 22 2020 11:25A Dictated by : VASQUEZ BESS MD This examination was interpreted and the report reviewed and electronically signed by: VASQUEZ BESS MD on Dec 22 2020 11:27AM [facility] DIVISION OF RADIOLOGY * * *Final Report* [...] spine DIVISION OF RADIOLOGY Provider, [facility] - 12/22/2020 * * *Final Report* * [...] spine IMPRESSION IMPRESSION: No acute radiographic abnormality. 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 Work Phone: [phone] Office Visiton 10-16-2016 Dietary management education, guidance, and counseling (procedure) yes Invalid Interpretation Code [facility] Work Phone: [phone] Documentation of current medications (procedure) Done Invalid Interpretation Code [facility] Work Phone: [phone] Fall risk assessment No Invalid Interpretation Code [facility] Work Phone: [phone] Protein mass conc Done [facility] Work Phone: [phone] Replaced Document: Tam Love CG Observationson 10-16-2016 EKG QRS axis 37 deg [facility] Work Phone: [phone] electrocardiogram interpretation Marked sinus Bradycardia BORDERLINE RHYTHM Invalid Interpretation Code [facility] Work Phone: [phone] GE use only - for [employer] import when terms are not otherwise specified 419 ms Invalid Interpretation Code [facility] Work Phone: [phone] Interpretation Marked sinus Bradyca rdia BORDERLINE RHYTHM [facility] Work Phone: [phone] P Batson 46 deg [facility] Work Phone: [phone] P wave axis, electrocardiogram 46 deg Invalid Interpretation Code [facility] Work Phone: VA Interval 146 ms [facility] Work Phone: [phone] VA interval, electrocardiogram 146 ms Invalid Interpretation Code [facility] Work Phone: [phone] Pulse (Heart Rate) 48 /min Invalid Interpretation Code [facility] Work Phone: [phone] QRS axis, electrocardiogram 37 deg Invalid Interpretation Code [facility] Work Phone: [phone] QRS Duration 90 ms [facility] Work Phone: [phone] QRS duration, electrocardiogram 90 ms Invalid Interpretation Code [facility] Work Phone: [phone] QT Interval new path ms [facility] Work Phone: [phone] QT interval, electrocardiogram new path ms Invalid Interpretation Code [facility] Work Phone: [phone] QTc Olivares 419 ms [facility] Work Phone: [phone] T Batson 57 deg [facility] Work Phone: [phone] T wave axis, electrocardiogram 57 deg Invalid Interpretation Code [facility] Work Phone: [phone] Clinical Lists Update: Prelo student affairs dean 10-10-2016 Left ventricular Ejection fraction 65 % Invalid Interpretation Code [facility] Work Phone: [phone] Lab Report: [place] Lambda Lig ht Chainson 01-24-2016 FR KAPPA LT CHN 2.72 mg/dL High Units converted. See lab report for original value. [facility] Work Phone: [phone] free [place]/Lambda ratio 1.23 Invalid Interpretation Code 0.26-1.65 [facility] Work Phone: [phone] kappa free light chains 2.72 mg/dL High Units converted. See lab report for original value. [facility] Work Phone: [phone] KAPPA/LAMBDA % 1.23 0.26-1.65 [facility] Work Phone: [phone] FR LAMBDA LT CH 2.215 mg/dL Units converted. See lab report for original value. [facility] Work Phone: [phone] free Lambda light chain 2.215 mg/dL Invalid Interpretation Code Units converted. See lab report for original value. [facility] Work Phone: [phone] Lab Report: Protein Electrop h, Son 01-24-2016 Globulin . Invalid Interpretation Code [facility] Work Phone: [phone] lab comments Comment Invalid Interpretation Code . [facility] Work Phone: [phone] M-SPIKE . [facility] Work Phone: [phone] NOTE: Comment . [facility] Work Phone: [phone] Protein mass conc Comment . [facility] Work Phone: [phone] serum protein electrophoresis, interpretation/comment Comment Invalid Interpretation Code . [facility] Work Phone: [phone] Albumin 3.3 g/dL Invalid Interpretation Code 2.9-4.4 [facility] Work Phone: [phone] Albumin/Globulin Ratio 1.0 (?) Invalid Interpretation Code 0.7-1.7 [facility] Work Phone: [phone] ALPHA-1 GLOBUL 0.2 g/dL 0.0-0.4 [facility] Work Phone: [phone] ALPHA-2 GLOBUL 0.7 g/dL 0.4-1.0 [facility] Work Phone: [phone] BETA GLOBULIN 1.2 g/dL 0.7-1.3 [facility] Work Phone: [phone] GAMMA GLOBULIN 1.0 g/dL 0.4-1.8 [facility] Work Phone: [phone] Globulin 3.2 g/dL Invalid Interpretation Code 2.2-3.9 [facility] Work Phone: [phone] Globulin 1.0 g/dL Invalid Interpretation Code 0.4-1.8 [facility] Work Phone: [phone] Globulin 1.2 g/dL Invalid Interpretation Code 0.7-1.3 [facility] Work Phone: [phone] Globulin 0.7 g/dL Invalid Interpretation Code 0.4-1.0 [facility] Work Phone: [phone] Globulin 0.2 g/dL Invalid Interpretation Code 0.0-0.4 [facility] Work Phone: [phone] Globulin mass conc (S) 3.2 g/dL 2.2-3.9 [facility] Work Phone: [phone] Protein 6.5 g/dL Invalid Interpretation Code 6.0-8.5 [facility] Work Phone: [phone] Office Visit: 6 mo f/u (DEEPIKA/ neutropenia) PHQ9 Completeon 01-22-2016 Adolescent depression screening assessment Adolescent depression screening assessment Invalid Interpretation Code [facility] Work Phone: [phone] Adult depression screening assessment Adult depression screening assessment Invalid Interpretation Code [facility] Work Phone: [phone] Documentation of current medications (procedure) Done Invalid Interpretation Code [facility] Work Phone: [phone] PHQ-9 quick depression assessment panel [Reported.PHQ] Adult depression screening assessment [facility] Work Phone: [phone] Protein mass conc Done [facility] Work Phone: [phone] Tobacco smoking status NHIS Former smoker [facility] Work Phone: [phone] Tobacco use CP Former smoker Invalid Interpretation Code [facility] Work Phone: [phone] Lab Report: CBC W/Diff, Auto - EPLAB Onlyon 01-18-2016 Basophils/100 leukocytes 1.7 % High 0-1 [facility] Work Phone: [phone] Basophils/100 WBC (Bld) 1.7 % High 0-1 [facility] Work Phone: Eosinophils/100 leukocytes 2.0 % Invalid Interpretation Code 0-5 [facility] Work Phone: Eosinophils/100 WBC (Bld) 2.0 % 0-5 [facility] Work Phone: [phone] Erythrocytes (RBC) 4.39 10*6/uL Invalid Interpretation Code 4.2-5.4 [facility] Work Phone: [phone] Hematocrit (HCT) 39.7 % Invalid Interpretation Code 37-47 [facility] Work Phone: [phone] Hematocrit Volume Fraction (Bld) 39.7 % 37-47 [facility] Work Phone: [phone] Hemoglobin (HGB) 12.7 g/dL Invalid Interpretation Code 12.0-15.0 [facility] Work Phone: Lymphocytes/100 leukocytes 32.1 % Invalid Interpretation Code 19-41 [facility] Work Phone: [phone] Lymphocytes/100 WBC (Bld) 32.1 % 19-41 [facility] Work Phone: MCH 29.0 pg Invalid Interpretation Code 27.0-32.0 [facility] Work Phone: MCH Entitic mass (RBC) 29.0 pg 27.0-32.0 [facility] Work Phone: MCHC 32.0 g/dL Invalid Interpretation Code 32-36 [facility] Work Phone: MCHC mass conc (RBC) 32.0 g/dL 32-[address] [facility] Work Phone: MCV 90.4 fL Invalid Interpretation Code 81-99 [facility] Work Phone: MCV Entitic volume (RBC) 90.4 fL 81-99 [facility] Work Phone: Monocytes/100 leukocytes 10.2 % High 0-10 [facility] Work Phone: Monocytes/100 WBC (Bld) 10.2 % High 0-10 [facility] Work Phone: Neutrophils/100 leukocytes 54.0 % Invalid Interpretation Code 47-70 [facility] Work Phone: Neutrophils/100 WBC (Bld) 54.0 % 47-70 [facility] Work Phone: Platelets 150 10*3/mm3 Invalid Interpretation Code 150-450 [facility] Work Phone: Platelets #/vol (Bld) 150 10*3/mm3 150-450 [facility] Work Phone: RBC #/vol (Bld) 4.39 10*6/uL 4.2-5.4 [facility] Work Phone: WBC #/vol (Bld) 3.4 10*3/uL Low 4.4-11.0 [facility] Work Phone: WBC (Leukocytes) 3.4 10*3/uL Low 4.4-11.0 [facility] Work Phone: Erythrocyte distribution width Ratio (RBC) 12.3 % 11.6-14.6 [facility] Work Phone: Lymphocytes 1.08 X10 3/UL Invalid Interpretation Code 0.83-4.51 [facility] Work Phone: Lymphocytes #/vol (Bld) 1.08 X10 3/UL 0.83-4.51 [facility] Work Phone: [phone] neutrophil count, blood 1.8 X10 3/UL Low 2.0-7.7 [facility] Work Phone: [phone] Neutrophils #/vol (Bld) 1.8 X10 3/UL Low 2.0-7.7 [facility] Work Phone: [phone] Platelet mean volume Entitic volume (Bld) 7.9 fL 6.2-12.0 [facility] Work Phone: [phone] PMV by Daniel 7.9 fL Invalid Interpretation Code 6.2-12.0 [facility] Work Phone: [phone] RDW-CA 12.3 % Invalid Interpretation Code 11.6-14.6 [facility] Work Phone: [phone] Lab Report: [facility] 01-18-2016 Alanine aminotransferase (ALT) 26 U/L Invalid Interpretation Code 12-78 [facility] Work Phone: [phone] Albumin 3.2 g/dL Low 3.4-5.0 [facility] Work Phone: [phone] Albumin/Globulin Ratio 0.9 {ratio} Invalid Interpretation Code 0.9-2.4 [facility] Work Phone: [phone] Alkaline phosphatase (ALP) 81 U/L Invalid Interpretation Code 50-136 [facility] Work Phone: [phone] ALP enzyme act/vol (Bld) 81 U/L 50-136 [facility] Work Phone: [phone] Anion gap 5 mmol/L Invalid Interpretation Code 5-15 [facility] Work Phone: [phone] Anion gap molar conc 5 mmol/L 5-[address] [facility] Work Phone: [phone] Aspartate aminotransferase (AST) 22 U/L Invalid Interpretation Code 15-37 [facility] Work Phone: [phone] Bilirubin (total) 0.50 mg/dL Invalid Interpretation Code 0.20-1.00 [facility] Work Phone: [phone] BUN/Creatinine Ratio 10.9 RATIO Invalid Interpretation Code 10-20 [facility] Work Phone: [phone] Calcium 8.5 mg/dL Invalid Interpretation Code 8.5-10.1 [facility] Work Phone: [phone] Chloride 105 mmol/L Invalid Interpretation Code 98-107 [facility] Work Phone: [phone] CO2 30.0 mmol/L Invalid Interpretation Code 21.0-32.0 [facility] Work Phone: [phone] CO2 ppres (BldV) 30.0 mmol/L 21.0-32.0 [facility] Work Phone: [phone] Creatinine 1.01 mg/dL Invalid Interpretation Code 0.55-1.20 [facility] Work Phone: [phone] eGFR (non-black) 71 mL/min/{1.73_m2} Invalid Interpretation Code >60 [facility] Work Phone: [phone] eGFR (non-black) 59 mL/min/{1.73_m2} Low >60 [facility] Work Phone: [phone] EST GFR - AA 71 mL/min >60 [facility] Work Phone: [phone] Globulin 3.7 g/dL High 2.3-3.5 [facility] Work Phone: [phone] Globulin mass conc (S) 3.7 g/dL High 2.3-3.5 [facility] Work Phone: [phone] Glucose 109 mg/dL Invalid Interpretation Code 70-110 [facility] Work Phone: [phone] Glucose mass conc 109 mg/dL 70-110 [facility] Work Phone: [phone] Potassium 4.1 mmol/L Invalid Interpretation Code 3.5-5.1 [facility] Work Phone: [phone] Protein 6.9 g/dL Invalid Interpretation Code 6.4-8.2 [facility] Work Phone: [phone] Sodium 140 mmol/L Invalid Interpretation Code 136-145 [facility] Work Phone: [phone] Urea nitrogen 11 mg/dL Invalid Interpretation Code 7-18 [facility] Work Phone: [phone] Lab Report: Ferritinon 01-17 Ferritin 14 ng/mL Invalid Interpretation Code 8-252 [facility] Work Phone: [phone] Lab Report: Ironon 6 Iron 77 ug/dL Invalid Interpretation Code 50-170 [facility] Work Phone: [phone] Lab Report: Iron Binding Cap acity,Totalon 01-18-2016 iron binding capacity, total 439 ug/dL Invalid Interpretation Code 250-450 [facility] Work Phone: [phone] Lab Report: LDHon 01-18-2016 lactate dehydrogenase - serum 252 U/L High 84-246 [facility] Work Phone: [phone] LDH 252 U/L High 84-246 [facility] Work Phone: [phone] Lab Report: Uric Acidon Urate 5.4 mg/dL Invalid Interpretation Code 2.6-6.0 [facility] Work Phone: Office Visiton 07-25-2015 Protein mass conc yes [facility] Work Phone: Smoking cessation education (procedure) yes Invalid Interpretation Code [facility] Work Phone: [phone] Lab Report: Vitamin B12on Cobalamin (Vitamin B12) mass conc 286 pg/mL 211-911 [facility] Work Phone: [phone] vitamin b12, serum 286 pg/mL Invalid Interpretation Code 911 [facility] Work Phone: [phone] Lab Report: Folates, (Folic Acid)on 06-27-2015 Folate 6.40 ng/mL Invalid Interpretation Code 3.1-17.5 [facility] Work Phone: Lab Report: CBC W/Diff, Auto matedon 01-03-2015 Erythrocyte distribution width Ratio (RBC) 41.3 fL 35.1-43.9 [facility] Work Phone: Immature granulocytes #/vol (Bld) 0.000 % 0.0-0.9 [facility] Work Phone: [phone] immature granulocytes, percentage of total cells, blood 0.000 % Invalid Interpretation Code 0.0-0.9 [facility] Work Phone: [phone] red blood cell distribution width, size density 41.3 fL Invalid Interpretation Code 35.1-43.9 [facility] Work Phone: [phone] Lab Report: CBC W/Diff, Auto - EPLAB Onlyon 11-15-2014 Absolute Neut 1.9 X10 3/UL Low 2.0-7.7 [facility] Work Phone: [phone] Absolute Neutrophil count 1.9 X10 3/UL Low 2.0-7.7 [facility] Work Phone: [phone] Lab Report: LDHon 11-15-2014 Lactate dehydrogenase (LDH) 205 U/L Invalid Interpretation Code 84-246 [facility] Work Phone: [phone] Lab Report: Haptoglobinon Haptoglobin 108 mg/dL Invalid Interpretation Code 34-200 [facility] Work Phone: [phone] Lab Report: [place] [employer] Ser. Mon.on 05-15-2014 GE use only - for [employer] import when terms are not otherwise specified . Invalid Interpretation Code [facility] Work Phone: [phone] K/L GRAPH . [facility] Work Phone: [phone] Replaced Document: (P) Eryth ropoietinon 05-14-2014 ERYTHROP [id number] 18.2 m[iU]/mL 2.6-18.5 Located [facility] r [facility] Work Phone: [phone] erythropoietin, serum 18.2 m[iU]/mL Invalid Interpretation Code 2.6-18.5 [facility] Work Phone: [phone] Replaced Document: (P) EMILY + Protein Elect, Serumon 05-14-2014 IgG 990 mg/dL Invalid Interpretation Code 700-1600 [facility] Work Phone: [phone] Lab Report: Bilirubin, Direc ton 05-10-2014 Bilirubin (direct) 0.09 mg/dL Invalid Interpretation Code 0.00-0.30 [facility] Work Phone: Lab Report: Retic Panelon Reticulocytes/100 erythrocytes 1.47 % Invalid Interpretation Code 0.5-1.5 [facility] Work Phone: Reticulocytes/100 RBC (Bld) 1.47 % 0.5-1.5 [facility] Work Phone: Lab Report: Thyroid Stim Hor chauncey (TSH)on 05-10-2014 Thyroid stimulating hormone (TSH) 2.52 u[iU]/mL Invalid Interpretation Code 0.358-3.74 [facility] Work Phone: Office Visit: 6 mo f/u (DEEPIKA/ neutropenia) PHQ9 Completeon 01-13-2014 Breast Mammogram screening Normal Bilateral Invalid Interpretation Code [facility] Work Phone: Office Visit: 6 mo f/u (DEEPIKA/ neutropenia) PHQ9 Completeon 01-12-2013 Colonoscopy (procedure) Colonoscopy (procedure) Invalid Interpretation Code [facility] Work Phone: [phone] Protein mass conc Colonoscopy (procedure) [facility] Work Phone: Vital Signs Date Time Vital Sign Value Performing Clinician Facility 01-04-2025 09:27-0400 Body height 172.[address] Eric Lozano [facility] Work Phone[facility] 01-04-2025 09:27-0400 Body mass index (BMI) [Ratio] 31.6 kg/m2 Dr. Eric Lozano MD Work Phone: [facility] 01-04-2025 09:27-0400 Body weight 94.[address] Eric Lozano MD Work Phone: [facility] 01-04-2025 09:27-0400 Diastolic blood pressure 83 mm[Hg] Dr. Eric Lozano MD Work Phone: [facility] 01-04-2025 09:27-0400 Heart rate 72 /min Dr. Eric Lozano MD Work Phone: [facility] 01-04-2025 09:27-0400 Respiratory rate 18 /min Dr. Eric Lozano MD Work Phone: [phone])703-607915 [place] [address] 01-04-2025 09:27-0400 SaO2% (BldA) [Mass fraction] 98 % Dr. Eric Lozano MD Work Phone: [phone])903-198697 [place] [address] 01-04-2025 09:27-0400 Systolic blood pressure 125 mm[Hg] Dr. Eric Lozano MD Work Phone: [phone])416-376497 [place] [address] 06-28-2024 11:05-0400 Heart rate 58 /min Dr. Eric Lozano MD Work Phone: [phone])418-727997 [place] [address] 06-28-2024 11:05-0400 Respiratory rate 19 /min Dr. Eric Lozano MD Work Phone: [phone])696-514697 [place] [address] 06-28-2024 11:05-0400 SaO2% (BldA) [Mass fraction] 94 % Dr. Eric Lozano MD Work Phone: 0([phone])531-552497 [place] [address] 06-28-2024 09:06-0400 Body height 172.[address] Eric Lozano MD Work Phone: [phone])[phone] [place] [address] 06-28-2024 09:06-0400 Body mass index (BMI) [Ratio] 31.9 kg/m2 Dr. Eric Lozano MD Work Phone: 6(615)767-181397 [place] [address] 06-28-2024 09:06-0400 Body temperature 97.2 [degF] Dr. Eric Lozano MD Work Phone: [phone])131-145397 [place] [address] 06-28-2024 09:06-0400 Body weight 95.[address] Eric Lozano MD Work Phone: 1(920)804-856997 [place] [address] 06-28-2024 09:06-0400 Diastolic blood pressure 65 mm[Hg] Dr. Eric Lozano MD Work Phone: [phone])836-446897 [place] [address] 06-28-2024 09:06-0400 Systolic blood pressure 195 mm[Hg] Dr. Eric Lozano MD Work Phone: [phone])260-481297 [place] [address] 06-06-2024 09:08-0500 Body temperature 98.01 [degF] Lynn Moomaw [employer]BBY LOOM FIXER.[employer] BANK CREDIT CLERK Work Phone: [facility] 06-06-2024 09:08-0500 Body weight 95.8 kg Lynn Moomaw [employer]BBY LOOM FIXER.[employer] BANK CREDIT CLERK Work Phone: [facility] 06-06-2024 09:08-0500 Diastolic blood pressure 78 mm[Hg] Lynn Moomaw [employer]BBY LOOM FIXER.[employer] BANK CREDIT CLERK Work Phone: [facility] 06-06-2024 09:08-0500 Heart rate 74 /min Lynn Moomaw [employer]BBY LOOM FIXER.[employer] BANK CREDIT CLERK Work Phone: [facility] 06-06-2024 09:08-0500 Respiratory rate 20 /min Lynn Moomaw [employer]BBY LOOM FIXER.[employer] BANK CREDIT CLERK Work Phone: [facility] 06-06-2024 09:08-0500 SaO2% (BldA) [Mass fraction] 98 % Lynn Moomaw [employer]BBY LOOM FIXER.[employer] BANK CREDIT CLERK Work Phone: [facility] 06-06-2024 09:08-0500 Systolic blood pressure 154 mm[Hg] Lynn Moomaw [employer]BBY LOOM FIXER.[employer] BANK CREDIT CLERK Work Phone: [facility] 05-26-2024 10:06-0500 Body temperature 99.7 [degF] Mira Clutter PA-C Work Phone: [facility] 05-26-2024 10:06-0500 Body weight 95.4 kg Mira Clutter PA-C Work Phone: [facility] 05-26-2024 10:06-0500 Diastolic blood pressure 68 mm[Hg] Mira Clutter PA-C Work Phone: [facility] 05-26-2024 10:06-0500 Heart rate 79 /min Mira Clutter PA-C Work Phone: [facility] 05-26-2024 10:06-0500 Respiratory rate 20 /min Mira Clutter PA-C Work Phone: [facility] 05-26-2024 10:06-0500 SaO2% (BldA) [Mass fraction] 98 % Mira Clutter PA-C Work Phone: [facility] 05-26-2024 10:06-0500 Systolic blood pressure 140 mm[Hg] Mira Valencia PA-C Work Phone: [facility] 04-01-2024 15:06-0500 Body temperature 98.6 [degF] Dr. Eric Lozano MD Work Phone: [facility] 04-01-2024 15:06-0500 Diastolic blood pressure 55 mm[Hg] Dr. Eric Lozano MD Work Phone: [facility] 04-01-2024 15:06-0500 Heart rate 73 /min Dr. Eric Lozano MD Work Phone: [facility] 04-01-2024 15:06-0500 Respiratory rate 17 /min Dr. Eric Lozano MD Work Phone: [facility] 04-01-2024 15:06-0500 SaO2% (BldA) [Mass fraction] 98 % Dr. Eric Lozano MD Work Phone: [facility] 04-01-2024 15:06-0500 Systolic blood pressure 140 mm[Hg] Dr. Eric Lozano MD Work Phone: [facility] 03-31-2024 11:17-0500 Body mass index (BMI) [Ratio] 30.4 kg/m2 Dr. Eric Lozano MD Work Phone: [facility] 03-31-2024 11:17-0500 Body weight [address] Eric Lozano MD Work Phone: [facility] 10-13-2023 09:21-0400 Body temperature 98.49 [degF] Katharine Gee [employer]Y LO[employer] FIXER.[employer] CREDIT CLERK Work Phone: [facility] 10-13-2023 09:21-0400 Body weight 89.2 kg Katharine Gee [employer]BBY LOOM FIXER.[employer] CREDIT CLERK Work Phone: [facility] 10-13-2023 09:21-0400 Diastolic blood pressure 80 mm[Hg] Katharine Gee [employer]BBY LO[employer] FIXER.[employer] B[employer] CREDIT CLERK Work Phone: [facility] 10-13-2023 09:21-0400 Heart rate 96 /min Katharine Gee [employer]BBY LO[employer] FIXER.[employer] BANK CREDIT CLERK Work Phone: [facility] 10-13-2023 09:21-0400 Respiratory rate 20 /min Katharine Gee [employer]BBY LO[employer] FIXER.[employer] BANK CREDIT CLERK Work Phone: [facility] 10-13-2023 09:21-0400 SaO2% (BldA) [Mass fraction] 99 % Katharine Gee [employer]BBY LO[employer] FIXER.[employer] CREDIT CLERK Work Phone: [facility] 10-13-2023 09:21-0400 Systolic blood pressure 128 mm[Hg] Katharine Gee [employer]BBY LO[employer] FIXER.[employer] BANK CREDIT CLERK Work Phone: [facility] 08-12-2023 10:29-0400 Body height 172.[address] Eric Lozano Work Phone: [facility] 08-12-2023 10:29-0400 Diastolic blood pressure 67 mm[Hg] Dr. Eric Lozano Work Phone: [facility] 08-12-2023 10:29-0400 Heart rate 58 /min Dr. Eric Lozano Work Phone: [facility] 08-12-2023 10:29-0400 SaO2% (BldA) [Mass fraction] 99 % Dr. Eric Lozano Work Phone: [facility] 08-12-2023 10:29-0400 Systolic blood pressure 109 mm[Hg] Dr. Eric Lozano Work Phone: [facility] 07-31-2023 14:42-0400 Body temperature 98 [degF] Dr. Eric Lozano Work Phone: [facility] 07-31-2023 14:42-0400 Diastolic blood pressure 62 mm[Hg] Dr. Eric Lozano Work Phone: [facility] 07-31-2023 14:42-0400 Heart rate 84 /min Dr. Eric Lozano Work Phone: [facility] 07-31-2023 14:42-0400 Respiratory rate 12 /min Dr. Eric Lozano Work Phone: [facility] 07-31-2023 14:42-0400 SaO2% (BldA) [Mass fraction] 98 % Dr. Eric Lozano Work Phone: [facility] 07-31-2023 14:42-0400 Systolic blood pressure 150 mm[Hg] Dr. Eric Lozano Work Phone: [facility] 07-31-2023 05:21-0400 Body mass index (BMI) [Ratio] 32.1 kg/m2 Dr. Eric Lozano Work Phone: [facility] 07-31-2023 05:21-0400 Body weight 95.[address] Eric Lozano Work Phone: [facility] 07-30-2023 16:00-0400 Inhaled oxygen flow rate 0 L/min Dr. Eric Lozano Work Phone: [facility] 07-29-2023 14:37-0400 Body height 172.[address] Eric Lozano Work Phone: [facility] 07-28-2023 15:00-0400 Body temperature 97.3 [degF] [facility] 07-28-2023 15:00-0400 Diastolic blood pressure 78 mm[Hg] [facility] 07-28-2023 15:00-0400 Heart rate 76 /min [facility] 07-28-2023 15:00-0400 Respiratory rate 16 /min [facility] 07-28-2023 15:00-0400 SaO2% (BldA) [Mass fraction] 96 % [facility] 07-28-2023 15:00-0400 Systolic blood pressure 116 mm[Hg] [facility] 07-28-2023 11:37-0400 Body height 172.72 cm [facility] 07-28-2023 11:37-0400 Body mass index (BMI) [Ratio] 34.3 kg/m2 [facility] 07-28-2023 11:37-0400 Body weight 102.51 kg [facility] 05-31-2023 17:47-0500 Body temperature 98 [degF] [facility] 05-31-2023 17:47-0500 Diastolic blood pressure 59 mm[Hg] [facility] 05-31-2023 17:47-0500 Heart rate 60 /min [facility] 05-31-2023 17:47-0500 Respiratory rate 16 /min [facility] 05-31-2023 17:47-0500 SaO2% (BldA) [Mass fraction] 95 % [facility] 05-31-2023 17:47-0500 Systolic blood pressure 141 mm[Hg] [facility] 05-31-2023 14:54-0500 Body height 172.72 cm [facility] 05-31-2023 14:54-0500 Body mass index (BMI) [Ratio] 35.9 kg/m2 [facility] 05-31-2023 14:54-0500 Body weight 107.3 kg [facility] 01-29-2023 12:21-0400 Body temperature 98.2 [degF] Ronaldo Karan [employer]Y LO[employer] FIXER.[employer] B[employer] CREDIT CLERK Work Phone: [facility] 01-29-2023 12:21-0400 Body weight 103.15 kg Ronaldo Karan [employer]Y LO[employer] FIXER.[employer] B[employer] CREDIT CLERK Work Phone: [facility] 01-29-2023 12:21-0400 Diastolic blood pressure 76 mm[Hg] Ronaldo Karan [employer]Y LO[employer] FIXER.[employer] BANK CREDIT CLERK Work Phone: [facility] 01-29-2023 12:21-0400 Heart rate 66 /min Ronaldo Kaarn [employer]Y LO[employer] FIXER.[employer] B[employer] CREDIT CLERK Work Phone: [facility] 01-29-2023 12:21-0400 Respiratory rate 16 /min Ronaldo Karan [employer]Y LO[employer] FIXER.[employer] B[employer] CREDIT CLERK Work Phone: [facility] 01-29-2023 12:21-0400 SaO2% (BldA) [Mass fraction] 96 % Ronaldo Karan [employer]Y LO[employer] FIXER.[employer] CREDIT CLERK Work Phone: [facility] 01-29-2023 12:21-0400 Systolic blood pressure 122 mm[Hg] Ronaldo Karan [employer]Y LO[employer] FIXER.[employer] B[employer] CREDIT CLERK Work Phone: [facility] 12-23-2022 10:38-0400 Body temperature 97.2 [degF] Ronaldo Russo [employer]BBY LOOM FIXER.[employer] BANK CREDIT CLERK Work Phone: [facility] 12-23-2022 10:38-0400 Body weight 102.6 kg Ronaldo Russo [employer]BBY LO[employer] FIXER.[employer] BANK CREDIT CLERK Work Phone: [facility] 12-23-2022 10:38-0400 Diastolic blood pressure 68 mm[Hg] Ronaldo Russo [employer]BBY LO[employer] FIXER.[employer] BANK CREDIT CLERK Work Phone: [facility] 12-23-2022 10:38-0400 Heart rate 85 /min Ronaldo Russo [employer]Y LO[employer] FIXER.[employer] B[employer] CREDIT CLERK Work Phone: [facility] 12-23-2022 10:38-0400 Respiratory rate 21 /min Ronaldo Russo [employer]BBY LO[employer] FIXER.[employer] BANK CREDIT CLERK Work Phone: [facility] 12-23-2022 10:38-0400 SaO2% (BldA) [Mass fraction] 97 % Ronaldo Russo [employer]BBY LOOM FIXER.[employer] BANK CREDIT CLERK Work Phone: [facility] 12-23-2022 10:38-0400 Systolic blood pressure 150 mm[Hg] Ronaldo Russo [employer]Y LO[employer] FIXER.[employer] BANK CREDIT CLERK Work Phone: [facility] 11-08-2022 08:38-0400 Body height 175.[address] Eric Lozano Work Phone: [facility] 11-08-2022 08:38-0400 Body mass index (BMI) [Ratio] 33.3 kg/m2 Dr. Eric Lozano Work Phone: [facility] 11-08-2022 08:38-0400 Body weight 102.[address] Eric Lozano Work Phone: [facility] 11-08-2022 08:38-0400 Diastolic blood pressure 73 mm[Hg] Dr. Eric Lozaon Work Phone: [facility] 11-08-2022 08:38-0400 Heart rate 56 /min Dr. Eric Lozano Work Phone: [facility] 11-08-2022 08:38-0400 Respiratory rate 16 /min Dr. Eric Lozano Work Phone: [facility] 11-08-2022 08:38-0400 SaO2% (BldA) [Mass fraction] 98 % Dr. Eric Lozano Work Phone: [facility] 11-08-2022 08:38-0400 Systolic blood pressure 152 mm[Hg] Dr. Eric Lozano Work Phone: [facility] 09-26-2022 08:50-0400 Body temperature 99.39 [degF] Faisal Mancini [employer]Y LO[employer] FIXER.[employer] B[employer] CREDIT CLERK Work Phone: [facility] 09-26-2022 08:50-0400 Body weight 102.97 kg Faisal Mancini [employer]Y LO[employer] FIXER.[employer] B[employer] CREDIT CLERK Work Phone: [facility] 09-26-2022 08:50-0400 Diastolic blood pressure 88 mm[Hg] Faisal Mancini [employer]BBY LOOM FIXER.[employer] BANK CREDIT CLERK Work Phone: [facility] 09-26-2022 08:50-0400 Heart rate 76 /min Faisal Mancini DOBBY LOOM FIXER.[employer] BANK CREDIT CLERK Work Phone: [facility] 09-26-2022 08:50-0400 Respiratory rate 18 /min Faisal Mancini [employer]BBY LO[employer] FIXER.[employer] BANK CREDIT CLERK Work Phone: [facility] 09-26-2022 08:50-0400 SaO2% (BldA) [Mass fraction] 96 % Faisal Mancini DOBBY LOOM FIXER.[employer] BANK CREDIT CLERK Work Phone: [facility] 09-26-2022 08:50-0400 Systolic blood pressure 134 mm[Hg] Faisal Mancini [employer]BBY LOOM FIXER.[employer] BANK CREDIT CLERK Work Phone: [facility] 08-15-2022 18:20-0400 Body temperature 98.1 [degF] Ronaldo Russo [employer]BBY LOOM FIXER.[employer] BANK CREDIT CLERK Work Phone: [facility] 08-15-2022 18:20-0400 Body weight 108.14 kg Ronaldo Karan [employer]Y LO[employer] FIXER.[employer] BANK CREDIT CLERK Work Phone: [facility] 08-15-2022 18:20-0400 Diastolic blood pressure 74 mm[Hg] Ronaldo Karan [employer]Y LO[employer] FIXER.[employer] BANK CREDIT CLERK Work Phone: [facility] 08-15-2022 18:20-0400 Heart rate 63 /min Ronaldo Karan [employer]Y LO[employer] FIXER.[employer] BANK CREDIT CLERK Work Phone: [facility] 08-15-2022 18:20-0400 Respiratory rate 16 /min Ronaldo Karan [employer]Y LO[employer] FIXER.[employer] BANK CREDIT CLERK Work Phone: [facility] 08-15-2022 18:20-0400 SaO2% (BldA) [Mass fraction] 97 % Ronaldo Karan [employer]Y LOOM FIXER.[employer] BANK CREDIT CLERK Work Phone: [facility] 08-15-2022 18:20-0400 Systolic blood pressure 130 mm[Hg] Ronaldo Karan [employer]Y LO[employer] FIXER.[employer] BANK CREDIT CLERK Work Phone: [facility] 04-13-2022 08:32-0500 Body temperature 98.49 [degF] Ronaldo Karan DOBBY LOOM FIXER.BLOOD BANK CREDIT CLERK Work Phone: [facility] 04-13-2022 08:32-0500 Body weight 107.05 kg Ronaldo Karan DOBBY LOOM FIXER.BLOOD BANK CREDIT CLERK Work Phone: [facility] 04-13-2022 08:32-0500 Diastolic blood pressure 68 mm[Hg] Ronaldo Karan DOBBY LOOM FIXER.BLOOD BANK CREDIT CLERK Work Phone: [facility] 04-13-2022 08:32-0500 Heart rate 88 /min Ronaldo Karan DOBBY LOOM FIXER.BLOOD BANK CREDIT CLERK Work Phone: [facility] 04-13-2022 08:32-0500 Respiratory rate 18 /min Ronaldo Karan DOBBY LOOM FIXER.BLOOD BANK CREDIT CLERK Work Phone: [facility] 04-13-2022 08:32-0500 SaO2% (BldA) [Mass fraction] 99 % Ronaldo Karan DOBBY LOOM FIXER.BLOOD BANK CREDIT CLERK Work Phone: [facility] 04-13-2022 08:32-0500 Systolic blood pressure 122 mm[Hg] Ronaldo Karan DOBBY LOOM FIXER.BLOOD BANK CREDIT CLERK Work Phone: [facility] 03-14-2022 09:52-0500 Body temperature 100 [degF] Anny Roach APRN.BLOOD BANK CREDIT CLERK Work Phone: [facility] 03-14-2022 09:52-0500 Body weight 106.69 kg Anny Roach APRN.BLOOD BANK CREDIT CLERK Work Phone: [facility] 03-14-2022 09:52-0500 Diastolic blood pressure 86 mm[Hg] Anny Roach APRN.BLOOD BANK CREDIT CLERK Work Phone: [facility] 03-14-2022 09:52-0500 Heart rate 74 /min Anny Roach APRN.BLOOD BANK CREDIT CLERK Work Phone: [facility] 03-14-2022 09:52-0500 Respiratory rate 18 /min Anny Roach APRN.BLOOD BANK CREDIT CLERK Work Phone: [facility] 03-14-2022 09:52-0500 SaO2% (BldA) [Mass fraction] 97 % Anny Roach APRN.BLOOD BANK CREDIT CLERK Work Phone: [facility] 03-14-2022 09:52-0500 Systolic blood pressure 142 mm[Hg] Anny Roach APRN.BLOOD BANK CREDIT CLERK Work Phone: [facility] 11-08-2021 09:10-0400 Body height 175.[address] Eric Lozano Work Phone: [facility] Work Phone: 11-08-2021 09:10-0400 Body mass index (BMI) [Ratio] 34 kg/m2 Dr. Eric Lozano Work Phone: [facility] Work Phone: 11-08-2021 09:10-0400 Body weight 104.[address] Eric Lozano Work Phone: [facility] Work Phone: 11-08-2021 09:10-0400 Heart rate 56 /min Dr. Eric Lozano Work Phone: [facility] Work Phone: 11-08-2021 09:10-0400 Respiratory rate 16 /min Dr. Eric Lozano Work Phone: [facility] Work Phone: 11-08-2021 09:10-0400 SaO2% (BldA) [Mass fraction] 98 % Dr. Eric Lozano Work Phone: [facility] Work Phone: 09-14-2021 10:05-0400 Body temperature 99 [degF] Anny Roach APRN.BLOOD BANK CREDIT CLERK Work Phone: [facility] 09-14-2021 10:05-0400 Body weight 107.78 kg Anny Roach APRN.BLOOD BANK CREDIT CLERK Work Phone: [facility] 09-14-2021 10:05-0400 Diastolic blood pressure 94 mm[Hg] Anny Roach APRN.BLOOD BANK CREDIT CLERK Work Phone: [facility] 09-14-2021 10:05-0400 Heart rate 85 /min Anny Roach APRN.BLOOD BANK CREDIT CLERK Work Phone: [facility] 09-14-2021 10:05-0400 Respiratory rate 22 /min Anny Roach APRN.BLOOD BANK CREDIT CLERK Work Phone: [facility] 09-14-2021 10:05-0400 SaO2% (BldA) [Mass fraction] 97 % Anny Roach APRN.BLOOD BANK CREDIT CLERK Work Phone: [facility] 09-14-2021 10:05-0400 Systolic blood pressure 168 mm[Hg] Anny Roach APRN.BLOOD BANK CREDIT CLERK Work Phone: [facility] 09-07-2021 10:22-0400 Body temperature 98.29 [degF] Anny Roach APRN.BLOOD BANK CREDIT CLERK Work Phone: [facility] 09-07-2021 10:22-0400 Body weight 110.68 kg Anny Roach APRN.BLOOD BANK CREDIT CLERK Work Phone: [facility] 09-07-2021 10:22-0400 Diastolic blood pressure 82 mm[Hg] Anny Roach APRN.BLOOD BANK CREDIT CLERK Work Phone: [facility] 09-07-2021 10:22-0400 Heart rate 82 /min Anny Roach APRN.BLOOD BANK CREDIT CLERK Work Phone: [facility] 09-07-2021 10:22-0400 Respiratory rate 24 /min Anny Roach APRN.BLOOD BANK CREDIT CLERK Work Phone: [facility] 09-07-2021 10:22-0400 SaO2% (BldA) [Mass fraction] 93 % Anny Roach APRN.BLOOD BANK CREDIT CLERK Work Phone: [facility] 09-07-2021 10:22-0400 Systolic blood pressure 152 mm[Hg] Anny Roach APRN.BLOOD BANK CREDIT CLERK Work Phone: [facility] 10-16-2016 15:12-0400 Heart rate 48 /min [...] Body Temperature 98 [degF] Nicole Weathers RN [facility] Work Phone: 01-22-2016 10:56-0400 BP Diastolic 75 mm[Hg] Nicole Weathers RN [facility] Work Phone: 01-22-2016 10:56-0400 BP Systolic 131 mm[Hg] Nicole Weathers RN [facility] Work Phone: 01-22-2016 10:56-0400 BSA (Body Surface Area) 2.26 m2 Nicole Weathers RN [facility] Work Phone: 01-22-2016 10:56-0400 Height 175.26 cm Nicole Weathers RN [facility] Work Phone: 01-22-2016 10:56-0400 Pulse (Heart Rate) 68 /min Nicole Weathers RN [facility] Work Phone: 01-22-2016 10:56-0400 Pulse Oximetry 95 % Nicole Weathers RN [facility] Work Phone: 01-22-2016 10:56-0400 Respiratory Rate 18 /min Nicole Weathers RN [facility] Work Phone: 01-22-2016 10:56-0400 Weight 112.36 kg Nicole Weathers RN [facility] Work Phone: 01-22-2016 10:56-0400 Weight 112.13 kg Nicole Weathers RN [facility] Work Phone: 07-25-2015 11:17-0400 Body Temperature 98.01 [degF] Nicole Weathers RN [facility] Work Phone: 05-09-2014 13:39-0500 Height 175.26 cm Nicole Weathers RN [facility] Work Phone: Encounters Encounter Date Encounter Type Care Provider Facility Start: 02-16-2025 End: 02-16-2025 ambulatory [place]ozano [place] Start: 02-15-2025 End: 02-15-2025 ambulatory [facility] Loz[facility] Start: 01-09-2025 End: 01-09-2025 ambulatory ERIC LOZANO Facility:[facility] Start: 01-04-2025 End: 01-04-[address] Sheeba Velasco MD -Laboratory Work Phone: Start: 01-04-2025 End: 01-04-[address] Eric Lozano MD Work Phone: -[facility] Start: 01-04-2025 End: 01-04-2025 ambulatory [facility] Facility[facility] Start: 12-23-2024 End: 12-23-[address] Eric Lozano MD Work Phone: -Outpatient Breast Imaging Start: 12-23-2024 End: 12-23-[address] Eric Lozano MD -Outpatient Breast Imaging Work Phone: Start: 12-23-2024 End: 12-23-2024 ambulatory Eric Lozano Facility[facility] Start: 10-19-2024 End: 10-19-[address] Eric Lozano MD Work Phone: -Laboratory [place] Start: 10-19-2024 End: 10-19-[address] Sheeba Velasco MD -Laboratory [place] Work Phone: Start: 10-19-2024 End: 10-19-2024 ambulatory [facility] Facility[facility] Start: 10-12-2024 End: 10-12-[address] Eric Lozano MD Work Phone: -[facility]atory [place] Start: 10-12-2024 End: 10-12-[address] Sheeba Velasco MD -Laboratory [place] Work Phone: Start: 10-12-2024 End: 10-12-2024 ambulatory [facility] Facility[facility] Start: 07-21-2024 End: 07-21-[address] Eric Lozano MD Work Phone: [facility] Work Phone: Start: 07-21-2024 End: 07-21-[address] Sheeba Velasco MD -Laboratory, [place] Work Phone: Start: 07-21-2024 End: 07-21-2024 ambulatory Sheeba Velasco Facility[facility] Start: 06-28-2024 End: 06-28-2024 Emergency department patient visit Dr. Eric Lozano MD Work Phone: -Emergency Department Work Phone: Start: 06-22-2024 End: 06-22-[address] Mario Taveras MD -[facility] Start: 06-22-2024 End: 06-22-2024 ambulatory Mario Taveras [place] Start: 06-06-2024 End: 06-06-2024 ambulatory ERIC LOZANO Facility:[facility] Start: 06-06-2024 End: 06-06-2024 Patient encounter procedure Lynn Braxton APRN.CNP Work Phone: [facility] Comment on above: Bacterial sinusitis (Primary Dx) Start: 05-26-2024 End: 05-26-2024 Office outpatient visit 25 minutes Mira Valencia PA-C Work Phone: [facility] Comment on above: Acute cough (Primary Dx); Viral bronchitis Start: 05-26-2024 End: 05-26-2024 ambulatory ERIC LOZANO Facility:[facility] Start: 05-26-2024 End: 05-26-2024 Subsequent hospital visit by physician [facility] Work Phone: Radiology Comment on above: Acute cough [R05.1] Start: 04-28-2024 End: 04-28-[address] Sheeba Velasco MD -Laboratory, [place] Work Phone: Start: 04-28-2024 End: 04-28-2024 ambulatory Sheeba Velasco Facility[facility] Start: 04-01-2024 Non-patient / Non-visit Dr. Sheri Lamb [facility] Work Phone: Start: 04-01-2024 ambulatory Eric Lozano Facility:[facility] Start: 03-31-2024 Non-patient / Non-visit Dr. Eric delvalle [facility] Work Phone: Start: 03-31-2024 End: 04-01-2024 ambulatory Eric Lozano Facility[facility] Start: 03-31-2024 End: 04-01-2024 Evaluation and management of inpatient Dr. Sheri Lamb DO [facility] Work Phone: Start: 03-31-2024 End: 03-31-2024 Patient encounter procedure Yudy Angel MAINTAINER CENTRAL OFFICE-C -Cat Scan, [facility] Work Phone: Start: 03-31-2024 End: 03-31-2024 ambulatory Eric Lozano Facility[facility] Start: 03-29-2024 End: 03-29-2024 ambulatory Vickey LOZANO Facility:[facility] Start: 10-13-2023 End: 10-13-2023 Subsequent hospital visit by physician Olamide [facility] Work Phone: Radiology Comment on above: Acute cough [R05.1] Start: 10-13-2023 End: 10-13-2023 Patient encounter procedure Katharine Gee APRN.BLOOD BANK CREDIT CLERK Work Phone: [facility] Comment on above: Acute cough (Primary Dx); URI, acute Start: 08-14-2023 End: 08-14-[address] Eric Lozano Work Phone: [facility] Work Phone: Start: 08-14-2023 End: 08-14-[address] Eric Lozano Work Phone: [facility]-Laboratory Work Phone: Start: 08-12-2023 Non-patient / Non-visit Dr. Arnoldo Lozano Work Phone: [facility] Start: 08-12-2023 End: 08-12-[address] Eric Lozano Work Phone: [facility] Work Phone: Start: 08-12-2023 End: 08-12-[address] Eric Lozano Work Phone: [facility] Work Phone: Start: 07-31-2023 Non-patient / Non-visit Dr. Arnoldo Lozano Work Phone: [facility] Work Phone: Start: 07-30-2023 Non-patient / Non-visit Dr. Arnoldo Lozano Work Phone: [facility] Work Phone: Start: 07-30-2023 Non-patient / Non-visit Dr. Arnoldo Lozano Work Phone: [facility] Start: 07-29-2023 Non-patient / Non-visit Dr. Arnoldo Lozano Work Phone: [facility] Work Phone: Start: 07-29-2023 Non-patient / Non-visit Dr. Arnoldo Lozano Work Phone: [facility] Start: 07-29-2023 Non-patient / Non-visit Dr. Arnoldo Lozano Work Phone: [facility] Start: 07-28-2023 End: 07-31-2023 Evaluation and management of inpatient [facility] Work Phone: Start: 06-05-2023 End: 06-05-2023 ambulatory [facility] Work Phone: Start: 06-05-2023 End: 06-05-2023 Patient encounter procedure [facility], [facility] Work Phone: Start: 05-31-2023 End: 05-31-2023 Emergency department patient visit [facility] Work Phone: Start: 04-21-2023 End: 04-21-2023 ambulatory [facility] Work Phone: Start: 04-21-2023 End: 04-21-2023 Patient encounter procedure [facility] Work Phone: Start: 02-25-2023 End: 02-25-2023 Subsequent hospital visit by physician [facility] Work Phone: Radiology Comment on above: Closed nondisplaced fracture of proximal phalanx of lesser toe of right foot, initial encounter [S92.514A] Start: 02-12-2023 End: 02-12-[address] Eric Lozano Work Phone: [facility] Work Phone: Start: 02-12-2023 End: 02-12-[address] Eric Lozano Work Phone: [facility] Work Phone: Start: 02-11-2023 End: 02-11-2023 Patient encounter procedure Marek Chauhan Work Phone: Podiatry Comment on above: Closed nondisplaced fracture of proximal phalanx of lesser toe of right foot, initial encounter Start: 01-29-2023 End: 01-29-2023 Subsequent hospital visit by physician Xr [facility] Work Phone: Radiology Comment on above: Toe injury, right, i nitial encounter [S99.921A] Start: 01-29-2023 End: 01-29-2023 Patient encounter procedure Ronaldo Russo APRN.CNP Work Phone: [facility] Comment on above: Closed nondisplaced fracture of proximal phalanx of lesser toe of right foot, initial encounter (Primary Dx); Toe injury, right, initial encounter Start: 12-23-2022 End: 12-23-2022 Patient encounter procedure Ronaldo Russo APRN.BLOOD BANK CREDIT CLERK Work Phone: [facility] Comment on above: Lower resp. tract in fection (Primary Dx) Start: 12-13-2022 End: 12-13-[address] Eric Lozano Work Phone: [facility] Work Phone: Start: 11-11-2022 End: 11-11-[address] Eric Lozano Work Phone: [facility] Work Phone: Start: 11-11-2022 End: 11-11-[address] Eric Lozano Work Phone: [facility] Work Phone: Start: 11-08-2022 End: 11-08-[address] Eric Lozano Work Phone: [facility] Work Phone: Start: 10-03-2022 End: 10-03-[address] Eric Lozano Work Phone: [facility] Work Phone: Start: 09-26-2022 Telephone encounter Anny Roach APRN.BLOOD BANK CREDIT CLERK Work Phone: [facility] Comment on above: Results Start: 09-26-2022 End: 09-26-2022 Subsequent hospital visit by physician Xr [facility] Work Phone: Radiology Comment on above: Acute cough [R05.1] Start: 09-26-2022 End: 09-26-2022 Office outpatient visit 25 minutes Faisal Mancini APRN.BLOOD BANK CREDIT CLERK Work Phone: [facility] Comment on above: Acute cough (Primary Dx); Viral illness; Suspected COVID-19 virus infection Start: 09-05-2022 End: 09-05-2022 ambulatory [facility] Work Phone: Start: 09-05-2022 End: 09-05-2022 Patient encounter procedure [facility] Start: 08-22-2022 End: 08-22-2022 Patient encounter procedure [facility] Start: 08-15-2022 End: 08-15-2022 Patient encounter procedure Ronaldo Russo APRN.BLOOD BANK CREDIT CLERK Work Phone: [facility] Comment on above: Pain in salivary gla nd region (Primary Dx) Start: 06-12-2022 End: 06-12-2022 ambulatory [facility] Work Phone: Start: 06-12-2022 End: 06-12-2022 Patient encounter procedure [facility] Start: 06-04-2022 End: 06-04-2022 ambulatory [facility] Work Phone: Start: 06-04-2022 End: 06-04-2022 Patient encounter procedure [facility] D[facility] Start: 04-22-2022 End: 04-22-2022 ambulatory [facility] Work Phone: Start: 04-22-2022 End: 04-22-2022 Patient encounter procedure [facility] Start: 04-13-2022 End: 04-13-2022 Patient encounter procedure Ronaldo Russo APRN.BLOOD BANK CREDIT CLERK Work Phone: [facility] Comment on above: Sinobronchitis (Prim vickie Dx) Start: 03-15-2022 Telephone encounter Daria moe PA-C Work Phone: [facility] Comment on above: Results Start: 03-14-2022 End: 03-14-2022 Patient encounter procedure Anny Roach APRN.BLOOD BANK CREDIT CLERK Work Phone: [facility] Comment on above: URI, acute (Primary Dx) Start: 02-26-2022 End: 02-26-[address] Eric Lozano Work Phone: [facility] Work Phone: Start: 02-26-2022 End: 02-26-[address] Eric Lozano Work Phone: [facility] Start: 01-01-2022 End: 01-01-[address] Eric Lozano Work Phone: [facility] Work Phone: Start: 01-01-2022 End: 01-01-[address] Eric Lozano Work Phone: [facility] Start: 11-27-2021 Non-patient / Non-visit Dr. Arnoldo Lozano Work Phone: [facility] Start: 11-27-2021 End: 11-27-[address] Eric Lozano Work Phone: [facility] Start: 11-08-2021 End: 11-08-[address] Eric Lozano Work Phone: [facility] Start: 11-08-2021 End: 11-08-[address] Eric Lozano Work Phone: [facility] Start: 10-19-2021 End: 10-19-2021 Patient encounter procedure [facility] Start: 09-14-2021 End: 09-14-2021 Patient encounter procedure Anny Roach APRN.BLOOD BANK CREDIT CLERK Work Phone: [facility] Comment on above: Cough (Primary Dx) Start: 09-07-2021 End: 09-07-2021 Patient encounter procedure Anny Roach APRN.BLOOD BANK CREDIT CLERK Work Phone: [facility] Comment on above: Cough (Primary Dx) Start: 07-11-2021 End: 07-11-2021 Patient encounter procedure [facility] Start: 07-06-2021 End: 07-06-2021 [facility] Start: 07-05-2021 End: 07-05-2021 [facility] Start: 07-04-2021 End: 07-04-2021 [facility] Start: 06-29-2021 End: 06-29-2021 [facility] Start: 06-21-2021 End: 06-21-2021 [facility] Start: 05-29-2021 End: 05-29-2021 Patient encounter procedure [facility] Start: 05-18-2021 End: 05-18-2021 Subsequent hospital visit by physician Xr [facility] Work Phone: Radiology Comment on above: Toe injury, left, in itial encounter [S99.922A] Start: 04-02-2021 Patient encounter procedure [facility] Start: 12-22-2020 End: 12-22-2020 Subsequent hospital visit by physician Xr [facility] Work Phone: Radiology Comment on above: URI, acute [J06.9] Procedures Date Procedure Procedure Detail Performing Clinician Start: 12-23-[address] Eric Lozano MD Work Phone: Start: 10-19-2024 In-vitro immunologic test Dr. Erci Lozano MD Work Phone: Comment on above: [...] the productionof interferon gamma. Chemiluminescence immunoassaymethodologyPerformed at: [address] [id number] Director: Wilfredo Apodaca PhD, Phone: [phone] Start: 06-28-[address] Eric [...] Radiologic exam chest 2 views Katharine osullivan DOBBY LOOM FIXER.BLOOD BANK CREDIT CLERK Work Phone: Start: 07-29-2023 Computed tomography of abdomen and pelvis with contrast Dr. Eric Lozano Work Phone: Start: 07-28-2023 CT angiography of chest with contrast Start: 06-05-2023 End: 06-05-2023 MRI of lower extremity Start: 05-31-2023 Radiologic examination of knee Start: 05-31-2023 Radiography of ankle Start: 01-29-2023 Radex toe minimum 2 views Ronaldoluca Russo DOBBY LOOM FIXER.BLOOD BANK CREDIT CLERK Work Phone: Start: 11-11-[address] Eric Lozano Work Phone: Start: 09-26-2022 Radiologic exam chest 2 views Faisal Addis DOBBY LOOM FIXER.BLOOD BANK CREDIT CLERK Work Phone: Start: 06-04-2022 Dual energy X-ray [...] Radex toe minimum 2 views Vianey Chamberlain DOBBY LOOM FIXER.BLOOD BANK CREDIT CLERK Work Phone: Start: 12-22-2020 Radiologic exam chest 2 views Katharine osullivan DOBBY LOOM FIXER.BLOOD BANK CREDIT CLERK Work Phone: Start: 10-16-2016 End: 10-16-2016 Dietary [...] Work Phone: Start: 06-29-2007 Mammography Anny Roach DOBBY LOOM FIXER.BLOOD BANK CREDIT CLERK Work Phone: Start: 06-26-2007 Lipid 1996 panel - Serum or Plasma Sun Russo APRN.BLOOD BANK CREDIT CLERK Work Phone: Acid fast bacilli culture Cytopathology proced ure, preparation of smear, genital source Plan of Treatment Date Care Activity Detail Author Start: 06-16-2025 Screening for malign ant neoplasm of colon [facility] Start: 11-17-2024 Urine microalbumin profile DTa P,Tdap,Td Vaccine (2 - Td or Tdap) [facility] Start: 06-28-2024 [facility] Start: 04-14-2024 Advance Directive Discussion Advance Directive Discussion [facility] Start: 04-01-2024 Patient discharge [facility] Start: 03-31-2024 Following clinical p [facility] protocol [facility] Start: 03-31-2024 Ambulation without limitation [facility] Start: 03-31-2024 Assessment of risk o f venous thromboembolism [facility] Start: 03-31-2024 Insertion of cathete r into peripheral vein [facility] Start: 03-31-2024 Providing care accor ding to [facility] Start: 03-31-2024 [facility] Start: 03-31-2024 Admission procedure [facility] Start: 03-31-2024 Inhalation therapy procedure [facility] Start: 12-14-2023 Influenza vaccination Influenza Vacc ine (#1) [facility] Start: 07-31-2023 Patient discharge [facility] Start: 07-29-2023 Referral to vascular surgeon [facility] Start: 07-28-2023 Following clinical p athway protocol [facility] Start: 07-28-2023 Application of brace [facility] Start: 07-28-2023 Assessment of risk o f venous thromboembolism [facility] Start: 07-28-2023 Fall prevention [facility] Start: 07-28-2023 Inhalation therapy procedure [facility] Start: 07-28-2023 Insertion of cathete r into peripheral vein [facility] Start: 07-28-2023 Introduction of urin vickie catheter [facility] Start: 07-28-2023 Measuring intake and output [facility] Start: 07-28-2023 Oxygen therapy [facility] Start: 07-28-2023 Providing care accor ding to [facility] Start: 07-28-2023 Provision of activit y privileges [facility] Start: 07-28-2023 Referral to occupati onal therapist [facility] Start: 07-28-2023 Referral to service [facility] Start: 07-28-2023 Tobacco use cessatio n education [facility] Start: 07-28-2023 [facility] Start: 07-28-2023 Brain natriuretic pe ptide measurement [facility] Start: 07-28-2023 Verification routine [facility] Start: 07-28-2023 Partial thromboplast in time, activated [facility] Start: 07-28-2023 Prothrombin time [facility] Start: 07-28-2023 Hospital admission, emergency, from emergency room, medical nature [facility] Start: 07-28-2023 Admission procedure [facility] Start: 07-28-2023 End: 07-29-2023 [facility] Start: 07-28-2023 Patient referral to dietitian [facility] Start: 05-31-2023 [facility] Start: 05-31-2023 Application long leg splint thigh ankle/toes APPLICATION [facility] Start: 04-14-2023 Advance Directive Discussion Advance Directive Discussion [facility] Start: 04-14-2023 Behavioral Health Screening Behavioral Health Screening [facility] Start: 12-13-2022 Influenza vaccination [facility] Start: 09-26-2022 End: 10-10-2022 Influenza virus A and B RNA and SARS-CoV-2 (COVID-19) N gene panel - Respiratory specimen by JANA with probe detection [facility] Work Phone: Comment on above: Expected: 09/26/2022 , Expires: 10/10/2022 Start: 04-14-2022 ADVANCE DIRECTIVE DISCUSSION ADVANCE DIRECTIVE DISCUSSION [facility] Start: 04-14-2022 DEPRESSION ASSESSMENT DEPRESSION ASS ESSMENT [facility] Start: 03-14-2022 End: 03-28-2022 Influenza virus A and B RNA and SARS-CoV-2 (COVID-19) N gene panel - Respiratory specimen by JANA with probe detection [facility] Work Phone: Comment on above: Expected: 03/14/2022 , Expires: 03/28/2022 Start: 12-13-2021 Influenza vaccination [facility] Start: 04-14-2021 ADVANCE DIRECTIVE DISCUSSION ADVANCE DIRECTIVE DISCUSSION [facility] Start: 04-14-2021 DEPRESSION ASSESSMENT DEPRESSION ASS ESSMENT [facility] Start: 05-08-2018 Pneumococcal Vaccine : 65+ (3 - PPSV23 or PCV20) Pneumococcal Vaccine: 65+ (3 - PPSV23 or PCV20) [facility] Start: 01-23-2018 Pneumococcal Vaccine : 50+ (3 of 3 - PPSV23, PCV20 or PCV21) Pneumococcal Vaccine: 50+ (3 of 3 - PPSV23, PCV20 or PCV21) [facility] Start: 01-23-2018 Pneumococcal Vaccine : 65+ (3 of 3 - PPSV23 or PCV20) Pneumococcal Vaccine: 65+ (3 of 3 - PPSV23 or PCV20) [facility] Start: 10-10-2017 End: 10-10-2017 Appointment Appointment [facility] Work Phone: Start: 01-20-2017 BONE DENSITY BONE DENSITY [facility] Start: 01-20-2017 Bone Density Screening Bone Density Screening [facility] Start: 01-20-2017 Screening for osteoporosis Bone Dens ity Screening [facility] Start: 10-16-2016 End: 10-16-2016 Appointment Appointment [facility] Work Phone: Start: 10-16-2016 End: 10-31-2016 Echocardiography Echocardiogram (complete) [facility] Work Phone: Start: 10-16-2016 End: 10-16-2016 Follow Up Appt 1 year Follow Up Appt 1 year [facility] Work Phone: Start: 10-16-2016 [...] 07-15-2016 End: 01-22-2016 Cobalamins (Vitamin B12) *B-12 [facility] Work Phone: Start: 07-15-2016 End: 01-22-2016 Ferritin *Ferritin [facility] Work Phone: Start: 07-15-2016 End: 01-22-2016 Iron and Iron binding capacity panel - Serum or Plasma *IBC Iron & Total Iron Binding Capacity [facility] Work Phone: Start: 04-22-2016 End: 01-22-2016 *CBC w/Diff - oncology ONLY *CBC w/Diff - oncology ONLY [facility] Work Phone: Start: 01-22-2016 End: 07-25-2015 *CBC with Differential *CBC with Differential [facility] Work Phone: Start: 01-22-2016 End: 07-25-2015 *CMP Complete Metabolic Panel *CMP Complete Metabolic Panel [facility] Work Phone: Start: 01-22-2016 End: 01-22-2016 Echo exam of abdomen US Abdomen, limited [facility] Work Phone: Start: 01-22-2016 End: 07-25-2015 Ferritin *Ferritin [facility] Work Phone: Start: 01-22-2016 End: 07-25-2015 Iron *Iron [facility] Work Phone: Start: 01-22-2016 End: 07-25-2015 Iron binding capacity [Mass/volume] in Serum or Plasma *TIBC [facility] Work Phone: Start: 01-22-2016 End: 07-25-2015 Lactate dehydrogenase (LDH) *LDH -LDH (Lactate Dehydrogenase) [facility] Work Phone: Start: 01-22-2016 End: 01-22-2016 Mammogram, both breasts Mammogram, Diagnostic, both breasts [facility] Work Phone: Start: 01-22-2016 End: 01-22-2016 Mammogram, screening Mammogram, Screening, both breasts [facility] Work Phone: Start: 01-22-2016 End: 07-25-2015 Urate *Uric Acid Blood [facility] Work Phone: Start: 10-23-2015 End: 07-25-2015 *CBC with Differential *CBC with Differential [facility] Work Phone: Start: 10-23-2015 End: 10-23-2015 *CMP Complete Metabolic Panel *CMP Complete Metabolic Panel [facility] Work Phone: Start: 10-23-2015 End: 10-23-2015 Ferritin *Ferritin [facility] Work Phone: Start: 10-23-2015 End: 10-23-2015 Iron *Iron [facility] Work Phone: Start: 10-23-2015 End: 10-23-2015 Iron binding capacity [Mass/volume] in Serum or Plasma *TIBC [facility] Work Phone: Start: 10-23-2015 End: 10-23-2015 Lactate dehydrogenase (LDH) *LDH -LDH (Lactate Dehydrogenase) [facility] Work Phone: Start: 10-23-2015 End: 10-23-2015 Urate *Uric Acid Blood [facility] Work Phone: Start: 06-27-2015 End: 03-28-2015 *CBC with Differential *CBC with Differential [facility] Work Phone: Start: 06-27-2015 End: 06-27-2015 *CMP Complete Metabolic Panel *CMP Complete Metabolic Panel [facility] Work Phone: Start: 06-27-2015 End: 06-28-2015 Cobalamins (Vitamin B12) *B-12 [facility] Work Phone: Start: 06-27-2015 End: 06-27-2015 Ferritin *Ferritin [facility] Work Phone: Start: 06-27-2015 End: 03-28-2015 Folate *FOLS Folates-Folic Acid, Serum [facility] Work Phone: Start: 06-27-2015 End: 06-27-2015 Iron *Iron [facility] Work Phone: Start: 06-27-2015 End: 06-27-2015 Iron binding capacity [Mass/volume] in Serum or Plasma *TIBC [facility] Work Phone: Start: 06-27-2015 End: 06-27-2015 Lactate dehydrogenase (LDH) *LDH -LDH (Lactate Dehydrogenase) [facility] Work Phone: Start: 06-27-2015 End: 06-27-2015 Urate *Uric Acid Blood [facility] Work Phone: Start: 03-28-2015 End: 11-22-2014 *CBC with Differential *CBC with Differential [facility] Work Phone: Start: 02-14-2015 End: 11-22-2014 *CBC with Differential *CBC with Differential [facility] Work Phone: Start: 01-03-2015 End: 01-03-2015 *CBC with Differential *CBC with Differential [facility] Work Phone: Start: 11-15-2014 End: 11-08-2014 *CBC with Differential *CBC with Differential [facility] Work Phone: Start: 11-15-2014 End: [...] 08-15-2014 End: 08-16-2014 Cobalamins (Vitamin B12) *B-12 [facility] [employer] [facility] Work Phone: Start: 08-15-2014 End: 08-15-2014 Ferritin *Ferritin [facility] Work Phone: Start: 08-15-2014 End: 08-18-2014 Haptoglobin *HAP Haptoglobin [facility] Work Phone: Start: 08-15-2014 End: 08-15-2014 Iron *Iron [facility] Work Phone: Start: 08-15-2014 End: 08-15-2014 Iron binding capacity [Mass/volume] in Serum or Plasma *TIBC [facility] Work Phone: Start: 08-15-2014 End: 08-15-2014 Lactate dehydrogenase (LDH) *LDH -LDH (Lactate Dehydrogenase) [facility] Work Phone: Start: 08-15-2014 End: 08-15-2014 Urate *Uric Acid Blood [facility] Work Phone: Start: 06-25-2012 Lipid 1996 panel - S mona or Plasma Lipid Screening [facility] Start: 06-25-2012 Lipid panel Lipid Screening [facility] Start: 06-25-2012 LIPID SCREEN LIPID SCREEN [facility] Start: 2012 RSV Vaccine (1 - 1-d ose 60+ series) RSV Vaccine (1 - 1-dose 60+ series) [facility] Start: 2012 RSV Vaccine (1 - Ris k 60-74 years 1-dose series) RSV Vaccine (1 - Risk 60-74 years 1-dose series) [facility] Start: 06-25-2010 DIABETES SCREEN DIABETES SCREEN [facility] Start: 06-25-2010 Diabetes Screening Diabetes Screenin g [facility] Start: 06-28-2008 Mammography [facility] Start: 06-28-2008 Screening for malign ant neoplasm of breast Mammogram Screening [facility] Start: 01-20-2002 Influenza vaccination LUNG CANCER [facility] Start: 01-20-2002 Screening for malign ant neoplasm of lung Lung Cancer Screening [facility] Start: 01-20-2002 SHINGRIX VACCINE (1 of 2) VILLAR GRIX VACCINE (1 of 2) [facility] Start: 01-20-1997 COLOGUARD (FIT-DNA) COLOGUARD (FIT-D NA) [facility] Start: 01-20-1997 Colonoscopy COLONOSCOPY [facility] Start: 01-20-1997 COLORECTAL CANCER SCREENING COLORECTAL CANCER SCREENING [facility] Start: 01-20-[address] COLONOGRAPHY [facility] Start: 01-20-1997 FECAL OCCULT BLOOD FECAL OCCULT BLOO D [facility] Start: 01-20-1997 Screening for malign ant neoplasm of colon [facility] Start: 01-20-1997 SIGMOIDOSCOPY SIGMOIDOSCOPY [facility] Start: 01-20-1971 SHINGRIX VACCINE (1 of 2) VILLAR GRIX VACCINE (1 of 2) [facility] Start: 01-20-1971 Urine microalbumin profile DTAP,TDAP ,TD (1 - Tdap) [facility] Start: 01-20-1970 Anxiety Screening Anxiety Screening [facility] Start: 01-20-1970 Depression Screening Depression Scre ening [facility] Start: 01-20-1970 HEPATITIS C SCREENING HEPATITIS C [facility] Start: 01-20-1970 Hepatitis C screening Hepatitis C [facility] Start: 1964 Adult depression scr ning assessment DEPRESSION SCREENING [facility] Start: 01-20-1963 Screening for malign ant neoplasm of cervix Cervical Cancer Screening [facility] Start: 01-20-1958 PNEUMOCOCCAL: 65+ (1 - PCV) PNEUMOCOCCAL: 65+ (1 - PCV) [facility] Start: 01-20-1957 COVID-19 VACCINE (#1) COVID-19 VACCI NE (#1) [facility] Start: 1950 COVID-19 VACCINE (#1) COVID-19 VACCI NE (#1) [facility] Cyclic citrullinated peptide IgG Ab [Units/volume] in Serum or Plasma [facility] Work Phone: INR in Blood by Coagulation assay [facility] Magnesium [Mass/volu me] in Serum or Plasma [facility] Patient Education [facility] Work Phone: Patient referral [facility] Work Phone: [facility] Work Phone: [facility] End: 03-12-2024 XR TOE AP/LAT/OBL RIGHT XR TOE AP/LAT/OBL RIGHT Radiology Routine Closed nondisplaced fracture of proximal phalanx of lesser toe of right foot, initial encounter 1 Occurrences starting 02/11/2023 until 03/12/2024 [facility] Work Phone: Comment on above: 1 Occurrences starti ng 02/11/2023 until 03/12/2024 XR TOE AP/LAT/OBL RIGHT XR TOE A P/LAT/OBL RIGHT Radiology Routine Closed nondisplaced fracture of proximal phalanx of lesser toe of right foot, initial encounter 02/25/2023 10:13 AM EST [facility] Work Phone: [facility] Immunizations Immunization Date Immunization Notes Care Provider Kody padilla 03-01-2019 influenza, injectabl e, quadrivalent, contains preservative Mira Valencia PA-C Work Phone: [facility] 03-01-2019 influenza virus vacc ine, unspecified formulation Ronaldo Russo APRN.CNP Work Phone: [facility] 05-08-2017 pneumococcal conjuga te vaccine, 13 valent Mira SIMPSON-Margo Work Phone: [facility] 11-17-2014 tetanus toxoid, redu sidra diphtheria toxoid, and acellular pertussis vaccine, adsorbed Mira SIMPSON-Margo Work Phone: [facility] 04-14-2013 influenza, seasonal, injectable Mira SIMPSON-Margo Work Phone: [facility] 01-23-2013 pneumococcal polysaccharide vaccine, 23 valent Mira SIMPSON-Margo Work Phone: [facility] 01-23-2013 Pneumococcal Vaccine [facility] Work Phone: 01-23-2013 pneumococcal vaccine , unspecified formulation Dr. Eric Lozano Work Phone: [facility] Payers Date Payer Category Payer Self-pay [id number] 2017 Medicare MEDICARE MEDICAR E A AND B [id number] 2017-Present [phone] [address] [address] [place] [address] Medicare [id number] 2017 Medicare [id number] 2017 Private Health Insurance HUMANA HUMANA MEDICARE SUPPLEMENT [id number] 2017-Present [phone] [address] [address] [place] [address] Indemnity [id number] 2017 Private Health Insurance [id number] 2017 Medicare [id number] 2017 Private Health Insurance [id number] 2014 Unknown [id number] Unknown [id number] Unknown [id number] .2.462 Unknown [id number] .2.462 Unknown [id number] [id number] .2.462 Unknown [id number] [id number] .2.462 Unknown [id number] [id number] .2.462 Unknown [id number] [id number] .2.462 Unknown [id number] 2.16.840.1.461720.3.579 .2.462 Unknown [id number] 2.16.840.1.644978.3.579 .2.462 Unknown [id number] 2.16.840.1.844243.3.579 .2.462 Unknown [id number] 2.16.840.1.012005.3.579 .2.462 Unknown [id number] 2.16.840.1.577788.3.579 .2.462 Unknown [id number] 2.16.840.1.694660.3.579 .2.462 Unknown [id number] 2.16.840.1.898967.3.579 .2.462 Unknown [id number] [id number] .2.462 Unknown [id number] .2.462 Social History Date Type Detail Facility Start: 11-01-2020 End: 07-28-2023 Tobacco smoking status KYIS Unknown if ever smoked [facility] Start: 11-10-2019 None [facility] Start: 11-10-2019 Spouse/ Signif icant Other [facility] Start: 11-10-2019 Cigarettes [facility] Start: 1950 Sex Assigned At Female W [facility] Start: 12-22-2020 [facility] Start: 04-14-1982 End: 04-14-2012 History of tobacco use Cigarette Smoker [facility] Start: 09-07-2021 End: 03-29-2024 Alcohol intake Current non-drinker of alcohol (finding) [facility] Start: 1950 Sex Assigned At Not on file [facility] Start: 09-14-2021 End: 06-28-2024 Tobacco smoking status NHIS Ex-smoker [facility] Start: 09-14-2021 End: 02-11-2023 Cigarettes smoked current (pack per day) - Reported 1 [facility] Start: 09-14-2021 End: 03-29-2024 Tobacco use and exposure Smokeless tobacco non-user [facility] Start: 09-14-2021 End: 03-14-2022 Tobacco Comment d/c 2009 [facility] Start: 11-22-2020 End: 03-14-2022 Exposure to SARS-CoV-2 (event) Not sure [facility] Work Phone: Start: 04-14-1982 End: 04-14-2012 History of tobacco use Current smoker [facility] Start: 12-23-2022 End: 02-11-2023 Tobacco use panel [facility] National Score (1-10 0), lower number is lower risk Not on file [facility] Start: 06-28-2024 End: 07-26-2024 Sex Female (finding) [facility] Goals Date Patient Goal Desired Activity /State Functional Status Date Assessment Result Facility 04-01-2024 Functional status Ambulates;Bathroom Priv ilege [facility] Work Phone: 07-31-2023 Functional status Bedside Commode [facility] Work Phone: 07-30-2023 Functional status Assistive Tosin meseret Standard Walker [facility] Work Phone: Mental Status Date Assessment Result Facility 06-28-2024 Cognitive function Level Of Cons ciousness Awake;Alert;Appropriate;Follow s Commands [facility] Work Phone: 04-01-2024 Cognitive function Voice/Name [facility] Work Phone: 07-31-2023 Cognitive function Voice/Name [facility] Work Phone: Clinical Notes 07-15-2007 to 01-09-2025 Note Date & Type Note Facility 01-09-2025 Note HNO ID: [id number] Author: KELSEA HUERTA RT(R) Service: ? Author [...] PATIENT PRESENTS WITH AN IMPLANTABLE OR ATTACHED SHOE CLERK: No RADIOLOGY DEPARTMENT: General X-ray: Exam(s) Completed: Chest X-Ray PERIPHERAL IV DATA: Not applicable SIGNED BY: RT Vilma(R) January 09, 2025 10:52 AM [facility] 01-09-2025 Note HNO ID: [id number] Author: FAISAL MANCINI APRN.BLOOD BANK CREDIT CLERK Service: ? Author Type: Nurse Practitioner Type: [...] of care. This note was generated using [employer] software. It may contain errors in wording, punctuation, or spelling. Faisal Mancini APRN.BLOOD BANK CREDIT CLERK History and Record Review Clinical information obtained from an independent historian. History obtained from or confirmed by: parent. External record(s) reviewed: prior outpatient record. Disposition The patient was discharged. Procedures [facility] 01-04-2025 Evaluation note Diagnosis Onset Date Resolution Right ventricular dilation, secondary acute January 042024 9:18am Essential hypertension chronic Se ptember 2024 9:18am Paroxysmal supraventricular tachycardia chronic January 04, 2025 9:18am [facility] Work Phone: 1(425) 116-152909-23-2025 [facility] 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 Follow Up: 1 Year (CHANGE MANAGEMENT DIRECTOR) Coding Level of Care Code Off vis,est,level [...] applicable) CC: Dr. Eric Lozano MD ~ [facility]03-17-2025 Discharge summary [facility] Medical Records Department [address] [place] [address] Emergency Department Summary 06/28/24 MR#: [id number] Acct: [id number] Name: KIKO GODFREY Rep #:[id number] : 1950 74 From: Gladis Chavez PCP: Dr. Eric Lozano MD Status:[facility] ER Location: ED HPI History [...] complaints or concerns reported at this time. [facility] Medical History Anxiety and depression Schizophrenia Rheumatoid [...] 70.5 H Lymph % (Auto) 18.4 L Hanson % (Auto) 9.0 Eos % (Auto) 0.7 [...] 2. Additional description as above. Reading Location: [facility] Rhythm Strip Rhythm Strip: Sinus Rhythm [...] for cough or chest tightness Print Language: Syriac What to do if you have Problems For any increased pain, shortness of breath, bleeding, nausea or vomiting, chestpain, or any unexpected problems, contact your Primary Care Provider. Call [facility] ([phone]) or report tothe closest Emergency Room. Call 911 if necessary. 06/28/24 1238 Cosigner Signature (if applicable): CC: Dr. Eric Lozano MD ~ Signed [facility]03-17-2025 Radiology Diagnostic study note [facility] Imaging Services [address] [place] [address] Chest PA and Lateral MR#: [id number] Acct: [id number] Name: KIKO GODFREY Rep #: [id number] : 1950 F 74 From: Erlinda Albert MD PCP: Dr. Eric Lozano MD Status: PRE ER Study:Chest PA and Lateral Date of Exam: 06/28/24 Exam# [id number] Ordering Dr: Margo Moralez DO PROCEDURE: CHEST [...] 2. Additional description as above. Reading Location: [id number] CC: Dr. Gladis Moralez DO; Dr. Eric Lozano MD ~ Wildlife Conservationist: Signed [facility]02-23-2025 NoteHNO ID: [id number] Author: LYNN BRAXTON APRN.BLOOD BANK CREDIT CLERK Service: ? Author Type: Nurse Practitioner Type: Progress Notes Filed: 06/06/2024 09:19 Note Text: This note was created using [employer]. Subjective Kiko Godfrey is a 74 year old female. HPI Patient presents today for 2 weeks of sinus pain pressure, chest congestion, runny nose and rhinorrhea. Denies any recent fevers. She was seen here about 10 days ago and diagnosed with viral illness with a negative chest x-ray and has been using Tessalon Perles and other oqlg-ddf-vxcycxi treatments with no relief of symptoms. She [...] MG-POTASSIUM CLAVULANATE 125 MG TABLET [facility] Braxton [facility] History of Present illness Narrative* Lynn Braxton APRN.JARED - 06/06/2024 9:16 AM EST This note was created using [employer]. Subjective Kiko Godfrey is a 74 year old female. HPI Patient presents today for 2 weeks of sinus pain pressure, chest congestion, runny nose and rhinorrhea. Denies any recent fevers. She was seen here about 10 days ago and diagnosed with viral illness with a negative chest x-ray and has been using Tessalon Perles and other alrg-nve-rttmlgs treatmentswith no relief of symptoms. She notes [...] TABLET Lynn Braxton APRN.JARED [facility] NoteHNO ID: [id number] Author: MIRA VALENCIA PA-C Service: ? Author Type: Physician Tar And Ammonia Pump Operator Type: Progress Notes Filed: 05/26/2024 11:42 Note Text: This note was created using [employer]. Subjective Kiko Godfrey is a 74 year [...] TABLET - BENZONATATE 100 MG CAPSULE TATIANA [facility]02-12-2025 History of Present illness Narrative* Mira Valencia PA-C - 05/26/2024 11:38 AM EST This note was created using [employer]. Subjective Kiko Godfrey is a 74 year [...] CAPSULE Mira Valencia PA-C documented [facility] History of Present illness Narrative* Marcelo [...] PATIENT PRESENTS WITH AN IMPLANTABLE OR ATTACHED SHOE CLERK: No RADIOLOGY DEPARTMENT: General X-ray: Exam(s) Completed: Chest X-Ray PERIPHERAL IV DATA: Not applicable SIGNED BY: RT Jesus(Fabrice) May 26, 2024 10:19 AM documented in [facility]25 NoteHNO ID: [id number] Author: MARCELO OROPEZA RT(R) Service: Radiology Author [...] PATIENT PRESENTS WITH AN IMPLANTABLE OR ATTACHED SHOE CLERK: No RADIOLOGY DEPARTMENT: General X-ray: Exam(s) Completed: Chest X-Ray PERIPHERAL IV DATA: Not applicable SIGNED BY: RT Jesus(Fabrice) May 26, 2024 10:19 [facility]12-19-2024 [facility] Medical Records Department [address] [place] [address] Discharge Summary 04/01/24 1430 MR#: [id number] Acct: [id number] Name: KIKO GODFREY Rep #: [id number] : 1950 74 From: Sheri Lamb DO PCP: Dr. Eric Lozano MD Status:ADM EMILIANO Location: [place] [address] Providers Date of Admission: 03/31/24 Primary Care [...] who presented to the [facility] at [facility] 03/31/2024 with a chief complaint [...] General Appearance: cooperative, co (more content not included)...[facility]12-18-2024 Evaluation note* Diagnosis Onset Date Resolution Status Admit Date COPD exacerbation resolved Priscilla lauren 2023 10:32am [facility] Work Phone: [phone] NoteHNO ID: [id number] Author: MIRA VALENCIA PA-C Service: ? Author Type: Physician Tar And Ammonia Pump Operator Type: Progress Notes Filed: 03/29/2024 14:33 Note Text: This note was created using FrienditePlus. Subjective Kiko Godfrey is a 74 year [...] AEROSOL INHALER - INHALATIONAL SPACING DEVICE [facility]24 NoteHNO ID: [id number] Author: MIRA VALENCIA PA-C Service: ? Author Type: Physician Tar And Ammonia Pump Operator Type: Progress Notes Filed: 03/29/2024 14:33 Note Text: This note was created using What's More Alive Than Youriter. Subjective Kiko Godfrey is a 74 year old female. HPI Review of Systems Objective BP 132/74 Pulse 70 Temp 36.5 ?C (97.7 ?F) Resp 16 Wt 93.1 kg (205 lb 4 oz) SpO2 99% [facility] History of Present illness Narrative* Mihaela Adams, [...] PATIENT PRESENTS WITH AN IMPLANTABLE OR ATTACHED SHOE CLERK: No RADIOLOGY DEPARTMENT: General X-ray: Exam(s) Completed: Chest X-Ray PERIPHERAL IV DATA: Not applicable SIGNED BY: RT Maximino(R) October 13, 2023 9:40 AM documented in this encounterBl[facility] History of Present illness Narrative* Katharine Gee APRN.BLOOD BANK CREDIT CLERK - 10/13/2023 9:32 AM EDT This note was created using FrienditePlus. Subjective Kiko Godfrey is a 73 year [...] history is provided by the patient. No wastewater treatment engineer was used. Cough This is a new [...] sooner if worsening of symptoms Katharine Gee APRN.BLOOD BANK CREDIT CLERK documented in this encounterBlanchard Valley [facility]04[facility] Discharge summary Author Dmitry [facility] July 31, 2023 12:04pm Note Date/Time July 31, 2023 11: 12am [facility] Medical Records Department [address] [facility] [place] [address] Instructions for Home/Discharge Instructions 07/31/23 1112 MR#: [id number] Acct: [id number] Name: KIKO GODFREY Rep #:[id number] : 1950 73 From: Dmitry Gordon arnoldo [...] MD; Dr. Eric Olmos MD ~ [facility] Work Phone: 1(731) 357-570004-17-2024 Progress note Author [facility] July 30, 2023 4:10pm Note Date/Time July 30, 2023 2:4 5pm [facility] Medical Records Department [address] [place] [address] Progress Note - Hospitalist 07/30/23 1444 MR#: [id number] Acct: [id number] Name: KIKO GODFREY Rep #:[id number] : 1950 73 From: Dmitry virk DO PCP: Dr. Eric Lozano MD Status:ADM IN Location: [place] [address] Reason for Visit Reason for Visit: Diagnoses [...] 73 year old female who [facility] with shortness of breath [...] weeks for possible venogram. Will transition to [facility] on evening of 07/29. Plan for O2 [...] 35 minutes. 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 Eric Lozano MD Status:ADM IN Location: [place] [address] Assessment & Plan Assessment/Plan (1) Bilateral pulmonary [...] medicationsas indicated. This note was generated with SameGrain dictation software. It may contain incorrectwords, spelling, [...] is maintaining appropriate oxygensaturations on room air. [facility] Medical History (Updated 07/29/23 @ 17:42 by [...] EDT , Charges/Coding Visit Charges Inpatient E&M: 60245 Init Hosp L3 07/30/23 1048 <Electronically signed by Amanuel Wheeler DO> Cosigner Signature (if applicable): CC: Dr. Eric Lozano MD~ [facility] Work Phone: 1(287) 948-181804-17-2024 Consult note Author Eric Olmos [facility] July 30, 2023 7:37am Note Date/Time July 29, 2023 5:2 3pm [facility] Medical Records Department [address] [place] [address] Consultation - Surgical 07/29/23 1715 MR#: [id number] Acct: [id number] Name: KIKO GODFREY Rep #:[id number] : 1950 73 From: Glenna SIMPSON PCP: Dr. Eric Lozano MD Status:ADM IN Location: [facility] VOU645- 1 Assessment & Plan Assessment/Plan (1) Bilateral [...] with her R leg to get around. [facility] Medical History (Updated 07/29/23 @ 17:42 by [...] 74.8 H, Lymph % (Auto) 14.5 L, Hanson % (Auto) 9.3, Eos % (Auto) 0.2, [...] MD> CC: Dr. Eric Lozano MD~ [facility] Work Phone: 1(624) 688-300004-17-2024 Progress note Author Dmitry [facility] July 29, 2023 11:21pm Note Date/Time July 29, 2023 3:5 6pm [facility] Medical Records Department [address] [place] [address] Progress Note - Hospitalist 07/29/23 1556 MR#: [id number] Acct: [id number] Name: KIKO GODFREY Rep #:[id number] : 1950 73 From: Dmitry Gordon arnoldo PCP: Dr. Eric Lozano MD Status:ADM IN Location: [place] [address] Reason for Visit Reason for Visit: Diagnoses [...] 74.8 H, Lymph % (Auto) 14.5 L, Hanson % (Auto) 9.3, Eos % (Auto) 0.2, [...] Eric Lozano MD Performed By: Deon Rea [facility] Venous Doppler Study 07/29/23 07:53 Interpretation [...] 73 year old female who [facility] with shortness of breath [...] 35 minutes. Charges/Coding Visit Charges Inpatient E&M: 39384 Subs Hosp L2 07/29/23 2321 <Electronically signed by Dmitry Griggs DO> Cosigner Signature (if applicable): CC: ~ [facility] Work Phone: 1(462) 151-672204-15-2024 History and physical note Author Sophia Wang [facility] July 28, 2023 6:19pm Note Date/Time July 28, 2023 1:4 3pm [facility] Medical Records Department [address] [place] [address] H&P Exam - Hospitalist 07/28/23 1343 MR#: [id number] Acct: [id number] Name: KIKO GODFREY Rep #:[id number] : 1950 73 From: Sophia Wang MD PCP: Dr. Eric Lozano MD Status:ADM IN Location: [place] [address] HPI - General General Date of Admission: 07/28/23 Date of Service: 07/28/23 Chief Complaint: Dyspnea, chest tightness. HPI Narrative The patient is a 73 y/o F w/ PMHx: Chart reported Hx Schizophrenia/Anxiety and Depression, Rheumatoid arthritis, HTN, COPD, GERD, Chronic anemia/Fe deficiency anemia, Hx TIA, Obesity, PSVT s/p RFA, Former tobacco use who presents to the [facility] ED on 07/28/23 with history of [...] x 1 and started on heparin drip. [facility] Medical History (Updated 07/28/23 @ 18:13 by [...] (Auto) 77.4 H, Lymph % (Auto) 13.0 L,Hanson % (Auto) 8.3, Eos % (Auto) 0.1, [...] Former tobacco use who presents to the [facility] ED on 07/28/23 with history of [...] 16 minutes. Charges/Coding Visit Charges Inpatient E&M: 00651 Init Hosp L3 Procedures Hospitalists Procedures: 24508 Advncd Care Plan 30 Min 07/28/23 5900 <Electronically signed by Sophia Wang MD> Cosigner Signature (if applicable): CC: Dr. Sophia Wang MD; Dr. Eric Lozano MD~ [facility] Work Phone: 1([phone]) 736-522404-15-2024 Discharge summary Author Eric West [facility] July 28, 2023 3:51pm Note Date/Time July 28, 2023 11: 59am [facility] Medical Records Department [address] [place] [address] Emergency Department Summary 07/28/23 MR#: [id number] Acct: [id number] Name: KIKO GODFREY Rep #:[id number] : 1950 73 From: Eric Chavez PCP: Dr. Eric Lozano MD Status:ADM IN Location: [place] [address] HPI History of Present Illness Chief Complaint: [...] or PE, Recent surgery or Recent travel [facility] Medical History Cholelithiasis with chronic cholecystitis COPD [...] 77.4 H Lymph % (Auto) 13.0 L Hanson % (Auto) 8.3 Eos % (Auto) 0.1 [...] sinus rhythm with a rate of 79. VA interval, QRS interval, and QTc intervals were all normal. Batson was normal. There are nonspecific ST-T wave [...] (BMI 30-39.9) Disposition Disposition: Acute Care Hospital [facility] What to do if you have Problems For any increased pain, shortness of breath, bleeding, nausea or vomiting, chestpain, or any unexpected problems, contact your Primary Care Provider. Call [facility] ([phone]) or report to the closest Emergency Room. Call 911 if necessary. 07/28/23 3500 <Electronically signed by Eric West DO> Cosigner Signature (if applicable): CC: Dr. Eric Lozano MD ~ [facility] Work Phone: 1(973) 876-558402-17-2024 Hospital Discharge instructions Additional Instructions Ice your ankle for 15 to 20 minutes at a time several times a day for the next few days. Follow-up with [facility]opedics[facility] Work Phone: 1(649) 745-684811-14-2023 History of Present illness Narrative* Shawna Florence, [...] 25, 2023 11:07 AM documented in this encounterBlanchard Valley [facility]10-31-2023 Instructions* Patient Instructions* Marek Chauhan - 02/11/2023 9:08 AM EDT You have fracture of right 2nd toe. Continue with post-op shoe (surgical) or firm sole sneaker Repeat xrays in 2 weeks documented in this encounterBlanchard Valley Health System [facility]10-31-2023 History of Present illness Narrative* Marek [...] proximal phalanx and compression fractureof dipj ASSESSMENT: (S92.262O) Closed nondisplaced fracture of proximal phalanx of lesser toe of right foot, initial encounter PLAN: 1. History and physical examination performed. 2. XR reviewed with patient and interpreted today 3. Discussed fracture of right 2nd toe. Continue with post-op shoe or firm sole sneaker 4. Repeat xrays in 2 weeks Marek Chauhan DPM Podiatry [address] [facility] [address] Dept: [phone] Dept * Shanti Lozano LPN - 02/11/2023 8:43 AM EDT AMB ROOMING INTAKE FLOWSHEET DATA Pain Pain Level: 6 Pain Location: Toe Description: Burning Duration Amount of Time: 3 Duration Units: Weeks Frequency: Continuous Intervention/Comfort measure: Reposition, Relaxation, Medication Patient presents with: Right Foot - New, Pain, Fracture, Swelling Shanti Lozano LPN \ documented in this encounterBlanchard Valley Health System [facility]10-18-2023 Instructions* Patient Instructions* Ronaldo Russo APRN.CNP - 01/29/2023 1:12 PM EDT ASSESSMENT/PLAN: 1. Closed nondisplaced fracture of proximal phalanx of lesser toe of right foot, initial encounter - ICD9: 826.0, ICD10: S92.514A (primary diagnosis) Post op shoe provided Pain relief/otc Will schedule follow up with podiatry Follow up for worsening symptoms. - CONSULT TO PODIATRY documented in this encounterBlanchard Valley Health System [facility]10-18-2023 History of Present illness Narrative* Ronaldo [...] digit. Dictated by : MD Ronaldo MUSTAFA APRN.BLOOD BANK CREDIT CLERK documented in this encounterBlanchard Valley Health System [facility]10-18-2023 History of Present illness Narrative* Marcelo [...] 29, 2023 12:34 PM documented in this encounterBlanchard Valley Health System [facility]09-11-2023 History of Present illness Narrative* Ronaldo [...] TABLET Ronaldo Russo APRN.JARED documented in this encounterBlanchard Valley Health System [facility]06-15-2023 Miscellaneous Notes* Telephone Encounter - Homa Bhat MA - 09/26/2022 7:54 PM EDT Pt was notified of the results. Pt verbalized understanding. Homa Bhat MA * Telephone Encounter - Anny Roach APRN.CNP - 09/26/2022 6:40 PM EDT Negative for COVID and flu please notify thank you documented in this encounterBlanchard Valley Health System [facility]06-15-2023 Instructions* Patient Instructions* Faisal Mancini APRN.JARED [...] or concerning to you. documented in this encounterBlanchard Valley Health System [facility]06-15-2023 History of Present illness Narrative* Faisal [...] of care. This note was generated using SameGrain software. It may contain errors in wording, punctuation, or spelling. Faisal Mancini APRN.JARED documented in this encounterBlanchard Valley Health System [facility]05-04-2023 History of Present illness Narrative* Ronaldo [...] CAPSULE - PREDNISONE 20 MG TABLET Ronaldo Rusos APRN.CNP documented in this encounterBlanchard Valley Health System [facility]12-31-2022 Instructions* Patient Instructions* Ronaldo Russo APRN.CNP [...] breath go to ER documented in this encounterBlanchard Valley Health System [facility]12-31-2022 History of Present illness Narrative* Ronaldo [...] TABLET Ronaldo Russo APRN.JARED documented in this encounterBlanchard Valley Health System [facility]12-02-2022 Miscellaneous Notes* Telephone Encounter - Aide [...] 5 days of symptoms. documented in this encounterBlanchard Valley Health System [facility]12-01-2022 History of Present illness Narrative* Anny Roach APRN.BLOOD BANK CREDIT CLERK - 03/14/2022 9:59 AM EST CC: Patient [...] plan. Anny Roach APRN.JARED documented in this encounterBlanchard Valley Health System [facility]06-03-2022 History of Present illness Narrative* Anny [...] plan. Anny Roach APRN.JARED documented in this encounterBlanchard Valley Health System [facility]05-27-2022 History of Present illness Narrative* Anny [...] plan. Anny Roach APRN.JARED documented in this encounterBlanchard Valley Health System [facility]02-04-2022 History of Present illness Narrative* Marcelo [...] 18, 2021 4:14 PM documented in this encounterBlanchard Valley Health System [facility]09-10-2021 History of Present illness Narrative* Shawna Laird RT(Fabrice) - 12/22/2020 10:40 AM EDT Radiology Service [...] 22, 2020 10:57 AM documented in this encounter[address] History of Past illness Narrative* Problem Noted Date Resolved Date Abnormality of gait 07/15/2007 07/15/2007 documented as of this encounter (statuses as of 09/07/2021) [address]02[address] History of Past illness Narrative* Problem Noted Date Resolved Date Abnormality of gait 07/15/2007 07/15/2007 documented as of this encounter (statuses as of 09/14/2021) [address] History of Past illness Narrative* Problem Noted Date Resolved Date Abnormality of gait 07/15/2007 07/15/2007 documented as of this encounter (statuses as of 03/14/2022) [address] History of Past illness Narrative* Problem Noted Date Resolved Date Abnormality of gait 07/15/2007 07/15/2007 documented as of this encounter (statuses as of 03/15/2022) [address] History of Past illness Narrative* Problem Noted Date Resolved Date Abnormality of gait 07/15/2007 07/15/2007 documented as of this encounter (statuses as of 04/18/2022) [address] History of Past illness Narrative* Problem Noted Date Resolved Date Abnormality of gait 07/15/2007 07/15/2007 documented as of this encounter (statuses as of 08/16/2022) [address] History of Past illness Narrative* Problem Noted Date Resolved Date Abnormality of gait 07/15/2007 07/15/2007 documented as of this encounter (statuses as of 09/26/2022) [address]02[address] History of Past illness Narrative* Problem Noted Date Resolved Date Abnormality of gait 07/15/2007 07/15/2007 documented as of this encounter (statuses as of 09/27/2022) [address] History of Past illness Narrative* Problem Noted Date Diagnosed Date Resolved Date Abnormality of gait 07/15/2007 07/15/19 08 documented as of this encounter (statuses as of 12/23/2022) [address] History of Past illness Narrative* Problem Noted Date Diagnosed Date Resolved Date Abnormality of gait 07/15/2007 07/15/19 08 documented as of this encounter (statuses as of 01/29/2023) [facility] History of Past illness Narrative* Problem Noted Date Diagnosed Date Resolved Date Abnormality of gait 07/15/2007 07/15/19 08 documented as of this encounter (statuses as of 02/11/2023) [facility] History of Past illness Narrative* Problem Noted Date Diagnosed Date Resolved Date Abnormality of gait 07/15/2007 07/15/19 08 documented as of this encounter (statuses as of 02/26/2023) [facility] Valley HospitalConsult note Author Elise [facility] July 31, 2023 2:37pm Note Date/Time July 31, 2023 2:3 7pm [facility] Medical Records Department [address] [place] [address] Counseling Note - Pharmacy 07/31/23 1437 MR#: [id number] Acct: [id number] Name: KIKO GODFREY Rep #:[id number] : 1950 73 From: Elise Eisenberg PCP: Dr. Eric Lozano MD Status:ADM IN Y Location: [place] [id number] 1 Pharmacy [facility] Pharmacy Service has performed discharge medication [...] Signature (if applicable): Date CC: ~ [facility]igned [facility] Work Phone: Discharge summary Author Gladis [facility] Note Date/Time June 28, 2024 12: 38pm [facility] Medical Records Department [address] [place] [address] Emergency Department Summary 06/28/24 MR#: [id number] Acct: [id number] Name: KIKO GODFREY Rep #:[id number] : 1950 74 From: Gladis Chavez PCP: Dr. Eric Lozano MD Status:[facility] ER Location: ED HPI History [...] complaints or concerns reported at this time. [facility] Medical History Anxiety and depression Schizophrenia Rheumatoid [...] 70.5 H Lymph % (Auto) 18.4 L Hanson % (Auto) 9.0 Eos % (Auto) 0.7 [...] 2. Additional description as above. Reading Location: [facility] Rhythm Strip Rhythm Strip: Sinus Rhythm [...] for cough or chest tightness Print Language: Syriac What to do if you have Problems For any increased pain, shortness of breath, bleeding, nausea or vomiting, chestpain, or any unexpected problems, contact your Primary Care Provider. Call [facility] ([phone]) or report to the closest Emergency Room. Call 911 if necessary. 06/28/24 1238 <Electronically signed by Gladis Moralez DO> Cosigner Signature (if applicable): CC: Dr. Eric Lozano MD ~ [facility]igned [facility] Work Phone: Evaluation noteNo assessment information available [facility] Work Phone: Evaluation note* Diagnosis Cough- Primary [facility]* Diagnosis Cough- Primary [facility]* Diagnosis Onset Date Resolution Status Essential hypertension chron ic Paroxysmal supraventricular tachycardia chronic [facility] Work Phone: Evaluation note* Diagnosis URI, acute- Primary Acute upper respiratory infections of unspecified site documented in this encounter [facility]* Diagnosis Sinobronchitis- Primary Unspecified sinusitis (chronic) documented in this encounter [facility]* Diagnosis Pain in salivary gland region- Primary documented in this encounter [facility]* Diagnosis Acute cough- Primary Viral illness Unspecified viral infection, in conditions classified elsewhere and of unspecified site Suspected COVID-19 virus infection documented in this encounter [facility]* Diagnosis Lower resp. tract infection- Primary Other diseases of respiratory system, not elsewhere classified documented in this encounter [facility]* Diagnosis Closed nondisplaced fracture of proximal phalanx of lesser toe of right foot, initial encounter- Primary Toe injury, right, initial encounter [facility] Diagnosis Closed nondisplaced fracture of proximal phalanx of lesser toe of right foot, initial encounter documented in this encounter [facility]* Diagnosis Closed nondisplaced fracture of proximal phalanx of lesser toe of right foot, initial encounter documented in this encounter [facility]* Diagnosis Onset Date Resolution Status Bilateral pulmonary embolism acute Elevated troponin acute Obesity (BMI 30-39.9) chroni c [facility] Work Phone: Evaluation note* Diagnosis Onset Date Resolution Status Acute deep vein thrombosis ( DVT) of left lower extremity acute Bilateral pulmonary embolism acute Elevated troponin acute Obesity (BMI 30-39.9) chroni c [facility] Work Phone: Evaluation note* Diagnosis Onset Date Resolution Status Acute deep vein thrombosis ( DVT) of left lower extremity acute Bilateral pulmonary embolism acute Elevated troponin resolved Acute deep vein thrombosis ( DVT) of left lower extremity acute Bilateral pulmonary embolism acute [facility] Work Phone: Evaluation note* Diagnosis Acute cough- Primary URI, acute Acute upper respiratory infections of unspecified site Acute cough [facility]* Diagnosis Acute cough documented [facility]* Diagnosis Acute cough [facility]* Diagnosis Toe injury, left, initial encounter [facility] this [facility]* Diagnosis URI, acute Acute upper respiratory infections of unspecified site documented [facility] encounter [facility]* Diagnosis Acute cough- Primary Viral bronchitis Acute bronchitis documented [facility] encounter [facility]* Diagnosis Bacterial sinusitis- Primary Unspecified sinusitis (chronic) documented [facility]* Diagnosis Onset Date Resolution Status Admit Date Right ventricular dilation, secondary acute January 04, 2025 9:18am Essential hypertension chronic Se pt2024 9:18am Paroxysmal supraventricular tachycardia chronic January 04, 2025 9:18am [facility] Work Phone: Hospital Discharge instructions Additional [...] hours as needed for cough or chest tightnessWCleveland [facility] Work Phone: Progress note Author Beatrice Sifuentes [facility] Note Date/Time January 04, 2025 9:46am [facility] 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 Follow Up: 1 Year (CHANGE MANAGEMENT DIRECTOR) Coding Level of Care Code Off vis,est,level [...] applicable) CC: Dr. Eric Lozano MD ~ [facility] Work Phone: [facility] for referral (narrative)* Diagnostic Procedure Only (Routine) - Pending Review Specialty Diagnoses / Procedures Referred By Contac t Referred To Contact XR IMAGING Diagnoses Closed nondisplaced fracture of proximal phalanx of lesser toe of right foot, initial encounter Procedures XR TOE AP/LAT/OBL RIGHT RADEX TOE MINIMUM 2 VIEWS Marek Chauhan [address] [place] [address] [place] [address] Referral ID Status Reason Start Date Expiration Date Visits Requested Visits Authorized [id number] Pending Review Auto-Generat ed Referral 3 03/12/2024 1 1 [facility] for referral (narrative)* Diagnostic Procedure Only (Urgent) - Closed Specialty Diagnoses / Procedures Referred By Contac t Referred To Contact XR IMAGING Diagnoses Toe injury, left, initial encounter Procedures XR TOE AP/LAT/OBL LEFT RADEX TOE MINIMUM 2 VIEWS Vianey Chamberlain, OLIVIA.BLOOD BANK CREDIT CLERK [address] [place] [address] [place] [address] Referral ID Status Reason Start Date Expiration Date V isits Requested Visits Authorized [id number] Closed Auto-Generate d Referral 05/18/2021 06/17/2022 1 1 [facility] for referral (narrative)No reason for referral information availableWCleveland Clinic [facility]: [facility] Narrative* Diagnostic Procedure Only (Routine) - Closed Specialty Diagnoses / Procedures Referred By Contac t Referred To Contact XR IMAGING Diagnoses Closed nondisplaced fracture of proximal phalanx of lesser toe of right foot, initial encounter Procedures XR TOE AP/LAT/OBL RIGHT RADEX TOE MINIMUM 2 VIEWS Marek Chauhan [address] [place] [address] [place] [address] Referral ID Status Reason Start Date Expiration Date V isits Requested Visits Authorized [id number] Closed Auto-Generate d Referral 02/11/2023 03/12/2024 1 1 [facility] for visit Narrative* Diagnostic Procedure Only (Urgent) - Closed Specialty Diagnoses / Procedures Referred By Contac t Referred To Contact XR IMAGING Diagnoses Toe injury, right, initial encounter Procedures XR TOE AP/LAT/OBL RIGHT RADEX TOE MINIMUM 2 VIEWS Ronaldo Russo APRN.BLOOD BANK CREDIT CLERK [address] [place] [address] [place] [address] Referral ID Status Reason Start Date Expiration Date V isits Requested Visits Authorized [id number] Closed Auto-Generate d Referral 01/29/2023 02/28/2024 1 1 [facility] for visit Narrative* Diagnostic Procedure Only (Urgent) - Closed Specialty Diagnoses / Procedures Referred By Contac t Referred To Contact XR IMAGING Diagnoses Toe injury, left, initial encounter Procedures XR TOE AP/LAT/OBL LEFT RADEX TOE MINIMUM 2 VIEWS Vianey Chamberlain APRN.BLOOD BANK CREDIT CLERK [address] [place] [address] [place] [address] Referral ID Status Reason Start Date Expiration Date V isits Requested Visits Authorized [id number] Closed Auto-Generate d Referral 05/18/2021 06/17/2022 1 1 [facility] Advance Directives No Advanced Directives Records Found Advance Directive Response Recorded Date/ Time Advance Directives No September 18 4:04pm Living Will No July 30, 2020 12:06pm Power of Sales Recruiter No July 30 12:06pm Advance Directive Response Recorded Date/ Time Advance Directives No September 18 4 3:04pm Living Will No July 30, 2020 11:06am Power of Sales Recruiter No July 30 11:06am Advance Directive Response Recorded Date/ Time Advance Directives No September 18 4 3:04pm Living Will No May 31 2:54pm Power of Sales Recruiter No May 31, 2023 2:54pm Advance Directive Response Recorded Date/ Time Advance Directives No September 18 4:04pm Living Will No July 28, 2023 11:36am Power of Sales Recruiter No July 27 11:36am Advance Directive Response Recorded Date/ Time Advance Directives No September 18 4:04pm Living Will No July 28, 2023 3:29pm Power of Sales Recruiter No July 27 3:29pm Advance Directive Response Recorded Date/ Time Advance Directives No June 22 8:29am Living Will No March 31 12:17pm Power of Sales Recruiter No March 31, 2024 12:17pm Living Will Yes June 28, 2024 9:25am Power of Sales Recruiter Yes June 28 9:25am Name of Medical Power of Sales Recruiter ? June 28, 2024 9:25am Advance Directive Response Recorded Date/ Time Advance Directives No June 22 8:29am Living Will No March 31 12:17pm Do you have a Healthcare Power of Sales Recruiter? No March 31, 2024 12:17pm Living Will Yes June 28, 2024 9:25am Do you have a Healthcare Power of Sales Recruiter? Yes June 28, 2024 9:25am Name of Medical Power of Sales Recruiter ? June 28, 2024 9:25am Advance Directive Response Recorded Date/ Time Advance Directives No June 22 8:29am Living Will Yes June 28, 2024 9:25am Do you have a Healthcare Power of Sales Recruiter? Yes June 28, 2024 9:25am Name of Medical Power of Sales Recruiter ? June 28, 2024 9:25am Advance Directive Response Recorded Date/ Time Living Will Yes June 28, 2024 9:25am Do you have a Healthcare Power of Sales Recruiter? Yes June 28, 2024 9:25am Name of Medical Power of Sales Recruiter ? June 28, 2024 9:25am Advance Directives No June 22 8:29am Advance Directive Response Recorded Date/ Time Living Will No September 06, 2023 9 :42am Do you have a Healthcare Power of Sales Recruiter? No September 06, 2023 9:42am Advance Directives [...] Chief Complaint Admit Date HX NICOTINE DEPENDENCE Garrison 18th, 20 24 9:40am COPD EXACERBATION March 31, 2024 10:32am [...] initial encounter Procedures CONSULT TO PODIATRY OFFICE/OUTPATIENT [facility] 60-74 MINUTES Ronaldo Russo APRN.BLOOD BANK CREDIT CLERK [address] [place] [address] Referral ID Status Reason Start Date Expiration Date Visits Requested Visits Authorized [id number] Authorized PCP Requested Referral 3 01/29/2024 1 1 Specialty Diagnoses / Procedures Referred By Quentin guerrero Referred To Contact XR IMAGING Diagnoses Toe injury, right, initial encounter Procedures XR TOE AP/LAT/OBL RIGHT RADEX TOE MINIMUM 2 VIEWS Ronaldo Russo APRN.BLOOD BANK CREDIT CLERK [address] [place] [address] [place] [address] Referral ID Status Reason Start Date Expiration Date V isits Requested Visits Authorized [id number] Closed Auto-Generate d Referral 01/29/2023 02/28/2024 1 [...] or drug abuse patient.[facility] the event this information is protected by the Federal Confidentiality of Alcohol and Drug Abuse Patient Records regulations: The Federal rules restrict any use of the information to criminally investigate or prosecute any alcohol or drug abuse patient.[facility] the event this information is protected by the Federal Confidentiality of Alcohol and Drug Abuse Patient Records regulations: The Federal rules restrict any use of the information to criminally investigate or prosecute any alcohol or drug abuse patient.[facility] the event this information is protected by the Federal Confidentiality of Alcohol and Drug Abuse Patient Records regulations: The Federal rules restrict any use of the information to criminally investigate or prosecute any alcohol or drug abuse patient.[facility] the event this information is protected by the Federal Confidentiality of Alcohol and Drug Abuse Patient Records regulations: The Federal rules restrict any use of the information to criminally investigate or prosecute any alcohol or drug abuse patient.[facility]In the event this information is protected by the Federal Confidentiality of Alcohol and Drug Abuse Patient Records regulations: The Federal rules restrict any use of the information to criminally investigate or prosecute any alcohol or drug abuse patient.[facility]In the event this information is protected by the Federal Confidentiality of Alcohol and Drug Abuse Patient Records regulations: The Federal rules restrict any use of the information to criminally investigate or prosecute any alcohol or drug abuse patient.[facility] the event this information is protected by the Federal Confidentiality of Alcohol and Drug Abuse Patient Records regulations: The Federal rules restrict any use of the information to criminally investigate or prosecute any alcohol or drug abuse patient.[facility] the event this information is protected by the Federal Confidentiality of Alcohol and Drug Abuse Patient Records regulations: The Federal rules restrict any use of the information to criminally investigate or prosecute any alcohol or drug abuse patient.[facility] the event this information is protected by the Federal Confidentiality of Alcohol and Drug Abuse Patient Records regulations: The Federal rules restrict any use of the information to criminally investigate or prosecute any alcohol or drug abuse patient.[facility] the event this information is protected by the Federal Confidentiality of Alcohol and Drug Abuse Patient Records regulations: The Federal rules restrict any use of the information to criminally investigate or prosecute any alcohol or drug abuse patient.[facility] the event this information is protected by the Federal Confidentiality of Alcohol and Drug Abuse Patient Records regulations: The Federal rules restrict any use of the information to criminally investigate or prosecute any alcohol or drug abuse patient.[facility]In the event this information is protected by the Federal Confidentiality of Alcohol and Drug Abuse Patient Records regulations: The Federal rules restrict any use of the information to criminally investigate or prosecute any alcohol or drug abuse patient.[facility]In the event this information is protected by the Federal Confidentiality of Alcohol and Drug Abuse Patient Records regulations: The Federal rules restrict any use of the information to criminally investigate or prosecute any alcohol or drug abuse patient.[facility]In the event this information is protected by the Federal Confidentiality of Alcohol and Drug Abuse Patient Records regulations: The Federal rules restrict any use of the information to criminally investigate or prosecute any alcohol or drug abuse patient.[facility]In the event this information is protected by the Federal Confidentiality of Alcohol and Drug Abuse Patient Records regulations: The Federal rules restrict any use of the information to criminally investigate or prosecute any alcohol or drug abuse patient.[facility]In the event this information is protected by the Federal Confidentiality of Alcohol and Drug Abuse Patient Records regulations: The Federal rules restrict any use of the information to criminally investigate or prosecute any alcohol or drug abuse patient.[facility]In the event this information is protected by the Federal Confidentiality of Alcohol and Drug Abuse Patient Records regulations: The Federal rules restrict any use of the information to criminally investigate or prosecute any alcohol or drug abuse patient.[facility] HospitalIn the event this information is protected by the Federal Confidentiality of Alcohol and Drug Abuse Patient Records regulations: The Federal rules restrict any use of the information to criminally investigate or prosecute any alcohol or drug abuse patient.[facility]In the event this information is protected by the Federal Confidentiality of Alcohol and Drug Abuse Patient Records regulations: The Federal rules restrict any use of the information to criminally investigate or prosecute any alcohol or drug abuse patient.[facility] HospitalIn the event this information is protected by the Federal Confidentiality of Alcohol and Drug Abuse Patient Records regulations: The Federal rules restrict any use of the information to criminally investigate or prosecute any alcohol or drug abuse patient.[facility] Reason for Visit (unrecogniz ed section [...] PODIATRY OFFICE/OUTPATIENT NEW HIGH MDM 60-74 MINUTES Ronaldo Russo APRN.BLOOD BANK CREDIT CLERK [address] [place] [address] Referral ID Status Reason Start Date Expiration Date V isits Requested Visits Authorized [id number] Closed PCP Requested Referral 01/29/2023 01/29/2024 1 1 Reason Comments Chest Congestion cough x 3 days Reason Comments Chest Congestion SMALLS, cough, lungs fee l like they are on fire x 2 days Reason Comments Sinus Problem Chest congestion, co ugh, green mucus, SMALLS x 2 weeks Care Teams (unrecognized sec tion and content) Magazine Filler Relationship Specialty Start Date End Date Eric Lozano MD [address] [place] [address] PCP - General Family Practice 12/22/20 Magazine Filler Relationship Specialty Start Date End Date Eric Lozano MD [address] [facility] [place] [address] PCP - General Family Practice 12/22/20 Magazine Filler Relationship Specialty Start Date End Date Eric Lozano MD [address] [place] [address], [place] [address] PCP - General Family Medicine 12/22/20 Magazine Filler Relationship Specialty Start Date End Date Eric Lozano MD [address] [place] [address], [place] [address] PCP - General Family Medicine 12/22/20 Magazine Filler Relationship Specialty Start Date End Date Eric Lozano MD [address] [place] [address], [place] [address] PCP - General Family Medicine 12/22/20 Team [...] MD Primary Care Provider Active Yudy Angel MAINTAINER CENTRAL OFFICE, MAINTAINER CENTRAL OFFICE-C Attending Provider Active Magazine Filler Relationship Specialty Start Date End Date Eric Lozano MD [address] [place] [address] [place] [address] PCP - General Family Medicine 12/22/20 Magazine Filler Relationship Specialty Start Date End Date Eric Lozano MD [address] [place] [address], [place] [address] PCP - General Family Medicine 12/22/20 Magazine Filler Relationship Specialty Start Date End Date Eric Lozano MD [address] [place] [address], [place] [address] PCP - General Family Medicine 12/22/20 Team Status: Inactive Member Role Status Dates Dr. Eric Lozano MD Primary Care Provider, Attending P rovider Active Dr. Sheeba Velacso MD Other Provider Active Team Status: Inactive Member Role Status Dates Dr. Eric Lozano MD Primary Care Provider, Referring P rovider Active Jennifer Angulo MAINTAINER CENTRAL OFFICE, MAINTAINER CENTRAL OFFICE-C Attending Provider Active Team Status: Inactive Member Role Status Dates Dr. Eric Lozano MD Primary Care Provider Active Yudy Angel MAINTAINER CENTRAL OFFICE, MAINTAINER CENTRAL OFFICE-C Attending Provider, Referring Pro vider Active Magazine Filler Relationship Specialty Start Date End Date Eric Lozano MD [address] [place] [address], [place] [address] PCP - General Family Medicine 12/22/20 Magazine Filler Relationship Specialty Start Date End Date Eric Lozano MD [address] [place] [address], [place] [address] PCP - General Family Medicine 12/22/20 Magazine Filler Relationship Specialty Start Date End Date Eric Lozano MD [address] [place] [address], [place] [address] PCP - General Family Medicine 12/22/20 Magazine Filler Relationship Specialty Start Date End Date Eric Lozano MD [address] [place] [address], [place] [address] PCP - General Family Medicine 12/22/20 Team Status: Inactive Member Role Status Dates Dr. Eric Lozano MD Primary Care Provider Active Dr. Yazan Brito DO Emergency Provider Active Team Status: Inactive Member Role Status Dates Dr. Eric Lozano MD Primary Care Provider Active Joseluis SIMPSON PA-C Attending Provider, Referring Pr ovider Active [...] Jorje Cooley MD Other Provider Active Dr. Cadnelario Temple MD Other Provider Active Team Status: [...] Donell Ray MD Other Provider Active Dr. Amnauel Wheeler , Attending Provider, Other Provide r [...] Saab Attending Provider, Referring Provid er Active Magazine Filler Relationship Specialty Start Date End Date Eric Lozano MD [address] [place] [address] PCP - General Family Medicine 12/22/20 Magazine Filler Relationship Specialty Start Date End Date Eric Lozano MD [address] [place] [address] PCP - General Family Medicine 12/22/20 Magazine Filler Relationship Specialty Start Date End Date Eric Lozano MD [address] [place] [address] PCP - General Family Medicine 12/22/20 Magazine Filler Relationship Specialty Start Date End Date Eric Lozano MD [address] [place] [address] PCP - General Family Medicine 12/22/20 Magazine Filler Relationship Specialty Start Date End Date Eric Lozano MD [address] [place] [address] PCP - General Family Medicine 12/22/20 Magazine Filler Relationship Specialty Start Date End Date Eric Lozano MD [address] [place] [address] PCP - General Family Medicine 12/22/20 Magazine Filler Relationship Specialty Start Date End Date Eric Lozano MD [address] [place] [address], [place] [address] PCP - General Family Medicine 12/22/20 Magazine Filler Relationship Specialty Start Date End Date Eric Lozano MD [address] [place] [address], [place] [address] PCP - General Family Medicine 12/22/20 Magazine Filler Relationship Specialty Start Date End Date Eric Lozano MD [address] [place], [place] [address] PCP - General [facility] Medicine 12/22/20 Team Status: Active Member Role Status Dates Dr. Eric Lozano MD Primary Care Provider Active Team Status: Inactive Member Role Status Dates Dr. Eric Lozano MD Primary Care Provider Active Start: March 31, 2024 End: March 31, 2024 Yudy Angel MAINTAINER CENTRAL OFFICE, MAINTAINER CENTRAL OFFICE-C Attending Provider Active S tart: March 31, 2024 End: March 31, 2024 Yudy Angel MAINTAINER CENTRAL OFFICE, MAINTAINER CENTRAL OFFICE-C Referring Provider Active S tart: March 31, [...] 04, 2025 End: January 04, 2025 Beatrice Sifuentes PA, PA Attending physician Active Start: January 04, [...] section and content) DATE CREATED AUTHOR 01/15/2025 [facility] DATE CREATED AUTHOR AUTHOR'S ORGANIZ ATION 02/22/2025 [facility] FOR RECORDS PERTAINING TO PATIENTS WHO [...] BE BASED ON THE PRIMARY CLINICAL RECORDS. [employer] provides no warranty or guarantee of the accuracy or completeness of information in this document.
--- NOTE | 2025-03-31 08:29 | PCM.OP.PRO2 ---
Bedside Procedural Bedside Procedure Information Date of Procedure: 03/31/25 Pre-Procedure Diagnosis: Atrial fibrillation Post-Procedure Diagnosis: Atrial fibrillation Procedure Performed:: DC cardioversion driller operator: No Procedure Time Out: Procedure Start Time: Procedure Stop Time: Special Medications: Intravenous propofol 40 mg Description of procedure: Patient was brought to the cardiac catheterization lab in the postabsorptive nonsedated state. Informed consent was obtained. Anterior-posterior pads were applied. The patient was then administered 40 mg of intravenous propofol and then 200 J of synchronized DC biphasic cardioversion energy were applied with conversion to sinus rhythm. Patient tolerated the procedure well. Procedure findings: Successful DC cardioversion from atrial fibrillation to sinus rhythm.
== END 2025-03-31 09:20 | disposition home or self-care (01) ==
PROVIDERS: Physician Assistant Medical; PCP Family Medicine; Referring Provider Internal Medicine Cardiovascular Disease; Visit Provider Internal Medicine Cardiovascular Disease
DX: I48.91 Unspecified atrial fibrillation (principal); J44.9 Chronic obstructive pulmonary disease, unspecified; I10 Essential (primary) hypertension; Z79.01 Long term (current) use of anticoagulants; Z79.899 Other long term (current) drug therapy; K21.9 Gastro-esophageal reflux disease without esophagitis; Z87.891 Personal history of nicotine dependence; R94.31 Abnormal electrocardiogram [ECG] [EKG]; I47.10 Supraventricular tachycardia, unspecified; I51.7 Cardiomegaly
CPT/HCPCS: 36415; 71046; 80048; 92960; 93005